=== PATIENT | female | born 1985 | race Caucasian/White ===

== ENCOUNTER 2023-05-24 09:55 | Outpatient (OUT) | payer MEDICARE, MEDICAID, SELFPAY ==
--- NOTE | 2023-05-24 10:14 | P.CN_ITS ---
Consult Note: HPI Data of Consult Patient: known to practice within the last 3 years Requesting Physician: Michelle Randhawa NP Primary Care Provider: CAITLYN SPARROW Consult Narrative Reason for consult: f/u Narrative: Marita Messina a pleasant 37 year old female presents for evaluation of chronic neck and back pain. Today rating pain 5-6/10. Patient has tried and failed OTC medications, home based exercise program and cervical traction. Patient would like to discuss repeat cervical RFA and further assess her back pain. cc:: CC: Michelle Randhawa NP Review of Systems ROS Status of ROS 10 or more systems reviewed and unremarkable except as noted in history and below Musculoskeletal Reports: back pain and neck pain Exam Constitutional Documenting provider has reviewed patient's vital signs: yes Common normals: no apparent distress, oriented x3, healthy appearing, alert and well nourished General appearance: cooperative HENMT Common normals: normocephalic, hearing grossly normal bilaterally and moist oral mucous membranes Head and scalp: normocephalic Eye Common normals: PERRL Pupil: PERRL Neck & C-Spine Common normals: full ROM General: normal visual inspection Cervical spine: pain with cervical ROM, paracervical muscle tenderness and trapezius muscle tenderness Other: pain with flexion extension and rotation axial neck pain without radiculopathy Chest Common normals: inspection of chest normal Respiratory Common normals: normal respiratory effort, no retractions and no use of accessory muscles Back & Pelvis Lumbar spine/lower back: ROM limited and straight leg raise negative bilaterally Other: bilateral facet loading positive no radiculopathy predominately axial back pain Back image (female): 1. Extremity Common normals: normal to inspection and full ROM Neuro Common normals: oriented x3, CN's II-XII intact bilaterally, moves all extremities, no focal motor deficits, no sensory deficits noted and deep tendon reflexes 2+ bilaterally Sensorium/orientation: alert Motor exam: strength 5/5 throughout and no movement abnormalities noted Psych Common normals: mental status grossly normal, thought process normal, cooperative, affect normal, speech normal and activity/motor behavior normal Speech: normal speech Thought process: normal thought process Results Additional Findings Additional findings: I have checked an [place] report on this patient today and there are no aberrancies noted in the prescribing history.?? A drug screen was completed and reviewed within the last year, and if there has not been a drug screen completed we ordered one today to monitor higher risk, state monitored pain medication use. As part of providing excellent, safe, comprehensive care, the following was completed at our patient's visit: 1. A medication reconciliation and review to ensure accurate knowledge of current/active medications, including asking our patients to inform us about any [id number] medications or herbal remedies/nutritional supplements/alternative remedies. 2. A review to specifically ensure our patients have had annual screening for: elevated body mass index (BMI), tobacco use, screening for depression, and sc reening for unhealthy alcohol use. When screening is concerning, patients are provided with education and the specific recommendation to discuss the concerning health issue and treatment options with their primary care provider. The patient has had over 3 months of moderate to severe neck pain with functional impairment and inadequate response to conservative care including NSAIDS (unless there are contraindication such as concurrent blood thinners), multiple oral or topical pain medications, and home exercise program/physical therapy.? Patient has completed >6 weeks of guided home exercise program and/or formal physical therapy program without relief of their symptoms.? The Oswestry Disability Index was completed, and the patient scored a 20%.? The patient noted the following:?? moderate pain, pain that prevents her from lifting heavy weights, pain that interferes with sleep and social life We discussed the risks and benefits of the procedure with the patient, and we are NOT planning on using sedation as outlined in the guidelines from Medicare unless there is a documented reason that sedation would be strongly recommended.?? ?The procedure will be completed with fluoroscopic guidance.? Assessment and Plan Assessment and Plan (1) History of depression: (2) BMI 31.0-31.9,adult: Assessment and Plan: The patient was counseled that proper dietary changes and consistent participation in a home exercise plan can lead to weight loss. Weight loss can help to improve functionality in patients with chronic pain.? (3) Neck pain: (4) Low back pain: (5) Cervical spondylosis: Assessment and Plan: has previously had bilateral C3/4 5/6 RFA with >50% pain relief and functional improvement for greater than 12 months and would like to repeat this procedure (6) Lumbar spondylosis: Plan update cervical and lumbar xray imaging start diclofenac 50mg BID pain, has previously tried ibuprofen and acetaminophen without relief start baclofen 10mg QD-BID PRN muscle spasms continue HEP and stretching repeat MBB at bilateral C3/4 5/6 for axial neck pain working towards thermal RFA f/u after procedure, consider lumbar facet blocks in the future
== END 2023-05-24 09:56 | disposition home or self-care (01) ==
LOC: PM 10:02
PROVIDERS: PCP Internal Medicine; Visit Provider Nurse Practitioner
DX: M54.2 Cervicalgia (principal); M54.50 Low back pain, unspecified; M47.812 Spondylosis without myelopathy or radiculopathy, cervical region; M47.816 Spondylosis without myelopathy or radiculopathy, lumbar region; F32.A Depression, unspecified
CPT/HCPCS: G0463

== ENCOUNTER 2023-07-02 07:27 | Day surgery (SDC) | payer MEDICARE, MEDICAID, SELFPAY ==
[2023-07-02 07:38] VITALS: BP 109/79; PULSE 73; RESP 16; TEMP 36.3; O2SAT 98
[2023-07-02 08:26] VITALS: BP 107/57; PULSE 66; RESP 16; O2SAT 99
[2023-07-02] MEDS: LIDOCAINE HCL 2% PF 100 MG/5 ML VIAL INJ (08:27)
[2023-07-02] MEDS: BUPIVACAINE HCL 0.25% PF 25 MG/10 ML VIAL INJ (08:27)
[2023-07-02] MEDS: DEXAMETHASONE SOD PHOS 10 MG/ML VIAL INJ (08:27)
[2023-07-02 08:29] VITALS: BP 104/66; PULSE 64; RESP 18; O2SAT 98
--- NOTE | 2023-07-02 08:30 | W.PM.PROCNOT ---
Date of procedure: 07/02/23 Pre-op diagnosis: Cervical spondylosis Post-op diagnosis: same as pre-op Procedure: Procedure: Bilateral C3/4, C5/6 medial branch block Medications: Bupivacaine 0.25% 4cc The patient was seen and examined in the preoperative holding area.? The informed consent was obtained and placed on the chart.? The patient was brought to the medical procedure unit and placed in the prone position.? A timeout was completed verifying correct patient, procedure site, positioning, plan, and special equipment.? Using aseptic technique, the needle was placed at left C3.? Under direct fluoroscopic visualization, a Quincke tip needle was advanced to the midpoint of the waist of the articular pillar at the respective medial branch segment. The above-mentioned injectate was placed in a 1 mL aliquot proceeded by negative aspiration.? The needle was removed.? The procedure was completed at all left C4, 5, 6. The same procedure, at the same levels, was then completed on the right side. Insertion site was covered.? Patient was taken to the postprocedural recovery area and monitored for an appropriate length of time before found suitable for discharge in the accompaniment of a responsible adult. Anesthesia: Local Surgeon: Sana Radford Pathology: none sent Condition: stable Disposition: no change
== END 2023-07-02 08:33 | disposition home or self-care (01) ==
PROVIDERS: PCP Internal Medicine; Visit Provider Anesthesiology
DX: M47.812 Spondylosis without myelopathy or radiculopathy, cervical region (principal)
CPT/HCPCS: 64490; 64491; J1100

== ENCOUNTER 2024-01-16 12:28 | Outpatient (OUT) | payer MEDICARE, MEDICAID, SELFPAY ==
--- NOTE | 2024-01-16 12:54 | P.CN_ITS ---
Consult Note: HPI Data of Consult Patient: known to practice within the last 3 years Requesting Physician: Michelle Randhawa NP Primary Care Provider: CAITLYN SPARROW Consult Narrative Reason for consult: f/u Narrative: Marita Messina a pleasant 37 year old female presents for evaluation of chronic neck and back pain. Today rating pain 5/10 in neck, 7/10 in low back. Patient has tried and failed OTC medications, home based exercise program and cervical traction. Patient reporting significant improvement in pain immediately following and hours after bilateral C3/4 C5/6 MBB #1 in June of 2023 but she lost insurance and could not f/u. Since that time her back pain has been the most aggravating factor, especially with ADLs and housework. Patient would like to trial lumbar facet blocks working towards RFA for axial low back pain, recent lumbar imaging consistent with lumbar spondylosis and minimal degenerative disc changes at L5-S1. Patient finds mild benefit to current medication regimen, failed diclofenac 50mg BID PRN. cc:: CC: Michelle Randhawa NP Review of Systems ROS Status of ROS 10 or more systems reviewed and unremark able except as noted in history and below Musculoskeletal Reports: back pain and neck pain PFSH PFSH Medical History (Updated 01/16/24 @ 12:58 by Michelle Randhawa NP) Anxiety ?F41.9 - Anxiety disorder, unspecified (ICD-10) Hiatal hernia ?K44.9 - Diaphragmatic hernia without obstruction or gangrene (ICD-10) Acid reflux ?K21.9 - Gastro-esophageal reflux disease without esophagitis (ICD-10) Pulmonary embolism ?I26.99 - Other pulmonary embolism without acute cor pulmonale (ICD-10) Asthma ?J45.909 - Unspecified asthma, uncomplicated (ICD-10) Surgical History History of surgical removal of Bartholin’s gland cyst ?Z98.890 - Other specified postprocedural states (ICD-10) ?Z87.42 - Personal history of other diseases of the female genital tract (ICD-10) History of eye surgery ?Z98.890 - Other specified postprocedural states (ICD-10) Brutus teeth extracted ?K08.409 - Partial loss of teeth, unspecified cause, unspecified class (ICD- 10) History of hernia repair ?Z98.890 - Other specified postprocedural states (ICD-10) ?Z87.19 - Personal history of other diseases of the digestive system (ICD-10) History of hysterectomy ?Z90.710 - Acquired absence of both cervix and uterus (ICD-10) Meds Home Medications and Allergies Home Medications ?Medication ?Instructions ?Recorded ?Confirmed ?Type albuterol sulfate 90 mcg/actuation 2 puff inhalation Q6H PRN 06/22/23 07/02/23 History aerosol inhaler shortness of breath or wheezing armodafinil 150 mg tablet (Nuvigil) 150 mg PO QAM 06/22/23 07/02/23 History buspirone 15 mg tablet 15 mg PO BID 06/22/23 07/02/23 History cariprazine 3 mg capsule (Vraylar) 3 mg PO DAILY 06/22/23 07/02/23 History erenumab-aooe 70 mg/mL 70 mg subcut 06/22/23 History subcutaneous auto-injector (Aimovig Autoinjector) fluoxetine 40 mg capsule (Prozac) 40 mg PO DAILY 06/22/23 07/02/23 History hydroxyzine pamoate 50 mg capsule 100 mg PO DAILY 06/22/23 07/02/23 History omeprazole 20 mg capsule,delayed 40 mg PO BID 06/22/23 07/02/23 History release primidone 250 mg tablet (Mysoline) 250 mg PO BID 06/22/23 07/02/23 History propranolol 20 mg tablet 20 mg PO Q12H 06/22/23 07/02/23 History rizatriptan 5 mg tablet 5 mg PO Q2H PRN migraine headache 06/22/23 07/02/23 History Allergies Allergy/AdvReac Type Severity Reaction Status Date / Time hydrocodone [From Vicodin] Allergy Hives Verified 06/22/23 11:16 Exam Narrative Exam Narrative: diffuse myofascial pain and tenderness Constitutional Documenting provider has reviewed patient's vital signs: yes Common normals: no apparent distress, oriented x3, healthy appearing, alert and well nourished General appearance: cooperative HENMT Common normals: normocephalic, hearing grossly normal bilaterally and moist oral mucous membranes Head and scalp: normocephalic Eye Common normals: PERRL Pupil: PERRL Neck & C-Spine Common normals: full ROM General: normal visual inspection Cervical spine: pain with cervical ROM, paracervical muscle tenderness and trapezius muscle tenderness Other: pain with flexion extension and rotation axial neck pain without radiculopathy Chest Common normals: inspection of chest normal Respiratory Common normals: normal respiratory effort, no retractions and no use of accessory muscles Back & Pelvis Lumbar spine/lower back: normal to inspection, ROM limited and straight leg raise negative bilaterally Other: bilateral facet loading positive tenderness over bilateral L4-5 L5-S1 facets no radiculopathy predominately axial back pain Extremity Common normals: normal to inspection and full ROM Neuro Common normals: oriented x3, CN's II-XII intact bilaterally, moves all extremities, no focal motor deficits, no sensory deficits noted and deep tendon reflexes 2+ bilaterally Sensorium/orientation: alert Motor exam: strength 5/5 throughout and no movement abnormalities noted Psych Common normals: mental status grossly normal, thought process normal, cooperative, affect normal, speech normal and activity/motor behavior normal Speech: normal speech Thought process: normal thought process Results Additional Findings Additional findings: If on a controlled substance or opioids, I have checked an [place] report on this patient and there are no aberrancies noted in the prescribing history.??If on a controlled substance or opioid a drug screen was completed and reviewed within the last year, and if there has not been a drug screen completed we ordered one today to monitor higher risk, state monitored pain medication use. As part of providing excellent, safe, comprehensive care, the following was completed at our patient's visit: 1. A medication reconciliation and review to ensure accurate knowledge of current/active medications, including asking our patients to inform us about any [id number] medications or herbal remedies/nutritional supplements/alternative remedies. 2. A review to specifically ensure our patients have had annual screening for screening for depression, screening for tobacco use, and screening for unhealthy alcohol use. For concerning screenings had a discussion with the patient, provided patient education, and recommended follow-up with primary care provider when appropriate. If patient noted with a risk of falling, they received education on strength, gait, and balance training to prevent future risk of falling. Assessment and Plan Assessment and Plan (1) Lumbar spondylosis: Assessment and Plan: The patient has had over 3 months of moderate to severe low back pain with functional impairment and inadequate response to conservative care including NSAIDS (unless there are contraindication such as concurrent blood thinners), multiple oral or topical pain medications, and home exercise program/physical therapy.? Patient has completed >6 weeks of guided home exercise program and/or formal physical therapy program without relief of their symptoms.? I have reviewed the imaging of the lumbar spine and no red flags were identified.? The imaging reveals radiographic findings consistent with lumbar spondylosis We discussed the risks and benefits of the procedure with the patient, and we are NOT planning on using sedation as outlined in the guidelines from Medicare unless there is a documented reason that sedation would be strongly recommended.?? The procedure will be completed with fluoroscopic guidance.? (2) Cervical spondylosis: (3) Chronic pain syndrome: (4) Myofascial pain syndrome: Plan bilateral L4-5 L5-S1 facet medial branch block x2 working towards RFA PT for myofascial pain syndrome/chronic pain syndrome TENS discussed and ordered increase baclofen 15mg BID PRN avoid NSAIDs worsens GERD f/u 1 week after each injection
== END 2024-01-16 12:29 | disposition home or self-care (01) ==
PROVIDERS: PCP Internal Medicine; Visit Provider Nurse Practitioner
DX: M47.816 Spondylosis without myelopathy or radiculopathy, lumbar region (principal); M47.812 Spondylosis without myelopathy or radiculopathy, cervical region; G89.4 Chronic pain syndrome; M79.18 Myalgia, other site
CPT/HCPCS: G0463

== ENCOUNTER 2024-01-28 08:07 | Day surgery (SDC) | payer MEDICARE, MEDICAID, SELFPAY ==
--- OUTSIDE RECORDS SUMMARY | 2024-01-28 08:22 | XMS_ITS | CCD ---
Author Organization [facility] Care Team Providers Care [employer] Name Role Phone BRADLEY SIMMONS Referring Unavailable Unavailable Primary Care Provider UnavailCaitlyn Huynh Primary Care Provider Karel Henry Unavailable Caitlyn Sparrow Primary Care Provider DR MUNIRA DEAL Attending Unavailable TOYIN, DR MUNIRA Avalos Consulting Unavailable KYARA, DR CAITLYN Griffiths Primary Care Unavail able TOYIN, DR MUNIRA Avalos Admitting Unavailable RONNIE, EVETTE Consulting Unavailable KYARA, DR CAITLYN Griffiths Primary Care Unavail able TOYIN, DR MUNIRA Avalos Attending Unavailable TOYIN, DR MUNIRA Avalos Consulting Unavailable TOYIN, DR MUNIRA Avalos Admitting Unavailable KYARA, DR CAITLYN Griffiths Primary Care Unavail able TOYIN, DR MUNIRA Avalos Consulting Unavailable TOYIN, DR MUNIRA Avalos Attending Unavailable TOYIN, DR MUNIRA Avalos Admitting Unavailable TOYIN, DR MUNIRA Avalos Attending Unavailable TOYIN, DR MUNIRA Avalos Consulting Unavailable KYARA, DR CAITLYN Griffiths Primary Care Unavail able TOYIN, DR MUNIRA Avalos Admitting Unavailable RONNIE, EVETTE Consulting Unavailable LUDA RODRIGUEZ Consulting Unavailable TOYIN, DR MUNIRA Avalos Admitting Unavailable TOYIN, DR MUNIRA Avalos Attending Unavailable KYARA, DR CAITLYN Griffiths Primary Care Unavail able TOYIN, DR MUNIRA vAalos Admitting Unavailable KYARA, DR CAITLYN Griffiths Primary Care Unavail able TOYIN, DR MUNIRA Avalos Attending Unavailable TOYIN, DR MUNIRA Avalos Consulting Unavailable KYARA, DR CAITLYN Griffiths Primary Care Unavail able TOYIN, DR MUNIRA Avalos Attending Unavailable RODRIGUEZ, LUDA Consulting Unavailable TOYIN, DR MUNIRA Avalos Admitting Unavailable TOYIN, DR MUNIRA Avalos Admitting Unavailable TOYIN, DR MUNIRA Avalos Attending Unavailable KYARA, DR CAITLYN Griffiths Primary Care Unavail able LUDA RODRIGUEZ Consulting Unavailable TOYIN, DR MUNIRA Avalos Attending Unavailable KYARA, DR CAITLYN Griffiths Primary Care Unavail able LUDA RODRIGUEZ Consulting Unavailable TOYIN, DR MUNIRA Avalos Admitting Unavailable Kyara, [facility] Provider Rosita RUSSO, Katharine Young Attending Ness vailable Kyara CLEMONS, [facility] Ness vailable Rosita RUSSO, Katharine Young Attending Ness vailable Kyara CLEMONS, [facility] Ness vailable Rosita RUSSO, Katharine Young Attending Ness vailable Kyara CLEMONS, [facility] Ness vailable Malina CLEMONS, Sana Doyle Attending Unavailable Kyara CLEMONS, [facility] Ness vailable Kyara CLEMONS, [facility] Ness vailable Rosita RUSSO, Katharine Young Attending Ness vailable Kyara CLEMONS, [facility] Ness vailable Weihrleeanne RUSSO, Dorcas Stewart Attending Unavai ge Becker PA-C, Katharine Young Attending Ness vailable Kyara CLEMONS, [facility] Ness vailable KYARA, [facility] Referring Unavailabl e KYARA, [facility] Primary Care UnavailLEONIDAS Grimaldo Referring Unavailable KYARA, [facility] Care UnavailLEONIDAS Grimaldo Referring Unavailable KYARA, [facility] Unavailabl e Allergies Allergy Classification Reported Allergen(s) Allergy Type Date of Onset Reaction(s) Facility (2 sources) Acetaminophen / HYDROcodone; Translations: [HYDROCODONE-ACETA MINOPHEN] Drug Allergy 10-09-2019 [place], [place] (9 sources) Acetaminophen / HYDROcodone; Translations: [Vicodin] Drug Allergy 09-10-2014 [facility] Repository Medications Current Medications Medication Drug Class(es) Dates Sig (Normalized) Sig (Original) Aimovig 140 MG/ML (6 sources) inject 140 mg by subcutaneous injection every month Aimovig 140 MG/ML as directed Subcutaneous monthly Active Albuterol (6 sources) beta2-Adrenergic Agonist Albuterol prn Active amitriptyline hydrochloride 100 mg oral tablet (9 sources) Tricyclic Antidepressant take 1 tablet by mouth at bedtime Amitriptyline HCl 100 MG take 1 tablet by mouth at bedtime for 30 Active take 1 tablet by mouth at bedtim e Amitriptyline HCl 50 MG take 1 tablet by mouth at bedtime for 30 Active 120 actuat budesonide 0.16 mg/actuat / formoterol fumarate 0.0045 mg/actuat metered dose inhaler (6 sources) Corticosteroid, beta2-Adrenergic Agonist take 2 puff(s) by inhalation twice daily Symbicort 160-4.5 MCG/ACT 2 puffs Inhalation Twice a day Active cariprazine 6 mg oral capsule (6 sources) Atypical Antipsychotic take 1 capsule by mouth every twenty-four hours Vraylar 6 MG 1 capsule Orally Once a day for 90 days Active take 1 capsule by mo uth every twenty-four hours Vraylar 4.5 MG 1 capsule Orally Once a day for 90 days Active cyclobenzaprine hydrochloride 5 mg oral tablet (1 source) Muscle Relaxant take 1 tablet by mouth twice daily as needed for muscle spasms cyclobenzaprine (FLEXERIL) 5 MG tablet Take 5 mg by mouth 2 times daily as needed for Muscle spasms 0 Active 0.3 ml enoxaparin sodium 100 mg/ml prefilled syringe (1 source) Low Molecular Weight Heparin enoxaparin (LOVENOX) 30 MG/0.3ML injection Inject 30 mg into the skin daily 0 Active 1 ml erenumab-aooe 140 mg/ml auto-injector (4 sources) Start: 023 End: 024 inject 140 mg by subcutaneous injection every month erenumab-aooe (AIMOVIG AUTOINJECTOR) 140 mg/mL auto-injector Indications: Intractable migraine without aura and without status migrainosus INJECT 140 MG SUBCUTANEOUSLY ONCE EVERY MONTH. 3 mL 3 10/25/2022 10/25/2023 Active Start: 05-30-2021 End: 05-30-2022 inject 140 mg by subcutaneous injection every month erenumab-aooe (AIMOVIG AUTOINJECTOR) 140 mg/mL auto-injector Indications: Intractable migraine without aura and without status migrainosus INJECT 140 MG SUBCUTANEOUSLY ONCE EVERY MONTH. 3 mL 3 05/30/2021 05/30/2022 Active Comment on above: INJECT 140 MG SUBCUT ANEOUSLY ONCE EVERY MONTH. Erenumab-aooe (AIMOVIG SC) (1 source) FLUoxetine 10 mg oral capsule (13 sources) Serotonin Reuptake Inhibitor Start: 2 take 1 capsule by mouth every twenty-four hours FLUoxetine HCl 10 MG 1 capsule Orally Once a day for 30 day(s) 40 mg in am and 10 mg at noon Dec, Active Start: 11-20-2018 take 1 capsule by mo [facility] once daily FLUoxetine HCl (PROZAC) 40 mg capsule Take 40 mg by mouth once daily. 0 11/20/2018 Active Comment on above: Take 40 mg by mouth once daily. hydrOXYzine hydrochloride 10 mg oral tablet (4 sources) Antihistamine hydrOXYzine HCl 10 MG as directed Orally every 8 hrs for 30 days Active levothyroxine sodium 0.075 mg oral tablet (1 source) l-Thyroxine take 1 tablet by mouth once daily levothyroxine (SYNTHROID) 75 MCG tablet Take 75 mcg by mouth Daily 0 Active LORazepam 0.5 mg oral tablet (6 sources) Benzodiazepine Start: 10-19-19 22 take 1 tablet by mouth every twenty-four hours Ativan 0.5 MG 1 tablet at bedtime as needed Orally Once a day for 10 days f41.1 Oct, Active take 1 tablet by [facility] every twenty-four hours Ativan 0.5 MG 1 tablet at bedtime as needed Orally Once a day for 30 days f41.1 Active melatonin 3 mg oral tablet (1 source) take 10 mg by mouth once daily at bedtime melatonin 3 MG TABS tablet Take 10 mg by mouth daily Take 10 mg at bedtime 0 Active nicotine 2 mg chewing gum (6 sources) Cholinergic Nicotinic Agonist Nicotine Polacrilex 2 MG 1 piece for 30 minute as needed Mouth/Throat 24 time(s) a day for 30 days Active Nicotine Polacri boogie 2 MG 1 piece for 30 minute as needed Mouth/Throat 24 time(s) a day for 30 days Active ondansetron 4 mg oral tablet (6 sources) Serotonin-3 Receptor Antagonist Start: 05-25-2021 take 1 tablet by mouth once daily Zofran ODT 4 MG 1 tablet on the tongue and allow to dissolve Orally Once a day for 30 day(s) May, Active traZODone hydrochloride 50 mg oral tablet (1 source) Serotonin Reuptake Inhibitor take 1 tablet by mouth once daily as needed traZODone (DESYREL) 50 MG tablet Take 50 mg by mouth nightly As needed at bedtime 0 Active Completed/Discontinued Medications Medication Drug Class(es) Dates Sig (Normalized) Sig (Original) armodafinil 200 mg oral tablet (11 sources) Start: 10-25-2022 End: 06-07-2023 take 1 tablet by mouth once daily armodafinil (NUVIGIL) 200 mg tab Indications: Daytime sleepiness , Narcolepsy without cataplexy Take 1 tablet by mouth once daily for 90 days. 30 tablet 2 03/09/2023 Active Start: 05-25-2022 End: 08-23-2022 take 1 tablet by mouth once daily armodafinil (NUVIGIL) 200 mg tab Indications: Daytime sleepiness , Narcolepsy without cataplexy Take 1 tablet by mouth once daily for 90 days. 30 tablet 2 05/25/2022 08/23/2022 Active Start: 10-20-2021 End: 01-18-2022 take 1 tablet by mouth once daily armodafinil (NUVIGIL) 200 mg tab Indications: Daytime sleepiness , Narcolepsy without cataplexy Take 1 tablet by mouth once daily for 90 days. 30 tablet 2 10/20/2021 01/18/2022 Active Comment on above: Take 1 tablet by anu th once daily for 90 days. baclofen 10 mg oral tablet (10 sources) gamma-Aminobutyric Acid-ergic Agonist Start: 11-25-2018 take 1 tablet by mouth three times daily baclofen (LIORESAL) 10 mg tablet Indications: Spasm of muscle , Neck muscle spasm , Excessive physiologic tremor , Hypertonia , Intractable migraine without aura and without status migrainosus Take 1 tablet by mouth three times daily. 90 tablet 5 11/25/2018 Active take 1 tablet by anu th every twenty-four hours Baclofen 10 MG 1 tablet Orally Once a day Active take 1 tablet by anu th every twenty-four hours Baclofen 5 MG 1 tablet Orally Once a day Active Comment on above: Take 1 tablet by anu th three times daily. biotin 10 mg oral capsule (4 sources) Start: 9 Biotin 10,000 mcg cap 12 hr buPROPion hydrochloride 150 mg extended release oral tablet (4 sources) Aminoketone Start: 9 buPROPion SR (ZYBAN SR; WELLBUTRIN SR) 150 mg 12 hr tablet doxycycline hyclate 100 mg oral capsule (6 sources) Tetracycline-class Drug take 1 capsule by mouth every twenty-four hours Doxycycline Hyclate 100 MG 1 capsule Orally Once a day Not-Taking lithium carbonate 450 mg extended release oral tablet (4 sources) Start: 9 take 1 tablet by mouth twice daily lithium carbonate ER 450 mg CR tablet Take 450 mg by mouth twice daily. 0 11/20/2018 Active Comment on above: Take 450 mg by mouth twice daily. omeprazole 40 mg delayed release oral capsule (11 sources) Proton Pump Inhibitor Start: 9 take 1 capsule by mouth once daily Omeprazole 40 mg capsule take 1 capsule by mouth once daily as directed 0 11/07/2018 Active take 1 capsule by mouth twice da lubna Omeprazole 40 MG 1 capsule 30 minutes before morning meal Orally twice a day Not-Taking take 2 capsules by mouth once da lubna omeprazole (PRILOSEC) 20 MG delayed release capsule Take 40 mg by mouth daily 0 Active Comment on above: take 1 capsule by [facility] once daily as directed perphenazine 2 mg oral tablet (5 sources) Phenothiazine Start: 11-21-19 19 take 1 tablet by mouth twice daily perphenazine 2 mg tablet Take 2 mg by mouth twice daily. 0 11/20/2018 Active Comment on above: Take 2 mg by mouth t wice daily. phentermine hydrochloride 37.5 mg oral tablet (4 sources) Sympathomimetic Amine Anorectic take 1 tablet by mouth every twenty-four hours Adipex-P 37.5 MG 1 tablet Orally Once a day Not-Taking primidone 250 mg oral tablet (12 sources) Anti-epileptic Agent Start: 10-25-19 23 primidone (MYSOLINE) 250 mg tablet Indications: Excessive physiologic tremor take 0.5 tablet every morning and 1 tablet every evening 45 tablet 5 10/25/2022 Active Start: 07-05-2021 End: 01-09-2022 primidone (MYSOLINE) 250 mg tablet Indications: Excessive physiologic tremor take 0.5 tablet every morning and 1 tablet every evening 45 tablet 5 01/10/2022 Active take 1 tablet by anu th every twelve hours Primidone 250 MG 1 tablet Orally Twice a day 1/2 am 1 tab qhs Active take 1 tablet by anu th twice daily primidone (MYSOLINE) 250 MG tablet Take 250 mg by mouth 2 times daily Morning and at night 0 Active Comment on above: take 0.5 tablet ever y morning and 1 tablet every evening propranolol hydrochloride 10 mg oral tablet (11 sources) beta-Adrenergic Gianni take 1 tablet by mouth three times daily propranolol (INDERAL) 10 mg tablet Take 10 mg by mouth three times daily. 0 Active take 1 tablet by anu th every twelve hours Propranolol HCl 20 MG 1 tablet Orally Tw ice a day for 90 day(s) Active take 1 tablet by mouth twice bryanna ly propranolol (INDERAL) 10 MG tablet Take 10 mg by mouth 2 times daily 0 Active Comment on above: Take 10 mg by mouth three times daily. rizatriptan 5 mg oral tablet (11 sources) Serotonin-1b and Serotonin-1d Receptor Agonist Start: 11-09-2020 take 1 tablet by mouth every two hours as needed rizatriptan (MAXALT) 5 mg tablet Indications: Intractable migraine without aura and without status migrainosus Take 1 tablet by mouth as needed. May repeat in 2 hours if needed 9 tablet 2 11/09/2020 Active take 1 tablet by anu th every twenty-four hours Maxalt 10 MG 1 tablet Orally Once a day 5 mg PRN Active rizatriptan (MAX ALT) 5 MG tablet Take 5 mg by mouth once as needed for Migraine May repeat in 2 hours if needed 0 Active Comment on above: Take 1 tablet by anu th as needed. May repeat in 2 hours if needed Problems Active Problems Problem Classification Problem Date Documented Date Episodic/Chronic Coma; stupor; and brain damage (3 sources) Daytime somnolence; Translations: [Somnolence] Episodic Malaise and fatigue (1 source) Other fatigue; Translations: [Other fatigue] Onset: 11-30-2023 Episodic Mood disorders (6 sources) Bipolar disorder; Translations: [Bipolar disorder, unspecified] Chronic Nutritional deficiencies (1 source) Vitamin D deficiency, unspecified; Translations: [Vitamin D deficiency, unspecified] Onset: 11-30-2023 Chronic Other connective tissue disease (5 sources) Other muscle spasm; Translations: [OTHER MUSCLE SPASM] Onset: 09-22-2021 Episodic Other nervous system disorders (3 sources) Narcolepsy without cataplexy ; 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] Chronic Other nervous system disorders (1 source) Chronic pain syndrome; Translations: [Chronic pain syndrome] Onset: 01-23-2024 Chronic Other nervous system disorders (1 source) Enhanced physiological tremor; Translations: [Tremor, unspecified] Episodic Other nutritional; endocrine; and metabolic disorders (1 source) Abnormal weight gain; Translations: [Abnormal weight gain] Onset: 11-30-2023 Episodic Spondylosis; intervertebral disc disorders; other back problems (8 sources) Other spondylosis with radiculopathy, cervical region; Translations: [Spondylosis without myelopathy or radiculopathy, cervical region] Onset: 09-22-2021 Chronic Unclassified (1 source) CONTACT W/AND (SUSP) EXPOS COVID-19; Translations: [CONTACT W/AND (SUSP) EXPOS COVID-19] Onset: 10-11-2021 Past or Other Problems Problem Classification Problem Date Documented Da te Episodic/Chronic Spondylosis; intervertebral disc disorders; other back problems (9 sources) Cervical disc disorder with radiculopathy, unspecified cervical region; Translations: [Cervicalgia] Onset: 10-13-2021 Episodic Results Test Name Value Interpretation Reference Range Facil ity XR LUMBAR SPINE AP, LATERAL, FLEXION AND EXTENSION ONLYon 12-03-2023 XR LUMBAR SPINE AP, LATERAL, FLEXION AND EXTENSION ONLY XR LUMBAR SPINE AP, LATERAL, FLEXION AND EXTENSION ONLY Lumbosacral spine: 11/30/2023 9:44 AM. Reason for study: Lumbar spondylosis. Comparison: CT abdomen pelvis from 01/10/2022. Technique: AP, lateral, and flexion/extension lateral views of the lumbosacral spine were obtained. Findings: There are 5 nonrib-bearing vertebrae in the lumbar spine. Sacroiliac joints are unremarkable. Vertebral body heights are well-maintained. Minimal L5-S1 intervertebral disc space height loss. No spondylolisthesis. No acute fracture. Impression: No acute fracture or spondylolisthesis. Finalized by Awais Chun MD on 12/03/2023 10:04 AM Normal [facility] XR SPINE CERVICAL 3 VWS OR L ESSon 12-02-2023 XR SPINE CERVICAL 3 VWS OR LESS XR SPINE CERVICAL 3 VWS OR LESS HISTORY: Neck pain TECHNIQUE: Frontal lateral and odontoid views of the cervical spine were obtained. . COMPARISON: 05/16/2019. FINDINGS: A slight reversal the normal lordotic curvature is again demonstrated. Mild disc space narrowing at C5-6 is again seen. The vertebral heights and remaining disc spaces are well-maintained. There is no evidence for an acute osseous adenopathy. IMPRESSION: Stable disc space narrowing at C5-6 and reversal of the normal lordotic curvature, unchanged from the previous examination dated 05/16/2019.. Finalized by Jesse Jay MD on 12/02/2023 7:06 AM Normal [facility] CBC AND AUTO DIFFon 11-30-19 ABSOLUTE BASOPHIL 0.0 X10E9/L Normal 0.0-0.2 [facility] Comment on above: Performed By: #### C EVIN, 68815-8, THYR, CBCA, 63444-9 #### [facility] ([id number]) [address], [address] [place] [address] ABSOLUTE NEUTROPHIL 2.5 X10E9/L Normal 1.5-6.6 [facility] Comment on above: Performed By: #### C EVIN, 27022-5, THYR, CBCA, 13398-0 #### [facility] ([id number]) [address], [address] [place] [address] Basophils/100 WBC (Bld) 0.5 % Normal [facility] Comment on above: Performed By: #### C EVIN, 63344-6, THYR, CBCA, 98199-8 #### [facility] ([id number]) [address], [address] [place] [address] Eosinophils (Bld) [#/Vol] 0.0 10*3/uL Normal 0.0-0.4 [facility] Comment on above: Performed By: #### C MP, 19171-5, THYR, CBCA, 61441-4 #### [facility] ([id number]) [address] [address] [place] [address] Eosinophils/100 WBC (Bld) 1.2 % Normal [facility] Comment on above: Performed By: #### C EVIN, 08135-1, THYR, CBCA, 56107-8 #### [facility] ([id number]) [address], [facility] [address] [place] [address] Erythrocyte distribution width (RBC) [Ratio] 13.7 % Normal 11.5-15.0 [facility] Comment on above: Performed By: #### C EVIN, 43700-5, THYR, CBCA, 99965-0 #### [facility] ([id number]) [address] [address] [place] [address] Hematocrit (Bld) [Volume fraction] 43.0 % Normal 35-47 [facility] Comment on above: Performed By: #### C EVIN, 54353-3, THYR, CBCA, 04180-9 #### [facility] ([id number]) [address] [place] [address] Hemoglobin (Bld) [Mass/Vol] 15.0 g/dL Normal 11.7-15.5 [facility] Comment on above: Performed By: #### C EVIN, 66695-0, THYR, CBCA, 49577-1 #### [facility] ([id number]) [address] [address] [place] [address] Lymphocytes (Bld) [#/Vol] 0.9 10*3/uL Low 1.0-3.5 [facility] Comment on above: Performed By: #### C EVIN, 87267-7, THYR, CBCA, 94146-6 #### [facility] ([id number]) [address] [address] [place] [address] Lymphocytes/100 WBC (Bld) 23.6 % Normal [facility] Comment on above: Performed By: #### C EVIN, 55866-2, THYR, CBCA, 43559-8 #### [facility] ([id number]) [address] [address] [place] [address] MCH (RBC) [Entitic mass] 32.2 pg Normal 27-34 [facility] Comment on above: Performed By: #### C EVIN, 18595-9, THYR, CBCA, 46791-3 #### [facility] ([id number]) [address] [address] [place] [address] MCHC (RBC) [Mass/Vol] 35.0 g/dL Normal 32-36 [facility] Comment on above: Performed By: #### Mariam CLEARY, 33028-2, THYR, CBCA, 88639-7 #### [facility] ([id number]) [address] [place] [address] MCV (RBC) [Entitic vol] 92 fL Normal 80-100 [facility] Comment on above: Performed By: #### Mariam CLEARY, 47872-5, THYR, CBCA, 58906-6 #### [facility] ([id number]) [address] [place] [address] Monocytes (Bld) [#/Vol] 0.3 10*3/uL Normal 0-0.9 [facility] Comment on above: Performed By: #### C EVIN, 89567-5, THYR, CBCA, 57768-1 #### [facility] ([id number]) [address] [address] [place] [address] Monocytes/100 WBC (Bld) 7.0 % Normal [facility] Comment on above: Performed By: #### Mariam CLEARY, 68930-3, THYR, CBCA, 13282-6 #### [facility] ([id number]) [address] [address] [place] [address] Neutrophils/100 WBC (Bld) 67.7 % Normal [facility] Comment on above: Performed By: #### C MP, 87395-4, THYR, CBCA, 88177-4 #### [facility] ([id number]) [address] [address] [place] [address] Platelet mean volume (Bld) [Entitic vol] 8.7 fL Normal 7-12 [facility] Comment on above: Performed By: #### C MP, 70503-4, THYR, CBCA, 58798-0 #### [facility] ([id number]) [address] [address] [place] [address] Platelets (Bld) [#/Vol] 186 10*3/uL Normal 150-450 [facility] Comment on above: Performed By: #### C MP, 67169-4, THYR, CBCA, 68601-5 #### [facility] ([id number]) [address] [address] [place] [address] RBC COUNT 4.67 X10E12/L Normal 3.80-5.20 [facility] Comment on above: Performed By: #### C MP, 82510-1, THYR, CBCA, 36558-6 #### [facility] ([id number]) [address] [address] [place] [address] WBC (Bld) [#/Vol] 3.7 10*3/uL Low 4.0-11.0 [facility] Comment on above: Performed By: #### C MP, 96756-2, THYR, CBCA, 27378-7 #### [facility] ([id number]) [address] [address] [place] [address] COMPREHENSIVE METABOLIC PANE Mika 11-30-2023 Albumin [Mass/Vol] 4.4 g/dL Normal 3.2-5.3 [facility] Comment on above: Performed By: #### C EVIN, 44509-2, THYR, CBCA, 46525-9 #### [facility] ([id number]) [address], [address] [place] [address] ALP [Catalytic activity/Vol] 65 U/L Normal 39-130 [facility] Comment on above: Performed By: #### C MP, 06356-0, THYR, CBCA, 37175-9 #### [facility] ([id number]) [address], [address] [place] [address] ALT [Catalytic activity/Vol] 59 U/L High 0-31 [facility] Comment on above: Performed By: #### C EVIN, 85413-7, THYR, CBCA, 51946-6 #### [facility] ([id number]) [address], [address] [place] [address] Anion gap [Moles/Vol] 6 mmol/L Normal 5-15 [facility] Comment on above: Performed By: #### C EVIN, 13031-0, THYR, CBCA, 34978-2 #### [facility] ([id number]) [address] [place] [address] AST [Catalytic activity/Vol] 31 U/L Normal 0-41 [facility] Comment on above: Performed By: #### C MP, 00991-1, THYR, CBCA, 06420-2 #### [facility] ([id number]) [address], [address] [place] [address] Bilirubin [Mass/Vol] 0.8 mg/dL Normal 0.3-1.2 [facility] Comment on above: Performed By: #### C EVIN, 26411-0, THYR, CBCA, 64179-0 #### [facility] ([id number]) [address] [address] [place] [address] Calcium [Mass/Vol] 9.1 mg/dL Normal 8.5-10.5 [facility] Comment on above: Performed By: #### C MP, 11453-4, THYR, CBCA, 35297-7 #### [facility] ([id number]) [address] [address] [place] [address] Chloride [Moles/Vol] 103 mmol/L Normal 98-109 [facility] Comment on above: Performed By: #### C EVIN, 96793-3, THYR, CBCA, 05034-2 #### [facility] ([id number]) [address] [place] [address] CO2 [Moles/Vol] 28 mmol/L Normal 22-32 [facility] Comment on above: Performed By: #### C EVIN, 12285-5, THYR, CBCA, 49443-8 #### [facility] ([id number]) [address] [address] [place] [address] Creatinine [Mass/Vol] 0.86 mg/dL Normal 0.40-1.00 [facility] Comment on above: Result Comment: METH OD TRACEABLE TO IDMS STANDARD Performed By: #### [place], 62878-5, THYR, CBCA, 85519-4 #### [facility] ([id number]) [address] [place] [address] GFR/1.73 sq M.predicted among non-blacks MDRD (S/P/Bld) [Vol rate/Area] 89 mL/min/{1.73_m2} Normal >59 [facility] Comment on above: Result Comment: Reported eGFR is based on the CKD-EPI 2020 equation that does not use a race coefficient. Performed By: #### C MP, 72987-8, THYR, CBCA, 22944-9 #### [facility] ([id number]) [address], [address] [place] [address] Glucose [Mass/Vol] 97 mg/dL Normal 65-99 [facility] Comment on above: Performed By: #### C EVIN, 23373-7, THYR, CBCA, 49809-0 #### [facility] ([id number]) [address], [address] [place] [address] Potassium [Moles/Vol] 3.8 mmol/L Normal 3.5-5.0 [facility] Comment on above: Performed By: #### C EVIN, 84537-4, THYR, CBCA, 30924-7 #### [facility] ([id number]) [address], [address] [place] [address] Protein [Mass/Vol] 6.6 g/dL Normal 6.0-8.0 [facility] Comment on above: Performed By: #### Mariam CLEARY, 71803-5, THYR, CBCA, 63047-7 #### [facility] ([id number]) [address] [place] [address] Sodium [Moles/Vol] 137 mmol/L Normal 134-146 [facility] Comment on above: Performed By: #### C EVIN, 56832-7, THYR, CBCA, 23434-0 #### [facility] ([id number]) [address] [place] [address] Urea nitrogen [Mass/Vol] 9 mg/dL Normal 5-23 [facility] Comment on above: Performed By: #### C EVIN, 92175-9, THYR, CBCA, 10535-2 #### [facility] ([id number]) [address] [place] [address] Lipid 1996 panelon 4 Cholesterol [Mass/Vol] 236 mg/dL High 150-200 [facility] Comment on above: Performed By: #### C EVIN, 14088-0, THYR, CBCA, 09149-7 #### [facility] ([id number]) [address] [place] [address] Cholesterol in HDL [Mass/Vol] 48 mg/dL Normal >39 [facility] Comment on above: Result Comment: HDL <40 mg/dL - High Risk HDL > or = 40mg/dL- Desirable HDL >60 mg/dL - Negative Risk Performed By: #### Mariam CLEARY, 31732-1, THYR, CBCA, 85992-8 #### [facility] ([id number]) [address] [place] [address] Cholesterol in LDL [Mass/Vol] 124 mg/dL Normal <130 [facility] Comment on above: Result Comment: LDL <100 mg/dL - Desirable LDL >160 mg/dL - High Risk Performed By: #### Mariam CLEARY, 61738-6, THYR, CBCA, 31651-9 #### [facility] ([id number]) [address] [place] [address] Cholesterol in VLDL [Mass/Vol] 64 mg/dL High 0-30 [facility] Comment on above: Performed By: #### Mariam CLEARY, 45637-4, THYR, CBCA, 60527-6 #### [facility] ([id number]) [address] [place] [address] CHOLESTEROL:HDL 4.9 Normal 1.0-5.0 [facility] Comment on above: Performed By: #### Mariam CLEARY, 05758-1, THYR, CBCA, 13260-1 #### [facility] ([id number]) [address] [place] [address] Triglyceride [Mass/Vol] 318 mg/dL High 27-150 [facility] Comment on above: Performed By: #### C EVIN, 18063-3, THYR, CBCA, 30820-9 #### [facility] ([id number]) [address] [place] [address] THYROID PROFILEon 11-30-2023 Free T4 [Mass/Vol] 0.62 ng/dL Normal 0.61-1.60 [facility] Comment on above: Performed By: #### C EVIN, 44816-5, THYR, CBCA, 56258-9 #### [facility] ([id number]) [address] [place] [address] TSH 0.97 uIU/mL Normal 0.49-4.67 [facility] Comment on above: Performed By: #### C EVIN, 30028-2, THYR, CBCA, 78867-4 #### [facility] ([id number]) [address] [place] [address] Vitamin D+Metabolites [Mass/ Vol]on 11-30-2023 VITAMIN D 25 HYD TOT 25.5 ng/mL Low 30-100 [facility] Comment on above: Result Comment: Vitamin D status 25 [place] Vitamin D Deficiency <20 ng/mL Insufficiency 20-29 ng/mL Sufficiency 30-100 ng/mL Toxicity >100 ng/mL NOTE: A pediatric reference range has not been established by the quality improvement manager of this kit. The [place] [employer] recommends a Vitamin D level of = or >20ng/mL in infants and children. Performed By: #### C EVIN, 85105-2, THYR, CBCA, 87400-6 #### [facility] ([id number], [address] [place] [address] Affirm DNA Panelon 3 Anabelle DNA Negative Normal Negative [facility] Comment on above: Result Comment: The AffirmVPII Microbial Identification Test is a nucleic acid hybridization test for the detection of Anabelle species, Gardnerella vaginalis and Trichomonas vaginalis nucleic acid in the vaginal fluid specimens from patients with symptoms of vaginitis/vaginosis. A positive result for Anabelle, Gardnerella, and/or Trichomonas vaginalis means nucleic acid is present in the sample and indicates that the patient has candidiasis, bacterial vaginosis, and/or trichomoniasis when consistent with clinical signs and symptoms. A negative result for Anabelle, Gardnerella, or Trichomonas tests suggests the patient does not have candidiasis, bacterial vaginosis and/or trichomonas, respectively, when consistent with clinical signs and symptoms. Results should be interpreted in conjunction with other clinical and laboratory data available to the clinician such as pH, amine odor, and vaginal discharge characterisitics. Simultaneous infections by more than one organism are common. Performed By: #### C [id number] #### [place] [address] Gardnerella DNA Positive Abnormal Negative [facility] Comment on above: Performed By: #### C [id number] #### [place] [address] Trichomonas DNA Negative Normal Negative [facility] Comment on above: Performed By: #### C [id number] #### [place] [id number] Gynecology Office/Clinic Not freddie 11-03-2022 Gynecology Office/Clinic Note Chief Complaint 37 y/o, , , Abnormal vaginal discharge and odor, History of Present Illness Pelvic Pain: No Painful Sex: No Abnormal Vaginal Discharge: Yes Abnormal Vaginal Bleeding: No Vaginal Dryness: No Vaginal Itch: No Vaginal Burning: No Vaginal Odor: Yes Hot Flashes: No Night Sweats: No Breast Lump: No Breast Pain: No Contraception Type: Intrauterine device, Vasectomy Sexually Active: Yes Date You Last Had Sex: 4 weeks ago Partners in Last 30 Days: 1 Partners in Last 12 Months: 1 Partners in Your Lifetime: 10 Kinds of Sex: Vaginal Forced to Have Sex: No Partner Had More Than 1 Partner: Yes Partner IV Drug Use: No Consistently Use Condoms: No Comments 11/03/22 12:27:00 37 y/o, , , Abnormal vaginal discharge and odor. +BV last month and symptoms returned after Flagyl. Used Metrogel and they returned again. Feels like symptoms increase after intercourse. Does use soap to labia daily. No bowel/bladder complaints. Review of Systems Ears, Nose, Throat Congestion: No Vertigo: No Sore throat: No Nasal drainage: No Cardio Respiratory Peripheral edema: No Heart Irregularity: No Chest Pain: No Shortness of Breath: No Gastrointestinal Bloating: No Reflux/heartburn: No Abdominal Pain: No Change in bowel habits: No Physical Exam Vitals & Measurements BP: 112/80 HT: 160 cm WT: 75.9 kg WT: 75.9 kg (Dosing) BMI: 29.65 General: Alert and oriented, well nourished, no acute distress. Lungs: Clear to auscultation and percussion, non-labored respiration. Heart: Normal rate, regular rhythm, no murmur, gallop or edema. Abdomen: Soft, non-tender, non-distended, normal bowel sounds, no masses. Neurologic: Awake, alert, and oriented X3, CN II-XII intact. Psychiatric: Cooperative, appropriate mood and affect. External Genitalia: Normal urethral meatus, no lesions, vulvar skin intact. Genitourinary: Normal vaginal mucosa, no lesions +abnormal discharge, cervix intact without lesions or bleeding. No cystocele or rectocele. Bimanual exam: Normal sized, non-tender, mobile uterus. No adnexal tenderness or masses. Additional Vitals BP Position/Location: Sitting, Right arm Assessment/Plan 1. Vaginal discharge Affirm pending. We will prophylactically start Metrogel and use x 5 night and then once weekly for 12 weeks. Discussed potential to use after intercourse in future if needed. Discussed probiotic as well. She will f/u as scheduled for annual exam with Dorcas and call with any questions/problems prior to next appt. Clothing and laundry - Wear white cotton underwear - Do not wear pantyhose (wear thigh-high or knee-high hose instead) - Wear loose-fitting pants or skirts - Remove wet bathing suits and exercise clothing promptly - Use dermatologically approved detergent - Do not use fabric softener on undergarments Hygiene - Use soft, white, unscented toilet paper - Use lukewarm or cool sitz baths to relieve burning and irritation - Avoid getting shampoo on the vulvar area - Do not use bubble bath, feminine hygiene products, or any perfumed creams or soaps - Wash the vulva with cool to lukewarm water only - Rinse the vulva with water after urination - Urinate before the bladder is full - Prevent constipation by adding fiber to your diet (if necessary, use a psyllium product) and drinking at least eight glasses of water daily - Use 100% cotton menstrual pads and tampons 2. Vaginal odor Orders: metroNIDAZOLE topical, See Instructions, 1 nabeel VAG HS (at bedtime) 5 days, then once weekly for 12 weeks, # 70 g, 1 Refill(s), Pharmacy: [facility] #[id number] Affirm DNA Panel Medical Decision Making Chronic conditions NOT treated during this visit that affected my overall medical decision making: none Treatment plans discussed but not opted for at this time: no Prescribed medication that requires intensive monitoring for toxicity: no I have reviewed the patient?s medication list for medication interactions/contraind ications and/or for upcoming procedures: no Time Spent with the Patient I have personally spent 25 minutes on this date, directly related to today's patient visit, including pre and post visit work, for this date of service. Time listed does not include time spent on separately billable services. 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 Normal [facility] Chlam & GC, DNAon 09-14-2022 Chlamydia, DNA Negative Normal Negative [facility] Comment on above: Result Comment: The APTIMA Combo 2 Assay is a target amplification nucleic acid probe test that utilizes target capture for the in-vitro qualitative detection of ribosomal RNA (rRNA) form Chlamydia trachomatis/CT and /or Neisseria gonorrhoeae/GC. A negative result does not preclude the presence of a CT or GC infection because results are dependent of adequate specimen collection, absence of inhibitors and sufficient rRNA to be detected. Results from the APTIMA Combo 2 Assay should be interpreted in conjunction with other laboratory and clinical data available to the clinician. Performed By: #### C [id number] #### [address] [address] Gonorrhea, DNA Negative Normal Negative [facility] Comment on above: Result Comment: The APTIMA Combo 2 Assay is a target amplification nucleic acid probe test that utilizes target capture for the in-vitro qualitative detection of ribosomal RNA (rRNA) form Chlamydia trachomatis/CT and /or Neisseria gonorrhoeae/GC A negative result does not preclude the presence of a CT or GC infection because results are dependent of adequate specimen collection, absence of inhibitors and sufficient rRNA to be detected. Results from the APTIMA Combo 2 Assay should be interpreted in conjunction with other laboratory and clinical data available to the clinician. Performed By: #### C [id number] #### [address] [address] Affirm DNA Panelon 3 Anabelle DNA Negative Normal Negative [facility] Comment on above: Result Comment: The AffirmVPII Microbial Identification Test is a nucleic acid hybridization test for the detection of Anabelle species, Gardnerella vaginalis and Trichomonas vaginalis nucleic acid in the vaginal fluid specimens from patients with symptoms of vaginitis/vaginosis. A positive result for Anabelle, Gardnerella, and/or Trichomonas vaginalis means nucleic acid is present in the sample and indicates that the patient has candidiasis, bacterial vaginosis, and/or trichomoniasis when consistent with clinical signs and symptoms. A negative result for Anabelle, Gardnerella, or Trichomonas tests suggests the patient does not have candidiasis, bacterial vaginosis and/or trichomonas, respectively, when consistent with clinical signs and symptoms. Results should be interpreted in conjunction with other clinical and laboratory data available to the clinician such as pH, amine odor, and vaginal discharge characterisitics. Simultaneous infections by more than one organism are common. Performed By: #### C [id number] #### [address] [address] Gardnerella DNA Positive Abnormal Negative [facility] Comment on above: Performed By: #### C [id number] #### [address] [address] Trichomonas DNA Negative Normal Negative [facility] Comment on above: Performed By: #### C [id number] #### [place] [id number] Gynecology Office/Clinic Not freddie 09-13-2022 Gynecology Office/Clinic Note Chief Complaint cyst History of Present Illness Pelvic Pain: No Painful Sex: No Abnormal Vaginal Discharge: No Abnormal Vaginal Bleeding: No Vaginal Dryness: No Vaginal Itch: No Vaginal Burning: No Vaginal Odor: Yes Hot Flashes: No Night Sweats: No Breast Lump: No Breast Pain: No Contraception Type: Intrauterine device, Vasectomy Sexually Active: Yes Date You Last Had Sex: 4 weeks ago Partners in Last 30 Days: 1 Partners in Last 12 Months: 1 Partners in Your Lifetime: 10 Kinds of Sex: Vaginal Forced to Have Sex: No Partner Had More Than 1 Partner: Yes Partner IV Drug Use: No Consistently Use Condoms: No Comments 09/13/22 14:16:00 37 y/o , , c/o right labia cyst x 3 days causing pain. Now she notices odor and itching. +warmth to area and has doubled in size over the weekend. +discharge with wiping and yellow to white. She has known Bartholin cyst and wasn't bothering her in past and conservatively managed. +hx BV and thinks she may have again. Wants GC/CHL screening as well-new partner. No bowel/bladder complaints. Review of Systems Ears, Nose, Throat Congestion: No Vertigo: No Sore throat: No Nasal drainage: No Cardio Respiratory Peripheral edema: No Heart Irregularity: No Chest Pain: No Shortness of Breath: No Gastrointestinal Bloating: No Reflux/heartburn: No Abdominal Pain: No Change in bowel habits: No Urinary Urinary Incontinence: No Urinary frequency: No Nocturia: No Urgency: No Painful urination: No Physical Exam Vitals & Measurements BP: 110/86 HT: 160 cm WT: 75.0 kg WT: 75.0 kg (Dosing) BMI: 29.3 General: Alert and oriented, well nourished, no acute distress. Lungs: Clear to auscultation and percussion, non-labored respiration. Heart: Normal rate, regular rhythm, no murmur, gallop or edema. Abdomen: Soft, non-tender, non-distended, normal bowel sounds, no masses. Neurologic: Awake, alert, and oriented X3, CN II-XII intact. Psychiatric: Cooperative, appropriate mood and affect. External Genitalia: Normal urethral meatus, no lesions, vulvar skin intact. Quarter size right Bartholin cyst-mobile and nontender. No expressible fluid. Genitourinary: Normal vaginal mucosa, no lesions +abnormal discharge, cervix intact without lesions or bleeding. No cystocele or rectocele. Additional Vitals BP Position/Location: Sitting, Left arm Assessment/Plan 1. Labial cyst Right Bartholin gland cyst on exam today without signs of abscess. We will try to conservatively manage with oral Keflex and f/u for symptom check. Did discuss I+D and she declines in office today. She is requesting GC/CHL and Affirm today-new sexual partner. She will be notified of results. Ordered: cephalexin, 1 caps, Oral, q12hr, X 7 days, # 14 caps, 0 Refill(s), 09/20/22 14:32:00 EST, Pharmacy: [facility] #[id number] Affirm DNA Panel GC/Chlamydia DNA Medical Decision Making Chronic conditions NOT treated during this visit that affected my overall medical decision making: daily smoker Treatment plans discussed but not opted for at this time: see above Prescribed medication that requires intensive monitoring for toxicity: no I have reviewed the patient?s medication list for medication interactions/contraind ications and/or for upcoming procedures: no Time Spent with the Patient I have personally spent 30 minutes on this date, directly related to today's patient visit, including pre and post visit work, for this date of service. Time listed does not include time spent on separately billable services. Problem List/Past Medical History Ongoing Acid reflux Anxiety Asthma Depression Encounter for gynecological examination (general) (routine) without abnormal findings Genital herpes History of DVT in adulthood HPV in female Hypothyroid Insomnia Labial hypertrophy Labium boil Migraine Narcolepsy Neck pain PE - Pulmonary embolism Seasonal allergies Smoker Spinal stenosis of cervical region Tremors of nervous system Historical No qualifying data Procedure/Surgical History Barclan Gland/Cyst Removal Hernia Repair Left Thumb Tumor Removed Right and Left Medidal Branch Block Procedure Surgery Extraction of wisdom tooth (2002) colonoscopy/EGD (2016) Repair of diaphragmatic hiatal hernia (2019) Total Hysterectomy Robotic X/Xi (10/07/2019) Repair Labia (11/30/2020) Neck Ablation (10/04/2021) Right Neck Ablation (10/11/2021) Medications Aimovig SureClick Autoinjector 140 mg/mL subcutaneous solution, 140 mg, Subcutaneous, qMonth albuterol 90 mcg/inh inhalation aerosol, 2 puffs, Inhale, q4hr, PRN armodafinil 200 mg oral tablet BUDESONIDE-FORMOTEROL 160-4.5, 2 puffs, Inhale, BID LORazepam 0.5 mg oral tablet Maxalt 5 mg oral tablet, 5 mg= 1 tabs, Oral, Daily, PRN melatonin 3 mg oral tablet, 3 mg= 1 tabs, Oral, HS (at bedtime), PRN Nuvigil 150 mg oral tablet, 150 mg= 1 tabs, Oral, qAM omeprazole 40 mg oral delayed relea (more content not included)... Normal [facility] Covid-19 PCR ([facility])on 09-11 SARS-CoV-2 (COVID-19) RNA MEGAN+probe Ql (Unsp spec) Not detected Normal NOT DETECTED [facility] Comment on above: Result Comment: This test is not yet approved or cleared by the [place] FDA. When there are no FDA-approved or cleared tests available, and other criteria are met, FDA can make tests available under an emergency access mechanism called an Emergency Use Authorization (EUA). The EUA for this test is supported by the Tape Sewing Machine Operator of Health and Human Service's (HHS's) declaration that circumstances exist to justify the emergency use of in vitro diagnostics for the detection and/or diagnosis of the virus that causes COVID-19. This EUA will remain in effect (meaning this test can be used) for the duration of the COVID-19 declaration justifying emergency of IVDs, unless it is terminated or revoked by FDA (after which the test may no longer be used). When diagnostic testing is negative, the possibility of a false negative should be considered in the context of a patient's recent exposures and the presence of clinical signs and symptoms consistent with SARS-CoV-2. Performed By: #### C VDTB #### [facility] [address] [place] [address] Adis Warren Covid-19 PCR ([facility])on 09-11 SARS-CoV-2 (COVID-19) RNA MEGAN+probe Ql (Unsp spec) Not detected Normal NOT DETECTED [facility] Comment on above: Result Comment: This test is not yet approved or cleared by the [place] FDA. When there are no FDA-approved or cleared tests available, and other criteria are met, FDA can make tests available under an emergency access mechanism called an Emergency Use Authorization (EUA). The EUA for this test is supported by the Tape Sewing Machine Operator of Health and Human Service's (HHS's) declaration that circumstances exist to justify the emergency use of in vitro diagnostics for the detection and/or diagnosis of the virus that causes COVID-19. This EUA will remain in effect (meaning this test can be used) for the duration of the COVID-19 declaration justifying emergency of IVDs, unless it is terminated or revoked by FDA (after which the test may no longer be used). When diagnostic testing is negative, the possibility of a false negative should be considered in the context of a patient's recent exposures and the presence of clinical signs and symptoms consistent with SARS-CoV-2. Performed By: #### C VDTB #### [facility] [address] [place] [address] Adis Warren OBSOLETEon 07-04-2021 OBSOLETE Refill (NEUWIL) MARITA MESSINA ([id number]) 1985 F Date Time Provider Department 07/04/21 RAYMOND MEDINA During your visit today, we recorded the following information about you: Ashtyn Ana Bazzi 07/04/2021 11:37 AM Signed Please see pended medication. Pharmacy linked. Last ordered 05/31/2021. 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 - armodafinil (NUVIGIL) 200 mg tab Take 1 tablet by mouth once daily for 90 days. - rizatriptan (MAXALT) 5 mg tablet Take 1 tablet by mouth as needed. May repeat in 2 hours if needed - propranolol (INDERAL) 10 mg tablet Take 10 mg by mouth three times daily. - buPROPion SR (ZYBAN SR; WELLBUTRIN SR) 150 mg 12 hr tablet - lithium carbonate ER 450 mg CR tablet Take 450 mg by mouth twice daily. - Biotin 10,000 mcg cap - Omeprazole 40 mg capsule take 1 capsule by mouth once daily as directed - perphenazine 2 mg tablet Take 2 mg by mouth twice daily. - FLUoxetine HCl (PROZAC) 40 mg capsule Take 40 mg by mouth once daily. - baclofen (LIORESAL) 10 mg tablet Take 1 tablet by mouth three times daily. Problem List As Of Date: 07/04/2021 (None) Prescriptions ordered this encounter Disp Refills Start End PRIMIDONE 250 MG TABLET 45 t* 5 07/05/2021 Sig: take 0.5 tablet every morning and 1 tablet every evening Medications Discontinued During This Encounter Prescriptions - primidone (MYSOLINE) 250 mg tablet (Discontinued) take 0.5 tablet every morning and 1 tablet every evening Encounter Status:Closed by RAYMOND MEDINA on 07/05/21 [facility] OBSOLETEon 05-27-2021 OBSOLETE Refill ([facility]) MARITA MESSINA ([id number]) 1985 F Date Time Provider Department 05/27/21 RAYMOND MEDINA [facility] During your visit today, we recorded the following information about you: Ashtyn Perez Ma 05/28/2021 8:05 AM Signed Please see pended medication Pharmacy linked. Last ordered 01/21/2020. Ashtyn Perez Ma Allergies As of Date: 05/27/2021 (No Known Allergies) Date Reviewed: 04/21/2019 Reviewed by: Kinsey Dorsey - Fully Assessed Reason for Visit: Refill Request [94] Visit Diagnosis:Intractable migraine without aura and without status migrainosus [G43.019] Order(s):erenumab-aooe (AIMOVIG AUTOINJECTOR) 140 mg/mL auto-injectorINJECT 140 MG SUBCUTANEOUSLY ONCE EVERY MONTH.Disp: 3 mLRfl: 3 Prescriptions as of 05/30/2021 - erenumab-aooe (AIMOVIG AUTOINJECTOR) 140 mg/mL auto-injector INJECT 140 MG SUBCUTANEOUSLY ONCE EVERY MONTH. - armodafinil (NUVIGIL) 200 mg tab Take 1 tablet by mouth once daily for 90 days. - rizatriptan (MAXALT) 5 mg tablet Take 1 tablet by mouth as needed. May repeat in 2 hours if needed - primidone (MYSOLINE) 250 mg tablet take 0.5 tablet every morning and 1 tablet every evening - propranolol (INDERAL) 10 mg tablet Take 10 mg by mouth three times daily. - buPROPion SR (ZYBAN SR; WELLBUTRIN SR) 150 mg 12 hr tablet - lithium carbonate ER 450 mg CR tablet Take 450 mg by mouth twice daily. - Biotin 10,000 mcg cap - Omeprazole 40 mg capsule take 1 capsule by mouth once daily as directed - perphenazine 2 mg tablet Take 2 mg by mouth twice daily. - FLUoxetine HCl (PROZAC) 40 mg capsule Take 40 mg by mouth once daily. - baclofen (LIORESAL) 10 mg tablet Take 1 tablet by mouth three times daily. Problem List As Of Date: 05/27/2021 (None) Prescriptions ordered this encounter Disp Refills Start End AIMOVIG AUTOINJECTOR 140 MG/ML SUBCU* 3 mL 3 05/30/2021 05/30/2022 Sig: INJECT 140 MG SUBCUTANEOUSLY ONCE EVERY MONTH. Medications Discontinued During This Encounter Prescriptions - erenumab-aooe 140 mg/mL subcutaneous auto-injector (AIMOVIG) (Discontinued) INJECT 140 MG SUBCUTANEOUSLY ONCE EVERY MONTH. Encounter Status:Closed by RAYMOND MEDINA on 05/30/21 [facility] OBSOLETEon 04-26-2021 OBSOLETE Refill ([facility]) MARITA MESSINA ([id number]) 1985 F Date Time Provider Department 04/26/21 RAYMOND MEDINA [facility] During your visit today, we recorded the following information about you: Ashtyn Perez Ma 04/26/2021 10:11 AM Signed Please see pended medication. Pharmacy linked. Last ordered 01/07/2021. 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 - rizatriptan (MAXALT) 5 mg tablet Take 1 tablet by mouth as needed. May repeat in 2 hours if needed - primidone (MYSOLINE) 250 mg tablet take 0.5 tablet every morning and 1 tablet every evening - propranolol (INDERAL) 10 mg tablet Take 10 mg by mouth three times daily. - buPROPion SR (ZYBAN SR; WELLBUTRIN SR) 150 mg 12 hr tablet - lithium carbonate ER 450 mg CR tablet Take 450 mg by mouth twice daily. - Biotin 10,000 mcg cap - Omeprazole 40 mg capsule take 1 capsule by mouth once daily as directed - perphenazine 2 mg tablet Take 2 mg by mouth twice daily. - FLUoxetine HCl (PROZAC) 40 mg capsule Take 40 mg by mouth once daily. - baclofen (LIORESAL) 10 mg tablet Take 1 tablet by mouth three times daily. Problem List As Of Date: 04/26/2021 (None) Prescriptions ordered this encounter Disp Refills Start End ARMODAFINIL 200 MG TABLET 30 t* 2 04/27/2021 07/26/2021 Route: ORAL Sig: Take 1 tablet by mouth once daily for 90 days. Medications Discontinued During This Encounter Prescriptions - armodafinil (NUVIGIL) 200 mg tab (Discontinued) Take 1 tablet by mouth once daily for 90 days. Encounter Status:Closed by RAYMOND MEDINA on 04/27/21 Normal [facility] Coding Summary.on 05-31-2019 Coding Summary. CODING DATE: 05/31/2019 FINAL [facility] STATUS: Home ([facility]) PAYOR: Medicaid EA DESCRIPTION 0390 LEVEL I PATHOLOGY ADMIT DX: REASON FOR VISIT DX: R87.610 Atypical squamous cells of undetermined significance on cytologic smear of cervix (ASC-US) FINAL DX: PRINCIPAL: N87.9 Dysplasia of cervix uteri, unspecified SECONDARY: R87.810 Cervical high risk human papillomavirus (HPV) DNA test positive [facility] PROC EA STAT DESCRIPTION DOCTOR NAME DATE NOTE: The code number assigned matches the documented diagnosis and / or procedure in the patient's chart. However, the narrative phrase printed from the coding software may appear abbreviated, or result in slightly different terminology. Coded By: Prachi Andres Date Saved: 05/31/2019 06:25 am Normal [facility] Gynecology Office/Clinic Not freddie 05-20-2019 Gynecology Office/Clinic Note Chief Complaint Colposcopy Lat Pap 05-05-2019 ASCUS HPV POS Obstetric History History (0,0,0,2) # 1 Baby 1 Outcome Date: 01/25/2007 Outcome: Live Outcome or Result: Vaginal Gender: Male Gest Age: 40 weeks Wt: -- Hospital: -- Ran Labor: -- Child's Name: -- Baby's Father: -- # 2 Baby 1 Outcome Date: 03/16/2009 Outcome: Live Outcome or Result: Vaginal Gender: Female Gest Age: 40 weeks Wt: -- Hospital: -- Ran Labor: -- Child's Name: -- Baby's Father: -- History of Present Illness Here for colposcopy Reviewed procedure and need for colposcopy Wants HYST after this, going to see Marlee Riddle Consent obtained Review of Systems Abnormal pap, ASCUS + HPV, last year ASCUS + HPV Has IUD Physical Exam Vitals & Measurements BP: 118/84 HT: 165 cm WT: 80.9 kg BMI: 29.72 After first obtaining consent, acetic acid applied to cervix. Colposcopy then performed. Transformation zone visualized completely. Area of AWE noted at 12 o'clock. Biopsies done at 12 o'clock. ECC done carefully to avoid IUD, IUD strings. Silver nitrate used for hemostasis. Excellent hemostasis noted. Patient tolerated procedure well. Assessment/Plan 1. ASCUS with positive high risk HPV cervical (R87.610: Atypical squamous cells of undetermined significance on cytologic smear of cervix (ASC-US)) Educated on aftercare of colposcopy and what to expect Will notify of results and next steps Ordered: Colposcopy with biopsy 84025 Pathology Tissue Exam Pathology Tissue Exam Follow-up With When Contact Information She BINGHAM CNP In 1 year [email or web address] Additional Instructions: She BINGHAM CNP Only if needed [email or web address] Additional Instructions: Problem List/Past Medical History Ongoing BMI 31.0-31.9,adult Cervical high risk human papillomavirus (HPV) DNA test positive Migraine Pulmonary embolism and infarction Historical Procedure/Surgical History Insertion of IUD (04/02/2014), Pulmonary embolism (09/10/2013), Abscess of Bartholin gland (09/10/2011), Thumb (09/10/2010), Extraction of wisdom tooth, Hernia, Hernia. Medications acyclovir 800 mg Tab, 800 mg= 1 tab(s), Oral, 5x/Day baclofen 10 mg Tab, 10 mg= 1 tab(s), Oral, BID lithium, See Instructions Maxalt 5 mg oral tablet, 5 mg= 1 tab(s), Oral, Daily, PRN omeprazole 40 mg Cap-DR, 40 mg= 1 cap(s), Oral, Daily ParaGard intrauteral device perphenazine 4 mg Tab, 2 mg, Oral, BID primidone 50 mg Tab, Oral, TID Prozac 40 mg Cap, 40 mg= 1 cap(s), Oral, Daily Soma 350 mg Tab, 350 mg= 1 tab(s), Oral, TID traZODONE 100 mg Tab, Oral, TID Wellbutrin SR 100 mg Tab-ER, 100 mg= 1 tab(s), Oral, BID Zovirax 5% Ointment, See Instructions, 3 refills Allergies Zanaflex (Hallucinations) Social History Alcohol Current, 1-2 times per month, 08/24/2011 Sexual Sexually active: Yes., 04/29/2019 Substance Abuse - Denies Substance Abuse, 08/24/2011 Tobacco - Denies Tobacco Use, 08/24/2011 Never (less than 100 in lifetime) Tobacco Use:. Never Smokeless Tobacco Use:., 04/29/2019 Family History Congenital heart disease: Grandparent. Diabetes mellitus type 2: Father and Grandparent. Hyperlipidemia: Father. Normal [facility] Comment on above: Result Comment: Elec tronically Signed By: She BINGHAM CNP.jeanie\Date and Time Signed: 05/20/19 14:48 EDT Coding Summary.on 05-06-2019 Coding Summary. CODING DATE: 05/06/2019 FINAL [facility] STATUS: Home (Routine [facility]) PAYOR: Medicaid EAPG DESCRIPTION 0392 PAP SMEARS 0397 LEVEL II MICROBIOLOGY TESTS ADMIT DX: REASON FOR VISIT DX: R87.610 Atypical squamous cells of undetermined significance on cytologic smear of cervix (ASC-US) FINAL DX: PRINCIPAL: R87.610 Atypical squamous cells of undetermined significance on cytologic smear of cervix (ASC-US) SECONDARY: R87.810 Cervical high risk human papillomavirus (HPV) DNA test positive [facility] EA STAT DESCRIPTION DOCTOR NAME DATE NOTE: The code number assigned matches the documented diagnosis and / or procedure in the patient's chart. However, the narrative phrase printed from the coding software may appear abbreviated, or result in slightly different terminology. Coded By: Tish Dean CphT Date Saved: 05/06/2019 09:14 am Normal [facility] PAP [id number] 05-05-2019 Cytology report Cyto stain Doc (Cvx/Vag) Note Abnormal [facility] Comment on above: Result Comment: TEST S RESULT FLAG UNITS REF RANGE LAB Clinician Provided Cytology Information Source.............Cervix Other..............IUD No. of containers..01 ThinPrep Vial DIAGNOSIS: [A] 01 EPITHELIAL CELL ABNORMALITY. ATYPICAL SQUAMOUS CELLS OF UNDETERMINED SIGNIFICANCE (ASC-US). 01 Satisfactory for evaluation. Endocervical and/or squamous metaplastic cells (endocervical component) are present. 01 Maricarmen Stovall, Wallpaper Embosser Helper (ASCP) 01 Jennifer Lopes MD, Pathologist 01 Pathologist ICD10: 01 R87.610 Note 01 The Pap smear is a screening test designed to aid in the detection of premalignant and malignant conditions of the uterine cervix. It is not a diagnostic procedure and should not be used as the sole means of detecting cervical cancer. Both false-positive and false-negative reports do occur. Test Methodology: Note 01 This liquid based ThinPrep(R) pap test was screened with the use of an image guided system. FLAG LEGEND: L-Low Normal,H-High Normal,LL-Alert Low,HH-Alert High <-Panic Low,>-Panic High,A-Abnormal,AA-Critical Abnormal Performed at: [address] [facility] [address] [place] [address] Soraya Cabrera MD, Performed By: #### 1 [id number] #### [facility] [address] [place] [address] HPV 16+18+31+33+35+39+4 5+51+52+56+58+59+68 DNA Probe+sig amp Ql (Cvx) Positive Abnormal Negative [facility] Comment on above: Result Comment: This high-risk HPV test detects thirteen high- risk types (16/18/31/33/35/39/45/51/52/56/58/59/68) without differentiation. Performed at: [facility] [id number] MD Rick Lira Performed at: =[facility] [id number] MD Rick Lira Performed By: #### 1 [id number], [id number] #### [facility] [address] [place] [address] Physician Read PAPon 019 Pathologist review Noe (Unsp spec) [Interp] Note [facility] Comment on above: Result Comment: TEST S RESULT FLAG UNITS REF RANGE LAB Physician Read Pap Note 01 Performed FLAG LEGEND: L-Low Normal,H-High Normal,LL-Alert Low,HH-Alert High <-Panic Low,>-Panic High,A-Abnormal,AA-Critical Abnormal Performed at: 01 [facility] [address] [place] [address] Soraya Cabrera MD, Performed at: [facility] [address] [id number] MD Rick Lira Performed By: #### 1 [id number], [id number] #### [facility] [address] [place] [address] Gynecology Office/Clinic Not freddie 04-29-2019 Gynecology Office/Clinic Note Chief Complaint Annual LPS 03/25/2018 ASCUS +HPV Obstetric History History (0,0,0,2) # 1 Baby 1 Outcome Date: 01/25/2007 Outcome: Live Outcome or Result: Vaginal Gender: Male Gest Age: 40 weeks Wt: -- Hospital: -- Ran Labor: -- Child's Name: -- Baby's Father: -- # 2 Baby 1 Outcome Date: 03/16/2009 Outcome: Live Outcome or Result: Vaginal Gender: Female Gest Age: 40 weeks Wt: -- Hospital: -- Ran Labor: -- Child's Name: -- Baby's Father: -- History of Present Illness Patient is 33 Years old here for annual exam. Last pap: 03/2018, +hpv, ASCUS- did not have colposcopy, she did not want to come in due to fear Last mammogram: N/A, denies family history of breast cancer Method of contraception: Paragard IUD Periods: Monthly, last 7-8 days. 4-5 days with heavy/moderate flow, then light spotting, has severe cramping and pelvic pain during menses Last colonoscopy: N/A Would like a HYST due to pelvic pain and bleeding issues Needs refill of cold sore cream per patient Review of Systems PHQ Score Initial Depression Screen Score: 0 ROS ? Provider Constitutional: No fever, No chills, No sweats, No weakness. No Weight change; No fatigue. Skin: No rash, No lesions. ENMT: No ear pain, No sore throat, No congestion. Respiratory: No shortness of breath, No cough, No orthopnea, No wheezing. Cardiovascular: No chest pain, No palpitations, No peripheral edema. Gastrointestinal: No nausea, No vomiting, No diarrhea, No GI bleeding. Genitourinary: No dysuria, No hematuria, No discharge, No pain. Gynecology: No abnormal vaginal discharge, No vaginal itching/burning, No vaginal dryness, Yes painful periods, Yes abnormal bleeding, Yes pelvic pain, No painful intercourse, No hair loss/growth, No hot flashes, has Paragard IUD Breast: No breast pain, No skin changes, No masses/lumps, No nipple discharge. Musculoskeletal: No back pain, No trauma. Neurological: No headache, No dizziness, No numbness, No weakness. Psychiatric: No sleeping problems, No irritability, No mood swings/depression. Heme/Lymph: No bleeding tendency, No bruising tendency, No petechiae, No swollen. Physical Exam Vitals & Measurements HR: 76(Peripheral) RR: 16 BP: 120/70 HT: 165 cm WT: 79.1 kg BMI: 29.05 General Exam: Constitutional: alert, no acute distress, well hydrated, well developed, well nourished. Skin: normal color, no rashes, no lesions, no unusual bruising. Head: atraumatic, normocephalic. Eyes: EOM intact, no nystagmus, no icterus. Ears: no external deformities, gross hearing intact. Mouth: normal dentition Neck: supple, no adenopathy, no masses, thyroid normal size, no thyroid tenderness or nodules. Breasts: skin/areolae normal, no masses, no nipple discharge, no erythema/warmth/tender ness, axillae normal. Cardiovascular: RRR, no murmurs, no gallops, no edema. Respiratory: no respiratory distress. Abdomen: nondistended, nontender, no guarding, no masses. Spine: normal mobility, no deformities. Extremities: no deformities, no clubbing, no cyanosis, no edema. Neurol: normal, cranial nn II-XII grossly intact, sensation intact, motor intact, station & gait normal. Psych: oriented to all spheres, affect and mood appropriate, normal interaction, good eye contact. Pelvic Exam: Vulva: normal appearance, normal hair distribution, no lesions or masses. Urethra: normal, no masses, non-tender, no discharge. Bladder: normal, non-tender, non-distended. Vagina: normal, rugated, physiologic discharge, no lesions, no masses, adequate pelvic support. Cervix: normal, midposition, no motion tenderness, no lesions. Os noted, IUD strings noted, pap obtained and sent Uterus: smooth, mobile, non-tender, adequate support, anteverted. Adnexa: normal, no masses, mobile, nontender. Assessment/Plan 1. ASCUS with positive high risk HPV cervical (R87.610: Atypical squamous cells of undetermined significance on cytologic smear of cervix (ASC-US)) Will notify patient of results Ordered: Office Visit Level 3 Est 12516 PAP [id number] w/HPV HR US Pelvis Non-OB Complete 2. Pelvic pain (R10.2: Pelvic and perineal pain) US ordered, will fax to [place] Ordered: Office Visit Level 3 Est 02226 US Pelvis Non-OB Complete Visit for routine veterinary nurse exam (Z01.419: Encounter for gynecological examination (general) (routine) without abnormal findings) RTC annually or PRN Will notify of results Call with questions or concerns Discussed self breast exams Also discussed options with bleeding and pelvic pain issues Counseled regarding AUB and tx options: observation vs medical vs surgical mgmt. Pt does not want observation. Medical options of hormonal treatment (OCP?s, progesterone only option ? depo, nexplanon, mirena IUD; and Lysteda) discussed with patient. Surgical options of endometrial ablation and hysterectomy discussed, and benefits/risks of both. After discussion, patient would like to proceed with Ordered: Periodic Comp Preventive Med 18 to 39 years Est 04016 Follow-up No qualifying data available Problem List/Past Medical History Ongoing BMI 31.0-31.9,adult Cervical high risk human papillomavirus (HPV) DNA test positive Migraine Pulmonary embolism and infarction Historical Procedure/Surgical History Insertion of IUD (04/02/2014), Pulmonary embolism (09/10/2013), Abscess of Bartholin gland (09/10/2011), Thumb (09/10/2010), Extraction of wisdom tooth, Hernia, Hernia. Medications acyclovir 800 mg Tab, 800 mg= 1 tab(s), Oral, 5x/Day baclofen 10 mg Tab, 10 mg= 1 tab(s), Oral, BID lithium, See Instructions Maxalt 5 mg oral tablet, 5 mg= 1 tab(s), Oral, Daily, PRN omeprazole 40 mg Cap-DR, 40 mg= 1 cap(s), Oral, Daily ParaGard intrauteral device perphenazine 4 mg Tab, 2 mg, Oral, BID primidone 50 mg Tab, Oral, TID Prozac 40 mg Cap, 40 mg= 1 cap(s), Oral, Daily Soma 350 mg Tab, 350 mg= 1 tab(s), Oral, TID traZODONE 100 mg Tab, Oral, TID Wellbutrin SR 100 mg Tab-ER, 100 mg= 1 tab(s), Oral, BID Zovirax 5% Ointment, See Instructions, 3 refills Allergies Zanaflex (Hallucinations) Social History Alcohol Current, 1-2 times per month, 08/24/2011 Sexual Sexually active: Yes., 04/29/2019 Substance Abuse - Denies Substance Abuse, 08/24/2011 Tobacco - Denies Tobacco Use, 08/24/2011 Never (less than 100 in lifetime) Tobacco Use:. Never Smokeless Tobacco Use:., 04/29/2019 Family History Congenital heart disease: Grandparent. Diabetes mellitus type 2: Father and Grandparent. Hyperlipidemia: Father. Normal [facility] Comment on above: Result Comment: Elec tronically Signed By: She BINGHAM CNP.jeanie\Date and Time Signed: 04/29/19 11:36 EDT PAP [id number] 04-29-2019 Gynecological Body Site CERVIX Normal [facility] Comment on above: Performed By: #### 1 [id number] #### [facility] [address] [id number] Other Patient Information IUD Normal [facility] Comment on above: Performed By: #### 1 [id number] #### [facility] [address] [place] [address] Vital Signs Date Time Vital Sign Value Performing Clinician Jessica jacques 11-10-2019 14:27-0500 BMI (Body Mass Index) 35.43 kg/m2 [facility], [place] 11-10-2019 14:27-0500 Body Temperature 97.59 [degF] [place], [place] 11-10-2019 14:27-0500 Body weight 90.72 kg [place], [place] 11-10-2019 14:27-0500 BP Diastolic 65 mm[Hg] [place], [place] 11-10-2019 14:27-0500 BP Systolic 102 mm[Hg] [place] 11-10-2019 14:27-0500 Height 160 cm [place], [place] 11-10-2019 14:27-0500 Pulse Oximetry 99 % [place], [place] Encounters Encounter Date Encounter Type Care Provider Facility Start: 01-23-2024 ambulatory [facility] Start: 11-30-2023 End: 12-01-2023 [facility] Start: 11-30-2023 Encounter for genera l adult medical examination without abnormal findings CAITLYN SPARROW [facility] Start: 08-09-2023 Refill Raymond Pierre ph, MD Work Phone: Neurology Comment on above: Refill Request Start: 07-02-2023 End: 07-03-2023 ambulatory Sana Radford MD Facility: [facility] Start: 03-09-2023 Refill Raymond Pierre ph, MD Work Phone: Neurology Comment on above: Refill Request Start: 12-21-2022 End: 12-22-2022 ambulatory Cailtyn Sparrow MD Facility:[facility] Start: 11-03-2022 End: 11-04-2022 ambulatory Katharine KELLEY-Mariam Facility:[facility] Start: 09-22-2022 End: 09-23-2022 ambulatory Katharine KELLEY-C Facility:[facility] Start: 09-13-2022 End: 09-14-2022 ambulatory Katharine KELLEY-C Facility:[facility] Start: 08-24-[address] MUNIRA DEAL Facili ty:[facility] Start: 07-11-2022 End: 07-12-[address] MUNIRA DEAL Facility: Start: 05-22-2022 Get Medical Advice Raymond Medina MD Work Phone: Neurology Comment on above: Med refill Start: 03-08-2022 End: 03-09-[address] CAITLYN SPARROW Facility:[facility] Start: 02-23-2022 End: 02-23-2022 ambulatory Karel Elaine Other [facility] Other Start: 02-23-2022 Telephone encounter Karel Elaine [facility] Start: 01-09-2022 Refill Raymond Pierre ph, MD Work Phone: Neurology Comment on above: Refill Request Start: 01-04-2022 End: 01-04-2022 ambulatory Karel Elaine Other [facility] Other Start: 01-04-2022 Telephone encounter Karel Elaine [facility] Start: 12-12-2021 End: 12-12-2021 ambulatory Karel Elaine Other [facility] Other Start: 12-12-2021 Telephone encounter Karel Elaine [facility] Start: 11-30-2021 End: 12-01-[address] MUNIRA DEAL Facility:[facility] Start: 11-16-2021 End: 11-16-2021 ambulatory Karel Elaine Other [facility] Other Start: 11-16-2021 Telephone encounter Karel Elaine [facility] Start: 10-11-2021 Encounter for preprocedural laboratory examination DR MUNIRA DEAL [facility] Start: 10-11-2021 End: 10-11-[address] MUNIRA DEAL Facility:[facility] Start: 10-07-2021 End: 10-08-[address] CAITLYN SPARROW Facility:[facility] Start: 10-07-2021 End: 10-08-2021 Encounter for preprocedural laboratory examination DR CAITLYN SPARROW Facility:[facility] Start: 10-04-2021 End: 10-04-[address] MUNIRA DEAL Facility:[facility] Start: 10-03-2021 End: 10-04-[address] CAITLYN SPARROW Facility:[facility] Start: 09-15-2021 End: 09-16-2021 ambulatory LUDA RODRIGUEZ Facility:[facility] Start: 08-03-2021 End: 08-03-2021 ambulatory Karel Elaine Other [facility] Other Start: 08-03-2021 Telephone encounter Karel Elaine [facility] Start: 07-28-2021 End: 07-28-2021 ambulatory Karel Elaine Other [facility] Other Start: 07-28-2021 Telephone encounter Karel Elaine [facility] Start: 11-10-2019 End: 11-11-2019 Patient encounter procedure BRADLEY SIMMONS [facility] Start: 11-10-2019 End: 11-10-2019 Subsequent hospital visit by physician Bradley Simmons Work Phone: [facility] Comment on above: Arrived Procedures Date Procedure Procedure Detail Performing Clinician Start: 10-03-2021 Adult depression screening assessment Raymond Medina MD Work Phone: Plan of Treatment Date Care Activity Detail Author Start: 2036 Shingles Vaccine (1 of 2) Shingles Vaccine (1 of 2) [place], [place] Start: 05-11-2023 Influenza vaccination C [facility] Start: 10-03-2022 Adult depression screening assessment DEPRESSION SCREENING [facility] Start: 09-10-2022 DEPRESSION ASSESSMENT DEPRESSION ASS ESSMENT [facility] Start: 05-11-2022 Influenza vaccination C [facility] Start: 03-29-2020 End: 03-29-2020 Appointment 03/29/2020 Appointment General Surgery Bradley Simmons MD [address] [place], [place] [id number] [facility] Start: 05-11-2019 Influenza vaccination Flu vaccine (# 1) [place], [place] Start: 2016 HPV TESTING HPV TESTING [facility] Start: 2016 Screening for malign ant neoplasm of cervix HPV Testing [facility] Start: 2007 Cervical cancer screen Cervical canc er screen [place], [place] Start: 2007 PAP TESTING PAP TESTING [facility] Start: 2007 Screening for malign ant neoplasm of cervix Pap Testing [facility] Start: 2005 Urine microalbumin profile DTAP,TDAP,TD (1 - Tdap) [facility] Start: 2004 HEPATITIS C SCREENING HEPATITIS C [facility] Start: 2004 Hepatitis C screening Hepatitis C [facility] Start: 2004 HIV SCREENING HIV SCREENING [facility] Start: 2004 HIV screening HIV Screening [facility] Start: 2001 HIV screen HIV screen [place], [place] Start: 12-25-1997 Urine microalbumin profile DTaP,Tdap,Td Vaccine (6 - Tdap) [facility] Start: 1997 DTaP/Tdap/Td vaccine (1 - Tdap) DTaP/Tdap/Td vaccine (1 - Tdap) [place], [place] Start: 1991 COVID-19 VACCINE (1) COVID-19 VACCIN E (1) [facility] Start: 1987 Varicella vaccine (1 of 2 - 2-dose childhood series) Varicella vaccine (1 of 2 - 2-dose childhood series) [place], [place] Start: 01-14-1987 COVID-19 VACCINE (#1) COVID-19 VACCI NE (#1) [facility] Start: 1986 HEPATITIS B (1 of 3 - 3-dose series) HEPATITIS B (1 of 3 - 3-dose series) [facility] Immunizations Immunization Date Immunization Notes Care Provider Fa reyna 08-22-2019 influenza virus vacc ine, unspecified formulation Raymond Medina MD Work Phone: [facility] Payers Date Payer Category Payer [place] [id number] 2019-Present [phone] [address] [place] [address] Medicaid [id number] 2019 Medicaid [id number] 2019 Medicare MEDICARE MEDICAR E A AND B [id number] 2019-Present [phone] [address] [address] [place] [address] Medicare [id number] 2019 Medicare [id number] [id number] 2014 Medicaid MEDICAID [facility] JOB xxxxxxxxxxxx 2014-Present [phone] [address] [place] [address] xxxxxxxxxxxx [id number] 2014 Medicare MEDICARE MEDICAR E PART A AND B xxxxxxxxxxx 2014-Present [phone] [address] [address] [place] [address] xxxxxxxxxxx [id number] 1986 Unknown [id number] 2.16.840.1.342602.3.579.2.177 1986 Unknown [id number] 2.16.840.1.582749.3.579.2.593 1986 Unknown [id number] 2.16.840.1.537896.3.579.2.593 1986 Unknown [id number] 2.16.840.1.636636.3.579.2.593 1986 Unknown [id number] 2.16.840.1.987663.3.579.2.593 1986 Unknown [id number] 2.16.840.1.549746.3.579.2.593 1986 Unknown [id number] 2.16.840.1.239338.3.579.2.593 1986 Unknown [id number] 2.16.840.1.692722.3.579.2.593 1986 Unknown [id number] 2.16.840.1.428422.3.579.2.593 1986 Unknown [id number] 2.16.840.1.178007.3.579.2.593 1986 Unknown [id number] 2.16.840.1.455877.3.579.2.196 1986 Unknown [id number] 2.16.840.1.666635.3.579.2.196 1986 Unknown [id number] 2.16.840.1.407697.3.579.2.196 1986 Unknown [id number] 2.16.840.1.760534.3.579.2.196 1986 Unknown [id number] 2.16.840.1.953387.3.579.2.196 1986 Unknown [id number] 2.16.840.1.260260.3.579.2.196 1986 Unknown [id number] 2.16.840.1.878995.3.579.2.196 1986 Unknown [id number] 2.16.840.1.701763.3.579.2.128 6 1986 Unknown [id number] 2.16.840.1.180848.3.579.2.128 6 1986 Unknown [id number] 2.16.840.1.104248.3.579.2.128 6 1986 Unknown [id number] 2.16.840.1.370936.3.579.2.128 6 1958 Medicaid [id number] 1958 Medicare [id number] Social History Date Type Detail Facility Start: 11-25-2018 End: 11-10-2019 Tobacco smoking status NHIS Never smoker [facility] Start: 04-21-2019 End: 11-10-2019 Alcohol intake Current drinker of alcohol (finding) [place], [place] Start: 11-10-2019 Alcohol Comment [place], [place] Start: 1986 Sex Assigned At Not on file [place], [place] Start: 11-25-2018 Tobacco use and exposure Smoke less tobacco non-user [facility] Start: 11-25-2018 History SDOH Alcohol Comment [facility] Start: 04-21-2019 End: 08-19-2020 Sex Assigned At [facility] Start: 04-21-2019 End: 08-19-2020 History of Social function [facility] Adult Depression Screening Assessment 4 [facility] Clinical Notes 09-15-2021 to 08-09-2023 Telephone Encounter - Ashtyn Perez MA - 08/09/2023 7:55 AM ESTTelephone Encounter - Ashtyn Perez MA - 03/09/2023 1:58 PM EDTTelephone Encounter - Ashtyn Perez Ma - 05/23/2022 7:35 AM EDT Note Date & Type Note Facility 08-09-2023 Miscellaneous Notes Formattin g of this note might be different from the original. Please see pended medication. Pharmacy linked. Last ordered 03/09/2023. Ashtyn Perez MA documented in this encounter [facility] 03-09-2023 Miscellaneous Notes Formattin g of this note might be different from the original. Please see pended medication. Pharmacy linked. Last ordered 10/25/2022. Ashtyn Perez MA documented in this encounter [facility] 07-11-2022 Note CONSULTATION PROCEDURE DATE: 07/11/2022 PREOPERATIVE DIAGNOSIS: Spasming of the trapezius bilaterally. POSTOPERATIVE DIAGNOSIS: Spasming of the trapezius bilaterally. PROCEDURE: Trigger point injection x2. Subsequent to obtaining informed consent, the patient was placed in the sitting position. Alcohol prep was used to sterilize the site. A 25 gauge needle was advanced and it comes to rest along the trapezius, initially on the left hand side, followed by the right hand side. Negative aspiration. Marcaine 0.125% along with Kenalog 20 mg 2 cc are injected to either side. Negative heme. The patient tolerates the procedure well, without any overt complication, will be followed up in the office. [facility] 07-11-2022 Note CONSULTATION CONSULTATION DATE: 07/11/2022 CHIEF COMPLAINT: Trapezius and upper back pain. HISTORY OF PRESENT ILLNESS: This is a 36-year-old female who is known to the Pain Clinic. The patient, in October of this year, had a rhizotomy radiofrequency ablation along her cervical spine. This has afforded the patient significant improvement. 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 She states she has got tightness, achy sensation, especially with the change in weather. The patient states pushing, pulling, twisting aggravates the patient's pain. Housework, lifting, bending aggravate the pain. The patient currently takes Motrin p.r.n. The patient suffers from headaches and is on Mysoline, Maxalt, Aimovig, Prozac, Vraylar, lorazepam 0.5 mg on a p.r. n. basis, BuSpar 15 mg. She also takes baclofen 10 mg h.s. as prescribed by us. The patient's PAST MEDICAL HISTORY / SURGICAL HISTORY / REVIEW OF SYSTEMS are noted on the chart, along with the MEDICATION LIST / ALLERGIES and RADIOLOGICAL IMAGES. PHYSICAL EXAMINATION: Upon physical examination, this is a pleasant, cooperative female, who does not appear to be in any acute distress. VITAL SIGNS: Stable at 131/77 with a heart rate of 77. At a height of 5'2 , the patient weighs 76 kg. FOCUSED EVALUATION: No spasming along the splenius capitis, splenius cervicis muscle is noted. The trapezius bilaterally have significant spasming. Reproduction of the patient's pain is noted upon deep palpation along the musculature. The patient radiates along her shoulder and along the superior aspects of the rhomboid. EXTREMITIES: Motor strength is maintained in the upper extremities at 5/5. NEUROLOGICALLY: The patient is intact. PSYCHIATRICALLY: Affect is appropriate. IMPRESSION: Spasming of the trapezius muscle bilaterally, chronic. PLAN: We have suggested that the patient lift the monitor height up so that she can maintain more of a neutral posture. In the interim, the patient is to add magnesium glycinate on a regular basis q.p.m. The patient will receive trigger point injections in the office today. The patient understands and would like to proceed. CC: Caitlyn Sparrow M.D. [facility] 05-23-2022 Miscellaneous Notes Formattin g of this note might be different from the original. Please see pended medication. Pharmacy linked. Last ordered 10/20/2021. Ashtyn Perez Ma documented in this encounter [facility] 03-08-2022 Note CONSULTATION CONSULTATION DATE: 03/08/2022 HISTORY OF PRESENT ILLNESS: This is a pleasant, 36-year-old female, returning to the clinic for a three month follow up for her chronic neck pain. Patient had radiofrequency ablation to her cervical regions October 04 and October 112021. She continues to have 90% relief with that. She takes baclofen 10 mg q.h.s. and amitriptyline 50 mg q.h.s. daily. She is compliant with her multivitamins, magnesium, stretches and heat. Activities that aggravate her pain are housework and lifting. She will occasionally get a massage which is helpful, but the patient states her massage does irritate her neck. Overall, she is doing quite well. Patient denies any new radicular pain or vasomotor changes. Patient's REVIEW OF SYSTEMS / PAST MEDICAL HISTORY / ALLERGIES and IMAGES have been reviewed and they are noted on the chart. PHYSICAL EXAM: VITAL SIGNS: Blood pressure 131/85, heart rate is 85. Temperature is 97.1. She is 5'3 and weighs 89 kg. GENERAL APPEARANCE: Pleasant, appropriate, no acute distress. FOCUSED EXAM - NECK: Full range of motion in lateral rotation and flexion/extension. No pain reproduced upon direct compression of the cervical facets indicative of successful RFA. Muscles are taut but non-spasmodic. MUSCULOSKELETAL: Bilateral upper extremities with good muscle tone and no vasomotor changes. NEUROLOGICAL: Bilateral brachioradialis reflex +1. Negative polyneuropathy. IMPRESSION: Cervical degenerative disc, cervical spondylosis, cervical neuritis. PLAN: Overall, the patient is doing very well and is happy with her results. The patient feels she has a very good routine at home regarding stretches, vitamins and medications. She is requesting a refill of her baclofen 10 mg q.h. s. which will be given to her. Patient is encouraged to continue her current regimen and to call the clinic on a p.r.n. basis as needed. Patient does agree with plan of care. [facility] Signed and Approved by: LUDA RODRIGUEZ . 03/09/2022 13:38:00 [facility] 01-09-2022 Miscellaneous Notes Please see pended medication. Pharmacy linked. Last ordered 07/05/2021. Ashtyn Perez Ma documented in this encounter [facility] 11-30-2021 Note CONSULTATION PAIN MANAGEMENT CONSULTATION HISTORY OF PRESENT ILLNESS: This is a pleasant, inactive, 36-year-old female returning to the clinic status post bilateral cervical RFA of C3, C4 and C5, C6, which was last completed on 10/11/2021. The patient states it took almost 6-8 weeks to feel benefit, but she is reporting 90% improvement as of today. She is having some bilateral neck tightening and did have a massage that appeared to help. She is having intermittent numbness, she describes as arms falling asleep bilaterally, depending on her activity. Activities that aggravate her pain are pushing, pulling, flexion/extension, ADLs and changes in the weather. She alternates heat and ice on her neck, which give her relief. Medications include amitriptyline 50 mg q.h.s. and baclofen 10 mg q.h.s. Patient's REVIEW OF SYSTEMS / PAST MEDICAL HISTORY / ALLERGIES and IMAGES have been reviewed and they are noted in the chart. PHYSICAL EXAM: VITAL SIGNS: Blood pressure 134/80, heart rate 98, temperature is 97.5. She is 5'3 , weighs 93 kg. GENERAL APPEARANCE: Pleasant, cooperative, in no acute distress. NECK EXAM: Range of motion is well within functional limits in lateral rotation and flexion/extension. No reproduction of spinal axial pain to direct compression along the cervical posterior elements of the facets of C3, C4 and C5, C6. Bilateral trapezius muscle tightening is noted but not spasming. MUSCULOSKELETAL: Motor is intact, 5/5 to bilateral upper extremities. NEUROLOGICAL: Patchy hypoesthesia noted along C6 bilaterally. Intact bilateral brachioradialis reflex. IMPRESSION: Cervicalgia, cervical spondylosis and cervical neuritis. PLAN: Overall the patient is fairing very well and is happy with outcome. I did discuss using a menthol heat rub daily in addition to heat, but to decrease the use of the ice. I educated the patient on obtaining a home cervical traction device, which she agreed she would look into. We will maintain her baclofen 10 mg q.h.s. as well. We will follow up with her in three month's time, and patient agrees to this plan. [facility] Signed and Approved by: LUDA RODRIGUEZ . 12/01/2021 12:26:00 [facility] 09-15-2021 Note The [place], [place] NAME: MARITA MESSINA DATE OF : MEDICAL REC#: [id number] ANIMAL NUTRITIONIST: [id number] LILIANA DAWKINS ADMIT DATE: 09/15/2021 12:21:00 CLEAN ENERGY POLICY ANALYST DATE: 09/16/2021 11:00 DICTATING PHYSICIAN: LUDA RODRIGUEZ DICTATION DATE: 09/15/2021 13:00 PAIN MANAGEMENT Consultation Date: 09-15-21 HISTORY OF PRESENT ILLNESS: This is a very pleasant 36 year-old female who returns to the clinic for a two month followup status post bilateral anterior trapezius trigger point injections that she received on 07-11-21. This afforded her 80% relief for two weeks and she was able to be very active with minimal pain during that time. She did have a cervical RFAs bilaterally in December 2020 and she feels that she is at that point for another ablation. She's been having increasing headaches that originate from her lower cervical region that ascend to her occipital region. She does have a history of migraines and takes Aimovig and amitriptyline. ADL: Activities that aggravate her pain are lateral rotation, pushing, pulling, lifting, bending, forward flexion, and changes in the weather. Heat, ice, and sitting decrease the pain. MEDICATIONS: Baclofen 10 mg q.h.s., as well as a vitamin regimen which she feels is helpful to her pain. She is in need of a baclofen refill today. REVIEW OF SYSTEMS / PAST MEDICAL HISTORY / ALLERGIES / IMAGES and MEDICATIONS: Have been reviewed and are noted in the chart. PHYSICAL EXAM: VITALS:Blood pressure 142/87, heart rate 117, respirations 16, oxygen 95%. Height 160 cm, weight 90.2 kg. GENERAL:In no acute distress, friendly and appropriate. FOCUSED EXAM NECK:Trachea is midline. Lateral rotation range of motion is intact, guarded in forward flexion. Reproduction of cervical spinal axial pain noted to direct compression of the posterior elements of the cervical facets of C3, C4, and C5, C6 which is concordant with ill facet arthropathy, cervical spondylosis. MUSCULOSKELETAL:Upper extremities, motor is intact 4/5 bilaterally. NEUROLOGICALLY:Radicular sensory is intact, negative polyneuropathy. DIAGNOSIS: 1. Cervical spondylosis. 2. Cervical degenerative disc. 3. Cervical spasms. PLAN: 1. We will refill the baclofen today at 10 mg q.h.s. 2. We will contact her insurance for approval to move forward with a repeat RFA starting with the left side at C3, C4 and C5, C6 then moving to the right side. 3. The patient will be followed up in the office post procedure and agrees with the plan of care and would like to proceed. Electronically Authenticated and Edited by: Luda Rodriguez CNP on 09/25/2021 11:23 PM EST [facility] Signed and Approved by: LUDA RODRIGUEZ . 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 tremor documented in this encounter [facility] noteNo Markr Other Evaluation note* Diagnosis Daytime sleepiness Narcolepsy without cataplexy [facility]* Diagnosis Daytime sleepiness Narcolepsy without cataplexy documented in [facility]* Diagnosis Daytime sleepiness Narcolepsy without cataplexy documented in this encounter [facility] Summary Purpose Family History No Family History Records FoundNo Family History Records FoundNo Family History Records FoundNo Family History Records FoundNo Family History Records FoundNo Family History Records Found Advance Directives No Advanced Directives Records FoundDocuments on File Type Date Recorded Patient Order Booker Expl anation Advance Directives and Living Will Power of Rehab Director History of Present Illness * Bradley Simmons MD - 11/10/2019 2:00 PM EST [facility] Evaluation PATIENT NAME: Marita Messina MRN NUMBER: [id number] DATE OF : 1985 PHONE NUMBER: [phone] PRIMARY CARE PHYSICIAN: No primary care provider on file. TODAY'S DATE: 11/10/2019 SUBJECTIVE: Chief Complaint: Pain and bulging at recent hernia site. History of Present Illness: The patient is a 34 y.o. female who presents with a visible bulge and discomfort in the epigastriumat a recent hernia site. The patient had 2 midline hernias that were operated in October 2016. Onehernia was in the umbilicus the other was in the epigastrium. The epigastric hernia was repaired with suture and no mesh and the umbilical hernia was repaired with mesh. She developed a recurrent hernia in the epigastrium and underwent surgery again in March. At that time incarcerated preperitoneal fat and omentum was described. The omentum was returned to the abdominal cavity. I have read the operative report and the description is that of 4 cm diameter hernia with incarcerated omentum and repair with a coated polyester mesh. It sounds like an inlay mesh repair was performed. Since that time the patient had a very prominent lump beneath her surgical scar that was thought to be either fluid collection or hematoma. A CT scan was done in May and I reviewed these images. This does show a lot of scarring and perhaps a small amount of fluid collection. The patient had another CT scan October 09 of this year which I reviewed. It still shows prominent scar in this area but not as much fluid. Just above the fascia there are some low- density areas which may be fat or may be residual fluid. I cannot see any evidence of recurrent hernia on any of these studies. The patient is just 4 weeks postoperative following a laparoscopically assisted transvaginal hysterectomy. She states that when the hysterectomy was performed the surgeon did tell her that she had to alter her trocar placement because there were adhesions of bowel up to her hernia mesh. I have the pathology report from that but the operative report is incomplete showing just the facesheet. The patient describes that her symptoms occur when she eats a large meal or if she bends over. It is difficult totell whether she develops the discomfort and then bloating or whether whenever she is bloating she has more discomfort. Sounds more like if she is bloated than that exacerbates the abdominal wall discomfort. She comes regarding evaluation and advice. She was told by her local surgeon repairing the problem would require biologic mesh. Major medical comorbidities are simply related to history of migraines and a remote history of pulmonary embolus in 2013. Review of Systems: Review of Systems Constitutional: Negative for activity change, fever and unexpected weight change. HENT: Negative for congestion, rhinorrhea and sore throat. Eyes: Negative for visual disturbance. Respiratory: Negative for cough and shortness of breath. Cardiovascular: Negative for chest pain and palpitations. Remote history of pulmonary embolus noted. Gastrointestinal: Negative for blood in stool, constipation, diarrhea, nausea and vomiting. See also history of present illness. Genitourinary: Negative for difficulty urinating, frequency, hematuria and urgency. Musculoskeletal: Negative for arthralgias, back pain and myalgias. Hematological: Does not bruise/bleed easily. Past Medical History: Past Medical History: Diagnosis Date Migraines patient stated every other week [facility] Past Surgical History: Past Surgical History: Procedure Laterality Date HERNIA REPAIR a year had repair above belly button at [facility] HERNIA REPAIR umbilical and above belly buton also at [facility] about 2 years ago HYSTERECTOMY TUMOR REMOVAL Left 2012 left thumb at [facility] Family History: Family History Problem Relation Age of Onset Cancer Mother Obesity Father Diabetes Father Social History: Social History Tobacco Use Smoking status: Never Smoker Smokeless tobacco: Never Used Substance Use Topics Alcohol use: Yes Comment: social Medications: Current Outpatient Medications: FLUoxetine (PROZAC) 40 MG capsule, Take 40 mg by mouth daily, Disp: , Rfl: omeprazole (PRILOSEC) 20 MG delayed release capsule, Take 40 mg by mouth daily, Disp: , Rfl: propranolol (INDERAL) 10 MG tablet, Take 10 mg by mouth 2 times daily, Disp: , Rfl: perphenazine 2 MG tablet, Take 2 mg by mouth 2 times daily, Disp: , Rfl: primidone (MYSOLINE) 250 MG tablet, Take 250 mg by mouth 2 times daily Morning and at night, Disp: , Rfl: cyclobenzaprine (FLEXERIL) 5 MG tablet, Take 5 mg by mouth 2 times daily as needed for Muscle spasms, Disp: , Rfl: melatonin 3 MG TABS tablet, Take 10 mg by mouth daily Take 10 mg at bedtime, Disp: , Rfl: traZODone (DESYREL) 50 MG tablet, Take 50 mg by mouth nightly As needed at bedtime, Disp: , Rfl: levothyroxine (SYNTHROID) 75 MCG tablet, Take 75 mcg by mouth Daily, Disp: , Rfl: Erenumab-aooe (AIMOVIG SC), Inject into the skin Indications: injection unknown does streghth, Disp: , Rfl: enoxaparin (LOVENOX) 30 MG/0.3ML injection, Inject 30 mg into the skin daily, Disp: , Rfl: rizatriptan (MAXALT) 5 MG tablet, Take 5 mg by mouth once as needed for Migraine May repeat in 2 hours if needed, Disp: , Rfl: Allergies: Vicodin [hydrocodone-acetaminophen] OBJECTIVE: Vitals: BP 102/65 Temp 97.6 F (36.4 C) (Oral) Ht 5' 3 (1.6 m) Wt 200 lb (90.7 kg) SpO2 99% BMI 35.43 kg/m Body mass index is 35.43 kg/m . Physical Exam: GENERAL APPEARANCE: awake, alert, moderately obese 34 y.o. year old female, well-oriented, and in no acute distress ENT: sclerae are clear and white without icterus, oropharynx shows patient has her own teeth with good dental hygiene, no erythema or masses. Neck is free of lymphadenopathy or thyroid masses. LUNGS: clear, equal breath sounds bilaterally without rales, rhonchi, or wheezes. CARDIO: S1 and S2 are within normal limits, regular rate and rhythm, no murmurs, no jugular venous distention and no ankle edema. ABDOMEN: the abdomen is soft without organomegaly, masses or tenderness. There are a transverse surgical scars in the midline starting at the level of the umbilicus and going above that with 2 very old mature scars and then 1 more fresh scar. Multiple small scars are present in the left lateral abdomen from her recent laparoscopic procedure as well. These are all well-healed without signs of infection. There is a visible prominence underneath the transverse scar from her surgery of 8 months ago. However on palpation this appears to be soft tissue prominence in the subcutaneous space rather than evidence of hernia bulge. She was examined both supine and upright and I cannot appreciate any pro trusion of any contents or movement with coughing or straining. INGUINAL: No evidence of inguinal hernia can be appreciated. GENITOURINARY: Not applicable RECTAL: ROSA not preformed EXTREMITIES: no deformity or edema noted. Imaging: I reviewed CT scan reports and images from the [facility] from May 2019 and March 2020. The findings are summarized above. There is prominent soft tissue scarring but no definite evidence of hernia. There does appear to be bowel immediately adjacent to the mesh that was placed and the findings are consistent with a possible inlay type of mesh placement. However no recurrent hernias seen and no air or other sign of infection is present. ASSESSMENT: Assessment: 1. I told the patient that the clinical exam and CT findings are mostly consistent with soft tissueprominence rather than recurrent hernia. She probably did have some degree of hematoma formation and related scarring postoperatively. There may be some residual fluid or there may be a small amount of preperitoneal fat still present at the fascial level. However my review of the CT scan suggests that the former is far more likely as an intact fascial line can be seen all the way through this area on both axial and sagittal images without any radiologic sign of a fascial defect. I told her that although the scarring could account for her symptoms I would not recommend scar excision or revision in an attempt to gain symptomatic relief. In the absence of hernia I do not think explanting her old mesh and performing a different type of repair would be helpful. I did tell her though that it does appear that she likely has some small and large bowel adherent to the coated meshthat was placed. I told her I would not recommend any surgical intervention simply to take down those adhesions. She is not having obstructive problems at present and it is unlikely that these adhesions alone will progress to bowel obstruction. PLAN: 1. I have recommended that she continue a plan of expectant observation. She should see me again inJuly when she is 1 full year postoperative. At that point I can repeat the clinical evaluation and possibly repeat the CT scan to be certain that no low-grade abscess is developing or that there is no development or progression of the very small subclinical hernia. The patient and her seem to have a very good understanding of this and are quite agreeable with this plan. Follow-up: P clinical exam in March 2020. Possible repeat CT scan depending upon the clinical findings at that time. Electronically signed by Bradley Simmons MD This note was created with the assistance of a speech-recognition program. Although the intention is to generate a document that actually reflects the content of the visit, no guarantees can be provided that every mistake has been identified and corrected by editing. documented in this encounter Additional Source Comments INFORMATION SOURCE (unrecogn ized section and content) DATE CREATED AUTHOR 05/31/2019 [facility] DATE CREATED AUTHOR AUTHOR'S ORGANIZ ATION 11/11/[address] [facility] DATE CREATED AUTHOR AUTHOR'S ORGANIZ ATION 12/01/2021 [facility] DATE CREATED AUTHOR AUTHOR'S ORGANIZ ATION 09/02/2022 [facility] DATE CREATED AUTHOR AUTHOR'S ORGANIZ ATION 07/10/2023 [facility] DATE CREATED AUTHOR AUTHOR'S ORGANIZ ATION 01/26/2024 [facility] Source Comments (unrecognize d section and content) In the event this informatio n is protected by the Federal Confidentiality of Alcohol and Drug Abuse Patient Records regulations: The Federal rules restrict any use of the information to criminally investigate or prosecute any alcohol or drug abuse patient.[facility] the event this information is protected by the Federal Confidentiality of Alcohol and Drug Abuse Patient Records regulations: The Federal rules restrict any use of the information to criminally investigate or prosecute any alcohol or drug abuse patient.[facility] the event this information is protected by the Federal Confidentiality of Alcohol and Drug Abuse Patient Records regulations: The Federal rules restrict any use of the information to criminally investigate or prosecute any alcohol or drug abuse patient.[facility] the event this information is protected by the Federal Confidentiality of Alcohol and Drug Abuse Patient Records regulations: The Federal rules restrict any use of the information to criminally investigate or prosecute any alcohol or drug abuse patient.[facility] Reason for Visit (unrecogniz ed section and content) Reason Onset Date Comments Refill Request 01/09/2022 Reason Onset Date Comments Refill Request 03/09/2023 Reason Onset Date Comments Refill Request 08/09/2023 Care Teams (unrecognized sec tion and content) [employer] Relationship Specialty Start Date End Date Caitlyn Sparrow [address] [place] [address] PCP - General Internal Medicine 11/25/18 [employer] Relationship Specialty Start Date End Date Caitlyn Sparrow [address] [place] [address] PCP - General Internal Medicine 11/25/18 [employer] Relationship Specialty Start Date End Date Caitlyn Sparrow [address] [place], [place] [id number] PCP - General Internal Medicine 11/25/18 [employer] Relationship Specialty Start Date End Date Caitlyn Sparrow [address] [place], [place] [id number] PCP - General Internal Medicine 11/25/18 FOR RECORDS PERTAINING TO PATIENTS WHO ARE OR HAVE BEEN ENROLLED IN A CHEMICAL DEPENDENCY/SUBSTANCEABUSE PROGRAM, SOME INFORMATION MAY BE OMITTED. This clinical summary was aggregated from multiple sources. Caution should be exercised in using it in the provision of clinical care. This summary normalizes information from multiple sources, and as a consequence, information in this document may materially change the coding, format and clinical context of patient data. In addition, data may be omitted in some cases. CLINICAL DECISIONS SHOULD BE BASED ON THE PRIMARY CLINICAL RECORDS. [employer] provides no warranty or guarantee of the accuracy or completeness of information in this document.
[2024-01-28 08:44] VITALS: BP 124/88; PULSE 86; TEMP 36.3; O2SAT 98
[2024-01-28 09:17] VITALS: BP 123/75; PULSE 77; PULSE 78; O2SAT 98; O2SAT 99
[2024-01-28] MEDS: LIDOCAINE HCL 2% PF 100 MG/5 ML VIAL 10 ML INJ (09:19)
[2024-01-28] MEDS: BUPIVACAINE HCL 0.25% PF 25 MG/10 ML VIAL INJ (09:19)
[2024-01-28 09:20] VITALS: BP 126/76
--- NOTE | 2024-01-28 09:22 | W.PM.PROCNOT ---
Date of procedure: 01/28/24 Pre-op diagnosis: Lumbar spondylosis Post-op diagnosis: same as pre-op Procedure: Procedure: Bilateral L4-5, L5-S1 medial branch block Medications: Bupivacaine 0.25% 6cc The patient was seen and examined in the preoperative holding area.? An informed consent was obtained and placed on the chart.? The patient was brought to the medical procedure unit and placed in the prone position.? A timeout was completed verifying correct patient, procedure site, positioning, plan, and special equipment.? Using aseptic technique, the needle was placed at left L4. Under direct fluoroscopic visualization a Quincke-tipped spinal needle was advanced to the junction of the superior articulating process with the transverse process at the designated medial branch segment.? Preceded by negative aspiration, the above-mentioned injectate was placed in 1 mL aliquots.? The procedure was repeated at left L5, S1.? The needle was removed and insertion site was covered. The same procedure, at the same levels, was completed on the right side. The patient was taken to the postprocedural recovery area and monitored for an appropriate length of time before found suitable for discharge in the company of a responsible adult. Anesthesia: Local Surgeon: Sana Radford Pathology: none sent Condition: stable Disposition: no change
== END 2024-01-28 09:25 | disposition home or self-care (01) ==
PROVIDERS: PCP Internal Medicine; Visit Provider Anesthesiology
DX: M47.816 Spondylosis without myelopathy or radiculopathy, lumbar region (principal)
CPT/HCPCS: 64493; 64494

== ENCOUNTER 2024-02-07 11:16 | Outpatient (OUT) | payer MEDICARE, MEDICAID, SELFPAY ==
--- NOTE | 2024-02-07 11:26 | PM.CN ---
Consult Note: HPI Data of Consult Patient: known to practice within the last 3 years Requesting Physician: Michelle Randhawa NP Primary Care Provider: CAITLYN SPARROW Consult Narrative Reason for consult: f/u Narrative: Marita Messina a pleasant 37 year old female presents for evaluation of chronic neck and back pain. Patient has tried and failed OTC medications, home based exercise program and cervical traction. Since that time her back pain has been the most aggravating factor, especially with ADLs and housework. recent lumbar imaging consistent with lumbar spondylosis and minimal degenerative disc changes at L5-S1. Patient finds mild benefit to current medication regimen, failed diclofenac 50mg BID PRN. Since increasing baclofen to 15mg BID PRN has not noticed improvement in pain. Bilateral L4-5 l5-S1 medial branch block #1 provided 100% improvement in pain and greater than 80% improvement in functional ability immediately after and 3 hours following the injection. Patient was able to ambulate, clean house, and tolerate physical activity. cc:: CC: Michelle Randhawa NP Review of Systems ROS Status of ROS 10 or more systems reviewed and unremarkable except as noted in history and below Musculoskeletal Reports: back pain and neck pain PFSH [facility] Medical History (Updated 01/16/24 @ 12:58 by Michelle Randhawa NP) Anxiety ?F41.9 - Anxiety disorder, unspecified (ICD-10) Hiatal hernia ?K44.9 - Diaphragmatic hernia without obstruction or gangrene (ICD-10) Acid reflux ?K21.9 - Gastro-esophageal reflux disease without esophagitis (ICD-10) Pulmonary embolism ?I26.99 - Other pulmonary embolism without acute cor pulmonale (ICD-10) Asthma ?J45.909 - Unspecified asthma, uncomplicated (ICD-10) Surgical History History of surgical removal of Bartholin’s gland cyst ?Z98.890 - Other specified postprocedural states (ICD-10) ?Z87.42 - Personal history of other diseases of the female genital tract (ICD-10) History of eye surgery ?Z98.890 - Other specified postprocedural states (ICD-10) [place] teeth extracted ?K08.409 - Partial loss of teeth, unspecified cause, unspecified class (ICD-10) History of hernia repair ?Z98.890 - Other specified postprocedural states (ICD-10) ?Z87.19 - Personal history of other diseases of the digestive system (ICD-10) History of hysterectomy ?Z90.710 - Acquired absence of both cervix and uterus (ICD-10) Meds Home Medications and Allergies Home Medications ?Medication ?Instructions ?Recorded ?Confirmed ?Type albuterol sulfate 90 mcg/actuation 2 puff inhalation Q6H PRN 06/22/23 01/28/24 History aerosol inhaler shortness of breath or wheezing armodafinil 150 mg tablet (Nuvigil) 150 mg PO QAM 06/22/23 01/28/24 History buspirone 15 mg tablet 15 mg PO BID 06/22/23 01/28/24 History cariprazine 3 mg capsule (Vraylar) 6 mg PO DAILY 06/22/23 01/28/24 History erenumab-aooe 70 mg/mL 70 mg subcut 06/22/23 History subcutaneous auto-injector (Aimovig Autoinjector) fluoxetine 40 mg capsule (Prozac) 40 mg PO DAILY 06/22/23 01/28/24 History hydroxyzine pamoate 50 mg capsule 100 mg PO DAILY 06/22/23 01/28/24 History omeprazole 20 mg capsule,delayed 40 mg PO BID 06/22/23 01/28/24 History release primidone 250 mg tablet (Mysoline) 250 mg PO BID 06/22/23 01/28/24 History propranolol 20 mg tablet 20 mg PO Q12H 06/22/23 01/28/24 History rizatriptan 5 mg tablet 5 mg PO Q2H PRN migraine headache 06/22/23 01/28/24 History phentermine 37.5 mg tablet 18.75 mg PO DAILY 01/28/24 01/28/24 History (Adipex-P) Allergies Allergy/AdvReac Type Severity Reaction Status Date / Time hydrocodone [From Vicodin] Allergy Hives Verified 01/28/24 08:45 Exam Narrative Exam Narrative: diffuse myofascial pain and tenderness Constitutional Documenting provider has reviewed patient's vital signs: yes Common normals: no apparent distress, oriented x3, healthy appearing, alert and well nourished General appearance: cooperative HENMT Common normals: normocephalic, hearing grossly normal bilaterally and moist oral mucous membranes Head and scalp: normocephalic Eye Common normals: PERRL Pupil: PERRL Neck & C-Spine Common normals: full ROM General: normal visual inspection Cervical spine: pain with cervical ROM, paracervical muscle tenderness and trapezius muscle tenderness Other: pain with flexion extension and rotation axial neck pain without radiculopathy Chest Common normals: inspection of chest normal Respiratory Common normals: normal respiratory effort, no retractions and no use of accessory muscles Back & Pelvis Lumbar spine/lower back: normal to inspection, ROM limited and straight leg raise negative bilaterally Other: bilateral facet loading positive tenderness over bilateral L4-5 L5-S1 facets no radiculopathy predominately axial back pain Extremity Common normals: normal to inspection and full ROM Neuro Common normals: oriented x3, CN's II-XII intact bilaterally, moves all extremities, no focal motor deficits, no sensory deficits noted and deep tendon reflexes 2+ bilaterally Sensorium/orientation: alert Motor exam: strength 5/5 throughout and no movement abnormalities noted Psych Common normals: mental status grossly normal, thought process normal, cooperative, affect normal, speech normal and activity/motor behavior normal Speech: normal speech Thought process: normal thought process Results Additional Findings Additional findings: If on a controlled substance or opioids, I have checked an [place] report on this patient and there are no aberrancies noted in the prescribing history.??If on a controlled substance or opioid a drug screen was completed and reviewed within the last year, and if there has not been a drug screen completed we ordered one today to monitor higher risk, state monitored pain medication use. As part of providing excellent, safe, comprehensive care, the following was completed at our patient's visit: 1. A medication reconciliation and review to ensure accurate knowledge of current/active medications, including asking our patients to inform us about any [id number] medications or herbal remedies/nutritional supplements/alternative remedies. 2. A review to specifically ensure our patients have had annual screening for screening for depression, screening for tobacco use, and screening for unhealthy alcohol use. For concerning screenings had a discussion with the patient, provided patient education, and recommended follow-up with primary care provider when appropriate. If patient noted with a risk of falling, they received education on strength, gait, and balance training to prevent future risk of falling. Assessment and Plan Assessment and Plan (1) Lumbar spondylosis: Assessment and Plan: The patient has had over 3 months of moderate to severe low back pain with functional impairment and inadequate response to conservative care including NSAIDS (unless there are contraindication such as concurrent blood thinners), multiple oral or topical pain medications, and home exercise program/physical therapy.? Patient has completed >6 weeks of guided home exercise program and/or formal physical therapy program without relief of their symptoms.? I have reviewed the imaging of the lumbar spine and no red flags were identified.? The imaging reveals radiographic findings consistent with lumbar spondylosis We discussed the risks and benefits of the procedure with the patient, and we are NOT planning on using sedation as outlined in the guidelines from Medicare unless there is a documented reason that sedation would be strongly recommended.?? The procedure will be completed with fluoroscopic guidance.? (2) Cervical spondylosis: (3) Chronic pain syndrome: (4) Myofascial pain syndrome: Plan bilateral L4-5 L5-S1 facet medial branch block x2 working towards RFA stop baclofen start cyclobenzaprine 10mg BID PRN PT for myofascial pain syndrome/chronic pain syndrome, upcoming watertherapy next week looking to buy TENS otc as insurance would not cover avoid NSAIDs worsens GERD f/u 1 week after each injection
--- OUTSIDE RECORDS SUMMARY | 2024-02-07 11:34 | XMS_ITS | CCD ---
Author Organization [facility] Care Team Providers Care [employer] S[employer] Name Role Phone BRADLEY SIMMONS Referring Unavailable Unavailable Primary Care Provider Unavailjulianne e Caitlyn Sparrow Primary Care Provider Karel Henry Unavailable Caitlyn [...] able TOYIN, DR MUNIRA Avalos Admitting Unavailable KYARA, [...] Unavailable TOYIN, DR MUNIRA Avalos Admitting Unavailable Caitlyn Sparrow Primary [place] [facility] Provider Kyara CLEMONS, Caitlyn Clark [facility] Ness Radford MD, Sana Doyle Attending Unavailable Kyara CLEMONS, Caitlyn Clark [facility] Ness janice Radford MD, Sana Doyle Attending Unavailable CAITLYN SPARROW Referring Unavailabl e CAITLYN SPARROW Primary Care Unavailjulianne e LEONIDAS SALCIDO Referring Unavailable CAITLYN SPARROW Primary Care Unavailabl e LOLY, LEONIDAS Miles Referring Unavailable CAITLYN SPARROW Primary Care Unavailabl e Allergies Allergy Classification Reported Allergen(s) Allergy Type Date of Onset Reaction(s) Facility Acetaminophen / HYDROcodone (1 source) Acetaminophen / HYDROcodone; Translations: [HYDROCODONE-ACETA MINOPHEN] Drug Allergy 10-09-2019 [facility] (1 source) Acetaminophen / HYDROcodone Drug Allergy 11-10-2019 [place], [place] (9 sources) Acetaminophen / HYDROcodone; Translations: [Vicodin] Drug Allergy 09-10-[address] [facility] Repository Medications Current Medications Medication Drug Class(es) [...] days Active take 1 capsule by mo ut every twenty-four hours Vraylar 4.5 MG 1 [...] Start: 11-20-2018 take 1 capsule by mo [facility] once daily FLUoxetine HCl (PROZAC) 40 mg [...] oral tablet (6 sources) Benzodiazepine Start: 10-19-19 take 1 tablet by mouth every twenty-four hours Ativan 0.5 MG 1 tablet at bedtime as needed Orally Once a day for 10 days f41.1 Oct, Active take 1 tablet by [facility] every twenty-four hours Ativan 0.5 MG 1 [...] on above: Take 1 tablet by anu once daily for 90 days. baclofen 10 [...] on above: Take 1 tablet by anu three times daily. biotin 10 mg oral [...] Comment on above: take 1 capsule by mo [facility] once daily as directed perphenazine 2 mg [...] Chun MD on 12/03/2023 10:04 AM Normal [facility] XR SPINE CERVICAL 3 VWS OR L [...] Jay MD on 12/02/2023 7:06 AM Normal [facility] CBC AND AUTO DIFFon 11-30-19 ABSOLUTE BASOPHIL 0.0 X10E9/L Normal 0.0-0.2 [facility] Comment on above: Performed By: #### C EVIN, 89840-5, THYR, CBCA, 60207-8 #### [facility] ([id number]) [address], [address] [place] [address] ABSOLUTE NEUTROPHIL 2.5 X10E9/L Normal 1.5-6.6 [facility] Comment on above: Performed By: #### C EVIN, 93121-5, THYR, CBCA, 06425-4 #### [facility] ([id number]) [address], [address] [place] [address] Basophils/100 WBC (Bld) 0.5 % Normal [facility] Comment on above: Performed By: #### C EVIN, 13085-6, THYR, CBCA, 69268-6 #### [facility] ([id number]) [address], [address] [place] [address] Eosinophils (Bld) [#/Vol] 0.0 10*3/uL Normal 0.0-0.4 [facility] Comment on above: Performed By: #### C EVIN, 18840-4, THYR, CBCA, 48478-3 #### [facility] ([id number]) [address], [address] [place] [address] Eosinophils/100 WBC (Bld) 1.2 % Normal [facility] Comment on above: Performed By: #### C EVIN, 29363-0, THYR, CBCA, 91785-0 #### [facility] ([id number]) [address], [address] [place] [address] Erythrocyte distribution width (RBC) [Ratio] 13.7 % Normal 11.5-15.0 [facility] Comment on above: Performed By: #### C EVIN, 96962-2, THYR, CBCA, 66476-4 #### [facility] ([id number]) [address], [address] [place] [address] Hematocrit (Bld) [Volume fraction] 43.0 % Normal 35-47 [facility] Comment on above: Performed By: #### C EVIN, 63900-4, THYR, CBCA, 68835-8 #### [facility] ([id number]) [address], [facility] [address] [place] [address] Hemoglobin (Bld) [Mass/Vol] 15.0 g/dL Normal 11.7-15.5 [facility] Comment on above: Performed By: #### Mariam CLEARY, 55171-7, THYR, CBCA, 96927-4 #### [facility] ([id number]) [address], [address] [place] [address] Lymphocytes (Bld) [#/Vol] 0.9 10*3/uL Low 1.0-3.5 [facility] Comment on above: Performed By: #### Mariam CLEARY, 11448-0, THYR, CBCA, 37491-0 #### [facility] ([id number]) [address] [address] [place] [address] Lymphocytes/100 WBC (Bld) 23.6 % Normal [facility] Comment on above: Performed By: #### C EVIN, 39569-0, THYR, CBCA, 31384-1 #### [facility] ([id number]) [address], [address] [place] [address] MCH (RBC) [Entitic mass] 32.2 pg Normal 27-34 [facility] Comment on above: Performed By: #### Mariam CLEARY, 92458-2, THYR, CBCA, 05382-2 #### [facility] ([id number]) [address], [address] [place] [address] MCHC (RBC) [Mass/Vol] 35.0 g/dL Normal 32-36 [facility] Comment on above: Performed By: #### [place], 27381-2, THYR, CBCA, 87753-5 #### [facility] ([id number]) [address], [address] [place] [address] MCV (RBC) [Entitic vol] 92 fL Normal 80-100 [facility] Comment on above: Performed By: #### C EVIN, 04906-6, THYR, CBCA, 39504-8 #### [facility] ([id number]) [address], [address] [place] [address] Monocytes (Bld) [#/Vol] 0.3 10*3/uL Normal 0-0.9 [facility] Comment on above: Performed By: #### C MP, 64842-5, THYR, CBCA, 35712-9 #### [facility] ([id number]) [address], [address] [place] [address] Monocytes/100 WBC (Bld) 7.0 % Normal [facility] Comment on above: Performed By: #### C MP, 68339-3, THYR, CBCA, 69908-2 #### [facility] ([id number]) [address] [place] [address] Neutrophils/100 WBC (Bld) 67.7 % Normal [facility] Comment on above: Performed By: #### C MP, 84170-7, THYR, CBCA, 26809-0 #### [facility] ([id number]) [address] [place] [address] Platelet mean volume (Bld) [Entitic vol] 8.7 fL Normal 7-12 [facility] Comment on above: Performed By: #### C MP, 17982-2, THYR, CBCA, 37033-9 #### [facility] ([id number]) [address], [address] [place] [address] Platelets (Bld) [#/Vol] 186 10*3/uL Normal 150-450 [facility] Comment on above: Performed By: #### C MP, 43304-3, THYR, CBCA, 80490-0 #### [facility] ([id number]) [address] [place] [address] RBC COUNT 4.67 X10E12/L Normal 3.80-5.20 [facility] Comment on above: Performed By: #### C MP, 47709-8, THYR, CBCA, 08632-3 #### [facility] ([id number]) [address], [address] [place] [address] WBC (Bld) [#/Vol] 3.7 10*3/uL Low 4.0-11.0 [facility] Comment on above: Performed By: #### C MP, 16184-2, THYR, CBCA, 95634-9 #### [facility] ([id number]) [address], [address] [place] [address] COMPREHENSIVE METABOLIC PANE Mika 11-30-2023 Albumin [Mass/Vol] 4.4 g/dL Normal 3.2-5.3 [facility] Comment on above: Performed By: #### C MP, 09715-9, THYR, CBCA, 11783-8 #### [facility] ([id number]) [address] [place] [address] ALP [Catalytic activity/Vol] 65 U/L Normal 39-130 [facility] Comment on above: Performed By: #### C MP, 73646-4, THYR, CBCA, 63070-0 #### [facility] ([id number]) [address], [address] [place] [address] ALT [Catalytic activity/Vol] 59 U/L High 0-31 [facility] Comment on above: Performed By: #### C MP, 48286-8, THYR, CBCA, 11187-1 #### [facility] ([id number]) [address] [place] [address] Anion gap [Moles/Vol] 6 mmol/L Normal 5-15 [facility] Comment on above: Performed By: #### C MP, 75844-7, THYR, CBCA, 70070-1 #### [facility] ([id number]) [address], [address] [place] [address] AST [Catalytic activity/Vol] 31 U/L Normal 0-41 [facility] Comment on above: Performed By: #### C MP, 00458-5, THYR, CBCA, 75444-3 #### [facility] ([id number]) [address], [address] [place] [address] Bilirubin [Mass/Vol] 0.8 mg/dL Normal 0.3-1.2 [facility] Comment on above: Performed By: #### C MP, 61587-3, THYR, CBCA, 32563-7 #### [facility] ([id number]) [address], [address] [place] [address] Calcium [Mass/Vol] 9.1 mg/dL Normal 8.5-10.5 [facility] Comment on above: Performed By: #### C MP, 55198-7, THYR, CBCA, 25800-1 #### [facility] ([id number]) [address], [address] [place] [address] Chloride [Moles/Vol] 103 mmol/L Normal 98-109 [facility] Comment on above: Performed By: #### C MP, 91780-0, THYR, CBCA, 41500-0 #### [facility] ([id number]) [address], [address] [place] [address] CO2 [Moles/Vol] 28 mmol/L Normal 22-32 [facility] Comment on above: Performed By: #### C EVIN, 49185-2, THYR, CBCA, 86746-7 #### [facility] ([id number]) [address], [address] [place] [address] Creatinine [Mass/Vol] 0.86 mg/dL Normal 0.40-1.00 [facility] Comment on above: Result Comment: METH OD TRACEABLE TO IDMS STANDARD Performed By: #### C EVIN, 62358-1, THYR, CBCA, 42587-6 #### [facility] ([id number]) [address], [facility] [address] [place] [address] GFR/1.73 sq M.predicted among non-blacks MDRD (S/P/Bld) [Vol rate/Area] 89 mL/min/{1.73_m2} Normal >59 [facility] Comment on above: Result Comment: Reported eGFR is based on the CKD-EPI 2020 equation that does not use a race coefficient. Performed By: #### C EVIN, 92286-5, THYR, CBCA, 55449-0 #### [facility] ([id number]) [address] [address] [place] [address] Glucose [Mass/Vol] 97 mg/dL Normal 65-99 [facility] Comment on above: Performed By: #### C MP, 05586-5, THYR, CBCA, 47179-5 #### [facility] ([id number]) [address], [address] [place] [address] Potassium [Moles/Vol] 3.8 mmol/L Normal 3.5-5.0 [facility] Comment on above: Performed By: #### C MP, 59552-0, THYR, CBCA, 50364-7 #### [facility] ([id number]) [address], [address] [place] [address] Protein [Mass/Vol] 6.6 g/dL Normal 6.0-8.0 [facility] Comment on above: Performed By: #### C MP, 11039-4, THYR, CBCA, 34955-8 #### [facility] ([id number]) [address] [place] [address] Sodium [Moles/Vol] 137 mmol/L Normal 134-146 [facility] Comment on above: Performed By: #### Mariam CLEARY, 88816-7, THYR, CBCA, 68458-9 #### [facility] ([id number]) [address] [place] [address] Urea nitrogen [Mass/Vol] 9 mg/dL Normal 5-23 [facility] Comment on above: Performed By: #### Mariam CLEARY, 20695-7, THYR, CBCA, 73167-5 #### [facility] ([id number]) [address], [address] [place] [address] Lipid 1996 panelon 4 Cholesterol [Mass/Vol] 236 mg/dL High 150-200 [facility] Comment on above: Performed By: #### Mariam CLEARY, 43033-9, THYR, CBCA, 30081-0 #### [facility] ([id number]) [address] [place] [address] Cholesterol in HDL [Mass/Vol] 48 mg/dL Normal >39 [facility] Comment on above: Result Comment: HDL <40 mg/dL - High Risk HDL > or = 40mg/dL- Desirable HDL >60 mg/dL - Negative Risk Performed By: #### Mariam CLEARY, 55341-4, THYR, CBCA, 14823-6 #### [facility] ([id number]) [address] [place] [address] Cholesterol in LDL [Mass/Vol] 124 mg/dL Normal <130 [facility] Comment on above: Result Comment: LDL <100 mg/dL - Desirable LDL >160 mg/dL - High Risk Performed By: #### Mariam CLEARY, 06132-5, THYR, CBCA, 22395-5 #### [facility] ([id number]) [address] [place] [address] Cholesterol in VLDL [Mass/Vol] 64 mg/dL High 0-30 [facility] Comment on above: Performed By: #### Maraim CLEARY, 73149-6, THYR, CBCA, 22040-2 #### [facility] ([id number]) [address], [facility] [address] [place] [address] CHOLESTEROL:HDL 4.9 Normal 1.0-5.0 [facility] Comment on above: Performed By: #### Mariam CLEARY, 22066-6, THYR, CBCA, 08731-8 #### [facility] ([id number]) [address], [address] [place] [address] Triglyceride [Mass/Vol] 318 mg/dL High 27-150 [facility] Comment on above: Performed By: #### Mariam CLEARY, 60050-5, THYR, CBCA, 38304-2 #### [facility] ([id number]) [address], [address] [place] [address] THYROID PROFILEon 11-30-2023 Free T4 [Mass/Vol] 0.62 ng/dL Normal 0.61-1.60 [facility] Comment on above: Performed By: #### C MP, 17288-8, THYR, CBCA, 04599-0 #### [facility] ([id number]) [address], [address] [place] [address] TSH 0.97 uIU/mL Normal 0.49-4.67 [facility] Comment on above: Performed By: #### C MP, 42819-1, THYR, CBCA, 09697-0 #### [facility] ([id number]) [address], [address] [place] [address] Vitamin D+Metabolites [Mass/ Vol]on 11-30-2023 VITAMIN D 25 HYD TOT 25.5 ng/mL Low 30-100 [facility] Comment on above: Result Comment: Vitamin D status 25 [place] Vitamin D Deficiency <20 ng/mL Insufficiency 20-29 ng/mL Sufficiency 30-100 ng/mL Toxicity >100 ng/mL NOTE: A pediatric reference range has not been established by the janitor and cleaner of this kit. The [place] [employer] recommends a Vitamin D level of = or >20ng/mL in infants and children. Performed By: #### C EVIN, 22502-0, THYR, CBCA, 08923-7 #### [facility] ([id number]) [address], [address] [place] [address] Covid-19 PCR ([facility])on 09-11 SARS-CoV-2 (COVID-19) RNA MEGAN+probe Ql (Unsp spec) Not detected Normal NOT DETECTED [facility] Comment on above: Result Comment: This test is not yet approved or cleared by the [place] FDA. When there are no FDA-approved or cleared tests available, and other criteria are met, FDA can make tests available under an emergency access mechanism called an Emergency Use Authorization (EUA). The EUA for this test is supported by the Tooling Mechanic of Health and Human Service's (HHS's) declaration [...] consistent with SARS-CoV-2. Performed By: #### C VDTBH #### [facility] [address] [place] [address] Dr. Adis Warren Covid-19 PCR ([facility])on 09-11 SARS-CoV-2 (COVID-19) RNA MEGAN+probe Ql (Unsp spec) Not detected Normal NOT DETECTED [facility] Comment on above: Result Comment: This test is not yet approved or cleared by the [place] FDA. When there are no FDA-approved or cleared tests available, and other criteria are met, FDA can make tests available under an emergency access mechanism called an Emergency Use Authorization (EUA). The EUA for this test is supported by the Tooling Mechanic of Health and Human Service's (HHS's) declaration [...] SARS-CoV-2. Performed By: #### C VDTB #### [facility] [address] [place] [address] Dr. Adis Warren OBSOLETEon 07-04-2021 OBSOLETE Refill (NEUWIL) NERYMARITA ([id number]) 1985 F Date Time Provider Department 07/04/21 RAYMOND MEDINA During your visit today, we recorded the following information about you: Ashtyn Perez Ma 07/04/2021 11:37 AM Signed Please see pended medication. Pharmacy linked. Last ordered 05/31/2021. Ahstyn Perez Ma Allergies As of Date: 07/04/2021 (No Known [...] Encounter Status:Closed by RAYMOND MEDINA on 07/05/21 [facility] OBSOLETEon 05-27-2021 OBSOLETE Refill ([facility]) MARITA MESSINA ([id number]) 1985 F Date Time Provider Department 05/27/21 RAYMOND MEDINA [facility] During your visit today, [...] Encounter Status:Closed by RAYMOND MEDINA on 05/30/21 [facility] OBSOLETEon 04-26-2021 OBSOLETE Refill ([facility]) MARITA MESSINA ([id number]) 1985 F Date Time Provider Department 04/26/21 [...] Status:Closed by RAYMOND MEDINA on 04/27/21 Normal [facility] Coding Summary.on 05-31-2019 Coding Summary. CODING DATE: 05/31/2019 FINAL [facility] STATUS: Home (Routine DC) PAYOR: Medicaid EAPG DESCRIPTION 0390 LEVEL I PATHOLOGY ADMIT DX: REASON FOR VISIT DX: R87.610 Atypical squamous cells of undetermined significance on cytologic smear of cervix (ASC-US) FINAL DX: PRINCIPAL: N87.9 Dysplasia of cervix uteri, unspecified SECONDARY: R87.810 Cervical high risk human papillomavirus (HPV) DNA test positive PYMT PROC EAPG STAT DESCRIPTION DOCTOR NAME DATE NOTE: The code number assigned matches the documented diagnosis and / or procedure in the patient's chart. However, the narrative phrase printed from the coding software may appear abbreviated, or result in slightly different terminology. Coded By: Prachi Andres Date Saved: 05/31/2019 06:25 am Normal [facility] Gynecology Office/Clinic Not freddie 05-20-2019 Gynecology [...] and next steps Ordered: Colposcopy with biopsy 80090 Pathology Tissue Exam Pathology Tissue Exam Follow-up With When Contact Information She BINGHAM CNP In 1 year [email or web address] Additional Instructions: She BINGHAM CNP Only if needed [email or web address] Additional Instructions: Problem List/Past Medical History Ongoing [...] type 2: Father and Grandparent. Hyperlipidemia: Father. [facility] Comment on above: Result Comment: Elec tronically Signed By: She BINGHAM CNP\.br\Date and Time Signed: 05/20/19 14:48 EDT Coding Summary.on 05-06-2019 Coding Summary. CODING DATE: 05/06/2019 FINAL [facility] STATUS: Home (Routine DC) PAYOR: Medicaid EAPG DESCRIPTION 0392 PAP SMEARS 0397 LEVEL II MICROBIOLOGY TESTS ADMIT DX: REASON FOR VISIT DX: R87.610 Atypical squamous cells of undetermined significance on cytologic smear of cervix (ASC-US) FINAL DX: PRINCIPAL: R87.610 Atypical squamous cells of undetermined significance on cytologic smear of cervix (ASC-US) SECONDARY: R87.810 Cervical high risk human papillomavirus (HPV) DNA test positive PYMT PROC EAPG STAT DESCRIPTION DOCTOR NAME DATE NOTE: The code number assigned matches the documented diagnosis and / or procedure in the patient's chart. However, the narrative phrase printed from the coding software may appear abbreviated, or result in slightly different terminology. Coded By: Tish Dean CphT Date Saved: 05/06/2019 09:14 am Normal [facility] PAP [id number] 05-05-2019 Cytology report Cyto stain Doc (Cvx/Vag) Note Abnormal [facility] Comment on above: Result Comment: TEST S RESULT FLAG UNITS REF RANGE LAB Clinician Provided Cytology Information Source.............Cervix Other..............IUD No. of containers..01 ThinPrep Vial DIAGNOSIS: [A] 01 EPITHELIAL CELL ABNORMALITY. ATYPICAL SQUAMOUS CELLS OF UNDETERMINED SIGNIFICANCE (ASC-US). 01 Satisfactory for evaluation. Endocervical and/or squamous metaplastic cells (endocervical component) are present. 01 Maricarmen Stovall, Radio Station Audio Engineer (ASCP) 01 Jennifer Lopes MD, Pathologist 01 [...] <-Panic Low,>-Panic High,A-Abnormal,AA-Critical Abnormal Performed at: [address] [place] [address] Soraya Cabrera MD, Performed By: #### 1 [id number], [id number] #### [facility] [address] [place] [address] HPV 16+18+31+33+35+39+4 5+51+52+56+58+59+68 DNA Probe+sig amp Ql (Cvx) Positive Abnormal Negative [facility] Comment on above: Result Comment: This high-risk HPV test detects thirteen high- risk types (16/18/31/33/35/39/45/51/52/56/58/59/68) without differentiation. Performed at: [facility] [id number] MD Rick Lira Performed at: =[facility] [id number] MD Rick Lira Performed By: #### 1 [id number], [id number] #### [facility] [address] [place] [address] Physician Read PAPon 019 Pathologist review Noe (Unsp spec) [Interp] Note [facility] Comment on above: Result Comment: TEST S RESULT FLAG UNITS REF RANGE LAB Physician Read Pap Note 01 Performed FLAG LEGEND: L-Low Normal,H-High Normal,LL-Alert Low,HH-Alert High <-Panic Low,>-Panic High,A-Abnormal,AA-Critical Abnormal Performed at: 01 [facility] [address] [address] Soraya Cabrera MD, Performed at: [facility] [address] [id number] MD Rick Lira Performed By: #### 1 [id number], [id number] #### [facility] [address] [place] [address] Gynecology Office/Clinic Not freddie 04-29-2019 Gynecology Office/Clinic [...] results Ordered: Office Visit Level 3 Est 38585 PAP [id number] w/HPV HR US Pelvis Non-OB Complete 2. 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 Hyperlipidemia: Father. Normal [facility] Comment on above: Result Comment: Elec tronically Signed By: She BINGHAM CNP\Date and Time Signed: 04/29/19 11:36 EDT PAP [id number] 04-29-2019 Gynecological Body Site CERVIX Normal [facility] Comment on above: Performed By: #### 1 [id number], [id number] #### [facility] [address] [place] [address] Other Patient Information IUD Normal [facility] Comment on above: Performed By: #### 1 [id number], [id number] #### [facility] [address] [place] [address] Vital Signs Date Time Vital Sign Value Performing Clinician Jessica jacques 11-10-2019 14:27-0500 BMI (Body Mass Index) 35.43 kg/m2 [place], [place] 11-10-2019 14:27-0500 Body Temperature 97.59 [degF] [place], [place] 11-10-2019 14:27-0500 Body weight 90.72 kg [place], [place] 11-10-2019 14:27-0500 BP Diastolic 65 mm[Hg] [place] 11-10-2019 14:27-0500 BP Systolic 102 mm[Hg] [place] 11-10-2019 14:27-0500 Height 160 cm [place] 11-10-2019 14:27-0500 Pulse Oximetry 99 % [place] Encounters Encounter Date Encounter Type Care Provider Facility Start: 01-28-2024 End: 01-29-2024 ambulatory Caitlyn Sparrow MD Facility:[facility] Start: 01-23-2024 ambulatory [facility] Start: 11-30-2023 End: 12-01-2023 ambulatory [facility] Start: 11-30-2023 Encounter for genera l adult medical examination without abnormal findings CAITLYN SPARROW [facility] Start: 08-09-2023 Alonzo Pierre ph, MD Work Phone: Neurology Comment on above: Refill Request Start: 07-02-2023 End: 07-03-2023 ambulatory Caitlyn Sparrow MD Facility:[facility] Start: 03-09-2023 Refill Raymond Pierre ph, MD Work Phone: Neurology Comment on above: Refill Request Start: 08-24-[address] [facility] Start: 07-11-2022 End: 07-12-[address] MUNIRA DEAL Facility:[facility] Start: 05-22-2022 Get Medical Advice Raymond Medina MD Work Phone: Neurology Comment on above: Med refill Start: 03-08-2022 End: 03-09-[address] CAITLYN SPARROW Facility:[facility] Start: 02-23-2022 End: 02-23-2022 ambulatory Karel Elaine Other [employer] Other Start: 02-23-2022 Telephone encounter Karel Elaine [facility] Start: 01-09-2022 Refill Raymond Pierre ph, MD Work Phone: Neurology Comment on above: Refill Request Start: 01-04-2022 End: 01-04-2022 ambulatory Karel Elaine Other [employer] Other Start: 01-04-2022 Telephone encounter Karel Elaine [facility] Start: 12-12-2021 End: 12-12-2021 ambulatory Karel Elaine Other [employer] Other Start: 12-12-2021 Telephone encounter Karel Elaine [facility] Start: 11-30-2021 End: 12-01-[address] MUNIRA DEAL Facility:[facility] Start: 11-16-2021 End: 11-16-2021 ambulatory Karel Elaine Other [employer] Other Start: 11-16-2021 Telephone encounter Karel Elaine [facility] Start: 10-11-2021 Encounter for preprocedural laboratory examination DR MUNIRA DEAL [facility] Start: 10-11-2021 End: 10-11-[address] MUNIRA [...] 08-03-2021 End: 08-03-2021 ambulatory Karel Elaine Other [employer] Other Start: 08-03-2021 Telephone encounter Karel Elaine [facility] Start: 07-28-2021 End: 07-28-2021 ambulatory Karel Elaine Other [employer] Other Start: 07-28-2021 Telephone encounter Karel Elaine [facility] Start: 11-10-2019 End: 11-11-2019 Patient encounter procedure BRADLEY SIMMONS [facility] Start: 11-10-2019 End: 11-10-2019 Subsequent hospital visit by physician Bradley Simmons Work Phone: [facility] Comment on above: Arrived Procedures Date Procedure Procedure Detail Performing Clinician Start: 10-03-2021 Adult depression screening assessment Raymond Medina MD Work Phone: Plan of Treatment Date Care Activity Detail Author Start: 2036 Shingles Vaccine (1 of 2) Shingles Vaccine (1 of 2) [place], [place] Start: 05-11-2023 Influenza vaccination C [facility] Start: 10-03-2022 Adult depression screening assessment DEPRESSION SCREENING [facility] Start: 09-10-2022 DEPRESSION ASSESSMENT DEPRESSION ASS ESSMENT [facility] Start: 05-11-2022 Influenza vaccination C [facility] Start: 03-29-2020 End: 03-29-2020 Appointment 03/29/2020 Appointment General Surgery Bradley Simmons MD [id number] [id number] [facility] Start: 05-11-2019 Influenza vaccination Flu vaccine (# 1) [place], [place] Start: 2016 HPV TESTING HPV TESTING [facility] Start: 2016 Screening for malign ant neoplasm of cervix HPV Testing [facility] Start: 2007 Cervical cancer screen Cervical canc er screen [place], [place] Start: 2007 PAP TESTING PAP TESTING [facility] Start: 2007 Screening for malign ant neoplasm of cervix Pap Testing [facility] Start: 2005 Urine microalbumin profile DTAP,TDAP,TD (1 - Tdap) [facility] Start: 2004 HEPATITIS C SCREENING HEPATITIS C [facility] Start: 2004 Hepatitis C screening Hepatitis C [facility] Start: 2004 HIV SCREENING HIV SCREENING [facility] Start: 2004 HIV screening HIV Screening [facility] Start: 2001 HIV screen HIV screen [place], [place] Start: 12-25-1997 Urine microalbumin profile DTaP,Tdap,Td Vaccine (6 - Tdap) [facility] Start: 1997 DTaP/Tdap/Td vaccine (1 - Tdap) DTaP/Tdap/Td vaccine (1 - Tdap) [place], [place] Start: 1991 COVID-19 VACCINE (1) COVID-19 VACCIN E (1) [facility] Start: 1987 Varicella vaccine (1 of 2 - 2-dose childhood series) Varicella vaccine (1 of 2 - 2-dose childhood series) [place], [place] Start: 01-14-1987 COVID-19 VACCINE (#1) COVID-19 VACCI NE (#1) [facility] Start: 1986 HEPATITIS B (1 of 3 - 3-dose series) HEPATITIS B (1 of 3 - 3-dose series) [facility] Immunizations Immunization Date Immunization Notes Care Provider Hansel orellana 08-22-2019 influenza virus vacc ine, unspecified formulation Raymond Medina MD Work Phone: [facility] Payers Date Payer Category Payer Medicaid [place] [id number] 2019-Present [phone] [address] [place] [address] Medicaid [id number] 2019 Medicaid [id number] 2019 Medicare MEDICARE MEDICAR E A AND B [id number] 2019-Present [phone] [address] [address] [place] [address] Medicare [id number] 2019 Medicare [id number] [id number] 2014 Medicaid MEDICAID [facility] DEPT OF JOB xxxxxxxxxxxx 2014-Present [phone] [address] [place] [address] xxxxxxxxxxxx [id number] 2014 Medicare MEDICARE MEDICAR E PART A AND B xxxxxxxxxxx 2014-Present [phone] [address] [address] [place] [address] xxxxxxxxxxx [id number] .[id number] 1986 Unknown [id number] 2.16.840.1.120391.3.579.2.177 1986 Unknown [id number] 2.16.840.1.918695.3.579.2.593 1986 Unknown [id number] 2.16.840.1.050021.3.579.2.593 1986 Unknown [id number] 2.16.840.1.776047.3.579.2.593 1986 Unknown [id number] 2.16.840.1.784645.3.579.2.593 1986 Unknown [id number] 2.16.840.1.323498.3.579.2.593 1986 Unknown [id number] 2.16.840.1.284212.3.579.2.593 1986 Unknown [id number] 2.16.840.1.676359.3.579.2.593 1986 Unknown [id number] 2.16.840.1.928157.3.579.2.593 1986 Unknown [id number] 2.16.840.1.180584.3.579.2.593 1986 Unknown [id number] 2.16.840.1.855170.3.579.2.196 1986 Unknown [id number] 2.16.840.1.792240.3.579.2.196 1986 Unknown [id number] 2.16.840.1.518256.3.579.2.128 6 1986 Unknown [id number] 2.16.840.1.995474.3.579.2.128 6 1986 Unknown [id number] 2.16.840.1.657486.3.579.2.128 6 1986 Unknown [id number] 2.16.840.1.320253.3.579.2.128 6 1959 Medicaid [id number] 1958 Medicare [id number] Social History Date Type Detail Facility Start: 11-25-2018 End: 11-10-2019 Tobacco smoking status NHIS Never smoker [facility] Start: 04-21-2019 End: 11-10-2019 Alcohol intake [facility] Start: 11-10-2019 Alcohol Comment social [facility] Start: 1985 Sex Assigned At Not on file [place] Start: 11-25-2018 Tobacco use and exposure Smoke less tobacco non-user [facility] Start: 11-25-2018 History SDOH Alcohol Comment social [facility] Start: 04-21-2019 End: 08-19-2020 Sex Assigned At [facility] Start: 04-21-2019 End: 08-19-2020 History of Social function [facility] Adult Depression Screening Assessment 4 [facility] Clinical Notes 09-15-2021 to 08-09-2023 Telephone [...] Ashtyn Perez MA documented in this encounter [facility] 03-09-2023 Miscellaneous Notes Formattin g of this note might be different from the original. Please see pended medication. Pharmacy linked. Last ordered 10/25/2022. Ashtyn Perez MA documented in this encounter [facility] 07-11-2022 Note CONSULTATION PROCEDURE DATE: 07/11/2022 [...] be followed up in the office. [facility] 07-11-2022 Note CONSULTATION CONSULTATION DATE: 07/11/2022 CHIEF COMPLAINT: Trapezius and upper back pain. HISTORY OF PRESENT ILLNESS: This is a 36-year-old female who is known to the [facility]. The patient, in October of this year, had a rhizotomy radiofrequency ablation along her cervical spine. This has afforded the patient significant improvement. 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 CC: Caitlyn Sparrow M.D. [facility] 05-23-2022 Miscellaneous Notes Formattin g of this note might be different from the original. Please see pended medication. Pharmacy linked. Last ordered 10/20/2021. Ashtyn Perez Ma documented in this encounter [facility] 03-08-2022 Note CONSULTATION CONSULTATION DATE: 03/08/2022 [...] Patient does agree with plan of care. [facility] Signed and Approved by: LUDA RODRIGUEZ . 03/09/2022 13:38:00 [facility] 01-09-2022 Miscellaneous Notes Please see pended medication. Pharmacy linked. Last ordered 07/05/2021. Ashtyn Perez Ma documented in this encounter [facility] 11-30-2021 Note CONSULTATION PAIN MANAGEMENT CONSULTATION [...] time, and patient agrees to this plan. [facility] Signed and Approved by: LUDA RODRIGUEZ . 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 09/25/2021 23:23:00 [facility] Evaluation note Diagnosis Excessive physiologic tremor Essential and other specified forms of tremor documented in [facility] Other Evaluation note* Diagnosis Daytime sleepiness Narcolepsy without cataplexy [facility] Diagnosis Daytime sleepiness Narcolepsy without cataplexy [facility] Diagnosis Daytime sleepiness Narcolepsy without cataplexy documented in this encounter [facility] Summary Purpose Family History No Family History Records FoundNo Family History Records FoundNo Family History Records FoundNo Family History Records FoundNo Family History Records FoundNo Family History Records Found Advance Directives No Advanced Directives Records FoundDocuments on File Type Date Recorded Patient Communication Signals Intelligence Expl anation Advance Directives and Living Will Power of National Account Manager History of Present Illness * Bradley Simmons MD - 11/10/2019 2:00 PM EST [facility] PATIENT NAME: Marita Messina MRN NUMBER: [id number] DATE OF : 1985 PHONE NUMBER: [phone] PRIMARY CARE PHYSICIAN: No primary care provider [...] every other week Pulmonary embolism (HCC) [facility] Past Surgical History: Past Surgical History: Procedure Laterality Date HERNIA REPAIR a year had repair above belly button at [facility] HERNIA REPAIR umbilical and above belly buton also at [facility] about 2 years ago HYSTERECTOMY TUMOR REMOVAL [...] CT scan reports and images from the [facility] system E from May 2019 and March [...] section and content) DATE CREATED AUTHOR 05/31/2019 [facility] DATE CREATED AUTHOR AUTHOR'S ORGANIZ ATION 11/11/2019 [facility] DATE CREATED AUTHOR AUTHOR'S ORGANIZ ATION 12/01/2021 [facility] DATE CREATED AUTHOR AUTHOR'S ORGANIZ ATION 09/02/2022 [facility] DATE CREATED AUTHOR AUTHOR'S ORGANIZ ATION 02/03/2024 [facility] DATE CREATED AUTHOR AUTHOR'S ORGANIZ ATION 02/06/[address] [facility] Source Comments (unrecognize d section and content) In the event this informatio n is protected by the Federal Confidentiality of Alcohol and Drug Abuse Patient Records regulations: The Federal rules restrict any use of the information to criminally investigate or prosecute any alcohol or drug abuse patient.[facility] the event this information is protected by the Federal Confidentiality of Alcohol and Drug Abuse Patient Records regulations: The Federal rules restrict any use of the information to criminally investigate or prosecute any alcohol or drug abuse patient.[facility] the event this information is protected by the Federal Confidentiality of Alcohol and Drug Abuse Patient Records regulations: The Federal rules restrict any use of the information to criminally investigate or prosecute any alcohol or drug abuse patient.[facility] the event this information is protected by the Federal Confidentiality of Alcohol and Drug Abuse Patient Records regulations: The Federal rules restrict any use of the information to criminally investigate or prosecute any alcohol or drug abuse patient.[facility] Reason for Visit (unrecogniz ed section and content) Reason Onset Date Comments Refill Request 01/09/2022 Reason Onset Date Comments Refill Request 03/09/2023 Reason Onset Date Comments Refill Request 08/09/2023 Care Teams (unrecognized sec tion and content) [employer] Slicer Relationship Specialty Start Date End Date Caitlyn Sparrow [address] [place] [address] PCP - General Internal Medicine 11/25/18 [employer] S[employer] Relationship Specialty Start Date End Date Caitlyn Sparrow [address] [place] [address] PCP - General Internal Medicine 11/25/18 [employer] Slicer Relationship Specialty Start Date End Date Caitlyn Sparrow [address] [place] [address] PCP - General Internal Medicine 11/25/18 [employer] Slicer Relationship Specialty Start Date End Date Caitlyn Sparrow [address] [place] [address] PCP - General Internal Medicine 11/25/18 FOR [...] BE BASED ON THE PRIMARY CLINICAL RECORDS. [facility]. provides no warranty or guarantee of the accuracy or completeness of information in this document.
== END 2024-02-07 11:17 | disposition home or self-care (01) ==
LOC: PM 11:16
PROVIDERS: PCP Internal Medicine; Visit Provider Nurse Practitioner
DX: M47.816 Spondylosis without myelopathy or radiculopathy, lumbar region (principal); M47.812 Spondylosis without myelopathy or radiculopathy, cervical region; G89.4 Chronic pain syndrome; M79.18 Myalgia, other site
CPT/HCPCS: G0463

== ENCOUNTER 2024-02-18 10:20 | Day surgery (SDC) | payer MEDICARE, MEDICAID, SELFPAY ==
[2024-02-18 10:43] VITALS: BP 131/81; PULSE 90; TEMP 36.2; O2SAT 97
[2024-02-18 11:32] VITALS: BP 133/90; PULSE 80; O2SAT 100
[2024-02-18] MEDS: BUPIVACAINE HCL 0.25% PF 25 MG/10 ML VIAL 8 ML INJ (11:33)
[2024-02-18 11:34] VITALS: BP 130/81; PULSE 86; O2SAT 97
[2024-02-18] MEDS: LIDOCAINE HCL 2% 400 MG/20 ML MDV INJ (11:34)
--- NOTE | 2024-02-18 11:36 | W.PM.PROCNOT ---
Date of procedure: 02/18/24 Pre-op diagnosis: Pain due to lumbar spondylosis without myelopathy Post-op diagnosis: same as pre-op Procedure: Procedure: Bilateral L4-5, L5-S1 medial branch block Medications: Bupivacaine 0.25% 6cc The patient was seen and examined in the preoperative holding area.? An informed consent was obtained and placed on the chart.? The patient was brought to the medical procedure unit and placed in the prone position.? A timeout was completed verifying correct patient, procedure site, positioning, plan, and special equipment.? Using aseptic technique, the needle was placed at left L4. Under direct fluoroscopic visualization a Quincke-tipped spinal needle was advanced to the junction of the superior articulating process with the transverse process at the designated medial branch segment.? Preceded by negative aspiration, the above-mentioned injectate was placed in 1 mL aliquots.? The procedure was repeated at left L5, S1.? The needle was removed and insertion site was covered. The same procedure, at the same levels, was completed on the right side. The patient was taken to the postprocedural recovery area and monitored for an appropriate length of time before found suitable for discharge in the company of a responsible adult. Anesthesia: Local Surgeon: Sana Radford Pathology: none sent Condition: stable Disposition: no change
== END 2024-02-18 11:38 | disposition home or self-care (01) ==
PROVIDERS: PCP Internal Medicine; Visit Provider Anesthesiology
DX: M47.816 Spondylosis without myelopathy or radiculopathy, lumbar region (principal)
CPT/HCPCS: 64493; 64494

== ENCOUNTER 2024-02-21 12:39 | Outpatient (OUT) | payer MEDICARE, MEDICAID, SELFPAY ==
--- OUTSIDE RECORDS SUMMARY | 2024-02-21 12:55 | XMS_ITS | CCD ---
Author Organization [facility] Care Team Providers Care Supervisor Record Press Name Role Phone BRADLEY SIMMONS Referring Unavailable [...] DR MUNIRA Avalos Admitting Unavailable KYARA, DR CAITLNY Griffiths [facility] Unavail able TOYIN, DR [...] TOYIN, DR MUNIRA Avalos Admitting Unavailable Kyara, Caitlyn Clark [facility] Provider Kyara CLEMONS, Caitlyn Clark [facility] Ness Radford MD, Sana Doyle Attending Unavailable Kyara CLEMONS, Caitlyn Amber [facility] Ness janice Radford MD, Sana Doyle Attending Unavailable KYARACAITLYN NAJERA Referring Unavailabl e KYARA, CAITLYN Griffiths Primary [facility] Unavailjulianne e LEONIDAS SALCIDO Referring Unavailable KYARACAITLYN NAJERA [facility] Unavailjulianne e LEONIDAS SALCIDO Referring Unavailable KYARACAITLYN NAJERA [facility] UnavailLEONIDAS Grimaldo Referring Unavailable KYARACAITLYN NAJERA [facility] Unavailabl e Allergies Allergy Classification Reported Allergen(s) Allergy Type Date of Onset Reaction(s) Facility (2 sources) Acetaminophen / HYDROcodone; Translations: [HYDROCODONE-ACETA MINOPHEN] Drug Allergy 10-09-2019 [place], [place] (9 sources) Acetaminophen / HYDROcodone; Translations: [Vicodin] Drug Allergy 09-10-2014 [facility] Repository Medications Current Medications Medication Drug [...] Start: 11-20-2018 take 1 capsule by mo [facility] once daily FLUoxetine HCl (PROZAC) 40 [...] f41.1 Oct, Active take 1 tablet by [facility] every twenty-four hours Ativan 0.5 MG 1 [...] on above: take 1 capsule by mo [facility] once daily as directed perphenazine 2 [...] Chun MD on 12/03/2023 10:04 AM Normal [facility] XR SPINE CERVICAL 3 VWS OR [...] Jay MD on 12/02/2023 7:06 AM Normal [facility] CBC AND AUTO DIFFon 11-30-19 ABSOLUTE BASOPHIL 0.0 X10E9/L Normal 0.0-0.2 [facility] Comment on above: Performed By: #### C EVIN, 82749-9, THYR, CBCA, 01594-1 #### [facility] ([id number]) [address], [address] [place] [address] ABSOLUTE NEUTROPHIL 2.5 X10E9/L Normal 1.5-6.6 [facility] Comment on above: Performed By: #### C EVIN, 46291-0, THYR, CBCA, 05720-2 #### [facility] ([id number]) [address], [address] [place] [address] Basophils/100 WBC (Bld) 0.5 % Normal [facility] Comment on above: Performed By: #### C EVIN, 83131-0, THYR, CBCA, 63271-4 #### [facility] ([id number]) [address], [address] [place] [address] Eosinophils (Bld) [#/Vol] 0.0 10*3/uL Normal 0.0-0.4 [facility] Comment on above: Performed By: #### C EVIN, 23036-0, THYR, CBCA, 82759-5 #### [facility] ([id number]) [address], [address] [place] [address] Eosinophils/100 WBC (Bld) 1.2 % Normal [facility] Comment on above: Performed By: #### C EVIN, 83759-5, THYR, CBCA, 31407-7 #### [facility] ([id number]) [address], [address] [place] [address] Erythrocyte distribution width (RBC) [Ratio] 13.7 % Normal 11.5-15.0 [facility] Comment on above: Performed By: #### C EVIN, 69672-4, THYR, CBCA, 12120-4 #### [facility] ([id number]) [address], [address] [place] [address] Hematocrit (Bld) [Volume fraction] 43.0 % Normal 35-47 [facility] Comment on above: Performed By: #### C EVIN, 77934-6, THYR, CBCA, 98344-5 #### [facility] ([id number]) [address], [facility] [address] [place] [address] Hemoglobin (Bld) [Mass/Vol] 15.0 g/dL Normal 11.7-15.5 [facility] Comment on above: Performed By: #### Mariam CLEARY, 85790-5, THYR, CBCA, 62521-7 #### [facility] ([id number]) [address], [address] [place] [address] Lymphocytes (Bld) [#/Vol] 0.9 10*3/uL Low 1.0-3.5 [facility] Comment on above: Performed By: #### Mariam CLEARY, 17841-1, THYR, CBCA, 18179-8 #### [facility] ([id number]) [address] [address] [place] [address] Lymphocytes/100 WBC (Bld) 23.6 % Normal [facility] Comment on above: Performed By: #### C EVIN, 42652-1, THYR, CBCA, 73840-1 #### [facility] ([id number]) [address], [address] [place] [address] MCH (RBC) [Entitic mass] 32.2 pg Normal 27-34 [facility] Comment on above: Performed By: #### Mariam CLEARY, 78569-5, THYR, CBCA, 45283-8 #### [facility] ([id number]) [address], [address] [place] [address] MCHC (RBC) [Mass/Vol] 35.0 g/dL Normal 32-36 [facility] Comment on above: Performed By: #### C MP, 47395-0, THYR, CBCA, 93062-9 #### [facility] ([id number]) [address], [address] [place] [address] MCV (RBC) [Entitic vol] 92 fL Normal 80-100 [facility] Comment on above: Performed By: #### C EVIN, 16897-8, THYR, CBCA, 35630-8 #### [facility] ([id number]) [address], [address] [place] [address] Monocytes (Bld) [#/Vol] 0.3 10*3/uL Normal 0-0.9 [facility] Comment on above: Performed By: #### C MP, 99681-0, THYR, CBCA, 66958-0 #### [facility] ([id number]) [address], [address] [place] [address] Monocytes/100 WBC (Bld) 7.0 % Normal [facility] Comment on above: Performed By: #### C MP, 11000-7, THYR, CBCA, 27054-8 #### [facility] ([id number]) [address], [address] [place] [address] Neutrophils/100 WBC (Bld) 67.7 % Normal [facility] Comment on above: Performed By: #### C MP, 54957-5, THYR, CBCA, 12551-4 #### [facility] ([id number]) [address], [address] [place] [address] Platelet mean volume (Bld) [Entitic vol] 8.7 fL Normal 7-12 [facility] Comment on above: Performed By: #### C MP, 72734-7, THYR, CBCA, 21678-9 #### [facility] ([id number]) [address], [address] [place] [address] Platelets (Bld) [#/Vol] 186 10*3/uL Normal 150-450 [facility] Comment on above: Performed By: #### C MP, 43536-8, THYR, CBCA, 62218-4 #### [facility] ([id number]) [address], [address] [place] [address] RBC COUNT 4.67 X10E12/L Normal 3.80-5.20 [facility] Comment on above: Performed By: #### C MP, 59947-3, THYR, CBCA, 76359-4 #### [facility] ([id number]) [address], [address] [place] [address] WBC (Bld) [#/Vol] 3.7 10*3/uL Low 4.0-11.0 [facility] Comment on above: Performed By: #### C MP, 29080-2, THYR, CBCA, 40653-4 #### [facility] ([id number]) [address], [address] [place] [address] COMPREHENSIVE METABOLIC PANE Mika 11-30-2023 Albumin [Mass/Vol] 4.4 g/dL Normal 3.2-5.3 [facility] Comment on above: Performed By: #### C MP, 69680-3, THYR, CBCA, 91746-9 #### [facility] ([id number]) [address], [address] [place] [address] ALP [Catalytic activity/Vol] 65 U/L Normal 39-130 [facility] Comment on above: Performed By: #### C MP, 93240-4, THYR, CBCA, 63056-6 #### [facility] ([id number]) [address], [address] [place] [address] ALT [Catalytic activity/Vol] 59 U/L High 0-31 [facility] Comment on above: Performed By: #### C MP, 37578-4, THYR, CBCA, 75970-1 #### [facility] ([id number]) [address], [address] [place] [address] Anion gap [Moles/Vol] 6 mmol/L Normal 5-15 [facility] Comment on above: Performed By: #### C MP, 66687-3, THYR, CBCA, 72406-3 #### [facility] ([id number]) [address], [address] [place] [address] AST [Catalytic activity/Vol] 31 U/L Normal 0-41 [facility] Comment on above: Performed By: #### C MP, 86735-2, THYR, CBCA, 64243-7 #### [facility] ([id number]) [address], [address] [place] [address] Bilirubin [Mass/Vol] 0.8 mg/dL Normal 0.3-1.2 [facility] Comment on above: Performed By: #### C MP, 61942-3, THYR, CBCA, 87100-4 #### [facility] ([id number]) [address], [address] [place] [address] Calcium [Mass/Vol] 9.1 mg/dL Normal 8.5-10.5 [facility] Comment on above: Performed By: #### C MP, 97034-5, THYR, CBCA, 14926-7 #### [facility] ([id number]) [address], [address] [place] [address] Chloride [Moles/Vol] 103 mmol/L Normal 98-109 [facility] Comment on above: Performed By: #### C MP, 38854-3, THYR, CBCA, 49740-2 #### [facility] ([id number]) [address], [address] [place] [address] CO2 [Moles/Vol] 28 mmol/L Normal 22-32 [facility] Comment on above: Performed By: #### C EVIN, 06401-3, THYR, CBCA, 45134-0 #### [facility] ([id number]) [address], [address] [place] [address] Creatinine [Mass/Vol] 0.86 mg/dL Normal 0.40-1.00 [facility] Comment on above: Result Comment: METH OD TRACEABLE TO IDMS STANDARD Performed By: #### C EVIN, 00059-9, THYR, CBCA, 11130-1 #### [facility] ([id number]) [address], [facility] [address] [place] [address] GFR/1.73 sq M.predicted among non-blacks MDRD (S/P/Bld) [Vol rate/Area] 89 mL/min/{1.73_m2} Normal >59 [facility] Comment on above: Result Comment: Reported eGFR is based on the CKD-EPI 2020 equation that does not use a race coefficient. Performed By: #### C EVIN, 71340-4, THYR, CBCA, 37401-9 #### [facility] ([id number]) [address] [address] [place] [address] Glucose [Mass/Vol] 97 mg/dL Normal 65-99 [facility] Comment on above: Performed By: #### C MP, 89513-2, THYR, CBCA, 60897-7 #### [facility] ([id number]) [address], [address] [place] [address] Potassium [Moles/Vol] 3.8 mmol/L Normal 3.5-5.0 [facility] Comment on above: Performed By: #### C MP, 13818-3, THYR, CBCA, 24802-6 #### [facility] ([id number]) [address], [address] [place] [address] Protein [Mass/Vol] 6.6 g/dL Normal 6.0-8.0 [facility] Comment on above: Performed By: #### C MP, 58621-4, THYR, CBCA, 58818-2 #### [facility] ([id number]) [address], [address] [place] [address] Sodium [Moles/Vol] 137 mmol/L Normal 134-146 [facility] Comment on above: Performed By: #### Mariam CLEARY, 39651-7, THYR, CBCA, 15710-3 #### [facility] ([id number]) [address], [address] [place] [address] Urea nitrogen [Mass/Vol] 9 mg/dL Normal 5-23 [facility] Comment on above: Performed By: #### Mariam CLEARY, 21926-9, THYR, CBCA, 09810-8 #### [facility] ([id number]) [address], [address] [place] [address] Lipid 1996 panelon 4 Cholesterol [Mass/Vol] 236 mg/dL High 150-200 [facility] Comment on above: Performed By: #### Mariam CLEARY, 86339-6, THYR, CBCA, 58728-2 #### [facility] ([id number]) [address], [address] [place] [address] Cholesterol in HDL [Mass/Vol] 48 mg/dL Normal >39 [facility] Comment on above: Result Comment: HDL <40 mg/dL - High Risk HDL > or = 40mg/dL- Desirable HDL >60 mg/dL - Negative Risk Performed By: #### Mariam CLEARY, 49882-3, THYR, CBCA, 11469-8 #### [facility] ([id number]) [address], [address] [place] [address] Cholesterol in LDL [Mass/Vol] 124 mg/dL Normal <130 [facility] Comment on above: Result Comment: LDL <100 mg/dL - Desirable LDL >160 mg/dL - High Risk Performed By: #### Mariam CLEARY, 67940-0, THYR, CBCA, 39851-1 #### [facility] ([id number]) [address], [address] [place] [address] Cholesterol in VLDL [Mass/Vol] 64 mg/dL High 0-30 [facility] Comment on above: Performed By: #### Mariam CLEARY, 31971-7, THYR, CBCA, 66864-3 #### [facility] ([id number]) [address], [facility] [address] [place] [address] CHOLESTEROL:HDL 4.9 Normal 1.0-5.0 [facility] Comment on above: Performed By: #### Mariam CLEARY, 14868-2, THYR, CBCA, 69871-2 #### [facility] ([id number]) [address], [address] [place] [address] Triglyceride [Mass/Vol] 318 mg/dL High 27-150 [facility] Comment on above: Performed By: #### Mariam CLEARY, 38335-2, THYR, CBCA, 12854-4 #### [facility] ([id number]) [address], [address] [place] [address] THYROID PROFILEon 11-30-2023 Free T4 [Mass/Vol] 0.62 ng/dL Normal 0.61-1.60 [facility] Comment on above: Performed By: #### C MP, 92481-8, THYR, CBCA, 38070-4 #### [facility] ([id number]) [address], [address] [place] [address] TSH 0.97 uIU/mL Normal 0.49-4.67 [facility] Comment on above: Performed By: #### C MP, 68393-0, THYR, CBCA, 41720-8 #### [facility] ([id number]) [address], [address] [place] [address] Vitamin D+Metabolites [Mass/ Vol]on 11-30-2023 VITAMIN D 25 HYD TOT 25.5 ng/mL Low 30-100 [facility] Comment on above: Result Comment: Vitamin D status 25 [place] Vitamin D Deficiency <20 ng/mL Insufficiency 20-29 ng/mL Sufficiency 30-100 ng/mL Toxicity >100 ng/mL NOTE: A pediatric reference range has not been established by the marshmallow runner of this kit. The [employer] recommends a Vitamin D level of = or >20ng/mL in infants and children. Performed By: #### C EVIN, 79241-5, THYR, CBCA, 45269-2 #### [facility] ([id number]) [address], [address] [place] [address] Covid-19 PCR ([facility])on 09-11 SARS-CoV-2 (COVID-19) RNA MEGAN+probe Ql (Unsp spec) Not detected Normal NOT DETECTED [facility] Comment on above: Result Comment: This test is not yet approved or cleared by the [place] FDA. When there are no FDA-approved or cleared tests available, and other criteria are met, FDA can make tests available under an emergency access mechanism called an Emergency Use Authorization (EUA). The EUA for this test is supported by the Balancing Machine Operator of Health and Human Service's [...] SARS-CoV-2. Performed By: #### C VDTBH #### [facility] [address] [place] [address] Dr. Adis Warren Covid-19 PCR ([facility])on 09-11 SARS-CoV-2 (COVID-19) RNA MEGAN+probe Ql (Unsp spec) Not detected Normal NOT DETECTED [facility] Comment on above: Result Comment: This test is not yet approved or cleared by the [place] FDA. When there are no FDA-approved or cleared tests available, and other criteria are met, FDA can make tests available under an emergency access mechanism called an Emergency Use Authorization (EUA). The EUA for this test is supported by the [place] of Health and Human Service's (HHS's) declaration [...] SARS-CoV-2. Performed By: #### C VDTB #### [facility] [address] [place] [address] Dr. Adis Warren OBSOLETEon 07-04-2021 OBSOLETE Refill (NEUWIL) NERYMARITA ([id number]) 1985 F Date Time Provider Department 07/04/21 RAYMOND MEDINA During your visit today, we recorded the following information about you: Ashtyn Perez Ma 07/04/2021 11:37 AM Signed Please see pended medication. Pharmacy linked. Last ordered 05/31/2021. Ashtyn Perez Ma Allergies As of Date: 07/04/2021 [...] Encounter Status:Closed by RAYMOND MEDINA on 07/05/21 [facility] OBSOLETEon 05-27-2021 OBSOLETE Refill (NFWH) MARITA MESSINA ([id number]) 1985 F Date Time Provider Department 05/27/21 [...] Encounter Status:Closed by RAYMOND MEDINA on 05/30/21 [facility] OBSOLETEon 04-26-2021 OBSOLETE Refill (NFWH) MARITA MESSINA ([id number]) 1985 F Date Time Provider Department 04/26/21 [...] Status:Closed by RAYMOND MEDINA on 04/27/21 Normal [facility] Coding Summary.on 05-31-2019 Coding Summary. CODING DATE: 05/31/2019 FINAL [facility] STATUS: Home (Routine DC) PAYOR: Medicaid EAPG [...] Date Saved: 05/31/2019 06:25 am Normal [facility] Gynecology Office/Clinic Not freddie 05-20-2019 Gynecology Office/Clinic [...] and next steps Ordered: Colposcopy with biopsy 13550 Pathology Tissue Exam Pathology Tissue Exam Follow-up With When Contact Information She BINGHAM CNP In 1 year [email or web address] Additional Instructions: She BINGHAM CNP Only if needed [email or web address] Additional Instructions: Problem List/Past Medical History Ongoing [...] type 2: Father and Grandparent. Hyperlipidemia: Father. [facility] Comment on above: Result Comment: Elec tronically Signed By: She BINGHAM CNP\.br\Date and Time Signed: 05/20/19 14:48 EDT Coding Summary.on 05-06-2019 Coding Summary. CODING DATE: 05/06/2019 FINAL [facility] STATUS: Home (Routine DC) PAYOR: Medicaid EAPG [...] CphT Date Saved: 05/06/2019 09:14 am Normal [facility] PAP [id number] 05-05-2019 Cytology report Cyto stain Doc (Cvx/Vag) Note Abnormal [facility] Comment on above: Result Comment: TEST S RESULT FLAG UNITS REF RANGE LAB Clinician Provided Cytology Information Source.............[facility] Other..............IUD No. of containers..01 ThinPrep Vial DIAGNOSIS: [A] 01 EPITHELIAL CELL ABNORMALITY. ATYPICAL SQUAMOUS CELLS OF UNDETERMINED SIGNIFICANCE (ASC-US). 01 Satisfactory for evaluation. Endocervical and/or squamous metaplastic cells (endocervical component) are present. 01 Maricarmen Stovall, Clothes Wringer (ASCP) 01 Jennifer Lopes MD, Pathologist 01 [...] <-Panic Low,>-Panic High,A-Abnormal,AA-Critical Abnormal Performed at: [address] [facility] [place] [address] Soraya Cabrera MD, Performed By: #### 1 [id number], [id number] #### [facility] [address] [place] [address] HPV 16+18+31+33+35+39+4 5+51+52+56+58+59+68 DNA Probe+sig amp Ql (Cvx) Positive Abnormal Negative [facility] Comment on above: Result Comment: This high-risk HPV test detects thirteen high- risk types (16/18/31/33/35/39/45/51/52/56/58/59/68) without differentiation. Performed at: [facility] [id number] MD Rick Lira Performed at: =[facility] [id number] MD Rick Lira Performed By: #### 1 [id number], [id number] #### [facility] [address] [place] [address] Physician Read PAPon 019 Pathologist review Noe (Unsp spec) [Interp] Note [facility] Comment on above: Result Comment: TEST S RESULT FLAG UNITS REF RANGE LAB Physician Read Pap Note 01 Performed FLAG LEGEND: L-Low Normal,H-High Normal,LL-Alert Low,HH-Alert High <-Panic Low,>-Panic High,A-Abnormal,AA-Critical Abnormal Performed at: 01 [facility] [address] [address] Soraya Cabrera MD, Performed at: [facility] [address] [id number] MD Rick Lira Performed By: #### 1 [id number], [id number] #### [facility] [address] [place] [address] Gynecology Office/Clinic Not freddie 04-29-2019 Gynecology Office/Clinic [...] results Ordered: Office Visit Level 3 Est 27450 PAP [id number] w/HPV HR US Pelvis Non-OB Complete 2. Pelvic pain (R10.2: Pelvic and perineal pain) US ordered, will fax to [facility] Ordered: Office Visit Level 3 Est 98354 US Pelvis Non-OB Complete Visit for routine buncher hand exam (Z01.419: Encounter for gynecological examination (general) [...] Preventive Med 18 to 39 years Est 18491 Follow-up No qualifying data available Problem List/Past [...] 2: Father and Grandparent. Hyperlipidemia: Father. Normal [facility] Comment on above: Result Comment: Elec tronically Signed By: She BINGHAM CNP\Date and Time Signed: 04/29/19 11:36 EDT PAP [id number] 04-29-2019 Gynecological Body Site CERVIX Normal [facility] Comment on above: Performed By: #### 1 [id number], [id number] #### [facility] [address] [place] [address] Other Patient Information IUD Normal [facility] Comment on above: Performed By: #### 1 [id number], [id number] #### [facility] [address] [place] [address] Vital Signs Date Time Vital Sign Value Performing Clinician Jessica jacques 11-10-2019 14:27-0500 BMI (Body Mass Index) 35.43 kg/m2 [place], [place] 11-10-2019 14:27-0500 Body Temperature 97.59 [degF] [place], [place] 11-10-2019 14:27-0500 Body weight 90.72 kg [place], [place] 11-10-2019 14:27-0500 BP Diastolic 65 mm[Hg] [place] 11-10-2019 14:27-0500 BP Systolic 102 mm[Hg] [place] 11-10-2019 14:27-0500 Height 160 cm [place] 11-10-2019 14:27-0500 Pulse Oximetry 99 % [place] Encounters Encounter Date Encounter Type Care Provider Facility Start: 02-11-2024 ambulatory [facility] Start: 01-28-2024 End: 01-29-2024 ambulatory Caitlyn Sparrow MD Facility:[facility] Start: 01-23-2024 End: 02-09-2024 ambulatory [facility] Start: 11-30-2023 End: 11-30-2023 ambulatory [facility] Start: 11-30-2023 Encounter for genera l adult medical examination without abnormal findings CAITLYN SPARROW [facility] Start: 08-09-2023 Refill Raymond Pierre ph, MD Work Phone: Neurology Comment on above: Refill Request Start: 07-02-2023 End: 07-03-2023 ambulatory Caitlyn Sparrow MD Facility:[facility] Start: 03-09-2023 Refill Raymond Pierre ph, MD Work Phone: Neurology Comment on above: Refill Request Start: 08-24-[address] MUNIRA DEAL Facili ty:[facility] Start: 07-11-2022 End: 07-12-[address] MUNIRA DEAL Facility:[facility] Start: 05-22-2022 Get Medical Advice Raymond Medina MD Work Phone: Neurology Comment on above: Med refill Start: 03-08-2022 End: 03-09-[address] CAITLYN SPARROW Facility:[facility] Start: 02-23-2022 End: 02-23-2022 ambulatory Karel Elaine Other [facility] Other Start: 02-23-2022 Telephone encounter Karel Elaine [facility] Start: 01-09-2022 Refill Raymond Pierre ph, MD Work Phone: Neurology Comment on above: Refill Request Start: 01-04-2022 End: 01-04-2022 ambulatory Karel Elaine Other [facility] Other Start: 01-04-2022 Telephone encounter Karel Elaine [facility] Start: 12-12-2021 End: 12-12-2021 ambulatory Karel Elaine Other [facility] Other Start: 12-12-2021 Telephone encounter Karel Elaine [facility] Start: 11-30-2021 End: 12-01-[address] MUNIRA DEAL Facility:[facility] Start: 11-16-2021 End: 11-16-2021 ambulatory Karel Elaine Other [facility] Other Start: 11-16-2021 Telephone encounter Karel Elaine [facility] Start: 10-11-2021 Encounter for preprocedural laboratory examination DR MUNIRA DEAL [facility] Start: 10-11-2021 End: 10-11-[address] MUNIRA [...] 08-03-2021 End: 08-03-2021 ambulatory Karel Elaine Other [facility] Other Start: 08-03-2021 Telephone encounter Karel Elaine [facility] Start: 07-28-2021 End: 07-28-2021 ambulatory Karel Elaine Other [facility] Other Start: 07-28-2021 Telephone encounter Karel Elaine [facility] Start: 11-10-2019 End: 11-11-2019 Patient encounter procedure BRADLEY SIMMONS [facility] Start: 11-10-2019 End: 11-10-2019 Subsequent hospital visit by physician Bradley Simmons Work Phone: [facility] Comment on above: Arrived Procedures Date Procedure Procedure Detail Performing Clinician Start: 10-03-2021 Adult depression screening assessment Raymond Medina MD Work Phone: Plan of Treatment Date Care Activity Detail Author Start: 2036 Shingles Vaccine (1 of 2) Shingles Vaccine (1 of 2) [place], [place] Start: 05-11-2023 Influenza vaccination C [facility] Start: 10-03-2022 Adult depression screening assessment DEPRESSION SCREENING [facility] Start: 09-10-2022 DEPRESSION ASSESSMENT DEPRESSION ASS ESSMENT [facility] Start: 05-11-2022 Influenza vaccination C [facility] Start: 03-29-2020 End: 03-29-2020 Appointment 03/29/2020 Appointment General Surgery Bradley Simmons MD [address] [place] [address] [phone] [facility] Start: 05-11-2019 Influenza vaccination Flu vaccine (# 1) [place], [place] Start: 2016 HPV TESTING HPV TESTING [facility] Start: 2016 Screening for malign ant neoplasm of cervix HPV Testing [facility] Start: 2007 Cervical cancer screen Cervical canc er screen [place], [place] Start: 2007 PAP TESTING PAP TESTING [facility] Start: 2007 Screening for malign ant neoplasm of cervix Pap Testing [facility] Start: 2005 Urine microalbumin profile DTAP,TDAP,TD (1 - Tdap) [facility] Start: 2004 HEPATITIS C SCREENING HEPATITIS C [facility] Start: 2004 Hepatitis C screening Hepatitis C [facility] Start: 2004 HIV SCREENING HIV SCREENING [facility] Start: 2004 HIV screening HIV Screening [facility] Start: 2001 HIV screen HIV screen [place], [place] Start: 12-25-1997 Urine microalbumin profile DTaP,Tdap,Td Vaccine (6 - Tdap) [facility] Start: 1997 DTaP/Tdap/Td vaccine (1 - Tdap) DTaP/Tdap/Td vaccine (1 - Tdap) [place] Start: 1991 COVID-19 VACCINE (1) COVID-19 VACCIN E (1) [facility] Start: 1987 Varicella vaccine (1 of 2 - 2-dose childhood series) Varicella vaccine (1 of 2 - 2-dose childhood series) [place] Start: 01-14-1987 COVID-19 VACCINE (#1) COVID-19 VACCI NE (#1) [facility] Start: 1986 HEPATITIS B (1 of 3 - 3-dose series) HEPATITIS B (1 of 3 - 3-dose series) [facility] Immunizations Immunization Date Immunization Notes Care Provider Fa kamronty 08-22-2019 influenza virus vacc ine, unspecified formulation Raymond Medina MD Work Phone: [facility] Payers Date Payer Category Payer Medicaid [place] [id number] 2019-Present [phone] [address] [place] [address] Medicaid [id number] 2019 Medicaid [id number] 2019 Medicare MEDICARE MEDICAR E A AND B [id number] 2019-Present [phone] [address] [address] [place] [address] Medicare [id number] 2019 Medicare [id number] [id number] 2014 Medicaid MEDICAID [facility] DEPT OF JOB xxxxxxxxxxxx 2014-Present [phone] [address] [place] [address] xxxxxxxxxxxx [id number] 2014 Medicare MEDICARE MEDICAR E PART A AND B xxxxxxxxxxx 2014-Present [phone] [address] [address] [place] [address] xxxxxxxxxxx [id number] .[id number] 1986 Unknown [id number] 2.16.840.1.243561.3.579.2.177 1986 Unknown [id number] 2.16.840.1.013349.3.579.2.593 1986 Unknown [id number] 2.16.840.1.918580.3.579.2.593 1986 Unknown [id number] 2.16.840.1.296385.3.579.2.593 1986 Unknown [id number] 2.16.840.1.959225.3.579.2.593 1986 Unknown [id number] 2.16.840.1.692206.3.579.2.593 1986 Unknown [id number] 2.16.840.1.392767.3.579.2.593 1986 Unknown [id number] 2.16.840.1.671471.3.579.2.593 1986 Unknown [id number] 2.16.840.1.932759.3.579.2.593 1986 Unknown [id number] 2.16.840.1.742728.3.579.2.593 1986 Unknown [id number] 2.16.840.1.999808.3.579.2.196 1986 Unknown [id number] 2.16.840.1.342457.3.579.2.196 1986 Unknown [id number] 2.16.840.1.925104.3.579.2.128 6 1986 Unknown [id number] 2.16.840.1.737462.3.579.2.128 6 1986 Unknown [id number] 2.16.840.1.082454.3.579.2.128 6 1986 Unknown [id number] 2.16.840.1.022223.3.579.2.128 6 1986 Unknown [id number] 2.16.840.1.814235.3.579.2.128 6 1959 Medicaid [id number] 1958 Medicare [id number] Social History Date Type Detail Facility Start: 11-25-2018 End: 11-10-2019 Tobacco smoking status NHIS Never smoker [facility] Start: 04-21-2019 End: 11-10-2019 Alcohol intake Current drinker of alcohol (finding) [place], [place] Start: 11-10-2019 Alcohol Comment [place], [place] Start: 1986 Sex Assigned At Not on file [place] Start: 11-25-2018 Tobacco use and exposure Smoke less tobacco non-user [facility] Start: 11-25-2018 History SDOH Alcohol Comment social [facility] Start: 04-21-2019 End: 08-19-2020 Sex Assigned At [facility] Start: 04-21-2019 End: 08-19-2020 History of Social function [facility] Adult Depression Screening Assessment 4 [facility] Clinical Notes 09-15-2021 to 08-09-2023 Telephone Encounter [...] Ashtyn Perez MA documented in this encounter [facility] 03-09-2023 Miscellaneous Notes Formattin g of this note might be different from the original. Please see pended medication. Pharmacy linked. Last ordered 10/25/2022. Ashtyn Perez MA documented in this encounter [facility] 07-11-2022 Note CONSULTATION PROCEDURE DATE: 07/11/2022 PREOPERATIVE [...] be followed up in the office. [facility] 07-11-2022 Note CONSULTATION CONSULTATION DATE: 07/11/2022 CHIEF COMPLAINT: Trapezius and upper back pain. HISTORY OF PRESENT ILLNESS: This is a 36-year-old female who is known to the Pain Clinic. The patient, in October of this year, had a rhizotomy radiofrequency ablation along her cervical spine. This has afforded the patient significant improvement. 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 CC: Caitlyn Sparrow M.D. [facility] 05-23-2022 Miscellaneous Notes Formattin g of this note might be different from the original. Please see pended medication. Pharmacy linked. Last ordered 10/20/2021. Ashtyn Perez Ma documented in this encounter [facility] 03-08-2022 Note CONSULTATION CONSULTATION DATE: 03/08/2022 HISTORY [...] Patient does agree with plan of care. [facility] Signed and Approved by: LUDA RODRIGUEZ . 03/09/2022 13:38:00 [facility] 01-09-2022 Miscellaneous Notes Please see pended medication. Pharmacy linked. Last ordered 07/05/2021. Ashtyn Perez Ma documented in this encounter [facility] 11-30-2021 Note CONSULTATION PAIN MANAGEMENT CONSULTATION HISTORY [...] time, and patient agrees to this plan. [facility] Signed and Approved by: LUDA RODRIGUEZ . 12/01/2021 12:26:00 [facility] 09-15-2021 Note The [place], [place] NAME: MARITA MESSINA DATE OF : MEDICAL REC#: [id number] FLUTE TEACHER: [id number] LILIANA DAWKINS ADMIT DATE: 09/15/2021 12:21:00 CLIENT DELIVERY SPECIALIST DATE: 09/16/2021 11:00 DICTATING PHYSICIAN: LUDA RODRIGUEZ [...] Electronically Authenticated and Edited by: Luda Rodriguez DOCTOR OF NAPRAPATHY on 09/25/2021 11:23 PM [facility] Signed and Approved by: LUDA RODRIGUEZ . 09/25/2021 23:23:00 [facility] Evaluation note Diagnosis Excessive physiologic tremor Essential and other specified forms of tremor documented in this encounter [facility] Other Evaluation note* Diagnosis Daytime sleepiness Narcolepsy without cataplexy documented in this encounter [facility] note* Diagnosis Daytime sleepiness Narcolepsy without cataplexy [facility] Diagnosis Daytime sleepiness Narcolepsy without cataplexy documented in this encounter [facility] Summary Purpose Family History No Family History Records FoundNo Family History Records FoundNo Family History Records FoundNo Family History Records FoundNo Family History Records FoundNo Family History Records Found Advance Directives No Advanced Directives Records FoundDocuments on File Type Date Recorded Patient Ediphone Operator Expl anation Advance Directives and Living Will Power of Nuclear Waste Management Engineer History of Present Illness * Bradley Simmons MD - 11/10/2019 2:00 PM EST [facility] PATIENT NAME: Marita Messina MRN NUMBER: [id number] DATE OF : 1985 PHONE NUMBER: [phone] PRIMARY CARE PHYSICIAN: No primary care provider [...] every other week Pulmonary embolism (HCC) 2014 [facility] Past Surgical History: Past Surgical History: Procedure Laterality Date HERNIA REPAIR a year had repair above belly button at [facility] HERNIA REPAIR umbilical and above belly buton also at [facility] about 2 years ago HYSTERECTOMY TUMOR REMOVAL Left 2012 [facility] thumb [facility] Family History: Family History Problem Relation [...] CT scan reports and images from the [facility] Conjectur system E from May 2019 and March [...] section and content) DATE CREATED AUTHOR 05/31/2019 [facility] DATE CREATED AUTHOR AUTHOR'S ORGANIZ ATION 11/11/2019 [facility] DATE CREATED AUTHOR AUTHOR'S ORGANIZ ATION 12/01/2021 [facility] DATE CREATED AUTHOR AUTHOR'S ORGANIZ ATION 09/02/2022 [facility] DATE CREATED AUTHOR AUTHOR'S ORGANIZ ATION 02/03/2024 [facility] DATE CREATED AUTHOR AUTHOR'S ORGANIZ ATION 02/17/2024 [facility] Source Comments (unrecognize d section and content) In the event this informatio n is protected by the Federal Confidentiality of Alcohol and Drug Abuse Patient Records regulations: The Federal rules restrict any use of the information to criminally investigate or prosecute any alcohol or drug abuse patient.[facility] the event this information is protected by the Federal Confidentiality of Alcohol and Drug Abuse Patient Records regulations: The Federal rules restrict any use of the information to criminally investigate or prosecute any alcohol or drug abuse patient.[facility] the event this information is protected by the Federal Confidentiality of Alcohol and Drug Abuse Patient Records regulations: The Federal rules restrict any use of the information to criminally investigate or prosecute any alcohol or drug abuse patient.[facility] the event this information is protected by the Federal Confidentiality of Alcohol and Drug Abuse Patient Records regulations: The Federal rules restrict any use of the information to criminally investigate or prosecute any alcohol or drug abuse patient.[facility] Reason for Visit (unrecogniz ed section and content) Reason Onset Date Comments Refill Request 01/09/2022 Reason Onset Date Comments Refill Request 03/09/2023 Reason Onset Date Comments Refill Request 08/09/2023 Care Teams (unrecognized sec tion and content) Supervisor Record Press Relationship Specialty Start Date End Date Caitlyn Sparrow [address] [place] [address] PCP - General Internal Medicine 11/25/18 Supervisor Record Press Relationship Specialty Start Date [place] [address] PCP - General Internal Medicine 11/25/18 Supervisor Record Press Relationship Specialty Start Date End Date Caitlyn Sparrow, [place] [id number] PCP - General Internal Medicine 11/25/18 Supervisor Record Press Relationship Specialty Start Date End Date Caitlyn Sparrow [address] [place], [place] [id number] PCP - General Internal Medicine 11/25/18 FOR [...] BE BASED ON THE PRIMARY CLINICAL RECORDS. [employer] provides no warranty or guarantee of the accuracy or completeness of information in this document.
--- NOTE | 2024-02-21 13:03 | PM.CN ---
Consult Note: HPI Data of Consult Patient: known to practice within the last 3 years Requesting Physician: Michelle Randhawa NP Primary Care Provider: CAITLYN SPARROW Consult Narrative Reason for consult: f/u Narrative: Marita Mesisna a pleasant 37 year old female presents for evaluation of chronic neck and back pain. Patient has tried and failed OTC medications, home based exercise program and cervical traction. Since that time her back pain has been the most aggravating factor, especially with ADLs and housework. recent lumbar imaging consistent with lumbar spondylosis and minimal degenerative disc changes at L5-S1. Patient finds mild benefit to current medication regimen, failed diclofenac 50mg BID PRN. Since increasing baclofen to 15mg BID PRN has not noticed improvement in pain. Bilateral L4-5 l5-S1 medial branch block #2 provided 100% improvement in pain and greater than 80% improvement in functional ability immediately after and 3 hours following the injection. Patient was able to ambulate, clean house, and tolerate physical activity. cc:: CC: Michelle Randhawa NP Review of Systems ROS Status of ROS 10 or more systems reviewed and unremarkable except as noted in history and below Musculoskeletal Reports: back pain PFSH PFSH Medical History Anxiety ?F41.9 - Anxiety disorder, unspecified (ICD-10) Hiatal hernia ?K44.9 - Diaphragmatic hernia without obstruction or gangrene (ICD-10) Acid reflux ?K21.9 - Gastro-esophageal reflux disease without esophagitis (ICD-10) Pulmonary embolism ?I26.99 - Other pulmonary embolism without acute cor pulmonale (ICD-10) Asthma ?J45.909 - Unspecified asthma, uncomplicated (ICD-10) Surgical History History of surgical removal of Bartholin’s gland cyst ?Z98.890 - Other specified postprocedural states (ICD-10) ?Z87.42 - Personal history of other diseases of the female genital tract (ICD-10) History of eye surgery ?Z98.890 - Other specified postprocedural states (ICD-10) [place] teeth extracted ?K08.409 - Partial loss of teeth, unspecified cause, unspecified class (ICD-10) History of hernia repair ?Z98.890 - Other specified postprocedural states (ICD-10) ?Z87.19 - Personal history of other diseases of the digestive system (ICD-10) History of hysterectomy ?Z90.710 - Acquired absence of both cervix and uterus (ICD-10) Meds Home Medications and Allergies Home Medications ?Medication ?Instructions ?Recorded ?Confirmed ?Type albuterol sulfate 90 mcg/actuation 2 puff inhalation Q6H PRN 06/22/23 02/18/24 History aerosol inhaler shortness of breath or wheezing buspirone 15 mg tablet 15 mg PO BID 06/22/23 02/18/24 History cariprazine 3 mg capsule (Vraylar) 6 mg PO DAILY 06/22/23 02/18/24 History erenumab-aooe 70 mg/mL 70 mg subcut 06/22/23 History subcutaneous auto-injector (Aimovig Autoinjector) fluoxetine 40 mg capsule (Prozac) 40 mg PO DAILY 06/22/23 02/18/24 History omeprazole 20 mg capsule,delayed 40 mg PO BID 06/22/23 02/18/24 History release propranolol 20 mg tablet 20 mg PO Q12H 06/22/23 02/18/24 History rizatriptan 5 mg tablet 5 mg PO Q2H PRN migraine headache 06/22/23 02/18/24 History phentermine 37.5 mg tablet 18.75 mg PO DAILY 01/28/24 02/18/24 History (Adipex-P) cyclobenzaprine 10 mg tablet 10 mg PO BID 02/07/24 02/18/24 History baclofen 10 mg tablet mg 02/18/24 History Allergies Allergy/AdvReac Type Severity Reaction Status Date / Time hydrocodone [From Vicodin] Allergy Hives Verified 02/18/24 10:46 Exam Narrative Exam Narrative: diffuse myofascial pain and tenderness Constitutional Documenting provider has reviewed patient's vital signs: yes Common normals: no apparent distress, oriented x3, healthy appearing, alert and well nourished General appearance: cooperative HENPR Common normals: normocephalic, hearing grossly normal bilaterally and moist oral mucous membranes Head and scalp: normocephalic Eye Common normals: PERRL Pupil: PERRL Neck & C-Spine Common normals: full ROM General: normal visual inspection Cervical spine: pain with cervical ROM, paracervical muscle tenderness and trapezius muscle tenderness Other: pain with flexion extension and rotation axial neck pain without radiculopathy Chest Common normals: inspection of chest normal Respiratory Common normals: normal respiratory effort, no retractions and no use of accessory muscles Back & Pelvis Lumbar spine/lower back: normal to inspection, ROM limited and straight leg raise negative bilaterally Other: bilateral facet loading positive tenderness over bilateral L4-5 L5-S1 facets no radiculopathy predominately axial back pain Extremity Common normals: normal to inspection and full ROM Neuro Common normals: oriented x3, CN's II-XII intact bilaterally, moves all extremities, no focal motor deficits, no sensory deficits noted and deep tendon reflexes 2+ bilaterally Sensorium/orientation: alert Motor exam: strength 5/5 throughout and no movement abnormalities noted Psych Common normals: mental status grossly normal, thought process normal, cooperative, affect normal, speech normal and activity/motor behavior normal Speech: normal speech Thought process: normal thought process Results Additional Findings Additional findings: If on a controlled substance or opioids, I have checked an [place]AR[place] report on this patient and there are no aberrancies noted in the prescribing history.??If on a controlled substance or opioid a drug screen was completed and reviewed within the last year, and if there has not been a drug screen completed we ordered one today to monitor higher risk, state monitored pain medication use. As part of providing excellent, safe, comprehensive care, the following was completed at our patient's visit: 1. A medication reconciliation and review to ensure accurate knowledge of current/active medications, including asking our patients to inform us about any [id number] medications or herbal remedies/nutritional supplements/alternative remedies. 2. A review to specifically ensure our patients have had annual screening for screening for depression, screening for tobacco use, and screening for unhealthy alcohol use. For concerning screenings had a discussion with the patient, provided patient education, and recommended follow-up with primary care provider when appropriate. If patient noted with a risk of falling, they received education on strength, gait, and balance training to prevent future risk of falling. Assessment and Plan Assessment and Plan (1) Lumbar spondylosis: Assessment and Plan: The patient has had over 3 months of moderate to severe low back pain with functional impairment and inadequate response to conservative care including NSAIDS (unless there are contraindication such as concurrent blood thinners), multiple oral or topical pain medications, and home exercise program/physical therapy.? Patient has completed >6 weeks of guided home exercise program and/or formal physical therapy program without relief of their symptoms.? I have reviewed the imaging of the lumbar spine and no red flags were identified.? The imaging reveals radiographic findings consistent with lumbar spondylosis We discussed the risks and benefits of the procedure with the patient, and we are NOT planning on using sedation as outlined in the guidelines from Medicare unless there is a documented reason that sedation would be strongly recommended.?? The procedure will be completed with fluoroscopic guidance.? (2) Cervical spondylosis: (3) Chronic pain syndrome: (4) Myofascial pain syndrome: Plan bilateral L4-5 L5-S1 medial branch thermal RFA under fluoroscopy with IV sedation due to safety and inability to tolerate RFA safely due to anxiety and increase in pressure/pain continue cyclobenzaprine 10mg BID PRN looking to buy TENS otc as insurance would not cover avoid NSAIDs worsens GERD f/u 1 month after RFA
== END 2024-02-21 12:40 | disposition home or self-care (01) ==
LOC: PM 12:40
PROVIDERS: PCP Internal Medicine; Visit Provider Nurse Practitioner
DX: M47.816 Spondylosis without myelopathy or radiculopathy, lumbar region (principal); M47.812 Spondylosis without myelopathy or radiculopathy, cervical region; G89.4 Chronic pain syndrome; M79.18 Myalgia, other site
CPT/HCPCS: G0463

== ENCOUNTER 2024-03-03 09:04 | Day surgery (SDC) | payer MEDICARE, MEDICAID, SELFPAY ==
--- OUTSIDE RECORDS SUMMARY | 2024-03-03 09:12 | XMS_ITS | CCD ---
Author Organization [facility] Care Team Providers Care Home Housekeeper Name Role Phone BRADLEY SIMMONS Referring Unavailable [...] DR MUNIRA Avalos Attending Unavailable TOYIN, DR MUNIAR Avalos Consulting Unavailable KYARA, DR CAITLYN Griffiths Primary Care Unavail able TOYIN, DR MUNIRA Avalos Attending Unavailable RODRIGUEZ, LUDA Consulting Unavailable TOYIN, DR MUNIRA Avalos Admitting Unavailable TOYIN, DR MUNIRA Avalos Admitting Unavailable DEAL, DR MUNIRA Avalos Attending Unavailable KYARA, DR CAITLYN Griffiths Primary Care Unavail able LUDA RODRIGUEZ Consulting Unavailable TOYIN, DR MUNIRA Avalos Attending Unavailable KYARA, DR CAITLYN Griffiths Primary Care Unavail able LUDA RODRIGUEZ Consulting Unavailable TOYIN, DR MUNIRA Avalos Admitting Unavailable Kyara, Caitlyn [facility] Provider Malina CLEMONS, Sana Doyle Attending Unavailable Kyara CLEMONS, [facility] vailable Malina CLEMONS, Sana Doyle Attending Unavailable Kyara MD, [facility] vailable Kyara CLEMONS, [facility] janice Radford MD, Sana Doyle Attending Unavailable KYARA, CAITLYN Griffiths Referring Unavailabl e KYARA, CAITLYN Primary Care Unavailabl e LOLY, LEONIDAS Miles Referring Unavailable KYARA, CAITLYN Primary Care Unavailabl e LOLY, LEONIDAS E Referring Unavailable KYARA, CAITLYN Primary Care Unavailabl e LOLY, LEONIDAS Miles Referring Unavailable KYARA, CAITLYN Grfifiths Primary Care Unavailabl e KYARA, CAITLYN Griffiths Referring Unavailabl e KYARA, [facility] Primary Care Unavailabl e KYARA, CAITLYN Referring Unavailabl e KYARA, CAITLYN Primary Care Unavailabl e KYARA, CAITLYN Referring Unavailabl e KYARA, [facility] Primary Care Unavailabl e Allergies Allergy Classification Reported Allergen(s) Allergy Type Date of Onset Reaction(s) Facility Acetaminophen / HYDROcodone (2 sources) Acetaminophen / HYDROcodone; Translations: [Vicodin] Drug Allergy 10-09-2019 [facility] Repository (1 source) Acetaminophen / HYDROcodone Drug Allergy 11-10-2019 [place] (8 sources) Acetaminophen / HYDROcodone; Translations: [Vicodin] Drug Allergy 09-10-2014 [facility] Repository Medications Current Medications Medication [...] Start: 11-20-2018 take 1 capsule by [facility] once daily FLUoxetine HCl (PROZAC) 40 mg [...] f41.1 Oct, Active take 1 tablet by [facility] every twenty-four hours Ativan 0.5 MG [...] Comment on above: take 1 capsule by [facility] once daily as directed perphenazine 2 mg [...] Problem Classification Problem Date Documented Date Episodic/Chronic Cardiac dysrhythmias (2 sources) Palpitations; Translations: [Tachycardia, unspecified] Onset: 02-29-2024 Episodic Coma; stupor; and brain damage (3 sources) Daytime somnolence; Translations: [Somnolence] Episodic Diseases of white blood cells (1 source) Decreased white blood cell count, unspecified; Translations: [Decreased white blood cell count, unspecified] Onset: 02-29-2024 Chronic Essential hypertension (1 source) Essential (primary) hypertension; Translations: [Essential (primary) hypertension] Onset: 02-29-2024 Chronic Mood disorders (6 sources) Bipolar disorder; Translations: [...] nutritional; endocrine; and metabolic disorders (1 source) Obesity, unspecified; Translations: [Obesity, unspecified] Onset: 02-29-2024 Chronic Other skin disorders (1 source) Acanthosis nigricans; Translations: [Acanthosis nigricans] Onset: 02-29-2024 Episodic Residual codes; unclassified (1 source) Flushing; Translations: [Flushing] Onset: 02-29-2024 Episodic Spondylosis; intervertebral disc disorders; other back problems (8 sources) Other spondylosis with radiculopathy, cervical region; Translations: [Spondylosis without myelopathy or radiculopathy, cervical region] Onset: 09-22-2021 Chronic Unclassified (1 source) CONTACT W/AND (SUSP) EXPOS COVID-19; Translations: [CONTACT W/AND (SUSP) EXPOS COVID-19] Onset: 10-11-2021 Past or Other Problems Problem Classification Problem Date Documented Da te Episodic/Chronic Malaise and fatigue (1 source) Other fatigue; Translations: [Other fatigue] Onset: 11-30-2023 Episodic Other nutritional; endocrine; and metabolic disorders (1 source) Abnormal weight gain; Translations: [Abnormal weight gain] Onset: 11-30-2023 Episodic Spondylosis; intervertebral disc disorders; other back problems (9 sources) Cervical disc disorder with radiculopathy, unspecified cervical region; Translations: [Cervicalgia] Onset: 10-13-2021 Episodic Results Test Name Value Interpretation Reference Range Facil ity CBC AND AUTO DIFFon 02-29-20 ABSOLUTE BASOPHIL 0.0 X10E9/L Normal 0.0-0.2 [facility] Comment on above: Performed By: #### C BCA, HA1C, THYR, 45889-3 #### [facility] ([id number]) [address], [address] [place] [address] ABSOLUTE NEUTROPHIL 2.8 X10E9/L Normal 1.5-6.6 [facility] Comment on above: Performed By: #### C BCA, HA1C, THYR, 50819-6 #### [facility] ([id number]) [address], [address] [place] [address] Basophils/100 WBC (Bld) 0.7 % Normal [facility] Comment on above: Performed By: #### C BCA, HA1C, THYR, 96289-4 #### [facility] ([id number]) [address], [address] [place] [address] Eosinophils (Bld) [#/Vol] 0.1 10*3/uL Normal 0.0-0.4 [facility] Comment on above: Performed By: #### C BCA, HA1C, THYR, 10157-7 #### [facility] ([id number]) [address], [address] [place] [address] Eosinophils/100 WBC (Bld) 2.1 % Normal [facility] Comment on above: Performed By: #### C BCA, HA1C, THYR, 87098-7 #### [facility] ([id number]) [address], [address] [place] [address] Erythrocyte distribution width (RBC) [Ratio] 13.7 % Normal 11.5-15.0 [facility] Comment on above: Performed By: #### C BCA, HA1C, THYR, 77367-4 #### [facility] ([id number]) [address], [address] [place] [address] Hematocrit (Bld) [Volume fraction] 45.0 % Normal 35-47 [facility] Comment on above: Performed By: #### C BCA, HA1C, THYR, 19475-2 #### [facility] ([id number]) [address], [facility] [address] [place] [address] Hemoglobin (Bld) [Mass/Vol] 15.5 g/dL Normal 11.7-15.5 [facility] Comment on above: Performed By: #### C BCA, HA1C, THYR, 61250-6 #### [facility] ([id number]) [address], [facility] [address] [place] [address] Lymphocytes (Bld) [#/Vol] 1.4 10*3/uL Normal 1.0-3.5 [facility] Comment on above: Performed By: #### C BCA, HA1C, THYR, 15887-2 #### [facility] ([id number]) [address], [facility] [address] [place] [address] Lymphocytes/100 WBC (Bld) 28.9 % Normal [facility] Comment on above: Performed By: #### C BCA, HA1C, THYR, 53322-7 #### [facility] ([id number]) [address], [address] [place] [address] MCH (RBC) [Entitic mass] 32.0 pg Normal 27-34 [facility] Comment on above: Performed By: #### C BCA, HA1C, THYR, 86811-9 #### [facility] ([id number]) [address] [address] [place] [address] MCHC (RBC) [Mass/Vol] 34.3 g/dL Normal 32-36 [facility] Comment on above: Performed By: #### C BCA, HA1C, THYR, 47559-9 #### [facility] ([id number]) [address], [address] [place] [address] MCV (RBC) [Entitic vol] 93 fL Normal 80-100 [facility] Comment on above: Performed By: #### C BCA, HA1C, THYR, 71034-4 #### [facility] ([id number]) [address], [address] [place] [address] Monocytes (Bld) [#/Vol] 0.4 10*3/uL Normal 0-0.9 [facility] Comment on above: Performed By: #### C BCA, HA1C, THYR, 85703-2 #### [facility] ([id number]) [address], [address] [place] [address] Monocytes/100 WBC (Bld) 8.4 % Normal [facility] Comment on above: Performed By: #### Mariam BCA, HA1C, THYR, 18890-2 #### [facility] ([id number]) [address], [address] [place] [address] Neutrophils/100 WBC (Bld) 59.9 % Normal [facility] Comment on above: Performed By: #### Mariam BCA, HA1C, THYR, 81612-6 #### [facility] ([id number]) [address], [address] [place] [address] Platelet mean volume (Bld) [Entitic vol] 8.5 fL Normal 7-12 [facility] Comment on above: Performed By: #### C BCA, HA1C, THYR, 59535-7 #### [facility] ([id number]) [address], [address] [place] [address] Platelets (Bld) [#/Vol] 272 10*3/uL Normal 150-450 [facility] Comment on above: Performed By: #### C BCA, HA1C, THYR, 00903-0 #### [facility] ([id number]) [address], [address] [place] [address] RBC COUNT 4.83 X10E12/L Normal 3.80-5.20 [facility] Comment on above: Performed By: #### C BCA, HA1C, THYR, 43647-1 #### [facility] ([id number]) [address], [address] [place] [address] WBC (Bld) [#/Vol] 4.7 10*3/uL Normal 4.0-11.0 [facility] Comment on above: Performed By: #### C BCA, HA1C, THYR, 81897-4 #### [facility] ([id number]) [address], [address] [place] [address] HGB A1C (GLYCO-HGB)on 2023 Glucose [Mass/Vol] 97 mg/dL Normal [facility] Comment on above: Performed By: #### C BCA, HA1C, THYR, 42486-1 #### [facility] ([id number]) [address], [address] [place] [address] HbA1c (Bld) [Mass fraction] 5.0 % Normal 4.4-5.6 [facility] Comment on above: Result Comment: NOTE ADA Guidelines Result HgbA1c Normal : less than 5.7 % Prediabetes : 5.7 % to 6.4 % Diabetes : > 6.4 % Use with caution in patients with abnormal hemoglobin variants as the half-life of red blood cells and in vivo glycation rates are affected. Performed By: #### C BCA, HA1C, THYR, 57120-9 #### [facility] ([id number]) [address], [address] [place] [address] THYROID PROFILEon 02-29-2024 Free T4 [Mass/Vol] 0.67 ng/dL Normal 0.61-1.60 [facility] Comment on above: Performed By: #### C BCA, HA1C, THYR, 84273-3 #### [facility] ([id number]) [address], [facility] [address] [place] [address] TSH 1.84 uIU/mL Normal 0.49-4.67 [facility] Comment on above: Performed By: #### C BCA, HA1C, THYR, 96749-0 #### [facility] ([id number]) [address], [address] [place] [address] Vitamin D+Metabolites [Mass/ Vol]on 02-29-2024 VITAMIN D 25 HYD TOT 32.3 ng/mL Normal 30-100 [facility] Comment on above: Result Comment: Vitamin D status 25 [place] Vitamin D Deficiency <20 ng/mL Insufficiency 20-29 ng/mL Sufficiency 30-100 ng/mL Toxicity >100 ng/mL NOTE: A pediatric reference range has not been established by the loom changer of this kit. The [place] [employer] recommends a Vitamin D level of = or >20ng/mL in infants and children. Performed By: #### [place], 43231-7, THYR, CBCA, 65941-4 #### [facility] ([id number]) [address] [address] [place] [address] XR LUMBAR SPINE AP, LATERAL, FLEXION AND [...] Chun MD on 12/03/2023 10:04 AM Normal [facility] XR SPINE CERVICAL 3 VWS OR [...] Jay MD on 12/02/2023 7:06 AM Normal [facility] CBC AND AUTO DIFFon 11-30-19 ABSOLUTE BASOPHIL 0.0 X10E9/L Normal 0.0-0.2 [facility] Comment on above: Performed By: #### C MP, 48467-0, THYR, CBCA, 06620-8 #### [facility] ([id number]) [address], [address] [address] ABSOLUTE NEUTROPHIL 2.5 X10E9/L Normal 1.5-6.6 [facility] Comment on above: Performed By: #### C MP, 09593-0, THYR, CBCA, 73313-9 #### [facility] ([id number]) [address] [address] [place] [address] Basophils/100 WBC (Bld) 0.5 % Normal [facility] Comment on above: Performed By: #### C MP, 97871-8, THYR, CBCA, 49594-7 #### [facility] ([id number]) [address], [address] [place] [address] Eosinophils (Bld) [#/Vol] 0.0 10*3/uL Normal 0.0-0.4 [facility] Comment on above: Performed By: #### C EVIN, 36530-1, THYR, CBCA, 47493-3 #### [facility] ([id number]) [address] [address] [place] [address] Eosinophils/100 WBC (Bld) 1.2 % Normal [facility] Comment on above: Performed By: #### C EVIN, 09692-4, THYR, CBCA, 42846-0 #### [facility] ([id number]) [address] [address] [place] [address] Erythrocyte distribution width (RBC) [Ratio] 13.7 % Normal 11.5-15.0 [facility] Comment on above: Performed By: #### C EVIN, 36037-6, THYR, CBCA, 11465-0 #### [facility] ([id number]) [address] [address] [place] [address] Hematocrit (Bld) [Volume fraction] 43.0 % Normal 35-47 [facility] Comment on above: Performed By: #### C EVIN, 26380-3, THYR, CBCA, 75772-2 #### [facility] ([id number]) [address] [address] [place] [address] Hemoglobin (Bld) [Mass/Vol] 15.0 g/dL Normal 11.7-15.5 [facility] Comment on above: Performed By: #### C EVIN, 27108-1, THYR, CBCA, 66659-7 #### [facility] ([id number]) [address] [address] [place] [address] Lymphocytes (Bld) [#/Vol] 0.9 10*3/uL Low 1.0-3.5 [facility] Comment on above: Performed By: #### C EVIN, 71643-7, THYR, CBCA, 90849-5 #### [facility] ([id number]) [address] [address] [place] [address] Lymphocytes/100 WBC (Bld) 23.6 % Normal [facility] Comment on above: Performed By: #### Mariam CLEARY, 81609-2, THYR, CBCA, 47238-6 #### [facility] ([id number]) [address] [address] [place] [address] MCH (RBC) [Entitic mass] 32.2 pg Normal 27-34 [facility] Comment on above: Performed By: #### Mariam CLEARY, 41237-6, THYR, CBCA, 74368-8 #### [facility] ([id number]) [address] [address] [place] [address] MCHC (RBC) [Mass/Vol] 35.0 g/dL Normal 32-36 [facility] Comment on above: Performed By: #### Mariam CLEARY, 04031-0, THYR, CBCA, 65425-4 #### [facility] ([id number]) [address] [address] [place] [address] MCV (RBC) [Entitic vol] 92 fL Normal 80-100 [facility] Comment on above: Performed By: #### Mariam CLEARY, 53891-9, THYR, CBCA, 45557-0 #### [facility] ([id number]) [address] [address] [place] [address] Monocytes (Bld) [#/Vol] 0.3 10*3/uL Normal 0-0.9 [facility] Comment on above: Performed By: #### C EVIN, 59354-0, THYR, CBCA, 08791-5 #### [facility] ([id number]) [address] [address] [place] [address] Monocytes/100 WBC (Bld) 7.0 % Normal [facility] Comment on above: Performed By: #### C MP, 47204-3, THYR, CBCA, 28099-3 #### [facility] ([id number]) [address], [address] [place] [address] Neutrophils/100 WBC (Bld) 67.7 % Normal [facility] Comment on above: Performed By: #### C MP, 96633-0, THYR, CBCA, 48215-3 #### [facility] ([id number]) [address], [address] [place] [address] Platelet mean volume (Bld) [Entitic vol] 8.7 fL Normal 7-12 [facility] Comment on above: Performed By: #### C EVIN, 79206-1, THYR, CBCA, 05341-3 #### [facility] ([id number]) [address], [address] [place] [address] Platelets (Bld) [#/Vol] 186 10*3/uL Normal 150-450 [facility] Comment on above: Performed By: #### C MP, 24631-7, THYR, CBCA, 51440-3 #### [facility] ([id number]) [address], [facility] [address] [place] [address] RBC COUNT 4.67 X10E12/L Normal 3.80-5.20 [facility] Comment on above: Performed By: #### C MP, 52793-5, THYR, CBCA, 60082-2 #### [facility] ([id number]) [address] [address] [place] [address] WBC (Bld) [#/Vol] 3.7 10*3/uL Low 4.0-11.0 [facility] Comment on above: Performed By: #### C MP, 66658-3, THYR, CBCA, 04635-7 #### [facility] ([id number]) [address], [address] [place] [address] COMPREHENSIVE METABOLIC PANE Mika 11-30-2023 Albumin [Mass/Vol] 4.4 g/dL Normal 3.2-5.3 [facility] Comment on above: Performed By: #### C EVIN, 24052-4, THYR, CBCA, 23354-5 #### [facility] ([id number]) [address], [address] [place] [address] ALP [Catalytic activity/Vol] 65 U/L Normal 39-130 [facility] Comment on above: Performed By: #### C EVIN, 84719-8, THYR, CBCA, 76748-0 #### [facility] ([id number]) [address], [address] [place] [address] ALT [Catalytic activity/Vol] 59 U/L High 0-31 [facility] Comment on above: Performed By: #### C EVIN, 07274-6, THYR, CBCA, 79689-5 #### [facility] ([id number]) [address], [address] [place] [address] Anion gap [Moles/Vol] 6 mmol/L Normal 5-15 [facility] Comment on above: Performed By: #### C EVIN, 69362-7, THYR, CBCA, 07762-4 #### [facility] ([id number]) [address], [address] [place] [address] AST [Catalytic activity/Vol] 31 U/L Normal 0-41 [facility] Comment on above: Performed By: #### C EVIN, 30130-2, THYR, CBCA, 16779-1 #### [facility] ([id number]) [address], [address] [place] [address] Bilirubin [Mass/Vol] 0.8 mg/dL Normal 0.3-1.2 [facility] Comment on above: Performed By: #### C EVIN, 55072-8, THYR, CBCA, 33891-6 #### [facility] ([id number]) [address], [address] [place] [address] Calcium [Mass/Vol] 9.1 mg/dL Normal 8.5-10.5 [facility] Comment on above: Performed By: #### C EVIN, 73561-0, THYR, CBCA, 89286-2 #### [facility] ([id number]) [address] [address] [place] [address] Chloride [Moles/Vol] 103 mmol/L Normal 98-109 [facility] Comment on above: Performed By: #### C EVIN, 28313-6, THYR, CBCA, 92356-4 #### [facility] ([id number]) [address], [address] [place] [address] CO2 [Moles/Vol] 28 mmol/L Normal 22-32 [facility] Comment on above: Performed By: #### C EVIN, 23699-6, THYR, CBCA, 17537-7 #### [facility] ([id number]) [address], [address] [place] [address] Creatinine [Mass/Vol] 0.86 mg/dL Normal 0.40-1.00 [facility] Comment on above: Result Comment: METH OD TRACEABLE TO IDMS STANDARD Performed By: #### C EVIN, 51749-2, THYR, CBCA, 70553-0 #### [facility] ([id number]) [address] [address] [place] [address] GFR/1.73 sq M.predicted among non-blacks MDRD (S/P/Bld) [Vol rate/Area] 89 mL/min/{1.73_m2} Normal >59 [facility] Comment on above: Result Comment: Reported eGFR is based on the CKD-EPI 2020 equation that does not use a race coefficient. Performed By: #### C EVIN, 44385-2, THYR, CBCA, 39288-6 #### [facility] ([id number]) [address], [address] [place] [address] Glucose [Mass/Vol] 97 mg/dL Normal 65-99 [facility] Comment on above: Performed By: #### C EVIN, 75788-6, THYR, CBCA, 94918-7 #### [facility] ([id number]) [address], [address] [place] [address] Potassium [Moles/Vol] 3.8 mmol/L Normal 3.5-5.0 [facility] Comment on above: Performed By: #### Mariam CLEARY, 56047-0, THYR, CBCA, 29863-8 #### [facility] ([id number]) [address], [address] [place] [address] Protein [Mass/Vol] 6.6 g/dL Normal 6.0-8.0 [facility] Comment on above: Performed By: #### C EVIN, 86974-9, THYR, CBCA, 04989-6 #### [facility] ([id number]) [address] [address] [place] [address] Sodium [Moles/Vol] 137 mmol/L Normal 134-146 [facility] Comment on above: Performed By: #### C EVIN, 35566-4, THYR, CBCA, 18088-8 #### [facility] ([id number]) [address] [address] [place] [address] Urea nitrogen [Mass/Vol] 9 mg/dL Normal 5-23 [facility] Comment on above: Performed By: #### C EVIN, 09282-1, THYR, CBCA, 79703-7 #### [facility] ([id number]) [address], [address] [place] [address] Lipid 1996 panelon 4 Cholesterol [Mass/Vol] 236 mg/dL High 150-200 [facility] Comment on above: Performed By: #### Mariam CLEARY, 36295-1, THYR, CBCA, 30435-7 #### [facility] ([id number]) [address], [address] [place] [address] Cholesterol in HDL [Mass/Vol] 48 mg/dL Normal >39 [facility] Comment on above: Result Comment: HDL <40 mg/dL - High Risk HDL > or = 40mg/dL- Desirable HDL >60 mg/dL - Negative Risk Performed By: #### Mariam CLEARY, 12282-7, THYR, CBCA, 12425-2 #### [facility] ([id number]) [address], [address] [place] [address] Cholesterol in LDL [Mass/Vol] 124 mg/dL Normal <130 [facility] Comment on above: Result Comment: LDL <100 mg/dL - Desirable LDL >160 mg/dL - High Risk Performed By: #### Mariam CLEARY, 94483-0, THYR, CBCA, 26071-9 #### [facility] ([id number]) [address], [address] [place] [address] Cholesterol in VLDL [Mass/Vol] 64 mg/dL High 0-30 [facility] Comment on above: Performed By: #### Mariam CLEARY, 72896-3, THYR, CBCA, 87902-4 #### [facility] ([id number]) [address], [address] [place] [address] CHOLESTEROL:HDL 4.9 Normal 1.0-5.0 [facility] Comment on above: Performed By: #### C EVIN, 24991-6, THYR, CBCA, 50954-3 #### [facility] ([id number]) [address], [address] [place] [address] Triglyceride [Mass/Vol] 318 mg/dL High 27-150 [facility] Comment on above: Performed By: #### C EVIN, 34567-3, THYR, CBCA, 66015-7 #### [facility] ([id number]) [address], [address] [place] [address] THYROID PROFILEon 11-30-2023 Free T4 [Mass/Vol] 0.62 ng/dL Normal 0.61-1.60 [facility] Comment on above: Performed By: #### C EVIN, 77088-0, THYR, CBCA, 18296-9 #### [facility] ([id number]) [address], [address] [place] [address] TSH 0.97 uIU/mL Normal 0.49-4.67 [facility] Comment on above: Performed By: #### Mariam CLEARY, 40366-1, THYR, CBCA, 07857-3 #### [facility] ([id number]) [address], [address] [place] [address] Vitamin D+Metabolites [Mass/ Vol]on 11-30-2023 VITAMIN D 25 HYD TOT 25.5 ng/mL Low 30-100 [facility] Comment on above: Result Comment: Vitamin D status 25 [place] Vitamin D Deficiency <20 ng/mL Insufficiency 20-29 ng/mL Sufficiency 30-100 ng/mL Toxicity >100 ng/mL NOTE: A pediatric reference range has not been established by the loom changer of this kit. The [employer] [place] [employer] recommends a Vitamin D level of = or >20ng/mL in infants and children. Performed By: #### [place], [address]-6, THYR, CBCA, 90251-5 #### [facility] ([id number]) [address], [address] [place] [address] Covid-19 PCR (CVDTB)on 09-11 SARS-CoV-2 (COVID-19) RNA MEGAN+probe Ql (Unsp spec) Not detected Normal NOT DETECTED [facility] Comment on above: Result Comment: This test is not yet approved or cleared by the [place] FDA. When there are no FDA-approved or cleared tests available, and other criteria are met, FDA can make tests available under an emergency access mechanism called an Emergency Use Authorization (EUA). The EUA for this test is supported by the [place] [employer] of Health and Human Service's (HHS's) declaration [...] SARS-CoV-2. Performed By: #### C VDTB #### [facility] [address] [address] [address] Adis Warren Covid-19 PCR (CVDTB)on 09-11 SARS-CoV-2 (COVID-19) RNA MEGAN+probe Ql (Unsp spec) Not detected Normal NOT DETECTED [facility] Comment on above: Result Comment: This test is not yet approved or cleared by the [place] FDA. When there are no FDA-approved or cleared tests available, and other criteria are met, FDA can make tests available under an emergency access mechanism called an Emergency Use Authorization (EUA). The EUA for this test is supported by the [place] of Health and Human Service's (HHS's) declaration [...] consistent with SARS-CoV-2. Performed By: #### C [facility] #### [facility] [address] [place] [address] Dr. Adis Warren OBSOLETEon 07-04-2021 OBSOLETE Refill (NEUWIL) MARITA MESSINA ([id number]) 1985 F Date Time Provider Department 07/04/21 [...] Encounter Status:Closed by RAYMOND MEDINA on 07/05/21 [facility] OBSOLETEon 05-27-2021 OBSOLETE Refill (NFWH) MARITA EMSSINA ([id number]) 1985 F Date Time Provider Department 05/27/21 RAYMOND MEDINA During your visit today, we [...] Encounter Status:Closed by RAYMOND MEDINA on 05/30/21 [facility] OBSOLETEon 04-26-2021 OBSOLETE Refill (NFWH) NERYMARITA ([id number]) 1985 F Date Time Provider Department 04/26/21 RAYMOND MEDINA [facility] During your visit today, we recorded the [...] Status:Closed by RAYMOND MEDINA on 04/27/21 Normal [facility] Coding Summary.on 05-31-2019 Coding Summary. CODING DATE: 05/31/2019 FINAL [facility] STATUS: Home (Routine DC) PAYOR: Medicaid EAPG [...] Andres Date Saved: 05/31/2019 06:25 am Normal [facility] Gynecology Office/Clinic Not freddie 05-20-2019 Gynecology Office/Clinic [...] and next steps Ordered: Colposcopy with biopsy [id number] Pathology Tissue Exam Pathology Tissue Exam Follow-up With When Contact Information She BINGHAM CNP In 1 year [email or web address] Additional Instructions: She BINGHAM CNP Only if needed [email or web address] Additional Instructions: Problem List/Past Medical History Ongoing [...] 2: Father and Grandparent. Hyperlipidemia: Father. Normal [facility] Comment on above: Result Comment: Elec tronically Signed By: She BINGHAM CNP\Date and Time Signed: 05/20/19 14:48 EDT Coding Summary.on 05-06-2019 Coding Summary. CODING DATE: 05/06/2019 FINAL [facility] STATUS: Home ([facility]) PAYOR: Medicaid EAPG DESCRIPTION 0392 PAP SMEARS [...] CphT Date Saved: 05/06/2019 09:14 am Normal [facility] PAP [id number] 05-05-2019 Cytology report Cyto stain Doc (Cvx/Vag) Note Abnormal [facility] Comment on above: Result Comment: TEST S RESULT FLAG UNITS REF RANGE LAB Clinician Provided Cytology Information Source.............Cervix Other..............IUD No. of containers..01 ThinPrep Vial DIAGNOSIS: [A] 01 EPITHELIAL CELL ABNORMALITY. ATYPICAL SQUAMOUS CELLS OF UNDETERMINED SIGNIFICANCE (ASC-US). 01 Satisfactory for evaluation. Endocervical and/or squamous metaplastic cells (endocervical component) are present. 01 Maricarmen Stovall, Physical Science Technician (ASCP) 01 Jennifer Lopes MD, Pathologist 01 [...] High,A-Abnormal,AA-Critical Abnormal Performed at: 01 [facility] [address] [place] [address] Soraya Cabrera MD, Performed By: #### 1 [id number] #### [facility] Laboratory [address] [place] [address] 39300 HPV 16+18+31+33+35+39+4 5+51+52+56+58+59+68 DNA Probe+sig amp Ql (Cvx) Positive Abnormal Negative [facility] Comment on above: Result Comment: This high-risk HPV test detects thirteen high- risk types (16/18/31/33/35/39/45/51/52/56/58/59/68) without differentiation. Performed at: [facility] [address] [place], [place] [id number] MD Rick Lira Performed at: =G [facility] [id number] MD Rick Lira Performed By: #### 1 [id number], [id number] #### [facility] Laboratory [address] [place] [address] Physician Read Leyda 019 Pathologist review Noe (Unsp spec) [Interp] Note [facility] Comment on above: Result Comment: TEST S RESULT FLAG UNITS REF RANGE LAB Physician Read Pap Note 01 Performed FLAG LEGEND: L-Low Normal,H-High Normal,LL-Alert Low,HH-Alert High <-Panic Low,>-Panic High,A-Abnormal,AA-Critical Abnormal Performed at: [address] [facility] [place] [address] Soraya Cabrera MD, Performed at: [facility] [id number] MD Rick Lira Performed By: #### 1 [id number], [id number] #### [facility] [address] [place] [address] Gynecology Office/Clinic Not freddie 04-29-2019 Gynecology Office/Clinic [...] results Ordered: Office Visit Level 3 Est 16960 PAP [id number] w/HPV HR US Pelvis Non-OB Complete 2. 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 Hyperlipidemia: Father. Normal [facility] Comment on above: Result Comment: Elec tronically Signed By: She BINGHAM CNP.jeanie\Date and Time Signed: 04/29/19 11:36 EDT PAP [id number] 04-29-2019 Gynecological Body Site CERVIX Normal [facility] Comment on above: Performed By: #### 1 [id number], [id number] #### [facility] Laboratory [address] [place] [address] Other Patient Information IUD Normal [facility] Comment on above: Performed By: #### 1 [id number], [id number] #### [facility] [address] [place] [address] Vital Signs Date Time Vital Sign Value Performing Clinician Jessica jacques 11-10-2019 14:27-0500 BMI (Body Mass Index) 35.43 kg/m2 [facility] [place] 11-10-2019 14:27-0500 Body Temperature 97.59 [degF] [facility] [place] 11-10-2019 14:27-0500 Body weight 90.72 kg [facility] , [place] 11-10-2019 14:27-0500 BP Diastolic 65 mm[Hg] [facility] [place] 11-10-2019 14:27-0500 BP Systolic 102 mm[Hg] [facility] [place] 11-10-2019 14:270500 Height 160 cm Bradley Simmons [place], [place] 11-10-2019 14:27-0500 Pulse Oximetry 99 % Bradley Simmons [place], [place] Encounters Encounter Date Encounter Type Care Provider Facility Start: 02-29-2024 End: 02-29-2024 ambulatory CAITLYN SPARROW [facility] Start: 02-18-2024 End: 02-18-2024 ambulatory Sana Radofrd MD Facility:[facility] Start: 02-11-2024 ambulatory [facility] Start: 01-28-2024 End: 01-28-2024 ambulatory Sana Radford MD Facility:[facility] Start: 01-23-2024 End: 02-09-2024 ambulatory [facility] Start: 11-30-2023 End: 11-30-2023 ambulatory [facility] Start: 11-30-2023 Encounter for genera l adult medical examination without abnormal findings ACITLYN KYARA [facility] Start: 08-09-2023 Refill Raymond Pierre ph, MD Work Phone: Neurology Comment on above: Refill Request Start: 07-02-2023 End: 07-02-2023 ambulatory Caitlyn Sparrow MD Facility:[facility] Start: 03-09-2023 Refill Raymond Pierre ph, MD Work Phone: Neurology Comment on above: Refill Request Start: 08-24-[address] MUNIRA DEAL Facili ty:[facility] Start: 07-11-2022 End: 07-12-[address] MUNIRA DEAL Facility:[facility] Start: 05-22-2022 Get Medical Advice Raymond Medina MD Work Phone: Neurology Comment on above: Med refill Start: 03-08-2022 End: 03-09-[address] CAITLYN SPARROW Facility: Start: 02-23-2022 End: 02-23-2022 ambulatory Karel Elaine Other [employer] Other Start: 02-23-2022 Telephone encounter Karel Elaine [facility] Start: 01-09-2022 Refill Raymond Pierre ph, MD Work Phone: Neurology Comment on above: Refill Request Start: 01-04-2022 End: 01-04-2022 ambulatory Karel Elaine Other [employer] Other Start: 01-04-2022 Telephone encounter Karel Elaine [facility] Start: 12-12-2021 End: 12-12-2021 ambulatory Karel Elaine Other [employer] Other Start: 12-12-2021 Telephone encounter Karel Elaine [facility] Start: 11-30-2021 End: 12-01-[address] MUNIRA DEAL Facility:[facility] Start: 11-16-2021 End: 11-16-2021 ambulatory Karel Elaine Other [employer] Other Start: 11-16-2021 Telephone encounter Karel Elaine [facility] Start: 10-11-2021 Encounter for preprocedural laboratory examination DR MUNIRA DEAL [facility] Start: 10-11-2021 End: 10-11-[address] MUNIRA [...] 08-03-2021 End: 08-03-2021 ambulatory Karel Elaine Other [facility] [employer] Other Start: 08-03-2021 Telephone encounter Karel Elaine [facility] Start: 07-28-2021 End: 07-28-2021 ambulatory Karel Elaine Other [employer] Other Start: 07-28-2021 Telephone encounter Karel Elaine [facility] Start: 11-10-2019 End: 11-11-2019 Patient encounter procedure BRADLEY SIMMONS [facility] Start: 11-10-2019 End: 11-10-2019 Subsequent hospital visit by physician Bradley Simmons Work Phone: [facility] Comment on above: Arrived Procedures Date Procedure Procedure Detail Performing Clinician Start: 10-03-2021 Adult depression screening assessment Raymond Medina MD Work Phone: Plan of Treatment Date Care Activity Detail Author Start: 2036 Shingles Vaccine (1 of 2) Shingles Vaccine (1 of 2) [place], [place] Start: 05-11-2023 Influenza vaccination C [facility] Start: 10-03-2022 Adult depression screening assessment DEPRESSION SCREENING [facility] Start: 09-10-2022 DEPRESSION ASSESSMENT DEPRESSION ASS ESSMENT [facility] Start: 05-11-2022 Influenza vaccination C [facility] Start: 03-29-2020 End: 03-29-2020 Appointment 03/29/2020 Appointment General Surgery Bradley Simmons MD [facility] [place] [id number] [facility] Start: 05-11-2019 Influenza vaccination Flu vaccine (# 1) [place], [place] Start: 2016 HPV TESTING HPV TESTING [facility] Start: 2016 Screening for malign ant neoplasm of cervix HPV Testing [facility] Start: 2007 Cervical cancer screen Cervical canc er screen [place], [place] Start: 2007 PAP TESTING PAP TESTING [facility] Start: 2007 Screening for malign ant neoplasm of cervix Pap Testing [facility] Start: 2005 Urine microalbumin profile DTAP,TDAP,TD (1 - Tdap) [facility] Start: 2004 HEPATITIS C SCREENING HEPATITIS C [facility] Start: 2004 Hepatitis C screening Hepatitis C [facility] Start: 2004 HIV SCREENING HIV SCREENING [facility] Start: 2004 HIV screening HIV Screening [facility] Start: 2001 HIV screen HIV screen [place], [place] Start: 12-25-1997 Urine microalbumin profile DTaP,Tdap,Td Vaccine (6 - Tdap) [facility] Start: 1997 DTaP/Tdap/Td vaccine (1 - Tdap) DTaP/Tdap/Td vaccine (1 - Tdap) [place] Start: 1991 COVID-19 VACCINE (1) COVID-19 VACCIN E (1) [facility] Start: 1987 Varicella vaccine (1 of 2 - 2-dose childhood series) Varicella vaccine (1 of 2 - 2-dose childhood series) [place] Start: 01-14-1987 COVID-19 VACCINE (#1) COVID-19 VACCI NE (#1) [facility] Start: 1986 HEPATITIS B (1 of 3 - 3-dose series) HEPATITIS B (1 of 3 - 3-dose series) [facility] Immunizations Immunization Date Immunization Notes Care Provider Hansel orellana 08-22-2019 influenza virus vacc ine, unspecified formulation Raymond Medina MD Work Phone: [facility] Payers Date Payer Category Payer Medicaid MEDICAID [facility] MEDICAID [id number] 2019-Present [phone] [address] [place] [address] Medicaid [id number] 2019 Medicaid [id number] .[id number] 2019 Medicare MEDICARE MEDICAR E A AND B [id number] 2019-Present [phone] [place] [address] Medicare [id number] .[id number] 2019 Medicare [id number] [id number] .[id number] 2014 Medicaid MEDICAID [facility] DEPT OF JOB xxxxxxxxxxxx 2014-Present [phone] [address] [place] [address] xxxxxxxxxxxx [id number] .[id number] 2014 Medicare MEDICARE MEDICAR E PART A AND B xxxxxxxxxxx 2014-Present [phone] [place] [address] xxxxxxxxxxx [id number] .[id number] 1986 Unknown [id number] 2.16.840.1.847181.3.579.2.177 1986 Unknown [id number] 2.16.840.1.391067.3.579.2.593 1986 Unknown [id number] 2.16840.1.717236.3.579.2.593 1986 Unknown [id number] 2.16.840.1.736375.3.579.2.593 1986 Unknown [id number] 2.16.840.1.817260.3.579.2.593 1986 Unknown [id number] 2.16.840.1.014277.3.579.2.593 1986 Unknown [id number] 2.16.840.1.286755.3.579.2.593 1986 Unknown [id number] 2.16.840.1.423486.3.579.2.593 1986 Unknown [id number] 2.16.840.1.408548.3.579.2.593 1986 Unknown [id number] 2.16.840.1.670156.3.579.2.593 1986 Unknown [id number] 2.16.840.1.653687.3.579.2.196 1986 Unknown [id number] 2.16.840.1.468141.3.579.2.196 1986 Unknown [id number] 2.16.840.1.086839.3.579.2.196 1986 Unknown [id number] 2.16.840.1.858068.3.579.2.128 6 1986 Unknown [id number] 2.16.840.1.762120.3.579.2.128 6 1986 Unknown [id number] 2.16.840.1.956951.3.579.2.128 6 1986 Unknown [id number] 2.16.840.1.442906.3.579.2.128 6 1986 Unknown [id number] 2.16.840.1.351979.3.579.2.128 6 1986 Unknown [id number] 2.16.840.1.631189.3.579.2.128 6 1986 Unknown [id number] 2.16.840.1.554995.3.579.2.128 6 1986 Unknown [id number] 2.16.840.1.937406.3.579.2.128 6 1959 Medicaid [id number] 1958 Medicare [id number] Social History Date Type Detail Facility Start: 11-25-2018 End: 11-10-2019 Tobacco smoking status [facility] Never smoker [facility] Start: 04-21-2019 End: 11-10-2019 Alcohol intake Current drinker of alcohol (finding) [facility] Start: 11-10-2019 Alcohol Comment [facility] Start: 1985 Sex Assigned At Not on file M juan [facility] Start: 11-25-2018 Tobacco use and exposure Smoke less tobacco non-user [facility] Start: 11-25-2018 History SDOH Alcohol Comment [facility] Start: 04-21-2019 End: 08-19-2020 Sex Assigned At [facility] Start: 04-21-2019 End: 08-19-2020 History of Social function [facility] Adult Depression Screening Assessment 4 [facility] Clinical Notes 09-15-2021 to 08-09-2023 Telephone Encounter [...] Ashtyn Perez MA documented in this encounter [facility] 03-09-2023 Miscellaneous Notes Formattin g of this note might be different from the original. Please see pended medication. Pharmacy linked. Last ordered 10/25/2022. Ashtyn Perez MA documented in this encounter [facility] 07-11-2022 Note CONSULTATION PROCEDURE DATE: 07/11/2022 PREOPERATIVE [...] be followed up in the office. [facility] 07-11-2022 Note CONSULTATION CONSULTATION DATE: 07/11/2022 CHIEF COMPLAINT: Trapezius and upper back pain. HISTORY OF PRESENT ILLNESS: This is a 36-year-old female who is known to the [facility]. The patient, in October of this year, had a rhizotomy radiofrequency ablation along her cervical spine. This has afforded the patient significant improvement. 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 CC: Caitlyn Sparrow M.D. [facility] 05-23-2022 Miscellaneous Notes Formattin g of this note might be different from the original. Please see pended medication. Pharmacy linked. Last ordered 10/20/2021. Ashtyn Perez Ma documented in this encounter [facility] 03-08-2022 Note CONSULTATION CONSULTATION DATE: 03/08/2022 HISTORY [...] Patient does agree with plan of care. [facility] Signed and Approved by: LUDA RODRIGUEZ . 03/09/2022 13:38:00 [facility] 01-09-2022 Miscellaneous Notes Please see pended medication. Pharmacy linked. Last ordered 07/05/2021. Ashtyn Perez Ma documented in this encounter [facility] 11-30-2021 Note CONSULTATION PAIN MANAGEMENT CONSULTATION HISTORY [...] time, and patient agrees to this plan. [facility] Signed and Approved by: LUDA RODRIGUEZ . 12/01/2021 12:26:00 [facility] 09-15-2021 Note The [place], [place] NAME: MARITA MESSINA DATE OF : MEDICAL REC#: [id number] TENNIS BALL COVERER HAND: 1421 LILIANA DAWKINS ADMIT DATE: 09/15/2021 12:21:00 OPERATOR HELPER DATE: 09/16/2021 11:00 DICTATING PHYSICIAN: LUDA RODRIGUEZ [...] Rodriguez CNP on 09/25/2021 11:23 PM EST [facility] Signed and Approved by: LUDA RODRIGUEZ . 09/25/2021 23:23:00 [facility] Evaluation note Diagnosis Excessive physiologic tremor Essential and other specified forms of tremor [facility] Pro[facility] Comfort [place] Other Evaluation note* Diagnosis Daytime sleepiness Narcolepsy without cataplexy [facility] Diagnosis Daytime sleepiness Narcolepsy without cataplexy [facility] Diagnosis Daytime sleepiness Narcolepsy without cataplexy documented in this encounter [facility] Summary Purpose Family History No Family History Records FoundNo Family History Records FoundNo Family History Records FoundNo Family History Records FoundNo Family History Records FoundNo Family History Records Found Advance Directives No Advanced Directives Records FoundDocuments on File Type Date Recorded 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 Expl anation Advance Directives and Living Will Power of [employer] History of Present Illness * Bradley Simmons MD - 11/10/2019 2:00 PM EST [facility] PATIENT NAME: Marita Messina MRN NUMBER: [id number] DATE OF : 1985 PHONE NUMBER: [phone] PRIMARY CARE PHYSICIAN: No primary care provider [...] every other week Pulmonary embolism (HCC) 2014 [facility] Past Surgical History: Past Surgical History: Procedure Laterality Date HERNIA REPAIR a year had repair above belly button at [facility] HERNIA REPAIR umbilical and above belly buton also at [facility] about 2 years ago HYSTERECTOMY TUMOR REMOVAL Left 2012 left thumb at [facility] Family History: Family History Problem Relation [...] scan reports and images from the [facility] E from May 2019 and March [...] section and content) DATE CREATED AUTHOR 05/31/2019 [facility] DATE CREATED AUTHOR AUTHOR'S ORGANIZ ATION 11/11/2019 [facility] DATE CREATED AUTHOR AUTHOR'S ORGANIZ ATION 12/01/2021 [facility] DATE CREATED AUTHOR AUTHOR'S ORGANIZ ATION 09/02/2022 [facility] DATE CREATED AUTHOR AUTHOR'S ORGANIZ ATION 03/02/2024 [facility] DATE CREATED AUTHOR AUTHOR'S ORGANIZ ATION 03/02/2024 [facility] Source Comments (unrecognize d section and content) In the event this informatio n is protected by the Federal Confidentiality of Alcohol and Drug Abuse Patient Records regulations: The Federal rules restrict any use of the information to criminally investigate or prosecute any alcohol or drug abuse patient.[facility] the event this information is protected by the Federal Confidentiality of Alcohol and Drug Abuse Patient Records regulations: The Federal rules restrict any use of the information to criminally investigate or prosecute any alcohol or drug abuse patient.[facility] the event this information is protected by the Federal Confidentiality of Alcohol and Drug Abuse Patient Records regulations: The Federal rules restrict any use of the information to criminally investigate or prosecute any alcohol or drug abuse patient.[facility] the event this information is protected by the Federal Confidentiality of Alcohol and Drug Abuse Patient Records regulations: The Federal rules restrict any use of the information to criminally investigate or prosecute any alcohol or drug abuse patient.[facility] Reason for Visit (unrecogniz ed section and content) Reason Onset Date Comments Refill Request 01/09/2022 Reason Onset Date Comments Refill Request 03/09/2023 Reason Onset Date Comments Refill Request 08/09/2023 Care Teams (unrecognized sec tion and content) Home Housekeeper Relationship Specialty Start Date End Date Caitlyn Sparrow [address] [place] [address] PCP - General Internal Medicine 11/25/18 Home Housekeeper Relationship Specialty Start Date End Date Caitlyn Sparrow [address] [place] [address] PCP - General Internal Medicine 11/25/18 Home Housekeeper Relationship Specialty Start Date End Date Caitlyn [place] [address] PCP - General Internal Medicine 11/25/18 Home Housekeeper Relationship Specialty Start Date End Date Caitlyn Sparrow [address] [facility] [place] [address] PCP - General Internal Medicine 11/25/18 FOR [...] BE BASED ON THE PRIMARY CLINICAL RECORDS. ITS Compliance. provides no warranty or guarantee of the accuracy or completeness of information in this document.
[2024-03-03 09:18] VITALS: BP 128/86; PULSE 99; TEMP 36.2; O2SAT 100
[2024-03-03] MEDS: 0.9 % SODIUM CHLORIDE 500 ML IV (09:43)
[2024-03-03] MEDS: BUPIVACAINE HCL 0.25% PF 25 MG/10 ML VIAL INJ (10:15)
[2024-03-03] MEDS: TRIAMCINOLONE ACETONIDE 40 MG/ML VIAL INJ (10:15)
[2024-03-03] MEDS: LIDOCAINE HCL 2% 400 MG/20 ML MDV 15 ML INJ (10:16)
--- NOTE | 2024-03-03 10:26 | P.ON_ITS ---
Date of procedure: 03/03/24 Pre-op diagnosis: Pain due to lumbar spondylosis without myelopathy Post-op diagnosis: same as pre-op Procedure: Procedure: Bilateral L4-5, L5-S1 radiofrequency ablation Medications: Bupivacaine 0.25% 6cc, lidocaine 2% 5cc, kenalog 80mg The patient was seen and examined in the preoperative holding area.? The site was marked.? Written informed consent was obtained and placed on the chart.? The patient was brought to the medical procedure unit and placed in the prone position.? A timeout was completed verifying correct patient, procedure, positioning, and special requirements.? The skin overlying the target points, the designated medial branch, were prepped and draped in the usual sterile fashion.? The target point was achieved with a 20-gauge 15 cm with a 10 mm curved active tip radiofrequency cannula under direct fluoroscopic visualization.? The needle was inserted at level L4 on the right side. Needle tip position was confirmed with lateral fluoroscopic position.? Motor stimulation was carried out at 2 Hz up to 5 volts with the absence of extremity activity.? This was repeated at level L5, S1 on right side.?? Sensory stimulation was carried out.? Concordant pain was realized at the above- mentioned sites.? Then radiofrequency lesioning was carried out times 90 seconds at 80 degrees times 2 lesions at each level.? The radiofrequency probe was removed prior to cannula removal.? The above-mentioned injectate was placed in 1 mL increments.? The needle was removed. The same procedure, with the same steps, was then completed on the left side at the same levels. Insertion sites were covered.? The patient was taken to the postoperative recovery area and monitored for an appropriate length of time before being found suitable for discharge in the company of a responsible adult. Anesthesia: MAC Surgeon: Sana Radford Pathology: none sent Condition: stable Disposition: no change
[2024-03-03 10:28] VITALS: BP 116/77; PULSE 82; TEMP 36.4; O2SAT 100
[2024-03-03 10:30] VITALS: BP 114/73; PULSE 83; TEMP 36.4; O2SAT 97
== END 2024-03-03 10:50 | disposition home or self-care (01) ==
LOC: SURGOUT 09:05
PROVIDERS: PCP Internal Medicine; Visit Provider Anesthesiology
PROC: (CPT 1992; principal; 2024-03-03 09:50)
DX: M47.816 Spondylosis without myelopathy or radiculopathy, lumbar region (principal)
CPT/HCPCS: 64635; 64636; J0665; J2704; J3301

== ENCOUNTER 2024-03-12 09:51 | Outpatient (OUT) | payer MEDICARE, MEDICAID, SELFPAY ==
--- NOTE | 2024-03-12 09:55 | P.CN_ITS ---
Consult Note: HPI Data of Consult Patient: known to practice within the last 3 years Requesting Physician: Michelle Randhawa NP Primary Care Provider: CAITLYN SPARROW Consult Narrative Reason for consult: f/u Narrative: Marita Messina a pleasant 38 year old female presents for evaluation of chronic neck and back pain. Patient has tried and failed OTC medications, home based exercise program and cervical traction. Since that time her back pain has been the most aggravating factor, especially with ADLs and housework. recent lumbar imaging consistent with lumbar spondylosis and minimal degenerative disc changes at L5-S1. Patient finds mild benefit to current medication regimen, failed diclofenac 50mg BID PRN. Since increasing baclofen to 15mg BID PRN has not noticed improvement in pain. Mobic 7.5mg BID without side effect. Underwent bilateral L4-5 L5-S1 facet RFA on 03/03/24 with significant increase in pain 4 hours after the procedure, patient reporting 9/10 pain constant in low back and bilateral hips. She went to the ER in [place] where patient reports she had no imaging but morphine shot and percocet and was sent home with percocet 5-325mg QID PRN moderate to severe pain with mild benefit. Patient has no benefit at this time to mobic and flexeril, previously failed diclofenac tizanidine and baclofen. Patient denies fevers/chills, numbness tingling weakness and loss of bowel/bladder. cc:: CC: Michelle Randhawa NP Review of Systems ROS Status of ROS 10 or more systems reviewed and unremark able except as noted in history and below Musculoskeletal Reports: back pain and joint pain PFSH PFSH Medical History Anxiety ?F41.9 - Anxiety disorder, unspecified (ICD-10) Hiatal hernia ?K44.9 - Diaphragmatic hernia without obstruction or gangrene (ICD-10) Acid reflux ?K21.9 - Gastro-esophageal reflux disease without esophagitis (ICD-10) Pulmonary embolism ?I26.99 - Other pulmonary embolism without acute cor pulmonale (ICD-10) Asthma ?J45.909 - Unspecified asthma, uncomplicated (ICD-10) Surgical History History of surgical removal of Bartholin’s gland cyst ?Z98.890 - Other specified postprocedural states (ICD-10) ?Z87.42 - Personal history of other diseases of the female genital tract (ICD-10) History of eye surgery ?Z98.890 - Other specified postprocedural states (ICD-10) [place] teeth extracted ?K08.409 - Partial loss of teeth, unspecified cause, unspecified class (ICD- 10) History of hernia repair ?Z98.890 - Other specified postprocedural states (ICD-10) ?Z87.19 - Personal history of other diseases of the digestive system (ICD-10) History of hysterectomy ?Z90.710 - Acquired absence of both cervix and uterus (ICD-10) Meds Home Medications and Allergies Home Medications ?Medication ?Instructions ?Recorded ?Confirmed ?Type albuterol sulfate 90 mcg/actuation 2 puff inhalation Q6H PRN 06/22/23 03/03/24 History aerosol inhaler shortness of breath or wheezing buspirone 15 mg tablet 15 mg PO BID 06/22/23 03/03/24 History cariprazine 3 mg capsule (Vraylar) 6 mg PO DAILY 06/22/23 03/03/24 History erenumab-aooe 70 mg/mL 70 mg subcut 06/22/23 History subcutaneous auto-injector (Aimovig Autoinjector) fluoxetine 40 mg capsule (Prozac) 40 mg PO DAILY 06/22/23 03/03/24 History omeprazole 20 mg capsule,delayed 40 mg PO BID 06/22/23 03/03/24 History release propranolol 20 mg tablet 20 mg PO Q12H 06/22/23 03/03/24 History rizatriptan 5 mg tablet 5 mg PO Q2H PRN migraine headache 06/22/23 03/03/24 History phentermine 37.5 mg tablet 18.75 mg PO DAILY 01/28/24 03/03/24 History (Adipex-P) cyclobenzaprine 10 mg tablet 10 mg PO BID 02/07/24 03/03/24 History baclofen 10 mg tablet mg 02/18/24 History oxycodone-acetaminophen 5 mg-325 1 tab PO TID PRN pain #21 tabs 03/12/24 Rx mg tablet (Percocet) Allergies Allergy/AdvReac Type Severity Reaction Status Date / Time hydrocodone [From Vicodin] Allergy Hives Verified 03/03/24 09:21 Exam Narrative Exam Narrative: diffuse myofascial pain and tenderness Constitutional Documenting provider has reviewed patient's vital signs: yes Common normals: no apparent distress, oriented x3, healthy appearing, alert and well nourished General appearance: cooperative HENMT Common normals: normocephalic, hearing grossly normal bilaterally and moist oral mucous membranes Head and scalp: normocephalic Eye Common normals: PERRL Pupil: PERRL Neck & C-Spine Common normals: full ROM General: normal visual inspection Cervical spine: pain with cervical ROM, paracervical muscle tenderness and trapezius muscle tenderness Other: pain with flexion extension and rotation axial neck pain without radiculopathy Chest Common normals: inspection of chest normal Respiratory Common normals: normal respiratory effort, no retractions and no use of accessory muscles Back & Pelvis Lumbar spine/lower back: normal to inspection, ROM limited, pain with ROM, paraspinal muscle tenderness, paraspinal muscle spasm and straight leg raise negative bilaterally Other: bilateral facet loading positive tenderness over bilateral L4-5 L5-S1 facets no radiculopathy predominately axial back pain notable paraspinal trigger points bilaterally Extremity Common normals: normal to inspection and full ROM Neuro Common normals: oriented x3, CN's II-XII intact bilaterally, moves all extremities, no focal motor deficits, no sensory deficits noted, deep tendon reflexes 2+ bilaterally and gait normal Sensorium/orientation: alert Motor exam: strength 5/5 throughout and no movement abnormalities noted Psych Common normals: mental status grossly normal, thought process normal, cooperative, affect normal, speech normal and activity/motor behavior normal Speech: normal speech Thought process: normal thought process Results Additional Findings Additional findings: If on a controlled substance or opioids, I have checked an [place] report on this patient and there are no aberrancies noted in the prescribing history.??If on a controlled substance or opioid a drug screen was completed and reviewed within the last year, and if there has not been a drug screen completed we ordered one today to monitor higher risk, state monitored pain medication use. As part of providing excellent, safe, comprehensive care, the following was completed at our patient's visit: 1. A medication reconciliation and review to ensure accurate knowledge of current/active medications, including asking our patients to inform us about any [id number] medications or herbal remedies/nutritional supplements/alternative remedies. 2. A review to specifically ensure our patients have had annual screening for screening for depression, screening for tobacco use, and screening for unhealthy alcohol use. For concerning screenings had a discussion with the patient, provided patient education, and recommended follow-up with primary care provider when appropriate. If patient noted with a risk of falling, they received education on strength, gait, and balance training to prevent future risk of f alling. Assessment and Plan Assessment and Plan (1) Lumbar spondylosis: Assessment and Plan: The patient has had over 3 months of moderate to severe low back pain with functional impairment and inadequate response to conservative care including NSAIDS (unless there are contraindication such as concurrent blood thinners), multiple oral or topical pain medications, and home exercise program/physical therapy.? Patient has completed >6 weeks of guided home exercise program and/or formal physical therapy program without relief of their symptoms.? I have reviewed the imaging of the lumbar spine and no red flags were identified.? The imaging reveals radiographic findings consistent with lumbar spondylosis We discussed the risks and benefits of the procedure with the patient, and we are NOT planning on using sedation as outlined in the guidelines from Medicare unless there is a documented reason that sedation would be strongly recommended.?? The procedure will be completed with fluoroscopic guidance.? (2) Cervical spondylosis: (3) Chronic pain syndrome: (4) Myofascial pain syndrome: Assessment and Plan: TPI performed to bilateral paralumbar muscles. The procedure risks, hazards and alternatives were discussed with the patient and a proper consent was obtained. The area over the myofascial spasm was prepped with alcohol utilizing sterile technique. After isolating it between two palpating fingertips a 25-gauge 1.5 needle was placed in the center of the myofascial spasms and a negative aspiration was performed. Then 1 cc of lidocaine/bupivacaine/kenalog was injected into each trigger point x6, 3 on each side. The patient tolerated the procedure well without any apparent difficulties or complications. They were feeling relief by the time the block had set. Plan percocet 5-325mg TID PRN moderate to severe pain 1 week UDS today medrol dose pack stop flexeril, start methocarbamol 1000mg TID PRN myofascial pain TPI to bilateral paralumbar spine as noted above looking to buy TENS otc as insurance would not cover avoid NSAIDs worsens GERD f/u 1 week
== END 2024-03-12 09:52 | disposition home or self-care (01) ==
PROVIDERS: PCP Internal Medicine; Visit Provider Nurse Practitioner
DX: M47.816 Spondylosis without myelopathy or radiculopathy, lumbar region (principal); M47.812 Spondylosis without myelopathy or radiculopathy, cervical region; G89.4 Chronic pain syndrome; M79.18 Myalgia, other site
CPT/HCPCS: 20552; J0665; J3301

== ENCOUNTER 2024-03-20 11:25 | Outpatient (OUT) | payer MEDICARE, MEDICAID, SELFPAY ==
--- NOTE | 2024-03-20 11:33 | PM.CN ---
Consult Note: HPI Data of Consult Patient: known to practice within the last 3 years Requesting Physician: Michelle Randhawa NP Primary Care Provider: CAITLYN SPARROW Consult Narrative Reason for consult: f/u Narrative: Marita Messina a pleasant 38 year old female presents for evaluation of chronic neck and back pain. Patient has tried and failed OTC medications, home based exercise program and cervical traction. Since that time her back pain has been the most aggravating factor, especially with ADLs and housework. recent lumbar imaging consistent with lumbar spondylosis and minimal degenerative disc changes at L5-S1. Underwent bilateral L4-5 L5-S1 facet RFA on 03/03/24 with significant increase in pain 4 hours after the procedure, patient reporting 9/10 pain constant in low back and bilateral hips. She went to the ER in [place] where patient reports she had no imaging but morphine shot and percocet and was sent home with percocet 5-325mg QID PRN moderate to severe pain with mild benefit. Patient has no benefit at this time to mobic and flexeril, previously failed diclofenac tizanidine and baclofen. Patient denies fevers/chills, numbness tingling weakness and loss of bowel/bladder. Today pain 8/10 pressure. No relief with medrol dose pack, mild relief with methocarbamol and percocet. No group home relief from TPIs. cc:: CC: Michelle Randhawa NP Review of Systems ROS Status of ROS 10 or more systems reviewed and unremarkable except as noted in history and below Musculoskeletal Reports: back pain PFSH PFSH Medical History Anxiety ?F41.9 - Anxiety disorder, unspecified (ICD-10) Hiatal hernia ?K44.9 - Diaphragmatic hernia without obstruction or gangrene (ICD-10) Acid reflux ?K21.9 - Gastro-esophageal reflux disease without esophagitis (ICD-10) Pulmonary embolism ?I26.99 - Other pulmonary embolism without acute cor pulmonale (ICD-10) Asthma ?J45.909 - Unspecified asthma, uncomplicated (ICD-10) Surgical History History of surgical removal of Bartholin’s gland cyst ?Z98.890 - Other specified postprocedural states (ICD-10) ?Z87.42 - Personal history of other diseases of the female genital tract (ICD-10) History of eye surgery ?Z98.890 - Other specified postprocedural states (ICD-10) [place] teeth extracted ?K08.409 - Partial loss of teeth, unspecified cause, unspecified class (ICD-10) History of hernia repair ?Z98.890 - Other specified postprocedural states (ICD-10) ?Z87.19 - Personal history of other diseases of the digestive system (ICD-10) History of hysterectomy ?Z90.710 - Acquired absence of both cervix and uterus (ICD-10) Meds Home Medications and Allergies Home Medications ?Medication ?Instructions ?Recorded ?Confirmed ?Type albuterol sulfate 90 mcg/actuation 2 puff inhalation Q6H PRN 06/22/23 03/03/24 History aerosol inhaler shortness of breath or wheezing buspirone 15 mg tablet 15 mg PO BID 06/22/23 03/03/24 History cariprazine 3 mg capsule (Vraylar) 6 mg PO DAILY 06/22/23 03/03/24 History erenumab-aooe 70 mg/mL 70 mg subcut 06/22/23 History subcutaneous auto-injector (Aimovig Autoinjector) fluoxetine 40 mg capsule (Prozac) 40 mg PO DAILY 06/22/23 03/03/24 History omeprazole 20 mg capsule,delayed 40 mg PO BID 06/22/23 03/03/24 History release propranolol 20 mg tablet 20 mg PO Q12H 06/22/23 03/03/24 History rizatriptan 5 mg tablet 5 mg PO Q2H PRN migraine headache 06/22/23 03/03/24 History phentermine 37.5 mg tablet 18.75 mg PO DAILY 01/28/24 03/03/24 History (Adipex-P) cyclobenzaprine 10 mg tablet 10 mg PO BID 02/07/24 03/03/24 History baclofen 10 mg tablet mg 02/18/24 History oxycodone-acetaminophen 5 mg-325 1 tab PO TID PRN pain #21 tabs 03/12/24 Rx mg tablet (Percocet) Allergies Allergy/AdvReac Type Severity Reaction Status Date / Time hydrocodone [From Vicodin] Allergy Hives Verified 03/03/24 09:21 Exam Narrative Exam Narrative: diffuse myofascial pain and tenderness Constitutional Documenting provider has reviewed patient's vital signs: yes Common normals: no apparent distress, oriented x3, healthy appearing, alert and well nourished General appearance: cooperative HENMT Common normals: normocephalic, hearing grossly normal bilaterally and moist oral mucous membranes Head and scalp: normocephalic Eye Common normals: PERRL Pupil: PERRL Neck & C-Spine Common normals: full ROM General: normal visual inspection Cervical spine: pain with cervical ROM, paracervical muscle tenderness and trapezius muscle tenderness Other: pain with flexion extension and rotation axial neck pain without radiculopathy Chest Common normals: inspection of chest normal Respiratory Common normals: normal respiratory effort, no retractions and no use of accessory muscles Back & Pelvis Lumbar spine/lower back: normal to inspection, ROM limited, pain with ROM, paraspinal muscle tenderness, paraspinal muscle spasm and straight leg raise positive left Other: bilateral facet loading positive tenderness over bilateral L4-5 L5-S1 facets notable paraspinal trigger points bilaterally Extremity Common normals: normal to inspection and full ROM Neuro Common normals: oriented x3, CN's II-XII intact bilaterally, moves all extremities, no focal motor deficits, no sensory deficits noted and deep tendon reflexes 2+ bilaterally Sensorium/orientation: alert Motor exam: strength 5/5 throughout and no movement abnormalities noted Psych Common normals: mental status grossly normal, thought process normal, cooperative, affect normal, speech normal and activity/motor behavior normal Speech: normal speech Thought process: normal thought process Results Additional Findings Additional findings: If on a controlled substance or opioids, I have checked an [place] report on this patient and there are no aberrancies noted in the prescribing history.??If on a controlled substance or opioid a drug screen was completed and reviewed within the last year, and if there has not been a drug screen completed we ordered one today to monitor higher risk, state monitored pain medication use. As part of providing excellent, safe, comprehensive care, the following was completed at our patient's visit: 1. A medication reconciliation and review to ensure accurate knowledge of current/active medications, including asking our patients to inform us about any [id number] medications or herbal remedies/nutritional supplements/alternative remedies. 2. A review to specifically ensure our patients have had annual screening for screening for depression, screening for tobacco use, and screening for unhealthy alcohol use. For concerning screenings had a discussion with the patient, provided patient education, and recommended follow-up with primary care provider when appropriate. If patient noted with a risk of falling, they received education on strength, gait, and balance training to prevent future risk of falling. Assessment and Plan Assessment and Plan (1) Lumbar radiculopathy: (2) Lumbar spondylosis: (3) Myofascial pain syndrome: (4) Chronic low back pain: Plan update lumbar MRI without contrast to evaluate new onset lumbar radiculopathy, chronic low back pain unresponsive to PT/HEP greater than 6 weeks, medications such as tylenol/NSAIDs, heat/ice. Essential to evaluate for further injection therapy vs NS referral start OTC lidocaine patches 12 hrs on/12 hrs off start gabapentin 300mg HS continue percocet 5-325mg BID PRN moderate to severe pain, denies side effects. reporting mild relief for 3-4 hours after taking. Has been able to complete housework and care for self continue methocarbamol 500-1000mg TID PRN pain/spasms continue ice f/u after MRI
== END 2024-03-20 11:26 | disposition home or self-care (01) ==
LOC: PM 11:25
PROVIDERS: PCP Internal Medicine; Visit Provider Nurse Practitioner
DX: M54.50 Low back pain, unspecified (principal); G89.29 Other chronic pain; M47.26 Other spondylosis with radiculopathy, lumbar region; M79.18 Myalgia, other site
CPT/HCPCS: G0463

== ENCOUNTER 2024-04-02 11:18 | Outpatient (OUT) | payer MEDICARE, MEDICAID, SELFPAY ==
--- NOTE | 2024-04-02 12:11 | PM.CN ---
Consult Note: HPI Data of Consult Patient: known to practice within the last 3 years Requesting Physician: Michelle Randhawa NP Primary Care Provider: CAITLYN SPARROW Consult Narrative Reason for consult: f/u Narrative: Marita Messina a pleasant 38 year old female presents for evaluation of chronic neck and back pain. Patient has tried and failed OTC medications, home based exercise program and cervical traction. Since that time her back pain has been the most aggravating factor, especially with ADLs and housework. recent lumbar imaging consistent with lumbar spondylosis and minimal degenerative disc changes at L5-S1. Underwent bilateral L4-5 L5-S1 facet RFA on 03/03/24 with significant increase in pain 4 hours after the procedure, patient reporting 9/10 pain constant in low back and bilateral hips. She went to the ER in [place] where patient reports she had no imaging but morphine shot and percocet and was sent home with percocet 5-325mg QID PRN moderate to severe pain with mild benefit. Patient has no benefit at this time to mobic, methocarbamol, flexeril, previously failed diclofenac tizanidine and baclofen. Patient denies fevers/chills, numbness tingling and loss of bowel/bladder. Today pain 8/10 pressure. No relief with medrol dose pack, mild relief with methocarbamol and percocet. 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 Recent MRI as noted below. cc:: CC: Michelle Randhawa NP Review of Systems ROS Status of ROS 10 or more systems reviewed and unremarkable except as noted in history and below Musculoskeletal Reports: back pain PFSH PFSH Medical History Anxiety ?F41.9 - Anxiety disorder, unspecified (ICD-10) Hiatal hernia ?K44.9 - Diaphragmatic hernia without obstruction or gangrene (ICD-10) Acid reflux ?K21.9 - Gastro-esophageal reflux disease without esophagitis (ICD-10) Pulmonary embolism ?I26.99 - Other pulmonary embolism without acute cor pulmonale (ICD-10) Asthma ?J45.909 - Unspecified asthma, uncomplicated (ICD-10) Surgical History History of surgical removal of Bartholin’s gland cyst ?Z98.890 - Other specified postprocedural states (ICD-10) ?Z87.42 - Personal history of other diseases of the female genital tract (ICD-10) History of eye surgery ?Z98.890 - Other specified postprocedural states (ICD-10) [place] teeth extracted ?K08.409 - Partial loss of teeth, unspecified cause, unspecified class (ICD-10) History of hernia repair ?Z98.890 - Other specified postprocedural states (ICD-10) ?Z87.19 - Personal history of other diseases of the digestive system (ICD-10) History of hysterectomy ?Z90.710 - Acquired absence of both cervix and uterus (ICD-10) Meds Home Medications and Allergies Home Medications ?Medication ?Instructions ?Recorded ?Confirmed ?Type albuterol sulfate 90 mcg/actuation 2 puff inhalation Q6H PRN 06/22/23 03/03/24 History aerosol inhaler shortness of breath or wheezing buspirone 15 mg tablet 15 mg PO BID 06/22/23 03/03/24 History cariprazine 3 mg capsule (Vraylar) 6 mg PO DAILY 06/22/23 03/03/24 History erenumab-aooe 70 mg/mL 70 mg subcut 06/22/23 History subcutaneous auto-injector (Aimovig Autoinjector) fluoxetine 40 mg capsule (Prozac) 40 mg PO DAILY 06/22/23 03/03/24 History omeprazole 20 mg capsule,delayed 40 mg PO BID 06/22/23 03/03/24 History release propranolol 20 mg tablet 20 mg PO Q12H 06/22/23 03/03/24 History rizatriptan 5 mg tablet 5 mg PO Q2H PRN migraine headache 06/22/23 03/03/24 History phentermine 37.5 mg tablet 18.75 mg PO DAILY 01/28/24 03/03/24 History (Adipex-P) cyclobenzaprine 10 mg tablet 10 mg PO BID 02/07/24 03/03/24 History baclofen 10 mg tablet mg 02/18/24 History oxycodone-acetaminophen 5 mg-325 1 tab PO TID PRN pain #21 tabs 03/12/24 Rx mg tablet (Percocet) gabapentin 300 mg capsule 300 mg PO .QHS #30 caps 03/20/24 Rx oxycodone-acetaminophen 5 mg-325 1 tab PO BID PRN pain #60 tabs 03/20/24 Rx mg tablet (Percocet) Allergies Allergy/AdvReac Type Severity Reaction Status Date / Time hydrocodone [From Vicodin] Allergy Hives Verified 03/03/24 09:21 Exam Narrative Exam Narrative: diffuse myofascial pain and tenderness Constitutional Documenting provider has reviewed patient's vital signs: yes Common normals: no apparent distress, oriented x3, healthy appearing, alert and well nourished General appearance: cooperative HENMT Common normals: normocephalic, hearing grossly normal bilaterally and moist oral mucous membranes Head and scalp: normocephalic Eye Common normals: PERRL Pupil: PERRL Neck & C-Spine Common normals: full ROM General: normal visual inspection Cervical spine: pain with cervical ROM, paracervical muscle tenderness and trapezius muscle tenderness Other: pain with flexion extension and rotation axial neck pain without radiculopathy Chest Common normals: inspection of chest normal Respiratory Common normals: normal respiratory effort, no retractions and no use of accessory muscles Back & Pelvis Lumbar spine/lower back: normal to inspection, ROM limited, pain with ROM, paraspinal muscle tenderness, paraspinal muscle spasm and straight leg raise negative bilaterally Other: bilateral facet loading positive tenderness over bilateral L4-5 L5-S1 facets notable myofascial pain/stiffness Extremity Common normals: normal to inspection and full ROM Neuro Common normals: oriented x3, CN's II-XII intact bilaterally, moves all extremities, no focal motor deficits, no sensory deficits noted and deep tendon reflexes 2+ bilaterally Sensorium/orientation: alert Motor exam: strength 5/5 throughout and no movement abnormalities noted Psych Common normals: mental status grossly normal, thought process normal, cooperative, affect normal, speech normal and activity/motor behavior normal Speech: normal speech Thought process: normal thought process Results Additional Findings Additional findings: If on a controlled substance or opioids, I have checked an [place] report on this patient and there are no aberrancies noted in the prescribing history.??If on a controlled substance or opioid a drug screen was completed and reviewed within the last year, and if there has not been a drug screen completed we ordered one today to monitor higher risk, state monitored pain medication use. As part of providing excellent, safe, comprehensive care, the following was completed at our patient's visit: 1. A medication reconciliation and review to ensure accurate knowledge of current/active medications, including asking our patients to inform us about any [id number] medications or herbal remedies/nutritional supplements/alternative remedies. 2. A review to specifically ensure our patients have had annual screening for screening for depression, screening for tobacco use, and screening for unhealthy alcohol use. For concerning screenings had a discussion with the patient, provided patient education, and recommended follow-up with primary care provider when appropriate. If patient noted with a risk of falling, they received education on strength, gait, and balance training to prevent future risk of falling. Assessment and Plan Assessment and Plan (1) Lumbar radiculopathy: (2) Lumbar spondylosis: (3) Myofascial pain syndrome: (4) Chronic low back pain: Plan defer lumbar LIZETH at this time as myofascial pain and axial pain is more persistent than radicular pain, likely post RFA neuritis, retrial medrol dose pack increase gabapentin 300mg BID stop methocarbamol, restart flexeril 15mg BID PRN pain/spasms stop percocet continue ice PT for dry needling, massage, TENS f/u 6 weeks, sooner if needed
== END 2024-04-02 11:19 | disposition home or self-care (01) ==
LOC: PM 11:19
PROVIDERS: PCP Internal Medicine; Visit Provider Nurse Practitioner
DX: M54.16 Radiculopathy, lumbar region (principal); M47.816 Spondylosis without myelopathy or radiculopathy, lumbar region; M79.18 Myalgia, other site; M54.50 Low back pain, unspecified
CPT/HCPCS: G0463

== ENCOUNTER 2024-05-08 11:21 | Outpatient (OUT) | payer MEDICARE, MEDICAID, SELFPAY ==
--- OUTSIDE RECORDS SUMMARY | 2024-05-08 11:26 | XMS_ITS | CCD ---
Author Organization [facility] Care Team Providers Care Vulcan Crewmember Name Role Phone BRADLEY SIMMONS Referring Unavailable [...] TOYIN, DR MUNIRA Avalos Admitting Unavailable Kyara, [facility] Provider Malina CLEMONS, Sana Doyle Attending Unavailable Kyara CLEMONS, [facility] Ness vailable Kyara CLEMONS, [facility] Ness wilfredoble Malina CLEMONS, Sana Doyle Attending Unavailable Kyara CLEMONS, [facility] Ness janice Radford MD, Sana Doyle Attending Unavailable Kyara CLEMONS, [facility] Ness janice Radford MD, Sana Doyle Attending Unavailable KYARA, CAITLYN Griffiths Referring Unavailabl e KYARA, CAITLYN Griffiths Primary Care Unavailabl e LEONIDAS SALCIDO Referring Unavailable KYARA, CAITLYN Griffiths Primary Care Unavailabl e LEONIDAS SALCIDO Referring Unavailable KYARA, CAITLYN Griffiths Primary Care Unavailabl e LEONIDAS SALCIDO Referring Unavailable KYARA, CAITLYN Griffiths Primary Care Unavailabl e KYARA, CAITLYN Griffiths Referring Unavailabl e KAYRA, CAITLYN Griffiths Primary Care Unavailabl e KYARA, CAITLYN Griffiths Referring Unavailabl e KYARA, CAITLYN Griffiths Primary Care Unavailabl e KYARA, CAITLYN Griffiths Referring Unavailabl e KYARA, CAITLYN Griffiths Primary Care Unavailabl e KYARA, CAITLYN Griffiths Primary Care Unavailabl e DAVEY VALENZUELA Attending Unavailable LEONIDAS SALCIDO Referring Unavailable KYARA, CAITLYN Griffiths Primary Care Unavailabl e KYARA, CAITLYN Griffiths Primary Care Unavailabl e LUIZA ORDOÑEZ Attending Unavailable LUIZA ORDOÑEZ Attending Unavailable LUIZA ORDOÑEZ Referring Unavailable KYARA, CAITLYN Griffiths Primary Care Unavailabl e KYARA, CAITLYN Griffiths Referring Unavailabl e KYARA, CAITLYN M Primary Care ELISEO Wilder Attending Unavailable CAITLYN SPARROW Referring CAITLYN Woods Primary Care Ilan alejandre Allergies Allergy Classification Reported Allergen(s) Allergy Type Date of Onset Reaction(s) Facility (2 sources) Acetaminophen / HYDROcodone; Translations: [HYDROCODONE-ACETA MINOPHEN] Drug Allergy 10-09-2019 [place], [place] (9 sources) Acetaminophen / HYDROcodone; Translations: [Vicodin] Drug Allergy 09-10-2014 hives [facility] Repository Medications Current Medications Medication Drug [...] Start: 11-20-2018 take 1 capsule by mo [facility] once daily FLUoxetine HCl (PROZAC) 40 mg [...] f41.1 Oct, Active take 1 tablet by [facility] every twenty-four hours Ativan 0.5 MG [...] 11/25/2018 Active take 1 tablet by anu every twenty-four hours Baclofen 10 MG 1 tablet Orally Once a day Active take 1 tablet by anu every twenty-four hours Baclofen 5 MG 1 [...] on above: take 1 capsule by mo [facility] once daily as directed perphenazine [...] tablet (12 sources) Anti-epileptic Agent Start: 10-25-19 primidone (MYSOLINE) 250 mg tablet Indications: Excessive [...] blood cell count, unspecified] Onset: 02-29-2024 Chronic Disorders of lipid metabolism (1 source) Pure hyperglyceridemia; Translations: [Pure hyperglyceridemia] Onset: 05-05-2024 Chronic Essential hypertension (1 source) Essential (primary) hypertension; Translations: [Essential (primary) hypertension] Onset: 02-29-2024 Chronic Genitourinary symptoms and ill-defined conditions (1 source) Hematuria, unspecified; Translations: [Hematuria, unspecified] Onset: 03-23-2024 Episodic Mood disorders (6 sources) Bipolar disorder; Translations: [Bipolar disorder, unspecified] Chronic Nonspecific chest pain (2 sources) Chest pain, unspecified; Translations: [Chest pain] Onset: 03-23-2024 Episodic Nutritional deficiencies (1 source) Vitamin D deficiency, unspecified; Translations: [Vitamin D deficiency, unspecified] Onset: 11-30-2023 Chronic Other connective tissue disease (5 sources) Other muscle spasm; Translations: [OTHER MUSCLE SPASM] Onset: 09-22-2021 Episodic Other liver diseases (1 source) Abnormal levels of other serum enzymes; Translations: [Abnormal levels of other serum enzymes] Onset: 03-23-2024 Episodic Other nervous system disorders (3 sources) Narcolepsy without cataplexy ; 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] Chronic Other nervous system disorders (1 source) Other chronic pain; Translations: [Other chronic pain] Onset: 03-08-2024 Chronic Other nervous system disorders (1 source) [...] 02-29-2024 Episodic Residual codes; unclassified (1 source) Tobacco use; Translations: [Tobacco use] Onset: 05-05-2024 Episodic Residual codes; unclassified (1 source) Flushing; Translations: [Flushing] Onset: 02-29-2024 Episodic Spondylosis; intervertebral disc disorders; other back problems (8 sources) Other spondylosis with radiculopathy, cervical region; Translations: [Spondylosis without myelopathy or radiculopathy, cervical region] Onset: 09-22-2021 Chronic Spondylosis; intervertebral disc disorders; other back problems (12 sources) Cervical disc disorder with radiculopathy, unspecified cervical region; Translations: [Cervicalgia] Onset: 10-13-2021 Episodic Unclassified (1 source) CONTACT W/AND (SUSP) EXPOS COVID-19; Translations: [CONTACT W/AND (SUSP) EXPOS COVID-19] Onset: 10-11-2021 Unclassified (1 source) New Patient Onset: 05-05-2024 Unclassified (1 source) Low back pain, unspecified; Translations: [Low back pain, unspecified] Onset: 03-08-2024 Urinary tract infections (1 source) Urinary tract infection, site not specified; Translations: [Urinary tract infection, site not specified] Onset: 03-23-2024 Episodic Past or Other Problems Problem Classification Problem Date Documented Da te Episodic/Chronic Malaise and fatigue (1 source) Other fatigue; Translations: [Other fatigue] Onset: 11-30-2023 Episodic Other nutritional; endocrine; and metabolic disorders (1 source) Abnormal weight gain; Translations: [Abnormal weight gain] Onset: 11-30-2023 Episodic Results Test Name Value Interpretation Reference Range Facil ity MR LUMBAR SPINE WO CONTon MR LUMBAR SPINE WO CONT MR LUMBAR SPINE WO CONT MR LUMBAR SPINE WO CONT 03/24/2024 1:24 PM INDICATION: Lumbar radiculopathy; Lumbar spondylosis COMPARISON: None TECHNIQUE: Multiplanar multisequence MR images of the lumbar spine without contrast were obtained. FINDINGS: NUMBERING/ALIGNMENT: There are 5 lumbar type vertebrae. Vertebral body alignment is appropriate. Facet alignment is appropriate. Vertebral body heights are well-maintained. BONE MARROW: Mildly heterogeneous. SPINAL CORD: Visualized portions of the spinal cord are unremarkable. Conus medullaris tip is at L1-2. Cauda equina nerve roots are normal in morphology and configuration. SACRUM: Visualized portions of the sacrum are unremarkable. SOFT TISSUES: Small synovial cyst adjacent to some of the facets posteriorly. DEGENERATIVE FINDINGS: Mild degenerative disease, most prominent at T11-T12 and L4-5. L1-L2: No significant neural foraminal or thecal sac narrowing. L2-L3: No significant neural foraminal or thecal sac narrowing. Mild facet degeneration. L3-L4: Minimal disc bulge and mild to moderate facet degeneration. There is minimal effacement of thecal sac anteriorly. L4-L5: Mild disc bulge and moderate facet degeneration. There is mild effacement of thecal sac anteriorly. There is mild bilateral neural foraminal narrowing. L5-S1: Mild disc bulge and mild to moderate facet degeneration. Prominent epidural fat and slightly narrows the thecal sac. There is mild recommended left neural foraminal narrowing. IMPRESSION: Mild degenerative changes of the lumbar spine as described, most prominent within the facets. ? Finalized by Davey Bruce DO on 03/26/2024 1:45 PM Normal [facility] CBC AND AUTO DIFFon 03-23-20 24 ABSOLUTE BASOPHIL 0.0 X10E9/L Normal 0.0-0.2 [facility] Comment on above: Performed By: #### C EVIN, 51585-2, THYR, CBCA, 01962-8 #### [facility] ([id number]) [address], [address] [place] [address] ABSOLUTE NEUTROPHIL 4.7 X10E9/L Normal 1.5-6.6 [facility] Comment on above: Performed By: #### C MP, 72441-0, THYR, CBCA, 84344-7 #### [facility] ([id number]) [address], [address] [place] [address] Basophils/100 WBC (Bld) 0.3 % Normal [facility] Comment on above: Performed By: #### C EVIN, 24503-8, THYR, CBCA, 50516-0 #### [facility] ([id number]) [address], [address] [place] [address] Eosinophils (Bld) [#/Vol] 0.0 10*3/uL Normal 0.0-0.4 [facility] Comment on above: Performed By: #### C EVIN, 87981-2, THYR, CBCA, 65768-2 #### [facility] ([id number]) [address], [address] [place] [address] Eosinophils/100 WBC (Bld) 0.4 % Normal [facility] Comment on above: Performed By: #### C EVIN, 21123-8, THYR, CBCA, 10399-8 #### [facility] ([id number]) [address], [address] [place] [address] Erythrocyte distribution width (RBC) [Ratio] 13.5 % Normal 11.5-15.0 [facility] Comment on above: Performed By: #### C EVIN, 46852-0, THYR, CBCA, 24517-7 #### [facility] ([id number]) [address], [facility] [address] [place] [address] Hematocrit (Bld) [Volume fraction] 44.6 % Normal 35-47 [facility] Comment on above: Performed By: #### C EVIN, 91299-7, THYR, CBCA, 84480-2 #### [facility] ([id number]) [address] [address] [place] [address] Hemoglobin (Bld) [Mass/Vol] 15.6 g/dL High 11.7-15.5 [facility] Comment on above: Performed By: #### C EVIN, 28685-2, THYR, CBCA, 20767-1 #### [facility] ([id number]) [address], [address] [place] [address] Lymphocytes (Bld) [#/Vol] 0.5 10*3/uL Low 1.0-3.5 [facility] Comment on above: Performed By: #### C EVIN, 41662-2, THYR, CBCA, 49656-9 #### [facility] ([id number]) [address], [facility] [address] [place] [address] Lymphocytes/100 WBC (Bld) 8.7 % Normal [facility] Comment on above: Performed By: #### C EVIN, 31070-3, THYR, CBCA, 92976-0 #### [facility] ([id number]) [address] [address] [place] [address] MCH (RBC) [Entitic mass] 32.5 pg Normal 27-34 [facility] Comment on above: Performed By: #### Mariam CLEARY, 75281-6, THYR, CBCA, 66703-9 #### [facility] ([id number]) [address] [address] [place] [address] MCHC (RBC) [Mass/Vol] 34.9 g/dL Normal 32-36 [facility] Comment on above: Performed By: #### C EVIN, 58638-7, THYR, CBCA, 69674-3 #### [facility] ([id number]) [address] [address] [place] [address] MCV (RBC) [Entitic vol] 93 fL Normal 80-100 [facility] Comment on above: Performed By: #### C EVIN, 93002-7, THYR, CBCA, 83578-8 #### [facility] ([id number]) [address] [address] [place] [address] Monocytes (Bld) [#/Vol] 0.0 10*3/uL Normal 0-0.9 [facility] Comment on above: Performed By: #### C MP, 63330-3, THYR, CBCA, 34704-7 #### [facility] ([id number]) [address], [address] [place] [address] Monocytes/100 WBC (Bld) 0.6 % Normal [facility] Comment on above: Performed By: #### C MP, 72335-5, THYR, CBCA, 06544-3 #### [facility] ([id number]) [address], [address] [place] [address] Neutrophils/100 WBC (Bld) 90.0 % Normal [facility] Comment on above: Performed By: #### C MP, 12413-3, THYR, CBCA, 80386-9 #### [facility] ([id number]) [address] [place] [address] Platelet mean volume (Bld) [Entitic vol] 7.2 fL Normal 7-12 [facility] Comment on above: Performed By: #### C MP, 16363-5, THYR, CBCA, 68788-4 #### [facility] ([id number]) [address], [address] [place] [address] Platelets (Bld) [#/Vol] 286 10*3/uL Normal 150-450 [facility] Comment on above: Performed By: #### C MP, 06293-2, THYR, CBCA, 60708-1 #### [facility] ([id number]) [address], [address] [place] [address] RBC COUNT 4.80 X10E12/L Normal 3.80-5.20 [facility] Comment on above: Performed By: #### C MP, 78739-7, THYR, CBCA, 59702-6 #### [facility] ([id number]) [address], [address] [place] [address] WBC (Bld) [#/Vol] 5.3 10*3/uL Normal 4.0-11.0 [facility] Comment on above: Performed By: #### C MP, 28237-5, THYR, CBCA, 86054-4 #### [facility] ([id number]) [address], [address] [place] [address] COMPREHENSIVE METABOLIC PANE Mika 03-23-2024 Albumin [Mass/Vol] 4.2 g/dL Normal 3.2-5.3 [facility] Comment on above: Performed By: #### C EVIN, 62012-7, THYR, CBCA, 33043-5 #### [facility] ([id number]) [address], [address] [place] [address] ALP [Catalytic activity/Vol] 115 U/L Normal 39-130 [facility] Comment on above: Performed By: #### C EVIN, 21157-3, THYR, CBCA, 12893-2 #### [facility] ([id number]) [address], [address] [place] [address] ALT [Catalytic activity/Vol] 81 U/L High 0-31 [facility] Comment on above: Performed By: #### C EVIN, 70207-6, THYR, CBCA, 22491-4 #### [facility] ([id number]) [address], [address] [place] [address] Anion gap [Moles/Vol] 14 mmol/L Normal 5-15 [facility] Comment on above: Performed By: #### C EVIN, 20682-9, THYR, CBCA, 09028-9 #### [facility] ([id number]) [address], [address] [place] [address] AST [Catalytic activity/Vol] 48 U/L High 0-41 [facility] Comment on above: Performed By: #### C EVIN, 66296-0, THYR, CBCA, 12699-6 #### [facility] ([id number]) [address] [address] [place] [address] Bilirubin [Mass/Vol] 1.3 mg/dL High 0.3-1.2 [facility] Comment on above: Performed By: #### C MP, 26307-0, THYR, CBCA, 21212-0 #### [facility] ([id number]) [address] [address] [place] [address] Calcium [Mass/Vol] 9.3 mg/dL Normal 8.5-10.5 [facility] Comment on above: Performed By: #### C EVIN, 31516-0, THYR, CBCA, 23715-9 #### [facility] ([id number]) [address] [address] [place] [address] Chloride [Moles/Vol] 97 mmol/L Low 98-109 [facility] Comment on above: Performed By: #### C EVIN, 94197-3, THYR, CBCA, 22959-3 #### [facility] ([id number]) [address] [address] [place] [address] CO2 [Moles/Vol] 22 mmol/L Normal 22-32 [facility] Comment on above: Performed By: #### C EVIN, 15054-6, THYR, CBCA, 07890-8 #### [facility] ([id number]) [address] [address] [place] [address] Creatinine [Mass/Vol] 0.91 mg/dL Normal 0.40-1.00 [facility] Comment on above: Result Comment: METH OD TRACEABLE TO IDMS STANDARD Performed By: #### C MP, 18123-3, THYR, CBCA, 73434-3 #### [facility] ([id number]) [address] [address] [place] [address] GFR/1.73 sq M.predicted among non-blacks MDRD (S/P/Bld) [Vol rate/Area] 83 mL/min/{1.73_m2} Normal >59 [facility] Comment on above: Result Comment: Reported eGFR is based on the CKD-EPI 2020 equation that does not use a race coefficient. Performed By: #### C EVIN, 63308-9, THYR, CBCA, 39482-7 #### [facility] ([id number]) [address], [address] [place] [address] Glucose [Mass/Vol] 110 mg/dL High 65-99 [facility] Comment on above: Performed By: #### Mariam CLEARY, 29509-3, THYR, CBCA, 41984-4 #### [facility] ([id number]) [address], [address] [place] [address] Potassium [Moles/Vol] 3.8 mmol/L Normal 3.5-5.0 [facility] Comment on above: Performed By: #### Mariam CLEARY, 04144-2, THYR, CBCA, 86638-0 #### [facility] ([id number]) [address] [place] [address] Protein [Mass/Vol] 8.0 g/dL Normal 6.0-8.0 [facility] Comment on above: Performed By: #### Mariam CLEARY, 82376-0, THYR, CBCA, 99802-3 #### [facility] ([id number]) [address] [address] [place] [address] Sodium [Moles/Vol] 133 mmol/L Low 134-146 [facility] Comment on above: Performed By: #### Mariam CLEARY, 58675-2, THYR, CBCA, 58177-9 #### [facility] ([id number]) [address], [address] [place] [address] Urea nitrogen [Mass/Vol] 13 mg/dL Normal 5-23 [facility] Comment on above: Performed By: #### C MP, 86968-4, THYR, CBCA, 46106-5 #### [facility] ([id number]) [address] [place] [address] CT CTA CHESTon 03-23-[address] CT CTA CHEST HISTORY: Pulmonary embolism suspected, positive d-dimer COMPARISON: None TECHNIQUE: Contiguous axial images are obtained of the Chest with 100 mL of Omnipaque 350 IV contrast. Coronal and sagittal reconstructions were performed and reviewed. Sagittal and coronal reformatted images with 3-D Maximum intensity projection reconstructions constructed under concurrent physician supervision on a separate workstation for the purpose of evaluation of the pulmonary arteries. Automatic exposure control was utilized. All CT scans at this facility use dose modulation, iterative reconstruction, and/or weight based dosing when appropriate to reduce radiation dose to as low as reasonably achievable. FINDINGS: Pulmonary Arteries:No filling defects of the main pulmonary arteries or segmental branches. Poor opacification of subsegmental branches without definitive embolism within this limitation. Pulmonary trunk size is at the upper limit of normal with a width of 2.8 cm, right and left pulmonary arteries within normal limits in regards to size. Trachea and lungs: The airways are patent without filling defect. No pneumothorax or pleural effusion. Dependent atelectasis. Heart and Mediastinum:No cardiomegaly or pericardial effusion. The aorta is without aneurysmal dilation. No significant coronary artery calcifications. Lymph nodes: No enlarged mediastinal or hilar lymph nodes. Bones: No acute osseous abnormality. Upper Abdomen: Diffuse hepatic steatosis. IMPRESSION: * No pulmonary embolism. * No acute process of the chest. Approved by Resident Alfonso Packer MD on 03/23/2024 10:42 PM I, Joe Chaparro MD have personally reviewed the image(s) and agree with and/or edited the report Finalized by Joe Chaparro MD on 03/23/2024 10:52 PM Normal [facility] Fibrin D-dimer DDU (PPP) [Ma ss/Vol]on 03-23-2024 D DIMER 336 ng/mL DDU High <255 [facility] Comment on above: Result Comment: Results >=255ng/mL DDU: Results may be indicative of the presence of VTE. The use of the Wells score and further diagnostic tests should be considered. Elevated D-Dimer levels can also be associated with DIC, neoplasm, , trauma and liver disease. Elevated levels of rheumatoid factor may lead to an overestimation of the D-Dimer level. Performed By: #### C EVIN, 87753-8, THYR, CBCA, 02802-3 #### [facility] ([id number]) [address] [address] [place] [address] HCG ( test) Ql (U)o n 03-23-2024 Beta HCG ( test) Ql (U) Negative Normal NEG [facility] Comment on above: Performed By: #### C EVIN, 49120-4, THYR, CBCA, 25049-7 #### [facility] ([id number]) [address] [address] [place] [address] LIPASEon 03-23-2024 Lipase [Catalytic activity/Vol] 30 U/L Normal 17-40 [facility] Comment on above: Performed By: #### C EVIN, 67124-6, THYR, CBCA, 88710-8 #### [facility] ([id number]) [address] [address] THYROID PROFILEon 03-23-2024 Free T4 [Mass/Vol] 0.74 ng/dL Normal 0.61-1.60 [facility] Comment on above: Performed By: #### C EVIN, 85860-0, THYR, CBCA, 38699-3 #### [facility] ([id number]) [address] [address] [place] [address] TSH 1.64 uIU/mL Normal 0.49-4.67 [facility] Comment on above: Performed By: #### C EVIN, 97221-3, THYR, CBCA, 17751-8 #### [facility] ([id number]) [address] [address] [place] [address] Troponin I.cardiac High sens itivity method [Mass/Vol]on 03-23-2024 1 HOUR TROP I, HIGH SENSITIVITY 3 ng/L Normal <16 [facility] Comment on above: Performed By: #### C EVIN, 06871-2, THYR, CBCA, 29884-8 #### [facility] ([id number]) [address], [facility] [address] [place] [address] TROPONIN I, HIGH SENSITIVITY 2 ng/L Normal <16 [facility] Comment on above: Performed By: #### C EVIN, 69717-4, THYR, CBCA, 52762-2 #### [facility] ([id number]) [address] [facility], [address] [place] [address] URINE CULTUREon 03-23-2024 Bacteria identified Cx Nom (U) CULTURE RESULTS >100,000 ORGANISMS/mL ESCHERICHIA COLI [ S = SUSCEPTIBLE R = RESISTANT I = INTERMEDIATE S-DO = Susceptible-dose dependent NS = Non-suscceptible NO = No Interpretation ] Organism: ESCHERICHIA COLI Antibiotic Interpretation KARLEY Status AMPICILLIN R >=32 F AMP/SULBACTAM I 16/8 F CEFAZOLIN S <=4 F CEFTRIAXONE S <=1 F CIPROFLOXACIN S <=0.25 F GENTAMICIN S <=1 F LEVOFLOXACIN S <=0.12 F NITROFURANTOIN S <=16 F PIPERACIL/TAZOBACTAM S <=4 F TOBRAMYCIN S <=1 F TRIMETH/SULFAMETHOXAZO LE S <=1/19 F Susceptible [facility] Comment on above: Performed By: #### C EVIN, 89991-8, THYR, CBCA, 36252-2 #### [facility] ([id number]) [address] [facility], [address] [place] [address] URN MACROSCOPIC NURon 2023 BILIRUBIN LUL Negative Normal NEG [facility] Comment on above: Performed By: #### C EVIN, 12421-3, THYR, CBCA, 02683-8 #### [facility] ([id number]) [address] [place] [address] BLOOD/HGB LUL Small Abnormal NEG [facility] Comment on above: Performed By: #### C EVIN, 74067-5, THYR, CBCA, 33580-2 #### [facility] ([id number]) [address] [place] [address] GLUCOSE LUL Negative Normal NEG [facility] Comment on above: Performed By: #### C EVIN, 49081-2, THYR, CBCA, 07185-4 #### [facility] ([id number]) [address] [place] [address] KETONES LUL Negative Normal NEG [facility] Comment on above: Performed By: #### C EVIN, 73785-3, THYR, CBCA, 01284-9 #### [facility] ([id number]) [address] [place] [address] LEUKOCYTE ESTERASE LUL Small Abnormal NEG [facility] Comment on above: Performed By: #### C EVIN, 06823-7, THYR, CBCA, 51477-5 #### [facility] ([id number]) [address] [place] [address] NITRITE LUL Negative Normal NEG [facility] Comment on above: Performed By: #### C EVIN, 48819-9, THYR, CBCA, 28748-8 #### [facility] ([id number]) [address] [place] [address] PH LUL 5.5 Normal 5.0-8.5 [facility] Comment on above: Performed By: #### C EVIN, 44478-0, THYR, CBCA, 63174-5 #### [facility] ([id number]) [address] [place] [address] PROTEIN LUL Negative Normal NEG [facility] Comment on above: Performed By: #### C EVIN, 19776-7, THYR, CBCA, 89422-3 #### [facility] ([id number]) [address] [address] [place] [address] SPECIFIC GRAVITY LUL 1.010 Normal 1.003-1.035 [facility] Comment on above: Performed By: #### C MP, 10305-6, THYR, CBCA, 73011-3 #### [facility] ([id number]) [address] [place] [address] UROBILINOGEN LUL 0.2 eu/dL Normal <1.1 [facility] Comment on above: Performed By: #### C MP, 45507-5, THYR, CBCA, 69369-5 #### [facility] ([id number]) [address] [address] [place] [address] CBC AND AUTO DIFFon 02-29-20 24 ABSOLUTE BASOPHIL 0.0 X10E9/L Normal 0.0-0.2 [facility] Comment on above: Performed By: #### C BCA, HA1C, THYR, 81913-8 #### [facility] ([id number]) [address] [address] [place] [address] ABSOLUTE NEUTROPHIL 2.8 X10E9/L Normal 1.5-6.6 [facility] Comment on above: Performed By: #### C BCA, HA1C, THYR, 71257-5 #### [facility] ([id number]) [address] [place] [address] Basophils/100 WBC (Bld) 0.7 % Normal [facility] Comment on above: Performed By: #### C BCA, HA1C, THYR, 07049-5 #### [facility] ([id number]) [address] [place] [address] Eosinophils (Bld) [#/Vol] 0.1 10*3/uL Normal 0.0-0.4 [facility] Comment on above: Performed By: #### C BCA, HA1C, THYR, 08867-7 #### [facility] ([id number]) [address] [place] [address] Eosinophils/100 WBC (Bld) 2.1 % Normal [facility] Comment on above: Performed By: #### C BCA, HA1C, THYR, 16666-7 #### [facility] ([id number]) [address] [place] [address] Erythrocyte distribution width (RBC) [Ratio] 13.7 % Normal 11.5-15.0 [facility] Comment on above: Performed By: #### C BCA, HA1C, THYR, 90730-7 #### [facility] ([id number]) [address] [place] [address] Hematocrit (Bld) [Volume fraction] 45.0 % Normal 35-47 [facility] Comment on above: Performed By: #### C BCA, HA1C, THYR, 76391-6 #### [facility] ([id number]) [address] [place] [address] Hemoglobin (Bld) [Mass/Vol] 15.5 g/dL Normal 11.7-15.5 [facility] Comment on above: Performed By: #### C BCA, HA1C, THYR, 72801-4 #### [facility] ([id number]) [address] [place] [address] Lymphocytes (Bld) [#/Vol] 1.4 10*3/uL Normal 1.0-3.5 [facility] Comment on above: Performed By: #### C BCA, HA1C, THYR, 73955-3 #### [facility] ([id number]) [address] [place] [address] Lymphocytes/100 WBC (Bld) 28.9 % Normal [facility] Comment on above: Performed By: #### C JORGE L, HA1C, THYR, 64648-2 #### [facility] ([id number]) [address] [place] [address] MCH (RBC) [Entitic mass] 32.0 pg Normal 27-34 [facility] Comment on above: Performed By: #### C JORGE L, HA1C, THYR, 88615-4 #### [facility] ([id number]) [address] [place] [address] MCHC (RBC) [Mass/Vol] 34.3 g/dL Normal 32-36 [facility] Comment on above: Performed By: #### C BCA, HA1C, THYR, 82644-0 #### [facility] ([id number]) [address] [place] [address] MCV (RBC) [Entitic vol] 93 fL Normal 80-100 [facility] Comment on above: Performed By: #### Mariam COATS, HA1C, THYR, 16050-3 #### [facility] ([id number]) [address] [place] [address] Monocytes (Bld) [#/Vol] 0.4 10*3/uL Normal 0-0.9 [facility] Comment on above: Performed By: #### Mariam BCA, HA1C, THYR, 05189-3 #### [facility] ([id number]) [address], [address] [place] [address] Monocytes/100 WBC (Bld) 8.4 % Normal [facility] Comment on above: Performed By: #### Mariam BCA, HA1C, THYR, 78055-9 #### [facility] ([id number]) [address] [place] [address] Neutrophils/100 WBC (Bld) 59.9 % Normal [facility] Comment on above: Performed By: #### C BCA, HA1C, THYR, 99171-8 #### [facility] ([id number]) [address] [place] [address] Platelet mean volume (Bld) [Entitic vol] 8.5 fL Normal 7-12 [facility] Comment on above: Performed By: #### C BCA, HA1C, THYR, 85355-3 #### [facility] ([id number]) [address] [place] [address] Platelets (Bld) [#/Vol] 272 10*3/uL Normal 150-450 [facility] Comment on above: Performed By: #### C BCA, HA1C, THYR, 05961-4 #### [facility] ([id number]) [address] [place] [address] RBC COUNT 4.83 X10E12/L Normal 3.80-5.20 [facility] Comment on above: Performed By: #### C BCA, HA1C, THYR, 24129-3 #### [facility] ([id number]) [address] [place] [address] WBC (Bld) [#/Vol] 4.7 10*3/uL Normal 4.0-11.0 [facility] Comment on above: Performed By: #### C BCA, HA1C, THYR, 55519-6 #### [facility] ([id number]) [address] [place] [address] HGB A1C (GLYCO-HGB)on 2023 Glucose [Mass/Vol] 97 mg/dL Normal [facility] Comment on above: Performed By: #### C BCA, HA1C, THYR, 33420-7 #### [facility] ([id number]) [address] [place] [address] HbA1c (Bld) [Mass fraction] 5.0 % Normal 4.4-5.6 [facility] Comment on above: Result Comment: NOTE ADA Guidelines Result HgbA1c Normal : less than 5.7 % Prediabetes : 5.7 % to 6.4 % Diabetes : > 6.4 % Use with caution in patients with abnormal hemoglobin variants as the half-life of red blood cells and in vivo glycation rates are affected. Performed By: #### C BCA, HA1C, THYR, 93351-5 #### [facility] ([id number]) [address] [place] [address] THYROID PROFILEon 02-29-2024 Free T4 [Mass/Vol] 0.67 ng/dL Normal 0.61-1.60 [facility] Comment on above: Performed By: #### C BCA, HA1C, THYR, 56591-5 #### [facility] ([id number]) [address] [place] [address] TSH 1.84 uIU/mL Normal 0.49-4.67 [facility] Comment on above: Performed By: #### C BCA, HA1C, THYR, 65238-7 #### [facility] ([id number]) [address] [place] [address] Vitamin D+Metabolites [Mass/ Vol]on 02-29-2024 VITAMIN D 25 HYD TOT 32.3 ng/mL Normal 30-100 [facility] Comment on above: Result Comment: Vitamin D status 25 [place] Vitamin D Deficiency <20 ng/mL Insufficiency 20-29 ng/mL Sufficiency 30-100 ng/mL Toxicity >100 ng/mL NOTE: A pediatric reference range has not been established by the crap game box person of this kit. The [place] [employer] recommends a Vitamin D level of = or >20ng/mL in infants and children. Performed By: #### C EVIN, 94400-5, THYR, CBCA, 91578-1 #### [facility] ([id number]) [address] [place] [address] XR LUMBAR SPINE AP, LATERAL, FLEXION AND [...] Chun MD on 12/03/2023 10:04 AM Normal [facility] XR SPINE CERVICAL 3 VWS OR [...] Jay MD on 12/02/2023 7:06 AM Normal [facility] CBC AND AUTO DIFFon 11-30-19 ABSOLUTE BASOPHIL 0.0 X10E9/L Normal 0.0-0.2 [facility] Comment on above: Performed By: #### C EVIN, 31308-8, THYR, CBCA, 00569-8 #### [facility] ([id number]) [address] [place] [address] ABSOLUTE NEUTROPHIL 2.5 X10E9/L Normal 1.5-6.6 [facility] Comment on above: Performed By: #### C EVIN, 21492-4, THYR, CBCA, 77798-9 #### [facility] ([id number]) [address] [place] [address] Basophils/100 WBC (Bld) 0.5 % Normal [facility] Comment on above: Performed By: #### C EVIN, 97218-8, THYR, CBCA, 38082-1 #### [facility] ([id number]) [address] [place] [address] Eosinophils (Bld) [#/Vol] 0.0 10*3/uL Normal 0.0-0.4 [facility] Comment on above: Performed By: #### C EVIN, 97483-7, THYR, CBCA, 82386-2 #### [facility] ([id number]) [address] [place] [address] Eosinophils/100 WBC (Bld) 1.2 % Normal [facility] Comment on above: Performed By: #### C EVIN, 10092-0, THYR, CBCA, 38677-8 #### [facility] ([id number]) [address] [place] [address] Erythrocyte distribution width (RBC) [Ratio] 13.7 % Normal 11.5-15.0 [facility] Comment on above: Performed By: #### C EVIN, 78428-8, THYR, CBCA, 37427-9 #### [facility] ([id number]) [address] [place] [address] Hematocrit (Bld) [Volume fraction] 43.0 % Normal 35-47 [facility] Comment on above: Performed By: #### C EVIN, 95462-8, THYR, CBCA, 22027-0 #### [facility] ([id number]) [address] [place] [address] Hemoglobin (Bld) [Mass/Vol] 15.0 g/dL Normal 11.7-15.5 [facility] Comment on above: Performed By: #### C EVIN, 75278-6, THYR, CBCA, 13466-3 #### [facility] ([id number]) [address] [place] [address] Lymphocytes (Bld) [#/Vol] 0.9 10*3/uL Low 1.0-3.5 [facility] Comment on above: Performed By: #### Mariam CLEARY, 39495-3, THYR, CBCA, 85743-9 #### [facility] ([id number]) [address] [place] [address] Lymphocytes/100 WBC (Bld) 23.6 % Normal [facility] Comment on above: Performed By: #### Mariam CLEARY, 64592-3, THYR, CBCA, 72079-8 #### [facility] ([id number]) [address] [place] [address] MCH (RBC) [Entitic mass] 32.2 pg Normal 27-34 [facility] Comment on above: Performed By: #### C EVIN, 66190-2, THYR, CBCA, 37619-4 #### [facility] ([id number]) [address] [place] [address] MCHC (RBC) [Mass/Vol] 35.0 g/dL Normal 32-36 [facility] Comment on above: Performed By: #### Mariam CLEARY, 67407-8, THYR, CBCA, 01419-6 #### [facility] ([id number]) [address] [place] [address] MCV (RBC) [Entitic vol] 92 fL Normal 80-100 [facility] Comment on above: Performed By: #### C EVIN, 21972-2, THYR, CBCA, 60388-3 #### [facility] ([id number]) [address] [place] [address] Monocytes (Bld) [#/Vol] 0.3 10*3/uL Normal 0-0.9 [facility] Comment on above: Performed By: #### C EVIN, 49231-5, THYR, CBCA, 16663-4 #### [facility] ([id number]) [address] [place] [address] Monocytes/100 WBC (Bld) 7.0 % Normal [facility] Comment on above: Performed By: #### Mariam CLEARY, 70913-3, THYR, CBCA, 97243-9 #### [facility] ([id number]) [address] [place] [address] Neutrophils/100 WBC (Bld) 67.7 % Normal [facility] Comment on above: Performed By: #### C EVIN, 26752-6, THYR, CBCA, 70773-4 #### [facility] ([id number]) [address] [place] [address] Platelet mean volume (Bld) [Entitic vol] 8.7 fL Normal 7-12 [facility] Comment on above: Performed By: #### C EVIN, 85648-2, THYR, CBCA, 44745-2 #### [facility] ([id number]) [address] [place] [address] Platelets (Bld) [#/Vol] 186 10*3/uL Normal 150-450 [facility] Comment on above: Performed By: #### C MP, 95869-6, THYR, CBCA, 83364-7 #### [facility] ([id number]) [address] [place] [address] RBC COUNT 4.67 X10E12/L Normal 3.80-5.20 [facility] Comment on above: Performed By: #### C MP, 36769-1, THYR, CBCA, 95866-6 #### [facility] ([id number]) [address] [place] [address] WBC (Bld) [#/Vol] 3.7 10*3/uL Low 4.0-11.0 [facility] Comment on above: Performed By: #### C MP, 24848-6, THYR, CBCA, 93020-1 #### [facility] ([id number]) [address] [place] [address] COMPREHENSIVE METABOLIC PANE Mika 11-30-2023 Albumin [Mass/Vol] 4.4 g/dL Normal 3.2-5.3 [facility] Comment on above: Performed By: #### C MP, 18628-4, THYR, CBCA, 66399-2 #### [facility] ([id number]) [address] [place] [address] ALP [Catalytic activity/Vol] 65 U/L Normal 39-130 [facility] Comment on above: Performed By: #### C MP, 42390-5, THYR, CBCA, 96168-3 #### [facility] ([id number]) [address] [place] [address] ALT [Catalytic activity/Vol] 59 U/L High 0-31 [facility] Comment on above: Performed By: #### C MP, 72438-4, THYR, CBCA, 17143-2 #### [facility] ([id number]) [address] [place] [address] Anion gap [Moles/Vol] 6 mmol/L Normal 5-15 [facility] Comment on above: Performed By: #### C EVIN, 80072-3, THYR, CBCA, 68069-4 #### [facility] ([id number]) [address] [place] [address] AST [Catalytic activity/Vol] 31 U/L Normal 0-41 [facility] Comment on above: Performed By: #### C EVIN, 30976-9, THYR, CBCA, 28384-7 #### [facility] ([id number]) [address] [place] [address] Bilirubin [Mass/Vol] 0.8 mg/dL Normal 0.3-1.2 [facility] Comment on above: Performed By: #### C EVIN, 67905-0, THYR, CBCA, 23053-4 #### [facility] ([id number]) [address] [place] [address] Calcium [Mass/Vol] 9.1 mg/dL Normal 8.5-10.5 [facility] Comment on above: Performed By: #### C EVIN, 90032-1, THYR, CBCA, 70125-9 #### [facility] ([id number]) [address] [place] [address] Chloride [Moles/Vol] 103 mmol/L Normal 98-109 [facility] Comment on above: Performed By: #### C EVIN, 07437-5, THYR, CBCA, 11595-0 #### [facility] ([id number]) [address] [place] [address] CO2 [Moles/Vol] 28 mmol/L Normal 22-32 [facility] Comment on above: Performed By: #### C EVIN, 41040-0, THYR, CBCA, 85011-2 #### [facility] ([id number]) [address] [place] [address] Creatinine [Mass/Vol] 0.86 mg/dL Normal 0.40-1.00 [facility] Comment on above: Result Comment: METH OD TRACEABLE TO IDMS STANDARD Performed By: #### C EVIN, 29988-0, THYR, CBCA, 15274-8 #### [facility] ([id number]) [address] [place] [address] GFR/1.73 sq M.predicted among non-blacks MDRD (S/P/Bld) [Vol rate/Area] 89 mL/min/{1.73_m2} Normal >59 [facility] Comment on above: Result Comment: Reported eGFR is based on the CKD-EPI 2020 equation that does not use a race coefficient. Performed By: #### C EVIN, 00906-3, THYR, CBCA, 92569-4 #### [facility] ([id number]) [address] [place] [address] Glucose [Mass/Vol] 97 mg/dL Normal 65-99 [facility] Comment on above: Performed By: #### C EVIN, 06534-9, THYR, CBCA, 80674-7 #### [facility] ([id number]) [address] [place] [address] Potassium [Moles/Vol] 3.8 mmol/L Normal 3.5-5.0 [facility] Comment on above: Performed By: #### C EVIN, 06692-6, THYR, CBCA, 80655-5 #### [facility] ([id number]) [address] [place] [address] Protein [Mass/Vol] 6.6 g/dL Normal 6.0-8.0 [facility] Comment on above: Performed By: #### C EVIN, 70929-5, THYR, CBCA, 28804-3 #### [facility] ([id number]) [address] [place] [address] Sodium [Moles/Vol] 137 mmol/L Normal 134-146 [facility] Comment on above: Performed By: #### Mariam CLEARY, 63308-1, THYR, CBCA, 36043-0 #### [facility] ([id number]) [address] [place] [address] Urea nitrogen [Mass/Vol] 9 mg/dL Normal 5-23 [facility] Comment on above: Performed By: #### Mariam CLEARY, 52884-3, THYR, CBCA, 49025-8 #### [facility] ([id number]) [address] [place] [address] Lipid 1996 panelon 4 Cholesterol [Mass/Vol] 236 mg/dL High 150-200 [facility] Comment on above: Performed By: #### Mariam CLEARY, 83990-2, THYR, CBCA, 64601-8 #### [facility] ([id number]) [address] [facility] [address] [place] [address] Cholesterol in HDL [Mass/Vol] 48 mg/dL Normal >39 [facility] Comment on above: Result Comment: HDL <40 mg/dL - High Risk HDL > or = 40mg/dL- Desirable HDL >60 mg/dL - Negative Risk Performed By: #### Mariam CLEARY, 10575-4, THYR, CBCA, 23552-3 #### [facility] ([id number]) [address] [place] [address] Cholesterol in LDL [Mass/Vol] 124 mg/dL Normal <130 [facility] Comment on above: Result Comment: LDL <100 mg/dL - Desirable LDL >160 mg/dL - High Risk Performed By: #### C EVIN, 21454-7, THYR, CBCA, 20227-1 #### [facility] ([id number]) [address] [place] [address] Cholesterol in VLDL [Mass/Vol] 64 mg/dL High 0-30 [facility] Comment on above: Performed By: #### C EVIN, 33353-8, THYR, CBCA, 37605-9 #### [facility] ([id number]) [address] [place] [address] CHOLESTEROL:HDL 4.9 Normal 1.0-5.0 [facility] Comment on above: Performed By: #### C EVIN, 14144-6, THYR, CBCA, 77275-4 #### [facility] ([id number]) [address] [place] [address] Triglyceride [Mass/Vol] 318 mg/dL High 27-150 [facility] Comment on above: Performed By: #### C EVIN, 28812-8, THYR, CBCA, 35944-2 #### [facility] ([id number]) [address] [place] [address] THYROID PROFILEon 11-30-2023 Free T4 [Mass/Vol] 0.62 ng/dL Normal 0.61-1.60 [facility] Comment on above: Performed By: #### C EVIN, 15534-9, THYR, CBCA, 80956-5 #### [facility] ([id number]) [address] [place] [address] TSH 0.97 uIU/mL Normal 0.49-4.67 [facility] Comment on above: Performed By: #### C EVIN, 54927-7, THYR, CBCA, 63080-0 #### [facility] ([id number]) [address] [place] [address] Vitamin D+Metabolites [Mass/ Vol]on 11-30-2023 VITAMIN D 25 HYD TOT 25.5 ng/mL Low 30-100 [facility] Comment on above: Result Comment: Vitamin D status 25 [place] Vitamin D Deficiency <20 ng/mL Insufficiency 20-29 ng/mL Sufficiency 30-100 ng/mL Toxicity >100 ng/mL NOTE: A pediatric reference range has not been established by the crap game box person of this kit. The [place] [employer] recommends a Vitamin D level of = or >20ng/mL in infants and children. Performed By: #### C EVIN, 03152-6, THYR, CBCA, 12373-2 #### [facility] ([id number]) [address] [place] [address] [facility] SARS-CoV-2 (COVID-19) RNA MEGAN+probe Ql (Unsp spec) Not detected Normal NOT DETECTED [facility] Comment on above: Result Comment: This test is not yet approved or cleared by the [place] FDA. When there are no FDA-approved or cleared tests available, and other criteria are met, FDA can make tests available under an emergency access mechanism called an Emergency Use Authorization (EUA). The EUA for this test is supported by the Air Quality Technician of Health and Human Service's (HHS's) declaration [...] SARS-CoV-2. Performed By: #### C VDTB #### [facility] [address] [place] [address] Adis Warren Covid-19 PCR ([facility])on 09-11 SARS-CoV-2 (COVID-19) RNA MEGAN+probe Ql (Unsp spec) Not detected Normal NOT DETECTED [facility] Comment on above: Result Comment: This test is not yet approved or cleared by the [place] FDA. When there are no FDA-approved or cleared tests available, and other criteria are met, FDA can make tests available under an emergency access mechanism called an Emergency Use Authorization (EUA). The EUA for this test is supported by the Air Quality Technician of Health and Human Service's (HHS's) declaration [...] SARS-CoV-2. Performed By: #### C VDTB #### [facility] [address] [place] [address] Adis Warren OBSOLETEon 07-04-2021 OBSOLETE Refill (COURTNEY) MARITA MESSINA ([id number]) 1985 F Date Time Provider Department 07/04/21 RAYMON[facility] MEDINA During your visit today, we recorded the following information about you: Ashtyn Perez Ma 07/04/2021 11:37 AM Signed Please see pended medication. Pharmacy linked. Last ordered 05/31/2021. Ashtyn Shomasha Bazzi Allergies As of Date: 07/04/2021 (No [...] Status:Closed by RAYMOND MEDINA on 07/05/[address] [facility] OBSOLETEon 05-27-2021 OBSOLETE Refill ([facility]) MARITA MESSINA ([id number]) 1985 F Date Time Provider Department 05/27/21 RAYMOND MEDINA [facility] During your visit today, we recorded [...] Status:Closed by RAYMOND MEDINA on 05/30/[address] [facility] OBSOLETEon 04-26-2021 OBSOLETE Refill ([facility]) MARITA MESSINA ([id number]) 1985 F Date Time Provider Department 04/26/21 [...] Encounter Status:Closed by RAYMOND MEDINA on 04/27/[address] [facility] Coding Summary.on 05-31-2019 Coding Summary. CODING DATE: 05/31/2019 [facility] STATUS: Home ([facility]) PAYOR: Medicaid EA DESCRIPTION 0390 LEVEL I PATHOLOGY ADMIT DX: REASON FOR VISIT DX: R87.610 Atypical squamous cells of undetermined significance on cytologic smear of cervix (ASC-US) FINAL DX: PRINCIPAL: N87.9 Dysplasia of cervix uteri, unspecified SECONDARY: R87.810 Cervical high risk human papillomavirus (HPV) DNA test positive PYMT PROC [facility] STAT DESCRIPTION DOCTOR NAME DATE NOTE: The code number assigned matches the documented diagnosis and / or procedure in the patient's chart. However, the narrative phrase printed from the coding software may appear abbreviated, or result in slightly different terminology. Coded By: Prachi Andres Date Saved: 05/31/2019 06:25 am Normal [facility] Gynecology Office/Clinic Not freddie 05-20-2019 Gynecology [...] and next steps Ordered: Colposcopy with biopsy [id number] Pathology Tissue Exam Pathology Tissue Exam Follow-up With When Contact Information She BINGHAM CNP In 1 year [email or web address] Additional Instructions: She BINGHAM CNP Only if needed [email or web address] Additional Instructions: Problem List/Past Medical History Ongoing [...] 2: Father and Grandparent. Hyperlipidemia: Father. Normal [facility] Comment on above: Result Comment: Elec tronically Signed By: She BINGHAM CNP\Date and Time Signed: 05/20/19 14:48 EDT Coding Summary.on 05-06-2019 Coding Summary. CODING DATE: 05/06/2019 FINAL [facility] STATUS: Home (Routine DC) PAYOR: Medicaid EAPG DESCRIPTION 0392 PAP SMEARS 0397 LEVEL II MICROBIOLOGY TESTS ADMIT DX: REASON FOR VISIT DX: R87.610 Atypical squamous cells of undetermined significance on cytologic smear of cervix (ASC-US) FINAL DX: PRINCIPAL: R87.610 Atypical squamous cells of undetermined significance on cytologic smear of cervix (ASC-US) SECONDARY: R87.810 Cervical high risk human papillomavirus (HPV) DNA test positive [facility] STAT DESCRIPTION DOCTOR NAME DATE NOTE: The code number assigned matches the documented diagnosis and / or procedure in the patient's chart. However, the narrative phrase printed from the coding software may appear abbreviated, or result in slightly different terminology. Coded By: Tish Dean CphT Date Saved: 05/06/2019 09:14 am Normal [facility] PAP [id number] 05-05-2019 Cytology report Cyto stain Doc (Cvx/Vag) Note Abnormal [facility] Comment on above: Result Comment: TEST S RESULT FLAG UNITS REF RANGE LAB Clinician Provided Cytology Information Source.............Cervix Other..............IUD No. of containers..01 ThinPrep Vial DIAGNOSIS: [A] 01 EPITHELIAL CELL ABNORMALITY. ATYPICAL SQUAMOUS CELLS OF UNDETERMINED SIGNIFICANCE (ASC-US). 01 Satisfactory for evaluation. Endocervical and/or squamous metaplastic cells (endocervical component) are present. 01 Maricarmen Stovall, Independent Film Maker (ASCP) 01 Jennifer Lopes MD, Pathologist 01 [...] Low,>-Panic High,A-Abnormal,AA-Critical Abnormal Performed at: [address] [facility] [id number] Soraya Cabrera MD, Performed By: #### 1 [id number] #### [facility] [address] [place] [address] HPV 16+18+31+33+35+39+4 5+51+52+56+58+59+68 DNA Probe+sig amp Ql (Cvx) Positive Abnormal Negative [facility] Comment on above: Result Comment: This high-risk HPV test detects thirteen high- risk types (16/18/31/33/35/39/45/51/52/56/58/59/68) without differentiation. Performed at: [facility] [id number] MD Rick Lira Performed at: =[facility] [id number] MD Rick Lira Performed By: #### 1 [id number], [id number] #### [facility] [address] [place] [address] Physician Read PAPon 019 Pathologist review Noe (Unsp spec) [Interp] Note [facility] Comment on above: Result Comment: TEST S RESULT FLAG UNITS REF RANGE LAB Physician Read Pap Note 01 Performed FLAG LEGEND: L-Low Normal,H-High Normal,LL-Alert Low,HH-Alert High <-Panic Low,>-Panic High,A-Abnormal,AA-Critical Abnormal Performed at: 01 [facility] [address] [place] [address] Soraya Cabrera MD, Performed at: [facility] [address] [id number] MD Rick Lira Performed By: #### 1 [id number], [id number] #### [facility] [address] [place] [address] Gynecology Office/Clinic Not freddie 04-29-2019 Gynecology Office/Clinic [...] results Ordered: Office Visit Level 3 Est 50413 PAP [id number] w/HPV HR US Pelvis Non-OB Complete 2. 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 Hyperlipidemia: Father. [facility] Comment on above: Result Comment: Elec tronically Signed By: She BINGHAM CNP\Date and Time Signed: 04/29/19 11:36 EDT PAP [id number] 04-29-2019 Gynecological Body Site CERVIX [facility] Comment on above: Performed By: #### 1 [id number], [id number] #### [facility] [address] [place] [address] Other Patient Information IUD Normal [facility] Comment on above: Performed By: #### 1 [id number], [id number] #### [facility] [address] [place] [address] Vital Signs Date Time Vital Sign Value Performing Clinician Jessica jacques 11-10-2019 14:27-0500 BMI (Body Mass Index) 35.43 kg/m2 [facility] 11-10-2019 14:27-0500 Body Temperature 97.59 [degF] [facility] 11-10-2019 14:27-0500 Body weight 90.72 kg [facility] , [place] 11-10-2019 14:27-0500 BP Diastolic 65 mm[Hg] [facility] [place] 11-10-2019 14:27-0500 BP Systolic 102 mm[Hg] [facility] [place] 11-10-2019 14:27-0500 Height 160 cm [facility] [place] 11-10-2019 14:27-0500 Pulse Oximetry 99 % [facility] [place] Encounters Encounter Date Encounter Type Care Provider Facility Start: 05-05-2024 End: 05-05-2024 ambulatory ELISEO YURI [facility] Start: 03-24-2024 End: 03-24-2024 ambulatory CAITLYN Griffiths [facility] Start: 03-23-2024 End: 03-24-2024 Emergency department patient visit LUIZA ORDOÑEZ [facility] Start: 03-23-2024 End: 03-23-2024 Emergency department patient visit CAITLYN Griffiths [facility] Start: 03-10-2024 End: 04-10-2024 ambulatory LEONIDAS SALCIDO [facility] Start: 03-08-2024 End: 03-08-2024 Emergency department patient visit CAITLYN Griffiths [facility] Start: 03-03-2024 End: 03-03-2024 ambulatory Sana Radford MD Facility:[facility] Start: 02-29-2024 End: 02-29-2024 ambulatory CAITLYN FLOREZRMERHORN [facility] Start: 02-18-2024 End: 02-18-2024 ambulatory Caitlyn Sparrow MD Facility:[facility] Start: 02-11-2024 End: 03-10-2024 ambulatory [facility] Start: 01-28-2024 End: 01-28-2024 ambulatory Caitlyn Sparrow MD Facility:[facility] Start: 01-23-2024 End: 02-09-2024 ambulatory [facility] Start: 11-30-2023 End: 11-30-2023 ambulatory [facility] Start: 11-30-2023 Encounter for genera l adult medical examination without abnormal findings [facility] Start: 08-09-2023 Refill Raymond Pierre ph, MD Work Phone: Neurology Comment on above: Refill Request Start: 07-02-2023 End: 07-02-2023 ambulatory Caitlyn Sparrow MD Facility:[facility] Start: 03-09-2023 Refill Raymond Pierre ph, MD Work Phone: Neurology Comment on above: Refill Request Start: 08-24-[address] [facility] Start: 07-11-2022 End: 07-12-[address] MUNIRA DEAL Facility:[facility] Start: 05-22-2022 Get Medical Advice Raymond Medina MD Work Phone: Neurology Comment on above: Med refill Start: 03-08-2022 End: 03-09-[address] CAITLYN SPARROW Facility:[facility] Start: 02-23-2022 End: 02-23-2022 ambulatory Karel Henry Other [facility] Other Start: 02-23-2022 Telephone encounter Karel Elaine [facility] Start: 01-09-2022 Refill Raymond Pierre ph, MD Work Phone: Neurology Comment on above: Refill Request Start: 01-04-2022 End: 01-04-2022 ambulatory Karel Elaine Other [facility] Other Start: 01-04-2022 Telephone encounter Karel Elaine [facility] Start: 12-12-2021 End: 12-12-2021 ambulatory Karel Elaine Other [facility] Other Start: 12-12-2021 Telephone encounter Karel Elaine [facility] Start: 11-30-2021 End: 12-01-[address] MUNIRA DEAL Facility:[facility] Start: 11-16-2021 End: 11-16-2021 ambulatory Karel Elaine Other [facility] Other Start: 11-16-2021 Telephone encounter Karel Elaine [facility] Start: 10-11-2021 Encounter for preprocedural laboratory examination DR MUNIRA DEAL [facility] Start: 10-11-2021 End: 10-11-[address] MUNIRA [...] 08-03-2021 End: 08-03-2021 ambulatory Karel Elaine Other [facility] Other Start: 08-03-2021 Telephone encounter Karel Elaine [facility] Start: 07-28-2021 End: 07-28-2021 ambulatory Karel [facility] Other [facility] Other Start: 07-28-2021 Telephone encounter Karel Elaine [facility] Start: 11-10-2019 End: 11-11-2019 Patient encounter procedure BRADLEY SIMMONS [facility] Start: 11-10-2019 End: 11-10-2019 Subsequent hospital visit by physician Bradley Simmons Work Phone: [facility] Comment on above: Arrived Procedures Date Procedure Procedure Detail Performing Clinician Start: 10-03-2021 Adult depression screening assessment Raymond Medina MD Work Phone: Plan of Treatment Date Care Activity Detail Author Start: 2036 Shingles Vaccine (1 of 2) Shingles Vaccine (1 of 2) [place], [place] Start: 05-11-2023 Influenza vaccination [facility] Start: 10-03-2022 Adult depression screening assessment DEPRESSION SCREENING [facility] Start: 09-10-2022 DEPRESSION ASSESSMENT DEPRESSION ASS ESSMENT [facility] Start: 05-11-2022 Influenza vaccination [facility] Start: 03-29-2020 End: 03-29-2020 Appointment 03/29/2020 Appointment General Surgery Bradley Simmons MD [address] [place] [address] [phone] [facility] Start: 05-11-2019 Influenza vaccination Flu vaccine (# 1) [place], [place] Start: 2016 HPV TESTING HPV TESTING [facility] Start: 2016 Screening for malign ant neoplasm of cervix HPV Testing [facility] Start: 2007 Cervical cancer screen Cervical canc er screen [place], [place] Start: 2007 PAP TESTING PAP TESTING [facility] Start: 2007 Screening for malign ant neoplasm of cervix Pap Testing [facility] Start: 2005 Urine microalbumin profile DTAP,TDAP,TD (1 - Tdap) [facility] Start: 2004 HEPATITIS C SCREENING HEPATITIS C [facility] Start: 2004 Hepatitis C screening Hepatitis C [facility] Start: 2004 HIV SCREENING HIV SCREENING [facility] Start: 2004 HIV screening HIV Screening [facility] Start: 2001 HIV screen HIV screen [place], [place] Start: 12-25-1997 Urine microalbumin profile DTaP,Tdap,Td Vaccine (6 - Tdap) [facility] Start: 1997 DTaP/Tdap/Td vaccine (1 - Tdap) DTaP/Tdap/Td vaccine (1 - Tdap) [place], [place] Start: 1991 COVID-19 VACCINE (1) COVID-19 VACCIN E (1) [facility] Start: 1987 Varicella vaccine (1 of 2 - 2-dose childhood series) Varicella vaccine (1 of 2 - 2-dose childhood series) [place], [place] Start: 01-14-1987 COVID-19 VACCINE (#1) COVID-19 VACCI NE (#1) [facility] Start: 1986 HEPATITIS B (1 of 3 - 3-dose series) HEPATITIS B (1 of 3 - 3-dose series) [facility] Immunizations Immunization Date Immunization Notes Care Provider Hansel orellana 08-22-2019 influenza virus vacc ine, unspecified formulation Raymond Medina MD Work Phone: [facility] Payers Date Payer Category Payer Unknown 2019 Medicaid MEDICAID [facility] MEDICAID [id number] 2019-Present [phone] [address] [place] [address] Medicaid [id number] 2019 Medicaid [id number] .[id number] 2019 Medicare MEDICARE MEDICAR E A AND B [id number] 2019-Present [phone] [address] [address] [place] [address] Medicare [id number] .[id number] 2019 Medicare [id number] 1.13.159.2.7.3 .[id number] 2014 Medicaid MEDICAID [facility] DEPT OF JOB xxxxxxxxxxxx 2014-Present [phone] [address] [place] [address] xxxxxxxxxxxx [id number] .[id number] 2014 Medicare MEDICARE MEDICAR E PART A AND B xxxxxxxxxxx 2014-Present [phone] [address] [address] [place] [address] xxxxxxxxxxx [id number].3 .920971.315 1986 Unknown [id number] 2.16.840.1.136787.3.579.2.177 1986 Unknown [id number] 2.16.840.1.907249.3.579.2.593 1986 Unknown [id number] 2.16.840.1.368018.3.579.2.593 1986 Unknown [id number] 2.16.840.1.556205.3.579.2.593 1986 Unknown [id number] 2.16.840.1.633500.3.579.2.593 1986 Unknown [id number] 2.16.840.1.882592.3.579.2.593 1986 Unknown [id number] 2.16.840.1.451855.3.579.2.593 1986 Unknown [id number] 2.16.840.1.251259.3.579.2.593 1986 Unknown [id number] 2.16.840.1.407546.3.579.2.593 1986 Unknown [id number] 2.16.840.1.149882.3.579.2.593 1986 Unknown [id number] 2.16.840.1.265251.3.579.2.196 1986 Unknown [id number] 2.16.840.1.196446.3.579.2.196 1986 Unknown [id number] 2.16.840.1.671446.3.579.2.196 1986 Unknown [id number] 2.16.840.1.447356.3.579.2.196 1986 Unknown [id number] 2.16.840.1.200789.3.579.2.128 6 1986 Unknown [id number] 2.16.840.1.754782.3.579.2.128 6 1986 Unknown [id number] 2.16.840.1.329561.3.579.2.128 6 1986 Unknown [id number] 2.16.840.1.955820.3.579.2.128 6 1986 Unknown [id number] 2.16.840.1.948131.3.579.2.128 6 1986 Unknown [id number] 2.16.840.1.600678.3.579.2.128 6 1986 Unknown [id number] 2.16.840.1.211368.3.579.2.128 6 1986 Unknown [id number] 2.16.840.1.140179.3.579.2.128 6 1986 Unknown [id number] 2.16.840.1.871116.3.579.2.128 6 1986 Unknown [id number] 2.16.840.1.587995.3.579.2.128 6 1986 Unknown [id number] 2.16.840.1.155327.3.579.2.128 6 1986 Unknown [id number] 2.16.840.1.056866.3.579.2.128 6 1986 Unknown [id number] 2.16.840.1.017667.3.579.2.128 6 1986 Unknown [id number] 2.16.840.1.199762.3.579.2.128 6 1959 Medicaid [id number] 1959 Medicare [id number] Social History Date Type Detail Facility Start: 11-25-2018 End: 11-10-2019 Tobacco smoking status NHIS Never smoker [facility] Start: 04-21-2019 End: 11-10-2019 Alcohol intake Current drinker of alcohol (finding) [place], [place] Start: 11-10-2019 Alcohol Comment [place], [place] Start: 1986 Sex Assigned At Not on file M [place], [place] Start: 11-25-2018 Tobacco use and exposure Smoke less tobacco non-user [facility] Start: 11-25-2018 History SDOH Alcohol Comment social [facility] Start: 04-21-2019 End: 08-19-2020 Sex Assigned At [facility] Start: 04-21-2019 End: 08-19-2020 History of Social function [facility] Adult Depression Screening Assessment 4 [facility] Clinical Notes 09-15-2021 to 08-09-2023 Telephone [...] Ashtyn Perez MA documented in this encounter [facility] 03-09-2023 Miscellaneous Notes Formattin g of this note might be different from the original. Please see pended medication. Pharmacy linked. Last ordered 10/25/2022. Ashtyn Perez MA documented in this encounter [facility] 07-11-2022 Note CONSULTATION PROCEDURE DATE: 07/11/2022 [...] be followed up in the office. [facility] 07-11-2022 Note CONSULTATION CONSULTATION DATE: 07/11/2022 CHIEF COMPLAINT: Trapezius and upper back pain. HISTORY OF PRESENT ILLNESS: This is a 36-year-old female who is known to the [facility]. The patient, in October of this year, had a rhizotomy radiofrequency ablation along her cervical spine. This has afforded the patient significant improvement. 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 CC: Caitlyn Sprarow M.D. [facility] 05-23-2022 Miscellaneous Notes Formattin g of this note might be different from the original. Please see pended medication. Pharmacy linked. Last ordered 10/20/2021. Ashtyn Perez Ma documented in this encounter [facility] 03-08-2022 Note CONSULTATION CONSULTATION DATE: 03/08/2022 [...] Patient does agree with plan of care. [facility] Signed and Approved by: LUDA RODRIGUEZ . 03/09/2022 13:38:00 [facility] 01-09-2022 Miscellaneous Notes Please see pended medication. Pharmacy linked. Last ordered 07/05/2021. Ashtyn Perez Ma documented in this encounter [facility] 11-30-2021 Note CONSULTATION PAIN MANAGEMENT CONSULTATION [...] time, and patient agrees to this plan. [facility] Signed and Approved by: LUDA RODRIGUEZ . 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 09/25/2021 23:23:00 [facility] Evaluation note Diagnosis Excessive physiologic tremor Essential and other specified forms of tremor [facility]* Diagnosis Daytime sleepiness Narcolepsy without cataplexy [facility] Diagnosis Daytime sleepiness Narcolepsy without cataplexy [facility] Diagnosis Daytime sleepiness Narcolepsy without cataplexy documented in this encounter [facility] Summary Purpose Family History No Family History Records FoundNo Family History Records FoundNo Family History Records FoundNo Family History Records FoundNo Family History Records FoundNo Family History Records Found Advance Directives No Advanced Directives Records FoundDocuments on File Type Date Recorded Patient Fitting Room Checker Expl anation Advance Directives and Living Will Power of Administrative Processor History of Present Illness * Bradley Simmons MD - 11/10/2019 2:00 PM EST [facility] PATIENT NAME: Marita Messina MRN NUMBER: [id number] DATE OF : 1985 PHONE NUMBER: [phone] PRIMARY CARE PHYSICIAN: No primary care provider [...] other week Pulmonary embolism (HCC) 2014 [facility] Past Surgical History: Past Surgical History: Procedure Laterality Date HERNIA REPAIR a year had repair above belly button at [facility] HERNIA REPAIR umbilical and above belly buton also at [facility] about 2 years ago HYSTERECTOMY TUMOR REMOVAL Left 2012 left thumb at [facility] Family History: Family History Problem Relation Age [...] CT scan reports and images from the [facility] E from May 2019 and March [...] section and content) DATE CREATED AUTHOR 05/31/2019 [facility] DATE CREATED AUTHOR AUTHOR'S ORGANIZ ATION [facility] DATE CREATED AUTHOR AUTHOR'S ORGANIZ ATION 12/01/2021 [facility] DATE CREATED AUTHOR AUTHOR'S ORGANIZ ATION 09/02/2022 [facility] DATE CREATED AUTHOR AUTHOR'S ORGANIZ ATION 04/04/2024 [facility] DATE CREATED AUTHOR AUTHOR'S ORGANIZ ATION 05/06/2024 [facility] Source Comments (unrecognize d section and content) In the event this informatio n is protected by the Federal Confidentiality of Alcohol and Drug Abuse Patient Records regulations: The Federal rules restrict any use of the information to criminally investigate or prosecute any alcohol or drug abuse patient.[facility] the event this information is protected by the Federal Confidentiality of Alcohol and Drug Abuse Patient Records regulations: The Federal rules restrict any use of the information to criminally investigate or prosecute any alcohol or drug abuse patient.[facility] the event this information is protected by the Federal Confidentiality of Alcohol and Drug Abuse Patient Records regulations: The Federal rules restrict any use of the information to criminally investigate or prosecute any alcohol or drug abuse patient.[facility] the event this information is protected by the Federal Confidentiality of Alcohol and Drug Abuse Patient Records regulations: The Federal rules restrict any use of the information to criminally investigate or prosecute any alcohol or drug abuse patient.[facility] Reason for Visit (unrecogniz ed section and content) Reason Onset Date Comments Refill Request 01/09/2022 Reason Onset Date Comments Refill Request 03/09/2023 Reason Onset Date Comments Refill Request 08/09/2023 Care Teams (unrecognized sec tion and content) [employer] Relationship Specialty Start Date End Date Caitlyn Sparrow [address] [place] [address] PCP - General Internal Medicine 11/25/18 [employer] Relationship Specialty [place] [address] PCP - General Internal Medicine 11/25/18 [employer] Relationship Specialty Start Date End Date Caitlyn Sparrow [address] [place] [address] PCP - General Internal Medicine 11/25/18 [employer] Relationship Specialty Start Date End Date Caitlyn Sparrow [address] [place], [place] [id number] PCP - General Internal Medicine 11/25/18 FOR [...] BE BASED ON THE PRIMARY CLINICAL RECORDS. [employer] [facility]. provides no warranty or guarantee of the accuracy or completeness of information in this document.
--- NOTE | 2024-05-08 11:44 | P.CN_ITS ---
Consult Note: HPI Data of Consult Patient: known to practice within the last 3 years Requesting Physician: Michelle Randhawa NP Primary Care Provider: CAITLYN SPARROW Consult Narrative Reason for consult: f/u Narrative: Marita Messina a pleasant 38 year old female presents for evaluation of chronic neck and back pain. Patient has tried and failed OTC medications, home based exercise program and cervical traction. Since that time her back pain has been the most aggravating factor, especially with ADLs and housework. recent lumbar imaging consistent with lumbar spondylosis and minimal degenerative disc changes at L5-S1. Underwent bilateral L4-5 L5-S1 facet RFA on 03/03/24 without improvement, significant pain increase post-op and numerous weeks following. see previous notes for details. Since last visit she has noticed improvement in pain with TENS flexeril 15mg BID gabapentin 300mg HS. unfortunately dry needling was not covered by insurance and she could not afford, massage therapy not available. medrol dose pack provided mild relief. Patient has noticed improvement in hip pain but continues to have severe spasms and tightness to low back. Pain 02/17 today tight increased with standing and walking. cc:: CC: Michelle Randhawa NP Review of Systems ROS Status of ROS 10 or more systems reviewed and unremark able except as noted in history and below Musculoskeletal Reports: back pain, neck pain, muscle cramps and muscle weakness PFSH PFSH Medical History Anxiety ?F41.9 - Anxiety disorder, unspecified (ICD-10) Hiatal hernia ?K44.9 - Diaphragmatic hernia without obstruction or gangrene (ICD-10) Acid reflux ?K21.9 - Gastro-esophageal reflux disease without esophagitis (ICD-10) Pulmonary embolism ?I26.99 - Other pulmonary embolism without acute cor pulmonale (ICD-10) Asthma ?J45.909 - Unspecified asthma, uncomplicated (ICD-10) Surgical History History of surgical removal of Bartholin’s gland cyst ?Z98.890 - Other specified postprocedural states (ICD-10) ?Z87.42 - Personal history of other diseases of the female genital tract (ICD-10) History of eye surgery ?Z98.890 - Other specified postprocedural states (ICD-10) [place] teeth extracted ?K08.409 - Partial loss of teeth, unspecified cause, unspecified class (ICD- 10) History of hernia repair ?Z98.890 - Other specified postprocedural states (ICD-10) ?Z87.19 - Personal history of other diseases of the digestive system (ICD-10) History of hysterectomy ?Z90.710 - Acquired absence of both cervix and uterus (ICD-10) Meds Home Medications and Allergies Home Medications ?Medication ?Instructions ?Recorded ?Confirmed ?Type albuterol sulfate 90 mcg/actuation 2 puff inhalation Q6H PRN 06/22/23 03/03/24 History aerosol inhaler shortness of breath or wheezing buspirone 15 mg tablet 15 mg PO BID 06/22/23 03/03/24 History cariprazine 3 mg capsule (Vraylar) 6 mg PO DAILY 06/22/23 03/03/24 History erenumab-aooe 70 mg/mL 70 mg subcut 06/22/23 History subcutaneous auto-injector (Aimovig Autoinjector) fluoxetine 40 mg capsule (Prozac) 40 mg PO DAILY 06/22/23 03/03/24 History omeprazole 20 mg capsule,delayed 40 mg PO BID 06/22/23 03/03/24 History release propranolol 20 mg tablet 20 mg PO Q12H 06/22/23 03/03/24 History rizatriptan 5 mg tablet 5 mg PO Q2H PRN migraine headache 06/22/23 03/03/24 History phentermine 37.5 mg tablet 18.75 mg PO DAILY 01/28/24 03/03/24 History (Adipex-P) cyclobenzaprine 10 mg tablet 10 mg PO BID 02/07/24 03/03/24 History baclofen 10 mg tablet mg 02/18/24 History oxycodone-acetaminophen 5 mg-325 1 tab PO TID PRN pain #21 tabs 03/12/24 Rx mg tablet (Percocet) gabapentin 300 mg capsule 300 mg PO .QHS #30 caps 03/20/24 Rx oxycodone-acetaminophen 5 mg-325 1 tab PO BID PRN pain #60 tabs 03/20/24 Rx mg tablet (Percocet) Allergies Allergy/AdvReac Type Severity Reaction Status Date / Time hydrocodone [From Vicodin] Allergy Hives Verified 03/03/24 09:21 Exam Narrative Exam Narrative: diffuse myofascial pain and tenderness Constitutional Documenting provider has reviewed patient's vital signs: yes Common normals: no apparent distress, oriented x3, healthy appearing, alert and well nourished General appearance: cooperative HENMT Common normals: normocephalic, hearing grossly normal bilaterally and moist oral mucous membranes Head and scalp: normocephalic Eye Common normals: PERRL Pupil: PERRL Neck & C-Spine Common normals: full ROM General: normal visual inspection Cervical spine: pain with cervical ROM, paracervical muscle tenderness and trapezius muscle tenderness Other: pain with flexion extension and rotation axial neck pain without radiculopathy Chest Common normals: inspection of chest normal Respiratory Common normals: normal respiratory effort, no retractions and no use of accessory muscles Back & Pelvis Lumbar spine/lower back: normal to inspection, lumbar ROM normal, pain with ROM, paraspinal muscle tenderness, paraspinal muscle spasm and straight leg raise negative bilaterally Other: bilateral facet loading positive notable myofascial pain/stiffness and spasming Extremity Common normals: normal to inspection and full ROM Neuro Common normals: oriented x3, CN's II-XII intact bilaterally, moves all extremities, no focal motor deficits, no sensory deficits noted and deep tendon reflexes 2+ bilaterally Sensorium/orientation: alert Motor exam: strength 5/5 throughout and no movement abnormalities noted Psych Common normals: mental status grossly normal, thought process normal, cooperative, affect normal, speech normal and activity/motor behavior normal Speech: normal speech Thought process: normal thought process Results Additional Findings Additional findings: If on a controlled substance or opioids, I have checked an [place] report on this patient and there are no aberrancies noted in the prescribing history.??If on a controlled substance or opioid a drug screen was completed and reviewed within the last year, and if there has not been a drug screen completed we ordered one today to monitor higher risk, state monitored pain medication use. As part of providing excellent, safe, comprehensive care, the following was completed at our patient's visit: 1. A medication reconciliation and review to ensure accurate knowledge of current/active medications, including asking our patients to inform us about any [id number] medications or herbal remedies/nutritional supplements/alternative remedies. 2. A review to specifically ensure our patients have had annual screening for screening for depression, screening for tobacco use, and screening for unhealthy alcohol use. For concerning screenings had a discussion with the patient, provided patient education, and recommended follow-up with primary care provider when appropriate. If patient noted with a risk of falling, they received education on strength, gait, and balance training to prevent future risk of falling. Assessment and Plan Assessment and Plan (1) Lumbar radiculopathy: (2) Myofascial pain syndrome: (3) Chronic pain syndrome: (4) Cervical spondylosis: (5) Lumbar spondylosis: Plan increase gabapentin 300mg BID increase flexeril 10mg tabs 1.5 tabs TID PRN pain/spasms continue TENS and salonpas continue stretching and HEP defer lumbar TFESIs at this time, recently completed two medrol dose packs risks vs benefits of medication regimen reviewed f/u 6 weeks to evaluate changes to medication regimen
== END 2024-05-08 11:22 | disposition home or self-care (01) ==
LOC: PM 11:21
PROVIDERS: PCP Internal Medicine; Visit Provider Nurse Practitioner
DX: M54.16 Radiculopathy, lumbar region (principal); M79.18 Myalgia, other site; G89.4 Chronic pain syndrome; M47.812 Spondylosis without myelopathy or radiculopathy, cervical region; M47.816 Spondylosis without myelopathy or radiculopathy, lumbar region
CPT/HCPCS: G0463

== ENCOUNTER 2024-06-18 11:05 | Outpatient (OUT) | payer MEDICARE, MEDICAID, SELFPAY ==
--- OUTSIDE RECORDS SUMMARY | 2024-06-18 11:18 | XMS_ITS | CCD ---
Author Organization [facility] Care Team Providers Care Gelatin Maker Utility Name Role Phone BRADLEY SIMMONS Referring Unavailable [...] TOYIN, DR MUNIRA Avalos Admitting Unavailable Kyara, [facility] Provider Kyara CLEMONS, [facility] Ness janice Radford MD, Sana Doyle Attending Unavailable Martha RUSSO, Dorcas Stewart Attending Christian Sparrow MD, [facility] Ness wilfredoble Kyara CLEMONS, [facility] Ness janice Radford MD, Sana Doyle Attending Unavailable Kyara CLEMONS, [facility] Ness janice Radford MD, Sana Doyle Attending Unavailable Kyara CLEMONS, [facility] Ness janice Radford MD, Sana Doyle Attending Unavailable KYARA, CAITLYN Griffiths Referring Unavailabl e KYARA, [facility] Primary Care Unavailabl e LEONIDAS SALCIDO Referring Unavailable KYARA, [facility] Primary Care Unavailabl e LEONIDAS SALCIDO Referring Unavailable KYARA, [facility] Primary Care Unavailabl e LEONIDAS SALCIDO Referring Unavailable KYARA, [facility] Primary Care Unavailabl e KYARA, [facility] Referring Unavailabl e KYARA, [facility] Primary Care Unavailabl e KYARA, [facility] Referring Unavailabl e KYARA, [facility] Primary Care Unavailabl e KYARA, [facility] Referring Unavailabl e KYARA, [facility] Primary Care Unavailabl e KYARA, [facility] Primary Care Unavailabl DAVEY Shelton Attending Unavailable LEONIDAS SALCIDO Referring Unavailable KYARA, [facility] Primary Care Unavailabl e KYARA, [facility] Primary Care UnavailLUIZA Billy Attending Unavailable LUIZA ORDOÑEZ Attending LUIZA Navarro Referring Unavailable CAITLYN SPARROW Primary Care Unavailabl e KYARA, CAITLYN Griffiths Referring Unavailabl e KYARA, CAITLYN Griffiths Primary Care Unavailabl e YURI, ELISEO Attending Unavailable KYARA, CAITLYN Griffiths Referring Unavailabl e KYARA, CAITLYN Griffiths Primary Care Unavailabl e YURI, MOHAMMED Referring Unavailable KYARA, CAITLYN Griffiths Primary Care Unavailabl e YURI, MOHAMMED Referring Unavailable KYARA, CAITLYN Griffiths Primary Care Unavailabl e YURI, MOHAMMED Referring Unavailable KYARA, CAITLYN Griffiths Primary Care UnavailDORCAS Toure Attending Unavailable DORCAS DEGROOT Attending Unavailable DORCAS DEGROOT Attending Unavailable Allergies Allergy Classification Reported Allergen(s) Allergy Type Date of Onset Reaction(s) Facility (2 sources) Acetaminophen / HYDROcodone; Translations: [HYDROCODONE-ACETA MINOPHEN] Drug Allergy 10-09-2019 [place], [place] (9 sources) Acetaminophen / HYDROcodone; Translations: [Vicodin] Drug Allergy 09-10-2014 [facility] Repository Medications Current Medications Medication Drug [...] days Active take 1 capsule by mo [facility] every twenty-four hours Vraylar 4.5 MG 1 [...] Start: 11-20-2018 take 1 capsule by mo [facility] once daily FLUoxetine HCl (PROZAC) 40 mg [...] f41.1 Oct, Active take 1 tablet by anu th every twenty-four hours Ativan 0.5 MG 1 [...] on above: take 1 capsule by mo [facility] once daily as directed perphenazine 2 mg [...] qhs Active take 1 tablet by anu twice daily primidone (MYSOLINE) 250 MG tablet [...] Comment on above: Take 1 tablet by aun th as needed. May repeat in 2 [...] Test Name Value Interpretation Reference Range Facil brooke COMPREHENSIVE METABOLIC PANE Mika 05-19-2024 Albumin [Mass/Vol] 4.6 g/dL Normal 3.2-5.3 [facility] Comment on above: Performed By: #### [place], 02102-3, THYR, CBCA, 55641-5 #### [facility] ([id number]) [address], [address] [place] [address] ALP [Catalytic activity/Vol] 78 U/L Normal 39-130 [facility] Comment on above: Performed By: #### C EVIN, 07595-6, THYR, CBCA, 75810-0 #### [facility] ([id number]) [address], [address] [place] [address] ALT [Catalytic activity/Vol] 85 U/L High 0-31 [facility] Comment on above: Performed By: #### C EVIN, 84195-6, THYR, CBCA, 80820-5 #### [facility] ([id number]) [address], [address] [place] [address] Anion gap [Moles/Vol] 15 mmol/L Normal 5-15 [facility] Comment on above: Performed By: #### C MP, 32302-4, THYR, CBCA, 36902-1 #### [facility] ([id number]) [address], [address] [place] [address] AST [Catalytic activity/Vol] 54 U/L High 0-41 [facility] Comment on above: Performed By: #### C EVIN, 22662-8, THYR, CBCA, 57925-2 #### [facility] ([id number]) [address], [address] [place] [address] Bilirubin [Mass/Vol] 0.6 mg/dL Normal 0.3-1.2 [facility] Comment on above: Performed By: #### C EVIN, 66567-9, THYR, CBCA, 48842-6 #### [facility] ([id number]) [address] [address] [place] [address] Calcium [Mass/Vol] 9.6 mg/dL Normal 8.5-10.5 [facility] Comment on above: Performed By: #### C EVIN, 14730-5, THYR, CBCA, 10951-3 #### [facility] ([id number]) [address], [facility] [address] [place] [address] Chloride [Moles/Vol] 102 mmol/L Normal 98-109 [facility] Comment on above: Performed By: #### Mariam CLEARY, 26002-5, THYR, CBCA, 56167-3 #### [facility] ([id number]) [address] [address] [place] [address] CO2 [Moles/Vol] 19 mmol/L Low 22-32 [facility] Comment on above: Performed By: #### Mariam CLEARY, 45252-5, THYR, CBCA, 91889-6 #### [facility] ([id number]) [address] [address] [place] [address] Creatinine [Mass/Vol] 0.89 mg/dL Normal 0.40-1.00 [facility] Comment on above: Result Comment: METH OD TRACEABLE TO IDMS STANDARD Performed By: #### C EVIN, 27888-8, THYR, CBCA, 65392-9 #### [facility] ([id number]) [address] [address] [place] [address] GFR/1.73 sq M.predicted among non-blacks MDRD (S/P/Bld) [Vol rate/Area] 86 mL/min/{1.73_m2} Normal >59 [facility] Comment on above: Result Comment: Reported eGFR is based on the CKD-EPI 2020 equation that does not use a race coefficient. Performed By: #### C EVIN, 86302-8, THYR, CBCA, 62365-3 #### [facility] ([id number]) [address], [address] [place] [address] Glucose [Mass/Vol] 95 mg/dL Normal 65-99 [facility] Comment on above: Performed By: #### C EVIN, 50317-6, THYR, CBCA, 37408-2 #### [facility] ([id number]) [address], [address] [place] [address] Potassium [Moles/Vol] 4.0 mmol/L Normal 3.5-5.0 [facility] Comment on above: Performed By: #### C EVIN, 42182-3, THYR, CBCA, 97181-3 #### [facility] ([id number]) [address], [address] [place] [address] Protein [Mass/Vol] 7.0 g/dL Normal 6.0-8.0 [facility] Comment on above: Performed By: #### C EVIN, 28385-7, THYR, CBCA, 68504-5 #### [facility] ([id number]) [address], [address] [place] [address] Sodium [Moles/Vol] 136 mmol/L Normal 134-146 [facility] Comment on above: Performed By: #### C EVIN, 74176-0, THYR, CBCA, 80255-5 #### [facility] ([id number]) [address], [address] [place] [address] Urea nitrogen [Mass/Vol] 10 mg/dL Normal 5-23 [facility] Comment on above: Performed By: #### C EVIN, 95754-2, THYR, CBCA, 86466-3 #### [facility] ([id number]) [address], [address] [place] [address] DIRECT LDLon 05-19-2024 Cholesterol in LDL [Mass/Vol] 181 mg/dL High <130 [facility] Comment on above: Result Comment: LDL <100 mg/dL - Desirable LDL 130-159 mg/dL - Borderline High Risk LDL >160 mg/dL - High Risk Performed By: #### Mariam CLEARY, 18934-9, THYR, CBCA, 64627-0 #### [facility] ([id number]) [address], [address] [place] [address] LIVER PANELon 05-19-2024 Bilirubin.direct [Mass/Vol] 0.1 mg/dL Normal 0.0-0.4 [facility] Comment on above: Performed By: #### Mariam CLEARY, 78356-7, THYR, CBCA, 59497-6 #### [facility] ([id number]) [address], [address] [place] [address] Lipid 1996 panelon Cholesterol [Mass/Vol] 276 mg/dL High 150-200 [facility] Comment on above: Performed By: #### Mariam CLEARY, 20943-6, THYR, CBCA, 24898-0 #### [facility] ([id number]) [address], [address] [place] [address] Cholesterol in HDL [Mass/Vol] 42 mg/dL Normal >39 [facility] Comment on above: Result Comment: HDL <40 mg/dL - High Risk HDL > or = 40mg/dL- Desirable HDL >60 mg/dL - Negative Risk Performed By: #Cherise## C EVIN, 20094-5, THYR, CBCA, 59308-4 #### [facility] ([id number]) [address], [address] [place] [address] Cholesterol in VLDL [Mass/Vol] 98 mg/dL High 0-30 [facility] Comment on above: Performed By: #### C EVIN, 12275-5, THYR, CBCA, 05211-2 #### [facility] ([id number]) [address], [address] [place] [address] CHOLESTEROL:HDL 6.6 High 1.0-5.0 [facility] Comment on above: Performed By: #### C EVIN, 42562-5, THYR, CBCA, 75444-8 #### [facility] ([id number]) [address], [address] [place] [address] LDL (CALC) RESULT NOT REPORTED DUE TO HIGH TRIGLYCERIDE Normal <130 [facility] Comment on above: Performed By: #### C EVIN, 29999-0, THYR, CBCA, 06215-0 #### [facility] ([id number]) [address], [address] [place] [address] Triglyceride [Mass/Vol] 488 mg/dL High 27-150 [facility] Comment on above: Performed By: #### C EVIN, 41954-7, THYR, CBCA, 66670-7 #### [facility] ([id number]) [address], [address] [place] [address] MR LUMBAR SPINE WO CONTon MR LUMBAR [...] Bruce DO on 03/26/2024 1:45 PM Normal [facility] CBC AND AUTO DIFFon 03-23-20 24 ABSOLUTE BASOPHIL 0.0 X10E9/L Normal 0.0-0.2 [facility] Comment on above: Performed By: #### C MP, 89268-8, THYR, CBCA, 95922-3 #### [facility] ([id number]) [address], [address] [place] [address] ABSOLUTE NEUTROPHIL 4.7 X10E9/L Normal 1.5-6.6 [facility] Comment on above: Performed By: #### C MP, 27354-7, THYR, CBCA, 55480-0 #### [facility] ([id number]) [address], [address] [place] [address] Basophils/100 WBC (Bld) 0.3 % Normal [facility] Comment on above: Performed By: #### C MP, 47834-2, THYR, CBCA, 36048-3 #### [facility] ([id number]) [address] [address] [place] [address] Eosinophils (Bld) [#/Vol] 0.0 10*3/uL Normal 0.0-0.4 [facility] Comment on above: Performed By: #### C EVIN, 67742-0, THYR, CBCA, 42255-1 #### [facility] ([id number]) [address] [address] [place] [address] Eosinophils/100 WBC (Bld) 0.4 % Normal [facility] Comment on above: Performed By: #### Mariam CLEARY, 92063-3, THYR, CBCA, 15920-9 #### [facility] ([id number]) [address] [address] [place] [address] Erythrocyte distribution width (RBC) [Ratio] 13.5 % Normal 11.5-15.0 [facility] Comment on above: Performed By: #### C EVIN, 41991-7, THYR, CBCA, 18711-7 #### [facility] ([id number]) [address] [address] [place] [address] Hematocrit (Bld) [Volume fraction] 44.6 % Normal 35-47 [facility] Comment on above: Performed By: #### C EVIN, 01837-4, THYR, CBCA, 30243-4 #### [facility] ([id number]) [address] [address] [place] [address] Hemoglobin (Bld) [Mass/Vol] 15.6 g/dL High 11.7-15.5 [facility] Comment on above: Performed By: #### C EVIN, 57180-4, THYR, CBCA, 22187-9 #### [facility] ([id number]) [address] [address] [place] [address] Lymphocytes (Bld) [#/Vol] 0.5 10*3/uL Low 1.0-3.5 [facility] Comment on above: Performed By: #### C EVIN, 95900-0, THYR, CBCA, 13090-0 #### [facility] ([id number]) [address] [address] [place] [address] Lymphocytes/100 WBC (Bld) 8.7 % Normal [facility] Comment on above: Performed By: #### C EVIN, 97019-4, THYR, CBCA, 37164-2 #### [facility] ([id number]) [address], [facility] [address] [place] [address] MCH (RBC) [Entitic mass] 32.5 pg Normal 27-34 [facility] Comment on above: Performed By: #### C EVIN, 33402-5, THYR, CBCA, 67547-4 #### [facility] ([id number]) [address] [address] [place] [address] MCHC (RBC) [Mass/Vol] 34.9 g/dL Normal 32-36 [facility] Comment on above: Performed By: #### C EVIN, 30480-5, THYR, CBCA, 01179-1 #### [facility] ([id number]) [address] [address] [place] [address] MCV (RBC) [Entitic vol] 93 fL Normal 80-100 [facility] Comment on above: Performed By: #### C EVIN, 36257-3, THYR, CBCA, 06731-6 #### [facility] ([id number]) [address] [address] [place] [address] Monocytes (Bld) [#/Vol] 0.0 10*3/uL Normal 0-0.9 [facility] Comment on above: Performed By: #### C EVIN, 72592-8, THYR, CBCA, 23611-5 #### [facility] ([id number]) [address], [address] [place] [address] Monocytes/100 WBC (Bld) 0.6 % Normal [facility] Comment on above: Performed By: #### C MP, 70059-7, THYR, CBCA, 79342-8 #### [facility] ([id number]) [address], [address] [place] [address] Neutrophils/100 WBC (Bld) 90.0 % Normal [facility] Comment on above: Performed By: #### C EVIN, 93284-4, THYR, CBCA, 67260-7 #### [facility] ([id number]) [address], [address] [place] [address] Platelet mean volume (Bld) [Entitic vol] 7.2 fL Normal 7-12 [facility] Comment on above: Performed By: #### C EVIN, 94014-9, THYR, CBCA, 94838-7 #### [facility] ([id number]) [address] [address] [place] [address] Platelets (Bld) [#/Vol] 286 10*3/uL Normal 150-450 [facility] Comment on above: Performed By: #### C EVIN, 92993-5, THYR, CBCA, 71780-0 #### [facility] ([id number]) [address], [address] [place] [address] RBC COUNT 4.80 X10E12/L Normal 3.80-5.20 [facility] Comment on above: Performed By: #### C EVIN, 12046-7, THYR, CBCA, 87514-3 #### [facility] ([id number]) [address] [address] [place] [address] WBC (Bld) [#/Vol] 5.3 10*3/uL Normal 4.0-11.0 [facility] Comment on above: Performed By: #### C MP, 62621-9, THYR, CBCA, 12408-6 #### [facility] ([id number]) [address], [address] [place] [address] COMPREHENSIVE METABOLIC PANE Mika 03-23-2024 Albumin [Mass/Vol] 4.2 g/dL Normal 3.2-5.3 [facility] Comment on above: Performed By: #### C MP, 61211-6, THYR, CBCA, 97541-1 #### [facility] ([id number]) [address], [address] [place] [address] ALP [Catalytic activity/Vol] 115 U/L Normal 39-130 [facility] Comment on above: Performed By: #### C EVIN, 85774-0, THYR, CBCA, 54809-0 #### [facility] ([id number]) [address], [address] [place] [address] ALT [Catalytic activity/Vol] 81 U/L High 0-31 [facility] Comment on above: Performed By: #### C EVIN, 32462-0, THYR, CBCA, 50458-0 #### [facility] ([id number]) [address], [address] [place] [address] Anion gap [Moles/Vol] 14 mmol/L Normal 5-15 [facility] Comment on above: Performed By: #### C MP, 76107-4, THYR, CBCA, 70689-4 #### [facility] ([id number]) [address], [address] [place] [address] AST [Catalytic activity/Vol] 48 U/L High 0-41 [facility] Comment on above: Performed By: #### C MP, 72210-3, THYR, CBCA, 52456-3 #### [facility] ([id number]) [address], [address] [place] [address] Bilirubin [Mass/Vol] 1.3 mg/dL High 0.3-1.2 [facility] Comment on above: Performed By: #### C EVIN, 16873-2, THYR, CBCA, 05705-8 #### [facility] ([id number]) [address], [facility] [address] [place] [address] Calcium [Mass/Vol] 9.3 mg/dL Normal 8.5-10.5 [facility] Comment on above: Performed By: #### C EVIN, 72175-5, THYR, CBCA, 76630-9 #### [facility] ([id number]) [address] [address] [place] [address] Chloride [Moles/Vol] 97 mmol/L Low 98-109 [facility] Comment on above: Performed By: #### Mariam CLEARY, 42254-5, THYR, CBCA, 72261-3 #### [facility] ([id number]) [address] [address] [place] [address] CO2 [Moles/Vol] 22 mmol/L Normal 22-32 [facility] Comment on above: Performed By: #### Mariam CLEARY, 88800-5, THYR, CBCA, 00682-1 #### [facility] ([id number]) [address] [address] [place] [address] Creatinine [Mass/Vol] 0.91 mg/dL Normal 0.40-1.00 [facility] Comment on above: Result Comment: METH OD TRACEABLE TO IDMS STANDARD Performed By: #### C EVIN, 10973-5, THYR, CBCA, 64011-3 #### [facility] ([id number]) [address], [address] [place] [address] GFR/1.73 sq M.predicted among non-blacks MDRD (S/P/Bld) [Vol rate/Area] 83 mL/min/{1.73_m2} Normal >59 [facility] Comment on above: Result Comment: Reported eGFR is based on the CKD-EPI 2020 equation that does not use a race coefficient. Performed By: #### C EVIN, 18844-2, THYR, CBCA, 58263-5 #### [facility] ([id number]) [address], [address] [place] [address] Glucose [Mass/Vol] 110 mg/dL High 65-99 [facility] Comment on above: Performed By: #### C EVIN, 57936-5, THYR, CBCA, 83032-6 #### [facility] ([id number]) [address], [address] [place] [address] Potassium [Moles/Vol] 3.8 mmol/L Normal 3.5-5.0 [facility] Comment on above: Performed By: #### C EVIN, 44957-4, THYR, CBCA, 38877-7 #### [facility] ([id number]) [address], [address] [place] [address] Protein [Mass/Vol] 8.0 g/dL Normal 6.0-8.0 [facility] Comment on above: Performed By: #### C EVIN, 52769-1, THYR, CBCA, 28142-1 #### [facility] ([id number]) [address], [address] [place] [address] Sodium [Moles/Vol] 133 mmol/L Low 134-146 [facility] Comment on above: Performed By: #### C EVIN, 65679-8, THYR, CBCA, 48297-5 #### [facility] ([id number]) [address], [address] [place] [address] Urea nitrogen [Mass/Vol] 13 mg/dL Normal 5-23 [facility] Comment on above: Performed By: #### C EVIN, 55059-4, THYR, CBCA, 87860-0 #### [facility] ([id number]) [address], [address] [place] [address] CT CTA CHESTon 03-23-2024 CT CTA CHEST [...] Chaparro MD on 03/23/2024 10:52 PM Normal [facility] Fibrin D-dimer DDU (PPP) [Ma ss/Vol]on 03-23-2024 D DIMER 336 ng/mL DDU High <255 [facility] Comment on above: Result Comment: Results >=255ng/mL [...] D-Dimer level. Performed By: #### C EVIN, 55843-2, THYR, CBCA, 55763-7 #### [facility] ([id number]) [address], [address] [place] [address] HCG ( test) Ql (U)o n 03-23-2024 Beta HCG ( test) Ql (U) Negative Normal NEG [facility] Comment on above: Performed By: #### C EVIN, 81710-3, THYR, CBCA, 83772-9 #### [facility] ([id number]) [address] [address] [place] [address] LIPASEon 03-23-2024 Lipase [Catalytic activity/Vol] 30 U/L Normal 17-40 [facility] Comment on above: Performed By: #### C EVIN, 49563-3, THYR, CBCA, 72439-4 #### [facility] ([id number]) [address] [address] [place] [address] THYROID PROFILEon 03-23-2024 Free T4 [Mass/Vol] 0.74 ng/dL Normal 0.61-1.60 [facility] Comment on above: Performed By: #### C EVIN, 93661-5, THYR, CBCA, 34933-2 #### [facility] ([id number]) [address] [place] [address] TSH 1.64 uIU/mL Normal 0.49-4.67 [facility] Comment on above: Performed By: #### C EVIN, 95557-2, THYR, CBCA, 59378-8 #### [facility] ([id number]) [address] [facility] [address] [facility] [address] [place] [address] Troponin I.cardiac High sens itivity method [Mass/Vol]on 03-23-2024 1 HOUR TROP I, HIGH SENSITIVITY 3 ng/L Normal <16 [facility] Comment on above: Performed By: #### C EVIN, 48578-0, THYR, CBCA, 55733-4 #### [facility] ([id number]) [address], [address] [place] [address] TROPONIN I, HIGH SENSITIVITY 2 ng/L Normal <16 [facility] Comment on above: Performed By: #### C EVIN, 01270-9, THYR, CBCA, 65342-2 #### [facility] ([id number]) [address], [address] [place] [address] URINE CULTUREon 03-23-2024 Bacteria identified Cx Nom [...] F TRIMETH/SULFAMETHOXAZO LE S <=1/19 F Susceptible [facility] Comment on above: Performed By: #### C EVIN, 18864-4, THYR, CBCA, 30353-8 #### [facility] ([id number]) [address], [address] [place] [address] URN MACROSCOPIC NURon 2023 BILIRUBIN LUL Negative Normal NEG [facility] Comment on above: Performed By: #### C EVIN, 10759-0, THYR, CBCA, 92864-7 #### [facility] ([id number]) [address], [address] [place] [address] BLOOD/HGB LUL Small Abnormal NEG [facility] Comment on above: Performed By: #### C EVIN, 87641-9, THYR, CBCA, 06807-5 #### [facility] ([id number]) [address], [address] [place] [address] GLUCOSE LUL Negative Normal NEG [facility] Comment on above: Performed By: #### C MP, 73794-3, THYR, CBCA, 88943-7 #### [facility] ([id number]) [address], [address] [place] [address] KETONES LLU Negative Normal NEG [facility] Comment on above: Performed By: #### C MP, 72122-0, THYR, CBCA, 05968-4 #### [facility] ([id number]) [address], [address] [place] [address] LEUKOCYTE ESTERASE LUL Small Abnormal NEG [facility] Comment on above: Performed By: #### C MP, 04232-5, THYR, CBCA, 24212-4 #### [facility] ([id number]) [address], [address] [place] [address] NITRITE LUL Negative Normal NEG [facility] Comment on above: Performed By: #### C MP, 95966-0, THYR, CBCA, 66260-3 #### [facility] ([id number]) [address], [address] [place] [address] PH LUL 5.5 Normal 5.0-8.5 [facility] Comment on above: Performed By: #### C MP, 89119-8, THYR, CBCA, 86669-1 #### [facility] ([id number]) [address], [address] [place] [address] PROTEIN LUL Negative Normal NEG [facility] Comment on above: Performed By: #### C MP, 22320-5, THYR, CBCA, 23067-6 #### [facility] ([id number]) [address], [address] [place] [address] SPECIFIC GRAVITY LUL 1.010 Normal 1.003-1.035 [facility] Comment on above: Performed By: #### C MP, 61135-1, THYR, CBCA, 36623-1 #### [facility] ([id number]) [address], [address] [place] [address] UROBILINOGEN LUL 0.2 eu/dL Normal <1.1 [facility] Comment on above: Performed By: #### C MP, 13484-8, THYR, CBCA, 85262-5 #### [facility] ([id number]) [address], [address] [place] [address] CBC AND AUTO DIFFon 02-29-20 24 ABSOLUTE BASOPHIL 0.0 X10E9/L Normal 0.0-0.2 [facility] Comment on above: Performed By: #### C BCA, HA1C, THYR, 57365-7 #### [facility] ([id number]) [address], [address] [place] [address] ABSOLUTE NEUTROPHIL 2.8 X10E9/L Normal 1.5-6.6 [facility] Comment on above: Performed By: #### C BCA, HA1C, THYR, 65931-0 #### [facility] ([id number]) [address], [address] [place] [address] Basophils/100 WBC (Bld) 0.7 % Normal [facility] Comment on above: Performed By: #### C BCA, HA1C, THYR, 06818-7 #### [facility] ([id number]) [address], [address] [place] [address] Eosinophils (Bld) [#/Vol] 0.1 10*3/uL Normal 0.0-0.4 [facility] Comment on above: Performed By: #### C BCA, HA1C, THYR, 87542-4 #### [facility] ([id number]) [address], [address] [place] [address] Eosinophils/100 WBC (Bld) 2.1 % Normal [facility] Comment on above: Performed By: #### C BCA, HA1C, THYR, 14038-2 #### [facility] ([id number]) [address], [address] [place] [address] Erythrocyte distribution width (RBC) [Ratio] 13.7 % Normal 11.5-15.0 [facility] Comment on above: Performed By: #### C BCA, HA1C, THYR, 77382-0 #### [facility] ([id number]) [address], [address] [place] [address] Hematocrit (Bld) [Volume fraction] 45.0 % Normal 35-47 [facility] Comment on above: Performed By: #### C BCA, HA1C, THYR, 01548-4 #### [facility] ([id number]) [address], [address] [place] [address] Hemoglobin (Bld) [Mass/Vol] 15.5 g/dL Normal 11.7-15.5 [facility] Comment on above: Performed By: #### C BCA, HA1C, THYR, 17617-2 #### [facility] ([id number]) [address], [address] [place] [address] Lymphocytes (Bld) [#/Vol] 1.4 10*3/uL Normal 1.0-3.5 [facility] Comment on above: Performed By: #### C BCA, HA1C, THYR, 35467-2 #### [facility] ([id number]) [address], [address] [place] [address] Lymphocytes/100 WBC (Bld) 28.9 % Normal [facility] Comment on above: Performed By: #### C BCA, HA1C, THYR, 41158-1 #### [facility] ([id number]) [address], [address] [place] [address] MCH (RBC) [Entitic mass] 32.0 pg Normal 27-34 [facility] Comment on above: Performed By: #### C BCA, HA1C, THYR, 46073-2 #### [facility] ([id number]) [address], [address] [place] [address] MCHC (RBC) [Mass/Vol] 34.3 g/dL Normal 32-36 [facility] Comment on above: Performed By: #### C BCA, HA1C, THYR, 84720-2 #### [facility] ([id number]) [address], [address] [place] [address] MCV (RBC) [Entitic vol] 93 fL Normal 80-100 [facility] Comment on above: Performed By: #### C BCA, HA1C, THYR, 51506-8 #### [facility] ([id number]) [address], [address] [place] [address] Monocytes (Bld) [#/Vol] 0.4 10*3/uL Normal 0-0.9 [facility] Comment on above: Performed By: #### C BCA, HA1C, THYR, 41706-9 #### [facility] ([id number]) [address], [address] [place] [address] Monocytes/100 WBC (Bld) 8.4 % Normal [facility] Comment on above: Performed By: #### C BCA, HA1C, THYR, 96569-1 #### [facility] ([id number]) [address], [address] [place] [address] Neutrophils/100 WBC (Bld) 59.9 % Normal [facility] Comment on above: Performed By: #### C BCA, HA1C, THYR, 07339-5 #### [facility] ([id number]) [address], [address] [place] [address] Platelet mean volume (Bld) [Entitic vol] 8.5 fL Normal 7-12 [facility] Comment on above: Performed By: #### C BCA, HA1C, THYR, 50402-3 #### [facility] ([id number]) [address], [address] [place] [address] Platelets (Bld) [#/Vol] 272 10*3/uL Normal 150-450 [facility] Comment on above: Performed By: #### C BCA, HA1C, THYR, 57778-1 #### [facility] ([id number]) [address], [address] [place] [address] RBC COUNT 4.83 X10E12/L Normal 3.80-5.20 [facility] Comment on above: Performed By: #### Mariam BCA, HA1C, THYR, 47559-1 #### [facility] ([id number]) [address], [address] [place] [address] WBC (Bld) [#/Vol] 4.7 10*3/uL Normal 4.0-11.0 [facility] Comment on above: Performed By: #### Mariam BCA, HA1C, THYR, 79034-8 #### [facility] ([id number]) [address], [address] [place] [address] HGB A1C (GLYCO-HGB)on 2023 Glucose [Mass/Vol] 97 mg/dL Normal [facility] Comment on above: Performed By: #### C BCA, HA1C, THYR, 16077-6 #### [facility] ([id number]) [address], [address] [place] [address] HbA1c (Bld) [Mass fraction] 5.0 % Normal 4.4-5.6 [facility] Comment on above: Result Comment: NOTE ADA Guidelines Result HgbA1c Normal : less than 5.7 % Prediabetes : 5.7 % to 6.4 % Diabetes : > 6.4 % Use with caution in patients with abnormal hemoglobin variants as the half-life of red blood cells and in vivo glycation rates are affected. Performed By: #### C BCA, HA1C, THYR, 99364-6 #### [facility] ([id number]) [address] [facility] [facility] [address] [place] [address] THYROID PROFILEon 02-29-2024 Free T4 [Mass/Vol] 0.67 ng/dL Normal 0.61-1.60 [facility] Comment on above: Performed By: #### C BCA, HA1C, THYR, 68223-4 #### [facility] ([id number]) [address] [facility] [address] [place] [address] TSH 1.84 uIU/mL Normal 0.49-4.67 [facility] Comment on above: Performed By: #### C BCA, HA1C, THYR, 96726-2 #### [facility] ([id number]) [address] [facility] [facility] [address] [place] [address] Vitamin D+Metabolites [Mass/ Vol]on 02-29-2024 VITAMIN D 25 HYD TOT 32.3 ng/mL Normal 30-100 [facility] Comment on above: Result Comment: Vitamin D status 25 [place] Vitamin D Deficiency <20 ng/mL Insufficiency 20-29 ng/mL Sufficiency 30-100 ng/mL Toxicity >100 ng/mL NOTE: A pediatric reference range has not been established by the jaw skinner of this kit. The [place] [employer] recommends a Vitamin D level of = or >20ng/mL in infants and children. Performed By: #### C MP, 73511-6, THYR, CBCA, 55833-0 #### [facility] ([id number]) [address], [address] [place] [address] XR LUMBAR SPINE AP, LATERAL, FLEXION AND [...] Chun MD on 12/03/2023 10:04 AM Normal [facility] XR SPINE CERVICAL 3 VWS [...] Jay MD on 12/02/2023 7:06 AM Normal [facility] CBC AND AUTO DIFFon 11-30-19 ABSOLUTE BASOPHIL 0.0 X10E9/L Normal 0.0-0.2 [facility] Comment on above: Performed By: #### C MP, 24431-0, THYR, CBCA, 84283-6 #### [facility] ([id number]) [address] [address] [place] [address] ABSOLUTE NEUTROPHIL 2.5 X10E9/L Normal 1.5-6.6 [facility] Comment on above: Performed By: #### C EVIN, 64608-0, THYR, CBCA, 40548-7 #### [facility] ([id number]) [address], [address] [place] [address] Basophils/100 WBC (Bld) 0.5 % Normal [facility] Comment on above: Performed By: #### C EVIN, 27642-7, THYR, CBCA, 88648-2 #### [facility] ([id number]) [address], [facility] [address] [place] [address] Eosinophils (Bld) [#/Vol] 0.0 10*3/uL Normal 0.0-0.4 [facility] Comment on above: Performed By: #### Mariam CLEARY, 17558-2, THYR, CBCA, 98182-5 #### [facility] ([id number]) [address], [address] [place] [address] Eosinophils/100 WBC (Bld) 1.2 % Normal [facility] Comment on above: Performed By: #### C EVIN, 05691-9, THYR, CBCA, 42181-6 #### [facility] ([id number]) [address], [address] [place] [address] Erythrocyte distribution width (RBC) [Ratio] 13.7 % Normal 11.5-15.0 [facility] Comment on above: Performed By: #### C EVIN, 71372-4, THYR, CBCA, 77676-0 #### [facility] ([id number]) [address], [address] [place] [address] Hematocrit (Bld) [Volume fraction] 43.0 % Normal 35-47 [facility] Comment on above: Performed By: #### C EVIN, 69472-6, THYR, CBCA, 44308-6 #### [facility] ([id number]) [address] [address] [place] [address] Hemoglobin (Bld) [Mass/Vol] 15.0 g/dL Normal 11.7-15.5 [facility] Comment on above: Performed By: #### C EVIN, 04137-8, THYR, CBCA, 29143-5 #### [facility] ([id number]) [address], [facility] [address] [place] [address] Lymphocytes (Bld) [#/Vol] 0.9 10*3/uL Low 1.0-3.5 [facility] Comment on above: Performed By: #### C EVIN, 69040-5, THYR, CBCA, 41498-7 #### [facility] ([id number]) [address] [address] [place] [address] Lymphocytes/100 WBC (Bld) 23.6 % Normal [facility] Comment on above: Performed By: #### Mariam CLEARY, 26975-6, THYR, CBCA, 26558-4 #### [facility] ([id number]) [address] [address] [place] [address] MCH (RBC) [Entitic mass] 32.2 pg Normal 27-34 [facility] Comment on above: Performed By: #### Mariam CLEARY, 12185-9, THYR, CBCA, 41616-6 #### [facility] ([id number]) [address] [address] [place] [address] MCHC (RBC) [Mass/Vol] 35.0 g/dL Normal 32-36 [facility] Comment on above: Performed By: #### Mariam CLEARY, 87811-4, THYR, CBCA, 45574-6 #### [facility] ([id number]) [address] [address] [place] [address] MCV (RBC) [Entitic vol] 92 fL Normal 80-100 [facility] Comment on above: Performed By: #### C MP, 49178-8, THYR, CBCA, 74845-7 #### [facility] ([id number]) [address] [place] [address] Monocytes (Bld) [#/Vol] 0.3 10*3/uL Normal 0-0.9 [facility] Comment on above: Performed By: #### C MP, 04414-2, THYR, CBCA, 11081-9 #### [facility] ([id number]) [address], [address] [place] [address] Monocytes/100 WBC (Bld) 7.0 % Normal [facility] Comment on above: Performed By: #### C EVIN, 65069-7, THYR, CBCA, 65623-3 #### [facility] ([id number]) [address] [place] [address] Neutrophils/100 WBC (Bld) 67.7 % Normal [facility] Comment on above: Performed By: #### C EVIN, 30457-7, THYR, CBCA, 21549-0 #### [facility] ([id number]) [address], [address] [place] [address] Platelet mean volume (Bld) [Entitic vol] 8.7 fL Normal 7-12 [facility] Comment on above: Performed By: #### C MP, 36539-9, THYR, CBCA, 54915-5 #### [facility] ([id number]) [address], [address] [place] [address] Platelets (Bld) [#/Vol] 186 10*3/uL Normal 150-450 [facility] Comment on above: Performed By: #### C MP, 49062-2, THYR, CBCA, 56360-6 #### [facility] ([id number]) [address] [place] [address] RBC COUNT 4.67 X10E12/L Normal 3.80-5.20 [facility] Comment on above: Performed By: #### C EVIN, 21556-6, THYR, CBCA, 32079-5 #### [facility] ([id number]) [address], [address] [place] [address] WBC (Bld) [#/Vol] 3.7 10*3/uL Low 4.0-11.0 [facility] Comment on above: Performed By: #### C EVIN, 99475-0, THYR, CBCA, 22680-9 #### [facility] ([id number]) [address] [place] [address] COMPREHENSIVE METABOLIC PANE Mika 11-30-2023 Albumin [Mass/Vol] 4.4 g/dL Normal 3.2-5.3 [facility] Comment on above: Performed By: #### C EVIN, 27478-3, THYR, CBCA, 04713-2 #### [facility] ([id number]) [address] [place] [address] ALP [Catalytic activity/Vol] 65 U/L Normal 39-130 [facility] Comment on above: Performed By: #### C EVIN, 24387-6, THYR, CBCA, 68864-7 #### [facility] ([id number]) [address], [address] [place] [address] ALT [Catalytic activity/Vol] 59 U/L High 0-31 [facility] Comment on above: Performed By: #### C EVIN, 04740-4, THYR, CBCA, 60581-1 #### [facility] ([id number]) [address] [place] [address] Anion gap [Moles/Vol] 6 mmol/L Normal 5-15 [facility] Comment on above: Performed By: #### C MP, 22889-9, THYR, CBCA, 08056-0 #### [facility] ([id number]) [address], [address] [place] [address] AST [Catalytic activity/Vol] 31 U/L Normal 0-41 [facility] Comment on above: Performed By: #### C EVIN, 20486-5, THYR, CBCA, 86998-6 #### [facility] ([id number]) [address] [place] [address] Bilirubin [Mass/Vol] 0.8 mg/dL Normal 0.3-1.2 [facility] Comment on above: Performed By: #### C EVIN, 19462-0, THYR, CBCA, 01541-8 #### [facility] ([id number]) [address] [place] [address] Calcium [Mass/Vol] 9.1 mg/dL Normal 8.5-10.5 [facility] Comment on above: Performed By: #### C EVIN, 24246-7, THYR, CBCA, 94440-0 #### [facility] ([id number]) [address] [place] [address] Chloride [Moles/Vol] 103 mmol/L Normal 98-109 [facility] Comment on above: Performed By: #### C EVIN, 75993-1, THYR, CBCA, 67962-2 #### [facility] ([id number]) [address] [place] [address] CO2 [Moles/Vol] 28 mmol/L Normal 22-32 [facility] Comment on above: Performed By: #### C EVIN, 81983-3, THYR, CBCA, 22808-1 #### [facility] ([id number]) [address] [place] [address] Creatinine [Mass/Vol] 0.86 mg/dL Normal 0.40-1.00 [facility] Comment on above: Result Comment: METH OD TRACEABLE TO IDMS STANDARD Performed By: #### C EVIN, 99078-1, THYR, CBCA, 75394-6 #### [facility] ([id number]) [address] [place] [address] GFR/1.73 sq M.predicted among non-blacks MDRD (S/P/Bld) [Vol rate/Area] 89 mL/min/{1.73_m2} Normal >59 [facility] Comment on above: Result Comment: Reported eGFR is based on the CKD-EPI 2020 equation that does not use a race coefficient. Performed By: #### C EVIN, 30179-1, THYR, CBCA, 10205-5 #### [facility] ([id number]) [address] [place] [address] Glucose [Mass/Vol] 97 mg/dL Normal 65-99 [facility] Comment on above: Performed By: #### C EVIN, 23786-6, THYR, CBCA, 66817-7 #### [facility] ([id number]) [address] [place] [address] Potassium [Moles/Vol] 3.8 mmol/L Normal 3.5-5.0 [facility] Comment on above: Performed By: #### Mariam CLEARY, 14054-4, THYR, CBCA, 92465-7 #### [facility] ([id number]) [address] [place] [address] Protein [Mass/Vol] 6.6 g/dL Normal 6.0-8.0 [facility] Comment on above: Performed By: #### C EVIN, 13716-2, THYR, CBCA, 79597-0 #### [facility] ([id number]) [address] [place] [address] Sodium [Moles/Vol] 137 mmol/L Normal 134-146 [facility] Comment on above: Performed By: #### Mariam CLEARY, 38332-5, THYR, CBCA, 47497-3 #### [facility] ([id number]) [address] [place] [address] Urea nitrogen [Mass/Vol] 9 mg/dL Normal 5-23 [facility] Comment on above: Performed By: #### Mariam CLEARY, 85876-5, THYR, CBCA, 17312-4 #### [facility] ([id number]) [address] [place] [address] Lipid 1996 panelon 4 Cholesterol [Mass/Vol] 236 mg/dL High 150-200 [facility] Comment on above: Performed By: #### Mariam CLEARY, 13864-0, THYR, CBCA, 47510-5 #### [facility] ([id number]) [address], [address] [place] [address] Cholesterol in HDL [Mass/Vol] 48 mg/dL Normal >39 [facility] Comment on above: Result Comment: HDL <40 mg/dL - High Risk HDL > or = 40mg/dL- Desirable HDL >60 mg/dL - Negative Risk Performed By: #### Mariam CLEARY, 91946-1, THYR, CBCA, 13497-8 #### [facility] ([id number]) [address], [address] [place] [address] Cholesterol in LDL [Mass/Vol] 124 mg/dL Normal <130 [facility] Comment on above: Result Comment: LDL <100 mg/dL - Desirable LDL >160 mg/dL - High Risk Performed By: #### [place], [address]-1, THYR, CBCA, 50446-7 #### [facility] ([id number]) [address], [address] [place] [address] Cholesterol in VLDL [Mass/Vol] 64 mg/dL High 0-30 [facility] Comment on above: Performed By: #### [place], [address]-7, THYR, CBCA, 30483-5 #### [facility] ([id number]) [address], [address] [place] [address] CHOLESTEROL:HDL 4.9 Normal 1.0-5.0 [facility] Comment on above: Performed By: #### C [place], 94848-4, THYR, CBCA, 17639-6 #### [facility] ([id number]) [address] [place] [address] Triglyceride [Mass/Vol] 318 mg/dL High 27-150 [facility] Comment on above: Performed By: #### C EVIN, 98818-1, THYR, CBCA, 04542-2 #### [facility] ([id number]) [address] [facility] [address] [place] [address] THYROID PROFILEon 11-30-2023 Free T4 [Mass/Vol] 0.62 ng/dL Normal 0.61-1.60 [facility] Comment on above: Performed By: #### C MP, 93922-7, THYR, CBCA, 58566-1 #### [facility] ([id number]) [address] [facility] [address] [place] [address] TSH 0.97 uIU/mL Normal 0.49-4.67 [facility] Comment on above: Performed By: #### C MP, 06912-3, THYR, CBCA, 76400-5 #### [facility] ([id number]) [address] [place] [address] Vitamin D+Metabolites [Mass/ Vol]on 11-30-2023 VITAMIN D 25 HYD TOT 25.5 ng/mL Low 30-100 [facility] Comment on above: Result Comment: Vitamin D status 25 [place] Vitamin D Deficiency <20 ng/mL Insufficiency 20-29 ng/mL Sufficiency 30-100 ng/mL Toxicity >100 ng/mL NOTE: A pediatric reference range has not been established by the jaw skinner of this kit. The [place] [employer] recommends a Vitamin D level of = or >20ng/mL in infants and children. Performed By: #### C MP, 37835-4, THYR, CBCA, 66544-4 #### [facility] ([id number]) [address] [place] [address] Covid-19 PCR (CVDTBH)on 09-11 SARS-CoV-2 (COVID-19) RNA MEGAN+probe Ql (Unsp spec) Not detected Normal NOT DETECTED [facility] Comment on above: Result Comment: This test is not yet approved or cleared by the [place] FDA. When there are no FDA-approved or cleared tests available, and other criteria are met, FDA can make tests available under an emergency access mechanism called an Emergency Use Authorization (EUA). The EUA for this test is supported by the [place] of Health and Human Service's (HHS's) declaration [...] SARS-CoV-2. Performed By: #### C VDTBH #### [facility] [address], [place] [id number] Dr. Adis Warren Covid-19 [facility]on 09-11 SARS-CoV-2 (COVID-19) RNA MEGAN+probe Ql (Unsp spec) Not detected Normal NOT DETECTED [facility] Comment on above: Result Comment: This test is not yet approved or cleared by the [place] FDA. When there are no FDA-approved or cleared tests available, and other criteria are met, FDA can make tests available under an emergency access mechanism called an Emergency Use Authorization (EUA). The EUA for this test is supported by the [place] of Health and Human Service's (HHS's) declaration [...] consistent with SARS-CoV-2. Performed By: #### C [facility] #### [facility] [address] [place] [address] Dr. Adis Warren OBSOLETEon 07-04-2021 OBSOLETE Refill (ELLIWIYair) MARITA MESSINA ([id number]) 1985 F Date Time Provider Department 07/04/21 [...] Encounter Status:Closed by RAYMOND MEDINA on 07/05/21 [facility] OBSOLETEon 05-27-2021 OBSOLETE Refill (NFWH) NERYMARITA Reyes ([id number]) 1985 F Date Time Provider Department 05/27/21 RAYMOND MEDINA [facility] During your visit today, we recorded the [...] Encounter Status:Closed by RAYMOND MEDINA on 05/30/21 [facility] OBSOLETEon 04-26-2021 OBSOLETE Refill (NFWH) MARITA MESSINA ([id number]) 1985 F Date Time Provider Department 04/26/21 RAYMOND MEDINA [facility] During your visit today, we recorded the [...] Encounter Status:Closed by RAYMOND MEDINA on 04/27/21 [facility] Coding Summary.on 05-31-2019 Coding Summary. CODING DATE: 05/31/2019 [facility] STATUS: Home ([facility]) PAYOR: Medicaid EA DESCRIPTION 0390 LEVEL I PATHOLOGY ADMIT DX: REASON FOR VISIT DX: R87.610 Atypical squamous cells of undetermined significance on cytologic smear of cervix (ASC-US) FINAL DX: PRINCIPAL: N87.9 Dysplasia of cervix uteri, unspecified SECONDARY: R87.810 Cervical high risk human papillomavirus (HPV) DNA test positive [facility] PROC [facility] STAT DESCRIPTION DOCTOR NAME DATE NOTE: The code number assigned matches the documented diagnosis and / or procedure in the patient's chart. However, the narrative phrase printed from the coding software may appear abbreviated, or result in slightly different terminology. Coded By: Prachi Andres Date Saved: 05/31/2019 06:25 am [facility] Gynecology Office/Clinic Not freddie 05-20-2019 Gynecology [...] and next steps Ordered: Colposcopy with biopsy 96548 Pathology Tissue Exam Pathology Tissue Exam Follow-up With When Contact Information She BINGHAM CNP In 1 year [email or web address] Additional Instructions: She BINGHAM CNP Only if needed [email or web address] Additional Instructions: Problem List/Past Medical History Ongoing [...] 2: Father and Grandparent. Hyperlipidemia: Father. [facility] Comment on above: Result Comment: Elec tronically Signed By: She BINGHAM CNP\Date and Time Signed: 05/20/19 14:48 EDT Coding Summary.on 05-06-2019 Coding Summary. CODING DATE: 05/06/2019 FINAL [facility] STATUS: Home (Routine DC) PAYOR: Medicaid EAPG [...] CphT Date Saved: 05/06/2019 09:14 am [facility] PAP [id number] 05-05-2019 Cytology report Cyto stain Doc (Cvx/Vag) Note Abnormal [facility] Comment on above: Result Comment: TEST S RESULT FLAG UNITS REF RANGE LAB Clinician Provided Cytology Information Source.............Cervix Other..............IUD No. of containers..01 ThinPrep Vial DIAGNOSIS: [A] 01 EPITHELIAL CELL ABNORMALITY. ATYPICAL SQUAMOUS CELLS OF UNDETERMINED SIGNIFICANCE (ASC-US). 01 Satisfactory for evaluation. Endocervical and/or squamous metaplastic cells (endocervical component) are present. 01 Maricarmen Stovall, Workplace Relations Adviser (ASCP) 01 Jennifer Lopes MD, Pathologist 01 [...] High,A-Abnormal,AA-Critical Abnormal Performed at: 01 [facility] [address] [place] [address] Soraya Cabrera MD, Performed By: #### 1 [id number], [id number] #### [facility] [address] [place] [address] HPV 16+18+31+33+35+39+4 5+51+52+56+58+59+68 DNA Probe+sig amp Ql (Cvx) Positive Abnormal Negative [facility] Comment on above: Result Comment: This high-risk HPV test detects thirteen high- risk types (16/18/31/33/35/39/45/51/52/56/58/59/68) without differentiation. Performed at: [address] [id number] MD Rick Lira Performed at: =G [address] [id number] MD Rick Lira Performed By: #### 1 [id number], [id number] #### [facility] [address] [place] [address] Physician Jennifer Crabtree 019 Pathologist review Noe (Unsp spec) [Interp] Note [facility] Comment on above: Result Comment: TEST S RESULT FLAG UNITS REF RANGE LAB Physician Read Pap Note 01 Performed FLAG LEGEND: L-Low Normal,H-High Normal,LL-Alert Low,HH-Alert High <-Panic Low,>-Panic High,A-Abnormal,AA-Critical Abnormal Performed at: 01 [facility] [address] [facility] [place] [address] Soraya Cabrera MD, Performed at: [facility] [address] [place], [place] [id number] MD Rick Lira Performed By: #### 1 [id number], [id number] #### [facility] [address] [place] [address] Gynecology Office/Clinic Not freddie 04-29-2019 Gynecology Office/Clinic [...] results Ordered: Office Visit Level 3 Est 34059 PAP [id number] w/HPV HR US Pelvis Non-OB Complete 2. Pelvic pain (R10.2: Pelvic and perineal pain) US ordered, will fax to [place] Ordered: Office Visit Level 3 Est 47393 US Pelvis Non-OB Complete Visit for routine hyperion developer exam (Z01.419: Encounter for gynecological examination (general) [...] Preventive Med 18 to 39 years Est 25842 Follow-up No qualifying data available Problem List/Past [...] 2: Father and Grandparent. Hyperlipidemia: Father. [facility] Comment on above: Result Comment: Elec tronically Signed By: She BINGHAM CNP\Date and Time Signed: 04/29/19 11:36 EDT PAP [id number] 04-29-2019 Gynecological Body Site CERVIX [facility] Comment on above: Performed By: #### 1 [id number], [id number] #### [facility] [address] [place] [address] Other Patient Information IUD Normal [facility] Comment on above: Performed By: #### 1 [id number] #### [facility] [address] [place] [address] Vital Signs Date Time Vital Sign Value Performing Clinician Jessica jacques 11-10-2019 14:27-0500 BMI (Body Mass Index) 35.43 kg/m2 Bradley Simmons [facility] [place], [place] 11-10-2019 14:27-0500 Body Temperature 97.59 [degF] Bradley Simmons [facility] [place], [place] 11-10-2019 14:27-0500 Body weight 90.72 kg Bradley [facility] , [place] 11-10-2019 14:27-0500 BP Diastolic 65 mm[Hg] Bradley [facility] , [place] 11-10-2019 14:27-0500 BP Systolic 102 mm[Hg] Bradley [facility] , [place] 11-10-2019 14:27-0500 Height 160 cm Bradley [facility] , [place] 11-10-2019 14:27-0500 Pulse Oximetry 99 % [facility] , [place] Encounters Encounter Date Encounter Type Care Provider Facility Start: 06-16-2024 End: 06-16-2024 ambulatory DORCAS BRAXTONRolandTIBURCIO Not Available Start: 05-23-2024 End: 05-23-2024 ambulatory DORCAS DEGROOT Not Available Start: 05-19-2024 End: 05-19-2024 ambulatory [facility] Start: 05-19-2024 End: 05-19-2024 ambulatory [facility] Start: 05-14-2024 End: 05-14-2024 ambulatory DORCAS BRAXTONRolandTIBURCIO Not Available Start: 05-13-2024 ambulatory Dorcas Pat quintana PA-C Facility:[facility] Start: 05-05-2024 End: 05-05-2024 ambulatory [facility] Start: 03-24-2024 End: 03-24-2024 [facility] Start: 03-23-2024 End: 03-24-2024 Emergency department patient visit LUIZA ORDOÑEZ [facility] Start: 03-23-2024 End: 03-23-2024 Emergency department patient visit CAITLYN Griffiths [facility] Start: 03-10-2024 End: 04-10-2024 ambulatory [facility] Start: 03-08-2024 End: 03-08-2024 Emergency department patient visit CAITLYN Griffiths [facility] Start: 03-03-2024 End: 03-03-2024 ambulatory Caitlyn Sparrow MD Facility:[facility] Start: 02-29-2024 End: 02-29-2024 ambulatory CAITLYN Griffiths [facility] Start: 02-18-2024 End: 02-18-2024 ambulatory Caitlyn Sparrow MD Facility:[facility] Start: 02-11-2024 End: 03-10-2024 ambulatory [facility] Start: 01-28-2024 End: 01-28-2024 ambulatory Caitlyn Sparrow MD Facility:[facility] Start: 01-23-2024 End: 02-09-2024 ambulatory [facility] Start: 11-30-2023 End: 11-30-2023 ambulatory [facility] Start: 11-30-2023 Encounter for genera l adult medical examination without abnormal findings [facility] Start: 08-09-2023 Refill Raymond Pierre ph, MD Work Phone: Neurology Comment on above: Refill Request Start: 07-02-2023 End: 07-02-2023 ambulatory Caitlyn Sparrow MD Facility:[facility] Start: 03-09-2023 Refill Raymond Pierre ph, [...] 02-23-2022 End: 02-23-2022 ambulatory Karel Elaine Other [employer] Other Start: 02-23-2022 Telephone encounter Karel Elaine [facility] Start: 01-09-2022 Refill Raymond Pierre ph, MD Work Phone: Neurology Comment on above: Refill Request Start: 01-04-2022 End: 01-04-2022 ambulatory Karel Elaine Other [employer] Other Start: 01-04-2022 Telephone encounter Karel Elaine [facility] Start: 12-12-2021 End: 12-12-2021 ambulatory Karel Elaine Other [employer] Other Start: 12-12-2021 Telephone encounter Karel Elaine [facility] Start: 11-30-2021 End: 12-01-[address] MUNIRA DEAL Facility:[facility] Start: 11-16-2021 End: 11-16-2021 ambulatory Karel Elaine Other [employer] Other Start: 11-16-2021 Telephone encounter Karel Elaine [facility] Start: 10-11-2021 Encounter for preprocedural laboratory examination DR MUNIRA DEAL [facility] Start: 10-11-2021 End: 10-11-[address] MUNIRA DEAL Facility:[facility] Start: 10-07-2021 End: 10-08-[address] CAITLYN SPARROW Facility:[facility] Start: 10-07-2021 End: 10-08-2021 Encounter for preprocedural laboratory examination DR CAITLYN SPARROW Facility:[facility] Start: 10-04-2021 End: 10-04-[address] MUNIRA DEAL Facility:[facility] Start: 10-03-2021 End: 10-04-[address] CAITLYN SPARROW Facility:[facility] Start: 09-15-2021 End: 09-16-2021 ambulatory LUDA RODRIGUEZ Facility:[facility] Start: 08-03-2021 End: 08-03-2021 ambulatory Akrel Elaine Other [employer] Other Start: 08-03-2021 Telephone encounter Karel Elaine [facility] Start: 07-28-2021 End: 07-28-2021 ambulatory Karel Elaine Other [employer] Other Start: 07-28-2021 Telephone encounter Karel Elaine [facility] Start: 11-10-2019 End: 11-11-2019 Patient encounter procedure BRADLEY SIMMONS [facility] Start: 11-10-2019 End: 11-10-2019 Subsequent hospital visit by physician Bradley Simmons Work Phone[facility] Comment on above: Arrived Procedures Date Procedure Procedure Detail Performing Clinician Start: 10-03-2021 Adult depression screening assessment Raymond Medina MD Work Phone: Plan of Treatment Date Care Activity Detail Author Start: 2036 Shingles Vaccine (1 of 2) Shingles Vaccine (1 of 2) [place], [place] Start: 05-11-2023 Influenza vaccination C [facility] Start: 10-03-2022 Adult depression screening assessment DEPRESSION SCREENING [facility] Start: 09-10-2022 DEPRESSION ASSESSMENT DEPRESSION ASS ESSMENT [facility] Start: 05-11-2022 Influenza [facility] Start: 03-29-2020 End: 03-29-2020 Appointment 03/29/2020 Appointment General Surgery Bradley Simmons MD [address] [place], [place] [id number] [facility] Start: 05-11-2019 Influenza vaccination Flu vaccine (# 1) [place], [place] Start: 11-07-2016 HPV TESTING HPV TESTING [facility] Start: 2016 Screening for malign ant neoplasm of cervix HPV Testing [facility] Start: 2007 Cervical cancer screen Cervical canc er screen [place], [place] Start: 2007 PAP TESTING PAP TESTING [facility] Start: 2007 Screening for malign ant neoplasm of cervix Pap Testing [facility] Start: 2005 Urine microalbumin profile DTAP,TDAP,TD (1 - Tdap) [facility] Start: 2004 HEPATITIS C SCREENING HEPATITIS C [facility] Start: 2004 Hepatitis C screening Hepatitis C [facility] Start: 2004 HIV SCREENING HIV SCREENING [facility] Start: 2004 HIV screening HIV Screening [facility] Start: 2001 HIV screen HIV screen [place], [place] Start: 12-25-1997 Urine microalbumin profile DTaP,Tdap,Td Vaccine (6 - Tdap) [facility] Start: 1997 DTaP/Tdap/Td vaccine (1 - Tdap) DTaP/Tdap/Td vaccine (1 - Tdap) [place], [place] Start: 1991 COVID-19 VACCINE (1) COVID-19 VACCIN E (1) [facility] Start: 1987 Varicella vaccine (1 of 2 - 2-dose childhood series) Varicella vaccine (1 of 2 - 2-dose childhood series) [place], [place] Start: 01-14-1987 COVID-19 VACCINE (#1) COVID-19 VACCI NE (#1) [facility] Start: 1986 HEPATITIS B (1 of 3 - 3-dose series) HEPATITIS B (1 of 3 - 3-dose series) [facility] Immunizations Immunization Date Immunization Notes Care Provider Fa cilivernon 08-22-2019 influenza virus vacc ine, unspecified formulation Raymond Medina MD Work Phone: [facility] Payers Date Payer Category Payer Unknown 2019 Medicaid MEDICAID [facility] MEDICAID [id number] 2019-Present [phone] [address] [place] [address] Medicaid [id number] [id number] 2019 Medicaid [id number] [id number] .[id number] 2019 Medicare MEDICARE MEDICAR E A AND B [id number] 2019-Present [phone] [place] [address] Medicare [id number] .[id number] 2019 Medicare [id number]. 1.13.159.2.7.3 .[id number] 2014 Medicaid MEDICAID [facility] JOB xxxxxxxxxxxx 2014-Present [phone] [address] [place] [address] xxxxxxxxxxxx [id number] .[id number] 2014 Medicare MEDICARE MEDICAR E PART A AND B xxxxxxxxxxx 2014-Present [phone] [place] [address] xxxxxxxxxxx [id number].3 .959898.315 1986 Unknown [id number] 2.16.840.1.137906.3.579.2.177 1986 Unknown [id number] 2.16.840.1.530283.3.579.2.593 1986 Unknown [id number] 2.16.840.1.754059.3.579.2.593 1986 Unknown [id number] 2.16.840.1.136013.3.579.2.593 1986 Unknown [id number] 2.16.840.1.987370.3.579.2.593 1986 Unknown [id number] 2.16.840.1.528659.3.579.2.593 1986 Unknown [id number] 2.16.840.1.836310.3.579.2.593 1986 Unknown [id number] 2.16.840.1.041324.3.579.2.593 1986 Unknown [id number] 2.16.840.1.497474.3.579.2.593 1986 Unknown [id number] 2.16.840.1.757931.3.579.2.593 1986 Unknown [id number] 2.16.840.1.705196.3.579.2.196 1986 Unknown [id number] 2.16.840.1.672757.3.579.2.196 1986 Unknown [id number] 2.16.840.1.529132.3.579.2.196 1986 Unknown [id number] 2.16.840.1.380228.3.579.2.196 1986 Unknown [id number] 2.16.840.1.851669.3.579.2.196 1986 Unknown [id number] 2.16.840.1.984196.3.579.2.128 6 1986 Unknown [id number] 2.16.840.1.720215.3.579.2.128 6 1986 Unknown [id number] 2.16.840.1.717342.3.579.2.128 6 1986 Unknown [id number] 2.16.840.1.076652.3.579.2.128 6 1986 Unknown [id number] 2.16.840.1.233801.3.579.2.128 6 1986 Unknown [id number] 2.16.840.1.975197.3.579.2.128 6 1986 Unknown [id number] 2.16.840.1.352106.3.579.2.128 6 1986 Unknown [id number] 2.16.840.1.065501.3.579.2.128 6 1986 Unknown [id number] 2.16.840.1.225086.3.579.2.128 6 1986 Unknown [id number] 2.16.840.1.147840.3.579.2.128 6 1986 Unknown [id number] 2.16.840.1.170317.3.579.2.128 6 1986 Unknown [id number] 2.16.840.1.271398.3.579.2.128 6 1986 Unknown [id number] 2.16.840.1.270771.3.579.2.128 6 1986 Unknown [id number] 2.16.840.1.197548.3.579.2.128 6 1986 Unknown [id number] 2.16.840.1.090942.3.579.2.128 6 1986 Unknown [id number] 2.16.840.1.523827.3.579.2.128 6 1986 Unknown [id number] 2.16.840.1.608718.3.579.2.128 6 1986 Unknown [id number] 2.16.840.1.770480.3.579.2.125 9 1986 Unknown [id number] 2.16.840.1.800427.3.579.2.125 9 1986 Unknown [id number] 2.16.840.1.178653.3.579.2.125 9 1958 Medicaid [id number] 1958 Medicare [id number] Social History Date Type Detail Facility Start: 11-25-2018 End: 11-10-2019 Tobacco smoking status [facility] Never smoker [facility] Start: 04-21-2019 End: 11-10-2019 Alcohol intake Current drinker of alcohol (finding) [facility] Start: 11-10-2019 Alcohol Comment [facility] Start: 1985 Sex Assigned At Not on file M juan [facility] Start: 11-25-2018 Tobacco use and exposure Smoke less tobacco non-user [facility] Start: 11-25-2018 History SDOH Alcohol Comment [facility] Start: 04-21-2019 End: 08-19-2020 Sex Assigned At [facility] Start: 04-21-2019 End: 08-19-2020 History of Social function [facility] Adult Depression Screening Assessment 4 [facility] Clinical Notes 09-15-2021 to 08-09-2023 Telephone [...] Ashtyn Perez MA documented in this encounter [facility] 03-09-2023 Miscellaneous Notes Formattin g of this note might be different from the original. Please see pended medication. Pharmacy linked. Last ordered 10/25/2022. Ashtyn Perez MA documented in this encounter [facility] 07-11-2022 Note CONSULTATION PROCEDURE DATE: 07/11/2022 [...] be followed up in the office. [facility] 07-11-2022 Note CONSULTATION CONSULTATION DATE: 07/11/2022 CHIEF COMPLAINT: Trapezius and upper back pain. HISTORY OF PRESENT ILLNESS: This is a 36-year-old female who is known to the Pain [facility]. The patient, in October of this year, had a rhizotomy radiofrequency ablation along her cervical spine. This has afforded the patient significant improvement. 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 CC: Caitlyn Sparrow M.D. [facility] 05-23-2022 Miscellaneous Notes Formattin g of this note might be different from the original. Please see pended medication. Pharmacy linked. Last ordered 10/20/2021. Ashtyn Perez Ma documented in this encounter [facility] 03-08-2022 Note CONSULTATION CONSULTATION DATE: 03/08/2022 [...] Approved by: LUDA RODRIGUEZ . 03/09/2022 13:38:00 [facility] 01-09-2022 Miscellaneous Notes Please see pended medication. Pharmacy linked. Last ordered 07/05/2021. Ashtyn Perez Ma documented in this encounter [facility] 11-30-2021 Note CONSULTATION PAIN MANAGEMENT CONSULTATION [...] by: LUDA RODRIGUEZ . 12/01/2021 12:26:00 [facility] 09-15-2021 Note [facility] [place], [place] NAME: MARITA MESSINA DATE OF : MEDICAL REC#: [id number] OUTPATIENT CASE MANAGER: [id number] LILIANA DAWKINS ADMIT DATE: 09/15/2021 12:21:00 [employer]IL[employer] FIGH[employer] SPECIALIST DATE: 09/16/2021 11:00 DICTATING PHYSICIAN: LUDA [...] Electronically Authenticated and Edited by: Luda Rodriguez SHEEP AND WHEAT FARMER on 09/25/2021 11:23 PM [facility] Signed and Approved by: LUDA RODRIGUEZ . 09/25/2021 23:23:00 [facility] Evaluation note Diagnosis Excessive physiologic tremor Essential and other specified forms of tremor documented in this encounter [facility] noteNo [employer] Other Evaluation note* Diagnosis Daytime sleepiness Narcolepsy without cataplexy documented in this encounter [facility] Diagnosis Daytime sleepiness Narcolepsy without cataplexy documented in this encounter [facility]* Diagnosis Daytime sleepiness Narcolepsy without cataplexy documented in this encounter [facility] Summary Purpose Family History No Family History Records FoundNo Family History Records FoundNo Family History Records FoundNo Family History Records FoundNo Family History Records FoundNo Family History Records FoundNo Family History Records Found Advance Directives No Advanced Directives Records FoundDocuments on File Type Date Recorded Patient Medicare Compliance Auditor Expl anation Advance Directives and Living Will Power of Maintenance Of Way Superintendent History of Present Illness * Bradley Simmons MD - 11/10/2019 2:00 PM EST [facility] Evaluation PATIENT NAME: Marita Messina MRN NUMBER: [id number] DATE OF : 1985 PHONE NUMBER: [phone] PRIMARY CARE PHYSICIAN: No primary care provider [...] every other week Pulmonary embolism (HCC) 2014 [facility] Past Surgical History: Past Surgical History: Procedure Laterality Date HERNIA REPAIR a year had repair above belly button at [facility] HERNIA REPAIR umbilical and above belly buton also at [facility] about 2 years ago HYSTERECTOMY TUMOR REMOVAL Left 2012 left thumb at [facility] Family History: Family History Problem Relation [...] CT scan reports and images from the [facility] E from May 2019 and [...] and content) DATE CREATED AUTHOR 05/31/2019 [facility] DATE CREATED AUTHOR AUTHOR'S ORGANIZ ATION 11/11/2019 [facility] DATE CREATED AUTHOR AUTHOR'S ORGANIZ ATION 12/01/2021 [facility] DATE CREATED AUTHOR AUTHOR'S ORGANIZ ATION 09/02/2022 [facility] DATE CREATED AUTHOR AUTHOR'S ORGANIZ ATION 05/14/2024 [facility] DATE CREATED AUTHOR AUTHOR'S ORGANIZ ATION 05/21/2024 [facility] DATE CREATED AUTHOR AUTHOR'S ORGANIZ ATION 06/17/2024 [facility] EPIC Source Comments (unrecognize d section and content) In the event this informatio n is protected by the Federal Confidentiality of Alcohol and Drug Abuse Patient Records regulations: The Federal rules restrict any use of the information to criminally investigate or prosecute any alcohol or drug abuse patient.[facility] the event this information is protected by the Federal Confidentiality of Alcohol and Drug Abuse Patient Records regulations: The Federal rules restrict any use of the information to criminally investigate or prosecute any alcohol or drug abuse patient.[facility] the event this information is protected by the Federal Confidentiality of Alcohol and Drug Abuse Patient Records regulations: The Federal rules restrict any use of the information to criminally investigate or prosecute any alcohol or drug abuse patient.[facility] the event this information is protected by the Federal Confidentiality of Alcohol and Drug Abuse Patient Records regulations: The Federal rules restrict any use of the information to criminally investigate or prosecute any alcohol or drug abuse patient.[facility] Reason for Visit (unrecogniz ed section and content) Reason Onset Date Comments Refill Request 01/09/2022 Reason Onset Date Comments Refill Request 03/09/2023 Reason Onset Date Comments Refill Request 08/09/2023 Care Teams (unrecognized sec tion and content) Gelatin Maker Utility Relationship Specialty Start Date End Date Caitlyn Sparrow [address] [place] [address] PCP - General Internal Medicine 11/25/18 Gelatin Maker Utility Relationship Specialty Start Date End Date Caitlyn Sparrow [place] [address] PCP - General Internal Medicine 11/25/18 Gelatin Maker Utility Relationship Specialty Start Date End Date [place]aitlyn [place], [place] [id number] PCP - General Internal Medicine 11/25/18 Gelatin Maker Utility Relationship Specialty Start Date End Date KyaraCaitlyn FERMIN: [phone] [address] [place], [place] [id number] PCP - General Internal Medicine 11/25/18 FOR [...] BE BASED ON THE PRIMARY CLINICAL RECORDS. [facility]. provides no warranty or guarantee of the accuracy or completeness of information in this document.
--- NOTE | 2024-06-18 11:36 | P.CN_ITS ---
Consult Note: HPI Data of Consult Patient: known to practice within the last 3 years Requesting Physician: Michelle Randhawa NP Primary Care Provider: CAITLYN SPARROW Consult Narrative Reason for consult: f/u Narrative: Marita Messina a pleasant 38 year old female presents for evaluation of chronic neck and back pain. Patient has tried and failed OTC medications, home based exercise program and cervical traction. Since that time her back pain has been the most aggravating factor, especially with ADLs and housework. recent lumbar imaging consistent with lumbar spondylosis and minimal degenerative disc changes at L5-S1. Underwent bilateral L4-5 L5-S1 facet RFA on 03/03/24 without improvement, significant pain increase post-op and numerous weeks following. see previous notes for details. Since last visit she has noticed improvement in pain with TENS flexeril 15mg TID gabapentin 300mg BID. unfortunately dry needling was not covered by insurance and she could not afford, massage therapy not available. medrol dose pack previously provided mild relief. Patient has noticed improvement in hip pain but continues to have severe spasms and tightness to low back. Pain 6/10 today tight increased with standing and walking. cc:: CC: Michelle Randhawa NP Review of Systems ROS Status of ROS 10 or more systems reviewed and unremark able except as noted in history and below Musculoskeletal Reports: back pain PFSH PFSH Medical History Anxiety ?F41.9 - Anxiety disorder, unspecified (ICD-10) Hiatal hernia ?K44.9 - Diaphragmatic hernia without obstruction or gangrene (ICD-10) Acid reflux ?K21.9 - Gastro-esophageal reflux disease without esophagitis (ICD-10) Pulmonary embolism ?I26.99 - Other pulmonary embolism without acute cor pulmonale (ICD-10) Asthma ?J45.909 - Unspecified asthma, uncomplicated (ICD-10) Surgical History History of surgical removal of Bartholin’s gland cyst ?Z98.890 - Other specified postprocedural states (ICD-10) ?Z87.42 - Personal history of other diseases of the female genital tract (ICD-10) History of eye surgery ?Z98.890 - Other specified postprocedural states (ICD-10) [place]upe teeth extracted ?K08.409 - Partial loss of teeth, unspecified cause, unspecified class (ICD- 10) History of hernia repair ?Z98.890 - Other specified postprocedural states (ICD-10) ?Z87.19 - Personal history of other diseases of the digestive system (ICD-10) History of hysterectomy ?Z90.710 - Acquired absence of both cervix and uterus (ICD-10) Meds Home Medications and Allergies Home Medications ?Medication ?Instructions ?Recorded ?Confirmed ?Type albuterol sulfate 90 mcg/actuation 2 puff inhalation Q6H PRN 06/22/23 03/03/24 History aerosol inhaler shortness of breath or wheezing buspirone 15 mg tablet 15 mg PO BID 06/22/23 03/03/24 History cariprazine 3 mg capsule (Vraylar) 6 mg PO DAILY 06/22/23 03/03/24 History erenumab-aooe 70 mg/mL 70 mg subcut 06/22/23 History subcutaneous auto-injector (Aimovig Autoinjector) fluoxetine 40 mg capsule (Prozac) 40 mg PO DAILY 06/22/23 03/03/24 History omeprazole 20 mg capsule,delayed 40 mg PO BID 06/22/23 03/03/24 History release propranolol 20 mg tablet 20 mg PO Q12H 06/22/23 03/03/24 History rizatriptan 5 mg tablet 5 mg PO Q2H PRN migraine headache 06/22/23 03/03/24 History phentermine 37.5 mg tablet 18.75 mg PO DAILY 01/28/24 03/03/24 History (Adipex-P) cyclobenzaprine 10 mg tablet 10 mg PO BID 02/07/24 03/03/24 History baclofen 10 mg tablet mg 02/18/24 History oxycodone-acetaminophen 5 mg-325 1 tab PO TID PRN pain #21 tabs 03/12/24 Rx mg tablet (Percocet) gabapentin 300 mg capsule 300 mg PO .QHS #30 caps 03/20/24 Rx oxycodone-acetaminophen 5 mg-325 1 tab PO BID PRN pain #60 tabs 03/20/24 Rx mg tablet (Percocet) cyclobenzaprine 10 mg tablet 15 mg (1.5 x 10 mg) PO TID PRN 05/08/24 Rx muscle spasm #135 tabs gabapentin 300 mg capsule 300 mg PO BID #60 caps 05/08/24 Rx Allergies Allergy/AdvReac Type Severity Reaction Status Date / Time hydrocodone [From Vicodin] Allergy Hives Verified 03/03/24 09:21 Exam Narrative Exam Narrative: diffuse myofascial pain and tenderness Constitutional Documenting provider has reviewed patient's vital signs: yes Common normals: no apparent distress, oriented x3, healthy appearing, alert and well nourished General appearance: cooperative HENMT Common normals: normocephalic, hearing grossly normal bilaterally and moist oral mucous membranes Head and scalp: normocephalic Eye Common normals: PERRL Pupil: PERRL Neck & C-Spine Common normals: full ROM General: normal visual inspection Cervical spine: pain with cervical ROM, paracervical muscle tenderness and trapezius muscle tenderness Other: pain with flexion extension and rotation axial neck pain without radiculopathy Chest Common normals: inspection of chest normal Respiratory Common normals: normal respiratory effort, no retractions and no use of accessory muscles Back & Pelvis Lumbar spine/lower back: normal to inspection, lumbar ROM normal, pain with ROM, paraspinal muscle tenderness, paraspinal muscle spasm and straight leg raise negative bilaterally Other: mild myofascial pain/stiffness and spasming facet mediated pain L2-S1 Extremity Common normals: normal to inspection and full ROM Neuro Common normals: oriented x3, CN's II-XII intact bilaterally, moves all extremities, no focal motor deficits, no sensory deficits noted and deep tendon reflexes 2+ bilaterally Sensorium/orientation: alert Motor exam: strength 5/5 throughout and no movement abnormalities noted Psych Common normals: mental status grossly normal, thought process normal, cooperative, affect normal, speech normal and activity/motor behavior normal Speech: normal speech Thought process: normal thought process Results Additional Findings Additional findings: If on a controlled substance or opioids, I have checked an [place] report on this patient and there are no aberrancies noted in the prescribing history.??If on a controlled substance or opioid a drug screen was completed and reviewed within the last year, and if there has not been a drug screen completed we ordered one today to monitor higher risk, state monitored pain medication use. As part of providing excellent, safe, comprehensive care, the following was completed at our patient's visit: 1. A medication reconciliation and review to ensure accurate knowledge of c urrent/active medications, including asking our patients to inform us about any [id number] medications or herbal remedies/nutritional supplements/alternative remedies. 2. A review to specifically ensure our patients have had annual screening for screening for depression, screening for tobacco use, and screening for unhealthy alcohol use. For concerning screenings had a discussion with the patient, provided patient education, and recommended follow-up with primary care provider when appropriate. If patient noted with a risk of falling, they received education on strength, gait, and balance training to prevent future risk of falling. Assessment and Plan Assessment and Plan (1) Lumbar spondylosis: (2) Lumbar stenosis with neurogenic claudication: (3) Cervical spondylosis: (4) Myofascial pain syndrome: (5) Chronic pain syndrome: (6) Lumbar radiculopathy: Plan increase gabapentin 300mg capsules 2 capsules AM and 2 capsules HS, can take 1 am 1 mid day 2 hs if needed as discussed continue flexeril 15mg TID PRN continue HEP as tolerated continue TENS PRN consider bilateral L4-5 TFESIs in the future f/u 2 months, sooner if needed termination clerk can consider spinal cord stimulation for multilevel facet mediated pain failed RFAs
== END 2024-06-18 11:06 | disposition home or self-care (01) ==
LOC: PM 11:05
PROVIDERS: PCP Internal Medicine; Visit Provider Nurse Practitioner
DX: M47.816 Spondylosis without myelopathy or radiculopathy, lumbar region (principal); M48.062 Spinal stenosis, lumbar region with neurogenic claudication; M47.812 Spondylosis without myelopathy or radiculopathy, cervical region; M79.18 Myalgia, other site; G89.4 Chronic pain syndrome; M54.16 Radiculopathy, lumbar region
CPT/HCPCS: G0463

== ENCOUNTER 2024-08-20 11:18 | Outpatient (OUT) | payer MEDICARE, MEDICAID, SELFPAY ==
--- OUTSIDE RECORDS SUMMARY | 2024-08-20 11:36 | XMS_ITS | CCD ---
Author Organization [facility] Care Team Providers Care 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 Name Role Phone BRADLEY SIMMONS Referring Unavailable [...] MUNIRA Avalos Admitting Unavailable TOYIN, DR MUNIRA Avlaos Attending Unavailable TOYIN, DR MUNIRA Avalos Consulting Unavailable KYARA, DR CAITLYN Griffiths Primary Care Unavail able TOYIN, DR MUNIRA Avalos Admitting Unavailable RONNIE, EVETTE Consulting Unavailable LUDA MANUEL Consulting Unavailable TOYIN, DR MUNIRA Avalos Admitting Unavailable TOYIN, DR MUNIRA Avalos Attending Unavailable KYARA, DR CAITLYN Griffiths Primary Care Unavail able TOYIN, DR MUNIRA Avalos Admitting Unavailable KYARA, DR CAITLYN Griffiths Primary Care Unavail able TOYIN, DR MUNIRA Avalos Attending Unavailable TOYIN, DR MUNIRA Avalos Consulting Unavailable KYARA, DR CAILTYN Griffiths Primary Care Unavail able TOYIN, DR MUNIRA Avalos Attending Unavailable MANUEL, LUDA Consulting Unavailable TOYIN, DR MUNIRA Avalos Admitting Unavailable TOYIN, DR MUNIRA Avalos Admitting Unavailable DEAL, DR MUNIRA Avalos Attending Unavailable KYARA, DR CAITLYN Griffiths Primary Care Unavail able LUDA MANUEL Consulting Unavailable TOYIN, DR MUNIRA Avalos Attending Unavailable KYARA, DR CAITLYN Griffiths Primary Care Unavail able LUDA MANUEL Consulting Unavailable TOYIN, DR MUNIRA Avalos Admitting Unavailable Kyara, Caitlyn Amber Primary Care Provider Jo-Ann Carlson MD [facility] Care Provider KYARA, CAITLYN Griffiths Referring Unavailabl e KYARA, CAITLYN Griffiths Primary Care Unavailabl e LOLYLEONIDAS PEÑA Referring Unavailable KYARA, CAITLYN Griffiths Primary Care Unavailabl e LOLYLEONIDAS PEÑA Referring Unavailable KYARA, CAITLYN Griffiths Primary Care Unavailabl e LOLY, LEONIDAS Miles Referring Unavailable KYARA, CAITLYN Griffiths Primary Care [...] e KYARA, CAITLYN Griffiths Primary Care Unavailabl LUIZA Dorsey Attending Unavailable LUIZA ORDOÑEZ Attending Unavailable LUIZA ORDOÑEZ Referring Unavailable KYARA, CAITLYN Griffiths Primary Care Unavailabl e KYARA, CAITLYN Griffiths Referring Unavailabl e KYARA, CAITLYN Griffiths Primary Care Unavailabl e YURI, MOHAMMRAIN Attending Unavailable KYARA, CAITLYN Griffiths Referring Unavailabl e KYARA, CAITLYN Griffiths Primary Care Unavailabl e YURI, MOHAMMED Referring Unavailable KYARA, CAITLYN Griffiths Primary Care Unavailabl e YURI, MOHAMMED Referring Unavailable KYARA, CAITLYN Griffiths Primary Care Unavailabl e YURI, MOHAMMED Referring Unavailable KYARA, CAITLYN Griffiths Primary Care UnavailLAQUITA Degroot Attending LAQUITA Montgomery Referring Unavailable CAITLYN SPARROW [facility] Care UnavailDORCAS Toure Attending Unavailable DORCAS PERALTA Attending Unavailable ZANE, DORCAS Attending Unavailable SHERIE MARIA Attending Unavailable Kyara CLEMONS, [facility] vailamei Gidebbieitis , Sana Doyle Attending Unavailable Kyara CLEMONS, [facility] vailable Gidebbieitis , Sana Doyle Attending Unavailable Kyara CLEMONS, [facility] kolbyilamei Gigina CLEMONS, Sana Doyle Attending Unavailable Martha RUSSO, Dorcas Stewart Attending Christian Sparrow MD, [facility] vailable Allergies Allergy Classification Reported Allergen(s) Allergy Type Date of Onset Reaction(s) Facility (11 sources) Acetaminophen / HYDROcodone; Translations: [HYDROCODONE-ACETA MINOPHEN] Drug Allergy 10-09-2019 [place], [place] (9 sources) Acetaminophen / HYDROcodone; Translations: [Vicodin] Drug Allergy 09-10-2014 [facility] Repository Medications Current Medications Medication Drug Class(es) Dates Sig (Normalized) Sig (Original) Aimovig 140 MG/ML (6 sources) inject 140 mg by subcutaneous injection every month Aimovig 140 MG/ML as directed Subcutaneous monthly Active [id number] 200 actuat albuterol 0.09 mg/actuat metered dose inhaler (15 sources) beta2-Adrenergic Agonist take 2 puff(s) by mouth every four to six hours albuterol HFA 90 mcg/act inhaler inhale 2 puffs by mouth and INTO THE LUNGS every 4 to 6 hours if needed Active Albuterol prn Ac tive amitriptyline hydrochloride 100 mg oral tablet (9 sources) Tricyclic Antidepressant take 1 tablet by mouth at bedtime Amitriptyline HCl 100 MG take 1 tablet by mouth at bedtime for 30 Active take 1 tablet by mouth at bedtim e Amitriptyline HCl 50 MG take 1 tablet by mouth at bedtime for 30 Active betamethasone 0.5 mg/ml / clotrimazole 10 mg/ml topical cream (2 sources) Azole Antifungal, Corticosteroid Start: 08-04-2024 clotrimazole-betamethasone (Lotrisone) cream Indications: Tinea pedis of both feet , Chronic dermatitis of feet Apply twice daily as directed 45 g 1 08/04/2024 Active 60 actuat budesonide 0.16 mg/actuat / formoterol fumarate 0.0045 mg/actuat metered dose inhaler (15 sources) Corticosteroid, beta2-Adrenergic Agonist take 2 puff(s) by inhalation in the morning budesonide-formoterol (Symbicort) 160-4.5 MCG/ACT inhaler Inhale 2 puffs in the morning and 2 puffs in the evening. Active take 2 puff(s) by inhalation twi ce daily Symbicort 160-4.5 MCG/ACT 2 puffs Inhalation Twice a day Active busPIRone hydrochloride 30 mg oral tablet (9 sources) take 1 tablet by mouth in the morning busPIRone (Buspar) 30 MG tablet Take 1 tablet by mouth in the morning and 1 tablet before bedtime. Active cariprazine 6 mg oral capsule (15 sources) Atypical Antipsychotic take 1 capsule by mouth in the morning Vraylar 6 MG capsule Take 1 capsule by mouth in the morning. Active take 1 capsule by mo [facility] every twenty-four hours Vraylar 4.5 MG 1 capsule Orally Once a day for 90 days Active cyclobenzaprine hydrochloride 10 mg oral tablet (10 sources) Muscle Relaxant take 1 tablet by mouth twice daily as needed cyclobenzaprine (Flexeril) 10 MG tablet Take 1 tablet by mouth 2 (two) times a day as needed Active [facility] as needed for muscle spasms cyclobenzaprine (FLEXERIL) 5 MG tablet T toñito 5 mg by mouth 2 times daily as needed for Muscle spasms 0 Active doxycycline hyclate 100 mg oral tablet (8 sources) Tetracycline-class Drug Start: 05-23-2024 End: 06-02-2024 doxycycline (Vibra-Tabs) 100 MG tablet Indications: Folliculitis Take 1 tablet (100 mg) by mouth in the morning and 1 tablet (100 mg) before bedtime. Do all this for 10 days. Take with a full glass of water and do not lie down for at least 30 minutes after.. 20 tablet 05/23/2024 06/02/2024 Active take 1 capsule by mo ut every twenty-four hours Doxycycline Hyclate 100 MG 1 capsule Orally Once a day Not-Taking 0.3 ml enoxaparin sodium 100 mg/ml prefilled syringe (1 source) Low Molecular Weight Heparin enoxaparin (LOVENOX) 30 MG/0.3ML injection Inject 30 mg into the skin daily 0 Active 1 ml erenumab-aooe 140 mg/ml auto-injector (13 sources) Start: 10-25-19 End: 10-25-19 24 inject 140 mg by subcutaneous injection every [...] MONTH. 3 mL 3 05/30/2021 05/30/2022 Active erenumab (Aimovi g) 140 MG/ML injection Inject 140 mg under the skin every 28 (twenty-eight) days Active Comment on above: INJECT 140 MG SUBCUT ANEOUSLY ONCE EVERY MONTH. Erenumab-aooe (AIMOVIG SC) (1 source) 1 ml evolocumab 140 mg/ml auto-injector (5 sources) PCSK9 Inhibitor Start: 4 Repatha SureClick 140 MG/ML injection Inject 140 mg under the skin every 14 (fourteen) days 06/10/2024 Active FLUoxetine 10 mg oral capsule (20 sources) Serotonin Reuptake Inhibitor Start: 2 take 1 capsule by mouth every twenty-four hours FLUoxetine HCl 10 MG 1 capsule Orally Once a day for 30 day(s) 40 mg in am and 10 mg at noon Dec, Active Start: 11-20-2018 take 1 capsule by mo uth once daily FLUoxetine HCl (PROZAC) 40 mg capsule Take 40 mg by mouth once daily. 0 11/20/2018 Active Comment on above: Take 40 mg by mouth once daily. gabapentin 300 mg oral capsule (9 sources) Anti-epileptic Agent Start: 05-09-20 take 1 capsule by mouth in the morning gabapentin (Neurontin) 300 MG capsule Take 300 mg by mouth in the morning and 300 mg before bedtime. 05/09/2024 Active hydrOXYzine hydrochloride 10 mg oral tablet (4 sources) Antihistamine hydrOXYzine HCl 10 MG as directed Orally every 8 hrs for 30 days Active ketoconazole 20 mg/ml medicated shampoo (11 sources) Azole Antifungal Start: 05-26-20 24 ketoconazole (NIZOral) 2 % shampoo Indications: Folliculitis Apply topically 2 (two) times a week 120 mL 05/26/2024 Active Start: 05-26-2024 ketoconazole ( NIZOral) 2 % shampoo Indications: Folliculitis Apply topically 2 (two) times a week 120 mL 05/26/2024 Active Start: 05-26-2024 ketoconazole ( NIZOral) 2 % shampoo Indications: Folliculitis Apply topically 2 (two) times a week 120 mL 05/26/2024 Active Start: 05-22-2024 End: 05-23-2024 Ketoconazole 1 % shampoo Ind ications: Dermatitis Apply 1 Application topically 2 (two) times a week 200 mL 1 05/22/2024 05/23/2024 Discontinued lamoTRIgine 100 mg oral tablet (6 sources) Mood Stabilizer, Anti-epileptic Agent End: 06-16-2024 take 1 tablet by mouth in the morning lamoTRIgine (LaMICtal) 100 MG tablet Take 1 tablet by mouth in the morning. 06/16/2024 Discontinued levothyroxine sodium 0.075 mg oral tablet (1 source) l-Thyroxine take 1 tablet by mouth once daily levothyroxine (SYNTHROID) 75 MCG tablet Take 75 mcg by mouth Daily 0 Active LORazepam 0.5 mg oral tablet (15 sources) Benzodiazepine Start: 10-19-2021 take 1 tablet by mouth every twenty-four hours Ativan 0.5 MG 1 tablet at bedtime as needed Orally Once a day for 10 days f41.1 Oct, Active take 1 tablet by anu th every six hours as needed LORazepam (Ativan) 0.5 MG tablet Take 1 tablet by mouth every 6 (six) hours if needed Active take 1 tablet by anu th every twenty-four hours Ativan 0.5 MG 1 tablet at bedtime as nee ded Orally Once a day for 30 days [...] time(s) a day for 30 days Active [place]-3 Fatty Acids (FISH OIL OMEGA-3 PO) (5 sources) take 2 tablets by mouth twice daily in the morning [place]-3 Fatty Acids (FISH OIL OMEGA-3 PO) Take 2 g by mouth in the morning and 2 g before bedtime. 2 g 2 tab bid. . Active omeprazole 20 mg delayed release oral capsule (20 sources) Proton Pump Inhibitor Start: 4 End: 5 take 1 capsule by mouth once daily omeprazole (PriLOSEC) [address] capsule Indications: Gastroesophageal reflux disease without esophagitis Take 1 capsule (20 mg) by mouth 1 (one) time each day at the same time 90 capsule 1 05/26/2024 11/22/2024 Active Start: 11-07-2018 take 1 capsule by mo ut once daily Omeprazole 40 mg capsule take 1 capsule by mouth once daily as directed 0 11/07/2018 Active omeprazole (PriL OSEC) [address] capsule 20 mg 1 (one) time each day at the same time Active take 1 capsule by mo uth twice daily Omeprazole 40 MG 1 capsule 30 minutes before morning meal Orally twice a day Not-Taking take 2 capsules by m out once daily omeprazole (PRILOSEC) 20 MG delayed release capsule Take 40 mg by mouth daily 0 Active Comment on above: take 1 capsule by mo uth once daily as directed ondansetron 4 mg oral tablet (15 sources) Serotonin-3 Receptor Antagonist Start: 05-25-2021 take 1 tablet by mouth once daily Zofran ODT 4 MG 1 tablet on the tongue and allow to dissolve Orally Once a day for 30 day(s) May, Active take 1 tablet by anu th every eight hours as needed ondansetron ODT (Zofran-ODT) 4 MG disintegrating tablet 4 mg every 8 (eight) hours if needed Active propranolol hydrochloride 20 mg oral tablet (20 sources) beta-Adrenergic Gianni proprano lol (Inderal) 20 MG tablet 20 mg in the morning and 20 mg before bedtime. Active take 1 tablet by anu th three times daily propranolol (INDERAL) 10 mg tablet Take 10 mg by mouth three times daily. 0 Active take 1 tablet by mouth twice bryanna ly propranolol (INDERAL) 10 MG tablet Take 10 mg by mouth 2 times daily 0 Active Comment on above: Take 10 mg by mouth three times daily. Semaglutide-Weight Management (Wegovy) 0.5 MG/0.5ML solution auto-injector (6 sources) Start: 4 End: 4 inject 0.5 mg by subcutaneous injection every week Semaglutide-Weight Management (Wegovy) 0.5 MG/0.5ML solution auto-injector Indications: Obesity, Class II, BMI 35-39.9 Inject 0.5 mg under the skin 1 (one) time per week 6 mL 05/29/2024 06/16/2024 Discontinued Start: 05-29-2024 inject 0.5 mg by sub cutaneous injection every week Semaglutide-Weight Management (Wegovy) 0.5 MG/0.5ML solution auto-injector Indications: Obesity, Class II, BMI 35-39.9 Inject 0.5 mg under the skin 1 (one) time per week 6 mL 05/29/2024 Active Start: 05-14-2024 inject 0.5 mg by sub cutaneous injection every week Semaglutide-Weight Management (Wegovy) 0.5 MG/0.5ML solution auto-injector Indications: Obesity, Class II, BMI 35-39.9 Inject 0.5 mg under the skin 1 (one) time per week 6 mL 05/14/2024 Active traZODone hydrochloride 50 mg oral tablet [...] 10 mg oral capsule (4 sources) Start: 10-30-19 Biotin 10,000 mcg cap 12 hr buPROPion hydrochloride 150 mg extended release oral tablet (4 sources) Aminoketone Start: 10-13-19 buPROPion SR (ZYBAN SR; WELLBUTRIN SR) 150 mg 12 hr tablet lithium carbonate 450 mg extended release oral tablet (4 sources) Start: 11-21-19 19 take 1 tablet by mouth twice daily lithium carbonate ER 450 mg CR tablet Take 450 mg by mouth twice daily. 0 11/20/2018 Active Comment on above: Take 450 mg by mouth twice daily. perphenazine 2 mg oral tablet (5 sources) [...] y morning and 1 tablet every evening rizatriptan 5 mg oral tablet (11 sources) [...] Problem Classification Problem Date Documented Date Episodic/Chronic Allergic reactions (3 sources) Chronic dermatitis; Translations: [Dermatitis, unspecified] 08-04-2024 Episodic Anxiety disorders (9 sources) Anxiety; Translations: [Anxiety disorder, unspecified] Onset: 05-14-2024 05-14-2024 Chronic Asthma (9 sources) Asthma; Translations: [Unspecified asthma, uncomplicated] Onset: 12-08-2020 05-14-2024 Chronic Coma; stupor; and brain damage (3 sources) Daytime somnolence; Translations: [Somnolence] Episodic Diseases of white blood cells (1 source) Decreased white blood cell count, unspecified; Translations: [Decreased white blood cell count, unspecified] Onset: 02-29-2024 Chronic Disorders of lipid metabolism (3 sources) Dyslipidemia; Translations: [Mixed hyperlipidemia] Onset: 05-05-2024 06-16-2024 Chronic Esophageal disorders (11 sources) Gastroesophageal reflux disease without esophagitis; Translations: [Gastro-esophageal reflux disease without esophagitis] Onset: 12-08-2020 05-14-2024 Chronic Essential hypertension (1 source) Essential (primary) hypertension; Translations: [Essential (primary) hypertension] Onset: 02-29-2024 Chronic Headache; including migraine (9 sources) Migraine; Translations: [Migraine, unspecified, not intractable, without status migrainosus] Onset: 05-14-2024 05-14-2024 Chronic Mood disorders (19 sources) Bipolar disorder; Translations: [Bipolar disorder, unspecified] Onset: 05-14-2024 05-14-2024 Chronic Mycoses (4 sources) Tinea pedis; Translations: [Tinea pedis] 08-04-2024 Episodic Nutritional deficiencies (1 source) Vitamin D deficiency, unspecified; Translations: [Vitamin D deficiency, unspecified] Onset: 11-30-2023 Chronic Other connective tissue disease (5 sources) Other muscle spasm; Translations: [OTHER MUSCLE SPASM] Onset: 09-22-2021 Episodic Other connective tissue disease (4 sources) Pain in toe; Translations: [Pain in right toe(s)] 08-04-2024 Episodic Other nervous system disorders (3 sources) Narcolepsy without cataplexy ; 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] Chronic Other nervous system disorders (9 sources) Narcolepsy; 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] Onset: 05-14-2024 05-14-2024 Chronic Other nervous system disorders (1 source) Other chronic pain; Translations: [Other chronic pain] Onset: 03-08-2024 Chronic Other nervous system disorders (1 source) Chronic pain syndrome; Translations: [Chronic pain syndrome] Onset: 01-23-2024 Chronic Other nervous system disorders (1 source) Enhanced physiological tremor; Translations: [Tremor, unspecified] Episodic Other nervous system disorders (9 sources) Tremor; Translations: [Tremor, unspecified] Onset: 05-14-2024 05-14-2024 Episodic Other nutritional; endocrine; and metabolic disorders (11 sources) Obese class II; Translations: [Obesity, Class II, BMI 35-39.9] Onset: 02-23-2022 05-14-2024 Chronic Other nutritional; endocrine; and metabolic disorders (4 sources) Obesity caused by energy imbalance; Translations: [Morbid (severe) obesity due to excess calories] 06-16-2024 Chronic Other nutritional; endocrine; and metabolic disorders (1 source) Obesity, unspecified; Translations: [Obesity, unspecified] Onset: 02-29-2024 Chronic Other nutritional; endocrine; and metabolic disorders (2 sources) Body mass index 30+ - obesity; Translations: [Body mass index (BMI) 39.0-39.9, adult] 05-23-2024 Chronic Other skin disorders (2 sources) Folliculitis; Translations: [Follicular disorder, unspecified] 05-23-2024 Episodic Residual codes; unclassified (9 sources) Obstructive sleep apnea syndrome; Translations: [Obstructive sleep apnea (adult) (pediatric)] Onset: 02-23-2022 05-14-2024 Chronic Residual codes; unclassified (1 source) Tobacco use; Translations: [Tobacco use] Onset: 05-05-2024 Episodic Spondylosis; intervertebral disc disorders; other back [...] Translations: [Low back pain, unspecified] Onset: 03-08-2024 Past or Other Problems Problem Classification Problem Date Documented Da te Episodic/Chronic Cardiac dysrhythmias (2 sources) Palpitations; Translations: [Tachycardia, unspecified] Onset: 02-29-2024 Episodic Genitourinary symptoms and ill-defined conditions (1 source) Hematuria, unspecified; Translations: [Hematuria, unspecified] Onset: 03-23-2024 Episodic Malaise and fatigue (10 sources) Fatigue; Translations: [Other fatigue] Onset: 02-23-2022 05-14-2024 Episodic Nonspecific chest pain (2 sources) Chest pain, unspecified; Translations: [Chest pain] Onset: 03-23-2024 Episodic Other liver diseases (1 source) Abnormal levels of other serum enzymes; Translations: [Abnormal levels of other serum enzymes] Onset: 03-23-2024 Episodic Other nutritional; endocrine; and metabolic disorders (1 source) Abnormal weight gain; Translations: [Abnormal weight gain] Onset: 11-30-2023 Episodic Other skin disorders (1 source) Acanthosis nigricans; Translations: [Acanthosis nigricans] Onset: 02-29-2024 Episodic Residual codes; unclassified (1 source) Flushing; Translations: [Flushing] Onset: 02-29-2024 Episodic Spondylosis; intervertebral disc disorders; other back problems (12 sources) Cervical disc disorder with radiculopathy, unspecified cervical region; Translations: [Cervicalgia] Onset: 10-13-2021 Episodic Urinary tract infections (1 source) Urinary tract infection, site not specified; Translations: [Urinary tract infection, site not specified] Onset: 03-23-2024 Episodic Results Test Name Value Interpretation Reference Range Facil ity COMPREHENSIVE METABOLIC PANE Mika 05-19-2024 Albumin [Mass/Vol] 4.6 g/dL Normal 3.2-5.3 [facility] Comment on above: Performed By: #### [place], 05561-9, THYR, CBCA, 73737-4 #### [facility] ([id number]) [address], [address] [place] [address] ALP [Catalytic activity/Vol] 78 U/L Normal 39-130 [facility] Comment on above: Performed By: #### C MP, 72739-2, THYR, CBCA, 16213-6 #### [facility] ([id number]) [address], [address] [place] [address] ALT [Catalytic activity/Vol] 85 U/L High 0-31 [facility] Comment on above: Performed By: #### C EVIN, 51481-8, THYR, CBCA, 12515-8 #### [facility] ([id number]) [address], [address] [place] [address] Anion gap [Moles/Vol] 15 mmol/L Normal 5-15 [facility] Comment on above: Performed By: #### C EVIN, 48739-8, THYR, CBCA, 46083-6 #### [facility] ([id number]) [address], [address] [place] [address] AST [Catalytic activity/Vol] 54 U/L High 0-41 [facility] Comment on above: Performed By: #### C MP, 05227-0, THYR, CBCA, 32416-3 #### [facility] ([id number]) [address], [address] [place] [address] Bilirubin [Mass/Vol] 0.6 mg/dL Normal 0.3-1.2 [facility] Comment on above: Performed By: #### C MP, 42219-6, THYR, CBCA, 16767-9 #### [facility] ([id number]) [address], [address] [place] [address] Calcium [Mass/Vol] 9.6 mg/dL Normal 8.5-10.5 [facility] Comment on above: Performed By: #### C EVIN, 00128-5, THYR, CBCA, 49521-6 #### [facility] ([id number]) [address], [facility] [facility] [address] [place] [address] Chloride [Moles/Vol] 102 mmol/L Normal 98-109 [facility] Comment on above: Performed By: #### C EVIN, 74453-2, THYR, CBCA, 48693-2 #### [facility] ([id number]) [address] [address] [place] [address] CO2 [Moles/Vol] 19 mmol/L Low 22-32 [facility] Comment on above: Performed By: #### C EVIN, 82497-9, THYR, CBCA, 69896-4 #### [facility] ([id number]) [address] [address] [place] [address] Creatinine [Mass/Vol] 0.89 mg/dL Normal 0.40-1.00 [facility] Comment on above: Result Comment: METH OD TRACEABLE TO IDMS STANDARD Performed By: #### C EVIN, 60789-3, THYR, CBCA, 27176-5 #### [facility] ([id number]) [address], [facility] [facility] [address] [place] [address] GFR/1.73 sq M.predicted among non-blacks MDRD (S/P/Bld) [Vol rate/Area] 86 mL/min/{1.73_m2} Normal >59 [facility] Comment on above: Result Comment: Reported eGFR is based on the CKD-EPI 2020 equation that does not use a race coefficient. Performed By: #### C EVIN, 36477-9, THYR, CBCA, 00122-2 #### [facility] ([id number]) [address] [address] [place] [address] Glucose [Mass/Vol] 95 mg/dL Normal 65-99 [facility] Comment on above: Performed By: #### C EVIN, 22057-8, THYR, CBCA, 87535-9 #### [facility] ([id number]) [address], [address] [place] [address] Potassium [Moles/Vol] 4.0 mmol/L Normal 3.5-5.0 [facility] Comment on above: Performed By: #### C EVIN, 90356-2, THYR, CBCA, 00814-2 #### [facility] ([id number]) [address], [address] [place] [address] Protein [Mass/Vol] 7.0 g/dL Normal 6.0-8.0 [facility] Comment on above: Performed By: #### Mariam CLEARY, 87075-0, THYR, CBCA, 53858-9 #### [facility] ([id number]) [address], [address] [place] [address] Sodium [Moles/Vol] 136 mmol/L Normal 134-146 [facility] Comment on above: Performed By: #### Mariam CLEARY, 36083-9, THYR, CBCA, 93532-3 #### [facility] ([id number]) [address], [address] [place] [address] Urea nitrogen [Mass/Vol] 10 mg/dL Normal 5-23 [facility] Comment on above: Performed By: #### Mariam CLEARY, 99608-8, THYR, CBCA, 64383-1 #### [facility] ([id number]) [address], [address] [place] [address] DIRECT LDLon 05-19-2024 Cholesterol in LDL [Mass/Vol] 181 mg/dL High <130 [facility] Comment on above: Result Comment: LDL <100 mg/dL - Desirable LDL 130-159 mg/dL - Borderline High Risk LDL >160 mg/dL - High Risk Performed By: #### Mariam CLEARY, 11814-5, THYR, CBCA, 19485-9 #### [facility] ([id number]) [address], [address] [place] [address] LIVER PANELon 05-19-2024 Bilirubin.direct [Mass/Vol] 0.1 mg/dL Normal 0.0-0.4 [facility] Comment on above: Performed By: #### Mariam CLEARY, 66391-6, THYR, CBCA, 61647-6 #### [facility] [facility] ([id number]) [address], [address] [place] [address] Lipid 1996 panelon Cholesterol [Mass/Vol] 276 mg/dL High 150-200 [facility] Comment on above: Performed By: #### Mariam CLEARY, 72473-9, THYR, CBCA, 64016-0 #### [facility] ([id number]) [address], [address] [place] [address] Cholesterol in HDL [Mass/Vol] 42 mg/dL Normal >39 [facility] Comment on above: Result Comment: HDL <40 mg/dL - High Risk HDL > or = 40mg/dL- Desirable HDL >60 mg/dL - Negative Risk Performed By: #### Mariam CLEARY, 25651-0, THYR, CBCA, 29007-0 #### [facility] ([id number]) [address], [address] [place] [address] Cholesterol in VLDL [Mass/Vol] 98 mg/dL High 0-30 [facility] Comment on above: Performed By: #### Mariam CLEARY, 89234-3, THYR, CBCA, 09439-1 #### [facility] ([id number]) [address], [address] [place] [address] CHOLESTEROL:HDL 6.6 High 1.0-5.0 [facility] Comment on above: Performed By: #### C MP, 63598-5, THYR, CBCA, 97633-2 #### [facility] ([id number]) [address], [facility] [facility] [address] [place] [address] LDL (CALC) RESULT NOT REPORTED DUE TO HIGH TRIGLYCERIDE Normal <130 [facility] Comment on above: Performed By: #### [place], 39235-6, THYR, CBCA, 50757-5 #### [facility] ([id number]) [address], [facility] [facility] [address] [place] [address] Triglyceride [Mass/Vol] 488 mg/dL High 27-150 [facility] Comment on above: Performed By: #### C MP, 23311-6, THYR, CBCA, 10660-4 #### [facility] ([id number]) [address] [address] MR LUMBAR SPINE WO CONTon MR LUMBAR [...] Bruce DO on 03/26/2024 1:45 PM Normal [facility] CBC AND AUTO DIFFon 03-23-20 24 ABSOLUTE BASOPHIL 0.0 X10E9/L Normal 0.0-0.2 [facility] Comment on above: Performed By: #### C EVIN, 50150-2, THYR, CBCA, 46617-6 #### [facility] ([id number]) [address] [address] [place] [address] ABSOLUTE NEUTROPHIL 4.7 X10E9/L Normal 1.5-6.6 [facility] Comment on above: Performed By: #### C EVIN, 62671-2, THYR, CBCA, 00868-7 #### [facility] ([id number]) [address] [address] [place] [address] Basophils/100 WBC (Bld) 0.3 % Normal [facility] Comment on above: Performed By: #### C EVIN, 74755-0, THYR, CBCA, 39971-3 #### [facility] ([id number]) [address], [facility] [facility] [address] [place] [address] Eosinophils (Bld) [#/Vol] 0.0 10*3/uL Normal 0.0-0.4 [facility] Comment on above: Performed By: #### C EVIN, 89214-0, THYR, CBCA, 58352-8 #### [facility] ([id number]) [address] [address] [place] [address] Eosinophils/100 WBC (Bld) 0.4 % Normal [facility] Comment on above: Performed By: #### C EVIN, 50061-8, THYR, CBCA, 14582-4 #### [facility] ([id number]) [address] [address] [place] [address] Erythrocyte distribution width (RBC) [Ratio] 13.5 % Normal 11.5-15.0 [facility] Comment on above: Performed By: #### C EVIN, 47456-8, THYR, CBCA, 76392-7 #### [facility] ([id number]) [address] [address] [place] [address] Hematocrit (Bld) [Volume fraction] 44.6 % Normal 35-47 [facility] Comment on above: Performed By: #### C EVIN, 67717-0, THYR, CBCA, 90453-7 #### [facility] ([id number]) [address] [address] [place] [address] Hemoglobin (Bld) [Mass/Vol] 15.6 g/dL High 11.7-15.5 [facility] Comment on above: Performed By: #### C EVIN, 81110-5, THYR, CBCA, 39927-5 #### [facility] ([id number]) [address] [address] [place] [address] Lymphocytes (Bld) [#/Vol] 0.5 10*3/uL Low 1.0-3.5 [facility] Comment on above: Performed By: #### C EVIN, 37455-0, THYR, CBCA, 39261-1 #### [facility] ([id number]) [address] [address] [place] [address] Lymphocytes/100 WBC (Bld) 8.7 % Normal [facility] Comment on above: Performed By: #### C EVIN, 44887-6, THYR, CBCA, 98405-3 #### [facility] ([id number]) [address], [address] [place] [address] MCH (RBC) [Entitic mass] 32.5 pg Normal 27-34 [facility] Comment on above: Performed By: #### C EVIN, 59199-9, THYR, CBCA, 91084-8 #### [facility] ([id number]) [address], [address] [place] [address] MCHC (RBC) [Mass/Vol] 34.9 g/dL Normal 32-36 [facility] Comment on above: Performed By: #### C EVIN, 55279-3, THYR, CBCA, 94927-0 #### [facility] ([id number]) [address], [address] [place] [address] MCV (RBC) [Entitic vol] 93 fL Normal 80-100 [facility] Comment on above: Performed By: #### C EVIN, 14595-3, THYR, CBCA, 62459-4 #### [facility] ([id number]) [address], [address] [place] [address] Monocytes (Bld) [#/Vol] 0.0 10*3/uL Normal 0-0.9 [facility] Comment on above: Performed By: #### C EVIN, 32607-9, THYR, CBCA, 45932-6 #### [facility] ([id number]) [address] [address] [place] [address] Monocytes/100 WBC (Bld) 0.6 % Normal [facility] Comment on above: Performed By: #### C EVIN, 04231-3, THYR, CBCA, 42719-6 #### [facility] ([id number]) [address] [address] [place] [address] Neutrophils/100 WBC (Bld) 90.0 % Normal [facility] Comment on above: Performed By: #### C EVIN, 37454-6, THYR, CBCA, 98788-4 #### [facility] ([id number]) [address] [address] [place] [address] Platelet mean volume (Bld) [Entitic vol] 7.2 fL Normal 7-12 [facility] Comment on above: Performed By: #### C EVIN, 43368-1, THYR, CBCA, 53332-6 #### [facility] ([id number]) [address] [address] [place] [address] Platelets (Bld) [#/Vol] 286 10*3/uL Normal 150-450 [facility] Comment on above: Performed By: #### C EVIN, 34707-4, THYR, CBCA, 53925-6 #### [facility] ([id number]) [address] [address] [place] [address] RBC COUNT 4.80 X10E12/L Normal 3.80-5.20 [facility] Comment on above: Performed By: #### C EVIN, 72216-8, THYR, CBCA, 69815-6 #### [facility] ([id number]) [address] [address] [place] [address] WBC (Bld) [#/Vol] 5.3 10*3/uL Normal 4.0-11.0 [facility] Comment on above: Performed By: #### C EVIN, 27820-1, THYR, CBCA, 09113-1 #### [facility] ([id number]) [address], [address] [place] [address] COMPREHENSIVE METABOLIC PANE Mika 03-23-2024 Albumin [Mass/Vol] 4.2 g/dL Normal 3.2-5.3 [facility] Comment on above: Performed By: #### C EVIN, 31700-5, THYR, CBCA, 09292-9 #### [facility] ([id number]) [address], [address] [place] [address] ALP [Catalytic activity/Vol] 115 U/L Normal 39-130 [facility] Comment on above: Performed By: #### C EVIN, 98219-3, THYR, CBCA, 10219-9 #### [facility] ([id number]) [address], [address] [place] [address] ALT [Catalytic activity/Vol] 81 U/L High 0-31 [facility] Comment on above: Performed By: #### C EVIN, 43451-4, THYR, CBCA, 24506-5 #### [facility] ([id number]) [address], [address] [place] [address] Anion gap [Moles/Vol] 14 mmol/L Normal 5-15 [facility] Comment on above: Performed By: #### C EVIN, 46841-9, THYR, CBCA, 23270-9 #### [facility] ([id number]) [address], [address] [place] [address] AST [Catalytic activity/Vol] 48 U/L High 0-41 [facility] Comment on above: Performed By: #### C EVIN, 32262-0, THYR, CBCA, 37639-5 #### [facility] ([id number]) [address], [address] [place] [address] Bilirubin [Mass/Vol] 1.3 mg/dL High 0.3-1.2 [facility] Comment on above: Performed By: #### C EVIN, 16079-6, THYR, CBCA, 38640-0 #### [facility] ([id number]) [address], [address] [place] [address] Calcium [Mass/Vol] 9.3 mg/dL Normal 8.5-10.5 [facility] Comment on above: Performed By: #### C EVIN, 00956-3, THYR, CBCA, 24035-0 #### [facility] ([id number]) [address], [address] [place] [address] Chloride [Moles/Vol] 97 mmol/L Low 98-109 [facility] Comment on above: Performed By: #### C EVIN, 70054-1, THYR, CBCA, 01396-4 #### [facility] ([id number]) [address], [address] [place] [address] CO2 [Moles/Vol] 22 mmol/L Normal 22-32 [facility] Comment on above: Performed By: #### C EVIN, 71846-8, THYR, CBCA, 95704-7 #### [facility] ([id number]) [address], [address] [place] [address] Creatinine [Mass/Vol] 0.91 mg/dL Normal 0.40-1.00 [facility] Comment on above: Result Comment: METH OD TRACEABLE TO IDMS STANDARD Performed By: #### C EVIN, 04245-0, THYR, CBCA, 35046-2 #### [facility] ([id number]) [address], [address] [place] [address] GFR/1.73 sq M.predicted among non-blacks MDRD (S/P/Bld) [Vol rate/Area] 83 mL/min/{1.73_m2} Normal >59 [facility] Comment on above: Result Comment: Reported eGFR is based on the CKD-EPI 2020 equation that does not use a race coefficient. Performed By: #### C EVIN, 59285-6, THYR, CBCA, 60906-2 #### [facility] ([id number]) [address], [address] [place] [address] Glucose [Mass/Vol] 110 mg/dL High 65-99 [facility] Comment on above: Performed By: #### C EVIN, 86761-4, THYR, CBCA, 49924-8 #### [facility] ([id number]) [address], [address] [place] [address] Potassium [Moles/Vol] 3.8 mmol/L Normal 3.5-5.0 [facility] Comment on above: Performed By: #### C MP, 30924-1, THYR, CBCA, 54290-7 #### [facility] ([id number]) [address], [address] [place] [address] Protein [Mass/Vol] 8.0 g/dL Normal 6.0-8.0 [facility] Comment on above: Performed By: #### Mariam CLEARY, 88985-0, THYR, CBCA, 81504-2 #### [facility] ([id number]) [address], [address] [place] [address] Sodium [Moles/Vol] 133 mmol/L Low 134-146 [facility] Comment on above: Performed By: #### C EVIN, 29137-6, THYR, CBCA, 60833-8 #### [facility] ([id number]) [address], [address] [place] [address] Urea nitrogen [Mass/Vol] 13 mg/dL Normal 5-23 [facility] Comment on above: Performed By: #### C EVIN, 78806-5, THYR, CBCA, 15013-9 #### [facility] ([id number]) [address], [address] [place] [address] CT CTA CHESTon 03-23-2024 CT CTA CHEST [...] Chaparro MD on 03/23/2024 10:52 PM Normal [facility] Fibrin D-dimer DDU (PPP) [Ma ss/Vol]on 03-23-2024 D DIMER 336 ng/mL DDU High <255 [facility] Comment on above: Result Comment: Results >=255ng/mL DDU: Results may be indicative of the presence of VTE. The use of the Wells score and further diagnostic tests should be considered. Elevated D-Dimer levels can also be associated with DIC, neoplasm, , trauma and liver disease. Elevated levels of rheumatoid factor may lead to an overestimation of the D-Dimer level. Performed By: #### C MP, 88267-4, THYR, CBCA, 23808-1 #### [facility] ([id number]) [address], [address] [place] [address] HCG ( test) Ql (U)o n 03-23-2024 Beta HCG ( test) Ql (U) Negative Normal NEG [facility] Comment on above: Performed By: #### C EVIN, 10258-0, THYR, CBCA, 78688-8 #### [facility] ([id number]) [address], [address] [place] [address] LIPASEon 03-23-2024 Lipase [Catalytic activity/Vol] 30 U/L Normal 17-40 [facility] Comment on above: Performed By: #### C EVIN, 39529-0, THYR, CBCA, 36904-3 #### [facility] ([id number]) [address], [address] [place] [address] THYROID PROFILEon 03-23-2024 Free T4 [Mass/Vol] 0.74 ng/dL Normal 0.61-1.60 [facility] Comment on above: Performed By: #### Mariam CLEARY, 86840-3, THYR, CBCA, 00420-3 #### [facility] ([id number]) [address], [address] [place] [address] TSH 1.64 uIU/mL Normal 0.49-4.67 [facility] Comment on above: Performed By: #### Mariam CLEARY, 32298-9, THYR, CBCA, 18389-7 #### [facility] ([id number]) [address], [address] [place] [address] Troponin I.cardiac High sens itivity method [Mass/Vol]on 03-23-2024 1 HOUR TROP I, HIGH SENSITIVITY 3 ng/L Normal <16 [facility] Comment on above: Performed By: #### Mariam CLEARY, 76882-4, THYR, CBCA, 71597-8 #### [facility] ([id number]) [address] [place] [address] TROPONIN I, HIGH SENSITIVITY 2 ng/L Normal <16 [facility] Comment on above: Performed By: #### C EVIN, 32746-8, THYR, CBCA, 67387-7 #### [facility] ([id number]) [address] [place] [address] URINE CULTUREon 03-23-2024 Bacteria identified Cx Nom [...] TOBRAMYCIN S <=1 F TRIMETH/SULFAMETHOXAZO LE S <=/19 F Susceptible [facility] Comment on above: Performed By: #### C EVIN, 69400-5, THYR, CBCA, 33531-1 #### [facility] ([id number]) [address] [place] [address] URN MACROSCOPIC NURon 2023 BILIRUBIN LUL Negative Normal NEG [facility] Comment on above: Performed By: #### C EVIN, 97013-6, THYR, CBCA, 40835-6 #### [facility] ([id number]) [address], [address] [place] [address] BLOOD/HGB LUL Small Abnormal NEG [facility] Comment on above: Performed By: #### C EVIN, 34741-4, THYR, CBCA, 72855-7 #### [facility] ([id number]) [address] [place] [address] GLUCOSE LUL Negative Normal NEG [facility] Comment on above: Performed By: #### C EVIN, 63536-6, THYR, CBCA, 16719-7 #### [facility] ([id number]) [address], [address] [place] [address] KETONES LUL Negative Normal NEG [facility] Comment on above: Performed By: #### C EVIN, 92279-0, THYR, CBCA, 39053-9 #### [facility] ([id number]) [address], [address] [place] [address] LEUKOCYTE ESTERASE LUL Small Abnormal NEG [facility] Comment on above: Performed By: #### C EVIN, 22392-8, THYR, CBCA, 28102-8 #### [facility] ([id number]) [address], [address] [place] [address] NITRITE LUL Negative Normal NEG [facility] Comment on above: Performed By: #### Mariam CLEARY, 13444-7, THYR, CBCA, 74530-1 #### [facility] ([id number]) [address], [address] [place] [address] PH LUL 5.5 Normal 5.0-8.5 [facility] Comment on above: Performed By: #### Mariam CLEARY, 31371-3, THYR, CBCA, 04293-5 #### [facility] ([id number]) [address] [place] [address] PROTEIN LUL Negative Normal NEG [facility] Comment on above: Performed By: #### Mariam CLEARY, 55437-1, THYR, CBCA, 37212-5 #### [facility] ([id number]) [address] [place] [address] SPECIFIC GRAVITY LUL 1.010 Normal 1.003-1.035 [facility] Comment on above: Performed By: #### Mariam CLEARY, 25200-9, THYR, CBCA, 29300-8 #### [facility] ([id number]) [address] [place] [address] UROBILINOGEN LUL 0.2 eu/dL Normal <1.1 [facility] Comment on above: Performed By: #### C MP, 69175-0, THYR, CBCA, 32607-1 #### [facility] ([id number]) [address] [place] [address] CBC AND AUTO DIFFon 02-29-20 24 ABSOLUTE BASOPHIL 0.0 X10E9/L Normal 0.0-0.2 [facility] Comment on above: Performed By: #### C BCA, HA1C, THYR, 74958-0 #### [facility] ([id number]) [address] [place] [address] ABSOLUTE NEUTROPHIL 2.8 X10E9/L Normal 1.5-6.6 [facility] Comment on above: Performed By: #### C BCA, HA1C, THYR, 21105-4 #### [facility] ([id number]) [address], [address] [place] [address] Basophils/100 WBC (Bld) 0.7 % Normal [facility] Comment on above: Performed By: #### C BCA, HA1C, THYR, 02775-3 #### [facility] ([id number]) [address], [address] [place] [address] Eosinophils (Bld) [#/Vol] 0.1 10*3/uL Normal 0.0-0.4 [facility] Comment on above: Performed By: #### C BCA, HA1C, THYR, 03304-9 #### [facility] ([id number]) [address] [place] [address] Eosinophils/100 WBC (Bld) 2.1 % Normal [facility] Comment on above: Performed By: #### C BCA, HA1C, THYR, 72749-0 #### [facility] ([id number]) [address] [place] [address] Erythrocyte distribution width (RBC) [Ratio] 13.7 % Normal 11.5-15.0 [facility] Comment on above: Performed By: #### C BCA, HA1C, THYR, 06583-6 #### [facility] ([id number]) [address] [address] [place] [address] Hematocrit (Bld) [Volume fraction] 45.0 % Normal 35-47 [facility] Comment on above: Performed By: #### C BCA, HA1C, THYR, 01640-1 #### [facility] ([id number]) [address] [address] Hemoglobin (Bld) [Mass/Vol] 15.5 g/dL Normal 11.7-15.5 [facility] Comment on above: Performed By: #### C BCA, HA1C, THYR, 04229-9 #### [facility] ([id number]) [address] [address] Lymphocytes (Bld) [#/Vol] 1.4 10*3/uL Normal 1.0-3.5 [facility] Comment on above: Performed By: #### C BCA, HA1C, THYR, 38359-5 #### [facility] ([id number]) [address] [address] Lymphocytes/100 WBC (Bld) 28.9 % Normal [facility] Comment on above: Performed By: #### C BCA, HA1C, THYR, 97091-3 #### [facility] ([id number]) [address] [address] [place] [address] MCH (RBC) [Entitic mass] 32.0 pg Normal 27-34 [facility] Comment on above: Performed By: #### C BCA, HA1C, THYR, 78946-1 #### [facility] ([id number]) [address] [address] [place] [address] MCHC (RBC) [Mass/Vol] 34.3 g/dL Normal 32-36 [facility] Comment on above: Performed By: #### C BCA, HA1C, THYR, 28794-4 #### [facility] ([id number]) [address], [facility] [address] [place] [address] MCV (RBC) [Entitic vol] 93 fL Normal 80-100 [facility] Comment on above: Performed By: #### C BCA, HA1C, THYR, 08274-4 #### [facility] ([id number]) [address] [address] [place] [address] Monocytes (Bld) [#/Vol] 0.4 10*3/uL Normal 0-0.9 [facility] Comment on above: Performed By: #### Mariam BCA, HA1C, THYR, 88263-4 #### [facility] ([id number]) [address], [facility] [address] [place] [address] Monocytes/100 WBC (Bld) 8.4 % Normal [facility] Comment on above: Performed By: #### Mariam BCA, HA1C, THYR, 97831-0 #### [facility] ([id number]) [address] [address] [place] [address] Neutrophils/100 WBC (Bld) 59.9 % Normal [facility] Comment on above: Performed By: #### Mariam BCA, HA1C, THYR, 19224-4 #### [facility] ([id number]) [address] [place] [address] Platelet mean volume (Bld) [Entitic vol] 8.5 fL Normal 7-12 [facility] Comment on above: Performed By: #### Mariam BCA, HA1C, THYR, 86497-4 #### [facility] ([id number]) [address] [place] [address] Platelets (Bld) [#/Vol] 272 10*3/uL Normal 150-450 [facility] Comment on above: Performed By: #### C JORGE L, HA1C, THYR, 44915-9 #### [facility] ([id number]) [address] [address] [place] [address] RBC COUNT 4.83 X10E12/L Normal 3.80-5.20 [facility] Comment on above: Performed By: #### C BCA, HA1C, THYR, 79019-3 #### [facility] ([id number]) [address] [address] [place] [address] WBC (Bld) [#/Vol] 4.7 10*3/uL Normal 4.0-11.0 [facility] Comment on above: Performed By: #### C BCA, HA1C, THYR, 00521-3 #### [facility] ([id number]) [address] [address] [place] [address] HGB A1C (GLYCO-HGB)on 2023 Glucose [Mass/Vol] 97 mg/dL Normal [facility] Comment on above: Performed By: #### C BCA, HA1C, THYR, 14047-8 #### [facility] ([id number]) [address] [address] HbA1c (Bld) [Mass fraction] 5.0 % Normal 4.4-5.6 [facility] Comment on above: Result Comment: NOTE ADA Guidelines Result HgbA1c Normal : less than 5.7 % Prediabetes : 5.7 % to 6.4 % Diabetes : > 6.4 % Use with caution in patients with abnormal hemoglobin variants as the half-life of red blood cells and in vivo glycation rates are affected. Performed By: #### C BCA, HA1C, THYR, 79036-3 #### [facility] ([id number]) [address], [address] [place] [address] THYROID PROFILEon 02-29-2024 Free T4 [Mass/Vol] 0.67 ng/dL Normal 0.61-1.60 [facility] Comment on above: Performed By: #### C BCA, HA1C, THYR, 50763-7 #### [facility] ([id number]) [address] [facility] [facility] [address] [place] [address] TSH 1.84 uIU/mL Normal 0.49-4.67 [facility] Comment on above: Performed By: #### C BCA, HA1C, THYR, 68454-1 #### [facility] ([id number]) [address] [address] [place] [address] Vitamin D+Metabolites [Mass/ Vol]on 02-29-2024 VITAMIN D 25 HYD TOT 32.3 ng/mL Normal 30-100 [facility] Comment on above: Result Comment: Vitamin D status 25 [place] Vitamin D Deficiency <20 ng/mL Insufficiency 20-29 ng/mL Sufficiency 30-100 ng/mL Toxicity >100 ng/mL NOTE: A pediatric reference range has not been established by the cloud engagement partner of this kit. The [place] [employer] recommends a Vitamin D level of = or >20ng/mL in infants and children. Performed By: #### [place], [address]-3, THYR, CBCA, 16005-2 #### [facility] ([id number]) [address] [address] [place] [address] XR LUMBAR SPINE AP, LATERAL, FLEXION AND [...] Chun MD on 12/03/2023 10:04 AM Normal [facility] XR SPINE CERVICAL 3 VWS OR L [...] Jay MD on 12/02/2023 7:06 AM Normal [facility] CBC AND AUTO DIFFon 11-30-19 ABSOLUTE BASOPHIL 0.0 X10E9/L Normal 0.0-0.2 [facility] Comment on above: Performed By: #### C EVIN, 40138-4, THYR, CBCA, 81062-4 #### [facility] ([id number]) [address], [address] [place] [address] ABSOLUTE NEUTROPHIL 2.5 X10E9/L Normal 1.5-6.6 [facility] Comment on above: Performed By: #### C EVIN, 22028-0, THYR, CBCA, 06771-9 #### [facility] ([id number]) [address], [address] [place] [address] Basophils/100 WBC (Bld) 0.5 % Normal [facility] Comment on above: Performed By: #### C EVIN, 70420-2, THYR, CBCA, 23423-2 #### [facility] ([id number]) [address], [address] [place] [address] Eosinophils (Bld) [#/Vol] 0.0 10*3/uL Normal 0.0-0.4 [facility] Comment on above: Performed By: #### C EVIN, 58930-5, THYR, CBCA, 79469-5 #### [facility] ([id number]) [address], [facility] [facility] [address] [place] [address] Eosinophils/100 WBC (Bld) 1.2 % Normal [facility] Comment on above: Performed By: #### C EVIN, 58841-6, THYR, CBCA, 24602-2 #### [facility] ([id number]) [address], [address] [place] [address] Erythrocyte distribution width (RBC) [Ratio] 13.7 % Normal 11.5-15.0 [facility] Comment on above: Performed By: #### C EVIN, 07612-7, THYR, CBCA, 57830-3 #### [facility] ([id number]) [address], [address] [place] [address] Hematocrit (Bld) [Volume fraction] 43.0 % Normal 35-47 [facility] Comment on above: Performed By: #### C EVIN, 95534-7, THYR, CBCA, 68119-8 #### [facility] ([id number]) [address] [address] [place] [address] Hemoglobin (Bld) [Mass/Vol] 15.0 g/dL Normal 11.7-15.5 [facility] Comment on above: Performed By: #### C EVIN, 05057-1, THYR, CBCA, 80749-0 #### [facility] ([id number]) [address] [address] [place] [address] Lymphocytes (Bld) [#/Vol] 0.9 10*3/uL Low 1.0-3.5 [facility] Comment on above: Performed By: #### C EVIN, 00140-0, THYR, CBCA, 40984-2 #### [facility] ([id number]) [address] [address] Lymphocytes/100 WBC (Bld) 23.6 % Normal [facility] Comment on above: Performed By: #### Mariam CLEARY, 80321-9, THYR, CBCA, 93542-7 #### [facility] ([id number]) [address] [address] [place] [address] MCH (RBC) [Entitic mass] 32.2 pg Normal 27-34 [facility] Comment on above: Performed By: #### Mariam CLEARY, 85811-8, THYR, CBCA, 84484-2 #### [facility] ([id number]) [address] [address] [place] [address] MCHC (RBC) [Mass/Vol] 35.0 g/dL Normal 32-36 [facility] Comment on above: Performed By: #### Mariam CLEARY, 69309-0, THYR, CBCA, 69666-4 #### [facility] ([id number]) [address] [address] [place] [address] MCV (RBC) [Entitic vol] 92 fL Normal 80-100 [facility] Comment on above: Performed By: #### Mariam CLEARY, 46563-5, THYR, CBCA, 37041-8 #### [facility] ([id number]) [address] [address] [place] [address] Monocytes (Bld) [#/Vol] 0.3 10*3/uL Normal 0-0.9 [facility] Comment on above: Performed By: #### C MP, 67562-0, THYR, CBCA, 18582-4 #### [facility] ([id number]) [address], [address] [place] [address] Monocytes/100 WBC (Bld) 7.0 % Normal [facility] Comment on above: Performed By: #### C MP, 13676-8, THYR, CBCA, 43052-6 #### [facility] ([id number]) [address], [address] [place] [address] Neutrophils/100 WBC (Bld) 67.7 % Normal [facility] Comment on above: Performed By: #### C MP, 54099-7, THYR, CBCA, 95324-6 #### [facility] ([id number]) [address], [address] [place] [address] Platelet mean volume (Bld) [Entitic vol] 8.7 fL Normal 7-12 [facility] Comment on above: Performed By: #### C MP, 76405-7, THYR, CBCA, 00553-4 #### [facility] ([id number]) [address], [address] [place] [address] Platelets (Bld) [#/Vol] 186 10*3/uL Normal 150-450 [facility] Comment on above: Performed By: #### C MP, 79951-4, THYR, CBCA, 89596-2 #### [facility] ([id number]) [address], [address] [place] [address] RBC COUNT 4.67 X10E12/L Normal 3.80-5.20 [facility] Comment on above: Performed By: #### C MP, 24309-0, THYR, CBCA, 67615-3 #### [facility] ([id number]) [address], [address] [place] [address] WBC (Bld) [#/Vol] 3.7 10*3/uL Low 4.0-11.0 [facility] Comment on above: Performed By: #### C MP, 88281-8, THYR, CBCA, 02216-5 #### [facility] ([id number]) [address], [address] [place] [address] COMPREHENSIVE METABOLIC PANE Mika 11-30-2023 Albumin [Mass/Vol] 4.4 g/dL Normal 3.2-5.3 [facility] Comment on above: Performed By: #### C MP, 50189-0, THYR, CBCA, 19179-9 #### [facility] ([id number]) [address], [address] [place] [address] ALP [Catalytic activity/Vol] 65 U/L Normal 39-130 [facility] Comment on above: Performed By: #### C MP, 13209-9, THYR, CBCA, 29147-6 #### [facility] ([id number]) [address], [address] [place] [address] ALT [Catalytic activity/Vol] 59 U/L High 0-31 [facility] Comment on above: Performed By: #### C MP, 56444-6, THYR, CBCA, 91163-7 #### [facility] ([id number]) [address], [address] [place] [address] Anion gap [Moles/Vol] 6 mmol/L Normal 5-15 [facility] Comment on above: Performed By: #### C MP, 21209-6, THYR, CBCA, 46525-6 #### [facility] ([id number]) [address], [address] [place] [address] AST [Catalytic activity/Vol] 31 U/L Normal 0-41 [facility] Comment on above: Performed By: #### C MP, 57114-5, THYR, CBCA, 93146-9 #### [facility] ([id number]) [address], [address] [place] [address] Bilirubin [Mass/Vol] 0.8 mg/dL Normal 0.3-1.2 [facility] Comment on above: Performed By: #### C MP, 30075-8, THYR, CBCA, 31327-3 #### [facility] ([id number]) [address] [address] [place] [address] Calcium [Mass/Vol] 9.1 mg/dL Normal 8.5-10.5 [facility] Comment on above: Performed By: #### C MP, 22946-2, THYR, CBCA, 62998-9 #### [facility] ([id number]) [address] [address] [place] [address] Chloride [Moles/Vol] 103 mmol/L Normal 98-109 [facility] Comment on above: Performed By: #### C EVIN, 76499-7, THYR, CBCA, 87389-2 #### [facility] ([id number]) [address] [address] [place] [address] CO2 [Moles/Vol] 28 mmol/L Normal 22-32 [facility] Comment on above: Performed By: #### C EVIN, 94145-4, THYR, CBCA, 92659-9 #### [facility] ([id number]) [address] [address] [place] [address] Creatinine [Mass/Vol] 0.86 mg/dL Normal 0.40-1.00 [facility] Comment on above: Result Comment: METH OD TRACEABLE TO IDMS STANDARD Performed By: #### C MP, 14274-5, THYR, CBCA, 64867-5 #### [facility] ([id number]) [address] [address] [place] [address] GFR/1.73 sq M.predicted among non-blacks MDRD (S/P/Bld) [Vol rate/Area] 89 mL/min/{1.73_m2} Normal >59 [facility] Comment on above: Result Comment: Reported eGFR is based on the CKD-EPI 2020 equation that does not use a race coefficient. Performed By: #### C EVIN, 84581-8, THYR, CBCA, 08151-6 #### [facility] ([id number]) [address], [address] [place] [address] Glucose [Mass/Vol] 97 mg/dL Normal 65-99 [facility] Comment on above: Performed By: #### Mariam CLEARY, 60587-8, THYR, CBCA, 63314-0 #### [facility] ([id number]) [address], [address] [place] [address] Potassium [Moles/Vol] 3.8 mmol/L Normal 3.5-5.0 [facility] Comment on above: Performed By: #### C EVIN, 48793-7, THYR, CBCA, 08104-4 #### [facility] ([id number]) [address], [address] [place] [address] Protein [Mass/Vol] 6.6 g/dL Normal 6.0-8.0 [facility] Comment on above: Performed By: #### Mariam CLEARY, 73459-6, THYR, CBCA, 98715-4 #### [facility] ([id number]) [address], [address] [place] [address] Sodium [Moles/Vol] 137 mmol/L Normal 134-146 [facility] Comment on above: Performed By: #### C EVIN, 26521-6, THYR, CBCA, 82445-2 #### [facility] ([id number]) [address], [address] [place] [address] Urea nitrogen [Mass/Vol] 9 mg/dL Normal 5-23 [facility] Comment on above: Performed By: #### Mariam CLEARY, 97878-7, THYR, CBCA, 65341-6 #### [facility] ([id number]) [address], [address] [place] [address] Lipid 1996 panelon 4 Cholesterol [Mass/Vol] 236 mg/dL High 150-200 [facility] Comment on above: Performed By: #### Mariam CLEARY, 99210-9, THYR, CBCA, 30245-9 #### [facility] ([id number]) [address], [address] [place] [address] Cholesterol in HDL [Mass/Vol] 48 mg/dL Normal >39 [facility] Comment on above: Result Comment: HDL <40 mg/dL - High Risk HDL > or = 40mg/dL- Desirable HDL >60 mg/dL - Negative Risk Performed By: #### Mariam CLEARY, 05918-1, THYR, CBCA, 94595-5 #### [facility] ([id number]) [address], [address] [place] [address] Cholesterol in LDL [Mass/Vol] 124 mg/dL Normal <130 [facility] Comment on above: Result Comment: LDL <100 mg/dL - Desirable LDL >160 mg/dL - High Risk Performed By: #### Mariam CLEARY, 95184-7, THYR, CBCA, 84721-7 #### [facility] ([id number]) [address], [address] [place] [address] Cholesterol in VLDL [Mass/Vol] 64 mg/dL High 0-30 [facility] Comment on above: Performed By: #### C EVIN, 08715-2, THYR, CBCA, 82339-5 #### [facility] ([id number]) [address], [address] [place] [address] CHOLESTEROL:HDL 4.9 Normal 1.0-5.0 [facility] Comment on above: Performed By: #### Mariam CLEARY, 08116-0, THYR, CBCA, 07238-5 #### [facility] ([id number]) [address], [address] [place] [address] Triglyceride [Mass/Vol] 318 mg/dL High 27-150 [facility] Comment on above: Performed By: #### C EVIN, 93808-1, THYR, CBCA, 27303-9 #### [facility] ([id number]) [address], [address] [place] [address] THYROID PROFILEon 11-30-2023 Free T4 [Mass/Vol] 0.62 ng/dL Normal 0.61-1.60 [facility] Comment on above: Performed By: #### Mariam CLEARY, 37356-1, THYR, CBCA, 47677-3 #### [facility] ([id number]) [address], [address] [place] [address] TSH 0.97 uIU/mL Normal 0.49-4.67 [facility] Comment on above: Performed By: #### Mariam CLEARY, 48973-6, THYR, CBCA, 14892-8 #### [facility] ([id number]) [address], [address] [place] [address] Vitamin D+Metabolites [Mass/ Vol]on 11-30-2023 VITAMIN D 25 HYD TOT 25.5 ng/mL Low 30-100 [facility] Comment on above: Result Comment: Vitamin D status 25 [place] Vitamin D Deficiency <20 ng/mL Insufficiency 20-29 ng/mL Sufficiency 30-100 ng/mL Toxicity >100 ng/mL NOTE: A pediatric reference range has not been established by the cloud engagement partner of this kit. The [place] [employer] recommends a Vitamin D level of = or >20ng/mL in infants and children. Performed By: #### C MP, 86144-3, THYR, CBCA, 17604-1 #### [facility] ([id number]) [address] [place] [address], [address] [place] [address] Covid-19 PCR (CVDTB)on 09-11 SARS-CoV-2 (COVID-19) RNA MEGAN+probe Ql (Unsp spec) Not detected Normal NOT DETECTED [facility] Comment on above: Result Comment: This test is not yet approved or cleared by the [place] FDA. When there are no FDA-approved or cleared tests available, and other criteria are met, FDA can make tests available under an emergency access mechanism called an Emergency Use Authorization (EUA). The EUA for this test is supported by the Comptroller of Health and Human Service's (HHS's) declaration [...] SARS-CoV-2. Performed By: #### C VDTBH #### [facility] [address] [place] [address] Dr. Adis Warren Covid-19 PCR (CVDTBH)on 09-11 SARS-CoV-2 (COVID-19) RNA MEGAN+probe Ql (Unsp spec) Not detected Normal NOT DETECTED [facility] Comment on above: Result Comment: This test is not yet approved or cleared by the [place] FDA. When there are no FDA-approved or cleared tests available, and other criteria are met, FDA can make tests available under an emergency access mechanism called an Emergency Use Authorization (EUA). The EUA for this test is supported by the [place] of Health and Human Service's (HHS's) declaration [...] consistent with SARS-CoV-2. Performed By: #### C [facility] #### [facility] [address] [place] [address] Dr. Adis Warren OBSOLETEon 07-04-2021 OBSOLETE Refill (ELLIWIL) MARITA MESSINA ([id number]) 1985 F Date Time Provider Department 07/04/21 [...] Encounter Status:Closed by RAYMOND MEDINA on 07/05/21 [facility] OBSOLETEon 05-27-2021 OBSOLETE Refill ([facility]) MARITA MESSINA ([id number]) 1985 F Date Time Provider Department 05/27/21 RAYMOND MEDINA [facility] During your visit today, we recorded the following information about you: Ashtyn Ana Bazzi 05/28/2021 8:05 AM Signed Please see pended medication Pharmacy linked. Last ordered 01/21/2020. Ashtyn Perez Rose Mary Allergies As of Date: 05/27/2021 (No Known [...] Encounter Status:Closed by RAYMOND MEDINA on 05/30/21 [facility] OBSOLETEon 04-26-2021 OBSOLETE Refill ([facility]) MARITA MESSINA ([id number]) 1985 F Date Time Provider Department 04/26/21 RAYMOND MEDINA NF During your visit today, we recorded the [...] Status:Closed by RAYMOND MEDINA on 04/27/21 Normal [facility] Coding Summary.on 05-31-2019 Coding Summary. CODING DATE: 05/31/2019 FINAL [facility] STATUS: Home (Routine DC) PAYOR: Medicaid EA DESCRIPTION 0390 LEVEL I PATHOLOGY ADMIT DX: REASON FOR VISIT DX: R87.610 Atypical squamous cells of undetermined significance on cytologic smear of cervix (ASC-US) FINAL DX: PRINCIPAL: N87.9 Dysplasia of cervix uteri, unspecified SECONDARY: R87.810 Cervical high risk human papillomavirus (HPV) DNA test positive [facility] ALMAT PROC [facility] STAT DESCRIPTION DOCTOR NAME DATE NOTE: The code number assigned matches the documented diagnosis and / or procedure in the patient's chart. However, the narrative phrase printed from the coding software may appear abbreviated, or result in slightly different terminology. Coded By: Prachi Andres Date Saved: 05/31/2019 06:25 am [facility] Gynecology Office/Clinic Not freddie 05-20-2019 [...] and next steps Ordered: Colposcopy with biopsy 20294 Pathology Tissue Exam Pathology Tissue Exam Follow-up With When Contact Information She BINGHAM CNP In 1 year [email or web address] Additional Instructions: She BINGHAM CNP Only if needed [email or web address] Additional Instructions: Problem List/Past Medical History Ongoing [...] 2: Father and Grandparent. Hyperlipidemia: Father. Normal [facility] Comment on above: Result Comment: Elec tronically Signed By: She BINGHAM CNP.jeanie\Date and Time Signed: 05/20/19 14:48 EDT Coding Summary.on 05-06-2019 Coding Summary. CODING DATE: 05/06/2019 FINAL [facility] STATUS: Home ([facility]) PAYOR: Medicaid EA DESCRIPTION 0392 PAP SMEARS 0397 LEVEL II [...] CphT Date Saved: 05/06/2019 09:14 am Normal [facility] PAP [id number] 05-05-2019 Cytology report Cyto stain Doc (Cvx/Vag) Note Abnormal [facility] Comment on above: Result Comment: TEST S RESULT FLAG UNITS REF RANGE LAB Clinician Provided Cytology Information Source.............Cervix Other..............IUD No. of containers..01 ThinPrep Vial DIAGNOSIS: [A] 01 EPITHELIAL CELL ABNORMALITY. ATYPICAL SQUAMOUS CELLS OF UNDETERMINED SIGNIFICANCE (ASC-US). 01 Satisfactory for evaluation. Endocervical and/or squamous metaplastic cells (endocervical component) are present. 01 Maricarmen Stovall, Bellperson (ASCP) 01 Jennifer Lopes MD, Pathologist 01 [...] <-Panic Low,>-Panic High,A-Abnormal,AA-Critical Abnormal Performed at: [address] [place] [address] Soraya Cabrera MD, Performed By: #### 0 [id number] #### [facility] [address] [place] [address] HPV 16+18+31+33+35+39+4 5+51+52+56+58+59+68 DNA Probe+sig amp Ql (Cvx) Positive Abnormal Negative [facility] Comment on above: Result Comment: This high-risk HPV test detects thirteen high- risk types (16/18/31/33/35/39/45/51/52/56/58/59/68) without differentiation. Performed at: [facility] [address] [facility] [place], [place] [id number] MD Rick Lira Performed at: =[facility] [address] [facility], [place] [id number] MD Rick Lira Performed By: #### 1 [id number], [id number] #### [facility] [address] [place] [address] Physician Jennifer Crabtree 019 Pathologist review Noe (Unsp spec) [Interp] Note [facility] Comment on above: Result Comment: TEST S RESULT FLAG UNITS REF RANGE LAB Physician Read Pap Note 01 Performed FLAG LEGEND: L-Low Normal,H-High Normal,LL-Alert Low,HH-Alert High <-Panic Low,>-Panic High,A-Abnormal,AA-Critical Abnormal Performed at: 01 [facility] [address] [facility] [place] [address] Soraya Cabrera MD, Performed at: [facility] [address] [place] [id number] MD Rick Lira Performed By: #### 1 [id number], [id number] #### [facility] [address] [place] [address] Gynecology Office/Clinic Not freddie 04-29-2019 Gynecology Office/Clinic [...] results Ordered: Office Visit Level 3 Est 55069 PAP [id number] w/HPV HR US Pelvis Non-OB Complete 2. Pelvic pain (R10.2: Pelvic and perineal pain) US ordered, will fax to [facility] Ordered: Office Visit Level 3 Est 21711 US Pelvis Non-OB Complete Visit for routine oral surgery physician exam (Z01.419: Encounter for gynecological examination (general) [...] Preventive Med 18 to 39 years Est 44419 Follow-up No qualifying data available Problem List/Past [...] 2: Father and Grandparent. Hyperlipidemia: Father. Normal [facility] Comment on above: Result Comment: Elec tronically Signed By: She BINGHAM CNP\.jeanie\Date and Time Signed: 04/29/19 11:36 EDT PAP [id number] 04-29-2019 Gynecological Body Site CERVIX Normal [facility] Comment on above: Performed By: #### 1 [id number], [id number] #### [facility] [address] [place] [address] Other Patient Information IUD Normal [facility] Comment on above: Performed By: #### 1 [id number], [id number] #### [facility] [address] [place] [address] Vital Signs Date Time Vital Sign Value Performing Clinician Facility 08-04-2024 15:35-0500 Body height 157.5 cm Sherie Maria DPM Work Phone: [facility] 08-04-2024 15:35-0500 Body mass index (BMI) [Ratio] 40.6 kg/m2 Sherie Maria DPM Work Phone: [facility] 08-04-2024 15:35-0500 Body weight 100.7 kg Sherie Maria DPM Work Phone: [facility] 06-16-2024 10:54-0400 Body height 157.5 cm Dorcas Peralta GYM MANAGER Work Phone: [facility] 06-16-2024 10:54-0400 Body mass index (BMI) [Ratio] 39.36 kg/m2 Dorcas Peralta GYM MANAGER Work Phone: [facility] 06-16-2024 10:54-0400 Body weight 97.61 kg Dorcas Peralta GYM MANAGER Work Phone: [facility] 06-16-2024 10:54-0400 Diastolic blood pressure 76 mm[Hg] Dorcas Peralta GYM MANAGER Work Phone: [facility] 06-16-2024 10:54-0400 Heart rate 98 /min Dorcas Peralta GYM MANAGER Work Phone: [facility] 06-16-2024 10:54-0400 SaO2% (BldA) [Mass fraction] 97 % Dorcas Peralta GYM MANAGER Work Phone: [facility] 06-16-2024 10:54-0400 Systolic blood pressure 120 mm[Hg] Dorcas Peralta GYM MANAGER Work Phone: [facility] 05-23-2024 10:24-0400 Body mass index (BMI) [Ratio] 38.99 kg/m2 Dorcas Peralta GYM MANAGER Work Phone: [facility] 05-23-2024 10:24-0400 Body weight 96.71 kg Dorcas Peralta GYM MANAGER Work Phone: [facility] 05-23-2024 10:24-0400 Diastolic blood pressure 72 mm[Hg] Dorcas Peralta GYM MANAGER Work Phone: [facility] 05-23-2024 10:24-0400 Heart rate 93 /min Dorcas Peralta GYM MANAGER Work Phone: [facility] 05-23-2024 10:24-0400 SaO2% (BldA) [Mass fraction] 99 % Dorcas Peralta GYM MANAGER Work Phone: [facility] 05-23-2024 10:24-0400 Systolic blood pressure 122 mm[Hg] Dorcas Peralta GYM MANAGER Work Phone: [facility] 11-10-2019 14:27-0500 BMI (Body Mass Index) 35.43 kg/m2 [place] 11-10-2019 14:27-0500 Body Temperature 97.59 [degF] [place], [place] 11-10-2019 14:27-0500 Body weight 90.72 kg [place], [place] 11-10-2019 14:27-0500 BP Diastolic 65 mm[Hg] [place] 11-10-2019 14:27-0500 BP Systolic 102 mm[Hg] [place] 11-10-2019 14:27-0500 Height 160 cm [place] 11-10-2019 14:27-0500 Pulse Oximetry 99 % [place] Encounters Encounter Date Encounter Type Care Provider Facility Start: 08-13-2024 ambulatory Dorcas quintana PA-C Facility:[facility] Start: 08-04-2024 End: 08-04-2024 Office outpatient new 30 minutes Sherie Maria DPM Work Phone: [facility] Comment on above: Tinea pedis of both feet (Primary Dx); Chronic dermatitis of feet; Dermatophytosis of nail; Pain around toenail, right foot; Pain around toenail, left foot Start: 08-04-2024 End: 08-04-2024 ambulatory SHERIE MARIA Not Available Start: 08-04-2024 End: 08-04-2024 Bamboo flowsheet Sherie Maria DPM Work Phone: [facility] Start: 08-04-2024 End: 08-04-2024 Bamboo flowsheet Sherie Maria DPM Work Phone: [facility] Start: 07-04-2024 End: 07-04-2024 ambulatory [facility] Start: 06-16-2024 End: 06-16-2024 Bamboo flowsheet Dorcas Peralta GYM MANAGER Work Phone: [facility] Start: 06-16-2024 End: 06-16-2024 Bamboo flowsheet Dorcas Peralta GYM MANAGER Work Phone: [facility] Start: 06-16-2024 End: 06-16-2024 Office outpatient visit 25 minutes Dorcas Peralta NP Work Phone: [facility] Comment on above: Morbid (severe) obes ity due to excess calories (CMS/HCC) (Primary Dx); Bipolar disorder in full remission, most recent episode unspecified type (CMS/HCC); Mixed dyslipidemia (CMS/HCC) Start: 06-16-2024 End: 06-16-2024 ambulatory DORCAS PERALTA Not Available Start: 05-23-2024 End: 05-23-2024 Office outpatient visit 25 minutes Dorcas Peralta NP Work Phone: [facility] Comment on above: Folliculitis (Primar y Dx); Obesity, Class II, BMI 35-39.9; Morbid (severe) obesity due to excess calories (CMS/HCC); Gastro-esophageal reflux disease without esophagitis; Body mass index (BMI) 39.0-39.9, adult; Bipolar disorder, unspecified (CMS/HCC) Start: 05-23-2024 End: 05-23-2024 ambulatory DORCAS PERALTA Not Available Start: 05-22-2024 End: 05-22-2024 Orders Only Dorcas Peralta GYM MANAGER Work Phone: [facility] Comment on above: Dermatitis (Primary Dx) Start: 05-19-2024 End: 05-19-2024 ambulatory [facility] Start: 05-19-2024 End: 05-19-2024 [facility] Start: 05-14-2024 End: 05-14-2024 ambulatory DORCAS PERALTA Not Available Start: 05-05-2024 End: 05-05-2024 [facility] Start: 03-24-2024 End: 03-24-2024 ambulatory CAITLYN Griffiths [facility] Start: 03-23-2024 End: 03-24-2024 Emergency department patient visit LUIZA Reyes ORDOÑE[facility] Start: 03-23-2024 End: 03-23-2024 Emergency department patient visit CAITLYN Griffiths [facility] Start: 03-10-2024 End: 04-10-2024 ambulatory [facility] Start: 03-08-2024 End: 03-08-2024 Emergency department patient visit CAITLYN Griffiths [facility] Start: 03-03-2024 End: 03-03-2024 ambulatory Caitlyn Sparrow MD Facility:[facility] Start: 02-29-2024 End: 02-29-2024 ambulatory CAITLYN Griffiths [facility] Start: 02-18-2024 End: 02-18-2024 ambulatory Caitlyn Sparrow MD Facility:[facility] Start: 02-11-2024 End: 03-10-2024 ambulatory [facility] Start: 01-28-2024 End: 01-28-2024 ambulatory Caitlyn Sparrow MD Facility:[facility] Start: 01-23-2024 End: 02-09-2024 ambulatory [facility] Start: 11-30-2023 End: 11-30-2023 ambulatory [facility] Start: 11-30-2023 Encounter for genera l adult medical examination without abnormal findings [facility] Start: 08-09-2023 Alonzo Pierre ph, MD Work Phone: Neurology Comment on above: Refill Request Start: 03-09-2023 Refill Raymond Pierre ph, MD [...] 02-23-2022 End: 02-23-2022 ambulatory Karel Elaine Other [employer] Other Start: 02-23-2022 Telephone encounter Karel Elaine [facility] Start: 01-09-2022 Refill Raymond Pierre ph, MD Work Phone: Neurology Comment on above: Refill Request Start: 01-04-2022 End: 01-04-2022 ambulatory Karel Elaine Other [employer] Other Start: 01-04-2022 Telephone encounter Karel Elaine [facility] Start: 12-12-2021 End: 12-12-2021 ambulatory Karel Elaine Other [employer] Other Start: 12-12-2021 Telephone encounter Karel Elaine [facility] Start: 11-30-2021 End: 12-01-[address] MUNIRA DEAL Facility:[facility] Start: 11-16-2021 End: 11-16-2021 ambulatory Karel Elaine Other [employer] Other Start: 11-16-2021 Telephone encounter Karel Elaine [facility] Start: 10-11-2021 Encounter for preprocedural laboratory examination DR MUNIRA DEAL [facility] Start: 10-11-2021 End: 10-11-[address] MUNIRA DEAL Facility:[facility] Start: 10-07-2021 End: 10-08-[address] CAITLYN SPARROW Facility:[facility] Start: 10-07-2021 End: 10-08-2021 Encounter for preprocedural laboratory examination DR CAITLYN SPARROW Facility:[facility] Start: 10-04-2021 End: 10-04-[address] MUNIRA DEAL Facility:[facility] Start: 10-03-2021 End: 10-04-[address] CAITLYN SPARROW Facility:[facility] Start: 09-15-2021 End: 09-16-2021 ambulatory LUDA MANUEL Facility:[facility] Start: 08-03-2021 End: 08-03-2021 ambulatory Karel Elaine Other [employer] Other Start: 08-03-2021 Telephone encounter Karel Elaine [facility] Start: 07-28-2021 End: 07-28-2021 ambulatory Karel Elaine Other [employer] Other Start: 07-28-2021 Telephone encounter Karel Elaine [facility] Start: 11-10-2019 End: 11-11-2019 Patient encounter procedure BRADLEY SIMMONS [facility] Start: 11-10-2019 End: 11-10-2019 Subsequent hospital visit by physician Bradley Simmons Work Phone: [facility] Comment on above: Arrived Procedures Date Procedure Procedure Detail Performing Clinician Start: 10-03-2021 Adult depression screening assessment Raymond Medina MD Work Phone: Plan of Treatment Date Care Activity Detail Author Start: 2036 Shingles Vaccine (1 of 2) Shingles Vaccine (1 of 2) [facility] Start: 06-10-2025 Influenza vaccination Influenza Vacc ine (#1) [facility] Comment on above: Postponed from 05/11 (Patient Refused) Start: 11-08-2024 Medicare Annual Well ness (AWV) Medicare Annual Wellness (AWV) [facility] Start: 10-27-2024 End: 10-27-2024 Patient encounter procedure 10/27/2024 4:15 PM EST Office Visit [facility] [address] [place] [phone] Sherie Maria, JOSE [address] [place] [address] [facility] Start: 09-15-2024 End: 09-15-2024 Patient encounter procedure 09/15/2024 11:00 AM EST Office Visit [facility] [address] [place] [phone] Dorcas Peralta GYM MANAGER [address] [place] [address] [facility] Start: 08-04-2024 End: 08-04-2024 Patient encounter procedure 08/04/2024 3:30 PM EST Office Visit [facility] [address] [place] [phone] Sherie Maria, JOSE [address] [place] [address] Arrived [facility] Comment on above: Arrived Start: 06-16-2024 End: 06-16-2024 Patient encounter procedure [facility] Comment on above: Arrived Start: 05-11-2024 Influenza vaccination Influenza Vacc ine (#1) [facility] Start: 05-11-2023 Influenza vaccination C [facility] Start: 10-03-2022 Adult depression screening assessment DEPRESSION SCREENING [facility] Start: 09-10-2022 DEPRESSION ASSESSMENT DEPRESSION ASS ESSMENT [facility] Start: 05-11-2022 Influenza [facility] Start: 03-29-2020 End: 03-29-2020 Appointment 03/29/2020 Appointment General Surgery Bradley Simmons MD [facility] [id number] [facility] Start: 05-11-2019 Influenza vaccination Flu vaccine (# 1) [place], [place] Start: 2016 HPV TESTING HPV TESTING [facility] Start: 2016 Screening for malign ant neoplasm of cervix [facility] Start: 2007 Cervical cancer screen Cervical canc er screen [place], [place] Start: 2007 PAP TESTING PAP TESTING [facility] Start: 2007 Screening for malign ant neoplasm of cervix [facility] Start: 2005 Urine microalbumin profile DTAP,TDAP,TD (1 - Tdap) [facility] Start: 2004 HEPATITIS C SCREENING HEPATITIS C [facility] Start: 2004 Hepatitis C screening Hepatitis C [facility] Start: 2004 HIV SCREENING HIV SCREENING [facility] Start: 2004 HIV screening HIV Screening [facility] Start: 2001 HIV screen HIV screen [place], [place] Start: 12-25-1997 Urine microalbumin profile DTaP,Tdap,Td Vaccine (6 - Tdap) [facility] Start: 1997 DTaP/Tdap/Td vaccine (1 - Tdap) DTaP/Tdap/Td vaccine (1 - Tdap) [place] Start: 1991 COVID-19 VACCINE (1) COVID-19 VACCIN E (1) [facility] Start: 1987 Varicella vaccine (1 of 2 - 2-dose childhood series) Varicella vaccine (1 of 2 - 2-dose childhood series) [place] Start: 01-14-1987 COVID-19 VACCINE (#1) COVID-19 VACCI NE (#1) [facility] Start: 1986 HEPATITIS B (1 of 3 - 3-dose series) HEPATITIS B (1 of 3 - 3-dose series) [facility] Start: 1986 Medicare Annual Well ness (AWV) Medicare Annual Wellness (AWV) [facility] Immunizations Immunization Date Immunization Notes Care Provider Fa cility 05-15-2023 Influenza, injectabl e, Madin Renetta Canine Kidney, quadrivalent with preservative Dorcas Peralta NP Work Phone: [facility] 05-15-2023 influenza virus vacc ine, unspecified formulation Dorcas Cummingspdanyell GYM MANAGER Work Phone: [facility] 07-13-2022 Influenza, injectabl e, Madin [place] Canine Kidney, preservative free, quadrivalent Dorcas Kampfer GYM MANAGER Work Phone: [facility] 09-13-2021 influenza, injectabl e, quadrivalent, preservative free Dorcas Kampfer GYM MANAGER Work Phone: [facility] 08-22-2019 influenza, injectabl e, quadrivalent, contains preservative Dorcas Kampfer GYM MANAGER Work Phone: [facility] 08-22-2019 influenza virus vacc ine, unspecified formulation Raymond Medina MD Work Phone: [facility] 05-25-1998 hepatitis B vaccine, pediatric or pediatric/adolescent dosage Dorcas Cummingspfer GYM MANAGER Work Phone: [facility] 12-24-1997 hepatitis B vaccine, pediatric or pediatric/adolescent dosage Dorcas Cummingspfer GYM MANAGER Work Phone: [facility] 12-24-1997 TD(adult) unspecifie d formulation Dorcas Cummingskiadanyell GYM MANAGER Work Phone: [facility] 11-19-1997 hepatitis B vaccine, pediatric or pediatric/adolescent dosage Dorcas Cumminsgpfer GYM MANAGER Work Phone: [facility] 11-19-1997 measles, mumps and rubella virus vaccine Dorcas Cummingspfer GYM MANAGER Work Phone: [facility] 10-26-1987 diphtheria, tetanus toxoids and pertussis vaccine Dorcas Cummingspfer GYM MANAGER Work Phone: [facility] 10-26-1987 measles, mumps and rubella virus vaccine Dorcas Cummingspfer GYM MANAGER Work Phone: [facility] 10-26-1987 trivalent poliovirus vaccine, live, oral Dorcasdwight Cummingsgwen GYM MANAGER Work Phone: [facility] 02-17-1987 diphtheria, tetanus toxoids and pertussis vaccine Dorcas Emilianopdanyell GYM MANAGER Work Phone: [facility] 02-17-1987 trivalent poliovirus vaccine, live, oral Dorcas Cummingspfer GYM MANAGER Work Phone: [facility] 1986 diphtheria, tetanus toxoids and pertussis vaccine Dorcas Kampfer GYM MANAGER Work Phone: [facility] 1986 trivalent poliovirus vaccine, live, oral Dorcas Kampfer GYM MANAGER Work Phone: [facility] 1986 diphtheria, tetanus toxoids and pertussis vaccine Dorcas Kampfer GYM MANAGER Work Phone: [facility] 1986 trivalent poliovirus vaccine, live, oral Dorcas Kampfer GYM MANAGER Work Phone: [facility] Payers Date Payer Category Payer [place] [id number] 2019-Present [phone] [address] [place] [address] Medicaid [id number] 2019 Medicaid [id number] .[id number] 2019 Medicare MEDICARE MEDICAR E A AND B [id number] 2019-Present [phone] [address] [address] [place] [address] Medicare [id number] .[id number] 2019 Medicare [id number] [id number] .[id number] 2014 Medicaid MEDICAID [facility] DEPT OF JOB xxxxxxxxxxxx 2014-Present [phone] [address] [place] [address] xxxxxxxxxxxx [id number] .850033.315 2014 Medicare MEDICARE MEDICAR E PART A AND B xxxxxxxxxxx 2014-Present [phone] [place] [address] xxxxxxxxxxx [id number] .[id number] 1986 Unknown [id number] 2.16.840.1.085275.3.579.2.177 1986 Unknown [id number] 2.16.840.1.368475.3.579.2.593 1986 Unknown [id number] 2.16.840.1.591322.3.579.2.593 1986 Unknown [id number] 2.16.840.1.267869.3.579.2.593 1986 Unknown [id number] 2.16.840.1.547997.3.579.2.593 1986 Unknown [id number] 2.16.840.1.622592.3.579.2.593 1986 Unknown [id number] 2.16.840.1.071389.3.579.2.593 1986 Unknown [id number] 2.16.840.1.848270.3.579.2.593 1986 Unknown [id number] 2.16.840.1.014182.3.579.2.593 1986 Unknown [id number] 2.16.840.1.186992.3.579.2.593 1986 Unknown [id number] 2.16.840.1.618077.3.579.2.128 6 1986 Unknown [id number] 2.16.840.1.434234.3.579.2.128 6 1986 Unknown [id number] 2.16.840.1.356988.3.579.2.128 6 1986 Unknown [id number] 2.16.840.1.987802.3.579.2.128 6 1986 Unknown [id number] 2.16.840.1.035897.3.579.2.128 6 1986 Unknown [id number] 2.16.840.1.138363.3.579.2.128 6 1986 Unknown [id number] 2.16.840.1.382407.3.579.2.128 6 1986 Unknown [id number] 2.16.840.1.277726.3.579.2.128 6 1986 Unknown [id number] 2.16.840.1.946457.3.579.2.128 6 1986 Unknown [id number] 2.16.840.1.004430.3.579.2.128 6 1986 Unknown [id number] 2.16.840.1.590602.3.579.2.128 6 1986 Unknown [id number] 2.16.840.1.717181.3.579.2.128 6 1986 Unknown [id number] 2.16.840.1.923857.3.579.2.128 6 1986 Unknown [id number] 2.16.840.1.910243.3.579.2.128 6 1986 Unknown [id number] 2.16.840.1.688388.3.579.2.128 6 1986 Unknown [id number] 2.16.840.1.367672.3.579.2.128 6 1986 Unknown [id number] 2.16.840.1.153641.3.579.2.128 6 1986 Unknown [id number] 2.16.840.1.527446.3.579.2.128 6 1986 Unknown [id number] 2.16.840.1.872082.3.579.2.125 9 1986 Unknown [id number] 2.16.840.1.939640.3.579.2.125 9 1986 Unknown [id number] 2.16.840.1.256018.3.579.2.125 9 1986 Unknown [id number] 2.16.840.1.908283.3.579.2.125 9 1986 Unknown [id number] 2.16.840.1.976650.3.579.2.196 1986 Unknown [id number] 2.16.840.1.498293.3.579.2.196 1986 Unknown [id number] 2.16.840.1.086244.3.579.2.196 1986 Unknown [id number] 2.16.840.1.498890.3.579.2.196 1959 Medicaid [id number] 1958 Medicare [id number] Social History Date Type Detail Facility Start: 11-25-2018 End: 11-10-2019 Tobacco smoking status NHIS Never smoker [facility] Start: 11-10-2019 End: 05-23-2024 Alcohol intake Current drinker of alcohol (finding) [place] Start: 11-10-2019 Alcohol Comment [place], [place] Start: 1985 Sex Assigned At Not on file [place], [place] Start: 11-25-2018 End: 05-14-2024 Tobacco use and exposure Smokeless tobacco non-user [facility] Start: 11-25-2018 History SDOH Alcohol Comment [facility] Start: 04-21-2019 End: 05-23-2024 Sex Assigned At [facility] Start: 04-21-2019 End: 05-23-2024 History of Social function [facility] Adult Depression Screening Assessment 4 [facility] Start: 05-14-2024 Tobacco smoking stat us [facility] Smokes tobacco daily [facility] Start: 05-14-2024 Tobacco Comment Vapes daily [facility] Start: 05-14-2024 Alcohol Comment caffeine intak e: 12 oz coffee daily [facility] Clinical Notes 09-15-2021 to 08-11-2024 Sherie Maria, JOSE - 08/04/2024 3:30 PM ESTPatient Instructionslety Peralta, KOBE - 06/16/2024 11:00 AM RAINTreejefe Peralta NP - 05/23/2024 10:30 AM Lisa Peralta, KOBE - 05/22/2024 9:40 AM EDT Note Date & Type Note Facility 08-11-2024 Note Patient Education Ma terials Name: Marita Messina Current Date: 08/11/2024 16:18:15 [facility] 1985 The following sheet(s) are the Patient Education Leaflets for Marita Messina Oncology Breast Health: Breast Self-Awareness What is breast self-awareness? Breast self-awareness is knowing how your breasts normally look and feel. Your breasts change as you go through different stages of your life. So it?s important to learn what is normal for your breasts. Knowing about your breasts helps you spot any changes in them right away. Tell your healthcare provider about any changes. Why is breast self-awareness important? Many experts now say that women should focus on breast self-awareness instead of doing a breast self-exam (BSE). These experts include the [place] [employer] and the [place] [employer]. Some experts even advise not teaching women to do a BSE. That?s because research hasn?t shown that doing BSEs helps. Breast self-awareness is different than a BSE. It isn?t about following a certain method and schedule. It?s about knowing what's normal for your breasts. That way you can spot even small changes right away. If you see any changes, tell your healthcare provider. Changes to look for Call your healthcare provider if you find any changes in your breasts that worry you. These changes may be: ?A lump ?Nipple discharge other than breastmilk, especially if it's bloody ?Swelling ?A change in size or shape ?Skin changes, such as redness, thickening, or dimpling of the skin ?Swollen lymph nodes in the armpit ?Nipple problems, such as pain or redness If you find a lump Call your healthcare provider if you find lumpiness in one breast. Also call if you feel something different in the tissue or feel a definite lump. Sometimes lumpiness may be due to menstrual changes. But there may be reason for concern. Your healthcare provider may want to see you right away if you have: ?Nipple discharge that is bloody ?Skin changes on your breast, such as dimpling or puckering It?s OK to be upset if you find a lump. Be sure to call your healthcare provider right away. Remember that most breast lumps are benign. This means they are not cancer. ? [id number] [employer]. All rights reserved. This information is not intended as a substitute for professional medical care. Always follow your healthcare professional's instructions. Urology Pelvic Floor Muscle Exercises Pelvic floor muscle exercises are done to help strengthen the muscles in your pelvic floor. They are easy to learn and simple to do. And if you do them right, no one can tell you?re doing them. You can do them almost anywhere. Your healthcare provider, nurse, or physical therapist can answer any questions you have and help you get started. These are also called Kegel exercises. A weak pelvic floor The pelvic floor muscles may weaken. This can happen because of any of these: ?Aging ? ?Vaginal childbirth ?Injury ?Surgery ?Chronic cough ?Lack of exercise If the pelvic floor is weak, your bladder and other pelvic organs may sag out of place. The urethra may open too easily. This can allow urine to leak out. Pelvic floor muscle exercises can help you strengthen your pelvic floor muscles. They can better support your pelvic organs and control your urine flow. How to do pelvic floor muscle exercises Try each of the pelvic floor muscle exercises below. When you?re doing them, try not to move your leg, buttock, or stomach muscles: ?Squeeze as if you are stopping your urine stream. But do it when you?re not urinating. ?Tighten your rectum as if trying not to pass gas. Squeeze your anus, but don?t move your buttocks. Tip: Place 1 or 2 fingers in the vagina. Squeeze your finger with your vagina. This will help you to learn which muscles to tighten. Try to hold each pelvic floor muscle exercise for a slow count to 5. You probably won?t be able to hold it for that long at first. But keep practicing. It will get easier as your pelvic floor gets stronger. At some point, your healthcare provider may advise you to use special weights. You place these in your vagina before you do these exercises. This can help make the exercises even more effective. Talk to your healthcare provider if you have trouble doing the exercises. Helpful tips Here are some tips to follow: ?Do pelvic floor muscle exercises as often as you can. The more you do them, the faster you?ll feel the results. ?Pick an activity you do often as a reminder. For instance, do your these exercises every time you sit down. ?Tighten your pelvic floor before you sneeze, get up from a chair, cough, laugh, or lift. This can help prevent urine, gas, or stool leakage. ? [id number] [employer]. All rights reserved. This information is not intended as a substitute fo (more content not included)... [facility] 08-04-2024 History of Present illness Narrative Subjective Patient ID: Marita Messina is a 39 y.o. female who presents for Fungus (Pt is here today for fungal nails, first noticed about 1 yr ago. Also athlete's foot BL. She has tried OTC topical fungal namibian, no change noted. /SS:8 ). HPI Initial patient encounter and assessment. Chief complaint: Fungal toenails. Suspected athlete's foot. Initially noted thickening, discoloration and deformity of the right great toenail 1-2 years previous; without injury or trauma. Recently noted subtotal slough of the nail plate; without bleeding or drainage. Has since noted similar changes involving the left great toenail to a much lesser degree; increasing her concern. Relates pressure discomfort with footwear primarily involving bilateral great toes. Self care measures are difficult, ineffective and not practical. Patient typically has toenail namibian on a constant basis. Also complains of a pruritic rash involving both feet particularly over the past 6 months or so. Both conditions unresponsive to OTC topical agents. Medications Current Outpatient Medications: albuterol HFA 90 mcg/act inhaler, inhale 2 puffs by mouth and INTO THE LUNGS every 4 to 6 hours if needed, Disp: , Rfl: budesonide-formoterol (Symbicort) 160-4.5 MCG/ACT inhaler, Inhale 2 puffs in the morning and 2 puffs in the evening., Disp: , Rfl: busPIRone (Buspar) 30 MG tablet, Take 1 tablet by mouth in the morning and 1 tablet before bedtime., Disp: , Rfl: clotrimazole-betamethasone (Lotrisone) cream, Apply twice daily as directed, Disp: 45 g, Rfl: 1 cyclobenzaprine (Flexeril) 10 MG tablet, Take 1 tablet by mouth 2 (two) times a day as needed, Disp: , Rfl: erenumab (Aimovig) 140 MG/ML injection, Inject 140 mg under the skin every 28 (twenty-eight) days, Disp: , Rfl: FLUoxetine (PROzac) 40 MG capsule, Take 1 capsule by mouth in the morning., Disp: , Rfl: gabapentin (Neurontin) 300 MG capsule, Take 300 mg by mouth in the morning and 300 mg before bedtime., Disp: , Rfl: ketoconazole (NIZOral) 2 % shampoo, Apply topically 2 (two) times a week, Disp: 120 mL, Rfl: 0 LORazepam (Ativan) 0.5 MG tablet, Take 1 tablet by mouth every 6 (six) hours if needed, Disp: , Rfl: [place]-3 Fatty Acids (FISH OIL OMEGA-3 PO), Take 2 g by mouth in the morning and 2 g before bedtime. 2 g 2 tab bid. ., Disp: , Rfl: omeprazole (PriLOSEC) [address] capsule, Take 1 capsule (20 mg) by mouth 1 (one) time each day at the same time, Disp: 90 capsule, Rfl: 1 ondansetron ODT (Zofran-ODT) 4 MG disintegrating tablet, 4 mg every 8 (eight) hours if needed, Disp: , Rfl: propranolol (Inderal) 20 MG tablet, 20 mg in the morning and 20 mg before bedtime., Disp: , Rfl: Repatha SureClick 140 MG/ML injection, Inject 140 mg under the skin every 14 (fourteen) days, Disp: , Rfl: Vraylar 6 MG capsule, Take 1 capsule by mouth in the morning., Disp: , Rfl: Allergies Hydrocodone-acetaminophen Past Surgical History Past Surgical History: Procedure Laterality Date CT ANGIOGRAM HEART CORONARY 03/23/2024 CT ANGIOGRAM TAVR 03/23/2024 PARTIAL HYSTERECTOMY TUMOR REMOVAL left thumb. WISDOM TOOTH EXTRACTION Family History Family History Problem Relation Name Age of Onset Hyperlipidemia Father Diabetes Father Objective GENERAL ASSESSMENT: Alert and oriented. Pleasant disposition. Accompanied by her daughter. Vascular: DP 2/4 bilateral. PT 2/4 bilateral. CFT brisk all digits. Gradient temperature: Warm-warm bilateral. Unremarkable for ankle edema. Neurologic: Tactile and light touch sensation intact. Dermatologic: Skin turgor is good. Both feet demonstrate several distinct, raised annular skin lesions with central clearing; located on the dorsal lateral forefoot areas; with several distinct areas of macular skin reaction with scaly plaques located plantarly. Unremarkable for vesicle formation. Web space areas are clean, dry, non-inflamed. Right great toe: TDO deformity: Gross toenail dystrophy, discoloration, clubbing, subtotal detachment with periungual hyperkeratotic and mycotic debris; without drainage. Left great toe: DSO deformity of the medial and lateral margins extending to the lunula area. Distal subungual keratotic and mycotic debris. Orthopedic: Range of motion: Passive ankle dorsiflexion is limited, consistent with mild gastrocnemius equinus. Otherwise maintains functional ankle, subtalar and 1st MTP joint range of motion. Lesion pattern: No forefoot or digital discrete keratotic lesions are noted. Radiology: Assessment/Plan 1. Symptomatic onychodystrophy/mycosis bilateral great toes. 2. Tinea dermatitis bilateral. 3. Fatty liver by history. Plan: Review of clinical findings, differential diagnosis of toenail deformity and condition, contributing/aggravating factors, treatment strategy, rationale and objectives. Patient is not a candidate for oral terbinafine therapy: Fatty liver by history; most recent hepatic enzymes elevated (May 2024). [place] agreement to proceed with topical care measures: Formula 7, preceded by use of vinegar and/or Listerine antiseptics. Advised as to limited efficacy. Hygiene and skin care measures discussed. Rx: Lotrisone 1%: Twice daily as directed. 45 g. One refill. Procedure: Toenail debridement: Aseptic technique: Hand and power instrumentation: Onychodebridement in length and thickness, with curettage of any cryptotic margins, all periungual debris; providing effective symptom and pressure relief; reducing shoe and digital trauma; reducing fungal reservoir. This note was created with the assistance of a speech recognition program. While intending to generate a timely document that accurately reflects the content of the visit, no guarantee can be provided that every grammatical or spelling mistake has been or will be identified or corrected. Thank you for your understanding. Sherie Maria DPM documented in this encounter [facility] 08-04-2024 Instructions Sherie Maria DPM - 08/04/2024 3:30 PM EST As noted documented in this encounter [facility] 06-16-2024 History of Present illness Narrative Images from the original note were not included. Marita Messina is a 38 y.o. female presents with chief complaint of Follow-up HPI: HPI Presents to the office for weight check. Took wegovy sample for 4 weeks. She denies any side effects. Breakfast typically has coffee maybe a yogurt, lunch will have a lunch meat sandwich carrots and dip, dinner typically chicken with veggies. Focuses on portion control. Cholesterol is high, has gained a lot of weight in the past 6 months, her psych meds were adjusted shortly before this. She is not exercising that often, she reports her back hurts, she does have a known bulging disc, followed with pain management. SUBJECTIVE: MEDICATIONS: Current Outpatient Medications Medication Instructions Aimovig 140 mg, Subcutaneous, Every 28 days albuterol HFA 90 mcg/act inhaler inhale 2 puffs by mouth and INTO THE LUNGS every 4 to 6 hours if needed budesonide-formoterol (Symbicort) 160-4.5 MCG/ACT inhaler 2 puffs, Inhalation, 2 times daily busPIRone (Buspar) 30 MG tablet 1 tablet, Oral, 2 times daily cyclobenzaprine (Flexeril) 10 MG tablet 1 tablet, Oral, 2 times daily PRN FLUoxetine (PROzac) 40 MG capsule 1 capsule, Oral, Every morning gabapentin (NEURONTIN) 300 mg, Oral, 2 times daily ketoconazole (NIZOral) 2 % shampoo Topical, 2 times weekly LORazepam (Ativan) 0.5 MG tablet 1 tablet, Oral, Every 6 hours PRN [place]-3 Fatty Acids (FISH OIL [place]ME[place]-3 PO) 2 g, Oral, 2 times daily, 2 g 2 tab bid. omeprazole (PRILOSEC) 20 mg, Oral, Every 24 hours ondansetron ODT (ZOFRAN-ODT) 4 mg, Every 8 hours PRN propranolol (INDERAL) 20 mg, 2 times daily Repatha SureClick 140 mg, Subcutaneous, Every 14 days Vraylar 6 MG capsule 1 capsule, Oral, Every morning REVIEW OF SYMPTOMS: Review of Systems Constitutional: Negative. HENT: Negative. Eyes: Negative. Respiratory: Negative. Cardiovascular: Negative. Gastrointestinal: Negative. Genitourinary: Negative. Musculoskeletal: Negative. Skin: Negative. Neurological: Negative. OBJECTIVE: Visit Vitals BP 120/76 (BP Location: Right arm, Patient Position: Sitting, BP Cuff Size: Large adult) Pulse 98 Ht 5' 2 Wt 215 lb 3.2 oz SpO2 97% BMI 39.36 kg/m Smoking Status Every Day BSA 2.07 m Physical Exam Vitals reviewed. Constitutional: Appearance: She is obese. HENT: Head: Normocephalic and atraumatic. Mouth/Throat: Mouth: Mucous membranes are moist. Eyes: Pupils: Pupils are equal, round, and reactive to light. Cardiovascular: Rate and Rhythm: Normal rate and regular rhythm. Pulses: Normal pulses. Heart sounds: Normal heart sounds. Pulmonary: Effort: Pulmonary effort is normal. Breath sounds: Normal breath sounds. Musculoskeletal: Cervical back: Normal range of motion and neck supple. Right lower leg: No edema. Left lower leg: No edema. Skin: General: Skin is warm and dry. Capillary Refill: Capillary refill takes less than 2 seconds. Findings: No rash. Neurological: General: No focal deficit present. Mental Status: She is alert and oriented to person, place, and time. ASSESSMENT AND PLAN: Assessment/Plan Diagnoses and all orders for this visit: Morbid (severe) obesity due to excess calories (CMS/HCC) -Tolerated wegovy however her insurance does not cover weight loss medication. Risk and benefits of compounded semaglutide treatment were discussed. Patient understands that this is not an exact formulation or dosage approved by the FDA for weight loss. We feel that we have thoroughly investigated with due diligence and using a well established local sterile compounding pharmacy and are conformable with their values and practices They are also a PCAB accredited and rated highly by the [employer]. Prescription sent to pharmacy Bipolar disorder in full remission, most recent episode unspecified type (CMS/HCC) -Followed by psych Mixed dyslipidemia (CMS/HCC) -Followed by cardiology documented in this encounter [facility] 05-23-2024 History of Present illness Narrative Images from the original note were not included. Marita Messina is a 38 y.o. female presents with chief complaint of Rash HPI: HPI History of Present Illness The patient presents for evaluation of a rash. She reports experiencing a painful rash on the back of her head, which she describes as tender and occasionally itchy, particularly when she sweats. She also mentions having dandruff. To manage the discomfort, she has been taking Motrin 800. SUBJECTIVE: MEDICATIONS: Current Outpatient Medications Medication Instructions Aimovig 140 mg, Subcutaneous, Every 28 days albuterol HFA 90 mcg/act inhaler inhale 2 puffs by mouth and INTO THE LUNGS every 4 to 6 hours if needed budesonide-formoterol (Symbicort) 160-4.5 MCG/ACT inhaler 2 puffs, Inhalation, 2 times daily busPIRone (Buspar) 30 MG tablet 1 tablet, Oral, 2 times daily cyclobenzaprine (Flexeril) 10 MG tablet 1 tablet, Oral, 2 times daily PRN FLUoxetine (PROzac) 40 MG capsule 1 capsule, Oral, Every morning gabapentin (NEURONTIN) 300 mg, Oral, 2 times daily lamoTRIgine (LaMICtal) 100 MG tablet 1 tablet, Oral, Every morning LORazepam (Ativan) 0.5 MG tablet 1 tablet, Oral, Every 6 hours PRN omeprazole (PRILOSEC) 20 mg, Every 24 hours ondansetron ODT (ZOFRAN-ODT) 4 mg, Every 8 hours PRN propranolol (INDERAL) 20 mg, 2 times daily Vraylar 6 MG capsule 1 capsule, Oral, Every morning Wegovy 0.5 mg, Subcutaneous, Weekly REVIEW OF SYMPTOMS: Review of Systems OBJECTIVE: Visit Vitals BP 122/72 (BP Location: Right arm, Patient Position: Sitting, BP Cuff Size: Large adult) Pulse 93 Wt 213 lb 3.2 oz SpO2 99% BMI 38.99 kg/m Smoking Status Every Day BSA 2.06 m Physical Exam Vitals reviewed. Constitutional: Appearance: She is obese. HENT: Head: Normocephalic and atraumatic. Mouth/Throat: Mouth: Mucous membranes are moist. Eyes: Pupils: Pupils are equal, round, and reactive to light. Cardiovascular: Rate and Rhythm: Normal rate and regular rhythm. Pulses: Normal pulses. Heart sounds: Normal heart sounds. Pulmonary: Effort: Pulmonary effort is normal. Breath sounds: Normal breath sounds. Musculoskeletal: Cervical back: Normal range of motion and neck supple. Skin: General: Skin is warm and dry. Capillary Refill: Capillary refill takes less than 2 seconds. Findings: Rash present. Comments: Erythematous vesicle to scalp with surround erythema Neurological: General: No focal deficit present. Mental Status: She is alert and oriented to person, place, and time. ASSESSMENT AND PLAN: Assessment/Plan Diagnoses and all orders for this visit: Folliculitis - ketoconazole (NIZOral) 2 % shampoo; Apply topically 2 (two) times a week - doxycycline (Vibra-Tabs) 100 MG tablet; Take 1 tablet (100 mg) by mouth in the morning and 1 tablet (100 mg) before bedtime. Do all this for 10 days. Take with a full glass of water and do not lie down for at least 30 minutes after.. -Initiate ketoconazole and doxy. Instructed to avoid picking.' Notify office if symptoms persist Obesity, Class II, BMI 35-39.9 -Check on status of prior auth, discussed compounding semaglutide if insurance denies wegovy, she declines Diagnoses and all orders for this visit: Morbid (severe) obesity due to excess calories (CMS/HCC) Gastro-esophageal reflux disease without esophagitis Body mass index (BMI) 39.0-39.9, adult Bipolar disorder, unspecified (CMS/HCC) documented in this encounter [facility] 05-22-2024 History of Present illness Narrative eduardo documented in this encounter [facility] 08-09-2023 Miscellaneous Notes Please see pended medication. Pharmacy linked. Last ordered 03/09/2023. Ashtyn Perez MA documented in this encounter [facility] 03-09-2023 Miscellaneous Notes Please see pended medication. Pharmacy linked. Last ordered 10/25/2022. Ashtyn Perez MA documented in this encounter [facility] 07-11-2022 Note CONSULTATION PROCEDURE DATE: 07/11/2022 [...] followed up in the office. [facility] 07-11-2022 Note CONSULTATION CONSULTATION DATE: 07/11/2022 CHIEF COMPLAINT: Trapezius and upper back pain. HISTORY OF PRESENT ILLNESS: This is a 36-year-old female who is known to the [facility]. The patient, in October of this year, had a rhizotomy radiofrequency ablation along her cervical spine. This has afforded the patient significant improvement. 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 CC: Caitlyn Sparrow M.D. [facility] 05-23-2022 Miscellaneous Notes Please see pended medication. Pharmacy linked. Last ordered 10/20/2021. Ashtyn Perez Ma documented in this encounter [facility] 03-08-2022 Note CONSULTATION CONSULTATION DATE: 03/08/2022 [...] Patient does agree with plan of care. [facility] Signed and Approved by: LUDA MANUEL . 03/09/2022 13:38:00 [facility] 01-09-2022 Miscellaneous Notes Please see pended medication. Pharmacy linked. Last ordered 07/05/2021. Ashtyn Perez Ma documented in this encounter [facility] 11-30-2021 Note CONSULTATION PAIN MANAGEMENT CONSULTATION [...] time, and patient agrees to this plan. [facility] Signed and Approved by: LUDA MANUEL . 12/01/2021 12:26:00 [facility] 09-15-2021 Note The [place], [place] NAME: MARITA MESSINA DATE OF : MEDICAL REC#: [id number] GENERAL INSPECTOR: 1421 LILIANA DAWKINS ADMIT DATE: 09/15/2021 12:21:00 TEAM PSYCHOLOGIST DATE: 09/16/2021 11:00 DICTATING PHYSICIAN: LUDA MANUEL DICTATION DATE: 09/15/2021 13:00 PAIN MANAGEMENT Consultation [...] proceed. Electronically Authenticated and Edited by: Luda Manuel CNP on 09/25/2021 11:23 PM [facility] Signed and Approved by: LUDA MANUEL . 09/25/2021 23:23:00 [facility] Evaluation note Diagnosis Excessive physiologic tremor Essential and other specified forms of tremor [facility] Other Evaluation note* Diagnosis Daytime sleepiness Narcolepsy without cataplexy [facility] Diagnosis Daytime sleepiness Narcolepsy without cataplexy [facility] Diagnosis Daytime sleepiness Narcolepsy without cataplexy [facility] Diagnosis Morbid (severe) obesity due to excess calories (CMS/HCC)- Primary Bipolar disorder in full remission, most recent episode unspecified type (CMS/HCC) Mixed dyslipidemia (CMS/HCC) documented in this encounter [facility]* Diagnosis Tinea pedis of both feet- Primary Chronic dermatitis of feet Contact dermatitis and other eczema, due to unspecified cause Dermatophytosis of nail Pain around toenail, right foot Pain around toenail, left foot documented in this encounter [facility]* Diagnosis Dermatitis- Primary Contact dermatitis and other eczema, due to unspecified cause documented in this encounter [facility]* Diagnosis Folliculitis- Primary Other specified disease of hair and hair follicles Obesity, Class II, BMI 35-39.9 Morbid (severe) obesity due to excess calories (CMS/HCC) Gastro-esophageal reflux disease without esophagitis Body mass index (BMI) 39.0-39.9, adult Bipolar disorder, unspecified (CMS/HCC) Bipolar disorder, unspecified documented in this encounter [facility] Healthcare Summary Purpose Family History No Family History Records FoundNo Family History Records FoundNo Family History Records FoundNo Family History Records FoundNo Family History Records FoundNo Family History Records FoundNo Family History Records Found Advance Directives Documents on File Type Date Recorded 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 Past Surgical History: Past Surgical History: Procedure Laterality Date HERNIA REPAIR a year had repair above belly button at [facility] HERNIA REPAIR umbilical and above belly buton also at [facility] about 2 years ago HYSTERECTOMY TUMOR REMOVAL Left 2012 left thumb at [facility] Family History: Family History Problem Relation [...] scan reports and images from the [facility] E from May 2019 and [...] section and content) DATE CREATED AUTHOR 05/31/2019 [facility] DATE CREATED AUTHOR AUTHOR'S ORGANIZ ATION 11/11/2019 [facility] DATE CREATED AUTHOR AUTHOR'S ORGANIZ ATION 12/01/2021 [facility] DATE CREATED AUTHOR AUTHOR'S ORGANIZ ATION 09/02/2022 [facility] DATE CREATED AUTHOR AUTHOR'S ORGANIZ ATION 07/05/2024 [facility] DATE CREATED AUTHOR AUTHOR'S ORGANIZ ATION 08/07/2024 [facility] DATE CREATED AUTHOR AUTHOR'S ORGANIZ ATION 08/13/2024 [facility] Source Comments (unrecognize d section and content) In the event this informatio n is protected by the Federal Confidentiality of Alcohol and Drug Abuse Patient Records regulations: The Federal rules restrict any use of the information to criminally investigate or prosecute any alcohol or drug abuse patient.[facility] the event this information is protected by the Federal Confidentiality of Alcohol and Drug Abuse Patient Records regulations: The Federal rules restrict any use of the information to criminally investigate or prosecute any alcohol or drug abuse patient.[facility] the event this information is protected by the [facility] Confidentiality of Alcohol and Drug Abuse Patient Records regulations: The Federal rules restrict any use of the information to criminally investigate or prosecute any alcohol or drug abuse patient.[facility] the event this information is protected by the Federal Confidentiality of Alcohol and Drug Abuse Patient Records regulations: The Federal rules restrict any use of the information to criminally investigate or prosecute any alcohol or drug abuse patient.[facility] Reason for Visit (unrecogniz ed section and content) Reason Onset Date Comments Refill Request 01/09/2022 Reason Onset Date Comments Refill Request 03/09/2023 Reason Onset Date Comments Refill Request 08/09/2023 Reason Comments Follow-up Reason Comments Fungus Pt is here today for fungal nails, first noticed about 1 yr ago. Also athlete's foot BL. She has tried OTC topical fungal [place], no change noted. 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 Start Date End Date Caitlyn Sparrow [address] [place] [address] PCP - General Internal Medicine 11/25/18 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 Relationship Specialty Start Date End Date Jo-Ann Carlson MD [address] [facility] [place] [address] PCP - General Family Medicine 05/09/24 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 Relationship Specialty Start Date End Date Jo-Ann Carlson MD [address] [facility] [place] [address] PCP - General Family Medicine 05/09/24 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 [employer] [facility]. provides no warranty or guarantee of the accuracy or completeness of information in this document.
--- NOTE | 2024-08-20 11:59 | P.CN_ITS ---
Consult Note: HPI Data of Consult Patient: known to practice within the last 3 years Requesting Physician: Michelle Randhawa NP Primary Care Provider: CAITLYN SPARROW Consult Narrative Reason for consult: f/u Narrative: Marita Messina a pleasant 39 year old female presents for evaluation of chronic neck and back pain. Patient has tried and failed OTC medications, home based exercise program and cervical traction. Since that time her back pain has been the most aggravating factor, especially with ADLs and housework. recent lumbar imaging consistent with lumbar spondylosis, lumbar stenosis, and minimal degenerative disc changes at L5-S1. Underwent bilateral L4-5 L5-S1 facet RFA on 03/03/24 without improvement, significant pain increase post-op and numerous weeks following. see previous notes for details. Since last visit she has noticed improvement in pain with TENS flexeril 15mg TID gabapentin 300mg BID. unfortunately dry needling was not covered by insurance and she could not afford, massage therapy not available or affordable. medrol dose pack previously provided mild relief. Patient has noticed improvement in hip pain but continues to have severe spasms and tightness to low back. Pain 6/10 today tight increased with standing and walking, improved with sitting and forward flexion. cc:: CC: Michelle Randhawa NP Review of Systems ROS Status of ROS 10 or more systems reviewed and unremark able except as noted in history and below Musculoskeletal Reports: back pain, neck pain and extremity pain PFSH PFSH Medical History Anxiety ?F41.9 - Anxiety disorder, unspecified (ICD-10) Hiatal hernia ?K44.9 - Diaphragmatic hernia without obstruction or gangrene (ICD-10) Acid reflux ?K21.9 - Gastro-esophageal reflux disease without esophagitis (ICD-10) Pulmonary embolism ?I26.99 - Other pulmonary embolism without acute cor pulmonale (ICD-10) Asthma ?J45.909 - Unspecified asthma, uncomplicated (ICD-10) Surgical History History of surgical removal of Bartholin’s gland cyst ?Z98.890 - Other specified postprocedural states (ICD-10) ?Z87.42 - Personal history of other diseases of the female genital tract (ICD-10) History of eye surgery ?Z98.890 - Other specified postprocedural states (ICD-10) [place] teeth extracted ?K08.409 - Partial loss of teeth, unspecified cause, unspecified class (ICD- 10) History of hernia repair ?Z98.890 - Other specified postprocedural states (ICD-10) ?Z87.19 - Personal history of other diseases of the digestive system (ICD-10) History of hysterectomy ?Z90.710 - Acquired absence of both cervix and uterus (ICD-10) Meds Home Medications and Allergies Home Medications ?Medication ?Instructions ?Recorded ?Confirmed ?Type albuterol sulfate 90 mcg/actuation 2 puff inhalation Q6H PRN 06/22/23 03/03/24 History aerosol inhaler shortness of breath or wheezing buspirone 15 mg tablet 15 mg PO BID 06/22/23 03/03/24 History cariprazine 3 mg capsule (Vraylar) 6 mg PO DAILY 06/22/23 03/03/24 History erenumab-aooe 70 mg/mL 70 mg subcut 06/22/23 History subcutaneous auto-injector (Aimovig Autoinjector) fluoxetine 40 mg capsule (Prozac) 40 mg PO DAILY 06/22/23 03/03/24 History omeprazole 20 mg capsule,delayed 40 mg PO BID 06/22/23 03/03/24 History release propranolol 20 mg tablet 20 mg PO Q12H 06/22/23 03/03/24 History rizatriptan 5 mg tablet 5 mg PO Q2H PRN migraine headache 06/22/23 03/03/24 History phentermine 37.5 mg tablet 18.75 mg PO DAILY 01/28/24 03/03/24 History (Adipex-P) cyclobenzaprine 10 mg tablet 10 mg PO BID 02/07/24 03/03/24 History baclofen 10 mg tablet mg 02/18/24 History oxycodone-acetaminophen 5 mg-325 1 tab PO TID PRN pain #21 tabs 03/12/24 Rx mg tablet (Percocet) oxycodone-acetaminophen 5 mg-325 1 tab PO BID PRN pain #60 tabs 03/20/24 Rx mg tablet (Percocet) cyclobenzaprine 10 mg tablet 15 mg (1.5 x 10 mg) PO TID PRN 05/08/24 Rx muscle spasm #135 tabs gabapentin 300 mg capsule 600 mg PO BID 06/18/24 06/18/24 History gabapentin 300 mg capsule See Rx Instructions .Route 08/05/24 Rx .COMPLEX #120 caps Allergies Allergy/AdvReac Type Severity Reaction Status Date / Time hydrocodone (From Vicodin) Allergy Hives Verified 03/03/24 09:21 Exam Narrative Exam Narrative: diffuse myofascial pain and tenderness Constitutional Documenting provider has reviewed patient's vital signs: yes Common normals: no apparent distress, oriented x3, healthy appearing, alert and well nourished General appearance: cooperative HENMT Common normals: normocephalic, hearing grossly normal bilaterally and moist oral mucous membranes Head and scalp: normocephalic Eye Common normals: PERRL Pupil: PERRL Neck & C-Spine Common normals: full ROM General: normal visual inspection Cervical spine: pain with cervical ROM, paracervical muscle tenderness and trapezius muscle tenderness Other: pain with flexion extension and rotation positive spurlings decreased sensation bilateral C5,6, 7 Chest Common normals: inspection of chest normal Respiratory Common normals: normal respiratory effort, no retractions and no use of accessory muscles Back & Pelvis Lumbar spine/lower back: normal to inspection, lumbar ROM normal, pain with ROM, paraspinal muscle tenderness, paraspinal muscle spasm and straight leg raise negative bilaterally Other: mild myofascial pain/stiffness and spasming facet mediated pain L2-S1 increased pain with standing/walking, improved with sitting and forward flexion Extremity Common normals: normal to inspection and full ROM Neuro Common normals: oriented x3, CN's II-XII intact bilaterally, moves all extremities, no focal motor deficits, no sensory deficits noted and deep tendon reflexes 2+ bilaterally Sensorium/orientation: alert Motor exam: strength 5/5 throughout and no movement abnormalities noted Psych Common normals: mental status grossly normal, thought process normal, cooperative, affect normal, speech normal and activity/motor behavior normal Speech: normal speech Thought process: normal thought process Results Additional Findings Additional findings: If on a controlled substance or opioids, I have checked an [place] report on this patient and there are no aberrancies noted in the prescribing history.??If on a controlled substance or opioid a drug screen was completed and reviewed within the last year, and if there has not been a drug screen completed we ordered one today to monitor higher risk, state monitored pain medication use. As part of providing excellent, safe, comprehensive care, the following was completed at our patient's visit: 1. A medication reconciliation and review to ensure accurate knowledge of current/active medications, including asking our patients to inform us about any [id number] medications or herbal remedies/nutritional supplements/alternative remedies. 2. A review to specifically ensure our patients have had annual screening for screening for depression, screening for tobacco use, and screening for unhealthy alcohol use. For concerning screenings had a discussion with the patient, provided patient education, and recommended follow-up with primary care provider when appropriate. If patient noted with a risk of falling, they received educa tion on strength, gait, and balance training to prevent future risk of falling. Assessment and Plan Assessment and Plan (1) Lumbar stenosis with neurogenic claudication: (2) Lumbar radiculopathy: (3) Degenerative disc disease, cervical: (4) Cervical radiculopathy: (5) Chronic pain syndrome: (6) Cervical spondylosis: (7) Lumbar spondylosis: (8) Myofascial pain syndrome: Plan bilateral L4-5 TFESI under fluoroscopy for lumbar stenosis with NC update cervical xray and cervical MRI without contrast to further assess cervical DDD and cervical radiculopathy previously discussed SCS stimulation, pt continuing to think about for multilevel low back pain and stenosis with NC continue current medications, finding benefit continue TENS and HEP as tolerated 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
== END 2024-08-20 11:19 | disposition home or self-care (01) ==
LOC: PM 11:19
PROVIDERS: PCP Internal Medicine; Visit Provider Nurse Practitioner
DX: M48.062 Spinal stenosis, lumbar region with neurogenic claudication (principal); M54.16 Radiculopathy, lumbar region; M50.30 Other cervical disc degeneration, unspecified cervical region; M54.12 Radiculopathy, cervical region; G89.4 Chronic pain syndrome; M47.812 Spondylosis without myelopathy or radiculopathy, cervical region; M47.816 Spondylosis without myelopathy or radiculopathy, lumbar region; M79.18 Myalgia, other site
CPT/HCPCS: G0463

== ENCOUNTER 2024-09-01 07:36 | Day surgery (SDC) | payer MEDICARE, MEDICAID, SELFPAY ==
--- OUTSIDE RECORDS SUMMARY | 2024-09-01 07:38 | XMS_ITS | CCD ---
Author Organization [facility] Care Team Providers Care Nonfarm Animal Caretaker Name Role Phone BRADLEY SIMMONS Referring Unavailable [...] MUNIRA Avalos Consulting Unavailable TOYIN, DR MUNIRA Avaols Admitting Unavailable KYARA, DR CAITLYN Griffiths Primary Care Unavail able TOYIN, DR MUNIRA Avalos Consulting Unavailable TOYIN, DR MUNIRA Avalos Attending Unavailable TOYIN, DR MUNIRA Avalos Admitting Unavailable TOYIN, DR MUNIRA Avalos Attending Unavailable TOYIN, DR MUNIRA Avalos Consulting Unavailable KYARA, DR CAITLYN Griffiths Primary Care Unavail able TYOIN, DR MUNIRA Avalos Admitting Unavailable RONNIE, EVETTE [...] Amber Primary Care Provider Jo-Ann Carlson MD [facility] Care Provider KYARA, CAITLYN Griffiths [...] Attending LAQUITA Montgomery Referring Unavailable CAITLYN SPARROW [facility] Care UnavailDORCAS Toure Attending Unavailable DORCAS PERALTA Attending Unavailable KATHRYN, DORCAS Attending Unavailable SHERIE MARIA Attending Unavailable Kyara CLEMONS, [facility] Ness vailamei Gidebbieitis , Sana Doyle Attending Unavailable Kyara CLEMONS, [facility] Ness vailable Gidebbieitis , Sana Doyle Attending Unavailable Kyara CLEMONS, [facility] kolbyilamei Gigina CLEMONS, Sana Doyle Attending Unavailable Martha RUSSO, Dorcas Stewart Attending Christian Sparrow MD, [facility] Ness vailable Allergies Allergy Classification Reported Allergen(s) Allergy Type Date of Onset Reaction(s) Facility (15 sources) Acetaminophen / HYDROcodone; Translations: [HYDROCODONE-ACETA MINOPHEN] Drug Allergy 10-09-2019 [place], [place] (9 sources) Acetaminophen / HYDROcodone; Translations: [Vicodin] Drug Allergy 09-10-2014 [facility] Medications Current Medications Medication Drug Class(es) Dates Sig (Normalized) Sig (Original) Aimovig 140 MG/ML (6 sources) inject 140 mg by subcutaneous injection every month Aimovig 140 MG/ML as directed Subcutaneous monthly Active [id number] 200 actuat albuterol 0.09 mg/actuat metered dose inhaler (19 sources) beta2-Adrenergic Agonist take 2 puff(s) by [...] formoterol fumarate 0.0045 mg/actuat metered dose inhaler (19 sources) Corticosteroid, beta2-Adrenergic Agonist take 2 puff(s) by inhalation in the morning budesonide-formoterol (Symbicort) 160-4.5 MCG/ACT inhaler Inhale 2 puffs in the morning and 2 puffs in the evening. Active take 2 puff(s) by inhalation twi ce daily Symbicort 160-4.5 MCG/ACT 2 puffs Inhalation Twice a day Active busPIRone hydrochloride 30 mg oral tablet (13 sources) take 1 tablet by mouth in the morning busPIRone (Buspar) 30 MG tablet Take 1 tablet by mouth in the morning and 1 tablet before bedtime. Active cariprazine 6 mg oral capsule (19 sources) Atypical Antipsychotic take 1 capsule by mouth in the morning Vraylar 6 MG capsule Take 1 capsule by mouth in the morning. Active take 1 capsule by mo [facility] every twenty-four hours Vraylar 4.5 MG 1 capsule Orally Once a day for 90 days Active cyclobenzaprine hydrochloride 10 mg oral tablet (14 sources) Muscle Relaxant take 1 tablet by mouth twice daily as needed cyclobenzaprine (Flexeril) 10 MG tablet Take 1 tablet by mouth 2 (two) times a day as needed Active take [facility] daily as needed for muscle spasms cyclobenzaprine (FLEXERIL) 5 MG tablet T toñito 5 mg by mouth 2 times daily as needed for Muscle spasms 0 Active doxycycline hyclate 100 mg oral tablet (10 sources) Tetracycline-class Drug Start: 05-23-2024 End: 06-02-2024 [...] Active 1 ml erenumab-aooe 140 mg/ml auto-injector (17 sources) Start: 10-25-19 End: 10-25-19 24 inject [...] once daily. gabapentin 300 mg oral capsule (13 sources) Anti-epileptic Agent Start: 05-09-20 take 1 capsule by mouth in the morning gabapentin (Neurontin) 300 MG capsule Take 300 mg by mouth in the morning and 300 mg before bedtime. 05/09/2024 Active hydrOXYzine hydrochloride 10 mg oral tablet (4 sources) Antihistamine hydrOXYzine HCl 10 MG as directed Orally every 8 hrs for 30 days Active ketoconazole 20 mg/ml medicated shampoo (13 sources) Azole Antifungal Start: 05-26-20 ketoconazole (NIZOral) 2 % shampoo Indications: Folliculitis [...] 05/23/2024 Discontinued lamoTRIgine 100 mg oral tablet (10 sources) Mood Stabilizer, Anti-epileptic Agent End: 06-16-2024 [...] 0 Active LORazepam 0.5 mg oral tablet (19 sources) Benzodiazepine Start: 10-19-2021 take 1 tablet [...] needed Active take 1 tablet by anu every twenty-four hours Ativan 0.5 MG 1 [...] time(s) a day for 30 days Active [place]-3 Fatty Acids (FISH OIL OMEGA-3 PO) (5 sources) take 2 tablets by mouth twice daily in the morning [place]-3 Fatty Acids (FISH OIL OMEGA-3 PO) Take [...] Active Start: 11-07-2018 take 1 capsule by [facility] once daily Omeprazole 40 mg capsule take 1 capsule by mouth once daily as directed 0 11/07/2018 Active take 1 capsule by [facility] twice daily Omeprazole 40 MG 1 capsule 30 minutes before morning meal Orally twice a day Not-Taking take 2 capsules by [facility] once daily omeprazole (PRILOSEC) 20 MG delayed release capsule Take 40 mg by mouth daily 0 Active Comment on above: take 1 capsule by [facility] once daily as directed ondansetron 4 mg oral tablet (19 sources) Serotonin-3 Receptor Antagonist Start: 05-25-2021 take 1 tablet by mouth once daily Zofran ODT 4 MG 1 tablet on the tongue and allow to dissolve Orally Once a day for 30 day(s) May, Active take 1 tablet by anu th every eight hours as needed ondansetron ODT (Zofran-ODT) 4 MG disintegrating tablet 4 mg every 8 (eight) hours if needed Active predniSONE 20 mg oral tablet (2 sources) Start: 05-26-2024 End: 05-31-2024 take 1 tablet by mouth in the morning predniSONE (Deltasone) 20 MG tablet Indications: Rash Take 1 tablet (20 mg) by mouth in the morning and 1 tablet (20 mg) before bedtime. Do all this for 5 days. 10 tablet 05/26/2024 05/31/2024 Active propranolol hydrochloride 20 mg oral tablet (20 sources) beta-Adrenergi c Gianni propranolol (Inderal) 20 MG tablet 20 mg in [...] Semaglutide-Weight Management (Wegovy) 0.5 MG/0.5ML solution auto-injector (11 sources) Start: End: inject 0.5 mg by subcutaneous injection every [...] week 6 mL 05/29/2024 Active Start: 05-14-2024 End: 05-29-2024 inject 0.5 mg by subcutaneous injection every week Semaglutide-Weight Management (Wegovy) 0.5 MG/0.5ML solution auto-injector Indications: Obesity, Class II, BMI 35-39.9 Inject 0.5 mg under the skin 1 (one) time per week 6 mL 05/14/2024 05/29/2024 Discontinued (Reorder) Start: 05-14-2024 inject 0.5 mg by sub [...] release oral tablet (4 sources) Start: 11-21-19 take 1 tablet by mouth twice daily lithium carbonate ER 450 mg CR tablet Take 450 mg by mouth twice daily. 0 11/20/2018 Active Comment on above: Take 450 mg by mouth twice daily. perphenazine 2 mg oral tablet (5 sources) Phenothiazine Start: 11-21-19 take 1 tablet by mouth twice daily [...] and 1 tablet every evening 45 tablet 10/25/2022 Active Start: 07-05-2021 End: 01-09-2022 primidone [...] Translations: [Dermatitis, unspecified] 08-04-2024 Episodic Anxiety disorders (13 sources) Anxiety; Translations: [Anxiety disorder, unspecified] Onset: 05-14-2024 05-14-2024 Chronic Asthma (13 sources) Asthma; Translations: [Unspecified asthma, uncomplicated] Onset: 12-08-2020 05-14-2024 Chronic Coma; stupor; and brain damage (3 sources) Daytime somnolence; Translations: [Somnolence] Episodic Diseases of white blood cells (1 source) Decreased white blood cell count, unspecified; Translations: [Decreased white blood cell count, unspecified] Onset: 02-29-2024 Chronic Disorders of lipid metabolism (3 sources) Dyslipidemia; Translations: [Mixed hyperlipidemia] Onset: 05-05-2024 06-16-2024 Chronic Esophageal disorders (16 sources) Gastroesophageal reflux disease without esophagitis; Translations: [Gastro-esophageal reflux disease without esophagitis] Onset: 12-08-2020 05-14-2024 Chronic Essential hypertension (1 source) Essential (primary) hypertension; Translations: [Essential (primary) hypertension] Onset: 02-29-2024 Chronic Headache; including migraine (13 sources) Migraine; Translations: [Migraine, unspecified, not intractable, without status migrainosus] Onset: 05-14-2024 05-14-2024 Chronic Mood disorders (20 sources) Bipolar disorder; Translations: [Bipolar disorder, unspecified] [...] without cataplexy] Chronic Other nervous system disorders (13 sources) Narcolepsy; 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] Onset: 05-14-2024 05-14-2024 Chronic Other nervous system disorders (1 source) Other chronic pain; Translations: [Other chronic pain] Onset: 03-08-2024 Chronic Other nervous system disorders (1 source) Chronic pain syndrome; Translations: [Chronic pain syndrome] Onset: 01-23-2024 Chronic Other nervous system disorders (1 source) Enhanced physiological tremor; Translations: [Tremor, unspecified] Episodic Other nervous system disorders (13 sources) Tremor; Translations: [Tremor, unspecified] Onset: 05-14-2024 05-14-2024 Episodic Other nutritional; endocrine; and metabolic disorders (18 sources) Obese class II; Translations: [Obesity, Class [...] disorder, unspecified] 05-23-2024 Episodic Residual codes; unclassified (13 sources) Obstructive sleep apnea syndrome; Translations: [Obstructive [...] Classification Problem Date Documented Da te Episodic/Chronic Administrative/social admission (2 sources) Patient encounter status; Translations: [Persons encountering health services in other specified circumstances] 05-14-2024 Episodic Cardiac dysrhythmias (2 sources) Palpitations; Translations: [Tachycardia, unspecified] Onset: 02-29-2024 Episodic Genitourinary symptoms and ill-defined conditions (1 source) Hematuria, unspecified; Translations: [Hematuria, unspecified] Onset: 03-23-2024 Episodic Malaise and fatigue (14 sources) Fatigue; Translations: [Other fatigue] Onset: 02-23-2022 [...] nigricans; Translations: [Acanthosis nigricans] Onset: 02-29-2024 Episodic Other skin disorders (1 source) Eruption; Translations: [Rash and other nonspecific skin eruption] 05-26-2024 Episodic Residual codes; unclassified (1 source) Flushing; Translations: [Flushing] Onset: 02-29-2024 Episodic Spondylosis; intervertebral disc disorders; other back problems (12 sources) Cervical disc disorder with radiculopathy, unspecified cervical region; Translations: [Cervicalgia] Onset: 10-13-2021 Episodic Urinary tract infections (1 source) Urinary tract infection, site not specified; Translations: [Urinary tract infection, site not specified] Onset: 03-23-2024 Episodic Results Test Name Value Interpretation Reference Range [facility] COMPREHENSIVE METABOLIC PANE Mika 05-19-2024 Albumin [Mass/Vol] 4.6 g/dL Normal 3.2-5.3 [facility] Comment on above: Performed By: #### C EVIN, 77615-5, THYR, CBCA, 94358-4 #### [facility] ([id number]) [address], [address] [place] [address] ALP [Catalytic activity/Vol] 78 U/L Normal 39-130 [facility] Comment on above: Performed By: #### aMriam CLEARY, 17578-8, THYR, CBCA, 31122-6 #### [facility] ([id number]) [address], [address] [place] [address] ALT [Catalytic activity/Vol] 85 U/L High 0-31 [facility] Comment on above: Performed By: #### C EVIN, 47435-1, THYR, CBCA, 62933-7 #### [facility] ([id number]) [address], [address] [place] [address] Anion gap [Moles/Vol] 15 mmol/L Normal 5-15 [facility] Comment on above: Performed By: #### Mariam CLEARY, 95479-2, THYR, CBCA, 53343-4 #### [facility] ([id number]) [address], [address] [place] [address] AST [Catalytic activity/Vol] 54 U/L High 0-41 [facility] Comment on above: Performed By: #### C EVIN, 63825-8, THYR, CBCA, 67289-3 #### [facility] ([id number]) [address], [address] [place] [address] Bilirubin [Mass/Vol] 0.6 mg/dL Normal 0.3-1.2 [facility] Comment on above: Performed By: #### C EVIN, 70031-2, THYR, CBCA, 60725-9 #### [facility] ([id number]) [address], [address] [place] [address] Calcium [Mass/Vol] 9.6 mg/dL Normal 8.5-10.5 [facility] Comment on above: Performed By: #### C EVIN, 68371-8, THYR, CBCA, 08491-3 #### [facility] ([id number]) [address], [address] [place] [address] Chloride [Moles/Vol] 102 mmol/L Normal 98-109 [facility] Comment on above: Performed By: #### C EVIN, 69583-7, THYR, CBCA, 26979-1 #### [facility] ([id number]) [address], [address] [place] [address] CO2 [Moles/Vol] 19 mmol/L Low 22-32 [facility] Comment on above: Performed By: #### C EVIN, 27575-8, THYR, CBCA, 28380-7 #### [facility] ([id number]) [address], [address] [place] [address] Creatinine [Mass/Vol] 0.89 mg/dL Normal 0.40-1.00 [facility] Comment on above: Result Comment: METH OD TRACEABLE TO IDMS STANDARD Performed By: #### C EVIN, 68755-0, THYR, CBCA, 14922-0 #### [facility] ([id number]) [address], [address] [place] [address] GFR/1.73 sq M.predicted among non-blacks MDRD (S/P/Bld) [Vol rate/Area] 86 mL/min/{1.73_m2} Normal >59 [facility] Comment on above: Result Comment: Reported eGFR is based on the CKD-EPI 2020 equation that does not use a race coefficient. Performed By: #### C EVIN, 25003-4, THYR, CBCA, 49716-7 #### [facility] ([id number]) [address], [address] [place] [address] Glucose [Mass/Vol] 95 mg/dL Normal 65-99 [facility] Comment on above: Performed By: #### C EVIN, 97807-9, THYR, CBCA, 34417-6 #### [facility] ([id number]) [address], [address] [place] [address] Potassium [Moles/Vol] 4.0 mmol/L Normal 3.5-5.0 [facility] Comment on above: Performed By: #### Mariam CLEARY, 08357-8, THYR, CBCA, 26843-6 #### [facility] ([id number]) [address], [address] [place] [address] Protein [Mass/Vol] 7.0 g/dL Normal 6.0-8.0 [facility] Comment on above: Performed By: #### C EVIN, 47633-8, THYR, CBCA, 64145-0 #### [facility] ([id number]) [address], [address] [place] [address] Sodium [Moles/Vol] 136 mmol/L Normal 134-146 [facility] Comment on above: Performed By: #### C EVIN, 16164-8, THYR, CBCA, 33648-2 #### [facility] ([id number]) [address], [address] [place] [address] Urea nitrogen [Mass/Vol] 10 mg/dL Normal 5-23 [facility] Comment on above: Performed By: #### Mariam CLEARY, 44295-7, THYR, CBCA, 09614-9 #### [facility] ([id number]) [address], [address] [place] [address] DIRECT LDLon 05-19-2024 Cholesterol in LDL [Mass/Vol] 181 mg/dL High <130 [facility] Comment on above: Result Comment: LDL <100 mg/dL - Desirable LDL 130-159 mg/dL - Borderline High Risk LDL >160 mg/dL - High Risk Performed By: #### Mariam CLEARY, 04372-5, THYR, CBCA, 69014-9 #### [facility] ([id number]) [address], [address] [place] [address] LIVER PANELon 05-19-2024 Bilirubin.direct [Mass/Vol] 0.1 mg/dL Normal 0.0-0.4 [facility] Comment on above: Performed By: #### Mariam CLEARY, 39668-5, THYR, CBCA, 50203-4 #### [facility] ([id number]) [address], [address] [place] [address] Lipid 1996 panelon Cholesterol [Mass/Vol] 276 mg/dL High 150-200 [facility] Comment on above: Performed By: #### Mariam CLEARY, 15367-4, THYR, CBCA, 28905-7 #### [facility] ([id number]) [address], [address] [place] [address] Cholesterol in HDL [Mass/Vol] 42 mg/dL Normal >39 [facility] Comment on above: Result Comment: HDL <40 mg/dL - High Risk HDL > or = 40mg/dL- Desirable HDL >60 mg/dL - Negative Risk Performed By: #### C MP, 16946-4, THYR, CBCA, 51192-8 #### [facility] ([id number]) [address], [address] [place] [address] Cholesterol in VLDL [Mass/Vol] 98 mg/dL High 0-30 [facility] Comment on above: Performed By: #### C MP, 93637-4, THYR, CBCA, 81873-1 #### [facility] ([id number]) [address], [address] [place] [address] CHOLESTEROL:HDL 6.6 High 1.0-5.0 [facility] Comment on above: Performed By: #### C MP, 37140-3, THYR, CBCA, 61262-1 #### [facility] ([id number]) [address], [address] [place] [address] LDL (CALC) RESULT NOT REPORTED DUE TO HIGH TRIGLYCERIDE Normal <130 [facility] Comment on above: Performed By: #### C MP, 23376-3, THYR, CBCA, 60919-9 #### [facility] ([id number]) [address], [address] [place] [address] Triglyceride [Mass/Vol] 488 mg/dL High 27-150 [facility] Comment on above: Performed By: #### C MP, 56296-2, THYR, CBCA, 94778-0 #### [facility] ([id number]) [address], [address] [place] [address] MR LUMBAR SPINE WO CONTon MR LUMBAR [...] Bruce DO on 03/26/2024 1:45 PM Normal [facility] CBC AND AUTO DIFFon 03-23-20 24 ABSOLUTE BASOPHIL 0.0 X10E9/L Normal 0.0-0.2 [facility] Comment on above: Performed By: #### C MP, 38531-3, THYR, CBCA, 08991-6 #### [facility] ([id number]) [address] [place] [address] ABSOLUTE NEUTROPHIL 4.7 X10E9/L Normal 1.5-6.6 [facility] Comment on above: Performed By: #### C EVIN, 58011-9, THYR, CBCA, 63082-6 #### [facility] ([id number]) [address], [address] [place] [address] Basophils/100 WBC (Bld) 0.3 % Normal [facility] Comment on above: Performed By: #### C EVIN, 86003-9, THYR, CBCA, 05972-6 #### [facility] ([id number]) [address], [address] [place] [address] Eosinophils (Bld) [#/Vol] 0.0 10*3/uL Normal 0.0-0.4 [facility] Comment on above: Performed By: #### C EVIN, 77877-2, THYR, CBCA, 17183-0 #### [facility] ([id number]) [address], [address] [place] [address] Eosinophils/100 WBC (Bld) 0.4 % Normal [facility] Comment on above: Performed By: #### C EVIN, 62891-9, THYR, CBCA, 12201-2 #### [facility] ([id number]) [address], [address] [place] [address] Erythrocyte distribution width (RBC) [Ratio] 13.5 % Normal 11.5-15.0 [facility] Comment on above: Performed By: #### C EVIN, 77374-2, THYR, CBCA, 41396-6 #### [facility] ([id number]) [address], [address] [place] [address] Hematocrit (Bld) [Volume fraction] 44.6 % Normal 35-47 [facility] Comment on above: Performed By: #### C EVIN, 35733-8, THYR, CBCA, 04553-7 #### [facility] ([id number]) [address], [address] [place] [address] Hemoglobin (Bld) [Mass/Vol] 15.6 g/dL High 11.7-15.5 [facility] Comment on above: Performed By: #### C EVIN, 85431-7, THYR, CBCA, 39560-9 #### [facility] ([id number]) [address], [facility] [address] [place] [address] Lymphocytes (Bld) [#/Vol] 0.5 10*3/uL Low 1.0-3.5 [facility] Comment on above: Performed By: #### C EVIN, 44824-0, THYR, CBCA, 95262-3 #### [facility] ([id number]) [address] [address] [place] [address] Lymphocytes/100 WBC (Bld) 8.7 % Normal [facility] Comment on above: Performed By: #### C EVIN, 73988-0, THYR, CBCA, 47340-8 #### [facility] ([id number]) [address] [address] [place] [address] MCH (RBC) [Entitic mass] 32.5 pg Normal 27-34 [facility] Comment on above: Performed By: #### C MP, 09995-5, THYR, CBCA, 26348-3 #### [facility] ([id number]) [address] [address] [place] [address] MCHC (RBC) [Mass/Vol] 34.9 g/dL Normal 32-36 [facility] Comment on above: Performed By: #### C MP, 56586-9, THYR, CBCA, 12403-8 #### [facility] ([id number]) [address] [address] [place] [address] MCV (RBC) [Entitic vol] 93 fL Normal 80-100 [facility] Comment on above: Performed By: #### C MP, 74568-3, THYR, CBCA, 28882-3 #### [facility] ([id number]) [address], [address] [place] [address] Monocytes (Bld) [#/Vol] 0.0 10*3/uL Normal 0-0.9 [facility] Comment on above: Performed By: #### C MP, 18006-3, THYR, CBCA, 06926-5 #### [facility] ([id number]) [address], [address] [place] [address] Monocytes/100 WBC (Bld) 0.6 % Normal [facility] Comment on above: Performed By: #### C MP, 17979-5, THYR, CBCA, 41124-1 #### [facility] ([id number]) [address], [address] [place] [address] Neutrophils/100 WBC (Bld) 90.0 % Normal [facility] Comment on above: Performed By: #### C MP, 44826-5, THYR, CBCA, 29629-9 #### [facility] ([id number]) [address], [address] [place] [address] Platelet mean volume (Bld) [Entitic vol] 7.2 fL Normal 7-12 [facility] Comment on above: Performed By: #### C MP, 70096-0, THYR, CBCA, 61206-0 #### [facility] ([id number]) [address], [address] [place] [address] Platelets (Bld) [#/Vol] 286 10*3/uL Normal 150-450 [facility] Comment on above: Performed By: #### C MP, 85355-5, THYR, CBCA, 25689-2 #### [facility] ([id number]) [address], [address] [place] [address] RBC COUNT 4.80 X10E12/L Normal 3.80-5.20 [facility] Comment on above: Performed By: #### C EVIN, 10431-4, THYR, CBCA, 27230-7 #### [facility] ([id number]) [address], [facility] [address] [place] [address] WBC (Bld) [#/Vol] 5.3 10*3/uL Normal 4.0-11.0 [facility] Comment on above: Performed By: #### C EVIN, 03632-8, THYR, CBCA, 91261-7 #### [facility] ([id number]) [address], [address] [place] [address] COMPREHENSIVE METABOLIC PANE Mika 03-23-2024 Albumin [Mass/Vol] 4.2 g/dL Normal 3.2-5.3 [facility] Comment on above: Performed By: #### C EVIN, 82187-6, THYR, CBCA, 61966-8 #### [facility] ([id number]) [address] [address] [place] [address] ALP [Catalytic activity/Vol] 115 U/L Normal 39-130 [facility] Comment on above: Performed By: #### C EVIN, 05334-5, THYR, CBCA, 82400-5 #### [facility] ([id number]) [address], [address] [place] [address] ALT [Catalytic activity/Vol] 81 U/L High 0-31 [facility] Comment on above: Performed By: #### C EVIN, 11943-0, THYR, CBCA, 77711-7 #### [facility] ([id number]) [address], [address] [place] [address] Anion gap [Moles/Vol] 14 mmol/L Normal 5-15 [facility] Comment on above: Performed By: #### C EVIN, 89823-4, THYR, CBCA, 07244-7 #### [facility] ([id number]) [address], [address] [place] [address] AST [Catalytic activity/Vol] 48 U/L High 0-41 [facility] Comment on above: Performed By: #### C EVIN, 32842-7, THYR, CBCA, 40113-1 #### [facility] ([id number]) [address], [address] [place] [address] Bilirubin [Mass/Vol] 1.3 mg/dL High 0.3-1.2 [facility] Comment on above: Performed By: #### C EVIN, 42357-5, THYR, CBCA, 39227-5 #### [facility] ([id number]) [address], [address] [place] [address] Calcium [Mass/Vol] 9.3 mg/dL Normal 8.5-10.5 [facility] Comment on above: Performed By: #### C EVIN, 57307-5, THYR, CBCA, 97266-0 #### [facility] ([id number]) [address], [address] [place] [address] Chloride [Moles/Vol] 97 mmol/L Low 98-109 [facility] Comment on above: Performed By: #### C EVIN, 04527-6, THYR, CBCA, 51305-1 #### [facility] ([id number]) [address], [address] [place] [address] CO2 [Moles/Vol] 22 mmol/L Normal 22-32 [facility] Comment on above: Performed By: #### C EVIN, 05303-2, THYR, CBCA, 21581-4 #### [facility] ([id number]) [address], [address] [place] [address] Creatinine [Mass/Vol] 0.91 mg/dL Normal 0.40-1.00 [facility] Comment on above: Result Comment: METH OD TRACEABLE TO IDMS STANDARD Performed By: #### C EVIN, 34150-9, THYR, CBCA, 88409-7 #### [facility] ([id number]) [address], [address] [place] [address] GFR/1.73 sq M.predicted among non-blacks MDRD (S/P/Bld) [Vol rate/Area] 83 mL/min/{1.73_m2} Normal >59 [facility] Comment on above: Result Comment: Reported eGFR is based on the CKD-EPI 2020 equation that does not use a race coefficient. Performed By: #### C VEIN, 27716-1, THYR, CBCA, 33853-5 #### [facility] ([id number]) [address], [address] [place] [address] Glucose [Mass/Vol] 110 mg/dL High 65-99 [facility] Comment on above: Performed By: #### C EVIN, 81568-2, THYR, CBCA, 44016-5 #### [facility] ([id number]) [address], [address] [place] [address] Potassium [Moles/Vol] 3.8 mmol/L Normal 3.5-5.0 [facility] Comment on above: Performed By: #### C EVIN, 25730-4, THYR, CBCA, 75764-5 #### [facility] ([id number]) [address], [address] [place] [address] Protein [Mass/Vol] 8.0 g/dL Normal 6.0-8.0 [facility] Comment on above: Performed By: #### C EVIN, 64354-3, THYR, CBCA, 96520-2 #### [facility] ([id number]) [address], [address] [place] [address] Sodium [Moles/Vol] 133 mmol/L Low 134-146 [facility] Comment on above: Performed By: #### C MP, 33715-9, THYR, CBCA, 24041-8 #### [facility] ([id number]) [address], [address] [place] [address] Urea nitrogen [Mass/Vol] 13 mg/dL Normal 5-23 [facility] Comment on above: Performed By: #### C MP, 31495-1, THYR, CBCA, 00138-8 #### [facility] ([id number]) [address], [address] [place] [address] CT CTA CHESTon 03-23-2024 CT CTA CHEST [...] Alfonso Packer MD on 03/23/2024 10:42 PM Joe Stuart MD have personally reviewed the image(s) and agree with and/or edited the report Finalized by Joe Chaparro MD on 03/23/2024 10:52 PM Normal [facility] Fibrin D-dimer DDU (PPP) [Ma ss/Vol]on 03-23-2024 D DIMER 336 ng/mL DDU High <255 [facility] Comment on above: Result Comment: Results [...] D-Dimer level. Performed By: #### C EVIN, 90636-5, THYR, CBCA, 99935-2 #### [facility] ([id number]) [address], [address] [place] [address] HCG ( test) Ql (U)o n 03-23-2024 Beta HCG ( test) Ql (U) Negative Normal NEG [facility] Comment on above: Performed By: #### C EVIN, 43353-8, THYR, CBCA, 58971-9 #### [facility] ([id number]) [address] [address] [place] [address] LIPASEon 03-23-2024 Lipase [Catalytic activity/Vol] 30 U/L Normal 17-40 [facility] Comment on above: Performed By: #### C EVIN, 02933-1, THYR, CBCA, 54734-3 #### [facility] ([id number]) [address], [address] [place] [address] THYROID PROFILEon 03-23-2024 Free T4 [Mass/Vol] 0.74 ng/dL Normal 0.61-1.60 [facility] Comment on above: Performed By: #### C EVIN, 43721-5, THYR, CBCA, 32275-1 #### [facility] ([id number]) [address] [address] [place] [address] TSH 1.64 uIU/mL Normal 0.49-4.67 [facility] Comment on above: Performed By: #### Mariam CLEARY, 29190-7, THYR, CBCA, 81749-8 #### [facility] ([id number]) [address] [facility] [place] [address] Troponin I.cardiac High sens itivity method [Mass/Vol]on 03-23-2024 1 HOUR TROP I, HIGH SENSITIVITY 3 ng/L Normal <16 [facility] Comment on above: Performed By: #### Mariam CLEARY, 07069-6, THYR, CBCA, 30619-5 #### [facility] ([id number]) [address] [facility] [facility] [place] [address] TROPONIN I, HIGH SENSITIVITY 2 ng/L Normal <16 [facility] Comment on above: Performed By: #### Mariam CLEARY, 02761-1, THYR, CBCA, 91541-3 #### [facility] ([id number]) [address] [facility] [place] [address] URINE CULTUREon 03-23-2024 Bacteria identified Cx Nom [...] F TRIMETH/SULFAMETHOXAZO LE S <=1/19 F Susceptible [facility] Comment on above: Performed By: #### Mariam CLEARY, 78730-3, THYR, CBCA, 61799-4 #### [facility] ([id number]) [address], [address] [place] [address] URN MACROSCOPIC NURon 2023 BILIRUBIN LUL Negative Normal NEG [facility] Comment on above: Performed By: #### C EVIN, 23285-2, THYR, CBCA, 90317-0 #### [facility] ([id number]) [address], [address] [place] [address] BLOOD/HGB LUL Small Abnormal NEG [facility] Comment on above: Performed By: #### C MP, 31183-7, THYR, CBCA, 27740-9 #### [facility] ([id number]) [address], [address] [place] [address] GLUCOSE LUL Negative Normal NEG [facility] Comment on above: Performed By: #### C EVIN, 02488-1, THYR, CBCA, 79120-6 #### [facility] ([id number]) [address], [address] [place] [address] KETONES LUL Negative Normal NEG [facility] Comment on above: Performed By: #### C EVIN, 31195-4, THYR, CBCA, 14037-4 #### [facility] ([id number]) [address], [address] [place] [address] LEUKOCYTE ESTERASE LUL Small Abnormal NEG [facility] Comment on above: Performed By: #### Mariam CLEARY, 25002-4, THYR, CBCA, 20607-6 #### [facility] ([id number]) [address], [address] [place] [address] NITRITE LUL Negative Normal NEG [facility] Comment on above: Performed By: #### C EVIN, 48369-8, THYR, CBCA, 07478-1 #### [facility] ([id number]) [address], [address] [place] [address] PH LUL 5.5 Normal 5.0-8.5 [facility] Comment on above: Performed By: #### C MP, 64672-7, THYR, CBCA, 34577-8 #### [facility] ([id number]) [address], [address] [place] [address] PROTEIN LUL Negative Normal NEG [facility] Comment on above: Performed By: #### C MP, 29478-9, THYR, CBCA, 28873-4 #### [facility] ([id number]) [address], [address] [place] [address] SPECIFIC GRAVITY LUL 1.010 Normal 1.003-1.035 [facility] Comment on above: Performed By: #### C MP, 68662-2, THYR, CBCA, 57922-6 #### [facility] ([id number]) [address], [address] [place] [address] UROBILINOGEN LUL 0.2 eu/dL Normal <1.1 [facility] Comment on above: Performed By: #### C MP, 29653-7, THYR, CBCA, 84990-9 #### [facility] ([id number]) [address], [facility] [address] [place] [address] CBC AND AUTO DIFFon 02-29-20 24 ABSOLUTE BASOPHIL 0.0 X10E9/L Normal 0.0-0.2 [facility] Comment on above: Performed By: #### C BCA, HA1C, THYR, 56590-5 #### [facility] ([id number]) [address], [address] [place] [address] ABSOLUTE NEUTROPHIL 2.8 X10E9/L Normal 1.5-6.6 [facility] Comment on above: Performed By: #### C BCA, HA1C, THYR, 62619-8 #### [facility] ([id number]) [address] [address] [place] [address] Basophils/100 WBC (Bld) 0.7 % Normal [facility] Comment on above: Performed By: #### C BCA, HA1C, THYR, 80768-9 #### [facility] ([id number]) [address], [address] [place] [address] Eosinophils (Bld) [#/Vol] 0.1 10*3/uL Normal 0.0-0.4 [facility] Comment on above: Performed By: #### C BCA, HA1C, THYR, 08091-9 #### [facility] ([id number]) [address], [facility] [address] [place] [address] Eosinophils/100 WBC (Bld) 2.1 % Normal [facility] Comment on above: Performed By: #### C BCA, HA1C, THYR, 85512-7 #### [facility] ([id number]) [address], [address] [place] [address] Erythrocyte distribution width (RBC) [Ratio] 13.7 % Normal 11.5-15.0 [facility] Comment on above: Performed By: #### C JORGE L, HA1C, THYR, 81281-2 #### [facility] ([id number]) [address], [address] [place] [address] Hematocrit (Bld) [Volume fraction] 45.0 % Normal 35-47 [facility] Comment on above: Performed By: #### C BCA, HA1C, THYR, 44692-7 #### [facility] ([id number]) [address], [address] [place] [address] Hemoglobin (Bld) [Mass/Vol] 15.5 g/dL Normal 11.7-15.5 [facility] Comment on above: Performed By: #### C BCA, HA1C, THYR, 08115-6 #### [facility] ([id number]) [address], [address] [place] [address] Lymphocytes (Bld) [#/Vol] 1.4 10*3/uL Normal 1.0-3.5 [facility] Comment on above: Performed By: #### C JORGE L, HA1C, THYR, 65433-3 #### [facility] ([id number]) [address], [address] [place] [address] Lymphocytes/100 WBC (Bld) 28.9 % Normal [facility] Comment on above: Performed By: #### C JORGE L, HA1C, THYR, 24477-5 #### [facility] ([id number]) [address] [address] [place] [address] MCH (RBC) [Entitic mass] 32.0 pg Normal 27-34 [facility] Comment on above: Performed By: #### C JORGE L, HA1C, THYR, 69251-8 #### [facility] ([id number]) [address], [facility] [address] [place] [address] MCHC (RBC) [Mass/Vol] 34.3 g/dL Normal 32-36 [facility] Comment on above: Performed By: #### Mariam COATS, HA1C, THYR, 67565-9 #### [facility] ([id number]) [address], [address] [place] [address] MCV (RBC) [Entitic vol] 93 fL Normal 80-100 [facility] Comment on above: Performed By: #### C BCA, HA1C, THYR, 19432-2 #### [facility] ([id number]) [address] [address] [place] [address] Monocytes (Bld) [#/Vol] 0.4 10*3/uL Normal 0-0.9 [facility] Comment on above: Performed By: #### C BCA, HA1C, THYR, 79253-2 #### [facility] ([id number]) [address], [address] [place] [address] Monocytes/100 WBC (Bld) 8.4 % Normal [facility] Comment on above: Performed By: #### C BCA, HA1C, THYR, 41022-8 #### [facility] ([id number]) [address], [address] [place] [address] Neutrophils/100 WBC (Bld) 59.9 % Normal [facility] Comment on above: Performed By: #### C BCA, HA1C, THYR, 74754-2 #### [facility] ([id number]) [address], [address] [place] [address] Platelet mean volume (Bld) [Entitic vol] 8.5 fL Normal 7-12 [facility] Comment on above: Performed By: #### C BCA, HA1C, THYR, 88550-0 #### [facility] ([id number]) [address], [address] [place] [address] Platelets (Bld) [#/Vol] 272 10*3/uL Normal 150-450 [facility] Comment on above: Performed By: #### C BCA, HA1C, THYR, 75025-4 #### [facility] ([id number]) [address] [place] [address] RBC COUNT 4.83 X10E12/L Normal 3.80-5.20 [facility] Comment on above: Performed By: #### C BCA, HA1C, THYR, 31527-2 #### [facility] ([id number]) [address], [address] [place] [address] WBC (Bld) [#/Vol] 4.7 10*3/uL Normal 4.0-11.0 [facility] Comment on above: Performed By: #### C BCA, HA1C, THYR, 41068-7 #### [facility] ([id number]) [address], [address] [place] [address] HGB A1C (GLYCO-HGB)on 2023 Glucose [Mass/Vol] 97 mg/dL Normal [facility] Comment on above: Performed By: #### C JORGE L, HA1C, THYR, 72968-6 #### [facility] ([id number]) [address], [address] [place] [address] HbA1c (Bld) [Mass fraction] 5.0 % Normal 4.4-5.6 [facility] Comment on above: Result Comment: NOTE ADA Guidelines Result HgbA1c Normal : less than 5.7 % Prediabetes : 5.7 % to 6.4 % Diabetes : > 6.4 % Use with caution in patients with abnormal hemoglobin variants as the half-life of red blood cells and in vivo glycation rates are affected. Performed By: #### C BCA, HA1C, THYR, 76716-9 #### [facility] ([id number]) [address], [address] [place] [address] THYROID PROFILEon 02-29-2024 Free T4 [Mass/Vol] 0.67 ng/dL Normal 0.61-1.60 [facility] Comment on above: Performed By: #### C BCA, HA1C, THYR, 14815-7 #### [facility] ([id number]) [address], [facility] [address] [place] [address] TSH 1.84 uIU/mL Normal 0.49-4.67 [facility] Comment on above: Performed By: #### C BCA, HA1C, THYR, 18851-7 #### [facility] ([id number]) [address] [address] [place] [address] Vitamin D+Metabolites [Mass/ Vol]on 02-29-2024 VITAMIN D 25 HYD TOT 32.3 ng/mL Normal 30-100 [facility] Comment on above: Result Comment: Vitamin D status 25 [place] Vitamin D Deficiency <20 ng/mL Insufficiency 20-29 ng/mL Sufficiency 30-100 ng/mL Toxicity >100 ng/mL NOTE: A pediatric reference range has not been established by the primer and powder canning leader of this kit. The [place] [employer] recommends a Vitamin D level of = or >20ng/mL in infants and children. Performed By: #### C MP, 53702-0, THYR, CBCA, 50703-1 #### [facility] ([id number]) [address], [address] [place] [address] XR LUMBAR SPINE AP, LATERAL, FLEXION AND [...] Chun MD on 12/03/2023 10:04 AM Normal [facility] XR SPINE CERVICAL 3 VWS OR L [facility] 12-02-2023 XR SPINE CERVICAL 3 VWS OR [...] Jay MD on 12/02/2023 7:06 AM Normal [facility] CBC AND AUTO DIFFon 11-30-19 ABSOLUTE BASOPHIL 0.0 X10E9/L Normal 0.0-0.2 [facility] Comment on above: Performed By: #### C EVIN, 98219-3, THYR, CBCA, 27631-6 #### [facility] ([id number]) [address], [address] [place] [address] ABSOLUTE NEUTROPHIL 2.5 X10E9/L Normal 1.5-6.6 [facility] Comment on above: Performed By: #### C EVIN, 36987-5, THYR, CBCA, 41204-5 #### [facility] ([id number]) [address] [address] [place] [address] Basophils/100 WBC (Bld) 0.5 % Normal [facility] Comment on above: Performed By: #### C EVIN, 04845-8, THYR, CBCA, 24074-6 #### [facility] ([id number]) [address], [address] [place] [address] Eosinophils (Bld) [#/Vol] 0.0 10*3/uL Normal 0.0-0.4 [facility] Comment on above: Performed By: #### C EVIN, 35212-7, THYR, CBCA, 79667-5 #### [facility] ([id number]) [address], [address] [place] [address] Eosinophils/100 WBC (Bld) 1.2 % Normal [facility] Comment on above: Performed By: #### C EVIN, 16899-9, THYR, CBCA, 91883-9 #### [facility] ([id number]) [address], [address] [place] [address] Erythrocyte distribution width (RBC) [Ratio] 13.7 % Normal 11.5-15.0 [facility] Comment on above: Performed By: #### C EVIN, 51204-6, THYR, CBCA, 01490-5 #### [facility] ([id number]) [address], [address] [place] [address] Hematocrit (Bld) [Volume fraction] 43.0 % Normal 35-47 [facility] Comment on above: Performed By: #### C EVIN, 73183-1, THYR, CBCA, 49172-5 #### [facility] ([id number]) [address], [facility] [address] [place] [address] Hemoglobin (Bld) [Mass/Vol] 15.0 g/dL Normal 11.7-15.5 [facility] Comment on above: Performed By: #### Mariam CLEARY, 07475-5, THYR, CBCA, 24644-5 #### [facility] ([id number]) [address], [address] [place] [address] Lymphocytes (Bld) [#/Vol] 0.9 10*3/uL Low 1.0-3.5 [facility] Comment on above: Performed By: #### C EVIN, 36107-0, THYR, CBCA, 44955-1 #### [facility] ([id number]) [address], [address] [place] [address] Lymphocytes/100 WBC (Bld) 23.6 % Normal [facility] Comment on above: Performed By: #### C EVIN, 71890-1, THYR, CBCA, 40372-8 #### [facility] ([id number]) [address] [address] [place] [address] MCH (RBC) [Entitic mass] 32.2 pg Normal 27-34 [facility] Comment on above: Performed By: #### C EVIN, 44229-8, THYR, CBCA, 86849-9 #### [facility] ([id number]) [address], [address] [place] [address] MCHC (RBC) [Mass/Vol] 35.0 g/dL Normal 32-36 [facility] Comment on above: Performed By: #### C EVIN, 66359-7, THYR, CBCA, 05664-9 #### [facility] ([id number]) [address], [address] [place] [address] MCV (RBC) [Entitic vol] 92 fL Normal 80-100 [facility] Comment on above: Performed By: #### C EVIN, 13542-9, THYR, CBCA, 99453-5 #### [facility] ([id number]) [address], [address] [place] [address] Monocytes (Bld) [#/Vol] 0.3 10*3/uL Normal 0-0.9 [facility] Comment on above: Performed By: #### C EVIN, 24049-6, THYR, CBCA, 19365-4 #### [facility] ([id number]) [address], [address] [place] [address] Monocytes/100 WBC (Bld) 7.0 % Normal [facility] Comment on above: Performed By: #### Mariam CLEARY, 53069-3, THYR, CBCA, 05213-3 #### [facility] ([id number]) [address] [place] [address] Neutrophils/100 WBC (Bld) 67.7 % Normal [facility] Comment on above: Performed By: #### C EVIN, 57009-6, THYR, CBCA, 19326-8 #### [facility] ([id number]) [address], [address] [place] [address] Platelet mean volume (Bld) [Entitic vol] 8.7 fL Normal 7-12 [facility] Comment on above: Performed By: #### C MP, 63579-1, THYR, CBCA, 26933-3 #### [facility] ([id number]) [address] [address] [place] [address] Platelets (Bld) [#/Vol] 186 10*3/uL Normal 150-450 [facility] Comment on above: Performed By: #### C MP, 88624-7, THYR, CBCA, 70123-6 #### [facility] ([id number]) [address] [address] [place] [address] RBC COUNT 4.67 X10E12/L Normal 3.80-5.20 [facility] Comment on above: Performed By: #### [place], [address]63-6, THYR, CBCA, 71733-2 #### [facility] ([id number]) [address] [address] WBC (Bld) [#/Vol] 3.7 10*3/uL Low 4.0-11.0 [facility] Comment on above: Performed By: #### C MP, 07092-2, THYR, CBCA, 82832-4 #### [facility] ([id number]) [address] [address] COMPREHENSIVE METABOLIC PANE Mika 11-30-2023 Albumin [Mass/Vol] 4.4 g/dL Normal 3.2-5.3 [facility] Comment on above: Performed By: #### C MP, 02823-6, THYR, CBCA, 55180-4 #### [facility] ([id number]) [address] [address] [place] [address] ALP [Catalytic activity/Vol] 65 U/L Normal 39-130 [facility] Comment on above: Performed By: #### [place], 46615-5, THYR, CBCA, 22983-3 #### [facility] ([id number]) [address], [address] [place] [address] ALT [Catalytic activity/Vol] 59 U/L High 0-31 [facility] Comment on above: Performed By: #### C MP, 61759-6, THYR, CBCA, 22056-4 #### [facility] ([id number]) [address], [address] [place] [address] Anion gap [Moles/Vol] 6 mmol/L Normal 5-15 [facility] Comment on above: Performed By: #### C MP, 44073-3, THYR, CBCA, 57055-7 #### [facility] ([id number]) [address], [address] [place] [address] AST [Catalytic activity/Vol] 31 U/L Normal 0-41 [facility] Comment on above: Performed By: #### C EVIN, 13530-5, THYR, CBCA, 94612-6 #### [facility] ([id number]) [address], [address] [place] [address] Bilirubin [Mass/Vol] 0.8 mg/dL Normal 0.3-1.2 [facility] Comment on above: Performed By: #### C MP, 05072-9, THYR, CBCA, 54725-3 #### [facility] ([id number]) [address], [address] [place] [address] Calcium [Mass/Vol] 9.1 mg/dL Normal 8.5-10.5 [facility] Comment on above: Performed By: #### [place], 29346-2, THYR, CBCA, 93131-0 #### [facility] ([id number]) [address], [address] [place] [address] Chloride [Moles/Vol] 103 mmol/L Normal 98-109 [facility] Comment on above: Performed By: #### [place], 61834-8, THYR, CBCA, 30193-9 #### [facility] ([id number]) [address], [address] [place] [address] CO2 [Moles/Vol] 28 mmol/L Normal 22-32 [facility] Comment on above: Performed By: #### C EVIN, 06841-3, THYR, CBCA, 53901-0 #### [facility] ([id number]) [address], [address] [place] [address] Creatinine [Mass/Vol] 0.86 mg/dL Normal 0.40-1.00 [facility] Comment on above: Result Comment: METH OD TRACEABLE TO IDMS STANDARD Performed By: #### C EVIN, 38539-5, THYR, CBCA, 98929-0 #### [facility] ([id number]) [address], [facility] [address] [place] [address] GFR/1.73 sq M.predicted among non-blacks MDRD (S/P/Bld) [Vol rate/Area] 89 mL/min/{1.73_m2} Normal >59 [facility] Comment on above: Result Comment: Reported eGFR is based on the CKD-EPI 2020 equation that does not use a race coefficient. Performed By: #### C EVIN, 25638-8, THYR, CBCA, 24186-5 #### [facility] ([id number]) [address], [address] [place] [address] Glucose [Mass/Vol] 97 mg/dL Normal 65-99 [facility] Comment on above: Performed By: #### C MP, 33338-6, THYR, CBCA, 75077-1 #### [facility] ([id number]) [address] [address] [place] [address] Potassium [Moles/Vol] 3.8 mmol/L Normal 3.5-5.0 [facility] Comment on above: Performed By: #### C EVIN, 36545-3, THYR, CBCA, 02552-7 #### [facility] ([id number]) [address], [address] [place] [address] Protein [Mass/Vol] 6.6 g/dL Normal 6.0-8.0 [facility] Comment on above: Performed By: #### C EVIN, 73262-4, THYR, CBCA, 35971-6 #### [facility] ([id number]) [address], [facility] [address] [place] [address] Sodium [Moles/Vol] 137 mmol/L Normal 134-146 [facility] Comment on above: Performed By: #### C EVIN, 69653-4, THYR, CBCA, 49936-9 #### [facility] ([id number]) [address], [facility] [address] [place] [address] Urea nitrogen [Mass/Vol] 9 mg/dL Normal 5-23 [facility] Comment on above: Performed By: #### C EVIN, 78573-2, THYR, CBCA, 38663-0 #### [facility] ([id number]) [address], [facility] [address] [place] [address] Lipid 1996 panelon 4 Cholesterol [Mass/Vol] 236 mg/dL High 150-200 [facility] Comment on above: Performed By: #### Mariam CLEARY, 06287-6, THYR, CBCA, 92765-8 #### [facility] ([id number]) [address], [address] [place] [address] Cholesterol in HDL [Mass/Vol] 48 mg/dL Normal >39 [facility] Comment on above: Result Comment: HDL <40 mg/dL - High Risk HDL > or = 40mg/dL- Desirable HDL >60 mg/dL - Negative Risk Performed By: #### C MP, 18784-5, THYR, CBCA, 44055-9 #### [facility] ([id number]) [address], [address] [place] [address] Cholesterol in LDL [Mass/Vol] 124 mg/dL Normal <130 [facility] Comment on above: Result Comment: LDL <100 mg/dL - Desirable LDL >160 mg/dL - High Risk Performed By: #### C EVIN, 77376-7, THYR, CBCA, 16234-9 #### [facility] ([id number]) [address], [facility] [address] [place] [address] Cholesterol in VLDL [Mass/Vol] 64 mg/dL High 0-30 [facility] Comment on above: Performed By: #### Mariam CLEARY, 61038-0, THYR, CBCA, 33294-5 #### [facility] ([id number]) [address] [address] [place] [address] CHOLESTEROL:HDL 4.9 Normal 1.0-5.0 [facility] Comment on above: Performed By: #### Mariam CLEARY, 76866-4, THYR, CBCA, 20071-7 #### [facility] ([id number]) [address], [facility] [address] [place] [address] Triglyceride [Mass/Vol] 318 mg/dL High 27-150 [facility] Comment on above: Performed By: #### Mariam CLEARY, 05903-8, THYR, CBCA, 08531-0 #### [facility] ([id number]) [address], [facility] [address] [place] [address] THYROID PROFILEon 11-30-2023 Free T4 [Mass/Vol] 0.62 ng/dL Normal 0.61-1.60 [facility] Comment on above: Performed By: #### C EVIN, 68554-7, THYR, CBCA, 19899-2 #### [facility] ([id number]) [address] [facility], [address] [place] [address] TSH 0.97 uIU/mL Normal 0.49-4.67 [facility] Comment on above: Performed By: #### C MP, 54955-9, THYR, CBCA, 05663-0 #### [facility] ([id number]) [address] [place] [address], [address] [place] [address] Vitamin D+Metabolites [Mass/ Vol]on 11-30-2023 VITAMIN D 25 HYD TOT 25.5 ng/mL Low 30-100 [facility] Comment on above: Result Comment: Vitamin D status 25 [place] Vitamin D Deficiency <20 ng/mL Insufficiency 20-29 ng/mL Sufficiency 30-100 ng/mL Toxicity >100 ng/mL NOTE: A pediatric reference range has not been established by the primer and powder canning leader of this kit. The [place] [employer] recommends a Vitamin D level of = or >20ng/mL in infants and children. Performed By: #### C MP, 28819-5, THYR, CBCA, 94032-6 #### [facility] ([id number]) [address] [place] [address], [facility] [address] [place] [address] Covid-19 PCR (CVD[facility])on 09-11 SARS-CoV-2 (COVID-19) RNA MEGAN+probe Ql (Unsp spec) Not detected Normal NOT DETECTED [facility] Comment on above: Result Comment: This test is not yet approved or cleared by the [place] FDA. When there are no FDA-approved or cleared tests available, and other criteria are met, FDA can make tests available under an emergency access mechanism called an Emergency Use Authorization (EUA). The EUA for this test is supported by the Concrete Form Setter And Finisher of Health and Human Service's (HHS's) declaration [...] SARS-CoV-2. Performed By: #### C VDTBH #### [facility] [address] [place] [address] Dr. Adis Warren Covid-19 PCR ([facility])on 09-11 SARS-CoV-2 (COVID-19) RNA MEGAN+probe Ql (Unsp spec) Not detected Normal NOT DETECTED [facility] Comment on above: Result Comment: This test is not yet approved or cleared by the [place] FDA. When there are no FDA-approved or cleared tests available, and other criteria are met, FDA can make tests available under an emergency access mechanism called an Emergency Use Authorization (EUA). The EUA for this test is supported by the Concrete Form Setter And Finisher of Health and Human Service's (HHS's) declaration [...] SARS-CoV-2. Performed By: #### C VDTB #### [facility] [address] [place], [place] [address] Dr. Adis Warren OBSOLETEon 07-04-2021 OBSOLETE Refill (NEUWIL) MARITA MESSINA ([id number]) 1985 F Date Time Provider Department 07/04/21 [...] Encounter Status:Closed by RAYMOND MEDINA on 07/05/21 [facility] OBSOLETEon 05-27-2021 OBSOLETE Refill ([facility]) MARITA MESSINA ([id number]) 1985 F Date Time Provider Department 05/27/21 [...] Encounter Status:Closed by RAYMOND MEDINA on 05/30/21 [facility] OBSOLETEon 04-26-2021 OBSOLETE Refill ([facility]) MARITA MESSINA ([id number]) 1985 F Date Time Provider Department 04/26/21 [...] Encounter Status:Closed by RAYMOND MEDINA on 04/27/21 [facility] Coding Summary.on 05-31-2019 Coding Summary. CODING DATE: 05/31/2019 [facility] STATUS: Home (Routine DC) PAYOR: [...] Andres Date Saved: 05/31/2019 06:25 am Normal [facility] Gynecology Office/Clinic Not freddie 05-20-2019 [...] and next steps Ordered: Colposcopy with biopsy 69726 Pathology Tissue Exam Pathology Tissue Exam Follow-up With When Contact Information She BINGHAM CNP In 1 year [email or web address] Additional Instructions: She BINGHAM CNP Only if needed [email or web address] Additional Instructions: Problem List/Past Medical History Ongoing [...] 2: Father and Grandparent. Hyperlipidemia: Father. Normal [facility] Comment on above: Result Comment: Elec tronically Signed By: She BINGHAM CNP\.br\Date and Time Signed: 05/20/19 14:48 EDT Coding Summary.on 05-06-2019 Coding Summary. CODING DATE: 05/06/2019 FINAL [facility] STATUS: Home (Routine DC) PAYOR: Medicaid EA DESCRIPTION 0392 PAP SMEARS [...] CphT Date Saved: 05/06/2019 09:14 am Normal [facility] PAP [id number] 05-05-2019 Cytology report Cyto stain Doc (Cvx/Vag) Note Abnormal [facility] Comment on above: Result Comment: TEST S RESULT FLAG UNITS REF RANGE LAB Clinician Provided Cytology Information Source.............[facility] Other..............IUD No. of containers..01 ThinPrep Vial DIAGNOSIS: [A] 01 EPITHELIAL CELL ABNORMALITY. ATYPICAL SQUAMOUS CELLS OF UNDETERMINED SIGNIFICANCE (ASC-US). 01 Satisfactory for evaluation. Endocervical and/or squamous metaplastic cells (endocervical component) are present. 01 Maricarmen Stovall, Glass Cutting Machine Operator (ASCP) 01 Jennifer Lopes MD, Pathologist 01 [...] Low,>-Panic High,A-Abnormal,AA-Critical Abnormal Performed at: [address] [facility] [place] [address] Soraya Cabrera MD, Performed By: #### 1 [id number], [id number] #### [facility] [address] [place] [address] HPV 16+18+31+33+35+39+4 5+51+52+56+58+59+68 DNA Probe+sig amp Ql (Cvx) Positive Abnormal Negative [facility] Comment on above: Result Comment: This high-risk HPV test detects thirteen high- risk types (16/18/31/33/35/39/45/51/52/56/58/59/68) without differentiation. Performed at: [facility] [id number] MD Rick Lira Performed at: =[facility] [id number] MD Rick Lira Performed By: #### 1 [id number], [id number] #### [facility] [address] [place] [address] Physician Read PAPon 019 Pathologist review Noe (Unsp spec) [Interp] Note [facility] Comment on above: Result Comment: TEST S RESULT FLAG UNITS REF RANGE LAB Physician Read Pap Note 01 Performed FLAG LEGEND: L-Low Normal,H-High Normal,LL-Alert Low,HH-Alert High <-Panic Low,>-Panic High,A-Abnormal,AA-Critical Abnormal Performed at: 01 [facility] [address] [address] Soraya Cabrera MD, Performed at: [facility] [address] [id number] MD Rick Lira Performed By: #### 1 [id number], [id number] #### [facility] [address] [place] [address] Gynecology Office/Clinic Not freddie 04-29-2019 Gynecology Office/Clinic [...] results Ordered: Office Visit Level 3 Est 92665 PAP [id number] w/HPV HR US Pelvis Non-OB Complete 2. 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 Hyperlipidemia: Father. Normal [facility] Comment on above: Result Comment: Elec tronically Signed By: BINGHAM YOUTH TEACHER, She R\.br\Date and Time Signed: 04/29/19 11:36 EDT PAP [id number] 04-29-2019 Gynecological Body Site CERVIX Normal [facility] Comment on above: Performed By: #### 1 [id number], [id number] #### [facility] [address] [place] [address] Other Patient Information IUD Normal [facility] Comment on above: Performed By: #### 1 [id number], [id number] #### [facility] [address] [place] [address] Vital Signs Date Time Vital Sign Value Performing Clinician Facility 08-04-2024 15:35-0500 Body height 157.5 cm Sherie Maria DPM Work Phone: [facility] 08-04-2024 15:35-0500 Body mass index (BMI) [Ratio] 40.6 kg/m2 Sherie Maria DPM Work Phone: [facility] 08-04-2024 15:35-0500 Body weight 100.7 kg Sherie Maria DPM Work Phone: [facility] 06-16-2024 10:54-0400 Body height 157.5 cm Dorcas Peralta ONLINE PROJECT MANAGER Work Phone: [facility] 06-16-2024 10:54-0400 Body mass index (BMI) [Ratio] 39.36 kg/m2 Dorcas Peralta ONLINE PROJECT MANAGER Work Phone: [facility] 06-16-2024 10:54-0400 Body weight 97.61 kg Dorcas Peralta ONLINE PROJECT MANAGER Work Phone: [facility] 06-16-2024 10:54-0400 Diastolic blood pressure 76 mm[Hg] Dorcas Peralta ONLINE PROJECT MANAGER Work Phone: [facility] 06-16-2024 10:54-0400 Heart rate 98 /min Dorcas Peralta ONLINE PROJECT MANAGER Work Phone: [facility] 06-16-2024 10:54-0400 SaO2% (BldA) [Mass fraction] 97 % Dorcas Peralta ONLINE PROJECT MANAGER Work Phone: [facility] 06-16-2024 10:54-0400 Systolic blood pressure 120 mm[Hg] Dorcas Peralta ONLINE PROJECT MANAGER Work Phone: [facility] 05-23-2024 10:24-0400 Body mass index (BMI) [Ratio] 38.99 kg/m2 Dorcas Peralta ONLINE PROJECT MANAGER Work Phone: [facility] 05-23-2024 10:24-0400 Body weight 96.71 kg Dorcas Peralta ONLINE PROJECT MANAGER Work Phone: [facility] 05-23-2024 10:24-0400 Diastolic blood pressure 72 mm[Hg] Dorcas Peralta ONLINE PROJECT MANAGER Work Phone: [facility] 05-23-2024 10:24-0400 Heart rate 93 /min Dorcas Peralta ONLINE PROJECT MANAGER Work Phone: [facility] 05-23-2024 10:24-0400 SaO2% (BldA) [Mass fraction] 99 % Dorcas Peralta ONLINE PROJECT MANAGER Work Phone: [facility] 05-23-2024 10:24-0400 Systolic blood pressure 122 mm[Hg] Dorcas Peralta ONLINE PROJECT MANAGER Work Phone: [facility] 05-14-2024 11:30-0400 Body height 157.5 cm Dorcas Peralta ONLINE PROJECT MANAGER Work Phone: [facility] 05-14-2024 11:30-0400 Body mass index (BMI) [Ratio] 39.03 kg/m2 Dorcas Peralta ONLINE PROJECT MANAGER Work Phone: [facility] 05-14-2024 11:30-0400 Body weight 96.8 kg Dorcas Peralta ONLINE PROJECT MANAGER Work Phone: [facility] 05-14-2024 11:30-0400 Diastolic blood pressure 68 mm[Hg] Dorcas Peralta ONLINE PROJECT MANAGER Work Phone: [facility] 05-14-2024 11:30-0400 Heart rate 109 /min Dorcas Peralta ONLINE PROJECT MANAGER Work Phone: [facility] 05-14-2024 11:30-0400 SaO2% (BldA) [Mass fraction] 98 % Dorcas Peralta ONLINE PROJECT MANAGER Work Phone: [facility] 05-14-2024 11:30-0400 Systolic blood pressure 110 mm[Hg] Dorcas Peralta ONLINE PROJECT MANAGER Work Phone: [facility] 11-10-2019 14:27-0500 BMI (Body Mass Index) 35.43 kg/m2 [place], [place] 11-10-2019 14:27-0500 Body Temperature 97.59 [degF] [place], [place] 11-10-2019 14:27-0500 Body weight 90.72 kg [place] 11-10-2019 14:27-0500 BP Diastolic 65 mm[Hg] [place] 11-10-2019 14:27-0500 BP Systolic 102 mm[Hg] [place] 11-10-2019 14:27-0500 Height 160 cm [place] 11-10-2019 14:27-0500 Pulse Oximetry 99 % [place] Encounters Encounter Date Encounter Type Care Provider Facility Start: 08-13-2024 ambulatory Dorcas quintana PA-C Facility:[facility] Start: 08-04-2024 End: 08-04-2024 Office outpatient new 30 minutes Sherie Maria DPM Work Phone: [facility] Comment on above: Tinea pedis of both feet (Primary Dx); Chronic dermatitis of feet; Dermatophytosis of nail; Pain around toenail, right foot; Pain around toenail, left foot Start: 08-04-2024 End: 08-04-2024 ambulatory SHERIE MARIA Not Available Start: 08-04-2024 End: 08-04-2024 Bamboo flowsheet Sherie Maria DPM Work Phone: [facility] Start: 08-04-2024 End: 08-04-2024 Bamboo flowsheet Sherie Maria DPM Work Phone: [facility] Start: 07-04-2024 End: 07-04-2024 ambulatory [facility] Start: 06-16-2024 End: 06-16-2024 Bamboo flowsheet Dorcas Peralta ONLINE PROJECT MANAGER Work Phone: [facility] Start: 06-16-2024 End: 06-16-2024 Bamboo flowsheet Dorcas Peralta ONLINE PROJECT MANAGER Work Phone: [facility] Start: 06-16-2024 End: 06-16-2024 Office outpatient visit 25 minutes Dorcas Peralta NP Work Phone: [facility] Comment on above: Morbid (severe) obes ity due to excess calories (CMS/HCC) (Primary Dx); Bipolar disorder in full remission, most recent episode unspecified type (CMS/HCC); Mixed dyslipidemia (CMS/HCC) Start: 06-16-2024 End: 06-16-2024 ambulatory DORCAS PERALTA Not Available Start: 05-26-2024 End: 05-29-2024 Refill Nehal Jenny LUNAN Work Phone: [facility] Comment on above: Gastroesophageal ref lux disease without esophagitis Rash (Primary Dx); Obesity, Class II, BMI 35-39.9 Start: 05-23-2024 End: 05-23-2024 Office outpatient visit 25 minutes Dorcas Peralta NP Work Phone: [facility] Comment on above: Folliculitis (Primar y Dx); Obesity, Class II, BMI 35-39.9; Morbid (severe) obesity due to excess calories (CMS/HCC); Gastro-esophageal reflux disease without esophagitis; Body mass index (BMI) 39.0-39.9, adult; Bipolar disorder, unspecified (CMS/HCC) Start: 05-23-2024 End: 05-23-2024 ambulatory DORCAS PERALTA Not Available Start: 05-22-2024 End: 05-22-2024 Orders Only Dorcas Peralta ONLINE PROJECT MANAGER Work Phone: [facility] Comment on above: Dermatitis (Primary Dx) Start: 05-19-2024 End: 05-19-2024 ambulatory [facility] Start: 05-19-2024 End: 05-19-2024 [facility] Start: 05-14-2024 End: 05-14-2024 Bamboo flowsheet Dorcas Kathryn ONLINE PROJECT MANAGER Work Phone: [facility] Start: 05-14-2024 End: 05-14-2024 Bamboo flowsheet Dorcas Kathryn ONLINE PROJECT MANAGER Work Phone: [facility] Start: 05-14-2024 End: 05-14-2024 Office outpatient new 45 minutes Dorcas Peralta ONLINE PROJECT MANAGER Work Phone: [facility] Comment on above: Obesity, Class II, B CO 35-39.9 (Primary Dx); Encounter to establish care Start: 05-14-2024 End: 05-14-2024 ambulatory DORCAS PERALTA Not Available Start: 05-05-2024 End: 05-05-2024 [facility] Start: 03-24-2024 End: 03-24-2024 ambulatory CAITLYN Griffiths [facility] Start: 03-23-2024 End: 03-24-2024 Emergency department patient visit LUIZA ORDOÑEZ [facility] Start: 03-23-2024 End: 03-23-2024 Emergency department patient visit CAITLYN Griffiths [facility] Start: 03-10-2024 End: 04-10-2024 ambulatory LEONIDAS SALCIDO [facility] Start: 03-08-2024 End: 03-08-2024 Emergency department patient visit CAITLYN Griffiths [facility] Start: 03-03-2024 End: 03-03-2024 ambulatory Caitlyn Sparrow MD Facility:[facility] Start: 02-29-2024 End: 02-29-2024 ambulatory CAITLYN M [facility] Start: 02-18-2024 End: 02-18-2024 ambulatory Caitlyn Sparrow MD Facility:[facility] Start: 02-11-2024 End: 03-10-2024 ambulatory [facility] Start: 01-28-2024 End: 01-28-2024 ambulatory Caitlyn Sparrow MD Facility:[facility] Start: 01-23-2024 End: 02-09-2024 ambulatory [facility] Start: 11-30-2023 End: 11-30-2023 ambulatory [facility] Start: 11-30-2023 Encounter for genera l adult medical examination without abnormal findings [facility] Start: 08-09-2023 Refill Raymond Pierre ph, MD Work Phone: Neurology Comment on above: Refill Request Start: 03-09-2023 Refill Raymond Pierre ph, MD Work Phone: Neurology Comment on above: Refill Request Start: 08-24-[address] MUNIRA DEAL [facility] ty:[facility] Start: 07-11-2022 End: 07-12-[address] MUNIRA DEAL Facility:[facility] Start: 05-22-2022 Get Medical Advice Raymond Medina MD Work Phone: Neurology Comment on above: Med refill Start: 03-08-2022 End: 03-09-[address] CAITLYN SPARROW Facility:[facility] Start: 02-23-2022 End: 02-23-2022 ambulatory Karel Henry Other [facility] Other Start: 02-23-2022 Telephone encounter Karel Henry [facility] Start: 01-09-2022 Refill Raymond Pierre ph, MD Work Phone: Neurology Comment on above: Refill Request Start: 01-04-2022 End: 01-04-2022 ambulatory Karel Elaine Other [facility] Other Start: 01-04-2022 Telephone encounter Karel Elaine [facility] Start: 12-12-2021 End: 12-12-2021 ambulatory Karel Elaine Other [facility] Other Start: 12-12-2021 Telephone encounter Karel Elaine [facility] Start: 11-30-2021 End: 12-01-[address] MUNIRA DEAL Facility:[facility] Start: 11-16-2021 End: 11-16-2021 ambulatory Karel Elaine Other [facility] Other Start: 11-16-2021 Telephone encounter Karel Elaine [facility] Start: 10-11-2021 Encounter for preprocedural laboratory examination DR MUNIRA DEAL [facility] Start: 10-11-2021 End: 10-11-2021 ambulatory [...] 08-03-2021 End: 08-03-2021 ambulatory Karel Elaine Other [facility] Other Start: 08-03-2021 Telephone encounter Karel Elaine [facility] Start: 07-28-2021 End: 07-28-2021 ambulatory Karel Elaine Other [facility] Other Start: 07-28-2021 Telephone encounter [facility] Start: 11-10-2019 End: 11-11-2019 Patient encounter procedure BRADLEY SIMMONS [place] Start: 11-10-2019 End: 11-10-2019 Subsequent hospital visit by physician Bradley Simmons Work Phone: [facility] Comment on above: Arrived Procedures Date Procedure Procedure Detail Performing Clinician Start: 10-03-2021 Adult depression screening assessment Raymond Medina MD Work Phone: Plan of Treatment Date Care Activity Detail Author Start: 2036 Shingles Vaccine (1 of 2) Shingles Vaccine (1 of 2) [place] Start: 06-10-2025 Influenza vaccination Influenza Vacc ine (#1) [facility] Comment on above: Postponed from 05/11 (Patient Refused) Start: 11-08-2024 Medicare Annual Well ness (AWV) Medicare Annual Wellness (AWV) [facility] Start: 10-27-2024 End: 10-27-2024 Patient encounter procedure 10/27/2024 4:15 PM EST Office Visit [facility] [address] [place] [phone] Sherie Maria DPM [address] [place] [address] [facility] Start: 09-15-2024 End: 09-15-2024 Patient encounter procedure 09/15/2024 11:00 AM EST Office Visit [facility] [address] [place] [phone] Dorcas Peralta NP [address] [place] [address] [facility] Start: 08-04-2024 End: 08-04-2024 Patient encounter procedure 08/04/2024 3:30 PM EST Office Visit [facility] [address] [place] [phone] Sherie Maria, DPM [address] [place], [place] [phone] Arrived [facility] Comment on above: Arrived Start: 06-16-2024 End: 06-16-2024 Patient encounter procedure [facility] Comment on above: Arrived Start: 05-14-2024 End: 05-14-2024 Patient encounter procedure 05/14/2024 11:30 AM EDT Office Visit [facility] [address] [place] [phone] Dorcas Peralta NP [address], [place] [phone] Arrived [facility] Comment on above: Arrived Start: 05-11-2024 Influenza vaccination Influenza Vacc ine (#1) [facility] Start: 05-11-2023 Influenza vaccination [facility] Start: 10-03-2022 Adult depression screening assessment DEPRESSION SCREENING [facility] Start: 09-10-2022 DEPRESSION ASSESSMENT DEPRESSION ASS ESSMENT [facility] Start: 05-11-2022 Influenza vaccination [facility] Start: 03-29-2020 End: 03-29-2020 Appointment 03/29/2020 Appointment General Surgery Bradley Simmons MD [address] [place], [place] [id number] [facility] Start: 05-11-2019 [facility]: [facility] HPV TESTING HPV TESTING [facility] Start: 2016 Screening for malign ant neoplasm of cervix [facility] Start: 2007 Cervical cancer screen Cervical canc er screen [facility] Start: 2007 PAP TESTING PAP TESTING [facility] Start: 2007 Screening for malign ant neoplasm of cervix [facility] Start: 2005 Urine microalbumin profile DTAP,TDAP,TD (1 - Tdap) [facility] Start: 2004 HEPATITIS C SCREENING HEPATITIS C [place] ALANA [facility] Start: 2004 Hepatitis C screening Hepatitis C Sc alana [facility] Start: 2004 [facility] Start: 2004 [facility] Start: 2001 HIV screen HIV screen [place], [place] Start: 12-25-1997 Urine microalbumin profile DTaP,Tdap,Td Vaccine (6 - Tdap) [facility] Start: 1997 DTaP/Tdap/Td vaccine (1 - Tdap) DTaP/Tdap/Td vaccine (1 - Tdap) [place], [place] Start: 1991 COVID-19 VACCINE (1) COVID-19 VACCIN E (1) [facility] Start: 1987 Varicella vaccine (1 of 2 - 2-dose childhood series) Varicella vaccine (1 of 2 - 2-dose childhood series) [place] Start: 01-14-1987 COVID-19 VACCINE (#1) COVID-19 VACCI NE (#1) [facility] Start: 1986 HEPATITIS B (1 of 3 - 3-dose series) HEPATITIS B (1 of 3 - 3-dose series) [facility] Start: 1986 Medicare Annual Well ness (AWV) Medicare Annual Wellness (AWV) [facility] Immunizations Immunization Date Immunization Notes Care Provider Hansel lundy 05-15-2023 Influenza, injectabl e, Madin [place] Canine Kidney, quadrivalent with preservative Dorcas Kamkiafer ONLINE PROJECT MANAGER Work Phone: [facility] 05-15-2023 influenza virus vacc ine, unspecified formulation Dorcas Peralta ONLINE PROJECT MANAGER Work Phone: [facility] 07-13-2022 Influenza, injectabl e, Madin [place] Canine Kidney, preservative free, quadrivalent Dorcas Kampfer ONLINE PROJECT MANAGER Work Phone: [facility] 09-13-2021 influenza, injectabl e, quadrivalent, preservative free Dorcas Kampdanyell ONLINE PROJECT MANAGER Work Phone: [facility] 08-22-2019 influenza, injectabl e, quadrivalent, contains preservative Dorcas Kamgwen ONLINE PROJECT MANAGER Work Phone: [facility] 08-22-2019 influenza virus vacc ine, unspecified formulation Raymond Medina MD Work Phone: [facility] 05-25-1998 hepatitis B vaccine, pediatric or pediatric/adolescent dosage Dorcas Kampfer ONLINE PROJECT MANAGER Work Phone: [facility] 12-24-1997 hepatitis B vaccine, pediatric or pediatric/adolescent dosage Dorcas Kampfer ONLINE PROJECT MANAGER Work Phone: [facility] 12-24-1997 TD(adult) unspecifie d formulation Dorcas Kampfer ONLINE PROJECT MANAGER Work Phone: [facility] 11-19-1997 hepatitis B vaccine, pediatric or pediatric/adolescent dosage Dorcas Kampfer ONLINE PROJECT MANAGER Work Phone: [facility] 11-19-1997 measles, mumps and rubella virus vaccine Dorcas Kampfer ONLINE PROJECT MANAGER Work Phone: [facility] 10-26-1987 diphtheria, tetanus toxoids and pertussis vaccine Dorcas Kampfer ONLINE PROJECT MANAGER Work Phone: [facility] 10-26-1987 measles, mumps and rubella virus vaccine Dorcas Kampfer ONLINE PROJECT MANAGER Work Phone: [facility] 10-26-1987 trivalent poliovirus vaccine, live, oral Dorcas Kampfer ONLINE PROJECT MANAGER Work Phone: [facility] 02-17-1987 diphtheria, tetanus toxoids and pertussis vaccine Dorcas Kampfer ONLINE PROJECT MANAGER Work Phone: [facility] 02-17-1987 trivalent poliovirus vaccine, live, oral Dorcas Kampfer ONLINE PROJECT MANAGER Work Phone: [facility] 1986 diphtheria, tetanus toxoids and pertussis vaccine Dorcas Kampfer ONLINE PROJECT MANAGER Work Phone: [facility] 1986 trivalent poliovirus vaccine, live, oral Dorcas Kampfer ONLINE PROJECT MANAGER Work Phone: [facility] 1986 diphtheria, tetanus toxoids and pertussis vaccine Dorcas Kampfer ONLINE PROJECT MANAGER Work Phone: [facility] 1986 trivalent poliovirus vaccine, live, oral Dorcas Kampfer ONLINE PROJECT MANAGER Work Phone: [facility] Payers Date Payer Category Payer Medicaid [place] [id number] 2019-Present [phone] [address] [place] [address] Medicaid [id number] 2019 Medicaid [id number] [id number] 2019 Medicare MEDICARE MEDICAR E A AND B [id number] 2019-Present [phone] [place] [address] Medicare [id number] 2019 Medicare [id number] [id number] .[id number] 2014 Medicaid MEDICAID [place] [facility] DEPT OF JOB xxxxxxxxxxxx 2014-Present [phone] [address] [place] [address] xxxxxxxxxxxx [id number] .[id number] 2014 Medicare MEDICARE MEDICAR E PART A AND B xxxxxxxxxxx 2014-Present [phone] [place] [address] xxxxxxxxxxx [id number] .[id number] 1986 Unknown [id number] 2.16.840.1.395173.3.579.2.177 1986 Unknown [id number] 2.16.840.1.674551.3.579.2.593 1986 Unknown [id number] 2.16.840.1.005131.3.579.2.593 1986 Unknown [id number] 2.16.840.1.302774.3.579.2.593 1986 Unknown [id number] 2.16.840.1.558424.3.579.2.593 1986 Unknown [id number] 2.16.840.1.860473.3.579.2.593 1986 Unknown [id number] 2.16.840.1.552435.3.579.2.593 1986 Unknown [id number] 2.16.840.1.628911.3.579.2.593 1986 Unknown [id number] 2.16.840.1.017793.3.579.2.593 1986 Unknown [id number] 2.16.840.1.955613.3.579.2.593 1986 Unknown [id number] 2.16.840.1.698115.3.579.2.128 6 1986 Unknown [id number] 2.16.840.1.029712.3.579.2.128 6 1986 Unknown [id number] 2.16.840.1.415607.3.579.2.128 6 1986 Unknown [id number] 2.16.840.1.875572.3.579.2.128 6 1986 Unknown [id number] 2.16.840.1.451509.3.579.2.128 6 1986 Unknown [id number] 2.16.840.1.833407.3.579.2.128 6 1986 Unknown [id number] 2.16.840.1.708629.3.579.2.128 6 1986 Unknown [id number] 2.16.840.1.433196.3.579.2.128 6 1986 Unknown [id number] 2.16.840.1.220515.3.579.2.128 6 1986 Unknown [id number] 2.16.840.1.730282.3.579.2.128 6 1986 Unknown [id number] 2.16.840.1.543467.3.579.2.128 6 1986 Unknown [id number] 2.16.840.1.363567.3.579.2.128 6 1986 Unknown [id number] 2.16.840.1.920806.3.579.2.128 6 1986 Unknown [id number] 2.16.840.1.468411.3.579.2.128 6 1986 Unknown [id number] 2.16.840.1.808519.3.579.2.128 6 1986 Unknown [id number] 2.16.840.1.658406.3.579.2.128 6 1986 Unknown [id number] 2.16.840.1.660701.3.579.2.128 6 1986 Unknown [id number] 2.16.840.1.376033.3.579.2.128 6 1986 Unknown [id number] 2.16.840.1.917832.3.579.2.125 9 1986 Unknown [id number] 2.16.840.1.903593.3.579.2.125 9 1986 Unknown [id number] 2.16.840.1.859381.3.579.2.125 9 1986 Unknown [id number] 2.16.840.1.556367.3.579.2.125 9 1986 Unknown [id number] 2.16.840.1.601457.3.579.2.196 1986 Unknown [id number] 2.16.840.1.552029.3.579.2.196 1986 Unknown [id number] 2.16.840.1.011346.3.579.2.196 1986 Unknown [id number] 2.16.840.1.929361.3.579.2.196 1959 Medicaid [id number] 1958 Medicare [id number] Social History Date Type Detail Facility Start: 11-25-2018 End: 11-10-2019 Tobacco smoking status NHIS Never smoker [facility] Start: 11-10-2019 End: 05-23-2024 Alcohol intake Current drinker of alcohol (finding) [place], [place] Start: 11-10-2019 Alcohol Comment [place], [place] Start: 1986 Sex Assigned At Not on file [place], [place] Start: 11-25-2018 End: 05-14-2024 Tobacco use and exposure Smokeless tobacco non-user [facility] Start: 11-25-2018 History SDOH Alcohol Comment social [facility] Start: 04-21-2019 End: 05-23-2024 Sex Assigned At [facility] Start: 04-21-2019 End: 05-23-2024 History of Social function [facility] Adult Depression Screening Assessment 4 [facility] Start: 05-14-2024 Tobacco smoking stat [facility] Smokes tobacco daily [facility] Start: 05-14-2024 Tobacco Comment Vapes daily [facility] Start: 05-14-2024 Alcohol Comment caffeine intak e: 12 oz coffee daily [facility] Tobacco smoking stat [facility] Tobacco smoking consumption unknown [facility] Clinical Notes 09-15-2021 to 08-11-2024 Sherie Maria DPM - 08/04/2024 3:30 PM ESTPatient Leticia Peralta NP - 06/16/2024 11:00 AM Lisa Peralta NP - 05/23/2024 10:30 AM Lisa Peralta NP - 05/22/2024 9:40 AM EDT Note Date & Type Note Facility 08-11-2024 Note Patient Education Ma terials Name: Marita Messina Current Date: 08/11/2024 16:18:15 [place] : 1985 [facility]: [id number] The following sheet(s) are the Patient Education [...] breast self-exam (BSE). These experts include the [place] [employer] and the [place] [employer] Gynec[employer]. Some experts [...] This means they are not cancer. ? [id number] [employer]. All rights reserved. This information is not [...] prevent urine, gas, or stool leakage. ? [phone] [employer]. All rights reserved. This information is not intended as a substitute fo (more content not included)... [facility] 08-04-2024 History of Present illness Narrative Subjective Patient ID: Marita Messina is a 39 y.o. female who presents for Fungus (Pt is here today for fungal nails, first noticed about 1 yr ago. Also athlete's foot BL. She has tried OTC topical fungal scottish, no change noted. /SS:8 ). HPI Initial [...] and not practical. Patient typically has toenail scottish on a constant basis. Also complains of [...] (six) hours if needed, Disp: , Rfl: [place]-3 Fatty Acids (FISH OIL OMEGA-3 PO), Take [...] most recent hepatic enzymes elevated (May 2024). Morrison agreement to proceed with topical care measures: [...] Sherie Maria DPM documented in this encounter [facility] 08-04-2024 Instructions Sherie Maria DPM - 08/04/2024 3:30 PM EST As noted documented in this encounter [facility] 06-16-2024 History of Present illness Narrative Images [...] 1 tablet, Oral, Every 6 hours PRN [place]-3 Fatty Acids (FISH OIL OMEGA-3 PO) 2 [...] PCAB accredited and rated highly by the [employer]. Prescription sent to pharmacy Bipolar disorder in full remission, most recent episode unspecified type (CMS/HCC) -Followed by psych Mixed dyslipidemia (CMS/HCC) -Followed by cardiology documented in this encounter [facility] 05-23-2024 History of Present illness Narrative Images [...] disorder, unspecified (CMS/HCC) documented in this encounter [facility] 05-22-2024 History of Present illness Narrative kade documented in this encounter [facility] 05-14-2024 History of Present illness Narrative Marita Messina is a 38 y.o. female presents with chief complaint of Establish Care and Weight Loss HPI: HPI Presents to the office to establish care. She has gained a lot of weight over the past year. Has 2 bulging disc, struggling with pain, not able to exercise as much as she would like. She does go to the rec. She does not count calories. Focuses on portion control. She does drink a lot of water. She has tried adipex previously, didn't help. SUBJECTIVE: MEDICATIONS: Current Outpatient Medications Medication Instructions [...] Negative. Neurological: Negative. OBJECTIVE: Visit Vitals BP 110/68 (BP Location: Right arm, Patient Position: Sitting, BP Cuff Size: Large adult) Pulse 109 Ht 5' 2 Wt 213 lb 6.4 oz SpO2 98% BMI 39.03 kg/m Smoking Status Every Day BSA 2.06 [...] Diagnoses and all orders for this visit: Obesity, Class II, BMI 35-39.9 - Semaglutide-Weight Management (Wegovy) 0.5 MG/0.5ML solution auto-injector; Inject 0.5 mg under the skin 1 (one) time per week -Trial wegovy. Samples provided today in office. Encounter to establish care -Encounter today as a new patient today. General health maintenance reviewed visit. Oriented to the practice. Pt made aware of practice hours and how to reach a provider after hours by calling the office phone. Advised to call with any questions or concerns. Pt also made aware that we call with results of any testing, - or + results and to call if he has not heard from us. Also advised that if medication is sent to pharmacy allow up to 3 days for prescription to be refilled. documented in this encounter [facility] 08-09-2023 Miscellaneous Notes Please see pended medication. Pharmacy linked. Last ordered 03/09/2023. Ashtyn Perez MA documented in this encounter [facility] 03-09-2023 Miscellaneous Notes Please see pended medication. Pharmacy linked. Last ordered 10/25/2022. Ashtyn Perez MA documented in this encounter [facility] 07-11-2022 Note CONSULTATION PROCEDURE DATE: 07/11/2022 PREOPERATIVE [...] be followed up in the office. [facility] 07-11-2022 Note CONSULTATION CONSULTATION DATE: 07/11/2022 CHIEF COMPLAINT: Trapezius and upper back pain. HISTORY OF PRESENT ILLNESS: This is a 36-year-old female who is known to the [facility]. The patient, in October of this year, had a rhizotomy radiofrequency ablation along her cervical spine. This has afforded the patient significant improvement. 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 CC: Caitlyn Sparrow M.D. [facility] 05-23-2022 Miscellaneous Notes Please see pended medication. Pharmacy linked. Last ordered 10/20/2021. Ashtyn Perez Ma documented in this encounter [facility] 03-08-2022 Note CONSULTATION CONSULTATION DATE: 03/08/2022 HISTORY [...] Patient does agree with plan of care. [facility] Signed and Approved by: LUDA MANUEL . 03/09/2022 13:38:00 [facility] 01-09-2022 Miscellaneous Notes Please see pended medication. Pharmacy linked. Last ordered 07/05/2021. Ashtyn Perez Ma documented in this encounter [facility] 11-30-2021 Note CONSULTATION PAIN MANAGEMENT CONSULTATION HISTORY [...] time, and patient agrees to this plan. [facility] Signed and Approved by: LUDA MANUEL . 12/01/2021 12:26:00 [facility] 09-15-2021 Note The [place], [place] NAME: MARITA MESSINA DATE OF : MEDICAL REC#: [id number] CUSTOM BOOKBINDER: [id number] LILIANA DAWKINS ADMIT DATE: 09/15/2021 12:21:00 PSYCHOTHERAPIST COUNSELOR DATE: 09/16/2021 11:00 DICTATING PHYSICIAN: LUDA MANUEL [...] Luda Manuel CNP on 09/25/2021 11:23 PM [facility] Signed and Approved by: LUDA MANUEL . 09/25/2021 23:23:00 [facility] Evaluation note Diagnosis Excessive physiologic tremor Essential and other specified forms of tremor documented in this encounter [facility] noteNo [email or web address] Other Evaluation note* Diagnosis Daytime sleepiness Narcolepsy without cataplexy [facility] Diagnosis Daytime sleepiness Narcolepsy without cataplexy [facility] Diagnosis Daytime sleepiness Narcolepsy without cataplexy documented in this encounter [facility] note* Diagnosis Morbid (severe) obesity due to excess calories (CMS/HCC)- Primary Bipolar disorder in full remission, most recent episode unspecified type (CMS/HCC) Mixed dyslipidemia (CMS/HCC) [facility] Diagnosis Tinea pedis of both feet- Primary Chronic dermatitis of feet Contact dermatitis and other eczema, due to unspecified cause Dermatophytosis of nail Pain around toenail, right foot Pain around toenail, left foot [facility]* Diagnosis Dermatitis- Primary Contact dermatitis and other eczema, due to unspecified cause [facility] Diagnosis Folliculitis- Primary Other specified disease of hair and hair follicles Obesity, Class II, BMI 35-39.9 Morbid (severe) obesity due to excess calories (CMS/HCC) Gastro-esophageal reflux disease without esophagitis Body mass index (BMI) 39.0-39.9, adult Bipolar disorder, unspecified ([facility]) Bipolar disorder, unspecified [facility] Diagnosis Gastroesophageal reflux disease without esophagitis Esophageal reflux [facility]* Diagnosis Obesity, Class II, BMI 35-39.9- Primary Encounter to establish care [facility] Diagnosis Rash- Primary Rash and other nonspecific skin eruption Obesity, Class II, BMI 35-39.9 documented in this encounter [facility] Summary Purpose Family History No Family History Records FoundNo Family History Records FoundNo Family History Records FoundNo Family History Records FoundNo Family History Records FoundNo Family History Records FoundNo Family History Records Found Advance Directives Documents on File Type Date Recorded 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 Advance Directives and Living Will 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 History of Present Illness * Bradley Simmons MD - 11/10/2019 2:00 PM EST [facility] PATIENT NAME: Marita Messina MRN NUMBER: [id number] DATE OF : 1985 PHONE NUMBER: [phone] PRIMARY CARE PHYSICIAN: No primary care provider [...] other week Pulmonary embolism (HCC) 2014 [facility] Past Surgical History: Past Surgical History: Procedure Laterality Date HERNIA REPAIR a year had repair above belly button at [facility] HERNIA REPAIR umbilical and above belly buton also at [facility] about 2 years ago HYSTERECTOMY TUMOR REMOVAL Left 2012 left thumb at [facility] Family History: Family History Problem Relation Age [...] CT scan reports and images from the [facility] R&L system E from May 2019 and March [...] section and content) DATE CREATED AUTHOR 05/31/2019 [facility] DATE CREATED AUTHOR AUTHOR'S ORGANIZ ATION 11/11/2019 [facility] DATE CREATED AUTHOR AUTHOR'S ORGANIZ ATION 12/01/2021 [facility] DATE CREATED AUTHOR AUTHOR'S ORGANIZ ATION 09/02/2022 [facility] DATE CREATED AUTHOR AUTHOR'S ORGANIZ ATION 07/05/2024 [place] DATE CREATED AUTHOR AUTHOR'S ORGANIZ ATION 08/07/2024 [facility] DATE CREATED AUTHOR AUTHOR'S ORGANIZ ATION 08/13/2024 [facility] Source Comments (unrecognize d section and content) In the event this informatio n is protected by the Federal Confidentiality of Alcohol and Drug Abuse Patient Records regulations: The Federal rules restrict any use of the information to criminally investigate or prosecute any alcohol or drug abuse patient.[facility] the event this information is protected by the Federal Confidentiality of Alcohol and Drug Abuse Patient Records regulations: The Federal rules restrict any use of the information to criminally investigate or prosecute any alcohol or drug abuse patient.[facility] the event this information is protected by the Federal Confidentiality of Alcohol and Drug Abuse Patient Records regulations: The Federal rules restrict any use of the information to criminally investigate or prosecute any alcohol or drug abuse patient.[facility] the event this information is protected by the Federal Confidentiality of Alcohol and Drug Abuse Patient Records regulations: The Federal rules restrict any use of the information to criminally investigate or prosecute any alcohol or drug abuse patient.[facility] Reason for Visit (unrecogniz ed section and content) Reason Onset Date Comments Refill Request 01/09/2022 Reason Onset Date Comments Refill Request 03/09/2023 Reason Onset Date Comments Refill Request 08/09/2023 Reason Comments Follow-up Reason Comments Fungus Pt is here today for fungal nails, first noticed about 1 yr ago. Also athlete's foot BL. She has tried OTC topical fungal scottish, no change noted. SS:8 Reason Comments Rash Reason Onset Date Comments Med Refill 05/26/2024 Reason Comments Establish Care Weight Loss Care Teams (unrecognized sec tion and content) Nonfarm Animal Caretaker Relationship Specialty Start Date End Date Caitlyn Sparrow [address] [place], [place] [id number] PCP - General Internal Medicine 11/25/18 Nonfarm Animal Caretaker Relationship Specialty Start Date End Date Caitlyn Sparrow [address] [place] [address] PCP - General Internal Medicine 11/25/18 Nonfarm Animal Caretaker Relationship Specialty Start Date End Date Caitlyn Sparrow [address] [place] [address] PCP - General Internal Medicine 11/25/18 Nonfarm Animal Caretaker Relationship Specialty Start Date End Date Caitlyn Sparrow [address] [place] [address] PCP - General Internal Medicine 11/25/18 Nonfarm Animal Caretaker Relationship Specialty Start Date End Date Jo-Ann Carlson MD [address] [place] [address] PCP - General Family Medicine 05/09/24 Nonfarm Animal Caretaker Relationship Specialty Start Date End Date Jo-Ann Carlson MD [address] [place] [address] PCP - General Family Medicine 05/09/24 Nonfarm Animal Caretaker Relationship Specialty Start Date End Date Jo-Ann Carlson MD [address] [place] [address] PCP - General Family Medicine 05/09/24 Nonfarm Animal Caretaker Relationship Specialty Start Date End Date Jo-Ann Carlson MD [address] [place] [address] PCP - General Family Medicine 05/09/24 Nonfarm Animal Caretaker Relationship Specialty Start Date End Date Jo-Ann Carlson MD [address] [place] [address] PCP - General Family Medicine 05/09/24 Nonfarm Animal Caretaker Relationship Specialty Start Date End Date Jo-Ann Carlson MD [address] [place] [address] PCP - General Family Medicine 05/09/24 Nonfarm Animal Caretaker Relationship Specialty Start Date End Date Jo-Ann Carlson MD [address] [place] [address] PCP - General Family Medicine 05/09/24 Nonfarm Animal Caretaker Relationship Specialty Start Date End Date Jo-Ann Carlson MD [address] [place] [address] PCP - General Family Medicine 05/09/24 FOR [...] BE BASED ON THE PRIMARY CLINICAL RECORDS. [employer] [facility]. provides no warranty or guarantee of the accuracy or completeness of information in this document.
[2024-09-01 07:57] VITALS: BP 130/85; PULSE 90; TEMP 36.2; O2SAT 97
[2024-09-01 08:47] VITALS: BP 128/72; BP 141/74; PULSE 80; PULSE 81; O2SAT 99
[2024-09-01] MEDS: 0.9 % SODIUM CHLORIDE 10 ML SYRINGE - SALINE FLUSH INJ (08:50)
[2024-09-01] MEDS: METHYLPREDNISOLONE ACETATE 80 MG/ML VIAL INJ (08:50)
[2024-09-01] MEDS: IOHEXOL 240 MG/ML - 10 ML VIAL INJ (08:51)
[2024-09-01] MEDS: BUPIVACAINE HCL 0.25% PF 25 MG/10 ML VIAL INJ (08:51)
[2024-09-01] MEDS: LIDOCAINE HCL 2% 400 MG/20 ML MDV 5 ML INJ (08:52)
--- NOTE | 2024-09-01 08:54 | W.PM.PROCNOT ---
Date of procedure: 09/01/24 Pre-op diagnosis: Pain due to lumbar stenosis with neurogenic claudication Post-op diagnosis: same as pre-op Procedure: Procedure: Bilateral L4-5 transforaminal epidural steroid injection Medications: Bupivacaine 0.25% 2cc, lidocaine 2% 1cc, kenalog 80mg The patient was seen and examined in the preoperative holding area.? Informed consent was obtained and placed on the chart.? Patient was brought to the medical procedure unit and placed in the prone position where a timeout was completed verifying the correct patient, procedure site, position, and planned special equipment using sterile aseptic technique.? Under direct fluoroscopic visualization a 25-gauge Quincke tipped spinal needle was advanced at level left L4-5 to the designated neural foramen where contrast dye was injected to show adequate spread.? There was no evidence of vascular or adverse uptake.? Epidural spread was appreciated.? The above-mentioned injectate was then placed in a 1.5 mL aliquot preceded by negative aspiration.? The needle was removed. The same procedure, at the same level, was completed on the opposite side. ? Patient was taken to the postprocedural recovery area and monitored for an appropriate length of time before found suitable for discharge in the accompaniment of a responsible adult. Anesthesia: Local Surgeon: Sana Radford Pathology: none sent Condition: stable Disposition: no change
== END 2024-09-01 08:57 | disposition home or self-care (01) ==
LOC: SURGOUT 07:36
PROVIDERS: PCP Internal Medicine; Visit Provider Anesthesiology
DX: M48.062 Spinal stenosis, lumbar region with neurogenic claudication (principal)
CPT/HCPCS: 64483; J0665; J1010; Q9966

== ENCOUNTER 2024-09-24 08:52 | Outpatient (OUT) | payer MEDICARE, MEDICAID, SELFPAY ==
--- NOTE | 2024-09-24 09:11 | P.CN_ITS ---
Consult Note: HPI Data of Consult Patient: known to practice within the last 3 years Requesting Physician: Michelle Randhawa NP Primary Care Provider: CAITLYN SPARROW Consult Narrative Reason for consult: f/u Narrative: Marita Messina a pleasant 39 year old female presents for evaluation of chronic neck and back pain. Patient has tried and failed OTC medications, home based exercise program and cervical traction greater than 6 weeks. Pt recently underwent cervical MRI which is consistent for cervical spondylosis and DDD, previously found benefit to right and left C3-4 C5-6 facet RFAs. Recent bilateral L4-5 TFESI providing >80% improvement in pain and functional ability per pt. utilizing gabapentin and flexeril without side effects. Pain today 4/10 in neck increasing to 8/10 with activity and by end of day. cc:: CC: Michelle Randhawa NP Review of Systems ROS Status of ROS 10 or more systems reviewed and unremark able except as noted in history and below Musculoskeletal Reports: neck pain; Denies: back pain or extremity pain PFSH PFSH Medical History Anxiety ?F41.9 - Anxiety disorder, unspecified (ICD-10) Hiatal hernia ?K44.9 - Diaphragmatic hernia without obstruction or gangrene (ICD-10) Acid reflux ?K21.9 - Gastro-esophageal reflux disease without esophagitis (ICD-10) Pulmonary embolism ?I26.99 - Other pulmonary embolism without acute cor pulmonale (ICD-10) Asthma ?J45.909 - Unspecified asthma, uncomplicated (ICD-10) Surgical History History of surgical removal of Bartholin’s gland cyst ?Z98.890 - Other specified postprocedural states (ICD-10) ?Z87.42 - Personal history of other diseases of the female genital tract (ICD-10) History of eye surgery ?Z98.890 - Other specified postprocedural states (ICD-10) [place] teeth extracted ?K08.409 - Partial loss of teeth, unspecified cause, unspecified class (ICD- 10) History of hernia repair ?Z98.890 - Other specified postprocedural states (ICD-10) ?Z87.19 - Personal history of other diseases of the digestive system (ICD-10) History of hysterectomy ?Z90.710 - Acquired absence of both cervix and uterus (ICD-10) Meds Home Medications and Allergies Home Medications ?Medication ?Instructions ?Recorded ?Confirmed ?Type albuterol sulfate 90 mcg/actuation 2 puff inhalation Q6H PRN 06/22/23 09/01/24 History aerosol inhaler shortness of breath or wheezing buspirone 15 mg tablet 15 mg PO BID 06/22/23 09/01/24 History cariprazine 3 mg capsule (Vraylar) 6 mg PO DAILY 06/22/23 09/01/24 History erenumab-aooe 70 mg/mL 70 mg subcut .monthly 06/22/23 09/01/24 History subcutaneous auto-injector (Aimovig Autoinjector) fluoxetine 40 mg capsule (Prozac) 40 mg PO DAILY 06/22/23 09/01/24 History omeprazole 20 mg capsule,delayed 40 mg PO BID 06/22/23 09/01/24 History release propranolol 20 mg tablet 20 mg PO Q12H 06/22/23 09/01/24 History rizatriptan 5 mg tablet 5 mg PO Q2H PRN migraine headache 06/22/23 09/01/24 History cyclobenzaprine 10 mg tablet 10 mg PO BID 02/07/24 09/01/24 History cyclobenzaprine 10 mg tablet 15 mg (1.5 x 10 mg) PO TID PRN 05/08/24 09/01/24 Rx muscle spasm #135 tabs gabapentin 300 mg capsule 600 mg PO BID 06/18/24 09/01/24 History gabapentin 300 mg capsule See Rx Instructions .Route 08/05/24 Rx .COMPLEX #120 caps cyclobenzaprine 10 mg tablet See Rx Instructions .Route 08/20/24 Rx .COMPLEX #135 tabs evolocumab 140 mg/mL subcutaneous mg subcut 09/01/24 History syringe (Repatha Syringe) Allergies Allergy/AdvReac Type Severity Reaction Status Date / Time hydrocodone (From Vicodin) Allergy Hives Verified 09/01/24 07:55 Exam Narrative Exam Narrative: diffuse myofascial pain and tenderness Constitutional Documenting provider has reviewed patient's vital signs: yes Common normals: no apparent distress, oriented x3, healthy appearing, alert and well nourished General appearance: cooperative [facility] Common normals: normocephalic, hearing grossly normal bilaterally and moist oral mucous membranes Head and scalp: normocephalic Eye Common normals: PERRL Pupil: PERRL Neck & C-Spine Common normals: full ROM General: normal visual inspection Cervical spine: cervical ROM normal, pain with cervical ROM and cervical spine tenderness; no paracervical muscle tenderness and no trapezius muscle tenderness Other: pain with flexion extension and rotation negative spurlings positive facet loading pain over C2-5 facets Chest Common normals: inspection of chest normal Respiratory Common normals: normal respiratory effort, no retractions and no use of accessory muscles Back & Pelvis Lumbar spine/lower back: normal to inspection, lumbar ROM normal and straight leg raise negative bilaterally; no pain with ROM Other: mild myofascial pain/stiffness and spasming Extremity Common normals: normal to inspection and full ROM Neuro Common normals: oriented x3, CN's II-XII intact bilaterally, moves all extremities, no focal motor deficits, no sensory deficits noted and deep tendon reflexes 2+ bilaterally Sensorium/orientation: alert Motor exam: strength 5/5 throughout and no movement abnormalities noted Psych Common normals: mental status grossly normal, thought process normal, cooperative, affect normal, speech normal and activity/motor behavior normal Speech: normal speech Thought process: normal thought process Results Additional Findings Additional findings: If on a controlled substance or opioids, I have checked an [place] report on this patient and there are no aberrancies noted in the prescribing history.??If on a controlled substance or opioid a drug screen was completed and reviewed within the last year, and if there has not been a drug screen completed we ordered one today to monitor higher risk, state monitored pain medication use. As part of providing excellent, safe, comprehensive care, the following was completed at our patient's visit: 1. A medication reconciliation and review to ensure accurate knowledge of current/active medications, including asking our patients to inform us about any [id number] medications or herbal remedies/nutritional supplements/alternative remedies. 2. A review to specifically ensure our patients have had annual screening for screening for depression, screening for tobacco use, and screening for unhealthy alcohol use. For concerning screenings had a discussion with the patient, provided patient education, and recommended follow-up with primary care provider when appropriate. If patient noted with a risk of falling, they received education on strength, gait, and balance training to prevent future risk of falling. Assessment and Plan Assessment and Plan (1) Cervical spondylosis: Assessment and Plan: The patient has had over 3 months of moderate to severe neck pain with functional impairment and inadequate response to conservative care including NSAIDS (unless there are contraindication such as concurrent blood thinners), multiple oral or topical pain medications, and home exercise program/physical therapy.? Patient has completed >6 weeks of guided home exercise program and/or formal physical therapy program without relief of their symptoms.? The Oswestry Disability Index was completed, and the patient scored a 20%.? We discussed the risks and benefits of the procedure with the patient, and we are NOT planning on using sedation as outlined in the guidelines from Medicare unless there is a documented reason that sedation would be strongly recommended.?? ?The procedure will be completed with fluoroscopic guidance.? (2) Degenerative disc disease, cervical: (3) Lumbar stenosis with neurogenic claudication: Assessment and Plan: >80% improvement ongoing (4) Lumbar radiculopathy: (5) Chronic pain syndrome: (6) Lumbar spondylosis: Assessment and Plan: >80% improvement ongoing (7) Myofascial pain syndrome: Plan bilateral C3-4 C5-6 MBB x2 under fluoroscopy working towards RFA continue current medications, finding benefit continue TENS and HEP as tolerated planning to start acute care nurse, could not afford massage therapy f/u after each injection
--- OUTSIDE RECORDS SUMMARY | 2024-09-24 09:15 | XMS_ITS | CCD ---
Author Organization [facility] Care Team Providers Care Cabin Supervisor Name Role Phone SHWETA SIMMONSNATHAN Zuhair Referring Unavailable Unavailable Primary Care Provider Unavailjulianne [...] Care Unavail able LUDA RODRIGUEZ Consulting Unavailable DR MUNIRA DEAL Attending Unavailable KYARA, DR CAITLYN Griffiths Primary Care Unavail able LUDA RODRIGUEZ Consulting Unavailable TOYIN, DR MUNIRA Avalos Admitting Unavailable Kyara, [facility] Robyn CLEMONS, Jo-Ann [facility] Provider Kyara CLEMONS, Caitlyn [facility] Ness vajax Thomas PA-C, Dorcas Stewart Attending Christian Thomas PA-C, Dorcas Stewart Attending Christian Sparrow MD, [facility] Ness kolbyilable Kyara CLEMONS, [facility] N[facility] [place] Malina CLEMONS, Sana Doyle Attending Unavailable Malina CLEMONS, Sana Doyle Attending Unavailable Kyara CLEMONS, [facility] [place] Kyara CLEMONS, [facility] [place] Malina CLEMONS, Sana Doyle Attending Unavailable Kyara CLEMONS, [facility] [place] Malina CLEMONS, Sana Doyle Attending Unavailable KAMPFER, DORCAS Attending Unavailable KAMPFER, DORCAS Attending Unavailable KAMPFER, DORCAS Attending Unavailable RUSSHERIE WOLFF Attending Unavailable KAMPFER, DORCAS Attending Unavailable KYARA, CAITLYN Griffiths Referring Unavailabl [...] Unavailabl e KYARA, CAITLYN Griffiths Primary Care UnavailDAVEY Ngo Attending Unavailable LEONIDAS SALCIDO Referring Unavailable KYARA, CAITLYN Griffiths Primary Care Unavailabl e KYARA, CAITLYN Griffiths Primary Care Unavailabl e LUIZA ORDOÑEZ Attending Unavailable SMITA, LUIZA Reyes Attending Unavailable LUIZA ORDOÑEZ Referring Unavailable KYARA, CAITLYN Griffiths Primary Care Unavailabl e KYARA, CAITLYN Griffiths Referring Unavailabl e KYARA, CAITLYN Griffiths Primary Care Unavailabl e YURI, ZULEIKAAMMRAIN Attending Unavailable KYARA, CAITLYN Griffiths Referring Unavailabl e KYARA, CAITLYN Griffiths Primary Care Unavailabl e YURI, ZULEIKAAMMRAIN Referring Unavailable KYARA, CAITLYN Griffiths Primary Care Unavailabl e YURI, MOHAMMRAIN Referring Unavailable KYARA, CAITLYN Griffiths Primary Care Unavailabl e YURI, MOHAMMED Referring Unavailable KYARA, CAITLYN Griffiths Primary Care Unavailabl e LAQUITA SHARIF Attending Unavailable LAQUITA SHARIF Referring Unavailable KYARA, CAITLYN Griffiths Primary Care Unavailabl e KYARA, CAITLYN Griffiths Referring Unavailabl JO-ANN Vazquez Primary Care Unavailable Robyn CLEMONS, Jo-Ann Unavailable Allergies Allergy Classification Reported Allergen(s) Allergy Type Date of Onset Reaction(s) Facility (20 sources) Acetaminophen / HYDROcodone; Translations: [HYDROCODONE-ACETA MINOPHEN] Drug Allergy 10-09-2019 [place], [place] (9 sources) Acetaminophen / HYDROcodone; Translations: [Vicodin] Drug Allergy 09-10-2014 [facility] Repository Medications Current Medications Medication Drug Class(es) Dates Sig (Normalized) Sig (Original) Aimovig 140 MG/ML (6 sources) inject 140 mg by subcutaneous injection every month Aimovig 140 MG/ML as directed Subcutaneous monthly Active [id number] 200 actuat albuterol 0.09 mg/actuat metered dose inhaler (20 sources) beta2-Adrenergic Agonist take 2 puff(s) by [...] mg/ml / clotrimazole 10 mg/ml topical cream (7 sources) Azole Antifungal, Corticosteroid Start: 08-04-2024 clotrimazole-betamethasone (Lotrisone) cream Indications: Tinea pedis of both feet , Chronic dermatitis of feet Apply twice daily as directed 45 g 1 08/04/2024 Active 60 actuat budesonide 0.16 mg/actuat / formoterol fumarate 0.0045 mg/actuat metered dose inhaler (20 sources) Corticosteroid, beta2-Adrenergic Agonist take 2 puff(s) by inhalation in the morning budesonide-formoterol (Symbicort) 160-4.5 MCG/ACT inhaler Inhale 2 puffs in the morning and 2 puffs in the evening. Active take 2 puff(s) by inhalation twi ce daily Symbicort 160-4.5 MCG/ACT 2 puffs Inhalation Twice a day Active busPIRone hydrochloride 30 mg oral tablet (18 sources) take 1 tablet by mouth in the morning busPIRone (Buspar) 30 MG tablet Take 1 tablet by mouth in the morning and 1 tablet before bedtime. Active cariprazine 6 mg oral capsule (20 sources) Atypical Antipsychotic take 1 capsule by mouth in the morning Vraylar 6 MG capsule Take 1 capsule by mouth in the morning. Active take 1 capsule by mo [facility] every twenty-four hours Vraylar 4.5 MG 1 capsule Orally Once a day for 90 days Active cyclobenzaprine hydrochloride 10 mg oral tablet (19 sources) Muscle Relaxant take 1 tablet by mouth twice daily as needed cyclobenzaprine (Flexeril) 10 MG tablet Take 1 tablet by mouth 2 (two) times a day as needed Active take 1 tablet by anu twice daily as needed for muscle spasms [...] 05/23/2024 06/02/2024 Active take 1 capsule by [facility] every twenty-four hours Doxycycline Hyclate 100 MG 1 capsule Orally Once a day Not-Taking 0.3 ml enoxaparin sodium 100 mg/ml prefilled syringe (1 source) Low Molecular Weight Heparin enoxaparin (LOVENOX) 30 MG/0.3ML injection Inject 30 mg into the skin daily 0 Active 1 ml erenumab-aooe 140 mg/ml auto-injector (20 sources) Start: 10-25-19 End: 10-25-19 24 inject [...] source) 1 ml evolocumab 140 mg/ml auto-injector (10 sources) PCSK9 Inhibitor Start: Repatha SureClick 140 MG/ML injection Inject 140 [...] Start: 11-20-2018 take 1 capsule by mo [facility] once daily FLUoxetine HCl (PROZAC) 40 mg capsule Take 40 mg by mouth once daily. 0 11/20/2018 Active Comment on above: Take 40 mg by mouth once daily. gabapentin 300 mg oral capsule (18 sources) Anti-epileptic Agent Start: 4 take 1 capsule by mouth in the morning gabapentin (Neurontin) 300 MG capsule Take 300 mg by mouth in the morning and 300 mg before bedtime. 05/09/2024 Active hydrOXYzine pamoate 50 mg oral capsule (8 sources) Antihistamine Start: 4 hydrOXYzine pamoate (Vistaril) 50 MG capsule 50 mg 2 (two) times a day as needed 08/04/2024 Active hydrOXYzine HCl 10 MG as directed Orally every 8 hrs for 30 days Active ketoconazole 20 mg/ml medicated shampoo (18 sources) Azole Antifungal Start: 05-26-2024 ketoconazole (NIZOral) 2 % shampoo Indications: Folliculitis [...] 0 Active LORazepam 0.5 mg oral tablet (20 sources) Benzodiazepine Start: 10-19-2021 take 1 tablet by mouth every twenty-four hours Ativan 0.5 MG 1 tablet at bedtime as needed Orally Once a day for 10 days f41.1 Oct, Active take 1 tablet by anu th every six hours as needed LORazepam (Ativan) 0.5 MG tablet Take 1 tablet by mouth every 6 (six) hours if needed Active take 1 tablet by aun th every twenty-four hours Ativan 0.5 MG [...] time(s) a day for 30 days Active Roby-3 Fatty Acids (FISH OIL OMEGA-3 PO) (10 sources) take 2 tablets by mouth twice daily in the morning Roby-3 Fatty Acids (FISH OIL OMEGA-3 PO) Take [...] day at the same time 90 capsule 09/20/2024 12/19/2024 Active Start: 11-07-2018 take 1 capsule by mo [facility] once daily Omeprazole 40 mg capsule take 1 capsule by mouth once daily as directed 0 11/07/2018 Active take 1 capsule by mo [facility] twice daily Omeprazole 40 MG 1 capsule 30 minutes before morning meal Orally twice a day Not-Taking take 2 capsules by [facility] once daily omeprazole (PRILOSEC) 20 MG delayed release capsule Take 40 mg by mouth daily 0 Active Comment on above: take 1 capsule by mo [facility] once daily as directed ondansetron 4 mg oral tablet (20 sources) Serotonin-3 Receptor Antagonist Start: 05-25-2021 take 1 tablet by mouth once daily Zofran ODT 4 MG 1 tablet on the tongue and allow to dissolve Orally Once a day for 30 day(s) May, Active take 1 tablet by anu every eight hours as needed ondansetron ODT [...] oral tablet (20 sources) beta-Adrenergi c Gianni Start: 09-22-2024 take 1 tablet by mouth in the morning propranolol (Inderal) 20 MG tablet Indications: Tremor Take 1 tablet (20 mg) by mouth in the morning and 1 tablet (20 mg) before bedtime. 180 tablet 1 09/22/2024 Active End: 09-20-2024 propranolol (Inderal) 20 MG tablet 20 mg in the morning and 20 mg before bedtime. 09/20/2024 Discontinued (Reorder) take 1 tablet by anu th three times daily propranolol (INDERAL) 10 mg tablet Take 10 mg by mouth three times daily. 0 Active take 1 tablet by anu th twice daily propranolol (INDERAL) 10 MG tablet Take 10 [...] time per week 6 mL 05/14/2024 Active Tirzepatide (Mounjaro) 2.5 MG/0.5ML solution auto-injector (2 sources) Start: 09-15-2024 inject 2.5 mg by subcutaneous injection every week Tirzepatide (Mounjaro) 2.5 MG/0.5ML solution auto-injector Indications: Morbid (severe) obesity due to excess calories (CMS/HCC) , BOGDAN (obstructive sleep apnea) Inject 2.5 mg under the skin 1 (one) time per week 2 mL 1 09/15/2024 Active Tirzepatide 2.5 MG/0.5ML solution auto-injector (2 sources) Start: 09-16-2024 inject 2.5 mg by subcutaneous injection every week Tirzepatide 2.5 MG/0.5ML solution auto-injector Indications: Obstructive sleep apnea syndrome Inject 2.5 mg under the skin 1 (one) time per week 2 mL 1 09/16/2024 Active Tirzepatide-Weight Management (Zepbound) 2.5 MG/0.5ML solution auto-injector (1 source) Start: 09-22-2024 inject 2.5 mg by subcutaneous injection every week Tirzepatide-Weight Management (Zepbound) 2.5 MG/0.5ML solution auto-injector Indications: Obstructive sleep apnea syndrome Inject 2.5 mg under the skin 1 (one) time per week 2 mL 1 09/22/2024 Active traZODone hydrochloride 50 mg oral tablet (5 sources) Serotonin Reuptake Inhibitor take 1 tablet by mouth at bedtime traZODone (Desyrel) 50 MG tablet Take 50 mg by mouth at bedtime Active Completed/Discontinued Medications Medication Drug Class(es) Dates [...] 01/10/2022 Active take 1 tablet by anu every twelve hours Primidone 250 MG 1 [...] every evening rizatriptan 5 mg oral tablet (15 sources) Serotonin-1b and Serotonin-1d Receptor Agonist Start: 11-09-2020 take 1 tablet by mouth every two hours as needed rizatriptan (MAXALT) 5 mg tablet Indications: Intractable migraine without aura and without status migrainosus Take 1 tablet by mouth as needed. May repeat in 2 hours if needed 9 tablet 2 11/09/2020 Active rizatriptan (Max alt) 5 MG tablet 5 mg 1 (one) time if needed Active take 1 tablet by anu th every twenty-four hours Maxalt 10 MG 1 tablet Orally Once a day 5 mg PRN Active Comment on above: Take 1 tablet by anu th as needed. May repeat in 2 hours if needed Problems Active Problems Problem Classification Problem Date Documented Date Episodic/Chronic Allergic reactions (3 sources) Chronic dermatitis; Translations: [Dermatitis, unspecified] 08-04-2024 Episodic Anxiety disorders (18 sources) Anxiety; Translations: [Anxiety disorder, unspecified] Onset: 05-14-2024 05-14-2024 Chronic Asthma (18 sources) Asthma; Translations: [Unspecified asthma, uncomplicated] Onset: 12-08-2020 05-14-2024 Chronic Coma; stupor; and brain damage (3 sources) Daytime somnolence; Translations: [Somnolence] Episodic Diseases of white blood cells (1 source) Decreased white blood cell count, unspecified; Translations: [Decreased white blood cell count, unspecified] Onset: 02-29-2024 Chronic Disorders of lipid metabolism (9 sources) Dyslipidemia; Translations: [Mixed hyperlipidemia] Onset: 05-05-2024 06-16-2024 Chronic Esophageal disorders (20 sources) Gastroesophageal reflux disease without esophagitis; Translations: [Gastro-esophageal reflux disease without esophagitis] Onset: 12-08-2020 05-14-2024 Chronic Essential hypertension (1 source) Essential (primary) hypertension; Translations: [Essential (primary) hypertension] Onset: 02-29-2024 Chronic Headache; including migraine (18 sources) Migraine; Translations: [Migraine, unspecified, not intractable, [...] [Pain in right toe(s)] 08-04-2024 Episodic Other liver diseases (2 sources) Steatosis of liver; Translations: [Fatty (change of) liver, not elsewhere classified] 09-15-2024 Chronic Other liver diseases (2 sources) Elevated liver enzymes level; Translations: [Abnormal levels of other serum enzymes] 09-15-2024 Episodic Other nervous system disorders (3 sources) Narcolepsy without cataplexy ; 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] Chronic Other nervous system disorders (18 sources) Narcolepsy; 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] Onset: 05-14-2024 05-14-2024 Chronic Other nervous system disorders (1 source) Other chronic pain; Translations: [Other chronic pain] Onset: 03-08-2024 Chronic Other nervous system disorders (1 source) Chronic pain syndrome; Translations: [Chronic pain syndrome] Onset: 01-23-2024 Chronic Other nervous system disorders (1 source) Enhanced physiological tremor; Translations: [Tremor, unspecified] Episodic Other nervous system disorders (19 sources) Tremor; Translations: [Tremor, unspecified] Onset: 05-14-2024 05-14-2024 Episodic Other nutritional; endocrine; and metabolic disorders (20 sources) Obese class II; Translations: [Obesity, Class II, BMI 35-39.9] Onset: 02-23-2022 05-14-2024 Chronic Other nutritional; endocrine; and metabolic disorders (6 sources) Obesity caused by energy imbalance; Translations: [Morbid (severe) obesity due to excess calories] 06-16-2024 Chronic Other nutritional; endocrine; and metabolic disorders (2 sources) Body mass index 30+ - obesity; Translations: [Body mass index (BMI) 39.0-39.9, adult] 05-23-2024 Chronic Other nutritional; endocrine; and metabolic disorders (1 source) Obesity, unspecified; Translations: [Obesity, unspecified] Onset: 02-29-2024 Chronic Other skin disorders (2 sources) Folliculitis; Translations: [Follicular disorder, unspecified] 05-23-2024 Episodic Residual codes; unclassified (20 sources) Obstructive sleep apnea syndrome; Translations: [Obstructive sleep apnea (adult) (pediatric)] Onset: 02-23-2022 05-14-2024 Chronic Residual codes; unclassified (4 sources) Nicotine-filled electronic cigarette user; Translations: [Tobacco use] Onset: 09-15-2024 09-15-2024 Episodic Spondylosis; intervertebral disc disorders; other back problems (9 sources) Other spondylosis with radiculopathy, cervical region; [...] unspecified] Onset: 03-23-2024 Episodic Malaise and fatigue (19 sources) Fatigue; Translations: [Other fatigue] Onset: 02-23-2022 [...] 11-30-2023 Episodic Other skin disorders (1 source) Eruption; Translations: [Rash and other nonspecific skin eruption] 05-26-2024 Episodic Other skin disorders (1 source) Acanthosis [...] Value Interpretation Reference Range Facil ity MR CERVICAL SPINE WO CONTon 09-16-2024 MR CERVICAL SPINE WO CONT MR CERVICAL SPINE WO CONT EXAM: MR CERVICAL SPINE WO CONT INDICATION: Cervical spondylosis without myelopathy; Displacement of cervical intervertebral disc without myelopathy COMPARISON: 04/16/2018 TECHNIQUE/PROTOCOL: Multiplanar multisequence noncontrast cervical spine protocol MR performed. FINDINGS: Vertebral Bodies: Vertebral body heights and signal properties are normal. Desiccation of the intervertebral discs most pronounced at C5-C6 and C6-C7 Alignment: Straightening of normal cervical lordosis. Very minimal retrolisthesis of C6 on C7. Extradural:No abnormal extradural fluid collections or masses. Spinal Cord: Normal in caliber and signal. C2-C3: No spinal canal or foraminal stenosis. C3-C4: No spinal canal or foraminal stenosis. C4-C5: Minimal disc bulge. No significant spinal canal or neural foraminal stenosis. C5-C6: Disc bulge indents the ventral thecal sac. No significant spinal canal stenosis. No significant neural foraminal stenosis. Mild left uncovertebral hypertrophy. C6-C7: Disc bulge effaces the ventral thecal sac. No significant spinal canal stenosis. Mild left neural foraminal stenosis predominantly due to uncovertebral hypertrophy. C7-T1: No spinal canal or foraminal stenosis. Paraspinal Soft Tissues: Unremarkable. Neck Soft Tissues: Unremarkable. IMPRESSION: Mild degenerative disc disease most pronounced at the C5-C6 and C6-C7 levels. There is associated disc bulges without significant spinal canal stenosis. Mild left neural foraminal stenosis at C6-C7 on the left. Finalized by Luis A Myles on 09/16/2024 2:09 PM Normal [facility] Gynecology Office/Clinic Not freddie 08-13-2024 Gynecology Office/Clinic Note Chief Complaint Annual. History of Present Illness Pelvic Pain: No Painful Sex: No Abnormal Vaginal Discharge: No Abnormal Vaginal Bleeding: No Vaginal Dryness: No Vaginal Itch: No Vaginal Burning: No Vaginal Odor: No Hot Flashes: Yes Night Sweats: Yes Breast Lump: No Breast Pain: No Sexually Active: Yes Date You Last Had Sex: 4 weeks ago Partners in Last 30 Days: 1 Partners in Last 12 Months: 1 Partners in Your Lifetime: 10 Kinds of Sex: Vaginal Forced to Have Sex: No Partner Had More Than 1 Partner: Yes Partner IV Drug Use: No Consistently Use Condoms: No 08/11/24 16:05:00 39 y/o . Annual. Last pap: S/P Lew TLH/ BS, Cystoscopy on 10/07/19. Post Op Repair Labia, Bilateral Labioplasty on 11/30/20. Mammogram: Never. will start annual at age 41. Lab work: Pt had PCP do labs 05/2024. Nl CBC, CMP (outside of elevated AST, ALT), nl TSH, cholesterol is 276 and triglycerides 488. Nl CBC, elevated D dimer, fasting glucose 110, HgbA1c 5.0%, nl Vit D. c/o unexplained weight gain. was 167# in 10/2022 and now is 221#. denies dietary changes. Interested in Weight loss meds. Thinks her insurance will cover after 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 [employer] Additional Details Contraception Contraception TypeIntrauterine device, Vasectomy Review of Systems Head Migraines: Yes Headaches: No Eyes Corrective Lenses: Contact lenses Ears, Nose, Throat Congestion: No Vertigo: Yes Vertigo comment: occas Sore throat: No Nasal drainage: No Cardio Respiratory Peripheral edema: No Heart Irregularity: Yes Heart Irregularity comment: palpitations Chest Pain: No Shortness of Breath: Yes Gastrointestinal Bloating: Yes Reflux/heartburn: Yes Abdominal Pain: No Change in bowel habits: No Urinary Urinary Incontinence: No Urinary frequency: No Nocturia: No Urgency: No Painful urination: No Musculoskeletal Back Pain: Yes Muscle Aches: Yes Joint Pain: No Integumentary Lesions: No Moles: No Acne: No Hair changes: No PsychoSocial Sleep Problems: Yes Anxiety: Yes Suicidal Ideation: No Homicidal Ideation: No Depression: Yes Hematologic/Lymphatic Lymphadenopathy: No Thromboembolism: No Bruising: No Bleeding tendencies: No Endocrine Abnormal weight gain: Yes Abnormal weight loss: No Fatigue: Yes Additional Details Pain Present Physical Exam Vitals & Measurements BP: 114/74 HT: 159 cm WT: 100.4 kg WT: 100.4 kg (Dosing) BMI: 39.71 General: Alert and oriented x 3. Well nourished. No acute distress. Obesity HEENT: Normocephalic. Normal hearing. Moist oral mucosa. No scleral icterus. No sinus tenderness. Neck: Supple, non-tender. Normal thyroid. No lymphadenopathy. Lungs: Clear to auscultation and percussion. Non-labored respiration. Heart: Normal rate with regular rhythm. No murmur, gallop or edema. Abdomen: Soft, non-tender, non-distended. Normal bowel sounds and no masses appreciated. Protuberant Musculoskeletal: Normal range of motion and strength. No tenderness or swelling noted. Skin: Skin is warm, dry and pink. No rashes or lesions. Neurologic: CN II-XII grossly intact. Psychiatric: Cooperative. Appropriate mood and affect. Breast exam: No masses, tenderness, or skin changes. No nipple discharge. External Genitalia: Normal urethral meatus. No lesions. Vulvar skin intact. Genitourinary: Normal vaginal mucosa. No lesions or abnormal discharge. Cervix intact without lesion. No cystocele or rectocele. Bimanual exam: Normal sized, non-tender, mobile uterus. No adnexal tenderness or masses. Assessment/Plan 1. Encounter for gynecological examination Physician Comments 1. Recommend monthly self breast exam and call with any changes. 2. Recommend yearly mammogram starting at age 40 (sooner if family history). 3. Recommend colonoscopy to screen for colon cancer beginning at age 45. Gave option of Cologuard if unwilling to do colonoscopy. 4. Recommend vitamin D 1000-2000IU daily. 5. Recommend calcium either through diet (3 servings of dairy daily) or if not able to get through diet then recommend supplement 1200mg daily in divided doses. 6. Recommend healthy diet. 7. Recommend exercise 30 min 5 days weekly. Medical Decision Making Chronic conditions NOT treated during this visit that affected my overall medical decision making: [] Treatment plans discussed but not opted for at this time: [] Prescribed medication that requires intensive monitoring for toxicity: [] I have reviewed the patient?s medication list for medication interactions/contraind ications and/or for upcoming procedures: [yes or no] Time Spent with the Patient I have personally spent [] minutes on this date, directly related to today's patient visit, including pre and post visit work, for this date of service. Time listed does not include time spent on separately billable services. Problem List/Past Medical History Ongoing Acid reflux Anxiety Asthma D (more content not included)... Normal [facility] COMPREHENSIVE METABOLIC PANE Mika 05-19-2024 Albumin [Mass/Vol] 4.6 g/dL Normal 3.2-5.3 [facility] Comment on above: Performed By: #### C EVIN, 60548-7, THYR, CBCA, 53827-5 #### [facility] ([id number]) [address], [address] [place] [address] ALP [Catalytic activity/Vol] 78 U/L Normal 39-130 [facility] Comment on above: Performed By: #### C EVIN, 81523-0, THYR, CBCA, 73154-7 #### [facility] ([id number]) [address], [address] [place] [address] ALT [Catalytic activity/Vol] 85 U/L High 0-31 [facility] Comment on above: Performed By: #### C EVIN, 78396-1, THYR, CBCA, 54812-5 #### [facility] ([id number]) [address], [address] [place] [address] Anion gap [Moles/Vol] 15 mmol/L Normal 5-15 [facility] Comment on above: Performed By: #### C EVIN, 46473-6, THYR, CBCA, 91714-7 #### [facility] ([id number]) [address], [address] [place] [address] AST [Catalytic activity/Vol] 54 U/L High 0-41 [facility] Comment on above: Performed By: #### C EVIN, 41832-0, THYR, CBCA, 04793-6 #### [facility] ([id number]) [address], [address] [place] [address] Bilirubin [Mass/Vol] 0.6 mg/dL Normal 0.3-1.2 [facility] Comment on above: Performed By: #### C EVIN, 20824-2, THYR, CBCA, 56657-1 #### [facility] ([id number]) [address], [address] [place] [address] Calcium [Mass/Vol] 9.6 mg/dL Normal 8.5-10.5 [facility] Comment on above: Performed By: #### C EVIN, 61614-2, THYR, CBCA, 67541-8 #### [facility] ([id number]) [address], [address] [place] [address] Chloride [Moles/Vol] 102 mmol/L Normal 98-109 [facility] Comment on above: Performed By: #### C EVIN, 80440-1, THYR, CBCA, 92308-4 #### [facility] ([id number]) [address], [address] [place] [address] CO2 [Moles/Vol] 19 mmol/L Low 22-32 [facility] Comment on above: Performed By: #### C EVIN, 30826-8, THYR, CBCA, 93539-5 #### [facility] ([id number]) [address], [address] [place] [address] Creatinine [Mass/Vol] 0.89 mg/dL Normal 0.40-1.00 [facility] Comment on above: Result Comment: METH OD TRACEABLE TO IDMS STANDARD Performed By: #### C EVIN, 52188-9, THYR, CBCA, 82821-0 #### [facility] ([id number]) [address], [address] [place] [address] GFR/1.73 sq M.predicted among non-blacks MDRD (S/P/Bld) [Vol rate/Area] 86 mL/min/{1.73_m2} Normal >59 [facility] Comment on above: Result Comment: Reported eGFR is based on the CKD-EPI 2020 equation that does not use a race coefficient. Performed By: #### Mariam CLEARY, 03390-4, THYR, CBCA, 27362-4 #### [facility] ([id number]) [address], [address] [place] [address] Glucose [Mass/Vol] 95 mg/dL Normal 65-99 [facility] Comment on above: Performed By: #### Mariam CLEARY, 01782-9, THYR, CBCA, 76970-5 #### [facility] ([id number]) [address], [address] [place] [address] Potassium [Moles/Vol] 4.0 mmol/L Normal 3.5-5.0 [facility] Comment on above: Performed By: #### Mariam CLEARY, 36707-2, THYR, CBCA, 52857-3 #### [facility] ([id number]) [address], [address] [place] [address] Protein [Mass/Vol] 7.0 g/dL Normal 6.0-8.0 [facility] Comment on above: Performed By: #### C EVIN, 72459-3, THYR, CBCA, 92737-7 #### [facility] ([id number]) [address], [address] [place] [address] Sodium [Moles/Vol] 136 mmol/L Normal 134-146 [facility] Comment on above: Performed By: #### C EVIN, 86237-7, THYR, CBCA, 25884-6 #### [facility] ([id number]) [address], [address] [place] [address] Urea nitrogen [Mass/Vol] 10 mg/dL Normal 5-23 [facility] Comment on above: Performed By: #### C EVIN, 49232-6, THYR, CBCA, 18201-4 #### [facility] ([id number]) [address], [address] [place] [address] DIRECT LDLon 05-19-2024 Cholesterol in LDL [Mass/Vol] 181 mg/dL High <130 [facility] Comment on above: Result Comment: LDL <100 mg/dL - Desirable LDL 130-159 mg/dL - Borderline High Risk LDL >160 mg/dL - High Risk Performed By: #### C EVIN, 77450-4, THYR, CBCA, 99596-4 #### [facility] ([id number]) [address], [address] [place] [address] LIVER PANELon 05-19-2024 Bilirubin.direct [Mass/Vol] 0.1 mg/dL Normal 0.0-0.4 [facility] Comment on above: Performed By: #### C EVIN, 92958-1, THYR, CBCA, 62009-5 #### [facility] ([id number]) [address], [address] [place] [address] Lipid 1996 panelon 4 Cholesterol [Mass/Vol] 276 mg/dL High 150-200 [facility] Comment on above: Performed By: #### C EVIN, 11521-1, THYR, CBCA, 77859-8 #### [facility] ([id number]) [address], [address] [place] [address] Cholesterol in HDL [Mass/Vol] 42 mg/dL Normal >39 [facility] Comment on above: Result Comment: HDL <40 mg/dL - High Risk HDL > or = 40mg/dL- Desirable HDL >60 mg/dL - Negative Risk Performed By: #### C EVIN, 59926-1, THYR, CBCA, 56170-9 #### [facility] ([id number]) [address], [address] [place] [address] Cholesterol in VLDL [Mass/Vol] 98 mg/dL High 0-30 [facility] Comment on above: Performed By: #### C EVIN, 36609-5, THYR, CBCA, 99905-7 #### [facility] ([id number]) [address], [address] [place] [address] CHOLESTEROL:HDL 6.6 High 1.0-5.0 [facility] Comment on above: Performed By: #### C EVIN, 54920-8, THYR, CBCA, 82307-5 #### [facility] ([id number]) [address] [place] [address] LDL (CALC) RESULT NOT REPORTED DUE TO HIGH TRIGLYCERIDE Normal <130 [facility] Comment on above: Performed By: #### C EVIN, 85321-0, THYR, CBCA, 80416-3 #### [facility] ([id number]) [address], [address] [place] [address] Triglyceride [Mass/Vol] 488 mg/dL High 27-150 [facility] Comment on above: Performed By: #### C MP, 29290-0, THYR, CBCA, 37423-1 #### [facility] ([id number]) [address], [address] [place] [address] MR LUMBAR SPINE WO CONTon MR LUMBAR [...] on 03/26/2024 1:45 PM Normal [facility] CBC AND AUTO DIFFon 03-23-20 24 ABSOLUTE BASOPHIL 0.0 X10E9/L Normal 0.0-0.2 [facility] Comment on above: Performed By: #### C EVIN, 25765-0, THYR, CBCA, 86376-3 #### [facility] ([id number]) [address], [address] [place] [address] ABSOLUTE NEUTROPHIL 4.7 X10E9/L Normal 1.5-6.6 [facility] Comment on above: Performed By: #### C EVIN, 24227-1, THYR, CBCA, 83190-6 #### [facility] ([id number]) [address], [facility] [address] [place] [address] Basophils/100 WBC (Bld) 0.3 % Normal [facility] Comment on above: Performed By: #### C EVIN, 79984-8, THYR, CBCA, 27172-8 #### [facility] ([id number]) [address] [place] [address] Eosinophils (Bld) [#/Vol] 0.0 10*3/uL Normal 0.0-0.4 [facility] Comment on above: Performed By: #### C EVIN, 36750-3, THYR, CBCA, 48092-2 #### [facility] ([id number]) [address] [address] [place] [address] Eosinophils/100 WBC (Bld) 0.4 % Normal [facility] Comment on above: Performed By: #### C EVIN, 93743-2, THYR, CBCA, 09881-4 #### [facility] ([id number]) [address] [address] [place] [address] Erythrocyte distribution width (RBC) [Ratio] 13.5 % Normal 11.5-15.0 [facility] Comment on above: Performed By: #### C EVIN, 41839-3, THYR, CBCA, 35283-5 #### [facility] ([id number]) [address] [place] [address] Hematocrit (Bld) [Volume fraction] 44.6 % Normal 35-47 [facility] Comment on above: Performed By: #### C EVIN, 73122-0, THYR, CBCA, 33155-7 #### [facility] ([id number]) [address], [address] [place] [address] Hemoglobin (Bld) [Mass/Vol] 15.6 g/dL High 11.7-15.5 [facility] Comment on above: Performed By: #### C EVIN, 10032-8, THYR, CBCA, 07158-9 #### [facility] ([id number]) [address] [address] [place] [address] Lymphocytes (Bld) [#/Vol] 0.5 10*3/uL Low 1.0-3.5 [facility] Comment on above: Performed By: #### C EVIN, 95068-7, THYR, CBCA, 00735-5 #### [facility] ([id number]) [address] [address] [place] [address] Lymphocytes/100 WBC (Bld) 8.7 % Normal [facility] Comment on above: Performed By: #### C EVIN, 47345-2, THYR, CBCA, 71678-3 #### [facility] ([id number]) [address], [address] [place] [address] MCH (RBC) [Entitic mass] 32.5 pg Normal 27-34 [facility] Comment on above: Performed By: #### C EVIN, 60432-9, THYR, CBCA, 17856-5 #### [facility] ([id number]) [address] [place] [address] MCHC (RBC) [Mass/Vol] 34.9 g/dL Normal 32-36 [facility] Comment on above: Performed By: #### C EVIN, 47113-5, THYR, CBCA, 56855-3 #### [facility] ([id number]) [address], [address] [place] [address] MCV (RBC) [Entitic vol] 93 fL Normal 80-100 [facility] Comment on above: Performed By: #### C EVIN, 99090-8, THYR, CBCA, 92798-7 #### [facility] ([id number]) [address], [facility] [address] [place] [address] Monocytes (Bld) [#/Vol] 0.0 10*3/uL Normal 0-0.9 [facility] Comment on above: Performed By: #### C EVIN, 38362-6, THYR, CBCA, 97562-2 #### [facility] ([id number]) [address], [address] [place] [address] Monocytes/100 WBC (Bld) 0.6 % Normal [facility] Comment on above: Performed By: #### Mariam CLEARY, 52471-7, THYR, CBCA, 49216-1 #### [facility] ([id number]) [address] [address] [place] [address] Neutrophils/100 WBC (Bld) 90.0 % Normal [facility] Comment on above: Performed By: #### C EVIN, 44362-1, THYR, CBCA, 05292-9 #### [facility] ([id number]) [address], [address] [place] [address] Platelet mean volume (Bld) [Entitic vol] 7.2 fL Normal 7-12 [facility] Comment on above: Performed By: #### C EVIN, 47197-2, THYR, CBCA, 19051-3 #### [facility] ([id number]) [address], [address] [place] [address] Platelets (Bld) [#/Vol] 286 10*3/uL Normal 150-450 [facility] Comment on above: Performed By: #### C EVIN, 42269-4, THYR, CBCA, 22427-6 #### [facility] ([id number]) [address], [address] [place] [address] RBC COUNT 4.80 X10E12/L Normal 3.80-5.20 [facility] Comment on above: Performed By: #### C EVIN, 33883-9, THYR, CBCA, 34395-1 #### [facility] ([id number]) [address], [address] [place] [address] WBC (Bld) [#/Vol] 5.3 10*3/uL Normal 4.0-11.0 [facility] Comment on above: Performed By: #### C EVIN, 08893-9, THYR, CBCA, 30973-6 #### [facility] ([id number]) [address], [address] [place] [address] COMPREHENSIVE METABOLIC PANE Mika 03-23-2024 Albumin [Mass/Vol] 4.2 g/dL Normal 3.2-5.3 [facility] Comment on above: Performed By: #### C EVIN, 67807-8, THYR, CBCA, 62304-7 #### [facility] ([id number]) [address], [address] [place] [address] ALP [Catalytic activity/Vol] 115 U/L Normal 39-130 [facility] Comment on above: Performed By: #### C EVIN, 29078-5, THYR, CBCA, 56455-8 #### [facility] ([id number]) [address], [address] [place] [address] ALT [Catalytic activity/Vol] 81 U/L High 0-31 [facility] Comment on above: Performed By: #### C EVIN, 21288-6, THYR, CBCA, 26080-0 #### [facility] ([id number]) [address], [address] [place] [address] Anion gap [Moles/Vol] 14 mmol/L Normal 5-15 [facility] Comment on above: Performed By: #### C EVIN, 61463-3, THYR, CBCA, 50722-8 #### [facility] ([id number]) [address], [address] [place] [address] AST [Catalytic activity/Vol] 48 U/L High 0-41 [facility] Comment on above: Performed By: #### C EVIN, 92001-2, THYR, CBCA, 87271-5 #### [facility] ([id number]) [address], [address] [place] [address] Bilirubin [Mass/Vol] 1.3 mg/dL High 0.3-1.2 [facility] Comment on above: Performed By: #### C EVIN, 69126-5, THYR, CBCA, 66984-6 #### [facility] ([id number]) [address], [address] [place] [address] Calcium [Mass/Vol] 9.3 mg/dL Normal 8.5-10.5 [facility] Comment on above: Performed By: #### C EVIN, 41036-2, THYR, CBCA, 02585-2 #### [facility] ([id number]) [address], [address] [place] [address] Chloride [Moles/Vol] 97 mmol/L Low 98-109 [facility] Comment on above: Performed By: #### C EVIN, 22580-3, THYR, CBCA, 59122-2 #### [facility] ([id number]) [address], [address] [place] [address] CO2 [Moles/Vol] 22 mmol/L Normal 22-32 [facility] Comment on above: Performed By: #### C EVIN, 02085-9, THYR, CBCA, 95721-4 #### [facility] ([id number]) [address], [address] [place] [address] Creatinine [Mass/Vol] 0.91 mg/dL Normal 0.40-1.00 [facility] Comment on above: Result Comment: METH OD TRACEABLE TO IDMS STANDARD Performed By: #### C EVIN, 40978-2, THYR, CBCA, 17677-1 #### [facility] ([id number]) [address], [address] [place] [address] GFR/1.73 sq M.predicted among non-blacks MDRD (S/P/Bld) [Vol rate/Area] 83 mL/min/{1.73_m2} Normal >59 [facility] Comment on above: Result Comment: Reported eGFR is based on the CKD-EPI 2020 equation that does not use a race coefficient. Performed By: #### C EVIN, 41222-2, THYR, CBCA, 00545-5 #### [facility] ([id number]) [address], [address] [place] [address] Glucose [Mass/Vol] 110 mg/dL High 65-99 [facility] Comment on above: Performed By: #### C EVIN, 83508-6, THYR, CBCA, 60588-6 #### [facility] ([id number]) [address], [address] [place] [address] Potassium [Moles/Vol] 3.8 mmol/L Normal 3.5-5.0 [facility] Comment on above: Performed By: #### Mariam CLEARY, 36229-8, THYR, CBCA, 88288-0 #### [facility] ([id number]) [address], [address] [place] [address] Protein [Mass/Vol] 8.0 g/dL Normal 6.0-8.0 [facility] Comment on above: Performed By: #### C MP, 39369-5, THYR, CBCA, 12331-8 #### [facility] ([id number]) [address], [address] [place] [address] Sodium [Moles/Vol] 133 mmol/L Low 134-146 [facility] Comment on above: Performed By: #### C MP, 39685-2, THYR, CBCA, 05741-3 #### [facility] ([id number]) [address], [address] [place] [address] Urea nitrogen [Mass/Vol] 13 mg/dL Normal 5-23 [facility] Comment on above: Performed By: #### C MP, 29237-9, THYR, CBCA, 11385-0 #### [facility] ([id number]) [address], [address] [place] [address] CT CTA CHESTon 03-23-2024 CT CTA CHEST [...] on 03/23/2024 10:52 PM Normal [facility] Fibrin D-dimer DDU (PPP) [Ma ss/Vol]on 03-23-2024 D DIMER 336 ng/mL DDU High <255 [facility] Comment on above: Result Comment: Results [...] D-Dimer level. Performed By: #### C EVIN, 29934-6, THYR, CBCA, 02444-2 #### [facility] ([id number]) [address], [address] [place] [address] HCG ( test) Ql (U)o n 03-23-2024 Beta HCG ( test) Ql (U) Negative Normal NEG [facility] Comment on above: Performed By: #### C EVIN, 37444-9, THYR, CBCA, 14409-7 #### [facility] ([id number]) [address], [address] [place] [address] LIPASEon 03-23-2024 Lipase [Catalytic activity/Vol] 30 U/L Normal 17-40 [facility] Comment on above: Performed By: #### C EVIN, 77214-9, THYR, CBCA, 45944-0 #### [facility] ([id number]) [address], [address] [place] [address] THYROID PROFILEon 03-23-2024 Free T4 [Mass/Vol] 0.74 ng/dL Normal 0.61-1.60 [facility] Comment on above: Performed By: #### C EVIN, 10073-5, THYR, CBCA, 72135-4 #### [facility] ([id number]) [address], [address] [place] [address] TSH 1.64 uIU/mL Normal 0.49-4.67 [facility] Comment on above: Performed By: #### Marima CLEARY, 33434-2, THYR, CBCA, 65670-4 #### [facility] ([id number]) [address], [address] [place] [address] Troponin I.cardiac High sens itivity method [Mass/Vol]on 03-23-2024 1 HOUR TROP I, HIGH SENSITIVITY 3 ng/L Normal <16 [facility] Comment on above: Performed By: #### Mariam CLEARY, 24587-1, THYR, CBCA, 10945-0 #### [facility] ([id number]) [address], [address] [place] [address] TROPONIN I, HIGH SENSITIVITY 2 ng/L Normal <16 [facility] Comment on above: Performed By: #### Mariam CLEARY, 82241-6, THYR, CBCA, 04860-2 #### [facility] ([id number]) [address], [address] [place] [address] URINE CULTUREon 03-23-2024 Bacteria identified Cx Nom [...] TOBRAMYCIN S <=1 F TRIMETH/SULFAMETHOXAZO LE S <=09/28 F Susceptible [facility] Comment on above: Performed By: #### C EVIN, 08283-1, THYR, CBCA, 34478-5 #### [facility] ([id number]) [address], [address] [place] [address] URN MACROSCOPIC NURon 2023 BILIRUBIN LUL Negative Normal NEG [facility] Comment on above: Performed By: #### C EVIN, 23301-8, THYR, CBCA, 10738-5 #### [facility] ([id number]) [address], [address] [place] [address] BLOOD/HGB LUL Small Abnormal NEG [facility] Comment on above: Performed By: #### C EVIN, 62758-8, THYR, CBCA, 45512-0 #### [facility] ([id number]) [address], [address] [place] [address] GLUCOSE LUL Negative Normal [facility] Comment on above: Performed By: #### C EVIN, 82829-5, THYR, CBCA, 76063-3 #### [facility] ([id number]) [address], [address] [place] [address] KETONES LUL Negative Normal NEG [facility] Comment on above: Performed By: #### C EVIN, 52490-9, THYR, CBCA, 52005-9 #### [facility] ([id number]) [address], [address] [place] [address] LEUKOCYTE ESTERASE LUL Small Abnormal NEG [facility] Comment on above: Performed By: #### C EVIN, 34855-9, THYR, CBCA, 42160-7 #### [facility] ([id number]) [address], [address] [place] [address] NITRITE LUL Negative Normal NEG [facility] Comment on above: Performed By: #### C MP, 58274-8, THYR, CBCA, 28299-5 #### [facility] ([id number]) [address], [address] [place] [address] PH LUL 5.5 Normal 5.0-8.5 [facility] Comment on above: Performed By: #### C MP, 84520-0, THYR, CBCA, 36423-2 #### [facility] ([id number]) [address], [address] [place] [address] PROTEIN LUL Negative Normal NEG [facility] Comment on above: Performed By: #### C MP, 42739-4, THYR, CBCA, 76916-6 #### [facility] ([id number]) [address], [address] [place] [address] SPECIFIC GRAVITY LUL 1.010 Normal 1.003-1.035 [facility] Comment on above: Performed By: #### C MP, 93382-1, THYR, CBCA, 62292-4 #### [facility] ([id number]) [address], [address] [place] [address] UROBILINOGEN LLU 0.2 eu/dL Normal <1.1 [facility] Comment on above: Performed By: #### C MP, 09980-5, THYR, CBCA, 24426-3 #### [facility] ([id number]) [address], [address] [place] [address] CBC AND AUTO DIFFon -- 24 ABSOLUTE BASOPHIL 0.0 X10E9/L Normal 0.0-0.2 [facility] Comment on above: Performed By: #### C BCA, HA1C, THYR, 92281-4 #### [facility] ([id number]) [address], [address] [place] [address] ABSOLUTE NEUTROPHIL 2.8 X10E9/L Normal 1.5-6.6 [facility] Comment on above: Performed By: #### C JORGE L, HA1C, THYR, 29884-5 #### [facility] ([id number]) [address], [address] [place] [address] Basophils/100 WBC (Bld) 0.7 % Normal [facility] Comment on above: Performed By: #### C BCA, HA1C, THYR, 96773-3 #### [facility] ([id number]) [address], [address] [place] [address] Eosinophils (Bld) [#/Vol] 0.1 10*3/uL Normal 0.0-0.4 [facility] Comment on above: Performed By: #### Mariam BCA, HA1C, THYR, 43152-0 #### [facility] ([id number]) [address], [address] [place] [address] Eosinophils/100 WBC (Bld) 2.1 % Normal [facility] Comment on above: Performed By: #### C JORGE L, HA1C, THYR, 18487-9 #### [facility] ([id number]) [address], [address] [place] [address] Erythrocyte distribution width (RBC) [Ratio] 13.7 % Normal 11.5-15.0 [facility] Comment on above: Performed By: #### C BCA, HA1C, THYR, 23535-2 #### [facility] ([id number]) [address], [address] [place] [address] Hematocrit (Bld) [Volume fraction] 45.0 % Normal 35-47 [facility] Comment on above: Performed By: #### C BCA, HA1C, THYR, 23296-8 #### [facility] ([id number]) [address], [address] [place] [address] Hemoglobin (Bld) [Mass/Vol] 15.5 g/dL Normal 11.7-15.5 [facility] Comment on above: Performed By: #### C JORGE L, HA1C, THYR, 98725-1 #### [facility] ([id number]) [address], [address] [place] [address] Lymphocytes (Bld) [#/Vol] 1.4 10*3/uL Normal 1.0-3.5 [facility] Comment on above: Performed By: #### C BCA, HA1C, THYR, 98655-3 #### [facility] ([id number]) [address], [facility] [address] [place] [address] Lymphocytes/100 WBC (Bld) 28.9 % Normal [facility] Comment on above: Performed By: #### C JORGE L, HA1C, THYR, 89245-4 #### [facility] ([id number]) [address], [address] [place] [address] MCH (RBC) [Entitic mass] 32.0 pg Normal 27-34 [facility] Comment on above: Performed By: #### Mariam COATS, HA1C, THYR, 66672-5 #### [facility] ([id number]) [address], [address] [place] [address] MCHC (RBC) [Mass/Vol] 34.3 g/dL Normal 32-36 [facility] Comment on above: Performed By: #### C BCA, HA1C, THYR, 22613-8 #### [facility] ([id number]) [address], [address] [place] [address] MCV (RBC) [Entitic vol] 93 fL Normal 80-100 [facility] Comment on above: Performed By: #### Mariam BCA, HA1C, THYR, 12180-4 #### [facility] LAB ([id number]) [address], [address] [place] [address] Monocytes (Bld) [#/Vol] 0.4 10*3/uL Normal 0-0.9 [facility] Comment on above: Performed By: #### C OJRGE L, HA1C, THYR, 51465-1 #### [facility] ([id number]) [address], [address] [place] [address] Monocytes/100 WBC (Bld) 8.4 % Normal [facility] Comment on above: Performed By: #### C BCA, HA1C, THYR, 31440-9 #### [facility] ([id number]) [address], [address] [place] [address] Neutrophils/100 WBC (Bld) 59.9 % Normal [facility] Comment on above: Performed By: #### C JORGE L, HA1C, THYR, 36610-6 #### [facility] ([id number]) [address], [address] [place] [address] Platelet mean volume (Bld) [Entitic vol] 8.5 fL Normal 7-12 [facility] Comment on above: Performed By: #### Mariam COATS, HA1C, THYR, 92174-1 #### [facility] ([id number]) [address], [address] [place] [address] Platelets (Bld) [#/Vol] 272 10*3/uL Normal 150-450 [facility] Comment on above: Performed By: #### Mariam BCA, HA1C, THYR, 35453-8 #### [facility] ([id number]) [address], [address] [place] [address] RBC COUNT 4.83 X10E12/L Normal 3.80-5.20 [facility] Comment on above: Performed By: #### Mariam BCA, HA1C, THYR, 00344-7 #### [facility] ([id number]) [address], [address] [place] [address] WBC (Bld) [#/Vol] 4.7 10*3/uL Normal 4.0-11.0 [facility] Comment on above: Performed By: #### C BCA, HA1C, THYR, 24014-6 #### [facility] ([id number]) [address], [address] [place] [address] HGB A1C (GLYCO-HGB)on 2023 Glucose [Mass/Vol] 97 mg/dL Normal [facility] Comment on above: Performed By: #### C BCA, HA1C, THYR, 97481-0 #### [facility] ([id number]) [address], [facility] [address] [place] [address] HbA1c (Bld) [Mass fraction] 5.0 % Normal 4.4-5.6 [facility] Comment on above: Result Comment: NOTE ADA Guidelines Result HgbA1c Normal : less than 5.7 % Prediabetes : 5.7 % to 6.4 % Diabetes : > 6.4 % Use with caution in patients with abnormal hemoglobin variants as the half-life of red blood cells and in vivo glycation rates are affected. Performed By: #### C BCA, HA1C, THYR, 49079-3 #### [facility] ([id number]) [address], [address] [place] [address] THYROID PROFILEon 02-29-2024 Free T4 [Mass/Vol] 0.67 ng/dL Normal 0.61-1.60 [facility] Comment on above: Performed By: #### C BCA, HA1C, THYR, 29760-0 #### [facility] ([id number]) [address], [address] [place] [address] TSH 1.84 uIU/mL Normal 0.49-4.67 [facility] Comment on above: Performed By: #### C BCA, HA1C, THYR, 24406-9 #### [facility] ([id number]) [address] [facility], [address] [place] [address] Vitamin D+Metabolites [Mass/ Vol]on 02-29-2024 VITAMIN D 25 HYD TOT 32.3 ng/mL Normal 30-100 [facility] Comment on above: Result Comment: Vitamin D status 25 [place] Vitamin D Deficiency <20 ng/mL Insufficiency 20-29 ng/mL Sufficiency 30-100 ng/mL Toxicity >100 ng/mL NOTE: A pediatric reference range has not been established by the still pump operator of this kit. The [place] [employer] recommends a Vitamin D level of = or >20ng/mL in infants and children. Performed By: #### [place], 09048-6, THYR, CBCA, 28518-3 #### [facility] ([id number]) [facility] [facility], [address] [place] [address] XR LUMBAR SPINE AP, LATERAL, FLEXION AND [...] on 12/03/2023 10:04 AM Normal [facility] XR SPINE CERVICAL 3 VWS OR [...] on 12/02/2023 7:06 AM Normal [facility] CBC AND AUTO DIFFon 11-30-19 ABSOLUTE BASOPHIL 0.0 X10E9/L Normal 0.0-0.2 [facility] Comment on above: Performed By: #### C EVIN, 16539-0, THYR, CBCA, 19250-9 #### [facility] ([id number]) [address] [place] [address] ABSOLUTE NEUTROPHIL 2.5 X10E9/L Normal 1.5-6.6 [facility] Comment on above: Performed By: #### Mariam CLEARY, 96165-7, THYR, CBCA, 91141-2 #### [facility] ([id number]) [address] [address] [place] [address] Basophils/100 WBC (Bld) 0.5 % Normal [facility] Comment on above: Performed By: #### Mariam CLEARY, 46626-6, THYR, CBCA, 21728-4 #### [facility] ([id number]) [address] [place] [address] Eosinophils (Bld) [#/Vol] 0.0 10*3/uL Normal 0.0-0.4 [facility] Comment on above: Performed By: #### C EVIN, 99705-7, THYR, CBCA, 17311-9 #### [facility] ([id number]) [address] [address] [place] [address] Eosinophils/100 WBC (Bld) 1.2 % Normal [facility] Comment on above: Performed By: #### C EVIN, 97001-8, THYR, CBCA, 87088-6 #### [facility] ([id number]) [address], [address] [place] [address] Erythrocyte distribution width (RBC) [Ratio] 13.7 % Normal 11.5-15.0 [facility] Comment on above: Performed By: #### C EVIN, 08980-7, THYR, CBCA, 78951-2 #### [facility] ([id number]) [address], [facility] [address] [place] [address] Hematocrit (Bld) [Volume fraction] 43.0 % Normal 35-47 [facility] Comment on above: Performed By: #### C EVIN, 87344-7, THYR, CBCA, 17965-8 #### [facility] ([id number]) [address], [address] [place] [address] Hemoglobin (Bld) [Mass/Vol] 15.0 g/dL Normal 11.7-15.5 [facility] Comment on above: Performed By: #### C EVIN, 92996-0, THYR, CBCA, 78405-7 #### [facility] ([id number]) [address], [facility] [address] [place] [address] Lymphocytes (Bld) [#/Vol] 0.9 10*3/uL Low 1.0-3.5 [facility] Comment on above: Performed By: #### C EVIN, 51612-8, THYR, CBCA, 36287-5 #### [facility] ([id number]) [address], [facility] [address] [place] [address] Lymphocytes/100 WBC (Bld) 23.6 % Normal [facility] Comment on above: Performed By: #### C EIVN, 07983-5, THYR, CBCA, 34630-1 #### [facility] ([id number]) [address], [address] [place] [address] MCH (RBC) [Entitic mass] 32.2 pg Normal 27-34 [facility] Comment on above: Performed By: #### C EVIN, 72639-9, THYR, CBCA, 17388-9 #### [facility] ([id number]) [address], [address] [place] [address] MCHC (RBC) [Mass/Vol] 35.0 g/dL Normal 32-36 [facility] Comment on above: Performed By: #### Mariam CLEARY, 82132-9, THYR, CBCA, 47143-9 #### [facility] ([id number]) [address], [address] [place] [address] MCV (RBC) [Entitic vol] 92 fL Normal 80-100 [facility] Comment on above: Performed By: #### Mariam CLEARY, 76516-4, THYR, CBCA, 25297-3 #### [facility] ([id number]) [address], [address] [place] [address] Monocytes (Bld) [#/Vol] 0.3 10*3/uL Normal 0-0.9 [facility] Comment on above: Performed By: #### Mariam CLEARY, 71472-0, THYR, CBCA, 14555-4 #### [facility] ([id number]) [address], [address] [place] [address] Monocytes/100 WBC (Bld) 7.0 % Normal [facility] Comment on above: Performed By: #### Mariam CLEARY, 56126-5, THYR, CBCA, 09215-4 #### [facility] ([id number]) [address], [address] [place] [address] Neutrophils/100 WBC (Bld) 67.7 % Normal [facility] Comment on above: Performed By: #### Mariam CLEARY, 99326-8, THYR, CBCA, 79525-7 #### [facility] ([id number]) [address] [place] [address] Platelet mean volume (Bld) [Entitic vol] 8.7 fL Normal 7-12 [facility] Comment on above: Performed By: #### C MP, 73021-5, THYR, CBCA, 17853-4 #### [facility] ([id number]) [address] [address] [place] [address] Platelets (Bld) [#/Vol] 186 10*3/uL Normal 150-450 [facility] Comment on above: Performed By: #### C MP, 96760-9, THYR, CBCA, 75581-8 #### [facility] ([id number]) [address] [address] [place] [address] RBC COUNT 4.67 X10E12/L Normal 3.80-5.20 [facility] Comment on above: Performed By: #### C EVIN, 26186-8, THYR, CBCA, 82987-5 #### [facility] ([id number]) [address] [address] [place] [address] WBC (Bld) [#/Vol] 3.7 10*3/uL Low 4.0-11.0 [facility] Comment on above: Performed By: #### C MP, 25678-1, THYR, CBCA, 41597-2 #### [facility] ([id number]) [address], [address] [place] [address] COMPREHENSIVE METABOLIC PANE Mika 11-30-2023 Albumin [Mass/Vol] 4.4 g/dL Normal 3.2-5.3 [facility] Comment on above: Performed By: #### C MP, 82501-8, THYR, CBCA, 89371-4 #### [facility] ([id number]) [address], [address] [place] [address] ALP [Catalytic activity/Vol] 65 U/L Normal 39-130 [facility] Comment on above: Performed By: #### C MP, 09965-9, THYR, CBCA, 31853-7 #### [facility] ([id number]) [address], [address] [place] [address] ALT [Catalytic activity/Vol] 59 U/L High 0-31 [facility] Comment on above: Performed By: #### C MP, 65322-1, THYR, CBCA, 50320-9 #### [facility] ([id number]) [address], [address] [place] [address] Anion gap [Moles/Vol] 6 mmol/L Normal 5-15 [facility] Comment on above: Performed By: #### C MP, 47561-2, THYR, CBCA, 87730-8 #### [facility] ([id number]) [address], [address] [place] [address] AST [Catalytic activity/Vol] 31 U/L Normal 0-41 [facility] Comment on above: Performed By: #### C MP, 21746-8, THYR, CBCA, 12739-6 #### [facility] ([id number]) [address], [address] [place] [address] Bilirubin [Mass/Vol] 0.8 mg/dL Normal 0.3-1.2 [facility] Comment on above: Performed By: #### C MP, 00674-6, THYR, CBCA, 02837-4 #### [facility] ([id number]) [address], [address] [place] [address] Calcium [Mass/Vol] 9.1 mg/dL Normal 8.5-10.5 [facility] Comment on above: Performed By: #### C MP, 20962-9, THYR, CBCA, 45455-8 #### [facility] ([id number]) [address], [address] [place] [address] Chloride [Moles/Vol] 103 mmol/L Normal 98-109 [facility] Comment on above: Performed By: #### C EVIN, 78450-5, THYR, CBCA, 50465-5 #### [facility] ([id number]) [address], [address] [place] [address] CO2 [Moles/Vol] 28 mmol/L Normal 22-32 [facility] Comment on above: Performed By: #### C EVIN, 00782-5, THYR, CBCA, 17981-2 #### [facility] ([id number]) [address], [address] [place] [address] Creatinine [Mass/Vol] 0.86 mg/dL Normal 0.40-1.00 [facility] Comment on above: Result Comment: METH OD TRACEABLE TO IDMS STANDARD Performed By: #### C EVIN, 70757-0, THYR, CBCA, 30369-0 #### [facility] ([id number]) [address], [address] [place] [address] GFR/1.73 sq M.predicted among non-blacks MDRD (S/P/Bld) [Vol rate/Area] 89 mL/min/{1.73_m2} Normal >59 [facility] Comment on above: Result Comment: Reported eGFR is based on the CKD-EPI 2020 equation that does not use a race coefficient. Performed By: #### C EVIN, 47322-8, THYR, CBCA, 39420-8 #### [facility] ([id number]) [address], [address] [place] [address] Glucose [Mass/Vol] 97 mg/dL Normal 65-99 [facility] Comment on above: Performed By: #### C MP, 48413-3, THYR, CBCA, 15784-1 #### [facility] ([id number]) [address], [address] [place] [address] Potassium [Moles/Vol] 3.8 mmol/L Normal 3.5-5.0 [facility] Comment on above: Performed By: #### C EVIN, 46498-5, THYR, CBCA, 33697-6 #### [facility] ([id number]) [address], [address] [place] [address] Protein [Mass/Vol] 6.6 g/dL Normal 6.0-8.0 [facility] Comment on above: Performed By: #### C EVIN, 36182-8, THYR, CBCA, 30302-6 #### [facility] ([id number]) [address], [address] [place] [address] Sodium [Moles/Vol] 137 mmol/L Normal 134-146 [facility] Comment on above: Performed By: #### C EVIN, 82426-2, THYR, CBCA, 85783-5 #### [facility] ([id number]) [address], [address] [place] [address] Urea nitrogen [Mass/Vol] 9 mg/dL Normal 5-23 [facility] Comment on above: Performed By: #### C EVIN, 05411-0, THYR, CBCA, 02661-3 #### [facility] ([id number]) [address], [address] [place] [address] Lipid 1996 panelon 4 Cholesterol [Mass/Vol] 236 mg/dL High 150-200 [facility] Comment on above: Performed By: #### C MP, 22200-4, THYR, CBCA, 69472-2 #### [facility] ([id number]) [address], [address] [place] [address] Cholesterol in HDL [Mass/Vol] 48 mg/dL Normal >39 [facility] Comment on above: Result Comment: HDL <40 mg/dL - High Risk HDL > or = 40mg/dL- Desirable HDL >60 mg/dL - Negative Risk Performed By: #### Mariam CLEARY, 08879-6, THYR, CBCA, 77882-0 #### [facility] ([id number]) [address], [address] [place] [address] Cholesterol in LDL [Mass/Vol] 124 mg/dL Normal <130 [facility] Comment on above: Result Comment: LDL <100 mg/dL - Desirable LDL >160 mg/dL - High Risk Performed By: #### C EVIN, 68658-8, THYR, CBCA, 33372-2 #### [facility] ([id number]) [address], [address] [place] [address] Cholesterol in VLDL [Mass/Vol] 64 mg/dL High 0-30 [facility] Comment on above: Performed By: #### C EVIN, 75679-4, THYR, CBCA, 73551-4 #### [facility] ([id number]) [address], [address] [place] [address] CHOLESTEROL:HDL 4.9 Normal 1.0-5.0 [facility] Comment on above: Performed By: #### C EVIN, 76420-6, THYR, CBCA, 92106-0 #### [facility] ([id number]) [address], [address] [place] [address] Triglyceride [Mass/Vol] 318 mg/dL High 27-150 [facility] Comment on above: Performed By: #### C EVIN, 27379-1, THYR, CBCA, 51098-8 #### [facility] ([id number]) [address], [address] [place] [address] THYROID PROFILEon 11-30-2023 Free T4 [Mass/Vol] 0.62 ng/dL Normal 0.61-1.60 [facility] Comment on above: Performed By: #### C EVIN, 66031-0, THYR, CBCA, 88603-4 #### [facility] ([id number]) [address], [address] [place] [address] TSH 0.97 uIU/mL Normal 0.49-4.67 [facility] Comment on above: Performed By: #### C EVIN, 80878-5, THYR, CBCA, 31397-6 #### [facility] ([id number]) [address], [address] [place] [address] Vitamin D+Metabolites [Mass/ Vol]on 11-30-2023 VITAMIN D 25 HYD TOT 25.5 ng/mL Low 30-100 [facility] Comment on above: Result Comment: Vitamin D status 25 [place] Vitamin D Deficiency <20 ng/mL Insufficiency 20-29 ng/mL Sufficiency 30-100 ng/mL Toxicity >100 ng/mL NOTE: A pediatric reference range has not been established by the still pump operator of this kit. The [place] [employer] recommends a Vitamin D level of = or >20ng/mL in infants and children. Performed By: #### C EVIN, 50155-9, THYR, CBCA, 13412-9 #### [facility] ([id number]) [address], [address] [place] [address] Covid-19 PCR (CVDTB)on 09-11 SARS-CoV-2 (COVID-19) RNA MEGAN+probe Ql (Unsp spec) Not detected Normal NOT DETECTED [facility] Comment on above: Result Comment: This test is not yet approved or cleared by the [place] FDA. When there are no FDA-approved or cleared tests available, and other criteria are met, FDA can make tests available under an emergency access mechanism called an Emergency Use Authorization (EUA). The EUA for this test is supported by the Software Firmware Engineer of Health and Human Service's (HHS's) declaration [...] consistent with SARS-CoV-2. Performed By: #### C [facility] #### [facility] [address] [place] [address] Dr. Adis Warren Covid-19 PCR ([facility])on 09-11 SARS-CoV-2 (COVID-19) RNA MEGAN+probe Ql (Unsp spec) Not detected Normal NOT DETECTED [facility] Comment on above: Result Comment: This test is not yet approved or cleared by the [place] FDA. When there are no FDA-approved or cleared tests available, and other criteria are met, FDA can make tests available under an emergency access mechanism called an Emergency Use Authorization (EUA). The EUA for this test is supported by the Grant of Health and Human Service's (HHS's) declaration [...] consistent with SARS-CoV-2. Performed By: #### C [facility] #### [facility] [address] [place] [address] Dr. Adis Warren OBSOLETEon 07-04-2021 OBSOLETE Refill (NEUWIL) MARITA MESSINA ([id number]) 1985 F Date Time Provider Department 07/04/21 [...] Encounter Status:Closed by RAYMOND MEDINA on 07/05/21 [facility] OBSOLETEon 05-27-2021 OBSOLETE Refill ([facility]) MARITA MESSINA ([id number]) 1985 F Date Time Provider Department 05/27/21 [...] Encounter Status:Closed by RAYMOND MEDINA on 05/30/21 [facility] OBSOLETEon 04-26-2021 OBSOLETE Refill ([facility]) MARITA MESSINA ([id number]) 1985 F Date Time Provider Department 04/26/21 RAYMOND MEDINA [facility] During your visit today, we recorded the following information about you: Ashtyn Perez Ma 04/26/2021 10:11 AM Signed Please see pended medication. Pharmacy linked. Last ordered 01/07/2021. Ashtyn Shomasha Bazzi Allergies As of Date: 04/26/2021 (No Known [...] Encounter Status:Closed by RAYMOND MEDINA on 04/27/21 [facility] Coding Summary.on 05-31-2019 Coding Summary. CODING DATE: 05/31/2019 [facility] STATUS: Home (Routine DC) PAYOR: Medicaid EAPG [...] Andres Date Saved: 05/31/2019 06:25 am Normal [facility] Gynecology Office/Clinic Not freddie 05-20-2019 [...] and next steps Ordered: Colposcopy with biopsy 18116 Pathology Tissue Exam Pathology Tissue Exam Follow-up With When Contact Information She BINGHAM CNP In 1 year [email or web address] Additional Instructions: She BINGHAM CNP Only if needed [email or web address] Additional Instructions: Problem List/Past Medical History Ongoing [...] 2: Father and Grandparent. Hyperlipidemia: Father. Normal [facility] Comment on above: Result Comment: Elec tronically Signed By: She BINGHAM CNP\Date and Time Signed: 05/20/19 14:48 EDT Coding Summary.on 05-06-2019 Coding Summary. CODING DATE: 05/06/2019 FINAL [facility] STATUS: Home (Routine DC) PAYOR: Medicaid [...] CphT Date Saved: 05/06/2019 09:14 am Normal [facility] PAP [id number] 05-05-2019 Cytology report Cyto stain Doc (Cvx/Vag) Note Abnormal [facility] Comment on above: Result Comment: TEST S RESULT FLAG UNITS REF RANGE LAB Clinician Provided Cytology Information Source.............[employer] Other..............IUD No. of containers..01 ThinPrep Vial DIAGNOSIS: [A] 01 EPITHELIAL CELL ABNORMALITY. ATYPICAL SQUAMOUS CELLS OF UNDETERMINED SIGNIFICANCE (ASC-US). 01 Satisfactory for evaluation. Endocervical and/or squamous metaplastic cells (endocervical component) are present. 01 Maricarmen Stovall, Life [employer] (ASCP) 01 Jennifer Lopes MD, Pathologist 01 [...] Low,>-Panic High,A-Abnormal,AA-Critical Abnormal Performed at: 01 [facility] [employer] [place] [place] [address] Soraya Cabrera MD, Performed By: #### 1 [id number], [id number] #### [facility] [address] [place] [address] HPV 16+18+31+33+35+39+4 5+51+52+56+58+59+68 DNA Probe+sig amp Ql (Cvx) Positive Abnormal Negative [facility] Comment on above: Result Comment: This high-risk HPV test detects thirteen high- risk types (16/18/31/33/35/39/45/51/52/56/58/59/68) without differentiation. Performed at: [facility] [employer] [place], [place] [id number] MD Rick Lira Performed at: =G [facility] [place] [id number] MD Rick Lira Performed By: #### 1 [id number], [id number] #### [facility] [address] [place] [address] Physician Read PAPon 019 Pathologist review Noe (Unsp spec) [Interp] Note [facility] Comment on above: Result Comment: TEST S RESULT FLAG UNITS REF RANGE LAB Physician Read Pap Note 01 Performed FLAG LEGEND: L-Low Normal,H-High Normal,LL-Alert Low,HH-Alert High <-Panic Low,>-Panic High,A-Abnormal,AA-Critical Abnormal Performed at: 01 [facility] [address] [address] Soraya Cabrera MD, Performed at: [facility] [address] [id number] MD Rick Lira Performed By: #### 1 [id number], [id number] #### [facility] [address] [place] [address] Gynecology Office/Clinic Not freddie 04-29-2019 Gynecology Office/Clinic [...] results Ordered: Office Visit Level 3 Est 88769 PAP [id number] w/HPV HR US Pelvis Non-OB Complete 2. 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 Hyperlipidemia: Father. [facility] Comment on above: Result Comment: Elec tronically Signed By: She BINGHAM CNP\Date and Time Signed: 04/29/19 11:36 EDT PAP [id number] 04-29-2019 Gynecological Body Site [facility] Comment on above: Performed By: #### 1 [id number] #### [facility] [address] [place] [address] Other Patient Information IUD [facility] Comment on above: Performed By: #### 1 [id number] #### [facility] [address] [place] [address] Vital Signs Date Time Vital Sign Value Performing Clinician Facility 09-15-2024 11:03-0500 Body height 157.5 cm Dorcas Cummingsgwen RN DOCUMENTATION SPECIALIST Work Phone: [facility] 09-15-2024 11:03-0500 Body mass index (BMI) [Ratio] 40.57 kg/m2 Dorcas Cummingswgen RN DOCUMENTATION SPECIALIST Work Phone: [facility] 09-15-2024 11:03-0500 Body weight 100.61 kg Dorcas Kathryn RN DOCUMENTATION SPECIALIST Work Phone: [facility] 09-15-2024 11:03-0500 Diastolic blood pressure 80 mm[Hg] Dorcas Kathryn RN DOCUMENTATION SPECIALIST Work Phone: [facility] 09-15-2024 11:03-0500 Heart rate 104 /min Dorcas Kathryn RN DOCUMENTATION SPECIALIST Work Phone: [facility] 09-15-2024 11:03-0500 SaO2% (BldA) [Mass fraction] 97 % Dorcas Peralta RN DOCUMENTATION SPECIALIST Work Phone: [facility] 09-15-2024 11:03-0500 Systolic blood pressure 116 mm[Hg] Dorcas Peralta RN DOCUMENTATION SPECIALIST Work Phone: [facility] 08-04-2024 15:35-0500 Body height 157.5 cm Sherie Maria DPM Work Phone: [facility] 08-04-2024 15:35-0500 Body mass index (BMI) [Ratio] 40.6 kg/m2 Sherie Maria DPM Work Phone: [facility] 08-04-2024 15:35-0500 Body weight 100.7 kg Sherie Maria DPM Work Phone: [facility] 06-16-2024 10:54-0400 Body height 157.5 cm Dorcas Peralta RN DOCUMENTATION SPECIALIST Work Phone: [facility] 06-16-2024 10:54-0400 Body mass index (BMI) [Ratio] 39.36 kg/m2 Dorcas Peralta RN DOCUMENTATION SPECIALIST Work Phone: [facility] 06-16-2024 10:54-0400 Body weight 97.61 kg Dorcas Peralta RN DOCUMENTATION SPECIALIST Work Phone: [facility] 06-16-2024 10:54-0400 Diastolic blood pressure 76 mm[Hg] Dorcas Peralta RN DOCUMENTATION SPECIALIST Work Phone: [facility] 06-16-2024 10:54-0400 Heart rate 98 /min Dorcas Peralta RN DOCUMENTATION SPECIALIST Work Phone: [facility] 06-16-2024 10:54-0400 SaO2% (BldA) [Mass fraction] 97 % Dorcas Peralta RN DOCUMENTATION SPECIALIST Work Phone: [facility] 06-16-2024 10:54-0400 Systolic blood pressure 120 mm[Hg] Dorcas Peralta RN DOCUMENTATION SPECIALIST Work Phone: [facility] 05-23-2024 10:24-0400 Body mass index (BMI) [Ratio] 38.99 kg/m2 Dorcas Peralta RN DOCUMENTATION SPECIALIST Work Phone: [facility] 05-23-2024 10:24-0400 Body weight 96.71 kg Dorcas Peralta RN DOCUMENTATION SPECIALIST Work Phone: [facility] 05-23-2024 10:24-0400 Diastolic blood pressure 72 mm[Hg] Dorcas Peralta RN DOCUMENTATION SPECIALIST Work Phone: [facility] 05-23-2024 10:24-0400 Heart rate 93 /min Dorcas Peralta RN DOCUMENTATION SPECIALIST Work Phone: [facility] 05-23-2024 10:24-0400 SaO2% (BldA) [Mass fraction] 99 % Dorcas Peralta RN DOCUMENTATION SPECIALIST Work Phone: [facility] 05-23-2024 10:24-0400 Systolic blood pressure 122 mm[Hg] Dorcas Peralta RN DOCUMENTATION SPECIALIST Work Phone: [facility] 05-14-2024 11:30-0400 Body height 157.5 cm Dorcas Peralta RN DOCUMENTATION SPECIALIST Work Phone: [facility] 05-14-2024 11:30-0400 Body mass index (BMI) [Ratio] 39.03 kg/m2 Dorcas Peralta RN DOCUMENTATION SPECIALIST Work Phone: [facility] 05-14-2024 11:30-0400 Body weight 96.8 kg Dorcas Peralta RN DOCUMENTATION SPECIALIST Work Phone: [facility] 05-14-2024 11:30-0400 Diastolic blood pressure 68 mm[Hg] Dorcas Peralta RN DOCUMENTATION SPECIALIST Work Phone: [facility] 05-14-2024 11:30-0400 Heart rate 109 /min Dorcas Peralta RN DOCUMENTATION SPECIALIST Work Phone: [facility] 05-14-2024 11:30-0400 SaO2% (BldA) [Mass fraction] 98 % Dorcas Peralta RN DOCUMENTATION SPECIALIST Work Phone: [facility] 05-14-2024 11:30-0400 Systolic blood pressure 110 mm[Hg] Dorcas Peralta RN DOCUMENTATION SPECIALIST Work Phone: [facility] 11-10-2019 14:27-0500 BMI (Body Mass Index) 35.43 kg/m2 [place] 11-10-2019 14:27-0500 Body Temperature 97.59 [degF] Bradley Simmons [facility] 11-10-2019 14:27-0500 Body weight 90.72 kg Bradley Simmons [facility] , [place] 11-10-2019 14:27-0500 BP Diastolic 65 mm[Hg] Bradley Simmons [facility] [place] 11-10-2019 14:27-0500 BP Systolic 102 mm[Hg] Bradley Simmons [facility] , [place] 11-10-2019 14:27-0500 Height 160 cm Bradley Simmons [facility] [place] 11-10-2019 14:27-0500 Pulse Oximetry 99 % [facility] [place] Encounters Encounter Date Encounter Type Care Provider Facility Start: 09-22-2024 End: 09-22-2024 Orders Only Dorcas Peralta RN DOCUMENTATION SPECIALIST Work Phone: [facility] Comment on above: Obstructive sleep ap deann syndrome Start: 09-20-2024 End: 09-22-2024 Refill Jo-Ann Carlson MD Work Phone: [facility] Comment on above: Tremor (Primary Dx) Start: 09-15-2024 End: 09-15-2024 Bamboo flowsheet Dorcas Peralta RN DOCUMENTATION SPECIALIST Work Phone: [facility] Start: 09-15-2024 End: 09-15-2024 Bamboo flowsheet Dorcas Peralta RN DOCUMENTATION SPECIALIST Work Phone: [facility] Start: 09-15-2024 End: 09-15-2024 ambulatory DORCAS PERALTA Not Available Start: 09-15-2024 End: 09-15-2024 Office outpatient visit 25 minutes Dorcas Peralta RN DOCUMENTATION SPECIALIST Work Phone: [facility] Comment on above: Morbid (severe) obes ity due to excess calories (CMS/HCC) (Primary Dx); BOGDAN (obstructive sleep apnea); Hepatic steatosis; Mixed hyperlipidemia (CMS/HCC); Elevated liver enzymes Start: 09-01-2024 End: 09-01-2024 ambulatory Sana Radford MD Facility:[facility] Start: 08-13-2024 End: 08-13-2024 ambulatory Caitlny Sparrow MD Facility:[facility] Start: 08-04-2024 End: 08-04-2024 Office outpatient new 30 minutes Sherie Maria DPM Work Phone: [facility] Comment on above: Tinea pedis of both feet (Primary Dx); Chronic dermatitis of feet; Dermatophytosis of nail; Pain around toenail, right foot; Pain around toenail, left foot Start: 08-04-2024 End: 08-04-2024 ambulatory SHERIE MARIA Not Available Start: 08-04-2024 End: 08-04-2024 Bamboo flowsheet Sherie Maria DPM Work Phone: [facility] Start: 08-04-2024 End: 08-04-2024 Bamboo flowsheet Sherie Maria DPM Work Phone: [facility] Start: 07-04-2024 End: 07-04-2024 ambulatory [facility] Start: 06-16-2024 End: 06-16-2024 Bamboo flowsheet Dorcas Peralta RN DOCUMENTATION SPECIALIST Work Phone: [facility] Start: 06-16-2024 End: 06-16-2024 Bamboo flowsheet Dorcas Peralta RN DOCUMENTATION SPECIALIST Work Phone: [facility] Start: 06-16-2024 [...] Available Start: 05-26-2024 End: 05-29-2024 Refill Nehal Alvarado LPN Work Phone: [facility] Comment on above: Gastroesophageal ref lux disease without esophagitis Rash (Primary Dx); Obesity, Class II, BMI 35-39.9 Start: 05-23-2024 End: 05-23-2024 Office outpatient visit 25 minutes Dorcas Peralta RN DOCUMENTATION SPECIALIST Work Phone: [facility] Comment on above: Folliculitis (Primar y Dx); Obesity, Class II, BMI 35-39.9; Morbid (severe) obesity due to excess calories ([facility]); Gastro-esophageal reflux disease without esophagitis; Body mass index (BMI) 39.0-39.9, adult; Bipolar disorder, unspecified ([facility]) Start: 05-23-2024 End: 05-23-2024 ambulatory DORCAS PERALTA Not Available Start: 05-22-2024 End: 05-22-2024 Orders Only Dorcas Peralta RN DOCUMENTATION SPECIALIST Work Phone: [facility] Comment on above: Dermatitis (Primary Dx) Start: 05-19-2024 End: 05-19-2024 ambulatory [facility] Start: 05-19-2024 End: 05-19-2024 [facility] Start: 05-14-2024 End: 05-14-2024 Bamboo flowsheet Dorcas Peralta RN DOCUMENTATION SPECIALIST Work Phone: [facility] Start: 05-14-2024 End: 05-14-2024 Bamboo flowsheet Dorcas Peralta RN DOCUMENTATION SPECIALIST Work Phone: [facility] Start: 05-14-2024 End: 05-14-2024 Office outpatient new 45 minutes Dorcas Peralta RN DOCUMENTATION SPECIALIST Work Phone: [facility] Comment on above: Obesity, Class II, B ME 35-39.9 (Primary Dx); Encounter to establish care Start: 05-14-2024 End: 05-14-2024 ambulatory DORCAS PERALTA Not Available Start: 05-05-2024 End: 05-05-2024 ambulatory [facility] Start: 03-24-2024 End: 03-24-2024 ambulatory CAITLYN Griffiths KYARA [facility] Start: 03-23-2024 End: 03-24-2024 Emergency department patient visit LUIZA ORDOÑEZ [facility] Start: 03-23-2024 End: 03-23-2024 Emergency department patient visit CAITLYN Griffiths KYARA [facility] Start: 03-10-2024 End: 04-10-2024 ambulatory [facility] Start: 03-08-2024 End: 03-08-2024 Emergency department patient visit CAITLYN Griffiths KYARA [facility] Start: 03-03-2024 End: 03-03-2024 ambulatory Caitlyn Sparrow MD Facility:[facility] Start: 02-29-2024 End: 02-29-2024 ambulatory CAITLYN Griffiths [facility] Start: 02-18-2024 End: 02-18-2024 ambulatory Caitlyn Sparrow MD Facility:[facility] Start: 02-11-2024 End: 03-10-2024 ambulatory [facility] Start: 01-28-2024 End: 01-28-2024 ambulatory Caitlyn Sparrow MD Facility:[facility] Start: 01-23-2024 End: 02-09-2024 ambulatory [facility] Start: 11-30-2023 End: 11-30-2023 ambulatory [facility] Start: 11-30-2023 Encounter for genera l adult medical examination without abnormal findings [facility] Start: 08-09-2023 Refill Raymond Pierre ph, MD Work Phone: Neurology Comment on above: Refill Request Start: 03-09-2023 Refill Raymond Pierre ph, MD Work Phone: Neurology Comment on above: Refill Request Start: 12-15-[address] MUNIRA DEAL Facili ty:[facility] Start: 07-11-2022 End: 07-12-[address] MUNIRA DEAL Facility:[facility] Start: 05-22-2022 Get Medical Advice Raymond Medina MD Work Phone: Neurology Comment on above: Med refill Start: 03-08-2022 End: 03-09-[address] CAITLYN SPARROW Facility:[facility] Start: 02-23-2022 End: 02-23-2022 ambulatory Karel Elaine Other [facility] Other Start: 02-23-2022 Telephone encounter Karel Elaine [facility] Start: 01-09-2022 Refill Raymond Pierre ph, MD Work Phone: Neurology Comment on above: Refill Request Start: 01-04-2022 End: 01-04-2022 ambulatory Karel Elaine Other [facility] Other Start: 01-04-2022 Telephone encounter Karel Elaine [facility] Start: 12-12-2021 End: 12-12-2021 ambulatory Karel Elaine Other [facility] Other Start: 12-12-2021 Telephone encounter Karel Elaine [facility] Start: 11-30-2021 End: 12-01-[address] MUNIRA DEAL Facility:[facility] Start: 11-16-2021 End: 11-16-2021 ambulatory Karel Elaine Other [facility] Other Start: 11-16-2021 Telephone encounter Karel Elaine [facility] Start: 10-11-2021 Encounter for preprocedural laboratory examination DR MUNIRA DEAL [facility] Start: 10-11-2021 End: 10-11-[address] [...] 08-03-2021 End: 08-03-2021 ambulatory Karel Elaine Other [facility] Other Start: 08-03-2021 Telephone encounter Karel Elaine [facility] Start: 07-28-2021 End: 07-28-2021 ambulatory Karel Elaine Other [facility] Other Start: 07-28-2021 Telephone encounter Karel Elaine [facility] Start: 11-10-2019 End: 11-11-2019 Patient encounter [facility] Start: 11-10-2019 End: 11-10-2019 Subsequent hospital visit by physician Bradley Simmons Work Phone: [facility] Comment on above: Arrived Procedures Date Procedure Procedure Detail Performing Clinician Start: 10-03-2021 Adult depression screening assessment Raymond Medina MD Work Phone: Plan of Treatment Date Care Activity Detail Author Start: 2036 Shingles Vaccine (1 of 2) Shingles Vaccine (1 of 2) [facility], [place] Start: 06-10-2025 Influenza vaccination Influenza Vacc ine (#1) [facility] Comment on above: Postponed from 05/11 (Patient Refused) Start: 12-15-2024 End: 12-15-2024 Patient encounter procedure 12/15/2024 11:00 AM EDT Office Visit [facility] [address] [place] [address] Dorcas Peralta NP [address] [place] [address] [facility] Start: 11-08-2024 Medicare Annual Well ness (AWV) Medicare Annual Wellness (AWV) [facility] Start: 10-27-2024 End: 10-27-2024 Patient encounter procedure 10/27/2024 4:15 PM EST Office Visit [facility] [address] [place] [address] Sherie Maria, JOSE [address] [place] [address] [facility] Start: 09-15-2024 End: 09-15-2024 Patient encounter procedure 09/15/2024 11:00 AM EST Office Visit [facility] [address] [facility] [place] [phone] Dorcas Peralta NP [address] [facility] [place] [address] [facility] Start: 08-04-2024 End: 08-04-2024 Patient encounter procedure 08/04/2024 3:30 PM EST Office Visit [facility] [address] [place] [address] Sherie Maria DPM [address] [place] [address] Arrived [facility] Comment on above: Arrived Start: 06-16-2024 End: 06-16-2024 Patient encounter procedure [facility] Comment on above: Arrived Start: 05-14-2024 End: 05-14-2024 Patient encounter procedure 05/14/2024 11:30 AM EDT Office Visit [facility] [address] [facility] [place] [phone] Dorcas Peralta NP [address] [facility] [place] [address] Arrived [facility] Comment on above: Arrived Start: 05-11-2024 Influenza vaccination Influenza Vacc ine (#1) [facility] Start: 05-11-2023 Influenza vaccination C [facility] Start: 10-03-2022 Adult depression screening assessment DEPRESSION SCREENING [facility] Start: 09-10-2022 DEPRESSION ASSESSMENT DEPRESSION ASS ESSMENT [facility] Start: 05-11-2022 Influenza vaccination C [facility] Start: 03-29-2020 End: 03-29-2020 Appointment 03/29/2020 Appointment General Surgery Bradley Simmons MD [facility] [place] [address] [phone] [facility] Start: 05-11-2019 Influenza vaccination Flu vaccine (# 1) [place] Start: 2016 HPV TESTING HPV TESTING [facility] Start: 2016 Screening for malign ant neoplasm of cervix [facility] Start: 2007 Cervical cancer screen Cervical canc er screen [place] Start: 2007 PAP TESTING PAP TESTING [facility] Start: 2007 Screening for malign ant neoplasm of cervix [facility] Start: 2005 Urine microalbumin profile DTAP,TDAP,TD (1 - Tdap) [facility] Start: 2004 HEPATITIS C SCREENING HEPATITIS C [facility] Start: 2004 Hepatitis C screening Hepatitis C [facility] Start: 2004 HIV SCREENING HIV SCREENING [facility] Start: 2004 HIV screening HIV Screening [facility] Start: 2001 HIV screen HIV screen [place], [place] Start: 12-25-1997 Urine microalbumin profile DTaP,Tdap,Td Vaccine (6 - Tdap) [facility] Start: 1997 DTaP/Tdap/Td vaccine (1 - Tdap) DTaP/Tdap/Td vaccine (1 - Tdap) [place] Start: 1991 COVID-19 VACCINE (1) COVID-19 VACCIN E (1) [facility] Start: 1987 Varicella vaccine (1 of 2 - 2-dose childhood series) Varicella vaccine (1 of 2 - 2-dose childhood series) [place] Start: 01-14-1987 COVID-19 VACCINE (#1) COVID-19 VACCI NE (#1) [facility] Start: 1986 HEPATITIS B (1 of 3 - 3-dose series) HEPATITIS B (1 of 3 - 3-dose series) [facility] Start: 1986 Medicare Annual Well ness (AWV) Medicare Annual Wellness (AWV) [facility] Immunizations Immunization Date Immunization Notes Care Provider Fa kamron 05-15-2023 Influenza, injectabl e, Madin Renetta Canine Kidney, quadrivalent with preservative Dorcas Kampfer RN DOCUMENTATION SPECIALIST Work Phone: [facility] 05-15-2023 influenza virus vacc ine, unspecified formulation Dorcas Kampfer RN DOCUMENTATION SPECIALIST Work Phone: [facility] 07-13-2022 Influenza, injectabl e, Madin [place] Canine Kidney, preservative free, quadrivalent Dorcas Kampfer RN DOCUMENTATION SPECIALIST Work Phone: [facility] 09-13-2021 influenza, injectabl e, quadrivalent, preservative free Dorcas Kampfer RN DOCUMENTATION SPECIALIST Work Phone: [facility] 08-22-2019 influenza, injectabl e, quadrivalent, contains preservative Dorcas Kampfer RN DOCUMENTATION SPECIALIST Work Phone: [facility] 08-22-2019 influenza virus vacc ine, unspecified formulation Raymond Mednia MD Work Phone: [facility] 05-25-1998 hepatitis B vaccine, pediatric or pediatric/adolescent dosage Dorcas Kampfer RN DOCUMENTATION SPECIALIST Work Phone: [facility] 12-24-1997 hepatitis B vaccine, pediatric or pediatric/adolescent dosage Dorcas Kampfer RN DOCUMENTATION SPECIALIST Work Phone: [facility] 12-24-1997 TD(adult) unspecifie d formulation Dorcas Kampfer RN DOCUMENTATION SPECIALIST Work Phone: [facility] 11-19-1997 hepatitis B vaccine, pediatric or pediatric/adolescent dosage Dorcas Kampfer RN DOCUMENTATION SPECIALIST Work Phone: [facility] 11-19-1997 measles, mumps and rubella virus vaccine Dorcasdwight Cummingspfer RN DOCUMENTATION SPECIALIST Work Phone: [facility] 10-26-1987 diphtheria, tetanus toxoids and pertussis vaccine Dorcas Kampfer RN DOCUMENTATION SPECIALIST Work Phone: [facility] 10-26-1987 measles, mumps and rubella virus vaccine Dorcas Kampfer RN DOCUMENTATION SPECIALIST Work Phone: [facility] 10-26-1987 trivalent poliovirus vaccine, live, oral Dorcas Kampfer RN DOCUMENTATION SPECIALIST Work Phone: [facility] 02-17-1987 diphtheria, tetanus toxoids and pertussis vaccine Dorcas Kampfer RN DOCUMENTATION SPECIALIST Work Phone: [facility] 02-17-1987 trivalent poliovirus vaccine, live, oral Dorcas Kampfer RN DOCUMENTATION SPECIALIST Work Phone: [facility] 1986 diphtheria, tetanus toxoids and pertussis vaccine Dorcas Kampfer RN DOCUMENTATION SPECIALIST Work Phone: [facility] 1986 trivalent poliovirus vaccine, live, oral Dorcas Kampfer RN DOCUMENTATION SPECIALIST Work Phone: [facility] 1986 diphtheria, tetanus toxoids and pertussis vaccine Dorcas Kampfer RN DOCUMENTATION SPECIALIST Work Phone: [facility] 1986 trivalent poliovirus vaccine, live, oral Dorcas Kampfer RN DOCUMENTATION SPECIALIST Work Phone: [facility] Payers Date Payer Category Payer Medicare [id number] 2019 Medicaid MEDICAID [facility] MEDICAID [id number] 2019-Present [phone] [address] [place] [address] Medicaid [id number] .[id number] 2019 Medicaid [id number] [id number] .[id number] 2019 Medicare MEDICARE MEDICAR E A AND B [id number] 2019-Present [phone] [address] [address] [place] [address] Medicare [id number] [id number] .[id number] 2019 Medicare [id number] 1.13.159.2.7.3 .[id number] 2014 Medicaid MEDICAID [facility] DEPT OF JOB xxxxxxxxxxxx 2014-Present [phone] [address] [place] [address] xxxxxxxxxxxx [id number] .136802.315 2014 Medicare MEDICARE MEDICAR E PART A AND B xxxxxxxxxxx 2014-Present [phone] [place] [address] xxxxxxxxxxx [id number] .[id number] 1986 Unknown [id number] 2.16.840.1.083453.3.579.2.177 1986 Unknown [id number] 2.16.840.1.511930.3.579.2.593 1986 Unknown [id number] 2.16.840.1.437556.3.579.2.593 1986 Unknown [id number] 2.16.840.1.799986.3.579.2.593 1986 Unknown [id number] 2.16.840.1.429403.3.579.2.593 1986 Unknown [id number] 2.16.840.1.297376.3.579.2.593 1986 Unknown [id number] 2.16.840.1.134772.3.579.2.593 1986 Unknown [id number] 2.16.840.1.076695.3.579.2.593 1986 Unknown [id number] 2.16.840.1.379351.3.579.2.593 1986 Unknown [id number] 2.16.840.1.050555.3.579.2.593 1986 Unknown [id number] 2.16.840.1.727886.3.579.2.196 1986 Unknown [id number] 2.16.840.1.803849.3.579.2.196 1986 Unknown [id number] 2.16.840.1.075097.3.579.2.196 1986 Unknown [id number] 2.16.840.1.682432.3.579.2.196 1986 Unknown [id number] 2.16.840.1.874649.3.579.2.196 1986 Unknown [id number] 2.16.840.1.571769.3.579.2.196 1986 Unknown [id number] 2.16.840.1.024040.3.579.2.125 9 1986 Unknown [id number] 2.16.840.1.498463.3.579.2.125 9 1986 Unknown [id number] 2.16.840.1.165653.3.579.2.125 9 1986 Unknown [id number] 2.16.840.1.222842.3.579.2.125 9 1986 Unknown [id number] 2.16.840.1.997101.3.579.2.125 9 1986 Unknown [id number] 2.16.840.1.199713.3.579.2.128 6 1986 Unknown [id number] 2.16.840.1.191104.3.579.2.128 6 1986 Unknown [id number] 2.16.840.1.906219.3.579.2.128 6 1986 Unknown [id number] 2.16.840.1.148245.3.579.2.128 6 1986 Unknown [id number] 2.16.840.1.664596.3.579.2.128 6 1986 Unknown [id number] 2.16.840.1.940286.3.579.2.128 6 1986 Unknown [id number] 2.16.840.1.667327.3.579.2.128 6 1986 Unknown [id number] 2.16.840.1.175678.3.579.2.128 6 1986 Unknown [id number] 2.16.840.1.515242.3.579.2.128 6 1986 Unknown [id number] 2.16.840.1.910446.3.579.2.128 6 1986 Unknown [id number] 2.16.840.1.159611.3.579.2.128 6 1986 Unknown [id number] 2.16.840.1.990547.3.579.2.128 6 1986 Unknown [id number] 2.16.840.1.977623.3.579.2.128 6 1986 Unknown [id number] 2.16.840.1.965490.3.579.2.128 6 1986 Unknown [id number] 2.16.840.1.287266.3.579.2.128 6 1986 Unknown [id number] 2.16.840.1.035248.3.579.2.128 6 1986 Unknown [id number] 2.16.840.1.964084.3.579.2.128 6 1986 Unknown [id number] 2.16.840.1.052207.3.579.2.128 6 1986 Unknown [id number] 2.16.840.1.949390.3.579.2.128 6 1959 Medicaid [id number] 1958 Medicare [id number] Social History Date Type Detail Facility Start: 11-25-2018 End: 11-10-2019 Tobacco smoking status MEIS Never smoker [facility] Start: 11-10-2019 End: 09-15-2024 Alcohol intake Current drinker of alcohol (finding) [place] Start: 11-10-2019 Alcohol Comment [place], [place] Start: 1986 Sex Assigned At Not on file [place] Start: 11-25-2018 End: 05-14-2024 Tobacco use and exposure Smokeless tobacco non-user [facility] Start: 11-25-2018 History SDOH Alcohol Comment [facility] Start: 04-21-2019 End: 09-14-2024 Sex Assigned At [facility] Start: 04-21-2019 End: 09-14-2024 History of Social function [facility] Adult Depression Screening Assessment 4 [facility] Start: 05-14-2024 Tobacco smoking status [facility] Smokes tobacco daily [facility] Start: 05-14-2024 Tobacco Comment Vapes daily [facility] Start: 05-14-2024 Alcohol Comment caffeine intake: 12 oz coffee daily [facility] Tobacco smoking stat us [facility] Tobacco smoking consumption unknown [facility] Do you belong to any clubs or organizations such as yarsanism groups, unions, fraternal or athletic groups, or school groups? No [facility] Are you now , , , , never or living with a partner? [facility] How often to you hav e a drink containing alcohol? Monthly or less [facility] How many standard dr inks containing alcohol do you have on a typical day? 1 or 2 [facility] How often do you hav e 6 or more drinks on 1 occasion? Never [facility] How hard is it for y ou to pay for the very basics like food, housing, medical care, and heating Somewhat hard [facility] Do you feel stress - tense, restless, nervous, or anxious, or unable to sleep at night because your mind is troubled all the time - these days [OSQ] Very much [facility] (I/We) worried wheth er (my/our) food would run out before (I/we) got money to buy more. Never true [facility] Clinical Notes 09-15-2021 to 09-15-2024 Dorcas Peralta NP - 09/15/2024 11:00 AM ESTStelam Zena Abner, MAAMEM - 08/04/2024 3:30 PM ESTPatient InstructionsDorcas Peralta, KOBE - 06/16/2024 11:00 AM EDTSkenton Peralta NP - 05/23/2024 10:30 AM EDT Note Date & Type Note Facility 09-15-2024 History of Present illness Narrative Images from the original note were not included. Marita Messina is a 39 y.o. female presents with chief complaint of Weight Check HPI: HPI History of Present Illness The patient presents for evaluation of weight management, sleep apnea, elevated cholesterol levels, and elevated liver enzymes. She has not yet initiated the use of compounded medication due to a pending insurance change at the start of the year. She is considering utilizing a $ 200 supplemental card for this purpose. She has been diagnosed with sleep apnea. She is scheduled for a cholesterol recheck. However, she consumed coffee with creamer this morning, which may affect the results. She plans to have her cholesterol levels checked tomorrow. Her aba tutor has expressed concern over her fluctuating liver enzyme levels and has ordered a retest. She has not undergone any extensive workup for her liver, only lab tests. Her liver enzyme levels have shown variability in the past. She is uncertain if she has fatty liver disease. She has been prescribed a yoruba for a toenail fungus, which has proven ineffective. She was informed that if her primary care physician approves, she can be started on medication for the fungus. She is scheduled for new blood work. She takes Motrin and last consumed alcohol on Merissa. SOCIAL HISTORY She last had alcohol on . MEDICATIONS Current: Motrin SUBJECTIVE: MEDICATIONS: Current Outpatient Medications Medication Instructions Aimovig 140 mg, Every 28 days albuterol HFA 90 mcg/act inhaler inhale 2 puffs by mouth and INTO THE LUNGS every 4 to 6 hours if needed budesonide-formoterol (Symbicort) 160-4.5 MCG/ACT inhaler 2 puffs, 2 times daily busPIRone (Buspar) 30 MG tablet 1 tablet, 2 times daily clotrimazole-betamethasone (Lotrisone) cream Apply twice daily as directed cyclobenzaprine (Flexeril) 10 MG tablet 1 tablet, 2 times daily PRN FLUoxetine (PROzac) 40 MG capsule 1 capsule, Every morning gabapentin (NEURONTIN) 300 mg, 2 times daily hydrOXYzine pamoate (VISTARIL) 50 mg, 2 times daily PRN ketoconazole (NIZOral) 2 % shampoo Topical, 2 times weekly LORazepam (Ativan) 0.5 MG tablet 1 tablet, Every 6 hours PRN Roby-3 Fatty Acids (FISH OIL OMEGA-3 PO) 2 g, 2 times daily omeprazole (PRILOSEC) 20 mg, Oral, Every 24 hours ondansetron ODT (ZOFRAN-ODT) 4 mg, Every 8 hours PRN propranolol (INDERAL) 20 mg, 2 times daily Repatha SureClick 140 mg, Every 14 days rizatriptan (MAXALT) 5 mg, Once as needed traZODone (DESYREL) 50 mg, Nightly Vraylar 6 MG capsule 1 capsule, Every morning REVIEW OF SYMPTOMS: Review of Systems Constitutional: Negative. HENT: Negative. Eyes: Negative. Respiratory: Negative. Cardiovascular: Negative. Gastrointestinal: Negative. Genitourinary: Negative. Musculoskeletal: Negative. Skin: Negative. Neurological: Negative. OBJECTIVE: Visit Vitals BP 116/80 (BP Location: Left arm, Patient Position: Sitting, BP Cuff Size: Large adult) Pulse 104 Ht 5' 2 Wt 221 lb 12.8 oz SpO2 97% BMI 40.57 kg/m Smoking Status Every Day BSA 2.1 m Physical Exam Vitals reviewed. Constitutional: Appearance: [...] (severe) obesity due to excess calories (CMS/HCC) - Tirzepatide (Mounjaro) 2.5 MG/0.5ML solution auto-injector; Inject 2.5 mg under the skin 1 (one) time per week BOGDAN (obstructive sleep apnea) - Tirzepatide (Mounjaro) 2.5 MG/0.5ML solution auto-injector; Inject 2.5 mg under the skin 1 (one) time per week -Will see if her insurance will cover mounjaro as it was recently FDA approved to help tx. Sleep apnea, this would also help her with weight loss as well. She is agreeable to this. Hepatic steatosis -Recommend low cholesterol/fat diet, increase physical exercise. Mixed hyperlipidemia (CMS/HCC) -Due for lipid panel recheck. Followed by cardiology Elevated liver enzymes -Is having it rechecked next week. No NSAIDs, tylenol or ETOH use prior. If still elevated plan to obtain further work up, she is agreeable to this. documented in this encounter [facility] 08-11-2024 Note Patient Education Ma terials Name: MayuriMarita mariscal Adriana Current Date: 08/11/2024 16:18:15 [facility] : 1985 The following sheet(s) are the [...] breast self-exam (BSE). These experts include the [employer] [employer] and the [place] [employer]. Some experts [...] This means they are not cancer. ? [id number] [employer]. All rights reserved. This information is not [...] prevent urine, gas, or stool leakage. ? [id number] [employer]. All rights reserved. This information is not intended as a substitute fo (more content not included)... [facility] 08-04-2024 History of Present illness Narrative Subjective Patient ID: Marita Messina is a 39 y.o. female who presents for Fungus (Pt is here today for fungal nails, first noticed about 1 yr ago. Also athlete's foot BL. She has tried OTC topical fungal yoruba, no change noted. /SS:8 ). HPI Initial [...] and not practical. Patient typically has toenail yoruba on a constant basis. Also complains of [...] (six) hours if needed, Disp: , Rfl: Roby-3 Fatty Acids (FISH OIL OMEGA-3 PO), Take [...] most recent hepatic enzymes elevated (May 2024). [place] agreement to proceed with topical care measures: [...] Sherie Maria DPM documented in this encounter [facility] 08-04-2024 Instructions Sherie Maria DPM - 08/04/2024 3:30 PM EST As noted documented in this encounter [facility] 06-16-2024 History of Present illness Narrative Images [...] 1 tablet, Oral, Every 6 hours PRN Roby-3 Fatty Acids (FISH OIL OMEGA-3 PO) 2 [...] PCAB accredited and rated highly by the [employer]. Prescription sent to pharmacy Bipolar disorder in full remission, most recent episode unspecified type (CMS/HCC) -Followed by psych Mixed dyslipidemia (CMS/HCC) -Followed by cardiology documented in this encounter [facility] 05-23-2024 History of Present illness Narrative Images [...] Morbid (severe) obesity due to excess calories ([facility]) Gastro-esophageal reflux disease without esophagitis Body mass index (BMI) 39.0-39.9, adult Bipolar disorder, unspecified ([facility]) documented in this encounter [facility] 05-22-2024 History of Present illness Narrative klo documented in this encounter [facility] 05-14-2024 History of Present illness Narrative Marita [...] skin 1 (one) time per week -Trial sarai. Samples provided today in office. Encounter to [...] to be refilled. documented in this encounter [facility] 08-09-2023 Miscellaneous Notes Please see pended medication. Pharmacy linked. Last ordered 03/09/2023. Ashtyn Perez MA documented in this encounter [facility] 03-09-2023 Miscellaneous Notes Please see pended medication. Pharmacy linked. Last ordered 10/25/2022. Ashtyn Perez MA documented in this encounter [facility] 07-11-2022 Note CONSULTATION PROCEDURE DATE: 07/11/2022 [...] be followed up in the office. [facility] 07-11-2022 Note CONSULTATION CONSULTATION DATE: 07/11/2022 CHIEF COMPLAINT: Trapezius and upper back pain. HISTORY OF PRESENT ILLNESS: This is a 36-year-old female who is known to the [facility]. The patient, in October of this year, had a rhizotomy radiofrequency ablation along her cervical spine. This has afforded the patient significant improvement. 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 CC: Caitlyn Sparrow M.D. [facility] 05-23-2022 Miscellaneous Notes Please see pended medication. Pharmacy linked. Last ordered 10/20/2021. Ashtyn Perez Ma documented in this encounter [facility] 03-08-2022 Note CONSULTATION CONSULTATION DATE: 03/08/2022 [...] Patient does agree with plan of care. [facility] Signed and Approved by: LUDA RODRIGUEZ . 03/09/2022 13:38:00 [facility] 01-09-2022 Miscellaneous Notes Please see pended medication. Pharmacy linked. Last ordered 07/05/2021. Ashtyn Perez Ma documented in this encounter [facility] 11-30-2021 Note CONSULTATION PAIN MANAGEMENT CONSULTATION [...] time, and patient agrees to this plan. [facility] Signed and Approved by: LUDA RODRIGUEZ . 12/01/2021 12:26:00 [facility] 09-15-2021 Note [facility] [place], [place] NAME: MARITA MESSINA DATE OF : MEDICAL REC#: [id number] DYE CAN OPERATOR: [id number] LILIANA DAWKINS ADMIT DATE: 09/15/2021 12:21:00 TAX ACCOUNTING MANAGER DATE: 09/16/2021 11:00 DICTATING PHYSICIAN: LUDA RODRIGUEZ [...] by: LUDA RODRIGUEZ . 09/25/2021 23:23:00 [facility] Evaluation note Diagnosis Excessive physiologic tremor Essential and other specified forms of tremor [facility] note[facility] [place] [employer] Other Evaluation note* Diagnosis Daytime sleepiness Narcolepsy without cataplexy [facility] Diagnosis Daytime sleepiness Narcolepsy without cataplexy [facility] Diagnosis Daytime sleepiness Narcolepsy without cataplexy [facility] Morbid (severe) obesity due to excess calories ([facility])- Primary Bipolar disorder in full remission, most recent episode unspecified type (CMS/HCC) Mixed dyslipidemia ([facility]) documented in this encounter [facility]* Diagnosis Tinea pedis of both feet- Primary Chronic dermatitis of feet Contact dermatitis and other eczema, due to unspecified cause Dermatophytosis of nail Pain around toenail, right foot Pain around toenail, left foot documented in this encounter [facility] Healthcare[facility] note* Diagnosis Dermatitis- Primary Contact dermatitis and other eczema, due to unspecified cause documented in this encounter [facility]* Diagnosis Folliculitis- Primary Other specified disease of hair and hair follicles Obesity, Class II, BMI 35-39.9 Morbid (severe) obesity due to excess calories (CMS/HCC) Gastro-esophageal reflux disease without esophagitis Body mass index (BMI) 39.0-39.9, adult Bipolar disorder, unspecified (CMS/HCC) Bipolar disorder, unspecified documented in this encounter [facility] note* Diagnosis Gastroesophageal reflux disease without esophagitis Esophageal reflux documented in this encounter [facility]* Diagnosis Obesity, Class II, BMI 35-39.9- Primary Encounter to establish care [facility]* Diagnosis Rash- Primary Rash and other nonspecific skin eruption Obesity, Class II, BMI 35-39.9 documented in this encounter [facility]* Diagnosis Morbid (severe) obesity due to excess calories (CMS/HCC)- Primary BOGDAN (obstructive sleep apnea) Obstructive sleep apnea (adult) (pediatric) Hepatic steatosis Other chronic nonalcoholic liver disease Mixed hyperlipidemia (CMS/HCC) Mixed hyperlipidemia Elevated liver enzymes Other nonspecific abnormal serum enzyme levels documented in this encounter [facility]* Diagnosis Obstructive sleep apnea syndrome Obstructive sleep apnea (adult) (pediatric) documented in this encounter [facility]* Diagnosis Tremor- Primary Abnormal involuntary movements documented in this encounter [facility] Summary Purpose Family History No Family History Records FoundNo Family History Records FoundNo Family History Records FoundNo Family History Records FoundNo Family History Records FoundNo Family History Records FoundNo Family History Records Found Advance Directives Documents on File Type Date Recorded 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 HERNIA REPAIR umbilical and above belly buton also at [facility] about 2 years ago HYSTERECTOMY TUMOR REMOVAL Left 2012 left thumb at [facility] Family History: Family History Problem Relation [...] [facility] May [facility] and March 2020. The [...] section and content) DATE CREATED AUTHOR 05/31/2019 [facility] DATE CREATED AUTHOR AUTHOR'S ORGANIZ ATION 11/11/2019 [facility] DATE CREATED AUTHOR AUTHOR'S ORGANIZ ATION 12/01/2021 [facility] DATE CREATED AUTHOR AUTHOR'S ORGANIZ ATION 09/02/2022 [facility] DATE CREATED AUTHOR AUTHOR'S ORGANIZ ATION 09/05/2024 [facility] DATE CREATED AUTHOR AUTHOR'S ORGANIZ ATION 09/21/2024 [facility] DATE CREATED AUTHOR AUTHOR'S ORGANIZ ATION 09/21/2024 [facility] Comments (unrecognize d section and content) In the event this informatio n is protected by the Federal Confidentiality of Alcohol and Drug Abuse Patient Records regulations: The Federal rules restrict any use of the information to criminally investigate or prosecute any alcohol or drug abuse patient.[facility] the event this information is protected by the Federal Confidentiality of Alcohol and Drug Abuse Patient Records regulations: The Federal rules restrict any use of the information to criminally investigate or prosecute any alcohol or drug abuse patient.[facility] the event this information is protected by the Federal Confidentiality of Alcohol and Drug Abuse Patient Records regulations: The Federal rules restrict any use of the information to criminally investigate or prosecute any alcohol or drug abuse patient.[facility] the event this information is protected by the Federal Confidentiality of Alcohol and Drug Abuse Patient Records regulations: The Federal rules restrict any use of the information to criminally investigate or prosecute any alcohol or drug abuse patient.[facility] Reason for Visit (unrecogniz ed section and content) Reason Onset Date Comments Refill Request 01/09/2022 Reason Onset Date Comments Refill Request 03/09/2023 Reason Onset Date Comments Refill Request 08/09/2023 Reason Comments Follow-up Reason Comments Fungus Pt is here today for fungal nails, first noticed about 1 yr ago. Also athlete's foot BL. She has tried OTC topical fungal yoruba, no change noted. SS:8 Reason Comments Rash Reason Onset Date Comments Med Refill 05/26/2024 Reason Comments Establish Care Weight Loss Reason Comments Weight Check Reason Onset Date Comments Med Refill 09/20/2024 Care Teams (unrecognized sec tion and content) 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 Specialty Start Date End Date Caitlyn Sparrow [address], [place] [id number] PCP - General Internal Medicine 11/25/18 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 Specialty Start Date End Date Caitlyn Sparrow [address] [place] [address] PCP - General Internal Medicine 11/25/18 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 Specialty Start Date End Date Caitlyn Sparrow [address] [place] [address] PCP - General Internal Medicine 11/25/18 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 Specialty Start Date End Date Caitlyn Sparrow [address] [place] [address] PCP - General Internal Medicine 11/25/18 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 Specialty Start Date End Date Jo-Ann Carlson MD [address] [place] [address] PCP - General Family Medicine 05/09/24 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 Specialty Start Date End Date Jo-Ann Carlson MD [address] [place] [address] PCP - General Family Medicine 05/09/24 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 Specialty Start Date End Date Jo-Ann Carlson MD [address] [place] [address] PCP - General Family Medicine 05/09/24 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 Specialty Start Date End Date Jo-Ann Carlson MD [address] [place] [address] PCP - General Family Medicine 05/09/24 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 Specialty Start Date End Date Jo-Ann Carlson MD [address] [place] [address] PCP - General Family Medicine 05/09/24 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 Specialty Start Date End Date Jo-Ann Carlson MD [address] [place] [address] PCP - General Family Medicine 05/09/24 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 Specialty Start Date End Date Jo-Ann Carlson MD [address] [place] [address] PCP - General Family Medicine 05/09/24 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 Specialty Start Date End Date Jo-Ann Carlson MD [address] [place] [address] PCP - General Family Medicine 05/09/24 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 Specialty Start Date End Date Jo-Ann Carlson MD [address] [place] [address] PCP - General Family Medicine 05/09/24 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 [facility] [employer] [facility]. provides no warranty or guarantee of the accuracy or completeness of information in this document.
== END 2024-09-24 08:53 | disposition home or self-care (01) ==
PROVIDERS: PCP Internal Medicine; Visit Provider Nurse Practitioner
DX: M47.812 Spondylosis without myelopathy or radiculopathy, cervical region (principal); M50.30 Other cervical disc degeneration, unspecified cervical region; M48.062 Spinal stenosis, lumbar region with neurogenic claudication; M54.16 Radiculopathy, lumbar region; G89.4 Chronic pain syndrome; M47.816 Spondylosis without myelopathy or radiculopathy, lumbar region; M79.18 Myalgia, other site
CPT/HCPCS: G0463

== ENCOUNTER 2024-10-13 08:56 | Day surgery (SDC) | payer MEDICARE, MEDICAID, SELFPAY ==
--- OUTSIDE RECORDS SUMMARY | 2024-10-13 09:11 | XMS_ITS | CCD ---
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 Welder Name Role Phone SIMMONSBRADLEY Referring Unavailable Unavailable Primary Care Provider Unavailjulianne [...] able TOYIN, DR MUNIRA Avalos Admitting Unavailable RONNEI, EVETTE Consulting Unavailable LUDA RODRIGUEZ Consulting Unavailable [...] DR MUNIRA Avalos Admitting Unavailable Kyara[facility] Robyn CLEMONS, [facility] Provider Kyara CLEMONS, Caitlyn [facility] Ness vajax Thomas PA-C, Dorcas Stewart Attending Christian Thomas PA-C, Dorcas Stewart Attending Christian Sparrow MD, [facility] Ness kolbyilable Kyara CLEMONS, [facility] Ness wilfredoble Malina CLEMONS, Sana Doyle Attending Unavailable Malina CLEMONS, Sana Doyle Attending Unavailable Kyara CLEMONS, [facility] Ness wilfred[place]le Kyara CLEMONS, [facility] Ness wilfred[place]le Malina CLEMONS, Sana Doyle Attending Unavailable Kyara CLEMONS, [facility] Ness wilfred[place]le Malina CLEMONS, Sana Doyle Attending [...] HYDROcodone; Translations: [HYDROCODONE-ACETA MINOPHEN] Drug Allergy 10-09-2019 [place], [place] (9 sources) Acetaminophen / HYDROcodone; Translations: [Vicodin] Drug Allergy 09-10-2014 [facility] Repository Medications Current Medications Medication Drug Class(es) Dates Sig (Normalized) Sig (Original) Aimovig 140 MG/ML (6 sources) inject 140 mg by subcutaneous injection every month Aimovig 140 MG/ML as directed Subcutaneous monthly Active [id number] 200 actuat albuterol 0.09 mg/actuat metered dose [...] morning. Active take 1 capsule by mo [facility] every twenty-four hours Vraylar 4.5 MG [...] 05/23/2024 06/02/2024 Active take 1 capsule by [facility] every twenty-four hours Doxycycline Hyclate 100 MG [...] Start: 11-20-2018 take 1 capsule by mo [facility] once daily FLUoxetine HCl (PROZAC) 40 [...] time(s) a day for 30 days Active [place]-3 Fatty Acids (FISH OIL OMEGA-3 PO) (10 sources) take 2 tablets by mouth twice daily in the morning [place]-3 Fatty Acids (FISH OIL OMEGA-3 PO) Take [...] 11/07/2018 Active take 1 capsule by mo [facility] twice daily Omeprazole 40 MG 1 capsule 30 minutes before morning meal Orally twice a day Not-Taking take 2 capsules by [facility] once daily omeprazole (PRILOSEC) 20 MG delayed release capsule Take 40 mg by mouth daily 0 Active Comment on above: take 1 capsule by mo [facility] once daily as directed ondansetron 4 mg [...] A Myles on 09/16/2024 2:09 PM Normal [facility] Gynecology Office/Clinic Not freddie 08-13-2024 Gynecology [...] cover after 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 Normal [facility] COMPREHENSIVE METABOLIC PANE Mika 05-19-2024 Albumin [Mass/Vol] 4.6 g/dL Normal 3.2-5.3 [facility] Comment on above: Performed By: #### C EVIN, 09936-3, THYR, CBCA, 85663-0 #### [facility] ([id number]) [address], [address] [place] [address] ALP [Catalytic activity/Vol] 78 U/L Normal 39-[address] [facility] Comment on above: Performed By: #### C EVIN, 62499-4, THYR, CBCA, 74155-2 #### [facility] ([id number]) [address], [address] [place] [address] ALT [Catalytic activity/Vol] 85 U/L High 0-[address] [facility] Comment on above: Performed By: #### C EVIN, 63523-7, THYR, CBCA, 91691-8 #### [facility] ([id number]) [address], [address] [place] [address] Anion gap [Moles/Vol] 15 mmol/L Normal 5-[address] [facility] Comment on above: Performed By: #### C EVIN, 89663-6, THYR, CBCA, 19609-9 #### [facility] ([id number]) [address], [address] [place] [address] AST [Catalytic activity/Vol] 54 U/L High 0-[address] [facility] Comment on above: Performed By: #### C EVIN, 26594-8, THYR, CBCA, 14546-1 #### [facility] ([id number]) [address], [address] [place] [address] Bilirubin [Mass/Vol] 0.6 mg/dL Normal 0.3-1.[address] [facility] Comment on above: Performed By: #### C EVIN, 05705-7, THYR, CBCA, 78809-6 #### [facility] ([id number]) [address], [address] [place] [address] Calcium [Mass/Vol] 9.6 mg/dL Normal 8.5-10.5 [facility] Comment on above: Performed By: #### C EVIN, 90639-8, THYR, CBCA, 91103-5 #### [facility] ([id number]) [address], [address] [place] [address] Chloride [Moles/Vol] 102 mmol/L Normal 98-[address] [facility] Comment on above: Performed By: #### C EVIN, 78129-5, THYR, CBCA, 86848-0 #### [facility] ([id number]) [address], [address] [place] [address] CO2 [Moles/Vol] 19 mmol/L Low 22-[address] [facility] Comment on above: Performed By: #### C EVIN, 75688-9, THYR, CBCA, 90759-1 #### [facility] ([id number]) [address], [address] [place] [address] Creatinine [Mass/Vol] 0.89 mg/dL Normal 0.40-1.[address] [facility] Comment on above: Result Comment: METH OD TRACEABLE TO IDMS STANDARD Performed By: #### C EVIN, 70259-9, THYR, CBCA, 29561-9 #### [facility] ([id number]) [address], [address] [place] [address] GFR/1.73 sq M.predicted among non-blacks MDRD (S/P/Bld) [Vol rate/Area] 86 mL/min/{1.73_m2} Normal >[address] [facility] Comment on above: Result Comment: Reported eGFR is based on the CKD-EPI 2020 equation that does not use a race coefficient. Performed By: #### Mariam CLEARY, 13085-6, THYR, CBCA, 27830-7 #### [facility] ([id number]) [address], [address] [place] [address] Glucose [Mass/Vol] 95 mg/dL Normal 65-99 [facility] Comment on above: Performed By: #### Mariam CLEARY, 72968-6, THYR, CBCA, 17908-7 #### [facility] ([id number]) [address], [address] [place] [address] Potassium [Moles/Vol] 4.0 mmol/L Normal 3.5-5.[address] [facility] Comment on above: Performed By: #### Mariam CLEARY, 42259-4, THYR, CBCA, 39087-2 #### [facility] ([id number]) [address], [address] [place] [address] Protein [Mass/Vol] 7.0 g/dL Normal 6.0-8.0 [facility] Comment on above: Performed By: #### C EVIN, 83584-3, THYR, CBCA, 59404-7 #### [facility] ([id number]) [address], [address] [place] [address] Sodium [Moles/Vol] 136 mmol/L Normal 134-146 [facility] Comment on above: Performed By: #### C EVIN, 37199-1, THYR, CBCA, 34962-2 #### [facility] ([id number]) [address], [address] [place] [address] Urea nitrogen [Mass/Vol] 10 mg/dL Normal 5-[address] [facility] Comment on above: Performed By: #### C EVIN, 95252-1, THYR, CBCA, 51995-3 #### [facility] ([id number]) [address], [address] [place] [address] DIRECT LDLon 05-19-2024 Cholesterol in LDL [Mass/Vol] 181 mg/dL High <[address] [facility] Comment on above: Result Comment: LDL <100 mg/dL - Desirable LDL 130-159 mg/dL - Borderline High Risk LDL >160 mg/dL - High Risk Performed By: #### C EVIN, 93306-3, THYR, CBCA, 40905-2 #### [facility] ([id number]) [address], [address] [place] [address] LIVER PANELon 05-19-2024 Bilirubin.direct [Mass/Vol] 0.1 mg/dL Normal 0.0-0.[address] [facility] Comment on above: Performed By: #### C EVIN, 38089-1, THYR, CBCA, 11398-5 #### [facility] ([id number]) [address], [address] [place] [address] Lipid 1996 panelon 4 Cholesterol [Mass/Vol] 276 mg/dL High 150-[address] [facility] Comment on above: Performed By: #### C EVIN, 81416-2, THYR, CBCA, 11522-3 #### [facility] ([id number]) [address], [address] [place] [address] Cholesterol in HDL [Mass/Vol] 42 mg/dL Normal >[address] [facility] Comment on above: Result Comment: HDL <40 mg/dL - High Risk HDL > or = 40mg/dL- Desirable HDL >60 mg/dL - Negative Risk Performed By: #### C EVIN, 84326-4, THYR, CBCA, 05021-6 #### [facility] ([id number]) [address], [address] [place] [address] Cholesterol in VLDL [Mass/Vol] 98 mg/dL High 0-[address] [facility] Comment on above: Performed By: #### C EVIN, 22775-8, THYR, CBCA, 42433-7 #### [facility] ([id number]) [address], [address] [place] [address] CHOLESTEROL:HDL 6.6 High 1.0-5.[address] [facility] Comment on above: Performed By: #### C EVIN, 57806-1, THYR, CBCA, 05942-6 #### [facility] ([id number]) [address] [address] [place] [address] LDL (CALC) RESULT NOT REPORTED DUE TO HIGH TRIGLYCERIDE Normal <[address] [facility] Comment on above: Performed By: #### C EVIN, 37922-5, THYR, CBCA, 33360-3 #### [facility] ([id number]) [address], [address] [place] [address] Triglyceride [Mass/Vol] 488 mg/dL High 27-[address] [facility] Comment on above: Performed By: #### C MP, 13411-9, THYR, CBCA, 25776-8 #### [facility] ([id number]) [address], [address] [place] [address] MR LUMBAR SPINE WO CONTon MR LUMBAR [...] on 03/26/2024 1:45 PM Normal [facility] CBC AND AUTO DIFFon 03-23-20 24 ABSOLUTE BASOPHIL 0.0 X10E9/L Normal 0.0-0.2 [facility] Comment on above: Performed By: #### C EVIN, 19019-6, THYR, CBCA, 12149-9 #### [facility] ([id number]) [address], [address] [place] [address] ABSOLUTE NEUTROPHIL 4.7 X10E9/L Normal 1.5-6.6 [facility] Comment on above: Performed By: #### C EVIN, 31652-0, THYR, CBCA, 11465-1 #### [facility] ([id number]) [address], [facility] [address] [place] [address] Basophils/100 WBC (Bld) 0.3 % Normal [facility] Comment on above: Performed By: #### C EVIN, 09173-5, THYR, CBCA, 49827-3 #### [facility] ([id number]) [address] [address] [place] [address] Eosinophils (Bld) [#/Vol] 0.0 10*3/uL Normal 0.0-0.[address] [facility] Comment on above: Performed By: #### C EVIN, 16184-9, THYR, CBCA, 70301-8 #### [facility] ([id number]) [address] [address] [place] [address] Eosinophils/100 WBC (Bld) 0.4 % Normal [facility] Comment on above: Performed By: #### C EVIN, 60162-2, THYR, CBCA, 11811-9 #### [facility] ([id number]) [address] [address] [place] [address] Erythrocyte distribution width (RBC) [Ratio] 13.5 % Normal 11.5-15.[address] [facility] Comment on above: Performed By: #### C EVIN, 44459-3, THYR, CBCA, 58288-9 #### [facility] ([id number]) [address] [address] [place] [address] Hematocrit (Bld) [Volume fraction] 44.6 % Normal 35-[address] [facility] Comment on above: Performed By: #### C EVIN, 82662-8, THYR, CBCA, 81890-5 #### [facility] ([id number]) [address], [address] [place] [address] Hemoglobin (Bld) [Mass/Vol] 15.6 g/dL High 11.7-15.[address] [facility] Comment on above: Performed By: #### C EVIN, 49731-9, THYR, CBCA, 18038-8 #### [facility] ([id number]) [address] [address] [place] [address] Lymphocytes (Bld) [#/Vol] 0.5 10*3/uL Low 1.0-3.[address] [facility] Comment on above: Performed By: #### C EVIN, 71106-8, THYR, CBCA, 92582-1 #### [facility] ([id number]) [address] [address] [place] [address] Lymphocytes/100 WBC (Bld) 8.7 % Normal [facility] Comment on above: Performed By: #### C EVIN, 40261-1, THYR, CBCA, 46576-4 #### [facility] ([id number]) [address], [address] [place] [address] MCH (RBC) [Entitic mass] 32.5 pg Normal 27-[address] [facility] Comment on above: Performed By: #### C EVIN, 30439-5, THYR, CBCA, 08562-0 #### [facility] ([id number]) [address] [address] [place] [address] MCHC (RBC) [Mass/Vol] 34.9 g/dL Normal 32-[address] [facility] Comment on above: Performed By: #### C EVIN, 81535-9, THYR, CBCA, 98357-5 #### [facility] ([id number]) [address], [address] [place] [address] MCV (RBC) [Entitic vol] 93 fL Normal 80-[address] [facility] Comment on above: Performed By: #### C EVIN, 97418-8, THYR, CBCA, 82994-4 #### [facility] ([id number]) [address], [facility] [address] [place] [address] Monocytes (Bld) [#/Vol] 0.0 10*3/uL Normal 0-0.[address] [facility] Comment on above: Performed By: #### C EVIN, 83724-5, THYR, CBCA, 38244-3 #### [facility] ([id number]) [address], [address] [place] [address] Monocytes/100 WBC (Bld) 0.6 % Normal [facility] Comment on above: Performed By: #### Mariam CLEARY, 57664-9, THYR, CBCA, 67883-6 #### [facility] ([id number]) [address] [address] [place] [address] Neutrophils/100 WBC (Bld) 90.0 % Normal [facility] Comment on above: Performed By: #### C EVIN, 43471-6, THYR, CBCA, 57878-4 #### [facility] ([id number]) [address], [address] [place] [address] Platelet mean volume (Bld) [Entitic vol] 7.2 fL Normal 7-[address] [facility] Comment on above: Performed By: #### C EVIN, 33311-8, THYR, CBCA, 69341-2 #### [facility] ([id number]) [address], [address] [place] [address] Platelets (Bld) [#/Vol] 286 10*3/uL Normal 150-[address] [facility] Comment on above: Performed By: #### C EVIN, 23271-3, THYR, CBCA, 48732-2 #### [facility] ([id number]) [address], [address] [place] [address] RBC COUNT 4.80 X10E12/L Normal 3.80-5.[address] [facility] Comment on above: Performed By: #### C EVIN, 17002-7, THYR, CBCA, 96450-1 #### [facility] ([id number]) [address], [address] [place] [address] WBC (Bld) [#/Vol] 5.3 10*3/uL Normal 4.0-11.0 [facility] Comment on above: Performed By: #### C EVIN, 20223-0, THYR, CBCA, 77949-5 #### [facility] ([id number]) [address], [address] [place] [address] COMPREHENSIVE METABOLIC PANE Mika 03-23-2024 Albumin [Mass/Vol] 4.2 g/dL Normal 3.2-5.3 [facility] Comment on above: Performed By: #### C EVIN, 68839-3, THYR, CBCA, 70646-6 #### [facility] ([id number]) [address], [address] [place] [address] ALP [Catalytic activity/Vol] 115 U/L Normal 39-[address] [facility] Comment on above: Performed By: #### C EVIN, 60667-4, THYR, CBCA, 84207-7 #### [facility] ([id number]) [address], [address] [place] [address] ALT [Catalytic activity/Vol] 81 U/L High 0-[address] [facility] Comment on above: Performed By: #### C EVIN, 05373-0, THYR, CBCA, 18317-0 #### [facility] ([id number]) [address] [place] [address] Anion gap [Moles/Vol] 14 mmol/L Normal 5-[address] [facility] Comment on above: Performed By: #### C EVIN, 22576-6, THYR, CBCA, 18247-2 #### [facility] ([id number]) [address], [address] [place] [address] AST [Catalytic activity/Vol] 48 U/L High 0-[address] [facility] Comment on above: Performed By: #### C EVIN, 59199-9, THYR, CBCA, 16316-3 #### [facility] ([id number]) [address] [place] [address] Bilirubin [Mass/Vol] 1.3 mg/dL High 0.3-1.[address] [facility] Comment on above: Performed By: #### C EVIN, 82801-7, THYR, CBCA, 24533-6 #### [facility] ([id number]) [address], [address] [place] [address] Calcium [Mass/Vol] 9.3 mg/dL Normal 8.5-10.5 [facility] Comment on above: Performed By: #### C EVIN, 60307-0, THYR, CBCA, 48030-6 #### [facility] ([id number]) [address] [place] [address] Chloride [Moles/Vol] 97 mmol/L Low 98-[address] [facility] Comment on above: Performed By: #### C EVIN, 80328-1, THYR, CBCA, 66462-1 #### [facility] ([id number]) [address] [place] [address] CO2 [Moles/Vol] 22 mmol/L Normal 22-[address] [facility] Comment on above: Performed By: #### C EVIN, 18089-2, THYR, CBCA, 43311-4 #### [facility] ([id number]) [address], [address] [place] [address] Creatinine [Mass/Vol] 0.91 mg/dL Normal 0.40-1.[address] [facility] Comment on above: Result Comment: METH OD TRACEABLE TO IDMS STANDARD Performed By: #### C EVIN, 75283-6, THYR, CBCA, 37009-9 #### [facility] ([id number]) [address], [address] [place] [address] GFR/1.73 sq M.predicted among non-blacks MDRD (S/P/Bld) [Vol rate/Area] 83 mL/min/{1.73_m2} Normal >[address] [facility] Comment on above: Result Comment: Reported eGFR is based on the CKD-EPI 2020 equation that does not use a race coefficient. Performed By: #### C EVIN, 92982-8, THYR, CBCA, 91314-0 #### [facility] ([id number]) [address], [address] [place] [address] Glucose [Mass/Vol] 110 mg/dL High 65-99 [facility] Comment on above: Performed By: #### C EVIN, 90615-6, THYR, CBCA, 63088-4 #### [facility] ([id number]) [address], [address] [place] [address] Potassium [Moles/Vol] 3.8 mmol/L Normal 3.5-5.[address] [facility] Comment on above: Performed By: #### Mariam CLEARY, 81000-4, THYR, CBCA, 31380-2 #### [facility] ([id number]) [address] [place] [address] Protein [Mass/Vol] 8.0 g/dL Normal 6.0-8.0 [facility] Comment on above: Performed By: #### C MP, 02753-4, THYR, CBCA, 86121-7 #### [facility] ([id number]) [address] [place] [address] Sodium [Moles/Vol] 133 mmol/L Low 134-146 [facility] Comment on above: Performed By: #### C MP, 03906-9, THYR, CBCA, 25429-1 #### [facility] ([id number]) [address] [place] [address] Urea nitrogen [Mass/Vol] 13 mg/dL Normal 5-[address] [facility] Comment on above: Performed By: #### C MP, 75526-5, THYR, CBCA, 12019-4 #### [facility] ([id number]) [address] [place] [address] CT CTA CHESTon 03-23-2024 CT CTA CHEST [...] on 03/23/2024 10:52 PM Normal [facility] Fibrin D-dimer DDU (PPP) [Ma ss/Vol]on 03-23-2024 D DIMER 336 ng/mL DDU High <[address] [facility] Comment on above: Result Comment: Results [...] D-Dimer level. Performed By: #### C EVIN, 62474-8, THYR, CBCA, 18351-5 #### [facility] ([id number]) [address], [address] [place] [address] HCG ( test) Ql (U)o n 03-23-2024 Beta HCG ( test) Ql (U) Negative Normal NEG [facility] Comment on above: Performed By: #### C EVIN, 88805-7, THYR, CBCA, 57950-9 #### [facility] ([id number]) [address] [place] [address] LIPASEon 03-23-2024 Lipase [Catalytic activity/Vol] 30 U/L Normal 17-[address] [facility] Comment on above: Performed By: #### C EVIN, 78116-1, THYR, CBCA, 66755-9 #### [facility] ([id number]) [address] [place] [address] THYROID PROFILEon 03-23-2024 Free T4 [Mass/Vol] 0.74 ng/dL Normal 0.61-1.60 [facility] Comment on above: Performed By: #### C EVIN, 61878-7, THYR, CBCA, 67756-1 #### [facility] ([id number]) [address], [address] [place] [address] TSH 1.64 uIU/mL Normal 0.49-4.[address] [facility] Comment on above: Performed By: #### Mariam CLEARY, 66752-4, THYR, CBCA, 19937-6 #### [facility] ([id number]) [address] [place] [address] Troponin I.cardiac High sens itivity method [Mass/Vol]on 03-23-2024 1 HOUR TROP I, HIGH SENSITIVITY 3 ng/L Normal <[address] [facility] Comment on above: Performed By: #### Mariam CLEARY, 10944-8, THYR, CBCA, 66042-9 #### [facility] ([id number]) [address] [place] [address] TROPONIN I, HIGH SENSITIVITY 2 ng/L Normal <[address] [facility] Comment on above: Performed By: #### Mariam CLEARY, 34302-8, THYR, CBCA, 54779-4 #### [facility] ([id number]) [address] [place] [address] URINE CULTUREon 03-23-2024 Bacteria identified Cx Nom [...] F TRIMETH/SULFAMETHOXAZO LE S <=09/28 F Susceptible [facility] Comment on above: Performed By: #### C EVIN, 44140-5, THYR, CBCA, 80324-2 #### [facility] ([id number]) [address] [place] [address] URN MACROSCOPIC NURon 2023 BILIRUBIN LUL Negative Normal NEG [facility] Comment on above: Performed By: #### C EVIN, 14852-3, THYR, CBCA, 15566-4 #### [facility] ([id number]) [address] [place] [address] BLOOD/HGB LUL Small Abnormal NEG [facility] Comment on above: Performed By: #### C EVIN, 05405-6, THYR, CBCA, 24142-4 #### [facility] ([id number]) [address], [address] [place] [address] GLUCOSE LUL Negative Normal [facility] Comment on above: Performed By: #### C EVIN, 86103-9, THYR, CBCA, 85204-3 #### [facility] ([id number]) [address], [address] [place] [address] KETONES LUL Negative Normal NEG [facility] Comment on above: Performed By: #### C EVIN, 68535-0, THYR, CBCA, 28518-8 #### [facility] ([id number]) [address], [address] [place] [address] LEUKOCYTE ESTERASE LUL Small Abnormal NEG [facility] Comment on above: Performed By: #### C EVIN, 37363-5, THYR, CBCA, 47311-4 #### [facility] ([id number]) [address], [address] [place] [address] NITRITE LUL Negative Normal NEG [facility] Comment on above: Performed By: #### [place] MP, 17056-1, THYR, CBCA, 51010-4 #### [facility] ([id number]) [address], [address] [place] [address] PH LUL 5.5 Normal 5.0-8.[address] [facility] Comment on above: Performed By: #### C MP, 94664-3, THYR, CBCA, 88763-9 #### [facility] ([id number]) [address], [address] [place] [address] PROTEIN LUL Negative Normal NEG [facility] Comment on above: Performed By: #### C MP, 92049-3, THYR, CBCA, 68683-6 #### [facility] ([id number]) [address] [address] [place] [address] SPECIFIC GRAVITY LUL 1.010 Normal 1.003-1.[address] [facility] Comment on above: Performed By: #### C MP, 63765-6, THYR, CBCA, 76361-3 #### [facility] ([id number]) [address], [address] [place] [address] UROBILINOGEN LUL 0.2 eu/dL Normal <1.1 [facility] Comment on above: Performed By: #### C MP, 72437-0, THYR, CBCA, 17756-1 #### [facility] ([id number]) [address], [address] [place] [address] CBC AND AUTO DIFFon -- 24 ABSOLUTE BASOPHIL 0.0 X10E9/L Normal 0.0-0.2 [facility] Comment on above: Performed By: #### C BCA, HA1C, THYR, 98156-1 #### [facility] ([id number]) [address], [address] [place] [address] ABSOLUTE NEUTROPHIL 2.8 X10E9/L Normal 1.5-6.6 [facility] Comment on above: Performed By: #### C JORGE L, HA1C, THYR, 54272-6 #### [facility] ([id number]) [address], [address] [place] [address] Basophils/100 WBC (Bld) 0.7 % Normal [facility] Comment on above: Performed By: #### C BCA, HA1C, THYR, 12554-7 #### [facility] ([id number]) [address] [place] [address] Eosinophils (Bld) [#/Vol] 0.1 10*3/uL Normal 0.0-0.[address] [facility] Comment on above: Performed By: #### Mariam BCA, HA1C, THYR, 04324-4 #### [facility] ([id number]) [address], [address] [place] [address] Eosinophils/100 WBC (Bld) 2.1 % Normal [facility] Comment on above: Performed By: #### C JORGE L, HA1C, THYR, 56633-0 #### [facility] ([id number]) [address] [place] [address] Erythrocyte distribution width (RBC) [Ratio] 13.7 % Normal 11.5-15.[address] [facility] Comment on above: Performed By: #### C BCA, HA1C, THYR, 25359-4 #### [facility] ([id number]) [address] [place] [address] Hematocrit (Bld) [Volume fraction] 45.0 % Normal 35-[address] [facility] Comment on above: Performed By: #### C BCA, HA1C, THYR, 01717-5 #### [facility] ([id number]) [address] [place] [address] Hemoglobin (Bld) [Mass/Vol] 15.5 g/dL Normal 11.7-15.[address] [facility] Comment on above: Performed By: #### C JORGE L, HA1C, THYR, 73104-3 #### [facility] ([id number]) [address] [place] [address] Lymphocytes (Bld) [#/Vol] 1.4 10*3/uL Normal 1.0-3.[address] [facility] Comment on above: Performed By: #### C BCA, HA1C, THYR, 69160-5 #### [facility] ([id number]) [address], [facility] [address] [place] [address] Lymphocytes/100 WBC (Bld) 28.9 % Normal [facility] Comment on above: Performed By: #### C JORGE L, HA1C, THYR, 09990-6 #### [facility] ([id number]) [address] [place] [address] MCH (RBC) [Entitic mass] 32.0 pg Normal 27-[address] [facility] Comment on above: Performed By: #### Mariam COATS, HA1C, THYR, 85054-7 #### [facility] ([id number]) [address] [place] [address] MCHC (RBC) [Mass/Vol] 34.3 g/dL Normal 32-[address] [facility] Comment on above: Performed By: #### C BCA, HA1C, THYR, 43920-5 #### [facility] ([id number]) [address] [place] [address] MCV (RBC) [Entitic vol] 93 fL Normal 80-[address] [facility] Comment on above: Performed By: #### Mariam BCA, HA1C, THYR, 31164-3 #### [facility] ([id number]) [address] [place] [address] Monocytes (Bld) [#/Vol] 0.4 10*3/uL Normal 0-0.[address] [facility] Comment on above: Performed By: #### C JORGE L, HA1C, THYR, 60817-6 #### [facility] ([id number]) [address] [place] [address] Monocytes/100 WBC (Bld) 8.4 % Normal [facility] Comment on above: Performed By: #### C BCA, HA1C, THYR, 22985-8 #### [facility] ([id number]) [address] [place] [address] Neutrophils/100 WBC (Bld) 59.9 % Normal [facility] Comment on above: Performed By: #### C JORGE L, HA1C, THYR, 00021-4 #### [facility] ([id number]) [address] [place] [address] Platelet mean volume (Bld) [Entitic vol] 8.5 fL Normal 7-[address] [facility] Comment on above: Performed By: #### Mariam COATS, HA1C, THYR, 51076-4 #### [facility] ([id number]) [address] [place] [address] Platelets (Bld) [#/Vol] 272 10*3/uL Normal 150-[address] [facility] Comment on above: Performed By: #### Mariam BCA, HA1C, THYR, 35119-9 #### [facility] ([id number]) [address] [place] [address] RBC COUNT 4.83 X10E12/L Normal 3.80-5.[address] [facility] Comment on above: Performed By: #### Mariam BCA, HA1C, THYR, 97216-4 #### [facility] ([id number]) [address] [place] [address] WBC (Bld) [#/Vol] 4.7 10*3/uL Normal 4.0-11.0 [facility] Comment on above: Performed By: #### C BCA, HA1C, THYR, 28335-5 #### [facility] ([id number]) [address] [place] [address] HGB A1C (GLYCO-HGB)on 2023 Glucose [Mass/Vol] 97 mg/dL Normal [facility] Comment on above: Performed By: #### C BCA, HA1C, THYR, 08685-8 #### [facility] ([id number]) [address], [facility] [address] [place] [address] HbA1c (Bld) [Mass fraction] 5.0 % Normal 4.4-5.[address] [facility] Comment on above: Result Comment: NOTE ADA Guidelines Result HgbA1c Normal : less than 5.7 % Prediabetes : 5.7 % to 6.4 % Diabetes : > 6.4 % Use with caution in patients with abnormal hemoglobin variants as the half-life of red blood cells and in vivo glycation rates are affected. Performed By: #### C BCA, HA1C, THYR, 56940-0 #### [facility] ([id number]) [address] [place] [address] THYROID PROFILEon 02-29-2024 Free T4 [Mass/Vol] 0.67 ng/dL Normal 0.61-1.60 [facility] Comment on above: Performed By: #### C BCA, HA1C, THYR, 93515-3 #### [facility] ([id number]) [address] [place] [address] TSH 1.84 uIU/mL Normal 0.49-4.[address] [facility] Comment on above: Performed By: #### C BCA, HA1C, THYR, 00476-2 #### [facility] ([id number]) [address] [facility], [address] [place] [address] Vitamin D+Metabolites [Mass/ Vol]on 02-29-2024 VITAMIN D 25 HYD TOT 32.3 ng/mL Normal 30-[address] [facility] Comment on above: Result Comment: Vitamin D status 25 [place] Vitamin D Deficiency <20 ng/mL Insufficiency 20-29 ng/mL Sufficiency 30-100 ng/mL Toxicity >100 ng/mL NOTE: A pediatric reference range has not been established by the food tray assembler of this kit. The [place] [employer] recommends a Vitamin D level of = or >20ng/mL in infants and children. Performed By: #### C MP, 10818-8, THYR, CBCA, 46469-4 #### [facility] ([id number]) [facility], [address] [place] [address] XR LUMBAR SPINE AP, LATERAL, FLEXION AND [...] on 12/03/2023 10:04 AM Normal [facility] XR SPINE CERVICAL 3 VWS OR [...] on 12/02/2023 7:06 AM Normal [facility] CBC AND AUTO DIFFon 11-30-19 ABSOLUTE BASOPHIL 0.0 X10E9/L Normal 0.0-0.2 [facility] Comment on above: Performed By: #### C EVIN, 49198-9, THYR, CBCA, 86710-4 #### [facility] ([id number]) [address] [address] [place] [address] ABSOLUTE NEUTROPHIL 2.5 X10E9/L Normal 1.5-6.6 [facility] Comment on above: Performed By: #### Mariam CLEARY, 90101-7, THYR, CBCA, 30824-7 #### [facility] ([id number]) [address] [address] [place] [address] Basophils/100 WBC (Bld) 0.5 % Normal [facility] Comment on above: Performed By: #### Mariam CLEARY, 55034-2, THYR, CBCA, 06990-3 #### [facility] ([id number]) [address] [address] [place] [address] Eosinophils (Bld) [#/Vol] 0.0 10*3/uL Normal 0.0-0.[address] [facility] Comment on above: Performed By: #### C EVIN, 80828-6, THYR, CBCA, 83423-0 #### [facility] ([id number]) [address] [address] [place] [address] Eosinophils/100 WBC (Bld) 1.2 % Normal [facility] Comment on above: Performed By: #### C EVIN, 44518-5, THYR, CBCA, 16670-2 #### [facility] ([id number]) [address] [place] [address] Erythrocyte distribution width (RBC) [Ratio] 13.7 % Normal 11.5-15.[address] [facility] Comment on above: Performed By: #### C EVIN, 07397-4, THYR, CBCA, 66103-6 #### [facility] ([id number]) [address], [facility] [address] [place] [address] Hematocrit (Bld) [Volume fraction] 43.0 % Normal 35-[address] [facility] Comment on above: Performed By: #### C EVIN, 10168-5, THYR, CBCA, 65639-5 #### [facility] ([id number]) [address] [place] [address] Hemoglobin (Bld) [Mass/Vol] 15.0 g/dL Normal 11.7-15.[address] [facility] Comment on above: Performed By: #### C EVIN, 08528-5, THYR, CBCA, 36388-7 #### [facility] ([id number]) [address], [facility] [address] [place] [address] Lymphocytes (Bld) [#/Vol] 0.9 10*3/uL Low 1.0-3.[address] [facility] Comment on above: Performed By: #### C EVIN, 15137-3, THYR, CBCA, 69259-6 #### [facility] ([id number]) [address], [facility] [address] [place] [address] Lymphocytes/100 WBC (Bld) 23.6 % Normal [facility] Comment on above: Performed By: #### C EVIN, 60086-2, THYR, CBCA, 62063-3 #### [facility] ([id number]) [address] [place] [address] MCH (RBC) [Entitic mass] 32.2 pg Normal 27-[address] [facility] Comment on above: Performed By: #### C EVIN, 53300-5, THYR, CBCA, 40156-7 #### [facility] ([id number]) [address] [place] [address] MCHC (RBC) [Mass/Vol] 35.0 g/dL Normal 32-[address] [facility] Comment on above: Performed By: #### Mariam CLEARY, 17741-1, THYR, CBCA, 19721-4 #### [facility] ([id number]) [address] [place] [address] MCV (RBC) [Entitic vol] 92 fL Normal 80-[address] [facility] Comment on above: Performed By: #### Mariam CLEARY, 29265-2, THYR, CBCA, 33363-5 #### [facility] ([id number]) [address] [place] [address] Monocytes (Bld) [#/Vol] 0.3 10*3/uL Normal 0-0.[address] [facility] Comment on above: Performed By: #### Mariam CLEARY, 22271-6, THYR, CBCA, 83608-9 #### [facility] ([id number]) [address] [place] [address] Monocytes/100 WBC (Bld) 7.0 % Normal [facility] Comment on above: Performed By: #### Mariam CLEARY, 12076-5, THYR, CBCA, 34817-4 #### [facility] ([id number]) [address] [place] [address] Neutrophils/100 WBC (Bld) 67.7 % Normal [facility] Comment on above: Performed By: #### Mariam CLEARY, 22349-7, THYR, CBCA, 02833-4 #### [facility] ([id number]) [address] [address] [place] [address] Platelet mean volume (Bld) [Entitic vol] 8.7 fL Normal 7-[address] [facility] Comment on above: Performed By: #### C MP, 24510-9, THYR, CBCA, 80018-1 #### [facility] ([id number]) [address] [address] [place] [address] Platelets (Bld) [#/Vol] 186 10*3/uL Normal 150-[address] [facility] Comment on above: Performed By: #### C MP, 34315-9, THYR, CBCA, 72041-6 #### [facility] ([id number]) [address] [address] [place] [address] RBC COUNT 4.67 X10E12/L Normal 3.80-5.[address] [facility] Comment on above: Performed By: #### C EVIN, 30193-1, THYR, CBCA, 48237-6 #### [facility] ([id number]) [address] [address] [place] [address] WBC (Bld) [#/Vol] 3.7 10*3/uL Low 4.0-11.0 [facility] Comment on above: Performed By: #### C MP, 54761-9, THYR, CBCA, 11712-3 #### [facility] ([id number]) [address] [place] [address] COMPREHENSIVE METABOLIC PANE Mika 11-30-2023 Albumin [Mass/Vol] 4.4 g/dL Normal 3.2-5.3 [facility] Comment on above: Performed By: #### C MP, 37422-5, THYR, CBCA, 62273-5 #### [facility] ([id number]) [address] [place] [address] ALP [Catalytic activity/Vol] 65 U/L Normal 39-[address] [facility] Comment on above: Performed By: #### C MP, 39205-0, THYR, CBCA, 91978-9 #### [facility] ([id number]) [address] [place] [address] ALT [Catalytic activity/Vol] 59 U/L High 0-[address] [facility] Comment on above: Performed By: #### C MP, 71466-4, THYR, CBCA, 39095-6 #### [facility] ([id number]) [address] [place] [address] Anion gap [Moles/Vol] 6 mmol/L Normal 5-[address] [facility] Comment on above: Performed By: #### C MP, 86266-3, THYR, CBCA, 48080-6 #### [facility] ([id number]) [address] [place] [address] AST [Catalytic activity/Vol] 31 U/L Normal 0-[address] [facility] Comment on above: Performed By: #### C MP, 51321-7, THYR, CBCA, 14668-1 #### [facility] ([id number]) [address] [place] [address] Bilirubin [Mass/Vol] 0.8 mg/dL Normal 0.3-1.[address] [facility] Comment on above: Performed By: #### C MP, 42620-2, THYR, CBCA, 33635-8 #### [facility] ([id number]) [address] [place] [address] Calcium [Mass/Vol] 9.1 mg/dL Normal 8.5-10.5 [facility] Comment on above: Performed By: #### C MP, 79005-3, THYR, CBCA, 51179-4 #### [facility] ([id number]) [address] [place] [address] Chloride [Moles/Vol] 103 mmol/L Normal 98-[address] [facility] Comment on above: Performed By: #### C EVIN, 99508-7, THYR, CBCA, 30630-6 #### [facility] ([id number]) [address] [place] [address] CO2 [Moles/Vol] 28 mmol/L Normal 22-[address] [facility] Comment on above: Performed By: #### C EVIN, 15062-5, THYR, CBCA, 04225-0 #### [facility] ([id number]) [address] [place] [address] Creatinine [Mass/Vol] 0.86 mg/dL Normal 0.40-1.[address] [facility] Comment on above: Result Comment: METH OD TRACEABLE TO IDMS STANDARD Performed By: #### C EVIN, 06432-2, THYR, CBCA, 17661-7 #### [facility] ([id number]) [address] [place] [address] GFR/1.73 sq M.predicted among non-blacks MDRD (S/P/Bld) [Vol rate/Area] 89 mL/min/{1.73_m2} Normal >[address] [facility] Comment on above: Result Comment: Reported eGFR is based on the CKD-EPI 2020 equation that does not use a race coefficient. Performed By: #### C EVIN, 36916-8, THYR, CBCA, 36860-7 #### [facility] ([id number]) [address] [place] [address] Glucose [Mass/Vol] 97 mg/dL Normal 65-99 [facility] Comment on above: Performed By: #### C MP, 62005-3, THYR, CBCA, 27530-7 #### [facility] ([id number]) [address] [place] [address] Potassium [Moles/Vol] 3.8 mmol/L Normal 3.5-5.[address] [facility] Comment on above: Performed By: #### C EVIN, 58406-8, THYR, CBCA, 55566-5 #### [facility] ([id number]) [address] [place] [address] Protein [Mass/Vol] 6.6 g/dL Normal 6.0-8.0 [facility] Comment on above: Performed By: #### C EVIN, 14001-8, THYR, CBCA, 10653-8 #### [facility] ([id number]) [address] [place] [address] Sodium [Moles/Vol] 137 mmol/L Normal 134-146 [facility] Comment on above: Performed By: #### C EVIN, 65233-9, THYR, CBCA, 58254-6 #### [facility] ([id number]) [address] [place] [address] Urea nitrogen [Mass/Vol] 9 mg/dL Normal 5-[address] [facility] Comment on above: Performed By: #### C EVIN, 27063-2, THYR, CBCA, 01160-0 #### [facility] ([id number]) [address] [place] [address] Lipid 1996 panelon 4 Cholesterol [Mass/Vol] 236 mg/dL High 150-[address] [facility] Comment on above: Performed By: #### C MP, 82592-6, THYR, CBCA, 46761-2 #### [facility] ([id number]) [address] [place] [address] Cholesterol in HDL [Mass/Vol] 48 mg/dL Normal >[address] [facility] Comment on above: Result Comment: HDL <40 mg/dL - High Risk HDL > or = 40mg/dL- Desirable HDL >60 mg/dL - Negative Risk Performed By: #### Mariam CLEARY, 13860-7, THYR, CBCA, 62130-2 #### [facility] ([id number]) [address] [place] [address] Cholesterol in LDL [Mass/Vol] 124 mg/dL Normal <[address] [facility] Comment on above: Result Comment: LDL <100 mg/dL - Desirable LDL >160 mg/dL - High Risk Performed By: #### C EVIN, 54640-9, THYR, CBCA, 47842-7 #### [facility] ([id number]) [address] [place] [address] Cholesterol in VLDL [Mass/Vol] 64 mg/dL High 0-[address] [facility] Comment on above: Performed By: #### C EVIN, 74914-9, THYR, CBCA, 91496-0 #### [facility] ([id number]) [address] [place] [address] CHOLESTEROL:HDL 4.9 Normal 1.0-5.[address] [facility] Comment on above: Performed By: #### C EVIN, 42042-4, THYR, CBCA, 27009-0 #### [facility] ([id number]) [address] [place] [address] Triglyceride [Mass/Vol] 318 mg/dL High 27-[address] [facility] Comment on above: Performed By: #### C EVIN, 16521-7, THYR, CBCA, 70577-1 #### [facility] ([id number]) [address] [place] [address] THYROID PROFILEon 11-30-2023 Free T4 [Mass/Vol] 0.62 ng/dL Normal 0.61-1.60 [facility] Comment on above: Performed By: #### C EVIN, 54081-6, THYR, CBCA, 22555-3 #### [facility] ([id number]) [address] [place] [address] TSH 0.97 uIU/mL Normal 0.49-4.[address] [facility] Comment on above: Performed By: #### C EVIN, 85570-9, THYR, CBCA, 10766-8 #### [facility] ([id number]) [address] [place] [address] Vitamin D+Metabolites [Mass/ Vol]on 11-30-2023 VITAMIN D 25 HYD TOT 25.5 ng/mL Low 30-[address] [facility] Comment on above: Result Comment: Vitamin D status 25 [place] Vitamin D Deficiency <20 ng/mL Insufficiency 20-29 ng/mL Sufficiency 30-100 ng/mL Toxicity >100 ng/mL NOTE: A pediatric reference range has not been established by the food tray assembler of this kit. The [place] [employer] recommends a Vitamin D level of = or >20ng/mL in infants and children. Performed By: #### C EVIN, 46539-0, THYR, CBCA, 30906-5 #### [facility] ([id number]) [address] [place] [address] Covid-19 PCR ([facility]VD[facility])on 09-11 SARS-CoV-2 (COVID-19) RNA MEGAN+probe Ql (Unsp spec) Not detected Normal NOT DETECTED [facility] Comment on above: Result Comment: This test is not yet approved or cleared by the [place] FDA. When there are no FDA-approved or cleared tests available, and other criteria are met, FDA can make tests available under an emergency access mechanism called an Emergency Use Authorization (EUA). The EUA for this test is supported by the Senior Painter of Health and Human Service's (HHS's) declaration [...] consistent with SARS-CoV-2. Performed By: #### C [facility] #### [facility] [address] [place] [address] Dr. Adis Warren Covid-19 PCR ([facility])on 09-11 SARS-CoV-2 (COVID-19) RNA MEGAN+probe Ql (Unsp spec) Not detected Normal NOT DETECTED [facility] Comment on above: Result Comment: This test is not yet approved or cleared by the [place] FDA. When there are no FDA-approved or cleared tests available, and other criteria are met, FDA can make tests available under an emergency access mechanism called an Emergency Use Authorization (EUA). The EUA for this test is supported by the [place] of Health and Human Service's (HHS's) declaration [...] consistent with SARS-CoV-2. Performed By: #### C [facility] #### [facility] [address] [place] [address] Dr. Adis Warren OBSOLETEon 07-04-2021 OBSOLETE Refill (NEUWIL) MARITA MESSINA ([id number]) 1985 F Date Time Provider Department 07/04/21 [...] Encounter Status:Closed by RAYMOND MEDINA on 07/05/21 [facility] OBSOLETEon 05-27-2021 OBSOLETE Refill ([facility]) MARITA MESSINA ([id number]) 1985 F Date Time Provider Department 05/27/21 [...] Encounter Status:Closed by RAYMOND MEDINA on 05/30/21 [facility] OBSOLETEon 04-26-2021 OBSOLETE Refill ([facility]) MARITA MESSINA ([id number]) 1985 F Date Time Provider Department 04/26/[address] [facility] During your visit today, we recorded [...] Encounter Status:Closed by RAYMOND MEDINA on 04/27/21 [facility] Coding Summary.on 05-31-2019 Coding Summary. CODING DATE: 05/31/2019 [facility] STATUS: Home (Routine DC) PAYOR: Medicaid EAPG [...] Andres Date Saved: 05/31/2019 06:25 am Normal [facility] Gynecology Office/Clinic Not freddie 05-20-2019 Gynecology [...] and next steps Ordered: Colposcopy with biopsy [id number] Pathology Tissue Exam Pathology Tissue Exam Follow-up With When Contact Information She BINGHAM CNP In 1 year [email or web address] Additional Instructions: She BINGHAM CNP Only if needed [email or web address] Additional Instructions: Problem List/Past Medical History Ongoing [...] 2: Father and Grandparent. Hyperlipidemia: Father. Normal [facility] Comment on above: Result Comment: Elec tronically Signed By: She BINGHAM CNP\Date and Time Signed: 05/20/19 14:48 EDT Coding Summary.on 05-06-2019 Coding Summary. CODING DATE: 05/06/2019 FINAL [facility] STATUS: Home (Routine DC) PAYOR: Medicaid [...] CphT Date Saved: 05/06/2019 09:14 am Normal [facility] PAP [id number] 05-05-2019 Cytology report Cyto stain Doc (Cvx/Vag) Note Abnormal [facility] Comment on above: Result Comment: TEST S RESULT FLAG UNITS REF RANGE LAB Clinician Provided Cytology Information Source.............[employer] Other..............IUD No. of containers..01 ThinPrep Vial DIAGNOSIS: [A] 01 EPITHELIAL CELL ABNORMALITY. ATYPICAL SQUAMOUS CELLS OF UNDETERMINED SIGNIFICANCE (ASC-US). 01 Satisfactory for evaluation. Endocervical and/or squamous metaplastic cells (endocervical component) are present. 01 Maricarmen Stovall, Record Librarian (ASCP) 01 Jennifer Lopes MD, Pathologist 01 [...] Low,>-Panic High,A-Abnormal,AA-Critical Abnormal Performed at: 01 [facility] [address] [place] [address] Soraya Cabrera MD, Performed By: #### 1 [id number], [id number] #### [facility] [address] [place] [address] HPV 16+18+31+33+35+39+4 5+51+52+56+58+59+68 DNA Probe+sig amp Ql (Cvx) Positive Abnormal Negative [facility] Comment on above: Result Comment: This high-risk HPV test detects thirteen high- risk types (16/18/31/33/35/39/45/51/52/56/58/59/68) without differentiation. Performed at: [facility] [address], [place] [id number] MD Rick Lira Performed at: =G [facility] [address] [id number] MD Rick Lira Performed By: #### 1 [id number], [id number] #### [facility] [address] [place] [address] Physician Read PAPon 019 Pathologist review Noe (Unsp spec) [Interp] Note [facility] Comment on above: Result Comment: TEST S RESULT FLAG UNITS REF RANGE LAB Physician Read Pap Note 01 Performed FLAG LEGEND: L-Low Normal,H-High Normal,LL-Alert Low,HH-Alert High <-Panic Low,>-Panic High,A-Abnormal,AA-Critical Abnormal Performed at: 01 [facility] [address] [address] Soraya Cabrera MD, Performed at: ipsy [facility] [address] [id number] MD Rick Lira Performed By: #### 1 [id number], [id number] #### [facility] [address] [place] [address] Gynecology Office/Clinic Not freddie 04-29-2019 Gynecology Office/Clinic [...] results Ordered: Office Visit Level 3 Est 57912 PAP [id number] w/HPV HR US Pelvis Non-OB Complete 2. Pelvic pain (R10.2: Pelvic and perineal pain) US ordered, will fax to [place] Ordered: Office Visit Level 3 Est 31368 US Pelvis Non-OB Complete Visit for routine [facility] exam (Z01.419: Encounter for gynecological examination (general) [...] Preventive Med 18 to 39 years Est 50348 Follow-up No qualifying data available Problem List/Past [...] type 2: Father and Grandparent. Hyperlipidemia: Father. [facility] Comment on above: Result Comment: Elec tronically Signed By: She BINGHAM CNP\Date and Time Signed: 04/29/19 11:36 EDT PAP [id number] 04-29-2019 Gynecological Body Site CERVIX Normal [facility] Comment on above: Performed By: #### 1 [id number], [id number] #### [facility] [address] [place] [address] Other Patient Information IUD [facility] Comment on above: Performed By: #### 1 [id number], [id number] #### [facility] [address] [place] [address] Vital Signs Date Time Vital Sign Value Performing Clinician Facility 09-15-2024 11:03-0500 Body height 157.5 cm Dorcas Cummingsgwen [facility] Work Phone: [facility] 09-15-2024 11:03-0500 Body mass index (BMI) [Ratio] 40.57 kg/m2 Dorcas Cummingsgwen [facility] Work Phone: [facility] 09-15-2024 11:03-0500 Body weight 100.61 kg Dorcas Kathryn [facility] Work Phone: [facility] 09-15-2024 11:03-0500 Diastolic blood pressure 80 mm[Hg] Dorcas Kathryn [facility] Work Phone: [facility] 09-15-2024 11:03-0500 Heart rate 104 /min Dorcas Kathryn [facility] Work Phone: [facility] 09-15-2024 11:03-0500 SaO2% (BldA) [Mass fraction] 97 % Dorcas Peralta [facility] Work Phone: [facility] 09-15-2024 11:03-0500 Systolic blood pressure 116 mm[Hg] Dorcas Peralta [facility] Work Phone: [facility] 08-04-2024 15:35-0500 Body height 157.5 cm Sherie Maria DPM Work Phone: [facility] 08-04-2024 15:35-0500 Body mass index (BMI) [Ratio] 40.6 kg/m2 Sherie Maria DPM Work Phone: [facility] 08-04-2024 15:35-0500 Body weight 100.7 kg Sherie Maria DPM Work Phone: [facility] 06-16-2024 10:54-0400 Body height 157.5 cm Dorcas Peralta [employer] Work Phone: [facility] 06-16-2024 10:54-0400 Body mass index (BMI) [Ratio] 39.36 kg/m2 Dorcas Peralta [employer] [employer] Work Phone: [facility] 06-16-2024 10:54-0400 Body weight 97.61 kg Dorcas Peralta [employer] [employer] Work Phone: [facility] 06-16-2024 10:54-0400 Diastolic blood pressure 76 mm[Hg] Dorcas Peralta [facility] [employer] Work Phone: [facility] 06-16-2024 10:54-0400 Heart rate 98 /min Dorcas Peralta [employer] [employer] Work Phone: [facility] 06-16-2024 10:54-0400 SaO2% (BldA) [Mass fraction] 97 % Dorcas Peralta [facility] Work Phone: [facility] 06-16-2024 10:54-0400 Systolic blood pressure 120 mm[Hg] Dorcas Peralta [facility] Work Phone: [facility] 05-23-2024 10:24-0400 Body mass index (BMI) [Ratio] 38.99 kg/m2 Dorcas Peralta [employer] Work Phone: [facility] 05-23-2024 10:24-0400 Body weight 96.71 kg Dorcas Peralta [employer] Work Phone: [facility] 05-23-2024 10:24-0400 Diastolic blood pressure 72 mm[Hg] Dorcas Peralta [facility] [employer] Work Phone: [facility] 05-23-2024 10:24-0400 Heart rate 93 /min Dorcas Peralta [employer] Work Phone: [facility] 05-23-2024 10:24-0400 SaO2% (BldA) [Mass fraction] 99 % Dorcas Peralta [facility] [employer] Work Phone: [facility] 05-23-2024 10:24-0400 Systolic blood pressure 122 mm[Hg] Dorcas Peralta [facility] [employer] Work Phone: [facility] 05-14-2024 11:30-0400 Body height 157.5 cm Dorcas Peralta [employer] [employer] Work Phone: [facility] 05-14-2024 11:30-0400 Body mass index (BMI) [Ratio] 39.03 kg/m2 Dorcas Peralta [facility] [employer] Work Phone: [facility] 05-14-2024 11:30-0400 Body weight 96.8 kg Dorcas Peralta [facility] [employer] Work Phone: [facility] 05-14-2024 11:30-0400 Diastolic blood pressure 68 mm[Hg] Dorcas Peralta [employer] Work Phone: [facility] 05-14-2024 11:30-0400 Heart rate 109 /min Dorcas Peralta [employer] Work Phone: [facility] 05-14-2024 11:30-0400 SaO2% (BldA) [Mass fraction] 98 % Dorcas Peralta [facility] [employer] Work Phone: [facility] 05-14-2024 11:30-0400 Systolic blood pressure 110 mm[Hg] Dorcas Peralta [employer] Work Phone: [facility] 11-10-2019 14:27-0500 BMI (Body Mass Index) 35.43 kg/m2 [place], [place] 11-10-2019 14:27-0500 Body Temperature 97.59 [degF] Bradley Simmons [facility] 11-10-2019 14:27-0500 Body weight 90.72 kg Bradley Simmons [facility] , [place] 11-10-2019 14:27-0500 BP Diastolic 65 mm[Hg] Bradley Simmons [facility] [place] 11-10-2019 14:27-0500 BP Systolic 102 mm[Hg] Bradley Simmons [facility] , [place] 11-10-2019 14:27-0500 Height 160 cm Bradley Simmons [facility] [place] 11-10-2019 14:27-0500 Pulse Oximetry 99 % Bradley [facility] [place] Encounters Encounter Date Encounter Type Care Provider Facility Start: 09-22-2024 End: 09-22-2024 Orders Only Dorcas Peralta [facility] Work Phone: [facility] Comment on above: Obstructive sleep ap deann syndrome Start: 09-20-2024 End: 09-22-2024 Refill Jo-Ann Carlson MD Work Phone: [facility] Comment on above: Tremor (Primary Dx) Start: 09-15-2024 End: 09-15-2024 Bamboo flowsheet Dorcas Peralta [facility] Work Phone: [facility] Start: 09-15-2024 End: 09-15-2024 Bamboo flowsheet Dorcas Peralta [employer] [employer] Work Phone: [facility] Start: 09-15-2024 End: 09-15-2024 ambulatory DORCAS PERALTA Not Available Start: 09-15-2024 End: 09-15-2024 Office outpatient visit 25 minutes Dorcas Peralta [facility] Work Phone: [facility] Comment on above: Morbid (severe) obes ity due to excess calories (CMS/HCC) (Primary Dx); BOGDAN (obstructive sleep apnea); Hepatic steatosis; Mixed hyperlipidemia (CMS/HCC); Elevated liver enzymes Start: 09-01-2024 End: 09-01-2024 ambulatory Sana Radford MD Facility:[facility] Start: 08-13-2024 End: 08-13-2024 ambulatory Caitlyn Sparrow MD Facility:[facility] Start: 08-04-2024 End: 08-04-2024 Office outpatient new 30 minutes Sherie Maria DPM Work Phone: [facility] Comment on above: Tinea pedis of both feet (Primary Dx); Chronic dermatitis of feet; Dermatophytosis of nail; Pain around toenail, right foot; Pain around toenail, left foot Start: 08-04-2024 End: 08-04-2024 ambulatory SHERIE MARIA Not Available Start: 08-04-2024 End: 08-04-2024 Bamboo flowsheet Sherie Maria DPM Work Phone: [facility] Start: 08-04-2024 End: 08-04-2024 Bamboo flowsheet Sherie Maria DPM Work Phone: [facility] Start: 07-04-2024 End: 07-04-2024 ambulatory [facility] Start: 06-16-2024 End: 06-16-2024 Bamboo flowsheet Dorcas Peralta [employer] Work Phone: [facility] Start: 06-16-2024 End: 06-16-2024 Bamboo flowsheet Dorcas Peralta [employer] Work Phone: [facility] Start: 06-16-2024 [...] 05-29-2024 Refill Nehal Alvarado LPN Work Phone: [facility] Comment on above: Gastroesophageal ref lux disease without esophagitis Rash (Primary Dx); Obesity, Class II, BMI 35-39.9 Start: 05-23-2024 End: 05-23-2024 Office outpatient visit 25 minutes Dorcas Peralta [employer] Work Phone: [facility] Comment on above: Folliculitis (Primar y Dx); Obesity, Class II, BMI 35-39.9; Morbid (severe) obesity due to excess calories ([facility]); Gastro-esophageal reflux disease without esophagitis; Body mass index (BMI) 39.0-39.9, adult; Bipolar disorder, unspecified ([facility]) Start: 05-23-2024 End: 05-23-2024 ambulatory DORCAS PERALTA Not Available Start: 05-22-2024 End: 05-22-2024 Orders Only Dorcas Peralta [employer] Work Phone: [facility] Comment on above: Dermatitis (Primary Dx) Start: 05-19-2024 End: 05-19-2024 ambulatory [facility] Start: 05-19-2024 End: 05-19-2024 [facility] Start: 05-14-2024 End: 05-14-2024 Bamboo flowsheet Dorcas Peralta [employer] Work Phone: [facility] Start: 05-14-2024 End: 05-14-2024 Bamboo flowsheet Dorcas Peralta [employer] Work Phone: [facility] Start: 05-14-2024 End: 05-14-2024 Office outpatient new 45 minutes Dorcas Peralta [employer] Work Phone: [facility] Comment on above: Obesity, Class II, B NE 35-39.9 (Primary Dx); Encounter to establish care Start: 05-14-2024 End: 05-14-2024 ambulatory DORCAS PERALTA Not Available Start: 05-05-2024 End: 05-05-2024 ambulatory [facility] Start: 03-24-2024 End: 03-24-2024 ambulatory CAITLYN Griffiths KYARA [facility] Start: 03-23-2024 End: 03-24-2024 Emergency department patient visit LUIZA ORDOÑEZ [facility] Start: 03-23-2024 End: 03-23-2024 Emergency department patient visit CAITLYN Griffiths KYARA [facility] Start: 03-10-2024 End: 04-10-2024 ambulatory [facility] Start: 03-08-2024 End: 03-08-2024 Emergency department patient visit CAITLYN Griffiths KYARA [facility] Start: 03-03-2024 End: 03-03-2024 ambulatory Caitlyn Sparrow MD Facility:[facility] Start: 02-29-2024 End: 02-29-2024 ambulatory CAITLYN Griffiths [facility] Start: 02-18-2024 End: 02-18-2024 ambulatory Caitlyn Sparrow MD Facility:[facility] Start: 02-11-2024 End: 03-10-2024 ambulatory [facility] Start: 01-28-2024 End: 01-28-2024 ambulatory Caitlyn Sparrow MD Facility:[facility] Start: 01-23-2024 End: 02-09-2024 ambulatory [facility] Start: 11-30-2023 End: 11-30-2023 ambulatory [facility] Start: 11-30-2023 Encounter for genera l adult medical examination without abnormal findings [facility] Start: 08-09-2023 Refill Raymond Pierre ph, [...] 02-23-2022 End: 02-23-2022 ambulatory Karel Elaine Other [facility] Other Start: 02-23-2022 Telephone encounter Karel Elaine [facility] Start: 01-09-2022 Refill Raymond Pierre ph, MD Work Phone: Neurology Comment on above: Refill Request Start: 01-04-2022 End: 01-04-2022 ambulatory Karel Elaine Other [facility] Other Start: 01-04-2022 Telephone encounter Karel Elaine [facility] Start: 12-12-2021 End: 12-12-2021 ambulatory Karel Elaine Other [facility] Other Start: 12-12-2021 Telephone encounter Karel Elaine [facility] Start: 11-30-2021 End: 12-01-[address] MUNIRA DEAL Facility:[facility] Start: 11-16-2021 End: 11-16-2021 ambulatory Karel Elaine Other [facility] Other Start: 11-16-2021 Telephone encounter Karel Elaine [facility] Start: 10-11-2021 Encounter for preprocedural laboratory examination DR MUNIRA DEAL [facility] Start: 10-11-2021 End: 10-11-[address] [...] 08-03-2021 End: 08-03-2021 ambulatory Karel Elaine Other [facility] Other Start: 08-03-2021 Telephone encounter Karel Elaine [facility] Start: 07-28-2021 End: 07-28-2021 ambulatory Karel Elaien Other [facility] Other Start: 07-28-2021 Telephone encounter Karel Eliane [facility] Start: 11-10-2019 End: 11-11-2019 Patient encounter procedure [facility] Start: 11-10-2019 End: 11-10-2019 Subsequent hospital visit by physician Bradley Simmons Work Phone: [facility] Comment on above: Arrived Procedures Date Procedure Procedure Detail Performing Clinician Start: 10-03-2021 Adult depression screening assessment Raymond Medina MD Work Phone: Plan of Treatment Date Care Activity Detail Author Start: 2036 Shingles Vaccine (1 of 2) Shingles Vaccine (1 of 2) [facility] [place] Start: 06-10-2025 Influenza vaccination Influenza Vacc ine (#1) [facility] Comment on above: Postponed from 05/11 (Patient Refused) Start: 12-15-2024 End: 12-15-2024 Patient encounter procedure 12/15/2024 11:00 AM EDT Office Visit [facility] [address] [place] [phone] Dorcas Peralta NP [address] [place] [id number] [facility] Start: 11-08-2024 Medicare Annual Well ness (AWV) Medicare Annual Wellness (AWV) [facility] Start: 10-27-2024 End: 10-27-2024 Patient encounter procedure 10/27/2024 4:15 PM EST Office Visit [facility] [address] [place] [phone] Sherie Maria, JOSE [address] [place] [address] [facility] Start: 09-15-2024 End: 09-15-2024 Patient encounter procedure 09/15/2024 11:00 AM EST Office Visit [facility] [address] [facility] [place] [phone] Dorcas Peralta NP [address] [facility] [place] [address] [facility] Start: 08-04-2024 End: 08-04-2024 Patient encounter procedure 08/04/2024 3:30 PM EST Office Visit [facility] [address] [place] [phone] Sherie Maria DPM [address] [place] [address] Arrived [facility] Comment on above: Arrived Start: 06-16-2024 End: 06-16-2024 Patient encounter procedure [facility] Comment on above: Arrived Start: 05-14-2024 End: 05-14-2024 Patient encounter procedure 05/14/2024 11:30 AM EDT Office Visit [facility] [address] [facility] [place] [phone] Dorcas Peralta NP [address] [facility] [place] [address] Arrived [facility] Comment on above: Arrived Start: 05-11-2024 Influenza vaccination Influenza Vacc ine (#1) [facility] Start: 05-11-2023 Influenza vaccination C [facility] Start: 10-03-2022 Adult depression screening assessment DEPRESSION SCREENING [facility] Start: 09-10-2022 DEPRESSION ASSESSMENT DEPRESSION ASS ESSMENT [facility] Start: 05-11-2022 Influenza vaccination C [facility] Start: 03-29-2020 End: 03-29-2020 Appointment 03/29/2020 Appointment General Surgery Bradley Simmons MD [facility] [place] [address] [phone] [facility] Start: 05-11-2019 Influenza vaccination Flu vaccine (# 1) [place], [place] Start: 2016 HPV TESTING HPV TESTING [facility] Start: 2016 Screening for malign ant neoplasm of cervix [facility] Start: 2007 Cervical cancer screen Cervical canc er screen [place] Start: 2007 [address]AP [address] PAP TESTING [facility] Start: 2007 Screening for malign ant neoplasm of cervix [facility] Start: 2005 Urine microalbumin profile DTAP,TDAP,TD (1 - Tdap) [facility] Start: 2004 HEPATITIS C SCREENING HEPATITIS C [facility] Start: 2004 Hepatitis C screening Hepatitis C [facility] Start: 2004 HIV SCREENING HIV SCREENING [facility] Start: 2004 HIV screening HIV Screening [facility] Start: 2001 HIV screen HIV screen [place], [place] Start: 12-25-1997 Urine microalbumin profile DTaP,Tdap,Td Vaccine (6 - Tdap) [facility] Start: 1997 DTaP/Tdap/Td vaccine (1 - Tdap) DTaP/Tdap/Td vaccine (1 - Tdap) [place] Start: 1991 COVID-19 VACCINE (1) COVID-19 VACCIN E (1) [facility] Start: 1987 Varicella vaccine (1 of 2 - 2-dose childhood series) Varicella vaccine (1 of 2 - 2-dose childhood series) [place] Start: 01-14-1987 COVID-19 VACCINE (#1) COVID-19 VACCI NE (#1) [facility] Start: 1986 HEPATITIS B (1 of 3 - 3-dose series) HEPATITIS B (1 of 3 - 3-dose series) [facility] Start: 1986 Medicare Annual Well ness (AWV) Medicare Annual Wellness (AWV) [facility] Immunizations Immunization Date Immunization Notes Care Provider Fa kamron 05-15-2023 Influenza, injectabl e, Madin Renetta Canine Kidney, quadrivalent with preservative Dorcas Kampfer [employer] Work Phone: [facility] 05-15-2023 influenza virus vacc ine, unspecified formulation Dorcas Kampfer [employer] Work Phone: [facility] 07-13-2022 Influenza, injectabl e, Madin [place] Canine Kidney, preservative free, quadrivalent Dorcas Kampfer [employer] Work Phone: [facility] 09-13-2021 influenza, injectabl e, quadrivalent, preservative free Dorcas Kampfer [employer] Work Phone: [facility] 08-22-2019 influenza, injectabl e, quadrivalent, contains preservative Dorcas Kampfer [employer] Work Phone: [facility] 08-22-2019 influenza virus vacc ine, unspecified formulation Raymond Medina MD Work Phone: [facility] 05-25-1998 hepatitis B vaccine, pediatric or pediatric/adolescent dosage Dorcas Kampfer [employer] Work Phone: [facility] 12-24-1997 hepatitis B vaccine, pediatric or pediatric/adolescent dosage Dorcas Kampfer [employer] Work Phone: [facility] 12-24-1997 TD(adult) unspecifie d formulation Dorcas Kampfer [employer] Work Phone: [facility] 11-19-1997 hepatitis B vaccine, pediatric or pediatric/adolescent dosage Dorcas Kampfer [employer] Work Phone: [facility] 11-19-1997 measles, mumps and rubella virus vaccine Dorcasdwight Cummingspfer [employer] Work Phone: [facility] 10-26-1987 diphtheria, tetanus toxoids and pertussis vaccine Dorcas Kampfer [employer] Work Phone: [facility] 10-26-1987 measles, mumps and rubella virus vaccine Dorcas Kampfer [employer] Work Phone: [facility] 10-26-1987 trivalent poliovirus vaccine, live, oral Dorcas Kampfer [employer] Work Phone: [facility] 02-17-1987 diphtheria, tetanus toxoids and pertussis vaccine Dorcas Kampfer [employer] Work Phone: [facility] 02-17-1987 trivalent poliovirus vaccine, live, oral Dorcas Kampfer [employer] Work Phone: [facility] 1986 diphtheria, tetanus toxoids and pertussis vaccine Dorcas Kampfer [employer] Work Phone: [facility] 1986 trivalent poliovirus vaccine, live, oral Dorcas Kampfer [employer] Work Phone: [facility] 1986 diphtheria, tetanus toxoids and pertussis vaccine Dorcas Kampfer [employer] Work Phone: [facility] 1986 trivalent poliovirus vaccine, live, oral Dorcas Kampfer [employer] Work Phone: [facility] Payers Date Payer Category Payer Medicare [id number] [address] [facility] MEDICAID [id number] 2019-Present [phone] [address] [place] [address] Medicaid [id number] 2019 Medicaid [id number] .[id number] 2019 Medicare MEDICARE MEDICAR E A AND B [id number] 2019-Present [phone] [address] [address] [place] [address] Medicare [id number] [id number] 2019 Medicare [id number] [id number] .[id number] 2014 Medicaid MEDICAID [facility] DEPT OF JOB xxxxxxxxxxxx 2014-Present [phone] [address] [place] [address] xxxxxxxxxxxx [id number] .[id number] 2014 Medicare MEDICARE MEDICAR E PART A AND B xxxxxxxxxxx 2014-Present [phone] [place] [address] xxxxxxxxxxx [id number] .100522.315 1986 Unknown [id number] 2.16.840.1.008156.3.579.2.177 1986 Unknown [id number] 2.16.840.1.421849.3.579.2.593 1986 Unknown [id number] 2.16.840.1.883902.3.579.2.593 1986 Unknown [id number] 2.16.840.1.008452.3.579.2.593 1986 Unknown [id number] 2.16.840.1.041857.3.579.2.593 1986 Unknown [id number] 2.16.840.1.423345.3.579.2.593 1986 Unknown [id number] 2.16.840.1.660519.3.579.2.593 1986 Unknown [id number] 2.16.840.1.886063.3.579.2.593 1986 Unknown [id number] 2.16.840.1.651564.3.579.2.593 1986 Unknown [id number] 2.16.840.1.630985.3.579.2.593 1986 Unknown [id number] 2.16.840.1.161452.3.579.2.196 1986 Unknown [id number] 2.16.840.1.136562.3.579.2.196 1986 Unknown [id number] 2.16.840.1.094142.3.579.2.196 1986 Unknown [id number] 2.16.840.1.129127.3.579.2.196 1986 Unknown [id number] 2.16.840.1.086666.3.579.2.196 1986 Unknown [id number] 2.16.840.1.630875.3.579.2.196 1986 Unknown [id number] 2.16.840.1.444857.3.579.2.125 9 1986 Unknown [id number] 2.16.840.1.193963.3.579.2.125 9 1986 Unknown [id number] 2.16.840.1.221344.3.579.2.125 9 1986 Unknown [id number] 2.16.840.1.948550.3.579.2.125 9 1986 Unknown [id number] 2.16.840.1.582150.3.579.2.125 9 1986 Unknown [id number] 2.16.840.1.446076.3.579.2.128 6 1986 Unknown [id number] 2.16.840.1.007734.3.579.2.128 6 1986 Unknown [id number] 2.16.840.1.219622.3.579.2.128 6 1986 Unknown [id number] 2.16.840.1.730936.3.579.2.128 6 1986 Unknown [id number] 2.16.840.1.778814.3.579.2.128 6 1986 Unknown [id number] 2.16.840.1.231194.3.579.2.128 6 1986 Unknown [id number] 2.16.840.1.279076.3.579.2.128 6 1986 Unknown [id number] 2.16.840.1.667888.3.579.2.128 6 1986 Unknown [id number] 2.16.840.1.420571.3.579.2.128 6 1986 Unknown [id number] 2.16.840.1.911618.3.579.2.128 6 1986 Unknown [id number] 2.16.840.1.788066.3.579.2.128 6 1986 Unknown [id number] 2.16.840.1.578367.3.579.2.128 6 1986 Unknown [id number] 2.16.840.1.012443.3.579.2.128 6 1986 Unknown [id number] 2.16.840.1.189562.3.579.2.128 6 1986 Unknown [id number] 2.16.840.1.372083.3.579.2.128 6 1986 Unknown [id number] 2.16.840.1.506797.3.579.2.128 6 1986 Unknown [id number] 2.16.840.1.572207.3.579.2.128 6 1986 Unknown [id number] 2.16.840.1.959846.3.579.2.128 6 1986 Unknown [id number] 2.16.840.1.167359.3.579.2.128 6 1959 Medicaid [id number] 1958 Medicare [id number] Social History Date Type Detail Facility Start: 11-25-2018 End: 11-10-2019 Tobacco smoking status MOIS Never smoker [facility] Start: 11-10-2019 End: 09-15-2024 Alcohol intake Current drinker of alcohol (finding) [place] Start: 11-10-2019 Alcohol Comment [place], [place] Start: 1986 Sex Assigned At Not on file [place], [place] Start: 11-25-2018 End: 05-14-2024 Tobacco use and exposure Smokeless tobacco non-user [facility] Start: 11-25-2018 History SDOH Alcohol Comment [facility] Start: 04-21-2019 End: 09-14-[address] [facility] Start: 04-21-2019 End: 09-14-2024 History of Social function [facility] Adult Depression Screening Assessment 4 [facility] Start: 05-14-2024 Tobacco smoking [address] [facility] [facility] Smokes tobacco daily [facility] Start: 05-14-2024 Tobacco Comment Vapes daily [facility] Start: 05-14-2024 Alcohol Comment caffeine intake: 12 oz coffee daily [facility] Tobacco smoking stat us [facility] Tobacco smoking consumption unknown [facility] Do you belong to any clubs or organizations such as taoist groups, unions, fraternal or athletic groups, or [...] got money to buy more. Never true [facility] Clinical Notes 09-15-2021 to 09-15-2024 Dorcas Peralta [...] have her cholesterol levels checked tomorrow. Her tar leveler has expressed concern over her fluctuating liver enzyme levels and has ordered a retest. She has not undergone any extensive workup for her liver, only lab tests. Her liver enzyme levels have shown variability in the past. She is uncertain if she has fatty liver disease. She has been prescribed a german for a toenail fungus, which has proven [...] tablet 1 tablet, Every 6 hours PRN [place] Gate-3 Fatty Acids (FISH OIL OMEGA-3 PO) 2 [...] agreeable to this. documented in this encounter [facility] 08-11-2024 Note Patient Education Ma terials Name: MayuriMarita mariscal Adriana Current Date: 08/11/2024 16:18:15 [facility] : 1985 The following sheet(s) are the [...] breast self-exam (BSE). These experts include the [employer] [employer] and the [place] [employer]. Some experts [...] This means they are not cancer. ? [id number] [employer]. All rights reserved. This information is not [...] prevent urine, gas, or stool leakage. ? [id number] [employer]. All rights reserved. This information is not intended as a substitute fo (more content not included)... [facility] 08-04-2024 History of Present illness Narrative Subjective Patient ID: Marita Messina is a 39 y.o. female who presents for Fungus (Pt is here today for fungal nails, first noticed about 1 yr ago. Also athlete's foot BL. She has tried OTC topical fungal german, no change noted. /SS:8 ). HPI Initial [...] and not practical. Patient typically has toenail german on a constant basis. Also complains of [...] (six) hours if needed, Disp: , Rfl: South Gate-3 Fatty Acids (FISH OIL OMEGA-3 PO), Take [...] most recent hepatic enzymes elevated (May 2024). [place] agreement to proceed with topical care measures: [...] Maria DPM documented in this encounter [facility] 08-04-2024 Instructions Sherie Maria DPM - 08/04/2024 3:30 PM EST As noted documented in this encounter [facility] 06-16-2024 History of Present illness Narrative Images [...] 1 tablet, Oral, Every 6 hours PRN [place]-3 Fatty Acids (FISH OIL OMEGA-3 PO) 2 [...] [facility] accredited and rated highly by the [employer]. Prescription sent to pharmacy Bipolar disorder in full remission, most recent episode unspecified type (CMS/HCC) -Followed by psych Mixed dyslipidemia (CMS/HCC) -Followed by cardiology documented in this encounter [facility] 05-23-2024 History of Present illness Narrative Images [...] Morbid (severe) obesity due to excess calories ([facility]) Gastro-esophageal reflux disease without esophagitis Body mass index (BMI) 39.0-39.9, adult Bipolar disorder, unspecified ([facility]) documented in this encounter [facility] 05-22-2024 History of Present illness Narrative klo documented in this encounter [facility] 05-14-2024 History of Present illness Narrative Marita [...] be refilled. documented in this encounter [facility] 08-09-2023 Miscellaneous Notes Please see pended medication. Pharmacy linked. Last ordered 03/09/2023. Ashtyn Perez MA documented in this encounter [facility] 03-09-2023 Miscellaneous Notes Please see pended medication. Pharmacy linked. Last ordered 10/25/2022. Ashtyn Perez MA documented in this encounter [facility] 07-11-2022 Note CONSULTATION PROCEDURE DATE: 07/11/2022 PREOPERATIVE [...] be followed up in the office. [facility] 07-11-2022 Note CONSULTATION CONSULTATION DATE: 07/11/2022 CHIEF COMPLAINT: Trapezius and upper back pain. HISTORY OF PRESENT ILLNESS: This is a 36-year-old female who is known to the [facility]. The patient, in October of this year, had a rhizotomy radiofrequency ablation along her cervical spine. This has afforded the patient significant improvement. 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 CC: Caitlyn Sparrow M.D. [facility] 05-23-2022 Miscellaneous Notes Please see pended medication. Pharmacy linked. Last ordered 10/20/2021. Ashtyn Perez Ma documented in this encounter [facility] 03-08-2022 Note CONSULTATION CONSULTATION DATE: 03/08/2022 HISTORY [...] Patient does agree with plan of care. [facility] Signed and Approved by: LUDA RODRIGUEZ . 03/09/2022 13:38:00 [facility] 01-09-2022 Miscellaneous Notes Please see pended medication. Pharmacy linked. Last ordered 07/05/2021. Ashtyn Perez Ma documented in this encounter [facility] 11-30-2021 Note CONSULTATION PAIN MANAGEMENT CONSULTATION HISTORY [...] time, and patient agrees to this plan. [facility] Signed and Approved by: LUDA RODRIGUEZ . 12/01/2021 12:26:00 [facility] 09-15-2021 Note [facility] [place], [place] NAME: MARITA MESSINA DATE OF : MEDICAL REC#: [id number] TECHNICAL PUBLICATIONS WRITER: [id number] LILIANA DAWKINS ADMIT DATE: 09/15/2021 12:21:00 ASSOCIATE PROFESSOR OF LIBRARY SCIENCE DATE: 09/16/2021 11:00 DICTATING PHYSICIAN: LUDA RODRIGUEZ [...] by: LUDA RODRIGUEZ . 09/25/2021 23:23:00 [facility] Evaluation note Diagnosis Excessive physiologic tremor Essential and other specified forms of tremor [facility] [employer] [employer] Other Evaluation note* Diagnosis Daytime sleepiness Narcolepsy without cataplexy [facility] Diagnosis Daytime sleepiness Narcolepsy without cataplexy [facility] Diagnosis Daytime sleepiness Narcolepsy without cataplexy [facility] Morbid (severe) obesity due to excess calories ([facility])- Primary Bipolar disorder in full remission, most recent episode unspecified type (CMS/HCC) Mixed dyslipidemia ([facility]) documented in this encounter [facility]* Diagnosis Tinea pedis of both feet- Primary Chronic dermatitis of feet Contact dermatitis and other eczema, due to unspecified cause Dermatophytosis of nail Pain around toenail, right foot Pain around toenail, left foot documented in this encounter [facility]* Diagnosis Dermatitis- Primary Contact dermatitis and other eczema, due to unspecified cause documented in this encounter [facility]* Diagnosis Folliculitis- Primary Other specified disease of hair and hair follicles Obesity, Class II, BMI 35-39.9 Morbid (severe) obesity due to excess calories (CMS/HCC) Gastro-esophageal reflux disease without esophagitis Body mass index (BMI) 39.0-39.9, adult Bipolar disorder, unspecified (CMS/HCC) Bipolar disorder, unspecified documented in this encounter [facility]* Diagnosis Gastroesophageal reflux disease without esophagitis Esophageal reflux documented in this encounter [facility]* Diagnosis Obesity, Class II, BMI 35-39.9- Primary Encounter to establish care [facility] Diagnosis Rash- Primary Rash and other nonspecific skin eruption Obesity, Class II, BMI 35-39.9 documented in this encounter [facility]* Diagnosis Morbid (severe) obesity due to excess calories (CMS/HCC)- Primary BOGDAN (obstructive sleep apnea) Obstructive sleep apnea (adult) (pediatric) Hepatic steatosis Other chronic nonalcoholic liver disease Mixed hyperlipidemia (CMS/HCC) Mixed hyperlipidemia Elevated liver enzymes Other nonspecific abnormal serum enzyme levels documented in this encounter [facility]* Diagnosis Obstructive sleep apnea syndrome Obstructive sleep apnea (adult) (pediatric) documented in this encounter [facility]* Diagnosis Tremor- Primary Abnormal involuntary movements documented in this encounter [facility] Summary Purpose Family History No Family History Records FoundNo Family History Records FoundNo Family History Records FoundNo Family History Records FoundNo Family History Records FoundNo Family History Records FoundNo Family History Records Found Advance Directives Documents on File Type Date Recorded Patient Staging Technician Expl anation Advance Directives and Living Will Power of House Player History of Present Illness * Bradley Simmons MD - 11/10/2019 2:00 PM EST [facility] Evaluation PATIENT NAME: Marita Messina MRN NUMBER: [id number] DATE OF : 1985 PHONE NUMBER: [phone] PRIMARY CARE PHYSICIAN: No primary care provider [...] umbilical and above belly buton also at [facility] about 2 years ago HYSTERECTOMY TUMOR REMOVAL Left 2012 left thumb at [facility] Family History: Family History Problem Relation [...] [facility] May [facility] and [...] and content) DATE CREATED AUTHOR [facility] DATE CREATED AUTHOR AUTHOR'S ORGANIZ ATION 11/11/2019 [facility] DATE CREATED AUTHOR AUTHOR'S ORGANIZ ATION 12/01/2021 [facility] DATE CREATED AUTHOR AUTHOR'S ORGANIZ ATION 09/02/2022 [facility] DATE CREATED AUTHOR AUTHOR'S ORGANIZ ATION 09/05/2024 [facility] DATE CREATED AUTHOR AUTHOR'S ORGANIZ ATION 09/21/2024 [facility] DATE CREATED AUTHOR AUTHOR'S ORGANIZ ATION 09/21/2024 [facility] Source Comments (unrecognize d section and content) In the event this informatio n is protected by the Federal Confidentiality of Alcohol and Drug Abuse Patient Records regulations: The Federal rules restrict any use of the information to criminally investigate or prosecute any alcohol or drug abuse patient.[facility] the event this information is protected by the Federal Confidentiality of Alcohol and Drug Abuse Patient Records regulations: The Federal rules restrict any use of the information to criminally investigate or prosecute any alcohol or drug abuse patient.[facility] the event this information is protected by the Federal Confidentiality of Alcohol and Drug Abuse Patient Records regulations: The Federal rules restrict any use of the information to criminally investigate or prosecute any alcohol or drug abuse patient.[facility] the event this information is protected by the Federal Confidentiality of Alcohol and Drug Abuse Patient Records regulations: The Federal rules restrict any use of the information to criminally investigate or prosecute any alcohol or drug abuse patient.[facility] Reason for Visit (unrecogniz ed section and content) Reason Onset Date Comments Refill Request 01/09/2022 Reason Onset Date Comments Refill Request 03/09/2023 Reason Onset Date Comments Refill Request 08/09/2023 Reason Comments Follow-up Reason Comments Fungus Pt is here today for fungal nails, first noticed about 1 yr ago. Also athlete's foot BL. She has tried OTC topical fungal german, no change noted. SS:8 Reason Comments Rash Reason Onset Date Comments Med Refill 05/26/2024 Reason Comments Establish Care Weight Loss Reason Comments Weight Check Reason Onset Date Comments Med Refill 09/20/2024 Care Teams (unrecognized sec tion and content) 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 Start Date End Date Caitlyn Sparrow [address], [place] [id number] PCP - General Internal Medicine 11/25/18 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 Start Date End Date Caitlyn Sparrow [address] [place] [address] PCP - General Internal Medicine 11/25/18 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 Start Date End Date Caitlyn Sparrow [address] [place] [address] PCP - General Internal Medicine 11/25/18 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 Start Date End Date Caitlyn Sparrow [address] [place] [address] PCP - General Internal Medicine 11/25/18 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 Start Date End Date Jo-Ann Carlson MD [address] [place] [address] PCP - General Family Medicine 05/09/24 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 Start Date End Date Jo-Ann Carlson MD [address] [place] [address] PCP - General Family Medicine 05/09/24 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 Start Date End Date Jo-Ann Carlson MD [address] [place] [address] PCP - General Family Medicine 05/09/24 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 Start Date End Date Jo-Ann Carlson MD [address] [place] [address] PCP - General Family Medicine 05/09/24 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 Start Date End Date Jo-Ann Carlson MD [address] [place] [address] PCP - General Family Medicine 05/09/24 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 Start Date End Date Jo-Ann Carlson MD [address] [place] [address] PCP - General Family Medicine 05/09/24 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 Start Date End Date Jo-Ann Carlson MD [address] [place] [address] PCP - General Family Medicine 05/09/24 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 Start Date End Date Jo-Ann Carlson MD [address] [place] [address] PCP - General Family Medicine 05/09/24 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 Start Date End Date Jo-Ann Carlson MD [address] [place] [address] PCP - General Family Medicine 05/09/24 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 [employer] [facility]. provides no warranty or guarantee of the accuracy or completeness of information in this document.
[2024-10-13 09:26] VITALS: BP 130/84; PULSE 83; TEMP 36.3; O2SAT 98
[2024-10-13 09:51] VITALS: BP 124/64; BP 124/65; PULSE 89; PULSE 90; O2SAT 98; O2SAT 99
[2024-10-13] MEDS: LIDOCAINE HCL 2% 400 MG/20 ML MDV INJ (09:55)
[2024-10-13] MEDS: BUPIVACAINE HCL 0.25% PF 25 MG/10 ML VIAL 6 ML INJ (09:55)
--- NOTE | 2024-10-13 10:04 | W.PM.PROCNOT ---
Date of procedure: 10/13/24 Pre-op diagnosis: Pain due to cervical spondylosis without myelopathy Post-op diagnosis: same as pre-op Procedure: Procedure: Bilateral C3-4, 5-6 medial branch block Medications: Bupivacaine 0.25% 6cc The patient was seen and examined in the preoperative holding area.? The informed consent was obtained and placed on the chart.? The patient was brought to the medical procedure unit and placed in the prone position.? A timeout was completed verifying correct patient, procedure site, positioning, plan, and special equipment.? Using aseptic technique, the needle was placed at left C3.? Under direct fluoroscopic visualization, a Quincke tip needle was advanced to the midpoint of the waist of the articular pillar at the respective medial branch segment. The above-mentioned injectate was placed in a 1 mL aliquot proceeded by negative aspiration.? The needle was removed.? The procedure was completed at all left C4, 5, 6. The same procedure, at the same levels, was then completed on the right side. Insertion site was covered.? Patient was taken to the postprocedural recovery area and monitored for an appropriate length of time before found suitable for discharge in the accompaniment of a responsible adult. Anesthesia: Local Surgeon: Sana Radford Pathology: none sent Condition: stable Disposition: no change
== END 2024-10-13 09:58 | disposition home or self-care (01) ==
LOC: SURGOUT 08:57
PROVIDERS: PCP Internal Medicine; Visit Provider Anesthesiology
DX: M47.812 Spondylosis without myelopathy or radiculopathy, cervical region (principal)
CPT/HCPCS: 64490; 64491; J0665

== ENCOUNTER 2024-10-16 10:50 | Outpatient (OUT) | payer MEDICARE, MEDICAID, SELFPAY ==
--- OUTSIDE RECORDS SUMMARY | 2024-10-16 10:54 | XMS_ITS | CCD ---
Author Organization [facility] Care Team Providers Care [employer] Feeder Name Role Phone SIMMONSBRADLEY Referring Unavailable Unavailable [...] MUNIRA Avalos Admitting Unavailable KYARA, DR CAITLYN rGiffiths Primary Care Unavail able TOYIN, DR MUNIRA [...] Care Unavail able LUDA RODRIGUEZ Consulting Unavailable TOIYN, DR MUNIRA Avalos Admitting Unavailable Kyara, [facility] Robyn CLEMONS, Jo-Ann [facility] Provider Kyara CLEMONS, Caitlyn [facility] Ness vajax Thomas PA-C, Dorcas Stewart Attending Christian Thomas PA-C, Dorcas Stewart Attending Christian Sparrow MD, [facility] Ness kolbyilable Kyara CLEMONS, [facility] Ness wilfredoble Malina CLEMONS, Sana Doyle Attending Unavailable Malina CLEMONS, Sana Doyle Attending Unavailable Kyara CLEMONS, [facility] Ness wilfred[place]le Kyara CLEMONS, [facility] Ness wilfred[place]le Malina CLEMONS, Sana Doyle Attending Unavailable Kyara CLEMONS, [facility] Ness wilfred[place]le Malina CLEMONS, Sana Doyle [...] Primary Care Unavailable Robyn CLEMONS, Jo-Ann Unavailable [phone] Allergies Allergy Classification Reported Allergen(s) Allergy Type Date of Onset Reaction(s) Facility (20 sources) Acetaminophen / HYDROcodone; Translations: [HYDROCODONE-ACETA MINOPHEN] Drug Allergy 10-09-2019 [place], [place] (9 sources) Acetaminophen / HYDROcodone; Translations: [Vicodin] Drug Allergy 09-10-2014 [facility] Medications Current Medications Medication Drug Class(es) Dates Sig (Normalized) Sig (Original) Aimovig 140 MG/ML (6 sources) inject 140 mg by subcutaneous injection every month Aimovig 140 MG/ML as directed Subcutaneous monthly Active [id number] 200 actuat albuterol 0.09 mg/actuat metered dose [...] morning. Active take 1 capsule by mo [facility] every twenty-four hours Vraylar 4.5 MG [...] 05/23/2024 06/02/2024 Active take 1 capsule by [facility] every twenty-four hours Doxycycline Hyclate 100 MG [...] Start: 11-20-2018 take 1 capsule by mo [facility] once daily FLUoxetine HCl (PROZAC) 40 [...] time(s) a day for 30 days Active [place]-3 Fatty Acids (FISH OIL [place]-3 PO) (10 sources) take 2 tablets by mouth twice daily in the morning [place]-3 Fatty Acids (FISH OIL [place]-3 PO) Take [...] 11/07/2018 Active take 1 capsule by mo [facility] twice daily Omeprazole 40 MG 1 capsule 30 minutes before morning meal Orally twice a day Not-Taking take 2 capsules by [facility] once daily omeprazole (PRILOSEC) 20 MG delayed release capsule Take 40 mg by mouth daily 0 Active Comment on above: take 1 capsule by mo [facility] once daily as directed ondansetron 4 [...] A Myles on 09/16/2024 2:09 PM Normal [facility] Gynecology Office/Clinic Not freddie 08-13-2024 Gynecology [...] cover after 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 [employer] Additional Details Contraception Contraception TypeIntrauterine device, Vasectomy [...] Asthma D (more content not included)... Normal [facility] COMPREHENSIVE METABOLIC PANE Mika 05-19-2024 Albumin [Mass/Vol] 4.6 g/dL Normal 3.2-5.3 [facility] Comment on above: Performed By: #### C EVIN, 11246-4, THYR, CBCA, 73283-1 #### [facility] ([id number]) [address], [address] [place] [address] ALP [Catalytic activity/Vol] 78 U/L Normal 39-130 [facility] Comment on above: Performed By: #### C EVIN, 16309-9, THYR, CBCA, 58999-4 #### [facility] ([id number]) [address], [address] [place] [address] ALT [Catalytic activity/Vol] 85 U/L High 0-31 [facility] Comment on above: Performed By: #### C EVIN, 40008-6, THYR, CBCA, 57873-5 #### [facility] ([id number]) [address], [address] [place] [address] Anion gap [Moles/Vol] 15 mmol/L Normal 5-15 [facility] Comment on above: Performed By: #### C EVIN, 39494-0, THYR, CBCA, 98400-9 #### [facility] ([id number]) [address], [address] [place] [address] AST [Catalytic activity/Vol] 54 U/L High 0-41 [facility] Comment on above: Performed By: #### C EVIN, 51009-9, THYR, CBCA, 10027-4 #### [facility] ([id number]) [address], [address] [place] [address] Bilirubin [Mass/Vol] 0.6 mg/dL Normal 0.3-1.2 [facility] Comment on above: Performed By: #### C EVIN, 42567-0, THYR, CBCA, 71644-7 #### [facility] ([id number]) [address], [address] [place] [address] Calcium [Mass/Vol] 9.6 mg/dL Normal 8.5-10.5 [facility] Comment on above: Performed By: #### C EVIN, 61363-8, THYR, CBCA, 12962-3 #### [facility] ([id number]) [address], [address] [place] [address] Chloride [Moles/Vol] 102 mmol/L Normal 98-109 [facility] Comment on above: Performed By: #### C EVIN, 70817-6, THYR, CBCA, 59328-6 #### [facility] ([id number]) [address], [address] [place] [address] CO2 [Moles/Vol] 19 mmol/L Low 22-32 [facility] Comment on above: Performed By: #### C EVIN, 75175-9, THYR, CBCA, 29607-4 #### [facility] ([id number]) [address], [address] [place] [address] Creatinine [Mass/Vol] 0.89 mg/dL Normal 0.40-1.00 [facility] Comment on above: Result Comment: METH OD TRACEABLE TO IDMS STANDARD Performed By: #### C EVIN, 87543-4, THYR, CBCA, 01409-6 #### [facility] ([id number]) [address], [address] [place] [address] GFR/1.73 sq M.predicted among non-blacks MDRD (S/P/Bld) [Vol rate/Area] 86 mL/min/{1.73_m2} Normal >59 [facility] Comment on above: Result Comment: Reported eGFR is based on the CKD-EPI 2020 equation that does not use a race coefficient. Performed By: #### Mariam CLEARY, 81719-0, THYR, CBCA, 80428-5 #### [facility] ([id number]) [address], [address] [place] [address] Glucose [Mass/Vol] 95 mg/dL Normal 65-99 [facility] Comment on above: Performed By: #### Mariam CLEARY, 79613-2, THYR, CBCA, 77778-9 #### [facility] ([id number]) [address], [address] [place] [address] Potassium [Moles/Vol] 4.0 mmol/L Normal 3.5-5.0 [facility] Comment on above: Performed By: #### Mariam CLEARY, 00175-4, THYR, CBCA, 68778-8 #### [facility] ([id number]) [address], [address] [place] [address] Protein [Mass/Vol] 7.0 g/dL Normal 6.0-8.0 [facility] Comment on above: Performed By: #### C EVIN, 99562-5, THYR, CBCA, 80234-5 #### [facility] ([id number]) [address], [address] [place] [address] Sodium [Moles/Vol] 136 mmol/L Normal 134-146 [facility] Comment on above: Performed By: #### C EVIN, 60117-4, THYR, CBCA, 68104-9 #### [facility] ([id number]) [address], [address] [place] [address] Urea nitrogen [Mass/Vol] 10 mg/dL Normal 5-23 [facility] Comment on above: Performed By: #### C EVIN, 63067-3, THYR, CBCA, 97770-8 #### [facility] ([id number]) [address], [address] [place] [address] DIRECT LDLon 05-19-2024 Cholesterol in LDL [Mass/Vol] 181 mg/dL High <130 [facility] Comment on above: Result Comment: LDL <100 mg/dL - Desirable LDL 130-159 mg/dL - Borderline High Risk LDL >160 mg/dL - High Risk Performed By: #### C EVIN, 46773-6, THYR, CBCA, 48268-6 #### [facility] ([id number]) [address], [address] [place] [address] LIVER PANELon 05-19-2024 Bilirubin.direct [Mass/Vol] 0.1 mg/dL Normal 0.0-0.4 [facility] Comment on above: Performed By: #### C EVIN, 73252-1, THYR, CBCA, 14702-0 #### [facility] ([id number]) [address], [address] [place] [address] Lipid 1996 panelon 4 Cholesterol [Mass/Vol] 276 mg/dL High 150-200 [facility] Comment on above: Performed By: #### C EVIN, 06286-1, THYR, CBCA, 47675-3 #### [facility] ([id number]) [address], [address] [place] [address] Cholesterol in HDL [Mass/Vol] 42 mg/dL Normal >39 [facility] Comment on above: Result Comment: HDL <40 mg/dL - High Risk HDL > or = 40mg/dL- Desirable HDL >60 mg/dL - Negative Risk Performed By: #### C EVIN, 55642-6, THYR, CBCA, 35295-1 #### [facility] ([id number]) [address], [address] [place] [address] Cholesterol in VLDL [Mass/Vol] 98 mg/dL High 0-30 [facility] Comment on above: Performed By: #### C EVIN, 24687-2, THYR, CBCA, 17976-3 #### [facility] ([id number]) [address], [address] [place] [address] CHOLESTEROL:HDL 6.6 High 1.0-5.0 [facility] Comment on above: Performed By: #### C EVIN, 08901-8, THYR, CBCA, 40633-9 #### [facility] ([id number]) [address] [address] [place] [address] LDL (CALC) RESULT NOT REPORTED DUE TO HIGH TRIGLYCERIDE Normal <130 [facility] Comment on above: Performed By: #### C EVIN, 32385-2, THYR, CBCA, 26903-7 #### [facility] ([id number]) [address], [address] [place] [address] Triglyceride [Mass/Vol] 488 mg/dL High 27-150 [facility] Comment on above: Performed By: #### C MP, 15926-9, THYR, CBCA, 78922-6 #### [facility] ([id number]) [address], [address] [place] [address] MR LUMBAR SPINE WO CONTon MR LUMBAR [...] Bruce DO on 03/26/2024 1:45 PM Normal [facility] CBC AND AUTO DIFFon 03-23-20 24 ABSOLUTE BASOPHIL 0.0 X10E9/L Normal 0.0-0.2 [facility] Comment on above: Performed By: #### C EVIN, 03784-2, THYR, CBCA, 70193-0 #### [facility] ([id number]) [address], [address] [place] [address] ABSOLUTE NEUTROPHIL 4.7 X10E9/L Normal 1.5-6.6 [facility] Comment on above: Performed By: #### C EVIN, 39145-8, THYR, CBCA, 22052-8 #### [facility] ([id number]) [address], [facility] [address] [place] [address] Basophils/100 WBC (Bld) 0.3 % Normal [facility] Comment on above: Performed By: #### C EVIN, 21291-5, THYR, CBCA, 01443-0 #### [facility] ([id number]) [address] [address] [place] [address] Eosinophils (Bld) [#/Vol] 0.0 10*3/uL Normal 0.0-0.4 [facility] Comment on above: Performed By: #### C EVIN, 48422-1, THYR, CBCA, 18544-7 #### [facility] ([id number]) [address] [address] [place] [address] Eosinophils/100 WBC (Bld) 0.4 % Normal [facility] Comment on above: Performed By: #### C EVIN, 80219-9, THYR, CBCA, 65328-2 #### [facility] ([id number]) [address] [address] [place] [address] Erythrocyte distribution width (RBC) [Ratio] 13.5 % Normal 11.5-15.0 [facility] Comment on above: Performed By: #### C EVIN, 90449-2, THYR, CBCA, 17197-3 #### [facility] ([id number]) [address] [address] [place] [address] Hematocrit (Bld) [Volume fraction] 44.6 % Normal 35-47 [facility] Comment on above: Performed By: #### C EVIN, 31585-6, THYR, CBCA, 95922-8 #### [facility] ([id number]) [address], [address] [place] [address] Hemoglobin (Bld) [Mass/Vol] 15.6 g/dL High 11.7-15.5 [facility] Comment on above: Performed By: #### C EVIN, 40045-0, THYR, CBCA, 90557-3 #### [facility] ([id number]) [address] [address] [place] [address] Lymphocytes (Bld) [#/Vol] 0.5 10*3/uL Low 1.0-3.5 [facility] Comment on above: Performed By: #### C EVIN, 16396-7, THYR, CBCA, 31987-1 #### [facility] ([id number]) [address] [address] [place] [address] Lymphocytes/100 WBC (Bld) 8.7 % Normal [facility] Comment on above: Performed By: #### C EVIN, 41889-2, THYR, CBCA, 51775-6 #### [facility] ([id number]) [address], [address] [place] [address] MCH (RBC) [Entitic mass] 32.5 pg Normal 27-34 [facility] Comment on above: Performed By: #### C EVIN, 73426-3, THYR, CBCA, 73322-1 #### [facility] ([id number]) [address] [address] [place] [address] MCHC (RBC) [Mass/Vol] 34.9 g/dL Normal 32-36 [facility] Comment on above: Performed By: #### C EVIN, 35657-5, THYR, CBCA, 60677-8 #### [facility] ([id number]) [address], [address] [place] [address] MCV (RBC) [Entitic vol] 93 fL Normal 80-100 [facility] Comment on above: Performed By: #### C EVIN, 56499-4, THYR, CBCA, 78462-8 #### [facility] ([id number]) [address], [facility] [address] [place] [address] Monocytes (Bld) [#/Vol] 0.0 10*3/uL Normal 0-0.9 [facility] Comment on above: Performed By: #### C EVIN, 16644-3, THYR, CBCA, 40194-5 #### [facility] ([id number]) [address], [address] [place] [address] Monocytes/100 WBC (Bld) 0.6 % Normal [facility] Comment on above: Performed By: #### Mariam CLEARY, 57826-1, THYR, CBCA, 15258-7 #### [facility] ([id number]) [address] [address] [place] [address] Neutrophils/100 WBC (Bld) 90.0 % Normal [facility] Comment on above: Performed By: #### C EVIN, 68450-1, THYR, CBCA, 74512-9 #### [facility] ([id number]) [address], [address] [place] [address] Platelet mean volume (Bld) [Entitic vol] 7.2 fL Normal 7-12 [facility] Comment on above: Performed By: #### C EVIN, 14121-7, THYR, CBCA, 48494-7 #### [facility] ([id number]) [address], [address] [place] [address] Platelets (Bld) [#/Vol] 286 10*3/uL Normal 150-450 [facility] Comment on above: Performed By: #### C EVIN, 49638-9, THYR, CBCA, 41834-2 #### [facility] ([id number]) [address], [address] [place] [address] RBC COUNT 4.80 X10E12/L Normal 3.80-5.20 [facility] Comment on above: Performed By: #### C EVIN, 72563-1, THYR, CBCA, 76727-0 #### [facility] ([id number]) [address], [address] [place] [address] WBC (Bld) [#/Vol] 5.3 10*3/uL Normal 4.0-11.0 [facility] Comment on above: Performed By: #### C EVIN, 76682-8, THYR, CBCA, 65650-2 #### [facility] ([id number]) [address], [address] [place] [address] COMPREHENSIVE METABOLIC PANE Mika 03-23-2024 Albumin [Mass/Vol] 4.2 g/dL Normal 3.2-5.3 [facility] Comment on above: Performed By: #### C EVIN, 82552-2, THYR, CBCA, 22207-5 #### [facility] ([id number]) [address], [address] [place] [address] ALP [Catalytic activity/Vol] 115 U/L Normal 39-130 [facility] Comment on above: Performed By: #### C EVIN, 30084-9, THYR, CBCA, 54785-6 #### [facility] ([id number]) [address], [address] [place] [address] ALT [Catalytic activity/Vol] 81 U/L High 0-31 [facility] Comment on above: Performed By: #### C EVIN, 26048-1, THYR, CBCA, 21752-6 #### [facility] ([id number]) [address], [address] [place] [address] Anion gap [Moles/Vol] 14 mmol/L Normal 5-15 [facility] Comment on above: Performed By: #### C EVIN, 81000-2, THYR, CBCA, 88273-5 #### [facility] ([id number]) [address], [address] [place] [address] AST [Catalytic activity/Vol] 48 U/L High 0-41 [facility] Comment on above: Performed By: #### C EVIN, 35815-0, THYR, CBCA, 23554-3 #### [facility] ([id number]) [address], [address] [place] [address] Bilirubin [Mass/Vol] 1.3 mg/dL High 0.3-1.2 [facility] Comment on above: Performed By: #### C EVIN, 98090-5, THYR, CBCA, 90197-1 #### [facility] ([id number]) [address], [address] [place] [address] Calcium [Mass/Vol] 9.3 mg/dL Normal 8.5-10.5 [facility] Comment on above: Performed By: #### C EVIN, 38782-4, THYR, CBCA, 28372-5 #### [facility] ([id number]) [address], [address] [place] [address] Chloride [Moles/Vol] 97 mmol/L Low 98-109 [facility] Comment on above: Performed By: #### C EVIN, 39726-9, THYR, CBCA, 96823-0 #### [facility] ([id number]) [address], [address] [place] [address] CO2 [Moles/Vol] 22 mmol/L Normal 22-32 [facility] Comment on above: Performed By: #### C EVIN, 71086-6, THYR, CBCA, 19330-8 #### [facility] ([id number]) [address], [address] [place] [address] Creatinine [Mass/Vol] 0.91 mg/dL Normal 0.40-1.00 [facility] Comment on above: Result Comment: METH OD TRACEABLE TO IDMS STANDARD Performed By: #### C EVIN, 13026-7, THYR, CBCA, 31853-7 #### [facility] ([id number]) [address], [address] [place] [address] GFR/1.73 sq M.predicted among non-blacks MDRD (S/P/Bld) [Vol rate/Area] 83 mL/min/{1.73_m2} Normal >59 [facility] Comment on above: Result Comment: Reported eGFR is based on the CKD-EPI 2020 equation that does not use a race coefficient. Performed By: #### C EVIN, 91497-9, THYR, CBCA, 85504-2 #### [facility] ([id number]) [address], [address] [place] [address] Glucose [Mass/Vol] 110 mg/dL High 65-99 [facility] Comment on above: Performed By: #### C EVIN, 32115-2, THYR, CBCA, 57990-0 #### [facility] ([id number]) [address], [address] [place] [address] Potassium [Moles/Vol] 3.8 mmol/L Normal 3.5-5.0 [facility] Comment on above: Performed By: #### Mariam CLEARY, 17205-9, THYR, CBCA, 55923-3 #### [facility] ([id number]) [address], [address] [place] [address] Protein [Mass/Vol] 8.0 g/dL Normal 6.0-8.0 [facility] Comment on above: Performed By: #### C MP, 86206-0, THYR, CBCA, 51278-0 #### [facility] ([id number]) [address], [address] [place] [address] Sodium [Moles/Vol] 133 mmol/L Low 134-146 [facility] Comment on above: Performed By: #### C MP, 50711-4, THYR, CBCA, 77051-0 #### [facility] ([id number]) [address], [address] [place] [address] Urea nitrogen [Mass/Vol] 13 mg/dL Normal 5-23 [facility] Comment on above: Performed By: #### C MP, 92609-5, THYR, CBCA, 78274-5 #### [facility] ([id number]) [address], [address] [place] [address] CT CTA CHESTon 03-23-2024 CT CTA CHEST [...] Chaparro MD on 03/23/2024 10:52 PM Normal [facility] Fibrin D-dimer DDU (PPP) [Ma ss/Vol]on 03-23-2024 D DIMER 336 ng/mL DDU High <255 [facility] Comment on above: Result Comment: Results [...] D-Dimer level. Performed By: #### C EVIN, 61815-2, THYR, CBCA, 61037-0 #### [facility] ([id number]) [address], [address] [place] [address] HCG ( test) Ql (U)o n 03-23-2024 Beta HCG ( test) Ql (U) Negative Normal NEG [facility] Comment on above: Performed By: #### C EVIN, 54956-8, THYR, CBCA, 44832-0 #### [facility] ([id number]) [address], [address] [place] [address] LIPASEon 03-23-2024 Lipase [Catalytic activity/Vol] 30 U/L Normal 17-40 [facility] Comment on above: Performed By: #### C EVIN, 52252-8, THYR, CBCA, 25552-7 #### [facility] ([id number]) [address], [address] [place] [address] THYROID PROFILEon 03-23-2024 Free T4 [Mass/Vol] 0.74 ng/dL Normal 0.61-1.60 [facility] Comment on above: Performed By: #### C EVIN, 86019-5, THYR, CBCA, 54031-8 #### [facility] ([id number]) [address], [address] [place] [address] TSH 1.64 uIU/mL Normal 0.49-4.67 [facility] Comment on above: Performed By: #### Mariam CLEARY, 73127-0, THYR, CBCA, 09959-4 #### [facility] ([id number]) [address], [address] [place] [address] Troponin I.cardiac High sens itivity method [Mass/Vol]on 03-23-2024 1 HOUR TROP I, HIGH SENSITIVITY 3 ng/L Normal <16 [facility] Comment on above: Performed By: #### Mariam CLEARY, 55871-1, THYR, CBCA, 50565-4 #### [facility] ([id number]) [address], [address] [place] [address] TROPONIN I, HIGH SENSITIVITY 2 ng/L Normal <16 [facility] Comment on above: Performed By: #### Mariam CLEARY, 12777-9, THYR, CBCA, 91834-8 #### [facility] ([id number]) [address], [address] [place] [address] URINE CULTUREon 03-23-2024 Bacteria identified Cx Nom [...] F TRIMETH/SULFAMETHOXAZO LE S <=09/28 F Susceptible [facility] Comment on above: Performed By: #### C EVIN, 65368-5, THYR, CBCA, 88550-1 #### [facility] ([id number]) [address], [address] [place] [address] URN MACROSCOPIC NURon 2023 BILIRUBIN LUL Negative Normal NEG [facility] Comment on above: Performed By: #### C EVIN, 79535-4, THYR, CBCA, 25248-4 #### [facility] ([id number]) [address], [address] [place] [address] BLOOD/HGB LUL Small Abnormal NEG [facility] Comment on above: Performed By: #### C EVIN, 52095-7, THYR, CBCA, 51861-3 #### [facility] ([id number]) [address], [address] [place] [address] GLUCOSE LUL Negative Normal [facility] Comment on above: Performed By: #### C EVNI, 02941-3, THYR, CBCA, 21036-9 #### [facility] ([id number]) [address], [address] [place] [address] KETONES LUL Negative Normal NEG [facility] Comment on above: Performed By: #### C EVIN, 29165-6, THYR, CBCA, 50479-8 #### [facility] ([id number]) [address], [address] [place] [address] LEUKOCYTE ESTERASE LLU Small Abnormal NEG [facility] Comment on above: Performed By: #### C EVIN, 66074-1, THYR, CBCA, 26752-1 #### [facility] ([id number]) [address], [address] [place] [address] NITRITE LUL Negative Normal NEG [facility] Comment on above: Performed By: #### C MP, 76165-1, THYR, CBCA, 55507-9 #### [facility] ([id number]) [address], [address] [place] [address] PH LUL 5.5 Normal 5.0-8.5 [facility] Comment on above: Performed By: #### C MP, 77125-4, THYR, CBCA, 08859-6 #### [facility] ([id number]) [address], [address] [place] [address] PROTEIN LUL Negative Normal NEG [facility] Comment on above: Performed By: #### C MP, 11286-4, THYR, CBCA, 29329-1 #### [facility] ([id number]) [address], [address] [place] [address] SPECIFIC GRAVITY LUL 1.010 Normal 1.003-1.035 [facility] Comment on above: Performed By: #### C MP, 72337-5, THYR, CBCA, 23978-2 #### [facility] ([id number]) [address], [address] [place] [address] UROBILINOGEN LUL 0.2 eu/dL Normal <1.1 [facility] Comment on above: Performed By: #### C MP, 69187-1, THYR, CBCA, 47374-5 #### [facility] ([id number]) [address], [address] [place] [address] CBC AND AUTO DIFFon -- 24 ABSOLUTE BASOPHIL 0.0 X10E9/L Normal 0.0-0.2 [facility] Comment on above: Performed By: #### C BCA, HA1C, THYR, 85119-5 #### [facility] ([id number]) [address], [address] [place] [address] ABSOLUTE NEUTROPHIL 2.8 X10E9/L Normal 1.5-6.6 [facility] Comment on above: Performed By: #### C JORGE L, HA1C, THYR, 31186-8 #### [facility] ([id number]) [address], [address] [place] [address] Basophils/100 WBC (Bld) 0.7 % Normal [facility] Comment on above: Performed By: #### C BCA, HA1C, THYR, 20494-4 #### [facility] ([id number]) [address], [address] [place] [address] Eosinophils (Bld) [#/Vol] 0.1 10*3/uL Normal 0.0-0.4 [facility] Comment on above: Performed By: #### Mariam BCA, HA1C, THYR, 50419-8 #### [facility] ([id number]) [address], [address] [place] [address] Eosinophils/100 WBC (Bld) 2.1 % Normal [facility] Comment on above: Performed By: #### C JORGE L, HA1C, THYR, 35179-8 #### [facility] ([id number]) [address], [address] [place] [address] Erythrocyte distribution width (RBC) [Ratio] 13.7 % Normal 11.5-15.0 [facility] Comment on above: Performed By: #### C BCA, HA1C, THYR, 76042-4 #### [facility] ([id number]) [address], [address] [place] [address] Hematocrit (Bld) [Volume fraction] 45.0 % Normal 35-47 [facility] Comment on above: Performed By: #### C BCA, HA1C, THYR, 50088-8 #### [facility] ([id number]) [address], [address] [place] [address] Hemoglobin (Bld) [Mass/Vol] 15.5 g/dL Normal 11.7-15.5 [facility] Comment on above: Performed By: #### C JORGE L, HA1C, THYR, 59275-8 #### [facility] ([id number]) [address], [address] [place] [address] Lymphocytes (Bld) [#/Vol] 1.4 10*3/uL Normal 1.0-3.5 [facility] Comment on above: Performed By: #### C BCA, HA1C, THYR, 06936-9 #### [facility] ([id number]) [address], [facility] [address] [place] [address] Lymphocytes/100 WBC (Bld) 28.9 % Normal [facility] Comment on above: Performed By: #### C JORGE L, HA1C, THYR, 68173-3 #### [facility] ([id number]) [address], [address] [place] [address] MCH (RBC) [Entitic mass] 32.0 pg Normal 27-34 [facility] Comment on above: Performed By: #### Mariam COATS, HA1C, THYR, 54992-7 #### [facility] ([id number]) [address], [address] [place] [address] MCHC (RBC) [Mass/Vol] 34.3 g/dL Normal 32-36 [facility] Comment on above: Performed By: #### C BCA, HA1C, THYR, 20158-0 #### [facility] ([id number]) [address], [address] [place] [address] MCV (RBC) [Entitic vol] 93 fL Normal 80-100 [facility] Comment on above: Performed By: #### Mariam BCA, HA1C, THYR, 92984-0 #### [facility] ([id number]) [address], [address] [place] [address] Monocytes (Bld) [#/Vol] 0.4 10*3/uL Normal 0-0.9 [facility] Comment on above: Performed By: #### C JORGE L, HA1C, THYR, 93850-1 #### [facility] ([id number]) [address], [address] [place] [address] Monocytes/100 WBC (Bld) 8.4 % Normal [facility] Comment on above: Performed By: #### C BCA, HA1C, THYR, 59530-9 #### [facility] ([id number]) [address], [address] [place] [address] Neutrophils/100 WBC (Bld) 59.9 % Normal [facility] Comment on above: Performed By: #### C JORGE L, HA1C, THYR, 66038-4 #### [facility] ([id number]) [address], [address] [place] [address] Platelet mean volume (Bld) [Entitic vol] 8.5 fL Normal 7-12 [facility] Comment on above: Performed By: #### Mariam COATS, HA1C, THYR, 07782-3 #### [facility] ([id number]) [address], [address] [place] [address] Platelets (Bld) [#/Vol] 272 10*3/uL Normal 150-450 [facility] Comment on above: Performed By: #### Mariam BCA, HA1C, THYR, 04385-4 #### [facility] ([id number]) [address], [address] [place] [address] RBC COUNT 4.83 X10E12/L Normal 3.80-5.20 [facility] Comment on above: Performed By: #### Mariam BCA, HA1C, THYR, 15213-2 #### [facility] ([id number]) [address], [address] [place] [address] WBC (Bld) [#/Vol] 4.7 10*3/uL Normal 4.0-11.0 [facility] Comment on above: Performed By: #### C BCA, HA1C, THYR, 01458-3 #### [facility] ([id number]) [address], [address] [place] [address] HGB A1C (GLYCO-HGB)on 2023 Glucose [Mass/Vol] 97 mg/dL Normal [facility] Comment on above: Performed By: #### C BCA, HA1C, THYR, 27439-0 #### [facility] ([id number]) [address], [facility] [address] [place] [address] HbA1c (Bld) [Mass fraction] 5.0 % Normal 4.4-5.6 [facility] Comment on above: Result Comment: NOTE ADA Guidelines Result HgbA1c Normal : less than 5.7 % Prediabetes : 5.7 % to 6.4 % Diabetes : > 6.4 % Use with caution in patients with abnormal hemoglobin variants as the half-life of red blood cells and in vivo glycation rates are affected. Performed By: #### C BCA, HA1C, THYR, 20350-2 #### [facility] ([id number]) [address], [address] [place] [address] THYROID PROFILEon 02-29-2024 Free T4 [Mass/Vol] 0.67 ng/dL Normal 0.61-1.60 [facility] Comment on above: Performed By: #### C BCA, HA1C, THYR, 08626-8 #### [facility] ([id number]) [address], [address] [place] [address] TSH 1.84 uIU/mL Normal 0.49-4.67 [facility] Comment on above: Performed By: #### C BCA, HA1C, THYR, 85289-5 #### [facility] ([id number]) [address] [facility], [address] [place] [address] Vitamin D+Metabolites [Mass/ Vol]on 02-29-2024 VITAMIN D 25 HYD TOT 32.3 ng/mL Normal 30-100 [facility] Comment on above: Result Comment: Vitamin D status 25 [place] Vitamin D Deficiency <20 ng/mL Insufficiency 20-29 ng/mL Sufficiency 30-100 ng/mL Toxicity >100 ng/mL NOTE: A pediatric reference range has not been established by the fertilizer processing supervisor of this kit. The [place] [employer] recommends a Vitamin D level of = or >20ng/mL in infants and children. Performed By: #### C MP, 45509-7, THYR, CBCA, 30294-0 #### [facility] ([id number]) [facility] [facility], [address] [place] [address] XR LUMBAR SPINE AP, LATERAL, FLEXION AND [...] Chun MD on 12/03/2023 10:04 AM Normal [facility] XR SPINE CERVICAL 3 VWS OR [...] Jay MD on 12/02/2023 7:06 AM Normal [facility] CBC AND AUTO DIFFon 11-30-19 ABSOLUTE BASOPHIL 0.0 X10E9/L Normal 0.0-0.2 [facility] Comment on above: Performed By: #### C EVIN, 98810-9, THYR, CBCA, 21916-7 #### [facility] ([id number]) [address] [address] [place] [address] ABSOLUTE NEUTROPHIL 2.5 X10E9/L Normal 1.5-6.6 [facility] Comment on above: Performed By: #### Mariam CLEARY, 14409-5, THYR, CBCA, 18476-6 #### [facility] ([id number]) [address] [address] [place] [address] Basophils/100 WBC (Bld) 0.5 % Normal [facility] Comment on above: Performed By: #### Mariam CLEARY, 39854-5, THYR, CBCA, 20041-4 #### [facility] ([id number]) [address] [address] [place] [address] Eosinophils (Bld) [#/Vol] 0.0 10*3/uL Normal 0.0-0.4 [facility] Comment on above: Performed By: #### C EVIN, 78853-9, THYR, CBCA, 71366-1 #### [facility] ([id number]) [address] [address] [place] [address] Eosinophils/100 WBC (Bld) 1.2 % Normal [facility] Comment on above: Performed By: #### C EVIN, 47099-9, THYR, CBCA, 14776-0 #### [facility] ([id number]) [address], [address] [place] [address] Erythrocyte distribution width (RBC) [Ratio] 13.7 % Normal 11.5-15.0 [facility] Comment on above: Performed By: #### C EVIN, 79993-2, THYR, CBCA, 51272-2 #### [facility] ([id number]) [address], [facility] [address] [place] [address] Hematocrit (Bld) [Volume fraction] 43.0 % Normal 35-47 [facility] Comment on above: Performed By: #### C EVIN, 39322-8, THYR, CBCA, 63570-0 #### [facility] ([id number]) [address], [address] [place] [address] Hemoglobin (Bld) [Mass/Vol] 15.0 g/dL Normal 11.7-15.5 [facility] Comment on above: Performed By: #### C EVIN, 77271-8, THYR, CBCA, 81112-6 #### [facility] ([id number]) [address], [facility] [address] [place] [address] Lymphocytes (Bld) [#/Vol] 0.9 10*3/uL Low 1.0-3.5 [facility] Comment on above: Performed By: #### C EVIN, 62109-6, THYR, CBCA, 40625-3 #### [facility] ([id number]) [address], [facility] [address] [place] [address] Lymphocytes/100 WBC (Bld) 23.6 % Normal [facility] Comment on above: Performed By: #### C EVIN, 32700-2, THYR, CBCA, 31370-5 #### [facility] ([id number]) [address], [address] [place] [address] MCH (RBC) [Entitic mass] 32.2 pg Normal 27-34 [facility] Comment on above: Performed By: #### C EVIN, 27405-0, THYR, CBCA, 63318-5 #### [facility] ([id number]) [address], [address] [place] [address] MCHC (RBC) [Mass/Vol] 35.0 g/dL Normal 32-36 [facility] Comment on above: Performed By: #### Mariam CLEARY, 63837-9, THYR, CBCA, 29300-6 #### [facility] ([id number]) [address], [address] [place] [address] MCV (RBC) [Entitic vol] 92 fL Normal 80-100 [facility] Comment on above: Performed By: #### Mariam CLEARY, 53240-8, THYR, CBCA, 49715-7 #### [facility] ([id number]) [address], [address] [place] [address] Monocytes (Bld) [#/Vol] 0.3 10*3/uL Normal 0-0.9 [facility] Comment on above: Performed By: #### Mariam CLEARY, 83198-3, THYR, CBCA, 32197-9 #### [facility] ([id number]) [address], [address] [place] [address] Monocytes/100 WBC (Bld) 7.0 % Normal [facility] Comment on above: Performed By: #### Mariam CLEARY, 65836-4, THYR, CBCA, 66092-3 #### [facility] ([id number]) [address], [address] [place] [address] Neutrophils/100 WBC (Bld) 67.7 % Normal [facility] Comment on above: Performed By: #### Mariam CLEARY, 86861-6, THYR, CBCA, 98511-4 #### [facility] ([id number]) [address] [address] [place] [address] Platelet mean volume (Bld) [Entitic vol] 8.7 fL Normal 7-12 [facility] Comment on above: Performed By: #### C MP, 13289-6, THYR, CBCA, 13623-4 #### [facility] ([id number]) [address] [address] [place] [address] Platelets (Bld) [#/Vol] 186 10*3/uL Normal 150-450 [facility] Comment on above: Performed By: #### C MP, 68684-4, THYR, CBCA, 56689-9 #### [facility] ([id number]) [address] [address] [place] [address] RBC COUNT 4.67 X10E12/L Normal 3.80-5.20 [facility] Comment on above: Performed By: #### C EVIN, 69103-4, THYR, CBCA, 20054-2 #### [facility] ([id number]) [address] [address] [place] [address] WBC (Bld) [#/Vol] 3.7 10*3/uL Low 4.0-11.0 [facility] Comment on above: Performed By: #### C MP, 68949-3, THYR, CBCA, 72752-7 #### [facility] ([id number]) [address], [address] [place] [address] COMPREHENSIVE METABOLIC PANE Mika 11-30-2023 Albumin [Mass/Vol] 4.4 g/dL Normal 3.2-5.3 [facility] Comment on above: Performed By: #### C MP, 06291-3, THYR, CBCA, 45554-9 #### [facility] ([id number]) [address], [address] [place] [address] ALP [Catalytic activity/Vol] 65 U/L Normal 39-130 [facility] Comment on above: Performed By: #### C MP, 34509-6, THYR, CBCA, 75700-2 #### [facility] ([id number]) [address], [address] [place] [address] ALT [Catalytic activity/Vol] 59 U/L High 0-31 [facility] Comment on above: Performed By: #### C MP, 56714-3, THYR, CBCA, 96987-8 #### [facility] ([id number]) [address], [address] [place] [address] Anion gap [Moles/Vol] 6 mmol/L Normal 5-15 [facility] Comment on above: Performed By: #### C MP, 77755-9, THYR, CBCA, 35416-9 #### [facility] ([id number]) [address], [address] [place] [address] AST [Catalytic activity/Vol] 31 U/L Normal 0-41 [facility] Comment on above: Performed By: #### C MP, 95437-2, THYR, CBCA, 00234-7 #### [facility] ([id number]) [address], [address] [place] [address] Bilirubin [Mass/Vol] 0.8 mg/dL Normal 0.3-1.2 [facility] Comment on above: Performed By: #### C MP, 37215-4, THYR, CBCA, 25789-7 #### [facility] ([id number]) [address], [address] [place] [address] Calcium [Mass/Vol] 9.1 mg/dL Normal 8.5-10.5 [facility] Comment on above: Performed By: #### C MP, 05548-2, THYR, CBCA, 80919-0 #### [facility] ([id number]) [address], [address] [place] [address] Chloride [Moles/Vol] 103 mmol/L Normal 98-109 [facility] Comment on above: Performed By: #### C EVIN, 84874-4, THYR, CBCA, 26399-1 #### [facility] ([id number]) [address], [address] [place] [address] CO2 [Moles/Vol] 28 mmol/L Normal 22-32 [facility] Comment on above: Performed By: #### C EVIN, 27184-2, THYR, CBCA, 47473-3 #### [facility] ([id number]) [address], [address] [place] [address] Creatinine [Mass/Vol] 0.86 mg/dL Normal 0.40-1.00 [facility] Comment on above: Result Comment: METH OD TRACEABLE TO IDMS STANDARD Performed By: #### C EVIN, 77976-7, THYR, CBCA, 52652-5 #### [facility] ([id number]) [address], [address] [place] [address] GFR/1.73 sq M.predicted among non-blacks MDRD (S/P/Bld) [Vol rate/Area] 89 mL/min/{1.73_m2} Normal >59 [facility] Comment on above: Result Comment: Reported eGFR is based on the CKD-EPI 2020 equation that does not use a race coefficient. Performed By: #### C EVIN, 69732-8, THYR, CBCA, 64124-9 #### [facility] ([id number]) [address], [address] [place] [address] Glucose [Mass/Vol] 97 mg/dL Normal 65-99 [facility] Comment on above: Performed By: #### C MP, 81178-4, THYR, CBCA, 23807-2 #### [facility] ([id number]) [address], [address] [place] [address] Potassium [Moles/Vol] 3.8 mmol/L Normal 3.5-5.0 [facility] Comment on above: Performed By: #### C EVIN, 35765-6, THYR, CBCA, 80589-1 #### [facility] ([id number]) [address], [address] [place] [address] Protein [Mass/Vol] 6.6 g/dL Normal 6.0-8.0 [facility] Comment on above: Performed By: #### C EVIN, 10232-6, THYR, CBCA, 82745-9 #### [facility] ([id number]) [address], [address] [place] [address] Sodium [Moles/Vol] 137 mmol/L Normal 134-146 [facility] Comment on above: Performed By: #### C EIVN, 70745-9, THYR, CBCA, 52403-6 #### [facility] ([id number]) [address], [address] [place] [address] Urea nitrogen [Mass/Vol] 9 mg/dL Normal 5-23 [facility] Comment on above: Performed By: #### C EVIN, 81392-1, THYR, CBCA, 82500-8 #### [facility] ([id number]) [address], [address] [place] [address] Lipid 1996 panelon 4 Cholesterol [Mass/Vol] 236 mg/dL High 150-200 [facility] Comment on above: Performed By: #### C MP, 34938-5, THYR, CBCA, 95250-6 #### [facility] ([id number]) [address], [address] [place] [address] Cholesterol in HDL [Mass/Vol] 48 mg/dL Normal >39 [facility] Comment on above: Result Comment: HDL <40 mg/dL - High Risk HDL > or = 40mg/dL- Desirable HDL >60 mg/dL - Negative Risk Performed By: #### Mariam CLEARY, 38397-1, THYR, CBCA, 15527-7 #### [facility] ([id number]) [address], [address] [place] [address] Cholesterol in LDL [Mass/Vol] 124 mg/dL Normal <130 [facility] Comment on above: Result Comment: LDL <100 mg/dL - Desirable LDL >160 mg/dL - High Risk Performed By: #### C EVIN, 33519-0, THYR, CBCA, 87005-2 #### [facility] ([id number]) [address] [place] [address] Cholesterol in VLDL [Mass/Vol] 64 mg/dL High 0-30 [facility] Comment on above: Performed By: #### C EVIN, 64289-8, THYR, CBCA, 51878-3 #### [facility] ([id number]) [address], [address] [place] [address] CHOLESTEROL:HDL 4.9 Normal 1.0-5.0 [facility] Comment on above: Performed By: #### C EVIN, 34388-8, THYR, CBCA, 13185-2 #### [facility] ([id number]) [address], [address] [place] [address] Triglyceride [Mass/Vol] 318 mg/dL High 27-150 [facility] Comment on above: Performed By: #### C EVIN, 69388-4, THYR, CBCA, 13847-3 #### [facility] ([id number]) [address], [address] [place] [address] THYROID PROFILEon 11-30-2023 Free T4 [Mass/Vol] 0.62 ng/dL Normal 0.61-1.60 [facility] Comment on above: Performed By: #### C EVIN, 65256-6, THYR, CBCA, 62727-4 #### [facility] ([id number]) [address], [address] [place] [address] TSH 0.97 uIU/mL Normal 0.49-4.67 [facility] Comment on above: Performed By: #### C EVIN, 36596-3, THYR, CBCA, 57518-8 #### [facility] ([id number]) [address], [address] [place] [address] Vitamin D+Metabolites [Mass/ Vol]on 11-30-2023 VITAMIN D 25 HYD TOT 25.5 ng/mL Low 30-100 [facility] Comment on above: Result Comment: Vitamin D status 25 [place] Vitamin D Deficiency <20 ng/mL Insufficiency 20-29 ng/mL Sufficiency 30-100 ng/mL Toxicity >100 ng/mL NOTE: A pediatric reference range has not been established by the fertilizer processing supervisor of this kit. The [place] [employer] recommends a Vitamin D level of = or >20ng/mL in infants and children. Performed By: #### C EVIN, 80083-8, THYR, CBCA, 31869-7 #### [facility] ([id number]) [address], [address] [place] [address] Covid-19 PCR (CVDTB)on 09-11 SARS-CoV-2 (COVID-19) RNA MEGAN+probe Ql (Unsp spec) Not detected Normal NOT DETECTED [facility] Comment on above: Result Comment: This test is not yet approved or cleared by the [place] FDA. When there are no FDA-approved or cleared tests available, and other criteria are met, FDA can make tests available under an emergency access mechanism called an Emergency Use Authorization (EUA). The EUA for this test is supported by the [place] of Health and Human Service's (HHS's) declaration [...] consistent with SARS-CoV-2. Performed By: #### [facility] #### [facility] [address] [place] [address] Dr. Adis Warren Covid-19 PCR ([facility])on 09-11 SARS-CoV-2 (COVID-19) RNA MEGAN+probe Ql (Unsp spec) Not detected Normal NOT DETECTED [facility] Comment on above: Result Comment: This test is not yet approved or cleared by the [place] FDA. When there are no FDA-approved or cleared tests available, and other criteria are met, FDA can make tests available under an emergency access mechanism called an Emergency Use Authorization (EUA). The EUA for this test is supported by the [place] of Health and Human Service's (HHS's) declaration [...] consistent with SARS-CoV-2. Performed By: #### [facility] #### [facility] [address] [place] [address] Dr. Adis Warren OBSOLETEon 07-04-2021 OBSOLETE Refill (NEUWIL) MARITA MESSINA ([id number]) 1985 F Date Time Provider Department 07/04/21 [...] Encounter Status:Closed by RAYMOND MEDINA on 07/05/21 [facility] OBSOLETEon 05-27-2021 OBSOLETE Refill (NFWH) MARITA MESSINA ([id number]) 1985 F Date Time Provider Department 05/27/21 [...] Encounter Status:Closed by RAYMOND MEDINA on 05/30/21 [facility] OBSOLETEon 04-26-2021 OBSOLETE Refill (NFWH) MARITA MESSINA ([id number]) 1985 F Date Time Provider Department 04/26/21 RAYMOND MEDINA [facility] During your visit today, we recorded the [...] Encounter Status:Closed by RAYMOND MEDINA on 04/27/21 [facility] Coding Summary.on 05-31-2019 Coding Summary. CODING DATE: 05/31/2019 [facility] STATUS: Home (Routine DC) PAYOR: Medicaid [...] Andres Date Saved: 05/31/2019 06:25 am Normal [facility] Gynecology Office/Clinic Not freddie 05-20-2019 Gynecology [...] and next steps Ordered: Colposcopy with biopsy 70009 Pathology Tissue Exam Pathology Tissue Exam Follow-up With When Contact Information She BINGHAM CNP In 1 year [email or web address] Additional Instructions: She BINGHAM CNP Only if needed [email or web address] Additional Instructions: Problem List/Past Medical History Ongoing [...] 2: Father and Grandparent. Hyperlipidemia: Father. Normal [facility] Comment on above: Result Comment: Elec tronically Signed By: She BINGHAM CNP\Date and Time Signed: 05/20/19 14:48 EDT Coding Summary.on 05-06-2019 Coding Summary. CODING DATE: 05/06/2019 FINAL [facility] STATUS: Home (Routine DC) PAYOR: [...] CphT Date Saved: 05/06/2019 09:14 am Normal [facility] PAP [id number] 05-05-2019 Cytology report Cyto stain Doc (Cvx/Vag) Note Abnormal [facility] Comment on above: Result Comment: TEST S RESULT FLAG UNITS REF RANGE LAB Clinician Provided Cytology Information Source.............Cervix Other..............IUD No. of containers..01 ThinPrep Vial DIAGNOSIS: [A] 01 EPITHELIAL CELL ABNORMALITY. ATYPICAL SQUAMOUS CELLS OF UNDETERMINED SIGNIFICANCE (ASC-US). 01 Satisfactory for evaluation. Endocervical and/or squamous metaplastic cells (endocervical component) are present. 01 Maricarmen Stovall, Meat Department Manager (ASCP) 01 Jennifer Lopes MD, Pathologist 01 [...] Low,>-Panic High,A-Abnormal,AA-Critical Abnormal Performed at: 01 [facility] [address] [place] [address] Soraya Cabrera MD, Performed By: #### 1 [id number], [id number] #### [facility] [address] [place] [address] HPV 16+18+31+33+35+39+4 5+51+52+56+58+59+68 DNA Probe+sig amp Ql (Cvx) Positive Abnormal Negative [facility] Comment on above: Result Comment: This high-risk HPV test detects thirteen high- risk types (16/18/31/33/35/39/45/51/52/56/58/59/68) without differentiation. Performed at: [facility], [place] [id number] MD Rick Lira Performed at: =G [facility] [address] [id number] MD Rick Lira Performed By: #### 1 [id number], [id number] #### [facility] [address] [place] [address] Physician Read PAPon 019 Pathologist review Noe (Unsp spec) [Interp] Note [facility] Comment on above: Result Comment: TEST S RESULT FLAG UNITS REF RANGE LAB Physician Read Pap Note 01 Performed FLAG LEGEND: L-Low Normal,H-High Normal,LL-Alert Low,HH-Alert High <-Panic Low,>-Panic High,A-Abnormal,AA-Critical Abnormal Performed at: 01 [facility] [address] [address] Soraya Cabrera MD, Performed at: [facility] [address] [id number] MD Rick Lira Performed By: #### 1 [id number], [id number] #### [facility] [address] [place] [address] Gynecology Office/Clinic Not freddie 04-29-2019 Gynecology Office/Clinic [...] results Ordered: Office Visit Level 3 Est 88180 PAP [id number] w/HPV HR US Pelvis Non-OB Complete 2. Pelvic pain (R10.2: Pelvic and perineal pain) US ordered, will fax to [place] Ordered: Office Visit Level 3 Est 76841 US Pelvis Non-OB Complete Visit for routine educational advisor exam (Z01.419: Encounter for gynecological examination (general) [...] Preventive Med 18 to 39 years Est 280[address] Follow-up No qualifying data available Problem List/Past [...] type 2: Father and Grandparent. Hyperlipidemia: Father. [facility] Comment on above: Result Comment: Elec tronically Signed By: She BINGHAM CNP\Date and Time Signed: 04/29/19 11:36 EDT PAP [id number] 04-29-2019 Gynecological Body Site CERVIX Normal [facility] Comment on above: Performed By: #### 1 [id number], [id number] #### [facility] [address] [place] [address] Other Patient Information IUD [facility] Comment on above: Performed By: #### 1 [id number], [id number] #### [facility] [address] [place] [address] Vital Signs Date Time Vital Sign Value Performing Clinician Facility 09-15-2024 11:03-0500 Body height 157.5 cm Dorcas Cummingsgwen [employer]ORY CONTROL[employer]SHIPPING RECEIVING Work Phone: [facility] 09-15-2024 11:03-0500 Body mass index (BMI) [Ratio] 40.57 kg/m2 Dorcas Cummingsgwen [employer]ORY CONTROL[employer]SHIPPING RECEIVING Work Phone: [facility] 09-15-2024 11:03-0500 Body weight 100.61 kg Dorcas Kathryn [employer]ORY CONTR[employer]SHIPPING RECEIVING Work Phone: [facility] 09-15-2024 11:03-0500 Diastolic blood pressure 80 mm[Hg] Dorcas Kathryn [employer]ORY CONTROL[employer]SHIPPING RECEIVING Work Phone: [facility] 09-15-2024 11:03-0500 Heart rate 104 /min Dorcas Kathryn [employer]ORY [employer]OL[employer]SHIPPING RECEIVING Work Phone: [facility] 09-15-2024 11:03-0500 SaO2% (BldA) [Mass fraction] 97 % Dorcas Peralta [employer]SHIPPING RECEIVING Work Phone: [facility] 09-15-2024 11:03-0500 Systolic blood pressure 116 mm[Hg] Dorcas Peralta [employer]ORY CONTR[employer]SHIPPING RECEIVING Work Phone: [facility] 08-04-2024 15:35-0500 Body height 157.5 cm Sherie Maria DPM Work Phone: [facility] 08-04-2024 15:35-0500 Body mass index (BMI) [Ratio] 40.6 kg/m2 Sherie Maria DPM Work Phone: [facility] 08-04-2024 15:35-0500 Body weight 100.7 kg Sherie Maria DPM Work Phone: [facility] 06-16-2024 10:54-0400 Body height 157.5 cm Dorcas Peralta [employer]ORY [employer]SHIPPING RECEIVING Work Phone: [facility] 06-16-2024 10:54-0400 Body mass index (BMI) [Ratio] 39.36 kg/m2 Dorcas Peralta [employer]ORY [employer]OL[employer]SHIPPING RECEIVING Work Phone: [facility] 06-16-2024 10:54-0400 Body weight 97.61 kg Dorcas Peralta [employer]VENTORY CONTROL/SHIPPING RECEIVING Work Phone: [facility] 06-16-2024 10:54-0400 Diastolic blood pressure 76 mm[Hg] Dorcas Peralta INVENTORY CONTROL/SHIPPING RECEIVING Work Phone: [facility] 06-16-2024 10:54-0400 Heart rate 98 /min Dorcas Peralta INVENTORY CONTROL/SHIPPING RECEIVING Work Phone: [facility] 06-16-2024 10:54-0400 SaO2% (BldA) [Mass fraction] 97 % Dorcas Peralta [employer]ORY CONTROL/SHIPPING RECEIVING Work Phone: [facility] 06-16-2024 10:54-0400 Systolic blood pressure 120 mm[Hg] Dorcas Peralta [employer]VENTORY CONTROL[employer]SHIPPING RECEIVING Work Phone: [facility] 05-23-2024 10:24-0400 Body mass index (BMI) [Ratio] 38.99 kg/m2 Dorcas Peralta [employer]ORY [employer]SHIPPING RECEIVING Work Phone: [facility] 05-23-2024 10:24-0400 Body weight 96.71 kg Dorcas Peralta [employer]VENTORY CONTROL/SHIPPING RECEIVING Work Phone: [facility] 05-23-2024 10:24-0400 Diastolic blood pressure 72 mm[Hg] Dorcas Peralta [employer]VENTORY CONTROL/SHIPPING RECEIVING Work Phone: [facility] 05-23-2024 10:24-0400 Heart rate 93 /min Dorcas Peralta [employer]VENTORY CONTROL/SHIPPING RECEIVING Work Phone: [facility] 05-23-2024 10:24-0400 SaO2% (BldA) [Mass fraction] 99 % Dorcas Peralta INVENTORY CONTROL/SHIPPING RECEIVING Work Phone: [facility] 05-23-2024 10:24-0400 Systolic blood pressure 122 mm[Hg] Dorcas Peralta INVENTORY CONTROL/SHIPPING RECEIVING Work Phone: [facility] 05-14-2024 11:30-0400 Body height 157.5 cm Dorcas Peralta INVENTORY CONTROL/SHIPPING RECEIVING Work Phone: [facility] 05-14-2024 11:30-0400 Body mass index (BMI) [Ratio] 39.03 kg/m2 Dorcas Peralta [employer]VENTORY CONTROL/SHIPPING RECEIVING Work Phone: [facility] 05-14-2024 11:30-0400 Body weight 96.8 kg Dorcas Peralta INVENTORY CONTROL/SHIPPING RECEIVING Work Phone: [facility] 05-14-2024 11:30-0400 Diastolic blood pressure 68 mm[Hg] Dorcas Peralta INVENTORY CONTROL/SHIPPING RECEIVING Work Phone: [facility] 05-14-2024 11:30-0400 Heart rate 109 /min Dorcas Peralta [employer]VENTORY CONTROL/SHIPPING RECEIVING Work Phone: [facility] 05-14-2024 11:30-0400 SaO2% (BldA) [Mass fraction] 98 % Dorcas Peralta INVENTORY CONTROL/SHIPPING RECEIVING Work Phone: [facility] 05-14-2024 11:30-0400 Systolic blood pressure 110 mm[Hg] Dorcas Peralta INVENTORY CONTROL/SHIPPING RECEIVING Work Phone: [facility] 11-10-2019 14:27-0500 BMI (Body Mass Index) 35.43 kg/m2 [place], [place] 11-10-2019 14:27-0500 Body Temperature 97.59 [degF] Bradley Simmons [facility] 11-10-2019 14:27-0500 Body weight 90.72 kg Bradley Simmons [facility] , [place] 11-10-2019 14:27-0500 BP Diastolic 65 mm[Hg] Bradley Simmons [facility] , [place] 11-10-2019 14:27-0500 BP Systolic 102 mm[Hg] Bradley Simmons [facility] , [place] 11-10-2019 14:27-0500 Height 160 cm Bradley Simmons [facility] [place] 11-10-2019 14:27-0500 Pulse Oximetry 99 % Bradley [facility] [place] Encounters Encounter Date Encounter Type Care Provider Facility Start: 09-22-2024 End: 09-22-2024 Orders Only Dorcas Peralta [employer]ORY [employer]OL[employer]SHIPPING RECEIVING Work Phone: [facility] Comment on above: Obstructive sleep ap deann syndrome Start: 09-20-2024 End: 09-22-2024 Refill Jo-Ann Carlson MD Work Phone: [facility] Comment on above: Tremor (Primary Dx) Start: 09-15-2024 End: 09-15-2024 Bamboo flowsheet Dorcas Peralta [employer]ORY [employer]OL[employer]SHIPPING RECEIVING Work Phone: [facility] Start: 09-15-2024 End: 09-15-2024 Bamboo flowsheet Dorcas Peralta [employer]ORY [employer]OL[employer]SHIPPING RECEIVING Work Phone: [facility] Start: 09-15-2024 End: 09-15-2024 ambulatory DORCAS PERALTA Not Available Start: 09-15-2024 End: 09-15-2024 Office outpatient visit 25 minutes Dorcas Peralta [employer]SHIPPING RECEIVING Work Phone: [facility] Comment on above: Morbid (severe) obes ity due to excess calories (CMS/HCC) (Primary Dx); BOGDAN (obstructive sleep apnea); Hepatic steatosis; Mixed hyperlipidemia (CMS/HCC); Elevated liver enzymes Start: 09-01-2024 End: 09-01-2024 ambulatory Sana Radford MD Facility:[facility] Start: 08-13-2024 End: 08-13-2024 ambulatory Caitlyn Sparrow MD Facility:[facility] Start: 08-04-2024 End: 08-04-2024 Office outpatient new 30 minutes Sherie Maria DPM Work Phone: [facility] Comment on above: Tinea pedis of both feet (Primary Dx); Chronic dermatitis of feet; Dermatophytosis of nail; Pain around toenail, right foot; Pain around toenail, left foot Start: 08-04-2024 End: 08-04-2024 ambulatory SHERIE MARIA Not Available Start: 08-04-2024 End: 08-04-2024 Bamboo flowsheet Sherie Maria DPM Work Phone: [facility] Start: 08-04-2024 End: 08-04-2024 Bamboo flowsheet Sherie Maria DPM Work Phone: [facility] Start: 07-04-2024 End: 07-04-[address] [facility] Start: 06-16-2024 End: 06-16-2024 Bamboo flowsheet Dorcas Peralta INVENTORY CONTROL/SHIPPING RECEIVING Work Phone: [facility] Start: 06-16-2024 End: 06-16-2024 Bamboo flowsheet Dorcas Peralta INVENTORY CONTROL[employer]SHIPPING RECEIVING Work Phone: [facility] Start: 06-16-2024 [...] 05-29-2024 Refill Nehal Alvarado LPN Work Phone: [facility] Comment on above: Gastroesophageal ref lux disease without esophagitis Rash (Primary Dx); Obesity, Class II, BMI 35-39.9 Start: 05-23-2024 End: 05-23-2024 Office outpatient visit 25 minutes Dorcas Peralta [employer]SHIPPING RECEIVING Work Phone: [facility] Comment on above: Folliculitis (Primar y Dx); Obesity, Class II, BMI 35-39.9; Morbid (severe) obesity due to excess calories ([facility]); Gastro-esophageal reflux disease without esophagitis; Body mass index (BMI) 39.0-39.9, adult; Bipolar disorder, unspecified ([facility]) Start: 05-23-2024 End: 05-23-2024 ambulatory DORCAS PERALTA Not Available Start: 05-22-2024 End: 05-22-2024 Orders Only Dorcas Peralta [employer] CONTROL[employer]SHIPPING RECEIVING Work Phone: [facility] Comment on above: Dermatitis (Primary Dx) Start: 05-19-2024 End: 05-19-2024 ambulatory [facility] Start: 05-19-2024 End: 05-19-2024 [facility] Start: 05-14-2024 End: 05-14-2024 Bamboo flowsheet Dorcas Peralta INVENTORY CONTROL/SHIPPING RECEIVING Work Phone: [facility] Start: 05-14-2024 End: 05-14-2024 Bamboo flowsheet Dorcas Peralta INVENTORY CONTROL[employer]SHIPPING RECEIVING Work Phone: [facility] Start: 05-14-2024 End: 05-14-2024 Office outpatient new 45 minutes Dorcas Peralta [employer]ORY [employer]OL[employer]SHIPPING RECEIVING Work Phone: [facility] Comment on above: Obesity, Class II, B VT 35-39.9 (Primary Dx); Encounter to establish care Start: 05-14-2024 End: 05-14-2024 ambulatory DORCAS PERALTA Not Available Start: 05-05-2024 End: 05-05-2024 ambulatory [facility] Start: 03-24-2024 End: 03-24-2024 ambulatory CAITLYN Griffiths KYARA [facility] Start: 03-23-2024 End: 03-24-2024 Emergency department patient visit LUIZA ORDOÑEZ [facility] Start: 03-23-2024 End: 03-23-2024 Emergency department patient visit CAITLYN Griffiths KYARA [facility] Start: 03-10-2024 End: 04-10-2024 ambulatory [facility] Start: 03-08-2024 End: 03-08-2024 Emergency department patient visit CAITLYN Griffiths KYARA [facility] Start: 03-03-2024 End: 03-03-2024 ambulatory Caitlyn Sparrow MD Facility:[facility] Start: 02-29-2024 End: 02-29-2024 ambulatory CAITLYN Griffiths [facility] Start: 02-18-2024 End: 02-18-2024 ambulatory Caitlyn Sparrow MD Facility:[facility] Start: 02-11-2024 End: 03-10-2024 ambulatory [facility] Start: 01-28-2024 End: 01-28-2024 ambulatory Caitlyn Sparrow MD Facility:[facility] Start: 01-23-2024 End: 02-09-2024 ambulatory [facility] Start: 11-30-2023 End: 11-30-2023 ambulatory [facility] Start: 11-30-2023 Encounter for genera l adult medical examination without abnormal findings [facility] Start: 08-09-2023 Refill Raymond Pierre ph, [...] 02-23-2022 End: 02-23-2022 ambulatory Karel Elaine Other [employer] Other Start: 02-23-2022 Telephone encounter Karel Elaine [facility] Start: 01-09-2022 Refill Raymond Pierre ph, MD Work Phone: Neurology Comment on above: Refill Request Start: 01-04-2022 End: 01-04-2022 ambulatory Karel Elaine Other [employer] [employer] Other Start: 01-04-2022 Telephone encounter Karel Elaine [facility] Start: 12-12-2021 End: 12-12-2021 ambulatory Karel Elaine Other [employer] Other Start: 12-12-2021 Telephone encounter Karel Elaine [facility] Start: 11-30-2021 End: 12-01-[address] MUNIRA DEAL Facility:[facility] Start: 11-16-2021 End: 11-16-2021 ambulatory Karel Elaine Other [employer] Other Start: 11-16-2021 Telephone encounter Karel Elaine [facility] Start: 10-11-2021 Encounter for preprocedural laboratory examination DR MUNIRA DEAL [facility] Start: 10-11-2021 End: 10-11-2021 ambulatory [...] 08-03-2021 End: 08-03-2021 ambulatory Karel Elaine Other [employer] Other Start: 08-03-2021 Telephone encounter Karel Elaine [facility] Start: 07-28-2021 End: 07-28-2021 ambulatory Karel Elaine Other [employer] Other Start: 07-28-2021 Telephone encounter Karel Elaine [facility] Start: 11-10-2019 End: 11-11-2019 Patient encounter procedure BRADLEY SIMMONS [facility] Start: 11-10-2019 End: 11-10-2019 Subsequent hospital visit by physician Bradley Simmons Work Phone: [facility] Comment on above: Arrived Procedures Date Procedure Procedure Detail Performing Clinician Start: 10-03-2021 Adult depression screening assessment Raymond Medina MD Work Phone: Plan of Treatment Date Care Activity Detail Author Start: 2036 Shingles Vaccine (1 of 2) Shingles Vaccine (1 of 2) [facility] [place] Start: 06-10-2025 Influenza vaccination Influenza Vacc ine (#1) [facility] Comment on above: Postponed from 05/11 (Patient Refused) Start: 12-15-2024 End: 12-15-2024 Patient encounter procedure 12/15/2024 11:00 AM EDT Office Visit [facility] [address] [place] [address] Dorcas Peralta NP [address] [place] [address] [facility] Start: 11-08-2024 Medicare Annual Well ness (AWV) Medicare Annual Wellness (AWV) [facility] Start: 10-27-2024 End: 10-27-2024 Patient encounter procedure 10/27/2024 4:15 PM EST Office Visit [facility] [address] [place] [address] Sherie Maria, JOSE [address] [place] [address] [facility] Start: 09-15-2024 End: 09-15-2024 Patient encounter procedure 09/15/2024 11:00 AM EST Office Visit [facility] [address] [place] [phone] Dorcas Peralta NP [address] [facility] [place] [address] [facility] Start: 08-04-2024 End: 08-04-2024 Patient encounter procedure 08/04/2024 3:30 PM EST Office Visit [facility] [address] [place] [address] Sherie Maria DPM [address] [place] [address] Arrived [facility] Comment on above: Arrived Start: 06-16-2024 End: 06-16-2024 Patient encounter procedure [facility] Comment on above: Arrived Start: 05-14-2024 End: 05-14-2024 Patient encounter procedure 05/14/2024 11:30 AM EDT Office Visit [facility] [address] [facility] [place] [phone] Dorcas Peralta NP [address] [facility] [place] [address] Arrived [facility] Comment on above: Arrived Start: 05-11-2024 Influenza vaccination Influenza Vacc ine (#1) [facility] Start: 05-11-2023 Influenza vaccination C [facility] Start: 10-03-2022 Adult depression screening assessment DEPRESSION SCREENING [facility] Start: 09-10-2022 DEPRESSION ASSESSMENT DEPRESSION ASS ESSMENT [facility] Start: 05-11-2022 Influenza vaccination C [facility] Start: 03-29-2020 End: 03-29-2020 Appointment 03/29/2020 Appointment General Surgery Bradley Simmons MD [facility] [place] [address] [phone] [facility] Start: 05-11-2019 Influenza vaccination Flu vaccine (# 1) [place], [place] Start: 2016 HPV TESTING HPV TESTING [facility] Start: 2016 Screening for malign ant neoplasm of cervix [facility] Start: 2007 Cervical cancer screen Cervical canc er screen [place], [place] Start: 2007 PAP TESTING PAP TESTING [facility] Start: 2007 Screening for malign ant neoplasm of cervix [facility] Start: 2005 Urine microalbumin profile DTAP,TDAP,TD (1 - Tdap) [facility] Start: 2004 HEPATITIS C SCREENING HEPATITIS C [facility] Start: 2004 Hepatitis C screening Hepatitis C [facility] Start: 2004 HIV SCREENING HIV SCREENING [facility] Start: 2004 HIV screening HIV Screening [facility] Start: 2001 HIV screen HIV screen [place], [place] Start: 12-25-1997 Urine microalbumin profile DTaP,Tdap,Td Vaccine (6 - Tdap) [facility] Start: 1997 DTaP/Tdap/Td vaccine (1 - Tdap) DTaP/Tdap/Td vaccine (1 - Tdap) [place], [place] Start: 1991 COVID-19 VACCINE (1) COVID-19 VACCIN E (1) [facility] Start: 1987 Varicella vaccine (1 of 2 - 2-dose childhood series) Varicella vaccine (1 of 2 - 2-dose childhood series) [place], [place] Start: 01-14-1987 COVID-19 VACCINE (#1) COVID-19 VACCI NE (#1) [facility] Start: 1986 HEPATITIS B (1 of 3 - 3-dose series) HEPATITIS B (1 of 3 - 3-dose series) [facility] Start: 1986 Medicare Annual Well ness (AWV) Medicare Annual Wellness (AWV) [facility] Immunizations Immunization Date Immunization Notes Care Provider Fa kamron 05-15-2023 Influenza, injectabl e, Madin Renetta Canine Kidney, quadrivalent with preservative Dorcas Kampfer [employer]CEIVING Work Phone: [facility] 05-15-2023 influenza virus vacc ine, unspecified formulation Dorcas Kampfer [employer]ORY [employer]SHIPPING RECEIVING Work Phone: [facility] 07-13-2022 Influenza, injectabl e, Madin [place] Canine Kidney, preservative free, quadrivalent Dorcas Kampfer [employer]ORY [employer]SHIPPING RECEIVING Work Phone: [facility] 09-13-2021 influenza, injectabl e, quadrivalent, preservative free Dorcas Kampfer [employer]ORY [employer]SHIPPING RECEIVING Work Phone: [facility] 08-22-2019 influenza, injectabl e, quadrivalent, contains preservative Dorcas Kampfer INVENTORY CONTROL/SHIPPING RECEIVING Work Phone: [facility] 08-22-2019 influenza virus vacc ine, unspecified formulation Raymond Medina MD Work Phone: [facility] 05-25-1998 hepatitis B vaccine, pediatric or pediatric/adolescent dosage Dorcas Kampfer INVENTORY CONTROL/SHIPPING RECEIVING Work Phone: [facility] 12-24-1997 hepatitis B vaccine, pediatric or pediatric/adolescent dosage Dorcas Kampfer INVENTORY CONTROL/SHIPPING RECEIVING Work Phone: [facility] 12-24-1997 TD(adult) unspecifie d formulation Dorcas Kampfer INVENTORY CONTROL/SHIPPING RECEIVING Work Phone: [facility] 11-19-1997 hepatitis B vaccine, pediatric or pediatric/adolescent dosage Dorcas Kampfer INVENTORY CONTROL/SHIPPING RECEIVING Work Phone: [facility] 11-19-1997 measles, mumps and rubella virus vaccine Dorcasdwight Cummingspfer INVENTORY CONTROL/SHIPPING RECEIVING Work Phone: [facility] 10-26-1987 diphtheria, tetanus toxoids and pertussis vaccine Dorcas Kampfer INVENTORY CONTROL/SHIPPING RECEIVING Work Phone: [facility] 10-26-1987 measles, mumps and rubella virus vaccine Dorcas Kampfer INVENTORY CONTROL/SHIPPING RECEIVING Work Phone: [facility] 10-26-1987 trivalent poliovirus vaccine, live, oral Dorcas Kampfer INVENTORY CONTROL/SHIPPING RECEIVING Work Phone: [facility] 02-17-1987 diphtheria, tetanus toxoids and pertussis vaccine Dorcas Kampfer INVENTORY CONTROL/SHIPPING RECEIVING Work Phone: [facility] 02-17-1987 trivalent poliovirus vaccine, live, oral Dorcas Kampfer INVENTORY CONTROL/SHIPPING RECEIVING Work Phone: [facility] 1985 diphtheria, tetanus toxoids and pertussis vaccine Dorcas Kampfer INVENTORY CONTROL/SHIPPING RECEIVING Work Phone: [facility] 1985 trivalent poliovirus vaccine, live, oral Dorcas Kampfer INVENTORY CONTROL/SHIPPING RECEIVING Work Phone: [facility] 1985 diphtheria, tetanus toxoids and pertussis vaccine Dorcas Kampfer INVENTORY CONTROL/SHIPPING RECEIVING Work Phone: [facility] 1986 trivalent poliovirus vaccine, live, oral Dorcas Kampfer INVENTORY CONTROL/SHIPPING RECEIVING Work Phone: [facility] Payers Date Payer Category Payer Medicare [id number] 2019 Medicaid MEDICAID [facility] MEDICAID [id number] 2019-Present [phone] [address] [place] [address] Medicaid [id number] 2019 Medicaid [id number] .[id number] 2019 Medicare MEDICARE MEDICAR E A AND B [id number] 2019-Present [phone] [address] [address] [place] [address] Medicare [id number] [id number] 2019 Medicare [id number] [id number] .[id number] 2014 Medicaid MEDICAID [facility] DEPT OF JOB xxxxxxxxxxxx 2014-Present [phone] [address] [place] [address] xxxxxxxxxxxx [id number] .[id number] 2014 Medicare MEDICARE MEDICAR E PART A AND B xxxxxxxxxxx 2014-Present [phone] [place] [address] xxxxxxxxxxx [id number].3 .[id number] 1986 Unknown [id number] 2.16.840.1.064605.3.579.2.177 1986 Unknown [id number] 2.16.840.1.155014.3.579.2.593 1986 Unknown [id number] 2.16.840.1.414426.3.579.2.593 1986 Unknown [id number] 2.16.840.1.602521.3.579.2.593 1986 Unknown [id number] 2.16.840.1.250987.3.579.2.593 1986 Unknown [id number] 2.16.840.1.148737.3.579.2.593 1986 Unknown [id number] 2.16.840.1.874189.3.579.2.593 1986 Unknown [id number] 2.16.840.1.145195.3.579.2.593 1986 Unknown [id number] 2.16.840.1.140974.3.579.2.593 1986 Unknown [id number] 2.16.840.1.959331.3.579.2.593 1986 Unknown [id number] 2.16.840.1.448562.3.579.2.196 1986 Unknown [id number] 2.16.840.1.677209.3.579.2.196 1986 Unknown [id number] 2.16.840.1.740252.3.579.2.196 1986 Unknown [id number] 2.16.840.1.999610.3.579.2.196 1986 Unknown [id number] 2.16.840.1.581375.3.579.2.196 1986 Unknown [id number] 2.16.840.1.337041.3.579.2.196 1986 Unknown [id number] 2.16.840.1.342351.3.579.2.125 9 1986 Unknown [id number] 2.16.840.1.641731.3.579.2.125 9 1986 Unknown [id number] 2.16.840.1.205106.3.579.2.125 9 1986 Unknown [id number] 2.16.840.1.431023.3.579.2.125 9 1986 Unknown [id number] 2.16.840.1.444613.3.579.2.125 9 1986 Unknown [id number] 2.16.840.1.468867.3.579.2.128 6 1986 Unknown [id number] 2.16.840.1.266635.3.579.2.128 6 1986 Unknown [id number] 2.16.840.1.155556.3.579.2.128 6 1986 Unknown [id number] 2.16.840.1.162497.3.579.2.128 6 1986 Unknown [id number] 2.16.840.1.115417.3.579.2.128 6 1986 Unknown [id number] 2.16.840.1.495953.3.579.2.128 6 1986 Unknown [id number] 2.16.840.1.762003.3.579.2.128 6 1986 Unknown [id number] 2.16.840.1.027490.3.579.2.128 6 1986 Unknown [id number] 2.16.840.1.902997.3.579.2.128 6 1986 Unknown [id number] 2.16.840.1.919556.3.579.2.128 6 1986 Unknown [id number] 2.16.840.1.449826.3.579.2.128 6 1986 Unknown [id number] 2.16.840.1.146097.3.579.2.128 6 1986 Unknown [id number] 2.16.840.1.529546.3.579.2.128 6 1986 Unknown [id number] 2.16.840.1.119491.3.579.2.128 6 1986 Unknown [id number] 2.16.840.1.954476.3.579.2.128 6 1986 Unknown [id number] 2.16.840.1.149390.3.579.2.128 6 1986 Unknown [id number] 2.16.840.1.997603.3.579.2.128 6 1986 Unknown [id number] 2.16.840.1.054568.3.579.2.128 6 1986 Unknown [id number] 2.16.840.1.492717.3.579.2.128 6 1959 Medicaid [id number] 1958 Medicare [id number] Social History Date Type Detail Facility Start: 11-25-2018 End: 11-10-2019 Tobacco smoking status MOIS Never smoker [facility] Start: 11-10-2019 End: 09-15-2024 Alcohol intake Current drinker of alcohol (finding) [place], [place] Start: 11-10-2019 Alcohol Comment [place], [place] Start: 1985 Sex Assigned At Not on file [place] Start: 11-25-2018 End: 05-14-2024 Tobacco use and exposure Smokeless tobacco non-user [facility] Start: 11-25-2018 History SDOH Alcohol Comment [facility] Start: 04-21-2019 End: 09-14-2024 Sex Assigned At [facility] Start: 04-21-2019 End: 09-14-2024 History of Social function [facility] Adult Depression Screening Assessment 4 [facility] Start: 05-14-2024 Tobacco smoking status [facility] Smokes tobacco daily [facility] Start: 05-14-2024 Tobacco Comment Vapes daily [facility] Start: 05-14-2024 Alcohol Comment caffeine intake: 12 oz coffee daily [facility] Tobacco smoking stat us [facility] Tobacco smoking consumption unknown [facility] Do you belong to any clubs or organizations such as jewish groups, unions, fraternal or athletic groups, or [...] got money to buy more. Never true [facility] Clinical Notes 09-15-2021 to 09-15-2024 [...] have her cholesterol levels checked tomorrow. Her rd mechanical engineer has expressed concern over her fluctuating liver enzyme levels and has ordered a retest. She has not undergone any extensive workup for her liver, only lab tests. Her liver enzyme levels have shown variability in the past. She is uncertain if she has fatty liver disease. She has been prescribed a swedish for a toenail fungus, which has proven [...] tablet 1 tablet, Every 6 hours PRN [place]-3 Fatty Acids (FISH OIL OMEGA-3 PO) 2 [...] agreeable to this. documented in this encounter [facility] 08-11-2024 Note Patient Education Ma terials Name: MayuriMarita mariscal Adriana Current Date: 08/11/2024 16:18:15 [facility] : 1985 The following sheet(s) are the [...] breast self-exam (BSE). These experts include the [place] [employer] and the [place] [employer]st[employer]ians and Gynecologists. Some experts [...] This means they are not cancer. ? 1010-4108 [employer]. All rights reserved. This information is [...] prevent urine, gas, or stool leakage. ? 6243-5220 [employer]. All rights reserved. This information is not intended as a substitute fo (more content not included)... [facility] 08-04-2024 History of Present illness Narrative Subjective Patient ID: Marita Messina is a 39 y.o. female who presents for Fungus (Pt is here today for fungal nails, first noticed about 1 yr ago. Also athlete's foot BL. She has tried OTC topical fungal swedish, no change noted. /SS:8 ). HPI Initial [...] and not practical. Patient typically has toenail swedish on a constant basis. Also complains of [...] (six) hours if needed, Disp: , Rfl: [place]-3 Fatty Acids (FISH OIL OMEGA-3 PO), Take [...] most recent hepatic enzymes elevated (May 2024). [place] agreement to proceed with topical care measures: [...] Sherie Maria DPM documented in this encounter [facility] 08-04-2024 Instructions Sherie Maria DPM - 08/04/2024 3:30 PM EST As noted documented in this encounter [facility] 06-16-2024 History of Present illness Narrative Images [...] 1 tablet, Oral, Every 6 hours PRN [place]-3 Fatty Acids (FISH OIL OMEGA-3 PO) 2 [...] PCAB accredited and rated highly by the 3scale. Prescription sent to pharmacy Bipolar disorder in full remission, most recent episode unspecified type (CMS/HCC) -Followed by psych Mixed dyslipidemia (CMS/HCC) -Followed by cardiology documented in this encounter [facility] 05-23-2024 History of Present illness Narrative Images [...] Morbid (severe) obesity due to excess calories ([facility]) Gastro-esophageal reflux disease without esophagitis Body mass index (BMI) 39.0-39.9, adult Bipolar disorder, unspecified ([facility]) documented in this encounter [facility] 05-22-2024 History of Present illness Narrative klo documented in this encounter [facility] 05-14-2024 History of Present illness Narrative Marita [...] to be refilled. documented in this encounter [facility] 08-09-2023 Miscellaneous Notes Please see pended medication. Pharmacy linked. Last ordered 03/09/2023. Ashtyn Perez MA documented in this encounter [facility] 03-09-2023 Miscellaneous Notes Please see pended medication. Pharmacy linked. Last ordered 10/25/2022. Ashtyn Perez MA documented in this encounter [facility] 07-11-2022 Note CONSULTATION PROCEDURE DATE: 07/11/2022 [...] be followed up in the office. [facility] 07-11-2022 Note CONSULTATION CONSULTATION DATE: 07/11/2022 CHIEF COMPLAINT: Trapezius and upper back pain. HISTORY OF PRESENT ILLNESS: This is a 36-year-old female who is known to the Pain [facility]. The patient, in October of this year, had a rhizotomy radiofrequency ablation along her cervical spine. This has afforded the patient significant improvement. 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 CC: Caitlyn Sparrow M.D. [facility] 05-23-2022 Miscellaneous Notes Please see pended medication. Pharmacy linked. Last ordered 10/20/2021. Ashtyn Perez Ma documented in this encounter [facility] 03-08-2022 Note CONSULTATION CONSULTATION DATE: 03/08/2022 [...] Patient does agree with plan of care. [facility] Signed and Approved by: LUDA RODRIGUEZ . 03/09/2022 13:38:00 [facility] 01-09-2022 Miscellaneous Notes Please see pended medication. Pharmacy linked. Last ordered 07/05/2021. Ashtyn Perez Ma documented in this encounter [facility] 11-30-2021 Note CONSULTATION PAIN MANAGEMENT CONSULTATION [...] time, and patient agrees to this plan. [facility] Signed and Approved by: LUDA RODRIGUEZ . 12/01/2021 12:26:00 [facility] 09-15-2021 Note The [place], [place] NAME: MARITA MESSINA DATE OF : MEDICAL REC#: [id number] SINGEING TORCH OPERATOR: [id number] LILIANA DAWKINS ADMIT DATE: 09/15/2021 12:21:00 INVESTIGATION DIVISION CAPTAIN DATE: 09/16/2021 11:00 DICTATING PHYSICIAN: LUDA RODRIGUEZ [...] by: LUDA RODRIGUEZ . 09/25/2021 23:23:00 [facility] Evaluation note Diagnosis Excessive physiologic tremor Essential and other specified forms of tremor [facility] Other Evaluation note* Diagnosis Daytime sleepiness Narcolepsy without cataplexy [facility] Diagnosis Daytime sleepiness Narcolepsy without cataplexy [facility] Diagnosis Daytime sleepiness Narcolepsy without cataplexy [facility] Morbid (severe) obesity due to excess calories ([facility])- Primary Bipolar disorder in full remission, most recent episode unspecified type (CMS/HCC) Mixed dyslipidemia ([facility]) documented in this encounter [facility]* Diagnosis Tinea pedis of both feet- Primary Chronic dermatitis of feet Contact dermatitis and other eczema, due to unspecified cause Dermatophytosis of nail Pain around toenail, right foot Pain around toenail, left foot documented in this encounter [facility] note* Diagnosis Dermatitis- Primary Contact dermatitis and other eczema, due to unspecified cause documented in this encounter [facility]* Diagnosis Folliculitis- Primary Other specified disease of hair and hair follicles Obesity, Class II, BMI 35-39.9 Morbid (severe) obesity due to excess calories (CMS/HCC) Gastro-esophageal reflux disease without esophagitis Body mass index (BMI) 39.0-39.9, adult Bipolar disorder, unspecified (CMS/HCC) Bipolar disorder, unspecified documented in this encounter [facility] note* Diagnosis Gastroesophageal reflux disease without esophagitis Esophageal reflux documented in this encounter [facility]* Diagnosis Obesity, Class II, BMI 35-39.9- Primary Encounter to establish care [facility] Diagnosis Rash- Primary Rash and other nonspecific skin eruption Obesity, Class II, BMI 35-39.9 documented in this encounter [facility]* Diagnosis Morbid (severe) obesity due to excess calories (CMS/HCC)- Primary BOGDAN (obstructive sleep apnea) Obstructive sleep apnea (adult) (pediatric) Hepatic steatosis Other chronic nonalcoholic liver disease Mixed hyperlipidemia (CMS/HCC) Mixed hyperlipidemia Elevated liver enzymes Other nonspecific abnormal serum enzyme levels documented in this encounter [facility]* Diagnosis Obstructive sleep apnea syndrome Obstructive sleep apnea (adult) (pediatric) documented in this encounter [facility]* Diagnosis Tremor- Primary Abnormal involuntary movements documented in this encounter [facility] Healthcare Summary Purpose Family History No Family History Records FoundNo Family History Records FoundNo Family History Records FoundNo Family History Records FoundNo Family History Records FoundNo Family History Records FoundNo Family History Records Found Advance Directives Documents on File Type Date Recorded Patient Fingernail Sculpturer Expl anation Advance Directives and Living Will Power of Coin Collector History of Present Illness * Bradley Simmons MD - 11/10/2019 2:00 PM EST [facility] PATIENT NAME: Marita Messina MRN NUMBER: [id number] DATE OF : 1985 PHONE NUMBER: [phone] PRIMARY CARE PHYSICIAN: No primary care provider [...] year had repair above belly button at [facility] HERNIA REPAIR umbilical and above belly buton also at [facility] about 2 years ago HYSTERECTOMY TUMOR REMOVAL Left 2012 left thumb at [facility] Family History: Family History Problem Relation [...] [facility] and [...] and content) DATE CREATED AUTHOR 05/31/2019 [facility] DATE CREATED AUTHOR AUTHOR'S ORGANIZ ATION 11/11/2019 [facility] DATE CREATED AUTHOR AUTHOR'S ORGANIZ ATION 12/01/2021 [facility] DATE CREATED AUTHOR AUTHOR'S ORGANIZ ATION 09/02/2022 [facility] DATE CREATED AUTHOR AUTHOR'S ORGANIZ ATION 09/05/2024 [facility] DATE CREATED AUTHOR AUTHOR'S ORGANIZ ATION 09/21/2024 [facility] DATE CREATED AUTHOR AUTHOR'S ORGANIZ ATION 09/21/2024 [facility] [place] [facility] Source Comments (unrecognize d section and content) In the event this informatio n is protected by the Federal Confidentiality of Alcohol and Drug Abuse Patient Records regulations: The Federal rules restrict any use of the information to criminally investigate or prosecute any alcohol or drug abuse patient.[facility] the event this information is protected by the Federal Confidentiality of Alcohol and Drug Abuse Patient Records regulations: The Federal rules restrict any use of the information to criminally investigate or prosecute any alcohol or drug abuse patient.[facility] the event this information is protected by the Federal Confidentiality of Alcohol and Drug Abuse Patient Records regulations: The Federal rules restrict any use of the information to criminally investigate or prosecute any alcohol or drug abuse patient.[facility] the event this information is protected by the Federal Confidentiality of Alcohol and Drug Abuse Patient Records regulations: The Federal rules restrict any use of the information to criminally investigate or prosecute any alcohol or drug abuse patient.[facility] Reason for Visit (unrecogniz ed section and content) Reason Onset Date Comments Refill Request 01/09/2022 Reason Onset Date Comments Refill Request 03/09/2023 Reason Onset Date Comments Refill Request 08/09/2023 Reason Comments Follow-up Reason Comments Fungus Pt is here today for fungal nails, first noticed about 1 yr ago. Also athlete's foot BL. She has tried OTC topical fungal swedish, no change noted. SS:8 Reason Comments Rash Reason Onset Date Comments Med Refill 05/26/2024 Reason Comments Establish Care Weight Loss Reason Comments Weight Check Reason Onset Date Comments Med Refill 09/20/2024 Care Teams (unrecognized sec tion and content) [employer] Spray Unit Feeder Relationship Specialty Start Date End Date Caitlyn Sparrow [address] [place], [place] [id number] PCP - General Internal Medicine 11/25/18 [employer] Spr[employer] Unit Feeder Relationship Specialty Start Date End Date Caitlyn Sparrow [address] [place] [address] PCP - General Internal Medicine 11/25/18 [employer] Spr[employer] Unit Feeder Relationship Specialty Start Date End Date Caitlyn Sparrow [address] [place] [address] PCP - General Internal Medicine 11/25/18 [employer] Spr[employer] Unit Feeder Relationship Specialty Start Date End Date Caitlyn Sparrow [address] [place] [address] PCP - General Internal Medicine 11/25/18 [employer] Spr[employer] Unit Feeder Relationship Specialty Start Date End Date Jo-Ann Carlson MD [address] [place] [address] PCP - General Family Medicine 05/09/24 [employer] Spr[employer] Unit Feeder Relationship Specialty Start Date End Date Jo-Ann Carlson MD [address] [place] [address] PCP - General Family Medicine 05/09/24 [employer] Spr[employer] Unit Feeder Relationship Specialty Start Date End Date Jo-Ann Carlson MD [address] [place] [address] PCP - General Family Medicine 05/09/24 [employer] Spr[employer] Unit Feeder Relationship Specialty Start Date End Date Jo-Ann Carlson MD [address] [place] [address] PCP - General Family Medicine 05/09/24 [employer] Spr[employer] Unit Feeder Relationship Specialty Start Date End Date Jo-Ann Carlson MD [address] [place] [address] PCP - General Family Medicine 05/09/24 [employer] Spr[employer] Unit Feeder Relationship Specialty Start Date End Date Jo-Ann Carlson MD [address] [place] [address] PCP - General Family Medicine 05/09/24 [employer] Spr[employer] Unit Feeder Relationship Specialty Start Date End Date Jo-Ann Carlson MD [address] [place] [address] PCP - General Family Medicine 05/09/24 [employer] Spr[employer] Unit Feeder Relationship Specialty Start Date End Date Jo-Ann Carlson MD [address] [place] [address] PCP - General Family Medicine 05/09/24 [employer] Spr[employer] Unit Feeder Relationship Specialty Start Date End Date Jo-Ann Carlson MD [address] [place] [address] PCP - General Family Medicine 05/09/24 [employer] Spray Unit Feeder Relationship Specialty Start Date End Date Jo-Ann Carlson MD [address] [place] [address] PCP - General Family Medicine 05/09/24 Jo-Ann Carlson MD [address] [place] [address] PCP - [employer] 09/10/24 [employer] Spray Unit Feeder Relationship Specialty Start Date End Date Jo-Ann Carlson MD [address] [place] [address] PCP - General Family Medicine 05/09/24 Jo-Ann Carlson MD [address] [place] [address] PCP - [employer] 09/10/24 FOR RECORDS PERTAINING [...] BE BASED ON THE PRIMARY CLINICAL RECORDS. [facility] [employer] [facility]. provides no warranty or guarantee of the accuracy or completeness of information in this document.
--- NOTE | 2024-10-16 11:02 | P.CN_ITS ---
Consult Note: HPI Data of Consult Patient: known to practice within the last 3 years Requesting Physician: Michelle Randhawa NP Primary Care Provider: CAITLYN SPARROW Consult Narrative Reason for consult: f/u Narrative: Marita Messina a pleasant 39 year old female presents for evaluation of chronic neck pain. Patient has tried and failed OTC medications, home based exercise program and cervical traction greater than 6 weeks. Pt recently underwent cervical MRI which is consistent for cervical spondylosis and DDD, previously found benefit to right and left C3-4 C5-6 facet RFAs. currently utilizing flexeril 10mg BID and gabapentin 600mg BID with benefit without side effects. NAHUN 22%. recently underwent bilateral C3/4 C5/6 MBB #1 with 100% improvement in neck pain immediately following and hours after, preop pain up to 8/10 post op pain 0/10. Pain today 4/10 today aching increasing with twisting, pushing, pulling, looking, lifting, housework, sleep. Pain improved with lying, heat, and sitting. cc:: CC: Michelle Randhawa NP Review of Systems ROS Status of ROS 10 or more systems reviewed and unremark able except as noted in history and below Musculoskeletal Reports: neck pain PFSH PFSH Medical History Anxiety ?F41.9 - Anxiety disorder, unspecified (ICD-10) Hiatal hernia ?K44.9 - Diaphragmatic hernia without obstruction or gangrene (ICD-10) Acid reflux ?K21.9 - Gastro-esophageal reflux disease without esophagitis (ICD-10) Pulmonary embolism ?I26.99 - Other pulmonary embolism without acute cor pulmonale (ICD-10) Asthma ?J45.909 - Unspecified asthma, uncomplicated (ICD-10) Surgical History History of surgical removal of Bartholin’s gland cyst ?Z98.890 - Other specified postprocedural states (ICD-10) ?Z87.42 - Personal history of other diseases of the female genital tract (ICD-10) History of eye surgery ?Z98.890 - Other specified postprocedural states (ICD-10) [place] teeth extracted ?K08.409 - Partial loss of teeth, unspecified cause, unspecified class (ICD- 10) History of hernia repair ?Z98.890 - Other specified postprocedural states (ICD-10) ?Z87.19 - Personal history of other diseases of the digestive system (ICD-10) History of hysterectomy ?Z90.710 - Acquired absence of both cervix and uterus (ICD-10) Meds Home Medications and Allergies Home Medications ?Medication ?Instructions ?Recorded ?Confirmed ?Type albuterol sulfate 90 mcg/actuation 2 puff inhalation Q6H PRN 06/22/23 10/13/24 History aerosol inhaler shortness of breath or wheezing buspirone 15 mg tablet 15 mg PO BID 06/22/23 10/13/24 History cariprazine 3 mg capsule (Vraylar) 6 mg PO DAILY 06/22/23 10/13/24 History erenumab-aooe 70 mg/mL 70 mg subcut .monthly 06/22/23 10/13/24 History subcutaneous auto-injector (Aimovig Autoinjector) fluoxetine 40 mg capsule (Prozac) 40 mg PO DAILY 06/22/23 10/13/24 History omeprazole 20 mg capsule,delayed 40 mg PO BID 06/22/23 10/13/24 History release propranolol 20 mg tablet 20 mg PO Q12H 06/22/23 10/13/24 History rizatriptan 5 mg tablet 5 mg PO Q2H PRN migraine headache 06/22/23 10/13/24 History cyclobenzaprine 10 mg tablet 10 mg PO BID 02/07/24 10/13/24 History cyclobenzaprine 10 mg tablet 15 mg (1.5 x 10 mg) PO TID PRN 05/08/24 10/13/24 Rx muscle spasm #135 tabs gabapentin 300 mg capsule 600 mg PO BID 06/18/24 10/13/24 History gabapentin 300 mg capsule See Rx Instructions .Route 08/05/24 10/13/24 Rx .COMPLEX #120 caps evolocumab 140 mg/mL subcutaneous mg subcut 09/01/24 History syringe (Repatha Syringe) tirzepatide (weight loss) 2.5 2.5 mg subcut QWEEK 10/13/24 10/13/24 History mg/0.5 mL subcutaneous pen injector (Zepbound) Allergies Allergy/AdvReac Type Severity Reaction Status Date / Time hydrocodone (From Vicodin) Allergy Hives Verified 10/13/24 09:28 Exam Narrative Exam Narrative: diffuse myofascial pain and tenderness Constitutional Documenting provider has reviewed patient's vital signs: yes Common normals: no apparent distress, oriented x3, healthy appearing, alert and well nourished General appearance: cooperative HENMT Common normals: normocephalic, hearing grossly normal bilaterally and moist oral mucous membranes Head and scalp: normocephalic Eye Common normals: PERRL Pupil: PERRL Neck & C-Spine Common normals: full ROM General: normal visual inspection Cervical spine: cervical ROM normal, pain with cervical ROM and cervical spine tenderness; no paracervical muscle tenderness and no trapezius muscle tenderness Other: pain with flexion extension and rotation negative spurlings positive facet loading pain over C2-5 facets Chest Common normals: inspection of chest normal Respiratory Common normals: normal respiratory effort, no retractions and no use of accessory muscles Extremity Common normals: normal to inspection and full ROM Neuro Common normals: oriented x3, CN's II-XII intact bilaterally, moves all extremities, no focal motor deficits, no sensory deficits noted and deep tendon reflexes 2+ bilaterally Sensorium/orientation: alert Motor exam: strength 5/5 throughout and no movement abnormalities noted Psych Common normals: mental status grossly normal, thought process normal, cooperative, affect normal, speech normal and activity/motor behavior normal Speech: normal speech Thought process: normal thought process Results Additional Findings Additional findings: If on a controlled substance or opioids, I have checked an [place] report on this patient and there are no aberrancies noted in the prescribing history.??If on a controlled substance or opioid a drug screen was completed and reviewed within the last year, and if there has not been a drug screen completed we ordered one today to monitor higher risk, state monitored pain medication use. As part of providing excellent, safe, comprehensive care, the following was completed at our patient's visit: 1. A medication reconciliation and review to ensure accurate knowledge of current/active medications, including asking our patients to inform us about any [id number] medications or herbal remedies/nutritional supplements/alternative remedies. 2. A review to specifically ensure our patients have had annual screening for screening for depression, screening for tobacco use, and screening for unhealthy alcohol use. For concerning screenings had a discussion with the patient, provided patient education, and recommended follow-up with primary care provider when appropriate. If patient noted with a risk of falling, they received education on strength, gait, and balance training to prevent future risk of falling. Portions of this note may have been carried over from the previous visit and updated as appropriate. Please note this office utilizes paper charting in addition to the electronic medical record. A list of current medications, vitals, and PMH is available there as the clinical staff outside of myself do not have access to [employer] charting during the clinic day operations. As part of providing quality comprehensive care the current medications, vitals, and PMH were reviewed in the paper chart. Assessment and Plan Assessment and Plan (1) Cervical spondylosis: Assessment and Plan: The patient has had over 3 months of moderate to severe neck pain with functional impairment and inadequate response to conservative care including NSAIDS (unless there are contraindication such as concurrent blood thinners), multiple oral or topical pain medications, and home exercise program/physical therapy.? Patient has completed >6 weeks of guided home exercise program and/or formal physical therapy program without relief of their symptoms.? The Oswestry Disability Index was completed, and the patient scored a 20%.? We discussed the risks and benefits of the procedure with the patient, and we are NOT planning on using sedation as outlined in the guidelines from Medicare unless there is a documented reason that sedation would be strongly recommended.?? ?The procedure will be completed with fluoroscopic guidance.? (2) Degenerative disc disease, cervical: (3) Chronic pain syndrome: (4) Myofascial pain syndrome: Plan bilateral C3-4 C5-6 MBB x2 under fluoroscopy working towards RFA continue current medications, finding benefit continue TENS and HEP as tolerated f/u after each injection
== END 2024-10-16 10:51 | disposition home or self-care (01) ==
LOC: PM 10:50
PROVIDERS: PCP Internal Medicine; Visit Provider Nurse Practitioner
DX: M47.812 Spondylosis without myelopathy or radiculopathy, cervical region (principal); M50.30 Other cervical disc degeneration, unspecified cervical region; G89.4 Chronic pain syndrome; M79.18 Myalgia, other site
CPT/HCPCS: G0463

== ENCOUNTER 2024-11-10 08:36 | Day surgery (SDC) | payer MEDICARE, MEDICAID, SELFPAY ==
[2024-11-10 09:12] VITALS: BP 129/81; PULSE 89; TEMP 36.5; O2SAT 98
[2024-11-10 09:51] VITALS: BP 121/69; PULSE 87; O2SAT 98
[2024-11-10 09:54] VITALS: BP 130/72; PULSE 86; O2SAT 98
[2024-11-10] MEDS: BUPIVACAINE HCL 0.25% PF 25 MG/10 ML VIAL 8 ML INJ (09:55)
[2024-11-10] MEDS: LIDOCAINE HCL 2% 400 MG/20 ML MDV INJ (09:56)
--- NOTE | 2024-11-10 09:57 | W.PM.PROCNOT ---
Date of procedure: 11/10/24 Pre-op diagnosis: Pain due to cervical spondylosis without myelopathy Post-op diagnosis: same as pre-op Procedure: Procedure: Bilateral C3-4, C5-6 medial branch block Medications: Bupivacaine 0.25% 6cc The patient was seen and examined in the preoperative holding area.? The informed consent was obtained and placed on the chart.? The patient was brought to the medical procedure unit and placed in the prone position.? A timeout was completed verifying correct patient, procedure site, positioning, plan, and special equipment.? Using aseptic technique, the needle was placed at left C3.? Under direct fluoroscopic visualization, a Quincke tip needle was advanced to the midpoint of the waist of the articular pillar at the respective medial branch segment. The above-mentioned injectate was placed in a 1 mL aliquot proceeded by negative aspiration.? The needle was removed.? The procedure was completed at all left C4, 5, 6. The same procedure, at the same levels, was then completed on the right side. Insertion site was covered.? Patient was taken to the postprocedural recovery area and monitored for an appropriate length of time before found suitable for discharge in the accompaniment of a responsible adult. Anesthesia: Local Surgeon: Sana Radford Pathology: none sent Condition: stable Disposition: no change
== END 2024-11-10 10:00 | disposition home or self-care (01) ==
LOC: SURGOUT 08:37
PROVIDERS: PCP Internal Medicine; Visit Provider Anesthesiology
DX: M47.812 Spondylosis without myelopathy or radiculopathy, cervical region (principal)
CPT/HCPCS: 64490; 64491; J0665

== ENCOUNTER 2024-11-13 11:09 | Outpatient (OUT) | payer MEDICARE, MEDICAID, SELFPAY ==
--- OUTSIDE RECORDS SUMMARY | 2024-11-13 11:15 | XMS_ITS | CCD ---
Author Organization [facility] Care Team Providers Care Statement Clerks Supervisor Name Role Phone BRADLEY SIMMONS Referring Unavailable [...] MUNIRA Avalos Admitting Unavailable TOYIN, DR MUNIRA Avalso Admitting Unavailable TOYIN, DR MUNIRA Avalos Attending Unavailable KYARA, DR CAITLYN Griffiths Primary [facility] [place] Unavail able LUDA RODRIGUEZ Consulting Unavailable TOYIN, DR MUNIRA Avalos Attending Unavailable KYARA, DR CAITLYN Griffiths Primary Care Unavail able LUDA RODRIGUEZ Consulting Unavailable TOYIN, DR MUNIRA Avalos Admitting Unavailable Kyara, [facility] Provider Robyn CLEMONS, Jo-Ann [facility] Care Provider Robyn CLEMONS, Jo-Ann Unavailable Kyara CLEMONS, [facility] Ness vailable Malina CLEMONS, Sana Doyle Attending Unavailable Kyara CLEMONS, [facility] Ness vailable Malina CLEMONS, Sana Doyle Attending Unavailable Kyara CLEMONS, [facility] Ness vailable Malina CLEMONS, Sana Doyle Attending Unavailable Malina CLEMONS, Sana Doyle Attending Unavailable Kyara CLEMONS, [facility] Ness vailable Weihrauch IVETTC, Dorcas Stewart Attending Christian Sparrow MD, [facility] Ness vailable Weihrauch IVETTC, Dorcas Stewart Attending Christian Sparrow MD, [facility] Ness vailable Malina CLEMONS, Sana Doyle Attending Unavailable Kyara CLEMONS, [facility] Ness vailable Kyara CLEMONS, [facility] Provider SHERIE MARIA Attending Unavailable KAMPFERDORCAS Attending Unavailable KAMPFER, DORCAS Attending Unavailable KAMPFER, DORCAS Attending Unavailable SHERIE MARIA Attending Unavailable KAMPTIBURCIO, DORCAS Attending Unavailable KYARA, CAITLYN Referring Unavailabl e KYARA, [facility] Primary Care Unavailjulianne e LEONIDAS SALCIDO Referring Unavailable KYARA, CAITLYN Primary Care Unavailabl e LEONIDAS SALCIDO Referring Unavailable KYARA, [facility] Primary Care Unavailabl e LEONIDAS SALCIDO Referring [...] Attending Unavailable LEONIDAS SALCIDO Referring Unavailable KYARA, CAILTYN Griffiths Primary Care Unavailabl e KYARA, CAITLYN Griffiths Primary Care Unavailabl LUIZA Dorsey Attending Unavailable SMITA, LUIZA Ahumada Attending Unavailable LUIZA WEBB Referring Unavailable KYARA, CAITLYN Griffiths Primary Care Unavailabl e KYARA, CAITLYN Griffiths Referring Unavailabl e KYARA, CAITLYN Griffiths Primary Care Unavailabl e JURGEN ENGLISH Attending Unavailable KYARA, CAITLYN Tunde Referring Unavailabl e KYARA, CAITLYN Griffiths Primary Care Unavailabl e YURI, JURGEN Referring Unavailable KYARA, CAITLYN Griffiths Primary Care Unavailabl e YURI, JURGEN Referring Unavailable KYARA, CAITLYN Griffiths Primary Care Unavailabl e YURI, JURGEN Referring Unavailable KYARA, CAITLYN Griffiths Primary Care Unavailabl e LAQUITA SHARIF Attending Unavailable LAQUITA SHARIF Referring Unavailable KYARA, CAITLYN Griffiths Primary Care Unavailabl e KYARA, CAITLYN Griffiths Referring Unavailabl e JO-ANN GEE G Primary Care Unavailable CELESTE DHALIWAL Referring Unavailable JO-ANN GEE G Primary Care Unavailable Allergies Allergy Classification Reported Allergen(s) Allergy Type Date of Onset Reaction(s) Facility (20 sources) Acetaminophen / HYDROcodone; Translations: [HYDROCODONE-ACETA MINOPHEN] Drug Allergy 10-09-2019 [facility] [place], [place] (9 sources) Acetaminophen / HYDROcodone; Translations: [Vicodin] Drug Allergy 09-10-2014 [facility] Repository Medications Current Medications Medication Drug Class(es) Dates Sig (Normalized) Sig (Original) acetaminophen 325 mg / oxyCODONE hydrochloride 5 mg oral tablet (3 sources) Opioid Agonist take 1 tablet by mouth every twelve hours as needed for pain oxyCODONE-acetaminop hen (PERCOCET) 5-325 mg per tablet Take 1 tablet by mouth every 12 (twelve) hours as needed for pain. Active Aimovig 140 MG/ML (6 sources) inject 140 mg by subcutaneous injection every month Aimovig 140 MG/ML as directed Subcutaneous monthly Active [id number] 200 actuat albuterol 0.09 mg/actuat metered dose inhaler (20 sources) beta2-Adrenergic Agonist take 2 puff(s) by mouth every four to six hours albuterol HFA 90 mcg/act inhaler inhale 2 puffs by mouth and INTO THE LUNGS every 4 to 6 hours if needed Active take 2 puff(s) by in halation every six hours as needed for wheezing albuterol (PROVENTIL HFA;VENTOLIN HFA) 9 0 mcg/actuation inhaler Inhale 2 puffs every 6 (six) hours as needed for wheezing. Active Albuterol prn Ac tive amitriptyline hydrochloride [...] mg/ml / clotrimazole 10 mg/ml topical cream (11 sources) Azole Antifungal, Corticosteroid Start: 08-04-2024 clotrimazole-betamethasone [...] the evening. Active take 2 puff(s) by in halation in the morning budesonide-formoteroL (SYMBICORT) 160-4. 5 mcg/actuation inhaler Inhale 2 puffs in the morning and 2 puffs before bedtime. Active take 2 puff(s) by in halation twice daily budesonide-formoteroL (SYMBICORT) 160-4. 5 mcg/actuation inhaler Inhale 2 puffs 2 (two) times a day. Active take 2 puff(s) by in halation twice daily Symbicort 160-4.5 MCG/ACT 2 puffs Inhala tion Twice a day Active busPIRone hydrochloride 30 mg oral tablet (20 sources) take 1 tablet by mouth in the morning busPIRone (Buspar) 30 MG tablet Take 1 tablet by mouth in the morning and 1 tablet before bedtime. Active cariprazine 6 mg oral capsule (20 sources) Atypical Antipsychotic take 1 capsule by mouth in the morning Vraylar 6 MG capsule Take 1 capsule by mouth in the morning. Active take 1 capsule by mouth in the m orning cariprazine (VRAYLAR) 4.5 mg capsule Take 1 capsule (4.5 mg total) by mouth in the morning. Active cyclobenzaprine hydrochloride 10 mg oral tablet (20 sources) Muscle Relaxant take 1 tablet by [...] 06/02/2024 Active take 1 capsule by mo [facility] every twenty-four hours Doxycycline Hyclate 100 MG [...] MONTH. 3 mL 3 05/30/2021 05/30/2022 Active Start: 02-05-2020 AIMOVIG AUTOIN JECTOR 140 mg/mL auto-injector every 30 (thirty) days. 02/05/2020 Active erenumab (Aimovi g) 140 MG/ML injection Inject 140 mg under the skin every 28 (twenty-eight) days Active Comment on above: INJECT 140 MG SUBCUT ANEOUSLY ONCE EVERY MONTH. Erenumab-aooe (AIMOVIG SC) (1 source) 1 ml evolocumab 140 mg/ml auto-injector (15 sources) PCSK9 Inhibitor Start: 4 Repatha SureClick [...] Start: 11-20-2018 take 1 capsule by mo [facility] once daily FLUoxetine HCl (PROZAC) 40 mg capsule Take 40 mg by mouth once daily. 0 11/20/2018 Active Comment on above: Take 40 mg by mouth once daily. gabapentin 300 mg oral capsule (20 sources) Anti-epileptic Agent Start: 05-09-2024 take 1 capsule by mouth in the morning gabapentin (Neurontin) 300 MG capsule Take 300 mg by mouth in the morning and 300 mg before bedtime. 05/09/2024 Active End: 05-05-2024 take 1 capsule by mouth three times daily gabapentin (NEURONTIN) 300 mg capsule Take 1 capsule (300 mg total) by mouth 3 (three) times a day. 05/05/2024 Discontinued (Discontinued by another clinician) hydrOXYzine pamoate 50 mg oral capsule (12 sources) Antihistamine Start: 08-04-2024 hydrOXYzine pa moate (Vistaril) 50 MG capsule 50 mg 2 (two) times a day as needed 08/04/2024 Active hydrOXYzine HCl 10 MG as directed Orally every 8 hrs for 30 days Active ketoconazole 20 mg/ml medicated shampoo (20 sources) Azole Antifungal Start: 05-26-2024 ketoconazole (NIZOral) [...] time(s) a day for 30 days Active omega 7-yng-rfe-fish oil (Fish OiL) 300-1,000 mg capsule (1 source) Start: 06-10-2024 take 1 capsule by mouth in the morning omega 0-jgt-vbz-fish oil (Fish OiL) 300-1,000 mg capsule Take 2 g by mouth in the morning and 2 g before bedtime. 06/10/2024 Active [place]-3 Fatty Acids (FISH OIL OMEGA-3 PO) (14 sources) take 2 tablets by mouth twice daily in the morning [place]-3 Fatty Acids (FISH OIL OMEGA-3 PO) Take 2 g by mouth in the morning and 2 g before bedtime. 2 g 2 tab bid. . Active omeprazole 20 mg delayed release oral capsule (20 sources) Proton Pump Inhibitor Start: 05-26-2024 End: 12-19-2024 take 1 capsule by mouth once daily omeprazole (PriLOSEC) [address] capsule Indications: Gastroesophageal reflux disease without esophagitis Take 1 capsule (20 mg) by mouth 1 (one) time each day at the same time 90 capsule 09/20/2024 12/19/2024 Active Start: 11-07-2018 omeprazole (Pr iLOSEC) 40 mg capsule 1 capsule (40 mg total) in the morning and at bedtime. 60 capsule 1 01/24/2022 Active take 1 capsule by mo uth twice daily Omeprazole 40 MG 1 capsule 30 minutes before morning meal Orally twice a day Not-Taking take 2 capsules by m outh once daily omeprazole (PRILOSEC) 20 MG delayed release capsule Take 40 mg by mouth daily 0 Active Comment on above: take 1 capsule by mo uth once daily as directed ondansetron 4 mg disintegrating oral tablet (20 sources) Serotonin-3 Receptor Antagonist Start: 02-01-20 take 1 tablet by mouth every eight hours as needed for nausea ondansetron ODT (ZOFRAN ODT) 4 mg disintegrating tablet Dissolve 1 tablet (4 mg total) on tongue every 8 (eight) hours as needed for nausea for up to 10 doses. 10 tablet 01/31/2023 Active Start: 05-25-2021 take 1 tablet by mouth once da lubna Zofran ODT 4 MG 1 tablet on the tongue and allow to dissolve Orally Once a day for 30 day(s) May, Active predniSONE 20 mg oral tablet (2 [...] before bedtime. 180 tablet 1 09/22/2024 Active Start: 05-21-2019 End: 09-20-2024 take 1 tablet by mouth in the morning, then take 1 tablet by mouth at bedtime propranoloL (INDERAL) 20 mg tablet Take 1 tablet (20 mg total) by mouth in the morning and 1 tablet (20 mg total) before bedtime. 0 05/21/2019 Active Start: 05-21-2019 take 0.5 tablet by m outh in the morning, then take 0.5 tablet by mouth at bedtime propranoloL (INDERAL) 20 mg tablet Take 0.5 tablets (10 mg total) by mouth in the morning and 0.5 tablets (10 mg total) before bedtime. 0 05/21/2019 Active take 1 tablet by anu th three times daily propranolol (INDERAL) 10 mg tablet Take 10 mg by mouth three times daily. 0 Active take 1 tablet by nau th twice daily propranolol (INDERAL) 10 MG tablet Take 10 mg by mouth 2 times daily 0 Active Comment on above: Take 10 mg by mouth three times daily. rizatriptan 5 mg oral tablet (20 sources) Serotonin-1b and Serotonin-1d Receptor Agonist Start: 11-25-2018 rizatriptan (MAXALT) 5 mg tablet rizatriptan 5 mg tablet 11/25/2018 Active rizatriptan (Max alt) 5 MG tablet 5 mg 1 (one) time if needed Active take 1 tablet by anu th every twenty-four hours Maxalt 10 MG 1 tablet Orally Once a day 5 mg PRN Active Comment on above: Take 1 tablet by anu th as needed. May repeat in 2 hours if needed Semaglutide-Weight Management (Wegovy) 0.5 MG/0.5ML solution auto-injector (11 sources) Start: 4 End: inject 0.5 mg by subcutaneous injection [...] 09/15/2024 Active Tirzepatide 2.5 MG/0.5ML solution auto-injector (6 sources) Start: 09-16-2024 End: 11-03-2024 inject 2.5 mg by subcutaneous injection every week Tirzepatide 2.5 MG/0.5ML solution auto-injector Indications: Obstructive sleep apnea syndrome Inject 2.5 mg under the skin 1 (one) time per week 2 mL 1 09/16/2024 11/03/2024 Discontinued (Dose adjustment) Start: 09-16-2024 inject 2.5 mg by sub cutaneous injection every week Tirzepatide 2.5 MG/0.5ML solution auto-injector Indications: Obstructive sleep apnea syndrome Inject 2.5 mg under the skin 1 (one) time per week 2 mL 1 09/16/2024 Active Tirzepatide-Weight Management (Zepbound) 2.5 MG/0.5ML solution auto-injector (5 sources) Start: 09-22-2024 End: 11-03-2024 inject 2.5 mg by subcutaneous injection every week Tirzepatide-Weight Management (Zepbound) 2.5 MG/0.5ML solution auto-injector Indications: Obstructive sleep apnea syndrome Inject 2.5 mg under the skin 1 (one) time per week 2 mL 1 09/22/2024 11/03/2024 Discontinued (Therapy completed) Start: 09-22-2024 inject 2.5 mg by sub cutaneous injection every week Tirzepatide-Weight Management (Zepbound) 2.5 MG/0.5ML solution auto-injector Indications: Obstructive sleep apnea syndrome Inject 2.5 mg under the skin 1 (one) time per week 2 mL 1 09/22/2024 Active Tirzepatide-Weight Management 5 MG/0.5ML solution (1 source) Start: 11-03-2024 inject 5 mg by subcutaneous injection every week Tirzepatide-Weight Management 5 MG/0.5ML solution Indications: Obstructive sleep apnea syndrome Inject 5 mg under the skin 1 (one) time per week 2 mL 1 11/03/2024 Active traZODone hydrochloride 50 mg oral tablet (9 sources) Serotonin Reuptake Inhibitor take 1 tablet [...] 5 11/25/2018 Active take [address] tablet [address] [facility] every twenty-four hours Baclofen 10 MG 1 tablet Orally Once a day Active [facility] Baclofen 5 MG 1 tablet Orally Once a day Active Comment on above: Take [facility]. biotin 10 mg oral capsule (4 sources) Start: Biotin 10,000 mcg cap 12 hr buPROPion hydrochloride 150 mg extended release oral tablet (4 sources) Aminoketone Start: buPROPion SR (ZYBAN SR; WELLBUTRIN SR) 150 mg 12 hr tablet lithium carbonate 450 mg extended release oral tablet (4 sources) Start: take 1 tablet by mouth twice daily lithium carbonate ER 450 mg CR tablet Take 450 mg by mouth twice daily. 0 11/20/2018 Active Comment on above: Take 450 mg by mouth twice daily. methocarbamol 500 mg oral tablet (2 sources) Muscle Relaxant End: methocarbamoL (ROBAXIN) 500 mg tablet Take 1 tablet (500 mg total) by mouth in the morning and 1 tablet (500 mg total) at noon and 1 tablet (500 mg total) in the evening. 05/05/2024 Discontinued (Discontinued by another clinician) perphenazine 2 mg oral tablet (5 sources) Phenothiazine Start: take 1 tablet by mouth twice daily perphenazine 2 mg tablet Take 2 mg by mouth twice daily. 0 11/20/2018 Active Comment on above: Take 2 mg by mouth t wice daily. phentermine hydrochloride 37.5 mg oral tablet (4 sources) Sympathomimetic Amine Anorectic take 1 tablet by mouth every twenty-four hours Adipex-P 37.5 MG 1 tablet Orally Once a day Not-Taking vit 10-iron fum-folic 65-1 mg tablet (2 sources) Start: End: take 1 tablet by mouth in the morning vit 10-iron fum-folic 65-1 mg tablet Indications: Other fatigue , Obesity, Class II, BMI 35-39.9 Take 1 tablet by mouth in the morning. 90 tablet 3 02/23/2022 05/05/2024 Discontinued (Discontinued by another clinician) Start: 02-23-2022 take 1 tablet by anu th in the morning vit 10-iron fum-folic 65-1 mg tablet Indications: Other fatigue , Obesity, Class II, BMI 35-39.9 Take 1 tablet by mouth in the morning. 90 tablet 3 02/23/2022 Active primidone 250 mg oral tablet (12 sources) Anti-epileptic Agent Start: 10-25-2022 primidone (MYSOLINE) 250 mg tablet Indications: Excessive [...] y morning and 1 tablet every evening Problems Active Problems Problem Classification Problem Date Documented Date Episodic/Chronic Allergic reactions (3 sources) Chronic dermatitis; Translations: [Dermatitis, unspecified] 08-04-2024 Episodic Anxiety disorders (20 sources) Anxiety; Translations: [Anxiety disorder, unspecified] Onset: 05-14-2024 05-14-2024 Chronic Asthma (20 sources) Asthma; Translations: [Unspecified asthma, uncomplicated] Onset: 12-08-2020 05-14-2024 Chronic Coma; stupor; and brain damage (3 sources) Daytime somnolence; Translations: [Somnolence] Episodic Diseases of white blood cells (1 source) Decreased white blood cell count, unspecified; Translations: [Decreased white blood cell count, unspecified] Onset: 02-29-2024 Chronic Disorders of lipid metabolism (20 sources) Dyslipidemia; Translations: [Mixed hyperlipidemia] Onset: 05-05-2024 06-16-2024 Chronic Esophageal disorders (20 sources) Gastroesophageal reflux disease without esophagitis; Translations: [Gastro-esophageal reflux disease without esophagitis] Onset: 12-08-2020 05-14-2024 Chronic Essential hypertension (1 source) Essential (primary) hypertension; Translations: [Essential (primary) hypertension] Onset: 02-29-2024 Chronic Headache; including migraine (20 sources) Migraine; Translations: [Migraine, unspecified, not intractable, without status migrainosus] Onset: 05-14-2024 05-14-2024 Chronic Mood disorders (20 sources) Bipolar disorder; Translations: [Bipolar disorder, unspecified] Onset: 05-14-2024 05-14-2024 Chronic Mycoses (6 sources) Tinea pedis; Translations: [Tinea pedis] 08-04-2024 Episodic Nutritional deficiencies (1 source) Vitamin D deficiency, unspecified; Translations: [Vitamin D deficiency, unspecified] Onset: 11-30-2023 Chronic Other aftercare (1 source) Encounter for therapeutic drug level monitoring; Translations: [Encounter for therapeutic drug level monitoring] Onset: 11-03-2024 Episodic Other connective tissue disease (5 sources) Other muscle spasm; Translations: [OTHER MUSCLE SPASM] Onset: 09-22-2021 Episodic Other connective tissue disease (8 sources) Pain in toe; Translations: [Pain in [...] without cataplexy] Chronic Other nervous system disorders (20 sources) Narcolepsy; 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] Onset: [...] nutritional; endocrine; and metabolic disorders (4 sources) Severe obesity; Translations: [Morbid (severe) obesity due to excess calories] Onset: 03-06-2022 03-06-2022 Chronic Other nutritional; endocrine; and metabolic disorders (1 source) Morbid (severe) obesity due to excess calories; Translations: [Morbid (severe) obesity due to excess calories] Onset: 03-06-2022 Chronic Other nutritional; endocrine; and metabolic disorders (1 source) Obesity, unspecified; Translations: [Obesity, unspecified] Onset: 02-29-2024 Chronic Other skin disorders (2 sources) Folliculitis; Translations: [Follicular disorder, unspecified] 05-23-2024 Episodic Other skin disorders (2 sources) Dystrophia unguium; Translations: [Nail dystrophy] 10-27-2024 Episodic Residual codes; unclassified (20 sources) Obstructive sleep apnea syndrome; Translations: [Obstructive sleep apnea (adult) (pediatric)] Onset: 02-23-2022 05-14-2024 Chronic Residual codes; unclassified (9 sources) Nicotine-filled electronic cigarette user; Translations: [Tobacco [...] Date Documented Da te Episodic/Chronic Administrative/social admission (3 sources) Patient encounter status; Translations: [Persons encountering health services in other specified circumstances] 05-14-2024 Episodic Cardiac dysrhythmias (4 sources) Sinus tachycardia; Translations: [Tachycardia, unspecified] Onset: 02-29-2024 05-05-2024 Episodic Genitourinary symptoms and ill-defined conditions (1 source) Hematuria, unspecified; Translations: [Hematuria, unspecified] Onset: 03-23-2024 Episodic Malaise and fatigue (20 sources) Fatigue; Translations: [Other fatigue] Onset: 02-23-2022 05-14-2024 Episodic Nonspecific chest pain (3 sources) Chest pain; Translations: [Chest pain, unspecified] Onset: 03-23-2024 05-05-2024 Episodic Other liver diseases (1 source) Abnormal levels of other serum enzymes; Translations: [Abnormal levels of other serum enzymes] Onset: 03-23-2024 Episodic Other nervous system disorders (20 sources) Tremor; Translations: [Tremor, unspecified] Onset: 05-14-2024 [...] Results Test Name Value Interpretation Reference Range Facility ALT No additional P-5'-P [Ca talytic activity/Vol]on 11-03-2024 ALT [Catalytic activity/Vol] 51 U/L High 0-31 [facility] Comment on above: Performed By: #### 2 4331-1, THYR, CBCA, CMP, 59979-1 #### [facility] ([id number]) [address], [address] [place] [address] Silas 11-03-2024 AST [Catalytic activity/Vol] 38 U/L Normal 0-41 [facility] Comment on above: Performed By: #### 2 4331-1, THYR, CBCA, CMP, 08843-7 #### [facility] ([id number]) [address], [address] [place] [address] DIRECT LDLon 11-03-2024 Cholesterol in LDL [Mass/Vol] 65 mg/dL Normal <130 [facility] Comment on above: Result Comment: LDL <100 mg/dL - Desirable LDL 130-159 mg/dL - Borderline High Risk LDL >160 mg/dL - High Risk Performed By: #### 2 4331-1, THYR, CBCA, CMP, 77201-0 #### [facility] ([id number]) [address], [address] [place] [address] TRIGLYCERIDEon 11-03-2024 Triglyceride [Mass/Vol] 234 mg/dL High 27-150 [facility] Comment on above: Performed By: #### 2 4331-1, THYR, CBCA, CMP, 25291-7 #### [facility] ([id number]) [address], [address] [place] [address] MR CERVICAL SPINE WO CONTon 09-16-2024 MR [...] A Myles on 09/16/2024 2:09 PM Normal [facility] Gynecology Office/Clinic Not freddie 08-13-2024 Gynecology [...] cover after 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 Normal [facility] COMPREHENSIVE METABOLIC PANE Mika 05-19-2024 Albumin [Mass/Vol] 4.6 g/dL Normal 3.2-5.3 [facility] Comment on above: Performed By: #### 2 4331-1, THYR, CBCA, CMP, 83659-3 #### [facility] ([id number]) [address], [address] [place] [address] ALP [Catalytic activity/Vol] 78 U/L Normal 39-130 [facility] Comment on above: Performed By: #### 2 4331-1, THYR, CBCA, CMP, 99322-0 #### [facility] ([id number]) [address], [address] [place] [address] ALT [Catalytic activity/Vol] 85 U/L High 0-31 [facility] Comment on above: Performed By: #### 2 4331-1, THYR, CBCA, CMP, 19565-4 #### [facility] ([id number]) [address], [address] [place] [address] Anion gap [Moles/Vol] 15 mmol/L Normal 5-15 [facility] Comment on above: Performed By: #### 2 4331-1, THYR, CBCA, CMP, 67743-7 #### [facility] ([id number]) [address], [address] [place] [address] AST [Catalytic activity/Vol] 54 U/L High 0-41 [facility] Comment on above: Performed By: #### 2 4331-1, THYR, CBCA, CMP, 15074-6 #### [facility] ([id number]) [address], [address] [place] [address] Bilirubin [Mass/Vol] 0.6 mg/dL Normal 0.3-1.2 [facility] Comment on above: Performed By: #### 2 4331-1, THYR, CBCA, CMP, 15068-1 #### [facility] ([id number]) [address], [address] [place] [address] Calcium [Mass/Vol] 9.6 mg/dL Normal 8.5-10.5 [facility] Comment on above: Performed By: #### 2 4331-1, THYR, CBCA, CMP, 45920-7 #### [facility] ([id number]) [address] [facility] [address] [place] [address] Chloride [Moles/Vol] 102 mmol/L Normal 98-109 [facility] Comment on above: Performed By: #### 2 4331-1, THYR, CBCA, CMP, 30425-1 #### [facility] ([id number]) [address], [address] [place] [address] CO2 [Moles/Vol] 19 mmol/L Low 22-32 [facility] Comment on above: Performed By: #### 2 4331-1, THYR, CBCA, CMP, 84285-1 #### [facility] ([id number]) [address], [address] [place] [address] Creatinine [Mass/Vol] 0.89 mg/dL Normal 0.40-1.00 [facility] Comment on above: Result Comment: METH OD TRACEABLE TO IDMS STANDARD Performed By: #### 2 4331-1, THYR, CBCA, CMP, 97290-5 #### [facility] ([id number]) [address], [address] [place] [address] GFR/1.73 sq M.predicted among non-blacks MDRD (S/P/Bld) [Vol rate/Area] 86 mL/min/{1.73_m2} Normal >59 [facility] Comment on above: Result Comment: Reported eGFR is based on the CKD-EPI 2020 equation that does not use a race coefficient. Performed By: #### 2 4331-1, THYR, CBCA, CMP, 13816-4 #### [facility] ([id number]) [address] [place] [address] Glucose [Mass/Vol] 95 mg/dL Normal 65-99 [facility] Comment on above: Performed By: #### 2 4331-1, THYR, CBCA, CMP, 56088-6 #### [facility] ([id number]) [address] [place] [address] Potassium [Moles/Vol] 4.0 mmol/L Normal 3.5-5.0 [facility] Comment on above: Performed By: #### 2 4331-1, THYR, CBCA, CMP, 43336-8 #### [facility] ([id number]) [address] [place] [address] Protein [Mass/Vol] 7.0 g/dL Normal 6.0-8.0 [facility] Comment on above: Performed By: #### 2 4331-1, THYR, CBCA, CMP, 12421-6 #### [facility] ([id number]) [address] [address] [place] [address] Sodium [Moles/Vol] 136 mmol/L Normal 134-146 [facility] Comment on above: Performed By: #### 2 4331-1, THYR, CBCA, CMP, 60159-3 #### [facility] ([id number]) [address] [address] [place] [address] Urea nitrogen [Mass/Vol] 10 mg/dL Normal 5-23 [facility] Comment on above: Performed By: #### 2 4331-1, THYR, CBCA, CMP, 56937-4 #### [facility] ([id number]) [address] [address] [place] [address] DIRECT LDLon 05-19-2024 Cholesterol in LDL [Mass/Vol] 181 mg/dL High <130 [facility] Comment on above: Result Comment: LDL <100 mg/dL - Desirable LDL 130-159 mg/dL - Borderline High Risk LDL >160 mg/dL - High Risk Performed By: #### 2 4331-1, THYR, CBCA, CMP, 64417-2 #### [facility] ([id number]) [address] [place] [address] LIVER PANELon 05-19-2024 Bilirubin.direct [Mass/Vol] 0.1 mg/dL Normal 0.0-0.4 [facility] Comment on above: Performed By: #### 2 4331-1, THYR, CBCA, CMP, 67448-3 #### [facility] ([id number]) [address] [place] [address] Lipid 1996 panelon Cholesterol [Mass/Vol] 276 mg/dL High 150-200 [facility] Comment on above: Performed By: #### 2 4331-1, THYR, CBCA, CMP, 03018-0 #### [facility] ([id number]) [address] [place] [address] Cholesterol in HDL [Mass/Vol] 42 mg/dL Normal >39 [facility] Comment on above: Result Comment: HDL <40 mg/dL - High Risk HDL > or = 40mg/dL- Desirable HDL >60 mg/dL - Negative Risk Performed By: #### 2 4331-1, THYR, CBCA, CMP, 36826-1 #### [facility] ([id number]) [address] [place] [address] Cholesterol in VLDL [Mass/Vol] 98 mg/dL High 0-30 [facility] Comment on above: Performed By: #### 2 4331-1, THYR, CBCA, CMP, 73343-9 #### [facility] ([id number]) [address] [facility] [address] [place] [address] CHOLESTEROL:HDL 6.6 High 1.0-5.0 [facility] Comment on above: Performed By: #### 2 4331-1, THYR, CBCA, CMP, 41478-4 #### [facility] ([id number]) [address] [address] [place] [address] LDL (CALC) RESULT NOT REPORTED DUE TO HIGH TRIGLYCERIDE Normal <130 [facility] Comment on above: Performed By: #### 2 4331-1, THYR, CBCA, CMP, 34288-4 #### [facility] ([id number]) [address], [facility] [address] [place] [address] Triglyceride [Mass/Vol] 488 mg/dL High 27-150 [facility] Comment on above: Performed By: #### 2 4331-1, THYR, CBCA, CMP, 14942-7 #### [facility] ([id number]) [address] [facility] [address] [place] [address] MR LUMBAR SPINE WO CONTon MR LUMBAR [...] Bruce DO on 03/26/2024 1:45 PM Normal [facility] CBC AND AUTO DIFFon 03-23-20 24 ABSOLUTE BASOPHIL 0.0 X10E9/L Normal 0.0-0.2 [facility] Comment on above: Performed By: #### 2 4331-1, THYR, CBCA, CMP, 54733-4 #### [facility] ([id number]) [address], [address] [place] [address] ABSOLUTE NEUTROPHIL 4.7 X10E9/L Normal 1.5-6.6 [facility] Comment on above: Performed By: #### 2 4331-1, THYR, CBCA, CMP, 60424-4 #### [facility] ([id number]) [address], [address] [place] [address] Basophils/100 WBC (Bld) 0.3 % Normal [facility] Comment on above: Performed By: #### 2 4331-1, THYR, CBCA, CMP, 76574-5 #### [facility] ([id number]) [address] [address] [place] [address] Eosinophils (Bld) [#/Vol] 0.0 10*3/uL Normal 0.0-0.4 [facility] Comment on above: Performed By: #### 2 4331-1, THYR, CBCA, CMP, 94611-5 #### [facility] ([id number]) [address] [address] Eosinophils/100 WBC (Bld) 0.4 % Normal [facility] Comment on above: Performed By: #### 2 4331-1, THYR, CBCA, CMP, 42702-4 #### [facility] ([id number]) [address] [address] [place] [address] Erythrocyte distribution width (RBC) [Ratio] 13.5 % Normal 11.5-15.0 [facility] Comment on above: Performed By: #### 2 4331-1, THYR, CBCA, CMP, 84195-4 #### [facility] ([id number]) [address] [address] [place] [address] Hematocrit (Bld) [Volume fraction] 44.6 % Normal 35-47 [facility] Comment on above: Performed By: #### 2 4331-1, THYR, CBCA, CMP, 11893-4 #### [facility] ([id number]) [address] [address] Hemoglobin (Bld) [Mass/Vol] 15.6 g/dL High 11.7-15.5 [facility] Comment on above: Performed By: #### 2 4331-1, THYR, CBCA, CMP, 15740-0 #### [facility] ([id number]) [address] [address] [place] [address] Lymphocytes (Bld) [#/Vol] 0.5 10*3/uL Low 1.0-3.5 [facility] Comment on above: Performed By: #### 2 4331-1, THYR, CBCA, CMP, 16483-0 #### [facility] ([id number]) [address] [address] [place] [address] Lymphocytes/100 WBC (Bld) 8.7 % Normal [facility] Comment on above: Performed By: #### 2 4331-1, THYR, CBCA, CMP, 55231-8 #### [facility] ([id number]) [address] [address] [place] [address] MCH (RBC) [Entitic mass] 32.5 pg Normal 27-34 [facility] Comment on above: Performed By: #### 2 4331-1, THYR, CBCA, CMP, 31701-6 #### [facility] ([id number]) [address] [address] [place] [address] MCHC (RBC) [Mass/Vol] 34.9 g/dL Normal 32-36 [facility] Comment on above: Performed By: #### 2 4331-1, THYR, CBCA, CMP, 03659-6 #### [facility] ([id number]) [address] [address] [place] [address] MCV (RBC) [Entitic vol] 93 fL Normal 80-100 [facility] Comment on above: Performed By: #### 2 4331-1, THYR, CBCA, CMP, 47893-8 #### [facility] ([id number]) [address] [address] [place] [address] Monocytes (Bld) [#/Vol] 0.0 10*3/uL Normal 0-0.9 [facility] Comment on above: Performed By: #### 2 4331-1, THYR, CBCA, CMP, 28022-3 #### [facility] ([id number]) [address] [address] [place] [address] Monocytes/100 WBC (Bld) 0.6 % Normal [facility] Comment on above: Performed By: #### 2 4331-1, THYR, CBCA, CMP, 62108-8 #### [facility] ([id number]) [address] [address] [place] [address] Neutrophils/100 WBC (Bld) 90.0 % Normal [facility] Comment on above: Performed By: #### 2 4331-1, THYR, CBCA, CMP, 02893-8 #### [facility] ([id number]) [address] [address] [place] [address] Platelet mean volume (Bld) [Entitic vol] 7.2 fL Normal 7-12 [facility] Comment on above: Performed By: #### 2 4331-1, THYR, CBCA, CMP, 66523-3 #### [facility] ([id number]) [address] [address] [place] [address] Platelets (Bld) [#/Vol] 286 10*3/uL Normal 150-450 [facility] Comment on above: Performed By: #### 2 4331-1, THYR, CBCA, CMP, 14436-9 #### [facility] ([id number]) [address] [address] [place] [address] RBC COUNT 4.80 X10E12/L Normal 3.80-5.20 [facility] Comment on above: Performed By: #### 2 4331-1, THYR, CBCA, CMP, 10237-4 #### [facility] ([id number]) [address] [address] [place] [address] WBC (Bld) [#/Vol] 5.3 10*3/uL Normal 4.0-11.0 [facility] Comment on above: Performed By: #### 2 4331-1, THYR, CBCA, CMP, 74977-0 #### [facility] ([id number]) [address] [place] [address] COMPREHENSIVE METABOLIC PANE Mika 03-23-2024 Albumin [Mass/Vol] 4.2 g/dL Normal 3.2-5.3 [facility] Comment on above: Performed By: #### 2 4331-1, THYR, CBCA, CMP, 26883-5 #### [facility] ([id number]) [address] [place] [address] ALP [Catalytic activity/Vol] 115 U/L Normal 39-130 [facility] Comment on above: Performed By: #### 2 4331-1, THYR, CBCA, CMP, 22790-6 #### [facility] ([id number]) [address] [place] [address] ALT [Catalytic activity/Vol] 81 U/L High 0-31 [facility] Comment on above: Performed By: #### 2 4331-1, THYR, CBCA, CMP, 82809-4 #### [facility] ([id number]) [address] [place] [address] Anion gap [Moles/Vol] 14 mmol/L Normal 5-15 [facility] Comment on above: Performed By: #### 2 4331-1, THYR, CBCA, CMP, 02273-3 #### [facility] ([id number]) [address] [place] [address] AST [Catalytic activity/Vol] 48 U/L High 0-41 [facility] Comment on above: Performed By: #### 2 4331-1, THYR, CBCA, CMP, 56973-8 #### [facility] ([id number]) [address] [place] [address] Bilirubin [Mass/Vol] 1.3 mg/dL High 0.3-1.2 [facility] Comment on above: Performed By: #### 2 4331-1, THYR, CBCA, CMP, 17342-5 #### [facility] ([id number]) [address] [place] [address] Calcium [Mass/Vol] 9.3 mg/dL Normal 8.5-10.5 [facility] Comment on above: Performed By: #### 2 4331-1, THYR, CBCA, CMP, 89742-8 #### [facility] ([id number]) [address] [address] [place] [address] Chloride [Moles/Vol] 97 mmol/L Low 98-109 [facility] Comment on above: Performed By: #### 2 4331-1, THYR, CBCA, CMP, 57827-3 #### [facility] ([id number]) [address] [place] [address] CO2 [Moles/Vol] 22 mmol/L Normal 22-32 [facility] Comment on above: Performed By: #### 2 4331-1, THYR, CBCA, CMP, 67522-6 #### [facility] ([id number]) [address] [place] [address] Creatinine [Mass/Vol] 0.91 mg/dL Normal 0.40-1.00 [facility] Comment on above: Result Comment: METH OD TRACEABLE TO IDMS STANDARD Performed By: #### 2 4331-1, THYR, CBCA, CMP, 02881-2 #### [facility] ([id number]) [address] [address] [place] [address] GFR/1.73 sq M.predicted among non-blacks MDRD (S/P/Bld) [Vol rate/Area] 83 mL/min/{1.73_m2} Normal >59 [facility] Comment on above: Result Comment: Reported eGFR is based on the CKD-EPI 2020 equation that does not use a race coefficient. Performed By: #### 2 4331-1, THYR, CBCA, CMP, 54586-6 #### [facility] ([id number]) [address] [address] [place] [address] Glucose [Mass/Vol] 110 mg/dL High 65-99 [facility] Comment on above: Performed By: #### 2 4331-1, THYR, CBCA, CMP, 50464-6 #### [facility] ([id number]) [address] [address] [place] [address] Potassium [Moles/Vol] 3.8 mmol/L Normal 3.5-5.0 [facility] Comment on above: Performed By: #### 2 4331-1, THYR, CBCA, CMP, 55576-5 #### [facility] ([id number]) [address] [address] [place] [address] Protein [Mass/Vol] 8.0 g/dL Normal 6.0-8.0 [facility] Comment on above: Performed By: #### 2 4331-1, THYR, CBCA, CMP, 66389-2 #### [facility] ([id number]) [address] [address] [place] [address] Sodium [Moles/Vol] 133 mmol/L Low 134-146 [facility] Comment on above: Performed By: #### 2 4331-1, THYR, CBCA, CMP, 93566-2 #### [facility] ([id number]) [address] [address] [place] [address] Urea nitrogen [Mass/Vol] 13 mg/dL Normal 5-23 [facility] Comment on above: Performed By: #### 2 4331-1, THYR, CBCA, CMP, 53385-1 #### [facility] ([id number]) [address] [address] [place] [address] CT CTA CHESTon 03-23-2024 CT CTA CHEST [...] Chaparro MD on 03/23/2024 10:52 PM Normal [facility] Fibrin D-dimer DDU (PPP) [Ma ss/Vol]on 03-23-2024 D DIMER 336 ng/mL DDU High <255 [facility] Comment on above: Result Comment: Results >=255ng/mL DDU: Results may be indicative of the presence of VTE. The use of the Wells score and further diagnostic tests should be considered. Elevated D-Dimer levels can also be associated with DIC, neoplasm, , trauma and liver disease. Elevated levels of rheumatoid factor may lead to an overestimation of the D-Dimer level. Performed By: #### 2 4331-1, THYR, CBCA, CMP, 07092-7 #### [facility] ([id number]) [address] [facility] [facility] [address] [place] [address] HCG ( test) Ql (U)o n 03-23-2024 Beta HCG ( test) Ql (U) Negative Normal NEG [facility] Comment on above: Performed By: #### 2 4331-1, THYR, CBCA, CMP, 65747-9 #### [facility] ([id number]) [address], [facility] [address] [place] [address] LIPASEon 03-23-2024 Lipase [Catalytic activity/Vol] 30 U/L Normal 17-40 [facility] Comment on above: Performed By: #### 2 4331-1, THYR, CBCA, CMP, 95174-6 #### [facility] ([id number]) [address] [place] [address] THYROID PROFILEon 03-23-2024 Free T4 [Mass/Vol] 0.74 ng/dL Normal 0.61-1.60 [facility] Comment on above: Performed By: #### 2 4331-1, THYR, CBCA, CMP, 14873-8 #### [facility] ([id number]) [address] [address] TSH 1.64 uIU/mL Normal 0.49-4.67 [facility] Comment on above: Performed By: #### 2 4331-1, THYR, CBCA, CMP, 25439-9 #### [facility] ([id number]) [address] [address] Troponin I.cardiac High sens itivity method [Mass/Vol]on 03-23-2024 1 HOUR TROP I, HIGH SENSITIVITY 3 ng/L Normal <16 [facility] Comment on above: Performed By: #### 2 4331-1, THYR, CBCA, CMP, 92531-9 #### [facility] ([id number]) [address] [place] [address] TROPONIN I, HIGH SENSITIVITY 2 ng/L Normal <16 [facility] Comment on above: Performed By: #### 2 4331-1, THYR, CBCA, CMP, 61312-3 #### [facility] ([id number]) [address] [place] [address] URINE CULTUREon 03-23-2024 Bacteria identified Cx Nom [...] F TRIMETH/SULFAMETHOXAZO LE S <=1/19 F Susceptible [facility] Comment on above: Performed By: #### 2 4331-1, THYR, CBCA, CMP, 52734-1 #### [facility] ([id number]) [address] [place] [address] URN MACROSCOPIC NURon 2023 BILIRUBIN LUL Negative Normal NEG [facility] Comment on above: Performed By: #### 2 4331-1, THYR, CBCA, CMP, 48721-6 #### [facility] ([id number]) [address] [place] [address] BLOOD/HGB LUL Small Abnormal NEG [facility] Comment on above: Performed By: #### 2 4331-1, THYR, CBCA, CMP, 40182-6 #### [facility] ([id number]) [address] [place] [address] GLUCOSE LUL Negative Normal NEG [facility] Comment on above: Performed By: #### 2 4331-1, THYR, CBCA, CMP, 07828-5 #### [facility] ([id number]) [address] [place] [address] KETONES LUL Negative Normal NEG [facility] Comment on above: Performed By: #### 2 4331-1, THYR, CBCA, CMP, 42705-8 #### [facility] ([id number]) [address] [place] [address] LEUKOCYTE ESTERASE LUL Small Abnormal NEG [facility] Comment on above: Performed By: #### 2 4331-1, THYR, CBCA, CMP, 58500-6 #### [facility] ([id number]) [address] [place] [address] NITRITE LUL Negative Normal NEG [facility] Comment on above: Performed By: #### 2 4331-1, THYR, CBCA, CMP, 06777-3 #### [facility] ([id number]) [address] [place] [address] PH LUL 5.5 Normal 5.0-8.5 [facility] Comment on above: Performed By: #### 2 4331-1, THYR, CBCA, CMP, 37581-9 #### [facility] ([id number]) [address] [place] [address] PROTEIN LUL Negative Normal NEG [facility] Comment on above: Performed By: #### 2 4331-1, THYR, CBCA, CMP, 63790-3 #### [facility] ([id number]) [address] [place] [address] SPECIFIC GRAVITY LUL 1.010 Normal 1.003-1.035 [facility] Comment on above: Performed By: #### 2 4331-1, THYR, CBCA, CMP, 07173-6 #### [facility] ([id number]) [address] [place] [address] UROBILINOGEN LUL 0.2 eu/dL Normal <1.1 [facility] Comment on above: Performed By: #### 2 4331-1, THYR, CBCA, CMP, 27254-9 #### [facility] ([id number]) [address] [place] [address] CBC AND AUTO DIFFon 02-29-20 24 ABSOLUTE BASOPHIL 0.0 X10E9/L Normal 0.0-0.2 [facility] Comment on above: Performed By: #### T HYR, HA1C, CBCA, 16902-4 #### [facility] ([id number]) [address] [place] [address] ABSOLUTE NEUTROPHIL 2.8 X10E9/L Normal 1.5-6.6 [facility] Comment on above: Performed By: #### T HYR, HA1C, CBCA, 32033-6 #### [facility] ([id number]) [address] [address] [place] [address] Basophils/100 WBC (Bld) 0.7 % Normal [facility] Comment on above: Performed By: #### T HYR, HA1C, CBCA, 72147-8 #### [facility] ([id number]) [address] [address] [place] [address] Eosinophils (Bld) [#/Vol] 0.1 10*3/uL Normal 0.0-0.4 [facility] Comment on above: Performed By: #### T HYR, HA1C, CBCA, 23555-5 #### [facility] ([id number]) [address] [place] [address] Eosinophils/100 WBC (Bld) 2.1 % Normal [facility] Comment on above: Performed By: #### T HYR, HA1C, CBCA, 42797-4 #### [facility] ([id number]) [address] [address] [place] [address] Erythrocyte distribution width (RBC) [Ratio] 13.7 % Normal 11.5-15.0 [facility] Comment on above: Performed By: #### T HYR, HA1C, CBCA, 86606-6 #### [facility] ([id number]) [address] [address] Hematocrit (Bld) [Volume fraction] 45.0 % Normal 35-47 [facility] Comment on above: Performed By: #### T HYR, HA1C, CBCA, 16157-9 #### [facility] ([id number]) [address] [address] Hemoglobin (Bld) [Mass/Vol] 15.5 g/dL Normal 11.7-15.5 [facility] Comment on above: Performed By: #### T HYR, HA1C, CBCA, 82371-0 #### [facility] ([id number]) [address] [address] Lymphocytes (Bld) [#/Vol] 1.4 10*3/uL Normal 1.0-3.5 [facility] Comment on above: Performed By: #### T HYR, HA1C, CBCA, 80607-3 #### [facility] ([id number]) [address] [address] Lymphocytes/100 WBC (Bld) 28.9 % Normal [facility] Comment on above: Performed By: #### T HYR, HA1C, CBCA, 04565-7 #### [facility] ([id number]) [address] [place] [address] MCH (RBC) [Entitic mass] 32.0 pg Normal 27-34 [facility] Comment on above: Performed By: #### T HYR, HA1C, CBCA, 87510-1 #### [facility] ([id number]) [address] [place] [address] MCHC (RBC) [Mass/Vol] 34.3 g/dL Normal 32-36 [facility] Comment on above: Performed By: #### T HYR, HA1C, CBCA, 08339-5 #### [facility] ([id number]) [address] [facility] [address] [place] [address] MCV (RBC) [Entitic vol] 93 fL Normal 80-100 [facility] Comment on above: Performed By: #### T HYR, HA1C, CBCA, 12108-0 #### [facility] ([id number]) [address] [place] [address] Monocytes (Bld) [#/Vol] 0.4 10*3/uL Normal 0-0.9 [facility] Comment on above: Performed By: #### T HYR, HA1C, CBCA, 45385-6 #### [facility] ([id number]) [address] [place] [address] Monocytes/100 WBC (Bld) 8.4 % Normal [facility] Comment on above: Performed By: #### T HYR, HA1C, CBCA, 13842-6 #### [facility] ([id number]) [address] [facility] [address] [place] [address] Neutrophils/100 WBC (Bld) 59.9 % Normal [facility] Comment on above: Performed By: #### T HYR, HA1C, CBCA, 01445-0 #### [facility] ([id number]) [address] [place] [address] Platelet mean volume (Bld) [Entitic vol] 8.5 fL Normal 7-12 [facility] Comment on above: Performed By: #### T HYR, HA1C, CBCA, 63010-7 #### [facility] ([id number]) [address] [place] [address] Platelets (Bld) [#/Vol] 272 10*3/uL Normal 150-450 [facility] Comment on above: Performed By: #### T HYR, HA1C, CBCA, 38425-5 #### [facility] ([id number]) [address] [facility] [address] [place] [address] RBC COUNT 4.83 X10E12/L Normal 3.80-5.20 [facility] Comment on above: Performed By: #### T HYR, HA1C, CBCA, 00346-8 #### [facility] ([id number]) [address], [address] [place] [address] WBC (Bld) [#/Vol] 4.7 10*3/uL Normal 4.0-11.0 [facility] Comment on above: Performed By: #### T HYR, HA1C, CBCA, 85341-2 #### [facility] ([id number]) [address], [address] [place] [address] HGB A1C (GLYCO-HGB)on 2023 Glucose [Mass/Vol] 97 mg/dL Normal [facility] Comment on above: Performed By: #### T HYR, HA1C, CBCA, 73757-1 #### [facility] ([id number]) [address] [place] [address] HbA1c (Bld) [Mass fraction] 5.0 % Normal 4.4-5.6 [facility] Comment on above: Result Comment: NOTE ADA Guidelines Result HgbA1c Normal : less than 5.7 % Prediabetes : 5.7 % to 6.4 % Diabetes : > 6.4 % Use with caution in patients with abnormal hemoglobin variants as the half-life of red blood cells and in vivo glycation rates are affected. Performed By: #### T HYR, HA1C, CBCA, 37946-3 #### [facility] ([id number]) [address] [facility], [facility] [address] [place] [address] THYROID PROFILEon 02-29-2024 Free T4 [Mass/Vol] 0.67 ng/dL Normal 0.61-1.60 [facility] Comment on above: Performed By: #### T HYR, HA1C, CBCA, 20238-7 #### [facility] ([id number]) [address] [facility], [facility] [address] [place] [address] TSH 1.84 uIU/mL Normal 0.49-4.67 [facility] Comment on above: Performed By: #### T HYR, HA1C, CBCA, 55855-9 #### [facility] ([id number]) [address] [place] [address], [facility] [address] [place] [address] Vitamin D+Metabolites [Mass/ Vol]on 02-29-2024 VITAMIN D 25 HYD TOT 32.3 ng/mL Normal 30-100 [facility] Comment on above: Result Comment: Vitamin D status 25 [place] Vitamin D Deficiency <20 ng/mL Insufficiency 20-29 ng/mL Sufficiency 30-100 ng/mL Toxicity >100 ng/mL NOTE: A pediatric reference range has not been established by the beauty consultant of this kit. The [place] [employer] recommends a Vitamin D level of = or >20ng/mL in infants and children. Performed By: #### 2 4331-1, THYR, CBCA, CMP, 76636-4 #### [facility] ([id number]) [address] [place] [address] XR LUMBAR SPINE AP, LATERAL, FLEXION AND [...] Chun MD on 12/03/2023 10:04 AM Normal [facility] XR SPINE CERVICAL 3 VWS OR [...] Jay MD on 12/02/2023 7:06 AM Normal [facility] CBC AND AUTO DIFFon 11-30-19 ABSOLUTE BASOPHIL 0.0 X10E9/L Normal 0.0-0.2 [facility] Comment on above: Performed By: #### 2 4331-1, THYR, CBCA, CMP, 73531-5 #### [facility] ([id number]) [address] [place] [address] ABSOLUTE NEUTROPHIL 2.5 X10E9/L Normal 1.5-6.6 [facility] Comment on above: Performed By: #### 2 4331-1, THYR, CBCA, CMP, 48061-9 #### [facility] ([id number]) [address], [facility] [address] [place] [address] Basophils/100 WBC (Bld) 0.5 % Normal [facility] Comment on above: Performed By: #### 2 4331-1, THYR, CBCA, CMP, 57907-5 #### [facility] ([id number]) [address], [facility] [address] [place] [address] Eosinophils (Bld) [#/Vol] 0.0 10*3/uL Normal 0.0-0.4 [facility] Comment on above: Performed By: #### 2 4331-1, THYR, CBCA, CMP, 74879-9 #### [facility] ([id number]) [address] [address] [place] [address] Eosinophils/100 WBC (Bld) 1.2 % Normal [facility] Comment on above: Performed By: #### 2 4331-1, THYR, CBCA, CMP, 40163-9 #### [facility] ([id number]) [address] [address] [address] [place] [address] Erythrocyte distribution width (RBC) [Ratio] 13.7 % Normal 11.5-15.0 [facility] Comment on above: Performed By: #### 2 4331-1, THYR, CBCA, CMP, 26774-8 #### [facility] ([id number]) [address] [place] [address] Hematocrit (Bld) [Volume fraction] 43.0 % Normal 35-47 [facility] Comment on above: Performed By: #### 2 4331-1, THYR, CBCA, CMP, 76065-2 #### [facility] ([id number]) [address] [address] [place] [address] Hemoglobin (Bld) [Mass/Vol] 15.0 g/dL Normal 11.7-15.5 [facility] Comment on above: Performed By: #### 2 4331-1, THYR, CBCA, CMP, 90217-6 #### [facility] ([id number]) [address] [address] Lymphocytes (Bld) [#/Vol] 0.9 10*3/uL Low 1.0-3.5 [facility] Comment on above: Performed By: #### 2 4331-1, THYR, CBCA, CMP, 65371-5 #### [facility] ([id number]) [address] [address] Lymphocytes/100 WBC (Bld) 23.6 % Normal [facility] Comment on above: Performed By: #### 2 4331-1, THYR, CBCA, CMP, 14955-3 #### [facility] ([id number]) [address] [address] MCH (RBC) [Entitic mass] 32.2 pg Normal 27-34 [facility] Comment on above: Performed By: #### 2 4331-1, THYR, CBCA, CMP, 40419-0 #### [facility] ([id number]) [address] [address] MCHC (RBC) [Mass/Vol] 35.0 g/dL Normal 32-36 [facility] Comment on above: Performed By: #### 2 4331-1, THYR, CBCA, CMP, 28818-1 #### [facility] ([id number]) [address] [address] [place] [address] MCV (RBC) [Entitic vol] 92 fL Normal 80-100 [facility] Comment on above: Performed By: #### 2 4331-1, THYR, CBCA, CMP, 91441-7 #### [facility] ([id number]) [address] [place] [address] Monocytes (Bld) [#/Vol] 0.3 10*3/uL Normal 0-0.9 [facility] Comment on above: Performed By: #### 2 4331-1, THYR, CBCA, CMP, 91361-8 #### [facility] ([id number]) [address] [facility] [facility] [address] [place] [address] Monocytes/100 WBC (Bld) 7.0 % Normal [facility] Comment on above: Performed By: #### 2 4331-1, THYR, CBCA, CMP, 64548-2 #### [facility] ([id number]) [address] [facility] [facility] [address] [place] [address] Neutrophils/100 WBC (Bld) 67.7 % Normal [facility] Comment on above: Performed By: #### 2 4331-1, THYR, CBCA, CMP, 68203-2 #### [facility] ([id number]) [address] [place] [address] Platelet mean volume (Bld) [Entitic vol] 8.7 fL Normal 7-12 [facility] Comment on above: Performed By: #### 2 4331-1, THYR, CBCA, CMP, 67054-1 #### [facility] ([id number]) [address] [address] [place] [address] Platelets (Bld) [#/Vol] 186 10*3/uL Normal 150-450 [facility] Comment on above: Performed By: #### 2 4331-1, THYR, CBCA, CMP, 55388-7 #### [facility] ([id number]) [address] [place] [address] RBC COUNT 4.67 X10E12/L Normal 3.80-5.20 [facility] Comment on above: Performed By: #### 2 4331-1, THYR, CBCA, CMP, 06769-0 #### [facility] ([id number]) [address] [place] [address] WBC (Bld) [#/Vol] 3.7 10*3/uL Low 4.0-11.0 [facility] Comment on above: Performed By: #### 2 4331-1, THYR, CBCA, CMP, 44900-2 #### [facility] ([id number]) [address] [place] [address] COMPREHENSIVE METABOLIC PANE Mika 11-30-2023 Albumin [Mass/Vol] 4.4 g/dL Normal 3.2-5.3 [facility] Comment on above: Performed By: #### 2 4331-1, THYR, CBCA, CMP, 98613-5 #### [facility] ([id number]) [address] [place] [address] ALP [Catalytic activity/Vol] 65 U/L Normal 39-130 [facility] Comment on above: Performed By: #### 2 4331-1, THYR, CBCA, CMP, 17597-6 #### [facility] ([id number]) [address] [place] [address] ALT [Catalytic activity/Vol] 59 U/L High 0-31 [facility] Comment on above: Performed By: #### 2 4331-1, THYR, CBCA, CMP, 68954-8 #### [facility] ([id number]) [address] [place] [address] Anion gap [Moles/Vol] 6 mmol/L Normal 5-15 [facility] Comment on above: Performed By: #### 2 4331-1, THYR, CBCA, CMP, 38688-5 #### [facility] ([id number]) [address] [place] [address] AST [Catalytic activity/Vol] 31 U/L Normal 0-41 [facility] Comment on above: Performed By: #### 2 4331-1, THYR, CBCA, CMP, 77237-5 #### [facility] ([id number]) [address] [place] [address] Bilirubin [Mass/Vol] 0.8 mg/dL Normal 0.3-1.2 [facility] Comment on above: Performed By: #### 2 4331-1, THYR, CBCA, CMP, 97488-4 #### [facility] ([id number]) [address] [address] [place] [address] Calcium [Mass/Vol] 9.1 mg/dL Normal 8.5-10.5 [facility] Comment on above: Performed By: #### 2 4331-1, THYR, CBCA, CMP, 11459-9 #### [facility] ([id number]) [address] [address] [place] [address] Chloride [Moles/Vol] 103 mmol/L Normal 98-109 [facility] Comment on above: Performed By: #### 2 4331-1, THYR, CBCA, CMP, 74568-3 #### [facility] ([id number]) [address] [address] [place] [address] CO2 [Moles/Vol] 28 mmol/L Normal 22-32 [facility] Comment on above: Performed By: #### 2 4331-1, THYR, CBCA, CMP, 87603-4 #### [facility] ([id number]) [address] [place] [address] Creatinine [Mass/Vol] 0.86 mg/dL Normal 0.40-1.00 [facility] Comment on above: Result Comment: METH OD TRACEABLE TO IDMS STANDARD Performed By: #### 2 4331-1, THYR, CBCA, CMP, 32786-3 #### [facility] ([id number]) [address] [place] [address] GFR/1.73 sq M.predicted among non-blacks MDRD (S/P/Bld) [Vol rate/Area] 89 mL/min/{1.73_m2} Normal >59 [facility] Comment on above: Result Comment: Reported eGFR is based on the CKD-EPI 2020 equation that does not use a race coefficient. Performed By: #### 2 4331-1, THYR, CBCA, CMP, 02540-6 #### [facility] ([id number]) [address] [place] [address] Glucose [Mass/Vol] 97 mg/dL Normal 65-99 [facility] Comment on above: Performed By: #### 2 4331-1, THYR, CBCA, CMP, 91957-8 #### [facility] ([id number]) [address] [address] [place] [address] Potassium [Moles/Vol] 3.8 mmol/L Normal 3.5-5.0 [facility] Comment on above: Performed By: #### 2 4331-1, THYR, CBCA, CMP, 87537-5 #### [facility] ([id number]) [address] [place] [address] Protein [Mass/Vol] 6.6 g/dL Normal 6.0-8.0 [facility] Comment on above: Performed By: #### 2 4331-1, THYR, CBCA, CMP, 28335-6 #### [facility] ([id number]) [address] [place] [address] Sodium [Moles/Vol] 137 mmol/L Normal 134-146 [facility] Comment on above: Performed By: #### 2 4331-1, THYR, CBCA, CMP, 04674-6 #### [facility] ([id number]) [address] [place] [address] Urea nitrogen [Mass/Vol] 9 mg/dL Normal 5-23 [facility] Comment on above: Performed By: #### 2 4331-1, THYR, CBCA, CMP, 23168-4 #### [facility] ([id number]) [address] [place] [address] Lipid 1996 panelon 4 Cholesterol [Mass/Vol] 236 mg/dL High 150-200 [facility] Comment on above: Performed By: #### 2 4331-1, THYR, CBCA, CMP, 81276-8 #### [facility] ([id number]) [address] [place] [address] Cholesterol in HDL [Mass/Vol] 48 mg/dL Normal >39 [facility] Comment on above: Result Comment: HDL <40 mg/dL - High Risk HDL > or = 40mg/dL- Desirable HDL >60 mg/dL - Negative Risk Performed By: #### 2 4331-1, THYR, CBCA, CMP, 23793-1 #### [facility] ([id number]) [address] [place] [address] Cholesterol in LDL [Mass/Vol] 124 mg/dL Normal <130 [facility] Comment on above: Result Comment: LDL <100 mg/dL - Desirable LDL >160 mg/dL - High Risk Performed By: #### 2 4331-1, THYR, CBCA, CMP, 31996-6 #### [facility] ([id number]) [address] [address] [place] [address] Cholesterol in VLDL [Mass/Vol] 64 mg/dL High 0-30 [facility] Comment on above: Performed By: #### 2 4331-1, THYR, CBCA, CMP, 70532-2 #### [facility] ([id number]) [address] [address] [place] [address] CHOLESTEROL:HDL 4.9 Normal 1.0-5.0 [facility] Comment on above: Performed By: #### 2 4331-1, THYR, CBCA, CMP, 37996-0 #### [facility] ([id number]) [address] [address] [place] [address] Triglyceride [Mass/Vol] 318 mg/dL High 27-150 [facility] Comment on above: Performed By: #### 2 4331-1, THYR, CBCA, CMP, 10002-5 #### [facility] ([id number]) [address] [address] [place] [address] THYROID PROFILEon 11-30-2023 Free T4 [Mass/Vol] 0.62 ng/dL Normal 0.61-1.60 [facility] Comment on above: Performed By: #### 2 4331-1, THYR, CBCA, CMP, 29344-8 #### [facility] ([id number]) [address] [address] [place] [address] TSH 0.97 uIU/mL Normal 0.49-4.67 [facility] Comment on above: Performed By: #### 2 4331-1, THYR, CBCA, CMP, 15977-5 #### [facility] ([id number]) [address] [address] [place] [address] Vitamin D+Metabolites [Mass/ Vol]on 11-30-2023 VITAMIN D 25 HYD TOT 25.5 ng/mL Low 30-100 [facility] Comment on above: Result Comment: Vitamin D status 25 [place] Vitamin D Deficiency <20 ng/mL Insufficiency 20-29 ng/mL Sufficiency 30-100 ng/mL Toxicity >100 ng/mL NOTE: A pediatric reference range has not been established by the beauty consultant of this kit. The [place] [employer] recommends a Vitamin D level of = or >20ng/mL in infants and children. Performed By: #### 2 4331-1, THYR, CBCA, CMP, 46131-1 #### [facility] ([id number]) [address] [facility] [place] [address] Covid-19 PCR (CVDTBH)on 09-11 SARS-CoV-2 (COVID-19) RNA MEGAN+probe Ql (Unsp spec) Not detected Normal NOT DETECTED [facility] Comment on above: Result Comment: This test is not yet approved or cleared by the [place] FDA. When there are no FDA-approved or cleared tests available, and other criteria are met, FDA can make tests available under an emergency access mechanism called an Emergency Use Authorization (EUA). The EUA for this test is supported by the [place] of Health and Human Service's (HHS's) declaration [...] SARS-CoV-2. Performed By: #### C VDTBH #### [facility] [address] [place] [address] Adis Warren Covid-19 PCR (CVDTB)on 09-11 SARS-CoV-2 (COVID-19) RNA MEGAN+probe Ql (Unsp spec) Not detected Normal NOT DETECTED [facility] Comment on above: Result Comment: This test is not yet approved or cleared by the [place] FDA. When there are no FDA-approved or cleared tests available, and other criteria are met, FDA can make tests available under an emergency access mechanism called an Emergency Use Authorization (EUA). The EUA for this test is supported by the [place] of Health and Human Service's (HHS's) declaration [...] SARS-CoV-2. Performed By: #### C VDTB #### [facility] [address] [place] [address] Adis Warren OBSOLETEon 07-04-2021 OBSOLETE Refill (COURTNEY) MARITA MESSINA ([id number]) 1985 F Date Time Provider Department 07/04/21 [...] Encounter Status:Closed by RAYMOND MEDINA on 07/05/21 [facility] OBSOLETEon 05-27-2021 OBSOLETE Refill ([facility]) NERYMARITA ([id number]) 1985 F Date Time Provider Department 05/27/21 RAYMOND MEDINA [facility] During your visit today, we [...] Encounter Status:Closed by RAYMOND MEDINA on 05/30/21 [facility] OBSOLETEon 04-26-2021 OBSOLETE Refill ([facility]) MARITA MESSINA ([id number]) 1985 F Date Time Provider Department 04/26/21 RAYMOND MEDINA [facility] During your visit today, we [...] Encounter Status:Closed by RAYMOND MEDINA on 04/27/21 [facility] Coding Summary.on 05-31-2019 Coding Summary. CODING DATE: 05/31/2019 [facility] STATUS: Home ([facility]) PAYOR: Medicaid EA DESCRIPTION 0390 LEVEL I PATHOLOGY ADMIT DX: REASON FOR VISIT DX: R87.610 Atypical squamous cells of undetermined significance on cytologic smear of cervix (ASC-US) FINAL DX: PRINCIPAL: N87.9 Dysplasia of cervix uteri, unspecified SECONDARY: R87.810 Cervical high risk human papillomavirus (HPV) DNA test positive PYMT PROC EA STAT DESCRIPTION DOCTOR NAME DATE NOTE: The code number assigned matches the documented diagnosis and / or procedure in the patient's chart. However, the narrative phrase printed from the coding software may appear abbreviated, or result in slightly different terminology. Coded By: Prachi Andres Date Saved: 05/31/2019 06:25 am [facility] Gynecology Office/Clinic Not freddie 05-20-2019 Gynecology Office/Clinic [...] and next steps Ordered: Colposcopy with biopsy 50680 Pathology Tissue Exam Pathology Tissue Exam Follow-up With When Contact Information She BINGHAM CNP In 1 year [email or web address] Additional Instructions: She BINGHAM CNP Only if needed [email or web address] Additional Instructions: Problem List/Past Medical History Ongoing [...] Father and Grandparent. Hyperlipidemia: Father. Normal [facility] Comment on above: Result Comment: Elec tronically Signed By: She BINGHAM CNP\Date and Time Signed: 05/20/19 14:48 EDT Coding Summary.on 05-06-2019 Coding Summary. CODING DATE: 05/06/2019 FINAL [facility] STATUS: Home (Routine DC) PAYOR: Medicaid EAPG [...] Date Saved: 05/06/2019 09:14 am Normal [facility] PAP [id number] 05-05-2019 Cytology report Cyto stain Doc (Cvx/Vag) Note Abnormal [facility] Comment on above: Result Comment: TEST S RESULT FLAG UNITS REF RANGE LAB Clinician Provided Cytology Information Source.............Cervix Other..............IUD No. of containers..01 ThinPrep Vial DIAGNOSIS: [A] 01 EPITHELIAL CELL ABNORMALITY. ATYPICAL SQUAMOUS CELLS OF UNDETERMINED SIGNIFICANCE (ASC-US). 01 Satisfactory for evaluation. Endocervical and/or squamous metaplastic cells (endocervical component) are present. 01 Maricarmen Stovall, Imaging Manager (ASCP) 01 Jennifer Lopes MD, Pathologist [...] Low,>-Panic High,A-Abnormal,AA-Critical Abnormal Performed at: [address] [facility] [place] [address] Soraya Cabrera MD, Performed By: #### 1 [id number] #### [facility] [address] [place] [address] HPV 16+18+31+33+35+39+45 +51+52+56+58+59+68 DNA Probe+sig amp Ql (Cvx) Positive Abnormal Negative [facility] Comment on above: Result Comment: This high-risk HPV test detects thirteen high-risk types (16/18/31/33/35/39/45/51/52/56/58/59/68) without differentiation. Performed at: [address] [id number] MD Rick Lira Performed at: =G [facility] [id number] MD Rick Lira Performed By: #### 1 [id number], [id number] #### [facility] [address] [place] [address] Physician Jennifer Crabtree 019 Pathologist review Noe (Unsp spec) [Interp] Note [facility] Comment on above: Result Comment: TEST S RESULT FLAG UNITS REF RANGE LAB Physician Read Pap Note 01 Performed FLAG LEGEND: L-Low Normal,H-High Normal,LL-Alert Low,HH-Alert High <-Panic Low,>-Panic High,A-Abnormal,AA-Critical Abnormal Performed at: [address] [facility] [address] [place] [address] Soraya Cabrera MD, Performed at: [facility] [address] [place], [place] [id number] MD Rick Lira Performed By: #### 1 [id number], [id number] #### [facility] [address] [place] [address] Gynecology Office/Clinic Not freddie 04-29-2019 Gynecology Office/Clinic [...] results Ordered: Office Visit Level 3 Est 39157 PAP [id number] w/HPV HR US Pelvis Non-OB Complete 2. 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 Hyperlipidemia: Father. Normal [facility] Comment on above: Result Comment: Elec tronically Signed By: She BINGHAM CNP\Date and Time Signed: 04/29/19 11:36 EDT PAP [id number] 04-29-2019 Gynecological Body Site CERVIX Normal [facility] Comment on above: Performed By: #### 1 [id number], [id number] #### [facility] [address] [place] [address] Other Patient Information IUD Normal [facility] Comment on above: Performed By: #### 1 [id number], [id number] #### [facility] [address] [place] [address] Vital Signs Date Time Vital Sign Value Performing Clinician Facility 10-27-2024 16:10-0500 Body height 157.5 cm Sherie Maria DPM Work Phone: [facility] 10-27-2024 16:10-0500 Body mass index (BMI) [Ratio] 40.42 kg/m2 Sherie Maria DPM Work Phone: [facility] 10-27-2024 16:10-0500 Body weight 100.25 kg Sherie Maria DPM Work Phone: [facility] 09-15-2024 11:03-0500 Body height 157.5 cm Dorcas Peralta [employer] Work Phone: [facility] 09-15-2024 11:03-0500 Body mass index (BMI) [Ratio] 40.57 kg/m2 Dorcas Peralta [employer] Work Phone: [facility] 09-15-2024 11:03-0500 Body weight 100.61 kg Dorcas Peralta [employer] Work Phone: [facility] 09-15-2024 11:03-0500 Diastolic blood pressure 80 mm[Hg] Dorcas Peralta [employer] Work Phone: [facility] 09-15-2024 11:03-0500 Heart rate 104 /min Dorcas Peralta [employer] Work Phone: [facility] 09-15-2024 11:03-0500 SaO2% (BldA) [Mass fraction] 97 % Dorcas Peralta [employer] Work Phone: [facility] 09-15-2024 11:03-0500 Systolic blood pressure 116 mm[Hg] Dorcas Peralta [employer] Work Phone: [facility] 08-04-2024 15:35-0500 Body height 157.5 cm Sherie Crow DPM Work Phone: [facility] 08-04-2024 15:35-0500 Body mass index (BMI) [Ratio] 40.6 kg/m2 Sherie Maria DPM Work Phone: [facility] 08-04-2024 15:35-0500 Body weight 100.7 kg Sherie Maria DPM Work Phone: [facility] 06-16-2024 10:54-0400 Body height 157.5 cm Dorcas Peralta [employer] Work Phone: [facility] 06-16-2024 10:54-0400 Body mass index (BMI) [Ratio] 39.36 kg/m2 Dorcas Peralta [employer] Work Phone: [facility] 06-16-2024 10:54-0400 Body weight 97.61 kg Dorcas Peralta [employer] Work Phone: [facility] 06-16-2024 10:54-0400 Diastolic blood pressure 76 mm[Hg] Dorcas Peralta [employer] Work Phone: [facility] 06-16-2024 10:54-0400 Heart rate 98 /min Dorcas Peralta [employer] Work Phone: [facility] 06-16-2024 10:54-0400 SaO2% (BldA) [Mass fraction] 97 % Dorcas Peralta [employer] Work Phone: [facility] 06-16-2024 10:54-0400 Systolic blood pressure 120 mm[Hg] Dorcas Peralta [employer] Work Phone: [facility] 05-23-2024 10:24-0400 Body mass index (BMI) [Ratio] 38.99 kg/m2 Dorcas Peralta [employer] Work Phone: [facility] 05-23-2024 10:24-0400 Body weight 96.71 kg Dorcsa Peralta [employer] Work Phone: [facility] 05-23-2024 10:24-0400 Diastolic blood pressure 72 mm[Hg] Dorcas Peralta [employer] Work Phone: [facility] 05-23-2024 10:24-0400 Heart rate 93 /min Dorcas Peralta [employer] Work Phone: [facility] 05-23-2024 10:24-0400 SaO2% (BldA) [Mass fraction] 99 % Dorcas Peralta [employer] Work Phone: [facility] 05-23-2024 10:24-0400 Systolic blood pressure 122 mm[Hg] Dorcas Peralta [employer] Work Phone: [facility] 05-14-2024 11:30-0400 Body height 157.5 cm Dorcas Peralta [employer] Work Phone: [facility] 05-14-2024 11:30-0400 Body mass index (BMI) [Ratio] 39.03 kg/m2 Dorcas Peralta [employer] Work Phone: [facility] 05-14-2024 11:30-0400 Body weight 96.8 kg Dorcas Peralta [employer] Work Phone: [facility] 05-14-2024 11:30-0400 Diastolic blood pressure 68 mm[Hg] Dorcas Peralta [employer] Work Phone: [facility] 05-14-2024 11:30-0400 Heart rate 109 /min Dorcas Peralta [employer] Work Phone: [facility] 05-14-2024 11:30-0400 SaO2% (BldA) [Mass fraction] 98 % Dorcas Peralta [employer] Work Phone: [facility] 05-14-2024 11:30-0400 Systolic blood pressure 110 mm[Hg] Dorcas Peralta [employer] Work Phone: [facility] 05-05-2024 10:18-0400 Body height 157.5 cm Jurgen English MD Work Phone: [facility] 05-05-2024 10:18-0400 Body mass index (BMI) [Ratio] 38.67 kg/m2 Jurgen English MD Work Phone: [facility] 05-05-2024 10:18-0400 Body weight 95.89 kg Jurgen English MD Work Phone: [facility] 05-05-2024 10:18-0400 Diastolic blood pressure 78 mm[Hg] Jurgen English MD Work Phone: [facility] 05-05-2024 10:18-0400 Heart rate 99 /min Jurgen English MD Work Phone: [facility] 05-05-2024 10:18-0400 SaO2% (BldA) [Mass fraction] 99 % Jurgen English MD Work Phone: [facility] 05-05-2024 10:18-0400 Systolic blood pressure 118 mm[Hg] Jurgen English MD Work Phone: [facility] 11-10-2019 14:27-0500 BMI (Body Mass Index) 35.43 kg/m2 [place], [place] 11-10-2019 14:27-0500 Body Temperature 97.59 [degF] [place] 11-10-2019 14:27-0500 Body weight 90.72 kg [place] 11-10-2019 14:27-0500 BP Diastolic 65 mm[Hg] [place] 11-10-2019 14:27-0500 BP Systolic 102 mm[Hg] [place] 11-10-2019 14:27-0500 Height 160 cm [place] 11-10-2019 14:27-0500 Pulse Oximetry 99 % [place] Encounters Encounter Date Encounter Type Care Provider Facility Start: 11-03-2024 End: 11-03-2024 Refmaribeth Alvarado LPN Work Phone: [facility] Comment on above: Obstructive sleep ap deann syndrome Start: 10-27-2024 End: 10-27-2024 Office outpatient visit 15 minutes Sherie Maria DPM Work Phone: [facility] Comment on above: Dermatophytosis of n ail (Primary Dx); Dystrophic nail; Pain around toenail, right foot; Pain around toenail, left foot Start: 10-27-2024 End: 10-27-2024 ambulatory SHERIE MARIA Not Available Start: 10-27-2024 End: 10-27-2024 Bamboo flowsheet Sherie Maria DPM Work Phone: [facility] Start: 10-27-2024 End: 10-27-2024 Bamboo flowsheet Sherie Maria DPM Work Phone: [facility] Start: 10-13-2024 End: 10-13-2024 ambulatory Sana Radford MD Facility:[facility] Start: 09-22-2024 End: 09-22-2024 Orders Only Dorcas Peralta [employer] Work Phone: [facility] Comment on above: Obstructive sleep ap deann syndrome Start: 09-20-2024 End: 09-22-2024 Alonzo Gee MD Work Phone: [facility] Comment on above: Tremor (Primary Dx) Start: 09-15-2024 End: 09-15-2024 Bamboo flowsheet Dorcas Peralta [employer] Work Phone: [facility] Start: 09-15-2024 End: 09-15-2024 Bamboo flowsheet Dorcas Peralta [employer] Work Phone: [facility] Start: 09-15-2024 End: 09-15-2024 ambulatory DORCAS PERALTA Not Available Start: 09-15-2024 End: 09-15-2024 Office outpatient visit 25 minutes Dorcas Peralta [employer] Work Phone: [facility] Comment on above: Morbid (severe) obes ity due to excess calories (CMS/HCC) (Primary Dx); BOGDAN (obstructive sleep apnea); Hepatic steatosis; Mixed hyperlipidemia (CMS/HCC); Elevated liver enzymes Start: 09-01-2024 End: 09-01-2024 ambulatory Sana Radford MD Facility:[facility] Start: 08-13-2024 End: 08-13-2024 ambulatory Dorcas Thomas PA-C Facility:[facility] Start: 08-04-2024 End: 08-04-2024 Office outpatient new 30 minutes Sherie Maria DPM Work Phone: [facility] Comment on above: Tinea pedis of both feet (Primary Dx); Chronic dermatitis of feet; Dermatophytosis of nail; Pain around toenail, right foot; Pain around toenail, left foot Start: 08-04-2024 End: 08-04-2024 ambulatory SHERIE MARIA Not Available Start: 08-04-2024 End: 08-04-2024 Bamboo flowsheet Sherie Maria DPM Work Phone: [facility] Start: 08-04-2024 End: 08-04-2024 Bamboo flowsheet Sherie Maria DPM Work Phone: [facility] Start: 07-04-2024 End: 07-04-2024 ambulatory [facility] Start: 06-16-2024 End: 06-16-2024 Bamboo flowsheet Dorcas Peralta [employer] Work Phone: [facility] Start: 06-16-2024 End: 06-16-2024 Bamboo flowsheet Dorcas Peralta [employer] Work Phone: [facility] Start: 06-16-2024 End: 06-16-2024 Office outpatient visit 25 minutes Dorcas Peralta NP Work Phone: [facility] Comment on above: Morbid (severe) obes ity due to excess calories (CMS/HCC) (Primary Dx); Bipolar disorder in full remission, most recent episode unspecified type (CMS/HCC); Mixed dyslipidemia (CMS/HCC) Start: 06-16-2024 End: 06-16-2024 ambulatory DORCAS PERALTA Not Available Start: 06-09-2024 End: 06-10-2024 Telephone encounter Marita Richardson RN [facility] Comment on above: Cholesterol labs Start: 05-26-2024 End: 05-29-2024 Refill Nehal Alvarado [employer] Work Phone: [facility] Comment on above: Gastroesophageal ref lux disease without esophagitis Rash (Primary Dx); Obesity, Class II, BMI 35-39.9 Start: 05-23-2024 End: 05-23-2024 Office outpatient visit 25 minutes Dorcas Peralta [employer] Work Phone: [facility] Comment on above: Folliculitis (Primar y Dx); Obesity, Class II, BMI 35-39.9; Morbid (severe) obesity due to excess calories ([facility]); Gastro-esophageal reflux disease without esophagitis; Body mass index (BMI) 39.0-39.9, adult; Bipolar disorder, unspecified ([facility]) Start: 05-23-2024 End: 05-23-2024 ambulatory DORCAS PERALTA Not Available Start: 05-22-2024 End: 05-22-2024 Orders Only Dorcas Peralta [employer] Work Phone: [facility] Comment on above: Dermatitis (Primary Dx) Start: 05-19-2024 End: 05-19-[address] [facility] Start: 05-19-2024 End: 05-19-2024 [facility] Start: 05-14-2024 End: 05-14-2024 Bamboo flowsheet Dorcas Peralta [employer] Work Phone: [facility] Start: 05-14-2024 End: 05-14-2024 Bamboo flowsheet Dorcas Peralta [employer] Work Phone: [facility] Start: 05-14-2024 End: 05-14-2024 Office outpatient new 45 minutes Dorcas Peralta [employer] Work Phone: [facility] Comment on above: Obesity, Class II, B UT 35-39.9 (Primary Dx); Encounter to establish care Start: 05-14-2024 End: 05-14-2024 ambulatory DORCAS PERALTA Not Available Start: 05-05-2024 End: 05-05-2024 Office outpatient new 45 minutes Luiza Chaconters DO Work Phone: [facility] Comment on above: Hypertriglyceridemia (Primary Dx); Sinus tachycardia; Chest pain, unspecified type; Palpitation; Vapes nicotine containing substance Start: 05-05-2024 End: 05-05-[address] [facility] Start: 05-02-2024 End: 05-02-2024 Chart abstracting Scanning Provider External [facility] Start: 03-24-2024 End: 03-24-2024 ambulatory CAITLYN Griffiths [facility] Start: 03-23-2024 End: 03-24-2024 Emergency department patient visit LUIZA Ahumada WE[facility] Start: 03-23-2024 End: 03-23-2024 Emergency department patient visit CAITLYN Griffiths [facility] Start: 03-10-2024 End: 04-10-2024 ambulatory LEONIDAS E [facility] Start: 03-08-2024 End: 03-08-2024 Emergency department patient visit CAITLYN Griffiths [facility] Start: 03-03-2024 End: 03-03-2024 ambulatory Caitlyn Sparrow MD Facility: [facility] Start: 02-29-2024 End: 02-29-2024 ambulatory CAITLYN Griffiths [facility] Start: 02-18-2024 End: 02-18-2024 ambulatory Caitlyn Sparrow MD Facility: [facility] Start: 02-11-2024 End: 03-10-2024 ambulatory LEONIDAS Miles [facility] Start: 01-28-2024 End: 01-28-2024 ambulatory Caitlyn Sparrow MD Facility: [facility] Start: 01-23-2024 End: 02-09-2024 ambulatory [facility] Start: 11-30-2023 End: 11-30-2023 ambulatory LEONIDAS SALCIDO [facility] Start: 11-30-2023 Encounter for genera l adult medical examination without abnormal findings CAITLYN SPARROW [facility] Start: 08-09-2023 Refill Raymond Pierre ph, [...] 02-23-2022 End: 02-23-2022 ambulatory Karel Elaine Other [employer] Other Start: 02-23-2022 Telephone encounter Karel Elaine [facility] Start: 01-09-2022 Refill Raymond Pierre ph, MD Work Phone: Neurology Comment on above: Refill Request Start: 01-04-2022 End: 01-04-2022 ambulatory Karel Elaine Other [employer] Other Start: 01-04-2022 Telephone encounter Karel Elaine [facility] Start: 12-12-2021 End: 12-12-2021 ambulatory Karel Elaine Other [employer] Other Start: 12-12-2021 Telephone encounter Karel Elaine [facility] Start: 11-30-2021 End: 12-01-[address] MUNIRA DEAL Facility:[facility] Start: 11-16-2021 End: 11-16-2021 ambulatory Karel Elaine Other [employer] Other Start: 11-16-2021 Telephone encounter Karel Elaine [facility] Start: 10-11-2021 Encounter for prepro cedural laboratory examination DR MUNIRA DEAL [facility] Start: 10-11-2021 End: 10-11-[address] [...] 08-03-2021 End: 08-03-2021 ambulatory Karel Elaine Other [employer] Other Start: 08-03-2021 Telephone encounter Karel Elaine [facility] Start: 07-28-2021 End: 07-28-2021 ambulatory Karel Elaine Other [employer] Other Start: 07-28-2021 Telephone encounter Karel Elaine [facility] Start: 11-10-2019 End: 11-11-2019 Patient encounter procedure BRADLEY SIMMONS [facility] Start: 11-10-2019 End: 11-10-2019 Subsequent hospital visit by physician Bradley Simmons Work Phone: [facility] Comment on above: Arrived Procedures Date Procedure Procedure Detail Performing Clinician Start: 10-03-2021 Adult depression screening assessment Raymond Medina MD Work Phone: Plan of Treatment Date Care Activity Detail Author Start: 2036 Shingles Vaccine (1 of 2) Shingles Vaccine (1 of 2) [facility] [place] Start: 06-10-2025 Influenza vaccination Influenza Vaccine (#1) [facility] Comment on above: Postponed from 05/11/2024 (Patient Refus ed) Start: 05-19-2025 Adult BMI Screening Adult BMI Screening [facility] Start: 05-19-2025 Tobacco Screening Tobacco Screening [facility] Start: 05-05-2025 Adult BMI Screening Adult BMI Screening [facility] Start: 05-05-2025 Tobacco Screening Tobacco Screening [facility] Start: 03-23-2025 Adult BMI Screening Adult BMI Screening [facility] Start: 03-23-2025 Tobacco Screening Tobacco Screening [facility] Start: 01-26-2025 End: 01-26-2025 Patient encounter procedure 01/26/2025 4:00 PM EDT Office Visit [facility] [address] [place] [phone] Sherie Maria DPM [address] [place] [address] [facility] Start: 12-15-2024 End: 12-15-2024 Patient encounter procedure 12/15/2024 11:00 AM EDT Office Visit [facility] [address] [place] [phone] Dorcas Peralta NP [address] [place] [address] [facility] Start: 11-08-2024 Medicare Annual Wellness (AWV) Medicare Annual Wellness (AWV) [facility] Start: 10-27-2024 End: 10-27-2024 Patient encounter procedure [facility] Comment on above: Arrived Start: 09-15-2024 End: 09-15-2024 Patient encounter procedure 09/15/2024 11:00 AM EST Office Visit [facility] [address] [place] [phone] Dorcas Peralta NP [address] [place] [address] [facility] Start: 09-08-2024 End: 06-09-2025 Alanine aminotransferase [Enzymatic activity/volume] in Serum or Plasma ALT Lab Routine Medication monitoring encounter Other hyperlipidemia Elevated triglycerides with high cholesterol Elevated LDL cholesterol level Severe obesity (BMI 35.0-39.9) with comorbidity (CMS-HCC) Other fatigue Expected: 09/08/2024 (Approximate), Expires: 06/09/2025 [employer] Comment on above: Expected: 09/08/2024 (Approximate), Expi res: 06/09/2025 Start: 09-08-2024 End: 06-09-2025 Aspartate aminotransferase [Enzymatic activity/volume] in Serum or Plasma AST Lab Routine Medication monitoring encounter Other hyperlipidemia Elevated triglycerides with high cholesterol Elevated LDL cholesterol level Severe obesity (BMI 35.0-39.9) with comorbidity (CMS-HCC) Other fatigue Expected: 09/08/2024 (Approximate), Expires: 06/09/2025 [employer] Comment on above: Expected: 09/08/2024 (Approximate), Expi res: 06/09/2025 Start: 09-08-2024 End: 06-09-2025 Cholesterol in LDL [Mass/volume] in Serum or Plasma LDL cholesterol, direct Lab Routine Medication monitoring encounter Other hyperlipidemia Elevated triglycerides with high cholesterol Elevated LDL cholesterol level Severe obesity (BMI 35.0-39.9) with comorbidity (CMS-HCC) Other fatigue Expected: 09/08/2024 (Approximate), Expires: 06/09/2025 [employer] Work Phone: Comment on above: Expected: 09/08/2024 (Approximate), Expi res: 06/09/2025 Start: 09-08-2024 End: 06-09-2025 Triglyceride [Mass/volume] in Serum or Plasma Triglycerides Lab Routine Medication monitoring encounter Other hyperlipidemia Elevated triglycerides with high cholesterol Elevated LDL cholesterol level Severe obesity (BMI 35.0-39.9) with comorbidity (CMS-HCC) Other fatigue Expected: 09/08/2024 (Approximate), Expires: 06/09/2025 [employer] Comment on above: Expected: 09/08/2024 (Approximate), Expi res: 06/09/2025 Start: 08-04-2024 End: 08-04-2024 Patient encounter procedure 08/04/2024 3:30 PM EST Office Visit [facility] [address] [place] [phone] Sherie Maria, DPM [address] [place] [address] Arrived [facility] Comment on above: Arrived Start: 06-16-2024 End: 06-16-2024 Patient encounter procedure [facility] Comment on above: Arrived Start: 05-14-2024 End: 05-14-2024 Patient encounter procedure 05/14/2024 11:30 AM EDT Office Visit [facility] [address] [place] [phone] Dorcas Peralta NP [address] [facility], [place] [id number] Arrived [facility] Comment on above: Arrived Start: 05-11-2024 COVID-19 Vaccine ( season) COVID-19 Vaccine () [facility] Start: 05-11-2024 Influenza vaccination [facility] Start: 05-05-2024 End: 05-05-2025 Echo complete W/O contrast Echo complete W/O contrast Echocardiography Routine Chest pain, unspecified type Expected: 05/05/2024, Expires: 05/05/2025 [facility] Comment on above: Expected: 05/05/2024, Expires: Start: 05-05-2024 End: 05-05-2025 Exercise stress test study Stress test (exercise only) [facility] Routine Chest pain, unspecified type Expected: 05/05/2024, Expires: 05/05/2025 [facility] Comment on above: Expected: 05/05/2024, Expires: Start: 05-05-2024 End: 05-05-2024 Patient encounter procedure 05/05/2024 10:30 AM EDT Office Visit [facility] [address] [place] [address] Luiza Webb DO [address] [place] [address] Jurgen English MD [address] [place], [place] [phone] [facility] Start: 05-11-2023 COVID-19 Vaccine () COVID-19 Vaccine () [facility] Start: 05-11-2023 Influenza vaccination [facility] Start: 10-03-2022 Adult depression screening assessment DEPRESSION SCREENING [facility] Start: 09-10-2022 DEPRESSION ASSESSMENT DEPRESSION ASSESSMENT [facility] Start: 05-11-2022 Influenza vaccination [facility] Start: 03-29-2020 End: 03-29-2020 Appointment 03/29/2020 Appointment General Surgery Bradley Simmons MD [address] [place], [place] [phone] [facility] Start: 05-11-2019 Influenza vaccination Flu vaccine (#1) [place], [place] Start: 2016 HPV TESTING HPV TESTING [facility] Start: 2016 Screening for malignant neoplasm of cervix [facility] Start: 2007 Cervical cancer screen Cervical cancer screen [place], [place] Start: 2007 PAP TESTING PAP TESTING [facility] Start: 2007 Screening for malignant neoplasm of cervix [facility] Start: 2005 Urine microalbumin profile DTAP,TDAP,TD (1 - Tdap) [facility] Start: 2004 Adult BMI Follow Up Plan Adult BMI Follow Up Plan [facility] Start: 2004 HEPATITIS C SCREENING HEPATITIS C SCREENING [facility] Start: 2004 Hepatitis C screening Hepatitis C Screening [facility] Start: 2004 HIV SCREENING HIV SCREENING [facility] Start: 2004 HIV screening HIV Screening [facility] Start: 2001 HIV screen HIV screen [place], [place] Start: 1998 Depression Screening Depression Screening [facility] Start: 12-25-1997 DTaP,Tdap and Td Vaccines (6 - Tdap) DTaP,Tdap and Td Vaccines (6 - Tdap) [facility] Start: 12-25-1997 Urine microalbumin profile DTaP,Tdap,Td Vaccine (6 - Tdap) [facility] Start: 1997 DTaP/Tdap/Td vaccine (1 - Tdap) DTaP/Tdap/Td vaccine (1 - Tdap) [place] Start: 1991 COVID-19 VACCINE (1) COVID-19 VACCINE (1) [facility] Start: 1987 Varicella vaccine (1 of 2 - 2-dose childhood series) Varicella vaccine (1 of 2 - 2-dose childhood series) [place] Start: 01-14-1987 COVID-19 VACCINE (#1) COVID-19 VACCINE (#1) [facility] Start: 1986 HEPATITIS B (1 of 3 - 3-dose series) HEPATITIS B (1 of 3 - 3-dose series) [facility] Start: 1986 Medicare Annual Wellness (AWV) Medicare Annual Wellness (AWV) [facility] Start: 1986 Tobacco Counseling Tobacco Counseling [facility] End: 05-05-2025 Hepatic function 2000 panel - Serum or Plasma Hepatic function panel Lab Routine Hypertriglyceridemia 1 Occurrences starting 05/05/2024 until 05/05/2025 [facility] Comment on above: 1 Occurrences starting 05/05/2024 until 05/05/2025 End: 05-05-2025 Lipid 1996 panel - Serum or Plasma Lipid profile Lab Routine Hypertriglyceridemia 1 Occurrences starting 05/05/2024 until 05/05/2025 [facility] Work Phone: Comment on above: 1 Occurrences starting 05/05/2024 until 05/05/2025 Immunizations Immunization Date Immunization Notes Care Provider Hansel orellana 05-15-2023 Influenza, injectabl e, Madin [place] Canine Kidney, quadrivalent with preservative Dorcas Peralta NP Work Phone: [facility] 05-15-2023 influenza virus vaccine, unspecified formulation Jugren English MD Work Phone: [facility] 07-13-2022 Influenza, injectabl e, Madin [place] Canine Kidney, preservative free, quadrivalent Dorcas Kampfer [employer] Work Phone: [facility] 09-13-2021 influenza, injectabl e, quadrivalent, preservative free Dorcas Kampfer [employer] Work Phone: [facility] 08-22-2019 influenza, injectabl e, quadrivalent, contains preservative Dorcas Kampfer [employer] Work Phone: [facility] 08-22-2019 influenza virus vaccine, unspecified formulation Raymond Medina MD Work Phone: [facility] 05-25-1998 hepatitis B vaccine, pediatric or pediatric/adolescent dosage Dorcas Kampfer [employer] Work Phone: [facility] 12-24-1997 hepatitis B vaccine, pediatric or pediatric/adolescent dosage Dorcas Kampfer [employer] Work Phone: [facility] 12-24-1997 TD(adult) unspecifie d formulation Dorcas Kampfer [employer] Work Phone: [facility] 11-19-1997 hepatitis B vaccine, pediatric or pediatric/adolescent dosage Dorcas Kampfer [employer] Work Phone: [facility] 11-19-1997 measles, mumps and rubella virus vaccine Dorcas Kampfer [employer] Work Phone: [facility] 10-26-1987 diphtheria, tetanus toxoids and pertussis vaccine Dorcas Kampfer [employer] Work Phone: [facility] 10-26-1987 measles, mumps and rubella virus vaccine Dorcas Kampfer [employer] Work Phone: [facility] 10-26-1987 trivalent poliovirus vaccine, live, oral Dorcasdwight Cummingsptiburcio [employer] Work Phone: [facility] 02-17-1987 diphtheria, tetanus toxoids and pertussis vaccine Dorcas Kampfer [employer] Work Phone: [facility] 02-17-1987 trivalent poliovirus vaccine, live, oral Dorcasdwight Cummingspfer [employer] Work Phone: [facility] 1986 diphtheria, tetanus toxoids and pertussis vaccine Dorcas Kampfer [employer] Work Phone: [facility] 1986 trivalent poliovirus vaccine, live, oral Dorcas Kampfer [employer] Work Phone: [facility] 1986 diphtheria, tetanus toxoids and pertussis vaccine Dorcas Kampfer [employer] Work Phone: [facility] 1986 trivalent poliovirus vaccine, live, oral Dorcas Kampfer [employer] Work Phone: [facility] Payers Date Payer Category Payer Medicare [id number] 2024 Private Health Insurance 2019 Medicaid MEDICAID [facility] MEDICAID [id number] 2019-Present [phone] [address] [place] [address] Medicaid [id number] 2019 Medicaid [id number] 2019 Medicare MEDICARE MEDICAR E A AND B [id number] 2019-Present [phone] [address] [address] [place] [address] Medicare [id number] 2019 Medicare [id number] [id number] .[id number] 2014 Medicaid MEDICAID [facility] DEPT OF JOB xxxxxxxxxxxx 2014-Present [phone] [address] [place] [address] xxxxxxxxxxxx [id number] .[id number] 2014 Medicare MEDICARE MEDICAR E PART A AND B xxxxxxxxxxx 2014-Present [phone] [place] [address] xxxxxxxxxxx [id number] .[id number] 1986 Unknown [id number] 2.16.840.1.820471.3.579.2 .177 1986 Unknown [id number] 2.16.840.1.118014.3.579.2 .593 1986 Unknown [id number] 2.16.840.1.883699.3.579.2 .593 1986 Unknown [id number] 2.16.840.1.719140.3.579.2 .593 1986 Unknown [id number] 2.16.840.1.035806.3.579.2 .593 1986 Unknown [id number] 2.16.840.1.563799.3.579.2 .593 1986 Unknown [id number] 2.16.840.1.741652.3.579.2 .593 1986 Unknown [id number] 2.16.840.1.095594.3.579.2 .593 1986 Unknown [id number] 2.16.840.1.488141.3.579.2 .593 1986 Unknown [id number] 2.16.840.1.052377.3.579.2 .593 1986 Unknown [id number] 2.16.840.1.370182.3.579.2 .196 1986 Unknown [id number] 2.16.840.1.494107.3.579.2 .196 1986 Unknown [id number] 2.16.840.1.104567.3.579.2 .196 1986 Unknown [id number] 2.16.840.1.226157.3.579.2 .196 1986 Unknown [id number] 2.16.840.1.317943.3.579.2 .196 1986 Unknown [id number] 2.16.840.1.907280.3.579.2 .196 1986 Unknown [id number] 2.16.840.1.062479.3.579.2 .196 1986 Unknown [id number] 2.16.840.1.485257.3.579.2 .1259 1986 Unknown [id number] 2.16.840.1.922349.3.579.2 .1258 1986 Unknown [id number] 2.16.840.1.480625.3.579.2 .1258 1986 Unknown [id number] 2.16.840.1.023344.3.579.2 .1258 1986 Unknown [id number] 2.16.840.1.092087.3.579.2 .1258 1986 Unknown [id number] 2.16.840.1.891903.3.579.2 .1258 1986 Unknown [id number] 2.16.840.1.468498.3.579.2 .1285 1986 Unknown [id number] 2.16.840.1.534528.3.579.2 .1285 1986 Unknown [id number] 2.16.840.1.968195.3.579.2 .1285 1986 Unknown [id number] 2.16.840.1.305587.3.579.2 .1285 1986 Unknown [id number] 2.16.840.1.272223.3.579.2 .1285 1986 Unknown [id number] 2.16.840.1.487896.3.579.2 .1285 1986 Unknown [id number] 2.16.840.1.144971.3.579.2 .1285 1986 Unknown [id number] 2.16.840.1.990014.3.579.2 .1285 1986 Unknown [id number] 2.16.840.1.371539.3.579.2 .1285 1986 Unknown [id number] 2.16.840.1.939583.3.579.2 .1285 1986 Unknown [id number] 2.16.840.1.690257.3.579.2 .1285 1986 Unknown [id number] 2.16.840.1.606597.3.579.2 .1285 1986 Unknown [id number] 2.16.840.1.475861.3.579.2 .1285 1986 Unknown [id number] 2.16.840.1.275784.3.579.2 .1285 1986 Unknown [id number] 2.16.840.1.189978.3.579.2 .1285 1986 Unknown [id number] 2.16.840.1.644404.3.579.2 .1285 1986 Unknown [id number] 2.16.840.1.772540.3.579.2 .1285 1986 Unknown [id number] 2.16.840.1.189420.3.579.2 .1285 1986 Unknown [id number] 2.16.840.1.099652.3.579.2 .1285 1986 Unknown [id number] 2.16.840.1.020761.3.579.2 .1286 1958 Medicaid [id number] 1958 Medicare [id number] Social History Date Type Detail Facility Start: 11-25-2018 End: 11-10-2019 Tobacco smoking status [facility] Never smoker [facility] Start: 11-10-2019 End: 10-27-2024 Alcohol intake [facility] Start: 11-10-2019 Alcohol Comment social [facility] Start: 1985 Sex Assigned At Not on file [facility] Start: 11-25-2018 End: 05-14-2024 Tobacco use and exposure Smokeless tobacco non-user [facility] Start: 11-25-2018 History SDOH Alcohol Comment [facility] Start: 04-21-2019 End: 09-14-2024 Sex Assigned At [facility] Start: 04-21-2019 End: 09-14-2024 History of Social function [facility] Adult Depression Screening Assessment [facility] Start: 05-05-2024 End: 05-14-2024 Tobacco smoking status CTIS Smokes tobacco daily [facility] Start: 05-14-2024 Tobacco Comment Vapes daily [facility] Start: 05-14-2024 Alcohol Comment caffeine intake: 12 oz coffee daily [facility] Tobacco smoking stat us [facility] Tobacco smoking consumption unknown [facility] [...] [OSQ] Very much [facility] (I/We) worried odette er (my/our) food would run out before (I/we) got money to buy more. Never true [facility] History of tobacco use Tobacco U se Types Packs/Day Years Used Date Smoking Tobacco: Every Day Vaping/E-cigarettes Smokeless Tobacco: Never [facility] Start: 01-20-2022 Alcohol Comment socially [facility] Medical Equipment Procedure Code Equipment Code Equipment Origin al Text Equipment Identifier Dates Mesh Pco Vntrl P tch 8.6cm Rpl [id number] - Sn/A - [id number] Start: 04-01-2019 Clinical Notes 09-15-2021 to 10-27-2024 Sherie Maria, JOSE - 10/27/2024 4:15 PM ESTPatient InstructionsDorcas Peralta, KOBE - 09/15/2024 11:00 AM Melodie Maria, MAAMEM - 08/04/2024 3:30 PM ESTPatient Instructions Note Date & Type Note Facility 10-27-2024 History of Present illness Narrative Images from the original note were not included. Subjective Patient ID: Marita Messina is a 39 y.o. female who presents for Fungus (Established pt presents today for fuv of fungal nails. Pt states she does not think the formula 7 is working very well, especially with the RGT. Pt states she is getting blood work done tomorrow for the possibility of getting terbinafine medication. ). HPI Follow-up assessment: Onychodystrophy/mycosis multiple digits. Chronic tinea dermatitis involving both feet. Patient reports favorable resolution of the skin condition. Reports no distinct improvement in the toenail condition. Reports good compliance with topical care measures. Medications Current Outpatient Medications: albuterol HFA 90 [...] the morning and 300 mg before bedtime. (Patient taking differently: Take 600 mg by mouth in the morning and 600 mg before bedtime.), Disp: , Rfl: hydrOXYzine pamoate (Vistaril) 50 MG capsule, 50 mg 2 (two) times a day as needed, Disp: , Rfl: ketoconazole (NIZOral) 2 % shampoo, Apply topically 2 (two) times a week, Disp: 120 mL, Rfl: 0 LORazepam (Ativan) 0.5 MG tablet, Take 1 tablet by mouth every 6 (six) hours if needed, Disp: , Rfl: Allenhurst-3 Fatty Acids (FISH OIL OMEGA-3 PO), Take 2 g by mouth in the morning and 2 g before bedtime. 2 g 2 tab bid. ., Disp: , Rfl: omeprazole (PriLOSEC) [address] capsule, Take 1 capsule (20 mg) by mouth 1 (one) time each day at the same time, Disp: 90 capsule, Rfl: 0 ondansetron ODT (Zofran-ODT) 4 MG disintegrating tablet, 4 mg every 8 (eight) hours if needed, Disp: , Rfl: propranolol (Inderal) 20 MG tablet, Take 1 tablet (20 mg) by mouth in the morning and 1 tablet (20 mg) before bedtime., Disp: 180 tablet, Rfl: 1 Repatha SureClick 140 MG/ML injection, Inject 140 mg under the skin every 14 (fourteen) days, Disp: , Rfl: rizatriptan (Maxalt) 5 MG tablet, 5 mg 1 (one) time if needed, Disp: , Rfl: Tirzepatide 2.5 MG/0.5ML solution auto-injector, Inject 2.5 mg under the skin 1 (one) time per week, Disp: 2 mL, Rfl: 1 Tirzepatide-Weight Management (Zepbound) 2.5 MG/0.5ML solution auto-injector, Inject 2.5 mg under the skin 1 (one) time per week, Disp: 2 mL, Rfl: 1 traZODone (Desyrel) 50 MG tablet, Take 50 mg by mouth at bedtime, Disp: , Rfl: Vraylar 6 MG capsule, [...] sensation intact. Dermatologic: Skin turgor is good. Effective clearing of tinea dermatitis bilateral. Web space areas are clean, dry, non-inflamed. Right great toe: TDO deformity: Toenail dystrophy, discoloration, clubbing, subtotal detachment with periungual hyperkeratotic and mycotic debris; without drainage. Left great toe: DSO deformity of the medial and lateral margins extending to the lunula area. Distal subungual keratotic and mycotic debris. Multiple lesser digits: Toenail discoloration, mild dystrophy and clinical mycosis. Orthopedic: Range of motion: Passive ankle dorsiflexion is limited, consistent with mild gastrocnemius equinus. Otherwise maintains functional ankle, subtalar and 1st MTP joint range of motion. Lesion pattern: No forefoot or digital discrete keratotic lesions are noted. Radiology: Assessment/Plan 1. Symptomatic onychodystrophy/mycosis bilateral great toes. 2. Tinea dermatitis bilateral; effectively resolved with Lotrisone therapy. 3. Fatty liver by history. Plan: Review of clinical findings, etiology and contributing/aggravating factors, response to date, treatment strategy, rationale and objectives. Continue topical care measures formula 7; preceded by use of vinegar and/or Listerine as directed. Continue Lotrisone once daily as needed. Patient is scheduled for blood studies tomorrow; if hepatic enzymes are normalized or acceptable; she would like to proceed with oral terbinafine therapy; which she states that she was on some years previous; completed a 90 day course without adverse effects; noted favorable transient improvement. Will contact patient with results and proceed accordingly. Procedure: Toenail debridement: Aseptic technique: Hand and [...] Sherie Maria DPM documented in this encounter [facility] 10-27-2024 Instructions Sherie Maria DPM - 10/27/2024 4:15 PM EST Topical care measures as noted documented in this encounter [facility] 09-15-2024 History of Present illness Narrative Images [...] have her cholesterol levels checked tomorrow. Her job coach has expressed concern over her fluctuating liver enzyme levels and has ordered a retest. She has not undergone any extensive workup for her liver, only lab tests. Her liver enzyme levels have shown variability in the past. She is uncertain if she has fatty liver disease. She has been prescribed a macanese for a toenail fungus, which has proven [...] tablet 1 tablet, Every 6 hours PRN Allenhurst-3 Fatty Acids (FISH OIL OMEGA-3 PO) 2 [...] agreeable to this. documented in this encounter [facility] 08-11-2024 Note Patient Education Ma terials Name: Marita Messina Current Date: 08/11/2024 16:18:15 Ivette/[facility] : 1985 [facility]: [id number] The following sheet(s) are the Patient Education [...] breast self-exam (BSE). These experts include the [place] [employer] and the [place] [employer]. Some experts [...] This means they are not cancer. ? [id number] [employer]. All rights reserved. This information is not [...] prevent urine, gas, or stool leakage. ? [id number] [employer]. All rights reserved. This information is not intended as a substitute fo (more content not included)... [facility] 08-04-2024 History of Present illness Narrative Subjective Patient ID: Marita Messina is a 39 y.o. female who presents for Fungus (Pt is here today for fungal nails, first noticed about 1 yr ago. Also athlete's foot BL. She has tried OTC topical fungal macanese, no change noted. /SS:8 ). HPI Initial [...] and not practical. Patient typically has toenail macanese on a constant basis. Also complains of [...] (six) hours if needed, Disp: , Rfl: Allenhurst-3 Fatty Acids (FISH OIL OMEGA-3 PO), Take [...] most recent hepatic enzymes elevated (May 2024). [place] agreement to proceed with topical care measures: [...] Sherie Maria DPM documented in this encounter [facility] 08-04-2024 Instructions Sherie Maria DPM - 08/04/2024 3:30 PM EST As noted documented in this encounter [facility] 06-16-2024 History of Present illness Narrative Images [...] 1 tablet, Oral, Every 6 hours PRN Allenhurst-3 Fatty Acids (FISH OIL OMEGA-3 PO) 2 [...] PCAB accredited and rated highly by the [employer]. Prescription sent to pharmacy Bipolar disorder in full remission, most recent episode unspecified type (CMS/HCC) -Followed by psych Mixed dyslipidemia (CMS/HCC) -Followed by cardiology documented in this encounter [facility] 06-09-2024 Miscellaneous Notes Images from the original note were not included. Pt called back as she stated that received a msg from re: her recent cholesterol labs. Reviewed recent cholesterol labs and result notes/orders from [facility] as charted below: Jennifer Zamora, Cheryl 06/09/2024 2:05 PM EDT Back to Top Ok per [facility] for pt to start repatha 140mg sc every 14 days and fish oil 2gm twice a day. Repeat direct LDL and Tgs, along with AST and ALT, in 3 mths. Tried to contact pt to discuss. LMAM for pt to return the call. Jurgen English MD 06/08/2024 3:34 PM EDT Reviewed. Agree to plan. Thanks! Jennifer Zamora, PharmZuhair 05/27/2024 11:43 AM EDT [facility] - please let me know if you agree with my recommendations.Thank you! Pt with hyperlipidemia, bipolar disorder, narcolepsy, BOGDAN, h/o PE, and obesity. Pt is a current smoker. Family history: Paternal grandfather had CABG in late 50s. Wt 95.7kg; BMI 38.59 ASCVD 10 yr risk: 6.6% 05/19/24: chol 276, Tg 488, HDL 42, direct LDL 181, Cr 0.89, glu 95, AST 54 (normal 0 - 41), ALT 85 (normal 0 - 31) 03/23/24: AST 48, ALT 81 11/30/23: AST 31, ALT 59; chol 236, Tg 318, HDL 48, LDL 124 03/23/24: TSH and T4free normal 02/29/24: HbA1c 5 Pt started wegovy 05/14/24 for wt loss. PT Tg are elevated above goal < 150. Usually cariprazine does not increase Tgs. TFTs are normal as is the HbA1c. The elevated Tgs are probably due to genetics or diet/obesity. Would recommend low simple sugar diet and low saturated fat diet, no alcohol or sugary beverages, along with wt loss. Pt was just prescribed wegovy which should help with wt loss and therefore help lower the tgs. Would also recommend fish oil 4 gm daily to lower Tgs. Goal LDL - lowering of LDL by about 50% due to LDL 181, family h/o CAD and current smoker. Would avoid statin and ezetimibe for now due to unknown reason for elevated LFTS. There was a CT angiogram on 03/23/24 that showed diffuse hepatic steatosis which may be the cause of her elevated LFTs. For now would recommend repatha to lower the LDL. Adam Kumari RN 05/20/2024 8:22 AM EDT Pt is aware of abnormal lab results and v/u we will call with further recommendations. Adam Kumari RN 05/20/2024 8:20 AM EDT MD Adam Cruz RN Hi Adam, can you please refer patient to lipid clinic for education and assistance managing hyperlipidemia. Thanks! Pt verbalized understanding and was agreeable to [facility]'s orders/'s recommendations. Pt requested that script for Repatha be sent to [facility] in [place] and stated that she will get the Fish Oil OTC. Above orders routed to the [facility] to sign and send.-SRS documented [facility] 06-09-2024 Telephone encounter Note Images from the original note were not included. Pt called back as she stated that received a msg from re: her recent cholesterol labs. Reviewed recent cholesterol labs and result notes/orders from [facility] as charted below: Jennifer Zamora PharmD 06/09/2024 2:05 PM EDT Back to Top Ok per [facility] for pt to start repatha 140mg sc every 14 days and fish oil 2gm twice a day. Repeat direct LDL and Tgs, along with AST and ALT, in 3 mths. Tried to contact pt to discuss. LMAM for pt to return the call. Jurgen English MD 06/08/2024 3:34 PM EDT Reviewed. Agree to plan. Thanks! Jennifer Zamora PharmD 05/27/2024 11:43 AM EDT [facility] - please let me know if you agree with my recommendations.Thank you! Pt with hyperlipidemia, bipolar disorder, narcolepsy, BOGDAN, h/o PE, and obesity. Pt is a current smoker. Family history: Paternal grandfather had CABG in late 50s. Wt 95.7kg; BMI 38.59 ASCVD 10 yr risk: 6.6% 05/19/24: chol 276, Tg 488, HDL 42, direct LDL 181, Cr 0.89, glu 95, AST 54 (normal 0 - 41), ALT 85 (normal 0 - 31) 03/23/24: AST 48, ALT 81 11/30/23: AST 31, ALT 59; chol 236, Tg 318, HDL 48, LDL 124 03/23/24: TSH and T4free normal 02/29/24: HbA1c 5 Pt started wegovy 05/14/24 for wt loss. PT Tg are elevated above goal < 150. Usually cariprazine does not increase Tgs. TFTs are normal as is the HbA1c. The elevated Tgs are probably due to genetics or diet/obesity. Would recommend low simple sugar diet and low saturated fat diet, no alcohol or sugary beverages, along with wt loss. Pt was just prescribed wegovy which should help with wt loss and therefore help lower the tgs. Would also recommend fish oil 4 gm daily to lower Tgs. Goal LDL - lowering of LDL by about 50% due to LDL 181, family h/o CAD and current smoker. Would avoid statin and ezetimibe for now due to unknown reason for elevated LFTS. There was a CT angiogram on 03/23/24 that showed diffuse hepatic steatosis which may be the cause of her elevated LFTs. For now would recommend repatha to lower the LDL. Adam Kumari RN 05/20/2024 8:22 AM EDT Pt is aware of abnormal lab results and v/u we will call with further recommendations. Adam Kumari RN 05/20/2024 8:20 AM EDT MD Adam Cruz RN Hi Marthanna, can you please refer patient to lipid clinic for education and assistance managing hyperlipidemia. Thanks! Pt verbalized understanding and was agreeable to [facility]'s orders/[facility]'s recommendations. Pt requested that script for Repatha be sent to [facility] in [place] and stated that she will get the Fish Oil OTC. Above orders routed to the [facility] to sign and send.-SRS [facility] 05-23-2024 History of Present illness Narrative [...] disorder, unspecified (CMS/HCC) documented in this encounter [facility] 05-22-2024 History of Present illness Narrative kade documented in this encounter [facility] 05-14-2024 History of Present illness Narrative Marita [...] to be refilled. documented in this encounter [facility] 05-05-2024 History of Present illness Narrative Marita Messina Date of visit: 05/05/2024 Date of : 1985 Age: 38 y.o. Patient Active Problem List Diagnosis Gastroesophageal reflux disease without esophagitis Obstructive sleep apnea syndrome Obesity, Class II, BMI 35-39.9 Other fatigue Severe obesity (BMI 35.0-39.9) with comorbidity (CMS-HCC) Allergies Allergen Reactions Vicodin [Hydrocodone-Acetaminophen] Hives Current Outpatient Medications Medication Sig Dispense Refill AIMOVIG AUTOINJECTOR 140 mg/mL auto-injector every 30 (thirty) days. albuterol (PROVENTIL HFA;VENTOLIN HFA) 90 mcg/actuation inhaler Inhale 2 puffs every 6 (six) hours as needed for wheezing. budesonide-formoteroL (SYMBICORT) 160-4.5 mcg/actuation inhaler Inhale 2 puffs in the morning and 2 puffs before bedtime. cariprazine (VRAYLAR) 4.5 mg capsule Take 1 capsule (4.5 mg total) by mouth in the morning. cyclobenzaprine (FLEXERIL) 10 mg tablet Take 1 tablet (10 mg total) by mouth 2 (two) times a day as needed for muscle spasms. FLUoxetine (PROzac) 40 MG capsule Take 1 capsule (40 mg total) by mouth in the morning. LORazepam (ATIVAN) 0.5 mg tablet Take 1 tablet (0.5 mg total) by mouth every 6 (six) hours as needed for anxiety. omeprazole (PriLOSEC) 40 mg capsule 1 capsule (40 mg total) in the morning and at bedtime. (Patient taking differently: 20 mg in the morning.) 60 capsule 1 ondansetron ODT (ZOFRAN ODT) 4 mg disintegrating tablet Dissolve 1 tablet (4 mg total) on tongue every 8 (eight) hours as needed for nausea for up to 10 doses. 10 tablet 0 oxyCODONE-acetaminophen (PERCOCET) 5-325 mg per tablet Take 1 tablet by mouth every 12 (twelve) hours as needed for pain. propranoloL (INDERAL) 20 mg tablet Take 1 tablet (20 mg total) by mouth in the morning and 1 tablet (20 mg total) before bedtime. 0 rizatriptan (MAXALT) 5 mg tablet rizatriptan 5 mg tablet No current facility-administered medications for this visit. Chief Complaint Patient presents with New Patient [facility], SINUS TACHY, NO PREVIOUS CARDIO, SCHED W/PT History of Present Illness 38-year-old female with history of anxiety disorder, narcolepsy, BOGDAN, pulmonary embolism, sleep apnea, obesity. Patient stated that for the last few months has been having recurrent chest pain. Described as sharp sensation in the left upper chest, occurs with no relation to exertion, usually last for 15 seconds or more. Also reports feeling short of breath with exertion. No palpitations. Reports having vertigo when she seems positions or turns suddenly. No lightheadedness or syncope or presyncope. No orthopnea or edema. Occupation: Staying at home, not working currently. Tobacco: Vape nicotine. Alcohol: Occasional drinks, in moderation Recreational drugs: None Family history: Paternal grandfather had CABG in late 50s. EKG 03/23/2024: Sinus tachycardia, motion artifact noted. Nonspecific T-wave changes. Past Medical History: Diagnosis Date Anxiety Chronic neck pain receives ablations on neck Depression Migraines Narcolepsy Obstructive sleep apnea hypopnea, mild Pulmonary embolism ([facility]) history of , approx 2013 Sleep apnea Visual impairment contacts, glasses No data recorded No data recorded No data recorded Past Surgical History: Procedure Laterality Date DENTAL SURGERY wisdom teeth HERNIA REPAIR HYSTERECTOMY PARTIAL LASER ABLATION CONDYLOMA CERVICAL / VULVAR REPAIR HERNIA INCISIONAL VENTRAL MESH N/A 04/01/2019 Performed by Luis A Gr DO at [facility] Family History Problem Relation Age of Onset Melanoma Mother Hypertension Father Diabetes Father COPD Maternal Grandmother Atrial fibrillation Maternal Grandmother Hypertension Paternal Grandfather Diabetes Paternal Grandfather Social History Socioeconomic History Marital status: Spouse name: Not on file Number of children: Not on file Years of education: Not on file Highest education level: Not on file Occupational History Not on file Tobacco Use Smoking status: Every Day Types: Vaping/E-cigarettes Smokeless tobacco: Never Vaping Use Vaping status: Every Day Substances: Nicotine, Flavoring Substance and Sexual Activity Alcohol use: Yes Comment: socially Drug use: Not Currently Sexual activity: Defer Partners: Male control/protection: I.U.D. Other Topics Concern Caffeine Use Yes Social History Narrative Not on file Social Determinants of Health Financial Resource Strain: Not on file Food Insecurity: No Food Insecurity (05/05/2024) Hunger Screening Food Insecurity - Worry: Never True Food Insecurity - Inability: Never True Transportation Needs: Not on file Physical Activity: Not on file Stress: Not on file Social Connections: Not on file Interpersonal Safety: Not on file Housing Instability: Not on file Review of Systems Review of Systems Respiratory: Negative for cough, hemoptysis and wheezing. Gastrointestinal: Negative for abdominal pain, change in bowel habit and hematochezia. Genitourinary: Negative for dysuria and hematuria. Neurological: Positive for vertigo. Negative for focal weakness, headaches and paresthesias. CARDIOVASCULAR: Please review HPI. Physical Examination General appearance: Alert, oriented and cooperative. In no acute distress. Skin: Warm and dry to touch. Head: Normocephalic, without obvious abnormality, atraumatic. Ears, Nose, Mouth, Throat: Throat clear without erythema or exudate. Dentition intact. Eyes: Conjunctivae unremarkable, EOM intact. Neck: No JVD, No carotid bruit. Neck supple, trachea midline. Respiratory: Clear to auscultation bilaterally, no use of accessory muscles. Cardiovascular: RRR with normal S1 and S2 with no murmurs. Gastrointestinal: Soft, non-tender. Bowel sounds normal. Musculoskeletal: No peripheral edema. Neurologic: Oriented to time, person and place, affect appropriate. No focal/major motor defects noted. Psychiatric: Appropriate mood, memory and judgement. VITAL SIGNS: BP 118/78 (BP Site: Left Arm, BP Postition: Sitting) Pulse 99 Ht 157.5 cm (5' 2 ) Wt 95.9 kg (211 lb 6.4 oz) LMP (LMP Unknown) SpO2 99% BMI 38.67 kg/m Orders Placed or Reconciled This Encounter Medications cyclobenzaprine (FLEXERIL) 10 mg tablet Sig: Take 1 tablet (10 mg total) by mouth 2 (two) times a day as needed for muscle spasms. Medications Discontinued During This Encounter Medication Reason vit 10-iron fum-folic 65-1 mg tablet Discontinued by another clinician methocarbamoL (ROBAXIN) 500 mg tablet Discontinued by another clinician gabapentin (NEURONTIN) 300 mg capsule Discontinued by another clinician IMPRESSIONS/PLAN 1. Sinus tachycardia - [facility] [place], [place] 2. Chest pain, unspecified type - [facility] [place], [place] - Stress test (exercise only); Future - Echo complete W/O contrast; Future 3. Palpitation - [facility] [place] [place] 4. Hypertriglyceridemia - Lipid profile; Future - Hepatic function panel; Future 5. Vapes nicotine containing substance Previous cardiac related labs and test results were reviewed and discussed with the patient. No cardiac type chest pain / ESTEVEZ Sinus tachycardia Unremarkable Holter monitor 02/2024 Hx of PE - negative CTA chest 03/2024 Anxiety disorder Transaminitis Hyperlipidemia - 11/2023: Total cholesterol 236, HDL 48, LDL 124, triglycerides 318 Sleep apnea/ no CPAP use Vertigo Vape nicotine Obesity, BMI 38 Patient new to our practice. Complaining of known cardiac type chest pain and dyspnea with exertion. Suspect anxiety related symptoms. Has history of PE, CTA chest was negative for PE done last month. I ordered echocardiogram Rich assess baseline cardiac function. Exercise treadmill stress test to rule out ischemia. Recommended seeing ENT for suspected benign positional vertigo. Counseled on cessation from using vape nicotine. Counseled on diet control, exercise and weight loss. Recommended no strenuous activities until stress test results are back in no concern for ischemia. Liver enzymes noted to be mildly elevated checked recently. Repeat LFT ordered, patient will follow-up with PCP for further workup and management of transaminitis. Follow-up in 6 months or sooner per test results. Patient to call us with any cardiac questions or concerns. TODAYS ORDERS Orders Placed This Encounter Procedures Lipid profile Hepatic function panel Stress test (exercise only) Echo complete W/O contrast FOLLOW UP Return in about 6 months (around 11/05/2024). PCP: CAITLYN SPARROW MD Referring Physician: Caitlyn Sparrow MD [id number] [facility] [facility] [place] [address] documented in this encounter [facility] 08-09-2023 Miscellaneous Notes Please see pended medication. Pharmacy linked. Last ordered 03/09/2023. Ashtyn Perez MA documented in this encounter [facility] 03-09-2023 Miscellaneous Notes Please see pended medication. Pharmacy linked. Last ordered 10/25/2022. Ashtyn Perez MA documented in this encounter [facility] 07-11-2022 Note CONSULTATION PROCEDURE DATE: 07/11/2022 [...] be followed up in the office. [facility] 07-11-2022 Note CONSULTATION CONSULTATION DATE: 07/11/2022 CHIEF COMPLAINT: Trapezius and upper back pain. HISTORY OF PRESENT ILLNESS: This is a 36-year-old female who is known to the Pain Clinic. The patient, in October of this year, had a rhizotomy radiofrequency ablation along her cervical spine. This has afforded the patient significant improvement. 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 CC: Catilyn Sparrow M.D. [facility] 05-23-2022 Miscellaneous Notes Please see pended medication. Pharmacy linked. Last ordered 10/20/2021. Ashtyn Perez Ma documented in this encounter [facility] 03-08-2022 Note CONSULTATION CONSULTATION DATE: 03/08/2022 [...] Approved by: LUDA RODRIGUEZ . 03/09/2022 13:38:00 [facility] 05-02-2022 Miscellaneous Notes Please see pended medication. Pharmacy linked. Last ordered 07/05/2021. Ashtyn Perez Ma documented in this encounter [facility] 11-30-2021 Note CONSULTATION PAIN MANAGEMENT CONSULTATION [...] by: LUDA RODRIGUEZ . 12/01/2021 12:26:00 [facility] 09-15-2021 Note [place] [place] NAME: MARITA MESSINA DATE OF : MEDICAL REC#: [id number] RUBBER CUTTING MACHINE TENDER: 1421 LILIANA DAWKINS ADMIT DATE: 09/15/2021 12:21:00 RN PSYCHIATRIC DATE: 09/16/2021 11:00 DICTATING PHYSICIAN: LUDA RODRIGUEZ [...] Luda Rodriguez CNP on 09/25/2021 11:23 PM [facility] Signed and Approved by: LUDA RODRIGUEZ . 09/25/2021 23:23:00 [facility] Evaluation note Diagnosis Excessive physiologic tremor Essential and other specified forms of tremor documented in this encounter [facility]No [facility] Other Evaluation note* Diagnosis Daytime sleepiness Narcolepsy without cataplexy [facility] Diagnosis Daytime sleepiness Narcolepsy without cataplexy [facility] Diagnosis Daytime sleepiness Narcolepsy without cataplexy [facility] Diagnosis Morbid (severe) obesity due to excess calories (CMS/HCC)- Primary Bipolar disorder in full remission, most recent episode unspecified type (CMS/HCC) Mixed dyslipidemia (CMS/HCC) documented in this encounter [facility]* Diagnosis Tinea pedis of both feet- Primary Chronic dermatitis of feet Contact dermatitis and other eczema, due to unspecified cause Dermatophytosis of nail Pain around toenail, right foot Pain around toenail, left foot documented in this encounter [facility] note* Diagnosis Dermatitis- Primary Contact dermatitis and other eczema, due to unspecified cause documented in this encounter [facility] note* Diagnosis Folliculitis- Primary Other specified disease of hair and hair follicles Obesity, Class II, BMI 35-39.9 Morbid (severe) obesity due to excess calories (CMS/HCC) Gastro-esophageal reflux disease without esophagitis Body mass index (BMI) 39.0-39.9, adult Bipolar disorder, unspecified ([facility]) Bipolar disorder, unspecified documented in this encounter [facility] HealthcareEvaluation note* Diagnosis Gastroesophageal reflux disease without esophagitis Esophageal reflux documented in this encounter [facility] note* Diagnosis Obesity, Class II, BMI 35-39.9- Primary Encounter to establish care documented in this encounter [facility] note* Diagnosis Rash- Primary Rash and other nonspecific skin eruption Obesity, Class II, BMI 35-39.9 documented in this encounter [facility] note* Diagnosis Morbid (severe) obesity due to excess calories ([facility])- Primary OBGDAN (obstructive sleep apnea) Obstructive sleep apnea (adult) (pediatric) Hepatic steatosis Other chronic nonalcoholic liver disease Mixed hyperlipidemia ([facility]) Mixed hyperlipidemia Elevated liver enzymes Other nonspecific abnormal serum enzyme levels documented in this encounter [facility] note* Diagnosis Obstructive sleep apnea syndrome Obstructive sleep apnea (adult) (pediatric) documented in this encounter [facility] note* Diagnosis Tremor- Primary Abnormal involuntary movements documented in this encounter [facility] note* Diagnosis Hypertriglyceridemia- Primary Pure hyperglyceridemia Sinus tachycardia Other specified cardiac dysrhythmias Chest pain, unspecified type Palpitation Palpitations Vapes nicotine containing substance documented in this encounter [facility]* Diagnosis Medication monitoring encounter- Primary Encounter for therapeutic drug monitoring Other hyperlipidemia Elevated triglycerides with high cholesterol Mixed hyperlipidemia Elevated LDL cholesterol level Severe obesity (BMI 35.0-39.9) with comorbidity ([facility]) Other fatigue documented in this encounter [facility]* Diagnosis Dermatophytosis of nail- Primary Dystrophic nail Other specified disease of nail Pain around toenail, right foot Pain around toenail, left foot documented in this encounter [facility] note* Diagnosis Obstructive sleep apnea syndrome Obstructive sleep apnea (adult) (pediatric) documented in this encounter [facility] HealthcareInstructionsNot on filedocumented in this encounterProMediny Health SystemInstructionsNot on filedocumented in this encounterProMediSCCI [facility] SystemInstructionsNot on filedocumented in this encounterProUab [facility] Summary Purpose Family History No Family History Records FoundNo Family History Records FoundNo Family History Records FoundNo Family History Records FoundNo Family History Records FoundNo Family History Records FoundNo Family History Records Found Advance Directives No Advanced Directives Records FoundDocuments on File Type Date Recorded 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 The patient had another CT scan Sep of this year which I reviewed. It still shows prominent scar in this area but not as much fluid. Just above the fascia there are some low-density areas which may be fat or may [...] every other week Pulmonary embolism (HCC) 2014 [facility] Past Surgical History: Past Surgical History: Procedure Laterality Date HERNIA REPAIR a year had repair above belly button at [facility] HERNIA REPAIR umbilical and above belly buton also at [facility] about 2 years ago HYSTERECTOMY TUMOR REMOVAL Left 2012 left thumb at [facility] Family History: Family History Problem [...] reports and images from the [facility] system E from May 2019 and March [...] corrected by editing. documented in this encounter Reason for Referral Specialty Diagnoses / Procedures Referred By Contac t Referred To Contact Diagnoses Chest pain, unspecified type Procedures Echo complete W/O contrast Jurgen English MD [address] [place] [address] Referral ID Status Reason Start Date Expiration Date V isits Requested Visits Authorized [id number] Pending Review 05/05/2024 05/05/2025 1 1 Specialty Diagnoses / Procedures Referred By Contac t Referred To Contact Diagnoses Chest pain, unspecified type Procedures Stress test (exercise only) Jurgen English MD [address] [place] [address] Referral ID Status Reason Start Date Expiration Date V isits Requested Visits Authorized [id number] Pending Review 05/05/2024 05/05/2025 5 5 Additional Source Comments INFORMATION SOURCE (unrecogn ized section and content) DATE CREATED AUTHOR 05/31/2019 Carlos Baxter [facility] DATE CREATED AUTHOR AUTHOR'S ORGANIZ ATION 11/11/2019 [facility] DATE CREATED AUTHOR AUTHOR'S ORGANIZ ATION 12/01/2021 [facility] DATE CREATED AUTHOR AUTHOR'S ORGANIZ ATION 09/02/2022 [facility] DATE CREATED AUTHOR AUTHOR'S ORGANIZ ATION 10/17/2024 [facility] DATE CREATED AUTHOR AUTHOR'S ORGANIZ ATION 10/28/2024 [facility] DATE CREATED AUTHOR AUTHOR'S ORGANIZ ATION 11/05/[address] [facility] Source Comments (unrecognize d section and content) In the event this informatio n is protected by the Federal Confidentiality of Alcohol and Drug Abuse Patient Records regulations: The Federal rules restrict any use of the information to criminally investigate or prosecute any alcohol or drug abuse patient.[facility] Hospital[facility] the event this information is protected by the Federal Confidentiality of Alcohol and Drug Abuse Patient Records regulations: The Federal rules restrict any use of the information to criminally investigate or prosecute any alcohol or drug abuse patient.[facility] HospitalIn the event this information is protected by the Federal Confidentiality of Alcohol and Drug Abuse Patient Records regulations: The Federal rules restrict any use of the information to criminally investigate or prosecute any alcohol or drug abuse patient.[facility] HospitalIn the event this information is protected by the Federal Confidentiality of Alcohol and Drug Abuse Patient Records regulations: The Federal rules restrict any use of the information to criminally investigate or prosecute any alcohol or drug abuse patient.[facility] Reason for Visit (unrecogniz ed section and content) Reason Onset Date Comments Refill Request 01/09/2022 Reason Onset Date Comments Refill Request 03/09/2023 Reason Onset Date Comments Refill Request 08/09/2023 Reason Comments Follow-up Reason Comments Fungus Pt is here today for fungal nails, first noticed about 1 yr ago. Also athlete's foot BL. She has tried OTC topical fungal macanese, no change noted. SS:8 Reason Comments Rash Reason Onset Date Comments Med Refill 05/26/2024 Reason Comments Establish Care Weight Loss Reason Comments Weight Check Reason Onset Date Comments Med Refill 09/20/2024 Reason Comments New Patient [facility], SINUS TAC HY, NO PREVIOUS CARDIO, SCHED W/PT Specialty Diagnoses / Procedures Referred By Vickie ahumada Referred To Contact Cardiology Diagnoses Sinus tachycardia Chest pain, unspecified type Palpitation Luiza Webb T, DO [address] [place] [address] [facility] [address] [id number] Referral ID Status Reason Start Date Expiration Date Visits Requested Visits Authorized [id number] Pending Review Specialty Services Required 03/23/2024 03/23/2025 1 1 Reason Onset Date Comments Cholesterol labs 06/09/2024 Reason Comments Fungus Established pt prese nts today for fuv of fungal nails. Pt states she does not think the formula 7 is working very well, especially with the RGT. Pt states she is getting blood work done tomorrow for the possibility of getting terbinafine medication. Reason Onset Date Comments Med Refill 11/03/2024 Care Teams (unrecognized sec tion and content) Statement Clerks Supervisor Relationship Specialty Start Date End Date Caitlyn Sparrow [address] [place] [address] PCP - General Internal Medicine 11/25/18 Statement Clerks Supervisor Relationship Specialty Start Date End Date Caitlyn Sparrow [address] [place] [address] PCP - General Internal Medicine 11/25/18 Statement Clerks Supervisor Relationship Specialty Start Date End Date Caitlyn Sparrow [address] [place] [address] PCP - General Internal Medicine 11/25/18 Statement Clerks Supervisor Relationship Specialty Start Date End Date KyaraCaitlyn hope [address] [place] [address] PCP - General Internal Medicine 11/25/18 Statement Clerks Supervisor Relationship Specialty Start Date End Date Jo-Ann Gee MD [address] [place] [address] PCP - General Family Medicine 05/09/24 Statement Clerks Supervisor Relationship Specialty Start Date End Date Jo-Ann Gee MD [address] [place] [address] PCP - General Family Medicine 05/09/24 Statement Clerks Supervisor Relationship Specialty Start Date End Date Jo-Ann Gee MD [address] [place] [address] PCP - General Family Medicine 05/09/24 Statement Clerks Supervisor Relationship Specialty Start Date End Date Jo-Ann Gee MD [address] [place] [address] PCP - General Family Medicine 05/09/24 Statement Clerks Supervisor Relationship Specialty Start Date End Date Jo-Ann Gee MD [address] [place] [address] PCP - General Family Medicine 05/09/24 Statement Clerks Supervisor Relationship Specialty Start Date End Date Jo-Ann Gee MD [address] [place] [address] PCP - General Family Medicine 05/09/24 Statement Clerks Supervisor Relationship Specialty Start Date End Date Jo-Ann Gee MD [address] [place] [address] PCP - General Family Medicine 05/09/24 Statement Clerks Supervisor Relationship Specialty Start Date End Date Jo-Ann Gee MD [address] [place] [address] PCP - General Family Medicine 05/09/24 Statement Clerks Supervisor Relationship Specialty Start Date End Date Jo-Ann Gee MD [address] [place] [address] PCP - General Family Medicine 05/09/24 Statement Clerks Supervisor Relationship Specialty Start Date End Date Jo-Ann Gee MD [address] [place] [address] PCP - General Family Medicine 05/09/24 Jo-Ann Gee MD [address] [place] [address] PCP - [employer] 09/10/24 Statement Clerks Supervisor Relationship Specialty Start Date End Date Jo-Ann Gee MD [address] [place] [address] PCP - General Family Medicine 05/09/24 Jo-Ann Gee MD [address] [place] [address] PCP - [employer] 09/10/24 Statement Clerks Supervisor Relationship Specialty Start Date End Date Caitlyn Sparrow MD PCP - General Pediatrics 03/08/24 Statement Clerks Supervisor Relationship Specialty Start Date End Date Caitlyn Sparrow MD PCP - General Pediatrics 03/08/24 Statement Clerks Supervisor Relationship Specialty Start Date End Date Caitlyn Sparrow MD PCP - General Pediatrics 03/08/24 Statement Clerks Supervisor Relationship Specialty Start Date End Date Jo-Ann Gee MD [address] [place] [address] PCP - General Family Medicine 05/09/24 Jo-Ann Gee MD [address] [facility] [place] [address] PCP - [employer] 09/10/24 Statement Clerks Supervisor Relationship Specialty Start Date End Date Jo-Ann Gee MD [address] [facility] [place] [address] PCP - General Family Medicine 05/09/24 Jo-Ann Gee MD [address] [facility] [place] [address] PCP - [employer] 09/10/24 FOR RECORDS PERTAINING [...] BE BASED ON THE PRIMARY CLINICAL RECORDS. [facility]. provides no warranty or guarantee of the accuracy or completeness of information in this document.
--- NOTE | 2024-11-13 11:27 | PM.CN ---
Consult Note: HPI Data of Consult Patient: known to practice within the last 3 years Requesting Physician: Michelle Randhawa NP Primary Care Provider: CAITLYN SPARROW Consult Narrative Reason for consult: f/u neck pain Narrative: Marita Messina a pleasant 39 year old female presents for evaluation of chronic neck pain. Patient has tried and failed OTC medications, home based exercise program and cervical traction greater than 6 weeks. Pt recently underwent cervical MRI which is consistent for cervical spondylosis and DDD, previously found benefit to right and left C3-4 C5-6 facet RFAs. currently utilizing flexeril 10mg BID and gabapentin 600mg BID with benefit without side effects. NAHUN 22%. recently underwent bilateral C3/4 C5/6 MBB #1 and #2 with 100% improvement in neck pain immediately following and hours after, preop pain up to 8/10 post op pain 0/10. Pain today 4/10 today aching increasing with twisting, pushing, pulling, looking, lifting, housework, sleep. Pain improved with lying, heat, and sitting. cc:: CC: Michelle Randhawa NP Review of Systems ROS Status of ROS 10 or more systems reviewed and unremarkable except as noted in history and below Musculoskeletal Reports: neck pain PFSH PFSH Medical History Anxiety ?F41.9 - Anxiety disorder, unspecified (ICD-10) Hiatal hernia ?K44.9 - Diaphragmatic hernia without obstruction or gangrene (ICD-10) Acid reflux ?K21.9 - Gastro-esophageal reflux disease without esophagitis (ICD-10) Pulmonary embolism ?I26.99 - Other pulmonary embolism without acute cor pulmonale (ICD-10) Asthma ?J45.909 - Unspecified asthma, uncomplicated (ICD-10) Surgical History History of surgical removal of Bartholin’s gland cyst ?Z98.890 - Other specified postprocedural states (ICD-10) ?Z87.42 - Personal history of other diseases of the female genital tract (ICD-10) History of eye surgery ?Z98.890 - Other specified postprocedural states (ICD-10) [place] teeth extracted ?K08.409 - Partial loss of teeth, unspecified cause, unspecified class (ICD-10) History of hernia repair ?Z98.890 - Other specified postprocedural states (ICD-10) ?Z87.19 - Personal history of other diseases of the digestive system (ICD-10) History of hysterectomy ?Z90.710 - Acquired absence of both cervix and uterus (ICD-10) Meds Home Medications and Allergies Home Medications ?Medication ?Instructions ?Recorded ?Confirmed ?Type albuterol sulfate 90 mcg/actuation 2 puff inhalation Q6H PRN 06/22/23 11/10/24 History aerosol inhaler shortness of breath or wheezing buspirone 15 mg tablet 15 mg PO BID 06/22/23 11/10/24 History cariprazine 3 mg capsule (Vraylar) 6 mg PO DAILY 06/22/23 11/10/24 History erenumab-aooe 70 mg/mL 70 mg subcut .monthly 06/22/23 11/10/24 History subcutaneous auto-injector (Aimovig Autoinjector) fluoxetine 40 mg capsule (Prozac) 40 mg PO DAILY 06/22/23 11/10/24 History omeprazole 20 mg capsule,delayed 40 mg PO BID 06/22/23 11/10/24 History release propranolol 20 mg tablet 20 mg PO Q12H 06/22/23 11/10/24 History rizatriptan 5 mg tablet 5 mg PO Q2H PRN migraine headache 06/22/23 11/10/24 History cyclobenzaprine 10 mg tablet 10 mg PO BID 02/07/24 11/10/24 History gabapentin 300 mg capsule 600 mg PO BID 06/18/24 11/10/24 History evolocumab 140 mg/mL subcutaneous mg subcut 09/01/24 History syringe (Repatha Syringe) tirzepatide (weight loss) 2.5 2.5 mg subcut QWEEK 10/13/24 11/10/24 History mg/0.5 mL subcutaneous pen injector (Zepbound) Allergies Allergy/AdvReac Type Severity Reaction Status Date / Time hydrocodone (From Vicodin) Allergy Hives Verified 11/10/24 09:17 Exam Narrative Exam Narrative: diffuse myofascial pain and tenderness Constitutional Documenting provider has reviewed patient's vital signs: yes Common normals: no apparent distress, oriented x3, healthy appearing, alert and well nourished General appearance: cooperative HENMT Common normals: normocephalic, hearing grossly normal bilaterally and moist oral mucous membranes Head and scalp: normocephalic Eye Common normals: PERRL Pupil: PERRL Neck & C-Spine Common normals: full ROM General: normal visual inspection Cervical spine: cervical ROM normal, pain with cervical ROM and cervical spine tenderness; no paracervical muscle tenderness and no trapezius muscle tenderness Other: pain with flexion extension and rotation negative spurlings positive facet loading pain over C2-5 facets Chest Common normals: inspection of chest normal Respiratory Common normals: normal respiratory effort, no retractions and no use of accessory muscles Extremity Common normals: normal to inspection and full ROM Neuro Common normals: oriented x3, CN's II-XII intact bilaterally, moves all extremities, no focal motor deficits, no sensory deficits noted and deep tendon reflexes 2+ bilaterally Sensorium/orientation: alert Motor exam: strength 5/5 throughout and no movement abnormalities noted Psych Common normals: mental status grossly normal, thought process normal, cooperative, affect normal, speech normal and activity/motor behavior normal Speech: normal speech Thought process: normal thought process Results Additional Findings Additional findings: If on a controlled substance or opioids, I have checked an [place] report on this patient and there are no aberrancies noted in the prescribing history.??If on a controlled substance or opioid a drug screen was completed and reviewed within the last year, and if there has not been a drug screen completed we ordered one today to monitor higher risk, state monitored pain medication use. As part of providing excellent, safe, comprehensive care, the following was completed at our patient's visit: 1. A medication reconciliation and review to ensure accurate knowledge of current/active medications, including asking our patients to inform us about any [id number] medications or herbal remedies/nutritional supplements/alternative remedies. 2. A review to specifically ensure our patients have had annual screening for screening for depression, screening for tobacco use, and screening for unhealthy alcohol use. For concerning screenings had a discussion with the patient, provided patient education, and recommended follow-up with primary care provider when appropriate. If patient noted with a risk of falling, they received education on strength, gait, and balance training to prevent future risk of falling. Portions of this note may have been carried over from the previous visit and updated as appropriate. Please note this office utilizes paper charting in addition to the electronic medical record. A list of current medications, vitals, and PMH is available there as the clinical staff outside of myself do not have access to [employer] charting during the clinic day operations. As part of providing quality comprehensive care the current medications, vitals, and PMH were reviewed in the paper chart. Assessment and Plan Assessment and Plan (1) Cervical spondylosis: Assessment and Plan: The patient has had over 3 months of moderate to severe neck pain with functional impairment and inadequate response to conservative care including NSAIDS (unless there are contraindication such as concurrent blood thinners), multiple oral or topical pain medications, and home exercise program/physical therapy.? Patient has completed >6 weeks of guided home exercise program and/or formal physical therapy program without relief of their symptoms.? The Oswestry Disability Index was completed, and the patient scored a 18%.? We discussed the risks and benefits of the procedure with the patient, and we are NOT planning on using sedation as outlined in the guidelines from Medicare unless there is a documented reason that sedation would be strongly recommended.?? ?The procedure will be completed with fluoroscopic guidance.? 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
== END 2024-11-13 11:10 | disposition home or self-care (01) ==
PROVIDERS: PCP Internal Medicine; Visit Provider Nurse Practitioner
DX: M47.812 Spondylosis without myelopathy or radiculopathy, cervical region (principal); M50.30 Other cervical disc degeneration, unspecified cervical region; G89.4 Chronic pain syndrome; M79.18 Myalgia, other site
CPT/HCPCS: G0463

== ENCOUNTER 2024-12-08 07:20 | Day surgery (SDC) | payer MEDICARE, MEDICAID, SELFPAY ==
--- OUTSIDE RECORDS SUMMARY | 2024-12-08 07:23 | XMS_ITS | CCD ---
Author Organization [facility] Care Team Providers Care Crime Scene Examiner Name Role Phone BRADLEY SIMMONS Referring Unavailable Unavailable Primary Care Provider Unavailjulianne e Caitlyn Sparrow Primary Care Provider Karel Henry Unavailable Caitlyn Sparrow Primary Care Provider DR MUNIRA DEAL Attending Unavailable TOYIN, DR MUNIRA Avalos Consulting Unavailable KYARA, DR CAITLYN Griffiths Primary Care Unavail able TOYIN, DR MUNIRA Avalos Admitting Unavailable EVETTE TRUJILLO Consulting Unavailable KYARA, DR CAITLYN Griffiths Primary [...] able TOYIN, DR MUNIRA Avalos Admitting Unavailable EVETTE TRUJILLO Consulting Unavailable LUDA RODRIGUEZ Consulting Unavailable TOYIN, [...] able TOYIN, DR MUNIRA Avalos Attending Unavailable LUDA RODRIGUEZ Consulting Unavailable TOYIN, DR MUNIRA Avalos Admitting Unavailable TOYIN, DR MUNIRA Avalos Admitting Unavailable TOYIN, DR MUNIRA Avalos Attending Unavailable KYARA, DR CAITLYN Griffiths Primary Care Unavail able LUDA RODRIGUEZ Consulting Unavailable TOYIN, DR MUNIRA Avalos Attending Unavailable KYARA, DR CAITLYN Griffiths Primary Care Unavail able LUDA RODRIGUEZ Consulting Unavailable TOYIN, DR MUNIRA Avalos Admitting Unavailable Kyara, [facility] Provider Robyn CLEMONS, Jo-Ann [facility] Care Provider Robyn CLEMONS, Jo-Ann Unavailable Kyara CLEMONS, [facility] Ness vailamei Radford MD, Sana Doyle Attending Unavailable Kyara CLEMONS, [facility] Ness kolbyilable Malina CLEMONS, Sana Doyle Attending Unavailable Kyara CLEMONS, [facility] Ness vailable Malina CLEMONS, Sana Doyle Attending Unavailable Malina CLEMONS, Sana Doyle Attending Unavailable Kyara CLEMONS, [facility] Ness vailable Weiauch IVETTC, Dorcas Stewart Attending Christian Sparrow MD, [facility] Ness vailable Weihrleeanne RUSSO, Dorcas Stewart Attending Christian Sparrow MD, [facility] Ness vailable Malina CLEMONS, Sana Doyle Attending Unavailable Kyara CLEMONS, [facility] Ness vailable Kyara CLEMONS, Caitlyn [facility] Provider SHERIE MARIA Attending Unavailable KAMPFERDORCAS Attending Unavailable KAMPFER, DORCAS Attending Unavailable KAMPFERDORCAS Attending Unavailable SHERIE MARIA Attending Unavailable KAMPTIBURCIO, DORCAS Attending Unavailable KYARA, CAITLYN Griffiths Referring Unavailabl e KYARA, CAITLYN Primary Care Unavailabl e LEONIDAS [...] CAITLYN Griffiths Primary Care Unavailabl e LUIZA WEBB Attending Unavailable SMITA, LUIZA Ahumada Attending Unavailable LUIZA WEBB Referring Unavailable KYARA, CAITLYN Griffiths Primary Care Unavailabl e KYARA, CAITLYN Griffiths Referring Unavailabl e KYARA, CAITLYN Griffiths Primary Care Unavailabl e YURI, JURGEN Attending Unavailable KYARA, CAITLYN Griffiths Referring Unavailabl e KYARA, CAITLYN Griffiths Primary Care Unavailabl e YURI, ZULEIKAAMMED Referring Unavailable KYARA, CAITLYN Griffiths Primary Care Unavailabl e YURI, ZULEIKAAMMED Referring Unavailable KYARA, CAITLYN Griffiths Primary Care Unavailabl e YURI, MOHAMMRAIN Referring Unavailable KYARA, CAITLYN Griffiths Primary Care Unavailabl e LAQUITA SHARIF Attending Unavailable LAQUITA SHARIF Referring Unavailable KYARA, CAITLYN Griffiths Primary Care Unavailabl e KYARA, CAITLYN Griffiths Referring Unavailabl e JO-ANN GEE Primary Care Unavailable CELESTE DHALIWAL Referring Unavailable JO-ANN GEE Primary Care Unavailable Jo-Ann Gee MD Primary Care Provider Allergies Allergy Classification Reported Allergen(s) Allergy Type Date of Onset Reaction(s) Facility (20 sources) Acetaminophen / HYDROcodone; Translations: [HYDROCODONE-ACETA MINOPHEN] Drug Allergy 10-09-2019 [facility], [place] (9 sources) Acetaminophen / HYDROcodone; Translations: [Vicodin] Drug Allergy 09-10-2014 [facility] Medications Current Medications Medication Drug Class(es) Dates Sig (Normalized) Sig (Original) acetaminophen 325 mg / oxyCODONE hydrochloride 5 mg oral tablet (4 sources) Opioid Agonist take 1 tablet by mouth every twelve hours as needed for pain oxyCODONE-acetaminop hen (PERCOCET) 5-325 mg per tablet Take 1 tablet by mouth every 12 (twelve) hours as needed for pain. Active Aimovig 140 MG/ML (6 sources) inject 140 mg by subcutaneous injection every month Aimovig 140 MG/ML as directed Subcutaneous monthly Active [id number] 200 actuat albuterol 0.09 mg/actuat metered dose inhaler (20 sources) beta2-Adrenergic Agonist take 2 puff(s) by inhalation every six hours as needed for wheezing albuterol (PROVENTIL HFA;VENTOLIN HFA) 90 mcg/actuation inhaler Inhale 2 puffs every 6 (six) hours as needed for wheezing. Active take 2 puff(s) by mo uth every four to six hours albuterol HFA [...] as directed 45 g 1 08/04/2024 Active Budesonide / formoterol (20 sources) Corticosteroid, beta2-Adrenergic Agonist take 2 [...] and 1 tablet before bedtime. Active cariprazine 4.5 mg oral capsule (20 sources) Atypical Antipsychotic take 1 capsule by mouth in the morning cariprazine (VRAYLAR) 4.5 mg capsule Take 1 capsule (4.5 mg total) by mouth in the morning. Active take 1 capsule by mouth in the m orning Vraylar 6 MG capsule Take 1 capsule by mouth in the morning. Active cyclobenzaprine hydrochloride 10 mg oral tablet (20 sources) Muscle Relaxant take 1 tablet by mouth twice daily as needed for muscle spasms cyclobenzaprine (FLEXERIL) 10 mg tablet Take 1 tablet (10 mg total) by mouth 2 (two) times a day as needed for muscle spasms. Active take 1 tablet by [facility] twice daily as needed for muscle spasms [...] Active take 1 capsule by mo [facility] every twenty-four hours Doxycycline Hyclate 100 MG [...] source) 1 ml evolocumab 140 mg/ml auto-injector (16 sources) PCSK9 Inhibitor Start: 4 evolocumab (REPATHA SURECLICK) 140 mg/mL pen injector Inject 140 mg under the skin every 14 (fourteen) days. 6 mL 3 06/10/2024 Active FLUoxetine 10 mg oral capsule (20 sources) Serotonin Reuptake Inhibitor Start: 2 take 1 capsule by mouth every twenty-four hours FLUoxetine HCl 10 MG 1 capsule Orally Once a day for 30 day(s) 40 mg in am and 10 mg at noon Dec, Active Start: 11-20-2018 take 1 capsule by mo ut once daily FLUoxetine HCl (PROZAC) 40 mg [...] anu th every six hours as needed for anxiety LORazepam (ATIVAN) 0.5 mg tablet Take 1 tablet (0.5 mg total) by mouth every 6 (six) hours as needed for anxiety. Active take 1 tablet by anu th [...] a day for 30 days Active omega 1-ljo-awr-fish oil (Fish OiL) 300-1,000 mg capsule (2 sources) Start: 06-10-2024 take 1 capsule by mouth in the morning omega 0-bed-rbn-fish oil (Fish OiL) 300-1,000 mg capsule Take 2 g by mouth in the morning and 2 g before bedtime. 06/10/2024 Active Croghan-3 Fatty Acids (FISH OIL OMEGA-3 PO) (14 sources) take 2 tablets by mouth twice daily in the morning Croghan-3 Fatty Acids (FISH OIL OMEGA-3 PO) Take [...] tablet (20 sources) beta-Adrenergi c Gianni Start: 05-21-2019 End: 09-20-2024 take 1 tablet by mouth in the morning propranolol (Inderal) 20 MG tablet Indications: Tremor Take 1 tablet (20 mg) by mouth in the morning and 1 tablet (20 mg) before bedtime. 180 tablet 1 09/22/2024 Active Start: 05-21-2019 take 0.5 tablet by [...] Chronic Other nutritional; endocrine; and metabolic disorders (5 sources) Severe obesity; Translations: [Morbid (severe) obesity [...] ALT [Catalytic activity/Vol] 51 U/L High 0-31 [facility] Comment on above: Performed By: #### 2 4331-1, THYR, CBCA, CMP, 67133-9 #### [facility] ([id number]) [address], [address] [place] [address] Silas 11-03-2024 AST [Catalytic activity/Vol] 38 U/L Normal 0-41 [facility] Comment on above: Performed By: #### 2 4331-1, THYR, CBCA, CMP, 13581-8 #### [facility] ([id number]) [address], [address] [place] [address] DIRECT LDLon 11-03-2024 Cholesterol in LDL [Mass/Vol] 65 mg/dL Normal <130 [facility] Comment on above: Result Comment: LDL <100 mg/dL - Desirable LDL 130-159 mg/dL - Borderline High Risk LDL >160 mg/dL - High Risk Performed By: #### 2 4331-1, THYR, CBCA, CMP, 81717-3 #### [facility] ([id number]) [address], [address] [place] [address] TRIGLYCERIDEon 11-03-2024 Triglyceride [Mass/Vol] 234 mg/dL High 27-150 [facility] Comment on above: Performed By: #### 2 4331-1, THYR, CBCA, CMP, 62812-5 #### [facility] ([id number]) [address], [address] [place] [address] MR CERVICAL SPINE WO CONTon 09-16-2024 MR [...] A Myles on 09/16/2024 2:09 PM Normal [facility] Gynecology Office/Clinic Not freddie 08-13-2024 Gynecology [...] cover after 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 SPECIALIST Additional Details Contraception Contraception TypeIntrauterine device, Vasectomy [...] Normal [facility] COMPREHENSIVE METABOLIC PANE Mika 05-19-2024 Albumin [Mass/Vol] 4.6 g/dL Normal 3.2-5.3 [facility] Comment on above: Performed By: #### 2 4331-1, THYR, CBCA, CMP, 37770-4 #### [facility] ([id number]) [address], [address] [place] [address] ALP [Catalytic activity/Vol] 78 U/L Normal 39-130 [facility] Comment on above: Performed By: #### 2 4331-1, THYR, CBCA, CMP, 87632-5 #### [facility] ([id number]) [address], [address] [place] [address] ALT [Catalytic activity/Vol] 85 U/L High 0-31 [facility] Comment on above: Performed By: #### 2 4331-1, THYR, CBCA, CMP, 61428-7 #### [facility] ([id number]) [address], [address] [place] [address] Anion gap [Moles/Vol] 15 mmol/L Normal 5-15 [facility] Comment on above: Performed By: #### 2 4331-1, THYR, CBCA, CMP, 41923-7 #### [facility] ([id number]) [address], [address] [place] [address] AST [Catalytic activity/Vol] 54 U/L High 0-41 [facility] Comment on above: Performed By: #### 2 4331-1, THYR, CBCA, CMP, 68634-4 #### [facility] ([id number]) [address], [address] [place] [address] Bilirubin [Mass/Vol] 0.6 mg/dL Normal 0.3-1.2 [facility] Comment on above: Performed By: #### 2 4331-1, THYR, CBCA, CMP, 80346-9 #### [facility] ([id number]) [address], [address] [place] [address] Calcium [Mass/Vol] 9.6 mg/dL Normal 8.5-10.5 [facility] Comment on above: Performed By: #### 2 4331-1, THYR, CBCA, CMP, 10117-4 #### [facility] ([id number]) [address] [place] [address] Chloride [Moles/Vol] 102 mmol/L Normal 98-109 [facility] Comment on above: Performed By: #### 2 4331-1, THYR, CBCA, CMP, 12523-6 #### [facility] ([id number]) [address] [place] [address] CO2 [Moles/Vol] 19 mmol/L Low 22-32 [facility] Comment on above: Performed By: #### 2 4331-1, THYR, CBCA, CMP, 28336-5 #### [facility] ([id number]) [address] [place] [address] Creatinine [Mass/Vol] 0.89 mg/dL Normal 0.40-1.00 [facility] Comment on above: Result Comment: METH OD TRACEABLE TO IDMS STANDARD Performed By: #### 2 4331-1, THYR, CBCA, CMP, 17413-7 #### [facility] ([id number]) [address] [place] [address] GFR/1.73 sq M.predicted among non-blacks MDRD (S/P/Bld) [Vol rate/Area] 86 mL/min/{1.73_m2} Normal >59 [facility] Comment on above: Result Comment: Reported eGFR is based on the CKD-EPI 2020 equation that does not use a race coefficient. Performed By: #### 2 4331-1, THYR, CBCA, CMP, 22043-9 #### [facility] ([id number]) [address], [address] [place] [address] Glucose [Mass/Vol] 95 mg/dL Normal 65-99 [facility] Comment on above: Performed By: #### 2 4331-1, THYR, CBCA, CMP, 78149-6 #### [facility] ([id number]) [address] [place] [address] Potassium [Moles/Vol] 4.0 mmol/L Normal 3.5-5.0 [facility] Comment on above: Performed By: #### 2 4331-1, THYR, CBCA, CMP, 05135-8 #### [facility] ([id number]) [address], [address] [place] [address] Protein [Mass/Vol] 7.0 g/dL Normal 6.0-8.0 [facility] Comment on above: Performed By: #### 2 4331-1, THYR, CBCA, CMP, 58397-7 #### [facility] ([id number]) [address], [address] [place] [address] Sodium [Moles/Vol] 136 mmol/L Normal 134-146 [facility] Comment on above: Performed By: #### 2 4331-1, THYR, CBCA, CMP, 98162-7 #### [facility] ([id number]) [address] [place] [address] Urea nitrogen [Mass/Vol] 10 mg/dL Normal 5-23 [facility] Comment on above: Performed By: #### 2 4331-1, THYR, CBCA, CMP, 01775-5 #### [facility] ([id number]) [address], [address] [place] [address] DIRECT LDLon 05-19-2024 Cholesterol in LDL [Mass/Vol] 181 mg/dL High <130 [facility] Comment on above: Result Comment: LDL <100 mg/dL - Desirable LDL 130-159 mg/dL - Borderline High Risk LDL >160 mg/dL - High Risk Performed By: #### 2 4331-1, THYR, CBCA, CMP, 24928-4 #### [facility] ([id number]) [address], [address] [place] [address] LIVER PANELon 05-19-2024 Bilirubin.direct [Mass/Vol] 0.1 mg/dL Normal 0.0-0.4 [facility] Comment on above: Performed By: #### 2 4331-1, THYR, CBCA, CMP, 08510-4 #### [facility] ([id number]) [address], [address] [place] [address] Lipid 1996 panelon Cholesterol [Mass/Vol] 276 mg/dL High 150-200 [facility] Comment on above: Performed By: #### 2 4331-1, THYR, CBCA, CMP, 84863-3 #### [facility] ([id number]) [address], [address] [place] [address] Cholesterol in HDL [Mass/Vol] 42 mg/dL Normal >39 [facility] Comment on above: Result Comment: HDL <40 mg/dL - High Risk HDL > or = 40mg/dL- Desirable HDL >60 mg/dL - Negative Risk Performed By: #### 2 4331-1, THYR, CBCA, CMP, 62359-7 #### [facility] ([id number]) [address], [address] [place] [address] Cholesterol in VLDL [Mass/Vol] 98 mg/dL High 0-30 [facility] Comment on above: Performed By: #### 2 4331-1, THYR, CBCA, CMP, 04671-1 #### [facility] ([id number]) [address], [address] [place] [address] CHOLESTEROL:HDL 6.6 High 1.0-5.0 [facility] Comment on above: Performed By: #### 2 4331-1, THYR, CBCA, CMP, 29281-1 #### [facility] ([id number]) [address], [address] [place] [address] LDL (CALC) RESULT NOT REPORTED DUE TO HIGH TRIGLYCERIDE Normal <130 [facility] Comment on above: Performed By: #### 2 4331-1, THYR, CBCA, CMP, 54334-5 #### [facility] ([id number]) [address], [address] [place] [address] Triglyceride [Mass/Vol] 488 mg/dL High 27-150 [facility] Comment on above: Performed By: #### 2 4331-1, THYR, CBCA, CMP, 50090-5 #### [facility] ([id number]) [address], [address] [place] [address] MR LUMBAR SPINE WO CONTon MR LUMBAR [...] Bruce DO on 03/26/2024 1:45 PM Normal [facility] CBC AND AUTO DIFFon 03-23-20 24 ABSOLUTE BASOPHIL 0.0 X10E9/L Normal 0.0-0.2 [facility] Comment on above: Performed By: #### 2 4331-1, THYR, CBCA, CMP, 42572-8 #### [facility] ([id number]) [address], [address] [place] [address] ABSOLUTE NEUTROPHIL 4.7 X10E9/L Normal 1.5-6.6 [facility] Comment on above: Performed By: #### 2 4331-1, THYR, CBCA, CMP, 08125-2 #### [facility] ([id number]) [address], [address] [place] [address] Basophils/100 WBC (Bld) 0.3 % Normal [facility] Comment on above: Performed By: #### 2 4331-1, THYR, CBCA, CMP, 41203-8 #### [facility] ([id number]) [address] [place] [address] Eosinophils (Bld) [#/Vol] 0.0 10*3/uL Normal 0.0-0.4 [facility] Comment on above: Performed By: #### 2 4331-1, THYR, CBCA, CMP, 62844-3 #### [facility] ([id number]) [address] [place] [address] Eosinophils/100 WBC (Bld) 0.4 % Normal [facility] Comment on above: Performed By: #### 2 4331-1, THYR, CBCA, CMP, 82513-7 #### [facility] ([id number]) [address] [facility] [place] [address] Erythrocyte distribution width (RBC) [Ratio] 13.5 % Normal 11.5-15.0 [facility] Comment on above: Performed By: #### 2 4331-1, THYR, CBCA, CMP, 73029-6 #### [facility] ([id number]) [address] [facility] [facility] [facility] [address] [place] [address] Hematocrit (Bld) [Volume fraction] 44.6 % Normal 35-47 [facility] Comment on above: Performed By: #### 2 4331-1, THYR, CBCA, CMP, 75035-4 #### [facility] ([id number]) [address] [facility] [facility] [address] [place] [address] Hemoglobin (Bld) [Mass/Vol] 15.6 g/dL High 11.7-15.5 [facility] Comment on above: Performed By: #### 2 4331-1, THYR, CBCA, CMP, 25622-5 #### [facility] ([id number]) [address] [facility] [address] [place] [address] Lymphocytes (Bld) [#/Vol] 0.5 10*3/uL Low 1.0-3.5 [facility] Comment on above: Performed By: #### 2 4331-1, THYR, CBCA, CMP, 54355-3 #### [facility] ([id number]) [address] [facility] [facility] [address] [place] [address] Lymphocytes/100 WBC (Bld) 8.7 % Normal [facility] Comment on above: Performed By: #### 2 4331-1, THYR, CBCA, CMP, 50158-3 #### [facility] ([id number]) [address] [facility] [facility] [address] [place] [address] MCH (RBC) [Entitic mass] 32.5 pg Normal 27-34 [facility] Comment on above: Performed By: #### 2 4331-1, THYR, CBCA, CMP, 84070-5 #### [facility] ([id number]) [address] [address] [place] [address] MCHC (RBC) [Mass/Vol] 34.9 g/dL Normal 32-36 [facility] Comment on above: Performed By: #### 2 4331-1, THYR, CBCA, CMP, 47290-3 #### [facility] ([id number]) [address] [address] [place] [address] MCV (RBC) [Entitic vol] 93 fL Normal 80-100 [facility] Comment on above: Performed By: #### 2 4331-1, THYR, CBCA, CMP, 43823-5 #### [facility] ([id number]) [address] [address] [place] [address] Monocytes (Bld) [#/Vol] 0.0 10*3/uL Normal 0-0.9 [facility] Comment on above: Performed By: #### 2 4331-1, THYR, CBCA, CMP, 96581-4 #### [facility] ([id number]) [address] [address] [place] [address] Monocytes/100 WBC (Bld) 0.6 % Normal [facility] Comment on above: Performed By: #### 2 4331-1, THYR, CBCA, CMP, 51327-9 #### [facility] ([id number]) [address] [address] [place] [address] Neutrophils/100 WBC (Bld) 90.0 % Normal [facility] Comment on above: Performed By: #### 2 4331-1, THYR, CBCA, CMP, 83063-0 #### [facility] ([id number]) [address] [address] [place] [address] Platelet mean volume (Bld) [Entitic vol] 7.2 fL Normal 7-12 [facility] Comment on above: Performed By: #### 2 4331-1, THYR, CBCA, CMP, 18228-9 #### [facility] ([id number]) [address] [address] Platelets (Bld) [#/Vol] 286 10*3/uL Normal 150-450 [facility] Comment on above: Performed By: #### 2 4331-1, THYR, CBCA, CMP, 29785-6 #### [facility] ([id number]) [address] [address] [place] [address] RBC COUNT 4.80 X10E12/L Normal 3.80-5.20 [facility] Comment on above: Performed By: #### 2 4331-1, THYR, CBCA, CMP, 04996-1 #### [facility] ([id number]) [address] [address] WBC (Bld) [#/Vol] 5.3 10*3/uL Normal 4.0-11.0 [facility] Comment on above: Performed By: #### 2 4331-1, THYR, CBCA, CMP, 30618-7 #### [facility] ([id number]) [address] [place] [address] COMPREHENSIVE METABOLIC PANE Mika 07-14-2024 Albumin [Mass/Vol] 4.2 g/dL Normal 3.2-5.3 [facility] Comment on above: Performed By: #### 2 4331-1, THYR, CBCA, CMP, 25443-8 #### [facility] ([id number]) [address] [place] [address] ALP [Catalytic activity/Vol] 115 U/L Normal 39-130 [facility] Comment on above: Performed By: #### 2 4331-1, THYR, CBCA, CMP, 28225-6 #### [facility] ([id number]) [address] [place] [address] ALT [Catalytic activity/Vol] 81 U/L High 0-31 [facility] Comment on above: Performed By: #### 2 4331-1, THYR, CBCA, CMP, 84807-0 #### [facility] ([id number]) [address] [place] [address] Anion gap [Moles/Vol] 14 mmol/L Normal 5-15 [facility] Comment on above: Performed By: #### 2 4331-1, THYR, CBCA, CMP, 17019-8 #### [facility] ([id number]) [address] [place] [address] AST [Catalytic activity/Vol] 48 U/L High 0-41 [facility] Comment on above: Performed By: #### 2 4331-1, THYR, CBCA, CMP, 31356-5 #### [facility] ([id number]) [address] [place] [address] Bilirubin [Mass/Vol] 1.3 mg/dL High 0.3-1.2 [facility] Comment on above: Performed By: #### 2 4331-1, THYR, CBCA, CMP, 43346-9 #### [facility] ([id number]) [address] [place] [address] Calcium [Mass/Vol] 9.3 mg/dL Normal 8.5-10.5 [facility] Comment on above: Performed By: #### 2 4331-1, THYR, CBCA, CMP, 81564-4 #### [facility] ([id number]) [address] [place] [address] Chloride [Moles/Vol] 97 mmol/L Low 98-109 [facility] Comment on above: Performed By: #### 2 4331-1, THYR, CBCA, CMP, 93633-6 #### [facility] ([id number]) [address] [place] [address] CO2 [Moles/Vol] 22 mmol/L Normal 22-32 [facility] Comment on above: Performed By: #### 2 4331-1, THYR, CBCA, CMP, 69907-9 #### [facility] ([id number]) [address] [address] [place] [address] Creatinine [Mass/Vol] 0.91 mg/dL Normal 0.40-1.00 [facility] Comment on above: Result Comment: METH OD TRACEABLE TO IDMS STANDARD Performed By: #### 2 4331-1, THYR, CBCA, CMP, 75890-6 #### [facility] ([id number]) [address] [place] [address] GFR/1.73 sq M.predicted among non-blacks MDRD (S/P/Bld) [Vol rate/Area] 83 mL/min/{1.73_m2} Normal >59 [facility] Comment on above: Result Comment: Reported eGFR is based on the CKD-EPI 2020 equation that does not use a race coefficient. Performed By: #### 2 4331-1, THYR, CBCA, CMP, 53458-3 #### [facility] ([id number]) [address], [address] [place] [address] Glucose [Mass/Vol] 110 mg/dL High 65-99 [facility] Comment on above: Performed By: #### 2 4331-1, THYR, CBCA, CMP, 55240-6 #### [facility] ([id number]) [address] [address] [address] [facility] [address] [place] [address] Potassium [Moles/Vol] 3.8 mmol/L Normal 3.5-5.0 [facility] Comment on above: Performed By: #### 2 4331-1, THYR, CBCA, CMP, 32035-8 #### [facility] ([id number]) [address], [address] [place] [address] Protein [Mass/Vol] 8.0 g/dL Normal 6.0-8.0 [facility] Comment on above: Performed By: #### 2 4331-1, THYR, CBCA, CMP, 44718-4 #### [facility] ([id number]) [address] [place] [address] Sodium [Moles/Vol] 133 mmol/L Low 134-146 [facility] Comment on above: Performed By: #### 2 4331-1, THYR, CBCA, CMP, 46205-8 #### [facility] ([id number]) [address] [facility] [facility] [address] [place] [address] Urea nitrogen [Mass/Vol] 13 mg/dL Normal 5-23 [facility] Comment on above: Performed By: #### 2 4331-1, THYR, CBCA, CMP, 86921-3 #### [facility] ([id number]) [address] [place] [address] CT CTA CHESTon 03-23-2024 CT CTA CHEST [...] Chaparro MD on 03/23/2024 10:52 PM Normal [facility] Fibrin D-dimer DDU (PPP) [Ma ss/Vol]on 03-23-2024 D DIMER 336 ng/mL DDU High <255 [facility] Comment on above: Result Comment: Results [...] By: #### 2 4331-1, THYR, CBCA, CMP, 65849-8 #### [facility] ([id number]) [address], [address] [place] [address] HCG ( test) Ql (U)o n 03-23-2024 Beta HCG ( test) Ql (U) Negative Normal NEG [facility] Comment on above: Performed By: #### 2 4331-1, THYR, CBCA, CMP, 30574-8 #### [facility] ([id number]) [address], [address] [place] [address] LIPASEon 03-23-2024 Lipase [Catalytic activity/Vol] 30 U/L Normal 17-40 [facility] Comment on above: Performed By: #### 2 4331-1, THYR, CBCA, CMP, 87595-2 #### [facility] ([id number]) [address], [address] [place] [address] THYROID PROFILEon 03-23-2024 Free T4 [Mass/Vol] 0.74 ng/dL Normal 0.61-1.60 [facility] Comment on above: Performed By: #### 2 4331-1, THYR, CBCA, CMP, 09133-7 #### [facility] ([id number]) [address], [address] [place] [address] TSH 1.64 uIU/mL Normal 0.49-4.67 [facility] Comment on above: Performed By: #### 2 4331-1, THYR, CBCA, CMP, 49414-0 #### [facility] ([id number]) [address], [address] [place] [address] Troponin I.cardiac High sens itivity method [Mass/Vol]on 03-23-2024 1 HOUR TROP I, HIGH SENSITIVITY 3 ng/L Normal <16 [facility] Comment on above: Performed By: #### 2 4331-1, THYR, CBCA, CMP, 95242-3 #### [facility] ([id number]) [address], [address] [place] [address] TROPONIN I, HIGH SENSITIVITY 2 ng/L Normal <16 [facility] Comment on above: Performed By: #### 2 4331-1, THYR, CBCA, CMP, 22519-6 #### [facility] ([id number]) [address], [address] [place] [address] URINE CULTUREon 03-23-2024 Bacteria identified Cx Nom [...] F TRIMETH/SULFAMETHOXAZO LE S <=1/19 F Susceptible [facility] Comment on above: Performed By: #### 2 4331-1, THYR, CBCA, CMP, 79951-0 #### [facility] ([id number]) [address], [address] [place] [address] URN MACROSCOPIC NURon 2023 BILIRUBIN LUL Negative Normal NEG [facility] Comment on above: Performed By: #### 2 4331-1, THYR, CBCA, CMP, 39667-2 #### [facility] ([id number]) [address], [address] [place] [address] BLOOD/HGB LUL Small Abnormal NEG [facility] Comment on above: Performed By: #### 2 4331-1, THYR, CBCA, CMP, 18268-4 #### [facility] ([id number]) [address], [address] [place] [address] GLUCOSE LUL Negative Normal NEG [facility] Comment on above: Performed By: #### 2 4331-1, THYR, CBCA, CMP, 58207-6 #### [facility] ([id number]) [address], [address] [place] [address] KETONES LUL Negative Normal NEG [facility] Comment on above: Performed By: #### 2 4331-1, THYR, CBCA, CMP, 07985-6 #### [facility] ([id number]) [address], [address] [place] [address] LEUKOCYTE ESTERASE LUL Small Abnormal NEG [facility] Comment on above: Performed By: #### 2 4331-1, THYR, CBCA, CMP, 90341-4 #### [facility] ([id number]) [address], [address] [place] [address] NITRITE LUL Negative Normal NEG [facility] Comment on above: Performed By: #### 2 4331-1, THYR, CBCA, CMP, 31348-8 #### [facility] ([id number]) [address], [address] [place] [address] PH LLU 5.5 Normal 5.0-8.5 [facility] Comment on above: Performed By: #### 2 4331-1, THYR, CBCA, CMP, 40305-1 #### [facility] ([id number]) [address], [address] [place] [address] PROTEIN LUL Negative Normal NEG [facility] Comment on above: Performed By: #### 2 4331-1, THYR, CBCA, CMP, 98050-3 #### [facility] ([id number]) [address], [address] [place] [address] SPECIFIC GRAVITY LUL 1.010 Normal 1.003-1.035 [facility] Comment on above: Performed By: #### 2 4331-1, THYR, CBCA, CMP, 09456-4 #### [facility] ([id number]) [address], [address] [place] [address] UROBILINOGEN LUL 0.2 eu/dL Normal <1.1 [facility] Comment on above: Performed By: #### 2 4331-1, THYR, CBCA, CMP, 42233-8 #### [facility] ([id number]) [address], [facility] [address] [place] [address] CBC AND AUTO DIFFon 02-29-20 24 ABSOLUTE BASOPHIL 0.0 X10E9/L Normal 0.0-0.2 [facility] Comment on above: Performed By: #### T HYR, HA1C, CBCA, 24182-3 #### [facility] ([id number]) [address] [place] [address] ABSOLUTE NEUTROPHIL 2.8 X10E9/L Normal 1.5-6.6 [facility] Comment on above: Performed By: #### T HYR, HA1C, CBCA, 40347-3 #### [facility] ([id number]) [address], [facility] [address] [place] [address] Basophils/100 WBC (Bld) 0.7 % Normal [facility] Comment on above: Performed By: #### T HYR, HA1C, CBCA, 82023-0 #### [facility] ([id number]) [address], [facility] [address] [place] [address] Eosinophils (Bld) [#/Vol] 0.1 10*3/uL Normal 0.0-0.4 [facility] Comment on above: Performed By: #### T HYR, HA1C, CBCA, 13091-0 #### [facility] ([id number]) [address], [facility] [address] [place] [address] Eosinophils/100 WBC (Bld) 2.1 % Normal [facility] Comment on above: Performed By: #### T HYR, HA1C, CBCA, 51991-9 #### [facility] ([id number]) [address], [address] [place] [address] Erythrocyte distribution width (RBC) [Ratio] 13.7 % Normal 11.5-15.0 [facility] Comment on above: Performed By: #### T HYR, HA1C, CBCA, 98178-0 #### [facility] ([id number]) [address], [address] [place] [address] Hematocrit (Bld) [Volume fraction] 45.0 % Normal 35-47 [facility] Comment on above: Performed By: #### T HYR, HA1C, CBCA, 90415-9 #### [facility] ([id number]) [address], [address] [place] [address] Hemoglobin (Bld) [Mass/Vol] 15.5 g/dL Normal 11.7-15.5 [facility] Comment on above: Performed By: #### T HYR, HA1C, CBCA, 73115-7 #### [facility] ([id number]) [address] [address] [place] [address] Lymphocytes (Bld) [#/Vol] 1.4 10*3/uL Normal 1.0-3.5 [facility] Comment on above: Performed By: #### T HYR, HA1C, CBCA, 63827-0 #### [facility] ([id number]) [address] [place] [address] Lymphocytes/100 WBC (Bld) 28.9 % Normal [facility] Comment on above: Performed By: #### T HYR, HA1C, CBCA, 36527-0 #### [facility] ([id number]) [address], [address] [place] [address] MCH (RBC) [Entitic mass] 32.0 pg Normal 27-34 [facility] Comment on above: Performed By: #### T HYR, HA1C, CBCA, 68306-3 #### [facility] ([id number]) [address], [address] [place] [address] MCHC (RBC) [Mass/Vol] 34.3 g/dL Normal 32-36 [facility] Comment on above: Performed By: #### T HYR, HA1C, CBCA, 72784-5 #### [facility] ([id number]) [address], [address] [place] [address] MCV (RBC) [Entitic vol] 93 fL Normal 80-100 [facility] Comment on above: Performed By: #### T HYR, HA1C, CBCA, 59824-5 #### [facility] ([id number]) [address], [address] [place] [address] Monocytes (Bld) [#/Vol] 0.4 10*3/uL Normal 0-0.9 [facility] Comment on above: Performed By: #### T HYR, HA1C, CBCA, 22667-8 #### [facility] ([id number]) [address] [place] [address] Monocytes/100 WBC (Bld) 8.4 % Normal [facility] Comment on above: Performed By: #### T HYR, HA1C, CBCA, 23455-5 #### [facility] ([id number]) [address] [place] [address] Neutrophils/100 WBC (Bld) 59.9 % Normal [facility] Comment on above: Performed By: #### T HYR, HA1C, CBCA, 83918-6 #### [facility] ([id number]) [address] [place] [address] Platelet mean volume (Bld) [Entitic vol] 8.5 fL Normal 7-12 [facility] Comment on above: Performed By: #### T HYR, HA1C, CBCA, 60855-5 #### [facility] ([id number]) [address] [place] [address] Platelets (Bld) [#/Vol] 272 10*3/uL Normal 150-450 [facility] Comment on above: Performed By: #### T HYR, HA1C, CBCA, 74376-4 #### [facility] ([id number]) [address] [place] [address] RBC COUNT 4.83 X10E12/L Normal 3.80-5.20 [facility] Comment on above: Performed By: #### T HYR, HA1C, CBCA, 56196-4 #### [facility] ([id number]) [address], [facility] [address] [place] [address] WBC (Bld) [#/Vol] 4.7 10*3/uL Normal 4.0-11.0 [facility] Comment on above: Performed By: #### T HYR, HA1C, CBCA, 17915-8 #### [facility] ([id number]) [address] [place] [address] HGB A1C (GLYCO-HGB)on 2023 Glucose [Mass/Vol] 97 mg/dL Normal [facility] Comment on above: Performed By: #### T HYR, HA1C, CBCA, 49799-5 #### [facility] ([id number]) [address] [place] [address] HbA1c (Bld) [Mass fraction] 5.0 % Normal 4.4-5.6 [facility] Comment on above: Result Comment: NOTE ADA Guidelines Result HgbA1c Normal : less than 5.7 % Prediabetes : 5.7 % to 6.4 % Diabetes : > 6.4 % Use with caution in patients with abnormal hemoglobin variants as the half-life of red blood cells and in vivo glycation rates are affected. Performed By: #### T HYR, HA1C, CBCA, 87117-6 #### [facility] ([id number]) [address], [address] [place] [address] THYROID PROFILEon 02-29-2024 Free T4 [Mass/Vol] 0.67 ng/dL Normal 0.61-1.60 [facility] Comment on above: Performed By: #### T HYR, HA1C, CBCA, 70216-8 #### [facility] ([id number]) [address] [facility] [facility] [address] [place] [address] TSH 1.84 uIU/mL Normal 0.49-4.67 [facility] Comment on above: Performed By: #### T HYR, HA1C, CBCA, 87098-0 #### [facility] ([id number]) [address] [place] [address] Vitamin D+Metabolites [Mass/ Vol]on 02-29-2024 VITAMIN D 25 HYD TOT 32.3 ng/mL Normal 30-100 [facility] Comment on above: Result Comment: Vitamin D status 25 [place] Vitamin D Deficiency <20 ng/mL Insufficiency 20-29 ng/mL Sufficiency 30-100 ng/mL Toxicity >100 ng/mL NOTE: A pediatric reference range has not been established by the investigator narcotics of this kit. The [employer] [employer] recommends a Vitamin D level of = or >20ng/mL in infants and children. Performed By: #### 2 4331-1, THYR, CBCA, CMP, 14474-3 #### [facility] ([id number]) [address], [facility] [address] [place] [address] XR LUMBAR SPINE AP, LATERAL, FLEXION AND EXTENSION ONLYon 03-25-2024 XR LUMBAR SPINE AP, LATERAL, FLEXION AND [...] Chun MD on 12/03/2023 10:04 AM Normal [facility] XR SPINE CERVICAL 3 VWS OR [...] Jay MD on 12/02/2023 7:06 AM Normal [facility] CBC AND AUTO DIFFon 11-30-19 ABSOLUTE BASOPHIL 0.0 X10E9/L Normal 0.0-0.2 [facility] Comment on above: Performed By: #### 2 4331-1, THYR, CBCA, CMP, 34290-8 #### [facility] ([id number]) [address] [place] [address] ABSOLUTE NEUTROPHIL 2.5 X10E9/L Normal 1.5-6.6 [facility] Comment on above: Performed By: #### 2 4331-1, THYR, CBCA, CMP, 82232-9 #### [facility] ([id number]) [address] [address] [place] [address] Basophils/100 WBC (Bld) 0.5 % Normal [facility] Comment on above: Performed By: #### 2 4331-1, THYR, CBCA, CMP, 12626-1 #### [facility] ([id number]) [address], [facility] [address] [place] [address] Eosinophils (Bld) [#/Vol] 0.0 10*3/uL Normal 0.0-0.4 [facility] Comment on above: Performed By: #### 2 4331-1, THYR, CBCA, CMP, 82538-4 #### [facility] ([id number]) [address] [address] [place] [address] Eosinophils/100 WBC (Bld) 1.2 % Normal [facility] Comment on above: Performed By: #### 2 4331-1, THYR, CBCA, CMP, 79603-6 #### [facility] ([id number]) [address] [address] [place] [address] Erythrocyte distribution width (RBC) [Ratio] 13.7 % Normal 11.5-15.0 [facility] Comment on above: Performed By: #### 2 4331-1, THYR, CBCA, CMP, 71224-8 #### [facility] ([id number]) [address] [address] [place] [address] Hematocrit (Bld) [Volume fraction] 43.0 % Normal 35-47 [facility] Comment on above: Performed By: #### 2 4331-1, THYR, CBCA, CMP, 05298-8 #### [facility] ([id number]) [address] [address] [place] [address] Hemoglobin (Bld) [Mass/Vol] 15.0 g/dL Normal 11.7-15.5 [facility] Comment on above: Performed By: #### 2 4331-1, THYR, CBCA, CMP, 70021-8 #### [facility] ([id number]) [address] [address] [place] [address] Lymphocytes (Bld) [#/Vol] 0.9 10*3/uL Low 1.0-3.5 [facility] Comment on above: Performed By: #### 2 4331-1, THYR, CBCA, CMP, 06605-5 #### [facility] ([id number]) [address] [address] [place] [address] Lymphocytes/100 WBC (Bld) 23.6 % Normal [facility] Comment on above: Performed By: #### 2 4331-1, THYR, CBCA, CMP, 24080-0 #### [facility] ([id number]) [address] [address] [place] [address] MCH (RBC) [Entitic mass] 32.2 pg Normal 27-34 [facility] Comment on above: Performed By: #### 2 4331-1, THYR, CBCA, CMP, 16226-1 #### [facility] ([id number]) [address] [address] [place] [address] MCHC (RBC) [Mass/Vol] 35.0 g/dL Normal 32-36 [facility] Comment on above: Performed By: #### 2 4331-1, THYR, CBCA, CMP, 58398-8 #### [facility] ([id number]) [address] [address] [place] [address] MCV (RBC) [Entitic vol] 92 fL Normal 80-100 [facility] Comment on above: Performed By: #### 2 4331-1, THYR, CBCA, CMP, 68496-3 #### [facility] ([id number]) [address] [place] [address] Monocytes (Bld) [#/Vol] 0.3 10*3/uL Normal 0-0.9 [facility] Comment on above: Performed By: #### 2 4331-1, THYR, CBCA, CMP, 18063-0 #### [facility] ([id number]) [address], [facility] [address] [place] [address] Monocytes/100 WBC (Bld) 7.0 % Normal [facility] Comment on above: Performed By: #### 2 4331-1, THYR, CBCA, CMP, 01255-4 #### [facility] ([id number]) [address], [facility] [address] [place] [address] Neutrophils/100 WBC (Bld) 67.7 % Normal [facility] Comment on above: Performed By: #### 2 4331-1, THYR, CBCA, CMP, 28454-3 #### [facility] ([id number]) [address] [address] [place] [address] Platelet mean volume (Bld) [Entitic vol] 8.7 fL Normal 7-12 [facility] Comment on above: Performed By: #### 2 4331-1, THYR, CBCA, CMP, 69591-1 #### [facility] ([id number]) [address] [address] [place] [address] Platelets (Bld) [#/Vol] 186 10*3/uL Normal 150-450 [facility] Comment on above: Performed By: #### 2 4331-1, THYR, CBCA, CMP, 13800-5 #### [facility] ([id number]) [address] [address] [place] [address] RBC COUNT 4.67 X10E12/L Normal 3.80-5.20 [facility] Comment on above: Performed By: #### 2 4331-1, THYR, CBCA, CMP, 85503-0 #### [facility] ([id number]) [address] [place] [address] WBC (Bld) [#/Vol] 3.7 10*3/uL Low 4.0-11.0 [facility] Comment on above: Performed By: #### 2 4331-1, THYR, CBCA, CMP, 34353-3 #### [facility] ([id number]) [address] [place] [address] COMPREHENSIVE METABOLIC PANE Mika 11-30-2023 Albumin [Mass/Vol] 4.4 g/dL Normal 3.2-5.3 [facility] Comment on above: Performed By: #### 2 4331-1, THYR, CBCA, CMP, 55760-2 #### [facility] ([id number]) [address] [address] [place] [address] ALP [Catalytic activity/Vol] 65 U/L Normal 39-130 [facility] Comment on above: Performed By: #### 2 4331-1, THYR, CBCA, CMP, 35577-3 #### [facility] ([id number]) [address] [address] [place] [address] ALT [Catalytic activity/Vol] 59 U/L High 0-31 [facility] Comment on above: Performed By: #### 2 4331-1, THYR, CBCA, CMP, 46875-2 #### [facility] ([id number]) [address] [place] [address] Anion gap [Moles/Vol] 6 mmol/L Normal 5-15 [facility] Comment on above: Performed By: #### 2 4331-1, THYR, CBCA, CMP, 65288-8 #### [facility] ([id number]) [address] [place] [address] AST [Catalytic activity/Vol] 31 U/L Normal 0-41 [facility] Comment on above: Performed By: #### 2 4331-1, THYR, CBCA, CMP, 58434-7 #### [facility] ([id number]) [address] [place] [address] Bilirubin [Mass/Vol] 0.8 mg/dL Normal 0.3-1.2 [facility] Comment on above: Performed By: #### 2 4331-1, THYR, CBCA, CMP, 33503-0 #### [facility] ([id number]) [address] [place] [address] Calcium [Mass/Vol] 9.1 mg/dL Normal 8.5-10.5 [facility] Comment on above: Performed By: #### 2 4331-1, THYR, CBCA, CMP, 67532-8 #### [facility] ([id number]) [address] [place] [address] Chloride [Moles/Vol] 103 mmol/L Normal 98-109 [facility] Comment on above: Performed By: #### 2 4331-1, THYR, CBCA, CMP, 84547-2 #### [facility] ([id number]) [address] [place] [address] CO2 [Moles/Vol] 28 mmol/L Normal 22-32 [facility] Comment on above: Performed By: #### 2 4331-1, THYR, CBCA, CMP, 58470-3 #### [facility] ([id number]) [address] [place] [address] Creatinine [Mass/Vol] 0.86 mg/dL Normal 0.40-1.00 [facility] Comment on above: Result Comment: METH OD TRACEABLE TO IDMS STANDARD Performed By: #### 2 4331-1, THYR, CBCA, CMP, 41877-5 #### [facility] ([id number]) [address] [address] [place] [address] GFR/1.73 sq M.predicted among non-blacks MDRD (S/P/Bld) [Vol rate/Area] 89 mL/min/{1.73_m2} Normal >59 [facility] Comment on above: Result Comment: Reported eGFR is based on the CKD-EPI 2020 equation that does not use a race coefficient. Performed By: #### 2 4331-1, THYR, CBCA, CMP, 10435-5 #### [facility] ([id number]) [address] [address] [place] [address] Glucose [Mass/Vol] 97 mg/dL Normal 65-99 [facility] Comment on above: Performed By: #### 2 4331-1, THYR, CBCA, CMP, 64797-3 #### [facility] ([id number]) [address] [address] [place] [address] Potassium [Moles/Vol] 3.8 mmol/L Normal 3.5-5.0 [facility] Comment on above: Performed By: #### 2 4331-1, THYR, CBCA, CMP, 69347-2 #### [facility] ([id number]) [address] [address] [place] [address] Protein [Mass/Vol] 6.6 g/dL Normal 6.0-8.0 [facility] Comment on above: Performed By: #### 2 4331-1, THYR, CBCA, CMP, 23892-9 #### [facility] ([id number]) [address] [address] [place] [address] Sodium [Moles/Vol] 137 mmol/L Normal 134-146 [facility] Comment on above: Performed By: #### 2 4331-1, THYR, CBCA, CMP, 47762-8 #### [facility] ([id number]) [address] [place] [address] Urea nitrogen [Mass/Vol] 9 mg/dL Normal 5-23 [facility] Comment on above: Performed By: #### 2 4331-1, THYR, CBCA, CMP, 15776-9 #### [facility] ([id number]) [address] [place] [address] Lipid 1996 panelon 4 Cholesterol [Mass/Vol] 236 mg/dL High 150-200 [facility] Comment on above: Performed By: #### 2 4331-1, THYR, CBCA, CMP, 02737-2 #### [facility] ([id number]) [address] [place] [address] Cholesterol in HDL [Mass/Vol] 48 mg/dL Normal >39 [facility] Comment on above: Result Comment: HDL <40 mg/dL - High Risk HDL > or = 40mg/dL- Desirable HDL >60 mg/dL - Negative Risk Performed By: #### 2 4331-1, THYR, CBCA, CMP, 07053-6 #### [facility] ([id number]) [address] [place] [address] Cholesterol in LDL [Mass/Vol] 124 mg/dL Normal <130 [facility] Comment on above: Result Comment: LDL <100 mg/dL - Desirable LDL >160 mg/dL - High Risk Performed By: #### 2 4331-1, THYR, CBCA, CMP, 82980-7 #### [facility] ([id number]) [address], [address] [place] [address] Cholesterol in VLDL [Mass/Vol] 64 mg/dL High 0-30 [facility] Comment on above: Performed By: #### 2 4331-1, THYR, CBCA, CMP, 45857-0 #### [facility] ([id number]) [address], [facility] [address] [place] [address] CHOLESTEROL:HDL 4.9 Normal 1.0-5.0 [facility] Comment on above: Performed By: #### 2 4331-1, THYR, CBCA, CMP, 89863-3 #### [facility] ([id number]) [address], [address] [place] [address] Triglyceride [Mass/Vol] 318 mg/dL High 27-150 [facility] Comment on above: Performed By: #### 2 4331-1, THYR, CBCA, CMP, 73621-3 #### [facility] ([id number]) [address], [address] [place] [address] THYROID PROFILEon 11-30-2023 Free T4 [Mass/Vol] 0.62 ng/dL Normal 0.61-1.60 [facility] Comment on above: Performed By: #### 2 4331-1, THYR, CBCA, CMP, 30171-9 #### [facility] ([id number]) [address] [address] [place] [address] TSH 0.97 uIU/mL Normal 0.49-4.67 [facility] Comment on above: Performed By: #### 2 4331-1, THYR, CBCA, CMP, 40725-6 #### [facility] ([id number]) [address] [address] [place] [address] Vitamin D+Metabolites [Mass/ Vol]on 11-30-2023 VITAMIN D 25 HYD TOT 25.5 ng/mL Low 30-100 [facility] Comment on above: Result Comment: Vitamin D status 25 [place] Vitamin D Deficiency <20 ng/mL Insufficiency 20-29 ng/mL Sufficiency 30-100 ng/mL Toxicity >100 ng/mL NOTE: A pediatric reference range has not been established by the investigator narcotics of this kit. The [place] [employer] recommends a Vitamin D level of = or >20ng/mL in infants and children. Performed By: #### 2 4331-1, THYR, CBCA, CMP, 53626-5 #### [facility] ([id number]) [address] [place] [address], [address] [place] [address] Covid-19 PCR (CVDTBH)on 09-11 SARS-CoV-2 (COVID-19) RNA EMGAN+probe Ql (Unsp spec) Not detected Normal NOT DETECTED [facility] Comment on above: Result Comment: This test is not yet approved or cleared by the [place] FDA. When there are no FDA-approved or cleared tests available, and other criteria are met, FDA can make tests available under an emergency access mechanism called an Emergency Use Authorization (EUA). The EUA for this test is supported by the [place] of Health and Human Service's (HHS's) declaration [...] SARS-CoV-2. Performed By: #### C VDTBH #### [facility] [address] [place] [address] Dr. Adis Warren Covid-19 PCR (CVDTBH)on 09-11 SARS-CoV-2 (COVID-19) RNA MEGAN+probe Ql (Unsp spec) Not detected Normal NOT DETECTED [facility] Comment on above: Result Comment: This test is not yet approved or cleared by the [place] FDA. When there are no FDA-approved or cleared tests available, and other criteria are met, FDA can make tests available under an emergency access mechanism called an Emergency Use Authorization (EUA). The EUA for this test is supported by the [place] of Health and Human Service's (HHS's) declaration [...] consistent with SARS-CoV-2. Performed By: #### C [facility] #### [facility] [address] [place] [address] Dr. Adis Warren OBSOLETEon 07-04-2021 OBSOLETE Refill (ELLIWIL) MARITA MESSINA ([id number]) 1985 F Date Time Provider Department 07/04/21 [...] Encounter Status:Closed by RAYMOND MEDINA on 07/05/21 [facility] OBSOLETEon 05-27-2021 OBSOLETE Refill ([facility]) MAYURI,MARITA B ([id number]) 1985 F Date Time Provider Department 05/27/21 RAYMOND MEDINA [facility] During your visit today, we recorded the following information about you: Ashtyn Kumarmasha Bazzi 05/28/2021 8:05 AM Signed Please see pended medication Pharmacy linked. Last ordered 01/21/2020. Ashtyn Kumarmasha Bazzi Allergies As of Date: 05/27/2021 (No Known [...] Encounter Status:Closed by RAYMOND MEDINA on 05/30/21 [facility] OBSOLETEon 04-26-2021 OBSOLETE Refill ([facility]) MARITA MESSINA ([id number]) 1985 F Date Time Provider Department 04/26/21 RAYMOND MEDINA [facility] During your visit today, we [...] Status:Closed by RAYMOND MEDINA on 04/27/21 Normal [facility] Coding Summary.on 05-31-2019 Coding Summary. CODING DATE: 05/31/2019 FINAL [facility] STATUS: Home (Routine [place]) PAYOR: Medicaid [facility] DESCRIPTION 0390 LEVEL I PATHOLOGY ADMIT DX: REASON FOR VISIT DX: R87.610 Atypical squamous cells of undetermined significance on cytologic smear of cervix (ASC-US) FINAL DX: PRINCIPAL: N87.9 Dysplasia of cervix uteri, unspecified SECONDARY: R87.810 Cervical high risk human papillomavirus (HPV) DNA test positive PYMT PROC [facility] STAT DESCRIPTION DOCTOR NAME DATE NOTE: The code number assigned matches the documented diagnosis and / or procedure in the patient's chart. However, the narrative phrase printed from the coding software may appear abbreviated, or result in slightly different terminology. Coded By: Prachi Andres Date Saved: 05/31/2019 06:25 am Normal [facility] Gynecology Office/Clinic Not freddie 05-20-2019 Gynecology [...] and next steps Ordered: Colposcopy with biopsy [id number] Pathology Tissue Exam Pathology Tissue Exam Follow-up With When Contact Information She BINGHAM CNP In 1 year [email or web address] Additional Instructions: She BINGHAM CNP Only if needed [email or web address] Additional Instructions: Problem List/Past Medical History Ongoing [...] Father and Grandparent. Hyperlipidemia: Father. Normal [facility] Comment on above: Result Comment: Elec tronically Signed By: She BINGHAM CNP.jeanie\Date and Time Signed: 05/20/19 14:48 EDT Coding Summary.on 05-06-2019 Coding Summary. CODING DATE: 05/06/2019 FINAL [facility] STATUS: Home ([facility]) PAYOR: Medicaid [facility] DESCRIPTION 0392 PAP SMEARS [...] Date Saved: 05/06/2019 09:14 am Normal [facility] PAP [id number] 05-05-2019 Cytology report Cyto stain Doc (Cvx/Vag) Note Abnormal [facility] Comment on above: Result Comment: TEST S RESULT FLAG UNITS REF RANGE LAB Clinician Provided Cytology Information Source.............Cervix Other..............IUD No. of containers..01 ThinPrep Vial DIAGNOSIS: [A] 01 EPITHELIAL CELL ABNORMALITY. ATYPICAL SQUAMOUS CELLS OF UNDETERMINED SIGNIFICANCE (ASC-US). 01 Satisfactory for evaluation. Endocervical and/or squamous metaplastic cells (endocervical component) are present. 01 Maricarmen Stovall, Beverage Inspection Machine Tender (ASCP) 01 Jennifer Lopes MD, Pathologist 01 [...] High <-Panic Low,>-Panic High,A-Abnormal,AA-Critical Abnormal Performed at: [facility] [address] [place] [address] oSraya Cabrera MD, Performed By: #### 1 [id number] #### [facility] [address] [place] [address] HPV 16+18+31+33+35+39+45 +51+52+56+58+59+68 DNA Probe+sig amp Ql (Cvx) Positive Abnormal Negative [facility] Comment on above: Result Comment: This high-risk HPV test detects thirteen high-risk types (16/18/31/33/35/39/45/51/52/56/58/59/68) without differentiation. Performed at: [address], [place] [id number] MD Rick Lira Performed at: = [address], [place] [id number] MD Rick Lira Performed By: #### 1 [id number], [id number] #### [facility] [address] [place] [address] Physician Jennifer Crabtree 019 Pathologist review Noe (Unsp spec) [Interp] Note [facility] Comment on above: Result Comment: TEST S RESULT FLAG UNITS REF RANGE LAB Physician Read Pap Note 01 Performed FLAG LEGEND: L-Low Normal,H-High Normal,LL-Alert Low,HH-Alert High <-Panic Low,>-Panic High,A-Abnormal,AA-Critical Abnormal Performed at: 01 [facility] [place] [address] [place] [address] Soraya Cabrera MD, Performed at: [facility] [place] [address] [place] [id number] MD Rick Lira Performed By: #### 1 [id number], [id number] #### [facility] [address] [place] [address] Gynecology Office/Clinic Not freddie 04-29-2019 Gynecology Office/Clinic [...] results Ordered: Office Visit Level 3 Est 35099 PAP [id number] w/HPV HR US Pelvis Non-OB Complete 2. 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 Hyperlipidemia: Father. Normal [facility] Comment on above: Result Comment: Elec tronically Signed By: She BINGHAM CNP.jeanie\Date and Time Signed: 04/29/19 11:36 EDT PAP [id number] 04-29-2019 Gynecological Body Site CERVIX Normal [facility] Comment on above: Performed By: #### 1 [id number], [id number] #### [facility] [address] [place] [address] Other Patient Information IUD Normal [facility] Comment on above: Performed By: #### 1 [id number] #### [facility] [address] [place] [address] Vital Signs Date Time Vital Sign Value Performing Clinician Facility 10-27-2024 16:10-0500 Body height 157.5 cm Sherie Maria DPM Work Phone: [facility] 10-27-2024 16:10-0500 Body mass index (BMI) [Ratio] 40.42 kg/m2 Sherie Crow DPM Work Phone: [facility] 10-27-2024 16:10-0500 Body weight 100.25 kg Sherie Maria DPM Work Phone: [facility] 09-15-2024 11:03-0500 Body height 157.5 cm Dorcas Peralta ROVING DEPARTMENT SUPERVISOR Work Phone: [facility] 09-15-2024 11:03-0500 Body mass index (BMI) [Ratio] 40.57 kg/m2 Dorcas Peralta ROVING DEPARTMENT SUPERVISOR Work Phone: [facility] 09-15-2024 11:03-0500 Body weight 100.61 kg Dorcas Peralta ROVING DEPARTMENT SUPERVISOR Work Phone: [facility] 09-15-2024 11:03-0500 Diastolic blood pressure 80 mm[Hg] Dorcas Peralta ROVING DEPARTMENT SUPERVISOR Work Phone: [facility] 09-15-2024 11:03-0500 Heart rate 104 /min Dorcas Peralta ROVING DEPARTMENT SUPERVISOR Work Phone: [facility] 09-15-2024 11:03-0500 SaO2% (BldA) [Mass fraction] 97 % Dorcas Peralta ROVING DEPARTMENT SUPERVISOR Work Phone: [facility] 09-15-2024 11:03-0500 Systolic blood pressure 116 mm[Hg] Dorcas Peralta ROVING DEPARTMENT SUPERVISOR Work Phone: [facility] 08-04-2024 15:35-0500 Body height 157.5 cm Sherie Crow DPM Work Phone: [facility] 08-04-2024 15:35-0500 Body mass index (BMI) [Ratio] 40.6 kg/m2 Sherie Maria DPM Work Phone: [facility] 08-04-2024 15:35-0500 Body weight 100.7 kg Sherie Maria DPM Work Phone: [facility] 06-16-2024 10:54-0400 Body height 157.5 cm Dorcas Peralta ROVING DEPARTMENT SUPERVISOR Work Phone: [facility] 06-16-2024 10:54-0400 Body mass index (BMI) [Ratio] 39.36 kg/m2 Dorcas Peralta ROVING DEPARTMENT SUPERVISOR Work Phone: [facility] 06-16-2024 10:54-0400 Body weight 97.61 kg Dorcas Peralta ROVING DEPARTMENT SUPERVISOR Work Phone: [facility] 06-16-2024 10:54-0400 Diastolic blood pressure 76 mm[Hg] Dorcas Peralta ROVING DEPARTMENT SUPERVISOR Work Phone: [facility] 06-16-2024 10:54-0400 Heart rate 98 /min Dorcas Peralta ROVING DEPARTMENT SUPERVISOR Work Phone: [facility] 06-16-2024 10:54-0400 SaO2% (BldA) [Mass fraction] 97 % Dorcas Peralta ROVING DEPARTMENT SUPERVISOR Work Phone: [facility] 06-16-2024 10:54-0400 Systolic blood pressure 120 mm[Hg] Dorcas Peralta ROVING DEPARTMENT SUPERVISOR Work Phone: [facility] 05-23-2024 10:24-0400 Body mass index (BMI) [Ratio] 38.99 kg/m2 Dorcas Peralta ROVING DEPARTMENT SUPERVISOR Work Phone: [facility] 05-23-2024 10:24-0400 Body weight 96.71 kg Dorcas Peralta ROVING DEPARTMENT SUPERVISOR Work Phone: [facility] 05-23-2024 10:24-0400 Diastolic blood pressure 72 mm[Hg] Dorcas Peralta ROVING DEPARTMENT SUPERVISOR Work Phone: [facility] 05-23-2024 10:24-0400 Heart rate 93 /min Dorcas Peralta ROVING DEPARTMENT SUPERVISOR Work Phone: [facility] 05-23-2024 10:24-0400 SaO2% (BldA) [Mass fraction] 99 % Dorcas Peralta ROVING DEPARTMENT SUPERVISOR Work Phone: [facility] 05-23-2024 10:24-0400 Systolic blood pressure 122 mm[Hg] Dorcas Peralta ROVING DEPARTMENT SUPERVISOR Work Phone: [facility] 05-14-2024 11:30-0400 Body height 157.5 cm Dorcas Peralta ROVING DEPARTMENT SUPERVISOR Work Phone: [facility] 05-14-2024 11:30-0400 Body mass index (BMI) [Ratio] 39.03 kg/m2 Dorcas Peralta ROVING DEPARTMENT SUPERVISOR Work Phone: [facility] 05-14-2024 11:30-0400 Body weight 96.8 kg Dorcas Peralta ROVING DEPARTMENT SUPERVISOR Work Phone: [facility] 05-14-2024 11:30-0400 Diastolic blood pressure 68 mm[Hg] Dorcas Prealta ROVING DEPARTMENT SUPERVISOR Work Phone: [facility] 05-14-2024 11:30-0400 Heart rate 109 /min Dorcas Peralta ROVING DEPARTMENT SUPERVISOR Work Phone: [facility] 05-14-2024 11:30-0400 SaO2% (BldA) [Mass fraction] 98 % Dorcas Peralta ROVING DEPARTMENT SUPERVISOR Work Phone: [facility] 05-14-2024 11:30-0400 Systolic blood pressure 110 mm[Hg] Dorcas Peralta ROVING DEPARTMENT SUPERVISOR Work Phone: [facility] 05-05-2024 10:18-0400 Body height 157.5 cm Jurgen English MD Work Phone: [facility] 05-05-2024 10:18-0400 Body mass index (BMI) [Ratio] 38.67 kg/m2 Jurgen English MD Work Phone: [facility] 05-05-2024 10:18-0400 Body weight 95.89 kg Jurgen English MD Work Phone: [facility] 05-05-2024 10:18-0400 Diastolic blood pressure 78 mm[Hg] Jurgen English MD Work Phone: [facility] 05-05-2024 10:18-0400 Heart rate 99 /min Jurgen English MD Work Phone: [facility] 05-05-2024 10:18-0400 SaO2% (BldA) [Mass fraction] 99 % Jurgen English MD Work Phone: [facility] 05-05-2024 10:18-0400 Systolic blood pressure 118 mm[Hg] Jurgen English MD Work Phone: [facility] 11-10-2019 14:27-0500 BMI (Body Mass Index) 35.43 kg/m2 [place], [place] 11-10-2019 14:27-0500 Body Temperature 97.59 [degF] [place], [place] 11-10-2019 14:27-0500 Body weight 90.72 kg [place], [place] 11-10-2019 14:27-0500 BP Diastolic 65 mm[Hg] [place] 11-10-2019 14:27-0500 BP Systolic 102 mm[Hg] [place] 11-10-2019 14:27-0500 Height 160 cm [place] 11-10-2019 14:27-0500 Pulse Oximetry 99 % [place], [place] Encounters Encounter Date Encounter Type Care Provider Facility Start: 11-24-2024 End: 11-24-2024 Orders Only Celeste Dhaliwal WHARF HAND-HISTORIOGRAPHER Work Phone: [facility] Start: 11-03-2024 End: 11-03-2024 Refill Nehal Alvarado ATOMIC SPECTROSCOPIST Work Phone: [facility] Comment on above: Obstructive sleep ap deann syndrome Start: 10-27-2024 End: 10-27-2024 Office outpatient visit 15 minutes Sherie Maria DPM Work Phone: [facility] Comment on above: Dermatophytosis of n ail (Primary Dx); Dystrophic nail; Pain around toenail, right foot; Pain around toenail, left foot Start: 10-27-2024 End: 10-27-2024 ambulatory SHERIE MARIA Not Available Start: 10-27-2024 End: 10-27-2024 Bamboo flowsheet Sherie Maria DPM Work Phone: [facility] Start: 10-27-2024 End: 10-27-2024 Bamboo flowsheet Sherie Maria DPM Work Phone: [facility] Start: 10-13-2024 End: 10-13-2024 ambulatory Sana Radford MD Facility:[facility] Start: 09-22-2024 End: 09-22-2024 Orders Only Dorcas Peralta ROVING DEPARTMENT SUPERVISOR Work Phone: [facility] Comment on above: Obstructive sleep ap deann syndrome Start: 09-20-2024 End: 09-22-2024 Refill Jo-Ann Gee MD Work Phone: [facility] Comment on above: Tremor (Primary Dx) Start: 09-15-2024 End: 09-15-2024 Bamboo flowsheet Dorcas Peralta ROVING DEPARTMENT SUPERVISOR Work Phone: [facility] Start: 09-15-2024 End: 09-15-2024 Bamboo flowsheet Dorcas Peralta ROVING DEPARTMENT SUPERVISOR Work Phone: [facility] Start: 09-15-2024 End: 09-15-2024 ambulatory DORCAS PERALTA Not Available Start: 09-15-2024 End: 09-15-2024 Office outpatient visit 25 minutes Dorcas Peralta ROVING DEPARTMENT SUPERVISOR Work Phone: [facility] Comment on above: Morbid (severe) obes ity due to excess calories (CMS/HCC) (Primary Dx); BOGDAN (obstructive sleep apnea); Hepatic steatosis; Mixed hyperlipidemia (CMS/HCC); Elevated liver enzymes Start: 09-01-2024 End: 09-01-2024 ambulatory Sana Radford MD Facility:[facility] Start: 08-13-2024 End: 08-13-2024 ambulatory Dorcas Thomas PA-C Facility:[facility] Start: 08-04-2024 End: 08-04-2024 Office outpatient new [...] [facility] Start: 07-04-2024 End: 07-04-2024 ambulatory [facility] Start: 06-16-2024 End: 06-16-2024 Bamboo flowsheet Dorcas Peralta ROVING DEPARTMENT SUPERVISOR Work Phone: [facility] Start: 06-16-2024 End: 06-16-2024 Bamboo flowsheet Dorcas Peralta ROVING DEPARTMENT SUPERVISOR Work Phone: [facility] Start: 06-16-2024 End: 06-16-2024 Office outpatient visit 25 minutes Dorcas Peralta ROVING DEPARTMENT SUPERVISOR Work Phone: [facility] Comment on above: Morbid (severe) obes ity due to excess calories (CMS/HCC) (Primary Dx); Bipolar disorder in full remission, most recent episode unspecified type (CMS/HCC); Mixed dyslipidemia (CMS/HCC) Start: 06-16-2024 End: 06-16-2024 ambulatory DORCAS PERALTA Not Available Start: 06-09-2024 End: 06-10-2024 Telephone encounter Marita Richardson RN [facility] Comment on above: Cholesterol labs Start: 05-26-2024 End: 05-29-2024 Refill Nehal Alvarado ATOMIC SPECTROSCOPIST Work Phone: [facility] Comment on above: Gastroesophageal ref lux disease without esophagitis Rash (Primary Dx); Obesity, Class II, BMI 35-39.9 Start: 05-23-2024 End: 05-23-2024 Office outpatient visit 25 minutes Dorcas Peralta ROVING DEPARTMENT SUPERVISOR Work Phone: [facility] Comment on above: Folliculitis (Primar y Dx); Obesity, Class II, BMI 35-39.9; Morbid (severe) obesity due to excess calories ([facility]); Gastro-esophageal reflux disease without esophagitis; Body mass index (BMI) 39.0-39.9, adult; Bipolar disorder, unspecified ([facility]) Start: 05-23-2024 End: 05-23-2024 ambulatory DORCAS PERALTA Not Available Start: 05-22-2024 End: 05-22-2024 Orders Only Dorcas Peralta ROVING DEPARTMENT SUPERVISOR Work Phone: [facility] Comment on above: Dermatitis (Primary Dx) Start: 05-19-2024 End: 05-19-2024 ambulatory [facility] Start: 05-19-2024 End: 05-19-2024 [facility] Start: 05-14-2024 End: 05-14-2024 Bamboo flowsheet Dorcas Peralta ROVING DEPARTMENT SUPERVISOR Work Phone: [facility] Start: 05-14-2024 End: 05-14-2024 Bamboo flowsheet Dorcas Peralta ROVING DEPARTMENT SUPERVISOR Work Phone: [facility] Start: 05-14-2024 End: 05-14-2024 Office outpatient new 45 minutes Dorcas Peralta NP Work Phone: [facility] Comment on above: Obesity, Class II, B GA 35-39.9 (Primary Dx); Encounter to establish care Start: 05-14-2024 End: 05-14-2024 ambulatory DORCAS PERALTA Not Available Start: 05-05-2024 End: 05-05-2024 Office outpatient new 45 minutes Luiza Webb DO Work Phone: [facility] Comment on above: Hypertriglyceridemia (Primary Dx); Sinus tachycardia; Chest pain, unspecified type; Palpitation; Vapes nicotine containing substance Start: 05-05-2024 End: 05-05-2024 ambulatory [facility] Start: 05-02-2024 End: 05-02-2024 Chart abstracting Scanning Provider External [facility] Start: 03-24-2024 End: 03-24-2024 ambulatory CAITLYN Griffiths [facility] Start: 03-23-2024 End: 03-24-2024 Emergency department patient visit LUIZA Ahumada [facility] Start: 03-23-2024 End: 03-23-2024 Emergency department patient visit CAITLYN Griffiths [facility] Start: 03-10-2024 End: 04-10-2024 ambulatory HUMBOLDT Ginger [facility] Start: 03-08-2024 End: 03-08-2024 Emergency department patient visit CAITLYN Griffiths [facility] Start: 03-03-2024 End: 03-03-2024 ambulatory Caitlyn Sparrow MD Facility:[facility] Start: 02-29-2024 End: 02-29-2024 ambulatory CAITLYN Griffiths [facility] Start: 02-18-2024 End: 02-18-2024 ambulatory Caitlyn Sparrow MD Facility:[facility] Start: 02-11-2024 End: 03-10-2024 ambulatory [facility] Start: 01-28-2024 End: 01-28-2024 ambulatory Caitlyn Sparrow MD Facility:[facility] Start: 01-23-2024 End: 02-09-2024 ambulatory [facility] Start: 11-30-2023 End: 11-30-2023 ambulatory [facility] Start: 11-30-2023 Encounter for genera l adult medical examination without abnormal findings CAITLYN SPARROW [facility] Start: 08-09-2023 Refill Raymond Pierre ph, [...] 02-23-2022 End: 02-23-2022 ambulatory Karel Elaine Other [facility] Other Start: 02-23-2022 Telephone encounter Krael Elaine [facility] Start: 01-09-2022 Refill Raymond Pierre ph, MD Work Phone: Neurology Comment on above: Refill Request Start: 01-04-2022 End: 01-04-2022 ambulatory Karel Elaine Other [facility] Other Start: 01-04-2022 Telephone encounter Karel Elaine [facility] Start: 12-12-2021 End: 12-12-2021 ambulatory Karel Elaine Other [facility] Other Start: 12-12-2021 Telephone encounter Karel Elaine [facility] Start: 11-30-2021 End: 12-01-[address] MUNIRA DEAL Facility:[facility] Start: 11-16-2021 End: 11-16-2021 ambulatory Karel Elaine Other [facility] Other Start: 11-16-2021 Telephone encounter Karel Elaine [facility] Start: 10-11-2021 Encounter for prepro cedural laboratory examination DR MUNIRA DEAL [facility] Start: 10-11-2021 End: 10-11-[address] [...] 08-03-2021 End: 08-03-2021 ambulatory Karel Elaine Other [facility] Other Start: 08-03-2021 Telephone encounter Karel Elaine [facility] Start: 07-28-2021 End: 07-28-2021 ambulatory Karel Elaine Other [facility] Other Start: 07-28-2021 Telephone encounter Karel Elaine [facility] Start: 11-10-2019 End: 11-11-2019 Patient encounter procedure BRADLEY SIMMONS [facility] Start: 11-10-2019 End: 11-10-2019 Subsequent hospital visit by physician Bradley Simmons Work Phone: [facility] Comment on above: Arrived Procedures Date Procedure Procedure Detail Performing Clinician Start: 10-03-2021 Adult depression screening assessment Raymond Medina MD Work Phone: Plan of Treatment Date Care Activity Detail Author Start: 2036 Shingles Vaccine (1 of 2) Shingles Vaccine (1 of 2) [facility] [place] Start: 06-10-2025 Influenza vaccination Influenza Vaccine (#1) [facility] Comment on above: Postponed from 05/11/2024 (Patient Refus ed) Start: 05-19-2025 Adult BMI Screening Adult BMI Screening [facility] Start: 05-19-2025 Tobacco Screening Tobacco Screening [facility] Start: 05-05-2025 Adult BMI Screening Adult BMI Screening [facility] Start: 05-05-2025 Tobacco Screening Tobacco Screening [facility] Start: 03-23-2025 Adult BMI Screening Adult BMI Screening [facility] Start: 03-23-2025 Tobacco Screening Tobacco Screening [facility] Start: 01-26-2025 End: 01-26-2025 Patient encounter procedure 01/26/2025 4:00 PM EDT Office Visit [facility] [address] [place] [id number] Sherie Maria DPM [address] [place] [address] [facility] Start: 12-15-2024 End: 12-15-2024 Patient encounter procedure 12/15/2024 11:00 AM EDT Office Visit [facility] [address] [place] [phone] Dorcas Peralta NP [address] [place] [address] [facility] Start: 11-08-2024 Medicare Annual Wellness (AWV) Medicare Annual Wellness (AWV) [facility] Start: 10-27-2024 End: 10-27-2024 [facility] Comment on above: Arrived Start: 09-15-2024 End: 09-15-2024 Patient encounter procedure 09/15/2024 11:00 AM EST Office Visit [facility] [address] [place] [phone] Dorcas Peralta, ROVING DEPARTMENT SUPERVISOR [address] [place] [address] [facility] Start: 09-08-2024 End: 06-09-2025 Alanine aminotransferase [Enzymatic activity/volume] in Serum or Plasma ALT Lab Routine Medication monitoring encounter Other hyperlipidemia Elevated triglycerides with high cholesterol Elevated LDL cholesterol level Severe obesity (BMI 35.0-39.9) with comorbidity (CMS-HCC) Other fatigue Expected: 09/08/2024 (Approximate), Expires: 06/09/2025 [facility] Comment on above: Expected: 09/08/2024 (Approximate), Expi res: 06/09/2025 Start: 09-08-2024 End: 06-09-2025 Aspartate aminotransferase [Enzymatic activity/volume] in Serum or Plasma AST Lab Routine Medication monitoring encounter Other hyperlipidemia Elevated triglycerides with high cholesterol Elevated LDL cholesterol level Severe obesity (BMI 35.0-39.9) with comorbidity (CMS-HCC) Other fatigue Expected: 09/08/2024 (Approximate), Expires: 06/09/2025 [employer] Comment on above: Expected: 09/08/2024 (Approximate), Expi res: 06/09/2025 Start: 09-08-2024 End: 06-09-2025 Cholesterol in LDL [Mass/volume] in Serum or Plasma LDL cholesterol, direct Lab Routine Medication monitoring encounter Other hyperlipidemia Elevated triglycerides with high cholesterol Elevated LDL cholesterol level Severe obesity (BMI 35.0-39.9) with comorbidity (CMS-HCC) Other fatigue Expected: 09/08/2024 (Approximate), Expires: 06/09/2025 [employer] Work Phone: Comment on above: Expected: 09/08/2024 (Approximate), Expi res: 06/09/2025 Start: 09-08-2024 End: 06-09-2025 Triglyceride [Mass/volume] in Serum or Plasma Triglycerides Lab Routine Medication monitoring encounter Other hyperlipidemia Elevated triglycerides with high cholesterol Elevated LDL cholesterol level Severe obesity (BMI 35.0-39.9) with comorbidity (CMS-HCC) Other fatigue Expected: 09/08/2024 (Approximate), Expires: 06/09/2025 [employer] Comment on above: Expected: 09/08/2024 (Approximate), Expi res: 06/09/2025 Start: 08-04-2024 End: 08-04-2024 Patient encounter procedure 08/04/2024 3:30 PM EST Office Visit [facility] [address] [place] [phone] Sherie Maria DPM [address] [place] [address] Arrived [facility] Comment on above: Arrived Start: 06-16-2024 End: 06-16-2024 Patient encounter procedure [facility] Comment on above: Arrived Start: 05-14-2024 End: 05-14-2024 Patient encounter procedure 05/14/2024 11:30 AM EDT Office Visit [facility] [address] [facility] [place] [id number] Dorcas Peralta NP [address] [place] [address] Arrived [facility] Comment on above: Arrived Start: 05-11-2024 COVID-19 Vaccine ( season) COVID-19 Vaccine ( season) [facility] Start: 05-11-2024 COVID-19 Vaccine ( season) COVID-19 Vaccine ( season) [facility] Start: 05-11-2024 Influenza vaccination [facility] Start: 05-05-2024 End: 05-05-2025 Echo complete W/O contrast Echo complete W/O contrast Echocardiography Routine Chest pain, unspecified type Expected: 05/05/2024, Expires: 05/05/2025 [facility] Comment on above: Expected: 05/05/2024, Expires: Start: 05-05-2024 End: 05-05-2025 Exercise stress test study Stress test (exercise only) [facility] Routine Chest pain, unspecified type Expected: 05/05/2024, Expires: 05/05/2025 [facility] Comment on above: Expected: 05/05/2024, Expires: Start: 05-05-2024 End: 05-05-2024 Patient encounter procedure 05/05/2024 10:30 AM EDT Office Visit [facility] [address] [place] [id number] Luiza Webb, DO [address] [place] [address] Jurgen English MD [address] [place] [address] [facility] Start: 05-11-2023 COVID-19 Vaccine ( season) COVID-19 Vaccine ( season) [facility] Start: 05-11-2023 Influenza vaccination [facility] Start: 10-03-2022 Adult depression screening assessment DEPRESSION SCREENING [facility] Start: 09-10-2022 DEPRESSION ASSESSMENT DEPRESSION ASSESSMENT [facility] Start: 05-11-2022 Influenza vaccination [facility] Start: 03-29-2020 End: 03-29-2020 Appointment 03/29/2020 Appointment General Surgery Bradley Simmons MD [address] [place] [address] [facility] Start: 05-11-2019 Influenza vaccination Flu vaccine (#1) [place], [place] Start: 2016 HPV TESTING HPV TESTING [facility] Start: 2016 Screening for malignant neoplasm of cervix [facility] Start: 2007 Cervical cancer screen [facility] Start[facility] 2007 PAP TESTING PAP TESTING [facility] Start: 2007 Screening for malignant neoplasm of cervix [facility] Start: 2005 Urine microalbumin profile DTAP,TDAP,TD (1 - Tdap) [facility] Start: 2004 Adult BMI Follow Up Plan Adult BMI Follow Up Plan [facility] Start: 2004 HEPATITIS C SCREENING HEPATITIS C SCREENING [facility] Start: 2004 Hepatitis C screening Hepatitis C Screening [facility] Start: 2004 HIV SCREENING HIV SCREENING [facility] Start: 2004 HIV screening HIV Screening [facility] Start: 2001 HIV screen HIV screen [place], [place] Start: 1998 Depression Screening Depression Screening [facility] Start: 12-25-1997 DTaP,Tdap and Td Vaccines (6 - Tdap) DTaP,Tdap and Td Vaccines (6 - Tdap) [facility] Start: 12-25-1997 Urine microalbumin profile DTaP,Tdap,Td Vaccine (6 - Tdap) [facility] Start: 1997 DTaP/Tdap/Td vaccine (1 - Tdap) DTaP/Tdap/Td vaccine (1 - Tdap) [place] Start: 1991 COVID-19 VACCINE (1) COVID-19 VACCINE (1) [facility] Start: 1987 Varicella vaccine (1 of 2 - 2-dose childhood series) Varicella vaccine (1 of 2 - 2-dose childhood series) [place] Start: 01-14-1987 COVID-19 VACCINE (#1) COVID-19 VACCINE (#1) [facility] Start: 1986 HEPATITIS B (1 of 3 - 3-dose series) HEPATITIS B (1 of 3 - 3-dose series) [facility] Start: 1986 Medicare Annual Wellness (AWV) Medicare Annual Wellness (AWV) [facility] Start: 1986 Tobacco Counseling Tobacco Counseling [facility] End: 05-05-2025 Hepatic function 2000 panel - Serum or Plasma Hepatic function panel Lab Routine Hypertriglyceridemia 1 Occurrences starting 05/05/2024 until 05/05/2025 [facility] [employer] [facility] Comment on above: 1 Occurrences starting 05/05/2024 until 05/05/2025 End: 05-05-2025 Lipid 1996 panel - Serum or Plasma Lipid profile Lab Routine Hypertriglyceridemia 1 Occurrences starting 05/05/2024 until 05/05/2025 [employer] Work Phone: Comment on above: 1 Occurrences starting 05/05/2024 until 05/05/2025 Immunizations Immunization Date Immunization Notes Care Provider Fa reyna 05-15-2023 Influenza, injectabl e, Madin Elberta Canine Kidney, quadrivalent with preservative Dorcas Kampfer [employer] Work Phone: [facility] 05-15-2023 influenza virus vaccine, unspecified formulation Jurgen English MD Work Phone: [facility] 07-13-2022 Influenza, injectabl e, Madin Renetta Canine Kidney, preservative free, quadrivalent Dorcas Kampfer [employer] Work Phone: [facility] 09-13-2021 influenza, injectabl e, quadrivalent, preservative free Dorcas Kampfer [employer] Work Phone: [facility] 08-22-2019 influenza, injectabl e, quadrivalent, contains preservative Dorcas Kampfer [employer] Work Phone: [facility] 08-22-2019 influenza virus vaccine, unspecified formulation Raymond Medina MD Work Phone: [facility] 05-25-1998 hepatitis B vaccine, pediatric or pediatric/adolescent dosage Dorcas Kampfer [employer] Work Phone: [facility] 12-24-1997 hepatitis B vaccine, pediatric or pediatric/adolescent dosage Dorcas Kampfer [employer] Work Phone: [facility] 12-24-1997 TD(adult) unspecifie d formulation Dorcas Kampfer [employer] Work Phone: [facility] 11-19-1997 hepatitis B vaccine, pediatric or pediatric/adolescent dosage Dorcas Kampfer [employer] Work Phone: [facility] 11-19-1997 measles, mumps and rubella virus vaccine Dorcas Kampfer [employer] Work Phone: [facility] 10-26-1987 diphtheria, tetanus toxoids and pertussis vaccine Dorcas Kampfer [employer] Work Phone: [facility] 10-26-1987 measles, mumps and rubella virus vaccine Dorcas Kampfer [employer] Work Phone: [facility] 10-26-1987 trivalent poliovirus vaccine, live, oral Dorcasdwight Cummingspfer [employer] Work Phone: [facility] 02-17-1987 diphtheria, tetanus toxoids and pertussis vaccine Dorcas Cummingspfer [employer] Work Phone: [facility] 02-17-1987 trivalent poliovirus vaccine, live, oral Dorcas Cummingspfer [employer] Work Phone: [facility] 1986 diphtheria, tetanus toxoids and pertussis vaccine Dorcas Kampfer [employer] Work Phone: [facility] 1986 trivalent poliovirus vaccine, live, oral Dorcas Kampfer [employer] Work Phone: [facility] 1986 diphtheria, tetanus toxoids and pertussis vaccine Dorcas Kampfer [employer] Work Phone: [facility] 1986 trivalent poliovirus vaccine, live, oral Dorcas Kampfer [employer] Work Phone: [facility] Payers Date Payer Category Payer Medicare HMO [employer] MEDICARE [id number] 2024 Medicare [id number] 2024 Private Health Insurance 2019 Medicaid MEDICAID [facility] MEDICAID [id number] 2019-Present [phone] [address] [place] [address] Medicaid [id number] 2019 Medicaid [id number] 2019 Medicare MEDICARE MEDICAR E A AND B [id number] 2019-Present [phone] [place] [address] Medicare [id number] 2019 Medicare [id number] 2014 Medicaid MEDICAID [facility] DEPT OF [facility] xxxxxxxxxxxx 2014-Present [phone] [address] [place] [address] xxxxxxxxxxxx [id number] 2014 Medicare MEDICARE MEDICAR E PART A AND B xxxxxxxxxxx 2014-Present [phone] [place] [address] xxxxxxxxxxx [id number] .[id number] 1986 Unknown [id number] 2.16.840.1.530332.3.579.2 .177 1986 Unknown [id number] 2.16.840.1.514037.3.579.2 .593 1986 Unknown [id number] 2.16.840.1.974979.3.579.2 .593 1986 Unknown [id number] 2.16.840.1.022920.3.579.2 .593 1986 Unknown [id number] 2.16.840.1.517665.3.579.2 .593 1986 Unknown [id number] 2.16.840.1.027270.3.579.2 .593 1986 Unknown [id number] 2.16.840.1.298898.3.579.2 .593 1986 Unknown [id number] 2.16.840.1.754497.3.579.2 .593 1986 Unknown [id number] 2.16.840.1.648457.3.579.2 .593 1986 Unknown [id number] 2.16.840.1.171975.3.579.2 .593 1986 Unknown [id number] 2.16.840.1.996420.3.579.2 .196 1986 Unknown [id number] 2.16.840.1.608760.3.579.2 .196 1986 Unknown [id number] 2.16.840.1.296651.3.579.2 .196 1986 Unknown [id number] 2.16.840.1.811662.3.579.2 .196 1986 Unknown [id number] 2.16.840.1.691148.3.579.2 .196 1986 Unknown [id number] 2.16.840.1.994819.3.579.2 .196 1986 Unknown [id number] 2.16.840.1.988153.3.579.2 .196 1986 Unknown [id number] 2.16.840.1.964407.3.579.2 .1259 1986 Unknown [id number] 2.16.840.1.656541.3.579.2 .1259 1986 Unknown [id number] 2.16.840.1.680999.3.579.2 .1259 1986 Unknown [id number] 2.16.840.1.586137.3.579.2 .1259 1986 Unknown [id number] 2.16.840.1.060613.3.579.2 .1259 1986 Unknown [id number] 2.16.840.1.233030.3.579.2 .1259 1986 Unknown [id number] 2.16.840.1.104205.3.579.2 .1285 1986 Unknown [id number] 2.16.840.1.819227.3.579.2 .1285 1986 Unknown [id number] 2.16.840.1.361223.3.579.2 .1285 1986 Unknown [id number] 2.16.840.1.948508.3.579.2 .1285 1986 Unknown [id number] 2.16.840.1.370953.3.579.2 .1285 1986 Unknown [id number] 2.16.840.1.390592.3.579.2 .1285 1986 Unknown [id number] 2.16.840.1.260537.3.579.2 .1285 1986 Unknown [id number] 2.16.840.1.445747.3.579.2 .1285 1986 Unknown [id number] 2.16.840.1.500353.3.579.2 .1285 1986 Unknown [id number] 2.16.840.1.663846.3.579.2 .1285 1986 Unknown [id number] 2.16.840.1.716005.3.579.2 .1285 1986 Unknown [id number] 2.16.840.1.397276.3.579.2 .1285 1986 Unknown [id number] 2.16.840.1.404681.3.579.2 .1285 1986 Unknown [id number] 2.16.840.1.999915.3.579.2 .1285 1986 Unknown [id number] 2.16.840.1.394243.3.579.2 .1285 1986 Unknown [id number] 2.16.840.1.054141.3.579.2 .1286 1986 Unknown [id number] 2.16.840.1.980417.3.579.2 .1286 1986 Unknown [id number] 2.16.840.1.144112.3.579.2 .1286 1986 Unknown [id number] 2.16.840.1.930421.3.579.2 .1286 1986 Unknown [id number] 2.16.840.1.070404.3.579.2 .1286 1959 Medicaid [id number] 1958 Medicare [id number] Social History Date Type Detail Facility Start: 11-25-2018 End: 11-10-2019 Tobacco smoking status MOIS Never smoker [facility] Start: 11-10-2019 End: 05-19-2024 Alcohol intake Current drinker of alcohol (finding) [place] Start: 11-10-2019 Alcohol Comment [place], [place] Start: 1985 Sex Assigned At Not on file [place], [place] Start: 11-25-2018 End: 05-05-2024 Tobacco use and exposure Smokeless tobacco non-user [facility] Start: 11-25-2018 History SDOH Alcohol Comment [facility] Start: 04-21-2019 End: 10-21-2020 Sex Assigned At [facility] Start: 04-21-2019 End: 10-21-2020 History of Social function [facility] Adult Depression Screening Assessment 4 [facility] Start: 05-05-2024 End: 05-14-2024 Tobacco smoking status MOIS Smokes tobacco daily [facility] Start: 05-14-2024 Tobacco Comment Vapes daily [facility] Start: 05-14-2024 Alcohol Comment caffeine intake: 12 oz coffee daily [facility] Tobacco smoking stat [facility] Tobacco smoking consumption unknown [facility] Do you belong to any clubs or organizations such as roman catholic groups, unions, fraternal or athletic groups, or [...] [OSQ] Very much [facility] (I/We) worried whe er (my/our) food would run out before (I/we) got money to buy more. Never true [facility] History of tobacco use Tobacco U se Types Packs/Day Years Used Date Smoking Tobacco: Every Day Vaping/E-cigarettes Smokeless Tobacco: Never [facility] Start: 01-20-2022 Alcohol Comment socially [facility] Start: 04-15-2015 Sex Female (finding) [facility] Medical Equipment Procedure Code Equipment Code Equipment Origin al Text Equipment Identifier Dates Mesh Pco Vntrl P tch 8.6cm [facility] [id number] - Sn/A - [id number] Start: 04-01-2019 Clinical Notes 09-15-2021 to 10-27-2024 Sherie Maria DPM - 10/27/2024 4:15 PM ESTPatient InstructionsDorcas Peralta NP - 09/15/2024 11:00 AM Melodie Maria DPM - 08/04/2024 3:30 PM ESTPatient Instructions Note [...] (six) hours if needed, Disp: , Rfl: Croghan-3 Fatty Acids (FISH OIL OMEGA-3 PO), Take [...] Sherie Maria DPM documented in this encounter [facility] 10-27-2024 Instructions Sherie Mraia DPM - 10/27/2024 4:15 PM EST Topical care measures as noted documented in this encounter [facility] 09-15-2024 History of Present illness Narrative Images [...] have her cholesterol levels checked tomorrow. 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 She has not undergone any extensive workup for her liver, only lab tests. Her liver enzyme levels have shown variability in the past. She is uncertain if she has fatty liver disease. She has been prescribed a iraqi for a toenail fungus, which has proven [...] tablet 1 tablet, Every 6 hours PRN Croghan-3 Fatty Acids (FISH OIL OMEGA-3 PO) 2 [...] Morbid (severe) obesity due to excess calories ([facility]) - Tirzepatide (Mounjaro) 2.5 MG/0.5ML solution auto-injector; [...] agreeable to this. documented in this encounter [facility] 08-11-2024 Note Patient Education Ma theresa Name: Marita Messina Current Date: 08/11/2024 16:18:15 [facility] : 1985 The following sheet(s) are the Patient Education Leaflets for [facility] Breast Health: Breast Self-Awareness What is [...] breast self-exam (BSE). These experts include the [employer] and the [employer] [employer]st[employer]ians and Gynecologists. Some experts [...] This means they are not cancer. ? The [employer]. All rights reserved. This information is not [...] prevent urine, gas, or stool leakage. ? 5506-0116 [employer]. All rights reserved. This information is not intended as a substitute fo (more content not included)... [facility] 08-04-2024 History of Present illness Narrative Subjective Patient ID: Marita Messina is a 39 y.o. female who presents for Fungus (Pt is here today for fungal nails, first noticed about 1 yr ago. Also athlete's foot BL. She has tried OTC topical fungal iraqi, no change noted. /SS:8 ). HPI Initial [...] and not practical. Patient typically has toenail iraqi on a constant basis. Also complains of [...] (six) hours if needed, Disp: , Rfl: Croghan-3 Fatty Acids (FISH OIL OMEGA-3 PO), Take [...] most recent hepatic enzymes elevated (May 2024). [place] agreement to proceed with topical care measures: [...] Sherie Maria DPM documented in this encounter [facility] 08-04-2024 Instructions Sherie Maria DPM - 08/04/2024 3:30 PM EST As noted documented in this encounter [facility] 06-16-2024 History of Present illness Narrative [...] 1 tablet, Oral, Every 6 hours PRN Croghan-3 Fatty Acids (FISH OIL OMEGA-3 PO) 2 [...] PCAB accredited and rated highly by the [employer]. Prescription sent to pharmacy Bipolar disorder in full remission, most recent episode unspecified type (CMS/HCC) -Followed by psych Mixed dyslipidemia (CMS/HCC) -Followed by cardiology documented in this encounter [facility] 06-09-2024 Miscellaneous Notes Images from the original note were not included. Pt called back as she stated that received a msg from re: her recent cholesterol labs. Reviewed recent cholesterol labs and result notes/orders from [place] as charted below: Jennifer Zamora PharmD 06/09/2024 2:05 PM EDT Back to [facility] Ok per MS for pt to start repatha 140mg sc every 14 days and fish oil 2gm twice a day. Repeat direct LDL and Tgs, along with AST and ALT, in 3 mths. Tried to contact pt to discuss. AM for pt to return the call. Jurgen English MD 06/08/2024 3:34 PM EDT Reviewed. Agree to plan. Thanks! Jennifer Zamora, Cheryl 05/27/2024 11:43 AM EDT MS - please [...] verbalized understanding and was agreeable to MS's orders/'s recommendations. Pt requested that script for Repatha be sent to [facility] in [place] and stated that she will get the Fish Oil OTC. Above orders routed to the [facility] to sign and send.-SRS documented in this encounter [facility] 06-09-2024 Telephone encounter Note Images from the [...] 8:20 AM EDT MD Adam Cruz RN Ok Adam, can you please refer patient to lipid clinic for education and assistance managing hyperlipidemia. Thanks! Pt verbalized understanding and was agreeable to MS's orders/'s recommendations. Pt requested that script for Repatha be sent to [facility] in [place] and stated that she will get the Fish Oil OTC. Above orders routed to the [facility] to sign and send.-SRS [facility] 05-23-2024 History of Present illness [...] Morbid (severe) obesity due to excess calories ([facility]) Gastro-esophageal reflux disease without esophagitis Body mass index (BMI) 39.0-39.9, adult Bipolar disorder, unspecified ([facility]) documented in this encounter [facility] 05-22-2024 History of Present illness Narrative klo documented in this encounter [facility] 05-14-2024 History of Present illness Narrative Marita [...] to be refilled. documented in this encounter [facility] 05-05-2024 History of Present illness Narrative Marita [...] Chief Complaint Patient presents with New Patient [employer] [facility], SINUS TACHY, NO PREVIOUS CARDIO, [...] Obstructive sleep apnea hypopnea, mild Pulmonary embolism ([facility]) history of , approx 2013 Sleep apnea Visual impairment contacts, glasses No data recorded No data recorded No data recorded Past Surgical History: Procedure Laterality Date DENTAL SURGERY wisdom teeth HERNIA REPAIR HYSTERECTOMY PARTIAL LASER ABLATION CONDYLOMA CERVICAL / VULVAR REPAIR HERNIA INCISIONAL VENTRAL MESH N/A 04/01/2019 Performed by Luis A Gr DO at [facility] Family History Problem Relation Age [...] 1. Sinus tachycardia - [facility] [place], [place] 2. Chest pain, unspecified type - [facility] [place], [place] - Stress test (exercise only); Future - Echo complete W/O contrast; Future 3. Palpitation - [facility] [place], [place] 4. Hypertriglyceridemia - Lipid profile; Future [...] SPARROW MD Referring Physician: Caitlyn Sparrow MD [address] [place] [address] documented in this encounter [facility] 08-09-2023 Miscellaneous Notes Please see pended medication. Pharmacy linked. Last ordered 03/09/2023. Ashtyn Perez MA documented in this encounter [facility] 03-09-2023 Miscellaneous Notes Please see pended medication. Pharmacy linked. Last ordered 10/25/2022. Ashtyn Perez MA documented in this encounter [facility] 07-11-2022 Note CONSULTATION PROCEDURE DATE: 07/11/2022 [...] be followed up in the office. [facility] 07-11-2022 Note CONSULTATION CONSULTATION DATE: 07/11/2022 CHIEF COMPLAINT: Trapezius and upper back pain. HISTORY OF PRESENT ILLNESS: This is a 36-year-old female who is known to the Pain Clinic. The patient, in October of this year, had a rhizotomy radiofrequency ablation along her cervical spine. This has afforded the patient significant improvement. 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 CC: Caitlyn Sparrow M.D. [facility] 05-23-2022 Miscellaneous Notes Please see pended medication. Pharmacy linked. Last ordered 10/20/2021. Ashtyn Perez Ma documented in this encounter [facility] 03-08-2022 Note CONSULTATION CONSULTATION DATE: 03/08/2022 [...] Patient does agree with plan of care. [facility] Signed and Approved by: LUDA RODRIGUEZ . 03/09/2022 13:38:00 [facility] 01-09-2022 Miscellaneous Notes Please see pended medication. Pharmacy linked. Last ordered 07/05/2021. Ashtyn Perez Ma documented in this encounter [facility] 11-30-2021 Note CONSULTATION PAIN MANAGEMENT CONSULTATION [...] time, and patient agrees to this plan. [facility] Signed and Approved by: LUDA RODRIGUEZ . 12/01/2021 12:26:00 [facility] 09-15-2021 Note The [place], [place] NAME: MARITA MESSINA DATE OF : MEDICAL REC#: [id number] BOAT WORKER: [id number] ADMIT DATE: 09/15/2021 12:21:00 CRISIS MENTAL HEALTH THERAPIST DATE: 09/16/2021 11:00 DICTATING PHYSICIAN: LUDA RODRIGUEZ [...] Electronically Authenticated and Edited by: Luda Rodriguez [facility] on 09/25/2021 11:23 PM [facility] Signed and Approved by: LUDA RODRIGUEZ . 09/25/2021 23:23:00 [facility] Evaluation note Diagnosis Excessive physiologic tremor Essential and other specified forms of tremor [facility] Other Evaluation note* Diagnosis Daytime sleepiness Narcolepsy without cataplexy [facility] [place] [facility] Diagnosis Daytime sleepiness Narcolepsy without cataplexy [facility] Diagnosis Daytime sleepiness Narcolepsy without cataplexy [facility] Diagnosis Morbid (severe) obesity due [...] Bipolar disorder, unspecified documented in this encounter [facility]* Diagnosis Gastroesophageal reflux disease without esophagitis Esophageal reflux documented in this encounter [facility] HealthcareEvaluation note* Diagnosis Obesity, Class II, BMI 35-39.9- Primary Encounter to establish care documented in this encounter [facility] note* Diagnosis Rash- Primary Rash and other nonspecific skin eruption Obesity, Class II, BMI 35-39.9 documented in this encounter [facility] note* Diagnosis Morbid (severe) obesity due to excess calories (CMS/HCC)- Primary BOGDNA (obstructive sleep apnea) Obstructive sleep apnea (adult) (pediatric) Hepatic steatosis Other chronic nonalcoholic liver disease Mixed hyperlipidemia (CMS/HCC) Mixed hyperlipidemia Elevated liver enzymes Other nonspecific abnormal serum enzyme levels [facility] Diagnosis Obstructive sleep apnea syndrome Obstructive sleep apnea (adult) (pediatric) documented in this encounter [facility]Evaluation [facility]* Diagnosis Tremor- Primary Abnormal involuntary movements documented in this encounter [facility]* Diagnosis Hypertriglyceridemia- Primary Pure hyperglyceridemia Sinus tachycardia Other specified cardiac dysrhythmias Chest pain, unspecified type Palpitation Palpitations Vapes nicotine containing substance [facility] Medication monitoring encounter- Primary Encounter for therapeutic drug monitoring Other hyperlipidemia Elevated triglycerides with high cholesterol Mixed hyperlipidemia Elevated LDL cholesterol level Severe obesity (BMI 35.0-39.9) with comorbidity (CMS-HCC) Other fatigue [facility] Diagnosis Dermatophytosis of nail- Primary Dystrophic nail Other specified disease of nail Pain around toenail, right foot Pain around toenail, left foot documented in this encounter [facility]* Diagnosis Obstructive sleep apnea syndrome Obstructive sleep apnea (adult) (pediatric) documented in this encounter [facility] HealthcareInstructionsNot on filedocumented in this encounterPro[facility] SystemInstructionsNot on filedocumented in this encounterProRiver[facility] Health SystemInstructionsNot on filedocumented in this encounterPro[facility] InstructionsNot on filedocumented in this encounterProOhiohealth [facility] System Summary Purpose Family History No Family History Records FoundNo Family History Records FoundNo Family History Records FoundNo Family History Records FoundNo Family History Records FoundNo Family History Records FoundNo Family History Records Found Advance Directives Documents on File Type Date Recorded Patient Airworthiness Safety Inspector Expl anation Advance Directives and Living Will Power of Record Press Operator History of Present Illness * Bradley Simmons MD - 11/10/2019 2:00 PM EST [facility] PATIENT NAME: Marita Messina MRN NUMBER: [id number] DATE OF : 1985 PHONE NUMBER: [phone] PRIMARY CARE PHYSICIAN: No primary care provider [...] year had repair above belly button at [facility] HERNIA REPAIR umbilical and above belly buton also at [facility] about 2 years ago HYSTERECTOMY [...] reports and images from the [facility] [employer] [facility] E HR from May 2019 and [...] Echo complete W/O contrast Jurgen English MD [address] [place] [address] Referral ID Status Reason Start Date Expiration Date V isits Requested Visits Authorized [id number] Pending Review 05/05/2024 05/05/2025 1 1 Specialty Diagnoses / Procedures Referred By Vickie ahumada Referred To Contact Diagnoses Chest pain, unspecified type Procedures Stress test (exercise only) Jurgen English MD [address] [place] [address] Referral ID Status Reason Start Date Expiration Date V isits Requested Visits Authorized [id number] Pending Review 05/05/2024 05/05/2025 5 5 Additional Source Comments INFORMATION SOURCE (unrecogn ized section and content) DATE CREATED AUTHOR 05/31/2019 [facility] DATE CREATED AUTHOR AUTHOR'S ORGANIZ ATION 11/11/2019 [facility] DATE CREATED AUTHOR AUTHOR'S ORGANIZ ATION 12/01/2021 [facility] DATE CREATED AUTHOR AUTHOR'S ORGANIZ ATION 09/02/2022 [facility] DATE CREATED AUTHOR AUTHOR'S ORGANIZ ATION 10/17/2024 [facility] DATE CREATED AUTHOR AUTHOR'S ORGANIZ ATION 10/28/2024 [facility] DATE CREATED AUTHOR AUTHOR'S ORGANIZ ATION 11/05/2024 [facility] Source Comments (unrecognize d section and content) In the event this informatio n is protected by the Federal Confidentiality of Alcohol and Drug Abuse Patient Records regulations: The Federal rules restrict any use of the information to criminally investigate or prosecute any alcohol or drug abuse patient.[facility] Hospital[facility] the event this information is protected by the Federal Confidentiality of Alcohol and Drug Abuse Patient Records regulations: The Federal rules restrict any use of the information to criminally investigate or prosecute any alcohol or drug abuse patient.[facility] HospitalIn the event this information is protected by the Federal Confidentiality of Alcohol and Drug Abuse Patient Records regulations: The Federal rules restrict any use of the information to criminally investigate or prosecute any alcohol or drug abuse patient.[facility] HospitalIn the event this information is protected by the Federal Confidentiality of Alcohol and Drug Abuse Patient Records regulations: The Federal rules restrict any use of the information to criminally investigate or prosecute any alcohol or drug abuse patient.[facility] Reason for Visit (unrecogniz ed section and content) Reason Onset Date Comments Refill Request 01/09/2022 Reason Onset Date Comments Refill Request 03/09/2023 Reason Onset Date Comments Refill Request 08/09/2023 Reason Comments Follow-up Reason Comments Fungus Pt is here today for fungal nails, first noticed about 1 yr ago. Also athlete's foot BL. She has tried OTC topical fungal iraqi, no change noted. SS:8 Reason Comments Rash Reason Onset Date Comments Med Refill 05/26/2024 Reason Comments Establish Care Weight Loss Reason Comments Weight Check Reason Onset Date Comments Med Refill 09/20/2024 Reason Comments New Patient [employer] [facility], SINUS TAC HY, NO PREVIOUS CARDIO, SCHED W/PT Specialty Diagnoses / Procedures Referred By Vickie ahumada Referred To Contact Cardiology Diagnoses Sinus tachycardia Chest pain, unspecified type Palpitation Luiza Webb, DO [address] [place] [address] [facility] Cardiology [address] [facility] [address] [place] [phone] Referral ID Status Reason Start Date Expiration Date Visits Requested Visits Authorized [id number] Pending Review Specialty Services Required 03/23/2024 03/23/2025 [...] Care Teams (unrecognized sec tion and content) Crime Scene Examiner Relationship Specialty Start Date End Date [place]araCait[place] [address] PCP - General Internal Medicine 11/25/18 Crime Scene Examiner Relationship Specialty Start Date End Date KyaraCaitlyn [place] [address] PCP - General Internal Medicine 11/25/18 Crime Scene Examiner Relationship Specialty Start Date End Date Kyara, Clara [place] [address] PCP - General Internal Medicine 11/25/18 Crime Scene Examiner Relationship Specialty Start Date End Date Caitlyn Sparrow [address] [place] [address] PCP - General Internal Medicine 11/25/18 Crime Scene Examiner Relationship Specialty Start Date End Date Jo-Ann Gee MD [address] [place], [place] [id number] PCP - General Family Medicine 05/09/24 Crime Scene Examiner Relationship Specialty Start Date End Date Jo-Ann Gee MD [address] [place] [address] PCP - General Family Medicine 05/09/24 Crime Scene Examiner Relationship Specialty Start Date End Date Jo-Ann Gee MD [address] [place] [address] PCP - General Family Medicine 05/09/24 Crime Scene Examiner Relationship Specialty Start Date End Date Jo-Ann Gee MD [address] [place] [address] PCP - General Family Medicine 05/09/24 Crime Scene Examiner Relationship Specialty Start Date End Date Jo-Ann Gee MD [address] [place] [address] PCP - General Family Medicine 05/09/24 Crime Scene Examiner Relationship Specialty Start Date End Date Jo-Ann Gee MD [address] [place] [address] PCP - General Family Medicine 05/09/24 Crime Scene Examiner Relationship Specialty Start Date End Date Jo-Ann Gee MD [address] [place] [address] PCP - General Family Medicine 05/09/24 Crime Scene Examiner Relationship Specialty Start Date End Date Jo-Ann Gee MD [address] [place] [address] PCP - General Family Medicine 05/09/24 Crime Scene Examiner Relationship Specialty Start Date End Date Jo-Ann Gee MD [address] [place] [address] PCP - General Family Medicine 05/09/24 Crime Scene Examiner Relationship Specialty Start Date End Date Jo-Ann Gee MD [address] [place] [address] PCP - General Family Medicine 05/09/24 Jo-Ann Gee MD [address] [place] [address] PCP - [employer] 09/10/24 Crime Scene Examiner Relationship Specialty Start Date End Date Jo-Ann Gee MD [address] [place] [address] PCP - General Family Medicine 05/09/24 Jo-Ann Gee MD [address] [place] [address] PCP - [employer] 09/10/24 Crime Scene Examiner Relationship Specialty Start Date End Date Caitlyn Sparrow MD PCP - General Pediatrics 03/08/24 Crime Scene Examiner Relationship Specialty Start Date End Date Caitlyn Sparrow MD PCP - General Pediatrics 03/08/24 Crime Scene Examiner Relationship Specialty Start Date End Date Caitlyn Sparrow MD PCP - General Pediatrics 03/08/24 Crime Scene Examiner Relationship Specialty Start Date End Date Jo-Ann Gee MD [address] [place] [address] PCP - General Family Medicine 05/09/24 Jo-Ann Gee MD [address] [place] [address] PCP - [employer]et 09/10/24 Crime Scene Examiner Relationship Specialty Start Date End Date Jo-Ann Gee MD [address] [place] [address] PCP - General Family Medicine 05/09/24 Jo-Ann Gee MD [address] [place] [address] PCP - Aet 09/10/24 Crime Scene Examiner Relationship Specialty Start Date End Date Jo-Ann Gee MD [address] [place], [place] [id number] PCP - General Family Medicine 08/20/24 FOR RECORDS PERTAINING TO PATIENTS WHO ARE [...] BE BASED ON THE PRIMARY CLINICAL RECORDS. [facility]. provides no warranty or guarantee of the accuracy or completeness of information in this document.
[2024-12-08 07:37] VITALS: BP 133/79; PULSE 100; TEMP 36.2; O2SAT 96
[2024-12-08 08:31] VITALS: BP 120/74; PULSE 84; O2SAT 100
[2024-12-08 08:32] VITALS: BP 120/75; PULSE 83; O2SAT 100
[2024-12-08] MEDS: DEXAMETHASONE SOD PHOS 10 MG/ML VIAL INJ (08:42)
[2024-12-08] MEDS: LIDOCAINE HCL 2% 400 MG/20 ML MDV 8 ML INJ (08:42)
[2024-12-08] MEDS: BUPIVACAINE HCL 0.25% PF 25 MG/10 ML VIAL 2 ML INJ (08:42)
--- NOTE | 2024-12-08 08:45 | P.ON_ITS ---
Date of procedure: 12/08/24 Pre-op diagnosis: Pain due to cervical spondylosis without myelopathy Post-op diagnosis: same as pre-op Procedure: Procedure: Right C3-4, 5-6 radiofrequency ablation Medications: Bupivacaine 0.25% 2cc, lidocaine 2% 4cc, dexamethasone 10mg The patient was seen and examined in the preoperative holding area.? The site was marked.? Written informed consent was obtained and placed on the chart.? The patient was brought to the medical procedure unit and placed in the prone position.? A timeout was completed verifying correct patient, procedure, positioning, and special requirements.? The skin overlying the target points, the designated medial branch, were prepped and draped in the usual sterile fashion.? The target point was achieved with a 20-gauge 15 cm with a 10 mm curved active tip radiofrequency cannula under direct fluoroscopic visualizatio n.? The needle was inserted at level C3 on the right side. Needle tip position was confirmed with lateral fluoroscopic position.? Motor stimulation was carried out at 2 Hz up to 5 volts with the absence of extremity activity.? This was repeated at level C4, 5, 6 on right side.?? Sensory stimulation was carried out.? Concordant pain was realized at the above- mentioned sites.? Then radiofrequency lesioning was carried out times 90 seconds at 80 degrees times 2 lesions at each level.? The radiofrequency probe was removed prior to cannula removal.? The above-mentioned injectate was placed in 1 mL increments.? The needle was removed.? Insertion sites were covered.? The patient was taken to the postoperative recovery area and monitored for an appropriate length of time before being found suitable for discharge in the company of a responsible adult. Anesthesia: Local Surgeon: Sana Radford Pathology: none sent Condition: stable Disposition: no change
== END 2024-12-08 08:51 | disposition home or self-care (01) ==
LOC: SURGOUT 07:21
PROVIDERS: PCP Internal Medicine; Visit Provider Anesthesiology
DX: M47.812 Spondylosis without myelopathy or radiculopathy, cervical region (principal); M54.2 Cervicalgia
CPT/HCPCS: 64633; 64634; J0665; J1100

== ENCOUNTER 2024-12-22 08:49 | Day surgery (SDC) | payer MEDICARE, MEDICAID, SELFPAY ==
[2024-12-22 09:05] VITALS: BP 130/86; PULSE 76; TEMP 36.4; O2SAT 99
--- OUTSIDE RECORDS SUMMARY | 2024-12-22 09:12 | XMS_ITS | CCD ---
Author Organization [facility] Care Team Providers Care Senior Paralegal Name Role Phone BRADLEY SIMMONS Referring Unavailable Unavailable Primary Care Provider UnavailCaitlyn Huynh Primary Care Provider Karel Henry Unavailable Caitlyn Sparrow Primary Care Provider TOYIN, DR MUNIRA Avalos Attending Unavailable TOYIN, [...] Unavailable Kyara, Caitlyn Amber Primary Care Provider Gerard CLEMONS, Jo-Ann Primary Care Provider Gerard CLEMONS, Jo-Ann Unavailable Kyara CLEMONS, Caitlyn Griffiths Primary Care Provider SHERIE MARIA Attending Unavailable KAMPTIBURCIO, DORCAS Attending Unavailable KAMPTIBURCIO, DORCAS Attending Unavailable KAMPTIBURCIO, DORCAS Attending Unavailable RUS, SHERIE Freitas Attending Unavailable ZANE, DORCAS Attending Unavailable KYARA, CAITLYN Griffiths Referring Unavailabl e KYARA, CAITLYN Griffiths Primary Care Unavailabl e LEONIDAS SALCIDO Referring Unavailable KYARA, CAITLYN Primary Care Unavailabl e LOLYLEONIDAS PEÑA Referring Unavailable KYARA, CAITLYN Griffiths Primary Care Unavailabl e LEONIDAS SALCIDO Referring Unavailable KYARA, CAITLYN Griffiths Primary Care Unavailabl e KYARA, CAITLYN Griffiths Referring Unavailabl e KYARA, CAITLYN Primary Care Unavailabl e KYARA, CAITLYN Griffiths Referring Unavailabl e KYARA, CAITLYN Griffiths Primary Care Unavailabl e KYARA, CAITLYN Griffiths Referring Unavailabl e KYARA, CAITLYN Griffiths Primary Care Unavailabl e KYARA, CAITLYN Primary Care Unavailabl e DAVEY VALENZUELA Attending Unavailable LEONIDAS SALCIDO Referring Unavailable KYARA, CAITLYN Primary Care Unavailabl e KYARA, CAITLYN Primary Care Unavailabl LUIZA Dorsey Attending Unavailable SMITA, LUIZA Reyes Attending Unavailable LUIZA WEBB Referring Unavailable KYARA, CAITLYN Griffiths Primary Care Unavailabl e KYARA, CAITLYN Griffiths Referring Unavailabl e KYARA, CAITLYN Primary Care Unavailabl e JURGEN ENGLISH Attending Unavailable KYARA, CAITLYN Griffiths Referring Unavailabl [...] e KYARA, CAITLYN Griffiths Referring Unavailabl e GERARD, JO-ANN Yadav Primary Care Unavailable CELESTE DHALIWAL Referring Unavailable GERARD, JO-ANN Yadav Primary Care Unavailable Gerard CLEMONS, Jo-Ann Yadav Primary Care Provider [phone] Kyara CLEMONS, [facility] Ness vailable Gigina CLEMONS, Sana Doyle Attending Unavailable Kyara CLEMONS, [facility] Ness vailable Weihrauch PA-C, Dorcas Stewart Attending Christian Sparrow MD, [facility] Ness vailable Weihrauch PA-C, Dorcas Stewart Attending Christian Sparrow MD, [facility] Ness vailable Gidebbieitis , Sana Doyle Attending Unavailable Kyara CLEMONS, [facility] Ness vailable Giedraitis , Sana Doyle Attending Unavailable Kyara CLEMONS, [facility] Ness vailable Giedraitis , Sana Doyle Attending Unavailable Kyara CLEMONS, [facility] Ness vailable Giedraitis , Sana Doyle Attending Unavailable Gigina CLEMONS, Sana Doyle Attending Unavailable Kyara CLEMONS, [facility] Ness vailable Allergies Allergy Classification Reported Allergen(s) Allergy Type Date of Onset Reaction(s) Facility (20 sources) Acetaminophen / HYDROcodone; Translations: [HYDROCODONE-ACETA MINOPHEN] Drug Allergy 10-09-2019 [facility] [place], [place] (9 sources) Acetaminophen / HYDROcodone; Translations: [Vicodin] Drug Allergy 09-10-2014 [facility] Repository Medications Current Medications Medication Drug [...] 140 MG/ML as directed Subcutaneous monthly Active [id number] 200 actuat albuterol 0.09 mg/actuat metered dose [...] muscle spasms. Active take 1 tablet by anu twice [...] 05/23/2024 06/02/2024 Active take 1 capsule by [facility] every twenty-four hours Doxycycline Hyclate 100 MG 1 capsule Orally Once a day Not-Taking 0.3 ml enoxaparin sodium 100 mg/ml prefilled syringe (1 source) Low Molecular Weight Heparin enoxaparin (LOVENOX) 30 MG/0.3ML injection Inject 30 mg into the skin daily 0 Active 1 ml erenumab-aooe 140 mg/ml auto-injector (20 sources) Start: 10-25-19 End: 10-25-19 inject 140 mg by subcutaneous injection every [...] a day for 30 days Active omega 0-ycl-bgq-fish oil (Fish OiL) 300-1,000 mg capsule (2 sources) Start: 06-10-2024 take 1 capsule by mouth in the morning omega 0-qqq-vpg-fish oil (Fish OiL) 300-1,000 mg capsule Take 2 g by mouth in the morning and 2 g before bedtime. 06/10/2024 Active [place]-3 Fatty Acids (FISH OIL OMEGA-3 PO) (14 sources) take 2 tablets by mouth twice daily in the morning [place]-3 Fatty Acids (FISH OIL OMEGA-3 PO) Take [...] 1 tablet by anu every twenty-four hours Maxalt 10 MG 1 tablet Orally Once a day 5 mg PRN Active Comment on above: Take 1 tablet by anu as needed. May repeat in 2 hours [...] ALT [Catalytic activity/Vol] 51 U/L High 0-31 [facility] Comment on above: Performed By: #### 2 4331-1, THYR, CBCA, CMP, 85190-8 #### [facility] ([id number]) [address], [address] [place] [address] Silas 11-03-2024 AST [Catalytic activity/Vol] 38 U/L Normal 0-41 [facility] Comment on above: Performed By: #### 2 4331-1, THYR, CBCA, CMP, 68226-5 #### [facility] ([id number]) [address], [address] [place] [address] DIRECT LDLon 11-03-2024 Cholesterol in LDL [Mass/Vol] 65 mg/dL Normal <130 [facility] Comment on above: Result Comment: LDL <100 mg/dL - Desirable LDL 130-159 mg/dL - Borderline High Risk LDL >160 mg/dL - High Risk Performed By: #### 2 4331-1, THYR, CBCA, CMP, 84008-9 #### [facility] ([id number]) [address], [address] [place] [address] TRIGLYCERIDEon 11-03-2024 Triglyceride [Mass/Vol] 234 mg/dL High 27-150 [facility] Comment on above: Performed By: #### 2 4331-1, THYR, CBCA, CMP, 25691-7 #### [facility] ([id number]) [address], [address] [place] [address] MR CERVICAL SPINE WO CONTon 09-16-2024 MR [...] A Myles on 09/16/2024 2:09 PM Normal [facility] Gynecology Office/Clinic Not freddie 08-13-2024 Gynecology Office/Clinic [...] cover after 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 Normal [facility] COMPREHENSIVE METABOLIC PANE Mika 05-19-2024 Albumin [Mass/Vol] 4.6 g/dL Normal 3.2-5.3 [facility] Comment on above: Performed By: #### 2 4331-1, THYR, CBCA, CMP, 47100-0 #### [facility] ([id number]) [address], [address] [place] [address] ALP [Catalytic activity/Vol] 78 U/L Normal 39-130 [facility] Comment on above: Performed By: #### 2 4331-1, THYR, CBCA, CMP, 57394-1 #### [facility] ([id number]) [address], [address] [place] [address] ALT [Catalytic activity/Vol] 85 U/L High 0-31 [facility] Comment on above: Performed By: #### 2 4331-1, THYR, CBCA, CMP, 66851-9 #### [facility] ([id number]) [address], [address] [place] [address] Anion gap [Moles/Vol] 15 mmol/L Normal 5-15 [facility] Comment on above: Performed By: #### 2 4331-1, THYR, CBCA, CMP, 71813-9 #### [facility] ([id number]) [address], [address] [place] [address] AST [Catalytic activity/Vol] 54 U/L High 0-41 [facility] Comment on above: Performed By: #### 2 4331-1, THYR, CBCA, CMP, 72160-8 #### [facility] ([id number]) [address], [address] [place] [address] Bilirubin [Mass/Vol] 0.6 mg/dL Normal 0.3-1.2 [facility] Comment on above: Performed By: #### 2 4331-1, THYR, CBCA, CMP, 18575-9 #### [facility] ([id number]) [address], [address] [place] [address] Calcium [Mass/Vol] 9.6 mg/dL Normal 8.5-10.5 [facility] Comment on above: Performed By: #### 2 4331-1, THYR, CBCA, CMP, 39562-0 #### [facility] ([id number]) [address] [place] [address] Chloride [Moles/Vol] 102 mmol/L Normal 98-109 [facility] Comment on above: Performed By: #### 2 4331-1, THYR, CBCA, CMP, 10711-7 #### [facility] ([id number]) [address], [address] [place] [address] CO2 [Moles/Vol] 19 mmol/L Low 22-32 [facility] Comment on above: Performed By: #### 2 4331-1, THYR, CBCA, CMP, 85267-6 #### [facility] ([id number]) [address], [address] [place] [address] Creatinine [Mass/Vol] 0.89 mg/dL Normal 0.40-1.00 [facility] Comment on above: Result Comment: METH OD TRACEABLE TO IDMS STANDARD Performed By: #### 2 4331-1, THYR, CBCA, CMP, 61177-6 #### [facility] ([id number]) [address], [address] [place] [address] GFR/1.73 sq M.predicted among non-blacks MDRD (S/P/Bld) [Vol rate/Area] 86 mL/min/{1.73_m2} Normal >59 [facility] Comment on above: Result Comment: Reported eGFR is based on the CKD-EPI 2020 equation that does not use a race coefficient. Performed By: #### 2 4331-1, THYR, CBCA, CMP, 78593-0 #### [facility] ([id number]) [address] [place] [address] Glucose [Mass/Vol] 95 mg/dL Normal 65-99 [facility] Comment on above: Performed By: #### 2 4331-1, THYR, CBCA, CMP, 25654-5 #### [facility] ([id number]) [address] [place] [address] Potassium [Moles/Vol] 4.0 mmol/L Normal 3.5-5.0 [facility] Comment on above: Performed By: #### 2 4331-1, THYR, CBCA, CMP, 25708-2 #### [facility] ([id number]) [address], [address] [place] [address] Protein [Mass/Vol] 7.0 g/dL Normal 6.0-8.0 [facility] Comment on above: Performed By: #### 2 4331-1, THYR, CBCA, CMP, 27471-6 #### [facility] ([id number]) [address] [place] [address] Sodium [Moles/Vol] 136 mmol/L Normal 134-146 [facility] Comment on above: Performed By: #### 2 4331-1, THYR, CBCA, CMP, 32670-7 #### [facility] ([id number]) [address] [place] [address] Urea nitrogen [Mass/Vol] 10 mg/dL Normal 5-23 [facility] Comment on above: Performed By: #### 2 4331-1, THYR, CBCA, CMP, 35187-9 #### [facility] ([id number]) [address] [place] [address] DIRECT LDLon 05-19-2024 Cholesterol in LDL [Mass/Vol] 181 mg/dL High <130 [facility] Comment on above: Result Comment: LDL <100 mg/dL - Desirable LDL 130-159 mg/dL - Borderline High Risk LDL >160 mg/dL - High Risk Performed By: #### 2 4331-1, THYR, CBCA, CMP, 06352-5 #### [facility] ([id number]) [address], [address] [place] [address] LIVER PANELon 05-19-2024 Bilirubin.direct [Mass/Vol] 0.1 mg/dL Normal 0.0-0.4 [facility] Comment on above: Performed By: #### 2 4331-1, THYR, CBCA, CMP, 29257-3 #### [facility] ([id number]) [address], [address] [place] [address] Lipid 1996 panelon Cholesterol [Mass/Vol] 276 mg/dL High 150-200 [facility] Comment on above: Performed By: #### 2 4331-1, THYR, CBCA, CMP, 38694-5 #### [facility] ([id number]) [address], [address] [place] [address] Cholesterol in HDL [Mass/Vol] 42 mg/dL Normal >39 [facility] Comment on above: Result Comment: HDL <40 mg/dL - High Risk HDL > or = 40mg/dL- Desirable HDL >60 mg/dL - Negative Risk Performed By: #### 2 4331-1, THYR, CBCA, CMP, 71835-6 #### [facility] ([id number]) [address], [address] [place] [address] Cholesterol in VLDL [Mass/Vol] 98 mg/dL High 0-30 [facility] Comment on above: Performed By: #### 2 4331-1, THYR, CBCA, CMP, 67624-1 #### [facility] ([id number]) [address], [facility] [address] [place] [address] CHOLESTEROL:HDL 6.6 High 1.0-5.0 [facility] Comment on above: Performed By: #### 2 4331-1, THYR, CBCA, CMP, 70538-4 #### [facility] ([id number]) [address] [place] [address] LDL (CALC) RESULT NOT REPORTED DUE TO HIGH TRIGLYCERIDE Normal <130 [facility] Comment on above: Performed By: #### 2 4331-1, THYR, CBCA, CMP, 56434-5 #### [facility] ([id number]) [address], [facility] [address] [place] [address] Triglyceride [Mass/Vol] 488 mg/dL High 27-150 [facility] Comment on above: Performed By: #### 2 4331-1, THYR, CBCA, CMP, 36432-5 #### [facility] ([id number]) [address], [facility] [address] [place] [address] MR LUMBAR SPINE WO CONTon MR LUMBAR [...] Bruce DO on 03/26/2024 1:45 PM Normal [facility] CBC AND AUTO DIFFon 03-23-20 24 ABSOLUTE BASOPHIL 0.0 X10E9/L Normal 0.0-0.2 [facility] Comment on above: Performed By: #### 2 4331-1, THYR, CBCA, CMP, 99471-9 #### [facility] ([id number]) [address], [address] [place] [address] ABSOLUTE NEUTROPHIL 4.7 X10E9/L Normal 1.5-6.6 [facility] Comment on above: Performed By: #### 2 4331-1, THYR, CBCA, CMP, 56459-1 #### [facility] ([id number]) [address], [address] [place] [address] Basophils/100 WBC (Bld) 0.3 % Normal [facility] Comment on above: Performed By: #### 2 4331-1, THYR, CBCA, CMP, 84206-3 #### [facility] ([id number]) [address] [place] [address] Eosinophils (Bld) [#/Vol] 0.0 10*3/uL Normal 0.0-0.4 [facility] Comment on above: Performed By: #### 2 4331-1, THYR, CBCA, CMP, 22535-0 #### [facility] ([id number]) [address] [place] [address] Eosinophils/100 WBC (Bld) 0.4 % Normal [facility] Comment on above: Performed By: #### 2 4331-1, THYR, CBCA, CMP, 57842-0 #### [facility] ([id number]) [address] [place] [address] Erythrocyte distribution width (RBC) [Ratio] 13.5 % Normal 11.5-15.0 [facility] Comment on above: Performed By: #### 2 4331-1, THYR, CBCA, CMP, 13269-1 #### [facility] ([id number]) [address] [place] [address] Hematocrit (Bld) [Volume fraction] 44.6 % Normal 35-47 [facility] Comment on above: Performed By: #### 2 4331-1, THYR, CBCA, CMP, 64757-1 #### [facility] ([id number]) [address] [place] [address] Hemoglobin (Bld) [Mass/Vol] 15.6 g/dL High 11.7-15.5 [facility] Comment on above: Performed By: #### 2 4331-1, THYR, CBCA, CMP, 62436-1 #### [facility] ([id number]) [address] [place] [address] Lymphocytes (Bld) [#/Vol] 0.5 10*3/uL Low 1.0-3.5 [facility] Comment on above: Performed By: #### 2 4331-1, THYR, CBCA, CMP, 94137-9 #### [facility] ([id number]) [address], [address] [place] [address] Lymphocytes/100 WBC (Bld) 8.7 % Normal [facility] Comment on above: Performed By: #### 2 4331-1, THYR, CBCA, CMP, 63054-4 #### [facility] ([id number]) [address], [facility] [address] [place] [address] MCH (RBC) [Entitic mass] 32.5 pg Normal 27-34 [facility] Comment on above: Performed By: #### 2 4331-1, THYR, CBCA, CMP, 12156-5 #### [facility] ([id number]) [address], [address] [place] [address] MCHC (RBC) [Mass/Vol] 34.9 g/dL Normal 32-36 [facility] Comment on above: Performed By: #### 2 4331-1, THYR, CBCA, CMP, 49772-5 #### [facility] ([id number]) [address], [facility] [address] [place] [address] MCV (RBC) [Entitic vol] 93 fL Normal 80-100 [facility] Comment on above: Performed By: #### 2 4331-1, THYR, CBCA, CMP, 65716-8 #### [facility] ([id number]) [address] [place] [address] Monocytes (Bld) [#/Vol] 0.0 10*3/uL Normal 0-0.9 [facility] Comment on above: Performed By: #### 2 4331-1, THYR, CBCA, CMP, 49877-3 #### [facility] ([id number]) [address] [place] [address] Monocytes/100 WBC (Bld) 0.6 % Normal [facility] Comment on above: Performed By: #### 2 4331-1, THYR, CBCA, CMP, 12712-5 #### [facility] ([id number]) [address] [place] [address] Neutrophils/100 WBC (Bld) 90.0 % Normal [facility] Comment on above: Performed By: #### 2 4331-1, THYR, CBCA, CMP, 42277-1 #### [facility] ([id number]) [address] [place] [address] Platelet mean volume (Bld) [Entitic vol] 7.2 fL Normal 7-12 [facility] Comment on above: Performed By: #### 2 4331-1, THYR, CBCA, CMP, 90787-0 #### [facility] ([id number]) [address] [place] [address] Platelets (Bld) [#/Vol] 286 10*3/uL Normal 150-450 [facility] Comment on above: Performed By: #### 2 4331-1, THYR, CBCA, CMP, 91647-8 #### [facility] ([id number]) [address] [place] [address] RBC COUNT 4.80 X10E12/L Normal 3.80-5.20 [facility] Comment on above: Performed By: #### 2 4331-1, THYR, CBCA, CMP, 09857-6 #### [facility] ([id number]) [address] [facility] [place] [address] WBC (Bld) [#/Vol] 5.3 10*3/uL Normal 4.0-11.0 [facility] Comment on above: Performed By: #### 2 4331-1, THYR, CBCA, CMP, 47473-3 #### [facility] ([id number]) [address], [address] [place] [address] COMPREHENSIVE METABOLIC PANE Mika 03-23-2024 Albumin [Mass/Vol] 4.2 g/dL Normal 3.2-5.3 [facility] Comment on above: Performed By: #### 2 4331-1, THYR, CBCA, CMP, 65099-8 #### [facility] ([id number]) [address], [address] [place] [address] ALP [Catalytic activity/Vol] 115 U/L Normal 39-130 [facility] Comment on above: Performed By: #### 2 4331-1, THYR, CBCA, CMP, 54172-8 #### [facility] ([id number]) [address], [address] [place] [address] ALT [Catalytic activity/Vol] 81 U/L High 0-31 [facility] Comment on above: Performed By: #### 2 4331-1, THYR, CBCA, CMP, 33806-0 #### [facility] ([id number]) [address], [address] [place] [address] Anion gap [Moles/Vol] 14 mmol/L Normal 5-15 [facility] Comment on above: Performed By: #### 2 4331-1, THYR, CBCA, CMP, 37831-3 #### [facility] ([id number]) [address], [address] [place] [address] AST [Catalytic activity/Vol] 48 U/L High 0-41 [facility] Comment on above: Performed By: #### 2 4331-1, THYR, CBCA, CMP, 20242-8 #### [facility] ([id number]) [address], [address] [place] [address] Bilirubin [Mass/Vol] 1.3 mg/dL High 0.3-1.2 [facility] Comment on above: Performed By: #### 2 4331-1, THYR, CBCA, CMP, 47181-7 #### [facility] ([id number]) [address], [address] [place] [address] Calcium [Mass/Vol] 9.3 mg/dL Normal 8.5-10.5 [facility] Comment on above: Performed By: #### 2 4331-1, THYR, CBCA, CMP, 47340-9 #### [facility] ([id number]) [address], [facility] [address] [place] [address] Chloride [Moles/Vol] 97 mmol/L Low 98-109 [facility] Comment on above: Performed By: #### 2 4331-1, THYR, CBCA, CMP, 43608-9 #### [facility] ([id number]) [address], [address] [place] [address] CO2 [Moles/Vol] 22 mmol/L Normal 22-32 [facility] Comment on above: Performed By: #### 2 4331-1, THYR, CBCA, CMP, 42259-2 #### [facility] ([id number]) [address], [facility] [address] [place] [address] Creatinine [Mass/Vol] 0.91 mg/dL Normal 0.40-1.00 [facility] Comment on above: Result Comment: METH OD TRACEABLE TO IDMS STANDARD Performed By: #### 2 4331-1, THYR, CBCA, CMP, 80493-5 #### [facility] ([id number]) [address] [facility] [place] [address] GFR/1.73 sq M.predicted among non-blacks MDRD (S/P/Bld) [Vol rate/Area] 83 mL/min/{1.73_m2} Normal >59 [facility] Comment on above: Result Comment: Reported eGFR is based on the CKD-EPI 2020 equation that does not use a race coefficient. Performed By: #### 2 4331-1, THYR, CBCA, CMP, 54458-7 #### [facility] ([id number]) [address] [address] [place] [address] Glucose [Mass/Vol] 110 mg/dL High 65-99 [facility] Comment on above: Performed By: #### 2 4331-1, THYR, CBCA, CMP, 64829-3 #### [facility] ([id number]) [address] [facility] [address] [place] [address] Potassium [Moles/Vol] 3.8 mmol/L Normal 3.5-5.0 [facility] Comment on above: Performed By: #### 2 4331-1, THYR, CBCA, CMP, 16410-3 #### [facility] ([id number]) [address] [address] [place] [address] Protein [Mass/Vol] 8.0 g/dL Normal 6.0-8.0 [facility] Comment on above: Performed By: #### 2 4331-1, THYR, CBCA, CMP, 07152-0 #### [facility] ([id number]) [address] [address] [place] [address] Sodium [Moles/Vol] 133 mmol/L Low 134-146 [facility] Comment on above: Performed By: #### 2 4331-1, THYR, CBCA, CMP, 19036-9 #### [facility] ([id number]) [address] [place] [address] Urea nitrogen [Mass/Vol] 13 mg/dL Normal 5-23 [facility] Comment on above: Performed By: #### 2 4331-1, THYR, CBCA, CMP, 50539-8 #### [facility] ([id number]) [address] [place] [address] CT CTA CHESTon 03-23-2024 CT CTA CHEST [...] and/or edited the report Finalized by Joe Chpaarro MD on 03/23/2024 10:52 PM Normal [facility] Fibrin D-dimer DDU (PPP) [Ma ss/Vol]on 03-23-2024 D DIMER 336 ng/mL DDU High <255 [facility] Comment on above: Result Comment: Results >=255ng/mL [...] By: #### 2 4331-1, THYR, CBCA, CMP, 04590-9 #### [facility] ([id number]) [address], [address] [address] HCG ( test) Ql (U)o n 03-23-2024 Beta HCG ( test) Ql (U) Negative Normal NEG [facility] Comment on above: Performed By: #### 2 4331-1, THYR, CBCA, CMP, 24961-8 #### [facility] ([id number]) [address], [address] [address] LIPASEon 03-23-2024 Lipase [Catalytic activity/Vol] 30 U/L Normal 17-40 [facility] Comment on above: Performed By: #### 2 4331-1, THYR, CBCA, CMP, 83482-0 #### [facility] ([id number]) [address], [address] [address] THYROID PROFILEon 03-23-2024 Free T4 [Mass/Vol] 0.74 ng/dL Normal 0.61-1.60 [facility] Comment on above: Performed By: #### 2 4331-1, THYR, CBCA, CMP, 71296-0 #### [facility] ([id number]) [address] [address] TSH 1.64 uIU/mL Normal 0.49-4.67 [facility] Comment on above: Performed By: #### 2 4331-1, THYR, CBCA, CMP, 81294-6 #### [facility] ([id number]) [address] [address] Troponin I.cardiac High sens itivity method [Mass/Vol]on 03-23-2024 1 HOUR TROP I, HIGH SENSITIVITY 3 ng/L Normal <16 [facility] Comment on above: Performed By: #### 2 4331-1, THYR, CBCA, CMP, 29466-0 #### [facility] ([id number]) [address], [address] [place] [address] TROPONIN I, HIGH SENSITIVITY 2 ng/L Normal <16 [facility] Comment on above: Performed By: #### 2 4331-1, THYR, CBCA, CMP, 61979-3 #### [facility] ([id number]) [address], [address] [place] [address] URINE CULTUREon 03-23-2024 Bacteria identified Cx Nom [...] F TRIMETH/SULFAMETHOXAZO LE S <=1/19 F Susceptible [facility] Comment on above: Performed By: #### 2 4331-1, THYR, CBCA, CMP, 46687-6 #### [facility] ([id number]) [address], [address] [place] [address] URN MACROSCOPIC NURon 2023 BILIRUBIN LUL Negative Normal NEG [facility] Comment on above: Performed By: #### 2 4331-1, THYR, CBCA, CMP, 30046-1 #### [facility] ([id number]) [address], [address] [place] [address] BLOOD/HGB LUL Small Abnormal NEG [facility] Comment on above: Performed By: #### 2 4331-1, THYR, CBCA, CMP, 06139-7 #### [facility] ([id number]) [address], [address] [place] [address] GLUCOSE LUL Negative Normal NEG [facility] Comment on above: Performed By: #### 2 4331-1, THYR, CBCA, CMP, 34443-2 #### [facility] ([id number]) [address], [address] [place] [address] KETONES LUL Negative Normal NEG [facility] Comment on above: Performed By: #### 2 4331-1, THYR, CBCA, CMP, 17863-7 #### [facility] ([id number]) [address], [address] [place] [address] LEUKOCYTE ESTERASE LUL Small Abnormal NEG [facility] Comment on above: Performed By: #### 2 4331-1, THYR, CBCA, CMP, 85990-6 #### [facility] ([id number]) [address], [address] [place] [address] NITRITE LUL Negative Normal NEG [facility] Comment on above: Performed By: #### 2 4331-1, THYR, CBCA, CMP, 11730-4 #### [facility] ([id number]) [address], [address] [place] [address] PH LUL 5.5 Normal 5.0-8.5 [facility] Comment on above: Performed By: #### 2 4331-1, THYR, CBCA, CMP, 48925-0 #### [facility] ([id number]) [address], [address] [place] [address] PROTEIN LUL Negative Normal NEG [facility] Comment on above: Performed By: #### 2 4331-1, THYR, CBCA, CMP, 00958-0 #### [facility] ([id number]) [address], [address] [place] [address] SPECIFIC GRAVITY LUL 1.010 Normal 1.003-1.035 [facility] Comment on above: Performed By: #### 2 4331-1, THYR, CBCA, CMP, 87571-9 #### [facility] ([id number]) [address], [address] [place] [address] UROBILINOGEN LUL 0.2 eu/dL Normal <1.1 [facility] Comment on above: Performed By: #### 2 4331-1, THYR, CBCA, CMP, 18240-8 #### [facility] ([id number]) [address] [address] [place] [address] CBC AND AUTO DIFFon 02-29-20 24 ABSOLUTE BASOPHIL 0.0 X10E9/L Normal 0.0-0.2 [facility] Comment on above: Performed By: #### T HYR, HA1C, CBCA, 55337-0 #### [facility] ([id number]) [address], [facility] [address] [place] [address] ABSOLUTE NEUTROPHIL 2.8 X10E9/L Normal 1.5-6.6 [facility] Comment on above: Performed By: #### T HYR, HA1C, CBCA, 29408-1 #### [facility] ([id number]) [address] [address] Basophils/100 WBC (Bld) 0.7 % Normal [facility] Comment on above: Performed By: #### T HYR, HA1C, CBCA, 33674-6 #### [facility] ([id number]) [address] [address] [place] [address] Eosinophils (Bld) [#/Vol] 0.1 10*3/uL Normal 0.0-0.4 [facility] Comment on above: Performed By: #### T HYR, HA1C, CBCA, 56812-2 #### [facility] ([id number]) [address], [address] [place] [address] [place] [address] Eosinophils/100 WBC (Bld) 2.1 % Normal [facility] Comment on above: Performed By: #### T HYR, HA1C, CBCA, 32729-7 #### [facility] ([id number]) [address], [facility] [address] [place] [address] Erythrocyte distribution width (RBC) [Ratio] 13.7 % Normal 11.5-15.0 [facility] Comment on above: Performed By: #### T HYR, HA1C, CBCA, 33019-9 #### [facility] ([id number]) [address], [facility] [address] [place] [address] Hematocrit (Bld) [Volume fraction] 45.0 % Normal 35-47 [facility] Comment on above: Performed By: #### T HYR, HA1C, CBCA, 52547-6 #### [facility] ([id number]) [address], [address] [place] [address] Hemoglobin (Bld) [Mass/Vol] 15.5 g/dL Normal 11.7-15.5 [facility] Comment on above: Performed By: #### T HYR, HA1C, CBCA, 43934-9 #### [facility] ([id number]) [address], [facility] [address] [place] [address] Lymphocytes (Bld) [#/Vol] 1.4 10*3/uL Normal 1.0-3.5 [facility] Comment on above: Performed By: #### T HYR, HA1C, CBCA, 11820-4 #### [facility] ([id number]) [address] [address] [place] [address] Lymphocytes/100 WBC (Bld) 28.9 % Normal [facility] Comment on above: Performed By: #### T HYR, HA1C, CBCA, 30973-7 #### [facility] ([id number]) [address], [address] [place] [address] MCH (RBC) [Entitic mass] 32.0 pg Normal 27-34 [facility] Comment on above: Performed By: #### T HYR, HA1C, CBCA, 09493-1 #### [facility] ([id number]) [address], [address] [place] [address] MCHC (RBC) [Mass/Vol] 34.3 g/dL Normal 32-36 [facility] Comment on above: Performed By: #### T HYR, HA1C, CBCA, 81291-1 #### [facility] ([id number]) [address], [address] [place] [address] MCV (RBC) [Entitic vol] 93 fL Normal 80-100 [facility] Comment on above: Performed By: #### T HYR, HA1C, CBCA, 85015-7 #### [facility] ([id number]) [address], [address] [place] [address] Monocytes (Bld) [#/Vol] 0.4 10*3/uL Normal 0-0.9 [facility] Comment on above: Performed By: #### T HYR, HA1C, CBCA, 26318-5 #### [facility] ([id number]) [address], [address] [place] [address] Monocytes/100 WBC (Bld) 8.4 % Normal [facility] Comment on above: Performed By: #### T HYR, HA1C, CBCA, 56986-0 #### [facility] ([id number]) [address], [address] [place] [address] Neutrophils/100 WBC (Bld) 59.9 % Normal [facility] Comment on above: Performed By: #### T HYR, HA1C, CBCA, 92115-5 #### [facility] ([id number]) [address], [address] [place] [address] Platelet mean volume (Bld) [Entitic vol] 8.5 fL Normal 7-12 [facility] Comment on above: Performed By: #### T HYR, HA1C, CBCA, 99445-1 #### [facility] ([id number]) [address], [address] [place] [address] Platelets (Bld) [#/Vol] 272 10*3/uL Normal 150-450 [facility] Comment on above: Performed By: #### T HYR, HA1C, CBCA, 14966-4 #### [facility] ([id number]) [address], [address] [place] [address] RBC COUNT 4.83 X10E12/L Normal 3.80-5.20 [facility] Comment on above: Performed By: #### T HYR, HA1C, CBCA, 31312-3 #### [facility] ([id number]) [address], [address] [place] [address] WBC (Bld) [#/Vol] 4.7 10*3/uL Normal 4.0-11.0 [facility] Comment on above: Performed By: #### T HYR, HA1C, CBCA, 92553-2 #### [facility] ([id number]) [address], [address] [place] [address] HGB A1C (GLYCO-HGB)on 2023 Glucose [Mass/Vol] 97 mg/dL Normal [facility] Comment on above: Performed By: #### T HYR, HA1C, CBCA, 64047-2 #### [facility] ([id number]) [address], [address] [place] [address] HbA1c (Bld) [Mass fraction] 5.0 % Normal 4.4-5.6 [facility] Comment on above: Result Comment: NOTE ADA Guidelines Result HgbA1c Normal : less than 5.7 % Prediabetes : 5.7 % to 6.4 % Diabetes : > 6.4 % Use with caution in patients with abnormal hemoglobin variants as the half-life of red blood cells and in vivo glycation rates are affected. Performed By: #### T HYR, HA1C, CBCA, 33444-1 #### [facility] ([id number]) [address] [facility], [facility] [address] [place] [address] THYROID PROFILEon 02-29-2024 Free T4 [Mass/Vol] 0.67 ng/dL Normal 0.61-1.60 [facility] Comment on above: Performed By: #### T HYR, HA1C, CBCA, 79431-6 #### [facility] ([id number]) [address] [facility], [facility] [address] [place] [address] TSH 1.84 uIU/mL Normal 0.49-4.67 [facility] Comment on above: Performed By: #### T HYR, HA1C, CBCA, 09638-7 #### [facility] ([id number]) [address] [place] [address], [facility] [address] [place] [address] Vitamin D+Metabolites [Mass/ Vol]on 02-29-2024 VITAMIN D 25 HYD TOT 32.3 ng/mL Normal 30-100 [facility] Comment on above: Result Comment: Vitamin D status 25 [place] Vitamin D Deficiency <20 ng/mL Insufficiency 20-29 ng/mL Sufficiency 30-100 ng/mL Toxicity >100 ng/mL NOTE: A pediatric reference range has not been established by the tenter feeder of this kit. The [place] [employer] recommends a Vitamin D level of = or >20ng/mL in infants and children. Performed By: #### 2 4331-1, THYR, CBCA, CMP, 90957-9 #### [facility] ([id number]) [address], [address] [place] [address] XR LUMBAR SPINE AP, LATERAL, FLEXION AND [...] Chun MD on 12/03/2023 10:04 AM Normal [facility] XR SPINE CERVICAL 3 VWS OR L [...] previous examination dated 05/16/2019.. Finalized by Jesse Jya MD on 12/02/2023 7:06 AM Normal [facility] CBC AND AUTO DIFFon 11-30-19 24 ABSOLUTE BASOPHIL 0.0 X10E9/L Normal 0.0-0.2 [facility] Comment on above: Performed By: #### 2 4331-1, THYR, CBCA, CMP, 65723-7 #### [facility] ([id number]) [address] [place] [address] ABSOLUTE NEUTROPHIL 2.5 X10E9/L Normal 1.5-6.6 [facility] Comment on above: Performed By: #### 2 4331-1, THYR, CBCA, CMP, 04635-5 #### [facility] ([id number]) [address], [facility] [address] [place] [address] Basophils/100 WBC (Bld) 0.5 % Normal [facility] Comment on above: Performed By: #### 2 4331-1, THYR, CBCA, CMP, 86527-5 #### [facility] ([id number]) [address], [facility] [address] [place] [address] Eosinophils (Bld) [#/Vol] 0.0 10*3/uL Normal 0.0-0.4 [facility] Comment on above: Performed By: #### 2 4331-1, THYR, CBCA, CMP, 95955-0 #### [facility] ([id number]) [address] [address] [place] [address] Eosinophils/100 WBC (Bld) 1.2 % Normal [facility] Comment on above: Performed By: #### 2 4331-1, THYR, CBCA, CMP, 90079-0 #### [facility] ([id number]) [address] [address] [place] [address] Erythrocyte distribution width (RBC) [Ratio] 13.7 % Normal 11.5-15.0 [facility] Comment on above: Performed By: #### 2 4331-1, THYR, CBCA, CMP, 82922-9 #### [facility] ([id number]) [address], [address] [place] [address] Hematocrit (Bld) [Volume fraction] 43.0 % Normal 35-47 [facility] Comment on above: Performed By: #### 2 4331-1, THYR, CBCA, CMP, 12236-4 #### [facility] ([id number]) [address] [address] [place] [address] Hemoglobin (Bld) [Mass/Vol] 15.0 g/dL Normal 11.7-15.5 [facility] Comment on above: Performed By: #### 2 4331-1, THYR, CBCA, CMP, 94391-0 #### [facility] ([id number]) [address] [address] Lymphocytes (Bld) [#/Vol] 0.9 10*3/uL Low 1.0-3.5 [facility] Comment on above: Performed By: #### 2 4331-1, THYR, CBCA, CMP, 16453-1 #### [facility] ([id number]) [address] [address] Lymphocytes/100 WBC (Bld) 23.6 % Normal [facility] Comment on above: Performed By: #### 2 4331-1, THYR, CBCA, CMP, 60798-8 #### [facility] ([id number]) [address] [address] MCH (RBC) [Entitic mass] 32.2 pg Normal 27-34 [facility] Comment on above: Performed By: #### 2 4331-1, THYR, CBCA, CMP, 61836-6 #### [facility] ([id number]) [address] [address] [place] [address] MCHC (RBC) [Mass/Vol] 35.0 g/dL Normal 32-36 [facility] Comment on above: Performed By: #### 2 4331-1, THYR, CBCA, CMP, 50375-3 #### [facility] ([id number]) [address] [address] [place] [address] MCV (RBC) [Entitic vol] 92 fL Normal 80-100 [facility] Comment on above: Performed By: #### 2 4331-1, THYR, CBCA, CMP, 51176-7 #### [facility] ([id number]) [address], [address] [place] [address] Monocytes (Bld) [#/Vol] 0.3 10*3/uL Normal 0-0.9 [facility] Comment on above: Performed By: #### 2 4331-1, THYR, CBCA, CMP, 87125-0 #### [facility] ([id number]) [address], [facility] [address] [place] [address] Monocytes/100 WBC (Bld) 7.0 % Normal [facility] Comment on above: Performed By: #### 2 4331-1, THYR, CBCA, CMP, 81806-4 #### [facility] ([id number]) [address], [address] [place] [address] Neutrophils/100 WBC (Bld) 67.7 % Normal [facility] Comment on above: Performed By: #### 2 4331-1, THYR, CBCA, CMP, 16913-1 #### [facility] ([id number]) [address], [address] [place] [address] Platelet mean volume (Bld) [Entitic vol] 8.7 fL Normal 7-12 [facility] Comment on above: Performed By: #### 2 4331-1, THYR, CBCA, CMP, 79447-8 #### [facility] ([id number]) [address], [address] [place] [address] Platelets (Bld) [#/Vol] 186 10*3/uL Normal 150-450 [facility] Comment on above: Performed By: #### 2 4331-1, THYR, CBCA, CMP, 61890-1 #### [facility] ([id number]) [address], [address] [place] [address] RBC COUNT 4.67 X10E12/L Normal 3.80-5.20 [facility] Comment on above: Performed By: #### 2 4331-1, THYR, CBCA, CMP, 13439-6 #### [facility] ([id number]) [address], [address] [place] [address] WBC (Bld) [#/Vol] 3.7 10*3/uL Low 4.0-11.0 [facility] Comment on above: Performed By: #### 2 4331-1, THYR, CBCA, CMP, 12605-3 #### [facility] ([id number]) [address], [address] [place] [address] COMPREHENSIVE METABOLIC PANE Mika 11-30-2023 Albumin [Mass/Vol] 4.4 g/dL Normal 3.2-5.3 [facility] Comment on above: Performed By: #### 2 4331-1, THYR, CBCA, CMP, 74040-6 #### [facility] ([id number]) [address], [address] [place] [address] ALP [Catalytic activity/Vol] 65 U/L Normal 39-130 [facility] Comment on above: Performed By: #### 2 4331-1, THYR, CBCA, CMP, 90601-5 #### [facility] ([id number]) [address], [address] [place] [address] ALT [Catalytic activity/Vol] 59 U/L High 0-31 [facility] Comment on above: Performed By: #### 2 4331-1, THYR, CBCA, CMP, 69985-9 #### [facility] ([id number]) [address], [address] [place] [address] Anion gap [Moles/Vol] 6 mmol/L Normal 5-15 [facility] Comment on above: Performed By: #### 2 4331-1, THYR, CBCA, CMP, 64693-3 #### [facility] ([id number]) [address] [address] [place] [address] AST [Catalytic activity/Vol] 31 U/L Normal 0-41 [facility] Comment on above: Performed By: #### 2 4331-1, THYR, CBCA, CMP, 99534-3 #### [facility] ([id number]) [address], [address] [place] [address] Bilirubin [Mass/Vol] 0.8 mg/dL Normal 0.3-1.2 [facility] Comment on above: Performed By: #### 2 4331-1, THYR, CBCA, CMP, 57195-5 #### [facility] ([id number]) [address], [address] [place] [address] Calcium [Mass/Vol] 9.1 mg/dL Normal 8.5-10.5 [facility] Comment on above: Performed By: #### 2 4331-1, THYR, CBCA, CMP, 09813-3 #### [facility] ([id number]) [address] [address] [place] [address] Chloride [Moles/Vol] 103 mmol/L Normal 98-109 [facility] Comment on above: Performed By: #### 2 4331-1, THYR, CBCA, CMP, 12044-4 #### [facility] ([id number]) [address] [address] [place] [address] CO2 [Moles/Vol] 28 mmol/L Normal 22-32 [facility] Comment on above: Performed By: #### 2 4331-1, THYR, CBCA, CMP, 35740-0 #### [facility] ([id number]) [address], [address] [place] [address] Creatinine [Mass/Vol] 0.86 mg/dL Normal 0.40-1.00 [facility] Comment on above: Result Comment: METH OD TRACEABLE TO IDMS STANDARD Performed By: #### 2 4331-1, THYR, CBCA, CMP, 50627-4 #### [facility] ([id number]) [address], [address] [place] [address] GFR/1.73 sq M.predicted among non-blacks MDRD (S/P/Bld) [Vol rate/Area] 89 mL/min/{1.73_m2} Normal >59 [facility] Comment on above: Result Comment: Reported eGFR is based on the CKD-EPI 2020 equation that does not use a race coefficient. Performed By: #### 2 4331-1, THYR, CBCA, CMP, 03984-8 #### [facility] ([id number]) [address], [address] [place] [address] Glucose [Mass/Vol] 97 mg/dL Normal 65-99 [facility] Comment on above: Performed By: #### 2 4331-1, THYR, CBCA, CMP, 75244-5 #### [facility] ([id number]) [address] [address] [place] [address] Potassium [Moles/Vol] 3.8 mmol/L Normal 3.5-5.0 [facility] Comment on above: Performed By: #### 2 4331-1, THYR, CBCA, CMP, 92911-5 #### [facility] ([id number]) [address], [address] [place] [address] Protein [Mass/Vol] 6.6 g/dL Normal 6.0-8.0 [facility] Comment on above: Performed By: #### 2 4331-1, THYR, CBCA, CMP, 29895-4 #### [facility] ([id number]) [address], [address] [place] [address] Sodium [Moles/Vol] 137 mmol/L Normal 134-146 [facility] Comment on above: Performed By: #### 2 4331-1, THYR, CBCA, CMP, 32144-5 #### [facility] ([id number]) [address], [address] [place] [address] Urea nitrogen [Mass/Vol] 9 mg/dL Normal 5-23 [facility] Comment on above: Performed By: #### 2 4331-1, THYR, CBCA, CMP, 18832-6 #### [facility] ([id number]) [address], [address] [place] [address] Lipid 1996 panelon 4 Cholesterol [Mass/Vol] 236 mg/dL High 150-200 [facility] Comment on above: Performed By: #### 2 4331-1, THYR, CBCA, CMP, 32194-9 #### [facility] ([id number]) [address], [address] [place] [address] Cholesterol in HDL [Mass/Vol] 48 mg/dL Normal >39 [facility] Comment on above: Result Comment: HDL <40 mg/dL - High Risk HDL > or = 40mg/dL- Desirable HDL >60 mg/dL - Negative Risk Performed By: #### 2 4331-1, THYR, CBCA, CMP, 34404-9 #### [facility] ([id number]) [address], [address] [place] [address] Cholesterol in LDL [Mass/Vol] 124 mg/dL Normal <130 [facility] Comment on above: Result Comment: LDL <100 mg/dL - Desirable LDL >160 mg/dL - High Risk Performed By: #### 2 4331-1, THYR, CBCA, CMP, 55405-9 #### [facility] ([id number]) [address] [place] [address] Cholesterol in VLDL [Mass/Vol] 64 mg/dL High 0-30 [facility] Comment on above: Performed By: #### 2 4331-1, THYR, CBCA, CMP, 22885-9 #### [facility] ([id number]) [address] [place] [address] CHOLESTEROL:HDL 4.9 Normal 1.0-5.0 [facility] Comment on above: Performed By: #### 2 4331-1, THYR, CBCA, CMP, 46825-9 #### [facility] ([id number]) [address] [place] [address] Triglyceride [Mass/Vol] 318 mg/dL High 27-150 [facility] Comment on above: Performed By: #### 2 4331-1, THYR, CBCA, CMP, 50653-4 #### [facility] ([id number]) [address] [place] [address] THYROID PROFILEon 11-30-2023 Free T4 [Mass/Vol] 0.62 ng/dL Normal 0.61-1.60 [facility] Comment on above: Performed By: #### 2 4331-1, THYR, CBCA, CMP, 22027-5 #### [facility] ([id number]) [address] [place] [address] TSH 0.97 uIU/mL Normal 0.49-4.67 [facility] Comment on above: Performed By: #### 2 4331-1, THYR, CBCA, CMP, 07831-2 #### [facility] ([id number]) [address] [place] [address] Vitamin D+Metabolites [Mass/ Vol]on 11-30-2023 VITAMIN D 25 HYD TOT 25.5 ng/mL Low 30-100 [facility] Comment on above: Result Comment: Vitamin D status 25 [place] Vitamin D Deficiency <20 ng/mL Insufficiency 20-29 ng/mL Sufficiency 30-100 ng/mL Toxicity >100 ng/mL NOTE: A pediatric reference range has not been established by the tenter feeder of this kit. The [place] [employer] recommends a Vitamin D level of = or >20ng/mL in infants and children. Performed By: #### 2 4331-1, THYR, CBCA, CMP, 66305-9 #### [facility] ([id number]) [address] [place] [address], [address] [place] [address] Covid-19 PCR (CVDTB)on 09-11 SARS-CoV-2 (COVID-19) RNA MEGAN+probe Ql (Unsp spec) Not detected Normal NOT DETECTED [facility] Comment on above: Result Comment: This test is not yet approved or cleared by the [place] FDA. When there are no FDA-approved or cleared tests available, and other criteria are met, FDA can make tests available under an emergency access mechanism called an Emergency Use Authorization (EUA). The EUA for this test is supported by the [place] of Health and Human Service's (HHS's) declaration [...] By: #### C VDTBH #### [facility] [address] [place] [address] Aids Warren [facility]on 09-11 SARS-CoV-2 (COVID-19) RNA MEGAN+probe Ql (Unsp spec) Not detected Normal NOT DETECTED [facility] Comment on above: Result Comment: This test is not yet approved or cleared by the [place] FDA. When there are no FDA-approved or cleared tests available, and other criteria are met, FDA can make tests available under an emergency access mechanism called an Emergency Use Authorization (EUA). The EUA for this test is supported by the [place] of Health and Human Service's (HHS's) declaration [...] By: #### C VDTB #### [facility] [address] [place], [place] [id number] Dr. Adis Warren OBSOLETEon 07-04-2021 OBSOLETE Refill (COURTNEY) MARITA MESSINA ([id number]) 1985 F Date Time Provider Department 07/04/21 [...] Encounter Status:Closed by RAYMOND MEDINA on 07/05/21 [facility] OBSOLETEon 05-27-2021 OBSOLETE Refill ([facility]) MAYURIMARITA ([id number]) 1985 F Date Time Provider Department 05/27/21 [...] Encounter Status:Closed by RAYMOND MEDINA on 05/30/21 [facility] OBSOLETEon 04-26-2021 OBSOLETE Refill ([facility]) MARITA MESSINA ([id number]) 1985 F Date Time Provider Department 04/26/21 RAYOMND MEDINA [facility] During your visit today, we [...] Status:Closed by RAYMOND MEDINA on 04/27/21 Normal [facility] Coding Summary.on 05-31-2019 Coding Summary. CODING DATE: 05/31/2019 [facility] STATUS: Home ([facility]) PAYOR: Medicaid EA DESCRIPTION 0390 LEVEL I [...] Prachi Andres Date Saved: 05/31/2019 06:25 am [facility] Gynecology Office/Clinic Not freddie 05-20-2019 [...] and next steps Ordered: Colposcopy with biopsy [id number] Pathology Tissue Exam Pathology Tissue Exam Follow-up With When Contact Information She BINGHAM CNP In 1 year [email or web address] Additional Instructions: She BINGHAM CNP Only if needed [email or web address] Additional Instructions: Problem List/Past Medical History Ongoing [...] 2: Father and Grandparent. Hyperlipidemia: Father. Normal [facility] Comment on above: Result Comment: Elec tronically Signed By: She BINGHAM CNP.jeanie\Date and Time Signed: 05/20/19 14:48 EDT Coding Summary.on 05-06-2019 Coding Summary. CODING DATE: 05/06/[address] [facility] STATUS: Home (Routine DC) PAYOR: Medicaid EA [...] CphT Date Saved: 05/06/2019 09:14 am Normal [facility] PAP [id number] 05-05-2019 Cytology report Cyto stain Doc (Cvx/Vag) Note Abnormal [facility] Comment on above: Result Comment: TEST S RESULT FLAG UNITS REF RANGE LAB Clinician Provided Cytology Information Source.............Cervix Other..............IUD No. of containers..01 ThinPrep Vial DIAGNOSIS: [A] 01 EPITHELIAL CELL ABNORMALITY. ATYPICAL SQUAMOUS CELLS OF UNDETERMINED SIGNIFICANCE (ASC-US). 01 Satisfactory for evaluation. Endocervical and/or squamous metaplastic cells (endocervical component) are present. 01 Maricarmen Stovall, Teller (ASCP) 01 Jennifer Lopes MD, Pathologist 01 [...] High,A-Abnormal,AA-Critical Abnormal Performed at: 01 [facility] [address] [place] [address] Soraya Cabrera MD, Performed By: #### 1 [id number], [id number] #### [facility] [address] [place] [address] HPV 16+18+31+33+35+39+45 +51+52+56+58+59+68 DNA Probe+sig amp Ql (Cvx) Positive Abnormal Negative [facility] Comment on above: Result Comment: This high-risk HPV test detects thirteen high-risk types (16/18/31/33/35/39/45/51/52/56/58/59/68) without differentiation. Performed at: [address] [id number] MD Rick Lira Performed at: =G [address] [id number] MD Rick Lira Performed By: #### 1 [id number], [id number] #### [facility] [address] [place] [address] Physician Jennifer Crabtree 019 Pathologist review Noe (Unsp spec) [Interp] Note [facility] Comment on above: Result Comment: TEST S RESULT FLAG UNITS REF RANGE LAB Physician Read Pap Note 01 Performed FLAG LEGEND: L-Low Normal,H-High Normal,LL-Alert Low,HH-Alert High <-Panic Low,>-Panic High,A-Abnormal,AA-Critical Abnormal Performed at: 01 WB [facility] [address] [place] [address] Soraya Cabrera MD, Performed at: [facility] [address] [place], [place] [id number] MD Rick Lira Performed By: #### 1 [id number], [id number] #### [place] [facility] [address] [place] [address] Gynecology Office/Clinic Not freddie 04-29-2019 Gynecology Office/Clinic [...] results Ordered: Office Visit Level 3 Est 32477 PAP [id number] w/HPV HR US Pelvis Non-OB Complete 2. 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 Hyperlipidemia: Father. Normal [facility] Comment on above: Result Comment: Elec tronically Signed By: She BINGHAM CNP\Date and Time Signed: 04/29/19 11:36 EDT PAP [id number] 04-29-2019 Gynecological Body Site CERVIX Normal [facility] Comment on above: Performed By: #### 1 [id number], [id number] #### [facility] [address] [place] [address] Other Patient Information IUD Normal [facility] Comment on above: Performed By: #### 1 [id number], [id number] #### [facility] [address] [place] [address] Vital Signs Date Time Vital Sign Value Performing Clinician Facility 10-27-2024 16:10-0500 Body height 157.5 cm Sherie Maria DPM Work Phone: [facility] 10-27-2024 16:10-0500 Body mass index (BMI) [Ratio] 40.42 kg/m2 Sherie Maria DPM Work Phone: [facility] 10-27-2024 16:10-0500 Body weight 100.25 kg Sherie Maria DPM Work Phone: [facility] 09-15-2024 11:03-0500 Body height 157.5 cm Dorcas Peralta [employer] CE[employer] ASSEMBLER Work Phone: [facility] 09-15-2024 11:03-0500 Body mass index (BMI) [Ratio] 40.57 kg/m2 Dorcas Peralta [employer]SEM[employer]ER Work Phone: [facility] 09-15-2024 11:03-0500 Body weight 100.61 kg Dorcas Peralta [employer]ER Work Phone: [facility] 09-15-2024 11:03-0500 Diastolic blood pressure 80 mm[Hg] Dorcas Peralta [employer]ER Work Phone: [facility] 09-15-2024 11:03-0500 Heart rate 104 /min Dorcas Peralta [employer]ER Work Phone: [facility] 09-15-2024 11:03-0500 SaO2% (BldA) [Mass fraction] 97 % Dorcas Peralta [employer]ER Work Phone: [facility] 09-15-2024 11:03-0500 Systolic blood pressure 116 mm[Hg] Dorcas Peralta [employer]ER Work Phone: [facility] 08-04-2024 15:35-0500 Body height 157.5 cm Sherie Maria DPM Work Phone: [facility] 08-04-2024 15:35-0500 Body mass index (BMI) [Ratio] 40.6 kg/m2 Sherie Maria DPM Work Phone: [facility] 08-04-2024 15:35-0500 Body weight 100.7 kg Sherie Maria DPM Work Phone: [facility] 06-16-2024 10:54-0400 Body height 157.5 cm Dorcas Peralta [employer]ER Work Phone: [facility] 06-16-2024 10:54-0400 Body mass index (BMI) [Ratio] 39.36 kg/m2 Dorcas Peralta [employer]ER Work Phone: [facility] 06-16-2024 10:54-0400 Body weight 97.61 kg Dorcas Peralta [employer]SEMBLER Work Phone: [facility] 06-16-2024 10:54-0400 Diastolic blood pressure 76 mm[Hg] Dorcas Peralta [employer]ER Work Phone: [facility] 06-16-2024 10:54-0400 Heart rate 98 /min Dorcas Peralta [employer]ER Work Phone: [facility] 06-16-2024 10:54-0400 SaO2% (BldA) [Mass fraction] 97 % Dorcas Peralta [employer]ER Work Phone: [facility] 06-16-2024 10:54-0400 Systolic blood pressure 120 mm[Hg] Dorcas Peralta [employer]ER Work Phone: [facility] 05-23-2024 10:24-0400 Body mass index (BMI) [Ratio] 38.99 kg/m2 Dorcas Peralta [employer]ER Work Phone: [facility] 05-23-2024 10:24-0400 Body weight 96.71 kg Dorcas Peralta [employer]ER Work Phone: [facility] 05-23-2024 10:24-0400 Diastolic blood pressure 72 mm[Hg] Dorcas Peralta [employer]ER Work Phone: [facility] 05-23-2024 10:24-0400 Heart rate 93 /min Dorcas Peralta [employer]ER Work Phone: [facility] 05-23-2024 10:24-0400 SaO2% (BldA) [Mass fraction] 99 % Dorcas Peralta [employer]ER Work Phone: [facility] 05-23-2024 10:24-0400 Systolic blood pressure 122 mm[Hg] Dorcas Peralta [employer]ER Work Phone: [facility] 05-14-2024 11:30-0400 Body height 157.5 cm Dorcas Peralta [employer]ER Work Phone: [facility] 05-14-2024 11:30-0400 Body mass index (BMI) [Ratio] 39.03 kg/m2 Dorcas Peralta [employer]ER Work Phone: [facility] 05-14-2024 11:30-0400 Body weight 96.8 kg Dorcas Peralta [employer]ER Work Phone: [facility] 05-14-2024 11:30-0400 Diastolic blood pressure 68 mm[Hg] Dorcas Peralta [employer]ER Work Phone: [facility] 05-14-2024 11:30-0400 Heart rate 109 /min Dorcas Peralta [employer]ER Work Phone: [facility] 05-14-2024 11:30-0400 SaO2% (BldA) [Mass fraction] 98 % Dorcas Peralta [employer]ER Work Phone: [facility] 05-14-2024 11:30-0400 Systolic blood pressure 110 mm[Hg] Dorcas Peralta [employer]ER Work Phone: [facility] 05-05-2024 10:18-0400 Body height 157.5 cm Jurgen English MD Work Phone: [facility] 05-05-2024 10:18-0400 Body mass index (BMI) [Ratio] 38.67 kg/m2 Jurgen English MD Work Phone: [facility] 05-05-2024 10:18-0400 Body weight 95.89 kg Jurgen English MD Work Phone: [facility] 05-05-2024 10:18-0400 Diastolic blood pressure 78 mm[Hg] Jurgen English MD Work Phone: [facility] 05-05-2024 10:18-0400 Heart rate 99 /min Jurgen English MD Work Phone: [facility] 05-05-2024 10:18-0400 SaO2% (BldA) [Mass fraction] 99 % Jurgen English MD Work Phone: [facility] 05-05-2024 10:18-0400 Systolic blood pressure 118 mm[Hg] Jurgen English MD Work Phone: [facility] 11-10-2019 14:27-0500 BMI (Body Mass Index) 35.43 kg/m2 [place], [place] 11-10-2019 14:27-0500 Body Temperature 97.59 [degF] [place], [place] 11-10-2019 14:27-0500 Body weight 90.72 kg [place], [place] 11-10-2019 14:27-0500 BP Diastolic 65 mm[Hg] [place] 11-10-2019 14:27-0500 BP Systolic 102 mm[Hg] [place] 11-10-2019 14:27-0500 Height 160 cm [place], [place] 11-10-2019 14:27-0500 Pulse Oximetry 99 % [place], [place] Encounters Encounter Date Encounter Type Care Provider Facility Start: 12-08-2024 End: 12-08-2024 ambulatory Sana Radford MD Facility: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-CAR SEALER Work Phone: [facility] Start: 11-03-2024 End: 11-03-2024 Refill Nehal Alvarado LPN Work Phone: [facility] Comment on above: Obstructive sleep ap deann syndrome Start: 10-27-2024 End: 10-27-2024 Office outpatient visit 15 minutes Sherie Maria DPM Work Phone: [facility] Comment on above: Dermatophytosis of n ail (Primary Dx); Dystrophic nail; Pain around toenail, right foot; Pain around toenail, left foot Start: 10-27-2024 End: 10-27-2024 ambulatory SHERIE MARIA Not Available Start: 10-27-2024 End: 10-27-2024 Bamboo flowsheet Sherie Maria DPM Work Phone: [facility] Start: 10-27-2024 End: 10-27-2024 Bamboo flowsheet Sherie Maria DPM Work Phone: [facility] Start: 10-13-2024 End: 10-13-2024 ambulatory Caitlyn Sparrow MD Facility:[facility] Start: 09-22-2024 End: 09-22-2024 Orders Only Dorcas Peralta [employer] ASSEMBLER Work Phone: [facility] Comment on above: Obstructive sleep ap deann syndrome Start: 09-20-2024 End: 09-22-2024 Alonzo Carlson MD Work Phone: [facility] Comment on above: Tremor (Primary Dx) Start: 09-15-2024 End: 09-15-2024 Bamboo flowsheet Dorcas Peralta [employer] ASSEMBLER Work Phone: [facility] Start: 09-15-2024 End: 09-15-2024 Bamboo flowsheet Dorcas Peralta [employer] ASSEMBLER Work Phone: [facility] Start: 09-15-2024 End: 09-15-2024 ambulatory DORCAS PERALTA Not Available Start: 09-15-2024 End: 09-15-2024 Office outpatient visit 25 minutes Dorcas Peralta [employer] ASSEMBLER Work Phone: [facility] Comment on above: Morbid (severe) obes ity due to excess calories (CMS/HCC) (Primary Dx); BOGDAN (obstructive sleep apnea); Hepatic steatosis; Mixed hyperlipidemia (CMS/HCC); Elevated liver enzymes Start: 09-01-2024 End: 09-01-2024 ambulatory Caitlyn Sparrow MD Facility: [facility] Start: 08-13-2024 End: 08-13-2024 ambulatory Caitlyn Sparrow MD Facility:[facility] Start: 08-04-2024 End: 08-04-2024 Office outpatient new 30 minutes Sherie Maria DPM Work Phone: [facility] Comment on above: Tinea pedis of both feet (Primary Dx); Chronic dermatitis of feet; Dermatophytosis of nail; Pain around toenail, right foot; Pain around toenail, left foot Start: 08-04-2024 End: 08-04-2024 ambulatory SHERIE MARIA Not Available Start: 08-04-2024 End: 08-04-2024 Bamboo flowsheet Sherie Maria DPM Work Phone: [facility] Start: 08-04-2024 End: 08-04-2024 Bamboo flowsheet Sherie Maria DPM Work Phone: [facility] Start: 07-04-2024 End: 07-04-2024 ambulatory [facility] Start: 06-16-2024 End: 06-16-2024 Bamboo flowsheet Dorcas Peralta NP Work Phone: [facility] Start: 06-16-2024 End: 06-16-2024 Bamboo flowsheet Dorcas Peralta NP Work Phone: [facility] Start: 06-16-2024 End: 06-16-2024 Office outpatient visit 25 minutes Dorcas Peralta NP Work Phone: [facility] Comment on above: Morbid (severe) obes ity due to excess calories (CMS/HCC) (Primary Dx); Bipolar disorder in full remission, most recent episode unspecified type ([facility]/HCC); Mixed dyslipidemia ([facility]/HCC) Start: 06-16-2024 End: 06-16-2024 ambulatory DORCAS PERALTA Not Available Start: 06-09-2024 End: 06-10-2024 Telephone encounter Marita Richardson RN [facility] Comment on above: Cholesterol labs Start: 05-26-2024 End: 05-29-2024 Refill Nehal Jenny LUNAN Work Phone: [facility] Comment on above: Gastroesophageal ref lux disease without esophagitis Rash (Primary Dx); Obesity, Class II, BMI 35-39.9 Start: 05-23-2024 End: 05-23-2024 Office outpatient visit 25 minutes Dorcas Peralta NP Work Phone: [facility] Comment on above: Folliculitis (Primar y Dx); Obesity, Class II, BMI 35-39.9; Morbid (severe) obesity due to excess calories (CMS/HCC); Gastro-esophageal reflux disease without esophagitis; Body mass index (BMI) 39.0-39.9, adult; Bipolar disorder, unspecified ([facility]) Start: 05-23-2024 End: 05-23-2024 ambulatory DORCAS PERALTA Not Available Start: 05-22-2024 End: 05-22-2024 Orders Only Dorcas Peralta NP Work Phone: [facility] Comment on above: Dermatitis (Primary Dx) Start: 05-19-2024 End: 05-19-2024 ambulatory [facility] Start: 05-19-2024 End: 05-19-2024 [facility] Start: 05-14-2024 End: 05-14-2024 Bamboo flowsheet Dorcas Peralta [employer] CE[employer] AND BATTERY ASSEMBLER Work Phone: [facility] Start: 05-14-2024 End: 05-14-2024 Bamboo flowsheet Dorcas Peralta [employer] ASSEMBLER Work Phone: [facility] Start: 05-14-2024 End: 05-14-2024 Office outpatient new 45 minutes Dorcas Peralta [employer] CE[employer]Y ASSEMBLER Work Phone: [facility] Comment on above: Obesity, Class II, B DE 35-39.9 (Primary Dx); Encounter to establish care Start: 05-14-2024 End: 05-14-2024 ambulatory DORCAS PERALTA Not Available Start: 05-05-2024 End: 05-05-2024 Office outpatient new 45 minutes Luiza Webb DO Work Phone: [facility] Comment on above: Hypertriglyceridemia (Primary Dx); Sinus tachycardia; Chest pain, unspecified type; Palpitation; Vapes nicotine containing substance Start: 05-05-2024 End: 05-05-2024 ambulatory [facility] Start: 05-02-2024 End: 05-02-2024 Chart abstracting Scanning Provider External [facility] Start: 03-24-2024 End: 03-24-2024 ambulatory CAITLYN [facility] Start: 03-23-2024 End: 03-24-2024 Emergency department patient visit LUIZA Amy [facility] Start: 03-23-2024 End: 03-23-2024 Emergency department patient visit CAITLYN [facility] Start: 03-10-2024 End: 04-10-2024 ambulatory MISSION VIEJO Ginger [facility] Start: 03-08-2024 End: 03-08-2024 Emergency department patient visit CAITLYN [facility] Start: 03-03-2024 End: 03-03-2024 ambulatory Caitlyn Sparrow MD Facility:[facility] Start: 02-29-2024 End: 02-29-2024 ambulatory [facility] Start: 02-18-2024 End: 02-18-2024 ambulatory [facility] Start: 02-11-2024 End: 03-10-2024 ambulatory LEONIDAS Miles [facility] Start: 01-28-2024 End: 01-28-2024 ambulatory Caitlyn Sparrow MD Facility:[facility] Start: 01-23-2024 End: 02-09-2024 ambulatory [facility] Start: 11-30-2023 End: 11-30-2023 ambulatory [facility] Start: 11-30-2023 Encounter for genera l adult medical examination without abnormal findings CAITLYN FLOREZKYARA [facility] Start: 08-09-2023 Refill Raymond Pierre ph, MD Work Phone: Neurology Comment on above: Refill Request Start: 03-09-2023 Refill Raymond Pierre ph, MD Work Phone: Neurology Comment on above: Refill Request Start: 08-24-[address] MUNIRA DEAL [facility] ty:[facility]1 Start: 07-11-2022 End: 07-12-[address] MUNIRA DEAL Facility: Start: 05-22-2022 Get Medical Advice Raymond Medina MD Work Phone: Neurology Comment on above: Med refill Start: 03-08-2022 End: 03-09-[address] CAITLYN SPARROW Facility:[facility] Start: 02-23-2022 End: 02-23-2022 ambulatory Karel Elaine Other [facility] Other Start: 02-23-2022 Telephone encounter Karel Elaine [facility] Start: 01-09-2022 Refill Raymond Pierre ph, MD Work Phone: Neurology Comment on above: Refill Request Start: 01-04-2022 End: 01-04-2022 ambulatory Karel Elaine Other [facility] Other Start: 01-04-2022 Telephone encounter Karel Elaine [facility] Start: 12-12-2021 End: 12-12-2021 ambulatory Karel Elaine Other [facility] Other Start: 12-12-2021 Telephone encounter Karel Elaine [facility] Start: 11-30-2021 End: 12-01-[address] MUNIRA DEAL Facility:[facility] Start: 11-16-2021 End: 11-16-2021 ambulatory Karel Elaine Other [facility] Other Start: 11-16-2021 Telephone encounter Karel Elaine [facility] Start: 10-11-2021 Encounter for prepro cedural laboratory examination DR MUNIRA DEAL [facility] Start: 10-11-2021 End: 10-11-[address] [...] 08-03-2021 End: 08-03-2021 ambulatory Karel Elaine Other [facility] Other Start: 08-03-2021 Telephone encounter Karel Elaine [facility] Start: 07-28-2021 End: 07-28-2021 ambulatory Karel Elaine Other [facility] Other Start: 07-28-2021 Telephone encounter Karel Elaine [facility] Start: 11-10-2019 End: 11-11-2019 Patient encounter procedure BRADLEY SIMMONS [facility] Start: 11-10-2019 End: 11-10-2019 Subsequent hospital visit by physician Bradley Simmons Work Phone: [facility] Comment on above: Arrived Procedures Date Procedure Procedure Detail Performing Clinician Start: 10-03-2021 Adult depression screening assessment Raymond Medina MD Work Phone: Plan of Treatment Date Care Activity Detail Author Start: 2036 Shingles Vaccine (1 of 2) Shingles Vaccine (1 of 2) [place], [place] Start: 08-19-2025 ambulatory Ambulatory Facility:[facility] Start: 06-10-2025 Influenza vaccination Influenza Vaccine (#1) [facility] Comment on above: Postponed from 05/11/2024 (Patient Refus ed) Start: 05-19-2025 Adult BMI Screening Adult BMI Screening [facility] Start: 05-19-2025 Tobacco Screening Tobacco Screening [facility] Start: 05-05-2025 Adult BMI Screening Adult BMI Screening [facility] Start: 05-05-2025 Tobacco Screening Tobacco Screening [facility] Start: 03-23-2025 Adult BMI Screening Adult BMI Screening [facility] Start: 03-23-2025 Tobacco Screening Tobacco Screening [facility] Start: 01-26-2025 End: 01-26-2025 Patient encounter procedure 01/26/2025 4:00 PM EDT Office Visit [facility] [address] [facility] [place] [phone] Sherie Maria, DPM [address] [place] [address] [facility] Start: 12-15-2024 End: 12-15-2024 Patient encounter procedure 12/15/2024 11:00 AM EDT Office Visit [facility] [address] [place] [phone] Dorcas Peralta NP [address] [place] [address] [facility] Start: 11-08-2024 Medicare Annual Wellness (AWV) Medicare Annual Wellness (AWV) [facility] Start: 10-27-2024 End: 10-27-2024 Patient encounter procedure [facility] Comment on above: Arrived Start: 09-15-2024 End: 09-15-2024 Patient encounter procedure 09/15/2024 11:00 AM EST Office Visit [facility] [address] [place] [phone] RlDorcas child, [employer] [address] [place] [address] [facility] Start: 09-08-2024 End: 06-09-2025 Alanine aminotransferase [Enzymatic activity/volume] in Serum or Plasma ALT Lab Routine Medication monitoring encounter Other hyperlipidemia Elevated triglycerides with high cholesterol Elevated LDL cholesterol level Severe obesity (BMI 35.0-39.9) with comorbidity (CMS-HCC) Other fatigue Expected: 09/08/2024 (Approximate), Expires: 06/09/2025 [employer] [facility] Comment on above: Expected: 09/08/2024 (Approximate), Expi res: 06/09/2025 Start: 09-08-2024 End: 06-09-2025 Aspartate aminotransferase [Enzymatic activity/volume] in Serum or Plasma AST Lab Routine Medication monitoring encounter Other hyperlipidemia Elevated triglycerides with high cholesterol Elevated LDL cholesterol level Severe obesity (BMI 35.0-39.9) with comorbidity (CMS-HCC) Other fatigue Expected: 09/08/2024 (Approximate), Expires: 06/09/2025 [facility] Comment on above: Expected: 09/08/2024 (Approximate), Expi res: 06/09/2025 Start: 09-08-2024 End: 06-09-2025 Cholesterol in LDL [Mass/volume] in Serum or Plasma LDL cholesterol, direct Lab Routine Medication monitoring encounter Other hyperlipidemia Elevated triglycerides with high cholesterol Elevated LDL cholesterol level Severe obesity (BMI 35.0-39.9) with comorbidity (CMS-HCC) Other fatigue Expected: 09/08/2024 (Approximate), Expires: 06/09/2025 [employer] Work Phone: Comment on above: Expected: 09/08/2024 (Approximate), Expi res: 06/09/2025 Start: 09-08-2024 End: 06-09-2025 Triglyceride [Mass/volume] in Serum or Plasma Triglycerides Lab Routine Medication monitoring encounter Other hyperlipidemia Elevated triglycerides with high cholesterol Elevated LDL cholesterol level Severe obesity (BMI 35.0-39.9) with comorbidity (CMS-HCC) Other fatigue Expected: 09/08/2024 (Approximate), Expires: 06/09/2025 [facility] Comment on above: Expected: 09/08/2024 (Approximate), Expi res: 06/09/2025 Start: 08-04-2024 End: 08-04-2024 Patient encounter procedure 08/04/2024 3:30 PM EST Office Visit [facility] [address] [place] [phone] Sherie Maria DPM [address] [place] [address] Arrived [facility] Comment on above: Arrived Start: 06-16-2024 End: 06-16-2024 Patient encounter procedure [facility] Comment on above: Arrived Start: 05-14-2024 End: 05-14-2024 Patient encounter procedure 05/14/2024 11:30 AM EDT Office Visit [facility] [address] [place] [phone] Dorcas Peralta NP [address] [place] [address] Arrived [facility] Comment on above: Arrived Start: 05-11-2024 COVID-19 Vaccine ( season) COVID-19 Vaccine ( season) [facility] Start: 05-11-2024 COVID-19 Vaccine ( season) COVID-19 Vaccine ( season) [facility] Start: 05-11-2024 Influenza vaccination [facility] Start: 05-05-2024 End: 05-05-2025 Echo complete W/O contrast Echo complete W/O contrast Echocardiography Routine Chest pain, unspecified type Expected: 05/05/2024, Expires: 05/05/2025 [facility] Comment on above: Expected: 05/05/2024, Expires: Start: 05-05-2024 End: 05-05-2025 Exercise stress test study Stress test (exercise only) [facility] Services Routine Chest pain, unspecified type Expected: 05/05/2024, Expires: 05/05/2025 [facility] Comment on above: Expected: 05/05/2024, Expires: Start: 05-05-2024 End: 05-05-2024 Patient encounter procedure 05/05/2024 10:30 AM EDT Office Visit [facility] [address] [place] [address] Luiza Webb, [address] [facility] [place] [address] Jurgen English MD [address] [place], [place] [phone] [facility] Start: 05-11-2023 COVID-19 Vaccine ( season) COVID-19 Vaccine () [facility] Start: 05-11-2023 Influenza vaccination [facility] Start: 10-03-2022 Adult depression screening assessment DEPRESSION SCREENING [facility] Start: 09-10-2022 DEPRESSION ASSESSMENT DEPRESSION ASSESSMENT [facility] Start: 05-11-2022 Influenza vaccination [facility] Start: 03-29-2020 End: 03-29-2020 Appointment 03/29/2020 Appointment General Surgery Bradley Simmons MD [address] [place], [place] [id number] [facility] Start: 05-11-2019 Influenza vaccination Flu vaccine (#1) [place], [place] Start: 2016 HPV TESTING HPV TESTING [facility] Start: 2016 Screening for malignant neoplasm of cervix [facility] Start: 2007 Cervical cancer screen Cervical cancer screen [place], [place] Start: 2007 PAP TESTING PAP TESTING [facility] Start: 2007 Screening for malignant neoplasm of cervix [facility] Start: 2005 Urine microalbumin profile DTAP,TDAP,TD (1 - Tdap) [facility] Start: 2004 Adult BMI Follow Up Plan Adult BMI Follow Up Plan [facility] Start: 2004 HEPATITIS C SCREENING HEPATITIS C SCREENING [facility] Start: 2004 Hepatitis C screening Hepatitis C Screening [facility] Start: 2004 HIV SCREENING HIV SCREENING [facility] Start: 2004 HIV screening HIV Screening [facility] Start: 2001 HIV screen HIV screen [place], [place] Start: 1998 Depression Screening Depression Screening [facility] Start: 12-25-1997 DTaP,Tdap and Td Vaccines (6 - Tdap) DTaP,Tdap and Td Vaccines (6 - Tdap) [facility] Start: 12-25-1997 Urine microalbumin profile DTaP,Tdap,Td Vaccine (6 - Tdap) [facility] Start: 1997 DTaP/Tdap/Td vaccine (1 - Tdap) DTaP/Tdap/Td vaccine (1 - Tdap) [place], [place] Start: 1991 COVID-19 VACCINE (1) COVID-19 VACCINE (1) [facility] Start: 1987 Varicella vaccine (1 of 2 - 2-dose childhood series) Varicella vaccine (1 of 2 - 2-dose childhood series) [place], [place] Start: 01-14-1987 COVID-19 VACCINE (#1) COVID-19 VACCINE (#1) [facility] Start: 1986 HEPATITIS B (1 of 3 - 3-dose series) HEPATITIS B (1 of 3 - 3-dose series) [facility] Start: 1986 Medicare Annual Wellness (AWV) Medicare Annual Wellness (AWV) [facility] Start: 1986 Tobacco Counseling Tobacco Counseling [facility] [employer] [facility] End: 05-05-2025 Hepatic function 2000 panel - Serum or Plasma Hepatic function panel Lab Routine Hypertriglyceridemia 1 Occurrences starting 05/05/2024 until 05/05/2025 [facility] Comment on above: 1 Occurrences starting 05/05/2024 until 05/05/2025 End: 05-05-2025 Lipid 1996 panel - Serum or Plasma Lipid profile Lab Routine Hypertriglyceridemia 1 Occurrences starting 05/05/2024 until 05/05/2025 [facility] Work Phone: Comment on above: 1 Occurrences starting 05/05/2024 until 05/05/2025 Immunizations Immunization Date Immunization Notes Care Provider [facility] 05-15-2023 Influenza, injectabl e, Madin Marianna Canine Kidney, quadrivalent with preservative Dorcas Kampfer [employer] Work Phone: [facility] 05-15-2023 influenza virus vaccine, unspecified formulation Jurgen English MD Work Phone: [facility] 07-13-2022 Influenza, injectabl e, Madin Marianna Canine Kidney, preservative free, quadrivalent Dorcas Kampfer [employer] Work Phone: [facility] 09-13-2021 influenza, injectabl e, quadrivalent, preservative free Dorcas Kampfer [employer] Work Phone: [facility] 08-22-2019 influenza, injectabl e, quadrivalent, contains preservative Dorcas Kampfer [employer] Work Phone: [facility] 08-22-2019 influenza virus vaccine, unspecified formulation Raymond Medina MD Work Phone: [facility] 05-25-1998 hepatitis B vaccine, pediatric or pediatric/adolescent dosage Dorcas Kampfer [employer] Work Phone: [facility] 12-24-1997 hepatitis B vaccine, pediatric or pediatric/adolescent dosage Dorcas Kampfer [employer] Work Phone: [facility] 12-24-1997 TD(adult) unspecifie d formulation Dorcas Kampfer [employer] Work Phone: [facility] 11-19-1997 hepatitis B vaccine, pediatric or pediatric/adolescent dosage Dorcas Kampfer [employer] Work Phone: [facility] 11-19-1997 measles, mumps and rubella virus vaccine Dorcas Kampfer [employer] Work Phone: [facility] 10-26-1987 diphtheria, tetanus toxoids and pertussis vaccine Dorcas Kampfer [employer] Work Phone: [facility] 10-26-1987 measles, mumps and rubella virus vaccine Dorcas Kampfer [employer] Work Phone: [facility] 10-26-1987 trivalent poliovirus vaccine, live, oral Dorcas Kampfer [employer] Work Phone: [facility] 02-17-1987 diphtheria, tetanus toxoids and pertussis vaccine Dorcas Kampfer [employer] Work Phone: [facility] 02-17-1987 trivalent poliovirus vaccine, live, oral Dorcas Kampfer [employer] Work Phone: [facility] 1986 diphtheria, tetanus toxoids and pertussis vaccine Dorcas Kampfer [employer] Work Phone: [facility] 1986 trivalent poliovirus vaccine, live, oral Dorcas Kampfer [employer] Work Phone: [facility] 1986 diphtheria, tetanus toxoids and pertussis vaccine Dorcas Kampfer [employer] Work Phone: [facility] 1986 trivalent poliovirus vaccine, live, oral Dorcas Kampfer [employer] Work Phone: [facility] Payers Date Payer Category Payer Medicare HMO [employer] MED[employer]ARE [id number] 2024 Medicare [id number] 2024 Private Health Insurance 1201-2019 Medicaid [place] [id number] 2019-Present [phone] [address] [place] [address] Medicaid [id number] 2019 Medicaid [id number] 2019 Medicare MEDICARE MEDICAR E A AND B [id number] 2019-Present [phone] [place] [address] Medicare [id number] 2019 Medicare [id number] [id number] .[id number] 2014 Medicaid MEDICAID [facility] DEPT OF JOB xxxxxxxxxxxx 2014-Present [phone] [address] [place] [address] xxxxxxxxxxxx [id number] 2014 Medicare MEDICARE MEDICAR E PART A AND B xxxxxxxxxxx 2014-Present [phone] [address] [address] [place] [address] xxxxxxxxxxx [id number] .[id number] 1986 Unknown [id number] 2.16.840.1.039280.3.579.2 .177 1986 Unknown [id number] 2.16.840.1.620444.3.579.2 .593 1986 Unknown [id number] 2.16.840.1.080962.3.579.2 .593 1986 Unknown [id number] 2.16.840.1.319872.3.579.2 .593 1986 Unknown [id number] 2.16.840.1.760851.3.579.2 .593 1986 Unknown [id number] 2.16.840.1.853732.3.579.2 .593 1986 Unknown [id number] 2.16.840.1.468682.3.579.2 .593 1986 Unknown [id number] 2.16.840.1.938192.3.579.2 .593 1986 Unknown [id number] 2.16.840.1.407531.3.579.2 .593 1986 Unknown [id number] 2.16.840.1.126822.3.579.2 .593 1986 Unknown [id number] 2.16840.1.311098.3.579.2 .1259 1986 Unknown [id number] 2.16.840.1.771175.3.579.2 .1259 1986 Unknown [id number] 2.16.840.1.122806.3.579.2 .1259 1986 Unknown [id number] 2.16.840.1.095789.3.579.2 .1259 1986 Unknown [id number] 2.16840.1.518331.3.579.2 .1259 1986 Unknown [id number] 2.16.840.1.010434.3.579.2 .1259 1986 Unknown [id number] 2.16.840.1.773143.3.579.2 .1286 1986 Unknown [id number] 2.16.840.1.127298.3.579.2 .1286 1986 Unknown [id number] 2.16.840.1.905271.3.579.2 .1286 1986 Unknown [id number] 2.16.840.1.715667.3.579.2 .1285 1986 Unknown [id number] 2.16.840.1.913201.3.579.2 .1285 1986 Unknown [id number] 2.16.840.1.668627.3.579.2 .1285 1986 Unknown [id number] 2.16.840.1.139957.3.579.2 .1285 1986 Unknown [id number] 2.16.840.1.562763.3.579.2 .1285 1986 Unknown [id number] 2.16.840.1.899851.3.579.2 .1285 1986 Unknown [id number] 2.16.840.1.053207.3.579.2 .1285 1986 Unknown [id number] 2.16.840.1.426018.3.579.2 .1285 1986 Unknown [id number] 2.16.840.1.527098.3.579.2 .1285 1986 Unknown [id number] 2.16.840.1.628442.3.579.2 .1285 1986 Unknown [id number] 2.16.840.1.930124.3.579.2 .1285 1986 Unknown [id number] 2.16.840.1.737335.3.579.2 .1285 1986 Unknown [id number] 2.16.840.1.084716.3.579.2 .1285 1986 Unknown [id number] 2.16.840.1.512386.3.579.2 .1285 1986 Unknown [id number] 2.16.840.1.731067.3.579.2 .1285 1986 Unknown [id number] 2.16.840.1.133489.3.579.2 .1285 1986 Unknown [id number] 2.16.840.1.456267.3.579.2 .1286 1986 Unknown [id number] 2.16.840.1.906550.3.579.2 .196 1986 Unknown [id number] 2.16.840.1.453821.3.579.2 .196 1986 Unknown [id number] 2.16.840.1.395608.3.579.2 .196 1986 Unknown [id number] 2.16.840.1.714742.3.579.2 .196 1986 Unknown [id number] 2.16.840.1.205530.3.579.2 .196 1986 Unknown [id number] 2.16.840.1.223462.3.579.2 .196 1986 Unknown [id number] 2.16.840.1.751000.3.579.2 .196 1986 Unknown [id number] 2.16.840.1.149090.3.579.2 .196 1959 Medicaid [id number] 1959 Medicare [id number] Social History Date Type Detail Facility Start: 11-25-2018 End: 11-10-2019 Tobacco smoking status NHIS Never smoker [facility] Start: 11-10-2019 End: 05-19-2024 Alcohol intake Current drinker of alcohol (finding) [place], [place] Start: 11-10-2019 Alcohol Comment [place], [place] Start: 1985 Sex Assigned At Not on file [place], [place] Start: 11-25-2018 End: 05-05-2024 Tobacco use and exposure Smokeless tobacco non-user [facility] Start: 11-25-2018 History SDOH Alcohol Comment [facility] Start: 04-21-2019 End: 10-21-2020 Sex Assigned At [facility] Start: 04-21-2019 End: 10-21-2020 History of Social function [facility] Adult Depression Screening Assessment 4 [facility] Start: 05-05-2024 End: 05-14-2024 Tobacco smoking status NHIS Smokes tobacco daily [facility] Start: 05-14-2024 Tobacco Comment Vapes daily [facility] Start: 05-14-2024 Alcohol Comment caffeine intake: 12 oz coffee daily [facility] Tobacco smoking stat us NHIS Tobacco smoking consumption unknown [facility] Do you belong to any clubs or organizations such as muslim groups, unions, fraternal or athletic groups, or [...] Tobacco: Every Day Vaping/E-cigarettes Smokeless Tobacco: Never [facility] Start: 01-20-2022 Alcohol Comment socially [facility] Start: 04-15-2015 Sex Female (finding) [facility] Medical Equipment Procedure Code Equipment Code Equipment Origin al Text Equipment Identifier Dates Mesh Pco Vntrl P tch 8.6cm [facility] [id number] - Sn/A - [id number] Start: 04-01-2019 Clinical Notes 09-15-2021 to [...] (six) hours if needed, Disp: , Rfl: Milford-3 Fatty Acids (FISH OIL OMEGA-3 PO), Take [...] Sherie Maria DPM documented in this encounter [facility] 10-27-2024 Instructions Sherie Maria DPM - 10/27/2024 4:15 PM EST Topical care measures as noted documented in this encounter [facility] 09-15-2024 History of Present illness [...] have her cholesterol levels checked tomorrow. Her real estate executive assistant has expressed concern over her fluctuating liver enzyme levels and has ordered a retest. She has not undergone any extensive workup for her liver, only lab tests. Her liver enzyme levels have shown variability in the past. She is uncertain if she has fatty liver disease. She has been prescribed a bahamian for a toenail fungus, which has proven [...] tablet 1 tablet, Every 6 hours PRN Milford-3 Fatty Acids (FISH OIL OMEGA-3 PO) 2 [...] agreeable to this. documented in this encounter [facility] 08-11-2024 Note Patient Education Ma terials Name: MayuriMarita mariscale Current Date: 08/11/2024 16:18:15 [facility] : 1985 The following sheet(s) are [...] breast self-exam (BSE). These experts include the [employer] and the [place] [employer]nec[employer]. Some experts [...] means they are not cancer. ? [employer]. All rights reserved. This information is not [...] prevent urine, gas, or stool leakage. ? [id number] [employer] All rights reserved. This information is not intended as a substitute fo (more content not included)... [facility] 08-04-2024 History of Present illness Narrative Subjective Patient ID: Marita Messina is a 39 y.o. female who presents for Fungus (Pt is here today for fungal nails, first noticed about 1 yr ago. Also athlete's foot BL. She has tried OTC topical fungal bahamian, no change noted. /SS:8 ). HPI Initial [...] and not practical. Patient typically has toenail bahamian on a constant basis. Also complains of [...] (six) hours if needed, Disp: , Rfl: Milford-3 Fatty Acids (FISH OIL OMEGA-3 PO), Take [...] most recent hepatic enzymes elevated (May 2024). Raymond agreement to proceed with topical care measures: [...] Sherie Maria DPM documented in this encounter [facility] 08-04-2024 Instructions Sherie Maria DPM - 08/04/2024 3:30 PM EST As noted documented in this encounter [facility] 06-16-2024 History of Present illness [...] 1 tablet, Oral, Every 6 hours PRN Milford-3 Fatty Acids (FISH OIL OMEGA-3 PO) 2 [...] PCAB accredited and rated highly by the [employer]. Prescription sent to pharmacy Bipolar disorder in full remission, most recent episode unspecified type (CMS/HCC) -Followed by psych Mixed dyslipidemia (CMS/HCC) -Followed by cardiology documented in this encounter [facility] 06-09-2024 Miscellaneous Notes Images from the original note were not included. Pt called back as she stated that received a msg from re: her recent cholesterol labs. Reviewed recent cholesterol labs and result notes/orders from [facility] as charted below: Jennifer Zamora, PharmZuhair 06/09/2024 2:05 PM EDT Back to Top [...] Reviewed. Agree to plan. Thanks! Jennifer Zamora, PharmD 05/27/2024 11:43 AM EDT MS - [...] Pt verbalized understanding and was agreeable to [facility] orders/'s recommendations. Pt requested that script for Repatha be sent to [facility] in [place] and stated that she will get the Fish Oil OTC. Above orders routed to the [facility] to sign and send.-SRS documented in this encounter [facility] 06-09-2024 Telephone encounter Note Images from the original note were not included. Pt called back as she stated that received a msg from re: her recent cholesterol labs. Reviewed recent cholesterol labs and result notes/orders from [facility] as charted below: Jennifer Zamora, Cheryl 06/09/2024 2:05 PM EDT Back to [facility] [place] per [facility] for pt to [...] that script for Repatha be sent to [facility] in [place] and stated that she will get the Fish Oil OTC. Above orders routed to the [facility] to sign and send.-SRS [facility] 05-23-2024 History of Present illness Narrative Images [...] Morbid (severe) obesity due to excess calories ([facility]) Gastro-esophageal reflux disease without esophagitis Body mass index (BMI) 39.0-39.9, adult Bipolar disorder, unspecified ([facility]) documented in this encounter [facility] 05-22-2024 History of Present illness Narrative eduardo documented in this encounter [facility] 05-14-2024 History of Present illness [...] to be refilled. documented in this encounter [facility] 05-05-2024 History of Present illness Narrative Marita Messina Date of visit: 05/05/2024 Date of : 1985 Age: 38 y.o. Patient Active Problem List Diagnosis Gastroesophageal reflux disease without esophagitis Obstructive sleep apnea syndrome Obesity, Class II, BMI 35-39.9 Other fatigue Severe obesity (BMI 35.0-39.9) with comorbidity ([facility]) Allergies Allergen Reactions Vicodin [Hydrocodone-Acetaminophen] Hives Current [...] Chief Complaint Patient presents with New Patient [employer] [facility], SINUS TACHY, NO PREVIOUS CARDIO, [...] Obstructive sleep apnea hypopnea, mild Pulmonary embolism ([facility]) history of , approx 2013 Sleep apnea Visual impairment contacts, glasses No data recorded No data recorded No data recorded Past Surgical History: Procedure Laterality Date DENTAL SURGERY wisdom teeth HERNIA REPAIR HYSTERECTOMY PARTIAL LASER ABLATION CONDYLOMA CERVICAL / VULVAR REPAIR HERNIA INCISIONAL VENTRAL MESH N/A 04/01/2019 Performed by Luis A Gr DO at [facility] Family History Problem Relation [...] 1. Sinus tachycardia - [facility] [place], [place] 2. Chest pain, unspecified type - [facility] [place], [place] - Stress test (exercise only); Future - Echo complete W/O contrast; Future 3. Palpitation - [facility] [place], [place] 4. Hypertriglyceridemia - Lipid profile; Future [...] SPARROW MD Referring Physician: Caitlyn Sparrow MD [address] [place] [address] documented in this encounter [facility] 08-09-2023 Miscellaneous Notes Please see pended medication. Pharmacy linked. Last ordered 03/09/2023. Ashtyn Perez MA documented in this encounter [facility] 03-09-2023 Miscellaneous Notes Please see pended medication. Pharmacy linked. Last ordered 10/25/2022. Ashtyn Perez MA documented in this encounter [facility] 07-11-2022 Note CONSULTATION PROCEDURE DATE: [...] up in the office. [facility] 07-11-2022 Note CONSULTATION CONSULTATION DATE: 07/11/2022 CHIEF COMPLAINT: Trapezius and upper back pain. HISTORY OF PRESENT ILLNESS: This is a 36-year-old female who is known to the [facility]. The patient, in October of this year, had a rhizotomy radiofrequency ablation along her cervical spine. This has afforded the patient significant improvement. 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 CC: Caitlyn Sparrow M.D. [facility] 05-23-2022 Miscellaneous Notes Please see pended medication. Pharmacy linked. Last ordered 10/20/2021. Ashtyn Perez Ma documented in this encounter [facility] 03-08-2022 Note CONSULTATION CONSULTATION DATE: [...] agree with plan of care. [facility] Signed and Approved by: LUDA RODRIGUEZ . 03/09/2022 13:38:00 [facility] 01-09-2022 Miscellaneous Notes Please see pended medication. Pharmacy linked. Last ordered 07/05/2021. Ashtyn Perez Ma documented in this encounter [facility] 11-30-2021 Note CONSULTATION PAIN MANAGEMENT [...] patient agrees to this plan. [facility] Signed and Approved by: LUDA RODRIGUEZ . 12/01/2021 12:26:00 [facility] 09-15-2021 Note The [place], [place] NAME: MARITA MESSINA DATE OF : MEDICAL REC#: [id number] BARTENDER MANAGER: [id number] LILIANA DAWKINS ADMIT DATE: 09/15/2021 12:21:00 SVP CHIEF MARKETING OFFICER DATE: 09/16/2021 11:00 DICTATING PHYSICIAN: LUDA RODRIGUEZ [...] Luda Rodriguez CNP on 09/25/2021 11:23 PM [facility] Signed and Approved by: LUDA RODRIGUEZ . 09/25/2021 23:23:00 [facility] Evaluation note Diagnosis Excessive physiologic tremor Essential and other specified forms of tremor [facility] Other Evaluation note* Diagnosis Daytime sleepiness Narcolepsy without cataplexy [facility] Diagnosis Daytime sleepiness Narcolepsy without cataplexy [facility] Diagnosis Daytime sleepiness Narcolepsy without cataplexy [facility] Diagnosis Morbid (severe) obesity due to excess calories (CMS/HCC)- Primary Bipolar disorder in full remission, most recent episode unspecified type (CMS/HCC) Mixed dyslipidemia (CMS/HCC) documented in this encounter [facility]* Diagnosis Tinea pedis of both feet- Primary Chronic dermatitis of feet Contact dermatitis and other eczema, due to unspecified cause Dermatophytosis of nail Pain around toenail, right foot Pain around toenail, left foot documented in this encounter [facility] HealthcareEvaluation note* Diagnosis Dermatitis- Primary Contact dermatitis and other eczema, due to unspecified cause documented in this encounter [facility] HealthcareEvaluation note* Diagnosis Folliculitis- Primary Other specified disease of hair and hair follicles Obesity, Class II, BMI 35-39.9 Morbid (severe) obesity due to excess calories (CMS/HCC) Gastro-esophageal reflux disease without esophagitis Body mass index (BMI) 39.0-39.9, adult Bipolar disorder, unspecified (CMS/HCC) Bipolar disorder, unspecified documented in this encounter [facility] HealthcareEvaluation note* Diagnosis Gastroesophageal reflux disease without esophagitis Esophageal reflux documented in this encounter [facility] HealthcareEvaluation note* Diagnosis Obesity, Class II, BMI 35-39.9- Primary Encounter to establish care documented in this encounter [facility] HealthcareEvaluation note* Diagnosis Rash- Primary Rash and other nonspecific skin eruption Obesity, Class II, BMI 35-39.9 documented in this encounter [facility] HealthcareEvaluation note* Diagnosis Morbid (severe) obesity due to excess calories (CMS/HCC)- Primary BOGDAN (obstructive sleep apnea) Obstructive sleep apnea (adult) (pediatric) Hepatic steatosis Other chronic nonalcoholic liver disease Mixed hyperlipidemia (CMS/HCC) Mixed hyperlipidemia Elevated liver enzymes Other nonspecific abnormal serum enzyme levels documented in this encounter [facility] HealthcareEvaluation note* Diagnosis Obstructive sleep apnea syndrome Obstructive sleep apnea (adult) (pediatric) documented in this encounter [facility] HealthcareEvaluation note* Diagnosis Tremor- Primary Abnormal involuntary movements documented in this encounter [facility] HealthcareEvaluation note* Diagnosis Hypertriglyceridemia- Primary Pure hyperglyceridemia Sinus tachycardia Other specified cardiac dysrhythmias Chest pain, unspecified type Palpitation Palpitations Vapes nicotine containing substance [facility] Diagnosis Medication monitoring encounter- Primary Encounter for therapeutic drug monitoring Other hyperlipidemia Elevated triglycerides with high cholesterol Mixed hyperlipidemia Elevated LDL cholesterol level Severe obesity (BMI 35.0-39.9) with comorbidity (CMS-HCC) Other fatigue [facility]* Diagnosis Dermatophytosis of nail- Primary Dystrophic nail Other specified disease of nail Pain around toenail, right foot Pain around toenail, left foot documented in this encounter [facility] HealthcareEvaluation note* Diagnosis Obstructive sleep apnea syndrome Obstructive sleep apnea (adult) (pediatric) documented in this encounter [facility] HealthcareInstructionsNot on filedocumented in this encounterPro[facility] System[facility]ructionsNot on filedocumented in this encounterProMedica Health SystemInstructionsNot on filedocumented in this encounterProMedipa [facility] InstructionsNot on filedocumented in this encounter[facility] Summary Purpose Family History No Family History Records FoundNo Family History Records FoundNo Family History Records FoundNo Family History Records FoundNo Family History Records FoundNo Family History Records FoundNo Family History Records Found Advance Directives No Advanced Directives Records FoundDocuments on File Type Date Recorded Patient Probation Officer Expl anation Advance Directives and Living Will Power of Construction Coordinator History of Present Illness * Bradley Simmons MD - 11/10/2019 2:00 PM EST [facility] Evaluation PATIENT NAME: Marita Messina MRN NUMBER: [id number] DATE OF : 1985 PHONE NUMBER: [phone] PRIMARY CARE PHYSICIAN: No primary care provider [...] had repair above belly button at [facility] HERNIA REPAIR umbilical and above belly buton also at [facility] about 2 years ago HYSTERECTOMY TUMOR REMOVAL Left 2012 left thumb at [facility] Family History: Family History Problem [...] CT scan reports and images from the [facility] [employer] system E from May 2019 and March [...] contrast Jurgen English MD [address] [place] [address] Referral ID Status Reason Start Date Expiration Date V isits Requested Visits Authorized [id number] Pending Review 05/05/2024 05/05/2025 1 1 Specialty Diagnoses / Procedures Referred By Contac t Referred To Contact Diagnoses Chest pain, unspecified type Procedures Stress test (exercise only) Jurgen English MD [address] [place] [address] Referral ID Status Reason Start Date Expiration Date V isits Requested Visits Authorized [id number] Pending Review 05/05/2024 05/05/2025 5 5 Additional Source Comments INFORMATION SOURCE (unrecogn ized section and content) DATE CREATED AUTHOR 05/31/2019 [facility] DATE CREATED AUTHOR AUTHOR'S ORGANIZ ATION 11/11/2019 [facility] DATE CREATED AUTHOR AUTHOR'S ORGANIZ ATION 12/01/2021 [facility] DATE CREATED AUTHOR AUTHOR'S ORGANIZ ATION 09/02/2022 [facility] DATE CREATED AUTHOR AUTHOR'S ORGANIZ ATION 10/28/2024 [facility] DATE CREATED AUTHOR AUTHOR'S ORGANIZ ATION 11/05/2024 [facility] DATE CREATED AUTHOR AUTHOR'S ORGANIZ ATION 12/20/2024 [facility] Source Comments (unrecognize d section and content) In the event this informatio n is protected by the Federal Confidentiality of Alcohol and Drug Abuse Patient Records regulations: The Federal rules restrict any use of the information to criminally investigate or prosecute any alcohol or drug abuse patient.[facility] Center[facility] the event this information is protected by the Federal Confidentiality of Alcohol and Drug Abuse Patient Records regulations: The Federal rules restrict any use of the information to criminally investigate or prosecute any alcohol or drug abuse patient.[facility] CenterIn the event this information is protected by the Federal Confidentiality of Alcohol and Drug Abuse Patient Records regulations: The Federal rules restrict any use of the information to criminally investigate or prosecute any alcohol or drug abuse patient.[facility] CenterIn the event this information is protected by the Federal Confidentiality of Alcohol and Drug Abuse Patient Records regulations: The Federal rules restrict any use of the information to criminally investigate or prosecute any alcohol or drug abuse patient.[facility] Reason for Visit (unrecogniz ed section and content) Reason Onset Date Comments Refill Request 01/09/2022 Reason Onset Date Comments Refill Request 03/09/2023 Reason Onset Date Comments Refill Request 08/09/2023 Reason Comments Follow-up Reason Comments Fungus Pt is here today for fungal nails, first noticed about 1 yr ago. Also athlete's foot BL. She has tried OTC topical fungal bahamian, no change noted. SS:8 Reason Comments Rash Reason Onset Date Comments Med Refill 05/26/2024 Reason Comments Establish Care Weight Loss Reason Comments Weight Check Reason Onset Date Comments Med Refill 09/20/2024 Reason Comments New Patient DR[employer] [facility], SINUS TAC HY, NO PREVIOUS CARDIO, SCHED W/PT Specialty Diagnoses / Procedures Referred By Vickie t Referred To Contact Cardiology Diagnoses Sinus tachycardia Chest pain, unspecified type Palpitation Luiza Webb, DO [address] [place] [address] [facility] [address] [address] Referral ID Status Reason Start Date Expiration Date Visits Requested Visits Authorized [id number] Pending Review Specialty Services Required 03/23/2024 03/23/2025 [...] Care Teams (unrecognized sec tion and content) Senior Paralegal Relationship Specialty Start Date End Date KyaraCaitlyn campbell [place], [place] [id number] PCP - General Internal Medicine 11/25/18 Senior Paralegal Relationship Specialty Start Date End Date Caitlyn Sparrow [place], [place] [id number] PCP - General Internal Medicine 11/25/18 Senior Paralegal Relationship Specialty Start Date End Date Caitlyn Sparrow [place] [address] PCP - General Internal Medicine 11/25/18 Senior Paralegal Relationship Specialty Start Date End Date Caitlyn Sparrow [address] [place] [address] PCP - General Internal Medicine 11/25/18 Senior Paralegal Relationship Specialty Start Date End Date Jo-Ann Carlson MD [address] [place] [address] PCP - General Family Medicine 05/09/24 Senior Paralegal Relationship Specialty Start Date End Date Jo-Ann Carlson MD [address] [place] [address] PCP - General Family Medicine 05/09/24 Senior Paralegal Relationship Specialty Start Date End Date Jo-Ann Carlson MD [address] [place] [address] PCP - General Family Medicine 05/09/24 Senior Paralegal Relationship Specialty Start Date End Date Jo-Ann Carlson MD [address] [place] [address] PCP - General Family Medicine 05/09/24 Senior Paralegal Relationship Specialty Start Date End Date Jo-Ann Carlson MD [address] [place] [address] PCP - General Family Medicine 05/09/24 Senior Paralegal Relationship Specialty Start Date End Date Jo-Ann Carlson MD [address] [place] [address] PCP - General Family Medicine 05/09/24 Senior Paralegal Relationship Specialty Start Date End Date Jo-Ann Carlson MD [address] [place] [address] PCP - General Family Medicine 05/09/24 Senior Paralegal Relationship Specialty Start Date End Date Jo-Ann Carlson MD [address] [facility] [place] [address] PCP - General Family Medicine 05/09/24 Senior Paralegal Relationship Specialty Start Date End Date Jo-Ann Carlson MD [address] [facility] [place] [address] PCP - General Family Medicine 05/09/24 Senior Paralegal Relationship Specialty Start Date End Date Jo-Ann Carlson MD [address] [facility] [place] [address] PCP - General Family Medicine 05/09/24 Jo-Ann Carlson MD [address] [facility] [place] [address] PCP - [employer] 09/10/24 Senior Paralegal Relationship Specialty Start Date End Date Jo-Ann Carlson MD [address] [facility] [place] [address] PCP - General Family Medicine 05/09/24 Jo-Ann Carlson MD [address] [facility] [place] [address] PCP - [employer] 09/10/24 Senior Paralegal Relationship Specialty Start Date End Date Caitlyn Sparrow MD PCP - General Pediatrics 03/08/24 Senior Paralegal Relationship Specialty Start Date End Date Caitlyn Sparrow MD PCP - General Pediatrics 03/08/24 Senior Paralegal Relationship Specialty Start Date End Date Caitlyn Sparrow MD PCP - General Pediatrics 03/08/24 Senior Paralegal Relationship Specialty Start Date End Date Jo-Ann Carlson MD [address] [place] [facility] [address] PCP - General Family Medicine 05/09/24 Jo-Ann Carlson MD [address] [place] [facility] [address] PCP - Aet 09/10/24 Senior Paralegal Relationship Specialty Start Date End Date Jo-Ann Carlson MD [address] [place] [facility] [address] PCP - General Family Medicine 05/09/24 Jo-Ann Carlson MD [address] [place] [facility] [place] [address] PCP - [employer] 09/10/24 Senior Paralegal Relationship Specialty Start Date End Date Jo-Ann Carlson MD [address] [facility] [place] [address] PCP - General Family Medicine 08/20/24 FOR [...] BE BASED ON THE PRIMARY CLINICAL RECORDS. [facility] Foodist [facility]. provides no warranty or guarantee of the accuracy or completeness of information in this document.
[2024-12-22 09:44] VITALS: BP 132/69; PULSE 85; PULSE 88; O2SAT 100; O2SAT 94
[2024-12-22 09:45] VITALS: BP 128/72
[2024-12-22] MEDS: DEXAMETHASONE SOD PHOS 10 MG/ML VIAL INJ (09:58)
[2024-12-22] MEDS: BUPIVACAINE HCL 0.25% PF 25 MG/10 ML VIAL 2 ML INJ (09:58)
[2024-12-22] MEDS: LIDOCAINE HCL 2% 400 MG/20 ML MDV 8 ML INJ (09:59)
--- NOTE | 2024-12-22 09:59 | P.ON_ITS ---
Date of procedure: 12/22/24 Pre-op diagnosis: Pain due to cervical spondylosis without myelopathy Post-op diagnosis: same as pre-op Procedure: Procedure: Left C3-4, 5-6 radiofrequency ablation Medications: Bupivacaine 0.25% 3cc, lidocaine 2% 3cc, dexamethasone 10mg The patient was seen and examined in the preoperative holding area.? The site was marked.? Written informed consent was obtained and placed on the chart.? The patient was brought to the medical procedure unit and placed in the prone position.? A timeout was completed verifying correct patient, procedure, positioning, and special requirements.? The skin overlying the target points, the designated medial branch, were prepped and draped in the usual sterile fashion.? The target point was achieved with a 20-gauge 15 cm with a 10 mm curved active tip radiofrequency cannula under direct fluoroscopic visualization .? The needle was inserted at level C3 on the left side. Needle tip position was confirmed with lateral fluoroscopic position.? Motor stimulation was carried out at 2 Hz up to 5 volts with the absence of extremity activity.? This was repeated at level C4, 5, 6 on left side.?? Sensory stimulation was carried out.? Concordant pain was realized at the above- mentioned sites.? Then radiofrequency lesioning was carried out times 90 seconds at 80 degrees times 2 lesions at each level.? The radiofrequency probe was removed prior to cannula removal.? The above-mentioned injectate was placed in 1 mL increments.? The needle was removed.? Insertion sites were covered.? The patient was taken to the postoperative recovery area and monitored for an appropriate length of time before being found suitable for discharge in the company of a responsible adult. Anesthesia: Local Surgeon: Sana Radford Pathology: none sent Condition: stable Disposition: no change
== END 2024-12-22 10:02 | disposition home or self-care (01) ==
LOC: SURGOUT 08:50
PROVIDERS: PCP Internal Medicine; Visit Provider Anesthesiology
DX: M47.812 Spondylosis without myelopathy or radiculopathy, cervical region (principal); M54.2 Cervicalgia
CPT/HCPCS: 64633; 64634; J0665; J1100

== ENCOUNTER 2025-02-11 10:42 | Outpatient (OUT) | payer MEDICARE, MEDICAID, SELFPAY ==
--- OUTSIDE RECORDS SUMMARY | 2025-02-11 10:54 | XMS_ITS | CCD ---
Author Organization [facility] Care Team Providers Care Teamcenter Solution Architect Name Role Phone SIMMONS BRADLEY D Referring Unavailable Unavailable Primary Care Provider Unavailjulianne [...] DR MUNIRA Avalos Admitting Unavailable TOYIN, DR MUNRIA Avalos Attending Unavailable TOYIN, DR MUNIRA Avalos [...] Kyara CLEMONS, Caitlyn Griffiths Primary Care Provider KYARA, CAITLYN Griffiths Referring Unavailabl [...] KYARA, CAITLYN Griffiths Primary Care Unavailabl e BIANCADAVEY DOHERTY Attending Unavailable LEONIDAS SALCIDO Referring Unavailable KYARA, CAITLYN Griffiths Primary Care Unavailabl e KYARA, CAITLYN Griffiths Primary Care Unavailabl e LUIZA WEBB Attending Unavailable LUIZA WEBB Attending Unavailable LUIZA WEBB Referring Unavailable KYARA, CAITLYN Griffiths Primary Care Unavailabl e KYARA, CAITLYN Griffiths Referring Unavailabl e KYARA, CAITLYN Griffiths Primary Care Unavailabl e YURIJURGEN BRENNAN Attending Unavailable KYARA, CAITLYN Griffiths Referring Unavailabl [...] Referring Unavailable JO-ANN GEE Primary Care Unavailable Gerard CLEMONS, Jo-Ann Yadav Primary Care Provider Kathryn DIP GUIDER STOVES, Dorcas Unavailable Martha RUSSO, Dorcas Stewart Attending Christian Sparrow MD, [facility] janice Sparrow MD, [facility] vailable Martha RUSSO, Dorcas Stewart Attending Christian Radford MD, Sana Doyle Attending Unavailable Kyara CLEMONS, [facility] vailable Malina CLEMONS, Sana Doyle Attending Unavailable Kyara CLEMONS, [facility] vailable Malina CLEMONS, Sana Doyle Attending Unavailable Kyara CLEMONS, [facility] vailable Malina CLEMONS, Sana Doyle Attending Unavailable Kyara CLEMONS, [facility] vailable Malina CLEMONS, Sana Doyle Attending Unavailable Kyara CLEMONS, [facility] vailamei Sparrow MD, [facility] vailable Malina CLEMONS, Sana Doyle Attending Unavailable Martha RUSSO, Dorcas Stewart Attending Christian Sparrow MD, [facility] vailaSHERIE Clements Attending Unavailable SHERIE MARIA Attending Unavailable KATHRYN, DORCAS Attending Unavailable KAMPTIBURCIO, DORCAS Attending Unavailable KAMPTIBURCIO, DORCAS Attending Unavailable KAMPFER, DORCAS Attending Unavailable SHERIE MARIA Attending Unavailable DORCAS PERALTA Attending Unavailable Allergies Allergy Classification Reported Allergen(s) Allergy Type Date of Onset Reaction(s) Facility (20 sources) Acetaminophen / HYDROcodone; Translations: [HYDROCODONE-ACETA MINOPHEN] Drug Allergy 10-09-2019 [place], [place] (9 sources) Acetaminophen / HYDROcodone; Translations: [Vicodin] Drug Allergy 09-10-2014 [facility] Repository Medications Current Medications Medication [...] 140 MG/ML as directed Subcutaneous monthly Active [id number] 200 actuat albuterol 0.09 mg/actuat metered dose inhaler (20 sources) beta2-Adrenergic Agonist albuterol HFA 90 mcg/act inhaler Active take 2 puff(s) by mo uth [...] mg/ml / clotrimazole 10 mg/ml topical cream (15 sources) Azole Antifungal, Corticosteroid Start: 08-04-2024 clotrimazole-betamethasone [...] by mouth in the morning. Active cyclobenzaprine hydrochlorid e 10 mg oral tablet (20 sources) Muscle Relaxant cyclobenzaprine (Flexeril) 10 MG tablet Take 1 tablet by mouth as needed in the morning and 1 tablet as needed in the evening. Active take 1 tablet by anu twice [...] 05/23/2024 06/02/2024 Active take 1 capsule by [facility] every twenty-four hours Doxycycline Hyclate 100 [...] source) 1 ml evolocumab 140 mg/ml auto-injector (20 sources) PCSK9 Inhibitor Start: Repatha SureClick 140 MG/ML injection Inject 140 mg under the skin every 14 (fourteen) days 06/10/2024 Active FLUoxetine 10 mg oral capsule (20 sources) Serotonin Reuptake Inhibitor Start: take 1 capsule by mouth every twenty-four hours FLUoxetine HCl 10 MG 1 capsule Orally Once a day for 30 day(s) 40 mg in am and 10 mg at noon 27 Dec, 2021 Active Start: 11-20-2018 take 1 capsule by [...] clinician) hydrOXYzine pamoate 50 mg oral capsule (16 sources) Antihistamine Start: 08-04-2024 hydrOXYzine pa moate (Vistaril) 50 MG capsule 50 mg as needed in the morning and 50 mg as needed in the evening. 08/04/2024 Active hydrOXYzine HCl 10 MG as [...] a day for 30 days Active omega 8-exa-rxt-fish oil (Fish OiL) 300-1,000 mg capsule (2 sources) Start: 06-10-2024 take 1 capsule by mouth in the morning omega 4-mzn-muk-fish oil (Fish OiL) 300-1,000 mg capsule Take 2 g by mouth in the morning and 2 g before bedtime. 06/10/2024 Active Denver-3 Fatty Acids (FISH OIL OMEGA-3 PO) (18 sources) take 2 tablets by mouth twice daily in the morning Denver-3 Fatty Acids (FISH OIL OMEGA-3 PO) Take 2 g by mouth in the morning and 2 g before bedtime. 2 g 2 tab bid. . Active omeprazole 20 mg delayed release oral capsule (20 sources) Proton Pump Inhibitor Start: 05-26-2024 End: 12-19-2024 take 1 capsule by mouth once daily omeprazole (PriLOSEC) [address] capsule Indications: Gastroesophageal reflux disease without esophagitis TAKE 1 CAPSULE(20 MG) BY MOUTH 1 TIME EACH DAY AT THE SAME TIME 90 capsule 12/18/2024 Active Start: 11-07-2018 omeprazole (Pr iLOSEC) 40 mg capsule 1 capsule (40 mg total) in the morning and at bedtime. 60 capsule 1 01/24/2022 Active take 1 capsule by mo ut twice daily Omeprazole 40 MG 1 capsule 30 minutes before morning meal Orally twice a day Not-Taking take 2 capsules by m outh once daily omeprazole (PRILOSEC) 20 MG delayed release capsule Take 40 mg by mouth daily 0 Active Comment on above: take 1 capsule by mo ut once daily as directed ondansetron 4 mg [...] solution auto-injector (11 sources) Start: 4 End: 4 inject 0.5 [...] mL 1 09/16/2024 Active Tirzepatide-Weight Management (Zepbound) 10 MG/0.5ML solution auto-injector (2 sources) Start: 02-06-2025 inject 10 mg by subcutaneous injection every week Tirzepatide-Weight Management (Zepbound) 10 MG/0.5ML solution auto-injector Indications: Obstructive sleep apnea syndrome , Obesity, Class II, BMI 35-39.9 Inject 10 mg under the skin 1 (one) time per week 6 mL 02/06/2025 Active Tirzepatide-Weight Management (Zepbound) 2.5 MG/0.5ML solution [...] 2 mL 1 09/22/2024 Active Tirzepatide-Weight Management (Zepbound) 7.5 MG/0.5ML solution auto-injector (3 sources) Start: 01-30-2025 End: 02-06-2025 inject 7.5 mg by subcutaneous injection every week Tirzepatide-Weight Management (Zepbound) 7.5 MG/0.5ML solution auto-injector Indications: Obstructive sleep apnea syndrome , Obesity, Class II, BMI 35-39.9 Inject 7.5 mg under the skin 1 (one) time per week 2 mL 01/30/2025 02/06/2025 Discontinued (Dose adjustment) Start: 01-30-2025 inject 7.5 mg by sub cutaneous injection every week Tirzepatide-Weight Management (Zepbound) 7.5 MG/0.5ML solution auto-injector Indications: Obstructive sleep apnea syndrome , Obesity, Class II, BMI 35-39.9 Inject 7.5 mg under the skin 1 (one) time per week 2 mL 01/30/2025 Active Tirzepatide-Weight Management 5 MG/0.5ML solution (1 source) Start: 11-03-2024 inject 5 mg by subcutaneous injection every week Tirzepatide-Weight Management 5 MG/0.5ML solution Indications: Obstructive sleep apnea syndrome Inject 5 mg under the skin 1 (one) time per week 2 mL 1 11/03/2024 Active Tirzepatide-Weight Management 7.5 MG/0.5ML solution (1 source) Start: 12-02-2024 inject 7.5 mg by subcutaneous injection every week Tirzepatide-Weight Management 7.5 MG/0.5ML solution Indications: Obesity, Class II, BMI 35-39.9 , Obstructive sleep apnea syndrome Inject 7.5 mg under the skin 1 (one) time per week 2 mL 1 12/02/2024 Active traZODone hydrochloride 50 mg oral tablet (13 sources) Serotonin Reuptake Inhibitor take 1 tablet [...] apnea (adult) (pediatric)] Onset: 02-23-2022 05-14-2024 Chronic Spondylosis; intervertebral disc disorders; other back problems (9 sources) Other spondylosis with radiculopathy, cervical region; Translations: [Spondylosis without myelopathy or radiculopathy, cervical region] Onset: 09-22-2021 Chronic Spondylosis; intervertebral disc disorders; other back problems (14 sources) Cervical disc disorder with radiculopathy, unspecified [...] nigricans] Onset: 02-29-2024 Episodic Residual codes; unclassified (13 sources) Nicotine-filled electronic cigarette user; Translations: [Tobacco use] Onset: 09-15-2024 09-15-2024 Episodic Residual codes; unclassified (1 source) Tobacco use; Translations: [Tobacco use] Onset: 05-05-2024 Episodic Residual codes; unclassified (1 source) Flushing; Translations: [Flushing] Onset: 02-29-2024 Episodic Urinary tract infections (1 source) Urinary tract infection, site not specified; Translations: [Urinary tract infection, site not specified] Onset: 03-23-2024 Episodic Results Test Name Value Interpretation Reference Range Facility ALT No additional P-5'-P [Ca talytic activity/Vol]on 11-03-2024 ALT [Catalytic activity/Vol] 51 U/L High 0-31 [facility] Comment on above: Performed By: #### 2 4331-1, THYR, CBCA, CMP, 95063-5 #### [facility] ([id number]) [address], [address] [place] [address] Silas 11-03-2024 AST [Catalytic activity/Vol] 38 U/L Normal 0-41 [facility] Comment on above: Performed By: #### 2 4331-1, THYR, CBCA, CMP, 28508-0 #### [facility] ([id number]) [address], [address] [place] [address] DIRECT LDLon 11-03-2024 Cholesterol in LDL [Mass/Vol] 65 mg/dL Normal <130 [facility] Comment on above: Result Comment: LDL <100 mg/dL - Desirable LDL 130-159 mg/dL - Borderline High Risk LDL >160 mg/dL - High Risk Performed By: #### 2 4331-1, THYR, CBCA, CMP, 54406-8 #### [facility] ([id number]) [address], [address] [place] [address] TRIGLYCERIDEon 11-03-2024 Triglyceride [Mass/Vol] 234 mg/dL High 27-150 [facility] Comment on above: Performed By: #### 2 4331-1, THYR, CBCA, CMP, 30287-8 #### [facility] ([id number]) [address], [address] [place] [address] MR CERVICAL SPINE WO CONTon 09-16-2024 MR [...] A Myles on 09/16/2024 2:09 PM Normal [facility] Gynecology Office/Clinic Not freddie 08-13-2024 Gynecology Office/Clinic [...] cover after 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 Normal [facility] COMPREHENSIVE METABOLIC PANE Mika 05-19-2024 Albumin [Mass/Vol] 4.6 g/dL Normal 3.2-5.3 [facility] Comment on above: Performed By: #### 2 4331-1, THYR, CBCA, CMP, 79332-8 #### [facility] ([id number]) [address], [address] [place] [address] ALP [Catalytic activity/Vol] 78 U/L Normal 39-130 [facility] Comment on above: Performed By: #### 2 4331-1, THYR, CBCA, CMP, 25413-1 #### [facility] ([id number]) [address], [address] [place] [address] ALT [Catalytic activity/Vol] 85 U/L High 0-31 [facility] Comment on above: Performed By: #### 2 4331-1, THYR, CBCA, CMP, 71943-6 #### [facility] ([id number]) [address], [address] [place] [address] Anion gap [Moles/Vol] 15 mmol/L Normal 5-15 [facility] Comment on above: Performed By: #### 2 4331-1, THYR, CBCA, CMP, 89261-6 #### [facility] ([id number]) [address], [address] [place] [address] AST [Catalytic activity/Vol] 54 U/L High 0-41 [facility] Comment on above: Performed By: #### 2 4331-1, THYR, CBCA, CMP, 33120-8 #### [facility] ([id number]) [address], [address] [place] [address] Bilirubin [Mass/Vol] 0.6 mg/dL Normal 0.3-1.2 [facility] Comment on above: Performed By: #### 2 4331-1, THYR, CBCA, CMP, 11934-5 #### [facility] ([id number]) [address], [address] [place] [address] Calcium [Mass/Vol] 9.6 mg/dL Normal 8.5-10.5 [facility] Comment on above: Performed By: #### 2 4331-1, THYR, CBCA, CMP, 85233-1 #### [facility] ([id number]) [address] [address] [place] [address] Chloride [Moles/Vol] 102 mmol/L Normal 98-109 [facility] Comment on above: Performed By: #### 2 4331-1, THYR, CBCA, CMP, 14957-0 #### [facility] ([id number]) [address] [address] [place] [address] CO2 [Moles/Vol] 19 mmol/L Low 22-32 [facility] Comment on above: Performed By: #### 2 4331-1, THYR, CBCA, CMP, 83903-4 #### [facility] ([id number]) [address] [address] [place] [address] Creatinine [Mass/Vol] 0.89 mg/dL Normal 0.40-1.00 [facility] Comment on above: Result Comment: METH OD TRACEABLE TO IDMS STANDARD Performed By: #### 2 4331-1, THYR, CBCA, CMP, 54444-5 #### [facility] ([id number]) [address], [address] [place] [address] GFR/1.73 sq M.predicted among non-blacks MDRD (S/P/Bld) [Vol rate/Area] 86 mL/min/{1.73_m2} Normal >59 [facility] Comment on above: Result Comment: Reported eGFR is based on the CKD-EPI 2020 equation that does not use a race coefficient. Performed By: #### 2 4331-1, THYR, CBCA, CMP, 64237-7 #### [facility] ([id number]) [address], [address] [place] [address] Glucose [Mass/Vol] 95 mg/dL Normal 65-99 [facility] Comment on above: Performed By: #### 2 4331-1, THYR, CBCA, CMP, 11810-5 #### [facility] ([id number]) [address], [address] [place] [address] Potassium [Moles/Vol] 4.0 mmol/L Normal 3.5-5.0 [facility] Comment on above: Performed By: #### 2 4331-1, THYR, CBCA, CMP, 71558-4 #### [facility] ([id number]) [address] [address] [place] [address] Protein [Mass/Vol] 7.0 g/dL Normal 6.0-8.0 [facility] Comment on above: Performed By: #### 2 4331-1, THYR, CBCA, CMP, 72139-6 #### [facility] ([id number]) [address] [address] [place] [address] Sodium [Moles/Vol] 136 mmol/L Normal 134-146 [facility] Comment on above: Performed By: #### 2 4331-1, THYR, CBCA, CMP, 26440-1 #### [facility] ([id number]) [address] [address] [place] [address] Urea nitrogen [Mass/Vol] 10 mg/dL Normal 5-23 [facility] Comment on above: Performed By: #### 2 4331-1, THYR, CBCA, CMP, 04385-3 #### [facility] ([id number]) [address], [address] [place] [address] DIRECT LDLon 05-19-2024 Cholesterol in LDL [Mass/Vol] 181 mg/dL High <130 [facility] Comment on above: Result Comment: LDL <100 mg/dL - Desirable LDL 130-159 mg/dL - Borderline High Risk LDL >160 mg/dL - High Risk Performed By: #### 2 4331-1, THYR, CBCA, CMP, 10397-2 #### [facility] ([id number]) [address], [address] [place] [address] LIVER PANELon 05-19-2024 Bilirubin.direct [Mass/Vol] 0.1 mg/dL Normal 0.0-0.4 [facility] Comment on above: Performed By: #### 2 4331-1, THYR, CBCA, CMP, 95282-2 #### [facility] ([id number]) [address] [place] [address] Lipid 1996 panelon Cholesterol [Mass/Vol] 276 mg/dL High 150-200 [facility] Comment on above: Performed By: #### 2 4331-1, THYR, CBCA, CMP, 16217-2 #### [facility] ([id number]) [address], [address] [place] [address] Cholesterol in HDL [Mass/Vol] 42 mg/dL Normal >39 [facility] Comment on above: Result Comment: HDL <40 mg/dL - High Risk HDL > or = 40mg/dL- Desirable HDL >60 mg/dL - Negative Risk Performed By: #### 2 4331-1, THYR, CBCA, CMP, 86348-0 #### [facility] ([id number]) [address], [address] [place] [address] Cholesterol in VLDL [Mass/Vol] 98 mg/dL High 0-30 [facility] Comment on above: Performed By: #### 2 4331-1, THYR, CBCA, CMP, 78327-1 #### [facility] ([id number]) [address], [facility] [address] [place] [address] CHOLESTEROL:HDL 6.6 High 1.0-5.0 [facility] Comment on above: Performed By: #### 2 4331-1, THYR, CBCA, CMP, 06177-6 #### [facility] ([id number]) [address], [facility] [address] [place] [address] LDL (CALC) RESULT NOT REPORTED DUE TO HIGH TRIGLYCERIDE Normal <130 [facility] Comment on above: Performed By: #### 2 4331-1, THYR, CBCA, CMP, 59827-0 #### [facility] ([id number]) [address], [address] [place] [address] Triglyceride [Mass/Vol] 488 mg/dL High 27-150 [facility] Comment on above: Performed By: #### 2 4331-1, THYR, CBCA, CMP, 13257-2 #### [facility] ([id number]) [address], [address] [place] [address] MR LUMBAR SPINE WO CONTon MR LUMBAR [...] Bruce DO on 03/26/2024 1:45 PM Normal [facility] CBC AND AUTO DIFFon 03-23-20 24 ABSOLUTE BASOPHIL 0.0 X10E9/L Normal 0.0-0.2 [facility] Comment on above: Performed By: #### 2 4331-1, THYR, CBCA, CMP, 79544-5 #### [facility] ([id number]) [address], [address] [place] [address] ABSOLUTE NEUTROPHIL 4.7 X10E9/L Normal 1.5-6.6 [facility] Comment on above: Performed By: #### 2 4331-1, THYR, CBCA, CMP, 77535-0 #### [facility] ([id number]) [address], [address] [place] [address] Basophils/100 WBC (Bld) 0.3 % Normal [facility] Comment on above: Performed By: #### 2 4331-1, THYR, CBCA, CMP, 14031-0 #### [facility] ([id number]) [address] [address] [place] [address] Eosinophils (Bld) [#/Vol] 0.0 10*3/uL Normal 0.0-0.4 [facility] Comment on above: Performed By: #### 2 4331-1, THYR, CBCA, CMP, 56345-3 #### [facility] ([id number]) [address] [address] [place] [address] Eosinophils/100 WBC (Bld) 0.4 % Normal [facility] Comment on above: Performed By: #### 2 4331-1, THYR, CBCA, CMP, 30511-2 #### [facility] ([id number]) [address] [address] [place] [address] Erythrocyte distribution width (RBC) [Ratio] 13.5 % Normal 11.5-15.0 [facility] Comment on above: Performed By: #### 2 4331-1, THYR, CBCA, CMP, 65610-8 #### [facility] ([id number]) [address] [address] [place] [address] Hematocrit (Bld) [Volume fraction] 44.6 % Normal 35-47 [facility] Comment on above: Performed By: #### 2 4331-1, THYR, CBCA, CMP, 87196-1 #### [facility] ([id number]) [address] [address] [place] [address] Hemoglobin (Bld) [Mass/Vol] 15.6 g/dL High 11.7-15.5 [facility] Comment on above: Performed By: #### 2 4331-1, THYR, CBCA, CMP, 85210-0 #### [facility] ([id number]) [address] [address] [place] [address] Lymphocytes (Bld) [#/Vol] 0.5 10*3/uL Low 1.0-3.5 [facility] Comment on above: Performed By: #### 2 4331-1, THYR, CBCA, CMP, 79820-3 #### [facility] ([id number]) [address] [address] Lymphocytes/100 WBC (Bld) 8.7 % Normal [facility] Comment on above: Performed By: #### 2 4331-1, THYR, CBCA, CMP, 00459-3 #### [facility] ([id number]) [address] [address] MCH (RBC) [Entitic mass] 32.5 pg Normal 27-34 [facility] Comment on above: Performed By: #### 2 4331-1, THYR, CBCA, CMP, 26752-4 #### [facility] ([id number]) [address] [address] MCHC (RBC) [Mass/Vol] 34.9 g/dL Normal 32-36 [facility] Comment on above: Performed By: #### 2 4331-1, THYR, CBCA, CMP, 28710-6 #### [facility] ([id number]) [address] [address] MCV (RBC) [Entitic vol] 93 fL Normal 80-100 [facility] Comment on above: Performed By: #### 2 4331-1, THYR, CBCA, CMP, 93944-8 #### [facility] ([id number]) [address] [address] Monocytes (Bld) [#/Vol] 0.0 10*3/uL Normal 0-0.9 [facility] Comment on above: Performed By: #### 2 4331-1, THYR, CBCA, CMP, 26210-7 #### [facility] ([id number]) [address] [address] [place] [address] Monocytes/100 WBC (Bld) 0.6 % Normal [facility] Comment on above: Performed By: #### 2 4331-1, THYR, CBCA, CMP, 42385-4 #### [facility] ([id number]) [address] [address] [place] [address] Neutrophils/100 WBC (Bld) 90.0 % Normal [facility] Comment on above: Performed By: #### 2 4331-1, THYR, CBCA, CMP, 73820-7 #### [facility] ([id number]) [address] [address] [place] [address] Platelet mean volume (Bld) [Entitic vol] 7.2 fL Normal 7-12 [facility] Comment on above: Performed By: #### 2 4331-1, THYR, CBCA, CMP, 97533-6 #### [facility] ([id number]) [address] [address] [place] [address] Platelets (Bld) [#/Vol] 286 10*3/uL Normal 150-450 [facility] Comment on above: Performed By: #### 2 4331-1, THYR, CBCA, CMP, 10212-4 #### [facility] ([id number]) [address] [address] [place] [address] RBC COUNT 4.80 X10E12/L Normal 3.80-5.20 [facility] Comment on above: Performed By: #### 2 4331-1, THYR, CBCA, CMP, 52620-7 #### [facility] ([id number]) [address] [address] [place] [address] WBC (Bld) [#/Vol] 5.3 10*3/uL Normal 4.0-11.0 [facility] Comment on above: Performed By: #### 2 4331-1, THYR, CBCA, CMP, 77061-3 #### [facility] ([id number]) [address], [address] [place] [address] COMPREHENSIVE METABOLIC PANE Mika 03-23-2024 Albumin [Mass/Vol] 4.2 g/dL Normal 3.2-5.3 [facility] Comment on above: Performed By: #### 2 4331-1, THYR, CBCA, CMP, 47424-1 #### [facility] ([id number]) [address], [address] [place] [address] ALP [Catalytic activity/Vol] 115 U/L Normal 39-130 [facility] Comment on above: Performed By: #### 2 4331-1, THYR, CBCA, CMP, 29145-9 #### [facility] ([id number]) [address], [address] [place] [address] ALT [Catalytic activity/Vol] 81 U/L High 0-31 [facility] Comment on above: Performed By: #### 2 4331-1, THYR, CBCA, CMP, 24884-5 #### [facility] ([id number]) [address], [address] [place] [address] Anion gap [Moles/Vol] 14 mmol/L Normal 5-15 [facility] Comment on above: Performed By: #### 2 4331-1, THYR, CBCA, CMP, 82233-5 #### [facility] ([id number]) [address], [address] [place] [address] AST [Catalytic activity/Vol] 48 U/L High 0-41 [facility] Comment on above: Performed By: #### 2 4331-1, THYR, CBCA, CMP, 63096-1 #### [facility] ([id number]) [address], [address] [place] [address] Bilirubin [Mass/Vol] 1.3 mg/dL High 0.3-1.2 [facility] Comment on above: Performed By: #### 2 4331-1, THYR, CBCA, CMP, 55325-4 #### [facility] ([id number]) [address], [address] [place] [address] Calcium [Mass/Vol] 9.3 mg/dL Normal 8.5-10.5 [facility] Comment on above: Performed By: #### 2 4331-1, THYR, CBCA, CMP, 88576-1 #### [facility] ([id number]) [address], [address] [place] [address] Chloride [Moles/Vol] 97 mmol/L Low 98-109 [facility] Comment on above: Performed By: #### 2 4331-1, THYR, CBCA, CMP, 76076-5 #### [facility] ([id number]) [address] [address] [place] [address] CO2 [Moles/Vol] 22 mmol/L Normal 22-32 [facility] Comment on above: Performed By: #### 2 4331-1, THYR, CBCA, CMP, 22612-2 #### [facility] ([id number]) [address] [address] [place] [address] Creatinine [Mass/Vol] 0.91 mg/dL Normal 0.40-1.00 [facility] Comment on above: Result Comment: METH OD TRACEABLE TO IDMS STANDARD Performed By: #### 2 4331-1, THYR, CBCA, CMP, 61421-1 #### [facility] ([id number]) [address], [address] [place] [address] GFR/1.73 sq M.predicted among non-blacks MDRD (S/P/Bld) [Vol rate/Area] 83 mL/min/{1.73_m2} Normal >59 [facility] Comment on above: Result Comment: Reported eGFR is based on the CKD-EPI 2020 equation that does not use a race coefficient. Performed By: #### 2 4331-1, THYR, CBCA, CMP, 59990-5 #### [facility] ([id number]) [address], [address] [place] [address] Glucose [Mass/Vol] 110 mg/dL High 65-99 [facility] Comment on above: Performed By: #### 2 4331-1, THYR, CBCA, CMP, 72792-2 #### [facility] ([id number]) [address], [address] [place] [address] Potassium [Moles/Vol] 3.8 mmol/L Normal 3.5-5.0 [facility] Comment on above: Performed By: #### 2 4331-1, THYR, CBCA, CMP, 54381-9 #### [facility] ([id number]) [address], [address] [place] [address] Protein [Mass/Vol] 8.0 g/dL Normal 6.0-8.0 [facility] Comment on above: Performed By: #### 2 4331-1, THYR, CBCA, CMP, 58961-9 #### [facility] ([id number]) [address], [address] [place] [address] Sodium [Moles/Vol] 133 mmol/L Low 134-146 [facility] Comment on above: Performed By: #### 2 4331-1, THYR, CBCA, CMP, 48902-9 #### [facility] ([id number]) [address], [address] [place] [address] Urea nitrogen [Mass/Vol] 13 mg/dL Normal 5-23 [facility] Comment on above: Performed By: #### 2 4331-1, THYR, CBCA, CMP, 84727-8 #### [facility] ([id number]) [address], [address] [place] [address] CT CTA CHESTon 03-23-2024 CT CTA CHEST [...] Alfonso Packer MD on 03/23/2024 10:42 PM ISunitha MD have personally reviewed the image(s) and agree with and/or edited the report Finalized by Sunitha Chaparro MD on 03/23/2024 10:52 PM Normal [facility] Fibrin D-dimer DDU (PPP) [Ma ss/Vol]on 03-23-2024 D DIMER 336 ng/mL DDU High <255 [facility] Comment on above: Result Comment: Results >=255ng/mL [...] By: #### 2 4331-1, THYR, CBCA, CMP, 08024-7 #### [facility] ([id number]) [address], [address] [place] [address] HCG ( test) Ql (U)o n 03-23-2024 Beta HCG ( test) Ql (U) Negative Normal NEG [facility] Comment on above: Performed By: #### 2 4331-1, THYR, CBCA, CMP, 04980-3 #### [facility] ([id number]) [address], [address] [place] [address] LIPASEon 03-23-2024 Lipase [Catalytic activity/Vol] 30 U/L Normal 17-40 [facility] Comment on above: Performed By: #### 2 4331-1, THYR, CBCA, CMP, 89525-8 #### [facility] ([id number]) [address], [facility] [address] [place] [address] THYROID PROFILEon 03-23-2024 Free T4 [Mass/Vol] 0.74 ng/dL Normal 0.61-1.60 [facility] Comment on above: Performed By: #### 2 4331-1, THYR, CBCA, CMP, 72211-8 #### [facility] ([id number]) [address] [address] [place] [address] TSH 1.64 uIU/mL Normal 0.49-4.67 [facility] Comment on above: Performed By: #### 2 4331-1, THYR, CBCA, CMP, 27603-5 #### [facility] ([id number]) [address], [address] [place] [address] Troponin I.cardiac High sens itivity method [Mass/Vol]on 03-23-2024 1 HOUR TROP I, HIGH SENSITIVITY 3 ng/L Normal <16 [facility] Comment on above: Performed By: #### 2 4331-1, THYR, CBCA, CMP, 01814-4 #### [facility] ([id number]) [address], [address] [place] [address] TROPONIN I, HIGH SENSITIVITY 2 ng/L Normal <16 [facility] Comment on above: Performed By: #### 2 4331-1, THYR, CBCA, CMP, 62119-2 #### [facility] ([id number]) [address], [address] [place] [address] URINE CULTUREon 03-23-2024 Bacteria identified Cx Nom [...] F TRIMETH/SULFAMETHOXAZO LE S <=1/19 F Susceptible [facility] Comment on above: Performed By: #### 2 4331-1, THYR, CBCA, CMP, 28213-1 #### [facility] ([id number]) [address], [address] [place] [address] URN MACROSCOPIC NURon 2023 BILIRUBIN LUL Negative Normal NEG [facility] Comment on above: Performed By: #### 2 4331-1, THYR, CBCA, CMP, 51676-0 #### [facility] ([id number]) [address], [address] [place] [address] BLOOD/HGB LUL Small Abnormal NEG [facility] Comment on above: Performed By: #### 2 4331-1, THYR, CBCA, CMP, 51998-4 #### [facility] ([id number]) [address], [address] [place] [address] GLUCOSE LUL Negative Normal NEG [facility] Comment on above: Performed By: #### 2 4331-1, THYR, CBCA, CMP, 48366-3 #### [facility] ([id number]) [address], [address] [place] [address] KETONES LUL Negative Normal NEG [facility] Comment on above: Performed By: #### 2 4331-1, THYR, CBCA, CMP, 80823-1 #### [facility] ([id number]) [address], [address] [place] [address] LEUKOCYTE ESTERASE LUL Small Abnormal NEG [facility] Comment on above: Performed By: #### 2 4331-1, THYR, CBCA, CMP, 84901-2 #### [facility] ([id number]) [address], [address] [place] [address] NITRITE LUL Negative Normal NEG [facility] Comment on above: Performed By: #### 2 4331-1, THYR, CBCA, CMP, 60042-1 #### [facility] ([id number]) [address], [address] [place] [address] PH LUL 5.5 Normal 5.0-8.5 [facility] Comment on above: Performed By: #### 2 4331-1, THYR, CBCA, CMP, 79710-6 #### [facility] ([id number]) [address], [address] [place] [address] PROTEIN LUL Negative Normal NEG [facility] Comment on above: Performed By: #### 2 4331-1, THYR, CBCA, CMP, 99156-6 #### [facility] ([id number]) [address], [address] [place] [address] SPECIFIC GRAVITY LUL 1.010 Normal 1.003-1.035 [facility] Comment on above: Performed By: #### 2 4331-1, THYR, CBCA, CMP, 68704-5 #### [facility] ([id number]) [address], [address] [place] [address] UROBILINOGEN LUL 0.2 eu/dL Normal <1.1 [facility] Comment on above: Performed By: #### 2 4331-1, THYR, CBCA, CMP, 16963-7 #### [facility] ([id number]) [address], [address] [place] [address] CBC AND AUTO DIFFon 02-29-20 24 ABSOLUTE BASOPHIL 0.0 X10E9/L Normal 0.0-0.2 [facility] Comment on above: Performed By: #### T HYR, HA1C, CBCA, 43156-4 #### [facility] ([id number]) [address] [address] [place] [address] ABSOLUTE NEUTROPHIL 2.8 X10E9/L Normal 1.5-6.6 [facility] Comment on above: Performed By: #### T HYR, HA1C, CBCA, 59495-0 #### [facility] ([id number]) [address] [address] [place] [address] Basophils/100 WBC (Bld) 0.7 % Normal [facility] Comment on above: Performed By: #### T HYR, HA1C, CBCA, 11071-3 #### [facility] ([id number]) [address] [address] [place] [address] Eosinophils (Bld) [#/Vol] 0.1 10*3/uL Normal 0.0-0.4 [facility] Comment on above: Performed By: #### T HYR, HA1C, CBCA, 73120-6 #### [facility] ([id number]) [address], [address] [place] [address] Eosinophils/100 WBC (Bld) 2.1 % Normal [facility] Comment on above: Performed By: #### T HYR, HA1C, CBCA, 28258-8 #### [facility] ([id number]) [address], [address] [place] [address] Erythrocyte distribution width (RBC) [Ratio] 13.7 % Normal 11.5-15.0 [facility] Comment on above: Performed By: #### T HYR, HA1C, CBCA, 18142-5 #### [facility] ([id number]) [address], [address] [place] [address] Hematocrit (Bld) [Volume fraction] 45.0 % Normal 35-47 [facility] Comment on above: Performed By: #### T HYR, HA1C, CBCA, 25703-7 #### [facility] ([id number]) [address], [address] [place] [address] Hemoglobin (Bld) [Mass/Vol] 15.5 g/dL Normal 11.7-15.5 [facility] Comment on above: Performed By: #### T HYR, HA1C, CBCA, 22220-0 #### [facility] ([id number]) [address], [address] [place] [address] Lymphocytes (Bld) [#/Vol] 1.4 10*3/uL Normal 1.0-3.5 [facility] Comment on above: Performed By: #### T HYR, HA1C, CBCA, 40414-1 #### [facility] ([id number]) [address], [address] [place] [address] Lymphocytes/100 WBC (Bld) 28.9 % Normal [facility] Comment on above: Performed By: #### T HYR, HA1C, CBCA, 49833-7 #### [facility] ([id number]) [address], [address] [place] [address] MCH (RBC) [Entitic mass] 32.0 pg Normal 27-34 [facility] Comment on above: Performed By: #### T HYR, HA1C, CBCA, 54984-6 #### [facility] ([id number]) [address], [address] [place] [address] MCHC (RBC) [Mass/Vol] 34.3 g/dL Normal 32-36 [facility] Comment on above: Performed By: #### T HYBhavna, HA1C, CBCA, 32409-8 #### [facility] ([id number]) [address], [address] [place] [address] MCV (RBC) [Entitic vol] 93 fL Normal 80-100 [facility] Comment on above: Performed By: #### T HYR, HA1C, CBCA, 44351-5 #### [facility] ([id number]) [address] [place] [address] Monocytes (Bld) [#/Vol] 0.4 10*3/uL Normal 0-0.9 [facility] Comment on above: Performed By: #### T HYR, HA1C, CBCA, 45130-2 #### [facility] ([id number]) [address] [place] [address] Monocytes/100 WBC (Bld) 8.4 % Normal [facility] Comment on above: Performed By: #### T HYR, HA1C, CBCA, 92642-3 #### [facility] ([id number]) [address], [address] [place] [address] Neutrophils/100 WBC (Bld) 59.9 % Normal [facility] Comment on above: Performed By: #### T HYR, HA1C, CBCA, 61707-5 #### [facility] ([id number]) [address] [address] [place] [address] Platelet mean volume (Bld) [Entitic vol] 8.5 fL Normal 7-12 [facility] Comment on above: Performed By: #### T HYR, HA1C, CBCA, 04614-0 #### [facility] ([id number]) [address], [address] [place] [address] Platelets (Bld) [#/Vol] 272 10*3/uL Normal 150-450 [facility] Comment on above: Performed By: #### T HYR, HA1C, CBCA, 78321-7 #### [facility] ([id number]) [address] [address] [place] [address] RBC COUNT 4.83 X10E12/L Normal 3.80-5.20 [facility] Comment on above: Performed By: #### T HYR, HA1C, CBCA, 09041-1 #### [facility] ([id number]) [address] [address] [place] [address] WBC (Bld) [#/Vol] 4.7 10*3/uL Normal 4.0-11.0 [facility] Comment on above: Performed By: #### T HYR, HA1C, CBCA, 13418-7 #### [facility] ([id number]) [address] [address] [place] [address] HGB A1C (GLYCO-HGB)on 2023 Glucose [Mass/Vol] 97 mg/dL Normal [facility] Comment on above: Performed By: #### T HYR, HA1C, CBCA, 61947-0 #### [facility] ([id number]) [address] [address] [place] [address] HbA1c (Bld) [Mass fraction] 5.0 % Normal 4.4-5.6 [facility] Comment on above: Result Comment: NOTE ADA Guidelines Result HgbA1c Normal : less than 5.7 % Prediabetes : 5.7 % to 6.4 % Diabetes : > 6.4 % Use with caution in patients with abnormal hemoglobin variants as the half-life of red blood cells and in vivo glycation rates are affected. Performed By: #### T HYR, HA1C, CBCA, 57206-7 #### [facility] ([id number]) [address], [address] [place] [address] THYROID PROFILEon 02-29-2024 Free T4 [Mass/Vol] 0.67 ng/dL Normal 0.61-1.60 [facility] Comment on above: Performed By: #### T HYR, HA1C, CBCA, 19435-4 #### [facility] ([id number]) [address], [address] [place] [address] TSH 1.84 uIU/mL Normal 0.49-4.67 [facility] Comment on above: Performed By: #### T HYR, HA1C, CBCA, 52557-0 #### [facility] ([id number]) [address], [address] [place] [address] Vitamin D+Metabolites [Mass/ Vol]on 02-29-2024 VITAMIN D 25 HYD TOT 32.3 ng/mL Normal 30-100 [facility] Comment on above: Result Comment: Vitamin D status 25 [place] Vitamin D Deficiency <20 ng/mL Insufficiency 20-29 ng/mL Sufficiency 30-100 ng/mL Toxicity >100 ng/mL NOTE: A pediatric reference range has not been established by the solutions executive cloud sales of this kit. The [place] [employer] recommends a Vitamin D level of = or >20ng/mL in infants and children. Performed By: #### 2 4331-1, THYR, CBCA, CMP, 97133-4 #### [facility] ([id number]) [address] [facility] [place] [address] XR LUMBAR SPINE AP, LATERAL, FLEXION AND [...] Chun MD on 12/03/2023 10:04 AM Normal [facility] XR SPINE CERVICAL 3 VWS OR L [...] Jay MD on 12/02/2023 7:06 AM Normal [facility] CBC AND AUTO DIFFon 11-30-19 ABSOLUTE BASOPHIL 0.0 X10E9/L Normal 0.0-0.2 [facility] Comment on above: Performed By: #### 2 4331-1, THYR, CBCA, CMP, 52316-2 #### [facility] ([id number]) [address] [address] [place] [address] ABSOLUTE NEUTROPHIL 2.5 X10E9/L Normal 1.5-6.6 [facility] Comment on above: Performed By: #### 2 4331-1, THYR, CBCA, CMP, 61947-4 #### [facility] ([id number]) [address], [address] [place] [address] Basophils/100 WBC (Bld) 0.5 % Normal [facility] Comment on above: Performed By: #### 2 4331-1, THYR, CBCA, CMP, 48700-8 #### [facility] ([id number]) [address] [address] [place] [address] Eosinophils (Bld) [#/Vol] 0.0 10*3/uL Normal 0.0-0.4 [facility] Comment on above: Performed By: #### 2 4331-1, THYR, CBCA, CMP, 68045-8 #### [facility] ([id number]) [address] [address] [place] [address] Eosinophils/100 WBC (Bld) 1.2 % Normal [facility] Comment on above: Performed By: #### 2 4331-1, THYR, CBCA, CMP, 47562-9 #### [facility] ([id number]) [address] [address] [place] [address] Erythrocyte distribution width (RBC) [Ratio] 13.7 % Normal 11.5-15.0 [facility] Comment on above: Performed By: #### 2 4331-1, THYR, CBCA, CMP, 65868-5 #### [facility] ([id number]) [address] [address] [place] [address] Hematocrit (Bld) [Volume fraction] 43.0 % Normal 35-47 [facility] Comment on above: Performed By: #### 2 4331-1, THYR, CBCA, CMP, 60312-2 #### [facility] ([id number]) [address], [address] [place] [address] Hemoglobin (Bld) [Mass/Vol] 15.0 g/dL Normal 11.7-15.5 [facility] Comment on above: Performed By: #### 2 4331-1, THYR, CBCA, CMP, 70709-2 #### [facility] ([id number]) [address], [facility] [address] [place] [address] Lymphocytes (Bld) [#/Vol] 0.9 10*3/uL Low 1.0-3.5 [facility] Comment on above: Performed By: #### 2 4331-1, THYR, CBCA, CMP, 58357-6 #### [facility] ([id number]) [address], [address] [place] [address] Lymphocytes/100 WBC (Bld) 23.6 % Normal [facility] Comment on above: Performed By: #### 2 4331-1, THYR, CBCA, CMP, 73585-2 #### [facility] ([id number]) [address], [address] [place] [address] MCH (RBC) [Entitic mass] 32.2 pg Normal 27-34 [facility] Comment on above: Performed By: #### 2 4331-1, THYR, CBCA, CMP, 49347-6 #### [facility] ([id number]) [address] [address] [place] [address] MCHC (RBC) [Mass/Vol] 35.0 g/dL Normal 32-36 [facility] Comment on above: Performed By: #### 2 4331-1, THYR, CBCA, CMP, 58113-3 #### [facility] ([id number]) [address], [address] [place] [address] MCV (RBC) [Entitic vol] 92 fL Normal 80-100 [facility] Comment on above: Performed By: #### 2 4331-1, THYR, CBCA, CMP, 55488-9 #### [facility] ([id number]) [address], [address] [place] [address] Monocytes (Bld) [#/Vol] 0.3 10*3/uL Normal 0-0.9 [facility] Comment on above: Performed By: #### 2 4331-1, THYR, CBCA, CMP, 48130-0 #### [facility] ([id number]) [address] [place] [address] Monocytes/100 WBC (Bld) 7.0 % Normal [facility] Comment on above: Performed By: #### 2 4331-1, THYR, CBCA, CMP, 23189-7 #### [facility] ([id number]) [address], [address] [place] [address] Neutrophils/100 WBC (Bld) 67.7 % Normal [facility] Comment on above: Performed By: #### 2 4331-1, THYR, CBCA, CMP, 12288-9 #### [facility] ([id number]) [address], [address] [place] [address] Platelet mean volume (Bld) [Entitic vol] 8.7 fL Normal 7-12 [facility] Comment on above: Performed By: #### 2 4331-1, THYR, CBCA, CMP, 34046-0 #### [facility] ([id number]) [address] [place] [address] Platelets (Bld) [#/Vol] 186 10*3/uL Normal 150-450 [facility] Comment on above: Performed By: #### 2 4331-1, THYR, CBCA, CMP, 59130-1 #### [facility] ([id number]) [address], [address] [place] [address] RBC COUNT 4.67 X10E12/L Normal 3.80-5.20 [facility] Comment on above: Performed By: #### 2 4331-1, THYR, CBCA, CMP, 43437-2 #### [facility] ([id number]) [address] [address] [place] [address] WBC (Bld) [#/Vol] 3.7 10*3/uL Low 4.0-11.0 [facility] Comment on above: Performed By: #### 2 4331-1, THYR, CBCA, CMP, 12734-8 #### [facility] ([id number]) [address] [place] [address] COMPREHENSIVE METABOLIC PANE Mika 11-30-2023 Albumin [Mass/Vol] 4.4 g/dL Normal 3.2-5.3 [facility] Comment on above: Performed By: #### 2 4331-1, THYR, CBCA, CMP, 16504-0 #### [facility] ([id number]) [address] [address] [place] [address] ALP [Catalytic activity/Vol] 65 U/L Normal 39-130 [facility] Comment on above: Performed By: #### 2 4331-1, THYR, CBCA, CMP, 58374-0 #### [facility] ([id number]) [address], [address] [place] [address] ALT [Catalytic activity/Vol] 59 U/L High 0-31 [facility] Comment on above: Performed By: #### 2 4331-1, THYR, CBCA, CMP, 07196-7 #### [facility] ([id number]) [address], [address] [place] [address] Anion gap [Moles/Vol] 6 mmol/L Normal 5-15 [facility] Comment on above: Performed By: #### 2 4331-1, THYR, CBCA, CMP, 93854-3 #### [facility] ([id number]) [address], [address] [place] [address] AST [Catalytic activity/Vol] 31 U/L Normal 0-41 [facility] Comment on above: Performed By: #### 2 4331-1, THYR, CBCA, CMP, 43154-6 #### [facility] ([id number]) [address] [place] [address] Bilirubin [Mass/Vol] 0.8 mg/dL Normal 0.3-1.2 [facility] Comment on above: Performed By: #### 2 4331-1, THYR, CBCA, CMP, 06865-4 #### [facility] ([id number]) [address], [address] [place] [address] Calcium [Mass/Vol] 9.1 mg/dL Normal 8.5-10.5 [facility] Comment on above: Performed By: #### 2 4331-1, THYR, CBCA, CMP, 29153-8 #### [facility] ([id number]) [address] [place] [address] Chloride [Moles/Vol] 103 mmol/L Normal 98-109 [facility] Comment on above: Performed By: #### 2 4331-1, THYR, CBCA, CMP, 23704-8 #### [facility] ([id number]) [address] [place] [address] CO2 [Moles/Vol] 28 mmol/L Normal 22-32 [facility] Comment on above: Performed By: #### 2 4331-1, THYR, CBCA, CMP, 30249-7 #### [facility] ([id number]) [address] [place] [address] Creatinine [Mass/Vol] 0.86 mg/dL Normal 0.40-1.00 [facility] Comment on above: Result Comment: METH OD TRACEABLE TO IDMS STANDARD Performed By: #### 2 4331-1, THYR, CBCA, CMP, 27940-3 #### [facility] ([id number]) [address] [place] [address] GFR/1.73 sq M.predicted among non-blacks MDRD (S/P/Bld) [Vol rate/Area] 89 mL/min/{1.73_m2} Normal >59 [facility] Comment on above: Result Comment: Reported eGFR is based on the CKD-EPI 2020 equation that does not use a race coefficient. Performed By: #### 2 4331-1, THYR, CBCA, CMP, 72435-1 #### [facility] ([id number]) [address], [address] [place] [address] Glucose [Mass/Vol] 97 mg/dL Normal 65-99 [facility] Comment on above: Performed By: #### 2 4331-1, THYR, CBCA, CMP, 50566-9 #### [facility] ([id number]) [address] [address] [place] [address] Potassium [Moles/Vol] 3.8 mmol/L Normal 3.5-5.0 [facility] Comment on above: Performed By: #### 2 4331-1, THYR, CBCA, CMP, 49828-2 #### [facility] ([id number]) [address], [address] [place] [address] Protein [Mass/Vol] 6.6 g/dL Normal 6.0-8.0 [facility] Comment on above: Performed By: #### 2 4331-1, THYR, CBCA, CMP, 90324-4 #### [facility] ([id number]) [address], [address] [place] [address] Sodium [Moles/Vol] 137 mmol/L Normal 134-146 [facility] Comment on above: Performed By: #### 2 4331-1, THYR, CBCA, CMP, 91128-4 #### [facility] ([id number]) [address], [address] [place] [address] Urea nitrogen [Mass/Vol] 9 mg/dL Normal 5-23 [facility] Comment on above: Performed By: #### 2 4331-1, THYR, CBCA, CMP, 37702-8 #### [facility] ([id number]) [address], [address] [place] [address] Lipid 1996 panelon 4 Cholesterol [Mass/Vol] 236 mg/dL High 150-200 [facility] Comment on above: Performed By: #### 2 4331-1, THYR, CBCA, CMP, 98304-3 #### [facility] ([id number]) [address], [address] [place] [address] Cholesterol in HDL [Mass/Vol] 48 mg/dL Normal >39 [facility] Comment on above: Result Comment: HDL <40 mg/dL - High Risk HDL > or = 40mg/dL- Desirable HDL >60 mg/dL - Negative Risk Performed By: #### 2 4331-1, THYR, CBCA, CMP, 35183-8 #### [facility] ([id number]) [address], [address] [place] [address] Cholesterol in LDL [Mass/Vol] 124 mg/dL Normal <130 [facility] Comment on above: Result Comment: LDL <100 mg/dL - Desirable LDL >160 mg/dL - High Risk Performed By: #### 2 4331-1, THYR, CBCA, CMP, 01681-7 #### [facility] ([id number]) [address], [address] [place] [address] Cholesterol in VLDL [Mass/Vol] 64 mg/dL High 0-30 [facility] Comment on above: Performed By: #### 2 4331-1, THYR, CBCA, CMP, 52710-1 #### [facility] ([id number]) [address], [facility] [address] [place] [address] CHOLESTEROL:HDL 4.9 Normal 1.0-5.0 [facility] Comment on above: Performed By: #### 2 4331-1, THYR, CBCA, CMP, 26544-4 #### [facility] ([id number]) [address] [address] [place] [address] Triglyceride [Mass/Vol] 318 mg/dL High 27-150 [facility] Comment on above: Performed By: #### 2 4331-1, THYR, CBCA, CMP, 34157-1 #### [facility] ([id number]) [address] [place] [address] THYROID PROFILEon 11-30-2023 Free T4 [Mass/Vol] 0.62 ng/dL Normal 0.61-1.60 [facility] Comment on above: Performed By: #### 2 4331-1, THYR, CBCA, CMP, 36691-9 #### [facility] ([id number]) [address] [place] [address] TSH 0.97 uIU/mL Normal 0.49-4.67 [facility] Comment on above: Performed By: #### 2 4331-1, THYR, CBCA, CMP, 12022-2 #### [facility] ([id number]) [address] [place] [address] Vitamin D+Metabolites [Mass/ Vol]on 11-30-2023 VITAMIN D 25 HYD TOT 25.5 ng/mL Low 30-100 [facility] Comment on above: Result Comment: Vitamin D status 25 [place] Vitamin D Deficiency <20 ng/mL Insufficiency 20-29 ng/mL Sufficiency 30-100 ng/mL Toxicity >100 ng/mL NOTE: A pediatric reference range has not been established by the solutions executive cloud sales of this kit. The [place] [employer] recommends a Vitamin D level of = or >20ng/mL in infants and children. Performed By: #### 2 4331-1, THYR, CBCA, CMP, 44067-3 #### [facility] ([id number]) [address] [place] [address] Covid-19 PCR (CVDTB)on 09-11 SARS-CoV-2 (COVID-19) RNA MEGAN+probe Ql (Unsp spec) Not detected Normal NOT DETECTED [facility] Comment on above: Result Comment: This test is not yet approved or cleared by the [place] FDA. When there are no FDA-approved or cleared tests available, and other criteria are met, FDA can make tests available under an emergency access mechanism called an Emergency Use Authorization (EUA). The EUA for this test is supported by the Roastmaster of Health and Human Service's (HHS's) declaration [...] SARS-CoV-2. Performed By: #### C VDTB #### [facility] [address] [place] [address] Adis Warren Covid-19 PCR ([facility])on 09-11 SARS-CoV-2 (COVID-19) RNA MEGAN+probe Ql (Unsp spec) Not detected Normal NOT DETECTED [facility] Comment on above: Result Comment: This test is not yet approved or cleared by the [place] FDA. When there are no FDA-approved or cleared tests available, and other criteria are met, FDA can make tests available under an emergency access mechanism called an Emergency Use Authorization (EUA). The EUA for this test is supported by the Roastmaster of Health and Human Service's (HHS's) declaration [...] SARS-CoV-2. Performed By: #### C VDTB #### [facility] [address] [place] [address] Adis Warren OBSOLETEon 07-04-2021 OBSOLETE Refill (COURTNEY) MARITA MESSINA ([id number]) 1985 F Date Time Provider Department 07/04/21 [facility]MON[facility] MEDINA During your visit today, we recorded the following information about you: Ashtyn Kumarmasha Bazzi 07/04/2021 11:37 AM Signed Please see [...] Encounter Status:Closed by RAYMOND MEDINA on 07/05/21 [facility] OBSOLETEon 05-27-2021 OBSOLETE Refill ([facility]) MARITA MESSINA ([id number]) 1985 F Date Time Provider Department 05/27/21 RAYMOND MEDINA [facility] During your visit today, we [...] Encounter Status:Closed by RAYMOND MEDINA on 05/30/21 [facility] OBSOLETEon 04-26-2021 OBSOLETE Refill ([facility]) MARITA MESSINA ([id number]) 1985 F Date Time Provider Department 04/26/21 [...] Encounter Status:Closed by RAYMOND MEDINA on 04/27/21 [facility] Coding Summary.on 05-31-2019 Coding Summary. CODING DATE: 05/31/2019 [facility] STATUS: Home ([facility]) PAYOR: Medicaid EA DESCRIPTION 0390 LEVEL I PATHOLOGY ADMIT DX: REASON FOR VISIT DX: R87.610 Atypical squamous cells of undetermined significance on cytologic smear of cervix (ASC-US) FINAL DX: PRINCIPAL: N87.9 Dysplasia of cervix uteri, unspecified SECONDARY: R87.810 Cervical high risk human papillomavirus (HPV) DNA test positive [facility] STAT DESCRIPTION DOCTOR NAME DATE NOTE: The code number assigned matches the documented diagnosis and / or procedure in the patient's chart. However, the narrative phrase printed from the coding software may appear abbreviated, or result in slightly different terminology. Coded By: Prachi Andres Date Saved: 05/31/2019 06:25 am [facility] Gynecology Office/Clinic Not freddie 05-20-2019 Gynecology [...] and next steps Ordered: Colposcopy with biopsy 14681 Pathology Tissue Exam Pathology Tissue Exam Follow-up With When Contact Information She BINGHAM CNP In 1 year [email or web address] Additional Instructions: She BINGHAM CNP Only if needed [email or web address] Additional Instructions: Problem List/Past Medical History Ongoing [...] 2: Father and Grandparent. Hyperlipidemia: Father. Normal [facility] Comment on above: Result Comment: Elec tronically Signed By: She BINGHAM CNP\Date and Time Signed: 05/20/19 14:48 EDT Coding Summary.on 05-06-2019 Coding Summary. CODING DATE: 05/06/2019 FINAL [facility] STATUS: Home (Routine DC) PAYOR: Medicaid EA DESCRIPTION 0392 PAP SMEARS 0397 LEVEL II MICROBIOLOGY TESTS ADMIT DX: REASON FOR VISIT DX: R87.610 Atypical squamous cells of undetermined significance on cytologic smear of cervix (ASC-US) FINAL DX: PRINCIPAL: R87.610 Atypical squamous cells of undetermined significance on cytologic smear of cervix (ASC-US) SECONDARY: R87.810 Cervical high risk human papillomavirus (HPV) DNA test positive [facility] STAT DESCRIPTION DOCTOR NAME DATE NOTE: The code number assigned matches the documented diagnosis and / or procedure in the patient's chart. However, the narrative phrase printed from the coding software may appear abbreviated, or result in slightly different terminology. Coded By: Tish Dean CphT Date Saved: 05/06/2019 09:14 am Normal [facility] PAP 05-05-2019 Cytology report Cyto stain Doc (Cvx/Vag) Note Abnormal [facility] Comment on above: Result Comment: TEST S RESULT FLAG UNITS REF RANGE LAB Clinician Provided Cytology Information Source.............Cervix Other..............IUD No. of containers..01 ThinPrep Vial DIAGNOSIS: [A] 01 EPITHELIAL CELL ABNORMALITY. ATYPICAL SQUAMOUS CELLS OF UNDETERMINED SIGNIFICANCE (ASC-US). 01 Satisfactory for evaluation. Endocervical and/or squamous metaplastic cells (endocervical component) are present. 01 Maricarmen Stovall, Electronic Component Processor (ASCP) 01 Jennifer Lopes MD, Pathologist 01 [...] <-Panic Low,>-Panic High,A-Abnormal,AA-Critical Abnormal Performed at: [address] [address] Soraya Cabrera MD, Performed By: #### 1 [id number], [id number] #### [facility] [address] [place] [address] HPV 16+18+31+33+35+39+45 +51+52+56+58+59+68 DNA Probe+sig amp Ql (Cvx) Positive Abnormal Negative [facility] Comment on above: Result Comment: This high-risk HPV test detects thirteen high-risk types (16/18/31/33/35/39/45/51/52/56/58/59/68) without differentiation. Performed at: [address] [id number] MD Rick Lira Performed at: =G [facility] [id number] MD Rick Lira Performed By: #### 1 [id number], [id number] #### [facility] [address] [place] [address] Physician Read Leyda 019 Pathologist review Noe (Unsp spec) [Interp] Note [facility] Comment on above: Result Comment: TEST S RESULT FLAG UNITS REF RANGE LAB Physician Read Pap Note 01 Performed FLAG LEGEND: L-Low Normal,H-High Normal,LL-Alert Low,HH-Alert High <-Panic Low,>-Panic High,A-Abnormal,AA-Critical Abnormal Performed at: 01 [facility] [address] [place] [address] Soraya Cabrera MD, Performed at: [facility] [address] [id number] MD Rick Lira Performed By: #### 1 [id number], [id number] #### [facility] [address] [place] [address] Gynecology Office/Clinic Not freddie 04-29-2019 Gynecology Office/Clinic [...] results Ordered: Office Visit Level 3 Est [id number] PAP [id number] w/HPV HR US Pelvis Non-OB Complete 2. Pelvic pain (R10.2: Pelvic and perineal pain) US ordered, will fax to [place] Ordered: Office Visit Level 3 Est 00763 US Pelvis Non-OB Complete Visit for routine certified nurse midwife exam (Z01.419: Encounter for gynecological examination (general) [...] Preventive Med 18 to 39 years Est 15606 Follow-up No qualifying data available Problem List/Past [...] 2: Father and Grandparent. Hyperlipidemia: Father. Normal [facility] Comment on above: Result Comment: Elec tronically Signed By: She BINGHAM CNP\Date and Time Signed: 04/29/19 11:36 EDT PAP [id number] 04-29-2019 Gynecological Body Site CERVIX [facility] Comment on above: Performed By: #### 1 [id number], [id number] #### [facility] [address] [place] [address] Other Patient Information IUD Normal [facility] Comment on above: Performed By: #### 1 [id number], [id number] #### [facility] [address] [place] [address] Vital Signs Date Time Vital Sign Value Performing Clinician Facility 02-06-2025 11:13-0400 Body height 157.5 cm Dorcas Peralta [employer] Work Phone: [facility] 02-06-2025 11:13-0400 Body mass index (BMI) [Ratio] 37.09 kg/m2 Dorcas Peralta [employer] Work Phone: [facility] 02-06-2025 11:13040 Body weight 91.99 kg Dorcas Peralta [employer] Work Phone: [facility] 02-06-2025 11:13-0400 Diastolic blood pressure 70 mm[Hg] Dorcas Peralta [employer] Work Phone: [facility] 02-06-2025 11:13-0400 Heart rate 83 /min Dorcas Peralta [employer] Work Phone: [facility] 02-06-2025 11:13-0400 SaO2% (BldA) [Mass fraction] 97 % Dorcas Peralta [employer] Work Phone: [facility] 02-06-2025 11:13-0400 Systolic blood pressure 122 mm[Hg] Dorcas Peralta [employer] Work Phone: [facility] 10-27-2024 16:10-0500 Body height 157.5 cm Sherie Maria DPM Work Phone: [facility] 10-27-2024 16:10-0500 Body mass index (BMI) [Ratio] 40.42 kg/m2 Sherie Maria DPM Work Phone: [facility] 10-27-2024 16:10-0500 Body weight 100.25 kg Sherie Maria DPM Work Phone: [facility] 09-15-2024 11:03-0500 Body height 157.5 cm Dorcas Peralta [employer] Work Phone: [facility] 09-15-2024 11:03-0500 Body mass index (BMI) [Ratio] 40.57 kg/m2 Dorcas Peralta [employer] Work Phone: [facility] 09-15-2024 11:03-0500 Body weight 100.61 kg Dorcas Peralta [employer] Work Phone: [facility] 09-15-2024 11:03-0500 Diastolic blood pressure 80 mm[Hg] Dorcas Peralta [employer] Work Phone: [facility] 09-15-2024 11:03-0500 Heart rate 104 /min Dorcas Peralta [employer] Work Phone: [facility] 09-15-2024 11:03-0500 SaO2% (BldA) [Mass fraction] 97 % Dorcas Peralta [employer] Work Phone: [facility] 09-15-2024 11:03-0500 Systolic blood pressure 116 mm[Hg] Dorcas Peralta [employer] Work Phone: [facility] 08-04-2024 15:35-0500 Body height 157.5 cm Sherie Maria DPM Work Phone: [facility] 08-04-2024 15:35-0500 Body mass index (BMI) [Ratio] 40.6 kg/m2 Sherie Maria DPM Work Phone: [facility] 08-04-2024 15:35-0500 Body weight 100.7 kg Sherie Maria DPM Work Phone: [facility] 06-16-2024 10:54-0400 Body height 157.5 cm Dorcas Peralta [employer] Work Phone: [facility] 06-16-2024 10:54-0400 Body mass index (BMI) [Ratio] 39.36 kg/m2 Dorcas Peralta [employer] Work Phone: [facility] 06-16-2024 10:54-0400 Body weight 97.61 kg Dorcas Peralta [employer] Work Phone: [facility] 06-16-2024 10:54-0400 Diastolic blood pressure 76 mm[Hg] Dorcas Peralta [employer] Work Phone: [facility] 06-16-2024 10:54-0400 Heart rate 98 /min Dorcas Peralta [employer] Work Phone: [facility] 06-16-2024 10:54-0400 SaO2% (BldA) [Mass fraction] 97 % Dorcas Peralta [employer] Work Phone: [facility] 06-16-2024 10:54-0400 Systolic blood pressure 120 mm[Hg] Dorcas Peralta [employer] Work Phone: [facility] 05-23-2024 10:24-0400 Body mass index (BMI) [Ratio] 38.99 kg/m2 Dorcas Peralta [employer] Work Phone: [facility] 05-23-2024 10:24-0400 Body weight 96.71 kg Dorcas Peralta [employer] Work Phone: [facility] 05-23-2024 10:24-0400 Diastolic blood pressure 72 mm[Hg] Dorcas Peralta [employer] Work Phone: [facility] 05-23-2024 10:24-0400 Heart rate 93 /min Dorcas Peralta [employer] Work Phone: [facility] 05-23-2024 10:24-0400 SaO2% (BldA) [Mass fraction] 99 % Dorcas Peralta [employer] Work Phone: [facility] 05-23-2024 10:24-0400 Systolic blood pressure 122 mm[Hg] Dorcas Peralta [employer] Work Phone: [facility] 05-14-2024 11:30-0400 Body height 157.5 cm Dorcas Peralta [employer] Work Phone: [facility] 05-14-2024 11:30-0400 Body mass index (BMI) [Ratio] 39.03 kg/m2 Dorcas Peralta [employer] Work Phone: [facility] 05-14-2024 11:30-0400 Body weight 96.8 kg Dorcas Peralta [employer] Work Phone: [facility] 05-14-2024 11:30-0400 Diastolic blood pressure 68 mm[Hg] Dorcas Peralta [employer] Work Phone: [facility] 05-14-2024 11:30-0400 Heart rate 109 /min Dorcas Peralta [employer] Work Phone: [facility] 05-14-2024 11:30-0400 SaO2% (BldA) [Mass fraction] 98 % Dorcas Peralta [employer] Work Phone: [facility] 05-14-2024 11:30-0400 Systolic blood pressure 110 mm[Hg] Dorcas Peralta [employer] Work Phone: [facility] 05-05-2024 10:18-0400 Body height 157.5 cm Jurgen English MD Work Phone: [facility] 05-05-2024 10:18-0400 Body mass index (BMI) [Ratio] 38.67 kg/m2 Jurgen English MD Work Phone: [facility] 05-05-2024 10:18-0400 Body weight 95.89 kg Jurgen English MD Work Phone: [facility] 05-05-2024 10:18-0400 Diastolic blood pressure 78 mm[Hg] Jurgen English MD Work Phone: [facility] 05-05-2024 10:18-0400 Heart rate 99 /min Jurgen English MD Work Phone: [facility] 05-05-2024 10:18-0400 SaO2% (BldA) [Mass fraction] 99 % Jurgen English MD Work Phone: [facility] 05-05-2024 10:18-0400 Systolic blood pressure 118 mm[Hg] Jurgen English MD Work Phone: [facility] 11-10-2019 14:27-0500 BMI (Body Mass Index) 35.43 kg/m2 Bradley Simmons [facility] [place] 11-10-2019 14:27-0500 Body Temperature 97.59 [degF] [facility] [place] 11-10-2019 14:270500 Body weight 90.72 kg Bradley Simmons [facility] , [place] 11-10-2019 14:27-0500 BP Diastolic 65 mm[Hg] Bradley Simmons [facility] [place] 11-10-2019 14:27-0500 BP Systolic 102 mm[Hg] Bradley Simmons [facility] [place] 11-10-2019 14:0500 Height 160 cm Bradley Simmons [facility] [place] 11-10-2019 14:0500 Pulse Oximetry 99 % Bradley Simmons [facility] [place] Encounters Encounter Date Encounter Type Care Provider Facility Start: 08-19-2025 ambulatory Dorcas quintana PA-C Facility:[facility] Start: 02-06-2025 End: 02-06-2025 Bamboo flowsheet Dorcas Peralta [employer] Work Phone: [facility] Start: 02-06-2025 End: 02-06-2025 Bamboo flowsheet Dorcas Peralta [employer] Work Phone: [facility] Start: 02-06-2025 End: 02-06-2025 ambulatory DORCAS PERALTA Not Available Start: 02-06-2025 End: 02-06-2025 Office outpatient visit 25 minutes Dorcas Peralta [employer] Work Phone: [facility] Comment on above: Obstructive sleep ap deann syndrome (Primary Dx); Obesity, Class II, BMI 35-39.9; Chronic bilateral low back pain without sciatica Start: 02-03-2025 ambulatory Caitlyn Sparrow MD Facility:[facility] Start: 01-26-2025 End: 01-26-2025 ambulatory SHERIE MARIA Not Available Start: 01-26-2025 End: 01-26-2025 Bamboo flowsheet Sherie Maria DPM Work Phone: [facility] Start: 01-26-2025 End: 01-26-2025 Bamboo flowsheet Sherie Maria DPM Work Phone: [facility] Start: 12-22-2024 End: 12-22-2024 ambulatory Caitlyn Sparrow MD Facility:[facility] Start: 12-08-2024 End: 12-08-2024 ambulatory Sana Radford MD Facility:[facility] Start: 11-24-2024 End: 11-24-2024 Orders Only Celeste Dhaliwal BUS OPERATOR[employer] Work Phone: [facility] Start: 11-03-2024 End: 11-03-2024 Refill Nehal Alvarado PRICING CONSULTANT Work Phone: [facility] Comment on above: Obstructive sleep ap deann syndrome Start: 10-27-2024 End: 10-27-2024 Office outpatient visit 15 minutes Sherie Maria DPM Work Phone: [facility] Comment on above: Dermatophytosis of n ail (Primary Dx); Dystrophic nail; Pain around toenail, right foot; Pain around toenail, left foot Start: 10-27-2024 End: 10-27-2024 ambulatory SHERIE MARIA Not Available Start: 10-27-2024 End: 10-27-2024 Bamboo flowsheet Sherie Maria DPM Work Phone: [facility] Start: 10-27-2024 End: 10-27-2024 Bamboo flowsheet Sherie Maria DPM Work Phone: [facility] Start: 10-13-2024 End: 10-13-2024 ambulatory Sana Radford MD Facility:[facility] Start: 09-22-2024 End: 09-22-2024 Orders Only Dorcas Peralta [employer] Work Phone: [facility] Comment on above: Obstructive sleep ap deann syndrome Start: 09-20-2024 End: 09-22-2024 Refill Jo-Ann Gee MD Work Phone: [facility] Comment on above: Tremor (Primary Dx) Start: 09-15-2024 End: 09-15-2024 Bamboo flowsheet Dorcas Peralta [employer] Work Phone: [facility] Start: 09-15-2024 End: 09-15-2024 Bamboo flowsheet Dorcas Kathryn [employer] Work Phone: [facility] Start: 09-15-2024 End: 09-15-2024 ambulatory CAITLYN Griffiths KY[facility] Start: 09-15-2024 End: 09-15-2024 Office outpatient visit 25 minutes Dorcas Peralta NP Work Phone: [facility] Comment on above: Morbid (severe) obes ity due to excess calories (CMS/HCC) (Primary Dx); BOGDAN (obstructive sleep apnea); Hepatic steatosis; Mixed hyperlipidemia (CMS/HCC); Elevated liver enzymes Start: 09-01-2024 End: 09-01-2024 ambulatory Sana Radford MD Facility: [facility] Start: 08-13-2024 End: 08-13-2024 ambulatory Dorcas Thomas PA-C Facility:[facility] Start: 08-04-2024 End: 08-04-2024 Office outpatient new 30 minutes Sherie Maria DPM Work Phone: [facility] Comment on above: Tinea pedis of both feet (Primary Dx); Chronic dermatitis of feet; Dermatophytosis of nail; Pain around toenail, right foot; Pain around toenail, left foot Start: 08-04-2024 End: 08-04-2024 ambulatory SHERIE MARIA Not Available Start: 08-04-2024 End: 08-04-2024 Bamboo flowsheet Sherie Maria DPM Work Phone: [facility] Start: 08-04-2024 End: 08-04-2024 Bamboo flowsheet Sherie Maria DPM Work Phone: [facility] Start: 07-04-2024 End: 07-04-2024 ambulatory [facility] Start: 06-16-2024 End: 06-16-2024 Bamboo flowsheet Dorcas Peralta [employer] Work Phone: [facility] Start: 06-16-2024 End: 06-16-2024 Bamboo flowsheet Dorcas Peralta [employer] Work Phone: [facility] Start: 06-16-2024 End: 06-16-2024 Office outpatient visit 25 minutes Dorcas Peralta NP Work Phone: [facility] Comment on above: Morbid (severe) obes ity due to excess calories (CMS/HCC) (Primary Dx); Bipolar disorder in full remission, most recent episode unspecified type (CMS/HCC); Mixed dyslipidemia (CMS/HCC) Start: 06-16-2024 End: 06-16-2024 ambulatory DORCAS KATHRYN Not Available Start: 06-09-2024 End: 06-10-2024 Telephone encounter Marita Richardson RN [facility] Comment on above: Cholesterol labs Start: 05-26-2024 End: 05-29-2024 Refill Nehal Alvarado PRICING CONSULTANT Work Phone: [facility] Comment on above: Gastroesophageal ref lux disease without esophagitis Rash (Primary Dx); Obesity, Class II, BMI 35-39.9 Start: 05-23-2024 End: 05-23-2024 Office outpatient visit 25 minutes Dorcas Peralta NP Work Phone: [facility] Comment on above: Folliculitis (Primar y Dx); Obesity, Class II, BMI 35-39.9; Morbid (severe) obesity due to excess calories (CMS/HCC); Gastro-esophageal reflux disease without esophagitis; Body mass index (BMI) 39.0-39.9, adult; Bipolar disorder, unspecified (CMS/HCC) Start: 05-23-2024 End: 05-23-2024 ambulatory DORCAS PERALTA Not Available Start: 05-22-2024 End: 05-22-2024 Orders Only Dorcas Peralta [employer] Work Phone: [facility] Comment on above: Dermatitis (Primary Dx) Start: 05-19-2024 End: 05-19-2024 [facility] Start: 05-19-2024 End: 05-19-2024 ambulatory [facility] Start: 05-14-2024 End: 05-14-2024 Bamboo flowsheet Dorcas Peralta [employer] Work Phone: [facility] Start: 05-14-2024 End: 05-14-2024 Bamboo flowsheet Dorcas Peralta [employer] Work Phone: [facility] Start: 05-14-2024 End: 05-14-2024 Office outpatient new 45 minutes Dorcas Peralta [employer] Work Phone: [facility] Comment on above: Obesity, Class II, B MT 35-39.9 (Primary Dx); Encounter to establish care Start: 05-14-2024 End: 05-14-2024 ambulatory DORCAS PERALTA Not Available Start: 05-05-2024 End: 05-05-2024 Office outpatient new 45 minutes Luiza Webb DO Work Phone: [facility] Comment on above: Hypertriglyceridemia (Primary Dx); Sinus tachycardia; Chest pain, unspecified type; Palpitation; Vapes nicotine containing substance Start: 05-05-2024 End: 05-05-2024 ambulatory [facility] Start: 05-02-2024 End: 05-02-2024 Chart abstracting Scanning Provider External [facility] Start: 03-24-2024 End: 03-24-2024 [facility] Start: 03-23-2024 End: 03-24-2024 Emergency department patient visit LUIZA WEBB [facility] Start: 03-23-2024 End: 03-23-2024 Emergency department patient visit CAITLYN Griffiths [facility] Start: 03-10-2024 End: 04-10-2024 ambulatory [facility] Start: 03-08-2024 End: 03-08-2024 Emergency department patient visit CAITLYN Griffiths [facility] Start: 03-03-2024 End: 03-03-2024 ambulatory Sana Radford MD Facility:[facility] Start: 02-29-2024 End: 02-29-2024 ambulatory CAITLYN Griffiths [facility] Start: 02-18-2024 End: 02-18-2024 ambulatory Sana Radford MD Facility:[facility] Start: 02-11-2024 End: 03-10-2024 ambulatory [facility] Start: 01-23-2024 End: 02-09-2024 ambulatory [facility] Start: 11-30-2023 End: 11-30-2023 ambulatory [facility] Start: 11-30-2023 Encounter for genera l adult medical examination without abnormal findings [facility] Start: 08-09-2023 Refill Raymond Pierre ph, MD [...] Start: 03-08-2022 End: 03-09-[address] CAITLYN Griffiths KYARA Facility:[facility] Start: 02-23-2022 End: 02-23-2022 ambulatory Karel Elaine Other [employer] Other Start: 02-23-2022 Telephone encounter Karel Elaine [facility] Start: 01-09-2022 Refill Raymond Pierre ph, MD Work Phone: Neurology Comment on above: Refill Request Start: 01-04-2022 End: 01-04-2022 ambulatory Karel Elaine Other [employer] Other Start: 01-04-2022 Telephone encounter Karel Elaine [facility] Start: 12-12-2021 End: 12-12-2021 ambulatory Karel Elaine Other [employer] Other Start: 12-12-2021 Telephone encounter Karel Elaine [facility] Start: 11-30-2021 End: 12-01-[address] MUNIRA DEAL Facility:[facility] Start: 11-16-2021 End: 11-16-2021 ambulatory Karel Elaine Other [employer] Other Start: 11-16-2021 Telephone encounter Karel Elaine [facility] Start: 10-11-2021 Encounter for prepro cedural laboratory examination DR MUNIRA DEAL [facility] [place] Start: 10-11-2021 End: 10-11-[address] MUNIRA [...] 08-03-2021 End: 08-03-2021 ambulatory Karel Elaine Other [facility] Other Start: 08-03-2021 Telephone encounter Karel Elaine [facility] Start: 07-28-2021 End: 07-28-2021 ambulatory Karel Elaine Other [facility] Other Start: 07-28-2021 Telephone encounter Karel Elaine [facility] Start: 11-10-2019 End: 11-11-2019 Patient encounter procedure BRADLEY SIMMONS [facility] Start: 11-10-2019 End: 11-10-2019 Subsequent hospital visit by physician Bradley Simmons Work Phone: [facility] Comment on above: Arrived Procedures Date Procedure Procedure Detail Performing Clinician Start: 10-03-2021 Adult depression screening assessment Raymond Medina MD Work Phone: Plan of Treatment Date Care Activity Detail Author Start: 2036 Shingles Vaccine (1 of 2) Shingles Vaccine (1 of 2) [place], [place] Start: 06-10-2025 Influenza vaccination [facility] Comment on above: Postponed from 05/11/2024 (Patient Refus ed) Postponed from 05/11 (Patient Refused) Start: 05-19-2025 Adult BMI Screening Adult BMI Screening [facility] Start: 05-19-2025 Tobacco Screening Tobacco Screening [facility] Start: 05-08-2025 End: 05-08-2025 Patient encounter procedure 05/08/2025 11:00 AM EDT Office Visit [facility] [address] [place] [address] Dorcas Peralta NP [address] [place] [address] [facility] Start: 05-05-2025 Adult BMI Screening Adult BMI Screening [facility] Start: 05-05-2025 Tobacco Screening Tobacco Screening [facility] Start: 04-28-2025 End: 04-28-2025 Patient encounter procedure 04/28/2025 4:00 PM EDT Office Visit [facility] [address] [place] [phone] Sherie Maria DPM [address] [place] [address] [facility] Start: 03-23-2025 Adult BMI Screening Adult BMI Screening [facility] Start: 03-23-2025 Tobacco Screening Tobacco Screening [facility] Start: 01-26-2025 End: 01-26-2025 Patient encounter procedure [facility] Comment on above: Arrived Start: 12-15-2024 End: 12-15-2024 Patient encounter procedure 12/15/2024 11:00 AM EDT Office Visit [facility] [address] [place] [phone] Dorcas Peralta NP [address] [place] [address] [facility] Start: 11-08-2024 Medicare Annual Wellness (AWV) Medicare Annual Wellness (V) [facility] Start: 10-27-2024 End: 10-27-2024 Patient encounter procedure [facility] Comment on above: Arrived Start: 09-15-2024 End: 09-15-2024 Patient encounter procedure 09/15/2024 11:00 AM EST Office Visit [facility] [address] [place] [phone] Dorcas Peralta NP [address] [place] [address] [facility] Start: 09-08-2024 End: 06-09-2025 Alanine aminotransferase [Enzymatic activity/volume] in Serum or Plasma ALT Lab Routine Medication monitoring encounter Other hyperlipidemia Elevated triglycerides with high cholesterol Elevated LDL cholesterol level Severe obesity (BMI 35.0-39.9) with comorbidity (CMS-HCC) Other fatigue Expected: 09/08/2024 (Approximate), Expires: 06/09/2025 [facility] Comment on above: Expected: 09/08/2024 (Approximate), Expi res: 06/09/2025 Start: 09-08-2024 End: 06-09-2025 Aspartate aminotransferase [Enzymatic activity/volume] in Serum or Plasma AST Lab Routine Medication monitoring encounter Other hyperlipidemia Elevated triglycerides with high cholesterol Elevated LDL cholesterol level Severe obesity (BMI 35.0-39.9) with comorbidity (CMS-HCC) Other fatigue Expected: 09/08/2024 (Approximate), Expires: 06/09/2025 [facility] Comment on above: Expected: 09/08/2024 (Approximate), Expi res: 06/09/2025 Start: 09-08-2024 End: 06-09-2025 Cholesterol in LDL [Mass/volume] in Serum or Plasma LDL cholesterol, direct Lab Routine Medication monitoring encounter Other hyperlipidemia Elevated triglycerides with high cholesterol Elevated LDL cholesterol level Severe obesity (BMI 35.0-39.9) with comorbidity (CMS-HCC) Other fatigue Expected: 09/08/2024 (Approximate), Expires: 06/09/2025 Dr. Tariff Work Phone: Comment on above: Expected: 09/08/2024 (Approximate), Expi res: 06/09/2025 Start: 09-08-2024 End: 06-09-2025 Triglyceride [Mass/volume] in Serum or Plasma Triglycerides Lab Routine Medication monitoring encounter Other hyperlipidemia Elevated triglycerides with high cholesterol Elevated LDL cholesterol level Severe obesity (BMI 35.0-39.9) with comorbidity (CMS-HCC) Other fatigue Expected: 09/08/2024 (Approximate), Expires: 06/09/2025 [facility] Comment on above: Expected: 09/08/2024 (Approximate), Expi res: 06/09/2025 Start: 08-04-2024 End: 08-04-2024 Patient encounter procedure 08/04/2024 3:30 PM EST Office Visit [facility] [address] [place] [address] Sherie Maria DPM [address] [place] [address] Arrived [facility] Comment on above: Arrived Start: 06-16-2024 End: 06-16-2024 Patient encounter procedure [facility] Comment on above: Arrived Start: 05-14-2024 End: 05-14-2024 Patient encounter procedure 05/14/2024 11:30 AM EDT Office Visit [facility] [address] [facility] [place] [phone] Dorcas Peralta NP [address] [facility] [place] [address] Arrived [facility] Comment on above: Arrived Start: 05-11-2024 COVID-19 Vaccine ( season) COVID-19 Vaccine ( season) [facility] Start: 05-11-2024 COVID-19 Vaccine ( season) COVID-19 Vaccine () [facility] Start: 05-11-2024 Influenza vaccination [facility] Start: 05-05-2024 End: 05-05-2025 Echo complete W/O contrast Echo complete W/O contrast Echocardiography Routine Chest pain, unspecified type Expected: 05/05/2024, Expires: 05/05/2025 [facility] Comment on above: Expected: 05/05/2024, Expires: Start: 05-05-2024 End: 05-05-2025 Exercise stress test study Stress test (exercise only) [facility] Routine Chest pain, unspecified type Expected: 05/05/2024, Expires: 05/05/2025 [facility] Comment on above: Expected: 05/05/2024, Expires: Start: 05-05-2024 End: 05-05-2024 Patient encounter procedure 05/05/2024 10:30 AM EDT [facility] [address] [place] [phone] Luiza Webb, [address] [place] [address] Jurgen English MD [address] [place], [place] [phone] [facility] Start: 05-11-2023 COVID-19 Vaccine ( season) COVID-19 Vaccine () [facility] Start: 05-11-2023 Influenza vaccination [facility] Start: 10-03-2022 Adult depression screening assessment DEPRESSION SCREENING [facility] Start: 09-10-2022 DEPRESSION ASSESSMENT DEPRESSION ASSESSMENT [facility] Start: 05-11-2022 Influenza vaccination [facility] Start: 03-29-2020 End: 03-29-2020 Appointment 03/29/2020 Appointment General Surgery Bradley Simmons MD [address] [place], [place] [id number] [facility] Start: 05-11-2019 Influenza vaccination Flu vaccine (#1) [place], [place] Start: 2016 HPV TESTING HPV TESTING [facility] Start: 2016 Screening for malignant neoplasm of cervix [facility] Start: 2007 Cervical cancer screen Cervical cancer screen [place], [place] Start: 2007 PAP TESTING PAP TESTING [facility] Start: 2007 Screening for malignant neoplasm of cervix [facility] Start: 2005 Urine microalbumin profile DTAP,TDAP,TD (1 - Tdap) [facility] Start: 2004 Adult BMI Follow Up Plan Adult BMI Follow Up Plan [facility] Start: 2004 HEPATITIS C SCREENING HEPATITIS C SCREENING [facility] Start: 2004 Hepatitis C screening Hepatitis C Screening [facility] Start: 2004 HIV SCREENING HIV SCREENING [facility] Start: 2004 HIV screening HIV Screening [facility] Start: 2001 HIV screen HIV screen [place], [place] Start: 1998 Depression Screening Depression Screening [facility] Start: 12-25-1997 DTaP,Tdap and Td Vaccines (6 - Tdap) DTaP,Tdap and Td Vaccines (6 - Tdap) [facility] Start: 12-25-1997 Urine microalbumin profile DTaP,Tdap,Td Vaccine (6 - Tdap) [facility] Start: 1997 DTaP/Tdap/Td vaccine (1 - Tdap) DTaP/Tdap/Td vaccine (1 - Tdap) [place] Start: 1991 COVID-19 VACCINE (1) COVID-19 VACCINE (1) [facility] Start: 1987 Varicella vaccine (1 of 2 - 2-dose childhood series) Varicella vaccine (1 of 2 - 2-dose childhood series) [place] Start: 01-14-1987 COVID-19 VACCINE (#1) COVID-19 VACCINE (#1) [facility] Start: 1986 HEPATITIS B (1 of 3 - 3-dose series) HEPATITIS B (1 of 3 - 3-dose series) [facility] Start: 1986 Medicare Annual Wellness (AWV) Medicare Annual Wellness (AWV) [facility] Start: 1986 Tobacco Counseling Tobacco Counseling [facility] End: 05-05-2025 Hepatic function 2000 panel - Serum or Plasma Hepatic function panel Lab Routine Hypertriglyceridemia 1 Occurrences starting 05/05/2024 until 05/05/2025 [facility] Comment on above: 1 Occurrences starting 05/05/2024 until 05/05/2025 End: 05-05-2025 Lipid 1996 panel - Serum or Plasma Lipid profile Lab Routine Hypertriglyceridemia 1 Occurrences starting 05/05/2024 until 05/05/2025 [facility] Work Phone: Comment on above: 1 Occurrences starting 05/05/2024 until 05/05/2025 Immunizations Immunization Date Immunization Notes Care Provider Fa [facility] 05-15-2023 Influenza, injectabl e, Madin Renetta Canine Kidney, quadrivalent with preservative Dorcas Peralta NP Work Phone: [facility] 05-15-2023 influenza virus vaccine, unspecified formulation Jurgen English MD Work Phone: [facility] 07-13-2022 Influenza, injectabl e, Madin Renetta Canine Kidney, preservative free, quadrivalent Dorcasdwight Cummingspfer [employer] Work Phone: [facility] 09-13-2021 influenza, injectabl e, quadrivalent, preservative free Dorcasdwight Cummingspfer [employer] Work Phone: [facility] 08-22-2019 influenza, injectabl e, quadrivalent, contains preservative Dorcasdwight Cummingspfer [employer] Work Phone: [facility] 08-22-2019 influenza virus vaccine, unspecified formulation Raymond Medina MD Work Phone: [facility] 05-25-1998 hepatitis B vaccine, pediatric or pediatric/adolescent dosage Dorcasdwight Cummingspfer [employer] Work Phone: [facility] 12-24-1997 hepatitis B vaccine, pediatric or pediatric/adolescent dosage Dorcasdwight Cummingspfer [employer] Work Phone: [facility] 12-24-1997 TD(adult) unspecifie d formulation Dorcasdwight Cummingspfer [employer] Work Phone: [facility] 11-19-1997 hepatitis B vaccine, pediatric or pediatric/adolescent dosage Dorcasdwight Cummingspfer [employer] Work Phone: [facility] 11-19-1997 measles, mumps and rubella virus vaccine Dorcas Kampfer [employer] Work Phone: [facility] 10-26-1987 diphtheria, tetanus toxoids and pertussis vaccine Dorcasdwight Cummingspfer [employer] Work Phone: [facility] 10-26-1987 measles, mumps and rubella virus vaccine Dorcas Kampfer [employer] Work Phone: [facility] 10-26-1987 trivalent poliovirus vaccine, live, oral Dorcas Emilianopfer [employer] Work Phone: [facility] 02-17-1987 diphtheria, tetanus toxoids and pertussis vaccine Dorcas Emilianopfer [employer] Work Phone: [facility] 02-17-1987 trivalent poliovirus vaccine, live, oral Dorcas Peralta [employer] Work Phone: [facility] 1986 diphtheria, tetanus toxoids and pertussis vaccine Dorcas Cummingskiatiburcio [employer] Work Phone: [facility] 1986 trivalent poliovirus vaccine, live, oral Dorcas Peralta [employer] Work Phone: [facility] 1986 diphtheria, tetanus toxoids and pertussis vaccine Dorcas Peralta [employer] Work Phone: [facility] 1986 trivalent poliovirus vaccine, live, oral Dorcas Cummingskiatiburcio [employer] Work Phone: [facility] Healthcare Payers Date Payer Category Payer Medicare HMO [employer] MED[employer]ARE [id number] 2024 Medicare [id number] 2024 Private Health Insurance 2019 Medicaid MEDICAID [facility] MEDICAID [id number] 2019-Present [phone] [address] [place] [address] Medicaid [id number] 2019 Medicaid [id number] 2019 Medicare MEDICARE MEDICAR E A AND B [id number] 2019-Present [phone] [address] [address] [place] [address] Medicare [id number] 2019 Medicare [id number] [id number] .[id number] 2014 Medicaid MEDICAID [facility] DEPT OF JOB xxxxxxxxxxxx 2014-Present [phone] [address] [place] [address] xxxxxxxxxxxx [id number] 2014 Medicare MEDICARE MEDICAR E PART A AND B xxxxxxxxxxx 2014-Present [phone] [address] [address] [place] [address] xxxxxxxxxxx [id number] .[id number] 1986 Unknown [id number] 2.16.840.1.985372.3.579.2 .177 1986 Unknown [id number] 2.16.840.1.751491.3.579.2 .593 1986 Unknown [id number] 2.16.840.1.682767.3.579.2 .593 1986 Unknown [id number] 2.16.840.1.624843.3.579.2 .593 1986 Unknown [id number] 2.16.840.1.892279.3.579.2 .593 1986 Unknown [id number] 2.16.840.1.994296.3.579.2 .593 1986 Unknown [id number] 2.16.840.1.149071.3.579.2 .593 1986 Unknown [id number] 2.16.840.1.652084.3.579.2 .593 1986 Unknown [id number] 2.16.840.1.239385.3.579.2 .593 1986 Unknown [id number] 2.16.840.1.909213.3.579.2 .593 1986 Unknown [id number] 2.16.840.1.625161.3.579.2 .1285 1986 Unknown [id number] 2.16.840.1.735486.3.579.2 .1285 1986 Unknown [id number] 2.16.840.1.217900.3.579.2 .1285 1986 Unknown [id number] 2.16.840.1.245322.3.579.2 .1285 1986 Unknown [id number] 2.16.840.1.438856.3.579.2 .1285 1986 Unknown [id number] 2.16.840.1.740240.3.579.2 .1285 1986 Unknown [id number] 2.16840.1.892733.3.579.2 .1285 1986 Unknown [id number] 2.16840.1.754066.3.579.2 .1285 1986 Unknown [id number] 2.16840.1.878201.3.579.2 .1285 1986 Unknown [id number] 2.16.840.1.248926.3.579.2 .1285 1986 Unknown [id number] 2.16840.1.189338.3.579.2 .1285 1986 Unknown [id number] 2.16.840.1.413758.3.579.2 .1285 1986 Unknown [id number] 2.16.840.1.372325.3.579.2 .1285 1986 Unknown [id number] 2.16840.1.762376.3.579.2 .1285 1986 Unknown [id number] 2.16840.1.221518.3.579.2 .1285 1986 Unknown [id number] 2.16.840.1.773616.3.579.2 .1286 1986 Unknown [id number] 2.16.840.1.628000.3.579.2 .1286 1986 Unknown [id number] 2.16.840.1.326715.3.579.2 .1286 1986 Unknown [id number] 2.16.840.1.709884.3.579.2 .1286 1986 Unknown [id number] 2.16.840.1.563447.3.579.2 .1286 1986 Unknown [id number] 2.16.840.1.811797.3.579.2 .196 1986 Unknown [id number] 2.16.840.1.743495.3.579.2 .196 1986 Unknown [id number] 2.16.840.1.314694.3.579.2 .196 1986 Unknown [id number] 2.16.840.1.916044.3.579.2 .196 1986 Unknown [id number] 2.16.840.1.962382.3.579.2 .196 1986 Unknown [id number] 2.16.840.1.497941.3.579.2 .196 1986 Unknown [id number] 2.16.840.1.354857.3.579.2 .196 1986 Unknown [id number] 2.16.840.1.337564.3.579.2 .196 1986 Unknown [id number] 2.16.840.1.133715.3.579.2 .196 1986 Unknown [id number] 2.16.840.1.699832.3.579.2 .1259 1986 Unknown [id number] 2.16.840.1.549170.3.579.2 .1259 1986 Unknown [id number] 2.16.840.1.977045.3.579.2 .1259 1986 Unknown [id number] 2.16.840.1.550105.3.579.2 .1259 1986 Unknown [id number] 2.16.840.1.775987.3.579.2 .1259 1986 Unknown [id number] 2.16.840.1.144954.3.579.2 .1259 1986 Unknown [id number] 2.16.840.1.612405.3.579.2 .1259 1986 Unknown [id number] 2.16.840.1.836034.3.579.2 .1259 1958 Medicaid [id number] 1958 Medicare [id number] Social History Date Type Detail Facility Start: 11-25-2018 End: 11-10-2019 Tobacco smoking status MOIS Never smoker [facility] Start: 11-10-2019 End: 02-06-2025 Alcohol intake Current drinker of alcohol (finding) [place], [place] Start: 11-10-2019 Alcohol Comment [place], [place] Start: 1985 Sex Assigned At Not on file [place] Start: 11-25-2018 End: 05-14-2024 Tobacco use and exposure Smokeless tobacco non-user [facility] Start: 11-25-2018 History SDOH Alcohol Comment [facility] Start: 04-21-2019 End: 09-14-2024 Sex Assigned At [facility] Start: 04-21-2019 End: 09-14-2024 History of Social function [facility] Adult Depression Screening Assessment 4 [facility] Start: 05-05-2024 End: 05-14-2024 Tobacco smoking status MOIS Smokes tobacco daily [facility] Start: 05-14-2024 Tobacco Comment Vapes daily [facility] Start: 05-14-2024 Alcohol Comment caffeine intake: 12 oz coffee daily [facility] Tobacco smoking stat [facility] Tobacco smoking consumption unknown [facility] Do you belong to any clubs or organizations such as quaker groups, unions, fraternal or athletic groups, or [...] Tobacco: Every Day Vaping/E-cigarettes Smokeless Tobacco: [facility] Start: 01-20-2022 Alcohol Comment socially [facility] Start: 04-15-2015 Sex Female (finding) [facility] Medical Equipment Procedure Code Equipment Code Equipment Origin al Text Equipment Identifier Dates Mesh Pco Vntrl P tch 8.6cm [facility] [id number] - Sn/A - [id number] Start: 04-01-2019 Clinical Notes 09-15-2021 to 02-06-2025 Dorcas Peralta NP - 02/06/2025 11:00 AM Maite Maria DPM - 10/27/2024 4:15 PM ESTPatient InstructionsDorcas Peralta NP - 09/15/2024 11:00 AM Melodie Maria DPM - 08/04/2024 3:30 PM EST Note Date & Type Note Facility 02-06-2025 History of Present illness Narrative Images from the original note were not included. Marita Messina is a 39 y.o. female presents with chief complaint of Follow-up HPI: HPI History of Present Illness The patient presents for weight loss, lower back pain, and toenail fungus. She reports a weight loss of 20 pounds since her last visit. However, she is experiencing breakthrough cravings. She reports no gastrointestinal symptoms such as diarrhea, constipation, abdominal pain, nausea, or vomiting. Her physical activity has been limited due to recurrent lower back pain. She is considering another epidural injection for her lower back pain and has an upcoming appointment with pain management on 02/11/2025 at 11:00 AM. She recalls that after her previous epidural injection, she was able to maintain an active lifestyle, including regular walks with her dog. She was put on a medication for her toenail fungus and was given an order to get her liver enzymes redrawn when she was there last week. She is going to get them redrawn again. SUBJECTIVE: MEDICATIONS: Current Outpatient Medications Medication Instructions Aimovig 140 mg, Every 28 days albuterol HFA 90 mcg/act inhaler budesonide-formoterol (Symbicort) 160-4.5 MCG/ACT inhaler 2 puffs, [...] tablet 1 tablet, Every 6 hours PRN Denver-3 Fatty Acids (FISH OIL OMEGA-3 PO) 2 g, 2 times daily omeprazole (PriLOSEC) [address] capsule TAKE 1 CAPSULE(20 MG) BY MOUTH 1 TIME EACH DAY AT THE SAME TIME ondansetron ODT (ZOFRAN-ODT) 4 mg, Every 8 hours PRN propranolol (INDERAL) 20 mg, Oral, 2 times daily Repatha SureClick 140 mg, Every 14 days rizatriptan (MAXALT) 5 mg, Once as needed traZODone (DESYREL) 50 mg, Nightly Vraylar 6 MG capsule 1 capsule, Every morning Zepbound 7.5 mg, Subcutaneous, Weekly I have reviewed and reconciled the history and medication list with the patient today. REVIEW OF SYMPTOMS: Review of Systems OBJECTIVE: Visit Vitals BP 122/70 Pulse 83 Ht 5' 2 Wt 202 lb 12.8 oz SpO2 97% BMI 37.09 kg/m Smoking Status Every Day BSA 2.01 m Physical Exam Vitals reviewed. Constitutional: Appearance: Normal appearance. HENT: Head: Normocephalic and atraumatic. Nose: Nose normal. Mouth/Throat: Mouth: Mucous membranes are moist. Eyes: [...] Diagnoses and all orders for this visit: Obstructive sleep apnea syndrome - Tirzepatide-Weight Management (Zepbound) 10 MG/0.5ML solution auto-injector; Inject 10 mg under the skin 1 (one) time per week -continue zepbound Obesity, Class II, BMI 35-39.9 - Tirzepatide-Weight Management (Zepbound) 10 MG/0.5ML solution auto-injector; Inject 10 mg under the skin 1 (one) time per week -tolerating well, increase dose. Increase physical exercise. Focus on healthy eating habits. Chronic bilateral low back pain without sciatica -follow up with pain management as scheduled documented in this encounter [facility] 10-27-2024 History of Present illness Narrative Images [...] (six) hours if needed, Disp: , Rfl: Denver-3 Fatty Acids (FISH OIL OMEGA-3 PO), Take [...] Sherie Maria DPM documented in this encounter [facility] 10-27-2024 Instructions Sherie Maria DPM - 10/27/2024 4:15 PM EST Topical care measures as noted documented in this encounter [facility] 09-15-2024 History of Present illness Narrative [...] have her cholesterol levels checked tomorrow. 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 She has not undergone any extensive workup for her liver, only lab tests. Her liver enzyme levels have shown variability in the past. She is uncertain if she has fatty liver disease. She has been prescribed a angolan for a toenail fungus, which has proven [...] tablet 1 tablet, Every 6 hours PRN Denver-3 Fatty Acids (FISH OIL OMEGA-3 PO) 2 [...] Morbid (severe) obesity due to excess calories (CMS/[facility]) - Tirzepatide (Mounjaro) 2.5 MG/0.5ML solution auto-injector; [...] agreeable to this. documented in this encounter [facility] 08-11-2024 Note Patient Education Ma terials Name: Mayuri Marita Adriana Current Date: 08/11/2024 16:18:15 [facility] : 1985 The following sheet(s) are [...] breast self-exam (BSE). These experts include the [employer] and the [employer]nec[employer]. Some experts [...] means they are not cancer. ? [employer]. All rights reserved. This information is not [...] prevent urine, gas, or stool leakage. ? [id number] [employer]. All rights reserved. This information is not intended as a substitute fo (more content not included)... [facility] 08-04-2024 History of Present illness Narrative Subjective Patient ID: Marita Messina is a 39 y.o. female who presents for Fungus (Pt is here today for fungal nails, first noticed about 1 yr ago. Also athlete's foot BL. She has tried OTC topical fungal angolan, no change noted. /SS:8 ). HPI Initial [...] and not practical. Patient typically has toenail angolan on a constant basis. Also complains of [...] (six) hours if needed, Disp: , Rfl: Denver-3 Fatty Acids (FISH OIL OMEGA-3 PO), Take [...] most recent hepatic enzymes elevated (May 2024). [place] agreement to proceed with topical care measures: [...] Sherie Maria DPM documented in this encounter [facility] 08-04-2024 Instructions Sherie Maria DPM - 08/04/2024 3:30 PM EST As noted documented in this encounter [facility] 06-16-2024 History of Present illness [...] 1 tablet, Oral, Every 6 hours PRN Denver-3 Fatty Acids (FISH OIL OMEGA-3 PO) 2 [...] [facility] accredited and rated highly by the [employer]. Prescription sent to pharmacy Bipolar disorder in full remission, most recent episode unspecified type (CMS/HCC) -Followed by psych Mixed dyslipidemia (CMS/HCC) -Followed by cardiology documented in this encounter [facility] 06-09-2024 Miscellaneous Notes Images from the original note were not included. Pt called back as she stated that received a msg from [facility]: her recent cholesterol labs. Reviewed [facility] Jennifer Zamora PharmD 06/09/2024 [...] that script for Repatha be sent to [facility] in [place] and stated that she will get the Fish Oil OTC. Above orders routed to the [facility] to sign and send.-SRS documented in this encounter [facility] 06-09-2024 Telephone encounter Note Images from the original note were not included. Pt called back as she stated that received a msg from re: her recent cholesterol labs. Reviewed recent cholesterol labs and result notes/orders from [facility] as charted below: Jennifer Zamora PharmD 06/09/2024 [...] that script for Repatha be sent to [facility] in [place] and stated that she will get the Fish Oil OTC. Above orders routed to the [facility] to sign and send.-SRS [facility] [employer]comply ([employer]) [facility] 05-23-2024 History of Present illness Narrative [...] Morbid (severe) obesity due to excess calories ([facility]) Gastro-esophageal reflux disease without esophagitis Body mass index (BMI) 39.0-39.9, adult Bipolar disorder, unspecified ([facility]) documented in this encounter [facility] 05-22-2024 History of Present illness Narrative kade documented in this encounter [facility] 05-14-2024 History of Present illness Narrative [...] to be refilled. 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 STOVES ER FMH, SINUS TACHY, NO PREVIOUS CARDIO, [...] Obstructive sleep apnea hypopnea, mild Pulmonary embolism ([facility]) history of , approx 2013 Sleep apnea Visual impairment contacts, glasses No data recorded No data recorded No data recorded Past Surgical History: Procedure Laterality Date DENTAL SURGERY wisdom teeth HERNIA REPAIR HYSTERECTOMY PARTIAL LASER ABLATION CONDYLOMA CERVICAL / VULVAR REPAIR HERNIA INCISIONAL VENTRAL MESH N/A 04/01/2019 Performed by Luis A Gr DO at [facility] Family History Problem Relation [...] Sinus tachycardia - [facility] [place], [place] 2. Chest pain, unspecified type - [facility] [place] [place] - Stress test (exercise only); Future - Echo complete W/O contrast; Future 3. Palpitation - [facility] [place] [place] 4. Hypertriglyceridemia - Lipid profile; Future [...] SPARROW MD Referring Physician: Caitlyn Sparrow MD [address] [place] [address] documented in this encounter [facility] 08-09-2023 Miscellaneous Notes Please see pended medication. Pharmacy linked. Last ordered 03/09/2023. Ashtyn Perez MA documented in this encounter [facility] 03-09-2023 Miscellaneous Notes Please see pended medication. Pharmacy linked. Last ordered 10/25/2022. Ashtyn Perez MA documented in this encounter [facility] 07-11-2022 Note CONSULTATION PROCEDURE DATE: 07/11/2022 [...] be followed up in the office. [facility] 07-11-2022 Note CONSULTATION CONSULTATION DATE: 07/11/2022 CHIEF COMPLAINT: Trapezius and upper back pain. HISTORY OF PRESENT ILLNESS: This is a 36-year-old female who is known to the [facility]. The patient, in October of this year, had a rhizotomy radiofrequency ablation along her cervical spine. This has afforded the patient significant improvement. 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 CC: Caitlyn Sparrow M.D. [facility] 05-23-2022 Miscellaneous Notes Please see pended medication. Pharmacy linked. Last ordered 10/20/2021. Ashtyn Preez Ma documented in this encounter [facility] 03-08-2022 Note CONSULTATION CONSULTATION DATE: 03/08/2022 [...] Patient does agree with plan of care. [facility] Signed and Approved by: LUDA RODRIGUEZ . 03/09/2022 13:38:00 [facility] 01-09-2022 Miscellaneous Notes Please see pended medication. Pharmacy linked. Last ordered 07/05/2021. Ashtyn Perez Ma documented in this encounter [facility] 11-30-2021 Note CONSULTATION PAIN MANAGEMENT CONSULTATION [...] time, and patient agrees to this plan. [facility] Signed and Approved by: LUDA RODRIGUEZ . 12/01/2021 12:26:00 [facility] 09-15-2021 Note [facility] [place], [place] NAME: MARITA MESSINA Deysi DATE OF : MEDICAL REC#: [id number] [place] SHE[employer] SET UP OPERATOR: [id number] LILIANA DAWKINS ADMIT DATE: 09/15/2021 12:21:00 NEON MOLDER DATE: 09/16/2021 11:00 DICTATING PHYSICIAN: LUDA RODRIGUEZ [...] Luda Rodriguez CNP on 09/25/2021 11:23 PM [facility] Signed and Approved by: LUDA RODRIGUEZ . 09/25/2021 23:23:00 [facility] Evaluation note Diagnosis Excessive physiologic tremor Essential and other specified forms of tremor documented in this encounter [facility] noteNo [employer] [place] Other Evaluation note* Diagnosis Daytime sleepiness Narcolepsy without cataplexy [facility] Diagnosis Daytime sleepiness Narcolepsy without cataplexy [facility] Diagnosis Daytime sleepiness Narcolepsy without cataplexy [facility] Diagnosis Morbid (severe) obesity due to excess calories (CMS/HCC)- Primary Bipolar disorder in full remission, most recent episode unspecified type (CMS/HCC) Mixed dyslipidemia (CMS/HCC) documented in this encounter [facility] Healthcare[facility] note* Diagnosis Tinea pedis of both feet- Primary Chronic dermatitis of feet Contact dermatitis and other eczema, due to unspecified cause Dermatophytosis of nail Pain around toenail, right foot Pain around toenail, left foot documented in this encounter [facility] HealthcareEvaluation note* Diagnosis Dermatitis- Primary Contact dermatitis and other eczema, due to unspecified cause documented in this encounter [facility] HealthcareEvaluation note* Diagnosis Folliculitis- Primary Other specified disease of hair and hair follicles Obesity, Class II, BMI 35-39.9 Morbid (severe) obesity due to excess calories (CMS/HCC) Gastro-esophageal reflux disease without esophagitis Body mass index (BMI) 39.0-39.9, adult Bipolar disorder, unspecified (CMS/HCC) Bipolar disorder, unspecified documented in this encounter [facility] HealthcareEvaluation note* Diagnosis Gastroesophageal reflux disease without esophagitis Esophageal reflux documented in this encounter [facility] HealthcareEvaluation note* Diagnosis Obesity, Class II, BMI 35-39.9- Primary Encounter to establish care documented in this encounter [facility] HealthcareEvaluation note* Diagnosis Rash- Primary Rash and other nonspecific skin eruption Obesity, Class II, BMI 35-39.9 documented in this encounter [facility] HealthcareEvaluation note* Diagnosis Morbid (severe) obesity due to excess calories (CMS/HCC)- Primary BOGDAN (obstructive sleep apnea) Obstructive sleep apnea (adult) (pediatric) Hepatic steatosis Other chronic nonalcoholic liver disease Mixed hyperlipidemia (CMS/HCC) Mixed hyperlipidemia Elevated liver enzymes Other nonspecific abnormal serum enzyme levels documented in this encounter [facility] HealthcareEvaluation note* Diagnosis Obstructive sleep apnea syndrome Obstructive sleep apnea (adult) (pediatric) documented in this encounter [facility] HealthcareEvaluation note* Diagnosis Tremor- Primary Abnormal involuntary movements documented in this encounter [facility] HealthcareEvaluation note* Diagnosis Hypertriglyceridemia- Primary Pure hyperglyceridemia Sinus tachycardia Other specified cardiac dysrhythmias Chest pain, unspecified type Palpitation Palpitations Vapes nicotine containing substance [facility] Diagnosis Medication monitoring encounter- Primary Encounter for therapeutic drug monitoring Other hyperlipidemia Elevated triglycerides with high cholesterol Mixed hyperlipidemia Elevated LDL cholesterol level Severe obesity (BMI 35.0-39.9) with comorbidity (CMS-HCC) Other fatigue [facility]* Diagnosis Dermatophytosis of nail- Primary Dystrophic nail Other specified disease of nail Pain around toenail, right foot Pain around toenail, left foot documented in this encounter [facility] HealthcareEvaluation note* Diagnosis Obstructive sleep apnea syndrome Obstructive sleep apnea (adult) (pediatric) documented in this encounter [facility] HealthcareEvaluation note* Diagnosis Obstructive sleep apnea syndrome- Primary Obstructive sleep apnea (adult) (pediatric) Obesity, Class II, BMI 35-39.9 Chronic bilateral low back pain without sciatica documented in this encounter [facility] HealthcareInstructionsNot on filedocumented in this encounterPro[facility] SystemInstructionsNot on filedocumented in this encounterProSoutheast [facility] Health SystemInstructionsNot on filedocumented in this encounterProSoutheast [facility] System InstructionsNot on filedocumented in this encounterPro[facility] Summary Purpose Family History No Family History Records FoundNo Family History Records FoundNo Family History Records FoundNo Family History Records FoundNo Family History Records FoundNo Family History Records FoundNo Family History Records Found Advance Directives No Advanced Directives Records FoundDocuments on File Type Date Recorded Patient Financial Developer Expl anation Advance Directives and Living Will Power of Engineering Writer History of Present Illness * Bradley Simmons MD - 11/10/2019 2:00 PM EST [facility] PATIENT NAME: Marita Messina MRN NUMBER: [id number] DATE OF : 1985 PHONE NUMBER: [phone] PRIMARY CARE PHYSICIAN: No primary care provider [...] year had repair above belly button at [facility] HERNIA REPAIR umbilical and above belly buton also at [facility] about 2 years ago HYSTERECTOMY TUMOR REMOVAL Left [address] [facility] Family History: Family History Problem [...] CT scan reports and images from the [facility] [employer] system E from May 2019 and March [...] contrast Jurgen English MD [address] [place] [address] Referral ID Status Reason Start Date Expiration Date V isits Requested Visits Authorized [id number] Pending Review 05/05/2024 05/05/2025 1 1 Specialty Diagnoses / Procedures Referred By Contac t Referred To Contact Diagnoses Chest pain, unspecified type Procedures Stress test (exercise only) Jurgen English MD [address] [place] [address] Referral ID Status Reason Start Date Expiration Date V isits Requested Visits Authorized [id number] Pending Review 05/05/2024 05/05/2025 5 5 Additional Source Comments INFORMATION SOURCE (unrecogn ized section and content) DATE CREATED AUTHOR 05/31/2019 [facility] DATE CREATED AUTHOR AUTHOR'S ORGANIZ ATION 11/11/2019 [facility] DATE CREATED AUTHOR AUTHOR'S ORGANIZ ATION 12/01/2021 [facility] DATE CREATED AUTHOR AUTHOR'S ORGANIZ ATION 09/02/2022 [facility] DATE CREATED AUTHOR AUTHOR'S ORGANIZ ATION 11/05/2024 [facility] DATE CREATED AUTHOR AUTHOR'S ORGANIZ ATION 02/06/2025 [facility] DATE CREATED AUTHOR AUTHOR'S ORGANIZ ATION 02/08/[address] [facility] EPIC Source Comments (unrecognize d section and content) In the event this informatio n is protected by the Federal Confidentiality of Alcohol and Drug Abuse Patient Records regulations: The Federal rules restrict any use of the information to criminally investigate or prosecute any alcohol or drug abuse patient.[facility] the event this information is protected by the Federal Confidentiality of Alcohol and Drug Abuse Patient Records regulations: The Federal rules restrict any use of the information to criminally investigate or prosecute any alcohol or drug abuse patient.[facility] Hospital[facility] the event this information is protected by the Federal Confidentiality of Alcohol and Drug Abuse Patient Records regulations: The Federal rules restrict any use of the information to criminally investigate or prosecute any alcohol or drug abuse patient.[facility] HospitalIn the event this information is protected by the Federal Confidentiality of Alcohol and Drug Abuse Patient Records regulations: The Federal rules restrict any use of the information to criminally investigate or prosecute any alcohol or drug abuse patient.[facility] Reason for Visit (unrecogniz ed section and content) Reason Onset Date Comments Refill Request 01/09/2022 Reason Onset Date Comments Refill Request 03/09/2023 Reason Onset Date Comments Refill Request 08/09/2023 Reason Comments Follow-up Reason Comments Fungus Pt is here today for fungal nails, first noticed about 1 yr ago. Also athlete's foot BL. She has tried OTC topical fungal angolan, no change noted. 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 FMH, SINUS TAC HY, NO PREVIOUS CARDIO, SCHED W/PT Specialty Diagnoses / Procedures Referred By Vickie ahumada Referred To Contact Cardiology Diagnoses Sinus tachycardia Chest pain, unspecified type Palpitation Luiza Webb, DO [address] [place] [address] [facility] [address] [address] Referral ID Status Reason Start Date Expiration Date Visits Requested Visits Authorized [id number] Pending Review Specialty Services Required 03/23/2024 03/23/2025 [...] Care Teams (unrecognized sec tion and content) [employer] Solution Architect Relationship Specialty Start Date End Date Caitlyn Sparrow [address] [place], [place] [id number] PCP - General Internal Medicine 11/25/18 [employer] Architect Relationship Specialty Start Date End Date Caitlyn Sparrow Geov[address] [place], [place] [phone] PCP - General Internal Medicine 11/25/18 [employer] Solution Architect Relationship Specialty Start Date End Date Caitlyn Sparrow [address] [place], [place] [phone] PCP - General Internal Medicine 11/25/18 [employer] Solution Architect Relationship Specialty Start Date End Date Caitlyn Sparrow [address] [address] PCP - General Internal Medicine 11/25/18 [employer] Solution Architect Relationship Specialty Start Date End Date Jo-Ann Gee MD [address] [place] [address] PCP - General Family Medicine 05/09/24 [employer] Solution Architect Relationship Specialty Start Date End Date Jo-Ann Gee MD [address] [place] [address] PCP - General Family Medicine 05/09/24 [employer] Solution Architect Relationship Specialty Start Date End Date Jo-Ann Gee MD [address] [place] [address] PCP - General Family Medicine 05/09/24 [employer] Solution Architect Relationship Specialty Start Date End Date Jo-Ann Gee MD [address] [place] [address] PCP - General Family Medicine 05/09/24 [employer] Solution Architect Relationship Specialty Start Date End Date Jo-Ann Gee MD [address] [place] [address] PCP - General Family Medicine 05/09/24 [employer] Solution Architect Relationship Specialty Start Date End Date Jo-Ann Gee MD [address] [place] [address] PCP - General Family Medicine 05/09/24 [employer] Solution Architect Relationship Specialty Start Date End Date Jo-Ann Gee MD [address] [place] [address] PCP - General Family Medicine 05/09/24 [employer] Solution Architect Relationship Specialty Start Date End Date Jo-Ann Gee MD [address] [place] [address] PCP - General Family Medicine 05/09/24 [employer] Solution Architect Relationship Specialty Start Date End Date Jo-Ann Gee MD [address] [place] [address] PCP - General Family Medicine 05/09/24 [employer] Solution Architect Relationship Specialty Start Date End Date Jo-Ann Gee MD [address] [place] [address] PCP - General Family Medicine 05/09/24 Jo-Ann Gee MD [address] [place] [address] PCP - [employer] 09/10/24 [employer] Solution Architect Relationship Specialty Start Date End Date Jo-Ann Gee MD [address] [place] [address] PCP - General Family Medicine 05/09/24 Jo-Ann Gee MD [address] [place] [address] PCP - [employer] 09/10/24 [employer] Solution Architect Relationship Specialty Start Date End Date Caitlyn Sparrow MD PCP - General Pediatrics 03/08/24 [employer] Solution Architect Relationship Specialty Start Date End Date Caitlyn Sparrow MD PCP - General Pediatrics 03/08/24 [employer] Solution Architect Relationship Specialty Start Date End Date Caitlyn Sparrow MD PCP - General Pediatrics 03/08/24 [employer] Solution Architect Relationship Specialty Start Date End Date Jo-Ann Gee MD [address] [facility] [place] [address] PCP - General Family Medicine 05/09/24 Jo-Ann Gee MD [address] [facility] [place] [address] PCP - [employer] 09/10/24 [employer] Solution Architect Relationship Specialty Start Date End Date Jo-Ann Gee MD [address] [facility] [place] [address] PCP - General Family Medicine 05/09/24 Jo-Ann Gee MD [address] [facility] [place] [address] PCP - [employer] 09/10/24 [employer] Solution Architect Relationship Specialty Start Date End Date Jo-Ann Gee MD [address] [facility] [place] [address] PCP - General Family Medicine 08/20/24 [employer] Solution Architect Relationship Specialty Start Date End Date Jo-Ann Gee MD [address] [facility] [place] [address] PCP - General Family Medicine 05/09/24 Jo-Ann Gee MD [address] [facility] [place] [address] PCP - [employer] 09/10/24 [employer] Solution Architect Relationship Specialty Start Date End Date Jo-Ann Gee MD [address] [facility] [place], [place] [phone] PCP - General Family Medicine 05/09/24 Jo-Ann Gee MD [address] [place], [place] [id number] PCP - [employer] 09/10/24 Dorcas Peralta NP [address] [facility] [place], [place] [phone] Nurse Practitioner Family Medicine 02/06/25 FOR RECORDS PERTAINING TO PATIENTS WHO ARE [...] BE BASED ON THE PRIMARY CLINICAL RECORDS. [facility] [employer] [facility]. provides no warranty or guarantee of the accuracy or completeness of information in this document.
--- NOTE | 2025-02-11 11:17 | PM.CN ---
Consult Note: HPI Data of Consult Patient: known to practice within the last 3 years Requesting Physician: Michelle Randhawa NP Primary Care Provider: CAITLYN SPARROW Consult Narrative Reason for consult: neck and low back pain Narrative: Marita Messina a pleasant 39 year old female presents for evaluation of chronic neck pain. Patient has tried and failed OTC medications, home based exercise program and cervical traction greater than 6 weeks. Pt recently underwent cervical MRI which is consistent for cervical spondylosis and DDD, previously found benefit to right and left C3-4 C5-6 facet RFAs. currently utilizing flexeril 10mg BID and gabapentin 600mg BID with benefit without side effects. NAHUN 20%. recently underwent right and left C3/4 C5/6 facet RFA with >80% improvement ongoing. neck pain 0/10 increasing to 1/10. low back and bilateral hip pain 4/10 increasing to 8/10 with standing, walking, lifting, twsiting, pushing, pulling. cc:: CC: Michelle Randhawa NP Review of Systems ROS Status of ROS 10 or more systems reviewed and unremarkable except as noted in history and below Musculoskeletal Reports: back pain and joint pain; Denies: neck pain PFSH PFSH Medical History Anxiety ?F41.9 - Anxiety disorder, unspecified (ICD-10) Hiatal hernia ?K44.9 - Diaphragmatic hernia without obstruction or gangrene (ICD-10) Acid reflux ?K21.9 - Gastro-esophageal reflux disease without esophagitis (ICD-10) Pulmonary embolism ?I26.99 - Other pulmonary embolism without acute cor pulmonale (ICD-10) Asthma ?J45.909 - Unspecified asthma, uncomplicated (ICD-10) Surgical History History of surgical removal of Bartholin’s gland cyst ?Z98.890 - Other specified postprocedural states (ICD-10) ?Z87.42 - Personal history of other diseases of the female genital tract (ICD-10) History of eye surgery ?Z98.890 - Other specified postprocedural states (ICD-10) [place] teeth extracted ?K08.409 - Partial loss of teeth, unspecified cause, unspecified class (ICD-10) History of hernia repair ?Z98.890 - Other specified postprocedural states (ICD-10) ?Z87.19 - Personal history of other diseases of the digestive system (ICD-10) History of hysterectomy ?Z90.710 - Acquired absence of both cervix and uterus (ICD-10) Meds Home Medications and Allergies Home Medications ?Medication ?Instructions ?Recorded ?Confirmed ?Type albuterol sulfate 90 mcg/actuation 2 puff inhalation Q6H PRN 06/22/23 12/22/24 History aerosol inhaler shortness of breath or wheezing buspirone 15 mg tablet 15 mg PO BID 06/22/23 12/22/24 History cariprazine 3 mg capsule (Vraylar) 6 mg PO DAILY 06/22/23 12/22/24 History erenumab-aooe 70 mg/mL 70 mg subcut .monthly 06/22/23 12/22/24 History subcutaneous auto-injector (Aimovig Autoinjector) fluoxetine 40 mg capsule (Prozac) 40 mg PO DAILY 06/22/23 12/22/24 History omeprazole 20 mg capsule,delayed 40 mg PO BID 06/22/23 12/22/24 History release propranolol 20 mg tablet 20 mg PO Q12H 06/22/23 12/22/24 History rizatriptan 5 mg tablet 5 mg PO Q2H PRN migraine headache 06/22/23 12/22/24 History cyclobenzaprine 10 mg tablet 10 mg PO BID 02/07/24 12/22/24 History gabapentin 300 mg capsule 600 mg PO BID 06/18/24 12/22/24 History evolocumab 140 mg/mL subcutaneous mg subcut 09/01/24 History syringe (Repatha Syringe) tirzepatide (weight loss) 2.5 2.5 mg subcut QWEEK 10/13/24 12/08/24 History mg/0.5 mL subcutaneous pen injector (Zepbound) diazepam 10 mg tablet (Valium) 10 mg PO .COMPLEX PRN anxiety 12/08/24 12/22/24 History Allergies Allergy/AdvReac Type Severity Reaction Status Date / Time hydrocodone (From Vicodin) Allergy Hives Verified 12/22/24 09:10 Exam Constitutional Documenting provider has reviewed patient's vital signs: yes Common normals: no apparent distress, oriented x3, healthy appearing, alert and well nourished General appearance: cooperative HENMT Common normals: normocephalic, hearing grossly normal bilaterally and moist oral mucous membranes Head and scalp: normocephalic Eye Common normals: PERRL Pupil: PERRL Neck & C-Spine Common normals: full ROM General: normal visual inspection Cervical spine: cervical ROM normal; no pain with cervical ROM, no cervical spine tenderness, no paracervical muscle tenderness and no trapezius muscle tenderness Other: no pain with flexion extension and rotation negative spurlings negative facet loading Chest Common normals: inspection of chest normal Respiratory Common normals: normal respiratory effort, no retractions and no use of accessory muscles Back & Pelvis Lumbar spine/lower back: ROM limited, pain with ROM and lumbar spinal tenderness Sacroiliac joints: SI joint(s) abnormal Other: positive facet loading sensation intact BLE strength 5/5 in BLE bilateral sij positive boyd(patricks), gaenslens, thigh thrust, compression test Extremity Common normals: normal to inspection and full ROM Neuro Common normals: oriented x3, CN's II-XII intact bilaterally, moves all extremities, no focal motor deficits, no sensory deficits noted and deep tendon reflexes 2+ bilaterally Sensorium/orientation: alert Motor exam: strength 5/5 throughout and no movement abnormalities noted Psych Common normals: mental status grossly normal, thought process normal, cooperative, affect normal, speech normal and activity/motor behavior normal Speech: normal speech Thought process: normal thought process Results Additional Findings Additional findings: If on a controlled substance or opioids, I have checked an [place] report on this patient and there are no aberrancies noted in the prescribing history.??If on a controlled substance or opioid a drug screen was completed and reviewed within the last year, and if there has not been a drug screen completed we ordered one today to monitor higher risk, state monitored pain medication use. As part of providing excellent, safe, comprehensive care, the following was completed at our patient's visit: 1. A medication reconciliation and review to ensure accurate knowledge of current/active medications, including asking our patients to inform us about any [id number] medications or herbal remedies/nutritional supplements/alternative remedies. 2. A review to specifically ensure our patients have had annual screening for screening for depression, screening for tobacco use, and screening for unhealthy alcohol use. For concerning screenings had a discussion with the patient, provided patient education, and recommended follow-up with primary care provider when appropriate. If patient noted with a risk of falling, they received education on strength, gait, and balance training to prevent future risk of falling. Portions of this note may have been carried over from the previous visit and updated as appropriate. Please note this office utilizes paper charting in addition to the electronic medical record. A list of current medications, vitals, and PMH is available there as the clinical staff outside of myself do not have access to [facility] charting during the clinic day operations. As part of providing quality comprehensive care the current medications, vitals, and PMH were reviewed in the paper chart. Assessment and Plan Assessment and Plan (1) Sacroiliitis: Assessment and Plan: The patient has had over 3 months of moderate to severe low back and bilateral SIJ pain with functional impairment and inadequate response to conservative care including NSAIDS (unless there are contraindication such as concurrent blood thinners), multiple oral or topical pain medications, and home exercise program/physical therapy.? Patient has completed >6 weeks of guided home exercise program and/or formal physical therapy program without relief of their symptoms.? I have reviewed the imaging of the lumbar spine and no red flags were identified.? The imaging reveals radiographic findings consistent with lumbar spondylosis The Oswestry Disability Index was completed, and the patient scored a 20%.? The patient noted the following:?? moderate to severe pain with ADLs, sitting, standing We discussed the risks and benefits of the procedure with the patient, and we are NOT planning on using sedation as outlined in the guidelines from Medicare unless there is a documented reason that sedation would be strongly recommended.?? ?The procedure will be completed with fluoroscopic guidance.? (2) Cervical spondylosis: Assessment and Plan: 12/08/24 right C3/4 C5/6 facet RFA >80% improvement ongoing 12/22/24 left C3/4 C5/6 facet RFA >80% improvement ongoing (3) Degenerative disc disease, cervical: (4) Chronic pain syndrome: (5) Myofascial pain syndrome: (6) Lumbar spondylosis: Plan bilateral SIJ injection under fluoroscopy continue current medications continue HEP as tolerated f/u 2 weeks after injection
== END 2025-02-11 10:43 | disposition home or self-care (01) ==
PROVIDERS: PCP Internal Medicine; Visit Provider Nurse Practitioner
DX: M46.1 Sacroiliitis, not elsewhere classified (principal); M47.812 Spondylosis without myelopathy or radiculopathy, cervical region; M50.30 Other cervical disc degeneration, unspecified cervical region; G89.4 Chronic pain syndrome; M79.18 Myalgia, other site; M47.816 Spondylosis without myelopathy or radiculopathy, lumbar region
CPT/HCPCS: G0463

== ENCOUNTER 2025-03-02 09:26 | Day surgery (SDC) | payer MEDICARE, MEDICAID, SELFPAY ==
--- OUTSIDE RECORDS SUMMARY | 2025-03-02 09:44 | XMS_ITS | CCD ---
Author Organization [facility] Care Team Providers Care Slitter Helper Name Role Phone SIMMONS BRADLEY D Referring [...] Primary Care Provider Gerard CLEMONS, Jo-Ann Unavailable [phone] Kyara CLEMONS, Caitlyn Griffiths Primary Care Provider [...] KYARA, CAITLYN Griffiths Primary Care Unavailabl e KYRAA, CAITLYN Griffiths Primary Care Unavailabl e BIANCADAVEY [...] CLEMONS, Jo-Ann Yadav Primary Care Provider Kathryn CASUALTY INSURANCE CLAIM ADJUSTER, Dorcas Unavailable Martha RUSSO, Dorcas Stewart Attending Christian Sparrow MD, [facility] janice Sparrow MD, [facility] vailable Martha RUSSO, Dorcas Stewart Attending Christian Radford MD, Sana Doyle Attending Unavailable Kyara CLEMONS, [facility] vailable Malina CLEMONS, Sana Doyle Attending Unavailable Kyara CLEMONS, [facility] vailable Malina CLEMONS, Sana Doyle Attending Unavailable Kyara CLEMONS, [facility] vailable Malina CLEMONS, Sana Doyle Attending Unavailable Kyara CLEMONS, [facility] vailable Malina CLEMONS, Sana Doyle Attending Unavailable Kyara CLEMONS, [facility] vailamei Sparrow MD, [facility] vailable Malina CLEMONS, Sana Doyle Attending Unavailable Martha RUSSO, Dorcas Stewart Attending Christian Sparrow MD, [facility] vailaSHERIE Clements Attending Unavailable SHERIE MARIA Attending Unavailable KATHRYN, DORCAS Attending Unavailable KAMPTIBURCIO, DORCAS Attending Unavailable KAMPTIBURCIO, DORCAS Attending Unavailable KAMPFER, DORCAS Attending Unavailable SHERIE MARIA Attending Unavailable DORCAS PERALTA Attending Unavailable Allergies Allergy Classification Reported Allergen(s) Allergy Type Date of Onset Reaction(s) Facility (20 sources) Acetaminophen / HYDROcodone; Translations: [HYDROCODONE-ACETA MINOPHEN] Drug Allergy 10-09-2019 [place], [place] (9 sources) Acetaminophen / HYDROcodone; Translations: [Vicodin] Drug Allergy 09-10-2014 [facility] Repository Medications Current Medications Medication [...] 140 MG/ML as directed Subcutaneous monthly Active [id number] 200 actuat albuterol 0.09 mg/actuat metered dose [...] 05/23/2024 06/02/2024 Active take 1 capsule by [facility] every twenty-four hours Doxycycline Hyclate 100 MG [...] a day for 30 days Active omega 1-qnh-cnp-fish oil (Fish OiL) 300-1,000 mg capsule (2 sources) Start: 06-10-2024 take 1 capsule by mouth in the morning omega 8-hnv-ffl-fish oil (Fish OiL) 300-1,000 mg capsule Take 2 g by mouth in the morning and 2 g before bedtime. 06/10/2024 Active Hermosa-3 Fatty Acids (FISH OIL OMEGA-3 PO) (18 sources) take 2 tablets by mouth twice daily in the morning Hermosa-3 Fatty Acids (FISH OIL OMEGA-3 PO) Take [...] ALT [Catalytic activity/Vol] 51 U/L High 0-31 [facility] Comment on above: Performed By: #### 2 4331-1, THYR, CBCA, CMP, 26890-4 #### [facility] ([id number]) [address], [address] [place] [address] Silas 11-03-2024 AST [Catalytic activity/Vol] 38 U/L Normal 0-41 [facility] Comment on above: Performed By: #### 2 4331-1, THYR, CBCA, CMP, 25439-4 #### [facility] ([id number]) [address], [address] [place] [address] DIRECT LDLon 11-03-2024 Cholesterol in LDL [Mass/Vol] 65 mg/dL Normal <130 [facility] Comment on above: Result Comment: LDL <100 mg/dL - Desirable LDL 130-159 mg/dL - Borderline High Risk LDL >160 mg/dL - High Risk Performed By: #### 2 4331-1, THYR, CBCA, CMP, 69090-6 #### [facility] ([id number]) [address], [address] [place] [address] TRIGLYCERIDEon 11-03-2024 Triglyceride [Mass/Vol] 234 mg/dL High 27-150 [facility] Comment on above: Performed By: #### 2 4331-1, THYR, CBCA, CMP, 87250-2 #### [facility] ([id number]) [address], [address] [place] [address] MR CERVICAL SPINE WO CONTon 09-16-2024 MR [...] A Myles on 09/16/2024 2:09 PM Normal [facility] Gynecology Office/Clinic Not freddie 08-13-2024 Gynecology Office/Clinic [...] cover after 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 Normal [facility] COMPREHENSIVE METABOLIC PANE Mika 05-19-2024 Albumin [Mass/Vol] 4.6 g/dL Normal 3.2-5.3 [facility] Comment on above: Performed By: #### 2 4331-1, THYR, CBCA, CMP, 06235-1 #### [facility] ([id number]) [address], [address] [place] [address] ALP [Catalytic activity/Vol] 78 U/L Normal 39-130 [facility] Comment on above: Performed By: #### 2 4331-1, THYR, CBCA, CMP, 74314-0 #### [facility] ([id number]) [address], [address] [place] [address] ALT [Catalytic activity/Vol] 85 U/L High 0-31 [facility] Comment on above: Performed By: #### 2 4331-1, THYR, CBCA, CMP, 05783-1 #### [facility] ([id number]) [address], [address] [place] [address] Anion gap [Moles/Vol] 15 mmol/L Normal 5-15 [facility] Comment on above: Performed By: #### 2 4331-1, THYR, CBCA, CMP, 75384-1 #### [facility] ([id number]) [address], [address] [place] [address] AST [Catalytic activity/Vol] 54 U/L High 0-41 [facility] Comment on above: Performed By: #### 2 4331-1, THYR, CBCA, CMP, 59132-3 #### [facility] ([id number]) [address], [address] [place] [address] Bilirubin [Mass/Vol] 0.6 mg/dL Normal 0.3-1.2 [facility] Comment on above: Performed By: #### 2 4331-1, THYR, CBCA, CMP, 30172-1 #### [facility] ([id number]) [address], [address] [place] [address] Calcium [Mass/Vol] 9.6 mg/dL Normal 8.5-10.5 [facility] Comment on above: Performed By: #### 2 4331-1, THYR, CBCA, CMP, 02853-9 #### [facility] ([id number]) [address] [address] [place] [address] Chloride [Moles/Vol] 102 mmol/L Normal 98-109 [facility] Comment on above: Performed By: #### 2 4331-1, THYR, CBCA, CMP, 92621-0 #### [facility] ([id number]) [address] [address] [place] [address] CO2 [Moles/Vol] 19 mmol/L Low 22-32 [facility] Comment on above: Performed By: #### 2 4331-1, THYR, CBCA, CMP, 14600-1 #### [facility] ([id number]) [address] [address] [place] [address] Creatinine [Mass/Vol] 0.89 mg/dL Normal 0.40-1.00 [facility] Comment on above: Result Comment: METH OD TRACEABLE TO IDMS STANDARD Performed By: #### 2 4331-1, THYR, CBCA, CMP, 77066-9 #### [facility] ([id number]) [address], [address] [place] [address] GFR/1.73 sq M.predicted among non-blacks MDRD (S/P/Bld) [Vol rate/Area] 86 mL/min/{1.73_m2} Normal >59 [facility] Comment on above: Result Comment: Reported eGFR is based on the CKD-EPI 2020 equation that does not use a race coefficient. Performed By: #### 2 4331-1, THYR, CBCA, CMP, 84093-7 #### [facility] ([id number]) [address], [address] [place] [address] Glucose [Mass/Vol] 95 mg/dL Normal 65-99 [facility] Comment on above: Performed By: #### 2 4331-1, THYR, CBCA, CMP, 81360-8 #### [facility] ([id number]) [address], [address] [place] [address] Potassium [Moles/Vol] 4.0 mmol/L Normal 3.5-5.0 [facility] Comment on above: Performed By: #### 2 4331-1, THYR, CBCA, CMP, 96077-1 #### [facility] ([id number]) [address] [address] [place] [address] Protein [Mass/Vol] 7.0 g/dL Normal 6.0-8.0 [facility] Comment on above: Performed By: #### 2 4331-1, THYR, CBCA, CMP, 69614-3 #### [facility] ([id number]) [address] [address] [place] [address] Sodium [Moles/Vol] 136 mmol/L Normal 134-146 [facility] Comment on above: Performed By: #### 2 4331-1, THYR, CBCA, CMP, 43946-0 #### [facility] ([id number]) [address] [address] [place] [address] Urea nitrogen [Mass/Vol] 10 mg/dL Normal 5-23 [facility] Comment on above: Performed By: #### 2 4331-1, THYR, CBCA, CMP, 10552-4 #### [facility] ([id number]) [address], [address] [place] [address] DIRECT LDLon 05-19-2024 Cholesterol in LDL [Mass/Vol] 181 mg/dL High <130 [facility] Comment on above: Result Comment: LDL <100 mg/dL - Desirable LDL 130-159 mg/dL - Borderline High Risk LDL >160 mg/dL - High Risk Performed By: #### 2 4331-1, THYR, CBCA, CMP, 36474-5 #### [facility] ([id number]) [address], [address] [place] [address] LIVER PANELon 05-19-2024 Bilirubin.direct [Mass/Vol] 0.1 mg/dL Normal 0.0-0.4 [facility] Comment on above: Performed By: #### 2 4331-1, THYR, CBCA, CMP, 36307-3 #### [facility] ([id number]) [address] [facility], [address] [place] [address] Lipid 1996 panelon Cholesterol [Mass/Vol] 276 mg/dL High 150-200 [facility] Comment on above: Performed By: #### 2 4331-1, THYR, CBCA, CMP, 02363-9 #### [facility] ([id number]) [address], [address] [place] [address] Cholesterol in HDL [Mass/Vol] 42 mg/dL Normal >39 [facility] Comment on above: Result Comment: HDL <40 mg/dL - High Risk HDL > or = 40mg/dL- Desirable HDL >60 mg/dL - Negative Risk Performed By: #### 2 4331-1, THYR, CBCA, CMP, 44225-5 #### [facility] ([id number]) [address], [address] [place] [address] Cholesterol in VLDL [Mass/Vol] 98 mg/dL High 0-30 [facility] Comment on above: Performed By: #### 2 4331-1, THYR, CBCA, CMP, 62984-5 #### [facility] ([id number]) [address], [facility] [address] [place] [address] CHOLESTEROL:HDL 6.6 High 1.0-5.0 [facility] Comment on above: Performed By: #### 2 4331-1, THYR, CBCA, CMP, 25509-9 #### [facility] ([id number]) [address], [facility] [address] [place] [address] LDL (CALC) RESULT NOT REPORTED DUE TO HIGH TRIGLYCERIDE Normal <130 [facility] Comment on above: Performed By: #### 2 4331-1, THYR, CBCA, CMP, 57875-1 #### [facility] ([id number]) [address], [address] [place] [address] Triglyceride [Mass/Vol] 488 mg/dL High 27-150 [facility] Comment on above: Performed By: #### 2 4331-1, THYR, CBCA, CMP, 32590-1 #### [facility] ([id number]) [address], [address] [place] [address] MR LUMBAR SPINE WO CONTon MR LUMBAR [...] Bruce DO on 03/26/2024 1:45 PM Normal [facility] CBC AND AUTO DIFFon 03-23-20 24 ABSOLUTE BASOPHIL 0.0 X10E9/L Normal 0.0-0.2 [facility] Comment on above: Performed By: #### 2 4331-1, THYR, CBCA, CMP, 46685-6 #### [facility] ([id number]) [address], [address] [place] [address] ABSOLUTE NEUTROPHIL 4.7 X10E9/L Normal 1.5-6.6 [facility] Comment on above: Performed By: #### 2 4331-1, THYR, CBCA, CMP, 17506-3 #### [facility] ([id number]) [address], [address] [place] [address] Basophils/100 WBC (Bld) 0.3 % Normal [facility] Comment on above: Performed By: #### 2 4331-1, THYR, CBCA, CMP, 81066-0 #### [facility] ([id number]) [address] [place] [address] Eosinophils (Bld) [#/Vol] 0.0 10*3/uL Normal 0.0-0.4 [facility] Comment on above: Performed By: #### 2 4331-1, THYR, CBCA, CMP, 64238-5 #### [facility] ([id number]) [address] [place] [address] Eosinophils/100 WBC (Bld) 0.4 % Normal [facility] Comment on above: Performed By: #### 2 4331-1, THYR, CBCA, CMP, 51056-8 #### [facility] ([id number]) [address] [place] [address] Erythrocyte distribution width (RBC) [Ratio] 13.5 % Normal 11.5-15.0 [facility] Comment on above: Performed By: #### 2 4331-1, THYR, CBCA, CMP, 07333-1 #### [facility] ([id number]) [address] [place] [address] Hematocrit (Bld) [Volume fraction] 44.6 % Normal 35-47 [facility] Comment on above: Performed By: #### 2 4331-1, THYR, CBCA, CMP, 60258-7 #### [facility] ([id number]) [address] [place] [address] Hemoglobin (Bld) [Mass/Vol] 15.6 g/dL High 11.7-15.5 [facility] Comment on above: Performed By: #### 2 4331-1, THYR, CBCA, CMP, 84621-7 #### [facility] ([id number]) [address] [place] [address] Lymphocytes (Bld) [#/Vol] 0.5 10*3/uL Low 1.0-3.5 [facility] Comment on above: Performed By: #### 2 4331-1, THYR, CBCA, CMP, 44254-9 #### [facility] ([id number]) [address] [address] Lymphocytes/100 WBC (Bld) 8.7 % Normal [facility] Comment on above: Performed By: #### 2 4331-1, THYR, CBCA, CMP, 31838-8 #### [facility] ([id number]) [address] [address] MCH (RBC) [Entitic mass] 32.5 pg Normal 27-34 [facility] Comment on above: Performed By: #### 2 4331-1, THYR, CBCA, CMP, 39694-1 #### [facility] ([id number]) [address] [address] MCHC (RBC) [Mass/Vol] 34.9 g/dL Normal 32-36 [facility] Comment on above: Performed By: #### 2 4331-1, THYR, CBCA, CMP, 19384-2 #### [facility] ([id number]) [address] [address] MCV (RBC) [Entitic vol] 93 fL Normal 80-100 [facility] Comment on above: Performed By: #### 2 4331-1, THYR, CBCA, CMP, 34124-6 #### [facility] ([id number]) [address] [address] Monocytes (Bld) [#/Vol] 0.0 10*3/uL Normal 0-0.9 [facility] Comment on above: Performed By: #### 2 4331-1, THYR, CBCA, CMP, 15377-2 #### [facility] ([id number]) [address] [place] [address] Monocytes/100 WBC (Bld) 0.6 % Normal [facility] Comment on above: Performed By: #### 2 4331-1, THYR, CBCA, CMP, 73967-7 #### [facility] ([id number]) [address] [place] [address] Neutrophils/100 WBC (Bld) 90.0 % Normal [facility] Comment on above: Performed By: #### 2 4331-1, THYR, CBCA, CMP, 85411-8 #### [facility] ([id number]) [address] [place] [address] Platelet mean volume (Bld) [Entitic vol] 7.2 fL Normal 7-12 [facility] Comment on above: Performed By: #### 2 4331-1, THYR, CBCA, CMP, 68743-7 #### [facility] ([id number]) [address] [place] [address] Platelets (Bld) [#/Vol] 286 10*3/uL Normal 150-450 [facility] Comment on above: Performed By: #### 2 4331-1, THYR, CBCA, CMP, 94108-2 #### [facility] ([id number]) [address] [place] [address] RBC COUNT 4.80 X10E12/L Normal 3.80-5.20 [facility] Comment on above: Performed By: #### 2 4331-1, THYR, CBCA, CMP, 09933-5 #### [facility] ([id number]) [address] [place] [address] WBC (Bld) [#/Vol] 5.3 10*3/uL Normal 4.0-11.0 [facility] Comment on above: Performed By: #### 2 4331-1, THYR, CBCA, CMP, 63397-3 #### [facility] ([id number]) [address], [address] [place] [address] COMPREHENSIVE METABOLIC PANE Mika 03-23-2024 Albumin [Mass/Vol] 4.2 g/dL Normal 3.2-5.3 [facility] Comment on above: Performed By: #### 2 4331-1, THYR, CBCA, CMP, 94806-0 #### [facility] ([id number]) [address], [address] [place] [address] ALP [Catalytic activity/Vol] 115 U/L Normal 39-130 [facility] Comment on above: Performed By: #### 2 4331-1, THYR, CBCA, CMP, 12245-4 #### [facility] ([id number]) [address], [address] [place] [address] ALT [Catalytic activity/Vol] 81 U/L High 0-31 [facility] Comment on above: Performed By: #### 2 4331-1, THYR, CBCA, CMP, 34204-2 #### [facility] ([id number]) [address], [address] [place] [address] Anion gap [Moles/Vol] 14 mmol/L Normal 5-15 [facility] Comment on above: Performed By: #### 2 4331-1, THYR, CBCA, CMP, 11927-3 #### [facility] ([id number]) [address], [address] [place] [address] AST [Catalytic activity/Vol] 48 U/L High 0-41 [facility] Comment on above: Performed By: #### 2 4331-1, THYR, CBCA, CMP, 85906-7 #### [facility] ([id number]) [address], [address] [place] [address] Bilirubin [Mass/Vol] 1.3 mg/dL High 0.3-1.2 [facility] Comment on above: Performed By: #### 2 4331-1, THYR, CBCA, CMP, 54692-3 #### [facility] ([id number]) [address], [address] [place] [address] Calcium [Mass/Vol] 9.3 mg/dL Normal 8.5-10.5 [facility] Comment on above: Performed By: #### 2 4331-1, THYR, CBCA, CMP, 38133-8 #### [facility] ([id number]) [address] [place] [address] Chloride [Moles/Vol] 97 mmol/L Low 98-109 [facility] Comment on above: Performed By: #### 2 4331-1, THYR, CBCA, CMP, 64104-4 #### [facility] ([id number]) [address] [address] [place] [address] CO2 [Moles/Vol] 22 mmol/L Normal 22-32 [facility] Comment on above: Performed By: #### 2 4331-1, THYR, CBCA, CMP, 25931-8 #### [facility] ([id number]) [address] [address] [place] [address] Creatinine [Mass/Vol] 0.91 mg/dL Normal 0.40-1.00 [facility] Comment on above: Result Comment: METH OD TRACEABLE TO IDMS STANDARD Performed By: #### 2 4331-1, THYR, CBCA, CMP, 19618-6 #### [facility] ([id number]) [address], [address] [place] [address] GFR/1.73 sq M.predicted among non-blacks MDRD (S/P/Bld) [Vol rate/Area] 83 mL/min/{1.73_m2} Normal >59 [facility] Comment on above: Result Comment: Reported eGFR is based on the CKD-EPI 2020 equation that does not use a race coefficient. Performed By: #### 2 4331-1, THYR, CBCA, CMP, 99819-7 #### [facility] ([id number]) [address], [address] [place] [address] Glucose [Mass/Vol] 110 mg/dL High 65-99 [facility] Comment on above: Performed By: #### 2 4331-1, THYR, CBCA, CMP, 69096-9 #### [facility] ([id number]) [address], [address] [place] [address] Potassium [Moles/Vol] 3.8 mmol/L Normal 3.5-5.0 [facility] Comment on above: Performed By: #### 2 4331-1, THYR, CBCA, CMP, 71758-5 #### [facility] ([id number]) [address], [address] [place] [address] Protein [Mass/Vol] 8.0 g/dL Normal 6.0-8.0 [facility] Comment on above: Performed By: #### 2 4331-1, THYR, CBCA, CMP, 42712-1 #### [facility] ([id number]) [address], [address] [place] [address] Sodium [Moles/Vol] 133 mmol/L Low 134-146 [facility] Comment on above: Performed By: #### 2 4331-1, THYR, CBCA, CMP, 07921-8 #### [facility] ([id number]) [address], [address] [place] [address] Urea nitrogen [Mass/Vol] 13 mg/dL Normal 5-23 [facility] Comment on above: Performed By: #### 2 4331-1, THYR, CBCA, CMP, 36323-1 #### [facility] ([id number]) [address], [address] [place] [address] CT CTA CHESTon 03-23-2024 CT CTA CHEST [...] Chaparro MD on 03/23/2024 10:52 PM Normal [facility] Fibrin D-dimer DDU (PPP) [Ma ss/Vol]on 03-23-2024 D DIMER 336 ng/mL DDU High <255 [facility] Comment on above: Result Comment: Results >=255ng/mL [...] By: #### 2 4331-1, THYR, CBCA, CMP, 96338-0 #### [facility] ([id number]) [address], [address] [place] [address] HCG ( test) Ql (U)o n 03-23-2024 Beta HCG ( test) Ql (U) Negative Normal NEG [facility] Comment on above: Performed By: #### 2 4331-1, THYR, CBCA, CMP, 93561-5 #### [facility] ([id number]) [address], [address] [place] [address] LIPASEon 03-23-2024 Lipase [Catalytic activity/Vol] 30 U/L Normal 17-40 [facility] Comment on above: Performed By: #### 2 4331-1, THYR, CBCA, CMP, 77198-1 #### [facility] ([id number]) [address], [facility] [address] [place] [address] THYROID PROFILEon 03-23-2024 Free T4 [Mass/Vol] 0.74 ng/dL Normal 0.61-1.60 [facility] Comment on above: Performed By: #### 2 4331-1, THYR, CBCA, CMP, 73620-7 #### [facility] ([id number]) [address] [address] [place] [address] TSH 1.64 uIU/mL Normal 0.49-4.67 [facility] Comment on above: Performed By: #### 2 4331-1, THYR, CBCA, CMP, 76128-2 #### [facility] ([id number]) [address], [address] [place] [address] Troponin I.cardiac High sens itivity method [Mass/Vol]on 03-23-2024 1 HOUR TROP I, HIGH SENSITIVITY 3 ng/L Normal <16 [facility] Comment on above: Performed By: #### 2 4331-1, THYR, CBCA, CMP, 16603-8 #### [facility] ([id number]) [address], [address] [place] [address] TROPONIN I, HIGH SENSITIVITY 2 ng/L Normal <16 [facility] Comment on above: Performed By: #### 2 4331-1, THYR, CBCA, CMP, 11081-8 #### [facility] ([id number]) [address], [address] [place] [address] URINE CULTUREon 03-23-2024 Bacteria identified Cx Nom [...] F TRIMETH/SULFAMETHOXAZO LE S <=1/19 F Susceptible [facility] Comment on above: Performed By: #### 2 4331-1, THYR, CBCA, CMP, 42138-6 #### [facility] ([id number]) [address], [address] [place] [address] URN MACROSCOPIC NURon 2023 BILIRUBIN LUL Negative Normal NEG [facility] Comment on above: Performed By: #### 2 4331-1, THYR, CBCA, CMP, 18869-9 #### [facility] ([id number]) [address], [address] [place] [address] BLOOD/HGB LUL Small Abnormal NEG [facility] Comment on above: Performed By: #### 2 4331-1, THYR, CBCA, CMP, 41420-7 #### [facility] ([id number]) [address], [address] [place] [address] GLUCOSE LUL Negative Normal NEG [facility] Comment on above: Performed By: #### 2 4331-1, THYR, CBCA, CMP, 60971-1 #### [facility] ([id number]) [address], [address] [place] [address] KETONES LUL Negative Normal NEG [facility] Comment on above: Performed By: #### 2 4331-1, THYR, CBCA, CMP, 69547-1 #### [facility] ([id number]) [address], [address] [place] [address] LEUKOCYTE ESTERASE LUL Small Abnormal NEG [facility] Comment on above: Performed By: #### 2 4331-1, THYR, CBCA, CMP, 49162-0 #### [facility] ([id number]) [address], [address] [place] [address] NITRITE LUL Negative Normal NEG [facility] Comment on above: Performed By: #### 2 4331-1, THYR, CBCA, CMP, 93782-0 #### [facility] ([id number]) [address], [address] [place] [address] PH LUL 5.5 Normal 5.0-8.5 [facility] Comment on above: Performed By: #### 2 4331-1, THYR, CBCA, CMP, 04146-1 #### [facility] ([id number]) [address], [address] [place] [address] PROTEIN LUL Negative Normal NEG [facility] Comment on above: Performed By: #### 2 4331-1, THYR, CBCA, CMP, 76012-4 #### [facility] ([id number]) [address], [address] [place] [address] SPECIFIC GRAVITY LUL 1.010 Normal 1.003-1.035 [facility] Comment on above: Performed By: #### 2 4331-1, THYR, CBCA, CMP, 95151-9 #### [facility] ([id number]) [address], [address] [place] [address] UROBILINOGEN LUL 0.2 eu/dL Normal <1.1 [facility] Comment on above: Performed By: #### 2 4331-1, THYR, CBCA, CMP, 47206-3 #### [facility] ([id number]) [address], [address] [place] [address] CBC AND AUTO DIFFon 02-29-20 24 ABSOLUTE BASOPHIL 0.0 X10E9/L Normal 0.0-0.2 [facility] Comment on above: Performed By: #### T HYR, HA1C, CBCA, 92932-8 #### [facility] ([id number]) [address] [address] [place] [address] ABSOLUTE NEUTROPHIL 2.8 X10E9/L Normal 1.5-6.6 [facility] Comment on above: Performed By: #### T HYR, HA1C, CBCA, 33208-1 #### [facility] ([id number]) [address] [place] [address] Basophils/100 WBC (Bld) 0.7 % Normal [facility] Comment on above: Performed By: #### T HYR, HA1C, CBCA, 21957-7 #### [facility] ([id number]) [address] [address] [place] [address] Eosinophils (Bld) [#/Vol] 0.1 10*3/uL Normal 0.0-0.4 [facility] Comment on above: Performed By: #### T HYR, HA1C, CBCA, 94641-8 #### [facility] ([id number]) [address], [address] [place] [address] Eosinophils/100 WBC (Bld) 2.1 % Normal [facility] Comment on above: Performed By: #### T HYR, HA1C, CBCA, 95978-8 #### [facility] ([id number]) [address], [address] [place] [address] Erythrocyte distribution width (RBC) [Ratio] 13.7 % Normal 11.5-15.0 [facility] Comment on above: Performed By: #### T HYR, HA1C, CBCA, 96703-3 #### [facility] ([id number]) [address], [address] [place] [address] Hematocrit (Bld) [Volume fraction] 45.0 % Normal 35-47 [facility] Comment on above: Performed By: #### T HYR, HA1C, CBCA, 58058-7 #### [facility] ([id number]) [address], [address] [place] [address] Hemoglobin (Bld) [Mass/Vol] 15.5 g/dL Normal 11.7-15.5 [facility] Comment on above: Performed By: #### T HYR, HA1C, CBCA, 09218-5 #### [facility] ([id number]) [address], [address] [place] [address] Lymphocytes (Bld) [#/Vol] 1.4 10*3/uL Normal 1.0-3.5 [facility] Comment on above: Performed By: #### T HYR, HA1C, CBCA, 64430-1 #### [facility] ([id number]) [address], [address] [place] [address] Lymphocytes/100 WBC (Bld) 28.9 % Normal [facility] Comment on above: Performed By: #### T HYR, HA1C, CBCA, 32924-7 #### [facility] ([id number]) [address], [address] [place] [address] MCH (RBC) [Entitic mass] 32.0 pg Normal 27-34 [facility] Comment on above: Performed By: #### T HYR, HA1C, CBCA, 47934-8 #### [facility] ([id number]) [address], [address] [place] [address] MCHC (RBC) [Mass/Vol] 34.3 g/dL Normal 32-36 [facility] Comment on above: Performed By: #### T HYBhavna, HA1C, CBCA, 66821-1 #### [facility] ([id number]) [address], [address] [place] [address] MCV (RBC) [Entitic vol] 93 fL Normal 80-100 [facility] Comment on above: Performed By: #### T HYR, HA1C, CBCA, 14906-1 #### [facility] ([id number]) [address], [address] [place] [address] Monocytes (Bld) [#/Vol] 0.4 10*3/uL Normal 0-0.9 [facility] Comment on above: Performed By: #### T HYR, HA1C, CBCA, 77040-6 #### [facility] ([id number]) [address], [address] [place] [address] Monocytes/100 WBC (Bld) 8.4 % Normal [facility] Comment on above: Performed By: #### T HYR, HA1C, CBCA, 39632-6 #### [facility] ([id number]) [address], [address] [place] [address] Neutrophils/100 WBC (Bld) 59.9 % Normal [facility] Comment on above: Performed By: #### T HYR, HA1C, CBCA, 38781-7 #### [facility] ([id number]) [address] [address] [place] [address] Platelet mean volume (Bld) [Entitic vol] 8.5 fL Normal 7-12 [facility] Comment on above: Performed By: #### T HYR, HA1C, CBCA, 92004-1 #### [facility] ([id number]) [address], [address] [place] [address] Platelets (Bld) [#/Vol] 272 10*3/uL Normal 150-450 [facility] Comment on above: Performed By: #### T HYR, HA1C, CBCA, 08601-5 #### [facility] ([id number]) [address] [place] [address] RBC COUNT 4.83 X10E12/L Normal 3.80-5.20 [facility] Comment on above: Performed By: #### T HYR, HA1C, CBCA, 66412-0 #### [facility] ([id number]) [address] [address] [place] [address] WBC (Bld) [#/Vol] 4.7 10*3/uL Normal 4.0-11.0 [facility] Comment on above: Performed By: #### T HYR, HA1C, CBCA, 76642-9 #### [facility] ([id number]) [address] [address] [place] [address] HGB A1C (GLYCO-HGB)on 2023 Glucose [Mass/Vol] 97 mg/dL Normal [facility] Comment on above: Performed By: #### T HYR, HA1C, CBCA, 90152-0 #### [facility] ([id number]) [address] [address] [place] [address] HbA1c (Bld) [Mass fraction] 5.0 % Normal 4.4-5.6 [facility] Comment on above: Result Comment: NOTE ADA Guidelines Result HgbA1c Normal : less than 5.7 % Prediabetes : 5.7 % to 6.4 % Diabetes : > 6.4 % Use with caution in patients with abnormal hemoglobin variants as the half-life of red blood cells and in vivo glycation rates are affected. Performed By: #### T HYR, HA1C, CBCA, 51730-0 #### [facility] ([id number]) [address], [address] [place] [address] THYROID PROFILEon 02-29-2024 Free T4 [Mass/Vol] 0.67 ng/dL Normal 0.61-1.60 [facility] Comment on above: Performed By: #### T HYR, HA1C, CBCA, 77411-0 #### [facility] ([id number]) [address], [address] [place] [address] TSH 1.84 uIU/mL Normal 0.49-4.67 [facility] Comment on above: Performed By: #### T HYR, HA1C, CBCA, 64545-6 #### [facility] ([id number]) [address], [address] [place] [address] Vitamin D+Metabolites [Mass/ Vol]on 02-29-2024 VITAMIN D 25 HYD TOT 32.3 ng/mL Normal 30-100 [facility] Comment on above: Result Comment: Vitamin D status 25 [place] Vitamin D Deficiency <20 ng/mL Insufficiency 20-29 ng/mL Sufficiency 30-100 ng/mL Toxicity >100 ng/mL NOTE: A pediatric reference range has not been established by the risk management intern of this kit. The [place] [employer] recommends a Vitamin D level of = or >20ng/mL in infants and children. Performed By: #### 2 4331-1, THYR, CBCA, CMP, 49497-2 #### [facility] ([id number]) [address] [facility] [place] [address] XR LUMBAR SPINE AP, LATERAL, FLEXION AND [...] Chun MD on 12/03/2023 10:04 AM Normal [facility] XR SPINE CERVICAL 3 VWS OR L [...] Jay MD on 12/02/2023 7:06 AM Normal [facility] CBC AND AUTO DIFFon 11-30-19 ABSOLUTE BASOPHIL 0.0 X10E9/L Normal 0.0-0.2 [facility] Comment on above: Performed By: #### 2 4331-1, THYR, CBCA, CMP, 73223-0 #### [facility] ([id number]) [address] [address] [place] [address] ABSOLUTE NEUTROPHIL 2.5 X10E9/L Normal 1.5-6.6 [facility] Comment on above: Performed By: #### 2 4331-1, THYR, CBCA, CMP, 62446-3 #### [facility] ([id number]) [address], [address] [place] [address] Basophils/100 WBC (Bld) 0.5 % Normal [facility] Comment on above: Performed By: #### 2 4331-1, THYR, CBCA, CMP, 15295-1 #### [facility] ([id number]) [address] [place] [address] Eosinophils (Bld) [#/Vol] 0.0 10*3/uL Normal 0.0-0.4 [facility] Comment on above: Performed By: #### 2 4331-1, THYR, CBCA, CMP, 04081-7 #### [facility] ([id number]) [address] [address] [place] [address] Eosinophils/100 WBC (Bld) 1.2 % Normal [facility] Comment on above: Performed By: #### 2 4331-1, THYR, CBCA, CMP, 02325-4 #### [facility] ([id number]) [address] [address] [place] [address] Erythrocyte distribution width (RBC) [Ratio] 13.7 % Normal 11.5-15.0 [facility] Comment on above: Performed By: #### 2 4331-1, THYR, CBCA, CMP, 70462-3 #### [facility] ([id number]) [address] [address] [place] [address] Hematocrit (Bld) [Volume fraction] 43.0 % Normal 35-47 [facility] Comment on above: Performed By: #### 2 4331-1, THYR, CBCA, CMP, 04678-2 #### [facility] ([id number]) [address], [address] [place] [address] Hemoglobin (Bld) [Mass/Vol] 15.0 g/dL Normal 11.7-15.5 [facility] Comment on above: Performed By: #### 2 4331-1, THYR, CBCA, CMP, 66126-1 #### [facility] ([id number]) [address], [facility] [address] [place] [address] Lymphocytes (Bld) [#/Vol] 0.9 10*3/uL Low 1.0-3.5 [facility] Comment on above: Performed By: #### 2 4331-1, THYR, CBCA, CMP, 06957-4 #### [facility] ([id number]) [address], [address] [place] [address] Lymphocytes/100 WBC (Bld) 23.6 % Normal [facility] Comment on above: Performed By: #### 2 4331-1, THYR, CBCA, CMP, 37015-9 #### [facility] ([id number]) [address], [address] [place] [address] MCH (RBC) [Entitic mass] 32.2 pg Normal 27-34 [facility] Comment on above: Performed By: #### 2 4331-1, THYR, CBCA, CMP, 64123-8 #### [facility] ([id number]) [address] [address] [place] [address] MCHC (RBC) [Mass/Vol] 35.0 g/dL Normal 32-36 [facility] Comment on above: Performed By: #### 2 4331-1, THYR, CBCA, CMP, 84081-0 #### [facility] ([id number]) [address], [address] [place] [address] MCV (RBC) [Entitic vol] 92 fL Normal 80-100 [facility] Comment on above: Performed By: #### 2 4331-1, THYR, CBCA, CMP, 79329-6 #### [facility] ([id number]) [address], [address] [place] [address] Monocytes (Bld) [#/Vol] 0.3 10*3/uL Normal 0-0.9 [facility] Comment on above: Performed By: #### 2 4331-1, THYR, CBCA, CMP, 05743-1 #### [facility] ([id number]) [address] [place] [address] Monocytes/100 WBC (Bld) 7.0 % Normal [facility] Comment on above: Performed By: #### 2 4331-1, THYR, CBCA, CMP, 58103-7 #### [facility] ([id number]) [address], [address] [place] [address] Neutrophils/100 WBC (Bld) 67.7 % Normal [facility] Comment on above: Performed By: #### 2 4331-1, THYR, CBCA, CMP, 72129-2 #### [facility] ([id number]) [address], [address] [place] [address] Platelet mean volume (Bld) [Entitic vol] 8.7 fL Normal 7-12 [facility] Comment on above: Performed By: #### 2 4331-1, THYR, CBCA, CMP, 68775-4 #### [facility] ([id number]) [address], [address] [place] [address] Platelets (Bld) [#/Vol] 186 10*3/uL Normal 150-450 [facility] Comment on above: Performed By: #### 2 4331-1, THYR, CBCA, CMP, 76563-2 #### [facility] ([id number]) [address], [address] [place] [address] RBC COUNT 4.67 X10E12/L Normal 3.80-5.20 [facility] Comment on above: Performed By: #### 2 4331-1, THYR, CBCA, CMP, 68539-0 #### [facility] ([id number]) [address] [place] [address] WBC (Bld) [#/Vol] 3.7 10*3/uL Low 4.0-11.0 [facility] Comment on above: Performed By: #### 2 4331-1, THYR, CBCA, CMP, 83512-9 #### [facility] ([id number]) [address] [place] [address] COMPREHENSIVE METABOLIC PANE Mika 11-30-2023 Albumin [Mass/Vol] 4.4 g/dL Normal 3.2-5.3 [facility] Comment on above: Performed By: #### 2 4331-1, THYR, CBCA, CMP, 24230-5 #### [facility] ([id number]) [address] [address] [place] [address] ALP [Catalytic activity/Vol] 65 U/L Normal 39-130 [facility] Comment on above: Performed By: #### 2 4331-1, THYR, CBCA, CMP, 04711-5 #### [facility] ([id number]) [address], [address] [place] [address] ALT [Catalytic activity/Vol] 59 U/L High 0-31 [facility] Comment on above: Performed By: #### 2 4331-1, THYR, CBCA, CMP, 70781-4 #### [facility] ([id number]) [address], [address] [place] [address] Anion gap [Moles/Vol] 6 mmol/L Normal 5-15 [facility] Comment on above: Performed By: #### 2 4331-1, THYR, CBCA, CMP, 82482-8 #### [facility] ([id number]) [address], [address] [place] [address] AST [Catalytic activity/Vol] 31 U/L Normal 0-41 [facility] Comment on above: Performed By: #### 2 4331-1, THYR, CBCA, CMP, 77751-7 #### [facility] ([id number]) [address], [address] [place] [address] Bilirubin [Mass/Vol] 0.8 mg/dL Normal 0.3-1.2 [facility] Comment on above: Performed By: #### 2 4331-1, THYR, CBCA, CMP, 61554-3 #### [facility] ([id number]) [address], [address] [place] [address] Calcium [Mass/Vol] 9.1 mg/dL Normal 8.5-10.5 [facility] Comment on above: Performed By: #### 2 4331-1, THYR, CBCA, CMP, 68234-8 #### [facility] ([id number]) [address], [address] [place] [address] Chloride [Moles/Vol] 103 mmol/L Normal 98-109 [facility] Comment on above: Performed By: #### 2 4331-1, THYR, CBCA, CMP, 42603-2 #### [facility] ([id number]) [address], [address] [place] [address] CO2 [Moles/Vol] 28 mmol/L Normal 22-32 [facility] Comment on above: Performed By: #### 2 4331-1, THYR, CBCA, CMP, 94356-0 #### [facility] ([id number]) [address], [address] [place] [address] Creatinine [Mass/Vol] 0.86 mg/dL Normal 0.40-1.00 [facility] Comment on above: Result Comment: METH OD TRACEABLE TO IDMS STANDARD Performed By: #### 2 4331-1, THYR, CBCA, CMP, 04872-8 #### [facility] ([id number]) [address], [address] [place] [address] GFR/1.73 sq M.predicted among non-blacks MDRD (S/P/Bld) [Vol rate/Area] 89 mL/min/{1.73_m2} Normal >59 [facility] Comment on above: Result Comment: Reported eGFR is based on the CKD-EPI 2020 equation that does not use a race coefficient. Performed By: #### 2 4331-1, THYR, CBCA, CMP, 78307-9 #### [facility] ([id number]) [address], [address] [place] [address] Glucose [Mass/Vol] 97 mg/dL Normal 65-99 [facility] Comment on above: Performed By: #### 2 4331-1, THYR, CBCA, CMP, 20860-9 #### [facility] ([id number]) [address] [address] [place] [address] Potassium [Moles/Vol] 3.8 mmol/L Normal 3.5-5.0 [facility] Comment on above: Performed By: #### 2 4331-1, THYR, CBCA, CMP, 53458-1 #### [facility] ([id number]) [address], [address] [place] [address] Protein [Mass/Vol] 6.6 g/dL Normal 6.0-8.0 [facility] Comment on above: Performed By: #### 2 4331-1, THYR, CBCA, CMP, 23608-6 #### [facility] ([id number]) [address], [address] [place] [address] Sodium [Moles/Vol] 137 mmol/L Normal 134-146 [facility] Comment on above: Performed By: #### 2 4331-1, THYR, CBCA, CMP, 12830-7 #### [facility] ([id number]) [address], [address] [place] [address] Urea nitrogen [Mass/Vol] 9 mg/dL Normal 5-23 [facility] Comment on above: Performed By: #### 2 4331-1, THYR, CBCA, CMP, 56175-2 #### [facility] ([id number]) [address], [address] [place] [address] Lipid 1996 panelon 4 Cholesterol [Mass/Vol] 236 mg/dL High 150-200 [facility] Comment on above: Performed By: #### 2 4331-1, THYR, CBCA, CMP, 57620-2 #### [facility] ([id number]) [address], [address] [place] [address] Cholesterol in HDL [Mass/Vol] 48 mg/dL Normal >39 [facility] Comment on above: Result Comment: HDL <40 mg/dL - High Risk HDL > or = 40mg/dL- Desirable HDL >60 mg/dL - Negative Risk Performed By: #### 2 4331-1, THYR, CBCA, CMP, 28475-8 #### [facility] ([id number]) [address], [address] [place] [address] Cholesterol in LDL [Mass/Vol] 124 mg/dL Normal <130 [facility] Comment on above: Result Comment: LDL <100 mg/dL - Desirable LDL >160 mg/dL - High Risk Performed By: #### 2 4331-1, THYR, CBCA, CMP, 08183-3 #### [facility] ([id number]) [address], [address] [place] [address] Cholesterol in VLDL [Mass/Vol] 64 mg/dL High 0-30 [facility] Comment on above: Performed By: #### 2 4331-1, THYR, CBCA, CMP, 90986-3 #### [facility] ([id number]) [address], [facility] [address] [place] [address] CHOLESTEROL:HDL 4.9 Normal 1.0-5.0 [facility] Comment on above: Performed By: #### 2 4331-1, THYR, CBCA, CMP, 34632-3 #### [facility] ([id number]) [address] [place] [address] Triglyceride [Mass/Vol] 318 mg/dL High 27-150 [facility] Comment on above: Performed By: #### 2 4331-1, THYR, CBCA, CMP, 75734-8 #### [facility] ([id number]) [address] [place] [address] THYROID PROFILEon 11-30-2023 Free T4 [Mass/Vol] 0.62 ng/dL Normal 0.61-1.60 [facility] Comment on above: Performed By: #### 2 4331-1, THYR, CBCA, CMP, 08427-7 #### [facility] ([id number]) [address] [place] [address] TSH 0.97 uIU/mL Normal 0.49-4.67 [facility] Comment on above: Performed By: #### 2 4331-1, THYR, CBCA, CMP, 72696-5 #### [facility] ([id number]) [address] [facility] [place] [address] Vitamin D+Metabolites [Mass/ Vol]on 11-30-2023 VITAMIN D 25 HYD TOT 25.5 ng/mL Low 30-100 [facility] Comment on above: Result Comment: Vitamin D status 25 [place] Vitamin D Deficiency <20 ng/mL Insufficiency 20-29 ng/mL Sufficiency 30-100 ng/mL Toxicity >100 ng/mL NOTE: A pediatric reference range has not been established by the risk management intern of this kit. The [place] [employer] recommends a Vitamin D level of = or >20ng/mL in infants and children. Performed By: #### 2 4331-1, THYR, CBCA, CMP, 30410-5 #### [facility] ([id number]) [address] [facility] [place] [address] Covid-19 PCR ([facility]VD[facility])on 09-11 SARS-CoV-2 (COVID-19) RNA MEGAN+probe Ql (Unsp spec) Not detected Normal NOT DETECTED [facility] Comment on above: Result Comment: This test is not yet approved or cleared by the [place] FDA. When there are no FDA-approved or cleared tests available, and other criteria are met, FDA can make tests available under an emergency access mechanism called an Emergency Use Authorization (EUA). The EUA for this test is supported by the [employer] Aide of Health and Human Service's (HHS's) declaration [...] SARS-CoV-2. Performed By: #### C VDTB #### [facility] [address] [place] [address] Adis Warren Covid-19 PCR ([facility])on 09-11 SARS-CoV-2 (COVID-19) RNA MEGAN+probe Ql (Unsp spec) Not detected Normal NOT DETECTED [facility] Comment on above: Result Comment: This test is not yet approved or cleared by the [place] FDA. When there are no FDA-approved or cleared tests available, and other criteria are met, FDA can make tests available under an emergency access mechanism called an Emergency Use Authorization (EUA). The EUA for this test is supported by the Restorative Aide of Health and Human Service's (HHS's) declaration [...] SARS-CoV-2. Performed By: #### C VDTB #### [facility] [address] [place] [id number] Adis Warren OBSOLETEon 07-04-2021 OBSOLETE Refill (COURTNEY) MARITA MESSINA ([id number]) 1985 F Date Time Provider Department 07/04/21 [...] Encounter Status:Closed by RAYMOND MEDINA on 07/05/21 [facility] OBSOLETEon 05-27-2021 OBSOLETE Refill ([facility]) MARITA MESSINA ([id number]) 1985 F Date Time Provider Department 05/27/21 RAYMOND MEDINA [facility] During your visit today, we [...] Encounter Status:Closed by RAYMOND MEDINA on 05/30/21 [facility] OBSOLETEon 04-26-2021 OBSOLETE Refill ([facility]) MARITA MESSINA ([id number]) 1985 F Date Time Provider Department 04/26/21 [...] Encounter Status:Closed by RAYMOND MEDINA on 04/27/21 [facility] Coding Summary.on 05-31-2019 Coding Summary. CODING DATE: 05/31/2019 [facility] STATUS: Home ([facility]) PAYOR: Medicaid EA DESCRIPTION 0390 LEVEL I PATHOLOGY ADMIT DX: REASON FOR VISIT DX: R87.610 Atypical squamous cells of undetermined significance on cytologic smear of cervix (ASC-US) FINAL DX: PRINCIPAL: N87.9 Dysplasia of cervix uteri, unspecified SECONDARY: R87.810 Cervical high risk human papillomavirus (HPV) DNA [facility] DES[facility] DOCTOR NAME DATE NOTE: The code number assigned matches the documented diagnosis and / or procedure in the patient's chart. However, the narrative phrase printed from the coding software may appear abbreviated, or result in slightly different terminology. Coded By: Prachi Andres Date Saved: 05/31/2019 06:25 am [facility] Gynecology Office/Clinic Not freddie 05-20-2019 Gynecology [...] and next steps Ordered: Colposcopy with biopsy [id number] Pathology Tissue Exam Pathology Tissue Exam Follow-up With When Contact Information She BINGHAM CNP In 1 year [email or web address] Additional Instructions: She BINGHAM CNP Only if needed [email or web address] Additional Instructions: Problem List/Past Medical History Ongoing [...] 05-06-2019 Coding Summary. CODING DATE: 05/06/2019 FINAL [facility] STATUS: Home (Routine DC) PAYOR: [...] risk human papillomavirus (HPV) DNA test [facility] DES[facility] DOCTOR NAME DATE NOTE: The code number assigned matches the documented diagnosis and / or procedure in the patient's chart. However, the narrative phrase printed from the coding software may appear abbreviated, or result in slightly different terminology. Coded By: Tish Dean CphT Date Saved: 05/06/2019 09:14 am Normal [facility] PAP 05-05-2019 Cytology report Cyto stain [...] (endocervical component) are present. 01 Maricarmen Stovall, Harness Repairer (ASCP) 01 Jennifer Lopes MD, Pathologist 01 [...] <-Panic Low,>-Panic High,A-Abnormal,AA-Critical Abnormal Performed at: [address] [address] Soraya Cabrera MD, Performed By: #### 1 [id number] #### [facility] [address] [place] [address] HPV 16+18+31+33+35+39+45 +51+52+56+58+59+68 DNA Probe+sig amp Ql (Cvx) Positive Abnormal Negative [facility] Comment on above: Result Comment: This high-risk HPV test detects thirteen high-risk types (16/18/31/33/35/39/45/51/52/56/58/59/68) without differentiation. Performed at: [address] [id number] MD Rick Lira Performed at: =G [address] [id number] MD Rick Lira Performed By: #### 1 [id number] #### [facility] [address] [place] [address] Physician Read Leyda 019 Pathologist review Noe (Unsp spec) [Interp] Note [facility] Comment on above: Result Comment: TEST S RESULT FLAG UNITS REF RANGE LAB Physician Read Pap Note 01 Performed FLAG LEGEND: L-Low Normal,H-High Normal,LL-Alert Low,HH-Alert High <-Panic Low,>-Panic High,A-Abnormal,AA-Critical Abnormal Performed at: 01 [facility] [address] [place] [address] Soraya Cabrera MD, Performed at: [facility] [address] [id number] MD Rick Lira Performed By: #### 1 [id number] #### [facility] [address] [place] [address] Gynecology Office/Clinic Not freddie 04-29-2019 Gynecology Office/Clinic [...] results Ordered: Office Visit Level 3 Est 67208 PAP [id number] w/HPV HR US Pelvis Non-OB Complete 2. 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: Encounter for gynecological examination (general) [...] Preventive Med 18 to 39 years Est 11651 Follow-up No qualifying data available Problem List/Past [...] and Time Signed: 04/29/19 11:36 EDT PAP [id number] 04-29-2019 Gynecological Body Site [facility]ERVIX [facility] Comment on above: Performed By: #### 1 [id number], [id number] #### [facility] [address] [place] [address] Other Patient Information IUD Normal [facility] Comment on above: Performed By: #### 1 [id number], [id number] #### [facility] [address] [place] [address] Vital Signs Date Time Vital Sign Value Performing Clinician Facility 02-06-2025 11:13-0400 Body height 157.5 cm Dorcas Peralta CASUALTY INSURANCE CLAIM ADJUSTER Work Phone: [facility] 02-06-2025 11:13-0400 Body mass index (BMI) [Ratio] 37.09 kg/m2 Dorcas Peralta CASUALTY INSURANCE CLAIM ADJUSTER Work Phone: [facility] 02-06-2025 11:13040 Body weight 91.99 kg Dorcas Peralta CASUALTY INSURANCE CLAIM ADJUSTER Work Phone: [facility] 02-06-2025 11:13-0400 Diastolic blood pressure 70 mm[Hg] Dorcas Peralta CASUALTY INSURANCE CLAIM ADJUSTER Work Phone: [facility] 02-06-2025 11:13-0400 Heart rate 83 /min Dorcas Peralta CASUALTY INSURANCE CLAIM ADJUSTER Work Phone: [facility] 02-06-2025 11:13-0400 SaO2% (BldA) [Mass fraction] 97 % Dorcas Peralta CASUALTY INSURANCE CLAIM ADJUSTER Work Phone: [facility] 02-06-2025 11:13-0400 Systolic blood pressure 122 mm[Hg] Dorcas Peralta CASUALTY INSURANCE CLAIM ADJUSTER Work Phone: [facility] 10-27-2024 16:10-0500 Body height 157.5 cm Sherie Maria DPM Work Phone: [facility] 10-27-2024 16:10-0500 Body mass index (BMI) [Ratio] 40.42 kg/m2 Sherie Maria DPM Work Phone: [facility] 10-27-2024 16:10-0500 Body weight 100.25 kg Sherie Maria DPM Work Phone: [facility] 09-15-2024 11:03-0500 Body height 157.5 cm Dorcas Peralta CASUALTY INSURANCE CLAIM ADJUSTER Work Phone: [facility] 09-15-2024 11:03-0500 Body mass index (BMI) [Ratio] 40.57 kg/m2 Dorcas Peralta CASUALTY INSURANCE CLAIM ADJUSTER Work Phone: [facility] 09-15-2024 11:03-0500 Body weight 100.61 kg Dorcas Peralta CASUALTY INSURANCE CLAIM ADJUSTER Work Phone: [facility] 09-15-2024 11:03-0500 Diastolic blood pressure 80 mm[Hg] Dorcas Peralta CASUALTY INSURANCE CLAIM ADJUSTER Work Phone: [facility] 09-15-2024 11:03-0500 Heart rate 104 /min Dorcas Peralta CASUALTY INSURANCE CLAIM ADJUSTER Work Phone: [facility] 09-15-2024 11:03-0500 SaO2% (BldA) [Mass fraction] 97 % Dorcas Peralta CASUALTY INSURANCE CLAIM ADJUSTER Work Phone: [facility] 09-15-2024 11:03-0500 Systolic blood pressure 116 mm[Hg] Dorcas Peralta CASUALTY INSURANCE CLAIM ADJUSTER Work Phone: [facility] 08-04-2024 15:35-0500 Body height 157.5 cm Sherie Maria DPM Work Phone: [facility] 08-04-2024 15:35-0500 Body mass index (BMI) [Ratio] 40.6 kg/m2 Sherie Maria DPM Work Phone: [facility] 08-04-2024 15:35-0500 Body weight 100.7 kg Sherie Maria DPM Work Phone: [facility] 06-16-2024 10:54-0400 Body height 157.5 cm Dorcas Peralta CASUALTY INSURANCE CLAIM ADJUSTER Work Phone: [facility] 06-16-2024 10:54-0400 Body mass index (BMI) [Ratio] 39.36 kg/m2 Dorcas Peralta CASUALTY INSURANCE CLAIM ADJUSTER Work Phone: [facility] 06-16-2024 10:54-0400 Body weight 97.61 kg Dorcas Peralta CASUALTY INSURANCE CLAIM ADJUSTER Work Phone: [facility] 06-16-2024 10:54-0400 Diastolic blood pressure 76 mm[Hg] Dorcas Peralta CASUALTY INSURANCE CLAIM ADJUSTER Work Phone: [facility] 06-16-2024 10:54-0400 Heart rate 98 /min Dorcas Peralta CASUALTY INSURANCE CLAIM ADJUSTER Work Phone: [facility] 06-16-2024 10:54-0400 SaO2% (BldA) [Mass fraction] 97 % Dorcas Peralta CASUALTY INSURANCE CLAIM ADJUSTER Work Phone: [facility] 06-16-2024 10:54-0400 Systolic blood pressure 120 mm[Hg] Dorcas Peralta CASUALTY INSURANCE CLAIM ADJUSTER Work Phone: [facility] 05-23-2024 10:24-0400 Body mass index (BMI) [Ratio] 38.99 kg/m2 Dorcas Peralta CASUALTY INSURANCE CLAIM ADJUSTER Work Phone: [facility] 05-23-2024 10:24-0400 Body weight 96.71 kg Dorcas Peralta CASUALTY INSURANCE CLAIM ADJUSTER Work Phone: [facility] 05-23-2024 10:24-0400 Diastolic blood pressure 72 mm[Hg] Dorcas Peralta CASUALTY INSURANCE CLAIM ADJUSTER Work Phone: [facility] 05-23-2024 10:24-0400 Heart rate 93 /min Dorcas Peralta CASUALTY INSURANCE CLAIM ADJUSTER Work Phone: [facility] 05-23-2024 10:24-0400 SaO2% (BldA) [Mass fraction] 99 % Dorcas Peralta CASUALTY INSURANCE CLAIM ADJUSTER Work Phone: [facility] 05-23-2024 10:24-0400 Systolic blood pressure 122 mm[Hg] Dorcas Peralta CASUALTY INSURANCE CLAIM ADJUSTER Work Phone: [facility] 05-14-2024 11:30-0400 Body height 157.5 cm Dorcas Peralta CASUALTY INSURANCE CLAIM ADJUSTER Work Phone: [facility] 05-14-2024 11:30-0400 Body mass index (BMI) [Ratio] 39.03 kg/m2 Dorcas Peralta CASUALTY INSURANCE CLAIM ADJUSTER Work Phone: [facility] 05-14-2024 11:30-0400 Body weight 96.8 kg Dorcas Peralta CASUALTY INSURANCE CLAIM ADJUSTER Work Phone: [facility] 05-14-2024 11:30-0400 Diastolic blood pressure 68 mm[Hg] Dorcas Peralta CASUALTY INSURANCE CLAIM ADJUSTER Work Phone: [facility] 05-14-2024 11:30-0400 Heart rate 109 /min Dorcas Peralta CASUALTY INSURANCE CLAIM ADJUSTER Work Phone: [facility] 05-14-2024 11:30-0400 SaO2% (BldA) [Mass fraction] 98 % Dorcas Peralta CASUALTY INSURANCE CLAIM ADJUSTER Work Phone: [facility] 05-14-2024 11:30-0400 Systolic blood pressure 110 mm[Hg] Dorcas Peralta CASUALTY INSURANCE CLAIM ADJUSTER Work Phone: [facility] 05-05-2024 10:18-0400 Body height 157.5 cm Jurgen English MD Work Phone: [facility] 05-05-2024 10:18-0400 Body mass index (BMI) [Ratio] 38.67 kg/m2 Jurgen English MD Work Phone: [facility] 05-05-2024 10:18-0400 Body weight 95.89 kg Jurgen English MD Work Phone: [facility] 05-05-2024 10:18-0400 Diastolic blood pressure 78 mm[Hg] Jurgen English MD Work Phone: [facility] 05-05-2024 10:18-0400 Heart rate 99 /min Jurgen English MD Work Phone: [facility] 05-05-2024 10:18-0400 SaO2% (BldA) [Mass fraction] 99 % Jurgen English MD Work Phone: [facility] 05-05-2024 10:18-0400 Systolic blood pressure 118 mm[Hg] Jurgen English MD Work Phone: [facility] 11-10-2019 14:27-0500 BMI (Body Mass Index) 35.43 kg/m2 Bradley Simmons [facility] [place] 11-10-2019 14:27-0500 Body Temperature 97.59 [degF] [facility] [place] 11-10-2019 14:270500 Body weight 90.72 kg Bradley Simmons [facility] [place] 11-10-2019 14:27-0500 BP Diastolic 65 mm[Hg] Bradley Simmons [facility] [place] 11-10-2019 14:27-0500 BP Systolic 102 mm[Hg] Bradley Simmons [facility] [place] 11-10-2019 14:0500 Height 160 cm Bradley Simmons [facility] [place] 11-10-2019 14:0500 Pulse Oximetry 99 % Bradley Simmons [facility] [place] Encounters Encounter Date Encounter Type Care Provider Facility Start: 08-19-2025 ambulatory Dorcas quintana PA-C Facility:[facility] Start: 02-06-2025 End: 02-06-2025 Bamboo flowsheet Dorcas Peralta CASUALTY INSURANCE CLAIM ADJUSTER Work Phone: [facility] Start: 02-06-2025 End: 02-06-2025 Bamboo flowsheet Dorcas Peralta CASUALTY INSURANCE CLAIM ADJUSTER Work Phone: [facility] Start: 02-06-2025 End: 02-06-2025 ambulatory DORCAS PERALTA Not Available Start: 02-06-2025 End: 02-06-2025 Office outpatient visit 25 minutes Dorcas Peralta CASUALTY INSURANCE CLAIM ADJUSTER Work Phone: [facility] Comment on above: Obstructive sleep ap deann syndrome (Primary Dx); Obesity, Class II, BMI 35-39.9; Chronic bilateral low back pain without sciatica Start: 02-03-2025 ambulatory Caitlyn Sparrow MD Facility:[facility] Start: 01-26-2025 End: 01-26-2025 ambulatory SHERIE MARIA Not Available Start: 01-26-2025 End: 01-26-2025 Bamboo flowsheet Sherie Maria DPM Work Phone: [facility] Start: 01-26-2025 End: 01-26-2025 Bamboo flowsheet Sherie Maria DPM Work Phone: [facility] Start: 12-22-2024 End: 12-22-2024 ambulatory Caitlyn Sparrow MD Facility:[facility] Start: 12-08-2024 End: 12-08-2024 ambulatory Sana Radford MD Facility:[facility] Start: 11-24-2024 End: 11-24-2024 Orders Only Celeste Dhaliwal USER EXPERIENCE DESIGNER-ADVANCED PRACTICE RN Work Phone: [facility] Start: 11-03-2024 End: 11-03-2024 Refill Nehal Alvarado WEAVER [employer]BBY [employer] Work Phone: [facility] Comment on above: Obstructive sleep ap deann syndrome Start: 10-27-2024 End: 10-27-2024 Office outpatient visit 15 minutes Sherie Maria DPM Work Phone: [facility] Comment on above: Dermatophytosis of n ail (Primary Dx); Dystrophic nail; Pain around toenail, right foot; Pain around toenail, left foot Start: 10-27-2024 End: 10-27-2024 ambulatory SHERIE MARIA Not Available Start: 10-27-2024 End: 10-27-2024 Bamboo flowsheet Sherie Maria DPM Work Phone: [facility] Start: 10-27-2024 End: 10-27-2024 Bamboo flowsheet Sherie Maria DPM Work Phone: [facility] Start: 10-13-2024 End: 10-13-2024 ambulatory Sana Radford MD Facility:[facility] Start: 09-22-2024 End: 09-22-2024 Orders Only Dorcas Peralta CASUALTY INSURANCE CLAIM ADJUSTER Work Phone: [facility] Comment on above: Obstructive sleep ap deann syndrome Start: 09-20-2024 End: 09-22-2024 Refill Jo-Ann Gee MD Work Phone: [facility] Comment on above: Tremor (Primary Dx) Start: 09-15-2024 End: 09-15-2024 Bamboo flowsheet Dorcas Peralta CASUALTY INSURANCE CLAIM ADJUSTER Work Phone: [facility] Start: 09-15-2024 End: 09-15-2024 Bamboo flowsheet Dorcas Kathryn CASUALTY INSURANCE CLAIM ADJUSTER Work Phone: [facility] Start: 09-15-2024 End: 09-15-2024 ambulatory CAITLYN Griffiths KYARA [facility] Start: 09-15-2024 End: 09-15-2024 Office outpatient visit 25 minutes Dorcas Peralta NP Work Phone: [facility] Comment on above: Morbid (severe) obes ity due to excess calories (CMS/HCC) (Primary Dx); BOGDAN (obstructive sleep apnea); Hepatic steatosis; Mixed hyperlipidemia (CMS/HCC); Elevated liver enzymes Start: 09-01-2024 End: 09-01-2024 ambulatory Sana Radford MD Facility: [place] Start: 08-13-2024 End: 08-13-2024 ambulatory Dorcas Thomas PA-C Facility:[facility] Start: 08-04-2024 End: 08-04-2024 Office outpatient new 30 minutes Sherie Maria DPM Work Phone: [facility] Comment on above: Tinea pedis of both feet (Primary Dx); Chronic dermatitis of feet; Dermatophytosis of nail; Pain around toenail, right foot; Pain around toenail, left foot Start: 08-04-2024 End: 08-04-2024 ambulatory SHERIE MARIA Not Available Start: 08-04-2024 End: 08-04-2024 Bamboo flowsheet Sherie Maria DPM Work Phone: [facility] Start: 08-04-2024 End: 08-04-2024 Bamboo flowsheet Sherie Maria DPM Work Phone: [facility] Start: 07-04-2024 End: 07-04-2024 ambulatory [facility] Start: 06-16-2024 End: 06-16-2024 Bamboo flowsheet Dorcas Peralta CASUALTY INSURANCE CLAIM ADJUSTER Work Phone: [facility] Start: 06-16-2024 End: 06-16-2024 Bamboo flowsheet Dorcas Peralta CASUALTY INSURANCE CLAIM ADJUSTER Work Phone: [facility] Start: 06-16-2024 End: 06-16-2024 Office outpatient visit 25 minutes Dorcas Peralta NP Work Phone: [facility] Comment on above: Morbid (severe) obes ity due to excess calories (CMS/HCC) (Primary Dx); Bipolar disorder in full remission, most recent episode unspecified type (CMS/HCC); Mixed dyslipidemia (CMS/HCC) Start: 06-16-2024 End: 06-16-2024 ambulatory DORCAS KATHRYN Not Available Start: 06-09-2024 End: 06-10-2024 Telephone encounter Marita Richardson RN [facility] Comment on above: Cholesterol labs Start: 05-26-2024 End: 05-29-2024 Refill Nehal Alvarado [employer] Work Phone: [facility] Comment on above: Gastroesophageal ref lux disease without esophagitis Rash (Primary Dx); Obesity, Class II, BMI 35-39.9 Start: 05-23-2024 End: 05-23-2024 Office outpatient visit 25 minutes Dorcas Peralta NP Work Phone: [facility] Comment on above: Folliculitis (Primar y Dx); Obesity, Class II, BMI 35-39.9; Morbid (severe) obesity due to excess calories (CMS/HCC); Gastro-esophageal reflux disease without esophagitis; Body mass index (BMI) 39.0-39.9, adult; Bipolar disorder, unspecified (CMS/HCC) Start: 05-23-2024 End: 05-23-2024 ambulatory DORCAS PERALTA Not Available Start: 05-22-2024 End: 05-22-2024 Orders Only Dorcas Peralta CASUALTY INSURANCE CLAIM ADJUSTER Work Phone: [facility] Comment on above: Dermatitis (Primary Dx) Start: 05-19-2024 End: 05-19-2024 [facility] Start: 05-19-2024 End: 05-19-2024 ambulatory [facility] Start: 05-14-2024 End: 05-14-2024 Bamboo flowsheet Dorcas Peralta CASUALTY INSURANCE CLAIM ADJUSTER Work Phone: [facility] Start: 05-14-2024 End: 05-14-2024 Bamboo flowsheet Dorcas Peralta CASUALTY INSURANCE CLAIM ADJUSTER Work Phone: [facility] Start: 05-14-2024 End: 05-14-2024 Office outpatient new 45 minutes Dorcas Peralta CASUALTY INSURANCE CLAIM ADJUSTER Work Phone: [facility] Comment on above: Obesity, Class II, B [place] 35-39.9 (Primary Dx); Encounter to establish care Start: 05-14-2024 End: 05-14-2024 ambulatory DORCAS PERALTA Not Available Start: 05-05-2024 End: 05-05-2024 Office outpatient new 45 minutes Luiza Webb DO Work Phone: [facility] Comment on above: Hypertriglyceridemia (Primary Dx); Sinus tachycardia; Chest pain, unspecified type; Palpitation; Vapes nicotine containing substance Start: 05-05-2024 End: 05-05-2024 ambulatory [facility] Start: 05-02-2024 End: 05-02-2024 Chart abstracting Scanning Provider External [facility] Start: 03-24-2024 End: 03-24-2024 [facility] Start: 03-23-2024 End: 03-24-2024 Emergency department patient visit LUIZA WEBB [facility] Start: 03-23-2024 End: 03-23-2024 Emergency department patient visit CAITLYN Griffiths [facility] Start: 03-10-2024 End: 04-10-2024 ambulatory [facility] Start: 03-08-2024 End: 03-08-2024 Emergency department patient visit CAITLYN Griffiths [facility] Start: 03-03-2024 End: 03-03-2024 ambulatory Sana Radford MD Facility:[facility] Start: 02-29-2024 End: 02-29-2024 ambulatory CAITLYN Griffiths [facility] Start: 02-18-2024 End: 02-18-2024 ambulatory Sana Radford MD Facility:[facility] Start: 02-11-2024 End: 03-10-2024 ambulatory [facility] Start: 01-23-2024 End: 02-09-2024 ambulatory [facility] Start: 11-30-2023 End: 11-30-2023 ambulatory [facility] Start: 11-30-2023 Encounter for genera l adult medical examination without abnormal findings [facility][1] Start: 08-09-2023 Refill Raymond Pierre ph, MD [...] 02-23-2022 End: 02-23-2022 ambulatory Karel Elaine Other [facility] Other Start: 02-23-2022 Telephone encounter Karel Elaine [facility] Start: 01-09-2022 Refill Raymond Pierre ph, MD Work Phone: Neurology Comment on above: Refill Request Start: 01-04-2022 End: 01-04-2022 ambulatory Karel Elaine Other [facility] Other Start: 01-04-2022 Telephone encounter Karel Elaine [facility] Start: 12-12-2021 End: 12-12-2021 ambulatory Karel Elaine Other [facility] Other Start: 12-12-2021 Telephone encounter Karel Elaine [facility] Start: 11-30-2021 End: 12-01-[address] MUNIRA DEAL Facility:[facility] Start: 11-16-2021 End: 11-16-2021 ambulatory Karel Elaine Other [facility] Other Start: 11-16-2021 Telephone encounter Karel Elaine [facility] Start: 10-11-2021 Encounter for prepro cedural laboratory examination DR MUNIRA DELA [facility] Start: 10-11-2021 End: 10-11-2021 ambulatory [...] 08-03-2021 End: 08-03-2021 ambulatory Karel Elaine Other [facility] Other Start: 08-03-2021 Telephone encounter Karel Elaine [facility] Start: 07-28-2021 End: 07-28-2021 ambulatory Karel Elaine Other [facility] Other Start: 07-28-2021 Telephone encounter Karel Elaine [facility] Start: 11-10-2019 End: 11-11-2019 Patient encounter procedure BRADLEY SIMMONS [facility] Start: 11-10-2019 End: 11-10-2019 Subsequent hospital visit by physician Bradley Simmons Work Phone: [facility] Comment on above: Arrived Procedures Date Procedure Procedure Detail Performing Clinician Start: 10-03-2021 Adult depression screening assessment Raymond Medina MD Work Phone: Plan of Treatment Date Care Activity Detail Author Start: 2036 Shingles Vaccine (1 of 2) Shingles Vaccine (1 of 2) [place], [place] Start: 06-10-2025 Influenza vaccination [facility] Comment on above: Postponed from 05/11/2024 (Patient Refus ed) Postponed from 05/11 (Patient Refused) Start: 05-19-2025 Adult BMI Screening Adult BMI Screening [facility] Start: 05-19-2025 Tobacco Screening Tobacco Screening [facility] Start: 05-08-2025 End: 05-08-2025 Patient encounter procedure 05/08/2025 11:00 AM EDT Office Visit [facility] [address] [place] [address] Dorcas Peralta NP [address] [place] [address] [facility] Start: 05-05-2025 Adult BMI Screening Adult BMI Screening [facility] Start: 05-05-2025 Tobacco Screening Tobacco Screening [facility] Start: 04-28-2025 End: 04-28-2025 Patient encounter procedure 04/28/2025 4:00 PM EDT Office Visit [facility] [address] [place] [phone] Sherie Maria DPM [address] [place] [address] [facility] Start: 03-23-2025 Adult BMI Screening Adult BMI Screening [facility] Start: 03-23-2025 Tobacco Screening Tobacco Screening [facility] Start: 01-26-2025 End: 01-26-2025 Patient encounter procedure [facility] Comment on above: Arrived Start: 12-15-2024 End: 12-15-2024 Patient encounter procedure 12/15/2024 11:00 AM EDT Office Visit [facility] [address] [place] [phone] Dorcas Peralta NP [address] [place] [address] [facility] Start: 11-08-2024 Medicare Annual Wellness (AWV) Medicare Annual Wellness (V) [facility] Start: 10-27-2024 End: 10-27-2024 Patient encounter procedure [facility] Comment on above: Arrived Start: 09-15-2024 End: 09-15-2024 Patient encounter procedure 09/15/2024 11:00 AM EST Office Visit [facility] [address] [place] [phone] Dorcas Peralta NP [address] [place] [address] [facility] Start: 09-08-2024 End: 06-09-2025 Alanine aminotransferase [Enzymatic activity/volume] in Serum or Plasma ALT Lab Routine Medication monitoring encounter Other hyperlipidemia Elevated triglycerides with high cholesterol Elevated LDL cholesterol level Severe obesity (BMI 35.0-39.9) with comorbidity (CMS-HCC) Other fatigue Expected: 09/08/2024 (Approximate), Expires: 06/09/2025 [email or web address] Comment on above: Expected: 09/08/2024 (Approximate), Expi res: 06/09/2025 Start: 09-08-2024 End: 06-09-2025 Aspartate aminotransferase [Enzymatic activity/volume] in Serum or Plasma AST Lab Routine Medication monitoring encounter Other hyperlipidemia Elevated triglycerides with high cholesterol Elevated LDL cholesterol level Severe obesity (BMI 35.0-39.9) with comorbidity (CMS-HCC) Other fatigue Expected: 09/08/2024 (Approximate), Expires: 06/09/2025 [email or web address] Comment on above: Expected: 09/08/2024 (Approximate), Expi res: 06/09/2025 Start: 09-08-2024 End: 06-09-2025 Cholesterol in LDL [Mass/volume] in Serum or Plasma LDL cholesterol, direct Lab Routine Medication monitoring encounter Other hyperlipidemia Elevated triglycerides with high cholesterol Elevated LDL cholesterol level Severe obesity (BMI 35.0-39.9) with comorbidity (CMS-HCC) Other fatigue Expected: 09/08/2024 (Approximate), Expires: 06/09/2025 [employer] Work Phone: Comment on above: Expected: 09/08/2024 (Approximate), Expi res: 06/09/2025 Start: 09-08-2024 End: 06-09-2025 Triglyceride [Mass/volume] in Serum or Plasma Triglycerides Lab Routine Medication monitoring encounter Other hyperlipidemia Elevated triglycerides with high cholesterol Elevated LDL cholesterol level Severe obesity (BMI 35.0-39.9) with comorbidity (CMS-HCC) Other fatigue Expected: 09/08/2024 (Approximate), Expires: 06/09/2025 [email or web address] Comment on above: Expected: 09/08/2024 (Approximate), Expi res: 06/09/2025 Start: 08-04-2024 End: 08-04-2024 Patient encounter procedure 08/04/2024 3:30 PM EST Office Visit [facility] [address] [place] [address] Sherie Maria DPM [address] [place] [address] Arrived [facility] Comment on above: Arrived Start: 06-16-2024 End: 06-16-2024 Patient encounter procedure [facility] Comment on above: Arrived Start: 05-14-2024 End: 05-14-2024 Patient encounter procedure 05/14/2024 11:30 AM EDT Office Visit [facility] [address] [place] [id number] Dorcas Peralta NP [address] [place] [address] Arrived [facility] Comment on above: Arrived Start: 05-11-2024 COVID-19 Vaccine ( season) COVID-19 Vaccine ( season) [facility] Start: 05-11-2024 COVID-19 Vaccine ( season) COVID-19 Vaccine () [facility] Start: 05-11-2024 Influenza vaccination [facility] Start: 05-05-2024 End: 05-05-2025 Echo complete W/O contrast Echo complete W/O contrast Echocardiography Routine Chest pain, unspecified type Expected: 05/05/2024, Expires: 05/05/2025 [facility] Comment on above: Expected: 05/05/2024, Expires: Start: 05-05-2024 End: 05-05-2025 Exercise stress test study Stress test (exercise only) Cardiac Services Routine Chest pain, unspecified type Expected: 05/05/2024, Expires: 05/05/2025 [facility] Comment on above: Expected: 05/05/2024, Expires: Start: 05-05-2024 End: 05-05-2024 Patient encounter procedure 05/05/2024 10:30 AM EDT [facility] [address] [place] [id number] Luiza Webb, [address] [place] [address] Jurgen English MD [address] [place], [place] [id number] [facility] Start: 05-11-2023 COVID-19 Vaccine ( season) COVID-19 Vaccine () [facility] Start: 05-11-2023 Influenza vaccination [facility] Start: 10-03-2022 Adult depression screening assessment DEPRESSION SCREENING [facility] Start: 09-10-2022 DEPRESSION ASSESSMENT DEPRESSION ASSESSMENT [facility] Start: 05-11-2022 Influenza vaccination [facility] Start: 03-29-2020 End: 03-29-2020 Appointment 03/29/2020 Appointment General Surgery Bradley Simmons MD [address], [place] [id number] [facility] Start: 05-11-2019 Influenza vaccination Flu vaccine (#1) [place], [place] Start: 2016 HPV TESTING HPV TESTING [facility] Start: 2016 Screening for malignant neoplasm of cervix [facility] Start: 2007 Cervical cancer screen Cervical cancer screen [place], [place] Start: 2007 PAP TESTING PAP TESTING [facility] Start: 2007 Screening for malignant neoplasm of cervix [facility] Start: 2005 Urine microalbumin profile DTAP,TDAP,TD (1 - Tdap) [facility] Start: 2004 Adult BMI Follow Up Plan Adult BMI Follow Up Plan [facility] Start: 2004 HEPATITIS C SCREENING HEPATITIS C SCREENING [facility] Start: 2004 Hepatitis C screening Hepatitis C Screening [facility] Start: 2004 HIV SCREENING HIV SCREENING [facility] Start: 2004 HIV screening HIV Screening [facility] Start: 2001 HIV screen HIV screen [place], [place] Start: 1998 Depression Screening Depression Screening [facility] Start: 12-25-1997 DTaP,Tdap and Td Vaccines (6 - Tdap) DTaP,Tdap and Td Vaccines (6 - Tdap) [facility] Start: 12-25-1997 Urine microalbumin profile DTaP,Tdap,Td Vaccine (6 - Tdap) [facility] Start: 1997 DTaP/Tdap/Td vaccine (1 - Tdap) DTaP/Tdap/Td vaccine (1 - Tdap) [place] Start: 1991 COVID-19 VACCINE (1) COVID-19 VACCINE (1) [facility] Start: 1987 Varicella vaccine (1 of 2 - 2-dose childhood series) Varicella vaccine (1 of 2 - 2-dose childhood series) [place], [place] Start: 01-14-1987 COVID-19 VACCINE (#1) COVID-19 VACCINE (#1) [facility] Start: 1986 HEPATITIS B (1 of 3 - 3-dose series) HEPATITIS B (1 of 3 - 3-dose series) [facility] Start: 1986 Medicare Annual Wellness (AWV) Medicare Annual Wellness (AWV) [facility] Start: 1986 Tobacco Counseling Tobacco Counseling [facility] End: 05-05-2025 Hepatic function 2000 panel - Serum or Plasma Hepatic function panel Lab Routine Hypertriglyceridemia 1 Occurrences starting 05/05/2024 until 05/05/2025 [facility] Comment on above: 1 Occurrences starting 05/05/2024 until 05/05/2025 End: 05-05-2025 Lipid 1996 panel - Serum or Plasma Lipid profile Lab Routine Hypertriglyceridemia 1 Occurrences starting 05/05/2024 until 05/05/2025 [facility] Work Phone: Comment on above: 1 Occurrences starting 05/05/2024 until 05/05/2025 Immunizations Immunization Date Immunization Notes Care Provider [facility] 05-15-2023 Influenza, injectabl e, Madin Renetta Canine Kidney, quadrivalent with preservative Dorcas Peralta NP Work Phone: [facility] 05-15-2023 influenza virus vaccine, unspecified formulation Jurgen English MD Work Phone: [facility] 07-13-2022 Influenza, injectabl e, Madin Denison Canine Kidney, preservative free, quadrivalent Dorcasdwight Cummingspfer [employer]UALTY INSURANCE CLAIM ADJUSTER Work Phone: [facility] 09-13-2021 influenza, injectabl e, quadrivalent, preservative free Dorcasdwight Cummingspfer [employer]UALTY INSURANCE CLAIM ADJUSTER Work Phone: [facility] 08-22-2019 influenza, injectabl e, quadrivalent, contains preservative Dorcasdwigth Cummingspfer CASUALTY INSURANCE CLAIM ADJUSTER Work Phone: [facility] 08-22-2019 influenza virus vaccine, unspecified formulation Raymond Medina MD Work Phone: [facility] 05-25-1998 hepatitis B vaccine, pediatric or pediatric/adolescent dosage Dorcasdwight Cummingspfer CASUALTY INSURANCE CLAIM ADJUSTER Work Phone: [facility] 12-24-1997 hepatitis B vaccine, pediatric or pediatric/adolescent dosage Dorcasdwight Cummingspfer CASUALTY INSURANCE CLAIM ADJUSTER Work Phone: [facility] 12-24-1997 TD(adult) unspecifie d formulation Dorcasdwight Cummingspfer CASUALTY INSURANCE CLAIM ADJUSTER Work Phone: [facility] 11-19-1997 hepatitis B vaccine, pediatric or pediatric/adolescent dosage Dorcasdwight Cummingspfer CASUALTY INSURANCE CLAIM ADJUSTER Work Phone: [facility] 11-19-1997 measles, mumps and rubella virus vaccine Dorcas Kampfer CASUALTY INSURANCE CLAIM ADJUSTER Work Phone: [facility] 10-26-1987 diphtheria, tetanus toxoids and pertussis vaccine Dorcasdwight Cummingspfer [employer]UALTY INSURANCE CLAIM ADJUSTER Work Phone: [facility] 10-26-1987 measles, mumps and rubella virus vaccine Dorcas Kampfer CASUALTY INSURANCE CLAIM ADJUSTER Work Phone: [facility] 10-26-1987 trivalent poliovirus vaccine, live, oral Dorcas Emilianopfer [employer] INSURANCE CLAIM ADJUSTER Work Phone: [facility] 02-17-1987 diphtheria, tetanus toxoids and pertussis vaccine Dorcas Emilianopfer [employer]UALTY INSURANCE CLAIM ADJUSTER Work Phone: [facility] 02-17-1987 trivalent poliovirus vaccine, live, oral Dorcas Peralta CASUALTY INSURANCE CLAIM ADJUSTER Work Phone: [facility] 1986 diphtheria, tetanus toxoids and pertussis vaccine Dorcas Cummingskiatiburcio CASUALTY INSURANCE CLAIM ADJUSTER Work Phone: [facility] 1986 trivalent poliovirus vaccine, live, oral Dorcas Peralta CASUALTY INSURANCE CLAIM ADJUSTER Work Phone: [facility] 1986 diphtheria, tetanus toxoids and pertussis vaccine Dorcas Peralta CASUALTY INSURANCE CLAIM ADJUSTER Work Phone: [facility] 1986 trivalent poliovirus vaccine, live, oral Dorcas Cummingskiatiburcio CASUALTY INSURANCE CLAIM ADJUSTER Work Phone: [facility] Healthcare Payers Date Payer Category Payer Medicare HMO [employer] MEDICARE [id number] 2024 Medicare [id number] 2024 Private Health Insurance 2019 Medicaid MEDICAID [facility] MEDICAID [id number] 2019-Present [phone] [address] [place] [address] Medicaid [id number] 2019 Medicaid [id number] 2019 Medicare MEDICARE MEDICAR E A AND B [id number] 2019-Present [phone] [address] [address] [place] [address] Medicare [id number] 2019 Medicare [id number] [id number] 2014 Medicaid MEDICAID [facility] DEPT OF JOB xxxxxxxxxxxx 2014-Present [phone] [address] [place] [address] xxxxxxxxxxxx [id number] 2014 Medicare MEDICARE MEDICAR E PART A AND B xxxxxxxxxxx 2014-Present [phone] [address] [address] [place] [address] xxxxxxxxxxx [id number] .[id number] 1986 Unknown [id number] 2.16.840.1.605403.3.579.2 .177 1986 Unknown [id number] 2.16.840.1.939569.3.579.2 .593 1986 Unknown [id number] 2.16.840.1.895702.3.579.2 .593 1986 Unknown [id number] 2.16.840.1.535235.3.579.2 .593 1986 Unknown [id number] 2.16.840.1.556617.3.579.2 .593 1986 Unknown [id number] 2.16.840.1.193683.3.579.2 .593 1986 Unknown [id number] 2.16.840.1.022578.3.579.2 .593 1986 Unknown [id number] 2.16.840.1.320352.3.579.2 .593 1986 Unknown [id number] 2.16.840.1.476644.3.579.2 .593 1986 Unknown [id number] 2.16.840.1.646113.3.579.2 .593 1986 Unknown [id number] 2.16.840.1.978839.3.579.2 .1285 1986 Unknown [id number] 2.16.840.1.125744.3.579.2 .1285 1986 Unknown [id number] 2.16.840.1.988168.3.579.2 .1285 1986 Unknown [id number] 2.16.840.1.530304.3.579.2 .1285 1986 Unknown [id number] 2.16.840.1.421857.3.579.2 .1285 1986 Unknown [id number] 2.16.840.1.121100.3.579.2 .1285 1986 Unknown [id number] 2.16840.1.557567.3.579.2 .1285 1986 Unknown [id number] 2.16840.1.050181.3.579.2 .1285 1986 Unknown [id number] 2.16840.1.310688.3.579.2 .1285 1986 Unknown [id number] 2.16.840.1.232398.3.579.2 .1285 1986 Unknown [id number] 2.16840.1.938863.3.579.2 .1285 1986 Unknown [id number] 2.16.840.1.670271.3.579.2 .1285 1986 Unknown [id number] 2.16.840.1.900122.3.579.2 .1285 1986 Unknown [id number] 2.16840.1.061934.3.579.2 .1285 1986 Unknown [id number] 2.16840.1.513650.3.579.2 .1285 1986 Unknown [id number] 2.16.840.1.597956.3.579.2 .1286 1986 Unknown [id number] 2.16.840.1.770770.3.579.2 .1286 1986 Unknown [id number] 2.16.840.1.670499.3.579.2 .1286 1986 Unknown [id number] 2.16.840.1.961442.3.579.2 .1286 1986 Unknown [id number] 2.16.840.1.217815.3.579.2 .1286 1986 Unknown [id number] 2.16.840.1.714471.3.579.2 .196 1986 Unknown [id number] 2.16.840.1.167142.3.579.2 .196 1986 Unknown [id number] 2.16.840.1.280193.3.579.2 .196 1986 Unknown [id number] 2.16.840.1.709511.3.579.2 .196 1986 Unknown [id number] 2.16.840.1.012738.3.579.2 .196 1986 Unknown [id number] 2.16.840.1.177193.3.579.2 .196 1986 Unknown [id number] 2.16.840.1.186640.3.579.2 .196 1986 Unknown [id number] 2.16.840.1.841671.3.579.2 .196 1986 Unknown [id number] 2.16.840.1.516205.3.579.2 .196 1986 Unknown [id number] 2.16.840.1.141210.3.579.2 .1259 1986 Unknown [id number] 2.16.840.1.234354.3.579.2 .1259 1986 Unknown [id number] 2.16.840.1.576118.3.579.2 .1259 1986 Unknown [id number] 2.16.840.1.041044.3.579.2 .1259 1986 Unknown [id number] 2.16.840.1.530312.3.579.2 .1259 1986 Unknown [id number] 2.16.840.1.358634.3.579.2 .1259 1986 Unknown [id number] 2.16.840.1.164444.3.579.2 .1259 1986 Unknown [id number] 2.16.840.1.879082.3.579.2 .1259 1959 Medicaid [id number] 1959 Medicare [id number] Social History Date Type Detail Facility Start: 11-25-2018 End: 11-10-2019 Tobacco smoking status TXIS Never smoker [facility] Start: 11-10-2019 End: 02-06-2025 Alcohol intake Current drinker of alcohol (finding) [place], [place] Start: 11-10-2019 Alcohol Comment [place], [place] Start: 1986 Sex Assigned At Not on file [place] Start: 11-25-2018 End: 05-14-2024 Tobacco use and exposure Smokeless tobacco non-user [facility] Start: 11-25-2018 History SDOH Alcohol Comment [facility] Start: 04-21-2019 End: 09-14-2024 Sex Assigned At [facility] Start: 04-21-2019 End: 09-14-2024 History of Social function [facility] Adult Depression Screening Assessment 4 [facility] Start: 05-05-2024 End: 05-14-2024 Tobacco smoking status TXIS Smokes tobacco daily [facility] Start: 05-14-2024 Tobacco Comment Vapes daily [facility] Start: 05-14-2024 Alcohol Comment caffeine intake: 12 oz coffee daily [facility] Tobacco smoking stat [facility] Tobacco smoking consumption unknown [facility] [...] Tobacco: Every Day Vaping/E-cigarettes Smok[facility] Start: 01-20-2022 Alcohol Comment socially [facility] Start: 04-15-2015 Sex Female (finding) [facility] Medical Equipment Procedure Code Equipment Code Equipment Origin al Text Equipment Identifier Dates Mesh Pco Vntrl P tch 8.6cm [facility] [id number] - Sn/A - [id number] Start: 04-01-2019 Clinical Notes 09-15-2021 to 02-06-2025 Dorcas Peralta NP - 02/06/2025 11:00 AM Maite Maria DPM - 10/27/2024 4:15 PM ESTPatient InstructionsDorcas Peralta NP - 09/15/2024 11:00 AM eMlodie Maria DPM - 08/04/2024 3:30 PM EST [...] tablet 1 tablet, Every 6 hours PRN Hermosa-3 Fatty Acids (FISH OIL OMEGA-3 PO) 2 [...] management as scheduled documented in this encounter [facility] 10-27-2024 History of Present illness Narrative Images [...] (six) hours if needed, Disp: , Rfl: Hermosa-3 Fatty Acids (FISH OIL OMEGA-3 PO), Take [...] Sherie Maria DPM documented in this encounter [facility] 10-27-2024 Instructions Sherie Maria DPM - 10/27/2024 4:15 PM EST Topical care measures as noted documented in this encounter [facility] 09-15-2024 History of Present illness Narrative Images [...] have her cholesterol levels checked tomorrow. Her radiology physician has expressed concern over her fluctuating liver enzyme levels and has ordered a retest. She has not undergone any extensive workup for her liver, only lab tests. Her liver enzyme levels have shown variability in the past. She is uncertain if she has fatty liver disease. She has been prescribed a sao tomean for a toenail fungus, which has proven [...] tablet 1 tablet, Every 6 hours PRN Hermosa-3 Fatty Acids (FISH OIL OMEGA-3 PO) 2 [...] Morbid (severe) obesity due to excess calories (CMS/[facility]) - Tirzepatide (Mounjaro) 2.5 MG/0.5ML solution auto-injector; [...] agreeable to this. documented in this encounter [facility] 08-11-2024 Note Patient Education Ma terials Name: Mayuri Marita Adriana Current Date: 08/11/2024 16:18:15 [facility] : 1985 The following sheet(s) [...] breast self-exam (BSE). These experts include the [place] [employer] and the [place] [employer]nec[employer]. Some experts [...] means they are not cancer. ? [employer]. All rights reserved. This information is not [...] prevent urine, gas, or stool leakage. ? 0210-8375 [employer]. All rights reserved. This information is not intended as a substitute fo (more content not included)... [facility] 08-04-2024 History of Present illness Narrative Subjective Patient ID: Marita Messina is a 39 y.o. female who presents for Fungus (Pt is here today for fungal nails, first noticed about 1 yr ago. Also athlete's foot BL. She has tried OTC topical fungal sao tomean, no change noted. /SS:8 ). HPI Initial [...] and not practical. Patient typically has toenail sao tomean on a constant basis. Also complains of [...] (six) hours if needed, Disp: , Rfl: Hermosa-3 Fatty Acids (FISH OIL OMEGA-3 PO), Take [...] most recent hepatic enzymes elevated (May 2024). Boulevard agreement to proceed with topical care measures: [...] Sherie Maria DPM documented in this encounter [facility] 08-04-2024 Instructions Sherie Maria DPM - 08/04/2024 3:30 PM EST As noted documented in this encounter [facility] 06-16-2024 History of Present illness [...] 1 tablet, Oral, Every 6 hours PRN Hermosa-3 Fatty Acids (FISH OIL OMEGA-3 PO) 2 [...] PCAB accredited and rated highly by the [employer]. Prescription sent to pharmacy Bipolar disorder in full remission, most recent episode unspecified type (CMS/HCC) -Followed by psych Mixed dyslipidemia (CMS/HCC) -Followed by cardiology documented in this encounter [facility] 06-09-2024 Miscellaneous Notes Images from the original note were not included. Pt called back as she stated that received a msg from [facility]: her recent cholesterol labs. Reviewed recent cholesterol labs and result notes/orders from [place] as charted below: Jennifer Zamora PharmD 06/09/2024 [...] that script for Repatha be sent to [facility] in [place] and stated that she will get the Fish Oil OTC. Above orders routed to the [place] to sign and send.-SRS documented in this encounter [email or web address] 06-09-2024 Telephone encounter Note Images from the [...] that script for Repatha be sent to [facility] in [place] and stated that she will get the Fish Oil OTC. Above orders routed to the [place] to sign and send.-SRS [facility] 05-23-2024 History of Present illness Narrative [...] Morbid (severe) obesity due to excess calories ([facility]) Gastro-esophageal reflux disease without esophagitis Body mass index (BMI) 39.0-39.9, adult Bipolar disorder, unspecified ([facility]) documented in this encounter [facility] 05-22-2024 History of Present illness Narrative kade documented in this encounter [facility] 05-14-2024 History of Present illness [...] to be refilled. 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 [facility], SINUS TACHY, NO PREVIOUS CARDIO, [...] Obstructive sleep apnea hypopnea, mild Pulmonary embolism ([facility]) history of , approx 2013 Sleep apnea Visual impairment contacts, glasses No data recorded No data recorded No data recorded Past Surgical History: Procedure Laterality Date DENTAL SURGERY wisdom teeth HERNIA REPAIR HYSTERECTOMY PARTIAL LASER ABLATION CONDYLOMA CERVICAL / VULVAR REPAIR HERNIA INCISIONAL VENTRAL MESH N/A 04/01/2019 Performed by Luis A Gr DO at [facility] Family History Problem Relation [...] Sinus tachycardia - [facility] [place], [place] 2. Chest pain, unspecified type - [facility] [place], [place] - Stress test (exercise only); Future - Echo complete W/O contrast; Future 3. Palpitation - [facility] [place], [place] 4. Hypertriglyceridemia - Lipid profile; Future [...] SPARROW MD Referring Physician: Caitlyn Sparrow MD [address] [place] [address] documented in this encounter [email or web address] 08-09-2023 Miscellaneous Notes Please see pended medication. Pharmacy linked. Last ordered 03/09/2023. Ashtyn Perez MA documented in this encounter [facility] 03-09-2023 Miscellaneous Notes Please see pended medication. Pharmacy linked. Last ordered 10/25/2022. Ashtyn Perez MA documented in this encounter [facility] 07-11-2022 Note CONSULTATION PROCEDURE DATE: 07/11/2022 PREOPERATIVE [...] be followed up in the office. [facility] 07-11-2022 Note CONSULTATION CONSULTATION DATE: 07/11/2022 CHIEF COMPLAINT: Trapezius and upper back pain. HISTORY OF PRESENT ILLNESS: This is a 36-year-old female who is known to the [facility]. The patient, in October of this year, had a rhizotomy radiofrequency ablation along her cervical spine. This has afforded the patient significant improvement. 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 CC: Caitlyn Sparrow M.D. [facility] 05-23-2022 Miscellaneous Notes Please see pended medication. Pharmacy linked. Last ordered 10/20/2021. Ashtyn Perez Ma documented in this encounter [facility] 03-08-2022 Note CONSULTATION CONSULTATION DATE: 03/08/2022 HISTORY [...] Patient does agree with plan of care. [facility] Signed and Approved by: LUDA RODRIGUEZ . 03/09/2022 13:38:00 [facility] 01-09-2022 Miscellaneous Notes Please see pended medication. Pharmacy linked. Last ordered 07/05/2021. Ashtyn Perez Ma documented in this encounter [facility] 11-30-2021 Note CONSULTATION PAIN MANAGEMENT CONSULTATION HISTORY [...] time, and patient agrees to this plan. [facility] Signed and Approved by: LUDA RODRIGUEZ . 12/01/2021 12:26:00 [facility] 09-15-2021 Note The [place], [place] NAME: MARITA MESSINA Deysi DATE OF : MEDICAL REC#: [id number] AIRCRAFT NAVIGATOR: [id number] ADMIT DATE: 09/15/2021 12:21:00 MOLD ENGRAVER DATE: 09/16/2021 11:00 DICTATING PHYSICIAN: LUDA RODRIGUEZ [...] Luda Rodriguez CNP on 09/25/2021 11:23 PM [facility] Signed and Approved by: LUDA RODRIGUEZ . 09/25/2021 23:23:00 [facility] Evaluation note Diagnosis Excessive physiologic tremor Essential and other specified forms of tremor documented in this [facility] [employer] Other Evaluation note* Diagnosis Daytime sleepiness Narcolepsy without cataplexy documented [facility] this encounter [facility] Diagnosis Daytime sleepiness Narcolepsy without cataplexy documented in this encounter [facility] [facility]* Diagnosis Daytime sleepiness Narcolepsy without cataplexy documented in this encounter [facility]* Diagnosis Morbid (severe) obesity due to excess calories (CMS/HCC)- Primary Bipolar disorder in full remission, most recent episode unspecified type (CMS/HCC) Mixed dyslipidemia (CMS/HCC) documented in this encounter [facility] HealthcareEvaluation note* Diagnosis Tinea pedis of both feet- Primary Chronic dermatitis of feet Contact dermatitis and other eczema, due to unspecified cause Dermatophytosis of nail Pain around toenail, right foot Pain around toenail, left foot documented in this encounter [facility] HealthcareEvaluation note* Diagnosis Dermatitis- Primary Contact dermatitis and other eczema, due to unspecified cause documented in this encounter [facility] HealthcareEvaluation note* Diagnosis Folliculitis- Primary Other specified disease of hair and hair follicles Obesity, Class II, BMI 35-39.9 Morbid (severe) obesity due to excess calories (CMS/HCC) Gastro-esophageal reflux disease without esophagitis Body mass index (BMI) 39.0-39.9, adult Bipolar disorder, unspecified (CMS/HCC) Bipolar disorder, unspecified documented in this encounter [facility] HealthcareEvaluation note* Diagnosis Gastroesophageal reflux disease without esophagitis Esophageal reflux documented in this encounter [facility] HealthcareEvaluation note* Diagnosis Obesity, Class II, BMI 35-39.9- Primary Encounter to establish care documented in this encounter [facility] HealthcareEvaluation note* Diagnosis Rash- Primary Rash and other nonspecific skin eruption Obesity, Class II, BMI 35-39.9 documented in this encounter [facility] HealthcareEvaluation note* Diagnosis Morbid (severe) obesity due to excess calories (CMS/HCC)- Primary BOGDAN (obstructive sleep apnea) Obstructive sleep apnea (adult) (pediatric) Hepatic steatosis Other chronic nonalcoholic liver disease Mixed hyperlipidemia (CMS/HCC) Mixed hyperlipidemia Elevated liver enzymes Other nonspecific abnormal serum enzyme levels documented in this encounter [facility] HealthcareEvaluation note* Diagnosis Obstructive sleep apnea syndrome Obstructive sleep apnea (adult) (pediatric) documented in this encounter [facility] HealthcareEvaluation note* Diagnosis Tremor- Primary Abnormal involuntary movements documented in this encounter [facility] HealthcareEvaluation note* Diagnosis Hypertriglyceridemia- Primary Pure hyperglyceridemia Sinus tachycardia Other specified cardiac dysrhythmias Chest pain, unspecified type Palpitation Palpitations Vapes nicotine containing substance documented in this encounter [facility]* Diagnosis Medication monitoring encounter- Primary Encounter for therapeutic drug monitoring Other hyperlipidemia Elevated triglycerides with high cholesterol Mixed hyperlipidemia Elevated LDL cholesterol level Severe obesity (BMI 35.0-39.9) with comorbidity (CMS-HCC) Other fatigue documented in this encounter [facility]* Diagnosis Dermatophytosis of nail- Primary Dystrophic nail Other specified disease of nail Pain around toenail, right foot Pain around toenail, left foot documented in this encounter [facility] HealthcareEvaluation note* Diagnosis Obstructive sleep apnea syndrome Obstructive sleep apnea (adult) (pediatric) documented in this encounter [facility] HealthcareEvaluation note* Diagnosis Obstructive sleep apnea syndrome- Primary Obstructive sleep apnea (adult) (pediatric) Obesity, Class II, BMI 35-39.9 Chronic bilateral low back pain without sciatica documented in this encounter [facility] HealthcareInstructionsNot on filedocumented in this encounterProDec[facility] SystemInstructionsNot on filedocumented in this encounterProDecatur [facility] SystemInstructionsNot on filedocumented in this encounterProDec[facility] InstructionsNot on filedocumented in this encounterPro[facility] Summary Purpose Family History No Family History Records FoundNo Family History Records FoundNo Family History Records FoundNo Family History Records FoundNo Family History Records FoundNo Family History Records FoundNo Family History Records Found Advance Directives No Advanced Directives Records FoundDocuments on File Type Date Recorded 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 Advance Directives and Living Will Power of [employer] History of Present Illness * Bradley Simmons MD - 11/10/2019 2:00 PM EST [facility] PATIENT NAME: Marita Messina MRN NUMBER: [id number] DATE OF : 1985 PHONE NUMBER: [phone] PRIMARY CARE PHYSICIAN: No primary care provider [...] year had repair above belly button at [facility] HERNIA REPAIR umbilical and above belly buton also at [facility] about 2 years ago HYSTERECTOMY TUMOR REMOVAL Left 2012 left thumb at [facility] Family History: Family History Problem Relation [...] CT scan reports and images from the [facility] from May 2019 and March [...] Jurgen English MD [address] [place] [address] Referral ID Status Reason Start Date Expiration Date V isits Requested Visits Authorized [id number] Pending Review 05/05/2024 05/05/2025 1 1 Specialty Diagnoses / Procedures Referred By Contac t Referred To Contact Diagnoses Chest pain, unspecified type Procedures Stress test (exercise only) Jurgen English MD [address] [place] [address] Referral ID Status Reason Start Date Expiration Date V isits Requested Visits Authorized [id number] Pending Review 05/05/2024 05/05/2025 5 5 Additional Source Comments INFORMATION SOURCE (unrecogn ized section and content) DATE CREATED AUTHOR 05/31/2019 [facility] DATE CREATED AUTHOR AUTHOR'S ORGANIZ ATION 11/11/2019 [facility] DATE CREATED AUTHOR AUTHOR'S ORGANIZ ATION 12/01/2021 [facility] DATE CREATED AUTHOR AUTHOR'S ORGANIZ ATION 09/02/2022 [facility] DATE CREATED AUTHOR AUTHOR'S ORGANIZ ATION 11/05/2024 [facility] DATE CREATED AUTHOR AUTHOR'S ORGANIZ ATION 02/06/2025 [facility] DATE CREATED AUTHOR AUTHOR'S ORGANIZ ATION 02/08/2025 [facility] EPIC Source Comments (unrecognize d section and content) In the event this informatio n is protected by the Federal Confidentiality of Alcohol and Drug Abuse Patient Records regulations: The Federal rules restrict any use of the information to criminally investigate or prosecute any alcohol or drug abuse patient.[facility] [place]woodIn the event this information is protected by the Federal Confidentiality of Alcohol and Drug Abuse Patient Records regulations: The Federal rules restrict any use of the information to criminally investigate or prosecute any alcohol or drug abuse patient.[facility] [place]woodIn the event this information is protected by the Federal Confidentiality of Alcohol and Drug Abuse Patient Records regulations: The Federal rules restrict any use of the information to criminally investigate or prosecute any alcohol or drug abuse patient.[facility] [place]woodIn the event this information is protected by the Federal Confidentiality of Alcohol and Drug Abuse Patient Records regulations: The Federal rules restrict any use of the information to criminally investigate or prosecute any alcohol or drug abuse patient.[facility] [place] Reason for Visit (unrecogniz ed section and content) Reason Onset Date Comments Refill Request 01/09/2022 Reason Onset Date Comments Refill Request 03/09/2023 Reason Onset Date Comments Refill Request 08/09/2023 Reason Comments Follow-up Reason Comments Fungus Pt is here today for fungal nails, first noticed about 1 yr ago. Also athlete's foot BL. She has tried OTC topical fungal sao tomean, no change noted. 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 [facility], SINUS TAC HY, NO PREVIOUS CARDIO, SCHED W/PT Specialty Diagnoses / Procedures Referred By Vickie ahumada Referred To Contact Cardiology Diagnoses Sinus tachycardia Chest pain, unspecified type Palpitation Luiza Webb, DO [address] [place] [address] [facility] [address] [id number] Referral ID Status Reason Start Date Expiration Date Visits Requested Visits Authorized [id number] Pending Review Specialty Services Required 03/23/2024 03/23/2025 [...] Care Teams (unrecognized sec tion and content) Slitter Helper Relationship Specialty Start Date End Date Caitlyn Sparrow [address] [place], [place] [id number] PCP - General Internal Medicine 11/25/18 Slitter Helper Relationship Specialty Start Date End Date Caitlyn Sparrow [address] [place], [place] [id number] PCP - General Internal Medicine 11/25/18 Slitter Helper Relationship Specialty Start Date End Date Caitlyn Sparrow [address] [place], [place] [id number] PCP - General Internal Medicine 11/25/18 Slitter Helper Relationship Specialty Start Date End Date Caitlyn Sparrow [address] [address] PCP - General Internal Medicine 11/25/18 Slitter Helper Relationship Specialty Start Date End Date Jo-Ann Gee MD [address] [place] [address] PCP - General Family Medicine 05/09/24 Slitter Helper Relationship Specialty Start Date End Date Jo-Ann Gee MD [address] [place] [address] PCP - General Family Medicine 05/09/24 Slitter Helper Relationship Specialty Start Date End Date Jo-Ann Gee MD [address] [place] [address] PCP - General Family Medicine 05/09/24 Slitter Helper Relationship Specialty Start Date End Date Jo-Ann Gee MD [address] [place] [address] PCP - General Family Medicine 05/09/24 Slitter Helper Relationship Specialty Start Date End Date Jo-Ann Gee MD [address] [place] [address] PCP - General Family Medicine 05/09/24 Slitter Helper Relationship Specialty Start Date End Date Jo-Ann Gee MD [address] [place] [address] PCP - General Family Medicine 05/09/24 Slitter Helper Relationship Specialty Start Date End Date Jo-Ann Gee MD [address] [place] [address] PCP - General Family Medicine 05/09/24 Slitter Helper Relationship Specialty Start Date End Date Jo-Ann Gee MD [address] [place] [address] PCP - General Family Medicine 05/09/24 Slitter Helper Relationship Specialty Start Date End Date Jo-Ann Gee MD [address] [place] [address] PCP - General Family Medicine 05/09/24 Slitter Helper Relationship Specialty Start Date End Date Jo-Ann Gee MD [address] [place] [address] PCP - General Family Medicine 05/09/24 Jo-Ann Gee MD [address] [place] [address] PCP - [employer] 09/10/24 Slitter Helper Relationship Specialty Start Date End Date Jo-Ann Gee MD [address] [place] [address] PCP - General Family Medicine 05/09/24 Jo-Ann Gee MD [address] [place] [address] PCP - [employer] 09/10/24 Slitter Helper Relationship Specialty Start Date End Date Caitlyn Sparrow MD PCP - General Pediatrics 03/08/24 Slitter Helper Relationship Specialty Start Date End Date Caitlyn Sparrow MD PCP - General Pediatrics 03/08/24 Slitter Helper Relationship Specialty Start Date End Date Caitlyn Sparrow MD PCP - General Pediatrics 03/08/24 Slitter Helper Relationship Specialty Start Date End Date Jo-Ann Gee MD [address] [facility] [place] [address] PCP - General Family Medicine 05/09/24 Jo-Ann Gee MD [address] [facility] [place] [address] PCP - [employer] 09/10/24 Slitter Helper Relationship Specialty Start Date End Date Jo-Ann Gee MD [address] [facility] [place] [address] PCP - General Family Medicine 05/09/24 Jo-Ann Gee MD [address] [facility] [place] [address] PCP - [employer] 09/10/24 Slitter Helper Relationship Specialty Start Date End Date Jo-Ann Gee MD [address] [facility] [place] [address] PCP - General Family Medicine 08/20/24 Slitter Helper Relationship Specialty Start Date End Date Jo-Ann Gee MD [address] [facility] [place] [address] PCP - General Family Medicine 05/09/24 Jo-Ann Gee MD [address] [facility] [place] [address] PCP - [employer] 09/10/24 Slitter Helper Relationship Specialty Start Date End Date Jo-Ann Gee MD [address] [facility] [place], [place] [id number] PCP - General Family Medicine 05/09/24 Jo-Ann Gee MD [address] [place], [place] [id number] PCP - [employer] 09/10/24 Dorcas Peralta NP [address] [facility] [place], [place] [id number] Nurse Practitioner Family Medicine 02/06/25 FOR RECORDS [...] BE BASED ON THE PRIMARY CLINICAL RECORDS. [facility] [employer] [facility]. provides no warranty or guarantee of the accuracy or completeness of information in this document.
[2025-03-02 10:05] VITALS: BP 116/80; PULSE 95; TEMP 36.6; O2SAT 98
[2025-03-02 10:39] VITALS: BP 121/76; PULSE 91; O2SAT 98
[2025-03-02 10:40] VITALS: BP 119/72; PULSE 76; O2SAT 98
[2025-03-02] MEDS: BUPIVACAINE HCL 0.25% PF 25 MG/10 ML VIAL 4 ML INJ (10:42)
[2025-03-02] MEDS: LIDOCAINE HCL 2% 400 MG/20 ML MDV INJ (10:43)
[2025-03-02] MEDS: IOHEXOL 240 MG/ML - 10 ML VIAL INJ (10:43)
[2025-03-02] MEDS: METHYLPREDNISOLONE ACETATE 40 MG/ML VIAL 80 MG INJ (10:43)
--- NOTE | 2025-03-02 10:44 | W.PM.PROCNOT ---
Date of procedure: 03/02/25 Pre-op diagnosis: Pain due to bilateral sacroiliitis Post-op diagnosis: same as pre-op Procedure: Procedure: Bilateral sacroiliac joint injection Medications: Bupivacaine 0.25% 3cc, depomedrol 40mg x2 After informed consent was obtained, the patient was brought to the medical procedure unit and placed in the prone position, when a timeout was completed verifying correct patient, procedure, site, positioning, implant, and/or special equipment.? The skin overlying the area was prepped and draped in standard sterile fashion using alcohol.? A 25-gauge needle was inserted towards the left sacroiliac joint under direct fluoroscopic imaging.? Needle tip was advanced until the joint was encountered.? We instilled a total of 2 mL of solution.? The same procedure was then completed on the right side.? Postoperatively needles were removed.? The patient tolerated the procedure well without complication.? The patient reported reduction in pain symptoms postoperatively. Anesthesia: Local Surgeon: Sana Radford Pathology: none sent Condition: stable Disposition: no change
== END 2025-03-02 10:48 | disposition home or self-care (01) ==
LOC: SURGOUT 09:26
PROVIDERS: PCP Internal Medicine; Visit Provider Anesthesiology
DX: M46.1 Sacroiliitis, not elsewhere classified (principal); M53.3 Sacrococcygeal disorders, not elsewhere classified
CPT/HCPCS: 27096; J0665; J1010; Q9966

== ENCOUNTER 2025-03-12 09:50 | Outpatient (OUT) | payer MEDICARE, MEDICAID, SELFPAY ==
--- OUTSIDE RECORDS SUMMARY | 2025-03-12 10:03 | XMS_ITS | CCD ---
Author Organization [facility] Care Team Providers Care Shirring Tender Name Role Phone SIMMONSBRADLEY Referring Unavailable Unavailable [...] Avalos Admitting Unavailable RONNIE, EVETTE Consulting Unavailable LDUA RODRIGUEZ Consulting Unavailable TOYIN, DR MUNIRA Avalos [...] Primary Care Provider Gerard CLEMONS, Jo-Ann Unavailable [phone] Kyara CLEMONS, Caitlyn Griffiths Primary Care Provider [...] CLEMONS, Jo-Ann Yadav Primary Care Provider Kathryn STRAPPER, Dorcas Unavailable Martha RUSSO, Dorcas Stewart Attending Christian Sparrow MD, [facility] Ness janice Sparrow MD, [facility] vailable Martha RUSSO, Dorcas Stewart Attending Christian Radford MD, Sana Doyle Attending Unavailable Kyara CLEMONS, [facility] Ness vailable Malina CLEMONS, Sana Doyle Attending Unavailable Kyara CLEMONS, [facility] N[facility] vailable Malina CLEMONS, Sana Doyle Attending Unavailable Kyara CLEMONS, [facility] N[facility] vailable Malina CLEMONS, Sana Doyle Attending Unavailable Kyara CLEMONS, [facility] N[facility] vailable Malina CLEMONS, Sana Doyle Attending Unavailable Kyara CLEMONS, [facility] Ness vailamei Sparrow MD, [facility] vailable Malina CLEMONS, Sana Doyle Attending Unavailable Martha RUSSO, Dorcas Stewart Attending Christian Sparrow MD, [facility] Ness vailaSHERIE Clements Attending Unavailable SHERIE MARIA Attending Unavailable KATHRYN, DORCAS Attending Unavailable KAMPTIBURCIO, DORCAS Attending Unavailable KAMPTIBURCIO, DORCAS Attending Unavailable KAMPFER, DORCAS Attending Unavailable SHERIE MARIA Attending Unavailable DORCAS PERALTA Attending Unavailable Allergies Allergy Classification Reported Allergen(s) Allergy Type Date of Onset Reaction(s) Facility (20 sources) Acetaminophen / HYDROcodone; Translations: [HYDROCODONE-ACETA MINOPHEN] Drug Allergy 10-09-2019 [place], [place] (9 sources) Acetaminophen / HYDROcodone; Translations: [Vicodin] Drug Allergy 09-10-2014 [facility] Repository Medications Current Medications Medication Drug [...] 140 MG/ML as directed Subcutaneous monthly Active [id number] 200 actuat albuterol 0.09 mg/actuat metered dose [...] mg/ml / clotrimazole 10 mg/ml topical cream (16 sources) Azole Antifungal, Corticosteroid Start: 08-04-2024 clotrimazole-betamethasone [...] 05/23/2024 06/02/2024 Active take 1 capsule by [facility] every twenty-four hours Doxycycline Hyclate 100 [...] clinician) hydrOXYzine pamoate 50 mg oral capsule (17 sources) Antihistamine Start: 08-04-2024 hydrOXYzine pa moate [...] a day for 30 days Active omega 3-xye-evk-fish oil (Fish OiL) 300-1,000 mg capsule (2 sources) Start: 06-10-2024 take 1 capsule by mouth in the morning omega 2-bek-iye-fish oil (Fish OiL) 300-1,000 mg capsule Take 2 g by mouth in the morning and 2 g before bedtime. 06/10/2024 Active Paoli-3 Fatty Acids (FISH OIL OMEGA-3 PO) (19 sources) take 2 tablets by mouth twice daily in the morning Paoli-3 Fatty Acids (FISH OIL OMEGA-3 PO) Take 2 g by mouth in the morning and 2 g before bedtime. 2 g 2 tab bid. . Active omeprazole 20 mg delayed release oral capsule (20 sources) Proton Pump Inhibitor Start: 03-10-2025 take 1 capsule by mouth once daily omeprazole (PriLOSEC) [address] capsule Indications: Gastroesophageal reflux disease without esophagitis TAKE 1 CAPSULE(20 MG) BY MOUTH 1 TIME EACH DAY AT THE SAME TIME 90 capsule 03/10/2025 Active Start: 05-26-2024 End: 03-10-2025 take 1 capsule by mouth once daily omeprazole (PriLOSEC) [address] capsule Indications: Gastroesophageal reflux disease without esophagitis TAKE 1 CAPSULE(20 MG) BY MOUTH 1 TIME EACH DAY AT THE SAME TIME 90 capsule 12/18/2024 03/10/2025 Discontinued Start: 11-07-2018 omeprazole (Pr iLOSEC) 40 mg [...] 05/21/2019 Active take 1 tablet by anu three times daily propranolol (INDERAL) 10 mg [...] Tirzepatide-Weight Management (Zepbound) 10 MG/0.5ML solution auto-injector (3 sources) Start: 02-06-2025 inject 10 mg by [...] Active traZODone hydrochloride 50 mg oral tablet (14 sources) Serotonin Reuptake Inhibitor take 1 tablet [...] mg oral tablet (5 sources) Phenothiazine Start: 019 take 1 tablet by mouth twice daily [...] 65-1 mg tablet (2 sources) Start: End: 024 take 1 tablet by mouth in the [...] nigricans] Onset: 02-29-2024 Episodic Residual codes; unclassified (14 sources) Nicotine-filled electronic cigarette user; Translations: [Tobacco [...] ALT [Catalytic activity/Vol] 51 U/L High 0-31 [facility] Comment on above: Performed By: #### 2 4331-1, THYR, CBCA, CMP, 93534-9 #### [facility] ([id number]) [address], [address] [place] [address] Silas 11-03-2024 AST [Catalytic activity/Vol] 38 U/L Normal 0-41 [facility] Comment on above: Performed By: #### 2 4331-1, THYR, CBCA, CMP, 48566-8 #### [facility] ([id number]) [address], [address] [place] [address] DIRECT LDLon 11-03-2024 Cholesterol in LDL [Mass/Vol] 65 mg/dL Normal <130 [facility] Comment on above: Result Comment: LDL <100 mg/dL - Desirable LDL 130-159 mg/dL - Borderline High Risk LDL >160 mg/dL - High Risk Performed By: #### 2 4331-1, THYR, CBCA, CMP, 46158-2 #### [facility] ([id number]) [address] [place] [address] TRIGLYCERIDEon 11-03-2024 Triglyceride [Mass/Vol] 234 mg/dL High 27-150 [facility] Comment on above: Performed By: #### 2 4331-1, THYR, CBCA, CMP, 14792-8 #### [facility] ([id number]) [address], [address] [place] [address] MR CERVICAL SPINE WO CONTon 09-16-2024 MR [...] on 09/16/2024 2:09 PM Normal [facility] Gynecology Office/Clinic Not freddie 08-13-2024 Gynecology [...] cover after 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 MAC ARTIST Additional Details Contraception Contraception TypeIntrauterine device, Vasectomy [...] (more content not included)... Normal [facility] COMPREHENSIVE METABOLIC PANE Mika 05-19-2024 Albumin [Mass/Vol] 4.6 g/dL Normal 3.2-5.3 [facility] Comment on above: Performed By: #### 2 4331-1, THYR, CBCA, CMP, 53580-6 #### [facility] ([id number]) [address], [address] [place] [address] ALP [Catalytic activity/Vol] 78 U/L Normal 39-130 [facility] Comment on above: Performed By: #### 2 4331-1, THYR, CBCA, CMP, 07592-8 #### [facility] ([id number]) [address], [address] [place] [address] ALT [Catalytic activity/Vol] 85 U/L High 0-31 [facility] Comment on above: Performed By: #### 2 4331-1, THYR, CBCA, CMP, 12855-2 #### [facility] ([id number]) [address], [address] [place] [address] Anion gap [Moles/Vol] 15 mmol/L Normal 5-15 [facility] Comment on above: Performed By: #### 2 4331-1, THYR, CBCA, CMP, 11207-1 #### [facility] ([id number]) [address], [address] [place] [address] AST [Catalytic activity/Vol] 54 U/L High 0-41 [facility] Comment on above: Performed By: #### 2 4331-1, THYR, CBCA, CMP, 85659-7 #### [facility] ([id number]) [address], [facility] [address] [place] [address] Bilirubin [Mass/Vol] 0.6 mg/dL Normal 0.3-1.2 [facility] Comment on above: Performed By: #### 2 4331-1, THYR, CBCA, CMP, 63159-6 #### [facility] ([id number]) [address], [facility] [address] [place] [address] Calcium [Mass/Vol] 9.6 mg/dL Normal 8.5-10.5 [facility] Comment on above: Performed By: #### 2 4331-1, THYR, CBCA, CMP, 84769-3 #### [facility] ([id number]) [address], [address] [place] [address] Chloride [Moles/Vol] 102 mmol/L Normal 98-109 [facility] Comment on above: Performed By: #### 2 4331-1, THYR, CBCA, CMP, 70263-3 #### [facility] ([id number]) [address], [address] [place] [address] CO2 [Moles/Vol] 19 mmol/L Low 22-32 [facility] Comment on above: Performed By: #### 2 4331-1, THYR, CBCA, CMP, 21504-3 #### [facility] ([id number]) [address], [address] [place] [address] Creatinine [Mass/Vol] 0.89 mg/dL Normal 0.40-1.00 [facility] Comment on above: Result Comment: METH OD TRACEABLE TO IDMS STANDARD Performed By: #### 2 4331-1, THYR, CBCA, CMP, 41514-8 #### [facility] ([id number]) [address] [address] [place] [address] GFR/1.73 sq M.predicted among non-blacks MDRD (S/P/Bld) [Vol rate/Area] 86 mL/min/{1.73_m2} Normal >59 [facility] Comment on above: Result Comment: Reported eGFR is based on the CKD-EPI 2020 equation that does not use a race coefficient. Performed By: #### 2 4331-1, THYR, CBCA, CMP, 68980-8 #### [facility] ([id number]) [address], [facility] [address] [place] [address] Glucose [Mass/Vol] 95 mg/dL Normal 65-99 [facility] Comment on above: Performed By: #### 2 4331-1, THYR, CBCA, CMP, 33765-1 #### [facility] ([id number]) [address], [address] [place] [address] Potassium [Moles/Vol] 4.0 mmol/L Normal 3.5-5.0 [facility] Comment on above: Performed By: #### 2 4331-1, THYR, CBCA, CMP, 09589-8 #### [facility] ([id number]) [address], [address] [place] [address] Protein [Mass/Vol] 7.0 g/dL Normal 6.0-8.0 [facility] Comment on above: Performed By: #### 2 4331-1, THYR, CBCA, CMP, 26453-2 #### [facility] ([id number]) [address] [address] [place] [address] Sodium [Moles/Vol] 136 mmol/L Normal 134-146 [facility] Comment on above: Performed By: #### 2 4331-1, THYR, CBCA, CMP, 26790-9 #### [facility] ([id number]) [address], [address] [place] [address] Urea nitrogen [Mass/Vol] 10 mg/dL Normal 5-23 [facility] Comment on above: Performed By: #### 2 4331-1, THYR, CBCA, CMP, 92607-6 #### [facility] ([id number]) [address], [address] [place] [address] DIRECT LDLon 05-19-2024 Cholesterol in LDL [Mass/Vol] 181 mg/dL High <130 [facility] Comment on above: Result Comment: LDL <100 mg/dL - Desirable LDL 130-159 mg/dL - Borderline High Risk LDL >160 mg/dL - High Risk Performed By: #### 2 4331-1, THYR, CBCA, CMP, 88050-1 #### [facility] ([id number]) [address], [address] [place] [address] LIVER PANELon 05-19-2024 Bilirubin.direct [Mass/Vol] 0.1 mg/dL Normal 0.0-0.4 [facility] Comment on above: Performed By: #### 2 4331-1, THYR, CBCA, CMP, 86247-3 #### [facility] ([id number]) [address], [address] [place] [address] Lipid 1996 panelon Cholesterol [Mass/Vol] 276 mg/dL High 150-200 [facility] Comment on above: Performed By: #### 2 4331-1, THYR, CBCA, CMP, 39384-2 #### [facility] ([id number]) [address], [address] [place] [address] Cholesterol in HDL [Mass/Vol] 42 mg/dL Normal >39 [facility] Comment on above: Result Comment: HDL <40 mg/dL - High Risk HDL > or = 40mg/dL- Desirable HDL >60 mg/dL - Negative Risk Performed By: #### 2 4331-1, THYR, CBCA, CMP, 44624-8 #### [facility] ([id number]) [address], [address] [place] [address] Cholesterol in VLDL [Mass/Vol] 98 mg/dL High 0-30 [facility] Comment on above: Performed By: #### 2 4331-1, THYR, CBCA, CMP, 41488-1 #### [facility] ([id number]) [address], [address] [place] [address] CHOLESTEROL:HDL 6.6 High 1.0-5.0 [facility] Comment on above: Performed By: #### 2 4331-1, THYR, CBCA, CMP, 85650-5 #### [facility] ([id number]) [address], [address] [place] [address] LDL (CALC) RESULT NOT REPORTED DUE TO HIGH TRIGLYCERIDE Normal <130 [facility] Comment on above: Performed By: #### 2 4331-1, THYR, CBCA, CMP, 06470-8 #### [facility] ([id number]) [address], [address] [place] [address] Triglyceride [Mass/Vol] 488 mg/dL High 27-150 [facility] Comment on above: Performed By: #### 2 4331-1, THYR, CBCA, CMP, 62537-7 #### [facility] ([id number]) [address], [address] [place] [address] MR LUMBAR SPINE WO CONTon MR LUMBAR [...] on 03/26/2024 1:45 PM Normal [facility] CBC AND AUTO DIFFon 03-23-20 24 ABSOLUTE BASOPHIL 0.0 X10E9/L Normal 0.0-0.2 [facility] Comment on above: Performed By: #### 2 4331-1, THYR, CBCA, CMP, 06367-3 #### [facility] ([id number]) [address], [address] [place] [address] ABSOLUTE NEUTROPHIL 4.7 X10E9/L Normal 1.5-6.6 [facility] Comment on above: Performed By: #### 2 4331-1, THYR, CBCA, CMP, 10673-3 #### [facility] ([id number]) [address] [address] [place] [address] Basophils/100 WBC (Bld) 0.3 % Normal [facility] Comment on above: Performed By: #### 2 4331-1, THYR, CBCA, CMP, 69082-3 #### [facility] ([id number]) [address], [facility] [address] [place] [address] Eosinophils (Bld) [#/Vol] 0.0 10*3/uL Normal 0.0-0.4 [facility] Comment on above: Performed By: #### 2 4331-1, THYR, CBCA, CMP, 16141-1 #### [facility] ([id number]) [address] [address] [place] [address] Eosinophils/100 WBC (Bld) 0.4 % Normal [facility] Comment on above: Performed By: #### 2 4331-1, THYR, CBCA, CMP, 19511-4 #### [facility] ([id number]) [address] [address] [place] [address] Erythrocyte distribution width (RBC) [Ratio] 13.5 % Normal 11.5-15.0 [facility] Comment on above: Performed By: #### 2 4331-1, THYR, CBCA, CMP, 21382-2 #### [facility] ([id number]) [address] [address] [place] [address] Hematocrit (Bld) [Volume fraction] 44.6 % Normal 35-47 [facility] Comment on above: Performed By: #### 2 4331-1, THYR, CBCA, CMP, 38290-9 #### [facility] ([id number]) [address] [address] [place] [address] Hemoglobin (Bld) [Mass/Vol] 15.6 g/dL High 11.7-15.5 [facility] Comment on above: Performed By: #### 2 4331-1, THYR, CBCA, CMP, 20606-1 #### [facility] ([id number]) [address] [address] [place] [address] Lymphocytes (Bld) [#/Vol] 0.5 10*3/uL Low 1.0-3.5 [facility] Comment on above: Performed By: #### 2 4331-1, THYR, CBCA, CMP, 20775-4 #### [facility] ([id number]) [address] [address] [place] [address] Lymphocytes/100 WBC (Bld) 8.7 % Normal [facility] Comment on above: Performed By: #### 2 4331-1, THYR, CBCA, CMP, 59865-4 #### [facility] ([id number]) [address] [address] [place] [address] MCH (RBC) [Entitic mass] 32.5 pg Normal 27-34 [facility] Comment on above: Performed By: #### 2 4331-1, THYR, CBCA, CMP, 22947-3 #### [facility] ([id number]) [address] [address] [place] [address] MCHC (RBC) [Mass/Vol] 34.9 g/dL Normal 32-36 [facility] Comment on above: Performed By: #### 2 4331-1, THYR, CBCA, CMP, 76829-3 #### [facility] ([id number]) [address] [address] [place] [address] MCV (RBC) [Entitic vol] 93 fL Normal 80-100 [facility] Comment on above: Performed By: #### 2 4331-1, THYR, CBCA, CMP, 55574-5 #### [facility] ([id number]) [address] [place] [address] Monocytes (Bld) [#/Vol] 0.0 10*3/uL Normal 0-0.9 [facility] Comment on above: Performed By: #### 2 4331-1, THYR, CBCA, CMP, 04655-1 #### [facility] ([id number]) [address], [facility] [address] [place] [address] Monocytes/100 WBC (Bld) 0.6 % Normal [facility] Comment on above: Performed By: #### 2 4331-1, THYR, CBCA, CMP, 22659-6 #### [facility] ([id number]) [address], [facility] [address] [place] [address] Neutrophils/100 WBC (Bld) 90.0 % Normal [facility] Comment on above: Performed By: #### 2 4331-1, THYR, CBCA, CMP, 12738-8 #### [facility] ([id number]) [address] [address] [place] [address] Platelet mean volume (Bld) [Entitic vol] 7.2 fL Normal 7-12 [facility] Comment on above: Performed By: #### 2 4331-1, THYR, CBCA, CMP, 60921-9 #### [facility] ([id number]) [address] [address] [place] [address] Platelets (Bld) [#/Vol] 286 10*3/uL Normal 150-450 [facility] Comment on above: Performed By: #### 2 4331-1, THYR, CBCA, CMP, 45286-4 #### [facility] ([id number]) [address] [address] [place] [address] RBC COUNT 4.80 X10E12/L Normal 3.80-5.20 [facility] Comment on above: Performed By: #### 2 4331-1, THYR, CBCA, CMP, 72798-0 #### [facility] ([id number]) [address] [place] [address] WBC (Bld) [#/Vol] 5.3 10*3/uL Normal 4.0-11.0 [facility] Comment on above: Performed By: #### 2 4331-1, THYR, CBCA, CMP, 69634-9 #### [facility] ([id number]) [address], [address] [place] [address] COMPREHENSIVE METABOLIC PANE Mika 03-23-2024 Albumin [Mass/Vol] 4.2 g/dL Normal 3.2-5.3 [facility] Comment on above: Performed By: #### 2 4331-1, THYR, CBCA, CMP, 11819-2 #### [facility] ([id number]) [address], [address] [place] [address] ALP [Catalytic activity/Vol] 115 U/L Normal 39-130 [facility] Comment on above: Performed By: #### 2 4331-1, THYR, CBCA, CMP, 60329-2 #### [facility] ([id number]) [address] [address] [place] [address] ALT [Catalytic activity/Vol] 81 U/L High 0-31 [facility] Comment on above: Performed By: #### 2 4331-1, THYR, CBCA, CMP, 98754-0 #### [facility] ([id number]) [address] [place] [address] Anion gap [Moles/Vol] 14 mmol/L Normal 5-15 [facility] Comment on above: Performed By: #### 2 4331-1, THYR, CBCA, CMP, 26526-2 #### [facility] ([id number]) [address] [place] [address] AST [Catalytic activity/Vol] 48 U/L High 0-41 [facility] Comment on above: Performed By: #### 2 4331-1, THYR, CBCA, CMP, 76011-9 #### [facility] ([id number]) [address] [place] [address] Bilirubin [Mass/Vol] 1.3 mg/dL High 0.3-1.2 [facility] Comment on above: Performed By: #### 2 4331-1, THYR, CBCA, CMP, 53825-4 #### [facility] ([id number]) [address] [place] [address] Calcium [Mass/Vol] 9.3 mg/dL Normal 8.5-10.5 [facility] Comment on above: Performed By: #### 2 4331-1, THYR, CBCA, CMP, 76240-3 #### [facility] ([id number]) [address] [place] [address] Chloride [Moles/Vol] 97 mmol/L Low 98-109 [facility] Comment on above: Performed By: #### 2 4331-1, THYR, CBCA, CMP, 33079-0 #### [facility] ([id number]) [address] [place] [address] CO2 [Moles/Vol] 22 mmol/L Normal 22-32 [facility] Comment on above: Performed By: #### 2 4331-1, THYR, CBCA, CMP, 97243-6 #### [facility] ([id number]) [address] [place] [address] Creatinine [Mass/Vol] 0.91 mg/dL Normal 0.40-1.00 [facility] Comment on above: Result Comment: METH OD TRACEABLE TO IDMS STANDARD Performed By: #### 2 4331-1, THYR, CBCA, CMP, 46299-1 #### [facility] ([id number]) [address] [address] [place] [address] GFR/1.73 sq M.predicted among non-blacks MDRD (S/P/Bld) [Vol rate/Area] 83 mL/min/{1.73_m2} Normal >59 [facility] Comment on above: Result Comment: Reported eGFR is based on the CKD-EPI 2020 equation that does not use a race coefficient. Performed By: #### 2 4331-1, THYR, CBCA, CMP, 68638-1 #### [facility] ([id number]) [address], [facility] [address] [place] [address] Glucose [Mass/Vol] 110 mg/dL High 65-99 [facility] Comment on above: Performed By: #### 2 4331-1, THYR, CBCA, CMP, 59767-8 #### [facility] ([id number]) [address] [address] [place] [address] Potassium [Moles/Vol] 3.8 mmol/L Normal 3.5-5.0 [facility] Comment on above: Performed By: #### 2 4331-1, THYR, CBCA, CMP, 76265-7 #### [facility] ([id number]) [address] [address] [place] [address] Protein [Mass/Vol] 8.0 g/dL Normal 6.0-8.0 [facility] Comment on above: Performed By: #### 2 4331-1, THYR, CBCA, CMP, 55177-3 #### [facility] ([id number]) [address] [address] [place] [address] Sodium [Moles/Vol] 133 mmol/L Low 134-146 [facility] Comment on above: Performed By: #### 2 4331-1, THYR, CBCA, CMP, 17272-6 #### [facility] ([id number]) [address] [place] [address] Urea nitrogen [Mass/Vol] 13 mg/dL Normal 5-23 [facility] Comment on above: Performed By: #### 2 4331-1, THYR, CBCA, CMP, 07094-6 #### [facility] ([id number]) [address] [place] [address] CT CTA CHESTon 03-23-2024 CT CTA CHEST [...] and/or edited the report Finalized by Joe Chaaprro MD on 03/23/2024 10:52 PM Normal [facility] Fibrin D-dimer DDU (PPP) [Ma ss/Vol]on 03-23-2024 D DIMER 336 ng/mL DDU High <255 [facility] Comment on above: Result Comment: Results [...] By: #### 2 4331-1, THYR, CBCA, CMP, 49607-9 #### [facility] ([id number]) [address], [address] [place] [address] HCG ( test) Ql (U)o n 03-23-2024 Beta HCG ( test) Ql (U) Negative Normal NEG [facility] Comment on above: Performed By: #### 2 4331-1, THYR, CBCA, CMP, 96128-1 #### [facility] ([id number]) [address], [address] [place] [address] LIPASEon 03-23-2024 Lipase [Catalytic activity/Vol] 30 U/L Normal 17-40 [facility] Comment on above: Performed By: #### 2 4331-1, THYR, CBCA, CMP, 00561-0 #### [facility] ([id number]) [address], [address] [place] [address] THYROID PROFILEon 03-23-2024 Free T4 [Mass/Vol] 0.74 ng/dL Normal 0.61-1.60 [facility] Comment on above: Performed By: #### 2 4331-1, THYR, CBCA, CMP, 24615-3 #### [facility] ([id number]) [address], [address] [place] [address] TSH 1.64 uIU/mL Normal 0.49-4.67 [facility] Comment on above: Performed By: #### 2 4331-1, THYR, CBCA, CMP, 77061-5 #### [facility] ([id number]) [address], [address] [place] [address] Troponin I.cardiac High sens itivity method [Mass/Vol]on 03-23-2024 1 HOUR TROP I, HIGH SENSITIVITY 3 ng/L Normal <16 [facility] Comment on above: Performed By: #### 2 4331-1, THYR, CBCA, CMP, 31217-9 #### [facility] ([id number]) [address], [address] [place] [address] TROPONIN I, HIGH SENSITIVITY 2 ng/L Normal <16 [facility] Comment on above: Performed By: #### 2 4331-1, THYR, CBCA, CMP, 30611-9 #### [facility] ([id number]) [address], [address] [place] [address] URINE CULTUREon 03-23-2024 Bacteria identified Cx Nom [...] LE S <=1/19 F Susceptible [facility] Comment on above: Performed By: #### 2 4331-1, THYR, CBCA, CMP, 49597-7 #### [facility] ([id number]) [address], [address] [place] [address] URN MACROSCOPIC NURon 2023 BILIRUBIN LUL Negative Normal NEG [facility] Comment on above: Performed By: #### 2 4331-1, THYR, CBCA, CMP, 82577-1 #### [facility] ([id number]) [address], [address] [place] [address] BLOOD/HGB LUL Small Abnormal NEG [facility] Comment on above: Performed By: #### 2 4331-1, THYR, CBCA, CMP, 96912-7 #### [facility] ([id number]) [address], [address] [place] [address] GLUCOSE LUL Negative Normal NEG [facility] Comment on above: Performed By: #### 2 4331-1, THYR, CBCA, CMP, 96301-4 #### [facility] ([id number]) [address], [address] [place] [address] KETONES LUL Negative Normal NEG [facility] Comment on above: Performed By: #### 2 4331-1, THYR, CBCA, CMP, 61220-6 #### [facility] ([id number]) [address], [address] [place] [address] LEUKOCYTE ESTERASE LUL Small Abnormal NEG [facility] Comment on above: Performed By: #### 2 4331-1, THYR, CBCA, CMP, 74557-1 #### [facility] ([id number]) [address], [address] [place] [address] NITRITE LUL Negative Normal NEG [facility] Comment on above: Performed By: #### 2 4331-1, THYR, CBCA, CMP, 07905-2 #### [facility] ([id number]) [address], [address] [place] [address] PH LUL 5.5 Normal 5.0-8.5 [facility] Comment on above: Performed By: #### 2 4331-1, THYR, CBCA, CMP, 76859-1 #### [facility] ([id number]) [address], [address] [place] [address] PROTEIN LUL Negative Normal NEG [facility] Comment on above: Performed By: #### 2 4331-1, THYR, CBCA, CMP, 57729-7 #### [facility] ([id number]) [address], [facility] [address] [place] [address] SPECIFIC GRAVITY LUL 1.010 Normal 1.003-1.035 [facility] Comment on above: Performed By: #### 2 4331-1, THYR, CBCA, CMP, 73224-3 #### [facility] ([id number]) [address], [facility] [address] [place] [address] UROBILINOGEN LUL 0.2 eu/dL Normal <1.1 [facility] Comment on above: Performed By: #### 2 4331-1, THYR, CBCA, CMP, 60302-9 #### [facility] ([id number]) [address], [facility] [address] [place] [address] CBC AND AUTO DIFFon 02-28- 24 ABSOLUTE BASOPHIL 0.0 X10E9/L Normal 0.0-0.2 [facility] Comment on above: Performed By: #### T HYR, HA1C, CBCA, 54959-0 #### [facility] ([id number]) [address] [address] [place] [address] ABSOLUTE NEUTROPHIL 2.8 X10E9/L Normal 1.5-6.6 [facility] Comment on above: Performed By: #### T HYR, HA1C, CBCA, 55958-3 #### [facility] ([id number]) [address] [address] [place] [address] Basophils/100 WBC (Bld) 0.7 % Normal [facility] Comment on above: Performed By: #### T HYR, HA1C, CBCA, 32836-2 #### [facility] ([id number]) [address], [address] [place] [address] Eosinophils (Bld) [#/Vol] 0.1 10*3/uL Normal 0.0-0.4 [facility] Comment on above: Performed By: #### T HYR, HA1C, CBCA, 02950-8 #### [facility] ([id number]) [address], [facility] [address] [place] [address] Eosinophils/100 WBC (Bld) 2.1 % Normal [facility] Comment on above: Performed By: #### T HYR, HA1C, CBCA, 73014-9 #### [facility] ([id number]) [address], [facility] [address] [place] [address] Erythrocyte distribution width (RBC) [Ratio] 13.7 % Normal 11.5-15.0 [facility] Comment on above: Performed By: #### T HYR, HA1C, CBCA, 38378-9 #### [facility] ([id number]) [address], [address] [place] [address] Hematocrit (Bld) [Volume fraction] 45.0 % Normal 35-47 [facility] Comment on above: Performed By: #### T HYR, HA1C, CBCA, 54903-4 #### [facility] ([id number]) [address], [address] [place] [address] Hemoglobin (Bld) [Mass/Vol] 15.5 g/dL Normal 11.7-15.5 [facility] Comment on above: Performed By: #### T HYR, HA1C, CBCA, 89680-7 #### [facility] ([id number]) [address], [address] [place] [address] Lymphocytes (Bld) [#/Vol] 1.4 10*3/uL Normal 1.0-3.5 [facility] Comment on above: Performed By: #### T HYR, HA1C, CBCA, 87647-4 #### [facility] ([id number]) [address] [address] [place] [address] Lymphocytes/100 WBC (Bld) 28.9 % Normal [facility] Comment on above: Performed By: #### T HYR, HA1C, CBCA, 71238-1 #### [facility] ([id number]) [address], [facility] [address] [place] [address] MCH (RBC) [Entitic mass] 32.0 pg Normal 27-34 [facility] Comment on above: Performed By: #### T HYR, HA1C, CBCA, 48501-2 #### [facility] ([id number]) [address] [place] [address] MCHC (RBC) [Mass/Vol] 34.3 g/dL Normal 32-36 [facility] Comment on above: Performed By: #### T HYR, HA1C, CBCA, 07704-0 #### [facility] ([id number]) [address], [facility] [address] [place] [address] MCV (RBC) [Entitic vol] 93 fL Normal 80-100 [facility] Comment on above: Performed By: #### T HYR, HA1C, CBCA, 05246-1 #### [facility] ([id number]) [address], [facility] [address] [place] [address] Monocytes (Bld) [#/Vol] 0.4 10*3/uL Normal 0-0.9 [facility] Comment on above: Performed By: #### T HYR, HA1C, CBCA, 36895-3 #### [facility] ([id number]) [address], [address] [place] [address] Monocytes/100 WBC (Bld) 8.4 % Normal [facility] Comment on above: Performed By: #### T HYR, HA1C, CBCA, 40451-3 #### [facility] ([id number]) [address], [address] [place] [address] Neutrophils/100 WBC (Bld) 59.9 % Normal [facility] Comment on above: Performed By: #### T HYR, HA1C, CBCA, 99448-4 #### [facility] ([id number]) [address], [address] [place] [address] Platelet mean volume (Bld) [Entitic vol] 8.5 fL Normal 7-12 [facility] Comment on above: Performed By: #### T HYR, HA1C, CBCA, 21740-2 #### [facility] ([id number]) [address], [address] [place] [address] Platelets (Bld) [#/Vol] 272 10*3/uL Normal 150-450 [facility] Comment on above: Performed By: #### T HYR, HA1C, CBCA, 54407-0 #### [facility] ([id number]) [address], [address] [place] [address] RBC COUNT 4.83 X10E12/L Normal 3.80-5.20 [facility] Comment on above: Performed By: #### T HYR, HA1C, CBCA, 01523-3 #### [facility] ([id number]) [address], [address] [place] [address] WBC (Bld) [#/Vol] 4.7 10*3/uL Normal 4.0-11.0 [facility] Comment on above: Performed By: #### T HYR, HA1C, CBCA, 85267-2 #### [facility] ([id number]) [address], [address] [place] [address] HGB A1C (GLYCO-HGB)on 2023 Glucose [Mass/Vol] 97 mg/dL Normal [facility] Comment on above: Performed By: #### T HYR, HA1C, CBCA, 77021-3 #### [facility] ([id number]) [address], [address] [place] [address] HbA1c (Bld) [Mass fraction] 5.0 % Normal 4.4-5.6 [facility] Comment on above: Result Comment: NOTE ADA Guidelines Result HgbA1c Normal : less than 5.7 % Prediabetes : 5.7 % to 6.4 % Diabetes : > 6.4 % Use with caution in patients with abnormal hemoglobin variants as the half-life of red blood cells and in vivo glycation rates are affected. Performed By: #### T HYR, HA1C, CBCA, 33264-6 #### [facility] ([id number]) [address], [address] [place] [address] THYROID PROFILEon 02-29-2024 Free T4 [Mass/Vol] 0.67 ng/dL Normal 0.61-1.60 [facility] Comment on above: Performed By: #### T CHANELLE, HA1C, CBCA, 30715-8 #### [facility] ([id number]) [address] [place] [address] TSH 1.84 uIU/mL Normal 0.49-4.67 [facility] Comment on above: Performed By: #### T HYR, HA1C, CBCA, 72310-6 #### [facility] ([id number]) [address], [address] [place] [address] Vitamin D+Metabolites [Mass/ Vol]on 02-29-2024 VITAMIN D 25 HYD TOT 32.3 ng/mL Normal 30-100 [facility] Comment on above: Result Comment: Vitamin D status 25 [place] Vitamin D Deficiency <20 ng/mL Insufficiency 20-29 ng/mL Sufficiency 30-100 ng/mL Toxicity >100 ng/mL NOTE: A pediatric reference range has not been established by the bilingual customer service of this kit. The [place] [employer] recommends a Vitamin D level of = or >20ng/mL in infants and children. Performed By: #### 2 4331-1, THYR, CBCA, CMP, 22811-2 #### [facility] ([id number]) [address] [facility] [place] [address] XR LUMBAR SPINE AP, LATERAL, FLEXION AND [...] on 12/03/2023 10:04 AM Normal [facility] XR SPINE CERVICAL 3 VWS OR [...] on 12/02/2023 7:06 AM Normal [facility] CBC AND AUTO DIFFon 11-30-19 ABSOLUTE BASOPHIL 0.0 X10E9/L Normal 0.0-0.2 [facility] Comment on above: Performed By: #### 2 4331-1, THYR, CBCA, CMP, 89761-0 #### [facility] ([id number]) [address], [address] [place] [address] ABSOLUTE NEUTROPHIL 2.5 X10E9/L Normal 1.5-6.6 [facility] Comment on above: Performed By: #### 2 4331-1, THYR, CBCA, CMP, 07931-6 #### [facility] ([id number]) [address], [address] [place] [address] Basophils/100 WBC (Bld) 0.5 % Normal [facility] Comment on above: Performed By: #### 2 4331-1, THYR, CBCA, CMP, 62731-0 #### [facility] ([id number]) [address], [address] [place] [address] Eosinophils (Bld) [#/Vol] 0.0 10*3/uL Normal 0.0-0.4 [facility] Comment on above: Performed By: #### 2 4331-1, THYR, CBCA, CMP, 94849-4 #### [facility] ([id number]) [address] [place] [address] Eosinophils/100 WBC (Bld) 1.2 % Normal [facility] Comment on above: Performed By: #### 2 4331-1, THYR, CBCA, CMP, 93346-7 #### [facility] ([id number]) [address] [place] [address] Erythrocyte distribution width (RBC) [Ratio] 13.7 % Normal 11.5-15.0 [facility] Comment on above: Performed By: #### 2 4331-1, THYR, CBCA, CMP, 36217-3 #### [facility] ([id number]) [address] [address] [place] [address] Hematocrit (Bld) [Volume fraction] 43.0 % Normal 35-47 [facility] Comment on above: Performed By: #### 2 4331-1, THYR, CBCA, CMP, 70188-9 #### [facility] ([id number]) [address] [address] [place] [address] Hemoglobin (Bld) [Mass/Vol] 15.0 g/dL Normal 11.7-15.5 [facility] Comment on above: Performed By: #### 2 4331-1, THYR, CBCA, CMP, 05906-7 #### [facility] ([id number]) [address] [address] Lymphocytes (Bld) [#/Vol] 0.9 10*3/uL Low 1.0-3.5 [facility] Comment on above: Performed By: #### 2 4331-1, THYR, CBCA, CMP, 98344-8 #### [facility] ([id number]) [address] [address] [place] [address] Lymphocytes/100 WBC (Bld) 23.6 % Normal [facility] Comment on above: Performed By: #### 2 4331-1, THYR, CBCA, CMP, 04532-8 #### [facility] ([id number]) [address] [address] [place] [address] MCH (RBC) [Entitic mass] 32.2 pg Normal 27-34 [facility] Comment on above: Performed By: #### 2 4331-1, THYR, CBCA, CMP, 29826-5 #### [facility] ([id number]) [address] [address] [place] [address] MCHC (RBC) [Mass/Vol] 35.0 g/dL Normal 32-36 [facility] Comment on above: Performed By: #### 2 4331-1, THYR, CBCA, CMP, 93497-9 #### [facility] ([id number]) [address] [place] [address] MCV (RBC) [Entitic vol] 92 fL Normal 80-100 [facility] Comment on above: Performed By: #### 2 4331-1, THYR, CBCA, CMP, 02356-5 #### [facility] ([id number]) [address] [place] [address] Monocytes (Bld) [#/Vol] 0.3 10*3/uL Normal 0-0.9 [facility] Comment on above: Performed By: #### 2 4331-1, THYR, CBCA, CMP, 91925-8 #### [facility] ([id number]) [address] [place] [address] Monocytes/100 WBC (Bld) 7.0 % Normal [facility] Comment on above: Performed By: #### 2 4331-1, THYR, CBCA, CMP, 01165-4 #### [facility] ([id number]) [address], [address] [place] [address] Neutrophils/100 WBC (Bld) 67.7 % Normal [facility] Comment on above: Performed By: #### 2 4331-1, THYR, CBCA, CMP, 72821-1 #### [facility] ([id number]) [address], [address] [place] [address] Platelet mean volume (Bld) [Entitic vol] 8.7 fL Normal 7-12 [facility] Comment on above: Performed By: #### 2 4331-1, THYR, CBCA, CMP, 78262-7 #### [facility] ([id number]) [address] [place] [address] Platelets (Bld) [#/Vol] 186 10*3/uL Normal 150-450 [facility] Comment on above: Performed By: #### 2 4331-1, THYR, CBCA, CMP, 48778-9 #### [facility] ([id number]) [address] [place] [address] RBC COUNT 4.67 X10E12/L Normal 3.80-5.20 [facility] Comment on above: Performed By: #### 2 4331-1, THYR, CBCA, CMP, 50589-5 #### [facility] ([id number]) [address] [place] [address] WBC (Bld) [#/Vol] 3.7 10*3/uL Low 4.0-11.0 [facility] Comment on above: Performed By: #### 2 4331-1, THYR, CBCA, CMP, 26409-2 #### [facility] ([id number]) [address] [place] [address] COMPREHENSIVE METABOLIC PANE Mika 11-30-2023 Albumin [Mass/Vol] 4.4 g/dL Normal 3.2-5.3 [facility] Comment on above: Performed By: #### 2 4331-1, THYR, CBCA, CMP, 81319-9 #### [facility] ([id number]) [address] [place] [address] ALP [Catalytic activity/Vol] 65 U/L Normal 39-130 [facility] Comment on above: Performed By: #### 2 4331-1, THYR, CBCA, CMP, 91256-0 #### [facility] ([id number]) [address] [place] [address] ALT [Catalytic activity/Vol] 59 U/L High 0-31 [facility] Comment on above: Performed By: #### 2 4331-1, THYR, CBCA, CMP, 50158-0 #### [facility] ([id number]) [address], [address] [place] [address] Anion gap [Moles/Vol] 6 mmol/L Normal 5-15 [facility] Comment on above: Performed By: #### 2 4331-1, THYR, CBCA, CMP, 30800-9 #### [facility] ([id number]) [address] [place] [address] AST [Catalytic activity/Vol] 31 U/L Normal 0-41 [facility] Comment on above: Performed By: #### 2 4331-1, THYR, CBCA, CMP, 20652-2 #### [facility] ([id number]) [address] [place] [address] Bilirubin [Mass/Vol] 0.8 mg/dL Normal 0.3-1.2 [facility] Comment on above: Performed By: #### 2 4331-1, THYR, CBCA, CMP, 52361-4 #### [facility] ([id number]) [address] [place] [address] Calcium [Mass/Vol] 9.1 mg/dL Normal 8.5-10.5 [facility] Comment on above: Performed By: #### 2 4331-1, THYR, CBCA, CMP, 97999-0 #### [facility] ([id number]) [address] [place] [address] Chloride [Moles/Vol] 103 mmol/L Normal 98-109 [facility] Comment on above: Performed By: #### 2 4331-1, THYR, CBCA, CMP, 25262-2 #### [facility] ([id number]) [address] [place] [address] CO2 [Moles/Vol] 28 mmol/L Normal 22-32 [facility] Comment on above: Performed By: #### 2 4331-1, THYR, CBCA, CMP, 05325-9 #### [facility] ([id number]) [address] [address] [place] [address] Creatinine [Mass/Vol] 0.86 mg/dL Normal 0.40-1.00 [facility] Comment on above: Result Comment: METH OD TRACEABLE TO IDMS STANDARD Performed By: #### 2 4331-1, THYR, CBCA, CMP, 04485-4 #### [facility] ([id number]) [address] [address] [place] [address] GFR/1.73 sq M.predicted among non-blacks MDRD (S/P/Bld) [Vol rate/Area] 89 mL/min/{1.73_m2} Normal >59 [facility] Comment on above: Result Comment: Reported eGFR is based on the CKD-EPI 2020 equation that does not use a race coefficient. Performed By: #### 2 4331-1, THYR, CBCA, CMP, 31805-4 #### [facility] ([id number]) [address] [address] [place] [address] Glucose [Mass/Vol] 97 mg/dL Normal 65-99 [facility] Comment on above: Performed By: #### 2 4331-1, THYR, CBCA, CMP, 68890-2 #### [facility] ([id number]) [address] [address] [place] [address] Potassium [Moles/Vol] 3.8 mmol/L Normal 3.5-5.0 [facility] Comment on above: Performed By: #### 2 4331-1, THYR, CBCA, CMP, 72848-3 #### [facility] ([id number]) [address] [address] [place] [address] Protein [Mass/Vol] 6.6 g/dL Normal 6.0-8.0 [facility] Comment on above: Performed By: #### 2 4331-1, THYR, CBCA, CMP, 22528-0 #### [facility] ([id number]) [address] [address] [place] [address] Sodium [Moles/Vol] 137 mmol/L Normal 134-146 [facility] Comment on above: Performed By: #### 2 4331-1, THYR, CBCA, CMP, 53499-4 #### [facility] ([id number]) [address] [address] Urea nitrogen [Mass/Vol] 9 mg/dL Normal 5-23 [facility] Comment on above: Performed By: #### 2 4331-1, THYR, CBCA, CMP, 95656-5 #### [facility] ([id number]) [address] [address] Lipid 1996 panelon 4 Cholesterol [Mass/Vol] 236 mg/dL High 150-200 [facility] Comment on above: Performed By: #### 2 4331-1, THYR, CBCA, CMP, 73044-4 #### [facility] ([id number]) [address] [address] Cholesterol in HDL [Mass/Vol] 48 mg/dL Normal >39 [facility] Comment on above: Result Comment: HDL <40 mg/dL - High Risk HDL > or = 40mg/dL- Desirable HDL >60 mg/dL - Negative Risk Performed By: #### 2 4331-1, THYR, CBCA, CMP, 32544-9 #### [facility] ([id number]) [address] [place] [address] Cholesterol in LDL [Mass/Vol] 124 mg/dL Normal <130 [facility] Comment on above: Result Comment: LDL <100 mg/dL - Desirable LDL >160 mg/dL - High Risk Performed By: #### 2 4331-1, THYR, CBCA, CMP, 08890-6 #### [facility] ([id number]) [address] [place] [address] Cholesterol in VLDL [Mass/Vol] 64 mg/dL High 0-30 [facility] Comment on above: Performed By: #### 2 4331-1, THYR, CBCA, CMP, 20145-2 #### [facility] ([id number]) [address] [address] [place] [address] CHOLESTEROL:HDL 4.9 Normal 1.0-5.0 [facility] Comment on above: Performed By: #### 2 4331-1, THYR, CBCA, CMP, 51949-5 #### [facility] ([id number]) [address] [place] [address] Triglyceride [Mass/Vol] 318 mg/dL High 27-150 [facility] Comment on above: Performed By: #### 2 4331-1, THYR, CBCA, CMP, 68063-2 #### [facility] ([id number]) [address] [place] [address] THYROID PROFILEon 11-30-2023 Free T4 [Mass/Vol] 0.62 ng/dL Normal 0.61-1.60 [facility] Comment on above: Performed By: #### 2 4331-1, THYR, CBCA, CMP, 35076-5 #### [facility] ([id number]) [address] [place] [address] TSH 0.97 uIU/mL Normal 0.49-4.67 [facility] Comment on above: Performed By: #### 2 4331-1, THYR, CBCA, CMP, 35282-4 #### [facility] ([id number]) [address] [place] [address] Vitamin D+Metabolites [Mass/ Vol]on 11-30-2023 VITAMIN D 25 HYD TOT 25.5 ng/mL Low 30-100 [facility] Comment on above: Result Comment: Vitamin D status 25 [place] Vitamin D Deficiency <20 ng/mL Insufficiency 20-29 ng/mL Sufficiency 30-100 ng/mL Toxicity >100 ng/mL NOTE: A pediatric reference range has not been established by the bilingual customer service of this kit. The [place] [employer] recommends a Vitamin D level of = or >20ng/mL in infants and children. Performed By: #### 2 4331-1, THYR, CBCA, CMP, 23717-5 #### [facility] ([id number]) [address] [place] [address] Covid-19 PCR (CVDTB)on 09-11 SARS-CoV-2 (COVID-19) RNA MEGAN+probe Ql (Unsp spec) Not detected Normal NOT DETECTED [facility] Comment on above: Result Comment: This test is not yet approved or cleared by the [place] FDA. When there are no FDA-approved or cleared tests available, and other criteria are met, FDA can make tests available under an emergency access mechanism called an Emergency Use Authorization (EUA). The EUA for this test is supported by the [place] of Health and Human Service's (HHS's) declaration [...] SARS-CoV-2. Performed By: #### C VDTB #### [facility] [address] [place], [place] [id number] Dr. Adis Warren Covid-19 PCR ([facility])on 09-11 SARS-CoV-2 (COVID-19) RNA MEGAN+probe Ql (Unsp spec) Not detected Normal NOT DETECTED [facility] Comment on above: Result Comment: This test is not yet approved or cleared by the [place] FDA. When there are no FDA-approved or cleared tests available, and other criteria are met, FDA can make tests available under an emergency access mechanism called an Emergency Use Authorization (EUA). The EUA for this test is supported by the [place] of Health and Human Service's (HHS's) declaration [...] SARS-CoV-2. Performed By: #### C VDTB #### [facility] [address] [place] [address] Adis Warren OBSOLETEon 07-04-2021 OBSOLETE Refill (NEUWIL) NERYMARITA B ([id number]) 1985 F Date Time Provider Department 07/04/21 [...] Encounter Status:Closed by RAYMOND MEDINA on 07/05/21 [facility] OBSOLETEon 05-27-2021 OBSOLETE Refill (NFWH) MARITA MESSINA ([id number]) 1985 F Date Time Provider Department 05/27/21 [...] Encounter Status:Closed by RAYMOND MEDINA on 05/30/21 [facility] OBSOLETEon 04-26-2021 OBSOLETE Refill (NFWH) MARITA MESSINA ([id number]) 1985 F Date Time Provider Department 04/26/21 [...] Status:Closed by RAYMOND MEDINA on 04/27/21 Normal [facility] Coding Summary.on 05-31-2019 Coding Summary. CODING DATE: 05/31/2019 FINAL [facility] STATUS: Home (Routine DC) PAYOR: Medicaid EA DESCRIPTION 0390 LEVEL I PATHOLOGY ADMIT DX: REASON FOR VISIT DX: R87.610 Atypical squamous cells of undetermined significance on cytologic smear of cervix (ASC-US) FINAL DX: PRINCIPAL: N87.9 Dysplasia of cervix uteri, unspecified SECONDARY: R87.810 Cervical high risk human papillomavirus (HPV) DNA test positive [facility] PROC EA STAT DESCRIPTION DOCTOR NAME DATE NOTE: The code number assigned matches the documented diagnosis and / or procedure in the patient's chart. However, the narrative phrase printed from the coding software may appear abbreviated, or result in slightly different terminology. Coded By: Prachi Andres Date Saved: 05/31/2019 06:25 am Normal [facility] Gynecology Office/Clinic Not freddie 05-20-2019 Gynecology [...] and next steps Ordered: Colposcopy with biopsy 42502 Pathology Tissue Exam Pathology Tissue Exam Follow-up With When Contact Information She BINGHAM CNP In 1 year [email or web address] Additional Instructions: She BINGHAM CNP Only if needed [email or web address] Additional Instructions: Problem List/Past Medical History Ongoing [...] 2: Father and Grandparent. Hyperlipidemia: Father. Normal [facility] Comment on above: Result Comment: Elec tronically Signed By: She BINGHAM CNP\Date and Time Signed: 05/20/19 14:48 EDT Coding Summary.on 05-06-2019 Coding Summary. CODING DATE: 05/06/2019 FINAL [facility] STATUS: Home (Routine DC) PAYOR: Medicaid [...] CphT Date Saved: 05/06/2019 09:14 am Normal [facility] PAP 05-05-2019 Cytology report Cyto stain Doc (Cvx/Vag) Note Abnormal [facility] Comment on above: Result Comment: TEST S RESULT FLAG UNITS REF RANGE LAB Clinician Provided Cytology Information Source.............Cervix Other..............IUD No. of containers..01 ThinPrep Vial DIAGNOSIS: [A] 01 EPITHELIAL CELL ABNORMALITY. ATYPICAL SQUAMOUS CELLS OF UNDETERMINED SIGNIFICANCE (ASC-US). 01 Satisfactory for evaluation. Endocervical and/or squamous metaplastic cells (endocervical component) are present. 01 Maricarmen Stovall, Regional Flatbed Truck Driver (ASCP) 01 Jennifer Lopes MD, Pathologist 01 [...] Low,>-Panic High,A-Abnormal,AA-Critical Abnormal Performed at: [address] [facility] [address] Soraya Cabrera MD, Performed By: #### 1 [id number] #### [facility] [address] [place] [address] HPV 16+18+31+33+35+39+45 +51+52+56+58+59+68 DNA Probe+sig amp Ql (Cvx) Positive Abnormal Negative [facility] Comment on above: Result Comment: This high-risk HPV test detects thirteen high-risk types (16/18/31/33/35/39/45/51/52/56/58/59/68) without differentiation. Performed at: [facility] [id number] MD Rick Lira Performed at: =[facility] [id number] MD Rick Lira Performed By: #### 1 [id number], [id number] #### [facility] [address] [place] [address] Physician Jennifer Crabtree 019 Pathologist review Noe (Unsp spec) [Interp] Note [facility] Comment on above: Result Comment: TEST S RESULT FLAG UNITS REF RANGE LAB Physician Read Pap Note 01 Performed FLAG LEGEND: L-Low Normal,H-High Normal,LL-Alert Low,HH-Alert High <-Panic Low,>-Panic High,A-Abnormal,AA-Critical Abnormal Performed at: 01 [facility] [address] [address] Soraya Cabrera MD, Performed at: [facility] [address] [id number] MD Rick Lira Performed By: #### 1 [id number], [id number] #### [facility] [address] [place] [address] Gynecology Office/Clinic Not freddie 04-29-2019 Gynecology Office/Clinic [...] results Ordered: Office Visit Level 3 Est 15969 PAP [id number] w/HPV HR US Pelvis Non-OB Complete 2. 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 Hyperlipidemia: Father. Normal [facility] Comment on above: Result Comment: Elec tronically Signed By: She BINGHAM CNP\Date and Time Signed: 04/29/19 11:36 EDT PAP [id number] 04-29-2019 Gynecological Body Site CERVIX Normal [facility] Comment on above: Performed By: #### 1 [id number] #### [facility] [address] [place] [address] Other Patient Information IUD Normal [facility] Comment on above: Performed By: #### 1 [id number], [id number] #### [facility] [address] [place] [address] Vital Signs Date Time Vital Sign Value Performing Clinician Facility 02-06-2025 11:13-0400 Body height 157.5 cm Dorcas Peralta STRAPPER Work Phone: [facility] 02-06-2025 11:13-0400 Body mass index (BMI) [Ratio] 37.09 kg/m2 Dorcas Peralta STRAPPER Work Phone: [facility] 02-06-2025 11:13-0400 Body weight 91.99 kg Dorcas Peralta STRAPPER Work Phone: [facility] 02-06-2025 11:13-0400 Diastolic blood pressure 70 mm[Hg] Dorcas Peralta STRAPPER Work Phone: [facility] 02-06-2025 11:13-0400 Heart rate 83 /min Dorcas Peralta STRAPPER Work Phone: [facility] 02-06-2025 11:13-0400 SaO2% (BldA) [Mass fraction] 97 % Dorcas Peralta STRAPPER Work Phone: [facility] 02-06-2025 11:13-0400 Systolic blood pressure 122 mm[Hg] Dorcas Peralta STRAPPER Work Phone: [facility] 10-27-2024 16:10-0500 Body height 157.5 cm Sherie Maria DPM Work Phone: [facility] 10-27-2024 16:10-0500 Body mass index (BMI) [Ratio] 40.42 kg/m2 Sherie Maria DPM Work Phone: [facility] 10-27-2024 16:10-0500 Body weight 100.25 kg Sherie Levine DPM Work Phone: [facility] 09-15-2024 11:03-0500 Body height 157.5 cm Dorcas Peralta STRAPPER Work Phone: [facility] 09-15-2024 11:03-0500 Body mass index (BMI) [Ratio] 40.57 kg/m2 Dorcas Peralta STRAPPER Work Phone: [facility] 09-15-2024 11:03-0500 Body weight 100.61 kg Dorcas Peralta STRAPPER Work Phone: [facility] 09-15-2024 11:03-0500 Diastolic blood pressure 80 mm[Hg] Dorcas Peralta STRAPPER Work Phone: [facility] 09-15-2024 11:03-0500 Heart rate 104 /min Dorcas Peralta STRAPPER Work Phone: [facility] 09-15-2024 11:03-0500 SaO2% (BldA) [Mass fraction] 97 % Dorcas Peralta STRAPPER Work Phone: [facility] 09-15-2024 11:03-0500 Systolic blood pressure 116 mm[Hg] Dorcas Peralta STRAPPER Work Phone: [facility] 08-04-2024 15:35-0500 Body height 157.5 cm Sherie Crow DPM Work Phone: [facility] 08-04-2024 15:35-0500 Body mass index (BMI) [Ratio] 40.6 kg/m2 Sherie Crow DPM Work Phone: [facility] 08-04-2024 15:35-0500 Body weight 100.7 kg Sherie Levine DPM Work Phone: [facility] 06-16-2024 10:54-0400 Body height 157.5 cm Dorcas Peralta STRAPPER Work Phone: [facility] 06-16-2024 10:54-0400 Body mass index (BMI) [Ratio] 39.36 kg/m2 Dorcas Peralta STRAPPER Work Phone: [facility] 06-16-2024 10:54-0400 Body weight 97.61 kg Dorcas Peralta STRAPPER Work Phone: [facility] 06-16-2024 10:54-0400 Diastolic blood pressure 76 mm[Hg] Dorcas Peralta STRAPPER Work Phone: [facility] 06-16-2024 10:54-0400 Heart rate 98 /min Dorcas Peralta STRAPPER Work Phone: [facility] 06-16-2024 10:54-0400 SaO2% (BldA) [Mass fraction] 97 % Dorcas Peralta STRAPPER Work Phone: [facility] 06-16-2024 10:54-0400 Systolic blood pressure 120 mm[Hg] Dorcas Peralta STRAPPER Work Phone: [facility] 05-23-2024 10:24-0400 Body mass index (BMI) [Ratio] 38.99 kg/m2 Dorcas Peralta STRAPPER Work Phone: [facility] 05-23-2024 10:24-0400 Body weight 96.71 kg Dorcas Peralta STRAPPER Work Phone: [facility] 05-23-2024 10:24-0400 Diastolic blood pressure 72 mm[Hg] Dorcas Peralta STRAPPER Work Phone: [facility] 05-23-2024 10:24-0400 Heart rate 93 /min Dorcas Peralta STRAPPER Work Phone: [facility] 05-23-2024 10:24-0400 SaO2% (BldA) [Mass fraction] 99 % Dorcas Peralta STRAPPER Work Phone: [facility] 05-23-2024 10:24-0400 Systolic blood pressure 122 mm[Hg] Dorcas Peralta STRAPPER Work Phone: [facility] 05-14-2024 11:30-0400 Body height 157.5 cm Dorcas Peralta STRAPPER Work Phone: [facility] 05-14-2024 11:30-0400 Body mass index (BMI) [Ratio] 39.03 kg/m2 Dorcas Peralta STRAPPER Work Phone: [facility] 05-14-2024 11:30-0400 Body weight 96.8 kg Dorcas Peralta STRAPPER Work Phone: [facility] 05-14-2024 11:30-0400 Diastolic blood pressure 68 mm[Hg] Dorcas Peralta STRAPPER Work Phone: [facility] 05-14-2024 11:30-0400 Heart rate 109 /min Dorcas Peralta STRAPPER Work Phone: [facility] 05-14-2024 11:30-0400 SaO2% (BldA) [Mass fraction] 98 % Dorcas Peralta STRAPPER Work Phone: [facility] 05-14-2024 11:30-0400 Systolic blood pressure 110 mm[Hg] Dorcas Peralta STRAPPER Work Phone: [facility] 05-05-2024 10:18-0400 Body height 157.5 cm Jurgen English MD Work Phone: [facility] 05-05-2024 10:18-0400 Body mass index (BMI) [Ratio] 38.67 kg/m2 Jurgen English MD Work Phone: [facility] 05-05-2024 10:18-0400 Body weight 95.89 kg Jurgen English MD Work Phone: [facility] 05-05-2024 10:18-0400 Diastolic blood pressure 78 mm[Hg] Jurgen English MD Work Phone: [facility] 05-05-2024 10:18-0400 Heart rate 99 /min Jurgen English MD Work Phone: [facility] 05-05-2024 10:18-0400 SaO2% (BldA) [Mass fraction] 99 % Jurgen English MD Work Phone: [facility] 05-05-2024 10:18-0400 Systolic blood pressure 118 mm[Hg] Jurgen English MD Work Phone: [facility] 11-10-2019 14:27-0500 BMI (Body Mass Index) 35.43 kg/m2 [employer] [facility], [facility] 11-10-2019 14:27-0500 Body Temperature 97.59 [degF] Bradley Simmons [facility] H, MD 11-10-2019 14:27-0500 Body weight 90.72 kg Bradley Simmons [facility] , [place] 11-10-2019 14:27-0500 BP Diastolic 65 mm[Hg] Bradley Simmons [facility] , [place] 11-10-2019 14:27-0500 BP Systolic 102 mm[Hg] Bradley Simmons [facility] , [place] 11-10-2019 14:27-0500 Height 160 cm Bradley Simmons [facility] , [place] 11-10-2019 14:27-0500 Pulse Oximetry 99 % Bradley Simmons [facility] , [place] Encounters Encounter Date Encounter Type Care Provider Facility Start: 08-19-2025 ambulatory Dorcas quintana PA-C Facility:[facility] Start: 03-10-2025 End: 03-10-2025 Refill Dorcas Peralta STRAPPER Work Phone: [facility] Comment on above: Gastroesophageal ref lux disease without esophagitis Start: 02-06-2025 End: 02-06-2025 Bamboo flowsheet Dorcas Peralta STRAPPER Work Phone: [facility] Start: 02-06-2025 End: 02-06-2025 Bamboo flowsheet Dorcas Peralta STRAPPER Work Phone: [facility] Start: 02-06-2025 End: 02-06-2025 ambulatory DORCAS PERALTA Not Available Start: 02-06-2025 End: 02-06-2025 Office outpatient visit 25 minutes Dorcas Peralta STRAPPER Work Phone: [facility] Comment on above: Obstructive sleep ap deann syndrome (Primary Dx); Obesity, Class II, BMI 35-39.9; Chronic bilateral low back pain without sciatica Start: 02-03-2025 ambulatory Caitlyn Sparrow MD Facility:[facility] Start: 01-26-2025 End: 01-26-2025 ambulatory SHERIE MARIA Not Available Start: 01-26-2025 End: 01-26-2025 Bamboo flowsheet Sherie Maria DPM Work Phone: [facility] Start: 01-26-2025 End: 01-26-2025 Bamboo flowsheet Sherie Maria DPM Work Phone: [facility] Start: 12-22-2024 End: 12-22-2024 ambulatory Caitlyn Sparrow MD Facility:[facility] Start: 12-08-2024 End: 12-08-2024 ambulatory Sana Radford MD Facility:[facility] Start: 11-24-2024 End: 11-24-2024 Orders Only Celeste Dhaliwal CARPENTER MINE-CONTRACT CLERK Work Phone: [facility] Start: 11-03-2024 End: 11-03-2024 Refill Nehal Alvarado PRINTER MAINTAINER Work Phone: [facility] Comment on above: Obstructive [...] 10-13-2024 End: 10-13-2024 ambulatory Sana Radford MD Facility:[facility] Start: 09-22-2024 End: 09-22-2024 Orders Only Dorcas Peralta STRAPPER Work Phone: [facility] Comment on above: Obstructive sleep ap deann syndrome Start: 09-20-2024 End: 09-22-2024 Refill Jo-Ann Gee MD Work Phone: [facility] Comment on above: Tremor (Primary Dx) Start: 09-15-2024 End: 09-15-2024 Bamboo flowsheet Dorcas Peralta STRAPPER Work Phone: [facility] Start: 09-15-2024 End: 09-15-2024 Bamboo flowsheet Dorcas Peralta STRAPPER Work Phone: [facility] Start: 09-15-2024 End: 09-15-2024 ambulatory [facility] Start: 09-15-2024 End: 09-15-2024 Office outpatient visit 25 minutes Dorcas Peralta STRAPPER Work Phone: [facility] Comment on above: Morbid (severe) obes ity due to excess calories (CMS/HCC) (Primary Dx); BOGDAN (obstructive sleep apnea); Hepatic steatosis; Mixed hyperlipidemia (CMS/HCC); Elevated liver enzymes Start: 09-01-2024 End: 09-01-2024 ambulatory Sana Radford MD Facility: [facility] Start: 08-13-2024 End: 08-13-2024 ambulatory Dorcas Thomas PA-C Facility:[facility] Start: 08-04-2024 End: 08-04-2024 Office [...] [facility] Start: 07-04-2024 End: 07-04-2024 ambulatory [facility] Start: 06-16-2024 End: 06-16-2024 Bamboo flowsheet Dorcas Peralta STRAPPER Work Phone: [facility] Start: 06-16-2024 End: 06-16-2024 Bamboo flowsheet Dorcas Peralta STRAPPER Work Phone: [facility] Start: 06-16-2024 End: 06-16-2024 Office outpatient visit 25 minutes Dorcas Peralta NP Work Phone: [facility] Comment on above: Morbid (severe) obes ity due to excess calories (CMS/HCC) (Primary Dx); Bipolar disorder in full remission, most recent episode unspecified type (CMS/HCC); Mixed dyslipidemia (CMS/HCC) Start: 06-16-2024 End: 06-16-2024 ambulatory DORCAS PERALTA Not Available Start: 06-09-2024 End: 06-10-2024 Telephone encounter Marita Richardson RN [facility] Comment on above: Cholesterol labs Start: 05-26-2024 End: 05-29-2024 Refill Nehal Alvarado LPN Work Phone: [facility] Comment on above: Gastroesophageal ref lux disease without esophagitis Rash (Primary Dx); Obesity, Class II, BMI 35-39.9 Start: 05-23-2024 End: 05-23-2024 Office outpatient visit 25 minutes Dorcas Cummingsgwen STRAPPER Work Phone: [facility] Comment on above: Folliculitis (Primar y Dx); Obesity, Class II, BMI 35-39.9; Morbid (severe) obesity due to excess calories ([facility]); Gastro-esophageal reflux disease without esophagitis; Body mass index (BMI) 39.0-39.9, adult; Bipolar disorder, unspecified ([facility]) Start: 05-23-2024 End: 05-23-2024 ambulatory DORCAS KATHRYN Not Available Start: 05-22-2024 End: 05-22-2024 Orders Only Dorcas Kathryn STRAPPER Work Phone: [facility] Comment on above: Dermatitis (Primary Dx) Start: 05-19-2024 End: 05-19-2024 [facility] Start: 05-19-2024 End: 05-19-2024 [facility] Start: 05-14-2024 End: 05-14-2024 Bamboo flowsheet Dorcas Cummingsgwen STRAPPER Work Phone: [facility] Start: 05-14-2024 End: 05-14-2024 Bamboo flowsheet Dorcas Peralta STRAPPER Work Phone: [facility] Start: 05-14-2024 End: 05-14-2024 Office outpatient new 45 minutes Dorcas Peralta STRAPPER Work Phone: [facility] Comment on above: Obesity, Class II, B TX 35-39.9 (Primary Dx); Encounter to establish care Start: 05-14-2024 End: 05-14-2024 ambulatory DORCAS KATHRYN Not Available Start: 05-05-2024 End: 05-05-2024 Office outpatient new 45 minutes Luiza Webb DO [facility] Comment on above: Hypertriglyceridemia (Primary Dx); Sinus tachycardia; Chest pain, unspecified type; Palpitation; Vapes nicotine containing substance Start: 05-05-2024 End: 05-05-2024 ambulatory JURGEN ENGLISH [facility] Start: 05-02-2024 End: 05-02-2024 Chart abstracting Scanning Provider External [facility] Start: 03-24-2024 End: 03-24-2024 ambulatory CAITLYN Griffiths [facility] Start: 03-23-2024 End: 03-24-2024 Emergency department patient visit LUIZA WEBB [facility] Start: 03-23-2024 End: 03-23-2024 Emergency department patient visit CAITLYN Griffiths [facility] Start: 03-10-2024 End: 04-10-2024 ambulatory [facility] Start: 03-08-2024 End: 03-08-2024 Emergency department patient visit CAITLYN Griffiths [facility] Start: 03-03-2024 End: 03-03-2024 ambulatory Sana Radford MD Facility:[facility] Start: 02-29-2024 End: 02-29-2024 ambulatory CAITLYN Griffiths [facility] Start: 02-18-2024 End: 02-18-2024 ambulatory Sana Radford MD Facility:[facility] Start: 02-11-2024 End: 03-10-2024 ambulatory [facility] Start: 01-23-2024 End: 02-09-2024 ambulatory [facility] Start: 11-30-2023 End: 11-30-2023 ambulatory [facility] Start: 11-30-2023 Encounter for genera l adult medical examination without abnormal findings [facility] Start: 08-09-2023 Refill Raymond Pierre ph, [...] 02-23-2022 End: 02-23-2022 ambulatory Karel Elaine Other [email or web address] Other Start: 02-23-2022 Telephone encounter Karel Elaine [facility] Start: 01-09-2022 Refill Raymond Pierre ph, MD Work Phone: Neurology Comment on above: Refill Request Start: 01-04-2022 End: 01-04-2022 ambulatory Karel Elaine Other [email or web address] Other Start: 01-04-2022 Telephone encounter Karel Elaine [facility] Start: 12-12-2021 End: 12-12-2021 ambulatory Karel Elaine Other [email or web address] Other Start: 12-12-2021 Telephone encounter Karel Elaine [facility] Start: 11-30-2021 End: 12-01-[address] MUNIRA DEAL Facility:[facility] Start: 11-16-2021 End: 11-16-2021 ambulatory Karel Elaine Other [email or web address] Other Start: 11-16-2021 Telephone encounter Karel Elaine [facility] Start: 10-11-2021 Encounter for prepro cedural laboratory examination DR MUNIRA DEAL [facility] Start: 10-11-2021 End: 10-11-2021 ambulatory [...] 08-03-2021 End: 08-03-2021 ambulatory Karel Elaine Other [email or web address] Other Start: 08-03-2021 Telephone encounter Karel Elaine [facility] Start: 07-28-2021 End: 07-28-2021 ambulatory Karel Elaine Other [email or web address] Other Start: 07-28-2021 Telephone encounter Karel Elaine [facility] Start: 11-10-2019 End: 11-11-2019 Patient encounter procedure BRADLYE SIMMONS [facility] Start: 11-10-2019 End: 11-10-2019 Subsequent hospital visit by physician Bradley Simmons Work Phone: [facility] Comment on above: Arrived Procedures Date Procedure Procedure Detail Performing Clinician Start: 10-03-2021 Adult depression screening assessment Raymond Medina MD Work Phone: Plan of Treatment Date Care Activity Detail Author Start: 2036 Shingles Vaccine (1 of 2) Shingles Vaccine (1 of 2) [place], [place] Start: 06-10-2025 Influenza vaccination [facility] Comment on above: Postponed from 05/11/2024 (Patient Refus ed) Postponed from 05/11 (Patient Refused) Start: 05-19-2025 Adult BMI Screening Adult BMI Screening [facility] Start: 05-19-2025 Tobacco Screening Tobacco Screening [facility] Start: 05-11-2025 Influenza vaccination Influenza Vaccine (#1) [facility] Start: 05-08-2025 End: 05-08-2025 Patient encounter procedure 05/08/2025 11:00 AM EDT Office Visit [facility] [address] [place] [phone] Dorcas Peralta NP [address] [place] [address] [facility] Start: 05-05-2025 Adult BMI Screening Adult BMI Screening [facility] Start: 05-05-2025 Tobacco Screening Tobacco Screening [facility] Start: 04-28-2025 End: 04-28-2025 Patient encounter procedure 04/28/2025 4:00 PM EDT Office Visit [facility] [address] [place] [phone] Sherie Maria DPM [address] [place] [address] [facility] Start: 03-23-2025 Adult BMI Screening Adult BMI Screening [facility] Start: 03-23-2025 Tobacco Screening Tobacco Screening [facility] Start: 01-26-2025 End: 01-26-2025 Patient encounter procedure [facility] Comment on above: Arrived Start: 12-15-2024 End: 12-15-2024 Patient encounter procedure 12/15/2024 11:00 AM EDT Office Visit [facility] [address] [place] [phone] Dorcas Peralta NP [address] [place] [address] [facility] Start: 11-08-2024 Medicare Annual Wellness (AWV) Medicare Annual Wellness (AWV) [facility] Start: 10-27-2024 End: 10-27-2024 [facility] Comment on above: Arrived Start: 09-15-2024 End: 09-15-2024 Patient encounter procedure 09/15/2024 11:00 AM EST Office Visit [facility] [address] [place] [id number] Dorcas Peralta NP [address] [place] [address] [facility] Start: 09-08-2024 End: 06-09-2025 Alanine aminotransferase [Enzymatic activity/volume] in Serum or Plasma ALT Lab Routine Medication monitoring encounter Other hyperlipidemia Elevated triglycerides with high cholesterol Elevated LDL cholesterol level Severe obesity (BMI 35.0-39.9) with comorbidity (CMS-HCC) Other fatigue Expected: 09/08/2024 (Approximate), Expires: 06/09/2025 [employer] Comment on above: Expected: 09/08/2024 (Approximate), Expi res: 06/09/2025 Start: 09-08-2024 End: 06-09-2025 Aspartate aminotransferase [Enzymatic activity/volume] in Serum or Plasma AST Lab Routine Medication monitoring encounter Other hyperlipidemia Elevated triglycerides with high cholesterol Elevated LDL cholesterol level Severe obesity (BMI 35.0-39.9) with comorbidity (CMS-HCC) Other fatigue Expected: 09/08/2024 (Approximate), Expires: 06/09/2025 [employer] Comment on above: Expected: 09/08/2024 (Approximate), Expi res: 06/09/2025 Start: 09-08-2024 End: 06-09-2025 Cholesterol in LDL [Mass/volume] in Serum or Plasma LDL cholesterol, direct Lab Routine Medication monitoring encounter Other hyperlipidemia Elevated triglycerides with high cholesterol Elevated LDL cholesterol level Severe obesity (BMI 35.0-39.9) with comorbidity (CMS-HCC) Other fatigue Expected: 09/08/2024 (Approximate), Expires: 06/09/2025 [employer] Work Phone: Comment on above: Expected: 09/08/2024 (Approximate), Expi res: 06/09/2025 Start: 09-08-2024 End: 06-09-2025 Triglyceride [Mass/volume] in Serum or Plasma Triglycerides Lab Routine Medication monitoring encounter Other hyperlipidemia Elevated triglycerides with high cholesterol Elevated LDL cholesterol level Severe obesity (BMI 35.0-39.9) with comorbidity (CMS-HCC) Other fatigue Expected: 09/08/2024 (Approximate), Expires: 06/09/2025 [facility] Comment on above: Expected: 09/08/2024 (Approximate), Expi res: 06/09/2025 Start: 08-04-2024 End: 08-04-2024 Patient encounter procedure 08/04/2024 3:30 PM EST Office Visit [facility] [address] [place] [id number] Sherie Maria, DPM [address] [place] [address] Arrived [facility] Comment on above: Arrived Start: 06-16-2024 End: 06-16-2024 Patient encounter procedure [facility] Comment on above: Arrived Start: 05-14-2024 End: 05-14-2024 Patient encounter procedure 05/14/2024 11:30 AM EDT Office Visit [facility] [address] [place] [phone] Dorcas Peralta NP [address] [place] [address] Arrived [facility] Comment on above: Arrived Start: 05-11-2024 COVID-19 Vaccine ( season) COVID-19 Vaccine ( season) [facility] Start: 05-11-2024 COVID-19 Vaccine ( season) COVID-19 Vaccine ( season) [facility] Start: 05-11-2024 Influenza vaccination [facility] Start: 05-05-2024 End: 05-05-2025 Echo complete W/O contrast Echo complete W/O contrast Echocardiography Routine Chest pain, unspecified type Expected: 05/05/2024, Expires: 05/05/2025 [facility] Comment on above: Expected: 05/05/2024, Expires: Start: 05-05-2024 End: 05-05-2025 Exercise stress test study Stress test (exercise only) [facility] Routine Chest pain, unspecified type Expected: 05/05/2024, Expires: 05/05/2025 [facility] Comment on above: Expected: 05/05/2024, Expires: Start: 05-05-2024 End: 05-05-2024 Patient encounter procedure 05/05/2024 10:30 AM EDT Office [facility] [address] [place] [phone] Luiza Webb, [address] [place] [address] Jurgen English MD [address] [place], [place] [id number] [facility] Start: 05-11-2023 COVID-19 Vaccine ( season) COVID-19 Vaccine ( season) [facility] Start: 05-11-2023 Influenza vaccination [facility] Start: 10-03-2022 Adult depression screening assessment DEPRESSION SCREENING [facility] Start: 09-10-2022 DEPRESSION ASSESSMENT DEPRESSION ASSESSMENT [facility] Start: 05-11-2022 Influenza vaccination [facility] Start: 03-29-2020 End: 03-29-2020 Appointment 03/29/2020 Appointment General Surgery Bradley Simmons MD [address] [place] [address] [facility] Start: 05-11-2019 Influenza vaccination Flu vaccine (#1) [place], [place] Start: 2016 HPV TESTING HPV TESTING [facility] Start: 2016 Screening for malignant neoplasm of cervix [facility] Start: 2007 Cervical cancer screen Cervical cancer screen [place], [place] Start: 2007 PAP TESTING PAP TESTING [facility] Start: 2007 Screening for malignant neoplasm of cervix [facility] Start: 2005 Urine microalbumin profile DTAP,TDAP,TD (1 - Tdap) [facility] Start: 2004 Adult BMI Follow Up Plan Adult BMI Follow Up Plan [facility] Start: 2004 HEPATITIS C SCREENING HEPATITIS C SCREENING [facility] Start: 2004 Hepatitis C screening Hepatitis C Screening [facility] Start: 2004 HIV SCREENING HIV SCREENING [facility] Start: 2004 HIV screening HIV Screening [facility] Start: 2001 HIV screen HIV screen [place], [place] Start: 1998 Depression Screening Depression Screening [facility] Start: 12-25-1997 DTaP,Tdap and Td Vaccines (6 - Tdap) DTaP,Tdap and Td Vaccines (6 - Tdap) [facility] Start: 12-25-1997 Urine microalbumin profile DTaP,Tdap,Td Vaccine (6 - Tdap) [facility] Start: 1997 DTaP/Tdap/Td vaccine (1 - Tdap) DTaP/Tdap/Td vaccine (1 - Tdap) [place] Start: 1991 COVID-19 VACCINE (1) COVID-19 VACCINE (1) [facility] Start: 1987 Varicella vaccine (1 of 2 - 2-dose childhood series) Varicella vaccine (1 of 2 - 2-dose childhood series) [place] Start: 01-14-1987 COVID-19 VACCINE (#1) COVID-19 VACCINE (#1) [facility] Start: 1986 HEPATITIS B (1 of 3 - 3-dose series) HEPATITIS B (1 of 3 - 3-dose series) [facility] Start: 1986 Medicare Annual Wellness (AWV) Medicare Annual Wellness (AWV) [facility] Start: 1986 Tobacco Counseling [facility] End: 05-05-2025 Hepatic function 2000 panel - Serum or Plasma Hepatic function panel Lab Routine Hypertriglyceridemia 1 Occurrences starting 05/05/2024 until 05/05/2025 [employer] Comment on above: 1 Occurrences starting 05/05/2024 until 05/05/2025 End: 05-05-2025 Lipid 1996 panel - Serum or Plasma Lipid profile Lab Routine Hypertriglyceridemia 1 Occurrences starting 05/05/2024 until 05/05/2025 [employer]: Comment on above: 1 Occurrences starting 05/05/2024 until 05/05/2025 Immunizations Immunization Date Immunization Notes Care Provider Hansel orellana 05-15-2023 Influenza, injectabl e, Madin Renetta Canine Kidney, quadrivalent with preservative Dorcas Kampfer [employer] Work Phone: [facility] 05-15-2023 influenza virus vaccine, unspecified formulation Jurgen English MD Work Phone: [facility] 07-13-2022 Influenza, injectabl e, Madin Renetta Canine Kidney, preservative free, quadrivalent Dorcas Kampfer [employer] Work Phone: [facility] 09-13-2021 influenza, injectabl e, quadrivalent, preservative free Dorcas Kampfer STR[employer]PER Work Phone: [facility] 08-22-2019 influenza, injectabl e, quadrivalent, contains preservative Dorcas Kampfer STRAPPER Work Phone: [facility] 08-22-2019 influenza virus vaccine, unspecified formulation Raymond Medina MD Work Phone: [facility] 05-25-1998 hepatitis B vaccine, pediatric or pediatric/adolescent dosage Dorcas Kampfer [employer] Work Phone: [facility] 12-24-1997 hepatitis B vaccine, pediatric or pediatric/adolescent dosage Dorcas Kampfer STRAPPER Work Phone: [facility] 12-24-1997 TD(adult) unspecifie d formulation Dorcas Kampfer STRAPPER Work Phone: [facility] 11-19-1997 hepatitis B vaccine, pediatric or pediatric/adolescent dosage Dorcas Kampfer STR[employer]PER Work Phone: [facility] 11-19-1997 measles, mumps and rubella virus vaccine Dorcas Kampfer STRAPPER Work Phone: [facility] 10-26-1987 diphtheria, tetanus toxoids and pertussis vaccine Dorcas Kampfer STRAPPER Work Phone: [facility] 10-26-1987 measles, mumps and rubella virus vaccine Dorcas Kampfer STRAPPER Work Phone: [facility] 10-26-1987 trivalent poliovirus vaccine, live, oral Dorcas Kampfer STRAPPER Work Phone: [facility] 02-17-1987 diphtheria, tetanus toxoids and pertussis vaccine Dorcas Kampfer STRAPPER Work Phone: [facility] 02-17-1987 trivalent poliovirus vaccine, live, oral Dorcas Kampfer STRAPPER Work Phone: [facility] 1986 diphtheria, tetanus toxoids and pertussis vaccine Dorcas Kampfer STRAPPER Work Phone: [facility] 1986 trivalent poliovirus vaccine, live, oral Dorcas Kampfer STR[employer]PER Work Phone: [facility] 1986 diphtheria, tetanus toxoids and pertussis vaccine Dorcas Kampfer STR[employer]PER Work Phone: [facility] 1986 trivalent poliovirus vaccine, live, oral Dorcas Kampfer STR[employer]PER Work Phone: [facility] Payers Date Payer Category Payer Medicare HMO [employer] MEDICARE [id number] 2024 Medicare [id number] 2024 Private Health Insurance 2019 Medicaid MEDICAID [facility] MEDICAID [id number] 2019-Present [phone] [address] [place] [address] Medicaid [id number] 2019 Medicaid [id number] 2019 Medicare MEDICARE MEDICAR E A AND B [id number] 2019-Present [phone] [place] [address] Medicare [id number] 2019 Medicare [id number] 2014 Medicaid MEDICAID [facility] DEPT OF JOB xxxxxxxxxxxx 2014-Present [phone] [address] [place] [address] xxxxxxxxxxxx [id number] 2014 Medicare MEDICARE MEDICAR E PART A AND B xxxxxxxxxxx 2014-Present [phone] [place] [address] xxxxxxxxxxx [id number] .[id number] 1986 Unknown [id number] 2.16.840.1.016098.3.579.2 .177 1986 Unknown [id number] 2.16.840.1.437835.3.579.2 .593 1986 Unknown [id number] 2.16.840.1.633205.3.579.2 .593 1986 Unknown [id number] 2.16.840.1.428861.3.579.2 .593 1986 Unknown [id number] 2.16.840.1.238322.3.579.2 .593 1986 Unknown [id number] 2.16.840.1.193790.3.579.2 .593 1986 Unknown [id number] 2.16.840.1.368976.3.579.2 .593 1986 Unknown [id number] 2.16.840.1.588713.3.579.2 .593 1986 Unknown [id number] 2.16.840.1.636402.3.579.2 .593 1986 Unknown [id number] 2.16.840.1.579976.3.579.2 .593 1986 Unknown [id number] 2.16.840.1.475085.3.579.2 .1286 1986 Unknown [id number] 2.16.840.1.910860.3.579.2 .1286 1986 Unknown [id number] 2.16.840.1.176881.3.579.2 .128 1986 Unknown [id number] 2.16.840.1.174076.3.579.2 .128 1986 Unknown [id number] 2.16.840.1.661353.3.579.2 .1285 1986 Unknown [id number] 2.16.840.1.883169.3.579.2 .128 1986 Unknown [id number] 2.16.840.1.340392.3.579.2 .1285 1986 Unknown [id number] 2.16.840.1.310330.3.579.2 .128 1986 Unknown [id number] 2.16.840.1.988067.3.579.2 .1285 1986 Unknown [id number] 2.16.840.1.429125.3.579.2 .1285 1986 Unknown [id number] 2.16.840.1.449297.3.579.2 .1286 1986 Unknown [id number] 2.16.840.1.169700.3.579.2 .1285 1986 Unknown [id number] 2.16.840.1.203206.3.579.2 .1285 1986 Unknown [id number] 2.16.840.1.791385.3.579.2 .1285 1986 Unknown [id number] 2.16.840.1.215762.3.579.2 .1285 1986 Unknown [id number] 2.16.840.1.913947.3.579.2 .1285 1986 Unknown [id number] 2.16.840.1.110030.3.579.2 .1285 1986 Unknown [id number] 2.16.840.1.797759.3.579.2 .1285 1986 Unknown [id number] 2.16.840.1.484130.3.579.2 .1285 1986 Unknown [id number] 2.16.840.1.868462.3.579.2 .1285 1986 Unknown [id number] 2.16.840.1.152091.3.579.2 .196 1986 Unknown [id number] 2.16.840.1.012692.3.579.2 .1986 Unknown [id number] 2.16.840.1.088001.3.579.2 .196 1986 Unknown [id number] 2.16.840.1.757078.3.579.2 .196 1986 Unknown [id number] 2.16.840.1.472440.3.579.2 .196 1986 Unknown [id number] 2.16.840.1.317670.3.579.2 .196 1986 Unknown [id number] 2.16.840.1.963872.3.579.2 .196 1986 Unknown [id number] 2.16.840.1.522204.3.579.2 .196 1986 Unknown [id number] 2.16.840.1.519916.3.579.2 .196 1986 Unknown [id number] 2.16.840.1.857069.3.579.2 .1259 1986 Unknown [id number] 2.16.840.1.749609.3.579.2 .1259 1986 Unknown [id number] 2.16.840.1.701420.3.579.2 .1259 1986 Unknown [id number] 2.16.840.1.417620.3.579.2 .1259 1986 Unknown [id number] 2.16.840.1.966845.3.579.2 .9 1986 Unknown [id number] 2.16.840.1.742361.3.579.2 .1259 1986 Unknown [id number] 2.16.840.1.826846.3.579.2 .1259 1986 Unknown [id number] 2.16.840.1.624418.3.579.2 .1259 1958 Medicaid [id number] 1958 Medicare [id number] Social History Date Type Detail Facility Start: 11-25-2018 End: 11-10-2019 Tobacco smoking status NHIS Never smoker [facility] Start: 11-10-2019 End: 02-06-2025 Alcohol intake Current drinker of alcohol (finding) [place], [place] Start: 11-10-2019 Alcohol Comment social [place] Start: 1985 Sex Assigned At Not on file [place] Start: 11-25-2018 End: 05-14-2024 Tobacco use and exposure Smokeless tobacco non-user [facility] Start: 11-25-2018 History SDOH Alcohol Comment [facility] Start: 04-21-2019 End: 09-14-2024 Sex Assigned At [facility] Start: 04-21-2019 End: 09-14-2024 History of Social function [facility] Adult Depression Screening Assessment 4 [facility] Start: 05-05-2024 End: 05-14-2024 Tobacco smoking status NHIS Smokes tobacco daily [facility] Start: 05-14-2024 Tobacco Comment Vapes daily [facility] Start: 05-14-2024 Alcohol Comment caffeine intake: 12 oz coffee daily [facility] Tobacco smoking stat us NHIS Tobacco smoking consumption unknown [facility] Do you belong to any clubs or organizations such as latter-day groups, unions, fraternal or athletic groups, or [...] Tobacco: Every Day Vaping/E-cigarettes Smokeless Tobacco: Never [facility] Start: 01-20-2022 Alcohol Comment socially [facility] Start: 04-15-2015 Sex Female (finding) [facility] Medical Equipment Procedure Code Equipment Code Equipment Origin al Text Equipment Identifier Dates Mesh Pco Vntrl P tch 8.6cm Rpl [id number] - Sn/A - [id number] Start: 04-01-2019 Clinical Notes 09-15-2021 to 02-06-2025 Dorcas Peralta NP - 02/06/2025 11:00 AM Maite Maria DPM - 10/27/2024 4:15 PM ESTPatient InstructionsDorcas Cummingskiatiburcio, KOBE - 09/15/2024 11:00 AM Melodie Maria DPM [...] tablet 1 tablet, Every 6 hours PRN Paoli-3 Fatty Acids (FISH OIL OMEGA-3 PO) 2 [...] management as scheduled documented in this encounter [facility] 10-27-2024 History of Present illness Narrative Images [...] (six) hours if needed, Disp: , Rfl: Paoli-3 Fatty Acids (FISH OIL OMEGA-3 PO), Take [...] Maria DPM documented in this encounter [facility] 10-27-2024 Instructions Sherie Maria DPM - 10/27/2024 4:15 PM EST Topical care measures as noted documented in this encounter [facility] 09-15-2024 History of Present illness Narrative Images [...] have her cholesterol levels checked tomorrow. Her stationary engineer has expressed concern over her fluctuating liver enzyme levels and has ordered a retest. She has not undergone any extensive workup for her liver, only lab tests. Her liver enzyme levels have shown variability in the past. She is uncertain if she has fatty liver disease. She has been prescribed a luxembourger for a toenail fungus, which has proven [...] tablet 1 tablet, Every 6 hours PRN Paoli-3 Fatty Acids (FISH OIL OMEGA-3 PO) 2 [...] to this. documented in this encounter [facility] 08-11-2024 Note Patient Education Ma terials Name: Marita Messina Current Date: 08/11/2024 16:18:15 [place] : 1985 The following sheet(s) are the [...] breast self-exam (BSE). These experts include the [place] [employer] and the [place] [employer] Obstetricians and Gynecologists. Some experts [...] This means they are not cancer. ? [id number] [employer]. All rights reserved. This information is not [...] prevent urine, gas, or stool leakage. ? [id number] [employer]. All rights reserved. This information is not intended as a substitute fo (more content not included)... [facility] 08-04-2024 History of Present illness Narrative Subjective Patient ID: Marita Messina is a 39 y.o. female who presents for Fungus (Pt is here today for fungal nails, first noticed about 1 yr ago. Also athlete's foot BL. She has tried OTC topical fungal luxembourger, no change noted. /SS:8 ). HPI Initial [...] and not practical. Patient typically has toenail luxembourger on a constant basis. Also complains of [...] (six) hours if needed, Disp: , Rfl: Paoli-3 Fatty Acids (FISH OIL OMEGA-3 PO), Take [...] most recent hepatic enzymes elevated (May 2024). [place] agreement to proceed with topical care measures: [...] Maria DPM documented in this encounter [facility] 08-04-2024 Instructions Sherie Maria DPM - 08/04/2024 3:30 PM EST As noted documented in this encounter [facility] 06-16-2024 History of Present illness Narrative Images [...] 1 tablet, Oral, Every 6 hours PRN Paoli-3 Fatty Acids (FISH OIL OMEGA-3 PO) 2 [...] PCAB accredited and rated highly by the [employer]. Prescription sent to pharmacy Bipolar disorder in full remission, most recent episode unspecified type (CMS/HCC) -Followed by psych Mixed dyslipidemia (CMS/HCC) -Followed by cardiology documented in this encounter [facility] 06-09-2024 Miscellaneous Notes Images from the original [...] RN 05/20/2024 8:20 AM EDT MD Adam Cruz, RN Gamal Medina, can you please refer patient to lipid clinic for education and assistance managing hyperlipidemia. Thanks! Pt verbalized understanding and was agreeable to GA's orders/'s recommendations. Pt requested that script for Repatha be sent to [facility] in [place] and stated that she will get the Fish Oil OTC. Above orders routed to the CHELO to sign and send.-SRS documented [facility] 06-09[facility]2024 Telephone encounter Note Images from the original note were not included. Pt called back as she stated that received a msg from re: her recent cholesterol labs. Reviewed recent cholesterol labs and result notes/orders from GA as charted below: Jennifer Zamora PharmD 06/09/2024 2:05 PM EDT Back to [facility] [place] per MS for pt to [...] that script for Repatha be sent to [facility] in [place] and stated that she will get the Fish Oil OTC. Above orders routed to the [facility]LO to sign and send.-SRS [facility] [employer] 05-23-2024 History of Present illness Narrative Images [...] disorder, unspecified (CMS/HCC) documented in this encounter [facility] 05-22-2024 History of Present illness Narrative eduardo documented in this encounter [facility] 05-14-2024 History of Present illness Narrative Marita [...] be refilled. documented in this encounter [facility] 05-05-2024 History of Present illness Narrative Marita Messina Date of visit: 05/05/2024 Date of : 1985 Age: 38 y.o. Patient Active Problem List Diagnosis Gastroesophageal reflux disease without esophagitis Obstructive sleep apnea syndrome Obesity, Class II, BMI 35-39.9 Other fatigue Severe obesity (BMI 35.0-39.9) with comorbidity ([facility]) Allergies Allergen Reactions Vicodin [Hydrocodone-Acetaminophen] Hives Current [...] Chief Complaint Patient presents with New Patient [facility], SINUS TACHY, NO PREVIOUS CARDIO, [...] Obstructive sleep apnea hypopnea, mild Pulmonary embolism ([facility]) history of , approx 2013 Sleep apnea Visual impairment contacts, glasses No data recorded No data recorded No data recorded Past Surgical History: Procedure Laterality Date DENTAL SURGERY wisdom teeth HERNIA REPAIR HYSTERECTOMY PARTIAL LASER ABLATION CONDYLOMA CERVICAL / VULVAR REPAIR HERNIA INCISIONAL VENTRAL MESH N/A 04/01/2019 Performed by Luis A Gr DO at [facility] Family History Problem Relation [...] 1. Sinus tachycardia - [facility] [place], [place] 2. [facility], [facility] [place] [place] - Stress test (exercise only); Future - Echo complete W/O contrast; Future 3. Palpitation - [facility] [place], [place] 4. Hypertriglyceridemia - Lipid profile; Future [...] SPARROW MD Referring Physician: Caitlyn Sparrow MD [address] [place] [address] documented in this encounter [facility] [employer] [facility] 08-09-2023 Miscellaneous Notes Please see pended medication. Pharmacy linked. Last ordered 03/09/2023. Ashtyn Perez MA documented in this encounter [facility] 03-09-2023 Miscellaneous Notes Please see pended medication. Pharmacy linked. Last ordered 10/25/2022. Ashtyn Perez MA documented in this encounter [facility] 07-11-2022 Note CONSULTATION PROCEDURE DATE: 07/11/2022 [...] be followed up in the office. [facility] 07-11-2022 Note CONSULTATION CONSULTATION DATE: 07/11/2022 CHIEF COMPLAINT: Trapezius and upper back pain. HISTORY OF PRESENT ILLNESS: This is a 36-year-old female who is known to the Pain Clinic. The patient, in October of this year, had a rhizotomy radiofrequency ablation along her cervical spine. This has afforded the patient significant improvement. 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 CC: Caitlyn Sparrow M.D. [facility] 05-23-2022 Miscellaneous Notes Please see pended medication. Pharmacy linked. Last ordered 10/20/2021. Ashtyn Perez Ma documented in this encounter [facility] 03-08-2022 Note CONSULTATION CONSULTATION DATE: 03/08/2022 [...] Patient does agree with plan of care. [facility] Signed and Approved by: LUDA RODRIGUEZ . 03/09/2022 13:38:00 [facility] 01-09-2022 Miscellaneous Notes Please see pended medication. Pharmacy linked. Last ordered 07/05/2021. Ashtyn Perez Ma documented in this encounter [facility] 11-30-2021 Note CONSULTATION PAIN MANAGEMENT CONSULTATION [...] time, and patient agrees to this plan. [facility] Signed and Approved by: LUDA RODRIGUEZ . 12/01/2021 12:26:00 [facility] 09-15-2021 Note The [place], [place] NAME: MARITA MESSINA DATE OF : MEDICAL REC#: [id number] FILM TECHNICIAN: [id number] ADMIT DATE: 09/15/2021 12:21:00 NEWSPAPER DELIVERER DATE: 09/16/2021 11:00 DICTATING PHYSICIAN: LUDA RODRIGUEZ [...] Luda Rodriguez CNP on 09/25/2021 11:23 PM [facility] Signed and Approved by: LUDA RODRIGUEZ . 09/25/2021 23:23:00 [facility] Evaluation note Diagnosis Excessive physiologic tremor Essential and other specified forms of tremor [facility] [employer] Other Evaluation note* Diagnosis Daytime sleepiness Narcolepsy without cataplexy [facility] Diagnosis Daytime sleepiness Narcolepsy without cataplexy [facility] Diagnosis Daytime sleepiness Narcolepsy without cataplexy [facility] Diagnosis Morbid (severe) obesity due to excess calories (CMS/HCC)- Primary Bipolar disorder in full remission, most recent episode unspecified type (CMS/HCC) Mixed dyslipidemia (CMS/HCC) documented in this encounter [facility]* Diagnosis Tinea pedis of both feet- Primary Chronic dermatitis of feet Contact dermatitis and other eczema, due to unspecified cause Dermatophytosis of nail Pain around toenail, right foot Pain around toenail, left foot documented in this encounter [facility]* Diagnosis Dermatitis- Primary Contact dermatitis and other eczema, due to unspecified cause documented in this encounter [facility]* Diagnosis Folliculitis- Primary Other specified disease of hair and hair follicles Obesity, Class II, BMI 35-39.9 Morbid (severe) obesity due to excess calories (CMS/HCC) Gastro-esophageal reflux disease without esophagitis Body mass index (BMI) 39.0-39.9, adult Bipolar disorder, unspecified (CMS/HCC) Bipolar disorder, unspecified documented in this encounter [facility]* Diagnosis Gastroesophageal reflux disease without esophagitis Esophageal reflux documented in this encounter [facility]* Diagnosis Obesity, Class II, [...] enzyme levels documented in this encounter [facility]* Diagnosis Obstructive sleep apnea syndrome Obstructive sleep apnea (adult) (pediatric) documented in this encounter [facility]* Diagnosis Tremor- Primary Abnormal involuntary movements documented in this encounter [facility]* Diagnosis Hypertriglyceridemia- Primary Pure hyperglyceridemia Sinus tachycardia Other specified cardiac dysrhythmias Chest pain, unspecified type Palpitation Palpitations Vapes nicotine containing substance [facility] Diagnosis Medication monitoring encounter- Primary Encounter for therapeutic drug monitoring Other hyperlipidemia Elevated triglycerides with high cholesterol Mixed hyperlipidemia Elevated LDL cholesterol level Severe obesity (BMI 35.0-39.9) with comorbidity (CMS-HCC) Other fatigue [facility] Diagnosis Dermatophytosis of nail- Primary Dystrophic nail Other specified disease of nail Pain around toenail, right foot Pain around toenail, left foot documented in this encounter [facility]* Diagnosis Obstructive sleep apnea syndrome Obstructive sleep apnea (adult) (pediatric) documented in this encounter [facility]* Diagnosis Obstructive sleep apnea syndrome- Primary Obstructive sleep apnea (adult) (pediatric) Obesity, Class II, BMI 35-39.9 Chronic bilateral low back pain without sciatica documented in this encounter [facility]* Diagnosis Gastroesophageal reflux disease without esophagitis Esophageal reflux documented in this encounter [facility] HealthcareInstructionsNot on filedocumented in [facility]ructionsNot on filedocumented in this encounterPro[facility] SystemInstructionsNot on filedocumented in this [facility] InstructionsNot on filedocumented in this [facility] Summary Purpose Family History No Family History Records FoundNo Family History Records FoundNo Family History Records FoundNo Family History Records FoundNo Family History Records FoundNo Family History Records FoundNo Family History Records Found Advance Directives Documents on File Type Date Recorded 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 Advance Directives and Living Will Power of Line Camera Operator History of Present Illness * Bradley Simmons MD - 11/10/2019 2:00 PM EST [facility] PATIENT NAME: Marita Messina MRN NUMBER: [id number] DATE OF : 1985 PHONE NUMBER: [phone] PRIMARY CARE PHYSICIAN: No primary care provider [...] other week Pulmonary embolism (HCC) 2014 [facility] Past Surgical History: Past Surgical History: Procedure Laterality Date HERNIA REPAIR a year had repair above belly button at [facility] HERNIA REPAIR umbilical and above belly buton also at [facility] about 2 years ago HYSTERECTOMY TUMOR REMOVAL Left 2012 left thumb at [facility] Family History: Family History Problem Relation [...] CT scan reports and images from the [facility] system E from May 2019 and [...] Echo complete W/O contrast Jurgen English MD [address] [place] [address] Referral ID Status Reason Start Date Expiration Date V isits Requested Visits Authorized [id number] Pending Review 05/05/2024 05/05/2025 1 1 Specialty Diagnoses / Procedures Referred By Contac t Referred To Contact Diagnoses Chest pain, unspecified type Procedures Stress test (exercise only) Jurgen English MD [address] [place] [address] Referral ID Status Reason Start Date Expiration Date V isits Requested Visits Authorized [id number] Pending Review 05/05/2024 05/05/2025 5 5 Additional Source Comments INFORMATION SOURCE (unrecogn ized section and content) DATE CREATED AUTHOR 05/31/2019 Carlos Baxter [facility] DATE CREATED AUTHOR AUTHOR'S ORGANIZ ATION 11/11/2019 [facility] DATE CREATED AUTHOR AUTHOR'S ORGANIZ ATION 12/01/2021 [facility] DATE CREATED AUTHOR AUTHOR'S ORGANIZ ATION 09/02/2022 [facility] DATE CREATED AUTHOR AUTHOR'S ORGANIZ ATION 11/05/2024 [facility] DATE CREATED AUTHOR AUTHOR'S ORGANIZ ATION 02/06/2025 [facility] DATE CREATED AUTHOR AUTHOR'S ORGANIZ ATION 02/08/2025 [facility] EPIC Source Comments (unrecognize d section and content) In the event this informatio n is protected by the Federal Confidentiality of Alcohol and Drug Abuse Patient Records regulations: The Federal rules restrict any use of the information to criminally investigate or prosecute any alcohol or drug abuse patient.[facility] the event this information is protected by the Federal Confidentiality of Alcohol and Drug Abuse Patient Records regulations: The Federal rules restrict any use of the information to criminally investigate or prosecute any alcohol or drug abuse patient.[facility] Hospital[facility] the event this information is protected by the Federal Confidentiality of Alcohol and Drug Abuse Patient Records regulations: The Federal rules restrict any use of the information to criminally investigate or prosecute any alcohol or drug abuse patient.[facility] Hospital[facility] the event this information is protected by the Federal Confidentiality of Alcohol and Drug Abuse Patient Records regulations: The Federal rules restrict any use of the information to criminally investigate or prosecute any alcohol or drug abuse patient.[facility] Reason for Visit (unrecogniz ed section and content) Reason Onset Date Comments Refill Request 01/09/2022 Reason Onset Date Comments Refill Request 03/09/2023 Reason Onset Date Comments Refill Request 08/09/2023 Reason Comments Follow-up Reason Comments Fungus Pt is here today for fungal nails, first noticed about 1 yr ago. Also athlete's foot BL. She has tried OTC topical fungal luxembourger, no change noted. SS:8 Reason Comments Rash Reason Onset Date Comments Med Refill 05/26/2024 Reason Comments Establish Care Weight Loss Reason Comments Weight Check Reason Onset Date Comments Med Refill 09/20/2024 Reason Comments New Patient [facility], SINUS TAC HY, NO PREVIOUS CARDIO, SCHED W/PT Specialty Diagnoses / Procedures Referred By Vickie ahumada Referred To Contact Cardiology Diagnoses Sinus tachycardia Chest pain, unspecified type Palpitation Luiza Webb, DO [address] [place] [address] [facility] [address] [id number] Referral ID Status Reason Start Date Expiration Date Visits Requested Visits Authorized [id number] Pending Review Specialty Services Required 03/23/2024 03/23/2025 [...] Reason Onset Date Comments Med Refill 11/03/2024 Reason Comments Med Refill Care Teams (unrecognized sec tion and content) Shirring Tender Relationship Specialty Start Date End Date Caitlyn Sparrow [address] [place] [address] PCP - General Internal Medicine 11/25/18 Shirring Tender Relationship Specialty Start Date End Date Caityln Sparrow [address] [place] [address] PCP - General Internal Medicine 11/25/18 Shirring Tender Relationship Specialty Start Date End Date Caitlyn Sparrow [address] [place] [address] PCP - General Internal Medicine 11/25/18 Shirring Tender Relationship Specialty Start Date End Date Caitlyn Sparrow [address] [place] [address] PCP - General Internal Medicine 11/25/18 Shirring Tender Relationship Specialty Start Date End Date Jo-Ann Gee MD [address] [place] [address] PCP - General Family Medicine 05/09/24 Shirring Tender Relationship Specialty Start Date End Date Jo-Ann Gee MD [address] [place] [address] PCP - General Family Medicine 05/09/24 Shirring Tender Relationship Specialty Start Date End Date Jo-Ann Gee MD [address] [place] [address] PCP - General Family Medicine 05/09/24 Shirring Tender Relationship Specialty Start Date End Date Jo-Ann Gee MD [address] [place] [address] PCP - General Family Medicine 05/09/24 Shirring Tender Relationship Specialty Start Date End Date Jo-Ann Gee MD [address] [place] [address] PCP - General Family Medicine 05/09/24 Shirring Tender Relationship Specialty Start Date End Date Jo-Ann Gee MD [address] [place] [address] PCP - General Family Medicine 05/09/24 Shirring Tender Relationship Specialty Start Date End Date Jo-Ann Gee MD [address] [place] [address] PCP - General Family Medicine 05/09/24 Shirring Tender Relationship Specialty Start Date End Date Jo-Ann Gee MD [address] [place] [address] PCP - General Family Medicine 05/09/24 Shirring Tender Relationship Specialty Start Date End Date Jo-Ann Gee MD [address] [place] [address] PCP - General Family Medicine 05/09/24 Shirring Tender Relationship Specialty Start Date End Date Jo-Ann Gee MD [address] [place] [address] PCP - General Family Medicine 05/09/24 Jo-Ann Gee MD [address] [place] [address] PCP - [employer] 09/10/24 Shirring Tender Relationship Specialty Start Date End Date Jo-Ann Gee MD [address] [place] [address] PCP - General Family Medicine 05/09/24 Jo-Ann Gee MD [address] [place] [address] PCP - [employer] 09/10/24 Shirring Tender Relationship Specialty Start Date End Date Caitlyn Sparrow MD PCP - General Pediatrics 03/08/24 Shirring Tender Relationship Specialty Start Date End Date Caitlyn Sparrow MD PCP - General Pediatrics 03/08/24 Shirring Tender Relationship Specialty Start Date End Date Caitlyn Sparrow MD PCP - General Pediatrics 03/08/24 Shirring Tender Relationship Specialty Start Date End Date Jo-Ann Gee MD [address] [place] [address] PCP - General Family Medicine 05/09/24 Jo-Ann Gee MD [address] [place] [address] PCP - [employer] 09/10/24 Shirring Tender Relationship Specialty Start Date End Date Jo-Ann Gee MD [address] [place] [address] PCP - General Family Medicine 05/09/24 Jo-Ann Gee MD [address] [place] [address] PCP - [employer] 09/10/24 Shirring Tender Relationship Specialty Start Date End Date Jo-Ann Gee MD [address] [place] [address] PCP - General Family Medicine 08/20/24 Shirring Tender Relationship Specialty Start Date End Date Jo-Ann Gee MD [address] [place] [address] PCP - General Family Medicine 05/09/24 Jo-Ann Gee MD [address] [place] [address] PCP - [employer] 09/10/24 Shirring Tender Relationship Specialty Start Date End Date Jo-Ann Gee MD [address] [place] [address] PCP - General Family Medicine 05/09/24 Jo-Ann Gee MD [address] [place] [address] PCP - [employer] 09/10/24 Dorcas Peralta NP [address] [place] [address] Nurse Practitioner Family Medicine 02/06/25 Shirring Tender Relationship Specialty Start Date End Date Jo-Ann Gee MD [address] [place] [address] PCP - General Family Medicine 05/09/24 Jo-Ann Gee MD [address] [place] [address] PCP - [employer] 09/10/24 Dorcas Peralta NP [address] [place] [address] Nurse Practitioner Family Medicine 02/06/25 FOR RECORDS [...] BE BASED ON THE PRIMARY CLINICAL RECORDS. [facility] [employer] [facility]. provides no warranty or guarantee of the accuracy or completeness of information in this document.
--- NOTE | 2025-03-12 10:07 | PM.CN ---
Consult Note: HPI Data of Consult Patient: known to practice within the last 3 years Requesting Physician: Michelle Randhawa NP Primary Care Provider: CAITLYN SPARROW Consult Narrative Reason for consult: neck and low back pain Narrative: Marita Messina a pleasant 39 year old female presents for evaluation of chronic neck pain and low back pain. Patient has tried and failed OTC medications, home based exercise program and cervical traction greater than 6 weeks. currently utilizing flexeril 10mg BID and gabapentin 600mg BID with benefit without side effects. NAHUN 22%. noting increased neck/trapezius pain and tightness. low back pain 2/10 today, reports 90% improvement from recent bilateral SIJ injection. has not been utilizing TENS recently. cc:: CC: Michelle Randhawa NP [facility] Medical History Anxiety �F41.9 - Anxiety disorder, unspecified (ICD-10) Hiatal hernia �K44.9 - Diaphragmatic hernia without obstruction or gangrene (ICD-10) Acid reflux �K21.9 - Gastro-esophageal reflux disease without esophagitis (ICD-10) Pulmonary embolism �I26.99 - Other pulmonary embolism without acute cor pulmonale (ICD-10) Asthma �J45.909 - Unspecified asthma, uncomplicated (ICD-10) Surgical History History of surgical removal of Bartholin’s gland cyst �Z98.890 - Other specified postprocedural states (ICD-10) �Z87.42 - Personal history of other diseases of the female genital tract (ICD-10) History of eye surgery �Z98.890 - Other specified postprocedural states (ICD-10) [place] teeth extracted �K08.409 - Partial loss of teeth, unspecified cause, unspecified class (ICD-10) History of hernia repair �Z98.890 - Other specified postprocedural states (ICD-10) �Z87.19 - Personal history of other diseases of the digestive system (ICD-10) History of hysterectomy �Z90.710 - Acquired absence of both cervix and uterus (ICD-10) Meds Home Medications and Allergies Home Medications �Medication �Instructions �Recorded �Confirmed �Type albuterol sulfate 90 mcg/actuation 2 puff inhalation Q6H PRN 06/22/23 03/02/25 History aerosol inhaler shortness of breath or wheezing buspirone 15 mg tablet 15 mg PO BID 06/22/23 03/02/25 History cariprazine 3 mg capsule (Vraylar) 6 mg PO DAILY 06/22/23 03/02/25 History fluoxetine 40 mg capsule (Prozac) 40 mg PO DAILY 06/22/23 03/02/25 History omeprazole 20 mg capsule,delayed 40 mg PO BID 06/22/23 03/02/25 History release propranolol 20 mg tablet 20 mg PO Q12H 06/22/23 03/02/25 History rizatriptan 5 mg tablet 5 mg PO Q2H PRN migraine headache 06/22/23 03/02/25 History evolocumab 140 mg/mL subcutaneous 140 mg subcut 09/01/24 History syringe (Repatha Syringe) tirzepatide (weight loss) 2.5 2.5 mg subcut QWEEK 10/13/24 03/02/25 History mg/0.5 mL subcutaneous pen injector (Telecardiapbound) cyclobenzaprine 10 mg tablet 10 mg PO TID PRN muscle spasm #90 02/11/25 03/02/25 Rx tabs gabapentin 600 mg tablet 600 mg PO BID #60 tabs 02/11/25 03/02/25 Rx Allergies Allergy/AdvReac Type Severity Reaction Status Date / Time hydrocodone (From Vicodin) Allergy Hives Verified 03/02/25 10:08 Exam Constitutional Documenting provider has reviewed patient's vital signs: yes Common normals: no apparent distress, oriented x3, healthy appearing, alert and well nourished General appearance: cooperative HENMT Common normals: normocephalic, hearing grossly normal bilaterally and moist oral mucous membranes Head and scalp: normocephalic Eye Common normals: PERRL Pupil: PERRL Neck & C-Spine Common normals: full ROM General: normal visual inspection Cervical spine: pain with cervical ROM and trapezius muscle tenderness Chest Common normals: inspection of chest normal Respiratory Common normals: normal respiratory effort, no retractions and no use of accessory muscles Back & Pelvis Lumbar spine/lower back: straight leg raise negative bilaterally; ROM not limited and no pain with ROM Sacroiliac joints: SI joints normal Other: negative bilateral boyd(patricks), gaenslens, thigh thrust, compression test strength 5/5 in BLE sensation intact BLE Extremity Common normals: normal to inspection and full ROM Neuro Common normals: oriented x3 Sensorium/orientation: alert Psych Common normals: mental status grossly normal, thought process normal, cooperative, affect normal, speech normal and activity/motor behavior normal Speech: normal speech Thought process: normal thought process Results Additional Findings Additional findings: If on a controlled substance or opioids, I have checked an [place] report on this patient and there are no aberrancies noted in the prescribing history.��If on a controlled substance or opioid a drug screen was completed and reviewed within the last year, and if there has not been a drug screen completed we ordered one today to monitor higher risk, state monitored pain medication use. As part of providing excellent, safe, comprehensive care, the following was completed at our patient's visit: 1. A medication reconciliation and review to ensure accurate knowledge of current/active medications, including asking our patients to inform us about any [id number] medications or herbal remedies/nutritional supplements/alternative remedies. 2. A review to specifically ensure our patients have had annual screening for screening for depression, screening for tobacco use, and screening for unhealthy alcohol use. For concerning screenings had a discussion with the patient, provided patient education, and recommended follow-up with primary care provider when appropriate. If patient noted with a risk of falling, they received education on strength, gait, and balance training to prevent future risk of falling. Portions of this note may have been carried over from the previous visit and updated as appropriate. Please note this office utilizes paper charting in addition to the electronic medical record. A list of current medications, vitals, and PMH is available there as the clinical staff outside of myself do not have access to [employer] charting during the clinic day operations. As part of providing quality comprehensive care the current medications, vitals, and PMH were reviewed in the paper chart. Assessment and Plan Assessment and Plan (1) Sacroiliitis: Assessment and Plan: 03/02/25 bilateral SIJ injection >50% improvement ongoing (2) Myofascial pain syndrome: Plan encouraged TENS and increase flexeril 5-10mg TID PRN pain/spasms continue HEP and stretching as tolerated continue gabapentin 600mg BID, may consider pregabalin in the future. with hyperalgesia and diffuse pain may have FM f/u 3 months, sooner if needed
== END 2025-03-12 09:51 | disposition home or self-care (01) ==
LOC: PM 09:50
PROVIDERS: PCP Internal Medicine; Visit Provider Nurse Practitioner
DX: M46.1 Sacroiliitis, not elsewhere classified (principal); M79.18 Myalgia, other site
CPT/HCPCS: G0463

== ENCOUNTER 2025-06-11 10:55 | Outpatient (OUT) | payer MEDICARE, MEDICAID, SELFPAY ==
--- OUTSIDE RECORDS SUMMARY | 2025-06-10 11:03 | XMS_ITS ---
Author Organization [facility] Support Name Relationship Address Phone BERNICE MESSINA Mother Unknown [phone] [place] [address] + DEMAR MESSINAET Mother Unknown [phone] MAYURI, BERNICE Mother Unknown [phone] MAYURI, BERNICE Mother Unknown [phone] MayuriDemaret Unknown Unknown [phone] [place], H[place] Unknown Unknown [phone] MAYURIDEMAR TERRYET Mother Unknown [phone] Mayuri, Bernice Unknown Unknown +[phone] [place], [place] Unknown Unknown [phone] MAYURI, BERNICE Mother Unknown +[phone] Mayuri Bernice Unknown Unknown +[phone] [place], [place] Unknown Unknown [phone] Mayuri Bernice Unknown Unknown +[phone] [place], [place] Unknown Unknown [phone] MAYURIDEMARET Mother Unknown +[phone] MAYURIDEMARET Mother Unknown +[phone] Mayuri, Bernice Unknown Unknown +[phone] [place], [place] Unknown Unknown +[phone] MAYURI, BERNICE Mother Unknown +[phone] MAYURI BERNICE Mother Unknown +[phone] MAYURI, BERNICE Mother Unknown +[phone] Mayuri, Bernice Unknown Unknown +[phone] [place], [place] Unknown Unknown [phone] MayuriBernice terry Unknown Unknown +[phone] [place] Stacy Unknown Unknown [phone] BERNICE MESSINA Mother Unknown +[phone] BERNICE MESSINA Mother Unknown +[phone] MAYURIBERNICE TERRY Mother Unknown +[phone] BERNICE MESSINA Mother Unknown [phone] Care Team Providers Care Online Communications Specialist Name Role Phone SHERIE CEDEÑO Attending Unavailable RUSHER, SHERIE Freitas Attending Unavailable KAMPFER, BRADEN Attending Unavailable RUS, SHERIE Freitas Attending Unavailable KAMPFER, BRADEN Attending Unavailable KAMPFER, BRADEN Referring Unavailable KAMPFER, BRADEN Attending Unavailable RUS, SHERIE Freitas Attending Unavailable KAMPTIBURCIO, BRADEN Attending Unavailable Justin CLEMONS, [facility] Ness vailable Gigina CLEMONS, Sana Doyle Attending Unavailable Malina CLEMONS, Sana Doyle Attending Unavailable Justin CLEMONS, [facility] Ness vailable Gigina CLEMONS, Sana Doyle Attending Unavailable Justin CLEMONS, [facility] Ness vailable Justin CLEMONS, [facility] Ness vailable Malina CLEMONS, Sana Doyle Attending Unavailable Justin CLEMONS, [facility] Ness vailable Martha RUSSO, Braden Stewart Attending Christian Thomas PA-C, Braden Stewart Attending Christian Sparrow MD, [facility] Ness vailable Giedbriana CLEMONS, Sana Doyle Attending Unavailable Justin CLEMONS, [facility] Ness vailable Fibroscan, Temporary Attending Unavailable Jo-Ann Cuevas Primary Care Un available Woodrow Valentino Referring Unavailable Fibroscan, Temporary Admitting Unavailable LAQUITA SHARIF Attending Unavailable LAQUITA SHARIF Referring Unavailable CAITLYN SPARROW Primary Care UnavailCAITLYN Briones Referring UnavailJO-ANN Hinojosa Primary Care Unavailable DHALIWALCELESTE CONLEY Referring Unavailable JO-ANN GEE Primary Care Unavailable JO-ANN GEE Referring Unavailable JO-ANN GEE Primary Care Unavailable Purpose PROBLEMS DATE TYPE CONDITION / CODE ATTENDING STATUS [facility] 06/11/2024 Unknown Hyperlipidemia, unspecified / E78.5(ICD-10) [facility] 06/10/2025 Unknown MTM Initial Visi t / FREETEXT(AOF) [facility] 06/10/2025 Unknown Other specified abnormal findings of blood chemistry / R79.89(ICD-10) [facility], [facility] 06/10/2025 Unknown Fatty (change of ) liver, not elsewhere classified / K76.0(ICD-10) [facility], [facility] 06/11/2024 Unknown Other hyperlipid emia / E78.49(ICD-10) [facility] 03/06/2022 Unknown Morbid (severe) obesity due to excess calories / E66.01(ICD-10) [facility] 02/23/2022 Unknown Other fatigue / R53.83(ICD-10) [facility] 11/03/2024 Unknown Encounter for therapeutic drug level monitoring / Z51.81(ICD-10) [facility] 11/03/2024 Unknown Mixed hyperlipid emia / E78.2(ICD-10) [facility] 11/03/2024 Unknown Pure hypercholesterolemia, unspecified / E78.00(ICD-10) [facility] 09/15/2024 Unknown Spondylosis with out myelopathy or radiculopathy, cervical region / M47.812(ICD-10) [facility] 09/15/2024 Unknown Other cervical d isc displacement, unspecified cervical region / M50.20(ICD-10) [facility] 07/04/2024 Unknown Tachycardia, unspecified / R00.0(ICD-10) CHANTEJOAQUINLL Active [facility] 07/04/2024 Unknown Palpitations / R00.2(ICD-10) [facility] PROCEDURES No Procedure Records Found VITAL SIGNS No Vital Signs Records Found RESULTS FERRITIN Collected: 9:37 AM Status: F Source: [facility] TYPE CODE TESTS RESULT OUT OF RANGE REFERENCE UNITS LAB TIBURCIO Ferritin 91.1 Normal 11.0-306.8 ng/mL Performed By: #### LIPID, FE R #### [facility] [address] [place] [address] #### HBCAB, HBSAG, HAAB, HCV RX PCR, HAABT, CERULOP, HBSAB, HCBIGM #### [facility] , LIPID PANEL Collected: 06/10/2025 9:37 AM Status: F Source: [facility] TYPE CODE TESTS RESULT OUT OF RANGE REFERENCE UNITS LAB CHOL Cholesterol 121 Low 140-200 mg/dL Result Comment: Chol less th an 200 mg/dl low risk Chol 201-239 mg/dl borderline risk Chol 240 mg/dl and greater high risk LAB HDL HDL Cholesterol 51 Normal 23-92 mg/dL Result Comment: HDL CHOL ATP -III CLASSIFICATION Cardiovascular Risk HDL > or equal to 60 mg/dL LOW HDL < 40 mg/dL HIGH LAB TRIG W REF Triglyceride w/Reflex 169 High 0-149 mg/dL Result Comment: TRIG ATP III CLASSIFICATION TRIG less than 150 mg/dL Normal TRIG 150-199 mg/dL Borderline high TRIG 200-500 mg/dL High TRIG greater than 500 mg/dL Very high Standard traceable to the Center for Disease Conrtrol and Prevention (CDC) test method. LAB LDLC LDL Cholesterol,Calc ulated 36 Normal 0-100 mg/dL Result Comment: LDL ATP III CLASSIFICATION LDL less than 100 mg/dL Optimal LDL 100-129 mg/dL Near or above optimal LDL 130-159 mg/dL Borderline high LDL 160-189 mg/dL High LDL greater than 189 mg/dL Very high LAB VLDL VLDL CHOLESTEROL 33 mg/dL LAB CHLHDL Chol/HDL Ratio 2.4 <5.0 Result Comment: PERFORMED BY : [place] [id number] PATHOLOGIST WRAP TURNER BENJY PEDRO M.D. Performed By: #### LIPID, FE R #### [address] #### HBCAB, HBSAG, HAAB, HCV RX PCR, HAABT, CERULOP, HBSAB, HCBIGM #### [facility] , CERULOPLASMIN Collected: 06/10/2025 9:37 AM Status: F Source: [facility] TYPE CODE TESTS RESULT OUT OF RANGE REFERENCE UNITS LAB CERULOP Ceruloplasmin 23.5 19.0-39.0 mg/dL Result Comment: Performed at : [place] [id number] Finance Executive: Fish Sharma PhD, Phone: [phone] PERFORMED BY: [place] [address] PATHOLOGIST WRAP TURNER BENJY PEDRO M.D. Performed By: #### LIPID, FE R #### [address] #### HBCAB, HBSAG, HAAB, HCV RX PCR, HAABT, CERULOP, HBSAB, HCBIGM #### [facility] , HEPATITIS A ANTIBODY IGM Collected: 06/10/2025 9:37 A M Status: F Source: [facility] TYPE CODE TESTS RESULT OUT OF RANGE REFERENCE UNITS LAB HAAB Hepatitis A Antibody IgM Negative Negative Result Comment: A negative a nti-HAV IgM result suggests no recent or current HAV infection. Performed By: #### LIPID, FE R #### [place] [address] [place] #### HBCAB, HBSAG, HAAB, HCV RX PCR, HAABT, CERULOP, HBSAB, HCBIGM #### [facility] , HEPATITIS B CORE ANTIBODY IGM Collected: 06/10/2025 9 :37 AM Status: F Source: [facility] TYPE CODE TESTS RESULT OUT OF RANGE REFERENCE UNITS LAB HCBIGM Hepatitis B Core Antibody IgM Negative Negative Result Comment: Performed at : [facility] [id number] Finance Executive: Fish Sharma PhD, Phone: [phone] Performed By: #### LIPID, FE R #### [address] #### HBCAB, HBSAG, HAAB, HCV RX PCR, HAABT, CERULOP, HBSAB, HCBIGM #### [facility] , HEP C AB WRFX TO QNT PCR Collected: 06/10/2025 9:37 A M Status: F Source: [facility] TYPE CODE TESTS RESULT OUT OF RANGE REFERENCE UNITS LAB HCV AB. Hepatitis C Virus Antibody Non Reactive Non Reactive LAB RFXHEPCINTERP Interpretation Hepatitis C Comment . Result Comment: Not infected with HCV unless early or acute infection is suspected (which may be delayed in an immunocompromised individual), or other evidence exists to indicate HCV infection. Performed By: #### LIPID, FE R #### [place] [address] [place] #### HBCAB, HBSAG, HAAB, HCV RX PCR, HAABT, CERULOP, HBSAB, HCBIGM #### [facility] , HEPATITIS A ANTIBODY TOTAL Collected: 1 9:37 AM Status: F Source: [facility] TYPE CODE TESTS RESULT OUT OF RANGE REFERENCE UNITS LAB HAABT Hepatitis A Antibody Total Negative Negative Result Comment: Comment: The HAV total antibody assay detects both IgG and IgM but does not differentiate between them. A negative result suggests susceptibility to infection. A positive result could be due to vaccination, previously resolved infection or active infection. Testing for HAV IgM should be performed if active HAV infection is suspected. [facility] offers profiles that will automatically reflex positive HAV total antibody results to IgM (e.g., panel #[id number] HAV Antibody w/ Rfx). Performed By: #### LIPID, FE R #### [place] [address] [place] #### HBCAB, HBSAG, HAAB, HCV RX PCR, HAABT, CERULOP, HBSAB, HCBIGM #### [facility] , HEPATITIS B SURFACE ANTIBODY Collected: 06/10/2025 9: 37 AM Status: F Source: [facility] TYPE CODE TESTS RESULT OUT OF RANGE REFERENCE UNITS LAB HBSAB Hepatitis B Surface Antibody Reactive . Result Comment: Non Reactive : Not immune to HBV infection. Anti-HBs undetectable or less than 10 mIU/mL. Reactive: Evidence of HBV immunity. Anti-HBs levels greater than 10 mIU/mL. Performed By: #### LIPID, FE R #### [address] #### HBCAB, HBSAG, HAAB, HCV RX PCR, HAABT, CERULOP, HBSAB, HCBIGM #### [facility] , HEPATITIS B CORE ANTIBODY Collected: 06/10/2025 9:37 AM Status: F Source: [facility] TYPE CODE TESTS RESULT OUT OF RANGE REFERENCE UNITS LAB HBCAB Hepatitis B Core Antibody Negative Negative Performed By: #### LIPID, FE R #### [address] #### HBCAB, HBSAG, HAAB, HCV RX PCR, HAABT, CERULOP, HBSAB, HCBIGM #### [facility] , HEPATITIS B SURFACE ANTIGEN Collected: 06/10/2025 9:3 7 AM Status: F Source: [facility] TYPE CODE TESTS RESULT OUT OF RANGE REFERENCE UNITS LAB HBSAG SCR HBsAg Screen Negative Negative Result Comment: PERFORMED BY : [place] [address] PATHOLOGIST WRAP TURNER BENJY PEDRO M.D. Performed By: #### LIPID, FE R #### [address] #### HBCAB, HBSAG, HAAB, HCV RX PCR, HAABT, CERULOP, HBSAB, HCBIGM #### [facility] , [place] LIVER Observed: 05/21/2025 8:25 AM Status: F Source: [facility] LIVER History: Elevated liver enzymes. Technique: Sonography of the right upper quadrant was performed. Comparison: None RESULT: Pancreas: Normal sonographic appearance of the visualized portions. Liver: Increased echogenicity with decreased through-transmission, suggestive of steatosis. Area of focal fatty sparing near the gallbladder. No suspicious liver lesions. Gallbladder: Normal caliber without cholelithiasis, sludge, wall thickening, or pericholecystic fluid. Biliary Ducts: No intrahepatic or extrahepatic bile duct dilation. CBD measures 0.5 cm. Right Kidney: Imaged portions unremarkable. Ascites: None. IMPRESSION: Impression: Diffuse hepatic steatosis with focal fatty sparing near the gallbladder. ELECTRONICALLY SIGNED BY: Major Gutierrez MD ALT Collected: 11/03/2024 7:11 AM S tatus: COMPLETED Source: [facility] TYPE CODE TESTS RESULT OUT OF RANGE REFERENCE UNITS LAB ALT(LOINC) ALT 51 High 0-31 U/L Performed By: #### 1744-2, 1 920-8, 2088-09, 2571-04 #### [facility] ([id number]) [address], [address] [place] [address] AST Collected: 11/03/2024 7:11 AM S tatus: COMPLETED Source: [facility] TYPE CODE TESTS RESULT OUT OF RANGE REFERENCE UNITS LAB AST(LOINC) AST 38 0-41 U/L Performed By: #### 1744-2, 1 920-8, 2088-09, 8 #### [facility] ([id number]) [address] [facility] [address] [place] [address] DIRECT LDL Collected: 11/03/2024 7:11 AM S tatus: COMPLETED Source: [facility] TYPE CODE TESTS RESULT OUT OF RANGE REFERENCE UNITS LAB DLDL(LOINC) DIRECT LDL 65 <130 mg/dL Result Comment: LDL <100 mg/dL - Desirable LDL 130-159 mg/dL - Borderline High Risk LDL >160 mg/dL - High Risk Performed By: #### 1744-2, 1 920-8, 2088-09, 8 #### [facility] ([id number]) [address] [facility], [address] [place] [address] TRIGLYCERIDE Collected: 11/03/2024 7:11 AM S tatus: COMPLETED Source: [facility] TYPE CODE TESTS RESULT OUT OF RANGE REFERENCE UNITS LAB TRIG(LOINC) TRIGLYCERIDE 234 High 27-150 mg/dL Performed By: #### 1744-2, 1 920-8, 2089-1, 2571-8 #### [facility] ([id number]) [address] [facility], [address] [place] [address] MR CERVICAL SPINE WO CONT Observed: 02/2025 1:36 PM Status: COMPLETED Source: [facility] MR CERVICAL SPINE WO CONT EXAM: MR [...] Luis A Myles on 09/16/2024 2:09 PM GYNECOLOGY OFFICE/CLINIC NOTE Observed: 08/13/2024 3:30 PM Status: F Source: [facility] Chief Complaint Annual. 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 Hypothyroid Insomnia Labial hypertrophy Labium boil Migraine Narcolepsy Neck pain PE - Pulmonary embolism Seasonal allergies Smoker Spinal stenosis of cervical region Tremors of nervous system Historical No qualifying data Procedure/Surgical History Surgery Barclan Gland/Cyst 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 Procedure Hernia Repair Left Thumb Tumor Removed Extraction of wisdom tooth (2002) colonoscopy/EGD (2015) Repair of diaphragmatic hiatal hernia (2018) Total Hysterectomy Robotic X/Xi (10/07/2019) Repair Labia (11/30/2020) Neck Ablation (10/04/2021) Right Neck Ablation (10/11/2021) Medications Aimovig SureClick Autoinjector 140 mg/mL subcutaneous solution, 140 mg, Subcutaneous, qMonth albuterol 90 mcg/inh inhalation aerosol, 2 puffs, Inhale, q4hr, PRN BUDESONIDE-FORMOTEROL 160-4.5, 2 puffs, Inhale, BID busPIRone 30 mg oral tablet, 30 mg= 1 tabs, Oral, BID clotrimazole-betamethasone dipropionate 1%-0.05% topical cream, 1 nabeel, Topical, BID cyclobenzaprine 10 mg oral tablet, 1 tabs- 1.5 tabs, Oral, TID Fish Oil oral capsule, 4 caps, Oral, Daily gabapentin 300 mg oral capsule, 600 mg= 2 caps, Oral, BID hydrOXYzine pamoate 50 mg oral capsule, 50 mg= 1 caps, Oral, BID, PRN Maxalt 5 mg oral tablet, 5 mg= 1 tabs, Oral, Daily, PRN, may repeat dose every 2 hours up to a maximum of 3 doses in 24 hours omeprazole 20 mg oral delayed release capsule, 20 mg= 1 caps, Oral, Daily, before a meal ondansetron 4 mg oral tablet, disintegrating, 30 EA, dissolve 1 tablet ON TONGUE once daily if needed for nausea OR vomiting propranolol 20 mg oral tablet, 180 EA, take 1 tablet by mouth twice a day PROzac 40 mg oral capsule, 40 mg= 1 caps, Oral, qAM Repatha 140 mg/mL subcutaneous solution, 140 mg, Subcutaneous, q14day, rotate injection sites traZODone 50 mg oral tablet, 50 mg= 1 tabs, Oral, HS (at bedtime) Vraylar 6 mg oral capsule, 6 mg= 1 caps, Oral, Daily Allergies Vicodin (Hives) Social History Alcohol Current, Beer, 1-2 times per week Employment/School ON DISABILITY Exercise Home/Environment Lives with Children, Significant other. Living situation: Home/Independent. SIGNIFICANT OTHER, 2 DOGS, 2 CATS Nutrition/Health Regular, Caffeine intake amount: 1 cup of coffee and 1 sweat tea. Sexual Sexually active: Yes. Substance Abuse Denies All Tobacco 4 or less cigarettes(less than 1/4 pack)/day in last 30 days Use:. E-Cigarettes, Second-Hand Exposure, Ready to change: No. Family History COPD: Grandmother (M). Cardiovascular disease: Grandfather (P). Diabetes mellitus: Father and Grandfather (P). Heart disease: Grandfather (P). Hyperlipidemia: Father and Grandfather (P). Skin cancer: Mother. Electronically signed by Braden Thomas PA-C 08/13/24 16:49 EST Electronically signed by Sunday Robertson 08/11/2024 16:18 EST AMBULATORY PATIENT EDUCATION Observed: 08/11/2024 4:18 PM Status: CANCELED Source: [facility] Patient Education Materials Name: Marita Messina Current Date: 08/11/2024 16:18:15 [place] : 1985 [facility]: [id number] The following sheet(s) are the Patient Education [...] breast self-exam (BSE). These experts include the [employer] and the [employer]st[employer] Gynecologists. Some experts [...] This means they are not cancer. ? 6258-8206 The [employer]. All rights reserved. This information is not intended as a substitute for professional medical care. Always follow your healthcare professional's instructions.Urology Pelvic Floor Muscle Exercises Pelvic floor muscle [...] prevent urine, gas, or stool leakage. ? 2136-7926 The [employer]. All rights reserved. This information is not intended as a substitute for professional medical care. Always follow your healthcare professional's instructions. ALLERGIES DATE TYPE / CODE NAME / CODE REACTION SEVERITY SOURCE 05/27/2025 Drug Allergy/782507 002(SNOMED CT) hydrocodone/F006 919540(RXNORM) Hives Unknown [facility] 05/27/2025 Drug Allergy/845109 002(SNOMED CT) acetaminophen/F0 21722560(RXNORM) Hives Unknown [facility] 10/09/2019 DRUG~NON-CBORD /772697483(SNO MED CT) HYDROCODONE-ACET AMINOPHEN Hives [facility] DRUG/598496930 (SNOMED CT) Vicodin hives Mild (Qualifier Value) [facility] ENCOUNTERS ADMIT/DISCHARGE ACCOUNT NUMBER ADMITTING ENCOUNTER CLASS LOCATION SOURCE 06/10/2025/06/10/20 [id number] Ambulatory Building:M _JDIABETS [facility] 06/10/2025/06/10/20 [id number] Fibroscan, Temporary [facility] 05/21/2025/05/21/20 [id number] Ambulatory Building:[facility] 05/08/2025/05/08/20 [id number] Ambulatory Building:[facility] 04/28/2025/04/28/20 [id number] Ambulatory Building:[facility] 03/02/2025/03/02/20 [id number] Ambulatory PM [place]:PM Chris [facility] 02/06/2025/02/07/20 [id number] Ambulatory Building:[facility] 02/03/2025 [id number] [facility] 01/26/2025/01/27/20 [id number] Ambulatory Building:[facility] 12/22/2024/12/23/19 [id number] Ambulatory PM [place]:PM [facility] 12/08/2024/12/09/19 25 [id number] [facility] [facility]/03/[facility]24/11/03/19 [id number] Ambulatory Building:PF _LAB [facility] 10/27/2024/10/27/19 [id number] Ambulatory Building:[facility] 10/13/2024/10/13/19 [id number] Ambulatory PM [place]:PM [facility] 09/15/2024/09/15/19 25 [id number] Ambulatory Building:[facility] _MRI [facility] 09/15/2024/09/15/19 25 [id number] Ambulatory Building:[facility] 09/01/2024/09/01/20 24 [id number] Ambulatory PM [place]:PM [facility] 08/13/2024/08/13/20 24 [id number] [facility] 08/04/2024/08/04/20 24 [id number] Ambulatory Building:[facility] 07/04/2024/07/04/20 24 [id number] [facility] 06/16/2024/06/16/20 24 [id number] Ambulatory Building:[place] FUNCTIONAL STATUS No Functional Status Records Found EQUIPMENT No Equipment Records Found PAYERS ENCOUNTER GUARANTOR PAYER SUBSCRIBER SOURCE 06/10/2025 MARITA LUNATDOB: [id number] [place], [place] [address]Byc: (HP) Primary Insurance:AET[employer] MEDICARE PLAN (HMO)Policy Number: [id number] Date:2024-09-10 MARITA WAYNEARDTDOB: [id number] [place] [address] [facility] 06/10/2025 Secondary Insura nce:[place] MEDICAIDPolicy Number: [id number] Date:2019-08-25 MARITA ALARCON ROSANAARDTDOB: [id number] [place] [address] [facility] 06/10/2025 Marita Jo [address] [place] [address], [place] [address]Bga: (HP) Primary Insurance:[employer]etna [facility] PFFSPolicy Number: [id number] Date:[id number] [facility] [address]JJ: Marita Jo MagitDOB: [id number] [place] [address]Pff: (HP) [facility] 06/10/2025 Secondary Insurance:MedicaidPoli cy Number: [id number] Date:2025-05-27 Marita Jo MayuriDOB: [id number] [place] [address]Sco: (HP) [facility] 06/10/2025 Tertiary Insurance:Self PayPolicy Number: Effective Date:2025-05-27 [facility]25 MARITA MAYURIDOB: [place], [place] [address]Wqh: (HP) Primary Insurance:[place] Number: [id number] Date:2022-03-10 MARITA LUNATDOB: [id number] [place] [address] [facility] EPIC 05/21/2025 Secondary Insurance:AETNA MEDICARE ADVANTAGEPolicy Number: [id number] Date:2024-09-10 MARITA LUNATDOB: [id number] [place] [address] [facility] EPIC 05/08/2025 MARITA LUNATDOB: [place], [place] [address]Cqi: (HP) Primary Insurance:[place]ID [place] Number: [id number] Date:2022-03-10 MARITA LUNATDOB: [id number] [place] [address] [facility] EP[facility] 05/08/2025 Secondary Insurance:AETNA MEDICARE ADVANTAGEPolicy Number: [id number] Date:2024-09-10 MARITA LUNATDOB: [id number] [place] [address] [facility] EPIC 04/28/2025 MARITA LUNATDOB: [place], [place] [address]Biv: (HP) Primary Insurance:[place]ID [place] Number: [id number] Date:2022-03-10 MARITA LUNATDOB: [id number] [place] [address] [facility] EPIC 04/28/2025 Secondary Insurance:AETNA MEDICARE ADVANTAGEPolicy Number: [id number] Date:2024-09-10 MARITA LUNATDOB: [id number] [place] [address] [facility] EPIC 03/02/2025 Marita Alarcon RosanaardtDOB: [place] [address]Piw: (HP) Primary Insurance:AetnaPolicy Number: Effective Date:3387-57-07Hzzn Name:MEDP [address]WgNADEEM Magdaleno [address]TE: Marita Alarcon RosanaardtDOB: [id number] [place] [address]~[email or web address] [facility] 03/02/2025 Secondary Insurance:MedicaidPoli cy Number: Effective Date:8257-72-33Gjxi Name:MEDCP [address], [place] [address]RF: Marita Alarcon MayuriDOB: [id number] [place] [address]~[email or web address]: (WP) [facility] 02/06/2025 MARITA MAYURIDOB: [place], [place] [address]App: (HP) Primary Insurance:MED[place]ID [place]Policy Number: [id number] Date:2022-03-10 MARITA MAYURIDOB: [id number] [place] [address] [facility] 02/06/2025 Secondary Insurance:AETNA MEDICARE ADVANTAGEPolicy Number: [id number] Date:2024-09-10 MARITA MAYURIDOB: [id number] [place] [address] [facility] 02/03/2025 Marita Alarcon MagitD[place]: [place] [address]Wan: (HP) Primary Insurance:AetnaPolicy Number: Effective Date:6359-88-03Iqme Name:MEDP [address]Ox[place] Magdal[place] [address]OA: Marita WayneardtDOB: [id number] [place] [address]~[email or web address] [email or web address] 02/03/2025 Secondary Insurance:MedicaidPoli cy Number: Effective Date:8927-92-27Swyy Name:MED [address], [place] [address]TR: Marita WaynerantDOB: [id number] [place] [address]~[email or web address]: (WP) [facility] 01/26/2025 MARITA LUNATDOB: [place], [place] [address]Dwo: (HP) [place] Insurance:[place] Number: [id number] Date:2022-03-10 MARITA LUNATDOB: [id number] [place] [address] [facility] 01/26/2025 Secondary Insurance:AETNA MEDICARE ADVANTAGEPolicy Number: [id number] Date:2024-09-10 MARITA LUNATDOB: [id number] [place] [address] [facility] 12/22/2024 Marita WayneardtDOB: [place] [address]Mxt: (HP) Primary Insurance:AetnaPolicy Number: Effective Date:9453-83-36Mbpe Name:MEDP [address] [place] [address]HH: Marita WayneardtDOB: [id number] [place] [address]~[email or web address] [email or web address] 12/22/2024 Secondary Insurance:MedicaidPoli cy Number: Effective Date:3660-12-86Ztix Name:[facility] [address] [address]QA: Marita WaynerantDOB: [id number] [place] [address]~[email or web address]: (WP) [facility] 12/08/2024 Martia WaynerantDOB: [place] [address]Rio: (HP) Primary Insurance:AetnaPolicy Number: Effective Date:9116-35-76Ehtl Name:[facility] [address], [place] [address]KO: Marita Alarcon MagitDOB: [id number] [place] [address]~[email or web address] [email or web address] 12/08/2024 Secondary Insurance:MedicaidPoli cy Number: Effective Date:7521-20-63Qldo Name:[facility] [address], [place] [address]YF: Marita BusbymaritDOB: [id number] [place]IM[address] [facility]DFREMM[facility] [place] [address]~[email or web address]: (WP) [facility] 11/03/2024 MARITA WAYNERANTDOB: [place], [place] [address]Srq: (HP) Primary Insurance:AETNA MEDICARE PLAN (HMO)Policy Number: [id number] Date:2024-09-10 MARITA BUSBYSHREEDOB: [id number] JIMMY [facility]ER[facility] [address] [place] [address] 11/03/2024 [place] Insura nce:[place] MEDICAIDPolicy Number: [id number] Date:2019-08-25 MARITA LUNATDOB: [id number] [place] [address] [facility] 10/27/2024 MARITA LUNATDOB: [place], [place] [address]Exn: (HP) Primary Insurance:MEDICAID [place]Policy Number: [id number] Date:2022-03-10 MARITA LUNATDOB: [id number] [place] [address] [facility] 10/27/2024 Secondary Insurance:AETNA MEDICARE ADVANTAGEPolicy Number: [id number] Date:2024-09-10 MARITA MESSINADOB: [id number] [place] [address] [facility] 10/13/2024 Marita WayneardtDOB: [place] [address]Rlj: (HP) Primary Insurance:AetnaPolicy Number: Effective Date:1068-96-15Sdcw Name:COMP [address] [place] [address]GE: Marita WayneardtDOB: 6958-89-99QCK960 [place] [address]~[email or web address] [email or web address] 10/13/2024 Secondary Insurance:MedicaidPoli cy Number: Effective Date:6324-44-84Pdac Name:MEDCP [address], [place] [address]BX: Marita LunatDOB: 1545-58-06QZC111 [place] [address]~[email or web address]: (WP) [facility] 09/15/2024 MARITA LUNATDOB: [place], [place] [address]Bfq: (HP) [place] Insurance:[place] MEDICAIDPolicy Number: [id number] Date:2019-08-25 MARITA WAYNEARDTDOB: [id number] [place] [address] [facility] 09/15/2024 Secondary Insurance:[facility] MEDICARE PLAN (HMO)Policy Number: [id number] Date:2024-09-10 MARITA LUNATDOB: [id number] [place] [address] [facility] 09/15/2024 MARITA LUNATDOB: [place], [place] [address]Zvc: (HP) Primary Insurance:MED[place]ID [place]Policy Number: [id number] Date:2022-03-10 MARITA LUNAAmyDOB: [id number] [place] [address] [facility] 09/15/2024 Secondary Insurance:AETNA MEDICARE ADVANTAGEPolicy Number: [id number] Date:2024-09-10 MARITA LUNAAmyDOB: [id number] [place] [address] [facility] 09/01/2024 Marita Alarcon KehindekevinardtDOB: RobbieRashaun TAMEZ [facility] [place], [place] [address]Dxt: (HP) Primary Insurance:MedicarePoli cy Number: Effective Date:6522-93-32Ksnv Name:SARITALEXII [address], [place] [address]QC: Marita Adriana MessinaDOB: 5626-93-91FCO892 [place] [email or web address]: (WP) [facility] 09/01/2024 Secondary Insurance:MedicaidPoli cy Number: Effective Date:8124-54-73Bhew Name:[facility] [address], [place] [address]SJ: Marita Alarcon RosanaardtDOB: 6754-61-78MXB570 [place] [address]~[email or web address]: (WP) [facility] 08/13/2024 Marita Alarcon MagitDOB: [place], [place] [address]Vnf: (HP) Primary Insurance:MedicarePoli cy Number: Effective Date:2215-02-44Bwvn Name:[facility] [address], [place] [address]XK: Marita Alarcon MagitDOB: 8449-18-15RPG665 [place] [email or web address]: (WP) [facility] 08/13/2024 Secondary Insurance:MedicaidPoli cy Number: Effective Date:0440-40-91Mvct Name:[facility] [address] [place] [address]MH: Marita BusbymaritDOB: 7999-38-24VKC644 [place] [address]~[email or web address]: (WP) [facility] 08/04/2024 MARITA WAYNERANTDOB: [place], [place] [address]Ixp: (HP) Primary Insurance:MEDICAREPoli cy Number: [id number] Date:8341-08-31Ruda Name:Medicare MARITA BUSBYFLORINAB: [id number] [place] [address] [facility] 08/04/2024 Secondary Insurance:MEDICAID [place]Policy Number: [id number] Date:2022-03-10 MARITA LUNATDOB: [id number] [place] [address] [facility] 07/04/2024 MARITA WAYNEARDTDOB: [place], [place] [address]Yca: (HP) Primary Insurance:MEDICARE PART A & BPolicy Number: [id number] Date:2019-08-10 MARITA LUNATDOB: [id number] [place] [address] [facility] 07/04/2024 [place] Insura nce:[place] MEDICAIDPolicy Number: [id number] Date:2019-08-25 MARITA LUNATDOB: [id number] [place] [address] [facility] 06/16/2024 MARITA WAYNEARDTDOB: [place], [place] [address]Ubu: (HP) Primary Insurance:MEDICAREPoli cy Number: [id number] Date:2922-86-50Mlii Name:Medicare STEPHANIE ECKHARDTDOB: [id number] [place] [address] [facility] 06/16/2024 Secondary Insurance:MED[place]ID [place] Number: [id number] Date:2024-03-03 MARITA LUNATDOB: [id number] [place] [address] [facility] EPIC SOCIAL HISTORY No Social History Records Found FAMILY HISTORY No Family History Records Found ADVANCE DIRECTIVES No Advanced Directives Records Found INFORMATION SOURCE DATE CREATED AUTHOR AUTHOR'S JOSE HERRERA 06/11/2025 OHIP
--- NOTE | 2025-06-11 11:15 | PM.CN ---
Consult Note: HPI Data of Consult Patient: known to practice within the last 3 years Consult date: 06/11/25 Requesting Physician: Michelle Randhawa NP Primary Care Provider: CAITLYN SPARROW Consult Narrative Reason for consult: neck, bilateral shoulder pain Narrative: Marita Messina a pleasant 39 year old female presents for evaluation of chronic neck pain secondary to DDD, disc bulge, cervical facet arthropathy persistent >12 months unresponsive to heat, ice, tylenol, NSAIDs, >6 weeks of PT/HEP. utilizing tens 3x/week with mild relief, gabapentin, motrin, flexeril. denies side effects. Pain today 6/10 increasing to 10/10 with twisting, bending neck, lifting, activity. Has noted headaches worsening for the last 3 weeks. cc:: CC: Michelle Randhawa NP Review of Systems ROS Musculoskeletal Reports: neck pain PFSH PFSH Medical History Anxiety ?F41.9 - Anxiety disorder, unspecified (ICD-10) Hiatal hernia ?K44.9 - Diaphragmatic hernia without obstruction or gangrene (ICD-10) Acid reflux ?K21.9 - Gastro-esophageal reflux disease without esophagitis (ICD-10) Pulmonary embolism ?I26.99 - Other pulmonary embolism without acute cor pulmonale (ICD-10) Asthma ?J45.909 - Unspecified asthma, uncomplicated (ICD-10) Surgical History History of surgical removal of Bartholin’s gland cyst ?Z98.890 - Other specified postprocedural states (ICD-10) ?Z87.42 - Personal history of other diseases of the female genital tract (ICD-10) History of eye surgery ?Z98.890 - Other specified postprocedural states (ICD-10) [place] teeth extracted ?K08.409 - Partial loss of teeth, unspecified cause, unspecified class (ICD-10) History of hernia repair ?Z98.890 - Other specified postprocedural states (ICD-10) ?Z87.19 - Personal history of other diseases of the digestive system (ICD-10) History of hysterectomy ?Z90.710 - Acquired absence of both cervix and uterus (ICD-10) Meds Home Medications and Allergies Home Medications ?Medication ?Instructions ?Recorded ?Confirmed ?Type albuterol sulfate 90 mcg/actuation 2 puff inhalation Q6H PRN 06/22/23 03/02/25 History aerosol inhaler shortness of breath or wheezing buspirone 15 mg tablet 15 mg PO BID 06/22/23 03/02/25 History cariprazine 3 mg capsule (Vraylar) 6 mg PO DAILY 06/22/23 03/02/25 History fluoxetine 40 mg capsule (Prozac) 40 mg PO DAILY 06/22/23 03/02/25 History omeprazole 20 mg capsule,delayed 40 mg PO BID 06/22/23 03/02/25 History release propranolol 20 mg tablet 20 mg PO Q12H 06/22/23 03/02/25 History rizatriptan 5 mg tablet 5 mg PO Q2H PRN migraine headache 06/22/23 03/02/25 History evolocumab 140 mg/mL subcutaneous 140 mg subcut 09/01/24 History syringe (Repatha Syringe) tirzepatide (weight loss) 2.5 2.5 mg subcut QWEEK 10/13/24 03/02/25 History mg/0.5 mL subcutaneous pen injector (MetaModixpbound) cyclobenzaprine 10 mg tablet 10 mg PO TID PRN muscle spasm #90 02/11/25 03/02/25 Rx tabs gabapentin 600 mg tablet 600 mg PO BID #60 tabs 02/11/25 03/02/25 Rx Allergies Allergy/AdvReac Type Severity Reaction Status Date / Time hydrocodone (From Vicodin) Allergy Hives Verified 03/02/25 10:08 Exam Constitutional Documenting provider has reviewed patient's vital signs: yes Common normals: no apparent distress, oriented x3, healthy appearing, alert and well nourished General appearance: cooperative HENMT Common normals: normocephalic, hearing grossly normal bilaterally and moist oral mucous membranes Head and scalp: normocephalic Eye Common normals: PERRL Pupil: PERRL Neck & C-Spine Common normals: full ROM General: normal visual inspection Cervical spine: cervical ROM abnormal, pain with cervical ROM and trapezius muscle tenderness; no cervical spine tenderness Other: decreased sensation bilateral C5,6 strength 4/5 in BUE negative facet loading diffuse myofascial pain Chest Common normals: inspection of chest normal Respiratory Common normals: normal respiratory effort, no retractions and no use of accessory muscles Neuro Common normals: oriented x3 Sensorium/orientation: alert Psych Common normals: mental status grossly normal, thought process normal, cooperative, affect normal, speech normal and activity/motor behavior normal Speech: normal speech Thought process: normal thought process Results Additional Findings Additional findings: If on a controlled substance or opioids, I have checked an [place] report on this patient and there are no aberrancies noted in the prescribing history.??If on a controlled substance or opioid a drug screen was completed and reviewed within the last year, and if there has not been a drug screen completed we ordered one today to monitor higher risk, state monitored pain medication use. As part of providing excellent, safe, comprehensive care, the following was completed at our patient's visit: 1. A medication reconciliation and review to ensure accurate knowledge of current/active medications, including asking our patients to inform us about any utiz-tvf-ygruolj medications or herbal remedies/nutritional supplements/alternative remedies. 2. A review to specifically ensure our patients have had annual screening for screening for depression, screening for tobacco use, and screening for unhealthy alcohol use. For concerning screenings had a discussion with the patient, provided patient education, and recommended follow-up with primary care provider when appropriate. If patient noted with a risk of falling, they received education on strength, gait, and balance training to prevent future risk of falling. Portions of this note may have been carried over from the previous visit and updated as appropriate. Please note this office utilizes paper charting in addition to the electronic medical record. A list of current medications, vitals, and PMH is available there as the clinical staff outside of myself do not have access to [employer] charting during the clinic day operations. As part of providing quality comprehensive care the current medications, vitals, and PMH were reviewed in the paper chart. Assessment and Plan Assessment and Plan (1) Degenerative disc disease, cervical: (2) Cervical radiculopathy: (3) Bulging of cervical intervertebral disc: (4) Myofascial pain syndrome: Plan The patient has had over 3 months of moderate to severe neck and bilateral shoulder pain with functional impairment and inadequate response to conservative care including NSAIDS (unless there are contraindication such as concurrent blood thinners), multiple oral or topical pain medications, and home exercise program/physical therapy.? Patient has completed >6 weeks of guided home exercise program and/or formal physical therapy program without relief of their symptoms.? I have reviewed the imaging of the cervical spine and no red flags were identified.? The imaging reveals radiographic findings consistent with cervical DDD, bulging disc, cervical radiculopathy The Oswestry Disability Index was completed, and the patient scored a 16%.? bilateral C5-6 TFESI under fluoroscopy for cervical ddd, cervical disc bulge, cervical radiculopathy dc flexeril start tizanidine 4-8mg TID PRN pain/spasms/headaches continue gabapentin 600mg BID continue TENS prn continue otc ibuprofen prn continue HEP as tolerated f/u 2 weeks after TFESI
== END 2025-06-11 10:56 | disposition home or self-care (01) ==
LOC: PM 10:56
PROVIDERS: PCP Internal Medicine; Visit Provider Nurse Practitioner
DX: M50.30 Other cervical disc degeneration, unspecified cervical region (principal); M54.12 Radiculopathy, cervical region; M79.18 Myalgia, other site
CPT/HCPCS: G0463

== ENCOUNTER 2025-08-03 10:04 | Day surgery (SDC) | payer MEDICARE, MEDICAID, SELFPAY ==
--- OUTSIDE RECORDS SUMMARY | 2025-07-22 05:58 | XMS_ITS | Continuity of Care Document ---
Author Organization [facility] Address [address] [place] [address] Phone Care Team Providers Care Pot Fluxer Name Role Phone Jo-Ann Cuevas MD Primary Care Pr ovider Woodrow Valentino APRN Attending Provider Fibroscan, Temporary Other Provider Unavailable Woodrow Valentino APRN Referring Provider Tico Amador MD Attending Provider [phone] Care Teams Patient Care Team Team Status: Active Member Role/Relationship Status Dates Jo-Ann Carlson MD Primary Care Provide r Active Visit Care Team Team Status: Inactive Member Role/Relationship Status Dates Jo-Ann Carlson MD Primary Care Provider Active Start: May 112024 End: May 27, 2025Woodrow Valentino APRNAttending ProviderActiveStart: May 27, 2025 End: May 27, 2025 Visit Care Team Team Status: Active Member Role/Relationship Status Dates Jo-Ann Carlson MD Primary Care Provider Active Start: June Temporary FibroscanOther ProviderActiveStart: June 10, 2025 Woodrow Valentino APRNReferring ProviderActiveStart: June 10, 2025 Tico Amador MDAttending ProviderActiveStart: June 10, 2025 Patient Care Team Team Status: Inactive Member Role/Relationship Status Dates Jo-Ann Carlson MD Primary Care Provider Active Start: July 222024 End: July 22, 2025Nathaniel Webster ProviderActiveStart: July 22, 2025 End: July 22, 2025 Chief Complaint and Reason for Visit Chief Complaint Admit Date Referred by Jo-Ann Carlson: fatty liver May 27, 2025 8:35am fatty liver June 10, 2025 8: 49am K76.0 July 22, 2025 8:02am Reason for Visit Admit Date Elevated LFTs May 27, 2025 8:35am Fatty liver May 27, 2025 8:35am Hyperlipidemia May 27, 2025 8:35am Obesity (BMI 30-39.9) May 27 8:35am Allergies, Adverse Reactions, Alerts Allergen Type Severity Reaction Last Updated Verified Status hydrocodone Allergy Unknown hives July 22, 2025 8:25am Y es Active Social History Smoking Status Status Start Date End Date Date of Observa tion Smokes tobacco daily (finding) May 27, 2025 8:53am Observation Status Observation Response Date of Response Legal Sex Female (finding) [facility] Family History Relationship Condition Age at Onset Recorded Date/T kwadwo father Diabetes mellitus Unknown HypertensionUnknownDepressionUnknownFamily history of mental disorderUnknown Problems Active Problems Problem Diagnosis/Recorded Date Onset Date Stat Bipolar 1 disorder, depressed May 27, 2025 7:5 3am Unknown Active Fatty liver May 27, 2025 7:40am Unknown Active Elevated LFTs May 27, 2025 8:15am Unknown Active Hyperlipidemia May 27, 2025 8:15am Unknown Active Obesity (BMI 30-39.9) May 27, 2025 9:43am Unkn own Active Medications Medication Status Dose Units Route Directions Qty Days Refills S tart Date Stop Date End Date Reason(s) Instructions Adherence Tirzepatide (Weight Loss) (Z epbound) 10 mg/0.5 mL pen injector Active 10 MG SUBCUT every week July 22, 2025 12:00amComplies with drug therapyFluoxetine 40 mg capsule Elofdn46DJCKQszsyZlquqklaw 16th, 2025 11:00pmComplies with drug therapy Cyclobenzaprine 10 mg nabdukCdjhhu69JCMGNqjun times dailySept2024 11:00pmComplies with drug therapyGabapentin 600 mg fcguhuWibidh882CQKBScmsb dailySept2024 11:00pmComplies with drug therapyBuspirone 30 mg sqsegxYlcvzg65GYEZRvupj dailySept2024 11:00pmComplies with drug therapyOmeprazole 20 mg capsule,delayed release(DR/EC)Tajocl28RVJRYveloIwhkuinwv 16th, 2025 11:00pmComplies with drug therapyPropranolol 20 mg ssxwtfObwlfa37OYNX OnceSept2024 11:00pmComplies with drug therapyFluticasone Propionate 50 mcg/actuation spray,suspensionActiveINTRANASALSept2024 11:00pm UnknownBudesonide-Formoterol (Symbicort) 160-4.5 mcg/actuation HFA aerosol lshvgwtKjojqahxvnzi1AUPQLCMFXLOTLGabas dailySept2024 11:00pm May 27, 2025 7:52amBudesonide-Formoterol 160-4.5 mcg/actuation HFA aerosol inhalerActiveINHALATIONSept2024 11:00pmUnknownEvolocumab (Repatha Sureclick) 140 mg/mL pen injectorActiveMGSUBCUTSeptember 2024 11:00pmUnknownCariprazine (Vraylar) 6 mg tbogzsqAatfkh0OLRZDewarIefpbiayf 16th, 2025 11:00pmComplies with drug therapyTirzepatide (Weight Loss) (Zepbound) 12.5 mg/0.5 mL pen injectorDiscontinuedMGSUBCUTSeptember 2024 11:00pmNov2024 8:26am Procedures Procedure Date Performed Status US needle biopsy July 22, 2025 8:09am acti ve Relevant Diagnostic Tests and/or Laboratory Data Laboratory Results Test Collection Date/Time Result Date/Time Result Interpretation Reference Range Result Comment Performing Site Platelet Count July 22, 2025 8:20am July 8:36am 276 10*3/uL 150-450[facility] [id number] [address] [facility] [address]Mycyqjxrdjf TimeJuly 22, 2025 8:20amNove2024 8:40am10.9 s9.0-12.9A hematocrit value greater than 55% may lead to inaccurate results in coagulation testing. Patientshaving hematocrit values >55% require a special collection tube for coagulation studies. Please contact the laboratory at [phone] for redraw instructions.[facility] [id number] [address] [facility] [address]Vixzoqtak Time International RatioN2024 8:20am July 22, 2025 8:40am1.0INR Therapeutic Range A) Pre- and Peroperative OAT started two weeks before surgery. NOT HIP SURGERY: 1.5 - 2.5 HIP SURGERY: 2 - 3B) Primary and secondary prevention of venous THROMBOSIS: 2 - 3C) Active venous thrombosis, pulmonary embolismand prevention of recurrent venous thrombosis: 2 - 3D) Prevention of arterial thromboembolismincluding patients with mechanical heart valves: 3 - 4.5[facility] [id number] [address] [facility] [facility] [address] Vital Signs Vital Reading Result Reference Range Collection Date/Time Height 62 [in_i] May 27, 2025 7:33saEnbcnz37.99 kgSept2024 7:45amHeart Rate90 /oip92-870Vnblyaumz 17th, 2025 7:45amBP Jmaynwrl526 mm[Hg]100-140Se2024 7:45amBP Aamlnuxti12 mm[Hg]60-100Sept2024 7:45amBMI (Body Mass Index)35.4 kg/l6Dkrsqjkvk2024 7:45zoXqrzdq18 [in_i]July 22, 2025 8:19zkKbhfkf84.18 kgJuly 22, 2025 8:24amHeart Rate76 /aeg27-192 July 22, 2025 10:40amRespiratory rate18 /opn37-95Qplljmlv2024 10:40amOxygen saturation by Pulse fzyniyxr959 %95-100July 22, 2025 10:40am BP Lyryedqs455 mm[Hg]100-140July 225 10:40amBP Ithtozvhf59 mm[Hg] 60-100[facility] 2024 10:40am Advance Directives Advance Directive Response Recorded Date/ Time Advance Directives No May 10:27am Insurance Providers Guarantor Marita Messina Address [address] [address]Nwkmpna Info.Home Phone: Coverage Status Update:2025 Payer Group Member ID Coverage Type Subscriber Relationship to Subscriber Effective Date Expiration Date Medicaid [id number] B Eckhardt Id: [id number] [address] [address] Home Phone: Email: [email or web address] Id: [id number] B Eckhardt Id: [id number] [address] [address] Home Phone: Email: [email or web address] Encounters Encounter Location(s) Arrival/Admit Date Discharge/Departure Date Discharge/Departure Disposition Provider(s) Departed Physician/ Provider Office Visit -[facility] May 27, 2025 8:35am May 27, 2025 9:16am Discharged to home care or self care (routine discharge) Woodrow Valentino APRN Non-patient / Non-visit -[facility] Octob er 2024 8:49am Tico Amador , MDDeparted Surgical [facility] 2024 8:02amNovember 2024 10:57amDischarged to home care or self care (routine discharge)Woodrow Valentino APRN Recent Diagnosis Onset Date Admit Date Elevated LFTs Unknown May 27, 2025 8:35am Fatty liver Unknown May 27, 2025 8:35am Hyperlipidemia Unknown May 27, 2025 8:35am Obesity (BMI 30-39.9) Unknown May 27, 2025 8:35am Assessments Diagnosis Onset Date Resolution Status Admit Date Elevated LFTs acuteSept2024 8:35amFatty liveracuteSept2024 8:35am HyperlipidemiaacuteSept2024 8:35amObesity (BMI 30-39.9)acute May 27, 2025 8:35am Plan of Treatment Author Woodrow Valentino [facility] Center[facility] 9:52am- Order labs to further workup potential underlying infectious, autoimmune, metabolic etiologies of liver disease. - Order FibroScan to better quantify degree of hepatic steatosis and hepatic fibrosis. - Patient currently on GLP-1 for weight loss that is being managed by PCP. ??? Patient educated on the importance of ETOH abstinence. ??? Incorporation of Mediterranean diet. ??? Adults need at least 150 minutes of moderate-intensity physical activity a week, such as 30 minutes a day, 5 days a week. 5-10% weight loss if BMI>25. -Follow-up in office post FibroScan to discuss laboratory and imaging findings. Will move forward with Reapryldiffra treatment if patient meets inclusion criteria. Future Tests Future scheduled test information is unavailable Pending Tests Pending diagnostic test information is unavailable Future Visits Future appointment information is unavailable Future Procedures Procedure Name Ordered Date Scheduled Date Discharge Order July 22, 2025 10:04am Maame will 2024 10:04am Future Medications Future medication information is unavailable Patient Instructions Instruction Admit Date [facility] Liver Biopsy Disch arge Instructions [facility] 8:02am
--- OUTSIDE RECORDS SUMMARY | 2025-07-29 13:15 | XMS_ITS | Encounter Summary ---
Author Organization [facility] Address [address] [place] [address] Care Team Providers Care Supervisor Cytology Name Role Phone Jo-Ann Carlson MD Primary Care Provider [phone] Jo-Ann Carlson MD Unavailable [phone] Dorcas Peralta NP Unavailable [phone] Reason for Visit * ReasonCommentsFungal nail FUVSpawel Messina is a 39 y.o. female. Established patient presents today for 3 month fungal nail fuv. Patient relates no change, she has stopped Formula 7, 2 weeks ago when she ran out. Patient continues to use listerine daily. Encounter Details DateTypeDepartmentCare Team (Latest Contact Info)Pclljipragc14/19/2025 1:15 PM ESTOffice Visit [facility] [address] [place] [phone] Aiden Maria, DPTunde [address] [place], [place] [phone] Dermatophytosis of nail (Primary Dx); Dystrophic nail; Pain around toenail, right foot; Pain around toenail, left foot Social History Tobacco UseTypesPacks/DayYears UsedDateSmoking Tobacco: Every DaySmokeless Tobacco: Never Comments:Vapes daily Alcohol UseStandard Drinks/WeekCommentsYes3 (1 standard drink = 0.6 oz pure alcohol)caffeine intake: 12 oz coffee [id number] Health LiteracyAnswerDate RecordedHow often do you need [...] relatives?Once a week09/14/2024How often do you attend congregation or adventist services?Never09/14/2024Do you belong to any clubs or organizations such as congregation groups, unions, fraOswego Mega Center or athletic groups, or school groups?No 09/14/2024How often do you attend meetings of the clubs or organizations you belong to?Never09/14/2024re you , , , , never , or living with a partner?Eecekocq83/05/2025UDIT-CAnswerDate Recorded Q1: How often do you have [...] care, and heating?Somewhat hard09/14/2024PHQ-2AnswerDate RecordedPatient Health Questionnaire-2 Ppcbt093Finamerican [facility] hospital [place] of Occupational Health - Occupational Stress QuestionnaireAnswerDate [...] were you homeless or living in a prison (including now)?No09/14/2024CommentsUnknownSex and Gender InformationValueDate RecordedSex Assigned at BirthNot on fileLegal Sex Dxjnqa5711/22/2022 7:35 PM EDTGender IdentityNot on fileSexual OrientationNot on filedocumented as of this encounter Last Filed Vital Signs Vital SignReadingTime TakenCommentsBlood Pressure--Pulse--Temperature-- Respiratory Rate--Oxygen Saturation--Inhaled Oxygen Concentration--Qkcyzs36.2 kg (190 lb)07/29/2025 1:07 PM WFPXagurd704.5 cm (5' 2 )07/29/2025 1:07 PM ESTBody [...] nottaking: Reported on 06/26/2025), Disp: , Rfl: [place]-3 Fatty Acids (FISH OIL OMEGA-3 PO), Take [...] Plan of Treatment DateTypeDepartmentCare Team (Latest Contact Info)Senzqtalpqb72/19/2026 1:15 PM ESTOffice Visit [facility] [address] [place] [phone] Aiden Maria DPM [address] [place], [place] [address] documented as of this encounter Visit Diagnoses Diagnosis Dermatophytosis of nail- Primary Dystrophic nail Other specified disease of nail Pain around toenail, right foot Pain around toenail, left foot documented in this encounter Additional Health Concerns AssessmentNoted TimePQ-9 Depression Total Score: 101 1:35 PM EDT documented as of this encounter Care Teams Team MemberRelationshipSpecialtyStart DateEnd Date Jo-Ann Carlson MD [address] [facility] [place] [address] PCP - GeneralFamily Medicine05/09/24 Jo-Ann Carlson MD [address] [facility] [place] [address] PCP - Aet[employer]09/10/24 Dorcas Peralta NP [address] [facility] [place] [address] Nurse PractitionerFamily Medicine02/06/25documented as of this encounter
--- OUTSIDE RECORDS SUMMARY | 2025-08-03 10:12 | XMS_ITS | Encounter Summary ---
Author Organization [facility] Healthcare Address [address] [place] [address] Care Team Providers Care Ornamental Iron Worker Apprentice Name Role Phone Jo-Ann Carlson MD Primary Care Provider [phone] Jo-Ann Carlson MD Unavailable [phone] Dorcas Peralta NP Unavailable [phone] Encounter Details DateTypeDepartmentCare Team (Latest Contact Info)Heyfciivlbg40/12/2025bstract [facility] Family Medicine [address] [place] [phone] Jo-Ann Carlson MD [address] [place] [address] Social History Tobacco UseTypesPacks/DayYears UsedDateSmoking Tobacco: Every DaySmokeless Tobacco: Never Comments:Vapes daily Alcohol UseStandard Drinks/WeekCommentsYes3 (1 standard drink = 0.6 oz pure alcohol)caffeine intake: 12 oz coffee [id number] Health LiteracyAnswerDate RecordedHow often do you need [...] relatives?Once a week09/14/2024How often do you attend presybeterian or mormon services?Never09/14/2024Do you belong to any clubs or organizations such as presybeterian groups, unions, fraternal or athletic groups, or school groups?No 09/14/2024How often do you attend meetings of the clubs or organizations you belong to?Never09/14/2024re you , , , , never , or living with a partner?Swwbygxb91/05/2025UDIT-CAnswerDate Recorded Q1: How often do you have [...] care, and heating?Somewhat hard09/14/2024PHQ-2AnswerDate RecordedPatient Health Questionnaire-2 Upbsw150Finogden regional medical center [place] of Occupational Health - Occupational Stress QuestionnaireAnswerDate [...] were you homeless or living in a group home (including now)?No09/14/2024CommentsUnknownSex and Gender InformationValueDate RecordedSex Assigned at BirthNot on fileLegal Sex Hluzvs2111/22/2022 7:35 PM EDTGender IdentityNot on fileSexual OrientationNot on filedocumented as of this encounter Plan of Treatment DateTypeDepartmentCare Team (Latest Contact Info)Aqpchuqtvsv06/19/2026 1:15 PM ESTOffice Visit [facility] [address] [place] [address] Aiden Maria DPM [address] [place] [address] documented as of this encounter Visit Diagnoses Not on filedocumented in this encounter Additional Health Concerns AssessmentNoted TimePHQ-9 Depression Total Score: 101 1:35 PM EDT documented as of this encounter Care Teams Team MemberRelationshipSpecialtyStart DateEnd Date Jo-Ann Carlson MD [address] [place] [address] PCP - GeneralFamily Medicine05/09/24 Jo-Ann Carlson MD [address] [place] [address] PCP - Aetna09/10/24 Dorcas Peralta NP [address] [place] [address] Nurse PractitionerFamily Medicine02/06/25documented as of this encounter
--- OUTSIDE RECORDS SUMMARY | 2025-08-03 10:12 | XMS_ITS | Encounter Summary ---
Author Organization [facility] Address [address] [place] [address] Care Team Providers Care Family Helper Name Role Phone Jo-Ann Carlson MD Primary Care Provider [phone] Jo-Ann Carlson MD Unavailable [phone] Dorcas Peralta NP Unavailable [phone] Encounter Details DateTypeDepartmentCare Team (Latest Contact Info)Yikjsjhckpp86/19/2025Travel Social History Tobacco UseTypesPacks/DayYears UsedDateSmoking Tobacco: Every DaySmokeless Tobacco: Never Comments:Vapes daily Alcohol UseStandard Drinks/WeekCommentsYes3 (1 standard drink = 0.6 oz pure alcohol)caffeine intake: 12 oz coffee [id number] Health LiteracyAnswerDate RecordedHow often do you need [...] relatives?Once a week09/14/2024How often do you attend confucianist or sikh services?Never09/14/2024Do you belong to any clubs or organizations such as confucianist groups, unions, fraternal or athletic groups, or school groups?No 09/14/2024How often do you attend meetings of the clubs or organizations you belong to?Never09/14/2024re you , , , , never , or living with a partner?Bnfkkyiz86/05/2025UDIT-CAnswerDate Recorded Q1: How often do you have [...] care, and heating?Somewhat hard09/14/2024PHQ-2AnswerDate RecordedPatient Health Questionnaire-2 Kxhrw941Fingarfield memorial hospital [place] of Occupational Health - Occupational Stress QuestionnaireAnswerDate [...] were you homeless or living in a fpc (including now)?No09/14/2024CommentsUnknownSex and Gender InformationValueDate RecordedSex Assigned at BirthNot on fileLegal Sex Ceyyhn9711/22/2022 7:35 PM EDTGender IdentityNot on fileSexual OrientationNot on filedocumented as of this encounter Plan of Treatment DateTypeDepartmentCare Team (Latest Contact Info)Swccrbcygyi61/19/2026 1:15 PM ESTOffice Visit [facility] [address] [place] [phone] Aiden Maria DPM [address] [place] [address] documented as of this encounter Visit Diagnoses Not on filedocumented in this encounter Additional Health Concerns AssessmentNoted TimePHQ-9 Depression Total Score: 101 1:35 PM EDT documented as of this encounter Care Teams Team MemberRelationshipSpecialtyStart DateEnd Date Jo-Ann Carlson MD [address] [place] [address] PCP - GeneralFamily Medicine05/09/24 Jo-Ann Carlson MD [address] [place] [address] PCP - Aetna09/10/24 Dorcas Peralta NP [address] [place] [address] Nurse PractitionerFamily Medicine02/06/25documented as of this encounter
--- OUTSIDE RECORDS SUMMARY | 2025-08-03 10:12 | XMS_ITS | Encounter Summary ---
Author Organization [facility] Healthcare Address [address] [place] [address] Care Team Providers Care Train Conductor Name Role Phone Jo-Ann Carlson MD Primary Care Provider [phone] Jo-Ann Carlson MD Unavailable [phone] Dorcas Peralta NP Unavailable [phone] Encounter Details DateTypeDepartmentCare Team (Latest Contact Info)Eirhfqhwbmr27/20/2025bstract [facility] Family Medicine [address] [place] [phone] Jo-Ann Carlson MD [address] [place] [address] Social History Tobacco UseTypesPacks/DayYears UsedDateSmoking Tobacco: Every DaySmokeless Tobacco: Never Comments:Vapes daily Alcohol UseStandard Drinks/WeekCommentsYes3 (1 standard drink = 0.6 oz pure alcohol)caffeine intake: 12 oz coffee [id number] Health LiteracyAnswerDate RecordedHow often do you need [...] relatives?Once a week09/14/2024How often do you attend sabianist or pentecostal services?Never09/14/2024Do you belong to any clubs or organizations such as sabianist groups, unions, fraternal or athletic groups, or school groups?No 09/14/2024How often do you attend meetings of the clubs or organizations you belong to?Never09/14/2024re you , , , , never , or living with a partner?Imisniuj47/05/2025UDIT-CAnswerDate Recorded Q1: How often do you have [...] care, and heating?Somewhat hard09/14/2024PHQ-2AnswerDate RecordedPatient Health Questionnaire-2 Snodg229Finsanpete valley hospital [place] of Occupational Health - Occupational Stress QuestionnaireAnswerDate [...] were you homeless or living in a longterm (including now)?No09/14/2024CommentsUnknownSex and Gender InformationValueDate RecordedSex Assigned at BirthNot on fileLegal Sex Jpkxwk7811/22/2022 7:35 PM EDTGender IdentityNot on fileSexual OrientationNot on filedocumented as of this encounter Plan of Treatment DateTypeDepartmentCare Team (Latest Contact Info)Kdtxtbtqjik61/19/2026 1:15 PM ESTOffice Visit [facility] [address] [place] [address] Aiden Maria DPM [address] [place] [address] documented as of this encounter Visit Diagnoses Not on filedocumented in this encounter Additional Health Concerns AssessmentNoted TimePHQ-9 Depression Total Score: 101 1:35 PM EDT documented as of this encounter Care Teams Team MemberRelationshipSpecialtyStart DateEnd Date Jo-Ann Carlson MD [address] [place] [address] PCP - GeneralFamily Medicine05/09/24 Jo-Ann Carlson MD [address] [place] [address] PCP - Aetna09/10/24 Dorcas Peralta NP [address] [place] [address] Nurse PractitionerFamily Medicine02/06/25documented as of this encounter
--- OUTSIDE RECORDS SUMMARY | 2025-08-03 10:12 | XMS_ITS | Encounter Summary ---
Author Organization [facility] Address [address] [place] [address] Care Team Providers Care Rail Project Engineer Name Role Phone Jo-Ann Carlson MD Primary Care Provider [phone] Jo-Ann Carlson MD Unavailable [phone] Dorcas Peralta NP Unavailable [phone] Encounter Details DateTypeDepartmentCare Team (Latest Contact Info)Eqvhajgkcsa79/19/2025Bamboo flowsheet [facility] [address] [place] [phone] Aiden Maria DPM [address] [place], [place] [phone] Social History Tobacco UseTypesPacks/DayYears UsedDateSmoking Tobacco: Every DaySmokeless Tobacco: Never Comments:Vapes daily Alcohol UseStandard Drinks/WeekCommentsYes3 (1 standard drink = 0.6 oz pure alcohol)caffeine intake: 12 oz coffee [id number] Health LiteracyAnswerDate RecordedHow often do you need [...] relatives?Once a week09/14/2024How often do you attend restorationism or confucianist services?Never09/14/2024Do you belong to any clubs or organizations such as restorationism groups, unions, fraternal or athletic groups, or school groups?No 09/14/2024How often do you attend meetings of the clubs or organizations you belong to?Never09/14/2024re you , , , , never , or living with a partner?Mslgpttc80/05/2025UDIT-CAnswerDate Recorded Q1: How often do you have [...] care, and heating?Somewhat hard09/14/2024PHQ-2AnswerDate RecordedPatient Health Questionnaire-2 Ygwnn958Fintimpanogos [facility] [place] of Occupational Health - Occupational Stress QuestionnaireAnswerDate [...] were you homeless or living in a senior living (including now)?No09/14/2024CommentsUnknownSex and Gender InformationValueDate RecordedSex Assigned at BirthNot on fileLegal Sex Tobtll6411/22/2022 7:35 PM EDTGender IdentityNot on fileSexual OrientationNot on filedocumented as of this encounter Plan of Treatment DateTypeDepartmentCare Team (Latest Contact Info)Zsarbymhhfz70/19/2026 1:15 PM ESTOffice Visit [facility] [address] [place] [phone] Aiden Maria DPM [address] [place] [address] documented as of this encounter Visit Diagnoses Not on filedocumented in this encounter Additional Health Concerns AssessmentNoted TimePHQ-9 Depression Total Score: 101 1:35 PM EDT documented as of this encounter Care Teams Team MemberRelationshipSpecialtyStart DateEnd Jo-Ann Carlson MD [address] [facility] [place] [address] PCP - GeneralFamily Medicine05/09/24 Jo-Ann Carlson MD [address] [facility] [place] [address] PCP - Aetna09/10/24 Dorcas Peralta NP [address] [facility] [place] [address] Nurse PractitionerFamily Medicine02/06/25documented as of this encounter
--- OUTSIDE RECORDS SUMMARY | 2025-08-03 10:12 | XMS_ITS | Encounter Summary ---
Author Organization [facility] Healthcare Address [address] [place] [address] Care Team Providers Care Wafer Fabricator Name Role Phone Jo-Ann Carlson MD Primary Care Provider [phone] Jo-Ann Carlson MD Unavailable [phone] Dorcas Peralta NP Unavailable [phone] Reason for Visit * ReasonOnset DateCommentsneurology yfrnwruq65/10/2025 Encounter Details DateTypeDepartmentCare Team (Latest Contact Info)Aezvphzhrfn63/10/2025Telephone [facility] Family Medicine [address] [place] [address] Jo-Ann Carlson MD [address] [place] [address] neurology referral Social History Tobacco UseTypesPacks/DayYears UsedDateSmoking Tobacco: Every DaySmokeless Tobacco: Never Comments:Vapes daily Alcohol UseStandard Drinks/WeekCommentsYes3 (1 standard drink = 0.6 oz pure alcohol)caffeine intake: 12 oz coffee segyjO3425 Health LiteracyAnswerDate RecordedHow often do you need [...] relatives?Once a week09/14/2024How often do you attend yarsani or mandaeism services?Never09/14/2024Do you belong to any clubs or organizations such as yarsani groups, unions, fraternal or athletic groups, or school groups?No 09/14/2024How often do you attend meetings of the clubs or organizations you belong to?Never09/14/2024re you , , , , never , or living with a partner?Rklomxxs56/05/2025UDIT-CAnswerDate Recorded Q1: How often do you have [...] care, and heating?Somewhat hard09/14/2024PHQ-2AnswerDate RecordedPatient Health Questionnaire-2 Xkxgw170Fin[facility] hospital [place] of Occupational Health - Occupational Stress QuestionnaireAnswerDate [...] you from medical appointments or from getting medications?No01/05/2025In the past 12 months, has lack of [...] RecordedSex Assigned at BirthNot on fileLegal Sex Ewgdjn2211/22/2022 7:35 PM EDTGender IdentityNot on fileSexual OrientationNot on filedocumented as of this encounter Miscellaneous Notes * Telephone Encounter - Roslyn Goins MA - 07/20/2025 3:55 PM EST Can you update referral please. * Telephone Encounter - ORIANA TALBERT - 07/20/2025 2:06 PM EST Quintin calling from Dr. Caraballo's office, they received referral from Dorcas Peralta. Per Quintin, they cannot accept this referral due to being out of network with her insurance. Referral will need sent to different neurologist. I questioned this since we are both with [facility] and we take patients insurance. Per Quintin it is the patient's particular [employer] Medicare Plan -[employer]na Medicare Assure - that they are out of network with. documented in this encounter Plan of Treatment DateTypeDepartmentCare Team (Latest Contact Info)Qngnpfqzupf93/19/2026 1:15 PM ESTOffice Visit [facility] [address] [place] [address] Aiden Maria, JOSE [address] [place] [address] documented as of this encounter Visit Diagnoses Not on filedocumented in this encounter Additional Health Concerns AssessmentNoted TimePHQ-9 Depression Total Score: 101 1:35 PM EDT documented as of this encounter Care Teams Team MemberRelationshipSpecialtyStart DateEnd Date Jo-Ann Carlson MD [address] [place], [place] [phone] PCP - GeneralFamily Medicine05/09/24 Jo-Ann Carlson MD [address] [place], [place] [address] PCP - Aetna09/10/24 Dorcas Peratla NP [address] [place], [place] [address] Nurse PractitionerFamily Medicine02/06/25documented as of this encounter
--- OUTSIDE RECORDS SUMMARY | 2025-08-03 10:13 | XMS_ITS | Clinical Summary ---
Author Organization [facility] Address [address], [address] [place] [address] Care Team Providers Care Binding Bench Worker Name Role Phone Unavailable Primary Care Provider Unavailabl e Allergies Active AllergyReactionsCriticalityNoted DateCommentsHydrocodone-Acetaminophen 11/10/2019 Medications MedicationSigDispense QuantityRefillsLast FilledStart DateEnd DateStatus FLUoxetine (PROZAC) 40 MG capsule Take 40 mg by mouth dailyActive omeprazole (PRILOSEC) 20 MG delayed release capsule Take 40 mg by mouth dailyActive propranolol (INDERAL) 10 MG tablet Take 10 mg by mouth 2 times dailyActive perphenazine 2 MG tablet Take 2 mg by mouth 2 times dailyActive primidone (MYSOLINE) 250 MG tablet Take 250 mg by mouth 2 times daily Morning and at nightActive cyclobenzaprine (FLEXERIL) 5 MG tablet Take 5 mg by mouth 2 times daily as needed for Muscle spasmsActive rizatriptan (MAXALT) 5 MG tablet Take 5 mg by mouth once as needed for Migraine May repeat in 2 hours if needed Active melatonin 3 MG TABS tablet Take 10 mg by mouth daily Take 10 mg at bedtimeActive traZODone (DESYREL) 50 MG tablet Take 50 mg by mouth nightly As needed at bedtimeActive levothyroxine (SYNTHROID) 75 MCG tablet Take 75 mcg by mouth DailyActive Erenumab-aooe (AIMOVIG SC) Indications:injection unknown does streghthInject into the skin Indications: injection unknown does streghthActive enoxaparin (LOVENOX) 30 MG/0.3ML injection Inject 30 mg into the skin dailyActive Family History Medical HistoryRelationNameCommentsDiabetesFatherObesityFatherCancerMother RelationNameStatusCommentsFatherMother Social History Tobacco UseTypesPacks/DayYears UsedDateSmoking Tobacco: NeverSmokeless Tobacco: NeverAlcohol UseStandard Drinks/WeekCommentsYes0 (1 standard drink = 0.6 oz pure alcohol)socialCommentsUnknownSex and Gender InformationValueDate RecordedSex Assigned at BirthNot on fileLegal EytDksbia36/19/2020 8:37 AM EST Gender IdentityNot on fileSexual OrientationNot on file Last Filed Vital Signs Vital SignReadingTime TakenCommentsBlood Kfgqemzn515/65011/10/2019 2:27 PM EST Pulse--Vulttcjuljs22.4 ??C (97.6 ??F)11/10/2019 2:27 PM ESTRespiratory Rate-- Oxygen Muymuwoatj17%11/10/2019 2:27 PM ESTInhaled Oxygen Concentration--Weight 90.7 kg (200 lb)11/10/2019 2:27 PM DXJLrgtgp875 cm (5' 3 )11/10/2019 2:27 PM EST Body Mass Index35.43011/10/2019 2:27 PM EST Plan of Treatment Not on file Insurance
--- OUTSIDE RECORDS SUMMARY | 2025-08-03 10:13 | XMS_ITS | Clinical Summary ---
Author Organization [employer] tem Address [id number] [address] [place] [address] Care Team Providers Care Electrophysiology Technologist Name Role Phone Jo-Ann Carlson MD Primary Care Provider [phone] Allergies Active AllergyReactionsCriticalityNoted DateCommentsHydrocodone-Acetaminophen Hives10/09/2019 Medications MedicationSigDispense QuantityRefillsLast FilledStart DateEnd DateStatus FLUoxetine (PROzac) 40 MG capsule Take 1 capsule (40 mg total) by mouth in the morning.Active rizatriptan (MAXALT) 5 mg tablet rizatriptan 5 mg jtubnl1711/25/2018Active propranoloL (INDERAL) 20 mg tablet Take 1 tablet (20 mg total) by mouth in the morning and 1 tablet (20 mg total) before bedtime.Active AIMOVIG AUTOINJECTOR 140 mg/mL auto-injector every 30 (thirty) days.02/05/2020Active cariprazine (VRAYLAR) 4.5 mg capsule Take 1 capsule (4.5 mg total) by mouth in the morning.Active albuterol (PROVENTIL HFA;VENTOLIN HFA) 90 mcg/actuation inhaler Inhale 2 puffs every 6 (six) hours as needed for wheezing.Active budesonide-formoteroL (SYMBICORT) 160-4.5 mcg/actuation inhaler Inhale 2 puffs in the morning and 2 puffs before bedtime.Active omeprazole (PriLOSEC) 40 mg capsule 1 capsule (40 mg total) in the morning and at bedtime. 60 capsule 2Active Additional Information Patient taking differently: 20 mg Daily, Reported on 05/05/2024 ondansetron ODT (ZOFRAN ODT) 4 mg disintegrating tablet Dissolve 1 tablet (4 mg total) on tongue every 8 (eight) hours as needed for nausea for up to 10 doses. 10 tablet 3Active cyclobenzaprine (FLEXERIL) 10 mg tablet Take 1 tablet (10 mg total) by mouth 2 (two) times a day as needed for muscle spasms.Active evolocumab (REPATHA SURECLICK) 140 mg/mL pen injector Inject 140 mg under the skin every 14 (fourteen) days. 6 mL 5Active tirzepatide, weight loss, (ZEPBOUND) 12.5 mg/0.5 mL pen injector Inject 12.5 mg under the skin every 7 days.Active omega 1-byl-bnu-fish oil (Fish OiL) 60-90-500 mg capsule Take 2 capsules by mouth in the morning.Active Active Problems ProblemNoted DateDiagnosed PzawUrdosqjmokebmr78/02/2024Severe obesity (BMI 35.0- 39.9) with chiethnrfve01/27/2022Gastroesophageal reflux disease without kikypfyknzq16/16/2022bstructive sleep apnea awibhmdl39/16/2022besity, Class II, BMI 35-39.902Other ohdqinf2902/23/2022 Encounters DateTypeDepartmentCare SviiAhxanlxdkxr27/01/2025 11:00 AM EDTClinical Support [facility] - [facility] Medication Management [address] [place] [address] Hyperlipidemia, unspecified hyperlipidemia type (Primary Dx)06/10/2025Travel 05/13/2025Telephone [facility] - Pharmacy Medication Management [address] [place] [address] Dee Webb MA 05/05/2025Refill [facility] [address] [place] [address] Yvonne Canela LPN Med Refillfrom Last 3 Months Family History Medical HistoryRelationNameCommentsDiabetesFatherHypertensionFatherAtrial fibrillationMaternal GrandmotherCOPDMaternal GrandmotherMelanomaMotherDiabetes Paternal GrandfatherHypertensionPaternal GrandfatherRelationNameStatusComments FatherAliveMaternal GrandfatherDeceasedMaternal GrandmotherAliveMotherAlive Paternal GrandfatherDeceased Social History Tobacco UseTypesPacks/DayYears UsedDateSmoking Tobacco: Every Day Vaping/E-cigarettesSmokeless Tobacco: Never Tobacco Cessation:Ready to Q uit: Not Asked; Counseling Given: Not Answered Alcohol UseStandard Drinks/WeekCommentsYes0 (1 standard drink = 0.6 oz pure alcohol)sociallyChildcareAnswerDate EancjujcAseshhofoWoqksjo08/12/2019Employment AnswerDate WqrskvuvDolafpneypBcjvcxk41/12/2019Hunger ScreeningAnswerDate RecordedWithin the past 12 months we worried whether our food would run out before we got money to buy more.Never True05/05/2024Within the past 12 months the food we bought just didn't last and we didn't have money to get more.Never True4Purpose - LifeAnswerDate RecordedPurpose and direction in life Sclmwti51/11/2021CommentsNoSex and Gender InformationValueDate Recorded Sex Assigned at BirthNot on fileLegal JtdBnedlt50/06/2015 11:32 AM EDTGender IdentityNot on fileSexual OrientationNot on file Last Filed Vital Signs Vital SignReadingTime TakenCommentsBlood Tsokzyoe221/7808 10:18 AM EDT Bdhgd542905/05/2024 10:18 AM NNUCxqkrsoqnou44 ??C (98.6 ??F)03/23/2024 11:25 PM EDTRespiratory Rqle277003/23/2024 11:25 PM EDTOxygen Khuywybbrw87%05/05/2024 10:18 AM EDTInhaled Oxygen Concentration--Bxzklr69.1 kg (192 lb)06/10/2025 11:21 AM UZPWyldrc469.5 cm (5' 2 )06/10/2025 11:21 AM EDTBody Mass Index35.121 11:21 AM EDT Plan of Treatment DateTypeDepartmentCare Team (Latest Contact Info)Jjpceetnofo71/08/2026 11:30 AM EDTClinical Support [facility] - [facility] Medication Management [address] [place] [address] Health MaintenanceDue DateLast DoneCommentsDTaP,Tdap and Td Vaccines (6 - Tdap) , 10/26/1987, 02/17/1987, Additional history exists Depression Mgxijruib81/07/1998Adult BMI Follow Up Plan2004COVID-19 Vaccine ( season)/Influenza Blfpjit53/01/2023, 05/15/2023, 07/13/2022, Additional history existsTobacco Mrkmtftrw92/09/2025 05/19/2024dult BMI Hhjrryved36 Medical Devices ImplantedTypeAreaManufacturerDevice IdentifierShelf Expiration DateModel / Serial / LotMesh Pco Vntrl Ptch 8.6cm Rpl [id number] - Sn/A - [id number] Implanted:Qty: 1 on 04/01/2019 by Luis A Gr [facility]: AbdomenMEDTRONIC [id number] / N/A / [id number] [place] [address] Care Teams Team MemberRelationshipSpecialtyStart DateEnd Date Jo-Ann Carlson MD [address] [place] [address] PCP - GeneralFamily Gsykyvbh07/11/24
--- OUTSIDE RECORDS SUMMARY | 2025-08-03 10:13 | XMS_ITS | Clinical Summary ---
Author Organization [facility] Address [address] [place] [address] Care Team Providers Care Gas Leak Inspector Name Role Phone Jo-Ann Carlson MD Primary Care Provider [phone] Jo-Ann Carlson MD Unavailable [phone] Dorcas Peralta NP Unavailable [phone] Allergies Active AllergyReactionsCriticalityNoted DateCommentsHydrocodone-Acetaminophen Hives10/09/2019 Vicodin Medications MedicationSigDispense QuantityRefillsLast FilledStart DateEnd DateStatus LORazepam (Ativan) 0.5 MG tablet Take 1 tablet by mouth every 6 (six) hours if neededActive FLUoxetine (PROzac) 40 MG capsule Take 1 capsule by mouth in the morning.Active busPIRone (Buspar) 30 MG tablet Take 1 tablet by mouth in the morning and 1 tablet before bedtime.Active gabapentin (Neurontin) 300 MG capsule Take 300 mg by mouth in the morning and 300 mg before bedtime.05/09/2024ctive cyclobenzaprine (Flexeril) 10 MG tablet Take 1 tablet by mouth as needed in the morning and 1 tablet as needed in the evening.Active Vraylar 6 MG capsule Take 1 capsule by mouth in the morning.Active ondansetron ODT (Zofran-ODT) 4 MG disintegrating tablet 4 mg every 8 (eight) hours if neededActive Repatha SureClick 140 MG/ML injection Inject 140 mg under the skin every 14 (fourteen) days06/10/2024ctive Durant-3 Fatty Acids (FISH OIL OMEGA-3 PO) Take 2 g by mouth in the morning and 2 g before bedtime. 2 g 2 tab bid. .Active hydrOXYzine pamoate (Vistaril) 50 MG capsule 50 mg as needed in the morning and 50 mg as needed in the evening.08/04/2024 Active rizatriptan (Maxalt) 5 MG tablet 5 mg 1 (one) time if neededActive traZODone (Desyrel) 50 MG tablet Take 50 mg by mouth at bedtimeActive propranolol (Inderal) 20 MG tablet Indications:TremorTAKE 1 TABLET BY MOUTH IN THE MORNING AND 1 TABLET BEFORE BEDTIME 180 tablet 5Active fluticasone (Flonase) 50 MCG/ACT nasal spray Indications:Nasal congestionAdminister 1 spray into each nostril Daily Shake gently. Before first use, prime pump. After use, clean tip and replace cap. 48 g 515Active budesonide-formoterol (Symbicort) 160-4.5 MCG/ACT inhaler Indications:Moderate persistent asthma without complication (HCC)Inhale 2 puffs in the morning and 2 puffs before bedtime. 32.4 g 5Active albuterol HFA 90 mcg/act inhaler Indications:Moderate persistent asthma without complication (HCC)Inhale 2 puffs every 6 (six) hours if needed for wheezing 18 g 5Active Tirzepatide-Weight Management (Zepbound) 10 MG/0.5ML solution Indications:Obstructive sleep apnea syndrome,Obesity, Class II, BMI 35-39.9 Inject 10 mg under the skin 1 (one) time per week 2 mL 5Active omeprazole (PriLOSEC) [address] capsule Indications:Gastroesophageal reflux disease without esophagitisTake 1 capsule (20 mg) by mouth in the morning. Take before meals. Do not crush or chew. 90 capsule 5Active omeprazole (PriLOSEC) [address] capsule Indications:Gastroesophageal reflux disease without esophagitisTAKE 1 CAPSULE(20 MG) BY MOUTH DAILY AT THE SAME TIME 90 capsule 5109/23/2024Discontinued(Reorder) Tirzepatide-Weight Management (Zepbound) 12.5 MG/0.5ML solution auto-injector Indications:Obstructive sleep apnea syndrome,Obesity, Class II, BMI 35-39.9 Inject 12.5 mg under the skin 1 (one) time per week 6 mL 108/51Discontinued(Dose adjustment) Active Problems ProblemNoted DateDiagnosed DateFatty liver06/26/2025Elevated LFTs06/26/2025 Bipolar 1 disorder, bknlrdedq11/17/2025Vapes nicotine containing substance 09/15/20241992Rcexvcylvyzpep85/02/2024 Assessment & Plan (05/08/2025 12:07 PM EDT): Orders: Lipid panel; Future Uwylciv1505/14/2024ipolar upysdlwv01/04/2024 Assessment & Plan (05/08/2025 12:07 PM EDT): -stable managed by psych Mtympgsvfz04/04/2048Bzbnyxhv97/04/2024 Assessment & Plan (05/08/2025 12:07 PM EDT): -stable with current regimen. Talebt5205/14/2024Other zliknai4902/23/2022besity, Class II, BMI 35-39.9002/23/2022 Assessment & Plan (05/08/2025 12:07 PM EDT): Orders: Comprehensive metabolic panel; Future Lipid panel; Future TSH W/REFLEX TO FT4; Future Tirzepatide-Weight Management (Zepbound) 12.5 MG/0.5ML solution auto-injector; Inject 12.5 mg underthe skin 1 (one) time per week -Down another 8 lbs since last visit, 27 lbs total. Increase zepbound. Encouraged healthy eating habits, increase physical exercise. Obstructive sleep apnea dnxcaadl91/16/2022 Assessment & Plan (05/08/2025 12:07 PM EDT): Orders: Tirzepatide-Weight Management (Zepbound) 12.5 MG/0.5ML solution auto-injector; Inject 12.5 mg underthe skin 1 (one) time per week - increase zepbound as she is tolerating it well. Mvvijg5812/08/2020 Assessment & Plan (05/08/2025 12:07 PM EDT): Orders: budesonide-formoterol (Symbicort) 160-4.5 MCG/ACT inhaler; Inhale 2 puffs in the morning and 2 puffs before bedtime. albuterol HFA 90 mcg/act inhaler; Inhale 2 puffs every 6 (six) hours if needed for wheezing Gastroesophageal reflux disease without tramrvtwzow17/31/2021 Encounters DateTypeDepartmentCare BucdSftkutsgqhu91/20/2025bstract [facility] [address] [place] [phone] Jo-Ann Carlson MD 07/29/2025 1:15 PM ESTOffice Visit General acute hospital Podiatry [address] [place] [address] Aiden Maria DPM Dermatophytosis of nail (Primary Dx); Dystrophic nail; Pain around toenail, right foot; Pain around toenail, left foot07/29/2025amboo flowsheet General acute hospital Podiatry [address] [place] [phone] Aiden Maria DPM 07/29/20253652Qxeovc29/14/2025Refill [facility] [address] [place] [phone] Jo-Ann Carlson MD Gastroesophageal reflux disease without mmvbvsinrnd36/12/2025Abstract [facility] [address] [place] [phone] Jo-Ann Carlson MD 07/20/2025Telephone [place] [address] [place] [phone] Jo-Ann Carlson MD neurology yhjhlekv72/05/2025Orders Only [place] [address] [place] [phone] Dorcas Peralta NP Transient neurological symptoms (Primary Dx); Dysarthria; BOGDAN (obstructive sleep apnea); Rkchvyitpas86/28/2025 9:00 AM EDTAncillary Procedure General acute hospital Imaging [address] [facility] [address] [place] [address] Dysarthria; Transient neurological kyymyzey89/28/9152Sarsxa12/20/2025Results Follow-Up [facility] [address] [facility] [place] [address] Dorcas Peralta NP Comprehensive metabolic panel, CBC and differential, Ferritin, Additional followed-up results: 1:30 PM EDTOffice Visit [facility] [address] [place] [address] Dorcas Peralta NP Restless leg syndrome (Primary Dx); Dysarthria; Transient neurological arbqsaxc22/17/2025amboo flowsheet [facility] [address] [place] [address] Dorcas Peralta NP 06/26/20257758Xlxwfm49/12/2025Orders Only [facility] [address] [place] [address] Jo-Ann Carlson MD Hepatic steatosis (Primary Dx)05/21/2025 8:30 AM EDTAncillary Procedure General acute hospital Imaging [address] [facility] [address] [place] [address] Elevated liver enzymes; Hepatic thjuhwice55/11/2025Results Follow-Up [facility] [address] [place] [address] Jo-Ann Carlson MD US LIVER05/21/2025Orders Only [facility] [address] [place] [address] Mary Lou Mchugh NP Hepatic steatosis (Primary Dx)05/21/20255241Xbsuta85/02/2025Orders Only [facility] [address] [place] [phone] Dorcas Peralta NP Bipolar affective disorder, remission status unspecified (HCC) (Primary Dx) 05/12/2025Orders Only [facility] [address] [facility] [place] [phone] Dorcas Peralta NP Elevated liver enzymes (Primary Dx); Hepatic nofbpmyce36/02/2025Results Follow-Up [place] [address] [facility] [place] [address] Mary Lou Mchugh NP Comprehensive metabolic panel, Lipid panel, TSH W/REFLEX TO FT4, Vitamin D 25 dweifig6005/08/2025 11:00 AM EDTOffice Visit [place] [address] [facility] [address] Dorcas Peralta NP Encounter for wellness examination (Primary Dx); Obstructive sleep apnea syndrome; Mixed hyperlipidemia ; Bipolar affective disorder, remission status unspecified (HCC); Obesity, Class II, BMI 35-39.9; Vitamin D deficiency; Nasal congestion; Moderate persistent asthma without complication (HCC); Intractable migraine without aura and without status migrainosus ; Gastroesophageal reflux disease without esophagitis; Hepatic steatosis; Spondylosis of cervical spine05/08/2025Refill [facility] [address] [place] [address] Nehal Alvarado LPN 05/08/2025Refill [place] [address] [facility] [phone] Jo-Ann Carlson MD 05/08/2025amboo flowsheet [place] [address] [facility] [address] Dorcas Peralta NP 05/08/20252689Pmxlye44/24/2025Refill [place] [address] [place] [phone] Dorcas Peralta NP Obstructive sleep apnea syndrome; Obesity, Class II, BMI 35-39.9from Last 3 Months Immunizations ImmunizationAdministration DatesNext UnqVDH0310/26/1987,02/17/1987,1986, 1986Hep B, Adolescent or Mnfbpayoa61/15/1998,12/24/1997,11/19/1997 Influenza, injectable, MDCK, preservative free, fjmhfaitharl72/03/2022Influenza, injectable, MDCK, vlsoxqhrrljj14/05/2023Influenza, injectable, quadrivalent 08/22/2019Influenza, injectable, quadrivalent, preservative free09/13/2021MMR 11/19/1997,10/26/1987OPV10/26/1987,02/17/1987,1986,1986Td (adult), wxrknbbqlca38/16/1998 Family History Medical HistoryRelationNameCommentsDiabetesFatherdavid EckhardtHyperlipidemia Fatherdavid EckhardtRelationNameStatusCommentsFatherdavid EckhardtAliveMother Alive Social History Tobacco UseTypesPacks/DayYears UsedDateSmoking Tobacco: Every DaySmokeless Tobacco: Never Tobacco Cessation:Ready to Q uit: Not Asked; Counseling Given: Not Answered Comments:Vapes daily Alcohol UseStandard Drinks/WeekCommentsYes3 (1 standard drink = 0.6 oz pure alcohol)caffeine intake: 12 oz coffee [id number] Health LiteracyAnswerDate RecordedHow often do you need [...] relatives?Once a week09/14/2024How often do you attend amish or buddhist services?Never09/14/2024Do you belong to any clubs or organizations such as amish groups, unions, fraternal or athletic groups, or school groups?No 09/14/2024How often do you attend meetings of the clubs or organizations you belong to?Never01/05/2025Are you , , , , never , or living with a partner?Usdrdiia16/05/2025UDIT-CAnswerDate Recorded Q1: How often do you have [...] care, and heating?Somewhat hard09/14/2024PHQ-2AnswerDate RecordedPatient Health Questionnaire-2 Rbkac492[facility] [place] of Occupational Health - Occupational Stress QuestionnaireAnswerDate [...] were you homeless or living in a usp (including now)?No09/14/2024CommentsUnknownSex and Gender InformationValueDate RecordedSex Assigned at BirthNot on fileLegal Sex Gmrbqg7711/22/2022 7:35 PM EDTGender IdentityNot on fileSexual OrientationNot on file Last Filed Vital Signs Vital SignReadingTime TakenCommentsBlood Lwfgxxvw376/7206/26/2025 1:36 PM EDT Dewzk207306/26/2025 1:36 PM EDTTemperature--Respiratory Rate--Oxygen Aqjqphvehf96% 06/26/2025 1:36 PM EDTInhaled Oxygen Concentration--Mxmgzg35.2 kg (190 lb) 07/29/2025 1:07 PM JIWAxvhsq781.5 cm (5' 2 )07/29/2025 1:07 PM ESTBody Mass Index34.7507/29/2025 1:07 PM EST Plan of Treatment DateTypeDepartmentCare Team (Latest Contact Info)Fkzyrfyezgh59/19/2026 1:15 PM ESTOffice Visit [facility] [place] [facility] [address] [place] [address] Aiden Maria, DPTunde [address] [place] [address] Health MaintenanceDue DateLast DoneCommentsPneumococcal Vaccine: Pediatrics (0 to 5 Years) and At-Risk Patients (6 to 64 Years) (1 of 2 - PCV)2005Pap Smear2007Cervical Cancer Onidegcgi20/07/2016HPV/Yqaeer7007/17/2016COVID-19 Vaccine (2 - 2024- season)Influenza Vaccine (#1)2026 05/15/2023, 07/13/2022, 09/13/2021, Additional history existsPostponed from 05/11/2025 (Patient Refused)Medicare Annual Wellness (AWV)6005/08/2025, 05/08/2025, 11/09/2023, Additional history exists Procedures Procedure NamePriorityDate/TimeAssociated DiagnosisCommentsMR BRAIN WO CONTRAST Etupghl0507/07/2025 9:41 AM EDT Dysarthria Transient neurological symptoms VITAMIN U42Odfhgsj10/17/2025 1:56 PM EDT Restless leg syndrome Dysarthria Transient neurological symptoms PVPCXILTGKqtprfz24/17/2025 1:56 PM EDT Restless leg syndrome Dysarthria Transient neurological symptoms TSH W/REFLEX TO RT3Wshuiew54/17/2025 1:56 PM EDT Restless leg syndrome Dysarthria Transient neurological symptoms FTWCGOKQUzddcag48/17/2025 1:56 PM EDT Restless leg syndrome Dysarthria Transient neurological symptoms CBC (INCLUDES DIFF/PLT)Tkrxqlx7606/26/2025 1:56 PM EDT Restless leg syndrome Dysarthria Transient neurological symptoms COMPREHENSIVE METABOLIC VBHITVwdqieg93/17/2025 1:56 PM EDT Restless leg syndrome Dysarthria Transient neurological symptoms US RHPFPGhlnkaa76/11/2025 9:01 AM EDT Elevated liver enzymes Hepatic steatosis STATUS COVID-19/RILPtwsimf48/29/2025 11:58 AM EDT Nasal congestion VITAMIN D 25 HYDROXY VYUIFVqbjerw79/29/2025 11:25 AM EDT Encounter for wellness examination Vitamin D deficiency TSH W/REFLEX TO XA4Lskfdiq45/29/2025 11:25 AM EDT Encounter for wellness examination Obesity, Class II, BMI 35-39.9 LIPID LOKGIImgltmg15/29/2025 11:25 AM EDT Encounter for wellness examination Mixed hyperlipidemia Obesity, Class II, BMI 35-39.9 COMPREHENSIVE METABOLIC DXSNOFuwzvtn94/29/2025 11:25 AM EDT Encounter for wellness examination Obesity, Class II, BMI 35-39.9 from Last 3 Months Results * MR brain wo contrast (07/07/2025 9:41 AM EDT)Anatomical RegionLaterality ModalityBrainMagnetic ResonanceSpecimen (Source)Anatomical Location / LateralityCollection Method / VolumeCollection TimeReceived Time07/07/2025 10:42 AM EDT Impressions 07/07/2025 10:44 AM EDT No acute intracranial process. ELECTRONICALLY SIGNED BY: Stanley Morrow DO Narrative 07/07/2025 10:44 AM EDT EXAM: MR BRAIN WO CONTRAST History: transient neurological symptoms Technique: Multiplanar multisequence MRI of the brain was performed without contrast. Comparison: None available Findings: Brain volume is age-appropriate. Ventricular morphology is within normal limits. No edema, hemorrhage, mass, mass effect, midline shift, or abnormal extra-axial fluid collection. ??Midline structuresare within normal limits. The posterior fossa is within normal limits. There is no diffusion restriction. No susceptibility artifact is identified on the gradient echo sequence. ?? The major intracranial vascular flow voids are maintained. Cranial nerve 7/8 complexes appear grossly unremarkable. ??The visualized paranasal sinuses and bilateral mastoid air cells are clear. Procedure Note Stanley Morrow DO - 07/07/2025 EXAM: MR BRAIN WO CONTRAST History: transient neurological symptoms Technique: Multiplanar multisequence MRI of the brain was performedwithout contrast. Comparison: None available Findings: Brain volume is age-appropriate. Ventricular morphology is within normallimits. No edema, hemorrhage, mass, mass effect, midline shift, orabnormal extra-axial fluid collection. Midline structures are withinnormal limits. The posterior fossa is within normal limits. There is no diffusion restriction. No susceptibility artifact isidentified on the gradient echo sequence. The major intracranial vascular flow voids are maintained. Cranial nerve7/8 complexes appear grossly unremarkable. The visualized paranasalsinuses and bilateral mastoid air cells are clear. IMPRESSION: No acute intracranial process. ELECTRONICALLY SIGNED BY: Stanley Morrow DO Authorizing ProviderResult TypeResult StatusDorcas Peralta NPIMG MRI PROCEDURES Final Result * TSH W/REFLEX TO FT4 (06/26/2025 1:56 PM EDT) Only the most recent of2 resultswithin the time period is included. ComponentValueRef RangeTest MethodAnalysis TimePerformed AtPathologist Signature TSH W/REFLEX TO FT41.07mIU/LQUESTComment: ?Reference Range ? > or = 20 Years 0.40-4.50 ? Ranges ?First trimester ?0.26-2.66 ?Second trimester ?? 0.55-2.73 ?Third trimester ?0.43-2.91 Specimen (Source)Anatomical Location / LateralityCollection Method / Volume Collection TimeReceived Time06/26/2025 1:56 PM EDT1 1:56 PM EDT Narrative Resulting Agency Comment Performing Organization Information ?Site ID: QPT ?Name: [facility] ?Address: [address] [place] [address], [address] [place] [phone] ?Director: Michael Dennis MD Authorizing ProviderResult TypeResult Claudia Peralta NPLAB BLOOD ORDERABLES Final ResultPerforming OrganizationAddressCity/State/ZIP CodePhone Number [facility] * (ABNORMAL) CBC and differential (06/26/2025 1:56 PM EDT)ComponentValueRef RangeTest MethodAnalysis TimePerformed AtPathologist SignatureWHITE BLOOD CELL COUNT3.83.8 - 10.8 Thousand/uLQUESTRED BLOOD CELL COUNT5.063.80 - 5.10 Million/sHSPDVOXGCGIDCWDZ36.3(H)11.7 - 15.5 g/sIIYAVLDSSQBOARSS39.3(H)35.0 - 45.0 %UDNTCPXQ70.580.0 - 100.0 gBZMTAHECD03.227.0 - 33.0 wdVCOQWUAPU80.732.0 - 36.0 g/dLQUESTComment: For adults, a slight decrease in the calculated MCHC value (in the range of 30 to 32 g/dL) is most likely not clinically significant; however, it should be interpreted with caution in correlation with other red cell parameters and the patient's clinical condition. RDW12.711.0 - 15.0 %QUESTPLATELET KUTIM445240 - 400 Thousand/gQLSPFTXFP04.57.5 - 12.5 fLQUESTABSOLUTE NEUTROPHILS2,3371,500 - 7,800 cells/uLQUESTABSOLUTE LYMPHOCYTES1,438461 - 3,900 cells/uLQUESTABSOLUTE OYEATJHOF430520 - 950 cells/uL QUESTABSOLUTE HCCTAKTAQTG3727 - 500 cells/uLQUESTABSOLUTE ZNFJRJUAK230 - 200 cells/iRCJRMJMVCHUBOTQSH74.5%KKZMYDVTUZGALWEF75.4%QUESTMONOCYTES7.4%QUEST EOSINOPHILS1.9%QUESTBASOPHILS0.8%QUESTSpecimen (Source)Anatomical Location / LateralityCollection Method / VolumeCollection TimeReceived TimeBloodVenous blood specimen / Puyvvjq9106/26/2025 1:56 PM EDT1 1:56 PM EDT Narrative Resulting Agency Comment Performing Organization Information ?Site ID: QPT ?Name: [facility] ?Address: [address] [place] [phone] ?Director: Michael Dennis MD Authorizing ProviderResult TypeResult StatusSalety Peralta [facility] BLOOD ORDERABLES Final ResultPerforming OrganizationAddressCity/State/ZIP CodePhone Number [facility] * Magnesium (06/26/2025 1:56 PM EDT)ComponentValueRef RangeTest MethodAnalysis TimePerformed AtPathologist SignatureMAGNESIUM2.01.5 - 2.5 mg/dLQUESTSpecimen (Source)Anatomical Location / LateralityCollection Method / VolumeCollection TimeReceived TimeBloodVenous blood specimen / Gulhfev4306/26/2025 1:56 PM EDT 06/26/2025 1:56 PM EDT Narrative Resulting Agency Comment Performing Organization Information ?Site ID: QPT ?Name: [facility] ?Address: [address], [address] [place] [phone] ?Director: Michael Dennis MD Authorizing ProviderResult TypeResult StatusSarah Kampfer NPLAB BLOOD ORDERABLES Final ResultPerforming OrganizationAddressty/State/ZIP CodePhone Number [facility] * Ferritin (06/26/2025 1:56 PM EDT)ComponentValueRef RangeTest MethodAnalysis TimePerformed AtPathologist TlmmjuoyeNQLQXTGP2173 - 154 ng/mLQUESTSpecimen (Source)Anatomical Location / LateralityCollection Method / VolumeCollection TimeReceived TimeBloodVenous blood specimen / Zaifmub6006/26/2025 1:56 PM EDT 06/26/2025 1:56 PM EDT Narrative Resulting Agency Comment Performing Organization Information ?Site ID: QPT ?Name: [facility] ?Address: [address], [address] [place] [phone] ?Director: Michael Dennis MD Authorizing ProviderResult TypeResult StatusSarah Kampfer NPLAB BLOOD ORDERABLES Final ResultPerforming [facility] CenterAddLe[facility] Hospital [facility] East Norwegian Streetty/[facility] CodePhone Number [facility] * Vitamin B12 (06/26/2025 1:56 PM EDT)ComponentValueRef RangeTest MethodAnalysis TimePerformed AtPathologist SignatureVITAMIN [id number] - 1,100 pg/mLQUEST Comment: Please Note: Although the reference range for vitamin B12 is 200-1100 pg/mL, it has been reported that between 5 and 10% of patients with values between 200 and 400 pg/mL may experience neuropsychiatric and hematologic abnormalities due to occult B12 deficiency; less than 1% of patients with values above 400 pg/mL will have symptoms. Specimen (Source)Anatomical Location / LateralityCollection Method / Volume Collection TimeReceived TimeBloodVenous blood specimen / Qvekpso4806/26/2025 1:56 PM EDT1 1:56 PM EDT Narrative Resulting Agency Comment Performing Organization Information ?Site ID: QPT ?Name: [facility] ?Address: [address], [address] [place] [phone] ?Director: Michael Dennis MD Authorizing ProviderResult TypeResult StatusSalety Emilianokiadanyell NPLAB BLOOD ORDERABLES Final ResultPerforming OrganizationAddressCity/State/ZIP CodePhone Number [facility] * (ABNORMAL) Comprehensive metabolic panel (06/26/2025 1:56 PM EDT) Only the most recent of2 resultswithin the time period is included. ComponentValueRef RangeTest MethodAnalysis TimePerformed AtPathologist Signature Zyefkwq5282 - 99 mg/dLQUESTComment: ? Fasting reference interval BUN87 - 25 mg/dLQUESTCreatinine0.860.50 - 0.97 mg/uXFHDGTIIZM00> OR = 60 mL/min/1.74o3PPNMJKNR/CREATININE RATIOSEE NOTE: (calc)QUESTComment: ?? Not Reported: BUN and Creatinine are within ?? reference range. ? Bgnfum641493 - 146 mmol/LQUESTPotassium, Bld4.13.5 - 5.3 mmol/QRINMMAftmmkte728 98 - 110 mmol/LQUESTCarbon Aebtlxl7438 - 32 mmol/LQUESTCalcium9.78.6 - 10.2 mg/dLQUESTPROTEIN, TOTAL6.86.1 - 8.1 g/dLQUESTALBUMIN4.93.6 - 5.1 g/dLQUEST GLOBULIN1.91.9 - 3.7 g/dL (calc)QUESTALBUMIN/GLOBULIN RATIO2.6(H)1.0 - 2.5 (calc)QUESTBILIRUBIN, TOTAL1.00.2 - 1.2 mg/dLQUESTALKALINE ANJGDOVHTJM0760 - 125 U/RJYEBKRCG19(H)10 - 30 U/NJJKOOGKZ47(H)6 - 29 U/LQUESTSpecimen (Source) Anatomical Location / LateralityCollection Method / VolumeCollection Time Received TimeBloodVenous blood specimen / Ehkdcgl2806/26/2025 1:56 PM EDT 06/26/2025 1:56 PM EDT Narrative Resulting Agency Comment Performing Organization Information ?Site ID: QPT ?Name: [facility] ?Address: [address] [place] [address], [address] [place] [address] ?Director: Michael Dennis MD Authorizing ProviderResult TypeResult StatusSalety Peralta [facility] BLOOD ORDERABLES Final ResultPerforming OrganizationAddressCity/State/ZIP CodePhone Number [facility] * US LIVER (05/21/2025 9:01 AM EDT)Anatomical RegionLateralityModalityAbdomen UltrasoundSpecimen (Source)Anatomical Location / LateralityCollection Method / VolumeCollection TimeReceived Time05/21/2025 3:11 PM EDT Impressions 05/21/2025 3:13 PM EDT Impression: Diffuse hepatic steatosis with focal fatty sparing near the gallbladder. ELECTRONICALLY SIGNED BY: Major Gutierrez MD Narrative 05/21/2025 3:13 PM EDT US LIVER History: Elevated liver enzymes. Technique: Sonography of the right upper quadrant was performed. Comparison: None RESULT: Pancreas: Normal sonographic appearance of the visualized portions. Liver: Increased echogenicity with decreased through-transmission, suggestive of steatosis. Area offocal fatty sparing near the gallbladder. No suspicious liver lesions. Gallbladder: Normal caliber without cholelithiasis, sludge, wall thickening, or pericholecystic fluid. Biliary Ducts: No intrahepatic or extrahepatic bile duct dilation. CBD measures 0.5 cm. Right Kidney: Imaged portions unremarkable. Ascites: None. Procedure Note Major Gutierrez MD - 05/21/2025 US LIVER History: Elevated liver enzymes. Technique: Sonography of the right upper quadrant was performed. Comparison: None RESULT: Pancreas: Normal sonographic appearance of the visualized portions. Liver: Increased echogenicity with decreased through-transmission,suggestive of steatosis. Area of focal fatty sparing near the gallbladder.No suspicious liver lesions. Gallbladder: Normal caliber without cholelithiasis, sludge, wallthickening, or pericholecystic fluid. Biliary Ducts: No intrahepatic or extrahepatic bile duct dilation. CBDmeasures 0.5 cm. Right Kidney: Imaged portions unremarkable. Ascites: None. IMPRESSION: Impression: Diffuse hepatic steatosis with focal fatty sparing near the gallbladder. ELECTRONICALLY SIGNED BY: Major Gutierrez MD Authorizing ProviderResult TypeResult StatusDorcas Peralta NPG US PROCEDURES Final Result * STATUS COVID-19/FLU (05/08/2025 11:58 AM EDT)ComponentValueRef RangeTest MethodAnalysis TimePerformed AtPathologist SignatureFLU A-FLU B-SARS COV 2 RNA -Specimen (Source)Anatomical Location / LateralityCollection Method / Volume Collection TimeReceived LvfjJwscqovmwggldo58/29/2025 11:58 AM EDT Narrative Authorizing ProviderResult TypeResult StatusSalety Peralta NPPOINT OF CARE TEST ENTER/EDIT ORDERABLESFinal Result * Vitamin D 25 hydroxy (05/08/2025 11:25 AM EDT)ComponentValueRef RangeTest MethodAnalysis TimePerformed AtPathologist SignatureVITAMIN D,25-OH,TOTAL,IA41 30 - 100 ng/mLQUESTComment: Vitamin D Status ? 25-OH Vitamin D: Deficiency: <20 ng/mL Insufficiency: ? 20 - 29 ng/mL Optimal: > or = 30 ng/mL For 25-OH Vitamin D testing on patients on D2-supplementation and patients for whom quantitation of D2 and D3 fractions is required, the QuestAssureD(TM) 25-OH VIT D, (D2,D3), LC/MS/MS is recommended: order code 01226 (patients >2yrs). See Note 1 Note 1 For additional information, please refer to http://education.Birthday Gorilla.[employer]/faq/HAA090 (This link is being provided for informational/ educational purposes only.) Specimen (Source)Anatomical Location / LateralityCollection Method / Volume Collection TimeReceived TimeBloodVenous blood specimen / Vparabo0505/08/2025 11:25 AM EDT05/08/2025 11:26 AM EDT Narrative Resulting Agency Comment Performing Organization Information ?Site ID: QPT ?Name: [facility] ?Address: [address] [place] [address], [address] [place] [id number] ?Director: Michael Dennis MD Authorizing ProviderResult TypeResult StatusDorcas Peralta NPLAB BLOOD ORDERABLES Final ResultPerforming OrganizationAddressCity/State/ZIP CodePhone Number [facility] * (ABNORMAL) Lipid panel (05/08/2025 11:25 AM EDT)ComponentValueRef RangeTest MethodAnalysis TimePerformed AtPathologist SignatureCHOLESTEROL, TYKLX189<200 mg/dLQUESTHDL TAGMUNZILWT67(L)> OR = 50 mg/vEEQHVDKUECPLMUECUYU535(H)<150 mg/dLQUESTLDL ZCLJTNANDRC19vn/dL (calc)QUESTComment: Reference range: <100 Desirable range <100 mg/dL for primary prevention; <70 mg/dL for patients with CHD or diabetic patients with > or = 2 CHD risk factors. LDL-C is now calculated using the Elver-Sarah calculation, which is a validated novel method providing better accuracy than the Friedewald equation in the estimation of LDL-C. Elver SS et al. ROBERT. 2013;310(19): 0564-5122 (http://education.Birthday Gorilla.[employer]/faq/LWN562) CHOL/HDLC RATIO2.4<5.0 (calc)QUESTNON HDL OFPKLKNAGSH99<130 mg/dL (calc)QUEST Comment: For patients with diabetes plus 1 major ASCVD risk factor, treating to a non-HDL-C goal of <100 mg/dL (LDL-C of <70 mg/dL) is considered a therapeutic option. Specimen (Source)Anatomical Location / LateralityCollection Method / Volume Collection TimeReceived TimeBloodVenous blood specimen / Lcbghug6305/08/2025 11:25 AM EDT05/08/2025 11:26 AM EDT Narrative Resulting Agency Comment Performing Organization Information ?Site ID: QPT ?Name: [facility] ?Address: [address] [place] [phone] ?Director: Michael Dennis MD Authorizing ProviderResult TypeResult StatusSalety Peralta TIARA BLOOD ORDERABLES Final ResultPerforming OrganizationAddressCity/State/ZIP CodePhone Number [facility] from Last 3 Months Insurance Care Teams Team MemberRelationshipSpecialtyStart Date Jo-Ann Carlson MD [address] [facility] [place] [address] PCP - GeneralFamily Medicine05/09/24 Jo-Ann Carlson MD [address] [place] [id number] PCP - [employer]09/10/24 Dorcas Peralta NP [address] [place] [address] Nurse PractitionerFamily Medicine02/06/25
--- OUTSIDE RECORDS SUMMARY | 2025-08-03 10:13 | XMS_ITS | Clinical Summary ---
Author Organization [facility] Address [address] [place] [address] Care Team Providers Care Polysom Tech Name Role Phone Linda Anderson Primary Care Provider Allergies No known active allergies Medications MedicationSigDispense QuantityRefillsLast FilledStart DateEnd DateStatus buPROPion SR (ZYBAN SR; WELLBUTRIN SR) 150 mg 12 hr tablet Active lithium carbonate ER 450 mg CR tablet Take 450 mg by mouth twice daily.Active Biotin 10,000 mcg cap Active Omeprazole 40 mg capsule take 1 capsule by mouth once daily as mgdecqig264/28/2019Active perphenazine 2 mg tablet Take 2 mg by mouth twice daily.Active FLUoxetine HCl (PROZAC) 40 mg capsule Take 40 mg by mouth once daily.Active baclofen (LIORESAL) 10 mg tablet Indications:Spasm of muscle,Neck muscle spasm,Excessive physiologic tremor, Hypertonia,Intractable migraine without aura and without status migrainosusTake 1 tablet by mouth three times daily. 90 tablet Active propranolol (INDERAL) 10 mg tablet Take 10 mg by mouth three times daily.Active primidone (MYSOLINE) 250 mg tablet Indications:Excessive physiologic tremortake 0.5 tablet every morning and 1 tablet every evening 45 tablet ctive rizatriptan (MAXALT) 5 mg tablet Indications:Intractable migraine without aura and without status migrainosusTake 1 tablet (5 mg) by mouth as needed. 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 30 tablet 4Active Encounters DateTypeDepartmentCare AcufLpralvagpys35/12/2025Lab Requisition [facility] [address] [place] [address] Woodrow Valentino NP Person encountering health services to consult on behalf of another personfrom Last 3 Months Family History Medical HistoryRelationCommentsDiabetesFatherborderlineHypertensionFather HeadachePaternal AuntDiabetesPaternal GrandfatherHeartPaternal Grandfather RelationStatusCommentsFatherPaternal AuntPaternal Grandfather Social History Tobacco UseTypesPacks/DayYears UsedDateSmoking Tobacco: NeverSmokeless Tobacco: NeverAlcohol UseStandard Drinks/WeekCommentsYes0 (1 standard drink = 0.6 oz pure alcohol)socialPHQ-2AnswerDate RecordedPHQ-2 elapn037/24/2022Area Deprivation IndexAnswerDate RecordedNational Score (1-100), lower number is lower riskNot on file08/19/2020State Score (1-10), lower number is lower riskNot on file 08/19/2020Data from: https://www.neighborhoodatlas.medicine.[facility].edu/. Last address used for calculationNot on file08/19/2020CommentsUnknownSex and Gender InformationValueDate RecordedSex Assigned at BirthNot on fileLegal Sex Zhikdg3810/17/2018 2:36 PM ESTGender IdentityNot on fileSexual OrientationNot on file Last Filed Vital Signs Vital SignReadingTime TakenCommentsBlood Vncjdxrv126/7708 3:25 PM EDT Adblh942504/21/2019 3:25 PM EDTTemperature--Respiratory Opln585904/21/2019 3:25 PM EDTOxygen Udmuwsaexr78%04/21/2019 3:25 PM EDTInhaled Oxygen Concentration-- Bttfsa78.3 kg (174 lb 14.4 oz)04/21/2019 3:25 PM MFUOccbtg595.5 cm (5' 2 ) 04/21/2019 3:25 PM EDTBody Mass Index31.9908 3:25 PM EDT Plan of Treatment Health MaintenanceDue DateLast DoneCommentsDTaP,Tdap,Td Vaccine (6 - Tdap) , 10/26/1987, 02/17/1987, Additional history existsAnxiety Hralvrkzh02/07/2004Depression Fetemmndf47/07/2004HIV Wrmtvugew63/07/2004 Hepatitis C Okqmezips71/07/2004Cervical Cancer Omyppcewn88/07/2007HPV Vaccine (1 - 3-dose SCDM series)2013Covid-19 Vaccine ( season)2025 Influenza Vaccine (#1)Hepatitis B VaccineCompleted 05/25/1998, 12/24/1997, 11/19/1997 Procedures Procedure NamePriorityDate/TimeAssociated DiagnosisCommentsSURGICAL PATHOLOGY Ufkcbkj4907/22/2025 9:30 AM EST Person encountering health services to consult on behalf of another person from Last 3 Months Results * SURGICAL PATHOLOGY (07/22/2025 9:30 AM EST)ComponentValueRef RangeTest Method Analysis TimePerformed AtPathologist SignatureCase ReportSurgical Pathology Report ? Case: [id number] ? Authorizing Provider: ??Woodrow Valentino NP ??Collected: ? 07/22/2025 09:30 AM ? Ordering Location: ? [facility] ?Received: ?07/22/2025 11:12 PM ? [facility] ? Pathologist: ? Lauren Bertrand MD ? Specimen: ?Liver, Biopsy, random liver biopsy ([id number]) ? 07/23/2025 1:11 PM [facility] LABFINAL DIAGNOSISA. Liver, biopsy -Mild macrovesicular steatosis (30%) with scattered balloon cells - Early delegate bridging fibrosis on trichrome stain - See qfhjbvj8507/23/2025 1:11 PM [facility] at 1311 ESTDiagnosis CommentThe biopsy is comprised of 4 cores of hepatic parenchyma. There is mild macrovesicular steatosis (30%) with scattered balloon cells and rare Shonda hyalin identified. A trichrome stain highlights portal and periportal fibrosis with early delicate bridging noted across the sample. There is mild patchy lobular inflammation and mild portal inflammation noted. The iron stain is negative for hepatocyte iron accumulation. The PAS/diastase is negative for diagnostic inclusions. NAFLD Activity Score (VALENTINE): Steatosis: 1 (5-33%) Lobular inflammation (foci per 20x field): 1(<2) Hepatocyte Balloonin (Few) Total Score: 3/8 Stage: 3 (bridging) Other features: Shonda Hyaline positive Other forms of chronic liver disease: None Reference: Serina DE, Sarithat EM, et al. Hepatology 41(6):1313-21, 2005. 07/23/2025 1:11 PM [facility] LABGross DescriptionA. Liver, Biopsy Received in formalin on Telfa gauze are multiple segments of cylindrical tissue aggregating to 1.9 x 0.4 x 0.1 cm, izquierdo and of a soft and friable consistency. Totally submitted in one cassette. DB July 23, 2025 3:45 AM Gross examination performed at [facility], [address] [place] [address], [place], [place] [address]/23/2025 1:11 PM [facility] LABClinical HistoryFatty liver, hyperlipidemia, elevated liver enzymes.07/23/2025 1:11 PM [facility] LABPerforming LabDiagnostic interpretation performed at: [facility], [address] [place] [address] [id number] CLIA# [id number] Cardiovascular Or Nurse: Bliar Aldridge MD 07/23/2025 1:11 PM [facility] LABDisclaimerLaboratory Developed Test (LDT) Disclaimer: Performance characteristics of immunohistochemical, immunofluorescent, and chromogenic in-situ hybridization tests have been determined by the performing laboratory within the [facility] Department of Pathology and Laboratory Medicine ([facility], [facility], [facility], [facility], [facility], [facility], or [facility]) in a manner consistent with CLIA requirements. One or more of these tests may not have been cleared or approved by the FDA. The [facility] Department of Pathology and Laboratory Medicineis regulated under CLIA as qualified to perform high-complexity testing. These tests are used for clinical purposes. These should not be regarded as investigational or for research. Positive and negative controls stain appropriately.07/23/2025 1:11 PM EST [facility] LABSpecimen (Source)Anatomical Location / Laterality Collection Method / VolumeCollection TimeReceived TimeTissueLIVER BIOPSY SPECIMEN / Ajpurgb7807/22/2025 9:30 AM EST07/22/2025 11:12 PM EST Narrative Authorizing ProviderResult TypeResult StatusDernils Valentino NPSURGICAL PATHOLOGYFinal ResultPerforming OrganizationAddressCity/State/ZIP CodePhone Number [address] [address], from Last 3 Months Insurance Care Teams Team MemberRelationshipSpecialtyStart DateEnd Linda Mina NPNarciso: [phone] [address] [place] [address] PCP - GeneralInternal Medicine11/25/18
--- OUTSIDE RECORDS SUMMARY | 2025-08-03 10:13 | XMS_ITS | Encounter Summary ---
Author Organization [facility] Address [address] [place] [address] Care Team Providers Care Environmental Emergencies Assistant Name Role Phone Linda Anderson Primary Care Provider Source Comments In the event this information is protected by the Federal Confidentiality of Alcohol and Drug AbusePatient Records regulations: The Federal rules restrict any use of the information to criminally investigate or prosecute any alcohol or drug abuse patient.[facility] Encounter Details DateTypeDepartmentCare Team (Latest Contact Info)Eenxwlplqwa65/12/2025Lab Requisition [facility] [address] [place] [address] Woodrow Valentino, [place] [address] [facility] [address] [phone] Person encountering health services to consult on behalf of another person Social History Tobacco UseTypesPacks/DayYears UsedDateSmoking Tobacco: NeverSmokeless Tobacco: NeverAlcohol UseStandard Drinks/WeekCommentsYes0 (1 standard drink = 0.6 oz pure alcohol)socialPHQ-2AnswerDate RecordedPHQ-2 /2Area Deprivation IndexAnswerDate RecordedNational Score (1-100), lower number is lower riskNot on file08/19/2020State Score (1-10), lower number is lower riskNot on file 08/19/2020Data from: https://www.neighborhoodatlas.medicine.[facility], [place].[facility]/. Last address used for calculationNot on file08/19/2020CommentsUnknownSex and Gender InformationValueDate RecordedSex Assigned at BirthNot on fileLegal Sex Fsvmac8210/17/2018 2:36 PM ESTGender IdentityNot on fileSexual OrientationNot on filedocumented as of this encounter Plan of Treatment Not on file documented as of this encounter Procedures Procedure NamePriorityDate/TimeAssociated DiagnosisCommentsSURGICAL PATHOLOGY Ujsxnqg1307/22/2025 9:30 AM EST Person encountering health services to consult on behalf of another person documented in this encounter Results * SURGICAL PATHOLOGY (07/22/2025 9:30 AM EST)ComponentValueRef RangeTest Method Analysis TimePerformed AtPathologist SignatureCase ReportSurgical Pathology Report ? Case: [id number] ? Authorizing Provider: ??Woodrow Valentino NP ??Collected: ? 07/22/2025 09:30 AM ? Ordering Location: ? [facility] ?Received: ?07/22/2025 11:12 PM ? [facility] ? Pathologist: ? Lauren Bertrand MD ? Specimen: ?Liver, Biopsy, random liver biopsy ([id number]) ? 07/23/2025 1:11 PM [facility] LABFINAL DIAGNOSISA. Liver, biopsy -Mild macrovesicular steatosis (30%) with scattered balloon cells - Early delegate bridging fibrosis on trichrome stain - See quenssz5407/23/2025 1:11 PM [facility] at 1311 ESTDiagnosis CommentThe biopsy is [...] forms of chronic liver disease: None Reference: Dionne Alexandra EM, et al. Hepatology 41(6):1313-21, 2005. 07/23/2025 1:11 PM [facility] LABGross DescriptionA. Liver, Biopsy Received in formalin on Telfa gauze are multiple segments of cylindrical tissue aggregating to 1.9 x 0.4 x 0.1 cm, izquierdo and of a soft and friable consistency. Totally submitted in one cassette. DB July 23, 2025 3:45 AM Gross examination performed at [facility], [address], [place], [place] [address]/ 1:11 PM [facility] LABClinical HistoryFatty liver, hyperlipidemia, elevated liver enzymes.07/23/2025 1:11 PM [facility] LABPerforming LabDiagnostic interpretation performed at: [facility], [address] [place] [address] [id number] CLIA# [id number] Loan Review Manager: Blair Aldridge MD 07/23/2025 1:11 PM [facility] LABDisclaimerLaboratory Developed Test (LDT) Disclaimer: Performance characteristics of immunohistochemical, immunofluorescent, and chromogenic in-situ hybridization tests have been determined by the performing laboratory within the [facility] Department of Pathology and Laboratory Medicine ([facility], [facility], [facility], [facility], [facility], [facility], or [facility]) in a manner consistent with CLIA requirements. One or more of these tests may not have been cleared or approved by the FDA. The [facility] Department of Pathology and Laboratory Medicineis regulated under CLIA as qualified to perform high-complexity testing. These tests are used for clinical purposes. These should not be regarded as investigational or for research. Positive and negative controls stain appropriately.07/23/2025 1:11 PM EST [facility] LABSpecimen (Source)Anatomical Location / Laterality Collection Method / VolumeCollection TimeReceived TimeTissueLIVER BIOPSY SPECIMEN / Hckhcwk4307/22/2025 9:30 AM EST07/22/2025 11:12 PM EST Narrative Authorizing ProviderResult TypeResult StatusWoodrow Valentino NPSURGICAL PATHOLOGYFinal ResultPerforming OrganizationAddressCity/State/ZIP CodePhone Number [address] [address], documented in this encounter Visit Diagnoses Diagnosis Person encountering health services to consult on behalf of another person Other person consulting on behalf of another person documented in this encounter Care Teams Team MemberRelationshipSpecialtyStart DateEnd Date Linda Anderson [address] [place] [address] PCP - GeneralInternal Medicine11/25/18documented as of this encounter
--- OUTSIDE RECORDS SUMMARY | 2025-08-03 10:13 | XMS_ITS | Patient Health Record ---
Author Organization [facility] Address [address] [place] [address] Care Team Providers Care Rfid Systems Engineer Name Role Phone Doe Monk OD Primary Care Provider Christian carolina Reason For Referral No Information Plan Of Treatment Pending Test Test Name Order Date LIVER PANEL 05/19/2024 DIRECT LDL 05/19/2024 Insurance Providers Payer Name Payer Address Payer Phone Subscriber Number Group Number Insured Name Patient Relationship to Insured Coverage Start Date Coverage End Date [employer] [address] [place] [phone] [id number] Marita Messina Self - patient is the insured 8
--- OUTSIDE RECORDS SUMMARY | 2025-08-03 10:13 | XMS_ITS | Encounter Summary ---
Author Organization [facility] Address [address] [place] [address] Care Team Providers Care Provider Relations Manager Name Role Phone Jo-Ann Carlson MD Primary Care Provider Jo-Ann Carlson MD Unavailable [phone] Dorcas Peralta NP Unavailable [phone] Reason for Visit * ReasonOnset DateCommentsMed Axuxlu7407/25/2025 Encounter Details DateTypeDepartmentCare Team (Latest Contact Info)Whkkfwhqgtu64/14/2025Refill [facility] [address] [place] [address] Jo-Ann Carlson MD [address] [place] [address] Gastroesophageal reflux disease without esophagitis Social History Tobacco UseTypesPacks/DayYears UsedDateSmoking Tobacco: Every DaySmokeless Tobacco: Never Comments:Vapes daily Alcohol UseStandard Drinks/WeekCommentsYes3 (1 standard drink = 0.6 oz pure alcohol)caffeine intake: 12 oz coffee utktpP4647 Health LiteracyAnswerDate RecordedHow often do you need [...] relatives?Once a week09/14/2024How often do you attend temple or adventism services?Never09/14/2024Do you belong to any clubs or organizations such as temple groups, unions, fraternal or athletic groups, or school groups?No 09/14/2024How often do you attend meetings of the clubs or organizations you belong to?Never09/14/2024re you , , , , never , or living with a partner?Ydggwmya67/05/2025UDIT-CAnswerDate Recorded Q1: How often do you have [...] care, and heating?Somewhat hard09/14/2024PHQ-2AnswerDate RecordedPatient Health Questionnaire-2 Dzxjl561Finmoab regional hospital [place] of Occupational Health - Occupational Stress QuestionnaireAnswerDate [...] were you homeless or living in a alf (including now)?No09/14/2024CommentsUnknownSex and Gender InformationValueDate RecordedSex Assigned at BirthNot on fileLegal Sex Rkwsoc3111/22/2022 7:35 PM EDTGender IdentityNot on fileSexual OrientationNot on filedocumented as of this encounter Plan of Treatment DateTypeDepartmentCare Team (Latest Contact Info)Owabssmqcez69/19/2026 1:15 PM ESTOffice Visit [facility] [address] [place] [phone] Aiden Maria DPM [address] [place] [address] documented as of this encounter Visit Diagnoses Diagnosis Gastroesophageal reflux disease without esophagitis Esophageal reflux documented in this encounter Additional Health Concerns AssessmentNoted TimePQ-9 Depression Total Score: 101 1:35 PM EDT documented as of this encounter Care Teams Team MemberRelationshipSpecialtyStart DateEnd Date Jo-Ann Carlson MD [address] [facility] [place] [address] PCP - GeneralFamily Medicine05/09/24 Jo-Ann Carlson MD [address] [facility] [place] [address] PCP - [employer]09/10/24 Dorcas Peralta NP [address] [facility] [place] [address] Nurse PractitionerFamily Medicine02/06/25documented as of this encounter
--- OUTSIDE RECORDS SUMMARY | 2025-08-03 10:29 | XMS_ITS | CCD ---
Author Organization [facility] Care Team Providers Care Terry Cloth Cutter Hand Name Role Phone BRADLEY SIMMONS Referring Unavailable [...] Kyara CLEMONS, Caitlyn Griffiths Primary Care Provider Gerard CLEMONS, Jo-Ann Yadav Primary Care Provider [phone] Kathryn BULLOCK, Dorcas Unavailable Malina CLEMONS, Sana Doyle Attending Unavailable Kyara CLEMONS, [facility] Ness vailable Weihrauch PA-C, Dorcas Stewart Attending Christian Sparrow MD, [facility] Ness vailable Weihrauch PA-C, Dorcas Stewart Attending Christian Sparrow MD, [facility] Ness vailable Weihrauch PA-C, Dorcas Stewart Attending Christian Sparrow MD, [facility] Ness vailable Malina CLEMONS, Sana Doyle Attending Unavailable Kyara CLEMONS, [facility] Ness vailable Malina CLEMONS, Sana Doyle Attending Unavailable Kyara CLEMONS, [facility] Ness vailable Kyara CLEMONS, [facility] Ness vailable Malina CLEMONS, Sana Doyle Attending Unavailable Malina CLEMONS, Sana Doyle Attending Unavailable Kyara CLEMONS, [facility] Ness vailable Ty Gee MD, Jo-Ann Mazariegos Primary Care Pr ovider Woodrow Valentino APRN Attending Provider Fibroscan, Temporary Attending Provider Unavaila ble [facility] [employer] WELLNESS MANAGER, Woodrow A Referring Provider [phone] LAQUITA SHARIF Attending Unavailable LAQUITA SHARIF Referring Unavailable CAITLYN SPARROW Primary Care Unavailabl e KYARA, CAITLYN Griffiths Referring Unavailabl e GERARD, JO-ANN Yadav Primary Care Unavailable CELESTE DHALIWAL Referring Unavailable GERARD, JO-ANN G Primary Care Unavailable GERARD, JO-ANN G Referring Unavailable GERARD, JO-ANN G Primary Care Unavailable RUSHER, SHERIE Freitas Attending Unavailable RUSHER, SHERIE Freitas Attending Unavailable KAMPFER, DORCAS Attending Unavailable RUSHER, SHERIE Freitas Attending Unavailable KAMPFER, DORCAS Attending Unavailable KAMPFER, DORCAS Referring Unavailable RUSHER, SHERIE Freitas Attending Unavailable KAMPFER, DORCAS Attending Unavailable KAMPFER, DORCAS Attending Unavailable KAMPFER, DORCAS Referring Unavailable Tico Amador Attending Unavailable Jo-Ann Cuevas Primary Care Un available Chicho, Woodrow Freitas Referring Unavailable Tico Amador Admitting Unavailable Jo-Ann Cuevas Primary Care Un available Groradha, Woodrow A Admitting Unavailable Woodrow Valentino Attending Unavailable Jo-Ann Cuevas MD Primary Care Pr ovider Groradha LORENZO, Woodrow Freitas Attending Provider [phone] Fibroscan, Temporary Other Provider Unavailable Chicho LORENZO, Woodrow A Referring Provider [phone] Tico Amador MD Attending Provider Allergies Allergy ClassificationReported Allergen(s)Allergy TypeDate of OnsetReaction(s) Facility (20 sources)Acetaminophen / HYDROcodone; Translations: [HYDROCODONE-ACETAMINOPHEN]Drug [id number]- [place], [place] (9 sources)Acetaminophen / HYDROcodone; Translations: [Vicodin]Drug Allergy [facility] ([facility])Acetaminophen; Translations: [acetaminophen]Drug [id number] [facility] (3 sources)HYDROcodone; Translations: [hydrocodone]Drug Wjrungy91-11-6772ifygw [facility] Medications Current Medications MedicationDrug Class(es)DatesSig (Normalized)Sig (Original)Aimovig 140 MG/ML (6 sources)inject 140 mg by subcutaneous injection every monthAimovig 140 MG/ML as directed Subcutaneous monthly [id number] 200 actuat albuterol 0.09 mg/actuat metered dose inhaler (20 sources)beta2-Adrenergic AgonistStart: 73-56-7602disb 2 puff(s) by inhalation every six hours for wheezingalbuterol HFA 90 mcg/act inhaler Indications: Moderate persistent asthma without complication (HCC)Inhale 2 puffs every 6 (six) hours if needed for wheezing 18 g 05/08/2025 Activetake 2 puff(s) by inhalation every six hours as needed for wheezingalbuterol (PROVENTIL HFA;VENTOLIN HFA) 90 mcg/actuation inhaler Inhale 2 puffs every 6 (six) hours as needed for wheezing. Active End: 94-05-1332rsxphbmrx HFA 90 mcg/act inhaler 05/08/2025 Discontinued (Reorder)take 2 puff(s) by mouth every four to six hoursalbuterol HFA 90 mcg/act inhaler inhale 2 puffs by mouth and INTO THE LUNGS every 4 to 6 hours if needed ActiveAlbuterol prn Activeamitriptyline hydrochloride 100 mg oral tablet (9 sources)Tricyclic Antidepressanttake 1 tablet by mouth at bedtime Amitriptyline HCl 100 MG take 1 tablet by mouth at bedtime for 30 Activetake 1 tablet by mouth at bedtimeAmitriptyline HCl 50 MG take 1 tablet by mouth at bedtime for 30 Khqlhr252 actuat budesonide 0.16 mg/actuat / formoterol fumarate 0.0045 mg/actuat metered dose inhaler (20 sources)Corticosteroid, beta2-Adrenergic AgonistStart: 97-98-6904Nwvbp: 05-27-2025 End: 56-66-6471Dmlgzterio-Formoterol (Symbicort) 160-4.5 mcg/actuation HFA aerosol inhaler Discontinued 1 INH INHALATION Twice daily May 26, 2025 11:00pm May 27, 2025 7:52amStart: 86-16-8570ytoa 2 puff(s) by inhalation in the morningbudesonide-formoterol (Symbicort) 160-4.5 MCG/ACT inhaler Indications: Moderate persistent asthma without complication (HCC) Inhale 2 puffs in the morning and 2 puffs before bedtime. 32.4 g 1 05/08/2025 Active End: 89-41-3682rryw 2 puff(s) by inhalation in the morningbudesonide-formoterol (Symbicort) 160-4.5 MCG/ACT inhaler Inhale 2 puffs in the morning and 2 puffsin the evening. 05/08/2025 Discontinued (Reorder)take 2 puff(s) by inhalation in the morningbudesonide-formoteroL (SYMBICORT) 160-4.5 mcg/actuation inhaler Inhale 2 puffs in the morning and 2puffs before bedtime. Activetake 2 puff(s) by inhalation twice dailybudesonide-formoteroL (SYMBICORT) 160-4.5 mcg/actuation inhaler Inhale 2 puffs 2 (two) times a day.Activetake 2 puff(s) by inhalation twice dailySymbicort 160-4.5 MCG/ACT 2 puffs Inhalation Twice a day Active busPIRone hydrochloride 30 mg oral tablet (20 sources)Start: 75-79-6286dncf 1 tablet by mouth twice dailyBuspirone 30 mg tablet Active 30 MG PO Twice daily May 26, 2025 11:00pm Complies with drug therapycariprazine 6 mg oral capsule (20 sources)Atypical AntipsychoticStart: 29-98-4121fyyy 1 capsule by mouth once dailyCariprazine (Vraylar) 6 mg capsule Active 6 MG PO Daily May 26, 2025 11:00pm Complies with drug therapytake 1 capsule by mouth in the morning cariprazine (VRAYLAR) 4.5 mg capsule Take 1 capsule (4.5 mg total) by mouth in the morning. Activecyclobenzaprine hydrochloride 10 mg oral tablet (20 sources)Muscle RelaxantStart: 28-24-1286opda 1 tablet by mouth three times dailyCyclobenzaprine 10 mg tablet Active 10 MG PO Three times daily May 26, 2025 11:00pm Complies with drug therapytake 1 tablet by mouth twice daily as needed for muscle spasmscyclobenzaprine (FLEXERIL) 10 mg tablet Take 1 tablet (10 mg total) by mouth 2 (two) times a day asneeded for muscle spasms. Active take 1 tablet by mouth twice daily as needed for muscle spasmscyclobenzaprine (FLEXERIL) 5 MG tablet Take 5 mg by mouth 2 times daily as needed for Muscle spasms0 Activedoxycycline hyclate 100 mg oral tablet (10 sources)Tetracycline-class DrugStart: 05-23-2024 End: 65-11-1014uoehcdtsgxc (Vibra-Tabs) 100 MG tablet Indications: Folliculitis Take 1 tablet (100 mg) by mouth inthe morning and 1 tablet (100 mg) before bedtime. Do all this for 10 days. Take with a full glass of water and do not lie down for at least 30 minutes after.. 20 tablet 05/23/2024 06/02/2024 Activetake 1 capsule by mouth every twenty-four hoursDoxycycline Hyclate 100 MG 1 capsule Orally Once a day Not-Taking0.3 ml enoxaparin sodium 100 mg/ml prefilled syringe (1 source)Low Molecular Weight Heparinenoxaparin (LOVENOX) 30 MG/0.3ML injection Inject 30 mg into the skin daily 0 Active1 ml erenumab-aooe 140 mg/ml auto-injector (20 sources)Start: 10-25-2022 End: 63-11-3219yzsuiz 140 mg by subcutaneous injection every montherenumab-aooe (AIMOVIG AUTOINJECTOR) 140 mg/mL auto-injector Indications: Intractable migraine without aura and without status migrainosus INJECT 140 MG SUBCUTANEOUSLY ONCE EVERY MONTH. 3 mL 3 10/25/2022 10/25/2023 ActiveStart: 05-30-2021 End: 73-29-5233bswpzv 140 mg by subcutaneous injection every montherenumab-aooe (AIMOVIG AUTOINJECTOR) 140 mg/mL auto-injector Indications: Intractable migraine without aura and without status migrainosus INJECT 140 MG SUBCUTANEOUSLY ONCE EVERY MONTH. 3 mL 3 05/30/2021 05/30/2022 ActiveStart: 37-17-2614DKXDATM AUTOINJECTOR 140 mg/mL auto-injector every 30 (thirty) days. 02/05/2020 Active End: 42-68-4763garsengf (Aimovig) 140 MG/ML injection Inject 140 mg under the skin every 28 (twenty-eight) days 06/26/2025 Discontinued (Therapy completed) Comment on above:INJECT 140 MG SUBCUTANEOUSLY ONCE EVERY MONTH.Erenumab-aooe (AIMOVIG SC) (1 source)1 ml evolocumab 140 mg/ml auto-injector (20 sources)PCSK9 InhibitorStart: 05-99-7939Uusax: 06-10-2024 End: 78-57-9164Auwfkfb SureClick 140 MG/ML injection Inject 140 mg under the skin every 14 (fourteen) days 06/10/2024 ActiveFLUoxetine 40 mg oral capsule (20 sources)Serotonin Reuptake InhibitorStart: 72-47-1527rwpn 1 capsule by mouth every twenty-four hoursFLUoxetine HCl 10 MG 1 capsule Orally Once a day for 30 day(s) 40 mg in am and 10 mg at noon Dec, ActiveStart: 18-18-5242lddv 1 capsule by mouth once dailyFluoxetine 40 mg capsule Active 40 MG PO Daily May 26, 2025 11:00pm Complies with drug therapyComment on above:Take 40 mg by mouth once daily.fluticasone propionate 0.05 mg/actuat metered dose nasal spray (15 sources)CorticosteroidStart: 05-08-2025 End: 06-09-0878zdtqubkaxv 600 mg oral tablet (20 sources)Anti-epileptic AgentStart: 59-09-4392tksn 1 tablet by mouth twice dailyGabapentin 600 mg tablet Active 600 MG PO Twice daily May 26, 2025 11:00pm Complies with drug therapyStart: 11-88-7324wldo 1 capsule by mouth in the morninggabapentin (Neurontin) 300 MG capsule Take 300 mg by mouth in the morning and 300 mg before bedtime. 05/09/2024 Active End: 69-54-9056glxx 1 capsule by mouth three times dailygabapentin (NEURONTIN) 300 mg capsule Take 1 capsule (300 mg total) by mouth 3 (three) times a day. 05/05/2024 Discontinued (Discontinued by another clinician)hydrOXYzine pamoate 50 mg oral capsule (20 sources)AntihistamineStart: 44-79-9164khtbFLAythw pamoate (Vistaril) 50 MG capsule 50 mg as needed in the morning and 50 mg as needed in the evening. 08/04/2024 ActivehydrOXYzine HCl 10 MG as directed Orally every 8 hrs for 30 days Activeketoconazole 20 mg/ml medicated shampoo (20 sources)Azole AntifungalStart: 05-26-2024 End: 76-82-3888ukuwwxdlxtwl (NIZOral) 2 % shampoo Indications: Folliculitis Apply topically 2 (two) times a week 120 mL 05/26/2024 05/08/2025 Discontinued (Therapy completed)Start: 22-51-8146khqdefgajibx (NIZOral) 2 % shampoo Indications: Folliculitis Apply topically 2 (two) times a week 120 mL 05/26/2024 ActiveStart: 05-71-6746vvjprahunlwz (NIZOral) 2 % shampoo Indications: Folliculitis Apply topically 2 (two) times a week 120 mL 05/26/2024 ActiveStart: 05-22-2024 End: 23-29-1262Knjnaqprqhhc 1 % shampoo Indications: Dermatitis Apply 1 Application topically 2 (two) times a trve933 mL 1 05/22/2024 05/23/2024 DiscontinuedlamoTRIgine 100 mg oral tablet (10 sources)Mood Stabilizer, Anti-epileptic Agent End: 46-65-0676mcxg 1 tablet by mouth in the morninglamoTRIgine (LaMICtal) 100 MG tablet Take 1 tablet by mouth in the morning. 06/16/2024 Discontinued levothyroxine sodium 0.075 mg oral tablet (1 source)l-Thyroxinetake 1 tablet by mouth once dailylevothyroxine (SYNTHROID) 75 MCG tablet Take 75 mcg by mouth Daily 0 ActiveLORazepam 0.5 mg oral tablet (20 sources)BenzodiazepineStart: 69-91-6213tgpn 1 tablet by mouth every twenty- four hoursAtivan 0.5 MG 1 tablet at bedtime as needed Orally Once a day for 10 days f41.1 Oct, Active End: 90-62-6748mcon 1 tablet by mouth every six hours as neededLORazepam (Ativan) 0.5 MG tablet Take 1 tablet by mouth every 6 (six) hours if needed Activetake 1 tablet by mouth every twenty-four hoursAtivan 0.5 MG 1 tablet at bedtime as needed Orally Once a day for 30 days f41.1 Activemelatonin 3 mg oral tablet (1 source)take 10 mg by mouth once daily at bedtimemelatonin 3 MG TABS tablet Take 10 mg by mouth daily Take 10 mg at bedtime 0 Activenicotine 2 mg chewing gum (6 sources)Cholinergic Nicotinic AgonistNicotine Polacrilex 2 MG 1 piece for 30 minute as needed Mouth/Throat 24 time(s) a day for 30 days ActiveNicotine Polacrilex 2 MG 1 piece for 30 minute as needed Mouth/Throat 24 time(s) a day for 30 days Activeomega 6-tbg-cvb-fish oil (Fish OiL) 60-90-500 mg capsule (1 source)take 2 capsules by mouth in the morningomega 9-grf-exn-fish oil (Fish OiL) 60-90-500 mg capsule Take 2 capsules by mouth in the morning. ActiveOmega-3 Fatty Acids (FISH OIL OMEGA-3 PO) (20 sources)take 2 tablets by mouth twice daily in the morningOmega-3 Fatty Acids (FISH OIL OMEGA-3 PO) Take 2 g by mouth in the morning and 2 g before bedtime. 2 g 2 tab bid. . Activeomeprazole 20 mg delayed release oral capsule (20 sources)Proton Pump InhibitorStart: 20-48-6583yidg 1 capsule by mouth once dailyOmeprazole 20 mg capsule,delayed release(DR/EC) Active 20 MG PO Daily May 26, 2025 11:00pm Complies with drug therapyStart: 31-89-9988utnb 1 capsule by mouth once dailyomeprazole (PriLOSEC) [address] capsule Indications: Gastroesophageal reflux disease without esophagitis TAKE 1 CAPSULE(20 MG) BY MOUTH 1 TIME EACH DAY AT THE SAME TIME 90 capsule 03/10/2025 ActiveStart: 05-26-2024 End: 00-12-4454gifd 1 capsule by mouth once dailyomeprazole (PriLOSEC) [address] capsule Indications: Gastroesophageal reflux disease without esophagitis TAKE 1 CAPSULE(20 MG) BY MOUTH 1 TIME EACH DAY AT THE SAME TIME 90 capsule 12/18/2024 03/10/2025 DiscontinuedStart: 46-62-6681pnrogzymnm (PriLOSEC) 40 mg capsule 1 capsule (40 mg total) in the morning and at bedtime. 60 capsule 1 01/24/2022 Activetake 1 capsule by mouth twice dailyOmeprazole 40 MG 1 capsule 30 minutes before morning meal Orally twice a day Not-Takingtake 2 capsules by mouth once dailyomeprazole (PRILOSEC) 20 MG delayed release capsule Take 40 mg by mouth daily 0 ActiveComment on above:take 1 capsule by mouth once daily as directed ondansetron 4 mg disintegrating oral tablet (20 sources)Serotonin-3 Receptor AntagonistStart: 59-47-5414mscd 1 tablet by mouth every eight hours as needed for nauseaondansetron ODT (ZOFRAN ODT) 4 mg disintegrating tablet Dissolve 1 tablet (4 mg total) on tongue every 8 (eight) hours as needed for nausea for up to 10 doses. 10 tablet 01/31/2023 ActiveStart: 79-88-3768qeeq 1 tablet by mouth once dailyZofran ODT 4 MG 1 tablet on the tongue and allow to dissolve Orally Once a day for 30 day(s) May, Active predniSONE 20 mg oral tablet (2 sources)Start: 05-26-2024 End: 25-03-8430svbx 1 tablet by mouth in the morningpredniSONE (Deltasone) 20 MG tablet Indications: Rash Take 1 tablet (20 mg) by mouth in the morningand 1 tablet (20 mg) before bedtime. Do all this for 5 days. 10 tablet 05/26/2024 05/31/2024 Activepropranolol hydrochloride 20 mg oral tablet (20 sources)beta-Adrenergic BlockerStart: 46-05-5869lelr 1 tablet by mouth once Propranolol 20 mg tablet Active 20 MG PO Once May 26, 2025 11:00pm Complies with drug therapyStart: 05-21-2019 End: 09-83-9219tnzh 1 tablet by mouth in the morningpropranolol (Inderal) 20 MG tablet Indications: Tremor TAKE 1 TABLET BY MOUTH IN THE MORNING AND 1 TABLET BEFORE BEDTIME 180 tablet 1 03/28/2025 ActiveStart: 34-56-2777lbpe 0.5 tablet by mouth in the morning, then take 0.5 tablet by mouth at bedtimepropranoloL (INDERAL) 20 mg tablet Take 0.5 tablets (10 mg total) by mouth in the morning and 0.5 tablets (10 mg total) before bedtime. 0 05/21/2019 Activetake 1 tablet by mouth three times dailypropranolol (INDERAL) 10 mg tablet Take 10 mg by mouth three times daily. 0 Activetake 1 tablet by mouth twice dailypropranolol (INDERAL) 10 MG tablet Take 10 mg by mouth 2 times daily 0 ActiveComment on above:Take 10 mg by mouth three times daily.rizatriptan 5 mg oral tablet (20 sources)Serotonin-1b and Serotonin-1d Receptor AgonistStart: 11-25-2018 rizatriptan (MAXALT) 5 mg tablet rizatriptan 5 mg tablet 11/25/2018 Active rizatriptan (Maxalt) 5 MG tablet 5 mg 1 (one) time if needed Activetake 1 tablet by mouth every twenty-four hoursMaxalt 10 MG 1 tablet Orally Once a day 5 mg PRN ActiveComment on above:Take 1 tablet by mouth as needed. May repeat in 2 hours if neededSemaglutide-Weight Management (Wegovy) 0.5 MG/0.5ML solution auto-injector (11 sources)Start: 05-29-2024 End: 20-64-2684nqkzpr 0.5 mg by subcutaneous injection every weekSemaglutide- Weight Management (Wegovy) 0.5 MG/0.5ML solution auto-injector Indications: Obesity, Class II, BMI 35-39.9 Inject 0.5 mg under the skin 1 (one) time per week 6 mL 05/29/2024 06/16/2024 DiscontinuedStart: 47-27-9316cjcjhx 0.5 mg by subcutaneous injection every weekSemaglutide-Weight Management (Wegovy) 0.5 MG/0.5ML solution auto-injector Indications: Obesity, Class II, BMI 35-39.9 Inject 0.5 mg under the skin 1 (one) time per week 6 mL 05/29/2024 ActiveStart: 05-14-2024 End: 18-51-7071yehsfi 0.5 mg by subcutaneous injection every weekSemaglutide- Weight Management (Wegovy) 0.5 MG/0.5ML solution auto-injector Indications: Obesity, Class II, BMI 35-39.9 Inject 0.5 mg under the skin 1 (one) time per week 6 mL 05/14/2024 05/29/2024 Discontinued (Reorder)Start: 94-39-4753tdxpxh 0.5 mg by subcutaneous injection every weekSemaglutide-Weight Management (Wegovy) 0.5 MG/0.5ML solution auto-injector Indications: Obesity, Class II, BMI 35-39.9 Inject 0.5 mg under the skin 1 (one) time per week 6 mL 05/14/2024 ActiveTirzepatide (Mounjaro) 2.5 MG/0.5ML solution auto-injector (2 sources)Start: 54-14-2887arkkup 2.5 mg by subcutaneous injection every week Tirzepatide (Mounjaro) 2.5 MG/0.5ML solution auto-injector Indications: Morbid (severe) obesity dueto excess calories (CMS/HCC) , BOGDAN (obstructive sleep apnea) Inject 2.5 mg under the skin 1 (one) time per week 2 mL 1 09/15/2024 Active Tirzepatide (Weight Loss) (1 source)Start: 51-49-3448Loxvhbrzsoh (Weight Loss) (Zepbound) 10 mg/0.5 mL pen injector Active 10 MG SUBCUT every week July 22, 2025 12:00am Complies with drug therapyTirzepatide 2.5 MG/0.5ML solution auto-injector (6 sources)Start: 09-16-2024 End: 17-65-8401wkvrqq 2.5 mg by subcutaneous injection every weekTirzepatide 2.5 MG/0.5ML solution auto-injector Indications: Obstructive sleep apnea syndrome Inject 2.5 mg under the skin 1 (one) time per week 2 mL 1 09/16/2024 11/03/2024 Discontinued (Dose adjustment)Start: 56-72-1126wpdrqg 2.5 mg by subcutaneous injection every weekTirzepatide 2.5 MG/0.5ML solution auto-injector Indications: Obstructive sleep apnea syndrome Inject 2.5 mg under the skin 1 (one) time per week 2 mL 1 09/16/2024 Activetirzepatide, weight loss, (ZEPBOUND) 12.5 mg/0.5 mL pen injector (1 source)tirzepatide, weight loss, (ZEPBOUND) 12.5 mg/0.5 mL pen injector Inject 12.5 mg under the skin every 7 days. ActiveTirzepatide-Weight Management (Zepbound) 10 MG/0.5ML solution (2 sources)Start: 03-47-2677foywbc 10 mg by subcutaneous injection every week Tirzepatide-Weight Management (Zepbound) 10 MG/0.5ML solution Indications: Obstructive sleep apnea syndrome , Obesity, Class II, BMI 35-39.9 Inject 10 mg under the skin 1 (one) time per week 2 mL 1 07/08/2025 ActiveTirzepatide-Weight Management (Zepbound) 10 MG/0.5ML solution auto-injector (7 sources)Start: 07-45-8124xlvnnm 10 mg by subcutaneous injection every week Tirzepatide-Weight Management (Zepbound) 10 MG/0.5ML solution auto-injector Indications: Obstructive sleep apnea syndrome , Obesity, Class II, BMI 35-39.9 Inject 10 mg under the skin 1 (one) time perweek 6 mL 02/06/2025 Active Tirzepatide-Weight Management (Zepbound) 12.5 MG/0.5ML solution auto-injector (11 sources)Start: 05-08-2025 End: 58-48-9143vxwspd 12.5 mg by subcutaneous injection every weekTirzepatide- Weight Management (Zepbound) 12.5 MG/0.5ML solution auto-injector Indications: Obstructive sleep apnea syndrome , Obesity, Class II, BMI 35-39.9 Inject 12.5 mg under the skin 1 (one) timeper week 6 mL 1 05/08/2025 07/08/2025 Discontinued (Dose adjustment)Start: 92-22-7092sxcnah 12.5 mg by subcutaneous injection every weekTirzepatide-Weight Management (Zepbound) 12.5 MG/0.5ML solution auto- injector Indications: Obstructive sleep apnea syndrome , Obesity, Class II, BMI 35-39.9 Inject 12.5 mg under the skin 1 (one) timeper week 6 mL 1 05/08/2025 ActiveTirzepatide-Weight Management (Zepbound) 2.5 MG/0.5ML solution auto-injector (5 sources)Start: 09-22-2024 End: 16-11-9577swdvjg 2.5 mg by subcutaneous injection every weekTirzepatide- Weight Management (Zepbound) 2.5 MG/0.5ML solution auto-injector Indications: Obstructive sleep apnea syndrome Inject 2.5 mg under the skin 1 (one) time per week 2 mL 1 09/22/2024 11/03/2024 Discontinued (Therapy completed)Start: 27-79-5188aemhjk 2.5 mg by subcutaneous injection every weekTirzepatide-Weight Management (Zepbound) 2.5 MG/0.5ML solution auto-injector Indications: Obstructive sleep apnea syndrome Inject 2.5 mg under the skin 1 (one) time per week 2 mL 1 09/22/2024 ActiveTirzepatide-Weight Management (Zepbound) 7.5 MG/0.5ML solution auto-injector (3 sources)Start: 01-30-2025 End: 37-83-2444tfaqlg 7.5 mg by subcutaneous injection every weekTirzepatide- Weight Management (Zepbound) 7.5 MG/0.5ML solution auto-injector Indications: Obstructive sleep apnea syndrome , Obesity, Class II, BMI 35-39.9 Inject 7.5 mg under the skin 1 (one) time per week 2 mL 01/30/2025 02/06/2025 Discontinued (Dose adjustment)Start: 61-30-0571pimyik 7.5 mg by subcutaneous injection every weekTirzepatide-Weight Management (Zepbound) 7.5 MG/0.5ML solution auto-injector Indications: Obstructive sleep apnea syndrome , Obesity, Class II, BMI 35-39.9 Inject 7.5 mg under the skin 1 (one) time per week 2 mL 01/30/2025 Active Tirzepatide-Weight Management 5 MG/0.5ML solution (1 source)Start: 16-28-8914yfarkb 5 mg by subcutaneous injection every week Tirzepatide-Weight Management 5 MG/0.5ML solution Indications: Obstructive sleep apnea syndrome Inject 5 mg under the skin 1 (one) time per week 2 mL 1 11/03/2024 ActiveTirzepatide-Weight Management 7.5 MG/0.5ML solution (1 source)Start: 89-29-5905qenezz 7.5 mg by subcutaneous injection every week Tirzepatide-Weight Management 7.5 MG/0.5ML solution Indications: Obesity, Class II, BMI 35-39.9 , Obstructive sleep apnea syndrome Inject 7.5 mg under the skin 1 (one) time per week 2 mL 1 5ActivetraZODone hydrochloride 50 mg oral tablet (20 sources)Serotonin Reuptake Inhibitortake 1 tablet by mouth at bedtime traZODone (Desyrel) 50 MG tablet Take 50 mg by mouth at bedtime ActiveZepbound 10 MG/0.5ML solution auto-injector (3 sources)Start: 05-04-2025 End: 00-90-1323mnjvpe 10 mg by subcutaneous injection every weekZepbound 10 MG/0.5ML solution auto-injector Indications: Obstructive sleep apnea syndrome , Obesity, Class II, BMI 35-39.9 ADMINISTER 10 MG UNDER THE SKIN 1 TIME EVERY WEEK 6 mL 05/04/2025 05/08/2025Discontinued (Dose adjustment)Start: 82-59-8829kzsejm 10 mg by subcutaneous injection every weekZepbound 10 MG/0.5ML solution auto- injector Indications: Obstructive sleep apnea syndrome , Obesity, Class II, BMI 35-39.9 ADMINISTER 10 MG UNDER THE SKIN 1 TIME EVERY WEEK 6 mL 05/04/2025 Active Completed/Discontinued Medications MedicationDrug Class(es)DatesSig (Normalized)Sig (Original)acetaminophen 325 mg / oxyCODONE hydrochloride 5 mg oral tablet (7 sources)Opioid Agonist End: 09-03-0021wohs 1 tablet by mouth every twelve hours as needed for pain oxyCODONE-acetaminophen (PERCOCET) 5-325 mg per tablet Take 1 tablet by mouth every 12 (twelve) hours as needed for pain. 06/10/2025 Discontinued (Therapy completed)armodafinil 200 mg oral tablet (11 sources)Start: 10-25-2022 End: 06-38-4809hfwx 1 tablet by mouth once dailyarmodafinil (NUVIGIL) 200 mg tab Indications: Daytime sleepiness , Narcolepsy without cataplexy Take 1 tablet by mouth once daily for 90 days. 30 tablet 2 03/09/2023 ActiveStart: 05-25-2022 End: 16-89-9833cjir 1 tablet by mouth once dailyarmodafinil (NUVIGIL) 200 mg tab Indications: Daytime sleepiness , Narcolepsy without cataplexy Take 1 tablet by mouth once daily for 90 days. 30 tablet 2 05/25/2022 08/23/2022 ActiveStart: 10-20-2021 End: 94-32-3456tjzz 1 tablet by mouth once dailyarmodafinil (NUVIGIL) 200 mg tab Indications: Daytime sleepiness , Narcolepsy without cataplexy Take 1 tablet by mouth once daily for 90 days. 30 tablet 2 10/20/2021 01/18/2022 ActiveComment on above:Take 1 tablet by mouth once daily for 90 days.baclofen 10 mg oral tablet (10 sources)gamma-Aminobutyric Acid-ergic AgonistStart: 23-91-4235wtkk 1 tablet by mouth three times dailybaclofen (LIORESAL) 10 mg tablet Indications: Spasm of muscle , Neck muscle spasm , Excessive physiologic tremor , Hypertonia , Intractable migraine without aura and without status migrainosus Take 1tablet by mouth three times daily. 90 tablet 5 11/25/2018 Activetake 1 tablet by mouth every twenty-four hoursBaclofen 10 MG 1 tablet Orally Once a day Activetake 1 tablet by mouth every twenty-four hoursBaclofen 5 MG 1 tablet Orally Once a day ActiveComment on above:Take 1 tablet by mouth three times daily.betamethasone 0.5 mg/ml / clotrimazole 10 mg/ml topical cream (20 sources)Azole Antifungal, CorticosteroidStart: 08-04-2024 End: 46-57-7837ljvekzumxdzn-betamethasone (Lotrisone) cream Indications: Tinea pedis of both feet , Chronic dermatitis of feet Apply twice daily as directed 45 g 1 08/04/2024 06/26/2025 Discontinued (Therapy completed)biotin 10 mg oral capsule (4 sources)Start: 29-87-3124Pvuwfh 10,000 mcg cap12 hr buPROPion hydrochloride 150 mg extended release oral tablet (4 sources)AminoketoneStart: 86-11-6945bcSNKDsid SR (ZYBAN SR; WELLBUTRIN SR) 150 mg 12 hr tabletlithium carbonate 450 mg extended release oral tablet (4 sources)Start: 83-78-9284idsu 1 tablet by mouth twice dailylithium carbonate ER 450 mg CR tablet Take 450 mg by mouth twice daily. 0 11/20/2018 ActiveComment on above:Take 450 mg by mouth twice daily.methocarbamol 500 mg oral tablet (2 sources)Muscle Relaxant End: 25-12-2512yqenrqsdcdtdF (ROBAXIN) 500 mg tablet Take 1 tablet (500 mg total) by mouth in the morning and 1 tablet (500 mg total) at noon and 1 tablet (500 mg total) in the evening. 05/05/2024 Discontinued (Discontinued by another clinician)omega 8-yks-jnu-fish oil (Fish OiL) 300-1,000 mg capsule (5 sources)Start: 06-10-2024 End: 86-07-7443iusi 1 capsule by mouth in the morningomega 0-lgn-sxc-fish oil (Fish OiL) 300-1,000 mg capsule Take 2 g by mouth in the morning and 2 g before bedtime. 06/10/2024 06/10/2025 Discontinued (Patient Stopped On Own)Start: 33-95-7089gbbr 1 capsule by mouth in the morningomega 9-dbk-cpm-fish oil (Fish OiL) 300-1,000 mg capsule Take 2 g by mouth in the morning and 2 g before bedtime. 06/10/2024 Activeperphenazine 2 mg oral tablet (5 sources)PhenothiazineStart: 24-37-9084hzry 1 tablet by mouth twice daily perphenazine 2 mg tablet Take 2 mg by mouth twice daily. 0 11/20/2018 Active Comment on above:Take 2 mg by mouth twice daily.phentermine hydrochloride 37.5 mg oral tablet (4 sources)Sympathomimetic Amine Anorectictake 1 tablet by mouth every twenty- four hoursAdipex-P 37.5 MG 1 tablet Orally Once a day Not-Takingprenatal vit 10- iron fum-folic 65-1 mg tablet (2 sources)Start: 02-23-2022 End: 45-87-2002grnv 1 tablet by mouth in the morningprenatal vit 10-iron fum- folic 65-1 mg tablet Indications: Other fatigue , Obesity, Class II, BMI 35-39.9 Take 1 tablet by mouth in the morning. 90 tablet 3 02/23/2022 05/05/2024 Discontinued (Discontinued by another clinician)Start: 51-02-4767xeso 1 tablet by mouth in the morningprenatal vit 10-iron fum-folic 65-1 mg tablet Indications: Other fatigue , Obesity, Class II, BMI 35-39.9 Take 1 tablet by mouth in the morning. 90 tablet 3 02/23/2022 Activeprimidone 250 mg oral tablet (12 sources)Anti-epileptic AgentStart: 06-11-4750qmzpxlmew (MYSOLINE) 250 mg tablet Indications: Excessive physiologic tremor take 0.5 tablet every morning and 1 tablet every evening 45 tablet 5 10/25/2022 ActiveStart: 07-05-2021 End: 16-14-3273eypwiatah (MYSOLINE) 250 mg tablet Indications: Excessive physiologic tremor take 0.5 tablet every morning and 1 tablet every evening 45 tablet 5 01/10/2022 Activetake 1 tablet by mouth every twelve hoursPrimidone 250 MG 1 tablet Orally Twice a day 1/2 am 1 tab qhs Activetake 1 tablet by mouth twice dailyprimidone (MYSOLINE) 250 MG tablet Take 250 mg by mouth 2 times daily Morning and at night 0 ActiveComment on above:take 0.5 tablet every morning and 1 tablet every eveningTirzepatide (Weight Loss) (3 sources)Start: 05-27-2025 End: 58-16-1825Vijzznqnrwl (Weight Loss) (Zepbound) 12.5 mg/0.5 mL pen injector Discontinued MG SUBCUT May 26, 2025 11:00pm July 22, 2025 8:26am Start: 53-16-9776Ufbke: 72-76-9653Bwylrwggyvi (Weight Loss) (Zepbound) 12.5 mg/0.5 mL pen injector Active MG SUBCUT May 27, 2025 12:00am Complies with drug therapy Problems Active Problems Problem ClassificationProblemDateDocumented DateEpisodic/ChronicAllergic reactions (3 sources)Chronic dermatitis; Translations: [Dermatitis, unspecified]08-04-2024 EpisodicAnxiety disorders (20 sources)Anxiety; Translations: [Anxiety disorder, unspecified]Onset: 674305-85-2496XwgmbmrLvkmvq (20 sources)Asthma; Translations: [Unspecified asthma, uncomplicated]Onset: 891751-48-3921PfdmnlyMwou; stupor; and brain damage (3 sources)Daytime somnolence; Translations: [Somnolence]EpisodicDisorders of lipid metabolism (20 sources)Dyslipidemia; Translations: [Mixed hyperlipidemia]Onset: 06-11-2024 62-38-5996NapjhwnElrmolfufd disorders (20 sources)Gastroesophageal reflux disease without esophagitis; Translations: [Gastro-esophageal reflux disease without esophagitis]Onset: 12-08-2020 84-37-5527UymakacYahfrmgp; including migraine (20 sources)Migraine; Translations: [Migraine, unspecified, not intractable, without status migrainosus]Onset: 914141-27-2800SjqfctpCejv disorders (20 sources)Bipolar disorder; Translations: [Bipolar disorder, unspecified] Onset: 211699-20-9878IzgtwxvLizrrbl (8 sources)Tinea pedis; Translations: [Tinea pedis]22-37-5147BruvrdflFrnfihoweyo deficiencies (2 sources)Vitamin D deficiency; Translations: [Vitamin D deficiency, unspecified]67-74-7114IgoqejqFkvkz connective tissue disease (5 sources)Other muscle spasm; Translations: [OTHER MUSCLE SPASM]Onset: 13-62-7055NctrirqtXrsin connective tissue disease (12 sources)Pain in toe; Translations: [Pain in right toe(s)]71-94-1828Gpmwqhrb Other connective tissue disease (6 sources)Transient neurological symptoms; Translations: [Other symptoms and signs involving the nervous system]38-53-5430KpbvrjdnCrzpv hereditary and degenerative nervous system conditions (2 sources)Restless legs; Translations: [Restless legs syndrome]06-26-2025 ChronicOther liver diseases (17 sources)Steatosis of liver; Translations: [Fatty (change of) liver, not elsewhere classified]Onset: 074057-50-9823OucpmzrCxweq liver diseases (1 source)Fatty (change of) liver, not elsewhere classified; Translations: [Fatty (change of) liver, not elsewhere classified]Onset: 09-79-0884XyntxcqJhiwx liver diseases (3 sources)Elevated liver enzymes level; Translations: [Abnormal levels of other serum enzymes]61-60-0509NcltaaysXbwns nervous system disorders (3 sources)Narcolepsy without cataplexy ; 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]ChronicOther nervous system disorders (20 sources)Narcolepsy; 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]Onset: 218700-93-8801ZnmvjkfYoxhi nervous system disorders (1 source)Enhanced physiological tremor; Translations: [Tremor, unspecified] EpisodicOther nervous system disorders (6 sources)Dysarthria; Translations: [Dysarthria and anarthria]06-26-2025 EpisodicOther nutritional; endocrine; and metabolic disorders (20 sources)Obese class II; Translations: [Obesity, Class II, BMI 35-39.9]Onset: 334195-41-6177XpwsmzpRsdhm nutritional; endocrine; and metabolic disorders (6 sources)Obesity caused by energy imbalance; Translations: [Morbid (severe) obesity due to excess calories]70-02-9183EbjkszrInfgu nutritional; endocrine; and metabolic disorders (6 sources)Body mass index 30+ - obesity; Translations: [Body mass index (BMI) 39.0-39.9, adult]58-36-5126ZtwvitwCmbnu nutritional; endocrine; and metabolic disorders (8 sources)Severe obesity; Translations: [Morbid (severe) obesity due to excess calories]Onset: 062803-54-8417QsqoanjFfnel nutritional; endocrine; and metabolic disorders (1 source)Morbid (severe) obesity due to excess calories; Translations: [Morbid (severe) obesity due to excess calories]Onset: 19-32-9146QhvedvrFfppg screening for suspected conditions (not mental disorders or infectious disease) (10 sources)Other specified abnormal findings of blood chemistry; Translations: [Elevated liver function tests]Onset: 973266-18-2678AqhoeeyuIgspn skin disorders (2 sources)Folliculitis; Translations: [Follicular disorder, unspecified] 99-71-0200PhlnbwnoHpuwy skin disorders (4 sources)Dystrophia unguium; Translations: [Nail dystrophy]82-84-4539Bjolsjnz Other upper respiratory disease (2 sources)Nasal congestion; Translations: [Nasal congestion]24-21-4938Fprimwdl Residual codes; unclassified (20 sources)Obstructive sleep apnea syndrome; Translations: [Obstructive sleep apnea (adult) (pediatric)]Onset: 043552-36-1183MaelljuDrtjhbkj codes; unclassified (2 sources)Hypersomnia; Translations: [Hypersomnia, unspecified]07-15-2025 ChronicSpondylosis; intervertebral disc disorders; other back problems (10 sources)Other spondylosis with radiculopathy, cervical region; Translations: [Spondylosis without myelopathy or radiculopathy, cervical region]Onset: 97-25-4243TkqrvcwMytmntaonpk; intervertebral disc disorders; other back problems (11 sources)Cervical disc disorder with radiculopathy, unspecified cervical region; Translations: [Cervicalgia]Onset: 32-98-7199HeemwqveFjbsigwgymux (1 source)CONTACT W/AND (SUSP) EXPOS COVID-19; Translations: [CONTACT W/AND (SUSP) EXPOS COVID-19]Onset: 78-77-0764Sqhzbmpqlvln (1 source)MTM Initial VisitOnset: 06-10-2025 Past or Other Problems Problem ClassificationProblemDateDocumented DateEpisodic/Chronic Administrative/social admission (3 sources)Patient encounter status; Translations: [Persons encountering health services in other specified circumstances]41-74-7979UezudookWjfvllm dysrhythmias (4 sources)Sinus tachycardia; Translations: [Tachycardia, unspecified]Onset: 729995-44-6893WoxalbtwKwbfzyu and fatigue (20 sources)Fatigue; Translations: [Other fatigue]Onset: EpisodicMood disorders (12 sources)Mood disordersOnset: 05-08-2025 Resolved: 068315-64-5411Yslnyibyrir chest pain (1 source)Chest pain; Translations: [Chest pain, unspecified]97-10-5619Ggblsnmv Other aftercare (1 source)Encounter for therapeutic drug level monitoring; Translations: [Encounter for therapeutic drug level monitoring]Onset: 55-06-9066PiwqpyewOuvjq nervous system disorders (20 sources)Tremor; Translations: [Tremor, unspecified]Onset: 05-14-2024 40-90-1626WpxmendgYrrov skin disorders (1 source)Eruption; Translations: [Rash and other nonspecific skin eruption] 02-67-8455OiqylanmXbgrfpkb codes; unclassified (20 sources)Nicotine-filled electronic cigarette user; Translations: [Tobacco use]Onset: 964678-23-0374Hfmrhhmk Results Test NameValueInterpretationReference RangeFacilityPlatelet CountOrdered By: Anuj Kenny on 44-75-1318Sngokmtss (Bld) [#/Vol]276 10*3/jRMvynhq254-854 [facility] HospitalComment on above:Result Comment: PERFORMED BY: [place] [id number] PATHOLOGIST DRILLING ENGINEERING MANAGER BENJY PEDRO M.D.Performed By: #### PT, PLT #### [facility] [address] [place] [address] USAProthrombin Time INROrdered By: Anuj Kenny on 07-22-2025 INR Coag (PPP) [Relative time]1.0 {INR}[facility] Comment on above:Result Comment: INR Therapeutic Range A) Pre- and Peroperative OAT started two weeks before surgery. NOT HIP SURGERY: 1.5 - 2.5 HIP SURGERY: 2 - 3 B) Primary and secondary prevention of venous THROMBOSIS: 2 - 3 C) Active venous thrombosis, pulmonary embolism and prevention of recurrent venous thrombosis: 2 - 3 D) Prevention of arterial thromboembolism including patients with mechanical heart valves: 3 - 4.5 PERFORMED BY: [place] [id number] PATHOLOGIST DRILLING ENGINEERING MANAGER BENJY PEDRO M.D.Performed By: #### PT, PLT #### [facility] [address] [place] [address] USAINR Therapeutic Range A) Pre- and Peroperative OAT started two weeks before surgery. NOT HIP SURGERY: 1.5 - 2.5 HIP SURGERY: 2 - 3B) Primary and secondary prevention of venous THROMBOSIS: 2 - 3C) Active venous thrombosis, pulmonary embolismand prevention of recurrent venous thrombosis: 2 - 3D) Prevention of arterial thromboembolismincluding patients with mechanical heart valves: 3 - 4.5PT Coag (PPP) [Time]10.9 sNormal9.0-12.9Magruder HospitalComment on above:Result Comment: A hematocrit value greater than 55% may lead to inaccurate results in coagulation testing. Patients having hematocrit values >55% require a special collection tube for coagulation studies. Please contact the laboratory at [phone] for redraw instructions.Performed By: #### PT, PLT #### [address] [address] hematocrit value greater than 55% may lead to inaccurate results in coagulation testing. Patientshaving hematocrit values >55% require a special collection tube for coagulation studies. Please contact the laboratory at [phone] for redraw instructions.US needle biopsyon 98-27-3141DM needle biopsySHELTERING [facility] [place] [address] [place] [address] Ultrasound Report Signed Patient: Marita Messina MR#: [id number] : 1985 Acct:[id number] Age/Sex: 40 / F ADM Date: 07/22/25 Loc: Room: Type: [facility] Attending Dr: Woodrow Valentino APRN Ordering Provider: Woodrow Valentino APRN Date of Service: 07/22/25 US/US needle biopsy: K76.0 - Fatty (change of) liver, not elsewhere classified Copies to: Woodrow Valentino APRN Ultrasound-guided Random Liver Biopsy HISTORY: Concern for hepatic fibrosis/cirrhosis. Fatty liver The biopsy device: 18-gauge by 10 cm Bard biopsy gun utilized. Core samples: 3 core samples were obtained. Informed consent was obtained discussing the procedure and risks. Patient agreed. The skin entry site was localized with ultrasound. Skin entry prepped and draped in sterile fashion with local lidocaine administered. The biopsy device was administered into the liver with ultrasound guidance. Adequate core biopsy samples obtained. Samples sent to pathology for further assessment. Patient states no immediate complications. No active bleeding identified with ultrasound. US/US needle biopsy IMPRESSION: Successful ultrasound-guided random liver biopsy. Impression dictated by: Anuj Kenny M.D. 07/22/2025 2:13 PM Dictation Location: [place] [address] Tech: Lucia Echeverria By: DAY 07/22/25 1413 Dictated By: Anuj Kenny DO 07/22/25 1408 Signed By: 07/22/25 1413[facility] Physician [facility] CenterMR BRAIN WO CONTRASTon [id number] BRAIN WO CONTRASTEXAM: MR BRAIN WO CONTRAST History: transient neurological symptoms Technique: Multiplanar multisequence MRI of the brain was performed without contrast. Comparison: None available Findings: Brain volume is age-appropriate. Ventricular morphology is within normal limits. No edema, hemorrhage, mass, mass effect, midline shift, or abnormal extra-axial fluid collection. Midline structures are within normal limits. The posterior fossa is within normal limits. There is no diffusion restriction. No susceptibility artifact is identified on the gradient echo sequence. The major intracranial vascular flow voids are maintained. Cranial nerve 7/8 complexes appear grossly unremarkable. The visualized paranasal sinuses and bilateral mastoid air cells are clear. IMPRESSION: No acute intracranial process. ELECTRONICALLY SIGNED BY: Stanley Morrow, LoramalNot AvailableANA Antinuclear Antibodieson 43-83-2138Unilmcwepow Abs, IFANegativeNormal.The Community Health Physician [facility] Medical CenterComment on above:Result Comment: Negative <1:80 Borderline 1:80 Positive >1:80 ICAP nomenclature: AC-0 For more information about Hep-2 cell patterns use ANApatterns.org, the official website for the International Consensus on Antinuclear Antibody (ED) Patterns (ICAP). Performed at: - [facility] [place] [id number] Senior Officer: Fish Sharma PhD, Phone: [phone] By: #### PT, PLT #### [place] [id number] PTMPjspj-2-Djzfwhzcuhx Phenotypeon 97-95-5392Duhly 1 Anti-Bzhmzmz741 mg/fKIfspjc480-260Laa Community Health Physician [facility] CenterComment on above: Performed By: #### PT, PLT #### [place] [address] USAPhenotype (P1)MMNormal.The [facility] Physician [facility] Comment on above:Result Comment: MM Phenotype is considered to be normal , producing normal serum levels of liniu-4-gjcyqxln inhibitor and not associated with clinical disease. Associated A1A total serum levels in other phenotypes and their incidence in the general population are shown in the table below. Phenotype Population % function A-1-AT Conc.* Incidence % compared to MM (Typical Range) MM 86.5% 100% (96 - 189) MS 8.0% 86% (83 - 161) MZ 3.9% 61% (60 - 111) FM 0.4% 100% (93 - 191) SZ 0.3% 41% (42 - 75) SS 0.1% 64% (62 - 119) ZZ 0.05% 19% (16 - 38) FS 0.05% 70% (70 - 128) FZ Unknown 46% (44 - 88) FF Unknown Unknown *A-1-AT concentration in the homozygous MM phenotype is taken as the reference normal. Percent deficiency in each phenotype is reported relative to this reference. Ranges used to confirm phenotype. Performed at: [address] [id number] Senior Officer: Fish Sharma PhD, Phone: [phone] Performed at: [address] [id number] Senior Officer: Nemesio Herring MD, Phone: [phone] By: #### PT, PLT #### [place] [address] USACeruloplasminon 60-55-3432Elrjhsyfocvxq10.5 mg/dLNormal 19.0-39.0The Community Health Physician GroupComment on above:Result Comment: Performed at: [address] [id number] Senior Officer: Fish Sahrma PhD, Phone: [phone] PERFORMED BY: [place] [address] PATHOLOGIST DRILLING ENGINEERING MANAGER BENJY PEDRO M.D.Performed By: #### HCV RX PCR, HAABT, CERULOP, HEMOCHROM, HBSAB, HCBIGM, HBCAB, SMAB, TTG, HBSAG, L-K MICRO, ALPHA PHEN, HAAB, MITOM2, IGG, PETH PROFILE, ED #### [facility] , #### LIPID, TIBURCIO #### [place] [address] USAFerritinon 72-90-2860Muermaww [Mass/Vol]91.1 ng/mLNormal 11.0-306.8The Community Health Physician GroupComment on above:Performed By: #### HCV RX PCR, HAABT, CERULOP, HEMOCHROM, HBSAB, HCBIGM, HBCAB, SMAB, TTG, HBSAG, L-K MICRO, ALPHA PHEN, HAAB, MITOM2, IGG, PETH PROFILE, ED #### [facility] , #### LIPID, TIBURCIO #### [place] [address] USAHep C Ab wRfx to Qnt PCRon 04-92-3759Lcmeoigyd C Virus AntibodyNon-ReactiveNormalNon ReactiveThe Community Health Physician GroupComment on above:Performed By: #### HCV RX PCR, HAABT, CERULOP, HEMOCHROM, HBSAB, HCBIGM, HBCAB, SMAB, TTG, HBSAG, L-K MICRO, ALPHA PHEN, HAAB, MITOM2, IGG, PETH PROFILE, ED #### [facility] , #### LIPID, TIBURCIO #### [facility] [address] [place] [address] USAInterpretation Hepatitis CCommentNormal.The Community Health Physician GroupComment on above:Result Comment: Not infected with HCV unless early or acute infection is suspected (which may be delayed in an immunocompromised individual), or other evidence exists to indicate HCV infection.Performed By: #### HCV RX PCR, HAABT, CERULOP, HEMOCHROM, HBSAB, HCBIGM, HBCAB, SMAB, TTG, HBSAG, L-K MICRO, ALPHA PHEN, HAAB, MITOM2, IGG, PETH PROFILE, ED #### [facility] , #### LIPID, TIBURCIO #### [place] [address] USAHepatitis A Antibody IgMon 97-46-1957Xwynolzmb A Antibody IgMNegativeNormalNegativeSt. Vincent[facility] Southside Physician GroupComment on above:Result Comment: A negative anti-HAV IgM result suggests no recent or current HAV infection.Performed By: #### HCV RX PCR, HAABT, CERULOP, HEMOCHROM, HBSAB, HCBIGM, HBCAB, SMAB, TTG, HBSAG, L-K MICRO, ALPHA PHEN, HAAB, MITOM2, IGG, PETH PROFILE, ED #### [facility] , #### LIPID, TIBURCIO #### [place] [address] USAHepatitis A Antibody Totalon 96-95-4580Ywlanjfbe A Antibody TotalNegativeNormalNegativeSt. [facility]side Physician GroupComment on above:Result Comment: Comment: The HAV total antibody assay [...] total antibody results to IgM (e.g., panel #[id number] HAV Antibody w/ Rfx).Performed By: #### HCV RX PCR, HAABT, CERULOP, HEMOCHROM, HBSAB, HCBIGM, HBCAB, SMAB, TTG, HBSAG, L-K MICRO, ALPHA PHEN, HAAB, MITOM2, IGG, PETH PROFILE, ED #### [facility] , #### LIPID, TIBURCIO #### [place] [address] USAHepatitis B Core Antibodyon 29-60-4133Ifvnofifu B Core AntibodyNegativeNormalNegativeSt. [facility] Physician GroupComment on above: Performed By: #### PT, PLT #### [place] [address] USAHepatitis B Core Antibody IgMon 68-27-9208Aolnewnlz B Core Antibody IgMNegativeNormalNegativeSt. [facility]side Physician GroupComment on above:Result Comment: Performed at: [address] [id number] Senior Officer: Fish Sharma PhD, Phone: [phone] By: #### HCV RX PCR, HAABT, CERULOP, HEMOCHROM, HBSAB, HCBIGM, HBCAB, SMAB, TTG, HBSAG, L-K MICRO, ALPHA PHEN, HAAB, MITOM2, IGG, PETH PROFILE, ED #### [facility] , #### LIPID, TIBURCIO #### [place] [id number] USAHepatitis B Surface Antibodyon 22-26-6701Lxisrmnwy B Surface AntibodyReactiveNormal.The Community Health Physician GroupComment on above: Result Comment: Non Reactive: Not immune to HBV infection. Anti-HBs undetectable or less than 10 mIU/mL. Reactive: Evidence of HBV immunity. Anti-HBs levels greater than 10 mIU/mL.Performed By: #### HCV RX PCR, HAABT, CERULOP, HEMOCHROM, HBSAB, HCBIGM, HBCAB, SMAB, TTG, HBSAG, L-K MICRO, ALPHA PHEN, HAAB, MITOM2, IGG, PETH PROFILE, ED #### [facility] , #### LIPID, TIBURCIO #### [place] [address] USAHepatitis B Surface Antigenon 82-53-9451FArFs Screen NegativeNormalNegativeThe [facility] Hospital - HazeltonComment on above:Result Comment: PERFORMED BY: [place] [id number] PATHOLOGIST DRILLING ENGINEERING MANAGER BENJY PEDRO M.D.Performed By: #### PT, PLT #### [place] [address] USAHereditary Hemochromatosis,DNAon 85-81-9174Joymsnzbrk HemochromatosisCommentNormal.The Community Health Physician GroupComment on above: Result Comment: Result: c.845G>A (p.Suh707Jxi) - Not Detected c.187C>G (p.Afu42Jnv) - Not Detected c.193A>T (p.Vwt20Aca) - Not Detected Not associated with increased risk to develop clinical symptoms of Hereditary Hemochromatosis. In symptomatic individuals, other causes of iron overload should be evaluated. See Additional Information and Comments. Additional Clinical Information: Hereditary hemochromatosis (HFE related) is an autosomal recessive iron storage disorder. Patients may have a genetic diagnosis of hereditary hemochromatosis and never show clinical symptoms. Clinical symptoms typically appear between 40 to 60 years in males and after menopause in females. Signs and symptoms may include organ damage, primarily in the liver, risk for hepatocellular carcinoma, diabetes, and heart disease due to iron accumulation. Life expectancy may be decreased in individuals who develop cirrhosis. Treatment for clinically symptomatic individuals may include therapeutic phlebotomy. Liver transplant may be used to treat end stage liver failure. For preventive care, monitoring for iron overload is recommended for patients who are homozygous for c.845G>A (p.Myh437Ymd) and have yet to experience clinical symptoms. Comments: The most common HFE variants associated with hereditary hemochromatosis are c.845G>A (p.Yhu764Fhb), c.187C>G (p.Dnk15Ftj), c.193A>T (p.Qxf01Oow). While patients homozygous for c.845G>A (p.Hsp754Tuv) are the most likely to present clinical symptoms, less than 10% develop clinically significant iron overload with tissue and organ damage. Genetic counseling is recommended to discuss the potential clinical implications of positive results, as well as recommendations for testing family members. Genetic Coordinators are available for health care providers to discuss results at [phone] Test Details: Three variants analyzed: c.845G>A (p.Zwx736Cax), commonly referred to as C282Y c.187C>G (p.Luk52Kev), commonly referred to as H63D c.193A>T (p.Pit32Bwx), commonly referred to as S65C Methods/Limitations: DNA Analysis of the HFE gene (NM_000410.4) was performed by PCR amplification followed by restriction enzyme digestion analyses. Results must be combined with clinical information for the most accurate interpretation. Molecular- based testing is highly accurate, but as in any laboratory test, diagnostic errors may occur. False positive or false negative results may occur for reasons that include genetic variants, blood transfusions, bone marrow transplantation, somatic or tissue-specific mosaicism, mislabeled samples, or erroneous representation of family relationships. This test was developed and its performance characteristics determined by [facility]. It has not been cleared or approved by the Food and Drug Administration. References: Laurent BR, Edwin PC, Lawrence KV, Navin LW, Delmy ; [place] [employer] Liver Diseases. Diagnosis and management of hemochromatosis: 2011 practice guideline by the [place] [employer] Liver Diseases. Hepatology. 2011 Mar;54(1):328-43. doi: 10.1002/hep.99655. PMID: 50182388; PMCID: MFV9007860. Harman G, Josh P, Geetha DW, Marline H, Alex O, Dylon S, Ramiro I, Jude M, Jose S. [facility] best practice guidelines for the molecular genetic diagnosis of hereditary hemochromatosis (HH). Eur J Hum Jessa. 2016 Dec;24(4):479-95. doi: 10.1038/ejhg.2015.128. Epub 2014Mar 17. PMID: 77068124; PMCID: GMQ4210611.Performed By: #### HCV RX PCR, HAABT, CERULOP, HEMOCHROM, HBSAB, HCBIGM, HBCAB, SMAB, TTG, HBSAG, L-K MICRO, ALPHA PHEN, HAAB, MITOM2, IGG, PETH PROFILE, ED #### [facility] , #### LIPID, TIBURCIO #### [place] [address] USAReviewed by:CommentNormal.[facility] Comment on above:Result Comment: Technical Component performed at [facility] [place] Professional Component performed by: Kurtis Mccall, PhD, [facility] [id number], [facility], [address] [facility] [place] [address] Performed at: - [facility] [place] [address] [facility], [place], [place] [id number] Senior Officer: Татьяна Blanco [facility], Phone: [phone] PERFORMED BY: [place] [id number] PATHOLOGIST DRILLING ENGINEERING MANAGER BENJY PEDRO M.D.Performed By: #### HCV RX PCR, HAABT, CERULOP, HEMOCHROM, HBSAB, HCBIGM, HBCAB, SMAB, TTG, HBSAG, L-K MICRO, ALPHA PHEN, HAAB, MITOM2, IGG, PETH PROFILE, ED #### [facility] , #### LIPID, TIBURCIO #### [facility] [address] [place] [id number] USAImmunoglobulin Vickey 23-00-8751Dpfuzzpdlkaykh G644 mg/dL Ficjiq025-3851Sru Community Health Physician GroupComment on above:Result Comment: Performed at: - [facility] [address] [id number] Senior Officer: Fish Sharma PhD, Phone: [phone] By: #### PT, PLT #### [address] [address] USALipid Panelon 87-85-6842Dartrfafwsl [Mass/Vol]121 mg/dLLow 140-200The Community Health Physician GroupComment on above:Result Comment: Chol less than 200 mg/dl low risk Chol 201-239 mg/dl borderline risk Chol 240 mg/dl and greater high riskPerformed By: #### HCV RX PCR, HAABT, CERULOP, HEMOCHROM, HBSAB, HCBIGM, HBCAB, SMAB, TTG, HBSAG, L-K MICRO, ALPHA PHEN, HAAB, MITOM2, IGG, PETH PROFILE, ED #### [facility] , #### LIPID, TIBURCIO #### [place] [id number] USACholesterol in HDL [Mass/Vol]51 mg/mUDaocjy80-59Xsm [facility] CenterComment on above:Result Comment: HDL CHOL ATP-III CLASSIFICATION Cardiovascular Risk HDL > or equal to 60 mg/dL LOW HDL < 40 mg/dL HIGHPerformed By: #### HCV RX PCR, HAABT, CERULOP, HEMOCHROM, HBSAB, HCBIGM, HBCAB, SMAB, TTG, HBSAG, L-K MICRO, ALPHA PHEN, HAAB, MITOM2, IGG, PETH PROFILE, ED #### [facility] , #### LIPID, TIBURCIO #### [place] [address] USACholesterol.total/Cholesterol in HDL [Mass ratio]2.4 {ratio}Normal<5.0The [facility] Hospital GroupComment on above:Result Comment: PERFORMED BY: [place] [address] PATHOLOGIST DRILLING ENGINEERING MANAGER BENJY PEDRO M.D.Performed By: #### HCV RX PCR, HAABT, CERULOP, HEMOCHROM, HBSAB, HCBIGM, HBCAB, SMAB, TTG, HBSAG, L-K MICRO, ALPHA PHEN, HAAB, MITOM2, IGG, PETH PROFILE, ED #### [facility] , #### LIPID, TIBURCIO #### [place] [id number] USALDL Cholesterol,Kzzblzzvtp33 mg/dLNormal0-100The Community Health Physician GroupComment on above:Result Comment: LDL ATP III CLASSIFICATION LDL less than 100 mg/dL Optimal LDL 100-129 mg/dL Near or above optimal LDL 130-159 mg/dL Borderline high LDL 160-189 mg/dL High LDL greater than 189 mg/dL Very highPerformed By: #### HCV RX PCR, HAABT, CERULOP, HEMOCHROM, HBSAB, HCBIGM, HBCAB, SMAB, TTG, HBSAG, L-K MICRO, ALPHA PHEN, HAAB, MITOM2, IGG, PETH PROFILE, ED #### [facility] , #### LIPID, TIBURCIO #### [place] [id number] USATriglyceride w/Pvoxnf938 mg/dLHigh0-149The Community Health Physician GroupComment on above:Result Comment: TRIG ATP III CLASSIFICATION TRIG less than 150 mg/dL Normal TRIG 150-199 mg/dL Borderline high TRIG 200-500 mg/dL High TRIG greater than 500 mg/dL Very high Standard traceable to the Center for Disease Conrtrol and Prevention (CDC) test method.Performed By: #### HCV RX PCR, HAABT, CERULOP, HEMOCHROM, HBSAB, HCBIGM, HBCAB, SMAB, TTG, HBSAG, L-K MICRO, ALPHA PHEN, HAAB, MITOM2, IGG, PETH PROFILE, ED #### [facility] , #### LIPID, TIBURCIO #### [place] [address] USAVLDL PBAINAITZTZ62 mg/dLNormalThe [facility] HazeltonComment on above:Performed By: #### HCV RX PCR, HAABT, CERULOP, HEMOCHROM, HBSAB, HCBIGM, HBCAB, SMAB, TTG, HBSAG, L-K MICRO, ALPHA PHEN, HAAB, MITOM2, IGG, PETH PROFILE, ED #### [facility] , #### LIPID, TIBURCIO #### [place] [address] USALiver-Kidney Microsomal Abon 90-95-9416Atzdl-Kidney Microsomal Ab<1.4Owxkck4.0-20.0The [facility] - HazeltonComment on above: Result Comment: Negative 0.0 - 20.0 Equivocal 20.1 - 24.9 Positive >24.9 LKM type 1 antibodies are detected in patients with autoimmune hepatitis type 2 and in up to 8% of patients with chronic HCV infection. Performed at: [place] [id number] Senior Officer: Fish Sharma PhD, Phone: [phone] By: #### PT, PLT #### [place] [id number] USAMitochondrial (M2) Antibodyon 86-36-1600Gmsvqxmbxxicm (M2) Antibody<20.7Lxpcgf6.0-20.0The [facility] HazeltonComment on above:Result Comment: Negative 0.0 - 20.0 Equivocal 20.1 - 24.9 Positive >24.9 Mitochondrial (M2) Antibodies are found in 90-96% of patients with primary biliary cirrhosis. Performed at: [address] [id number] Senior Officer: Fish Sharma PhD, Phone: [phone] By: #### PT, PLT #### [place] [address] USAPhosphatidylethanol Profileon 06-10-2025 Phosphatidylethanol (PEth) Qnt50 ng/mLNormal.[facility] Comment on above:Result Comment: Analyzed compound: PEth 16:0/18:1. 9-ifodhsfdw-0-jiteot-fm-puyjtoe-3-phosphoethanol. Analysis performed by Liquid Chromatography with Tandem Mass Spectrometry (LC/MS/MS). Detection limit: 20 ng/mL PEth levels in excess of 20 ng/mL are considered evidence of moderate to heavy ethanol consumption. However, the Center for Substance Abuse Treatment (CSAT) advises caution in interpretation and use of biomarkers alone to assess alcohol use. Results should be interpreted in the context of all available clinical and behavioral information. Reference: Substance Abuse and Mental Health Services Administration (2012). The Role of Biomarkers in the Treatment of Alcohol Use Disorders , 2012 Revision. Advisory, Volume 11, Issue 2. This test was developed and its performance characteristics determined by [facility]. It has not been cleared or approved by the Food and Drug Administration. Performed at: [email or web address] [address] [id number] Senior Officer: Glory Chavez [facility], Phone: [phone] PERFORMED BY: [place] [address] PATHOLOGIST DRILLING ENGINEERING MANAGER BENJY PEDRO M.D.Performed By: #### PT, PLT #### [place] [address] USAPhosphatidylethanol (PEth) ScnPositiveCritically abnormal. The Community Health Physician GroupComment on above:Performed By: #### PT, PLT #### [place] [address] USASmooth Muscle Antibodyon 84-25-7944Cnvesg Muscle Antibody4 Normal0-19The Community Health Physician GroupComment on above:Result Comment: Negative 0 - 19 Weak positive 20 - 30 Moderate to strong positive >30 Actin Antibodies are found in 52-85% of patients with autoimmune hepatitis or chronic active hepatitis and in 22% of patients with primary biliary cirrhosis.Performed By: #### PT, PLT #### [facility] [address] [place] [address] USAtTG IgA/IgG Transglutaminaseon 34-18-3185R- Transglutaminase (tTG) IgA<2Bgplwz8-4Ane Community Health Physician GroupComment on above:Result Comment: Negative 0 - 3 Weak Positive 4 - 10 Positive >10 Tissue Transglutaminase (tTG) has been identified as the endomysial antigen. Studies have demonstr- ated that endomysial IgA antibodies have over 99% specificity for gluten sensitive enteropathy.Performed By: #### PT, PLT #### [facility] [address] [place] [address] USAT-Transglutaminase (tTG) IgG<1Ddhitu7-0Hfz Community Health Physician GroupComment on above:Result Comment: Negative 0 - 5 Weak Positive 6 - 9 Positive >9Performed By: #### PT, PLT #### [facility] [address] [place] [address] USAUS LIVERon 84-80-8928WP LIVERUS LIVER History: Elevated liver enzymes. Technique: Sonography [...] the gallbladder. ELECTRONICALLY SIGNED BY: Major Gutierrez MDNormalNot AvailableLaboratory - Microbiology and Antimicrobial susceptibilityon 66-26-6119ABSV-CoV-2 (COVID-19) RNA MEGAN+probe Ql (Unsp spec)-NOMS HealthcareNo Panel Informationon 01-10-7114MPC A-NOMS HealthcareFLU B-NOMS HealthcareInterpretation and review of laboratory resultsNormalNOMercy Hospital Joplin HealthcareALT No additional P-5'-P [Catalytic activity/Vol]on 18-39-2600UDK [Catalytic activity/Vol]51 U/LHigh0-31[facility] Medical CenterComment on above:Performed By: #### 1744-2, 1920-04, 2571-04, 2088-09 #### [facility] ([id number]) [address], [address] [place], [place] [address]XWUzs 76-94-5540SRZ [Catalytic activity/Vol]38 U/LNormal0-41 [facility] Medical CenterComment on above:Performed By: #### 1744-2, 1920-04, 2571-04, 2088-09 #### [facility] ([id number]) [address], [address] [place], [place] [address]ZRRGBN LDLon 37-06-1891Hasvuvsjmih in LDL [Mass/Vol]65 mg/dL Normal<130Henry County HospitalComment on above:Result Comment: LDL <100 mg/dL - Desirable LDL 130-159 mg/dL - Borderline High Risk LDL >160 mg/dL - High Risk Performed By: #### 1744-2, 1920-04, 2571-04, 2088-09 #### [facility] ([id number]) [address], [address] [place], [place] [address]JEPNVVVZGTNHbx 78-00-7323Stasqcmdeqev [Mass/Vol]234 mg/dLHigh 27-150ProTexas Health FriscoComment on above:Performed By: #### 1744-2, 1920-04, 2571-04, 2088-09 #### [facility] ([id number]) [address], [address] [place], [place] [address]SA CERVICAL SPINE WO CONTon 73-94-3395GI CERVICAL SPINE WO CONT MR CERVICAL SPINE [...] by Luis A Myles on 09/16/2024 2:09 [facility] Gynecology Office/Clinic Noteon 63-62-9504Ektjlfvwdg Office/Clinic NoteChief Complaint Annual. History of Present Illness Pelvic [...] and now is 89#. denies dietary changes. Interestedin Weight loss meds. Thinks her insurance will cover after 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 SAND CASTER Additional Details Contraception Contraception TypeIntrauterine device, Vasectomy [...] reflux Anxiety Asthma D (more content not included)...[facility] HospitalCovid-[facility] PCR (CVDTBH)on 60-39-4484MTYG-CoV-2 (COVID-19) RNA MEGAN+probe Ql (Unsp spec)Not detectedNormalNOT DETECTEDThe [facility] HospitalComment on above:Result Comment: This test is not yet approved or cleared by the [place] FDA. When there are no FDA-approved or cleared tests available, and other criteria are met, FDA can make tests available under an emergency access mechanism called an Emergency Use Authorization (EUA). The EUA for this test is supported by the [employer]neyman Plumber of Health and Human Service's (HHS's) declaration [...] of clinical signs and symptoms consistent with SARS-CoV-2.Performed By: #### CVDTB #### [facility] [address] [place] [address] Dr. Adis Gregory-19 PCR ([facility])on 75-61-5644LOYN-CoV-2 (COVID-19) RNA MEGAN+probe Ql (Unsp spec)Not detectedNormalNOT DETECTEDThe [facility] Comment on above:Result Comment: This test is not yet approved or cleared by the [place] FDA. When there are no FDA-approved or cleared tests available, and other criteria are met, FDA can make tests available under an emergency access mechanism called an Emergency Use Authorization (EUA). The EUA for this test is supported by the [place] of Health and Human Service's (HHS's) declaration that circumstances exist to justify the emergency use of in vitro diagnostics for the detection and/or diagnosis of the virus that causes COVID- 19. This EUA will remain in effect (meaning [...] of clinical signs and symptoms consistent with SARS-CoV-2.Performed By: #### CVDTBH #### [facility] [address] [place] [address] Dr. Adis Park [id number] (NEUWIL) MARITA MESSINA ([id number]) 1985 F Date Time Provider Department 07/04/21 [...] evening Encounter Status:Closed by RAYMOND MEDINA on 07/05/21[facility]SHARONludmila [id number] (NFWH) MARITA MESSINA ([id number]) 1985 F Date Time Provider Department 05/27/21 [...] MONTH. Encounter Status:Closed by RAYMOND MEDINA on 05/30/21NoTriHealth Bethesda North HospitalOBSOLETEludmila 83-87-6589OSRKDHHTRgmenn (NFWH) MARITA MESSINA ([id number]) 1985 F Date Time Provider Department 04/26/21 RAYMOND MEDINAWH During your visit today, we recorded the [...] days. Encounter Status:Closed by RAYMOND MEDINA on 04/27/21NoTriHealth Bethesda North HospitalCoding Summary.on 52-36-1616Guqwxd Summary.CODING DATE: 05/31/2019 FINAL [facility] STATUS: Home (Routine DC) PAYOR: Medicaid EAPG [...] By: Prachi Andres Date Saved: 05/31/2019 06:25 [facility] CenterGy[facility] Office/Clinic Noteon 80-56-6604Uehkvooalj Office/Clinic NoteChief Complaint Colposcopy Lat Pap 05-05-2019 ASCUS HPV [...] and next steps Ordered: Colposcopy with biopsy 63139 Pathology Tissue Exam Pathology Tissue Exam Follow-up With When Contact Information She BINGHAM CNP In 1 year [email or web address] Additional Instructions: She BINGHAM CNP Only if needed [email or web address] Additional Instructions: Problem List/Past Medical History Ongoing [...] mellitus type 2: Father and Grandparent. Hyperlipidemia: Father.[facility] HospitalComment on above:Result Comment: Electronically Signed By: She BINGHAM CNP\Date and Time Signed: 05/20/19 14:48 EDTCoding Summary.on 16-20-9498Lxtzdy Summary.CODING DATE: 05/06/2019 FINAL [facility] STATUS: Home (Routine DC) PAYOR: Medicaid EAPG [...] Tish Dean CphT Date Saved: 05/06/2019 09:14 amNSt. Anthony's HospitalPAP [id number] 85-92-5691Qgjhhotb report Cyto stain Doc (Cvx/Vag)NoteAbnormMercy Health Tiffin HospitalComment on above:Result Comment: TESTS RESULT FLAG UNITS REF RANGE LAB Clinician Provided Cytology Information Source.............Cervix Other..............IUD No. of containers..01 ThinPrep Vial DIAGNOSIS: [A] 01 EPITHELIAL CELL ABNORMALITY. ATYPICAL SQUAMOUS CELLS OF UNDETERMINED SIGNIFICANCE (ASC-US). 01 Satisfactory for evaluation. Endocervical and/or squamous metaplastic cells (endocervical component) are present. 01 Maricarmen Stovall, Foxer (ASCP) 01 Jennifer Lopes MD, Pathologist 01 [...] Low,>-Panic High,A-Abnormal,AA-Critical Abnormal Performed at: 01 [facility] [place] [address] Soraya Cabrera MD, Hadezpqjj By: #### [id number], [id number] #### [facility] [address] [place] [address]MMQ 16+18+31+33+35+39+45+51+52+56+58+59+68 DNA Probe+sig amp Ql (Cvx)PositiveAbnormalNegativeFisher Johns Hopkins HospitalComment on above:Result Comment: This high-risk HPV test detects thirteen high-risk types (16/18/31/33/35/39/45/51/52/56/58/59/68) without differentiation. Performed at: [facility] [place] [id number] MD Rick Lira Performed at: =G [facility] [place] [id number] MD Rick PereyraaliPerformed By: #### [id number], [id number] #### [facility] [address] [place], [place] [address]Kygamkldq Read PAPon 85-96-7518Jbdbypfvuap review Noe (Unsp spec) [Interp]NoteFishGrace Medical CenterComment on above:Result Comment: TESTS RESULT FLAG UNITS REF RANGE LAB Physician Read Pap Note 01 Performed FLAG LEGEND: L-Low Normal,H-High Normal,LL-Alert Low,HH-Alert High <-Panic Low,>-Panic High,A-Abnormal,AA-Critical Abnormal Performed at: 01 [facility] [place] [address] [place] [address] Soraya Cabrera MD, Performed at: [facility] [address] [place], [place] [id number] MD Rick PereyraaliPerformed By: #### [id number], [id number] #### [facility] [address] [place], [place] [address]Ovxvhrupbw Office/Clinic Noteon 41-06-3637Hrgxjwbxco Office/Clinic NoteChief Complaint Annual LPS 03/25/2018 ASCUS +HPV Obstetric [...] with heavy/moderate flow, then light spotting, has severecramping and pelvic pain during menses Last colonoscopy: [...] pain, No painful intercourse, No hair loss/growth, Nohot flashes, has Paragard IUD Breast: No breast [...] normal, no masses, no nipple discharge, no erythema/warmth/tenderness, axillae normal. Cardiovascular: RRR, no murmurs, no [...] results Ordered: Office Visit Level 3 Est 11110 PAP [id number] w/HPV HR US Pelvis Non-OB Complete 2. Pelvic pain (R10.2: Pelvic and perineal pain) US ordered, will fax to [facility] Ordered: Office Visit Level 3 Est 91214 US Pelvis Non-OB Complete Visit for routine ob/gyn physician exam (Z01.419: Encounter for gynecological examination [...] Preventive Med 18 to 39 years Est 72[address] Follow-up No qualifying data available Problem List/Past [...] mellitus type 2: Father and Grandparent. Hyperlipidemia: Father.[facility] HospitalComment on above:Result Comment: Electronically Signed By: She BINGHAM CNP\Date and Time Signed: 04/29/19 11:36 EDTPAP [id number] 59-64-8446Jidjtgmjrfzpy Body SiteCERVIX [facility] HospitalComment on above:Performed By: #### [id number], [id number] #### [facility] [address] [place], [place] [address]Feftc Patient InformationIUDNoProMedica Fost[facility] Comment on above:Performed By: #### [id number], [id number] #### [facility] [address] [place] [address] Vital Signs Date TimeVital SignValuePerforming TnbtyymsdFavgylbb90-55-6679 10:40-0500 Diastolic blood wfaewhln43 mm[Hg]Jo-Ann Gee MD Work Phone: [phone]11-12-2025 10:40-0500 Heart rate76 /Sina Gee MD Work Phone: [phone]11-12-2025 10:40-0500 Respiratory rate18 /Sina Gee MD Work Phone: [phone]11-12-2025 10:40-0500 SaO2% (BldA) [Mass fraction]100 %Jo-Ann Gee MD Work Phone: [phone]11-12-2025 10:40-0500 Systolic blood otpxbmcj733 mm[Hg]Jo-Ann Gee MD Work Phone: [phone] [place], [place] [address]11-12-2025 08:24-0500 Body ppykxb185.48 Lilibeth Gee MD Work Phone: [phone] [place], [place] [address]11-12-2025 08:24-0500 Body uvahym98.18 kgJo-Ann Gee MD Work Phone: [phone] [place], [place] [address]10-17-2025 13:36-0400 Body mass index (BMI) [Ratio]34.86 kg/x7XlxaxDorcas Peralta FIRE CONTROL OFFICER Work Phone: [phone] [place], [place] [address]0-17-2025 13:36-0400Body copnvg77.46 kgDorcas Peralta FIRE CONTROL OFFICER Work Phone: [phone] [place], [place] [address]0-17-2025 13:36-0400Diastolic blood lwfvimii06 mm[Hg]Dorcas Peralta FIRE CONTROL OFFICER Work Phone: [phone] [place], [place] [address]0-17-2025 13:36-0400Heart rate92 /min Dorcas Peralta FIRE CONTROL OFFICER Work Phone: [phone] [place], [place] [address]0-17-2025 13:36-9330OpN8% (BldA) [Mass fraction]98 %Dorcas Peralta FIRE CONTROL OFFICER Work Phone: [phone] [place], [place] [address]0-17-2025 13:36-0400Systolic blood yhafwhpz822 mm[Hg]Dorcas Peralta FIRE CONTROL OFFICER Work Phone: [phone] [place], [place] [address]0-01-2025 11:21-0400Body ffzzne972.[address]10-01-2025 11:21-0400Body mass index (BMI) [Ratio] 35.12 kg/m[address]10-01-2025 11:21-0400Body jnsory28.09 kg Pmh [address] [place], [place] [address]9-17-2025 08:45-0400Body umhshd479.48 Lilibeth Gee MD Work Phone: [phone] [place], [place] [address]309-17-2025 08:45-0400 Body mass index (BMI) [Ratio]35.4 kg/z9KkdetcpiJo-Ann Gee MD Work Phone: [phone]09-17-2025 08:45-0400 Body yceddf84.99 kgJo-Ann Gee MD Work Phone: [phone]09-17-2025 08:45-0400 Diastolic blood zgripcmg95 mm[Hg]Jo-Ann Gee MD Work Phone: [phone]09-17-2025 08:45-0400 Heart rate90 /minJo-Ann Gee MD Work Phone: [phone]09-17-2025 08:45-0400 Systolic blood hcsyrtjv367 mm[Hg]Jo-Ann Gee MD Work Phone: [phone]08-29-2025 10:57-0400 Body mass index (BMI) [Ratio]35.48 kg/y5Algfo Kathryn FIRE CONTROL OFFICER Work Phone: [phone] CenterMlmliolgmk67-35-2174 10:57-0400Body ljehzz63 kg Dorcas Kathryn FIRE CONTROL OFFICER Work Phone: [phone] [place], [place] [address]Sobghotftc64-67-8699 10:57-0400Diastolic blood wzwzobpr55 mm[Hg]Dorcas Kathryn FIRE CONTROL OFFICER Work Phone: [phone] CenterBdlqbmerxk91-48-3893 10:57-0400Heart pqjc387 /min Dorcas Kathryn FIRE CONTROL OFFICER Work Phone: [phone] [address]Ojcnkdklay30-92-7589 10:57-7974SrL4% (BldA) [Mass fraction]98 %Dorcas Kathryn FIRE CONTROL OFFICER Work Phone: [phone] [address]Evnffmejwe39-52-1597 10:57-0400Systolic blood mspkigvi610 mm[Hg]Dorcas Kathryn FIRE CONTROL OFFICER Work Phone: [phone]08[place] [address]Xnnzpjasov34-93-2103 16:15-0400Body acblsq240.5 cmSteven Rusher DPM Work Phone: [phone] [place], [place] [address]Obsfshglse98-39-3120 16:15-0400Body mass index (BMI) [Ratio]37.09 kg/n6Xlubaq Rusher DPM Work Phone: [phone] [place] [address]-19-2025 16:15-0400Body peiwqg43.99 kgSteven Rusher DPM Work Phone: [phone] [place], [place] [address]Cycpkrjasm44-19-2100 11:13-0400Body ownlsh134.5 Alma Peralta FIRE CONTROL OFFICER Work Phone: [phone] [place], [place] [address]Jdzpwsbdsy82-89-6917 11:13-0400Body mass index (BMI) [Ratio]37.09 kg/h9IxcdgDorcas Peralta FIRE CONTROL OFFICER Work Phone: [phone] [place], [place] [address]Njuomiihki05-61-8077 11:13-0400Body .99 kgDorcas Peralta FIRE CONTROL OFFICER Work Phone: [phone] [place], [place] [address]Etgpiuvxpk32-43-2553 11:13-0400Diastolic blood mm[Hg]Dorcas Peralta FIRE CONTROL OFFICER Work Phone: [phone] [place], [place] [address]Kzfvisanqo63-31-6112 11:13-0400Heart rate83 /min Dorcas Peralta FIRE CONTROL OFFICER Work Phone: [phone] [place], [place] [address]Xvfbcgduml85-38-3705 11:13-2520ZfI6% (BldA) [Mass fraction]97 %Dorcas Peralta FIRE CONTROL OFFICER Work Phone: [phone] [place], [place] [address]Dvphjjwjan97-31-0368 11:13-0400Systolic blood alpxwbvc120 mm[Hg]Dorcas Peralta FIRE CONTROL OFFICER Work Phone: [phone] [place], [place] [address]Vhdkwqkbja82-63-5932 16:10-0500Body iwvqii762.5 cmSteven Rusher DPM Work Phone: [phone] [place], [place] [address]Huixmfvhjq02-37-3440 16:10-0500Body mass index (BMI) [Ratio]40.42 kg/q4Wvjhso Rusher DPM Work Phone: [phone] [place], [place] [address]Xdchcazttd15-13-2067 16:10-0500Body .25 kgSteven Rusher DPM Work Phone: [phone] [place], [place] [address]Wdndjezepp52-03-2155 11:03-0500Body rinlof517.5 Alma Peralta FIRE CONTROL OFFICER Work Phone: [phone] [place], [place] [address]Rperpqknga92-18-1413 11:03-0500Body mass index (BMI) [Ratio]40.57 kg/f2RwvyoDorcas Peralta FIRE CONTROL OFFICER Work Phone: [phone] [place], [place] [address]Ajzkxcqoju17-22-1025 11:03-0500Body qybjjw301.61 kgDorcas Peralta FIRE CONTROL OFFICER Work Phone: [phone] [place], [place] [address]Opnhpukdlr49-64-8070 11:03-0500Diastolic blood mm[Hg]Dorcas Peralta FIRE CONTROL OFFICER Work Phone: [phone] [place], [place] [address]Gxmwpdijwz22-98-1673 11:03-0500Heart kmop310 /min Dorcas Peralta [employer]RE CONTROL OFFICER Work Phone: [phone] [place], [place] [address]Wnoxcneerr81-59-5087 11:03-2294KcK5% (BldA) [Mass fraction]97 %Dorcas Peralta [employer] CONTROL OFFICER Work Phone: [phone] [place], [place] [address]Nvbuisgltt00-83-2122 11:03-0500Systolic blood xxaqkkuu685 mm[Hg]Dorcas Peralta FIRE CONTROL OFFICER Work Phone: [phone] [place], [place] [address]Vxdpjuijbj12-84-1193 15:35-0500Body inllea894.5 Tanikatelam Levineher DPM Work Phone: [phone] [place], [place] [address]Tkrpvgtzly89-38-2813 15:35-0500Body mass index (BMI) [Ratio]40.6 kg/p6Inbybx Rusher DPM Work Phone: [phone] [place] [address]-25-2024 15:35-0500Body nuekck919.7 kgSteven Rusher DPM Work Phone: [phone] [place], [place] [address]Pbqiivjaoe90-56-3658 10:54-0400Body goytjz163.5 Alma Peralta FIRE CONTROL OFFICER Work Phone: [phone] CenterSqteaiiixv43-66-9067 10:54-0400Body mass index (BMI) [Ratio]39.36 kg/d1BmwuzDorcas Peralta FIRE CONTROL OFFICER Work Phone: [place] [address]Exsjgedhwd76-52-3036 10:54-0400Body ghqoap99.61 kgDorcas Peralta FIRE CONTROL OFFICER Work Phone: [place] [address]Jcnsgjbrlx18-61-8847 10:54-0400Diastolic blood caorktmg86 mm[Hg]Dorcas Peralta FI[employer] CONTROL OFFICER Work Phone: [place] [address]Cevpuontqk09-56-5000 10:54-0400Heart rate98 /min Dorcas Peralta [employer]OL OFFICER Work Phone: [place] [address]Whnzklxkuy15-97-9954 10:54-5603CpU4% (BldA) [Mass fraction]97 %Dorcas Peralta FIRE CONTROL OFFICER Work Phone: [place] [address]Byavyvtlwk59-43-5939 10:54-0400Systolic blood annkudfc075 mm[Hg]Dorcas Peralta FIRE CONTROL OFFICER Work Phone: [phone] [address]Glbbpbvilc33-47-7852 10:24-0400Body mass index (BMI) [Ratio]38.99 kg/z9GawccDorcas Peralta FIRE CONTROL OFFICER Work Phone: [place] [address]Lzhwborthn41-96-9353 10:24-0400Body mbejnb12.71 kgDorcas Peralta FIRE CONTROL OFFICER Work Phone: [place] [address]Xfgqyzuafg56-05-7709 10:24-0400Diastolic blood dugmulrw90 mm[Hg]Dorcas Peralta [employer] CONTROL OFFICER Work Phone: [place] [address]Gpyqlhostz30-70-6342 10:24-0400Heart rate93 /min Dorcas Peralta [employer]OL OFFICER Work Phone: [place] [address]Wdomfmodjc86-84-3991 10:24-9381GeZ0% (BldA) [Mass fraction]99 %Dorcas Peralta FIRE CONTROL OFFICER Work Phone: [place] [address]Ijecxbdgtg90-02-7040 10:24-0400Systolic blood mm[Hg]Dorcas Peralta FIRE CONTROL OFFICER Work Phone: [facility] CenterZnbrcauhrn76-72-4816 11:30-0400Body dopxnk023.5 cmSkenton Peralta FIRE CONTROL OFFICER Work Phone: [facility] CenterPavyaabdgb02-13-1135 11:30-0400Body mass index (BMI) [Ratio]39.03 kg/t5TvddfDorcas Peralta FIRE CONTROL OFFICER Work Phone: [facility] CenterQdtochxaba88-57-9356 11:30-0400Body jcwhee25.8 kg Dorcas Peralta FI[employer] CONTROL OFFICER Work Phone: [facility] CenterUmqvoigrun55-28-4204 11:30-0400Diastolic blood jluifozs67 mm[Hg]Dorcas Peralta [employer]OL OFFICER Work Phone: [facility] CenterWqeoadqaxu21-81-0471 11:30-0400Heart egki274 /min Dorcas Peralta [employer]OL OFFICER Work Phone: [facility] CenterXrxjuvufey72-50-9175 11:30-4362QsP7% (BldA) [Mass fraction]98 %Dorcas Peralta FIRE CONTROL OFFICER Work Phone: [facility] CenterHkinljyiuf89-89-4554 11:30-0400Systolic blood fbywfafu882 mm[Hg]Dorcas Peralta FI[employer] CONTROL OFFICER Work Phone: [facility] CenterPrwoxwdcky11-79-4848 10:18-0400Body .5 cmJurgen English MD Work Phone: [phone] [place], [place] [address]308-26-2024 10:18-0400Body mass index (BMI) [Ratio]38.67 kg/l4NdlmweppJurgen English MD Work Phone: [phone]08-26-2024 10:18-0400Body tzagvt12.89 kgJurgen English MD Work Phone: [phone]08-26-2024 10:18-0400Diastolic blood yplzppgz32 mm[Hg]Jurgen English MD Work Phone: [phone])183-[address] [place], [place] [address]308-26-2024 10:18-0400Heart rate 99 /minJurgen English MD Work Phone: [phone] [place], [place] [address]308-26-2024 10:18-7224WcG8% (BldA) [Mass fraction]99 %Jurgen English MD Work Phone: [facility]08-26-2024 10:18-0400Systolic blood wykdgvmp011 mm[Hg]Jurgen English MD Work Phone: [facility]03-02-2020 14:27-0500BMI (Body Mass Index)35.43 kg/n9FnswmhegLincolnHealth, PY74-97-9544 14:27-0500 Body Sqecsqvescf87.59 [degF][facility], GK70-53-8778 14:27-0500Body raccim55.72 kgLincolnHealth, ES90-25-0102 14:27-0500BP Jpbpeickd36 mm[Hg][facility], TR51-51-4221 14:27-0500BP Dbnfebgu344 mm[Hg][facility], ML65-96-4973 14:27-8168Mgunaz260 cmLincolnHealth, YD28-97-1384 14:27-0500 Pulse Qfhxhmtd22 %[facility], [place] Encounters Encounter DateEncounter TypeCare ProviderFacilityStart: 07-22-2025 End: 84-18-6741Okjbejbyj to same day surgery [facility] Work Phone: Start: 07-22-2025 End: 74-62-1822bnamwivulfYjbjnbqtAnurag GeeFacility:[facility]ightart: 07-15-2025 End: 10-52-3483TwnedpDarryl Peralta NP Work Phone: [facility] BeachesComment on above:Transient neurological symptoms (Primary Dx); Dysarthria; BOGDAN (obstructive sleep apnea); HypersomniaStart: 07-07-2025 End: 12-15-8661tocogllgefMMUCJ KAMPFERNot AvailableStart: 06-29-2025 End: 25-67-2389Zgfaaa-up encounterSkenton Peralta FIRE CONTROL OFFICER Work Phone: [facility] HospitalComment on above: Comprehensive metabolic panel, CBC and differential, Ferritin, Additional followed-up results: 4Start: 06-26-2025 End: 56-41-6084Raxnoo flowsChad Peralta FIRE CONTROL OFFICER Work Phone: [facility] MedicineStart: 06-26-2025 End: 76-99-8611Ryfrjd flowsheetSkenton Peralta FIRE CONTROL OFFICER Work Phone: [facility] MedicineStart: 06-26-2025 End: 12-05-0473Cetuww outpatient visit 25 minutesSalety Peralta FIRE CONTROL OFFICER Work Phone: NO[facility] HospitalComment on above:Restless leg syndrome (Primary Dx); Dysarthria; Transient neurological symptomsStart: 06-26-2025 End: 46-03-0613dijsmuzfesTHETW EMILIANOUZIELNot AvailableStart: 06-10-2025 End: 04-11-6884dfaksbpxsvNAZJYXCS G HOHMANProMedica Sutter Davis Hospitaltart: 06-10-2025 End: 16-92-3743Djncryp encounter procedureTemporary Fibroscan-[facility] Work Phone: Start: 06-10-2025 End: 97-67-1922mhssrxpjnrGkyzoctbAnurag Gee MD Work Phone: [facility] Work Phone: Comment on above:Hyperlipidemia, unspecified hyperlipidemia type (Primary Dx)Start: 86-00-8130Enh-patient / Non-visitTico Amador MD-[facility] Work Phone: Start: 05-27-2025 End: 54-10-8017kjeqyonhbpRwrlwkfyAnurag Gee MD Work Phone: [facility] Work Phone: Start: 05-27-2025 End: 95-35-7236Pinqjnj encounter Avtar Valentino APRSsm Health Care Work Phone: Start: 05-22-2025 End: 70-13-9477Htfvdm Natali Gee MD Work Phone: [facility] HospitalComment on above:Hepatic steatosis (Primary Dx)Start: 05-21-2025 End: 84-88-7373Esskyp-up encounterJo-Ann Gee MD Work Phone: [facility] HospitalComment on above:US LIVER Start: 05-21-2025 End: 62-39-7766zwaeerloddGCRSS KAMPFERNot AvailableStart: 05-13-2025 End: 17-29-8966Giqsfxvjl encounterCathy [facility] Medication ManagementStart: 05-12-2025 End: 06-61-8747Ubgbwn Jewell Peralta FIRE CONTROL OFFICER Work Phone: [facility] HospitalComment on above:Elevated liver enzymes (Primary Dx); Hepatic steatosisBipolar affective disorder, remission status unspecified (HCC) (Primary Dx)Start: 05-08-2025 End: 63-86-1073Imetzj flowsChad Peralta FIRE CONTROL OFFICER Work Phone: [facility] MedicineStart: 05-08-2025 End: 67-64-2364Iaiuch Keli Peralta FIRE CONTROL OFFICER Work Phone: n[facility] MedicineStart: 05-08-2025 End: 08-94-6107Wppmilk encounter Jorge Luis Peralta FIRE CONTROL OFFICER Work Phone: [facility] HospitalComment on above:Encounter for wellness examination (Primary Dx); Obstructive sleep apnea syndrome; Mixed hyperlipidemia ; Bipolar affective disorder, remission status unspecified (HCC); Obesity, Class II, BMI 35-39.9; Vitamin D deficiency; Nasal congestion; Moderate persistent asthma without complication (HCC); Intractable migraine without aura and without status migrainosus ; Gastroesophageal reflux disease without esophagitis; Hepatic steatosis; Spondylosis of cervical spineStart: 05-08-2025 End: 61-13-3569Frnlprt encounter statusDorcas Peralta FIRE CONTROL OFFICER Work Phone: [facility] Work Phone: Start: 05-08-2025 End: 90-80-2774lpeoeojwbvQHVAI KAMPFERNot AvailableStart: 05-05-2025 End: 78-25-6680UxvziyKtpedskPaloma Richards Physicians CardiologyComment on above:Med RefillStart: 04-28-2025 End: 04-98-9362Mvowht outpatient visit 15 minutesSteven A Rusher DPM Work Phone: n[facility] [place] PodiatryComment on above:Dermatophytosis of nail (Primary Dx); Dystrophic nail; Pain around toenail, right foot; Pain around toenail, left footStart: 04-28-2025 End: 15-87-7889mhawushqfaHLNUZR A RUSHERNot AvailableStart: 04-28-2025 End: 81-42-3038Pzhxws flowsheetSteven A Rusher DPM Work Phone: n[facility] [place] PodiatryStart: 04-28-2025 End: 85-23-4967Lpvepn flowsheetSteven A Rusher DPM Work Phone: n[facility] [place] PodiatryStart: 03-28-2025 End: 88-24-5866VwyyahMtmoj Kampfer FIRE CONTROL OFFICER Work Phone: noms FNR FMComment on above:TremorStart: 03-10-2025 End: 55-39-5284VguyloEpvsi Kampfer FIRE CONTROL OFFICER Work Phone: noms POPULATION HEALTHComment on above: Gastroesophageal reflux disease without esophagitisStart: 03-02-2025 End: 83-15-1395jcvtlvkznzDgduyuq Vytautas Giedraitis MDFacility:PM [place] Start: 02-06-2025 End: 20-93-9848Gurglwroya Peralta FIRE CONTROL OFFICER Work Phone: [facility] FNR FMStart: 02-06-2025 End: 91-09-4103Hupxlj flowsChad Peralta FIRE CONTROL OFFICER Work Phone: [facility] FNR FMStart: 02-06-2025 End: 09-11-1099oskahjdmemJSUVV KAMPFERNot AvailableStart: 02-06-2025 End: 78-55-3919Xlinpr outpatient visit 25 minutesDorcas Peralta FIRE CONTROL OFFICER Work Phone: [facility] FNR FMComment on above:Obstructive sleep apnea syndrome (Primary Dx); Obesity, Class II, BMI 35-39.9; Chronic bilateral low back pain without sciaticaStart: 59-29-3878uianxcmbqvTbntq Sue Weihrauch PA-CFacility:[facility] MainStart: 01-26-2025 End: 05-69-4146loxhwqrpseVMWYEE A RUSHERNot AvailableStart: 01-26-2025 End: 33-14-4799Moytcf flowsheetSteven A Rusher DPM Work Phone: [facility] PODIATRYStart: 01-26-2025 End: 95-25-2993Umdkho flowsheetSteven A Rusher DPM Work Phone: noMS PODIATRYStart: 12-22-2024 End: 58-89-2374grstvihhdaCrlgbCaitlyn Sparrow MDFacility:PM BellevueStart: 12-08-2024 End: 31-19-3985hcfufknpkyAbugxaz Vivek Radford MDFacility:PM Chris Start: 11-24-2024 End: 86-31-4034Bzfbvw OnlyCeleste Dhaliwal APRN-AYUSH Work Phone: [facility] CardiologyStart: 11-03-2024 End: 53-85-3792SdryiyDpueoa Burel CAREER MANAGER Work Phone: [facility] POPULATION HEALTHComment on above:Obstructive sleep apnea syndromeStart: 10-27-2024 End: 90-97-0886Eztdvf outpatient visit 15 minutesSteven A Rusher DPM Work Phone: noms PODIATRYComment on above:Dermatophytosis of nail (Primary Dx); Dystrophic nail; Pain around toenail, right foot; Pain around toenail, left footStart: 10-27-2024 End: 11-39-0791lyteulaqjpQQUWAW A RUSHERNot AvailableStart: 10-27-2024 End: 68-76-8349Jjpnfq flowsheetSteven A Rusher DPM Work Phone: NOM[facility] PODIATRYStart: 10-27-2024 End: 70-60-3462Uaolec flowsheetSteven A Rusher DPM Work Phone: noms PODIATRYStart: 10-13-2024 End: 50-20-2716uailujffyhAymacgvSana Radford MDFacility:PM Chris Start: 09-22-2024 End: 56-69-9547Smkfpd OnlyDorcas Peralta NP Work Phone: [facility] FNR FMComment on above:Obstructive sleep apnea syndromeStart: 09-20-2024 End: 25-71-7398WlrjdfZlirwuoy Hohman MD Work Phone: [facility] FNR FMComment on above:Tremor (Primary Dx)Start: 09-15-2024 End: 88-54-8139Dwkrfn Keli Peralta NP Work Phone: [facility] FNR FMStart: 09-15-2024 End: 75-07-1870Uhyprf Keli Peralta FIRE CONTROL OFFICER Work Phone: [facility] FNR FMStart: 09-15-2024 End: 98-28-9614rgxlmepgjoCQOLL M SCHERMERHORGerman Hospitaltart: 09-15-2024 End: 85-43-1125Yknijl outpatient visit 25 Talha Peralta NP Work Phone: [facility] FNR FMComment on above:Morbid (severe) obesity due to excess calories (CMS/HCC) (Primary Dx); BOGDAN (obstructive sleep apnea); Hepatic steatosis; Mixed hyperlipidemia (CMS/HCC); Elevated liver enzymesStart: 09-01-2024 End: 63-76-3147uhrlccopklJogtegmAshlee Radford MDFacility:PM Chris Start: 08-13-2024 End: 90-31-8924ebfczppvnbBefmmMark ROOTCFacility:BV [facility]BN EastStart: 08-04-2024 End: 52-58-7183Akqgpn outpatient new 30 minutesSteven A Rusher DPM Work Phone: noms PODIATRYComment on above:Tinea pedis of both feet (Primary Dx); Chronic dermatitis of feet; Dermatophytosis of nail; Pain around toenail, right foot; Pain around toenail, left footStart: 08-04-2024 End: 97-07-1862wwfrdehhvaUSYJSW A RUSHERNot AvailableStart: 08-04-2024 End: 23-10-2084Zandfd flowsheetSteven A Rusher DPM Work Phone: noms PODIATRYStart: 08-04-2024 End: 54-87-6397Slubeh flowsheetSteven A Rusher DPM Work Phone: noms PODIATRYStart: 07-04-2024 End: 05-09-6993xgtmxlrotfDKDXYMWVFoundation Surgical Hospital of El Pasotart: 06-16-2024 End: 61-10-3838Ctzfbz Keli Peralta FIRE CONTROL OFFICER Work Phone: noms FNR FMStart: 06-16-2024 End: 63-46-2011Yxoijgroya Peralta FIRE CONTROL OFFICER Work Phone: noms FNR FMStart: 06-16-2024 End: 99-24-5640Kzndus outpatient visit 25 minutesSalety Peralta FIRE CONTROL OFFICER Work Phone: noms FNR FMComment on above:Morbid (severe) obesity due to excess calories (CMS/HCC) (Primary Dx); Bipolar disorder in full remission, most recent episode unspecified type ([facility]); Mixed dyslipidemia ([facility])Start: 06-09-2024 End: 00-13-7696Mbrpdnjgp encounterSpawel Black Physicians CardiologyComment on above:Cholesterol labsStart: 05-26-2024 End: 27-23-5231NkatruLhevre Burel CAREER MANAGER Work Phone: noms POPULATION HEALTHComment on above: Gastroesophageal reflux disease without esophagitisRash (Primary Dx); Obesity, Class II, BMI 35-39.9Start: 05-23-2024 End: 88-80-4107Gevimn outpatient visit 25 minutesSalety Peralta FIRE CONTROL OFFICER Work Phone: [facility] FNR FMComment on above:Folliculitis (Primary Dx); Obesity, Class II, BMI 35-39.9; Morbid (severe) obesity due to excess calories ([facility]); Gastro-esophageal reflux disease without esophagitis; Body mass index (BMI) 39.0-39.9, adult; Bipolar disorder, unspecified ([facility])Start: 05-22-2024 End: 60-92-7479Marsgx Jewell Peralta FIRE CONTROL OFFICER Work Phone: [facility] FNR FMComment on above:Dermatitis (Primary Dx) Start: 05-14-2024 End: 13-68-7129Zramvp flowsChad Peralta FIRE CONTROL OFFICER Work Phone: [facility] FNR FMStart: 05-14-2024 End: 81-32-9220Qpqgpq Keli Peralta FIRE CONTROL OFFICER Work Phone: [facility] FNR FMStart: 05-14-2024 End: 73-26-0110Jkztcx outpatient new 45 minutesSalety Peralta NP Work Phone: [facility] FNR FMComment on above:Obesity, Class II, BMI 35- 39.9 (Primary Dx); Encounter to establish careStart: 05-05-2024 End: 59-35-4467Ygpfku outpatient new 45 minutesGage Webb DO Work Phone: [facility] CardiologyComment on above: Hypertriglyceridemia (Primary Dx); Sinus tachycardia; Chest pain, unspecified type; Palpitation; Vapes nicotine containing substanceStart: 05-02-2024 End: 04-22-6589Eetyj abstractingScanning Provider ExternalProMedica Physicians CardiologyStart: 37-55-5825EelmbpJanvis N Rudolph MD Work Phone: NeurologyComment on above:Refill RequestStart: 89-60-8296GinrtyYsnllx N Rudolph MD Work Phone: NeurologyComment on above:Refill RequestStart: 76-25-8190cxctgbeqpeFA MUNIRA S KUMARFacility:C0Uqgqg: 07-11-2022 End: 60-11-8778vjhnaklqjtFK MUNIRA S KUMARFacility:U6Vbjwv: 19-37-0800DN Get Medical AdviceRaymond Medina MD Work Phone: NeurologyComment on above:Med refillStart: 03-08-2022 End: 55-49-5922szjsbwtmmhFZ CAITLYN Tunde SCHERMERHORNFacility:W9Ppklk: 02-23-2022 End: 87-36-8177morkeovmplPwkvqa [facility] Other [employer] Other Start: 89-58-0635Kuwfgpkha encounterAnupam [facility] PsychiatryStart: 51-74-7864IyzgrySejvvq N Rudolph MD Work Phone: NeurologyComment on above:Refill RequestStart: 01-04-2022 End: 86-35-7364cqydxduzinQxwqrj [facility] Other [employer] Other Start: 66-85-8692Haypfobfb encounterAnupam [facility] PsychiatryStart: 12-12-2021 End: 62-58-2157npbycnsaljXcunvb [facility] Other [employer] Other start: 09-09-3456Vuqvglqut encounterAnupam [facility] PsychiatryStart: 11-30-2021 End: 73-65-7638exemwzvsdtWL MUNIRA S KUMARFacility:U0Kuezb: 11-16-2021 End: 65-75-1546bwvyjbycgfAtvtwg [facility] Other [facility] [employer] Other Start: 60-42-2312Nxmagollt encounterAnupam [facility] PsychiatryStart: 92-43-4015Kctiskbyh for preprocedural laboratory examinationDR MUNIRA S KUMARThe Floweree HospitalStart: 10-11-2021 End: 64-41-6929qmumpkmmuuTX MUNIAR S KUMARFacility:S7Rogye: 10-07-2021 End: 71-30-5310fvptcawvigFZ CAITLYN Griffiths SCHERMERHORNFacility:U3Whulq: 10-07-2021 End: 36-79-0640Jmbjqajnm for preprocedural laboratory examinationDR CAITLYN Griffiths SCHERMERHORNFacility:M9Rlwns: 10-04-2021 End: 73-42-5623unzvoxazkgVP MUNIRA S KUMARFacility:K8Eyqbb: 10-03-2021 End: 18-29-8267vhdmeihxnbLQ CAITLYN Griffiths SCHERMERHORNFacility:N3Kzxhg: 09-15-2021 End: 78-64-2011iqoueuaeijOKZL SOLISFacility:J3Rrart: 08-03-2021 End: 31-32-6766wtzdgxvxxcMkpivo [facility] Other [employer] Other Start: 23-10-5087Tazlabkfd encounterAnupam [facility] PsychiatryStart: 07-28-2021 End: 06-54-8599whftmumajjGjmguu [facility] Other [employer] Other Start: 97-52-6059Hqosobojm encounterAnupam [facility] PsychiatryStart: 11-10-2019 End: 86-31-0947Kqitobg encounter procedureBRADLEY ValdezKindred Hospital Seattle - North Gatetart: 11-10-2019 End: 39-42-7831Vvwcraqxgx hospital visit by physicianBradley Simmons Work Phone: [facility] ClinicComment on above:Arrived Procedures DateProcedureProcedure DetailPerforming ClinicianStart: 08-21-2773Vjmvsmagio elastography of liverJennifer Ty Gee MD Work Phone: Start: 73-62-9084DRHTWW COVID-19/FLUDorcas Peralta NP Work Phone: Start: 10-22-4239Dmpyy depression screening assessment Raymond Medina MD Work Phone: Plan of Treatment DateCare ActivityDetailAuthorStart: 41-18-5367Acgasmfi Vaccine (1 of 2)Shingles Vaccine (1 of 2)[place], [place]Start: 08-29-2026Medicare Annual Wellness (AWV)Medicare Annual Wellness (AWV)[facility] HealthcareStart: 74-66-1465Flggqsdmu vaccinationInfluenza Vaccine (#1)[facility] HealthcareComment on above:Postponed from 05/11/2025 (Patient Refused)Start: 12-16-2025 End: 17-19-4814Ekkhnqol Jtktskn0012/16/2025 11:30 AM EDT Clinical Support [facility] - Pharmacy Medication Management [address] [place] [address] KnxUoyziaMercy Health – The Jewish [facility] - Pharmacy Medication ManagementStart: 12-09-2025 End: 25-20-6364Eyayg 1996 panel - Serum or PlasmaLipid profile Lab Routine Hyperlipidemia, unspecified hyperlipidemia type Expected: 12/09/2025 (Appr oximate), Expires: 06/10/2026[facility] Work Phone: Comment on above:Expected: 12/09/2025 (Approximate), Expires: 06/10/2026Start: 12-09-2025 End: 09-98-8912Bmgbe panelLiver panel Lab Routine Hyperlipidemia, unspecified hyperlipidemia type Expected: 12/09/2025 (Approximate), Expires: 06/10/2026 [facility] SystemComment on above:Expected: 12/09/2025 (Approximate), Expires: 06/10/2026Start: 32-33-3461autwjpgatgSbdvtvshnqHmsjdtxi:[facility] Start: 07-29-2025 End: 37-29-5892Nfqusdx encounter rgyldsuzl77/19/2025 1:15 PM EST Office Visit [facility] [address] [place] [phone] Sherie Maria DPM [address] [place] [address] [facility] PodiatryStart: 15-27-3174ScagzlvyjMagruder Hospital Start: 54-38-3107Xdmrxfaptg guidance for needle biopsyUS needle biopsyACMC Healthcare System Glenbeightart: 07-15-2025 End: 70-31-3981QadagowytbgsxyfWcrjtimlsbalyds Sleep Center Routine BOGDAN (obstructive sleep apnea) Hypersomnia Expected: 07/15/2025(Approximate), Expires: 07/15/2026[facility] Work Phone: Comment on above:Expected: 07/15/2025 (Approximate), Expires: 07/15/2026Start: 06-26-2025 End: 24-36-9532VCR W Auto Differential panel - BloodCBC and differential Lab Routine Restless leg syndrome Dysarthria Transient neurological symptoms Ex pected: 06/26/2025 (Approximate), Expires: 06/26/2026[facility] HealthcareComment on above:Expected: 06/26/2025 (Approximate), Expires: 06/26/2026Start: 06-26-2025 End: 66-41-4462Bjggavliz (Vitamin B12) [Mass/volume] in Serum or PlasmaVitamin B12 Lab Routine Restless leg syndrome Dysarthria Transient neurological symptoms Expected: 06/26/2025 (Approximate), Expires: 06/26/2026[facility] HealthcareComment on above:Expected: 06/26/2025 (Approximate), Expires: 06/26/2026Start: 06-26-2025 End: 64-26-7426Eyrjwxsnvprwn metabolic 2000 panel - Serum or PlasmaComprehensive metabolic panel Lab Routine Restless leg syndrome Dysarthria Transient neurological symptoms Expected: 06/26/2025 (Approximate), Expires: 06/26/2026 [facility] Work Phone: Comment on above:Expected: 06/26/2025 (Approximate), Expires: 06/26/2026Start: 06-26-2025 End: 42-86-5426Ylbyvotb [Mass/volume] in Serum or PlasmaFerritin Lab Routine Restless leg syndrome Dysarthria Transient neurological symptoms Expected: 06/10 (Approximate), Expires: 06/26/2026NO HealthcareComment on above: Expected: 06/26/2025 (Approximate), Expires: 06/26/2026Start: 06-26-2025 End: 65-20-1781Dkoswqiuy [Mass/volume] in Serum or PlasmaMagnesium Lab Routine Restless leg syndrome Dysarthria Transient neurological symptoms Expected: (Approximate), Expires: 06/26/2026 HealthcareComment on above: Expected: 06/26/2025 (Approximate), Expires: 06/26/2026Start: 06-26-2025 End: 85-18-4227ZJ Brain WO contrastMR brain wo contrast Imaging Routine Dysarthria Transient neurological symptoms Expected: 06/26/2025, Expires: 06/26/2026NO HealthcareComment on above:Expected: 06/26/2025, Expires: 06/26/2026Start: 06-26-2025 End: 48-07-9982PEN W/REFLEX TO FT4TSH W/REFLEX TO FT4 Lab Routine Restless leg syndrome Dysarthria Transient neurological symptoms Expected: 06/26/2025 (Approximate), Expires: 06/26/2026NO HealthcareComment on above:Expected: 06/26/2025 (Approximate), Expires: 06/26/2026Start: 06-26-2025 End: 71-53-2731Xnhjjtc encounter sbrkehbuh86/17/2025 1:30 PM EDT Office Visit [facility] [address] [place] [address] Kathryn DorcasKOBE quintanilla [address] [place] [id number] [facility]Comment on above:Arrived Start: 72-61-8549Nuganmhun vaccinationLafayette Regional Health CenterComment on above:Postponed from 05/11/2024 (Patient Refused)Postponed from 05/11/2025 (Patient Refused) Start: 75-67-0204Wjcqg smooth muscle IgG Ab [Units/volume] in SerumACMC Healthcare System Glenbeightart: 26-82-5469Zlvhwwslqbkqx [Mass/volume] in Serum or PlasmaACMC Healthcare System Glenbeightart: 73-08-5199Gcntujogu A virus Ab [Presence] in Serum by ImmunoassayACMC Healthcare System Glenbeightart: 74-35-4384Nutnkniio A virus antibody, IgM typeMagruder Hospital Start: 16-03-5538Zmiuvjuqi B core antibody measurementACMC Healthcare System Glenbeightart: 43-74-0279Ehhxlmuwb B core antibody measurement, IgM typeACMC Healthcare System Glenbeightart: 05-19-8891Ejanszvyx B virus surface Ab [Presence] in SerumACMC Healthcare System Glenbeightart: 96-20-9173OlF [Mass/volume] in Serum or PlasmaACMC Healthcare System Glenbeightart: 57-98-9510Oxzvkitbmqh a [Moles/volume] in Serum or PlasmaACMC Healthcare System Glenbeightart: 88-43-6918Pzdmpgwkhdvm M2 IgG Ab [Units/volume] in SerumACMC Healthcare System Glenbeightart: 35-43-5406MnqyssdxuACMC Healthcare System Glenbeightart: 1986Xptar BMI ScreeningAdult BMI ScreeningProLima City Hospital SystemStart: 30-69-6545Zqkcdsl ScreeningTobacco ScreeningProLima City Hospital SystemStart: 05-12-2025 End: 89-12-8416EI Abdomen limitedUS abdomen limited Imaging Routine Elevated liver enzymes Hepatic steatosis Expected: 05/12/2025, Expires: 05/12/2026[facility] Work Phone: Comment on above:Expected: 05/12/2025, Expires: 05/12/2026Start: 58-82-1773XEMQD-19 Vaccine ( season)COVID-19 Vaccine ()[facility]Ac[facility] Bright [facility] SystemStart: 77-81-0689Jtlaniibm vaccinationLafayette Regional Health CenterStart: 05-08-2025 End: 949869-ydqmwutrtiaflf D3 [Mass/volume] in Serum or PlasmaVitamin D 25 hydroxy Lab Routine Encounter for wellness examination Vitamin D deficiency Expected: 05/08/2025 (Approximate), Expires: 05/08/2026[facility] HealthcareComment on above:Expected: 05/08/2025 (Approximate), Expires: 05/08/2026Start: 05-08-2025 End: 61-93-4853Riazjyjrxjepj metabolic 2000 panel - Serum or PlasmaComprehensive metabolic panel Lab Routine Encounter for wellness examination Obesity, Class II, RKD92-14.9 Expected: 05/08/2025 (Approximate), Expires: 05/08/2026[facility] Work Phone: Comment on above:Expected: 05/08/2025 (Approximate), Expires: 05/08/2026Start: 05-08-2025 End: 96-00-1902Yruvp 1996 panel - Serum or PlasmaLipid panel Lab Routine Encounter for wellness examination Mixed hyperlipidemia Obesity, Class II, BMI 35-39.9 Expected: 05/08/2025 (Approximate), Expires: 05/08/2026[facility] Comment on above:Expected: 05/08/2025 (Approximate), Expires: 05/08/2026Start: 05-08-2025 End: 51-65-5555VFJ W/REFLEX TO FT4TSH W/REFLEX TO FT4 Lab Routine Encounter for wellness examination Obesity, Class II, BMI 35-39.9 Expected: 05/08/2025 (Approximate), Expires: 08/29/2026[facility] HealthcareComment on above:Expected: 05/08/2025 (Approximate), Expires: 05/08/2026Start: 05-08-2025 End: 04-21-9200Fqbmswr encounter procedureNOMS FNR FMComment on above:Arrived Start: 63-11-4657Rnmsm BMI ScreeningAdult BMI ScreeningMagruder Memorial Hospital Start: 32-53-1354Ktxxadx ScreeningTobacco ScreeningBerger Hospital SystemStart: 04-28-2025 End: 64-47-2800Rapuebz encounter procedureNOMS FH PODIATRYComment on above: ArrivedStart: 41-05-5884Vxbno BMI ScreeningAdult BMI ScreeningMartin General Hospitaltart: 70-17-2462Rqdlkes ScreeningTobacco ScreeningMagruder Memorial Hospital Start: 01-26-2025 End: 08-58-6525Qzsgbhx encounter procedureNOMS FH PODIATRYComment on above: ArrivedStart: 12-15-2024 End: 42-85-5940Jjvvzcg encounter zyihlumwo45/07/2025 11:00 AM EDT Office Visit [facility] [address] [place] [phone] Dorcas Peralta NP [address] [place] [address] [facility] FNR FMStart: 03-01-2025Medicare Annual Wellness (AWV)Medicare Annual Wellness (AWV)[facility] HealthcareStart: 10-27-2024 End: 50-61-3844Dvqttwj encounter procedureNOMS FH PODIATRYComment on above: ArrivedStart: 09-15-2024 End: 00-64-8482Jtwupao encounter itjjpmjyj97/06/2025 11:00 AM EST Office Visit [facility] [address] [place] [address] Dorcas Peralta NP [address] [place] [address] [facility] FNR FMStart: 09-08-2024 End: 55-30-5806Ryybbqk aminotransferase [Enzymatic activity/volume] in Serum or PlasmaALT Lab Routine Medication monitoring encounter Other hyperlipidemia Elevated triglycerides with high cholesterol Elevated LDL cholesterol level Severe obesity (BMI 35.0-39.9) with comorbidity (CMS-HCC) Other fatigue Expected: 09/08/2024 (Approximate), Expires: 06/09/2025[facility] Comment on above:Expected: 09/08/2024 (Approximate), Expires: 06/09/2025Start: 09-08-2024 End: 93-41-3640Qeodrztux aminotransferase [Enzymatic activity/volume] in Serum or PlasmaAST Lab Routine Medication monitoring encounter Other hyperlipidemia Elevated triglycerides with high cholesterol Elevated LDL cholesterol level Severe obesity (BMI 35.0-39.9) with comorbidity (CMS-HCC) Other fatigue Expected: 09/08/2024 (Approximate), Expires: 06/09/2025[facility] Comment on above:Expected: 09/08/2024 (Approximate), Expires: 06/09/2025Start: 09-08-2024 End: 53-78-9073Xlaqvpspnbm in LDL [Mass/volume] in Serum or PlasmaLDL cholesterol, direct Lab Routine Medication monitoring encounter Other hyperlipidemia Elevated triglycerides with high cholesterol Elevated LDL cholesterol level Severe obesity (BMI 35.0-39.9) with comorbidity (CMS-HCC) Other fatigue Expected: 09/08/2024 (Approximate), Expires: 06/09/2025[facility] Work Phone: Comment on above:Expected: 09/08/2024 (Approximate), Expires: 06/09/2025Start: 09-08-2024 End: 22-30-1641Iybuwptfxerg [Mass/volume] in Serum or PlasmaTriglycerides Lab Routine Medication monitoring encounter Other hyperlipidemia Elevated triglycerides with high cholesterol Elevated LDL cholesterol level Severe obesity (BMI 35.0-39.9) with comorbidity (CMS-HCC) Other fatigue Expected: 09/08/2024 (Approximate), Expires: 06/09/2025[facility] DaytonLivongo Health SystemComment on above:Expected: 09/08/2024 (Approximate), Expires: 06/09/2025Start: 08-04-2024 End: 18-02-9642Mjqocnx encounter pybkstgfg93/25/2024 3:30 PM EST Office Visit [facility] [address] [place] [address] Sherie Maria, DPM [address] [place] [address] ArrivedNOMS PODIATRYComment on above:ArrivedStart: 06-16-2024 End: 59-74-0897Fbrbbmu encounter procedureNOMS FNR FMComment on above:Arrived Start: 05-14-2024 End: 97-29-4769Parbrno encounter tmrslgthu77/04/2024 11:30 AM EDT Office Visit [facility] [address] [place] [facility] [place] [phone] Dorcas Peralta NP [address] [place] [facility] [place] [address] ArrivedNOWV FNR FMComment on above:ArrivedStart: 53-63-0331BVHBL-19 Vaccine ( season)COVID-19 Vaccine ( season)[facility] Start: 86-88-6521PFJBN-19 Vaccine ( season)COVID-19 Vaccine ()[facility] SystemStart: 17-39-3229Zrxswlygi vaccinationNOWV HealthcareStart: 05-05-2024 End: 48-29-2732Jyrb complete W/O contrastEcho complete W/O contrast Echocardiography Routine Chest pain, unspecified type Expected: 05/05/2024, Expires: 05/05/2025[facility] SystemComment on above:Expected: 05/05/2024, Expires: 05/05/2025Start: 05-05-2024 End: 14-12-6591Snivykdx stress test studyStress test (exercise only) Cardiac Services Routine Chest pain, unspecified type Expected: 05/05/2024, Expires: 05/05/2025ProLima City Hospital SystemComment on above:Expected: 05/05/2024, Expires: 05/05/2025Start: 05-05-2024 End: 55-21-7821Qtubfbq encounter peutbxoyc66/26/2024 10:30 AM EDT Office Visit [facility] [address] [place] [address] Gage Webb, [address] [place] [address] Jurgen English MD [address] [place] [address] [facility] CardiologyStart: 76-58-7789JHQZG-19 Vaccine ()COVID-19 Vaccine ()[facility] SystemStart: 08-28-1882Ebemhndig vaccinationLake County Memorial Hospital - Westtart: 88-53-7911Dbxwt depression screening assessmentDEPRESSION SCREENING [facility]: 08-00-9610KYVUSUUUNB ASSESSMENTDEPRESSION ASSESSMENT [facility]: 94-10-3998Pnxvavpjg vaccinationLake County Memorial Hospital - Westtart: 03-29-2020 End: 64-48-5736Vwyqdagcphb56/20/2020 Appointment General Surgery Bradley Simmons MD [address] [place], [place] [id number] [facility]Start: 43-33-7496Audczsrmr vaccinationFlu vaccine (#1)[facility]: 63-19-4130AGA TESTINGHPV TESTINGLake County Memorial Hospital - Westtart: 99-41-3426Ivnrocpwk for malignant neoplasm of cervixLake County Memorial Hospital - Westtart: 97-63-5535QOO Vaccines (1 - 3-dose SCDM series)HPV Vaccines (1 - 3-dose SCDM series)[facility] CenterStart: 65-39-9314Uldodujf cancer screenCervical cancer screenFairfield Medical Center: 97-29-0679YHU TESTINGPAP TESTINGLake County Memorial Hospital - Westtart: 88-02-1258Gfqtconjg for malignant neoplasm of cervixLake County Memorial Hospital - Westtart: 34-44-2481Lxmaezkmk A Vaccines (1 of 2 - Risk 2-dose series) Hepatitis A Vaccines (1 of 2 - Risk 2-dose series)[facility] CenterStart: 66-52-8428Wopugglenxol Vaccine: Pediatrics (0 to 5 Years) and At-Risk Patients (6 to 64 Years) (1 of 2 - PCV)Pneumococcal Vaccine: Pediatrics (0 to 5 Years) and At-Risk Patients (6 to 64 Years) (1 of 2 - PCV)[facility] CenterStart: 77-25-8888Psuue microalbumin profileDTAP,TDAP,TD (1 - Tdap)[facility] Start: 12-11-2029Kmguw BMI Follow Up PlanAdult BMI Follow Up PlanMartin General Hospitaltart: 47-25-8450JYBJZQAVG C SCREENINGHEPATITIS C SCREENING [facility]: 73-36-7851Yrusjdbhb C screeningHepatitis C Screening [facility]: 59-65-8416UHJ SCREENINGHIV SCREENINGFirelands [facility] Start: 22-37-6392NXS screeningHIV ScreeningLake County Memorial Hospital - Westtart: 64-20-7840TFL screenHIV screenFairfield Medical Center: 69-26-3203Nihasmw of varicella vaccinationVaricella Vaccines (1 of 2 - 13+ 2-dose series)[facility] CenterStart: 48-31-6689Ddvstjgxku ScreeningDepression ScreeningMartin General Hospitaltart: 40-77-8465ZNeO,Tdap and Td Vaccines (6 - Tdap)DTaP,Tdap and Td Vaccines (6 - Tdap)[facility]Start: 14-95-5481MJiM/Tdap/Td Vaccines (6 - Tdap) DTaP/Tdap/Td Vaccines (6 - Tdap)[facility] CenterStart: 66-25-4788Nmgdi microalbumin profileDTaP,Tdap,Td Vaccine (6 - Tdap)[facility]: 29-46-2579CVfH/Tdap/Td vaccine (1 - Tdap)DTaP/Tdap/Td vaccine (1 - Tdap)[facility]: 08-03-8029NOFQX-19 VACCINE (1)COVID-19 VACCINE (1)[facility]: 91-62-5984Jpezddmms vaccine (1 of 2 - 2-dose childhood series) Varicella vaccine (1 of 2 - 2-dose childhood series)[facility]: 27-64-8529EUPBI-19 VACCINE (#1)COVID-19 VACCINE (#1)[facility]: 61-61-3912GQTVASBHK B (1 of 3 - 3-dose series)HEPATITIS B (1 of 3 - 3-dose series)[facility]: 1986Medicare Annual Wellness (AWV)Medicare Annual Wellness (AWV)[facility] HealthcareStart: 37-85-8016Pkwbncl CounselingTobacco CounselingMagruder Memorial HospitalAlanine aminotransferase [Enzymatic activity/volume] in Serum or PlasmaALT Lab Routine Dermatophytosis of nail Ordered: 04/28/2025[facility] Work Phone: Comment on above:Ordered: 04/28/2025lpha 1 antitrypsin [Mass/volume] in Serum or PlasmaMagruder Hospital Alpha 1 antitrypsin phenotyping [Identifier] in Serum or Plasma by ImmunofixationMagruder HospitalAspartate aminotransferase [Enzymatic activity/volume] in Serum or PlasmaAST Lab Routine Dermatophytosis of nail Ordered: 04/28/2025[facility] CenterComment on above:Ordered: 04/28/2025 Calculated LDL cholesterol levelMagruder Hospital Cholesterol.total/Cholesterol in HDL [Mass Ratio] in Serum or PlasmaMagruder Hospital End: 43-71-0673Nsdoedv function 1999 panel - Serum or PlasmaHepatic function panel Lab Routine Hypertriglyceridemia 1 Occurrences starting 05/05/2024 until 05/05/2025Mag[facility]uder Memorial HospitalComment on above:1 Occurrences starting 05/05/2024 until 05/05/2025Hepatitis B virus surface Ag [Presence] in Serum or Plasma by ImmunoassayMagruder HospitalHepatitis C virus IgG Ab [Presence] in Serum or Plasma by ImmunoassayMagruder HospitalHFE gene mutations found [Identifier] in Blood or Tissue by Molecular genetics method NominalMagruder HospitalHomogenous nuclear Ab pattern [Titer] in SerumMagruder Hospital End: 96-52-4918Hzazb 1995 panel - Serum or PlasmaLipid profile Lab Routine Hypertriglyceridemia 1 Occurrences starting 05/05/2024 until 05/05/2025[facility] Work Phone: Comment on above:1 Occurrences starting 05/05/2024 until 05/05/2025Nuclear Ab [Titer] in [facility] Patient EducationCommunity Health Liver Biopsy Discharge Instructions Know your Meds [facility] Work Phone: Tissue transglutaminase IgA Ab [Units/volume] in [facility] HospitalTissue transglutaminase IgG Ab [Units/volume] in [facility] HospitalVLDL cholesterol measurementMagruder Hospital Immunizations Immunization DateImmunizationNotesCare FejlxhuvSdazzisi40-65-6521Rozqvmffc, injectable, [place] Canine Kidney, quadrivalent with preservativeSarah Kampfer FIRE CONTROL OFFICER Work Phone: [facility] CenterVvdueeaopv40-48-0396ujlkgdkqk virus vaccine, unspecified formulationJurgen English MD Work Phone: [facility] Memorial HospitalUyruce61-74-1115Jvujchvus, injectable, [place]in [place] Canine Kidney, preservative free, quadrivalentSarah Kampfer FIRE CONTROL OFFICER Work Phone: [facility] CenterGbjevdvxkn18-99-6438zffsjsygj, injectable, quadrivalent, preservative freeSarah Kampfer FIRE CONTROL OFFICER Work Phone: [facility] CenterPwusuvslfv66-06-1448zqizakxoi, injectable, quadrivalent, contains preservativeSarah Kampfer FIRE CONTROL OFFICER Work Phone: [facility] CenterOvoflxpogg24-47-2229gbwmjrrhx virus vaccine, unspecified formulationRaymond Medina MD Work Phone: [facility] CampusCwpbpt32-44-8924lcvryrvbe B vaccine, pediatric or pediatric/adolescent dosageSarah Kampfer FIRE CONTROL OFFICER Work Phone: [facility] CenterVwfffgqctj56-53-3329dgumfvrdv B vaccine, pediatric or pediatric/adolescent dosageSarah Kampfer FIRE CONTROL OFFICER Work Phone: [facility] CenterCwmufkhabm58-22-2601CQ(adult) unspecified formulationSarah Kampfer FIRE CONTROL OFFICER Work Phone: [phone] CenterCffpgtfqwu82-06-7751zeybcoknu B vaccine, pediatric or pediatric/adolescent dosageSara Emilianopfer FIRE CONTROL OFFICER Work Phone: [phone] [place], [place] [address]Hwxnrqvroe73-66-5904wwikuah, mumps and rubella virus vaccineSarah Kampfer FIRE CONTROL OFFICER Work Phone: [phone] [address] StreetDswgqyonde17-58-2584qihunrtogg, tetanus toxoids and pertussis vaccineSarah Kampfer FIRE CONTROL OFFICER Work Phone: [phone] [address] StreetTsubporqxp84-95-4356ckyktai, mumps and rubella virus vaccineSarah Kampfer FIRE CONTROL OFFICER Work Phone: [phone] [address] StreetMgtqwwashh16-85-0141tytkykrar poliovirus vaccine, live, oralSarah Kampfer FIRE CONTROL OFFICER Work Phone: [phone] [address] StreetThjraspgni49-64-0223ucroxuydfr, tetanus toxoids and pertussis vaccineSarah Kampfer FIRE CONTROL OFFICER Work Phone: [phone] [place], [place] [address]Gegvwldpzl36-08-3772hfyboitns poliovirus vaccine, live, oralSarah Kampfer FIRE CONTROL OFFICER Work Phone: [phone] [place], [place] [address]Txrrksmopo66-58-7067lacpuxqckd, tetanus toxoids and pertussis vaccineSarah Kampfer FIRE CONTROL OFFICER Work Phone: [phone] [place], [place] [address]Zeldsesprh10-05-8966cldfeheoq poliovirus vaccine, live, oralSarah Kampfer FIRE CONTROL OFFICER Work Phone: [phone] [address] StreetApdcqqgsjn79-02-7920injfrzhyus, tetanus toxoids and pertussis vaccineSarah Kampfer FIRE CONTROL OFFICER Work Phone: [phone] [address] StreetBqolgxfkas01-95-1121urmmhbzlh poliovirus vaccine, live, oralSarah Kampfer FIRE CONTROL OFFICER Work Phone: [phone] [place] [address] Payers DatePayer CategoryPayerPolicy [id number]-pay2025Medicare HMOAETNA MEDICARE Member Subscriber Plan / Payer (Effective 2024-Present) Name: Marita Messina Relation to Subscriber: Self Name: Marita Messina Payer ID: [id number] (NAIC) Type: Not on file Address: [address] [place] [id number] Private Health Oovfdxmun30-66-5997Vtpkhjh Health [id number] 2019MedicaidMEDICAID [facility] MEDICAID [id number] 2019-Present [phone] [address] [place] [address] [id number] 2019Medicaid [id number] 2019MedicareMEDICARE MEDICARE A AND B [id number] 2019-Present [phone] [address] [place], [place] [address] [id number]. [id number] 2015MedicaidMEDICAID [place] J[place] xxxxxxxxxxxx 2014-Present [phone] [address] [place], [place] [address]kujvekkegifb [id number] 2015MedicareMEDICARE MEDICARE PART A AND B xxxxxxxxxxx 2014-Present [phone] [place], [id number] [id number] 2.16.840.1.470008.3.57[id number] 2.16.840.1.113380.3.57[id number] 2.16840.1.196275.3.579.2.58011-14-2553Yomdppq1102468 2.16840.1.975452.3.57[id number] 2.840.1.397798.3.57[id number] 2.840.1.952312.3.579.[id number] 2.840.1.928550.3.579.[id number] 2.840.1.349562.3.579.2.03971-28-3485Ydcfudp0588109 2.840.1.122645.3.579.2.14182-09-1408Wsdobzv3950037 2.840.1.042309.3.57[id number] 2.16840.1.000683.3.579.2.9[id number] 2.840.1.968206.3.579.2.93224-14-2106Etesfsz817979534 2.16840.1.612841.3.579.2.964[id number] 2.16840.1.173249.3.579.2.97707-36-1088Puzsczl899465158 2.16.840.1.009490.3.579.2.57905-74-1423Oryhkwk093674909 2.16840.1.494965.3.579.2.28157-34-9351Ospiyee346089253 2.16840.1.047497.3.579.2.62409-12-8545Pfesotm533472549 2.840.1.964491.3.579.2.77256-55-9617Wptvccc955840673 2..1.254360.3.579.2.232747-20-5179Urwmxyk711075169 2..1.456834.3.57[id number] 2..1.226567.3.579.2.351898-52-1949Nfnyhvc96149876 2.840.1.302322.3.579.2.889505-74-7540Aqokeji26661489 2.0.1.518051.3.579.2.349788-08-8251Ttxibqm00473859 2.840.1.814375.3.579.2.878197-31-6983Gsjufmu16729975 2.840.1.953608.3.579.2.403902-75-9427Mofndmr85630547 2.840.1.247926.3.579.2.949704-01-1200Sqiyttw83472874 2.840.1.601374.3.579.2.685349-10-0576Ujcuizt9014082 2.840.1.962414.3.579.2.211691-52-4736Vdkqcii7308008 2.16.840.1.854516.3.579.2.869488-99-5222Ufsdtln1023066 2..0.1.445739.3.579.2.516000-98-7444Peampvu0924209 2.16.840.1.870797.3.579.2.348497-51-0001Cqmrdbc1161928 2.0.1.911543.3.579.2.1259 [id number] 1960Medicare [id number] 2.16840.1.9[id number] 2.840.1.201206.3.579.2.531 Social History DateTypeDetailFacilityStart: 11-25-2018 End: 18-30-4693Nmjqmbx smoking status NHISNever smokerLake County Memorial Hospital - [facility]: 11-10-2019 End: 20-82-9426Hoooilk intakeCurrent drinker of alcohol (finding)[facility]: 07-55-3183Dhgvwpp CommentsLakewood Health System [facility]: 32-06-1170Wcv Assigned At BirthNot on [facility]: 11-25-2018 End: 66-50-7593Krrhgrv use and exposureSmokeless tobacco non-userTyrone ClinicStart: 65-95-9041Bvuhjkz SDOH Alcohol CommentsocialTyrone ClinicStart: 04-21-2019 End: 09-84-1171Ukd Assigned At BirthTyrone ClinicStart: 04-21-2019 End: 26-64-8248Opvsguq of Social functionLake County Memorial Hospital - Westtart: 70-08-6095Ghbwg Depression Screening Sltzkwsspn6Dvfwomkjz ClinicStart: 05-14-2024 End: 71-24-6647Ioqlgcg smoking status NHISSmokes tobacco dailyNOMS Healthcare Start: 17-59-6377Vemiqet CommentVapes dailyNOMS HealthcareStart: 09-04-2024 Alcohol Commentcaffeine intake: 12 oz coffee dailyNOMS HealthcareTobacco smoking status NHISTobacco smoking consumption unknownNOMS HealthcareDo you belong to any clubs or organizations such as judaism groups, unions, fraternal or athletic groups, or school groups?NoNOMS HealthcareAre you now , , , , never or living with a partner?DivorcedNOMS HealthcareHow often to you have a drink containing alcohol?Monthly or lessNOMS HealthcareHow many standard drinks containing alcohol do you have on a typical day?1 or 2NOMS HealthcareHow often do you have 6 or more drinks on 1 occasion? NeverNOMS HealthcareHow hard is it for you to pay for the very basics like food, housing, medical care, and heatingSomewhat hardNOMS HealthcareDo you feel stress - tense, restless, nervous, or anxious, or unable to sleep at night because yourmind is troubled all the time - these days [OSQ]Very muchNOMS Healthcare(I/We) worried whether (my/our) food would run out before (I/we) got money to buy more.Never trueNOMS HealthcareHistory of tobacco useTobacco Use Types Packs/Day Years Used Date Smoking Tobacco: Every Day Vaping/E-cigarettes Smokeless Tobacco: NeverBerger Hospital SystemStart: 23-73-9842Keguhke Comment sociallyProLima City Hospital SystemStart: 87-96-8305OspQafanu (finding)[facility] SystemStart: 40-09-9227Htk Assigned At [facility] Medical Equipment Procedure CodeEquipment CodeEquipment Original TextEquipment IdentifierDatesMesh o Vntrl [facility] [address] [facility] [id number] - Sn/A - [id number] Start: 04-01-2019 Goals DatePatient GoalDesired Activity/State Functional Status LmpdTalcnehkxpDajplxTplnrweq66-03-1645Lholhjx Health Questionnaire 2 item (PHQ- 2) [Reported][facility] CenterElfyjnfhhj13-96-6467Igubnzl Health Questionnaire 2 item (PHQ- 2) [Reported][facility] CenterZqilzblgwm10-23-8861PDM-5 quick depression assessment panel [Reported.PHQ][facility] CenterCzuzwcgqkd23-77-1853Dxwutzuvpjd anxiety disorder 7 item (TIMOTHY-7)[facility] Clinical Notes 09-15-2021 to 06-26-2025 Note Date & KjhaQggmRtcigplh42-15-1807 History of Present illness Narrative* Dorcas Peralta, FIRE CONTROL OFFICER - 06/26/2025 1:30 PM EDT Images from the original note were not included. Subjective ?Quick Links Last Note in Specialty Snapshot Edit RFV/CC Edit Screenings Current Meds Patient ID: Marita Messina is a 39 y.o. female who presents for Restless Legs. HPI History of Present Illness The patient presents for evaluation of restless legs, arm numbness, and double vision. She reports experiencing twitching in her legs during sleep, which is persistent. Additionally, sheexperiences episodes of arm numbness that disrupt her sleep or occur while she is at rest, such as watching television. These episodes are not specific to one arm and seem to occur randomly. She has been taking gabapentin 600 mg twice daily through pain management but continues to experience restless leg symptoms. She also mentions an incident where she perceived her surroundings as moving slowly while driving at a speed of 65 miles per hour, leading to a decrease in her driving frequency. Her children, who both have their licenses, have been assisting her with errands and other tasks. She has noticed an increase in hand tremors, although there have been no changes in her medication regimen. She recalls a recent event where she struggled to remember her activities from earlier in the day. She has not hadan MRI of her brain recently, as she used to see a neurologist for migraines but stopped going because neck injections have been helping her headaches. She has not been experiencing headaches or migra kiana. She reports no slurred speech but mentions occasional difficulty in articulating her thoughts. She has fallen three times while ascending stairs over the past month. She recently visited an eye doctor and reported experiencing double vision, particularly when usingher phone with contact lenses. This issue is not constant and seems to occur when she is focusing or concentrating. Her vision exam was normal. ?Quick Review Review Full History Edit History Meds - Current Medications[1] --- PMH - Anxiety Asthma (HCC) Chronic back pain Chronic neck pain Depression Fatty liver GERD (gastroesophageal reflux disease) Hyperlipemia Migraine Narcolepsy (HCC) Tremor Objective ?Quick Links Add Vitals Timeline (Adult) Labs Imaging Results Review Trend Vitals ?? Avoid pulling in long tables of results. Comment on relevant results to support your medical decision making. BP 124/72 (BP Location: Left arm, Patient Position: Sitting, BP Cuff Size: Large adult) Pulse 92 Wt 190 lb 9.6 oz SpO2 98% BMI 34.86 kg/m Physical Exam Vitals reviewed. Constitutional: Appearance: She is obese. HENT: Head: Normocephalic and atraumatic. Nose: Nose [...] and oriented to person, place, and time. Cranial Nerves: Cranial nerves 2-12 are intact. Motor: Tremor present. Physical Exam ?Quick Links Full Problem List Allergy Asthma GI Headache Assessment & Plan Restless leg syndrome Orders: Comprehensive metabolic panel; Future CBC and differential; Future Ferritin; Future TSH W/REFLEX TO FT4; Future Magnesium; Future Vitamin B12; Future -check labs Dysarthria Orders: Comprehensive metabolic panel; Future CBC and differential; Future Ferritin; Future TSH W/REFLEX TO FT4; Future Magnesium; Future Vitamin B12; Future MR brain wo contrast; Future -check labs and obtain imaging for further evaluation. Transient neurological symptoms Orders: Comprehensive metabolic panel; Future CBC and differential; Future Ferritin; Future TSH W/REFLEX TO FT4; Future Magnesium; Future Vitamin B12; Future MR brain wo contrast; Future Assessment & Plan 1. Restless leg syndrome: - Twitching in the legs at night and numbness in the arms, which wakes her up and occurs randomly during the day. - Gabapentin 600 mg twice a day through pain management but still experiences symptoms. - Blood work will be conducted today to check for anemia, electrolyte imbalance, iron levels, magnesium levels, and B12 levels. - An MRI of the brain will be ordered to rule out other potential causes. 2. Double vision: - Experiencing double vision, especially when focusing or concentrating, such as when using her phone. - Recent eye exam was normal. - An MRI of the brain will be ordered to investigate further. 3. Memory issues: - Difficulty recalling recent activities and articulating thoughts. - An MRI of the brain will be ordered to investigate these symptoms further. [1] albuterol HFA 90 mcg/act inhaler budesonide-formoterol (Symbicort) 160-4.5 MCG/ACT inhaler busPIRone (Buspar) 30 MG tablet cyclobenzaprine (Flexeril) 10 MG tablet FLUoxetine (PROzac) 40 MG capsule fluticasone (Flonase) 50 MCG/ACT nasal spray gabapentin (Neurontin) 300 MG capsule omeprazole (PriLOSEC) [address] capsule ondansetron ODT (Zofran-ODT) 4 MG disintegrating tablet propranolol (Inderal) 20 MG tablet Repatha SureClick 140 MG/ML injection rizatriptan (Maxalt) 5 MG tablet Tirzepatide-Weight Management (Zepbound) 12.5 MG/0.5ML solution auto-injector Vraylar 6 MG capsule clotrimazole-betamethasone (Lotrisone) cream erenumab (Aimovig) 140 MG/ML injection hydrOXYzine pamoate (Vistaril) 50 MG capsule LORazepam (Ativan) 0.5 MG tablet Seale-3 Fatty Acids (FISH OIL OMEGA-3 PO) traZODone (Desyrel) 50 MG tablet documented in this encounterLafayette Regional Health [id number] History of Present illness Narrative* Felix Hurt [facility] - 06/10/2025 11:00 AM EDT Images from the original note were not included. [facility] - PHARMACY MEDICATION MANAGEMENT [address] [id number] Subjective SUBJECTIVE: Referring Provider: Dr Long Smith [facility] Referring Provider: Yes Consult Agreement: Yes PCP: Jo-Ann Gee MD Marita Messina is a 39 y.o. (White or [1]) female who presents for an initial MTM visit of HYPERLIPIDEMIA, Other hyperlipidemia (E78.49) Elevated LDL cholesterol level (E78.00) Elevated triglycerides with high cholesterol (E78.2) Marita Messina is accompanied by her self. HPI/INTERIM HISTORY: RECENT/PAST HX: Pt has a h/o LFTs, so statins have been avoided Repatha was added 06.10.24 in response to LDL of 181 on 05.19.24, and pt started Fish Oil 2g BID as well. LDL then decreased to 65 and TGs to 234 on 11.03.25 On 11.24.24 it was noted: LDL is now at goal. Tgs are much improved. AST is in normal range and ALT has declined since May 2024. Recommend continuing repatha and fish oil. Wt loss would definitely help with lowering the Tgs, along with following a Mediterranean diet and exercise 20min daily. Pt got lipids done on 05.08.25, LDL decreased further to 44 and TGs to 198 On 05.12.25 it was noted: Reviewed. Numbers improved a lot. Would continue with current regimen, and follow up with [facility] clinic for lipid management for further management. TODAY 06.10.25: Today we find out pt stopped taking Fish Oil about 6 months d/t capsules were too hard to swallow Today we also find out pt was started on Zepbound 5-6 months ago by PCP, is now up to 12.5mg dose. Pt reports Zepbound has been tolerated without GI s/e and effective at decreasing appetite and weight In addition to less and healthier eating over the last 6 months, [place], and has plans to continue walking via treadmill when it gets too cold to walk outside So pt's LDL decreased from 65 to 44 and TGs from 234 to 198 with pt on Repatha only during that time, no Fish Oil. So TGs improved via pt's improved eating habits, increased exercise, and weight losswith Zepbound LDL is well within goal at 44, so Repatha fully effective and sufficient. While TGs are much betterthan previously, the are still above goal, >150, so advised pt to buy Fish Oil 500mg, smaller capsules, and take 2 caps (1g) QD, then will assess TGs again in 6 months Pt reports she had an US of her Liver, MASH/FLD was dx'd, and just today her GI provider at [facility] had her do Lipid Panel and LFTs again today - results not in CareEverywhere yet Pertinent current HYPERLIPIDEMIA medications include: Repatha 140mg [id number] *Zepbound 12.5mg Qweek Pertinent previous HYPERLIPIDEMIA medications include (*With Date & Reason why stopped): Fish Oil 1000mg, 2 caps BID - pt stopped November 2024 d/t 1000mg capsules too big to swallow DIET Since starting Zepbound about 5-6 months ago, pt has been eating less, eating healthier, and decreasing weight EXERCISE: Pt has been walking at the [employer] 3-4x/week, and has plans to continue walking via treadmill when it gets too cold to walk outside SMOKING STATUS: smoker vape Tobacco Cessation Interest if Current Smoker: No @OBECTIVEBEGIN@ OBJECTIVE: LABS: Lab Results Component Value Date CHOL 276 (H) 05/19/2024 CHOL 236 (H) 11/30/2023 CHOL 278 (H) 12/08/2021 Lab Results Component Value Date HDL 42 05/19/2024 HDL 48 11/30/2023 HDL 45 12/08/2021 Lab Results Component Value Date LDLCALC RESULT NOT REPORTED DUE TO HIGH TRIGLYCERIDE 05/19/2024 LDLCALC 124 11/30/2023 LDLCALC 198 (H) 12/08/2021 Lab Results Component Value Date TRIG 234 (H) 11/03/2024 TRIG 488 (H) 05/19/2024 TRIG 318 (H) 11/30/2023 No results found for: CKTOTAL Lab Results Component Value Date ALT 51 (H) 11/03/2024 AST 38 11/03/2024 ALKPHOS 78 05/19/2024 The ASCVD Risk score (Samra DK, et al., 2019) failed to calculate for the following reasons: The 2019 ASCVD risk score is only valid for ages 40 to 79 ASSESSMENT/PLAN: Hyperlipidemia: ASSESSMENT: Patient is not currently on a statin at guideline recommended dose If not, why not: LFTs too high Patient is not currently on ezetimibe at this time. If not, why not: Not sufficient in getting an LDL of 181 to goal Patient is currently on a PCSK9 inhibitor at this time. If not, why not: n/a Patient is not a candidate for Inclisiran therapy at this time. If not, why not: On Repatha and it's effective PLAN: Continue Repatha 140mg [id number] Buy Fish Oil 500mg, smaller capsules, and take 2 caps (1g) QD, then will assess TGs again in 6 months FOLLOW UP: Labs due in 6 months [id number] visit: 4.8.26 - Felix Hurt [facility] 06/10/25 10:01 AM 30 minute [id number] initial Felix Hurt [facility] 06/10/25 1142 documented in this encounterMag[facility]uder [facility]09-17-[facility] Evaluation note* Diagnosis Onset Date Resolution Status Admit Date Elevated LFTs acuteSept2024 8:35amFatty liveracuteSept2024 8:35am HyperlipidemiaacuteSept2024 8:35amObesity (BMI 30-39.9)acute May 27, 2025 8:35am [facility] Work Phone: [phone]) 547-445909-03-2025 Miscellaneous Notes* Telephone Encounter - Dee Webb MA - 05/13/2025 8:53 AM EDT [facility] - PHARMACY MEDICATION MANAGEMENT [address] [place] [address] New referral received by [facility] Medication Management for hyperlipidemia. Patient was contacted to schedule appointment at [facility] Medication Management [place] ([facility]). This wasmy first attempt to reach the patient and a message was left on their voicemail requesting a call back. Patient will be asked to bring [facility] Additional Info: Medication List. Referral was added to spreadsheet. Referring provider: Jurgen English MD documented in this encounterMagruder [facility]09-03-2025 Telephone encounter Note* Telephone Encounter - Dee Webb MA - 05/13/2025 8:53 AM EDT [facility] - PHARMACY MEDICATION MANAGEMENT [address] [facility] [id number] New referral received by [facility] Medication Management for hyperlipidemia. Patient was contacted to schedule appointment at [facility] Medication Management [place] ([facility]). This wasmy first attempt to reach the patient and a message was left on their voicemail requesting a call back. Patient will be asked to bring [facility] Additional Info: Medication List. Referral was added to spreadsheet. Referring provider: Jurgen English MD [facility]08-29-[facility] History of Present illness Narrative* Dorcas Peralta NP - 05/08/2025 11:00 AM EDTAssociated Problem(s): Obstructive sleep apnea syndrome Orders: Tirzepatide-Weight Management (Zepbound) 12.5 MG/0.5ML solution auto-injector; Inject 12.5 mg underthe skin 1 (one) time per week - increase zepbound as she is tolerating it well. * Dorcas Peralta NP - 05/08/2025 11:00 AM EDTAssociated Problem(s): Hyperlipidemia Orders: Lipid panel; Future * Dorcas Peralta NP - 05/08/2025 11:00 AM EDTAssociated Problem(s): Bipolar disorder (HCC) -stable managed by psych * Dorcas Peralta NP - 05/08/2025 11:00 AM EDTAssociated Problem(s): Obesity, Class II, BMI 35-39.9 Orders: Comprehensive metabolic panel; Future Lipid panel; Future TSH W/REFLEX TO FT4; Future Tirzepatide-Weight Management (Zepbound) 12.5 MG/0.5ML solution auto-injector; Inject 12.5 mg underthe skin 1 (one) time per week -Down another 8 lbs since last visit, 27 lbs total. Increase zepbound. Encouraged healthy eating habits, increase physical exercise. * Dorcas Peralta NP - 05/08/2025 11:00 AM EDTAssociated Problem(s): Asthma (HCC) Orders: budesonide-formoterol (Symbicort) 160-4.5 MCG/ACT inhaler; Inhale 2 puffs in the morning and 2 puffs before bedtime. albuterol HFA 90 mcg/act inhaler; Inhale 2 puffs every 6 (six) hours if needed for wheezing * Dorcas Peralta NP - 05/08/2025 11:00 AM EDTAssociated Problem(s): Migraine -stable with current regimen. * Dorcas Peralta NP - 05/08/2025 11:00 AM EDT Images from the original note were not included. Subjective ?Quick Links Last Note in Specialty Snapshot Edit RFV/CC Edit Screenings Current Meds Patient ID: Marita Messina is a 39 y.o. female who presents for Follow-up and Medicare Annual Wellness Visit Initial. HPI History of Present Illness The patient presents for evaluation of a head cold, asthma, and GERD. She has been experiencing symptoms of a head cold for the past 3 days, which she suspects may be related to her daughter's recent upper respiratory infection. She reports no fever but mentions a sensation of fullness in her ears, chest congestion, and nasal congestion. She has not been using Flonase. She experiences chest pain when coughing and has coughing fits, particularly at night or early inthe morning. Her bowel and bladder functions are normal. She maintains an active lifestyle, including walking at work. She does not use CPAP. She continues to see her psychiatrist. She has not had a recent consultation with her neurologist, Dr. Andrade, at the [facility]. She is currently on Zepbound. She continues to use her inhalers and experiences asthma flare-ups approximately every 6 weeks, each lasting about 3 days. She is not currently under the care of a fuse cutter. She is currently on Repatha and has had her labs drawn once since starting this medication. She hasannual check-ups with her eye doctor and had a dental visit 2 months ago. Her reflux symptoms are well-managed with daily omeprazole. She continues to see her ski edge painter. She has an upcoming appointment with her drop wire operator who has requested a liver enzyme test before considering the initiation of terbinafine. Medicare Wellness Morse Fall Risk History of Falling, Immediate or Within 3 Months: No Health Risk Assessment Form Do you need help eating, bathing, using the toilet, dressing, or getting around your home?: No Can you prepare your own meals?: Yes Can you do your own housework without help?: Yes Can you shop for groceries or clothes without help?: Yes Do you exercise for about 20 minutes 3 or more days a week?: Yes How confident are you that you can control and manage most of your health problems?: Very confident Can you mange your money, credit cards and accounts, pay bills and taxes?: Yes Vision Screening: Yes, no gross abnormalities Hearing Screening: Yes, no gross abnormalities Cognitive Screening Self Assessment: No overt cognitive deficiency is apparent by direct observation Three Word Registration: Apple, Watch, Bonnie Clock Drawing: Normal Clock - 2 Three Word Recall: All 3 words correct - 3 Total Score (0-5 Points): 5 Pain Assessment Pain Score: 5 - Moderate pain Advance Care Planning Do you have a living will?: No Do you have a medical power of environmental attorney?: No Over the past 2 weeks, how often have you been bothered by any of the following problems? Little interest or pleasure in doing things: More than half the days Feeling down, depressed, or hopeless: Not at all Trouble falling or staying asleep, or sleeping too much: More than half the days Feeling tired or having little energy: More than half the days Poor appetite or overeating: Not at all Feeling bad about yourself - or that you are a failure or have let yourself or your family down: Not at all Trouble concentrating on things, such as reading the newspaper or watching television: Several days Moving or speaking so slowly that other people could have noticed? Or the opposite - being so fidgety or restless that you have been moving around a lot more than usual.: Not at all Thoughts that you would be better off or hurting yourself in some way: Not at all Patient Health Questionnaire-9 Score: 7 Over the last 2 weeks, how often have you been bothered by any of the following problems? Feeling nervous, anxious, or on edge: More than half the days Not being able to stop or control worrying: Several days Worrying too much about different things: Several days Trouble relaxing: More than half the days Being so restless that it is hard to sit still: Several days Becoming easily annoyed or irritable: Not at all Feeling afraid as if something awful might happen: Not at all TIMOTHY-7 Total Score: 7 ?Quick Review Review Full History Edit History Meds - albuterol HFA 90 mcg/act inhaler budesonide-formoterol (Symbicort) 160-4.5 MCG/ACT inhaler busPIRone (Buspar) 30 MG tablet clotrimazole-betamethasone (Lotrisone) cream cyclobenzaprine (Flexeril) 10 MG tablet erenumab (Aimovig) 140 MG/ML injection FLUoxetine (PROzac) 40 MG capsule gabapentin (Neurontin) 300 MG capsule hydrOXYzine pamoate (Vistaril) 50 MG capsule LORazepam (Ativan) 0.5 MG tablet omeprazole (PriLOSEC) [address] capsule ondansetron ODT (Zofran-ODT) 4 MG disintegrating tablet propranolol (Inderal) 20 MG tablet Repatha SureClick 140 MG/ML injection rizatriptan (Maxalt) 5 MG tablet traZODone (Desyrel) 50 MG tablet Vraylar 6 MG capsule Zepbound 10 MG/0.5ML solution auto-injector ketoconazole (NIZOral) 2 % shampoo Seale-3 Fatty Acids (FISH OIL OMEGA-3 PO) --- PMH - Anxiety Asthma (HCC) Chronic back pain Chronic neck pain Depression GERD (gastroesophageal reflux disease) Hyperlipemia Migraine Narcolepsy (HCC) Tremor Objective ?Quick Links Add Vitals Timeline (Adult) Labs Imaging Results Review Trend Vitals ?? Avoid pulling in long tables of results. Comment on relevant results to support your medical decision making. BP 118/78 (BP Location: Right arm, Patient Position: Sitting, BP Cuff Size: Large adult) Pulse 106 Wt 194 lb SpO2 98% BMI 35.48 kg/m Physical Exam Vitals reviewed. Constitutional: Appearance: She is obese. HENT: Head: Normocephalic and atraumatic. Right Ear: A middle ear effusion is present. Tympanic membrane is not erythematous. Left Ear: A middle ear effusion is present. Tympanic membrane is not erythematous. Nose: Congestion present. Right Turbinates: Swollen. Left Turbinates: Swollen. Right Sinus: No maxillary sinus tenderness or frontal sinus tenderness. Left Sinus: No maxillary sinus tenderness or frontal sinus tenderness. Mouth/Throat: Mouth: Mucous membranes are moist. Pharynx: Postnasal drip present. Eyes: Extraocular Movements: Extraocular movements intact. Pupils: Pupils are equal, round, and reactive to light. Cardiovascular: Rate and Rhythm: Normal rate and regular rhythm. Pulses: Normal pulses. Heart sounds: Normal heart sounds. Pulmonary: Effort: Pulmonary effort is normal. Breath sounds: Normal breath sounds. Abdominal: General: Bowel sounds are normal. Palpations: Abdomen is soft. Tenderness: There is no abdominal tenderness. Musculoskeletal: General: Normal range of motion. Cervical back: Normal range of motion and neck supple. Right lower leg: No edema. Left lower leg: No edema. Skin: General: Skin is warm and dry. Capillary Refill: Capillary refill takes less than 2 seconds. Findings: No rash. Neurological: General: No focal deficit present. Mental Status: She is alert and oriented to person, place, and time. Physical Exam Nose: Nasal congestion noted. ?Quick Links Full Problem List Allergy Asthma GI Headache Hypertension Assessment & Plan Encounter for wellness examination Orders: Comprehensive metabolic panel; Future Lipid panel; Future TSH W/REFLEX TO FT4; Future Vitamin D 25 hydroxy; Future -Discussed height, weight and BMI. Encouraged healthy diet and regular exercise. Discussed vaccinesand encouraged yearly flu shot. Annual eye and dental exam. Vaccines and cancer screens reviewed for completeness. Screen labs as needed. Assessed needs for tools in the home for independence. Livingwill and durable power of environmental attorney reviewed. Updated patient problem list and reviewed all current medications with patient. Given time to ask questions. Obstructive sleep apnea syndrome Orders: Tirzepatide-Weight Management (Zepbound) 12.5 MG/0.5ML solution auto-injector; Inject 12.5 mg underthe skin 1 (one) time per week - increase zepbound as she is tolerating it well. Mixed hyperlipidemia Orders: Lipid panel; Future Bipolar affective disorder, remission status unspecified (HCC) -stable managed by psych Obesity, Class II, BMI 35-39.9 Orders: Comprehensive metabolic panel; Future Lipid panel; Future TSH W/REFLEX TO FT4; Future Tirzepatide-Weight Management (Zepbound) 12.5 MG/0.5ML solution auto-injector; Inject 12.5 mg underthe skin 1 (one) time per week -Down another 8 lbs since last visit, 27 lbs total. Increase zepbound. Encouraged healthy eating habits, increase physical exercise. Vitamin D deficiency Orders: Vitamin D 25 hydroxy; Future -check vitamin d level Nasal congestion Orders: STATUS COVID-19/FLU fluticasone (Flonase) 50 MCG/ACT nasal spray; Administer 1 spray into each nostril Daily Shake gently. Before first use, prime pump. After use, clean tip and replace cap. Moderate persistent asthma without complication (HCC) Orders: budesonide-formoterol (Symbicort) 160-4.5 MCG/ACT inhaler; Inhale 2 puffs in the morning and 2 puffs before bedtime. albuterol HFA 90 mcg/act inhaler; Inhale 2 puffs every 6 (six) hours if needed for wheezing Intractable migraine without aura and without status migrainosus -stable with current regimen. Gastroesophageal reflux disease without esophagitis Hepatic steatosis -low cholesterol/fat diet, keep active Spondylosis of cervical spine -followed by pain management Assessment & Plan 1. Head cold: - Symptoms include nasal congestion, chest congestion, and coughing fits, especially at night and in the morning. - A swab for COVID-19 will be taken today to rule out infection. -Most likely viral in nature, will need to run its course. Educated patient viral infections such as colds/flus do not respond to abx and typically do not begin to improve until 7-10 days into the illness. Discussed symptomatic treatment with patient. Humidifier at bedside to moisten area. Push fluids. Rest. Good handwashing. Follow up if symptoms do not improve. To ER for markedly worsening symptoms. - Flonase sent to pharmacy to help with nasal congestion, educated on proper administration of medication. 2. Asthma: - Asthma is flaring up due to the head cold. - Refills for inhalers will be sent to the pharmacy. 3. Hyperlipidemia: - Labs will be drawn today to monitor her lipid levels, as they have not been rechecked since starting Repatha. - She is currently on Repatha. 4. Gastroesophageal reflux disease (GERD): - Her reflux is well-controlled with daily omeprazole. 5. Pain management: - She continues to see pain management. documented in this encounterLafayette Regional Health [id number] History of Present illness Narrative* Sherie Maria, JOSE - 04/28/2025 4:00 PM EDT Images from the original note were not included. Subjective Patient ID: Marita Messina is a 39 y.o. female who presents for Fungus (Established patient presents today for 3 month fungal nail fuv. Patient continues to use formula 7 and listerine. Patient reports improvement in the appearance in her nails, states RGT is worst. ). HPI Follow-up assessment: Onychodystrophy/mycosis multiple digits. Patient reports some degree of interval improvement from last visit with topical care measures; with the exception of the right great toenail. Patient did not pursue hepatic enzymes following last visit. Patient maintains favorable resolution of the skin condition. Reports good compliance with topical care measures. Medications Current Outpatient Medications: albuterol HFA 90 mcg/act inhaler, , Disp: , Rfl: budesonide-formoterol (Symbicort) 160-4.5 MCG/ACT [...] needed in the evening., Disp: , Rfl: erenumab (Aimovig) 140 MG/ML [...] morning and 50 mg as needed inthe evening., Disp: , Rfl: ketoconazole (NIZOral) 2 % shampoo, Apply topically 2 (two) times a week, Disp: 120 mL, Rfl: 0 LORazepam (Ativan) 0.5 MG tablet, Take 1 tablet by mouth every 6 (six) hours if needed, Disp: , Rfl: Seale-3 Fatty Acids (FISH OIL OMEGA-3 PO), Take 2 g by mouth in the morning and 2 g before bedtime.2 g 2 tab bid. ., Disp: , Rfl: omeprazole (PriLOSEC) [address] capsule, TAKE 1 CAPSULE(20 MG) BY MOUTH DAILY AT THE SAME TIME, Disp: 90 capsule, Rfl: 0 ondansetron ODT [...] , Rfl: Tirzepatide-Weight Management (Zepbound) 10 MG/0.5ML solution auto-injector, Inject 10 mg under theskin 1 (one) time per week, Disp: 6 mL, Rfl: 0 traZODone (Desyrel) 50 MG tablet, Take 50 [...] response to date,treatment strategy, rationale and objectives. Continue topical care measures: Formula 7; preceded by use of vinegar and/or Listerine as directed. Continue Lotrisone once daily as needed. Labs: Hepatic function panel. If enzymes are close or well within the normal range value; mutual agreement again to proceed with oral terbinafine therapy; which she states that she was on some years previous; completed a 90 day course without adverse effects; noting favorable transient improvement. Procedure: Toenail debridement: Aseptic technique: Hand and [...] understanding. Sherie Maria DPM documented in this [facility]08-19-2025 Instructions* Patient Instructions* Sherie Maria DPM - 04/28/2025 4:00 PM EDT As noted documented in this [facility]05-30-2025 History of Present illness Narrative* Dorcas Peralta NP - 02/06/2025 11:00 AM EDT Images from the original note were not included. Mairta Messina is a 39 y.o. female presents [...] tablet 1 tablet, Every 6 hours PRN Seale-3 Fatty Acids (FISH OIL OMEGA-3 PO) 2 [...] pain management as scheduled documented in this encounterLafayette Regional Health [id number] History of Present illness Narrative* Sherie Maria DPM - 10/27/2024 4:15 PM EST Images from the original note were not included. Subjective Patient ID: Marita Messina is a 39 y.o. female who presents for Fungus (Established pt presentstoday for fuv of fungal nails. Pt states [...] toenail condition. Reports good compliance with topical caremeasures. Medications Current Outpatient Medications: albuterol HFA 90 [...] (six) hours if needed, Disp: , Rfl: Seale-3 Fatty Acids (FISH OIL OMEGA-3 PO), Take 2 g by mouth in the morning and 2 g before bedtime.2 g 2 tab bid. ., Disp: , [...] response to date,treatment strategy, rationale and objectives. Continue topical care [...] understanding. Sherie Maria DPM documented in this encounterNOMS [id number] Instructions* Patient Instructions* Sherie Maria DPM - 10/27/2024 4:15 PM EST Topical care measures as noted documented in this [facility]01-06-2025 History of Present illness Narrative* Dorcas Peralta NP - 09/15/2024 11:00 AM EST Images from the original note were not included. Marita Messina is a 39 y.o. female presents with chief complaint of Weight Check HPI: HPI History of Present Illness The patient presents for evaluation of weight management, sleep apnea, elevated cholesterol levels,and elevated liver enzymes. She has not yet initiated the use of compounded medication due to a pending insurance change at thestart of the year. She is considering utilizing a $ 200 supplemental card for this purpose. She has been diagnosed with sleep apnea. She is scheduled for a cholesterol recheck. However, she consumed coffee with creamer this morning,which may affect the results. She plans to have her cholesterol levels checked tomorrow. Her wound care nurse has expressed concern over her fluctuating liver enzyme levels and has ordered a retest. She has not undergone any extensive workup for her liver, only lab tests. Her liver enzyme levels have shown variability in the past. She is uncertain if she has fatty liver disease. She has been prescribed a tuvaluan for a toenail fungus, which has proven [...] tablet 1 tablet, Every 6 hours PRN Seale-3 Fatty Acids (FISH OIL OMEGA-3 PO) 2 [...] is agreeable to this. documented in this encounterLafayette Regional Health [id number] NotePatient Education Materials Name: MayuriMarita mariscal Current Date: 08/11/2024 16:18:15 [facility] : 1985 The following sheet(s) are the Patient Education Leaflets for Mayuri Marita Adriana Oncology Breast Health: Breast Self-Awareness What [...] breast self-exam (BSE). These experts include the [place] [employer] and the [place] [employer]nec[employer]. Some experts [...] in your breasts that worry you. These changesmay be: ?A lump ?Nipple discharge other than [...] This means they are not cancer. ? [id number] [employer]. All rights reserved. This information is not [...] organs may sag out of place. The urethramay open too easily. This can allow urine [...] more you do them, the faster you?ll feelthe results. ?Pick an activity you do often as a reminder. For instance, do your these exercises every time you sit down. ?Tighten your pelvic floor before you sneeze, get up from a chair, cough, laugh, or lift. This can help prevent urine, gas, or stool leakage. ? [id number] [employer]. All rights reserved. This information is not intended as a substitute fo (more content not included)...[facility]11-25-2024 History of Present illness Narrative* Sherie Maria, JOSE - 08/04/2024 3:30 PM EST Subjective Patient ID: Marita Messina is a 39 y.o. female who presents for Fungus (Pt is here today for fungal nails, first noticed about 1 yr ago. Also athlete's foot BL. She has tried OTC topical fungal tuvaluan, no change noted. /SS:8 ). HPI Initial [...] and not practical. Patient typically has toenail tuvaluan on a constant basis. Also complains of [...] (six) hours if needed, Disp: , Rfl: Seale-3 Fatty Acids (FISH OIL OMEGA-3 PO), Take 2 g by mouth in the morning and 2 g before bedtime.2 g 2 tab bid. ., Disp: , [...] skin every 14 (fourteen) days, Disp:, Rfl: Vraylar 6 MG capsule, Take 1 [...] most recent hepatic enzymes elevated (May 2024). [place] agreement to proceed with topical care measures: [...] understanding. Sherie Maria DPM documented in this [facility]11-25-2024 Instructions* Patient Instructions* Sherie Maria DPM - 08/04/2024 3:30 PM EST As noted documented in this [facility]10-07-2024 History of Present illness Narrative* Dorcas Peralta NP - 06/16/2024 11:00 AM EDT Images from the original note were not [...] 1 tablet, Oral, Every 6 hours PRN Seale-3 Fatty Acids (FISH OIL OMEGA-3 PO) 2 [...] cover weight loss medication. Risk and benefits ofcompounded semaglutide treatment were discussed. Patient understands that this is not an exact formulation or dosage approved by the FDA for weight loss. We feel that we have thoroughly investigated with due diligence and using a well established local sterile compounding pharmacy and are conformable with their values and practices They are also a [employer]AB accredited and rated highly by the [employer]. Prescription sent to pharmacy Bipolar disorder in full remission, most recent episode unspecified type (CMS/HCC) -Followed by psych Mixed dyslipidemia (CMS/HCC) -Followed by cardiology documented in this encounterLafayette Regional Health [id number] Miscellaneous Notes* Telephone Encounter - Marita Richardson RN - 06/09/2024 3:12 PM EDT Images from the original note were not included. Pt called back as she stated that received a msg from re: her recent cholesterol labs. Reviewed recent cholesterol labs and result notes/orders from [place] as charted below: Jennifer Zamora, Cheryl 06/09/2024 [...] or sugary beverages, along with wt loss. Ptwas just prescribed wegovy which should help with wt loss and therefore help lower the tgs. Would al so recommend fish oil 4 gm daily to [...] the cause of her elevated LFTs. For nowwould recommend repatha to lower the LDL. Adam Kumari RN 05/20/2024 8:22 AM EDT Pt is aware of abnormal lab results and v/u we will call with further recommendations. Adam Kumari RN 05/20/2024 8:20 AM EDT MD Adam Cruz, NELLI Medina, can you please refer patient to lipid clinic for education and assistance managing hyperlipidemia. Thanks! Pt verbalized understanding and was agreeable to [place]'s orders/'s recommendations. Pt requested that script for Repatha be sent to [facility] in [place] and stated that she will get the Fish Oil OTC. Above orders routed to the [place] to sign and send.-SRS documented in this encounterMagruder [facility] Hospital09-30-2024 Telephone encounter Note* Telephone Encounter - Marita Richardson RN - 06/09/2024 3:12 PM EDT Images from the original note were not included. Pt called back as she stated that received a msg from re: her recent cholesterol labs. Reviewed recent cholesterol labs and result notes/orders from [place] as charted below: Jennifer Zamora PharmD 06/09/2024 2:05 PM EDT Back to [facility] [place] per [place] for pt to start repatha 140mg sc [...] or sugary beverages, along with wt loss. Ptwas just prescribed wegovy which should help with wt loss and therefore help lower the tgs. Would al so recommend fish oil 4 gm daily to [...] the cause of her elevated LFTs. For nowwould recommend repatha to lower the LDL. Adam Kumari RN 05/20/2024 8:22 AM EDT Pt is aware of abnormal lab results and v/u we will call with further recommendations. Adam Kumari RN 05/20/2024 8:20 AM EDT MD Adam Cruz RN In [place], can you please refer patient to lipid clinic for education and assistance managing hyperlipidemia. Thanks! Pt verbalized understanding and was agreeable to [facility]'s orders/'s recommendations. Pt requested that script for Repatha be sent to [facility] in [place] and stated that she will get the Fish Oil OTC. Above orders routed to the [facility] to sign and send.-SRS [facility] [employer] [id number] History of Present illness Narrative* Dorcas Peralta NP - 05/23/2024 10:30 AM EDT Images from the original note were not [...] Bipolar disorder, unspecified (CMS/HCC) documented in this [facility]09-12-2024 History of Present illness Narrative* Dorcas Peralta NP - 05/22/2024 9:40 AM EDT klo documented in this [facility]09-04-2024 History of Present illness Narrative* Dorcas Peralta NP - 05/14/2024 11:30 AM EDT Marita Messina is a 38 y.o. female presents with chief complaint of Establish Care and Weight Loss HPI: HPI Presents to the office to [facility]. She has gained a lot of [...] General health maintenance reviewed visit. Oriented to thepractice. Pt made aware of practice hours and [...] prescription to be refilled. documented in this encounterLafayette Regional Health [id number] History of Present illness Narrative* Jurgen English MD - 05/05/2024 10:30 AM EDT Marita Deysi Messina Date of visit: 05/05/2024 [...] Inhale 2 puffs in the morning and 2puffs before bedtime. cariprazine (VRAYLAR) 4.5 mg capsule Take 1 capsule (4.5 mg total) by mouth in the morning. cyclobenzaprine (FLEXERIL) 10 mg tablet Take 1 tablet (10 mg total) by mouth 2 (two) times a day asneeded for muscle spasms. FLUoxetine (PROzac) 40 MG capsule Take 1 capsule (40 mg total) by mouth in the morning. LORazepam (ATIVAN) 0.5 mg tablet Take 1 tablet (0.5 mg total) by mouth every 6 (six) hours as needed for anxiety. omeprazole (PriLOSEC) 40 mg capsule 1 capsule (40 mg total) in the morning and at bedtime. (Patienttaking differently: 20 mg in the morning.) 60 [...] by mouth in the morning and 1 tablet(20 mg total) before bedtime. 0 rizatriptan (MAXALT) 5 mg tablet rizatriptan 5 mg tablet No current facility-administered medications for this visit. Chief Complaint Patient presents with New Patient [employer] [facility], SINUS TACHY, NO PREVIOUS CARDIO, [...] Obstructive sleep apnea hypopnea, mild Pulmonary embolism ([facility]-HCC) history of , approx 2013 Sleep apnea Visual impairment contacts, glasses No data recorded No data recorded No data recorded Past Surgical History: Procedure Laterality Date DENTAL SURGERY wisdom teeth HERNIA REPAIR HYSTERECTOMY PARTIAL LASER ABLATION CONDYLOMA CERVICAL / VULVAR REPAIR HERNIA INCISIONAL VENTRAL MESH N/A 04/01/2019 Performed by Luis A Gr DO at [facility] Family History Problem Relation [...] Sinus tachycardia - [facility] [place], [place] 2. Chest pain, unspecified type - [facility] [place], [place] - Stress test (exercise only); Future - Echo complete W/O contrast; Future 3. Palpitation - [facility] [place], [place] 4. Hypertriglyceridemia - Lipid profile; Future [...] PE done last month. I ordered echocardiogram Greco assess baseline cardiac function. Exercise treadmill stress test torule out ischemia. Recommended seeing ENT for suspected [...] SPARROW MD Referring Physician: Caitlyn Sparrow MD [id number] [place] [address] documented in this encounterMagruder Memorial Hospital11-30-2023 Miscellaneous Notes* Telephone Encounter - Ashtyn Perez MA - 08/09/2023 7:55 AM EST Please see pended medication. Pharmacy linked. Last ordered 03/09/2023. Ashtyn Perez MA documented in this encounterFirelands [facility]06-30-2023 Miscellaneous Notes* Telephone Encounter - Ashtyn Perez MA - 03/09/2023 1:58 PM EDT Please see pended medication. Pharmacy linked. Last ordered 10/25/2022. Ashtyn Perez MA documented in this encounterFirelands Regional Medical [facility] South Campus11-01-2022 NoteCONSULTATION PROCEDURE DATE: 07/11/2022 PREOPERATIVE DIAGNOSIS: Spasming of [...] complication, will be followed up in the office.[facility] [id number] NoteCONSULTATION CONSULTATION DATE: 07/11/2022 CHIEF COMPLAINT: Trapezius and upper back pain. HISTORY OF PRESENT ILLNESS: This is a 36-year-old female who is known to the Pain Clinic. The patient, in October of this year, had a rhizotomy radiofrequency ablation along her cervical spine. This has afforded the patient significant improvement. 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 CC: Caitlyn Sparrow M.D.[facility] [id number] Miscellaneous Notes * Telephone Encounter - Ashtyn Ana Bazzi - 05/23/2022 7:35 AM EDT Please see pended medication. Pharmacy linked. Last ordered 10/20/2021. Ashtyn Perez Ma documented in this encounterFirelands [facility] Medical [facility]06-29-2022 NoteCONSULTATION CONSULTATION DATE: 03/08/2022 HISTORY OF PRESENT ILLNESS: [...] Patient does agree with plan of care. [facility] Signed and Approved by: LUDA RODRIGUEZ . 03/09/2022 13:38:00[facility]05-02-2022 Miscellaneous Notes* Telephone Encounter - Ashtyn Perez Ma - 01/09/2022 9:24 AM EDT Please see pended medication. Pharmacy linked. Last ordered 07/05/2021. Ashtyn Perez Ma documented in this encounterFirelands [facility] Medical Center South [facility]03-23-2022 NoteCONSULTATION PAIN MANAGEMENT CONSULTATION HISTORY OF PRESENT ILLNESS: [...] time, and patient agrees to this plan. [facility] Signed and Approved by: LUDA RODRIGUEZ . 12/01/2021 12:26:00[facility] [id number] NoteThe [place], [place] NAME: MARITA MESSINA DATE OF : MEDICAL REC#: [id number] CONTINUOUS IMPROVEMENT ENGINEER: 1421 LILIANA DAWKINS ADMIT DATE: 09/15/2021 12:21:00 HOSPITAL ACCOUNT MANAGER DATE: 09/16/2021 11:00 DICTATING PHYSICIAN: LUDA [...] Electronically Authenticated and Edited by: Luda Rodriguez [facility] on 09/25/2021 11:23 PM [facility] Signed and Approved by: LUDA RODRIGUEZ . 09/25/2021 23:23:00[facility]* Diagnosis Excessive physiologic tremor Essential and other specified forms of tremor documented in this encounter [facility] noteNo [employer] Other Evaluation note* Diagnosis Daytime sleepiness Narcolepsy without cataplexy documented [facility] this [facility]* Diagnosis Daytime sleepiness Narcolepsy without cataplexy documented in this [facility]* Diagnosis Daytime sleepiness Narcolepsy without cataplexy documented in this [facility]* Diagnosis Morbid (severe) obesity due to [...] index (BMI) 39.0-39.9, adult Bipolar disorder, unspecified ([facility]) Bipolar disorder, unspecified documented [facility]* Diagnosis Gastroesophageal reflux disease without esophagitis Esophageal reflux documented in this encounter [facility]* Diagnosis Obesity, Class II, BMI 35-39.9- Primary Encounter to establish care documented in this encounter [facility]* Diagnosis Rash- Primary Rash and other nonspecific skin eruption Obesity, Class II, BMI 35-39.9 documented in this encounter [facility]* Diagnosis Morbid (severe) obesity due to excess calories (CMS/HCC)- Primary BOGDAN (obstructive sleep apnea) Obstructive sleep apnea (adult) (pediatric) Hepatic steatosis Other chronic nonalcoholic liver disease Mixed hyperlipidemia (CMS/HCC) Mixed hyperlipidemia Elevated liver enzymes Other nonspecific abnormal serum enzyme levels documented in this encounter [facility]* Diagnosis Obstructive sleep apnea syndrome Obstructive sleep apnea (adult) (pediatric) documented in this encounter [facility]* Diagnosis Tremor- Primary Abnormal involuntary [...] level Severe obesity (BMI 35.0-39.9) with comorbidity ([facility]) Other fatigue [facility] Diagnosis Dermatophytosis of nail- Primary Dystrophic nail Other specified disease of nail Pain around toenail, right foot Pain around toenail, left foot documented in this encounter [facility]* Diagnosis Obstructive sleep apnea syndrome Obstructive sleep apnea (adult) (pediatric) documented in this encounter [facility]* Diagnosis Obstructive sleep apnea syndrome- Primary Obstructive sleep apnea (adult) (pediatric) Obesity, Class II, BMI 35-39.9 Chronic bilateral low back pain without sciatica documented in this encounter [facility]* Diagnosis Gastroesophageal reflux disease without esophagitis Esophageal reflux documented in this encounter [facility]* Diagnosis Tremor Abnormal involuntary movements documented in this encounter [facility]* Diagnosis Dermatophytosis of nail- Primary Dystrophic nail Other specified disease of nail Pain around toenail, right foot Pain around toenail, left foot documented in this encounter [facility]* Diagnosis Encounter for wellness examination- Primary Obstructive sleep apnea syndrome Obstructive sleep apnea (adult) (pediatric) Mixed hyperlipidemia Mixed hyperlipidemia Bipolar affective disorder, remission status unspecified (HCC) Obesity, Class II, BMI 35-39.9 Vitamin D deficiency Nasal congestion Other diseases of nasal cavity and sinuses Moderate persistent asthma without complication (HCC) Intractable migraine without aura and without status migrainosus Gastroesophageal reflux disease without esophagitis Esophageal reflux Hepatic steatosis Other chronic nonalcoholic liver disease Spondylosis of cervical spine documented in this encounter [facility]* Diagnosis Encounter for wellness examination- Primary Obstructive sleep apnea syndrome Obstructive sleep apnea (adult) (pediatric) Mixed hyperlipidemia Mixed hyperlipidemia Bipolar affective disorder, remission status unspecified (HCC) Obesity, Class II, BMI 35-39.9 Vitamin D deficiency Nasal congestion Other diseases of nasal cavity and sinuses Moderate persistent asthma without complication (HCC) Intractable migraine without aura and without status migrainosus Gastroesophageal reflux disease without esophagitis Esophageal reflux Hepatic steatosis Other chronic nonalcoholic liver disease Spondylosis of cervical spine Elevated liver enzymes- Primary Other nonspecific abnormal serum enzyme levels Hepatic steatosis Other chronic nonalcoholic liver disease documented in this encounter [facility]* Diagnosis Encounter for wellness examination- Primary Obstructive sleep apnea syndrome Obstructive sleep apnea (adult) (pediatric) Mixed hyperlipidemia Mixed hyperlipidemia Bipolar affective disorder, remission status unspecified (HCC) Obesity, Class II, BMI 35-39.9 Vitamin D deficiency Nasal congestion Other diseases of nasal cavity and sinuses Moderate persistent asthma without complication (HCC) Intractable migraine without aura and without status migrainosus Gastroesophageal reflux disease without esophagitis Esophageal reflux Hepatic steatosis Other chronic nonalcoholic liver disease Spondylosis of cervical spine Bipolar affective disorder, remission status unspecified (HCC)- Primary documented in this encounter [facility]* Diagnosis Encounter for wellness examination- Primary Obstructive sleep apnea syndrome Obstructive sleep apnea (adult) (pediatric) Mixed hyperlipidemia Mixed hyperlipidemia Bipolar affective disorder, remission status unspecified (HCC) Obesity, Class II, BMI 35-39.9 Vitamin D deficiency Nasal congestion Other diseases of nasal cavity and sinuses Moderate persistent asthma without complication (HCC) Intractable migraine without aura and without status migrainosus Gastroesophageal reflux disease without esophagitis Esophageal reflux Hepatic steatosis Other chronic nonalcoholic liver disease Spondylosis of cervical spine Hepatic steatosis- Primary Other chronic nonalcoholic liver disease documented in this encounter [facility]Evaluation note* Diagnosis Onset Date Resolution Status Admit Date Fatty liver acuteSeptember 2024 8:35am [facility] Work Phone: Evaluation note* Diagnosis Hyperlipidemia, unspecified hyperlipidemia type- Primary [facility]* Diagnosis Encounter for wellness examination- Primary Obstructive sleep apnea syndrome Obstructive sleep apnea (adult) (pediatric) Mixed hyperlipidemia Bipolar affective disorder, remission status unspecified (HCC) Obesity, Class II, BMI 35-39.9 Vitamin D deficiency Nasal congestion Other diseases of nasal cavity and sinuses Moderate persistent asthma without complication (HCC) Intractable migraine without aura and without status migrainosus Gastroesophageal reflux disease without esophagitis Esophageal reflux Hepatic steatosis Other chronic nonalcoholic liver disease Spondylosis of cervical spine Restless leg syndrome- Primary Restless legs syndrome (RLS) Dysarthria Transient neurological symptoms documented in this encounter [facility]Evaluation note* Diagnosis Encounter for wellness examination- Primary Obstructive sleep apnea syndrome Obstructive sleep apnea (adult) (pediatric) Mixed hyperlipidemia Bipolar affective disorder, remission status unspecified (HCC) Obesity, Class II, BMI 35-39.9 Vitamin D deficiency Nasal congestion Other diseases of nasal cavity and sinuses Moderate persistent asthma without complication (HCC) Intractable migraine without aura and without status migrainosus Gastroesophageal reflux disease without esophagitis Esophageal reflux Hepatic steatosis Other chronic nonalcoholic liver disease Spondylosis of cervical spine Obstructive sleep apnea syndrome- Primary Obstructive sleep apnea (adult) (pediatric) Obesity, Class II, BMI 35-39.9 documented in this encounter [facility]Evaluation note* Diagnosis Encounter for wellness examination- Primary Obstructive sleep apnea syndrome Obstructive sleep apnea (adult) (pediatric) Mixed hyperlipidemia Bipolar affective disorder, remission status unspecified (HCC) Obesity, Class II, BMI 35-39.9 Vitamin D deficiency Nasal congestion Other diseases of nasal cavity and sinuses Moderate persistent asthma without complication (HCC) Intractable migraine without aura and without status migrainosus Gastroesophageal reflux disease without esophagitis Esophageal reflux Hepatic steatosis Other chronic nonalcoholic liver disease Spondylosis of cervical spine Transient neurological symptoms- Primary Dysarthria BOGDAN (obstructive sleep apnea) Obstructive sleep apnea (adult) (pediatric) Hypersomnia Hypersomnia, unspecified documented in this encounter [facility] HealthcareInstructionsNot on filedocumented in this encounterProMedica Health SystemInstructionsNot on filedocumented in this encounterProMedila Bright Industry SystemInstructionsNot on filedocumented in this encounterProLima City Hospital System InstructionsNot on filedocumented in this encounterProLima City Hospital System InstructionsNot on filedocumented in this encounterProMercy Health St. Vincent Medical CenterLivongo Health System InstructionsNot on filedocumented in this encounterBerger Hospital SystemReason for referral (narrative)No reason for referral information availableAdena Health System Work Phone: Summary Purpose Family History Relationship Condition Age at Onset Recorded Date/T kwadwo father Diabetes mellitus Unknown HypertensionUnknownDepressionUnknownFamily history of mental disorderUnknown Advance Directives TypeDate RecordedPatient RepresentativeExplanationAdvance Directives and Living WillPower of Maintenance Craftsman Advance Directive Response Recorded Date/ Time Advance Directives No May 11:27am Advance Directive Response Recorded Date/ Time Advance Directives No May 10:27am History of Present Illness * Bradley Simmons MD - 11/10/2019 2:00 PM EST [facility] PATIENT NAME: Marita Messina MRN NUMBER: [id number] DATE OF : 1985 PHONE NUMBER: [phone] PRIMARY CARE PHYSICIAN: No primary care provider [...] other week [facility] Past Surgical History: Past Surgical History: Procedure Laterality Date HERNIA REPAIR a year had repair above belly button at [facility] HERNIA REPAIR umbilical and above belly buton also at [facility] about 2 years ago HYSTERECTOMY TUMOR REMOVAL Left [address] [facility] Family History: Family History Problem Relation Age [...] into the skin Indications: injection unknown does streallen, Disp: , Rfl: enoxaparin (LOVENOX) 30 MG/0.3ML [...] reports and images from the [facility] system E HR from May 2019 and [...] documented in this encounter Reason for Referral SpecialtyDiagnoses / ProceduresReferred By ContactReferred To Contact Diagnoses Chest pain, unspecified type Procedures Echo complete W/O contrast Amador, Jurgen, MD [address] [place] [address] Referral IDStatusReasonStblue springs DateExpiration DateVisits RequestedVisits [id number] Review/[id number] / ProceduresReferred By ContactReferred To Contact Diagnoses Chest pain, unspecified type Procedures Stress test (exercise only) Jurgen English MD [address] [place] [address] Referral IDStatusReasonPlymouth DateExpiration DateVisits RequestedVisits [id number] Review/ Chief Complaint and Reason for Visit Chief Complaint Admit Date Referred by Jo-Ann Gee: fatty liver May 27, 2025 8:35am Reason for Visit Admit Date Fatty liver May 27, 2025 8:35am Chief Complaint Admit Date Referred by Jo-Ann Gee: fatty liver May 27, 2025 8:35am fatty liver June 10, 2025 8: 49am Reason for Visit Admit Date Elevated LFTs May 27, 2025 8:35am Fatty liver May 27, 2025 8:35am Hyperlipidemia May 27, 2025 8:35am Obesity (BMI 30-39.9) May 27 8:35am Chief Complaint Admit Date Referred by Jo-Ann Gee: fatty liver May 27, 2025 8:35am fatty liver June 10, 2025 8: 49am K76.0 July 22, 2025 8:02am Additional Source Comments INFORMATION SOURCE (unrecogn ized section and content) DATE CREATED AUTHOR 05/31/2019 [facility] DATE CREATED AUTHOR AUTHOR'S ORGANIZ ATION 11/11/2019 [facility] DATE CREATED AUTHOR AUTHOR'S ORGANIZ ATION 12/01/2021 [facility] DATE CREATED AUTHOR AUTHOR'S ORGANIZ ATION 09/02/2022 [facility] DATE CREATED AUTHOR AUTHOR'S ORGANIZ ATION 04/11/2025 [facility] DATE CREATED AUTHOR AUTHOR'S ORGANIZ ATION 06/15/2025 [facility] DATE CREATED AUTHOR AUTHOR'S ORGANIZ ATION 07/12/2025 [facility] DATE CREATED AUTHOR AUTHOR'S ORGANIZ ATION 07/23/2025 [facility] Source Comments (unrecognize d section and content) In the event this informatio n is protected by the Federal Confidentiality of Alcohol and Drug Abuse Patient Records regulations: The Federal rules restrict any use of the information to criminally investigate or prosecute any alcohol or drug abuse patient.[facility] CampusIn the event this information is protected by the Federal Confidentiality of Alcohol and Drug Abuse Patient Records regulations: The Federal rules restrict any use of the information to criminally investigate or prosecute any alcohol or drug abuse patient.[facility] CampusIn the event this information is protected by the Federal Confidentiality of Alcohol and Drug Abuse Patient Records regulations: The Federal rules restrict any use of the information to criminally investigate or prosecute any alcohol or drug abuse patient.[facility] CampusIn the event this information is protected by the Federal Confidentiality of Alcohol and Drug Abuse Patient Records regulations: The Federal rules restrict any use of the information to criminally investigate or prosecute any alcohol or drug abuse patient.[facility] Reason for Visit (unrecogniz ed section and content) ReasonOnset DateCommentsRefill Fgnxqtq64/02/2022ReasonOnset DateCommentsRefill Grzevvr2603/09/2023ReasonOnset DateCommentsRefill Hdzwcpy3708/09/2023ReasonComments Follow-upReasonCommentsFungusPt is here today for fungal nails, first noticed about 1 yr ago. Also athlete's foot BL. She has tried OTC topical fungal tuvaluan, no change noted. SS:8ReasonCommentsRashReasonOnset DateCommentsMed Refill 4ReasonCommentsEstablish CareWeight LossReasonCommentsWeight Check ReasonOnset DateCommentsMed Zivhul0609/20/2024ReasonCommentsNew PatientNP ER [facility], SINUS TACHY, NO PREVIOUS CARDIO, SCHED W/PTSpecialtyDiagnoses / Procedures Referred By ContactReferred To ContactCardiology Diagnoses Sinus tachycardia Chest pain, unspecified type Palpitation Gage Webb, DO [address] [place] [address] [facility] [address] [id number] Referral IDStatusReasonStart DateExpiration DateVisits RequestedVisits [id number] Review Specialty Services Required 1ReasonOnset DateCommentsCholesterol labs4Reason CommentsFungusEstablished pt presents today for fuv of fungal nails. Pt states she does not think the formula 7 is working very well, especially with the RGT. Pt states she is getting blood work done tomorrow for the possibility of getting terbinafine medication.ReasonOnset DateCommentsMed Qlqqxz6911/03/2024Reason CommentsMed RefillReasonCommentsFungusEstablished patient presents today for 3 month fungal nail fuv. Patient continues to use formula 7 and listerine. Patient reports improvement in the appearance in her nails, states RGT is worst.Reason Onset DateCommentsMed Tjkznk9605/05/2025ReasonCommentsFollow-upMedicare Annual Wellness Visit InitialReasonOnset DateCommentsMed Xcifog8205/08/2025ReasonComments MTM Initial VisitReasonCommentsRestless Legs Care Teams (unrecognized sec tion and content) Team MemberRelationshipSpecialtyStart DateEnd Date Caitlyn Sparrow Amber [address] [place] [address] PCP - GeneralInternal Medicine11/25/18Team MemberRelationshipSpecialtyStart Date End Date Caitlyn Sparrow Amber [address] [place] [place] [address] PCP - GeneralInternal Medicine11/25/18Team MemberRelationshipSpecialtyStart Date End Date Caitlyn Sparrow Amber [address] [place] [address] PCP - GeneralInternal Medicine11/25/18Team MemberRelationshipSpecialtyStart Date End Date Caitlyn Sparrow [address] [place] [address] PCP - GeneralInternal Medicine11/25/18Team MemberRelationshipSpecialtyStart Date End Date Jo-Ann Gee MD [address] [place] [address] PCP - GeneralFamily Medicine05/09/24Team MemberRelationshipSpecialtyStart DateEnd Date Jo-Ann Gee MD [address] [place] [address] PCP - GeneralFamily Medicine05/09/24Team MemberRelationshipSpecialtyStart DateEnd Date Jo-Ann Gee MD [address] [place] [address] PCP - GeneralFamily Medicine05/09/24Team MemberRelationshipSpecialtyStart DateEnd Date Jo-Ann Gee MD [address] [place] [address] PCP - GeneralFamily Medicine05/09/24Team MemberRelationshipSpecialtyStart DateEnd Date Jo-Ann Gee MD [address] [place] [address] PCP - GeneralFamily Medicine05/09/24Team MemberRelationshipSpecialtyStart DateEnd Date Jo-Ann Gee MD [address] [place] [address] PCP - GeneralFamily Medicine05/09/24Team MemberRelationshipSpecialtyStart DateEnd Date Jo-Ann Gee MD [address] [place] [address] PCP - GeneralFamily Medicine05/09/24Team MemberRelationshipSpecialtyStart DateEnd Date Jo-Ann Gee MD [address] [place] [address] PCP - GeneralFamily Medicine05/09/24Team MemberRelationshipSpecialtyStart DateEnd Date Jo-Ann Gee MD [address] [place] [address] PCP - GeneralFamily Medicine05/09/24Team MemberRelationshipSpecialtyStart DateEnd Date Jo-Ann Gee MD [address] [place] [address] PCP - GeneralFamily Medicine05/09/24 Jo-Ann Gee MD [address] [place] [address] PCP - [employer]09/10/24Team MemberRelationshipSpecialtyStart DateEnd Date Jo-Ann Gee MD [address] [facility] [place] [address] PCP - GeneralFamily Medicine05/09/24 Jo-Ann Gee MD [address] [facility] [place] [address] PCP - [employer]09/10/24Team MemberRelationshipSpecialtyStart DateEnd Date Caitlyn Sparrow MD PCP - GeneralPediatric03/08/24Team MemberRelationshipSpecialtyStart DateEnd Date Caitlyn Sparrow MD PCP - GeneralPediatric03/08/24Team MemberRelationshipSpecialtyStart DateEnd Date Caitlyn Sparrow MD PCP - GeneralPediatric03/08/24Team MemberRelationshipSpecialtyStart DateEnd Date Jo-Ann Gee MD [address] [place] [address] PCP - GeneralFamily Medicine05/09/24 Jo-Ann Gee MD [address] [place] [address] PCP - [employer]09/10/24Team MemberRelationshipSpecialtyStart DateEnd Date Jo-Ann Gee MD [address] [place] [address] PCP - GeneralFamily Medicine05/09/24 Jo-Ann Gee MD [address] [place] [address] PCP - [employer]09/10/24Team MemberRelationshipSpecialtyStart DateEnd Date Jo-Ann Gee MD [address] [place] [address] PCP - GeneralFamily Jdfmdqlt62/11/24Team MemberRelationshipSpecialtyStart Date End Date Jo-Ann Gee MD [address] [place] [address] PCP - GeneralFamily Medicine05/09/24 Jo-Ann Gee MD [address] [place] [address] PCP - [employer]/10/04Team MemberRelationshipSpecialtyStart DateEnd Date Jo-Ann Gee MD [address] [place] [address] PCP - GeneralFamily Medicine05/09/24 Jo-Ann Gee MD [address] [place] [address] PCP - [employer]09/10/24 Dorcas Peralta NP [address] [place] [address] Nurse Practitionermily Medicine02/06/25Team MemberRelationshipSpecialtyStart DateEnd Jo-Ann Gee MD [address] [place] [address] PCP - GeneralFamily Medicine05/09/24 Jo-Ann Gee MD [address] [place] [address] PCP - [employer]09/10/24 Dorcas Peralta NP [address] [place] [address] Nurse Practitionermily Medicine02/06/25Team MemberRelationshipSpecialtyStart DateEnd Jo-Ann Gee MD [address] [place] [address] PCP - GeneralFamily Medicine05/09/24 Jo-Ann Gee MD [address] [place] [address] PCP - Aettraci09/10/24 Dorcas Peralta NP [address] [place] [address] Nurse PractitionerFamily Medicine02/06/25Team MemberRelationshipSpecialtyStart DateEnd Date Jo-Ann Gee MD [address] [place] [address] PCP - GeneralFamily Medicine05/09/24 Jo-Ann Gee MD [address] [place] [address] PCP - Aet09/10/24 Dorcas Peralta NP [address] [place] [address] Nurse PractitionerDavis County Hospital And Clinicsly Medicine02/06/25Team MemberRelationshipSpecialtyStart DateEnd Date Jo-Ann Gee MD [address] [place] [address] PCP - GeneralFamily Wrkiimrd26/11/24Team MemberRelationshipSpecialtyStart Date End Jo-Ann Gee MD [address] [place] [address] PCP - GeneralFamily Medicine05/09/24 Jo-Ann Gee MD [address] [place] [address] PCP - Aet09/10/24 Dorcas Peralta NP [address] [place] [address] Nurse Practitionermily Medicine02/06/25Team MemberRelationshipSpecialtyStart DateEnd Jo-Ann Gee MD [address] [place] [address] [facility]CP - [facility] Medicine05/09/24 Jo-Ann Gee MD [address] [place] [address] PCP - [employer]et[employer]09/10/24 Dorcas Peralta, FIRE [employer]OL OFFICER [address] [place] [address] Nurse PractitionerTaravista Behavioral Health Center Medicine02/06/25Team MemberRelationshipSpecialtyStart DateEnd Jo-Ann Gee MD [address] [place] [address] PCP - GeneralDavis County Hospital And Clinicsly Medicine05/09/24 Jo-Ann Gee MD [address] [place] [address] PCP - [employer]09/10/24 Dorcas Peralta, KOBE [address] [place] [address] Nurse PractitionerTaravista Behavior[facility] Medicine02/06/25Team MemberRelationshipSpecialtyStart DateEnd Jo-Ann Gee MD [address] [place] [address] PCP - GeneralT[facility] Medicine05/09/24 Jo-Ann Gee MD [address] [place] [address] PCP - [employer]09/10/24 Dorcas Peralta NP [address] [facility] [place] [address] Nurse PractitionerTaravista Behavioral [facility] Medicine02/06/25Team MemberRelationshipSpecialtyStart DateEnd Date Jo-Ann Gee MD [address] [place] [facility] [place] [address] PCP - GeneralT[facility] Hwdhxyoz96/11/24Team MemberRelationshipSpecialtyStart Date End Date Jo-Ann Gee MD [address] [place] [facility] [place] [address] PCP - GeneralT[facility] Medicine05/09/24 Jo-Ann Gee MD [address] [place] [facility] [place] [address] PCP - [employer]et[employer]09/10/24 Dorcas Peralta NP [address] [place] [facility] [place] [address] Nurse PractitionerJefferson Hospital02/06/25 Team Status: Active Member Role Status Dates Jo-Ann Gee MD Primary Care Provide r Active Team Status: Inactive Member Role Status Dates Jo-Ann Gee MD Primary Care Provider Active Start: May 112024 End: May 27, 2025Woodrow Valentino APRNAttenjermaine ProviderActiveStart: May 27, 2025 End: May 27, 2025 Team Status: Inactive Member Role Status Dates Jo-Ann Gee MD Primary Care Provider Active Start: June End: June 10, 2025Temporary FibroscanAttending ProviderActiveStart: June 10, 2025 End: June 10, 2025Derrick A Grohe , APRNReferring ProviderActiveStart: June 10, 2025 End: June 10, 2025Team MemberRelationshipSpecialtyStart DateEnd Date Jo-Ann Gee MD [address] [place] [address] PCP - GeneralFamily Hoffwodv25/11/24Team MemberRelationshipSpecialtyStart Date End Date Jo-Ann Gee MD [address] [place] [address] PCP - GeneralFamily Medicine05/09/24 Jo-Ann Gee MD [address] [place] [address] PCP - [employer]09/10/24 Dorcas Peralta NP [address] [place] [address] Nurse PractitionerFamily Medicine02/06/25Team MemberRelationshipSpecialtyStart DateEnd Date Jo-Ann Gee MD [address] [place] [address] PCP - GeneralFamily Medicine05/09/24 Jo-Ann Gee MD [address] [place] [address] PCP - [employer]09/10/24 Dorcas Peralta NP [address] [place] [address] Nurse PractitionerFamily Medicine02/06/25Team MemberRelationshipSpecialtyStart DateEnd Date Jo-Ann Gee MD [address] [place] [address] PCP - GeneralT[facility] Medicine05/09/24 Jo-Ann Gee MD [address] [facility] [place] [address] PCP - [employer]09/10/24 Dorcas Peralta NP [address] [facility] [place] [address] Nurse PractitionerTaravista Behavior[facility] Medicine02/06/25Team MemberRelationshipSpecialtyStart DateEnd Jo-Ann Gee MD [address] [facility] [place] [address] PCP - GeneralTaravista [facility] Medicine05/09/24 Jo-Ann Gee MD [address] [facility] [place] [address] PCP - Aet09/10/24 Dorcas Peralta NP [address] [facility] [place] [address] Nurse PractitionerJefferson Hospital02/06/25 Team Status: Active Member Role/Relationship Status Dates Jo-Ann Gee MD Primary Care Provide r Active Team Status: Inactive Member Role/Relationship Status Dates Jo-Ann Gee MD Primary Care Provider Active Start: May 112024 End: May 27, 2025Woodrow Valentino APRNAttenjermaine ProviderActiveStart: May 27, 2025 End: May 27, 2025 Team Status: Active Member Role/Relationship Status Dates Jo-Ann Gee MD Primary Care Provider Active Start: June Temporary FibroscanOther ProviderActiveStart: June 10, 2025 Woodrow A Grohe , APRNReferring ProviderActiveStart: June 10, 2025 Tico Amador , MDAttending ProviderActiveStart: June 10, 2025 Team Status: Inactive Member Role/Relationship Status Dates Jo-Ann Gee MD Primary Care Provider Active Start: July 222024 End: July 22, 2025Silasnils Freitas Chicho , APRNAttending ProviderActiveStart: July 22, 2025 End: July 22, 2025 Goals (unrecognized section and content) Goals may be documented in a n alternate section FOR RECORDS PERTAINING TO PATIENTS WHO ARE [...] BE BASED ON THE PRIMARY CLINICAL RECORDS. [employer] provides no warranty or guarantee of the accuracy or completeness of information in this document.
[2025-08-03 10:31] VITALS: BP 111/78; PULSE 89; TEMP 36.7; O2SAT 98
[2025-08-03] MEDS: DEXAMETHASONE SOD PHOS 10 MG/ML VIAL INJ (11:28)
[2025-08-03] MEDS: IOHEXOL 240 MG/ML - 10 ML VIAL INJ (11:28)
[2025-08-03] MEDS: LIDOCAINE HCL 2% 400 MG/20 ML MDV 5 ML INJ (11:28)
[2025-08-03] MEDS: BUPIVACAINE HCL 0.25% PF 25 MG/10 ML VIAL INJ (11:28)
--- NOTE | 2025-08-03 11:28 | W.PM.PROCNOT ---
Date of procedure: 08/03/25 Pre-op diagnosis: Pain due to cervical radiculopathy Post-op diagnosis: same as pre-op Procedure: Procedure: Bilateral C5-6 transforaminal epidural steroid injection Medications: Bupivacaine 0.25% 1cc, lidocaine 2% 1cc, dexamethasone 10mg The patient was seen and examined in the preoperative holding area.? Informed consent was obtained and placed on the chart.? Patient was brought to the medical procedure unit and placed in the prone position where a timeout was completed verifying the correct patient, procedure site, position, and planned special equipment using sterile aseptic technique.? Under direct fluoroscopic visualization a 25-gauge Quincke tipped spinal needle was advanced at level left C5-6 to the designated neural foramen where contrast dye was injected to show adequate spread.? There was no evidence of vascular or adverse uptake.? Epidural spread was appreciated.? The above-mentioned injectate was then placed in a 1.5 mL aliquot preceded by negative aspiration.? The needle was removed. The same procedure, at the same level, was completed on the opposite side. ? Patient was taken to the postprocedural recovery area and monitored for an appropriate length of time before found suitable for discharge in the accompaniment of a responsible adult. Anesthesia: Local Surgeon: Sana Radford Pathology: none sent Condition: stable Disposition: no change
[2025-08-03 11:30] VITALS: BP 111/73; BP 115/56; PULSE 84; PULSE 88; O2SAT 98
== END 2025-08-03 11:30 | disposition home or self-care (01) ==
PROVIDERS: PCP Internal Medicine; Visit Provider Anesthesiology
DX: M54.12 Radiculopathy, cervical region (principal); G89.29 Other chronic pain
CPT/HCPCS: 64479; J0665; J1100; Q9966

== ENCOUNTER 2025-08-12 11:03 | Outpatient (OUT) | payer MEDICARE, MEDICAID, SELFPAY ==
--- OUTSIDE RECORDS SUMMARY | 2025-07-29 13:15 | XMS_ITS | Encounter Summary ---
Author Organization [facility] Address [address] [place] [address] Care Team Providers Care Hose Builder Name Role Phone Jo-Ann Carlson MD Primary Care Provider [phone] Jo-Ann Carlson MD Unavailable [phone] Dorcas Peralta NP Unavailable [phone] Reason for Visit * ReasonCommentsFungal nail FUVSpawel Messina is a 39 y.o. female. Established patient presents today for 3 month fungal nail fuv. Patient relates no change, she has stopped Formula 7, 2 weeks ago when she ran out. Patient continues to use listerine daily. Encounter Details DateTypeDepartmentCare Team (Latest Contact Info)Ztxauivtfel47/19/2025 1:15 PM ESTOffice Visit [facility] [address] [place] [id number] Aiden Maria, DPTunde [address] [place], [place] [id number] Dermatophytosis of nail (Primary Dx); Dystrophic nail; Pain around toenail, right foot; Pain around toenail, left foot Social History Tobacco UseTypesPacks/DayYears UsedDateSmoking Tobacco: Every DaySmokeless Tobacco: Never Comments:Vapes daily Alcohol UseStandard Drinks/WeekCommentsYes3 (1 standard drink = 0.6 oz pure alcohol)caffeine intake: 12 oz coffee oqchuO1763 Health LiteracyAnswerDate RecordedHow often do you need to have someone help you when you read instructions, pamphlets, or other written material from your doctor or pharmacy? Never09/14/2024Social Connection and Isolation PanelAnswerDate RecordedIn a typical week, how many times do you talk on the phone with family, friends, or neighbors?More than three times a week09/14/2024How often do you get together with friends or relatives?Once a week09/14/2024How often do you attend evangelical or cheondoism services?Never09/14/2024Do you belong to any clubs or organizations such as evangelical groups, unions, [email or web address] or athletic groups, or school groups?No 09/14/2024How often do you attend meetings of the clubs or organizations you belong to?Never09/14/2024re you , , , , never , or living with a partner?Urtgjdem46/05/2025UDIT-CAnswerDate Recorded Q1: How often do you have a drink containing alcohol?Monthly or less09/14/2024 Q2: How many drinks containing alcohol do you have on a typical day when you are drinking?1 or Q3: How often do you have six or more drinks on one occasion?Never09/14/2024Overall Financial Resource Strain (CARDIA)AnswerDate RecordedHow hard is it for you to pay for the very basics like food, housing, medical care, and heating?Somewhat hard09/14/2024PHQ-2AnswerDate RecordedPatient Health Questionnaire-2 Yjtiv398Finuintah [facility] medical center [place] of Occupational Health - Occupational Stress QuestionnaireAnswerDate RecordedDo you feel stress - tense, restless, nervous, or anxious, or unable to sleep at night because your mind is troubled all the time - these days?Very much09/14/2024Exercise Vital SignAnswerDate RecordedOn average, how many days per week do you engage in moderate to strenuous exercise (like a brisk walk)?3 days09/14/2024On average, how many minutes do you engage in exercise at this level?30 min09/14/2024Hunger Vital SignAnswerDate RecordedWithin the past 12 months, you worried that your food would run out before you got the money to buymore.Never true09/14/2024 Within the past 12 months, the food you bought just didn't last and you didn't have money to get more.Never true09/14/2024PRAPARE - TransportationAnswerDate RecordedIn the past 12 months, has lack of transportation kept you from medical appointments or from getting medications?No09/14/2024In the past 12 months, has lack of transportation kept you from meetings, work, or from getting things needed for daily living?No09/14/2024Housing Stability Vital SignAnswerDate RecordedIn the last 12 months, was there a time when you were not able to pay the mortgage or rent on time?No09/14/2024Number of Times Moved in the Last Year Not on file09/14/2024t any time in the past 12 months, were you homeless or living in a care home (including now)?No09/14/2024CommentsUnknownSex and Gender InformationValueDate RecordedSex Assigned at BirthNot on fileLegal Sex Hprfgf6111/22/2022 7:35 PM EDTGender IdentityNot on fileSexual OrientationNot on filedocumented as of this encounter Last Filed Vital Signs Vital SignReadingTime TakenCommentsBlood Pressure--Pulse--Temperature-- Respiratory Rate--Oxygen Saturation--Inhaled Oxygen Concentration--Qtvlwx79.2 kg (190 lb)07/29/2025 1:07 PM SVSBecgex596.5 cm (5' 2 )07/29/2025 1:07 PM ESTBody Mass Index34.7507/29/2025 1:07 PM ESTdocumented in this encounter Patient Instructions * Patient Instructions* Aiden Maria DPM - 07/29/2025 1:15 PM EST Topical care measures as noted documented in this encounter Progress Notes * Aiden Maria DPM - 07/29/2025 1:15 PM EST Images from the original note were not included. Subjective Patient ID: Marita Messina is a 40 y.o. female who presents for Fungal nail FUV (Marita Messina is a 39 y.o. female. Established patient presents today for 3 month fungal nail fuv. Patient relates no change, she has stopped Formula 7, 2 weeks ago when she ran out. Patient continues to use listerine daily. ). HPI Follow-up assessment: Onychodystrophy/mycosis multiple digits. Patient reports perhaps slight improvement with topical care measures; with the exception of the right great toe. Reports good compliance with topical care measures. Recently underwent liver biopsy based on abnormal enzyme levels. Medications Current Outpatient Medications: albuterol HFA 90 mcg/act inhaler, Inhale 2 puffs every 6 (six) hours if needed for wheezing, Disp: 18 g, Rfl: 0 budesonide-formoterol (Symbicort) 160-4.5 MCG/ACT inhaler, Inhale 2 puffs in the morning and 2 puffs before bedtime., Disp: 32.4 g, Rfl: 1 busPIRone (Buspar) 30 MG tablet, Take 1 tablet by mouth in the morning and 1 tablet before bedtime.(Patient taking differently: Take 1 tablet by mouth in the morning and 1 tablet before bedtime. 15 mg twice a day.), Disp: , Rfl: cyclobenzaprine (Flexeril) 10 MG tablet, Take 1 tablet by mouth as needed in the morning and 1 tablet as needed in the evening., Disp: , Rfl: FLUoxetine (PROzac) 40 MG capsule, Take 1 capsule by mouth in the morning., Disp: , Rfl: fluticasone (Flonase) 50 MCG/ACT nasal spray, Administer 1 spray into each nostril Daily Shake gently. Before first use, prime pump. After use, clean tip and replace cap., Disp: 48 g, Rfl: 0 gabapentin (Neurontin) 300 MG capsule, Take 300 mg by mouth in the morning and 300 mg before bedtime. (Patient taking differently: Take 600 mg by mouth in the morning and 600 mg before bedtime.), Disp: , Rfl: hydrOXYzine pamoate (Vistaril) 50 MG capsule, 50 mg as needed in the morning and 50 mg as needed inthe evening. (Patient not taking: Reported on 06/26/2025), Disp: , Rfl: LORazepam (Ativan) 0.5 MG tablet, Take 1 tablet by mouth every 6 (six) hours if needed (Patient nottaking: Reported on 06/26/2025), Disp: , Rfl: [place]-3 Fatty Acids (FISH OIL OMEGA-3 PO), Take 2 g by mouth in the morning and 2 g before bedtime.2 g 2 tab bid. . (Patient not taking: Reported on 06/26/2025), Disp: , Rfl: omeprazole (PriLOSEC) [address] capsule, Take 1 capsule (20 mg) by mouth in the morning. Take beforemeals. Do not crush or chew., Disp: 90 capsule, Rfl: 0 ondansetron ODT (Zofran-ODT) 4 MG disintegrating tablet, 4 mg every 8 (eight) hours if needed, Disp: , Rfl: propranolol (Inderal) 20 MG tablet, TAKE 1 TABLET BY MOUTH IN THE MORNING AND 1 TABLET BEFORE BEDTIME, Disp: 180 tablet, Rfl: 1 Repatha SureClick 140 MG/ML injection, Inject 140 mg under the skin every 14 (fourteen) days, Disp:, Rfl: rizatriptan (Maxalt) 5 MG tablet, 5 mg 1 (one) time if needed, Disp: , Rfl: Tirzepatide-Weight Management (Zepbound) 10 MG/0.5ML solution, Inject 10 mg under the skin 1 (one) time per week, Disp: 2 mL, Rfl: 1 traZODone (Desyrel) 50 MG tablet, Take 50 mg by mouth at bedtime (Patient not taking: Reported on 06/26/2025), Disp: , Rfl: Vraylar 6 MG capsule, Take 1 capsule by mouth in the morning., Disp: , Rfl: Allergies Hydrocodone-acetaminophen Past Surgical History Past Surgical History: Procedure Laterality Date CT ANGIOGRAM HEART CORONARY 03/23/2024 CT ANGIOGRAM TAVR 03/23/2024 HYSTERECTOMY INGUINAL HERNIA REPAIR IR INJECTION cervical LASER ABLATION 12/22/2024 ablation to the neck PARTIAL HYSTERECTOMY TUMOR REMOVAL left thumb. UMBILICAL HERNIA REPAIR WISDOM TOOTH EXTRACTION Family History Family History Problem Relation Name Age of Onset Hyperlipidemia Father rikki Messina Diabetes Father rikki Messina Objective General assessment: Alert and oriented. Pleasant disposition. Vascular: DP 2/4 bilateral. PT 2/4 bilateral. [...] DSO deformity of the medial and lateral margins; with interval proximal nail plate clearing beyond the lunula areas. Distal subungual keratotic and mycotic debris. Multiple lesser digits: Toenail discoloration, mild dystrophy and clinical mycosis. Orthopedic: Range of motion: Passive ankle dorsiflexion is limited, consistent with mild gastrocnemius equinus.Otherwise maintains functional ankle, subtalar and 1st MTP joint range of motion. Lesion pattern: No forefoot or digital discrete keratotic lesions are noted. Radiology: Assessment/Plan 1. Symptomatic onychodystrophy/mycosis bilateral great toes. No distinct response or improvement with topical care measures to date. 2. Tinea dermatitis bilateral by history; effectively resolved with Lotrisone therapy. 3. Fatty liver by history. 4. Most recent hepatic enzymes elevated. 5. Recent liver biopsy demonstrates 30% vesicular steatosis. Plan: Review of clinical findings, etiology and contributing/aggravating factors, response to date,treatment strategy, rationale and objectives. Oral terbinafine therapy not recommended based on recent liver biopsy. Continue topical care measures: Formula 7; preceded by use of vinegar and/or Listerine as directed;advised as to limited efficacy. Continue Lotrisone once daily as needed. Follow up: 3-4 months recommended. Procedure: Toenail debridement: Aseptic technique: Hand and power instrumentation: Onychodebridement in length and thickness, with curettage of any cryptotic margins, all periungual debris; providingeffective symptom and pressure relief; reducing shoe and digital trauma; reducing fungal reservoir. This note was created with the assistance of a speech recognition program. While intending to generate a timely document that accurately reflects the content of the visit, no guarantee can be provided that every grammatical or spelling mistake has been or will be identified or corrected. Thank you for your understanding. Aiden Maria DPM documented in this encounter Plan of Treatment DateTypeDepartmentCare Team (Latest Contact Info)Ijzjmmwvroa29/19/2026 1:15 PM ESTOffice Visit [facility] [address] [place] [phone] Aiden Maria DPM [address] [place], [place] [id number] documented as of this encounter Visit Diagnoses Diagnosis Dermatophytosis of nail- Primary Dystrophic nail Other specified disease of nail Pain around toenail, right foot Pain around toenail, left foot documented in this encounter Additional Health Concerns AssessmentNoted TimePQ-9 Depression Total Score: 101 1:35 PM EDT documented as of this encounter Care Teams Team MemberRelationshipSpecialtyStart DateEnd Date Jo-Ann Carlson MD [address] [place] [address] PCP - GeneralFamily Medicine05/09/24 Jo-Ann Carlson MD [address] [place] [place] [address] PCP - [employer]09/10/24 Dorcas Peralta NP [address] [place] [place] [address] Nurse PractitionerFamily Medicine02/06/25documented as of this encounter
--- OUTSIDE RECORDS SUMMARY | 2025-08-05 06:04 | XMS_ITS | Continuity of Care Document ---
Author Organization [facility] Address [address] [place] [address] Phone Care Team Providers Care Hospital Laboratory Technician Name Role Phone Jo-Ann Cuevas MD Primary Care Pr ovider Woodrow Valentino APRN Attending Provider Fibroscan, Temporary Other Provider Unavailable Woodrow Valentino APRN Referring Provider Tico Amador MD Attending Provider Care Teams Patient Care Team Team Status: [...] Tico Amador MDAttending ProviderActiveStart: June 10, 2025 Visit Care Team Team Status: Inactive Member Role/Relationship Status Dates Jo-Ann Carlson MD Primary Care Provider Active Start: July 222024 End: July 22, 2025Nathaniel Webster ProviderActiveStart: July 22, 2025 End: July 22, 2025 Patient Care Team Team Status: Inactive Member Role/Relationship Status Dates Jo-Ann Carlson MD Primary Care Provider Active Start: August 052024 End: August 05, 2025Nathaniel Webster ProviderActiveStart: August 05, 2025 End: August 05, 2025 Chief Complaint and Reason for Visit Chief Complaint Admit Date Referred by Jo-Ann Carlson: fatty liver May 27, 2025 8:35am fatty liver June 10, 2025 8: 49am K76.0 July 22, 2025 8:02am F/U to liver biopsy August 05, 2025 10:22am Reason for Visit Admit Date Elevated LFTs May 27, 2025 8:35am Fatty liver May 27, 2025 8:35am Hyperlipidemia May 27, 2025 8:35am Obesity (BMI 30-39.9) May 27 8:35am Fatty liver July 22, 2025 8:02am Hyperlipidemia July 22, 2025 8:02am Allergies, Adverse Reactions, Alerts Allergen Type Severity Reaction Last Updated Verified Status hydrocodone Allergy Unknown hives August 05, 2025 10:49am Yes Active Social History Smoking Status Status Start Date End Date Date of Observa tion Smokes tobacco daily (finding) July 22, 2025 2:12pm Observation Status Observation Response Date of Response Legal Sex Female (finding) [facility] Family History Relationship Condition Age at Onset Recorded Date/T kwadwo father Diabetes mellitus Unknown HypertensionUnknownDepressionUnknownFamily history of mental disorderUnknown Problems Active Problems Problem Diagnosis/Recorded Date Onset Date Stat us Bipolar 1 disorder, depressed May 27, 2025 [...] 12:00amComplies with drug therapyFluoxetine 40 mg capsule Bmvaab74MXKGMnamcAdxvcekxm 16th, 2025 11:00pmComplies with drug therapy Cyclobenzaprine 10 mg jwwvrtRameze40NLAFWbstn times dailySe2024 11:00pmComplies with drug therapyGabapentin 600 mg qurwoyBbbrbo588IXTMGclpc dailySe2024 11:00pmComplies with drug therapyBuspirone 30 mg duqqsiSuypns53TPPNKvyrf dailySept2024 11:00pmComplies with drug therapyOmeprazole 20 mg capsule,delayed release(DR/EC)Mzubkg98PQWRIvejbAndeeaxmo 16th, 2025 11:00pmComplies with drug therapyPropranolol 20 mg fxvzihGxttnt97ELSL OnceSept2024 11:00pmComplies with drug therapyFluticasone Propionate 50 mcg/actuation spray,suspensionActiveINTRANASALMay 26, 2025 11:00pm Complies with drug therapyBudesonide-Formoterol (Symbicort) 160-4.5 mcg/actuation HFA aerosol avhymczMeujxyykolam5FFJMRPWBFFBRVJgfbr dailyMay 26, 2025 11:00pmSe2024 7:52amBudesonide-Formoterol 160-4.5 mcg/actuation HFA aerosol inhalerActiveINHALATIONSept2024 11:00pm Complies with drug therapyEvolocumab (Repatha Sureclick) 140 mg/mL pen injector ActiveMGSUBCUTSept2024 11:00pmComplies with drug therapyCariprazine (Vraylar) 6 mg kwkfmocKqgshu5QIMMJhhpjWpizqqmdf 16th, 2025 11:00pmComplies with drug therapyTirzepatide (Weight Loss) (Zepbound) 12.5 mg/0.5 mL pen injector DiscontinuedMGSUBCUTSept2024 11:00pmJuly 22, 2025 8:26am Procedures Procedure Date Performed Status US needle biopsy July 22, 2025 8:09am comp leted Relevant Diagnostic Tests and/or Laboratory Data Laboratory Results Test Collection Date/Time Result Date/Time Result Interpretation Reference Range Result Comment Performing Site Platelet Count July 22, 2025 8:20am July 8:36am 276 10*3/uL 150-450[facility] [id number] [address] [place] [address]Niocgzxgzfe TimeJuly 22, 2025 8:20amNoveer 2024 8:40am10.9 s9.0-12.9A hematocrit value greater than 55% may lead to inaccurate results in coagulation testing. Patientshaving hematocrit values >55% require a special collection tube for coagulation studies. Please contact the laboratory at [phone] for redraw instructions.[facility] [id number] [address] [place] [address]Iyounwsdv Time International RatioN2024 8:20am July 22, 2025 [...] patients with mechanical heart valves: 3 - 4.5FMercy [facility] [id number] [address] [place] [address] Diagnostic Imaging Reports Author Anuj Kenny [facility] HospitalAuthoredJuly 22, 2025 2:08pmReport Dictated Date/TimeDictated ByStatusRadiology ReportJuly 22, 2025 2:08pm Pedrito JoySUM[facility] Main [address] [address] Ultrasound Report Signed Patient: Marita Messina MR# : [id number] : 1985 Acct:[id number] Age/Sex: 40 / F ADM Date: 5 Loc: Room: Type: [facility] Attending Dr: Woodrow Valentino APRN Ordering Provider: Woodrow Valentino APRN Date of Service: 07/22/25 US/US needle biopsy: K76.0 - Fatty (change of) liver, not elsewhere classified Copies to: Woodrow Valentino APRN~ Ultrasound-guided Random Liver Biopsy HISTORY: Concern for [...] Kenny M.D. 07/22/2025 2:13 PM Dictation Location: [place] [address] Tech: Lucia Ricarda Transcribed By: DAY 07/22/25 1413 Dictated By: Anuj Kenny DO 07/22/25 1408 Signed By: <Electronically signed by Anuj Kenny DO in OV> 07/22/25 1413 Vital Signs Vital Reading Result Reference Range Collection Date/Time Height 62 [in_i] May 27, 2025 7:68yuMstmts41.99 kgSept2024 7:45amHeart Rate90 /uiy33-767Jkbglnspq 17th, 2025 7:45amBP Koogeifp681 mm[Hg]100-140Sept2024 7:45amBP Sdmbaumzl04 mm[Hg]60-100Sept2024 7:45amBMI (Body Mass Index)35.4 kg/p3Djvrsaktf2024 7:51xiXvtlyf30 [in_i]July 22, 2025 8:85osMgddmy68.18 kgNov2024 8:24amHeart Rate76 /bgs97-828 July 22, 2025 10:40amRespiratory rate18 /aje33-74KjvbcfxkJuly 22, 2025 10:40amOxygen saturation by Pulse vuipptrz152 %95-100July 22, 2025 10:40am BP Jwqofwht840 mm[Hg]100-140July 22, 2025 10:40amBP Yxobqxxde38 mm[Hg] 60-100July 22, 2025 10:40am Advance Directives Advance Directive Response Recorded Date/ Time Advance Directives No May 10:27am Insurance Providers Guarantor Marita Jo Mayuri Address [address] [facility] [id number] Info.Home Phone: Coverage Status Update:2025 Payer Group Member ID Coverage Type Subscriber Relationship to Subscriber Effective Date Expiration Date Medicaid [id number] B Mayuri Id: [id number] [address] [address] Home Phone: Email: [email or web address] Medical Centeredicare Id: [id number] B Eckhardt Id: [id number] [address] [facility] [address] Home Phone: Email: [email or web address] Encounters Encounter Location(s) Arrival/Admit Date Discharge/Departure Date Discharge/Departure Disposition Provider(s) Departed Physician/ Provider Office Visit -[facility] May 27, 2025 8:35am May 27, 2025 9:16am Discharged to home care or self care (routine discharge) Woodrow Valentino APRN Non-patient / Non-visit -[facility] Octob er 2024 8:49am [facility], 2025 8:02amNovember 2024 10:57amDischarged to home care or self care (routine discharge)REVA Webstereparted Physician/[facility] 10:22amNovember 2024 11:03amDischarged to home care or self care (routine discharge)Woodrow Valentino APRN Recent Diagnosis Onset Date Admit Date Elevated LFTs Unknown May 27, 2025 8:35am Fatty liver Unknown May 27, 2025 8:35am Hyperlipidemia Unknown May 27, 2025 8:35am Obesity (BMI 30-39.9) Unknown May 27, 2025 8:35am Fatty liver Unknown July 22 8:02am Hyperlipidemia Unknown July 22 8:02am Assessments Diagnosis Onset Date Resolution Status Admit Date Elevated LFTs acuteSept2024 8:35amFatty liveracuteSept2024 8:35am HyperlipidemiaacuteSept2024 8:35amObesity (BMI 30-39.9)acute May 27, 2025 8:35amFatty liveracuteNov2024 8:02am HyperlipidemiaacuteNov2024 8:02am Plan of Treatment Author Wood[facility]ino [facility] 9:52am- Order labs to further workup potential [...] and imaging findings. Will move forward with Rezdiffra treatment if patient meets inclusion criteria. Future Tests Future scheduled test information is unavailable Pending Tests Pending diagnostic test information is unavailable Future Visits Future appointment information is unavailable Future Procedures Procedure Name Ordered Date Scheduled Date Discharge Order July 22, 2025 10:04am Nove nicolette 2024 10:04am Future Medications Future medication information is unavailable Patient Instructions Instruction Admit Date [facility] Liver Biopsy Disch arge Instructions [facility] 20[facility] 8:02am
--- OUTSIDE RECORDS SUMMARY | 2025-08-12 11:06 | XMS_ITS | Encounter Summary ---
Author Organization [facility] Address [address] [place] [address] Care Team Providers Care Product Safety Tester Name Role Phone Jo-Ann Carlson MD Primary Care Provider [phone] Jo-Ann Carlson MD Unavailable [phone] Dorcas Peralta NP Unavailable [phone] Encounter Details DateTypeDepartmentCare Team (Latest Contact Info)Rbsybhjmsfx84/19/2025Travel Social History Tobacco UseTypesPacks/DayYears UsedDateSmoking Tobacco: Every DaySmokeless Tobacco: Never Comments:Vapes daily Alcohol UseStandard Drinks/WeekCommentsYes3 (1 standard drink = 0.6 oz pure alcohol)caffeine intake: 12 oz coffee [id number] Health LiteracyAnswerDate RecordedHow often do you need [...] relatives?Once a week09/14/2024How often do you attend anabaptism or faith services?Never09/14/2024Do you belong to any clubs or organizations such as anabaptism groups, unions, fraternal or athletic groups, or school groups?No 09/14/2024How often do you attend meetings of the clubs or organizations you belong to?Never09/14/2024re you , , , , never , or living with a partner?Kjelazrg19/05/2025UDIT-CAnswerDate Recorded Q1: How often do you have [...] care, and heating?Somewhat hard09/14/2024PHQ-2AnswerDate RecordedPatient Health Questionnaire-2 Aybfp572Fin[facility] hospital [place] of Occupational Health - Occupational Stress QuestionnaireAnswerDate [...] were you homeless or living in a penitentiary (including now)?No09/14/2024CommentsUnknownSex and Gender InformationValueDate RecordedSex Assigned at BirthNot on fileLegal Sex Wgfize2111/22/2022 7:35 PM EDTGender IdentityNot on fileSexual OrientationNot on filedocumented as of this encounter Plan of Treatment DateTypeDepartmentCare Team (Latest Contact Info)Ieiyvmdksyc41/19/2026 1:15 PM ESTOffice Visit [facility] [address] [place] [phone] Aiden Maria DPM [address] [place] [address] documented as of this encounter Visit Diagnoses Not on filedocumented in this encounter Additional Health Concerns AssessmentNoted TimePHQ-9 Depression Total Score: 101 1:35 PM EDT documented as of this encounter Care Teams Team MemberRelationshipSpecialtyStart DateEnd Date Jo-Ann Carlson MD [address] [facility] [place] [address] PCP - GeneralFamily Medicine05/09/24 Jo-Ann Carlson MD [address] [facility] [place] [address] PCP - [employer]09/10/24 Dorcas Peralta NP [address] [facility] [facility] [place] [address] Nurse PractitionerFamily Medicine02/06/25documented as of this encounter
--- OUTSIDE RECORDS SUMMARY | 2025-08-12 11:06 | XMS_ITS | Encounter Summary ---
Author Organization [facility] Address [address] [place] [address] Care Team Providers Care Life Coach Name Role Phone Jo-Ann Carlson MD Primary Care Provider [phone] Jo-Ann Carlson MD Unavailable [phone] Dorcas Peralta NP Unavailable [phone] Encounter Details DateTypeDepartmentCare Team (Latest Contact Info)Qbweecgordp95/20/2025[address]stract [facility] [address] [place] [phone] Jo-Ann Carlson MD [address] [place] [address] Social History Tobacco UseTypesPacks/DayYears UsedDateSmoking Tobacco: Every DaySmokeless Tobacco: Never Comments:Vapes daily Alcohol UseStandard Drinks/WeekCommentsYes3 (1 standard drink = 0.6 oz pure alcohol)caffeine intake: 12 oz coffee [id number] Health LiteracyAnswerDate RecordedHow often do you need [...] relatives?Once a week09/14/2024How often do you attend hindu or christianity services?Never09/14/2024Do you belong to any clubs or organizations such as hindu groups, unions, fraternal or athletic groups, or school groups?No 09/14/2024How often do you attend meetings of the clubs or organizations you belong to?Never09/14/2024re you , , , , never , or living with a partner?Zgciicfv91/05/2025UDIT-CAnswerDate Recorded Q1: How often do you have [...] care, and heating?Somewhat hard09/14/2024PHQ-2AnswerDate RecordedPatient Health Questionnaire-2 Lkenq125Finogden regional medical center [place] of Occupational Health - Occupational Stress QuestionnaireAnswerDate [...] RecordedSex Assigned at BirthNot on fileLegal Sex Dbmxkj1511/22/2022 7:35 PM EDTGender IdentityNot on fileSexual OrientationNot on filedocumented as of this encounter Plan of Treatment DateTypeDepartmentCare Team (Latest Contact Info)Nwgcizknejf51/19/2026 1:15 PM ESTOffice Visit [facility] [address] [place] [address] Aiden Maria DPM [address] [place] [address] documented as of this encounter Visit Diagnoses Not on filedocumented in this encounter Additional Health Concerns AssessmentNoted TimePHQ-9 Depression Total Score: 101 1:35 PM EDT documented as of this encounter Care Teams Team MemberRelationshipSpecialtyStart DateEnd Date Jo-Ann Carlson MD [address] [place] [address] PCP - GeneralFamily Medicine05/09/24 Jo-Ann Carlson MD [address] [place] [address] PCP - [employer]09/10/24 Dorcas Peralta NP [address] [place] [address] Nurse PractitionerFamily Medicine02/06/25documented as of this encounter
--- OUTSIDE RECORDS SUMMARY | 2025-08-12 11:06 | XMS_ITS | Encounter Summary ---
Author Organization [facility] Address [address] [place] [address] Care Team Providers Care Health Sciences Program Coordinator Name Role Phone Jo-Ann Carlson MD Primary Care Provider [phone] Jo-Ann Carlson MD Unavailable [phone] Dorcas Peralta NP Unavailable [phone] Encounter Details DateTypeDepartmentCare Team (Latest Contact Info)Mejbgsoyfnw81/19/2025Bamboo flowsheet [facility] [address] [place] [phone] Aiden Maria DPM [address] [place], [place] [address] Social History Tobacco UseTypesPacks/DayYears UsedDateSmoking Tobacco: Every DaySmokeless Tobacco: Never Comments:Vapes daily Alcohol UseStandard Drinks/WeekCommentsYes3 (1 standard drink = 0.6 oz pure alcohol)caffeine intake: 12 oz coffee [id number] Health LiteracyAnswerDate RecordedHow often do you need [...] relatives?Once a week09/14/2024How often do you attend baptism or mu-ism services?Never09/14/2024Do you belong to any clubs or organizations such as baptism groups, unions, fraternal or athletic groups, or school groups?No 09/14/2024How often do you attend meetings of the clubs or organizations you belong to?Never09/14/2024re you , , , , never , or living with a partner?Ayuivtcl57/05/2025UDIT-CAnswerDate Recorded Q1: How often do you have [...] care, and heating?Somewhat hard09/14/2024PHQ-2AnswerDate RecordedPatient Health Questionnaire-2 Qfitq977Finjordan valley [facility] [place] of Occupational Health - Occupational Stress QuestionnaireAnswerDate [...] were you homeless or living in a fci (including now)?No09/14/2024CommentsUnknownSex and Gender InformationValueDate RecordedSex Assigned at BirthNot on fileLegal Sex Savxvg9111/22/2022 7:35 PM EDTGender IdentityNot on fileSexual OrientationNot on filedocumented as of this encounter Plan of Treatment DateTypeDepartmentCare Team (Latest Contact Info)Njxutdyxmcd36/19/2026 1:15 PM ESTOffice Visit [facility] [address] [place] [phone] Aiden Maria DPM [address] [place] [address] documented as of this encounter Visit Diagnoses Not on filedocumented in this encounter Additional Health Concerns AssessmentNoted TimePHQ-9 Depression Total Score: 101 1:35 PM EDT documented as of this encounter Care Teams Team MemberRelationshipSpecialtyStart DateEnd Jo-Ann Carlson MD [address] [facility] [place] [address] PCP - GeneralFamily Medicine05/09/24 Jo-Ann Carlson MD [address] [facility] [place] [address] PCP - [employer]09/10/24 Dorcas Peralta NP [address] [facility] [place] [address] Nurse PractitionerFamily Medicine02/06/25documented as of this encounter
--- OUTSIDE RECORDS SUMMARY | 2025-08-12 11:07 | XMS_ITS | Clinical Summary ---
Author Organization [facility] Address [address] [place] [address] Care Team Providers Care Cashier And Salesperson Name Role Phone Jo-Ann Carlson MD Primary Care Provider [phone] Jo-Ann Carlson MD Unavailable [phone] Dorcas Peralta NP Unavailable [phone] Allergies Active AllergyReactionsCriticalityNoted DateCommentsHydrocodone-Acetaminophen Hives10/09/2019 Vicodin [...] under the skin every 14 (fourteen) days06/10/2024ctive Bolivar-3 Fatty Acids (FISH OIL OMEGA-3 PO) Take [...] clean tip and replace cap. 48 g 5Active budesonide-formoterol (Symbicort) 160-4.5 MCG/ACT inhaler Indications:Moderate persistent [...] DAILY AT THE SAME TIME 90 capsule Discontinued(Reorder) Active Problems ProblemNoted DateDiagnosed DateFatty liver06/26/2025Elevated LFTs06/26/2025 Bipolar 1 disorder, suopvatxs53/17/2025Vapes nicotine containing substance 09/15/20247544Nwfvywgmvybmku12/02/2024 Assessment & Plan (05/08/2025 12:07 PM EDT): Orders: Lipid panel; Future Rgzxkzv5905/14/2024ipolar modplcuy84/04/2024 Assessment & Plan (05/08/2025 12:07 PM EDT): -stable managed by psych Dvkgemgadt44/04/3584Pgryhkwo87/04/2024 Assessment & Plan (05/08/2025 12:07 PM EDT): -stable with current regimen. Dkxsen7105/14/2024Other lyeicyr2802/23/2022besity, Class II, BMI 35-39.9002/23/2022 Assessment & Plan (05/08/2025 12:07 PM EDT): Orders: Comprehensive metabolic panel; Future Lipid panel; Future TSH W/REFLEX TO FT4; Future Tirzepatide-Weight Management (Zepbound) 12.5 MG/0.5ML solution auto-injector; Inject 12.5 mg underthe skin 1 (one) time per week -Down another 8 lbs since last visit, 27 lbs total. Increase zepbound. Encouraged healthy eating habits, increase physical exercise. Obstructive sleep apnea /16/2022 Assessment & Plan (05/08/2025 12:07 PM EDT): Orders: Tirzepatide-Weight Management (Zepbound) 12.5 MG/0.5ML solution auto-injector; Inject 12.5 mg underthe skin 1 (one) time per week - increase zepbound as she is tolerating it well. Txuixo7812/08/2020 Assessment & Plan (05/08/2025 12:07 PM EDT): Orders: budesonide-formoterol (Symbicort) 160-4.5 MCG/ACT inhaler; Inhale 2 puffs in the morning and 2 puffs before bedtime. albuterol HFA 90 mcg/act inhaler; Inhale 2 puffs every 6 (six) hours if needed for wheezing Gastroesophageal reflux disease without fxlhlwnzhma58/31/2021 Encounters DateTypeDepartmentCare UldmGjyeeowvyvt76/20/2025bstract [facility] [address] [place] [phone] Jo-Ann Carlson MD 07/29/2025 1:15 PM ESTOffice Visit [facility] [address] [place] [phone] Aiden Maria, DPTunde Dermatophytosis of nail (Primary Dx); Dystrophic nail; Pain around toenail, right foot; Pain around toenail, left foot07/29/2025amboo flowsheet [facility] [address] [place] [phone] Aiden Maria DPM 07/29/20259914Yqjgpc27/14/2025Refill [facility] [address] [place] [phone] Jo-Ann Carlson MD Gastroesophageal reflux disease without dlziertgkuo90/12/2025bstract [place] [address] [place] [phone] Jo-Ann Carlson MD 07/20/2025Telephone [place] [address] [place] [phone] Jo-Ann Carlson MD neurology ynqiigwo38/05/2025Orders Only [facility] [address] [place] [phone] Dorcas Peralta NP Transient neurological symptoms (Primary Dx); Dysarthria; BOGDAN (obstructive sleep apnea); Dmbmojjojqy34/28/2025 9:00 AM EDTAncillary Procedure [facility] [address] [place] [address] Dysarthria; Transient neurological iobrqlrs20/28/9499Jfgzls81/20/2025Results Follow-Up [facility] [address] [facility] [place] [phone] Dorcas Peralta NP Comprehensive metabolic panel, CBC and differential, Ferritin, Additional followed-up results: 1:30 PM EDTOffice Visit [facility] [address] [facility] [place] [phone] Dorcas Peralta NP Restless leg syndrome (Primary Dx); Dysarthria; Transient neurological hxijuoah61/17/2025amboo flowsheet [facility] [address] [facility] [place] [phone] Dorcas Peralta NP 06/26/20251210Jpdqwe54/12/2025Orders Only [facility] [address] [facility] [place] [phone] Jo-Ann Carlson MD Hepatic steatosis (Primary Dx)05/21/2025 8:30 AM EDTAncillary Procedure [facility] [address] [facility] [address] [place] [phone] Elevated liver enzymes; Hepatic antdmycde68/11/2025Results Follow-Up [facility] [address] [facility] [place] [phone] Jo-Ann Carlson MD LIVER05/21/2025Orders Only [facility] [address] [place] [phone] Mary Lou Mchugh NP Hepatic steatosis (Primary Dx)05/21/2025Travelfrom Last 3 Months Immunizations ImmunizationAdministration DatesNext KdfHCN1210/26/1987,02/17/1987,1986, 1986Hep B, Adolescent or Rrsglltfg53/15/1998,12/24/1997,11/19/1997 Influenza, injectable, MDCK, preservative free, byynucotmpbl17/03/2022Influenza, injectable, MDCK, ibrxdqvmqsww24/05/2023Influenza, injectable, quadrivalent 08/22/2019Influenza, injectable, quadrivalent, preservative free09/13/2021MMR 11/19/1997,10/26/1987OPV10/26/1987,02/17/1987,1986,1986Td (adult), kkeaxlecmfs10/16/1998 Family History Medical HistoryRelationNameCommentsDiabetesFatherdavid EckhardtHyperlipidemia Fatherdavid EckhardtRelationNameStatusCommentsFatherdavid EckhardtAliveMother Alive Social History Tobacco UseTypesPacks/DayYears UsedDateSmoking Tobacco: Every DaySmokeless Tobacco: Never Tobacco Cessation:Ready to Q uit: Not Asked; Counseling Given: Not Answered Comments:Vapes daily Alcohol UseStandard Drinks/WeekCommentsYes3 (1 standard drink = 0.6 oz pure alcohol)caffeine intake: 12 oz coffee ureqmH6326 Health LiteracyAnswerDate RecordedHow often do you need [...] week09/14/2024How often do you attend restorationism or synagogue services?Never09/14/2024Do you belong to any clubs or organizations such as restorationism groups, unions, fraternal or athletic groups, or school groups?No 09/14/2024How often do you attend meetings of the clubs or organizations you belong to?Never09/14/2024re you , , , , never , or living with a partner?Xvtrqhgr37/05/2025UDIT-CAnswerDate Recorded Q1: How often do you have [...] care, and heating?Somewhat hard09/14/2024PHQ-2AnswerDate RecordedPatient Health Questionnaire-2 Uyiew270[facility] Occup[facility] - Occupational Stress QuestionnaireAnswerDate [...] RecordedSex Assigned at BirthNot on fileLegal Sex Zgazsw8511/22/2022 7:35 PM EDTGender IdentityNot on fileSexual OrientationNot on file Last Filed Vital Signs Vital SignReadingTime TakenCommentsBlood Wuarkgld429/7210/ 1:36 PM EDT Jlgzp527906/26/2025 1:36 PM EDTTemperature--Respiratory Rate--Oxygen Geshxrewfu94% 06/26/2025 1:36 PM EDTInhaled Oxygen Concentration--Jnmsrq01.2 kg (190 lb) 07/29/2025 1:07 PM XXOWpgjwg742.5 cm (5' 2 )07/29/2025 1:07 PM ESTBody Mass Index34.7507/29/2025 1:07 PM EST Plan of Treatment DateTypeDepartmentCare Team (Latest Contact Info)Elnfolyholr47/19/2026 1:15 PM ESTOffice Visit [facility] [address] [place] [place] [address] Aiden Maria, DPM [address] [place] [address] Health MaintenanceDue DateLast DoneCommentsPneumococcal Vaccine: Pediatrics (0 to 5 Years) and At-Risk Patients (6 to 64 Years) (1 of 2 - PCV)2005Pap Smear2007Cervical Cancer Cjhtoxwkr94/07/2016HPV/Mtlnpo0007/17/2016COVID-19 Vaccine (2 - 2024- season)/Influenza Vaccine (#1)2026 05/15/2023, 07/13/2022, 09/13/2021, Additional history existsPostponed from 05/11/2025 (Patient Refused)Medicare Annual Wellness (AWV)6005/08/2025, 05/08/2025, 11/09/2023, Additional history exists Procedures Procedure NamePriorityDate/TimeAssociated DiagnosisCommentsMR BRAIN WO CONTRAST Msewyxj6007/07/2025 9:41 AM EDT Dysarthria Transient neurological symptoms VITAMIN N41Qtlssia85/17/2025 1:56 PM EDT Restless leg syndrome Dysarthria Transient neurological symptoms LYOBIUJUWOtaztjz53/17/2025 1:56 PM EDT Restless leg syndrome Dysarthria Transient neurological symptoms TSH W/REFLEX TO HP2Rpjjzmb76/17/2025 1:56 PM EDT Restless leg syndrome Dysarthria Transient neurological symptoms DZDBBYBEFgfowxf96/17/2025 1:56 PM EDT Restless leg syndrome Dysarthria Transient neurological symptoms CBC (INCLUDES DIFF/PLT)Wiuhpfo0306/26/2025 1:56 PM EDT Restless leg syndrome Dysarthria Transient neurological symptoms COMPREHENSIVE METABOLIC TJXDXOaorqyc31/17/2025 1:56 PM EDT Restless leg syndrome Dysarthria Transient neurological symptoms US QPLFXRwbtzei84/11/2025 9:01 AM EDT Elevated liver enzymes Hepatic steatosis from Last 3 Months Results * MR [...] BY: Stanley Morrow DO Authorizing ProviderResult TypeResult StatusSaraWashington County Hospital and [facility]ics MRI PROCEDURES Final Result * TSH W/REFLEX TO FT4 (06/26/2025 1:56 PM EDT)ComponentValueRef RangeTest Method Analysis TimePerformed AtPathologist SignatureTSH W/REFLEX TO FT41.07mIU/L QUESTComment: ?Reference Range ? > or = 20 Years 0.40-4.50 ? Ranges ?First trimester ?0.26-2.66 ?Second trimester ?? 0.55-2.73 ?Third trimester ?0.43-2.91 Specimen (Source)Anatomical Location / LateralityCollection Method / Volume Collection TimeReceived Time06/26/2025 1:56 PM EDT1 1:56 PM EDT Narrative Resulting Agency Comment Performing Organization Information ?Site ID: QPT ?Name: [facility] ?Address: [address] [place] [address], [address] [place] [phone] ?Director: Michael Dennis MD Authorizing ProviderResult TypeResult StatusSajefe Peralta NPLAB BLOOD ORDERABLES Final ResultPerforming OrganizationAddressCity/State/ZIP CodePhone Number QUEST * (ABNORMAL) CBC and differential (06/26/2025 1:56 PM EDT)ComponentValueRef RangeTest MethodAnalysis TimePerformed AtPathologist SignatureWHITE BLOOD CELL COUNT3.83.8 - 10.8 Thousand/uLQUESTRED BLOOD CELL COUNT5.063.80 - 5.10 Million/iGGATSXHLXUTNTFDI20.3(H)11.7 - 15.5 g/sNNVNBZDJOLIFGISP03.3(H)35.0 - 45.0 %QVRKFDAK42.580.0 - 100.0 lOWWCMTFNF91.227.0 - 33.0 zzRINGMEOAI71.732.0 - 36.0 g/dLQUESTComment: For adults, a slight decrease in the calculated MCHC value (in the range of 30 to 32 g/dL) is most likely not clinically significant; however, it should be interpreted with caution in correlation with other red cell parameters and the patient's clinical condition. RDW12.711.0 - 15.0 %QUESTPLATELET LNWPK194322 - 400 Thousand/oQARKZLWYZ42.57.5 - 12.5 fLQUESTABSOLUTE NEUTROPHILS2,3371,500 - 7,800 cells/uLQUESTABSOLUTE LYMPHOCYTES1,766019 - 3,900 cells/uLQUESTABSOLUTE CVBKUFGXT756981 - 950 cells/uL QUESTABSOLUTE PVQQJWACFZB7003 - 500 cells/uLQUESTABSOLUTE ZTCVIIEKQ413 - 200 cells/hHSXKJLPSRDAHHZFPW39.5%DEBOCFQZPMCMJUDV38.4%QUESTMONOCYTES7.4%QUEST EOSINOPHILS1.9%QUESTBASOPHILS0.8%QUESTSpecimen (Source)Anatomical Location / LateralityCollection Method / VolumeCollection TimeReceived TimeBloodVenous blood specimen / Cntckfb2506/26/2025 1:56 PM EDT1 1:56 PM EDT Narrative Resulting Agency Comment Performing Organization Information ?Site ID: QPT ?Name: [facility] ?Address: [address] [place] [address], [address] [place], [place] [phone] ?Director: Michael Dennis MD Authorizing ProviderResult TypeResult StatusSabarney children's medical center Kathryn NPLAB BLOOD ORDERABLES Final ResultPerforming OrganizationAddressCity/State/ZIP CodePhone Number QUEST * Magnesium (06/26/2025 1:56 PM EDT)ComponentValueRef RangeTest MethodAnalysis TimePerformed AtPathologist SignatureMAGNESIUM2.01.5 - 2.5 mg/dLQUESTSpecimen (Source)Anatomical Location / LateralityCollection Method / VolumeCollection TimeReceived TimeBloodVenous blood specimen / Pczlymy7606/26/2025 1:56 PM EDT 06/26/2025 1:56 PM EDT Narrative Resulting Agency Comment Performing Organization Information ?Site ID: QPT ?Name: [facility] ?Address: [address] [place] [address], [address] [place] [address] ?Director: Michael Dennis MD Authorizing ProviderResult TypeResult StatusSabarney children's medical center Emilianowhite [facility] NPLAB BLOOD ORDERABLES Final ResultPerforming OrganizationAddressCity/[facility]/ZIP CodePhone Number QUEST * Ferritin (06/26/2025 1:56 PM EDT)ComponentValueRef RangeTest MethodAnalysis TimePerformed AtPathologist UyuxvtrcuSMBXGOTG2088 - 154 ng/mLQUESTSpecimen (Source)Anatomical Location / LateralityCollection Method / VolumeCollection TimeReceived TimeBloodVenous blood specimen / Gxmjahm3706/26/2025 1:56 PM EDT 06/26/2025 1:56 PM EDT Narrative Resulting Agency Comment Performing Organization Information ?Site ID: QPT ?Name: [facility] ?Address: [address] [place] [address], [address] [place] [address] ?Director: Michael Dennis MD Authorizing ProviderResult TypeResult StatusSara Emilianofer NPLAB BLOOD ORDERABLES Final ResultPerforming OrganizationAddressCity/State/ZIP CodePhone Number QUEST * Vitamin B12 (06/26/2025 1:56 PM EDT)ComponentValueRef RangeTest MethodAnalysis TimePerformed AtPathologist SignatureVITAMIN [id number] - 1,100 pg/mLQUEST Comment: Please Note: Although [...] Volume Collection TimeReceived TimeBloodVenous blood specimen / Jtxzdms1906/26/2025 1:56 PM EDT1 1:56 PM EDT Narrative Resulting Agency Comment Performing Organization Information ?Site ID: QPT ?Name: [facility] ?Address: [address] [place] [address], [address] [place] [phone] ?Director: Michael Dennis MD Authorizing ProviderResult TypeResult StatusSalety Peralta [facility] BLOOD ORDERABLES Final ResultPerforming OrganizationAddressCity/State/ZIP CodePhone Number QUEST * (ABNORMAL) Comprehensive metabolic panel (06/26/2025 1:56 PM EDT)Component ValueRef RangeTest MethodAnalysis TimePerformed AtPathologist SignatureGlucose 9065 - 99 mg/dLQUESTComment: ? Fasting reference interval BUN87 - 25 mg/dLQUESTCreatinine0.860.50 - 0.97 mg/zLXFUXYSLDS56> OR = 60 mL/min/1.64c6WUCMGEWH/CREATININE RATIOSEE NOTE: - (calc)QUESTComment: ?? Not Reported: BUN and Creatinine are within ?? reference range. ? Ifgqzv693188 - 146 mmol/LQUESTPotassium, Bld4.13.5 - 5.3 mmol/AEWJPBUiygtdhw899 98 - 110 mmol/LQUESTCarbon Qorsxhr9228 - 32 mmol/LQUESTCalcium9.78.6 - 10.2 mg/dLQUESTPROTEIN, TOTAL6.86.1 - 8.1 g/dLQUESTALBUMIN4.93.6 - 5.1 g/dLQUEST GLOBULIN1.91.9 - 3.7 g/dL (calc)QUESTALBUMIN/GLOBULIN RATIO2.6(H)1.0 - 2.5 (calc)QUESTBILIRUBIN, TOTAL1.00.2 - 1.2 mg/dLQUESTALKALINE JGXAEVGGPTE6813 - 125 U/JWOOZPFZR77(H)10 - 30 U/OZEIZZLNN66(H)6 - 29 U/LQUESTSpecimen (Source) Anatomical Location / LateralityCollection Method / VolumeCollection Time Received TimeBloodVenous blood specimen / Rkdmied0606/26/2025 1:56 PM EDT 06/26/2025 1:56 PM EDT Narrative Resulting Agency Comment Performing Organization Information ?Site ID: QPT ?Name: [facility] ?Address: [address] [place] [address], [address] [place] [phone] ?Director: Michael Dennis MD Authorizing ProviderResult TypeResult StatusSara Kathryn NPLAB BLOOD ORDERABLES Final ResultPerforming OrganizationAddressCity/State/ZIP CodePhone [...] BY: Major Gutierrez MD Authorizing ProviderResult TypeResult StatusSabarney children's medical center Kathryn NPIM US PROCEDURES Final Result from Last 3 Months Insurance Care Teams Team MemberRelationshipSpecialtyStart Date Jo-Ann Carlson MD [address] [facility] [place] [address] PCP - GeneralFamily Medicine05/09/24 Jo-Ann Carlson MD [address] [facility] [address] PCP - [employer]09/10/24 Dorcas Peralta NP [address] [facility] [place] [address] Nurse PractitionerNewton[facility]Wellesley [facility] Medicine02/06/25
--- OUTSIDE RECORDS SUMMARY | 2025-08-12 11:11 | XMS_ITS | CCD ---
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 Name Role Phone BRADLEY SIMMONS Referring Unavailable [...] Gerard CLEMONS, Jo-Ann Yadav Primary Care Provider [phone] Kathryn BULLOCK, Dorcas Unavailable Malina CLEMONS, Sana Doyle Attending Unavailable Kyara CLEMONS, [facility] Ness vailable Weihrauch PA-C, Dorcas Stewart Attending Christian Sparrow MD, [facility] Ness vailable Weihrauch PA-C, Dorcas Stewart Attending Christian Sparrow MD, [facility] Ness vailable Weihrauch PA-C, Dorcas Stewart Attending Christian Sparrow MD, [facility] Ness vailable Malina CLEMONS, Sana Doyle Attending Unavailable Kyara CLEMONS, [facility] Ness vailable Malina CLEMONS, Sana Doyle Attending Unavailable Kyara CLEMONS, [facility] Ness vailable Kyara CLEMONS, [facility] Ness vailable Malina CLEMONS, Sana Doyle Attending Unavailable Malina CLEMONS, Sana Doyle Attending Unavailable Kyara CLEMONS, [facility] Ness vailable Ty Gee MD, Jo-Ann Mazariegos Primary Care Pr ovider Woodrow Valentino APRN Attending Provider [phone] Fibroscan, Temporary Attending Provider Unavaila ble Grohe [employer] CAPTAIN, Woodrow A Referring Provider [phone] LAQUITA SHARIF Attending Unavailable LAQUITA SHARIF Referring [...] ovider Groradha LORENZO, Woodrow Freitas Attending Provider [phone] Fibroscan, Temporary Other Provider Unavailable Chicho LORENZO, Woodrow A Referring Provider [phone] Tico Amador MD Attending Provider Allergies Allergy ClassificationReported Allergen(s)Allergy TypeDate of OnsetReaction(s) Facility (20 sources)Acetaminophen / HYDROcodone; Translations: [HYDROCODONE-ACETAMINOPHEN]Drug [id number] [place] [place] (9 sources)Acetaminophen / HYDROcodone; Translations: [Vicodin]Drug Allergy 69[facility]15[facility]113[facility] ([facility])Acetaminophen; Translations: [acetaminophen]Drug Lqpidrc73-34-9686 [facility] (3 sources)HYDROcodone; Translations: [hydrocodone]Drug Ozljydj12-25-9466kfvom [facility] Medications Current Medications MedicationDrug Class(es)DatesSig (Normalized)Sig (Original)Aimovig 140 MG/ML (6 sources)inject 140 mg by subcutaneous injection every monthAimovig 140 MG/ML as directed Subcutaneous monthly [id number] 200 actuat albuterol 0.09 mg/actuat metered dose inhaler (20 sources)beta2-Adrenergic AgonistStart: 95-48-9909iyps 2 puff(s) by inhalation every six hours [...] hours as needed for wheezing. Active End: 92-79-7509hnxfzlxfo HFA 90 mcg/act inhaler 05/08/2025 Discontinued (Reorder)take [...] tablet by mouth at bedtime for 30 Oiftya592 actuat budesonide 0.16 mg/actuat / formoterol fumarate 0.0045 mg/actuat metered dose inhaler (20 sources)Corticosteroid, beta2-Adrenergic AgonistStart: 43-23-0450Ztqdx: 05-27-2025 End: 14-57-1595Toccqqpzby-Formoterol (Symbicort) 160-4.5 mcg/actuation HFA aerosol inhaler Discontinued 1 INH INHALATION Twice daily May 26, 2025 11:00pm May 27, 2025 7:52amStart: 63-18-1424xtww 2 puff(s) by inhalation in the morningbudesonide-formoterol (Symbicort) 160-4.5 MCG/ACT inhaler Indications: Moderate persistent asthma without complication (HCC) Inhale 2 puffs in the morning and 2 puffs before bedtime. 32.4 g 1 05/08/2025 Active End: 24-02-4386amny 2 puff(s) by inhalation in the morningbudesonide-formoterol [...] hydrochloride 30 mg oral tablet (20 sources)Start: 78-07-0321mjhi 1 tablet by mouth twice dailyBuspirone 30 mg tablet Active 30 MG PO Twice daily May 26, 2025 11:00pm Complies with drug therapycariprazine 6 mg oral capsule (20 sources)Atypical AntipsychoticStart: 37-25-9769velw 1 capsule by mouth once dailyCariprazine (Vraylar) 6 mg capsule Active 6 MG PO Daily May 26, 2025 11:00pm Complies with drug therapytake 1 capsule by mouth in the morning cariprazine (VRAYLAR) 4.5 mg capsule Take 1 capsule (4.5 mg total) by mouth in the morning. Activecyclobenzaprine hydrochloride 10 mg oral tablet (20 sources)Muscle RelaxantStart: 70-55-1187yusm 1 tablet by mouth three times dailyCyclobenzaprine [...] oral tablet (10 sources)Tetracycline-class DrugStart: 05-23-2024 End: 70-45-0303mdjxvbxmssm (Vibra-Tabs) 100 MG tablet Indications: Folliculitis Take [...] 140 mg/ml auto-injector (20 sources)Start: 10-25-2022 End: 54-04-8963zgyvzu 140 mg by subcutaneous injection every montherenumab-aooe (AIMOVIG AUTOINJECTOR) 140 mg/mL auto-injector Indications: Intractable migraine without aura and without status migrainosus INJECT 140 MG SUBCUTANEOUSLY ONCE EVERY MONTH. 3 mL 3 10/25/2022 10/25/2023 ActiveStart: 05-30-2021 End: 84-26-6597xxrvwx 140 mg by subcutaneous injection every montherenumab-aooe (AIMOVIG AUTOINJECTOR) 140 mg/mL auto-injector Indications: Intractable migraine without aura and without status migrainosus INJECT 140 MG SUBCUTANEOUSLY ONCE EVERY MONTH. 3 mL 3 05/30/2021 05/30/2022 ActiveStart: 41-93-6426STZHKUW AUTOINJECTOR 140 mg/mL auto-injector every 30 (thirty) days. 02/05/2020 Active End: 64-88-2402rbueizjl (Aimovig) 140 MG/ML injection Inject 140 mg under the skin every 28 (twenty-eight) days 06/26/2025 Discontinued (Therapy completed) Comment on above:INJECT 140 MG SUBCUTANEOUSLY ONCE EVERY MONTH.Erenumab-aooe (AIMOVIG SC) (1 source)1 ml evolocumab 140 mg/ml auto-injector (20 sources)PCSK9 InhibitorStart: 11-57-3902Vlzdg: 06-10-2024 End: 27-93-9179Ryaxvze SureClick 140 MG/ML injection Inject 140 mg under the skin every 14 (fourteen) days 06/10/2024 ActiveFLUoxetine 40 mg oral capsule (20 sources)Serotonin Reuptake InhibitorStart: 78-36-3166ntps 1 capsule by mouth every twenty-four hoursFLUoxetine HCl 10 MG 1 capsule Orally Once a day for 30 day(s) 40 mg in am and 10 mg at noon Dec, ActiveStart: 02-94-8785olvn 1 capsule by mouth once dailyFluoxetine 40 mg capsule Active 40 MG PO Daily May 26, 2025 11:00pm Complies with drug therapyComment on above:Take 40 mg by mouth once daily.fluticasone propionate 0.05 mg/actuat metered dose nasal spray (15 sources)CorticosteroidStart: 05-08-2025 End: 94-22-2091jakqcanfih 600 mg oral tablet (20 sources)Anti-epileptic AgentStart: 16-67-0001adim 1 tablet by mouth twice dailyGabapentin 600 mg tablet Active 600 MG PO Twice daily May 26, 2025 11:00pm Complies with drug therapyStart: 01-53-8421tfnu 1 capsule by mouth in the morninggabapentin (Neurontin) 300 MG capsule Take 300 mg by mouth in the morning and 300 mg before bedtime. 05/09/2024 Active End: 49-51-8824rivu 1 capsule by mouth three times dailygabapentin (NEURONTIN) 300 mg capsule Take 1 capsule (300 mg total) by mouth 3 (three) times a day. 05/05/2024 Discontinued (Discontinued by another clinician)hydrOXYzine pamoate 50 mg oral capsule (20 sources)AntihistamineStart: 37-01-8628hbmtPLYddhw pamoate (Vistaril) 50 MG capsule 50 mg as needed in the morning and 50 mg as needed in the evening. 08/04/2024 ActivehydrOXYzine HCl 10 MG as directed Orally every 8 hrs for 30 days Activeketoconazole 20 mg/ml medicated shampoo (20 sources)Azole AntifungalStart: 05-26-2024 End: 51-64-6470vuhedlnmbzvg (NIZOral) 2 % shampoo Indications: Folliculitis Apply topically 2 (two) times a week 120 mL 05/26/2024 05/08/2025 Discontinued (Therapy completed)Start: 45-37-7385azfyoprsfmcg (NIZOral) 2 % shampoo Indications: Folliculitis Apply topically 2 (two) times a week 120 mL 05/26/2024 ActiveStart: 03-17-9754jzzrvuwoogrj (NIZOral) 2 % shampoo Indications: Folliculitis Apply topically 2 (two) times a week 120 mL 05/26/2024 ActiveStart: 05-22-2024 End: 89-34-9059Debdiqitzczc 1 % shampoo Indications: Dermatitis Apply 1 Application topically 2 (two) times a cuvw096 mL 1 05/22/2024 05/23/2024 DiscontinuedlamoTRIgine 100 mg oral tablet (10 sources)Mood Stabilizer, Anti-epileptic Agent End: 19-28-5094nenn 1 tablet by mouth in the morninglamoTRIgine (LaMICtal) 100 MG tablet Take 1 tablet by mouth in the morning. 06/16/2024 Discontinued levothyroxine sodium 0.075 mg oral tablet (1 source)l-Thyroxinetake 1 tablet by mouth once dailylevothyroxine (SYNTHROID) 75 MCG tablet Take 75 mcg by mouth Daily 0 ActiveLORazepam 0.5 mg oral tablet (20 sources)BenzodiazepineStart: 89-08-9064ydao 1 tablet by mouth every twenty- four hoursAtivan 0.5 MG 1 tablet at bedtime as needed Orally Once a day for 10 days f41.1 Oct, Active End: 68-32-6197cvhe 1 tablet by mouth every six hours [...] time(s) a day for 30 days Activeomega 6-gxj-jwm-fish oil (Fish OiL) 60-90-500 mg capsule (1 source)take 2 capsules by mouth in the morningomega 9-jjr-cdq-fish oil (Fish OiL) 60-90-500 mg capsule Take [...] release oral capsule (20 sources)Proton Pump InhibitorStart: 56-56-9422svuj 1 capsule by mouth once dailyOmeprazole 20 mg capsule,delayed release(DR/EC) Active 20 MG PO Daily May 26, 2025 11:00pm Complies with drug therapyStart: 00-31-9460iejs 1 capsule by mouth once dailyomeprazole (PriLOSEC) [address] capsule Indications: Gastroesophageal reflux disease without esophagitis TAKE 1 CAPSULE(20 MG) BY MOUTH 1 TIME EACH DAY AT THE SAME TIME 90 capsule 03/10/2025 ActiveStart: 05-26-2024 End: 88-54-6133arha 1 capsule by mouth once dailyomeprazole (PriLOSEC) [address] capsule Indications: Gastroesophageal reflux disease without esophagitis TAKE 1 CAPSULE(20 MG) BY MOUTH 1 TIME EACH DAY AT THE SAME TIME 90 capsule 12/18/2024 03/10/2025 DiscontinuedStart: 62-38-6082mqsrltsulc (PriLOSEC) 40 mg capsule 1 capsule (40 [...] disintegrating oral tablet (20 sources)Serotonin-3 Receptor AntagonistStart: 78-32-7280ggne 1 tablet by mouth every eight hours as needed for nauseaondansetron ODT (ZOFRAN ODT) 4 mg disintegrating tablet Dissolve 1 tablet (4 mg total) on tongue every 8 (eight) hours as needed for nausea for up to 10 doses. 10 tablet 01/31/2023 ActiveStart: 23-79-0660umda 1 tablet by mouth once dailyZofran ODT 4 MG 1 tablet on the tongue and allow to dissolve Orally Once a day for 30 day(s) May, Active predniSONE 20 mg oral tablet (2 sources)Start: 05-26-2024 End: 48-56-0671dkbo 1 tablet by mouth in the morningpredniSONE (Deltasone) 20 MG tablet Indications: Rash Take 1 tablet (20 mg) by mouth in the morningand 1 tablet (20 mg) before bedtime. Do all this for 5 days. 10 tablet 05/26/2024 05/31/2024 Activepropranolol hydrochloride 20 mg oral tablet (20 sources)beta-Adrenergic BlockerStart: 19-20-6302rljb 1 tablet by mouth once Propranolol 20 mg tablet Active 20 MG PO Once May 26, 2025 11:00pm Complies with drug therapyStart: 05-21-2019 End: 20-06-3614fssi 1 tablet by mouth in the morningpropranolol (Inderal) 20 MG tablet Indications: Tremor TAKE 1 TABLET BY MOUTH IN THE MORNING AND 1 TABLET BEFORE BEDTIME 180 tablet 1 03/28/2025 ActiveStart: 79-67-3118cowg 0.5 tablet by mouth in the morning, [...] MG/0.5ML solution auto-injector (11 sources)Start: 05-29-2024 End: 02-06-7005ljslat 0.5 mg by subcutaneous injection every weekSemaglutide- Weight Management (Wegovy) 0.5 MG/0.5ML solution auto-injector Indications: Obesity, Class II, BMI 35-39.9 Inject 0.5 mg under the skin 1 (one) time per week 6 mL 05/29/2024 06/16/2024 DiscontinuedStart: 04-54-2317huqjlx 0.5 mg by subcutaneous injection every weekSemaglutide-Weight Management (Wegovy) 0.5 MG/0.5ML solution auto-injector Indications: Obesity, Class II, BMI 35-39.9 Inject 0.5 mg under the skin 1 (one) time per week 6 mL 05/29/2024 ActiveStart: 05-14-2024 End: 92-25-9537xzlkit 0.5 mg by subcutaneous injection every weekSemaglutide- Weight Management (Wegovy) 0.5 MG/0.5ML solution auto-injector Indications: Obesity, Class II, BMI 35-39.9 Inject 0.5 mg under the skin 1 (one) time per week 6 mL 05/14/2024 05/29/2024 Discontinued (Reorder)Start: 37-13-2133agjnmb 0.5 mg by subcutaneous injection every weekSemaglutide-Weight Management (Wegovy) 0.5 MG/0.5ML solution auto-injector Indications: Obesity, Class II, BMI 35-39.9 Inject 0.5 mg under the skin 1 (one) time per week 6 mL 05/14/2024 ActiveTirzepatide (Mounjaro) 2.5 MG/0.5ML solution auto-injector (2 sources)Start: 40-14-3411dnuqzy 2.5 mg by subcutaneous injection every week Tirzepatide (Mounjaro) 2.5 MG/0.5ML solution auto-injector Indications: Morbid (severe) obesity dueto excess calories (CMS/HCC) , BOGDAN (obstructive sleep apnea) Inject 2.5 mg under the skin 1 (one) time per week 2 mL 1 09/15/2024 Active Tirzepatide (Weight Loss) (1 source)Start: 67-90-9874Qiozuaefdix (Weight Loss) (Zepbound) 10 mg/0.5 mL pen injector Active 10 MG SUBCUT every week July 22, 2025 12:00am Complies with drug therapyTirzepatide 2.5 MG/0.5ML solution auto-injector (6 sources)Start: 09-16-2024 End: 99-79-9320bpstox 2.5 mg by subcutaneous injection every weekTirzepatide 2.5 MG/0.5ML solution auto-injector Indications: Obstructive sleep apnea syndrome Inject 2.5 mg under the skin 1 (one) time per week 2 mL 1 09/16/2024 11/03/2024 Discontinued (Dose adjustment)Start: 32-75-1710iwodwk 2.5 mg by subcutaneous injection every weekTirzepatide [...] Management (Zepbound) 10 MG/0.5ML solution (2 sources)Start: 22-46-8630ypztwn 10 mg by subcutaneous injection every week Tirzepatide-Weight Management (Zepbound) 10 MG/0.5ML solution Indications: Obstructive sleep apnea syndrome , Obesity, Class II, BMI 35-39.9 Inject 10 mg under the skin 1 (one) time per week 2 mL 1 07/08/2025 ActiveTirzepatide-Weight Management (Zepbound) 10 MG/0.5ML solution auto-injector (7 sources)Start: 22-13-7757svryrb 10 mg by subcutaneous injection every week Tirzepatide-Weight Management (Zepbound) 10 MG/0.5ML solution auto-injector Indications: Obstructive sleep apnea syndrome , Obesity, Class II, BMI 35-39.9 Inject 10 mg under the skin 1 (one) time perweek 6 mL 02/06/2025 Active Tirzepatide-Weight Management (Zepbound) 12.5 MG/0.5ML solution auto-injector (11 sources)Start: 05-08-2025 End: 84-29-2192oohhtk 12.5 mg by subcutaneous injection every weekTirzepatide- Weight Management (Zepbound) 12.5 MG/0.5ML solution auto-injector Indications: Obstructive sleep apnea syndrome , Obesity, Class II, BMI 35-39.9 Inject 12.5 mg under the skin 1 (one) timeper week 6 mL 1 05/08/2025 07/08/2025 Discontinued (Dose adjustment)Start: 29-80-0939wdhswu 12.5 mg by subcutaneous injection every weekTirzepatide-Weight Management (Zepbound) 12.5 MG/0.5ML solution auto- injector Indications: Obstructive sleep apnea syndrome , Obesity, Class II, BMI 35-39.9 Inject 12.5 mg under the skin 1 (one) timeper week 6 mL 1 05/08/2025 ActiveTirzepatide-Weight Management (Zepbound) 2.5 MG/0.5ML solution auto-injector (5 sources)Start: 09-22-2024 End: 00-12-5948pvrbzt 2.5 mg by subcutaneous injection every weekTirzepatide- Weight Management (Zepbound) 2.5 MG/0.5ML solution auto-injector Indications: Obstructive sleep apnea syndrome Inject 2.5 mg under the skin 1 (one) time per week 2 mL 1 09/22/2024 11/03/2024 Discontinued (Therapy completed)Start: 78-90-2744neehfv 2.5 mg by subcutaneous injection every weekTirzepatide-Weight Management (Zepbound) 2.5 MG/0.5ML solution auto-injector Indications: Obstructive sleep apnea syndrome Inject 2.5 mg under the skin 1 (one) time per week 2 mL 1 09/22/2024 ActiveTirzepatide-Weight Management (Zepbound) 7.5 MG/0.5ML solution auto-injector (3 sources)Start: 01-30-2025 End: 35-22-4084wdqrqz 7.5 mg by subcutaneous injection every weekTirzepatide- Weight Management (Zepbound) 7.5 MG/0.5ML solution auto-injector Indications: Obstructive sleep apnea syndrome , Obesity, Class II, BMI 35-39.9 Inject 7.5 mg under the skin 1 (one) time per week 2 mL 01/30/2025 02/06/2025 Discontinued (Dose adjustment)Start: 54-96-5175cdjrjy 7.5 mg by subcutaneous injection every weekTirzepatide-Weight Management (Zepbound) 7.5 MG/0.5ML solution auto-injector Indications: Obstructive sleep apnea syndrome , Obesity, Class II, BMI 35-39.9 Inject 7.5 mg under the skin 1 (one) time per week 2 mL 01/30/2025 Active Tirzepatide-Weight Management 5 MG/0.5ML solution (1 source)Start: 26-33-0028mcjsra 5 mg by subcutaneous injection every week Tirzepatide-Weight Management 5 MG/0.5ML solution Indications: Obstructive sleep apnea syndrome Inject 5 mg under the skin 1 (one) time per week 2 mL 1 11/03/2024 ActiveTirzepatide-Weight Management 7.5 MG/0.5ML solution (1 source)Start: 07-63-3367ehchcx 7.5 mg by subcutaneous injection every week [...] MG/0.5ML solution auto-injector (3 sources)Start: 05-04-2025 End: 54-83-6622yotqyq 10 mg by subcutaneous injection every weekZepbound 10 MG/0.5ML solution auto-injector Indications: Obstructive sleep apnea syndrome , Obesity, Class II, BMI 35-39.9 ADMINISTER 10 MG UNDER THE SKIN 1 TIME EVERY WEEK 6 mL 05/04/2025 05/08/2025Discontinued (Dose adjustment)Start: 13-07-1313qqxcsi 10 mg by subcutaneous injection every weekZepbound 10 MG/0.5ML solution auto- injector Indications: Obstructive sleep apnea syndrome , Obesity, Class II, BMI 35-39.9 ADMINISTER 10 MG UNDER THE SKIN 1 TIME EVERY WEEK 6 mL 05/04/2025 Active Completed/Discontinued Medications MedicationDrug Class(es)DatesSig (Normalized)Sig (Original)acetaminophen 325 mg / oxyCODONE hydrochloride 5 mg oral tablet (7 sources)Opioid Agonist End: 70-98-1965xjii 1 tablet by mouth every twelve hours as needed for pain oxyCODONE-acetaminophen (PERCOCET) 5-325 mg per tablet Take 1 tablet by mouth every 12 (twelve) hours as needed for pain. 06/10/2025 Discontinued (Therapy completed)armodafinil 200 mg oral tablet (11 sources)Start: 10-25-2022 End: 72-37-1399rpzt 1 tablet by mouth once dailyarmodafinil (NUVIGIL) 200 mg tab Indications: Daytime sleepiness , Narcolepsy without cataplexy Take 1 tablet by mouth once daily for 90 days. 30 tablet 2 03/09/2023 ActiveStart: 05-25-2022 End: 80-07-7053xhep 1 tablet by mouth once dailyarmodafinil (NUVIGIL) 200 mg tab Indications: Daytime sleepiness , Narcolepsy without cataplexy Take 1 tablet by mouth once daily for 90 days. 30 tablet 2 05/25/2022 08/23/2022 ActiveStart: 10-20-2021 End: 71-56-0456eepa 1 tablet by mouth once dailyarmodafinil (NUVIGIL) 200 mg tab Indications: Daytime sleepiness , Narcolepsy without cataplexy Take 1 tablet by mouth once daily for 90 days. 30 tablet 2 10/20/2021 01/18/2022 ActiveComment on above:Take 1 tablet by mouth once daily for 90 days.baclofen 10 mg oral tablet (10 sources)gamma-Aminobutyric Acid-ergic AgonistStart: 94-87-7394kjce 1 tablet by mouth three times dailybaclofen [...] cream (20 sources)Azole Antifungal, CorticosteroidStart: 08-04-2024 End: 59-13-5980hvomekkzsyfl-betamethasone (Lotrisone) cream Indications: Tinea pedis of both feet , Chronic dermatitis of feet Apply twice daily as directed 45 g 1 08/04/2024 06/26/2025 Discontinued (Therapy completed)biotin 10 mg oral capsule (4 sources)Start: 09-06-0688Zocmnz 10,000 mcg cap12 hr buPROPion hydrochloride 150 mg extended release oral tablet (4 sources)AminoketoneStart: 36-30-6558poCYSExbl SR (ZYBAN SR; WELLBUTRIN SR) 150 mg 12 hr tabletlithium carbonate 450 mg extended release oral tablet (4 sources)Start: 14-13-5063tmzp 1 tablet by mouth twice dailylithium carbonate ER 450 mg CR tablet Take 450 mg by mouth twice daily. 0 11/20/2018 ActiveComment on above:Take 450 mg by mouth twice daily.methocarbamol 500 mg oral tablet (2 sources)Muscle Relaxant End: 95-28-8303skhgntjpobifG (ROBAXIN) 500 mg tablet Take 1 tablet (500 mg total) by mouth in the morning and 1 tablet (500 mg total) at noon and 1 tablet (500 mg total) in the evening. 05/05/2024 Discontinued (Discontinued by another clinician)omega 8-omq-xmd-fish oil (Fish OiL) 300-1,000 mg capsule (5 sources)Start: 06-10-2024 End: 71-24-7998bkmb 1 capsule by mouth in the morningomega 9-mmd-bfl-fish oil (Fish OiL) 300-1,000 mg capsule Take 2 g by mouth in the morning and 2 g before bedtime. 06/10/2024 06/10/2025 Discontinued (Patient Stopped On Own)Start: 84-05-3275ptbs 1 capsule by mouth in the morningomega 6-icz-vpj-fish oil (Fish OiL) 300-1,000 mg capsule Take 2 g by mouth in the morning and 2 g before bedtime. 06/10/2024 Activeperphenazine 2 mg oral tablet (5 sources)PhenothiazineStart: 53-65-8129cqrg 1 tablet by mouth twice daily perphenazine [...] 65-1 mg tablet (2 sources)Start: 02-23-2022 End: 44-07-3377vzmz 1 tablet by mouth in the morningprenatal vit 10-iron fum- folic 65-1 mg tablet Indications: Other fatigue , Obesity, Class II, BMI 35-39.9 Take 1 tablet by mouth in the morning. 90 tablet 3 02/23/2022 05/05/2024 Discontinued (Discontinued by another clinician)Start: 78-50-2008tyae 1 tablet by mouth in the morningprenatal vit 10-iron fum-folic 65-1 mg tablet Indications: Other fatigue , Obesity, Class II, BMI 35-39.9 Take 1 tablet by mouth in the morning. 90 tablet 3 02/23/2022 Activeprimidone 250 mg oral tablet (12 sources)Anti-epileptic AgentStart: 73-88-1348hszfxwcdj (MYSOLINE) 250 mg tablet Indications: Excessive physiologic tremor take 0.5 tablet every morning and 1 tablet every evening 45 tablet 5 10/25/2022 ActiveStart: 07-05-2021 End: 13-19-9280ldvouobyk (MYSOLINE) 250 mg tablet Indications: Excessive physiologic [...] eveningTirzepatide (Weight Loss) (3 sources)Start: 05-27-2025 End: 63-69-7975Xbwpruoicmw (Weight Loss) (Zepbound) 12.5 mg/0.5 mL pen injector Discontinued MG SUBCUT May 26, 2025 11:00pm July 22, 2025 8:26am Start: 17-61-1906Lxtll: 26-75-3817Bwrjzyhbjby (Weight Loss) (Zepbound) 12.5 mg/0.5 mL pen injector Active MG SUBCUT May 27, 2025 12:00am Complies with drug therapy Problems Active Problems Problem ClassificationProblemDateDocumented DateEpisodic/ChronicAllergic reactions (3 sources)Chronic dermatitis; Translations: [Dermatitis, unspecified]08-04-2024 EpisodicAnxiety disorders (20 sources)Anxiety; Translations: [Anxiety disorder, unspecified]Onset: 418406-06-5411GxsrzunUykvek (20 sources)Asthma; Translations: [Unspecified asthma, uncomplicated]Onset: 601988-02-7871OzurbjzPntm; stupor; and brain damage (3 sources)Daytime somnolence; Translations: [Somnolence]EpisodicDisorders of lipid metabolism (20 sources)Dyslipidemia; Translations: [Mixed hyperlipidemia]Onset: 06-11-2024 46-40-7812UgscudsDbgxlunaog disorders (20 sources)Gastroesophageal reflux disease without esophagitis; Translations: [Gastro-esophageal reflux disease without esophagitis]Onset: 12-08-2020 08-69-9580YkgiifqIklwteyy; including migraine (20 sources)Migraine; Translations: [Migraine, unspecified, not intractable, without status migrainosus]Onset: 321606-31-8685IqcugnjYzev disorders (20 sources)Bipolar disorder; Translations: [Bipolar disorder, unspecified] Onset: 977828-33-2680UyrdommSygnblz (8 sources)Tinea pedis; Translations: [Tinea pedis]40-76-1571ClculhtlYwihkyzicxy deficiencies (2 sources)Vitamin D deficiency; Translations: [Vitamin D deficiency, unspecified]46-20-1089DadntnkJbclt connective tissue disease (5 sources)Other muscle spasm; Translations: [OTHER MUSCLE SPASM]Onset: 74-14-6658VkpzokdbHextu connective tissue disease (12 sources)Pain in toe; Translations: [Pain in right toe(s)]46-01-5991Lpqjanfl Other connective tissue disease (6 sources)Transient neurological symptoms; Translations: [Other symptoms and signs involving the nervous system]63-70-4314BjevtecmCepac hereditary and degenerative nervous system conditions (2 sources)Restless legs; Translations: [Restless legs syndrome]06-26-2025 ChronicOther liver diseases (17 sources)Steatosis of liver; Translations: [Fatty (change of) liver, not elsewhere classified]Onset: 489004-02-3640YksfazkRdrlb liver diseases (1 source)Fatty (change of) liver, not elsewhere classified; Translations: [Fatty (change of) liver, not elsewhere classified]Onset: 44-54-0299CcdmtgkBmpgm liver diseases (3 sources)Elevated liver enzymes level; Translations: [Abnormal levels of other serum enzymes]67-36-3383EouaxqhmKhllt nervous system disorders (3 sources)Narcolepsy without cataplexy ; 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]ChronicOther nervous system disorders (20 sources)Narcolepsy; 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]Onset: 561445-60-0013BdtaabqIddio nervous system disorders (1 source)Enhanced physiological tremor; Translations: [Tremor, unspecified] EpisodicOther nervous system disorders (6 sources)Dysarthria; Translations: [Dysarthria and anarthria]06-26-2025 EpisodicOther nutritional; endocrine; and metabolic disorders (20 sources)Obese class II; Translations: [Obesity, Class II, BMI 35-39.9]Onset: 527869-36-1136JmacvsmJikao nutritional; endocrine; and metabolic disorders (6 sources)Obesity caused by energy imbalance; Translations: [Morbid (severe) obesity due to excess calories]31-23-2507WbsndvpKwhrh nutritional; endocrine; and metabolic disorders (6 sources)Body mass index 30+ - obesity; Translations: [Body mass index (BMI) 39.0-39.9, adult]00-76-4574IoajhveZzqgl nutritional; endocrine; and metabolic disorders (8 sources)Severe obesity; Translations: [Morbid (severe) obesity due to excess calories]Onset: 752670-10-5382FfcqdofEfpca nutritional; endocrine; and metabolic disorders (1 source)Morbid (severe) obesity due to excess calories; Translations: [Morbid (severe) obesity due to excess calories]Onset: 41-24-5251DpdcimbXkaef screening for suspected conditions (not mental disorders or infectious disease) (10 sources)Other specified abnormal findings of blood chemistry; Translations: [Elevated liver function tests]Onset: 064770-70-1181WtgvkaaoLmayj skin disorders (2 sources)Folliculitis; Translations: [Follicular disorder, unspecified] 98-51-8772LsupvojkGxpgj skin disorders (4 sources)Dystrophia unguium; Translations: [Nail dystrophy]53-72-9598Chqhlwav Other upper respiratory disease (2 sources)Nasal congestion; Translations: [Nasal congestion]50-84-6521Dwfigdee Residual codes; unclassified (20 sources)Obstructive sleep apnea syndrome; Translations: [Obstructive sleep apnea (adult) (pediatric)]Onset: 943626-62-0030CapvxgqGewsoujy codes; unclassified (2 sources)Hypersomnia; Translations: [Hypersomnia, unspecified]07-15-2025 ChronicSpondylosis; intervertebral disc disorders; other back problems (10 sources)Other spondylosis with radiculopathy, cervical region; Translations: [Spondylosis without myelopathy or radiculopathy, cervical region]Onset: 47-10-3146ZmnuleoLwvfykvdxtp; intervertebral disc disorders; other back problems (11 sources)Cervical disc disorder with radiculopathy, unspecified cervical region; Translations: [Cervicalgia]Onset: 24-11-8034LejsisewOldakwfzofar (1 source)CONTACT W/AND (SUSP) EXPOS COVID-19; Translations: [CONTACT W/AND (SUSP) EXPOS COVID-19]Onset: 75-46-2743Lruppxnibkbd (1 source)MTM Initial VisitOnset: 06-10-2025 Past or Other Problems Problem ClassificationProblemDateDocumented DateEpisodic/Chronic Administrative/social admission (3 sources)Patient encounter status; Translations: [Persons encountering health services in other specified circumstances]84-89-3619SlfgkzjsLhykaxj dysrhythmias (4 sources)Sinus tachycardia; Translations: [Tachycardia, unspecified]Onset: 154187-44-3417EtpznuclHuzldhk and fatigue (20 sources)Fatigue; Translations: [Other fatigue]Onset: EpisodicMood disorders (12 sources)Mood disordersOnset: 05-08-2025 Resolved: 934748-89-5176Sljvnvblrtb chest pain (1 source)Chest pain; Translations: [Chest pain, unspecified]91-18-8146Zhoekjbu Other aftercare (1 source)Encounter for therapeutic drug level monitoring; Translations: [Encounter for therapeutic drug level monitoring]Onset: 64-61-3064KxxssqqqFrcug nervous system disorders (20 sources)Tremor; Translations: [Tremor, unspecified]Onset: 05-14-2024 96-00-5808IdmsvjqdRcoip skin disorders (1 source)Eruption; Translations: [Rash and other nonspecific skin eruption] 14-07-0558IrsbcygyWigsktgj codes; unclassified (20 sources)Nicotine-filled electronic cigarette user; Translations: [Tobacco use]Onset: 505399-29-0262Hqfhyfjf Results Test NameValueInterpretationReference RangeFacilityPlatelet CountOrdered By: Anuj Kenny on 98-03-9969Cqnxpotwm (Bld) [#/Vol]276 10*3/hBQakruu711-117 [facility] HospitalComment on above:Result Comment: PERFORMED BY: [place] [address] PATHOLOGIST CLAIM PROCESSOR BENJY PEDRO M.D.Performed By: #### PT, PLT #### [facility] [address] [place] [address] USAProthrombin Time INROrdered By: Anuj Kenny on 07-22-2025 INR Coag (PPP) [Relative time]1.0 {INR}[facility] Comment on above:Result Comment: INR Therapeutic Range [...] heart valves: 3 - 4.5 PERFORMED BY: [place] [id number] PATHOLOGIST CLAIM PROCESSOR BENJY PEDRO M.D.Performed By: #### PT, PLT #### [facility] [address] [place] [address] USAINR Therapeutic Range A) Pre- and Peroperative OAT started two weeks before surgery. NOT HIP SURGERY: 1.5 - 2.5 HIP SURGERY: 2 - 3B) Primary and secondary prevention of venous THROMBOSIS: 2 - 3C) Active venous thrombosis, pulmonary embolismand prevention of recurrent venous thrombosis: 2 - 3D) Prevention of arterial thromboembolismincluding patients with mechanical heart valves: 3 - 4.5PT Coag (PPP) [Time]10.9 sNormal9.0-12.9[facility]zer HospitalComment on above:Result Comment: A hematocrit value greater than 55% may lead to inaccurate results in coagulation testing. Patients having hematocrit values >55% require a special collection tube for coagulation studies. Please contact the laboratory at [phone] for redraw instructions.Performed By: #### PT, PLT #### [address] [address] hematocrit value greater than 55% may lead to inaccurate results in coagulation testing. Patientshaving hematocrit values >55% require a special collection tube for coagulation studies. Please contact the laboratory at [phone] for redraw instructions.US needle biopsyon 96-70-6037YH needle biopsyHOCK[facility] Main [place] [address] [place] [address] Ultrasound Report Signed Patient: Marita Messina MR#: [id number] : 1985 Acct:[id number] Age/Sex: 40 / F ADM Date: 07/22/25 Loc: Room: Type: [facility] Attending Dr: Woodrow Valentino APRN Ordering [...] Kenny M.D. 07/22/2025 2:13 PM Dictation Location: [place] [address] Tech: Lucia Echeverria By: DAY 07/22/25 1413 Dictated By: Anuj Kenny DO 07/22/25 1408 Signed By: 07/22/25 1413[facility] CenterMR BRAIN WO CONTRASTon 19-30-1128NZ BRAIN WO CONTRASTEXAM: MR BRAIN WO CONTRAST [...] BY: Stanley Morrow, LoramalNot AvailableANA Antinuclear Antibodieson 04-20-8346Slamdiwghts Abs, IFANegativeNormal.[facility] Physician [facility] CenterComment on above:Result Comment: Negative <1:80 Borderline 1:80 Positive >1:80 ICAP nomenclature: AC-0 For more information about Hep-2 cell patterns use ANApatterns.org, the official website for the International Consensus on Antinuclear Antibody (ED) Patterns (ICAP). Performed at: - [place] [id number] Chain Mender: Fish Sharma PhD, Phone: [phone] By: #### PT, PLT #### [place] [id number] LJXMtkdm-0-Zdadezzixmf Phenotypeon 67-37-1255Quvum 1 Anti-Byjrzen989 mg/aQAxgfyf962-025Ozm [facility] CenterComment on above: Performed By: #### PT, PLT #### [place] [address] USAPhenotype (P1)MMNormal.[facility] Phys[facility] Comment on above:Result Comment: MM Phenotype is considered to be normal , producing normal serum levels of gkqwg-5-gnegjrjq inhibitor and not associated with clinical disease. [...] Ranges used to confirm phenotype. Performed at: [address] [id number] Chain Mender: Fish Sharma PhD, Phone: [phone] Performed at: [address] [id number] Chain Mender: Nemesio Herring MD, Phone: [phone] By: #### PT, PLT #### [place] [address] USACeruloplasminon 97-26-7143Mfrqyxtoihcbs29.5 mg/dLNormal 19.0-39.0The [facility] Hospital Physician GroupComment on above:Result Comment: Performed at: [address] [id number] Chain Mender: Fish Sharma PhD, Phone: [phone] PERFORMED BY: [place] [address] PATHOLOGIST CLAIM PROCESSOR BENJY PEDRO M.D.Performed By: #### HCV RX PCR, HAABT, CERULOP, HEMOCHROM, HBSAB, HCBIGM, HBCAB, SMAB, TTG, HBSAG, L-K MICRO, ALPHA PHEN, HAAB, MITOM2, IGG, PETH PROFILE, ED #### [facility] , #### LIPID, TIBURCIO #### [place] [address] USAFerritinon 07-92-6928Ujyhqtyg [Mass/Vol]91.1 ng/mLNormal 11.0-306.8The [facility] Hospital Physician GroupComment on above:Performed By: #### HCV RX PCR, HAABT, CERULOP, HEMOCHROM, HBSAB, HCBIGM, HBCAB, SMAB, TTG, HBSAG, L-K MICRO, ALPHA PHEN, HAAB, MITOM2, IGG, PETH PROFILE, ED #### [facility] , #### LIPID, TIBURCIO #### [place] [address] USAHep C Ab wRfx to Qnt PCRon 36-56-7791Ccxegfbdv C Virus AntibodyNon-ReactiveNormalNon ReactiveThe Critical Access Hospital Physician GroupComment on above:Performed By: #### HCV RX PCR, HAABT, CERULOP, HEMOCHROM, HBSAB, HCBIGM, HBCAB, SMAB, TTG, HBSAG, L-K MICRO, ALPHA PHEN, HAAB, MITOM2, IGG, PETH PROFILE, ED #### [facility] , #### LIPID, TIBURCIO #### [facility] [address] [place] [address] USAInterpretation Hepatitis CCommentNormal.The [facility] Hospital Physician GroupComment on above:Result Comment: Not infected with HCV unless early or acute infection is suspected (which may be delayed in an immunocompromised individual), or other evidence exists to indicate HCV infection.Performed By: #### HCV RX PCR, HAABT, CERULOP, HEMOCHROM, HBSAB, HCBIGM, HBCAB, SMAB, TTG, HBSAG, L-K MICRO, ALPHA PHEN, HAAB, MITOM2, IGG, PETH PROFILE, ED #### [facility] , #### LIPID, TIBURCIO #### [place] [address] USAHepatitis A Antibody IgMon 87-26-2701Uvbvqlhby A Antibody IgMNegativeNormalNegativeMount S[facility] & [place] [facility] Physician GroupComment on above:Result Comment: A negative anti-HAV IgM result suggests no recent or current HAV infection.Performed By: #### HCV RX PCR, HAABT, CERULOP, HEMOCHROM, HBSAB, HCBIGM, HBCAB, SMAB, TTG, HBSAG, L-K MICRO, ALPHA PHEN, HAAB, MITOM2, IGG, PETH PROFILE, ED #### [facility] , #### LIPID, TIBURCIO #### [place] [address] USAHepatitis A Antibody Totalon 75-83-8632Dsfioxvaf A Antibody TotalNegativeNormalNegativeMount Sinai [facility] & [place] [facility] Physician GroupComment on above:Result Comment: Comment: The [...] total antibody results to IgM (e.g., panel #[id number] HAV Antibody w/ Rfx).Performed By: #### HCV RX PCR, HAABT, CERULOP, HEMOCHROM, HBSAB, HCBIGM, HBCAB, SMAB, TTG, HBSAG, L-K MICRO, ALPHA PHEN, HAAB, MITOM2, IGG, PETH PROFILE, ED #### [facility] , #### LIPID, TIBURCIO #### [place] [address] USAHepatitis B Core Antibodyon 42-19-8326Nzyjhrupr B Core AntibodyNegativeNormalNegativeMount Sinai [facility] & [place] [facility] Physician GroupComment on above: Performed By: #### PT, PLT #### [place] [address] USAHepatitis B Core Antibody IgMon 71-69-1648Tdenmrnoh B Core Antibody IgMNegativeNormalNegativeMount S[facility] & [place] [facility] Physician GroupComment on above:Result Comment: Performed at: [address] [id number] Chain Mender: Fish Sharma PhD, Phone: [phone] By: #### HCV RX PCR, HAABT, CERULOP, HEMOCHROM, HBSAB, HCBIGM, HBCAB, SMAB, TTG, HBSAG, L-K MICRO, ALPHA PHEN, HAAB, MITOM2, IGG, PETH PROFILE, ED #### [facility] , #### LIPID, TIBURCIO #### [place] [id number] USAHepatitis B Surface Antibodyon 68-87-2761Mchzylkaz B Surface AntibodyReactiveNormal.The [facility] Hospital Physician GroupComment on above: Result Comment: Non Reactive: Not immune to HBV infection. Anti-HBs undetectable or less than 10 mIU/mL. Reactive: Evidence of HBV immunity. Anti-HBs levels greater than 10 mIU/mL.Performed By: #### HCV RX PCR, HAABT, CERULOP, HEMOCHROM, HBSAB, HCBIGM, HBCAB, SMAB, TTG, HBSAG, L-K MICRO, ALPHA PHEN, HAAB, MITOM2, IGG, PETH PROFILE, ED #### [facility] , #### LIPID, TIBURCIO #### [place] [address] USAHepatitis B Surface Antigenon 29-90-0615EIiZk Screen NegativeNormalNegativeThe [facility]urban Community HospitalComment on above:Result Comment: PERFORMED BY: [place] [address] PATHOLOGIST CLAIM PROCESSOR BENJY PEDRO M.D.Performed By: #### PT, PLT #### [place] [address] USAHereditary Hemochromatosis,DNAon 16-53-3453Kqqeagjxgt HemochromatosisCommentNormal.The [facility] Hospital Physician GroupComment on above: Result Comment: Result: c.845G>A (p.Gnf342Nhl) - Not Detected c.187C>G (p.Kgp20Cdr) - Not Detected c.193A>T (p.Ffa36Rig) - Not Detected Not associated with increased [...] for patients who are homozygous for c.845G>A (p.Dzd217Wkr) and have yet to experience clinical symptoms. Comments: The most common HFE variants associated with hereditary hemochromatosis are c.845G>A (p.Jzj513Fgq), c.187C>G (p.Bic48Hor), c.193A>T (p.Uht13Jnn). While patients homozygous for c.845G>A (p.Rqd558Ldz) are the most likely to present clinical symptoms, less than 10% develop clinically significant iron overload with tissue and organ damage. Genetic counseling is recommended to discuss the potential clinical implications of positive results, as well as recommendations for testing family members. Genetic Coordinators are available for health care providers to discuss results at [phone] Test Details: Three variants analyzed: c.845G>A (p.Mtq351Reg), commonly referred to as C282Y c.187C>G (p.Sup87Ilf), commonly referred to as H63D c.193A>T (p.Mlk72Nnk), commonly referred to as S65C Methods/Limitations: DNA [...] developed and its performance characteristics determined by [facility]. It has not been cleared or approved by the Food and Drug Administration. References: Laurent BR, Edwin PC, Lawrence KV, Navin LW, Delmy ; [employer] Liver [employer]. Diagnosis and management of hemochromatosis: 2011 practice guideline by the [employer] Liver Diseases. Hepatology. 2011 Mar;54(1):328-43. doi: 10.1002/hep.74344. PMID: 96353835; PMCID: WNK9836819. Harman G, Josh P, Geetha DW, Marline H, Alex O, Dylon S, Ramiro I, Jude M, Jose S. [facility] best practice guidelines for the molecular genetic diagnosis of hereditary hemochromatosis (HH). Eur J Hum Jessa. 2016 Dec;24(4):479-95. doi: 10.1038/ejhg.2015.128. Epub 2014Mar 17. PMID: 37818242; PMCID: EPZ8683256.Performed By: #### HCV RX PCR, HAABT, CERULOP, HEMOCHROM, HBSAB, HCBIGM, HBCAB, SMAB, TTG, HBSAG, L-K MICRO, ALPHA PHEN, HAAB, MITOM2, IGG, PETH PROFILE, ED #### [facility] , #### LIPID, TIBURCIO #### [place] [address] USAReviewed by:CommentNormal.The [facility] Comment on above:Result Comment: Technical Component performed at [facility] [place] Professional Component performed by: Kurtis Mccall, PhD, [facility] [id number], [facility], [address] [facility] [place] [address] Performed at: - [facility] [place] [address] [facility], [place], [place] [address] Chain Mender: Татьяна Blanco [facility], Phone: [phone] PERFORMED BY: [place] [address] PATHOLOGIST CLAIM PROCESSOR BENJY PEDRO M.D.Performed By: #### HCV RX PCR, HAABT, CERULOP, HEMOCHROM, HBSAB, HCBIGM, HBCAB, SMAB, TTG, HBSAG, L-K MICRO, ALPHA PHEN, HAAB, MITOM2, IGG, PETH PROFILE, ED #### [facility] , #### LIPID, TIBURCIO #### [facility] [address] [place] [id number] USAImmunoglobulin Vickey 61-83-5735Hijnsihucnpars G644 mg/dL Qahcmo634-0262Jik [facility] Physician GroupComment on above:Result Comment: Performed at: - [facility] [address] [id number] Chain Mender: Fish Sharma PhD, Phone: [phone] By: #### PT, PLT #### [address] [address] USALipid Panelon 89-85-7113Koclorturab [Mass/Vol]121 mg/dLLow 140-200The [facility] Hospital Physician GroupComment on above:Result Comment: Chol less than 200 mg/dl low risk Chol 201-239 mg/dl borderline risk Chol 240 mg/dl and greater high riskPerformed By: #### HCV RX PCR, HAABT, CERULOP, HEMOCHROM, HBSAB, HCBIGM, HBCAB, SMAB, TTG, HBSAG, L-K MICRO, ALPHA PHEN, HAAB, MITOM2, IGG, PETH PROFILE, ED #### [facility] , #### LIPID, ITBURCIO #### [place] [address] USACholesterol in HDL [Mass/Vol]51 mg/rIOycmjb80-82Vei [facility] Physician [facility] CenterComment on above:Result Comment: HDL CHOL ATP-III CLASSIFICATION Cardiovascular Risk HDL > or equal to 60 mg/dL LOW HDL < 40 mg/dL HIGHPerformed By: #### HCV RX PCR, HAABT, CERULOP, HEMOCHROM, HBSAB, HCBIGM, HBCAB, SMAB, TTG, HBSAG, L-K MICRO, ALPHA PHEN, HAAB, MITOM2, IGG, PETH PROFILE, ED #### [facility] , #### LIPID, TIBURCIO #### [place] [address] USACholesterol.total/Cholesterol in HDL [Mass ratio]2.4 {ratio}Normal<5.0The [facility] GroupComment on above:Result Comment: PERFORMED BY: [place] [address] PATHOLOGIST CLAIM PROCESSOR BENJY PEDRO M.D.Performed By: #### HCV RX PCR, HAABT, CERULOP, HEMOCHROM, HBSAB, HCBIGM, HBCAB, SMAB, TTG, HBSAG, L-K MICRO, ALPHA PHEN, HAAB, MITOM2, IGG, PETH PROFILE, ED #### [facility] , #### LIPID, TIBURCIO #### [place] [address] USALDL Cholesterol,Mindvjcaip11 mg/dLNormal0-100The [facility] Hospital Physician GroupComment on above:Result Comment: LDL ATP [...] #### [facility] , #### LIPID, TIBURCIO #### [place] [address] USATriglyceride w/Xozssx273 mg/dLHigh0-149The [facility] Hospital Physician GroupComment on above:Result Comment: TRIG ATP [...] #### [facility] , #### LIPID, TIBURCIO #### [place] [address] USAVLDL BIFAVXMWHYA49 mg/dLNormalThe Suburban Community HospitalComment on above:Performed By: #### HCV RX PCR, HAABT, CERULOP, HEMOCHROM, HBSAB, HCBIGM, HBCAB, SMAB, TTG, HBSAG, L-K MICRO, ALPHA PHEN, HAAB, MITOM2, IGG, PETH PROFILE, ED #### [facility] , #### LIPID, TIBURCIO #### [place] [address] USALiver-Kidney Microsomal Abon 71-78-9288Vkppo-Kidney Microsomal Ab<1.0Aknyng1.0-20.0The [facility]urban Community HospitalComment on above: Result Comment: Negative 0.0 - 20.0 Equivocal 20.1 - 24.9 Positive >24.9 LKM type 1 antibodies are detected in patients with autoimmune hepatitis type 2 and in up to 8% of patients with chronic HCV infection. Performed at: [place] [id number] Chain Mender: Fish Sharma PhD, Phone: [phone] By: #### PT, PLT #### [place] [address] USAMitochondrial (M2) Antibodyon 66-68-9869Uvthufjtdfrrs (M2) Antibody<20.3Tfjtft1.0-20.0The [facility]urban Community HospitalComment on above:Result Comment: Negative 0.0 - 20.0 Equivocal 20.1 - 24.9 Positive >24.9 Mitochondrial (M2) Antibodies are found in 90-96% of patients with primary biliary cirrhosis. Performed at: [address] [id number] Chain Mender: Fish Sharma PhD, Phone: [phone] By: #### PT, PLT #### [place] [address] USAPhosphatidylethanol Profileon 06-10-2025 Phosphatidylethanol (PEth) Qnt50 ng/mLNormal.The [facility] Comment on above:Result Comment: Analyzed compound: PEth 16:0/18:1. 4-xitwnkrrp-2-fehjtv-xj-xikyloc-3-phosphoethanol. Analysis performed by Liquid Chromatography with Tandem [...] developed and its performance characteristics determined by [employer]. It has not been cleared or approved by the Food and Drug Administration. Performed at: [employer] [address] [id number] Chain Mender: Glory Chavez [facility], Phone: [phone] PERFORMED BY: [place] [address] PATHOLOGIST CLAIM PROCESSOR BENJY PEDRO M.D.Performed By: #### PT, PLT #### [place] [address] USAPhosphatidylethanol (PEth) ScnPositiveCritically abnormal. The [facility] Hospital Physician GroupComment on above:Performed By: #### PT, PLT #### [place] [address] USASmooth Muscle Antibodyon 75-42-4707Ginzje Muscle Antibody4 Normal0-19The [facility] Hospital Physician GroupComment on above:Result Comment: Negative 0 - 19 Weak positive 20 - 30 Moderate to strong positive >30 Actin Antibodies are found in 52-85% of patients with autoimmune hepatitis or chronic active hepatitis and in 22% of patients with primary biliary cirrhosis.Performed By: #### PT, PLT #### [facility] [address] [place] [address] USAtTG IgA/IgG Transglutaminaseon 60-68-1125B- Transglutaminase (tTG) IgA<0Sqtxjs3-9Tdl [facility] Hospital Physician GroupComment on above:Result Comment: Negative 0 - 3 Weak Positive 4 - 10 Positive >10 Tissue Transglutaminase (tTG) has been identified as the endomysial antigen. Studies have demonstr- ated that endomysial IgA antibodies have over 99% specificity for gluten sensitive enteropathy.Performed By: #### PT, PLT #### [facility] [address] [place] [address] USAT-Transglutaminase (tTG) IgG<8Zbdztb2-4Lox [facility] Hospital Physician GroupComment on above:Result Comment: Negative 0 - 5 Weak Positive 6 - 9 Positive >9Performed By: #### PT, PLT #### [facility] [address] [place] [address] USAUS LIVERon 05-71-1021CY LIVERUS LIVER History: Elevated liver enzymes. Technique: [...] MDNormalNot AvailableLaboratory - Microbiology and Antimicrobial susceptibilityon 12-55-3991SHUF-CoV-2 (COVID-19) RNA MEGAN+probe Ql (Unsp spec)-[facility]OMS HealthcareNo Panel Informationon 51-44-4873IPV A-N[facility] HealthcareFLU B-N[facility] HealthcareInterpretation and review of laboratory resultsNormalNONortheast Regional Medical Center HealthcareALT No additional P-5'-P [Catalytic activity/Vol]on 56-83-7138JZZ [Catalytic activity/Vol]51 U/LHigh0-31[facility] Of East Los AngelesComment on above:Performed By: #### 1744-2, 1920-04, 2571-04, 2088-09 #### [facility] ([id number]) [address], [address] [place], [place] [address]YHYnh 81-57-2885OSI [Catalytic activity/Vol]38 U/LNormal0-41 [facility] Of East Los AngelesComment on above:Performed By: #### 1744-2, 1920-04, 2571-04, 2088-09 #### [facility] ([id number]) [address], [address] [place], [place] [address]XPJRLR LDLon 52-18-2399Xyncmcaimsj in LDL [Mass/Vol]65 mg/dL Normal<130[facility] Clinic FoundationComment on above:Result Comment: LDL <100 mg/dL - Desirable LDL 130-159 mg/dL - Borderline High Risk LDL >160 mg/dL - High Risk Performed By: #### 1744-2, 1920-04, 2571-04, 2088-09 #### [facility] ([id number]) [address], [address] [place], [place] [address]DARXPBQUKEXOxv 79-87-0637Srfqcmfftoil [Mass/Vol]234 mg/dLHigh 27-150ProTexas Health FriscoComment on above:Performed By: #### 1744-2, 1920-04, 2571-04, 2088-09 #### [facility] ([id number]) [address], [address] [place], [place] [address]CV CERVICAL SPINE WO CONTon 47-62-0306DS CERVICAL SPINE WO CONT MR CERVICAL SPINE [...] by Luis A Myles on 09/16/2024 2:09 [facility] Office/Clinic Noteon 21-04-4272Ehebtqeyju Office/Clinic NoteChief Complaint Annual. History of Present [...] cover after 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 When there are no FDA-approved or cleared tests available, and other criteria are met, FDA can make tests available under an emergency access mechanism called an Emergency Use Authorization (EUA). The EUA for this test is supported by the [place] of Health and Human Service's (HHS's) declaration [...] consistent with SARS-CoV-2.Performed By: #### CVDTB #### [facility] [address] [place] [address] Dr. Adis Gregory-19 PCR ([facility])on 61-76-8203DAJC-CoV-2 (COVID-19) RNA MEGAN+probe Ql (Unsp spec)Not detectedNormalNOT DETECTEDThe [facility] Comment on above:Result Comment: This test is not yet approved or cleared by the [place] FDA. When there are no FDA-approved or cleared tests available, and other criteria are met, FDA can make tests available under an emergency access mechanism called an Emergency Use Authorization (EUA). The EUA for this test is supported by the [place] of Health and Human Service's (HHS's) declaration [...] consistent with SARS-CoV-2.Performed By: #### CVDTBH #### [facility] [address] [place] [address] Dr. Adis Park 94-80-3231PITQHGLNHaxzlk (NEUWIL) MARITA MESSINA ([id number]) 1985 F Date Time Provider Department 07/04/21 [...] evening Encounter Status:Closed by RAYMOND MEDINA on 07/05/21[facility] HospitalSHARONludmila [id number] (NFWH) MARITA MESSINA ([id number]) 1985 F Date Time Provider Department 05/27/21 [...] MONTH. Encounter Status:Closed by RAYMOND MEDINA on 05/30/21NoProMedica Fostoria Community HospitalOBSOLETEludmila [id number] (NFWH) MARITA MESSINA ([id number]) 1985 F Date Time Provider Department 04/26/21 [...] days. Encounter Status:Closed by RAYMOND MEDINA on 04/27/21NoProMedica Fostoria Community HospitalCoding Summary.on 63-37-8451Llkysa Summary.CODING DATE: 05/31/2019 FINAL [facility] STATUS: Home (Routine DC) PAYOR: Medicaid EAPG [...] By: Prachi Andres Date Saved: 05/31/2019 06:25 [facility]Gy[facility]/Clinic Noteon 02-29-6187Clqwipphyb Office/Clinic NoteChief Complaint Colposcopy Lat Pap 05-05-2019 [...] and next steps Ordered: Colposcopy with biopsy 36238 Pathology Tissue Exam Pathology Tissue Exam Follow-up With When Contact Information She BINGHAM CNP In 1 year [email or web address] Additional Instructions: She BINGHAM CNP Only if needed [email or web address] Additional Instructions: Problem List/Past Medical History Ongoing [...] mellitus type 2: Father and Grandparent. Hyperlipidemia: Father.Peoples HospitalComment on above:Result Comment: Electronically Signed By: She BINGHAM CNP\Date and Time Signed: 05/20/19 14:48 EDTCoding Summary.on 55-69-5946Arpzca Summary.CODING DATE: 05/06/2019 FINAL [facility] STATUS: Home (Routine DC) PAYOR: Medicaid EAPG [...] Tish Dean CphT Date Saved: 05/06/2019 09:14 amNSamaritan HospitalPAP 739207es 41-98-3325Qtrncehn report Cyto stain Doc (Cvx/Vag)NoteAbnormUpper Valley Medical CenterComment on above:Result Comment: TESTS RESULT FLAG UNITS REF RANGE LAB Clinician Provided Cytology Information Source.............Cervix Other..............IUD No. of containers..01 ThinPrep Vial DIAGNOSIS: [A] 01 EPITHELIAL CELL ABNORMALITY. ATYPICAL SQUAMOUS CELLS OF UNDETERMINED SIGNIFICANCE (ASC-US). 01 Satisfactory for evaluation. Endocervical and/or squamous metaplastic cells (endocervical component) are present. 01 Maricarmen Stovall, Surgical Elastic Knitter Hand Frame (ASCP) 01 Jennifer Lopes MD, Pathologist 01 [...] Low,>-Panic High,A-Abnormal,AA-Critical Abnormal Performed at: 01 [facility] [employer] [place] [address] Soraya Cabrera MD, Jyrjnemlk By: #### [id number], [id number] #### [facility] [address] [place] [id number] 16+18+31+33+35+39+45+51+52+56+58+59+68 DNA Probe+sig amp Ql (Cvx)PositiveAbnormalNegativeFisher Mercy Medical CenterComment on above:Result Comment: This high-risk HPV test detects thirteen high-risk types (16/18/31/33/35/39/45/51/52/56/58/59/68) without differentiation. Performed at: [facility] [place] [id number] MD Rick Lira Performed at: =G [facility] [address] [id number] MD Rick PereyraaliPerformed By: #### [id number], [id number] #### [facility] [address] [place], [place] [address]Grhlcphnf Read PAPon 45-23-8841Nxkddtbhjvp review Noe (Unsp spec) [Interp]NoteFishBrook Lane Psychiatric CenterComment on above:Result Comment: TESTS RESULT FLAG UNITS REF RANGE LAB Physician Read Pap Note 01 Performed FLAG LEGEND: L-Low Normal,H-High Normal,LL-Alert Low,HH-Alert High <-Panic Low,>-Panic High,A-Abnormal,AA-Critical Abnormal Performed at: 01 [facility] [employer] [place] [address] [place] [address] Soraya Cabrera MD, Performed at: [facility] [place] [address] [place], [place] [id number] MD Rick PereyraaliPerformed By: #### [id number], [id number] #### [facility] [address] [place], [place] [address]Nwbzxhzwcd Office/Clinic Noteon 17-95-7081Zxcridiyjn Office/Clinic NoteChief Complaint Annual LPS 03/25/2018 ASCUS [...] results Ordered: Office Visit Level 3 Est 93131 PAP [id number] w/HPV HR US Pelvis Non-OB Complete 2. Pelvic pain (R10.2: Pelvic and perineal pain) US ordered, will fax to [facility] Ordered: Office Visit Level 3 Est 75683 US Pelvis Non-OB Complete Visit for routine occupational health coordinator exam (Z01.419: Encounter for gynecological examination (general) [...] Preventive Med 18 to 39 years Est 05139 Follow-up No qualifying data available Problem List/Past [...] mellitus type 2: Father and Grandparent. Hyperlipidemia: Father.Peoples HospitalComment on above:Result Comment: Electronically Signed By: She BINGHAM CNP\Date and Time Signed: 04/29/19 11:36 EDTPAP [id number] 63-66-1574Qahcqrjxqvwyx Body SiteCERVIX Peoples HospitalComment on above:Performed By: #### [id number], [id number] #### [facility] [address] [place], [place] [address]Gjpcz Patient InformationIUDNoSelect Medical Specialty Hospital - [facility]on Comment on above:Performed By: #### [id number], [id number] #### [facility] [address] [place] [address] Vital Signs Date TimeVital SignValuePerforming NbpetqpieNqboipmr51-96-1756 10:40-0500 Diastolic blood mm[Hg]Jo-Ann Gee MD Work Phone: [phone]11-12-2025 10:40-0500 Heart rate76 /Sina Gee MD Work Phone: [phone]11-12-2025 10:40-0500 Respiratory rate18 /Sina Gee MD Work Phone: [phone]11-12-2025 10:40-0500 SaO2% (BldA) [Mass fraction]100 %Jo-Ann Gee MD Work Phone: [phone]11-12-2025 10:40-0500 Systolic blood yafrdgin099 mm[Hg]Jo-Ann Gee MD Work Phone: [phone] [place], [place] 8804011-12-2025 08:24-0500 Body knvkve483.48 Lilibeth Gee MD Work Phone: [phone] [place], [place] 8804011-12-2025 08:24-0500 Body oauwum36.18 kgJo-Ann Gee MD Work Phone: [phone] [place], [place] 8804010-17-2025 13:36-0400 Body mass index (BMI) [Ratio]34.86 kg/c2OcvnbDorcas Peralta QI SPECIALIST Work Phone: [phone] [place], [place] 2115510-17-2025 13:36-0400Body cmltux14.46 kgDorcas Peralta QI SPECIALIST Work Phone: [phone] [place], [place] 2115510-17-2025 13:36-0400Diastolic blood pyksytlj85 mm[Hg]Dorcas Peralta QI SPECIALIST Work Phone: [phone] [place], [place] 2115510-17-2025 13:36-0400Heart rate92 /min Dorcas Peralta QI SPECIALIST Work Phone: [phone] [place], [place] 2115510-17-2025 13:36-4481ZvS9% (BldA) [Mass fraction]98 %Dorcas Peralta QI SPECIALIST Work Phone: [phone])[address] [place], [place] 2115510-17-2025 13:36-0400Systolic blood wanvjnop938 mm[Hg]Dorcas Peralta QI SPECIALIST Work Phone: [phone] [place], [place] 2115510-01-2025 11:21-0400Body muhikj107.[address]10-01-2025 11:21-0400Body mass index (BMI) [Ratio] 35.12 kg/m[address]10-01-2025 11:21-0400Body kavxtz11.[address] [place], [place] 7393809-17-2025 08:45-0400Body bybcnl867.48 Lilibeth Gee MD Work Phone: [phone] [place], [place] 8804009-17-2025 08:45-0400 Body mass index (BMI) [Ratio]35.4 kg/p8ExtywpjjJo-Ann Gee MD Work Phone: [phone]09-17-2025 08:45-0400 Body oqqmjc95.99 kgJo-Ann Gee MD Work Phone: [phone]09-17-2025 08:45-0400 Diastolic blood syayrlix64 mm[Hg]Jo-Ann Gee MD Work Phone: [phone])[address]09-17-2025 08:45-0400 Heart rate90 /minJo-Ann Gee MD Work Phone: [phone]09-17-2025 08:45-0400 Systolic blood nicsamyu027 mm[Hg]Jo-Ann Gee MD Work Phone: [phone]08-29-2025 10:57-0400 Body mass index (BMI) [Ratio]35.48 kg/u4Wbmbz Kathryn QI SPECIALIST Work Phone: [phone] CenterTdakglgbqz23-59-8355 10:57-0400Body kg Dorcas Kathryn QI SPECIALIST Work Phone: [phone])[phone] [place], [place] [address]Uichshoasb59-42-5698 10:57-0400Diastolic blood pswnahst12 mm[Hg]Dorcas Kathryn QI SPECIALIST Work Phone: [phone] CenterUzpsdansxf89-71-3840 10:57-0400Heart iabl812 /min Dorcas Ktahryn QI SPECIALIST Work Phone: [phone] [address]Kkyldvkvsv35-63-1210 10:57-2391CzO9% (BldA) [Mass fraction]98 %Dorcas Kathryn QI SPECIALIST Work Phone: [phone] [address]Akmnrinqma24-36-7934 10:57-0400Systolic blood kzyztnff622 mm[Hg]Dorcas Kathryn QI SPECIALIST Work Phone: [phone]11[place] [address]Vxnvspukcq12-44-9995 16:15-0400Body qfwesc068.5 cmSteven Rusher DPM Work Phone: [phone] [place], [place] [address]Viuhbkfdac23-40-1268 16:15-0400Body mass index (BMI) [Ratio]37.09 kg/x1Lasjav Rusher DPM Work Phone: [phone])585-[address] [place] [address]-19-2025 16:15-0400Body tipjwi48.99 kgSteven Rusher DPM Work Phone: [phone] [place], [place] [address]Dmofkxvmxf41-98-5287 11:13-0400Body kimnun613.5 Alma Peralta QI SPECIALIST Work Phone: [phone])417-[address] [place], [place] [address]Pzgqckbvsq02-01-8369 11:13-0400Body mass index (BMI) [Ratio]37.09 kg/s6BguiwDorcas Peralta QI SPECIALIST Work Phone: 1([phone])040-[address] [place], [place] [address]Fqabmgopcv29-93-5636 11:13-0400Body qsnfne67.99 kgDorcas Peralta QI SPECIALIST Work Phone: [phone] [place], [place] [address]Tatpkxyvpp02-45-3326 11:13-0400Diastolic blood mm[Hg]Dorcas Peralta QI SPECIALIST Work Phone: [phone] [place], [place] [address]Nqdayjexig33-84-5070 11:13-0400Heart rate83 /min Dorcas Peralta QI SPECIALIST Work Phone: [phone] [place], [place] [address]Mgillwghwf45-49-2142 11:13-9205IkF9% (BldA) [Mass fraction]97 %Dorcas Peralta QI SPECIALIST Work Phone: [phone])631-[address] [place], [place] [address]Ytrcjvucvi55-84-1561 11:13-0400Systolic blood eldenvca437 mm[Hg]Dorcas Peralta QI SPECIALIST Work Phone: [phone] [place], [place] [address]Okglmhdetq07-01-2539 16:10-0500Body szbryh595.5 cmSteven Rusher DPM Work Phone: [phone] [place], [place] [address]Ztxktjfdra88-32-4043 16:10-0500Body mass index (BMI) [Ratio]40.42 kg/a4Rgwkbs Rusher DPM Work Phone: [phone])289-[address] [place], [place] [address]Gnrrtcfuuz03-63-4196 16:10-0500Body mugnns606.25 kgSteven Rusher DPM Work Phone: [phone])711-[address] [place], [place] [address]Bflvwlkevo22-49-5089 11:03-0500Body kzsemn423.5 Alma Peralta QI SPECIALIST Work Phone: [phone] [place], [place] [address]Eejzeiwkkk54-56-3816 11:03-0500Body mass index (BMI) [Ratio]40.57 kg/e4AzapsDorcas Peralta QI SPECIALIST Work Phone: [phone])306-[address] [place], [place] [address]Uyywbzkpia06-18-0959 11:03-0500Body .61 kgDorcas Peralta QI SPECIALIST Work Phone: [phone] [place], [place] [address]Jdhcwuwddp04-97-3387 11:03-0500Diastolic blood seewinzt13 mm[Hg]Dorcas Peralta QI SPECIALIST Work Phone: [phone] [place], [place] [address]Yjxsmshgam83-70-4392 11:03-0500Heart zcsn176 /min Dorcas Peralta QI SPECIALIST Work Phone: [phone] [place], [place] [address]Oegddlmrjd49-15-0713 11:03-0568VhN1% (BldA) [Mass fraction]97 %Dorcas Peralta QI SPECIALIST Work Phone: [phone])854-[address] [place], [place] [address]Lppqhhdyts92-44-0649 11:03-0500Systolic blood enkqawya932 mm[Hg]Dorcas Peralta QI SPECIALIST Work Phone: 1(390)051-[address] [place], [place] [address]Cqggbogijk41-53-3164 15:35-0500Body .5 Tanikatelam Levineher DPM Work Phone: 1([phone])706-[address] [place], [place] [address]Umqfnupxmj51-89-8318 15:35-0500Body mass index (BMI) [Ratio]40.6 kg/h5Ysmgmp Rusher DPM Work Phone: [phone])989-[address] [place] [address]-25-2024 15:35-0500Body enpzet564.7 kgSteven Rusher DPM Work Phone: [phone])670-[address] [place], [place] [address]Omabwzhagy02-31-7680 10:54-0400Body hjhsud014.5 Alma Peralta QI SPECIALIST Work Phone: [phone] CenterSodchqipbc31-74-1319 10:54-0400Body mass index (BMI) [Ratio]39.36 kg/x8DihqtDorcas Peralta QI SPECIALIST Work Phone: [place] [address]Fxwsgyfvqh09-86-9851 10:54-0400Body pbmrme62.61 kgDorcas Peralta QI SPECIALIST Work Phone: [place] [address]Gllupkyjvd54-75-2163 10:54-0400Diastolic blood ajdwyyce48 mm[Hg]Dorcas Peralta QI SPECIALIST Work Phone: [place] [address]Cqbmmfdqxe45-69-1528 10:54-0400Heart rate98 /min Dorcas Peralta QI SPECIALIST Work Phone: [place] [address]Idvejfygml11-65-0993 10:54-4191UvN2% (BldA) [Mass fraction]97 %Dorcas Peralta QI SPECIALIST Work Phone: [place] [address]Idlydqmuxk33-28-0269 10:54-0400Systolic blood wiouvanp954 mm[Hg]Dorcas Peralta QI SPECIALIST Work Phone: [phone] [address]Ghklrvyqfh87-38-8668 10:24-0400Body mass index (BMI) [Ratio]38.99 kg/h9CgzlwDorcas Peralta QI SPECIALIST Work Phone: [place] [address]Bzsbnmrofh37-72-8327 10:24-0400Body .71 kgDorcas Peralta QI SPECIALIST Work Phone: [place] [address]Ikptqkpyje19-52-3218 10:24-0400Diastolic blood kideuntq41 mm[Hg]Dorcas Peralta QI SPECIALIST Work Phone: [place] [address]Ibnovczcpj72-51-9800 10:24-0400Heart rate93 /min Dorcas Peralta QI SPECIALIST Work Phone: [place] [address]Zvrmgyvozj77-74-5699 10:24-2050NcN7% (BldA) [Mass fraction]99 %Dorcas Peralta QI SPECIALIST Work Phone: [place] [address]Bqkbapvnio64-64-4060 10:24-0400Systolic blood lryuekyy886 mm[Hg]Dorcas Peralta QI SPECIALIST Work Phone: [facility] CenterGfvgvkczdg92-17-4197 11:30-0400Body cuheec100.5 cmSkenton Peralta QI SPECIALIST Work Phone: [facility] CenterOlgkyjcegx67-08-4914 11:30-0400Body mass index (BMI) [Ratio]39.03 kg/n1LzpdeDorcas Peralta QI SPECIALIST Work Phone: [facility] CenterGtvuzgqopg83-59-0741 11:30-0400Body palmss62.8 kg Dorcas Peralta QI SPECIALIST Work Phone: [facility] CenterCyvjspybma36-67-9893 11:30-0400Diastolic blood hcualaxo70 mm[Hg]Dorcas Peralta QI SPECIALIST Work Phone: [facility] CenterEopdhmnwdn16-07-0098 11:30-0400Heart ybzh649 /min Dorcas Peralta QI SPECIALIST Work Phone: [facility] CenterFhbzbewjlp02-92-0018 11:30-9786GtZ2% (BldA) [Mass fraction]98 %Dorcas Peralta QI SPECIALIST Work Phone: [facility] CenterEglncptabw09-29-7068 11:30-0400Systolic blood asczbfen297 mm[Hg]Dorcas Peralta QI SPECIALIST Work Phone: [facility] CenterEuxxungfnj89-03-1409 10:18-0400Body mfkjzy540.5 cmJurgen English MD Work Phone: [phone] [place], [place] [address]2508-26-2024 10:18-0400Body mass index (BMI) [Ratio]38.67 kg/x5YnhvowzyJurgen English MD Work Phone: 1(838)[address]08-26-2024 10:18-0400Body kdudrm36.89 kgJuregn English MD Work Phone: [phone]08-26-2024 10:18-0400Diastolic blood qcpqvvna85 mm[Hg]Jurgen English MD Work Phone: [phone] [place], [place] 1362508-26-2024 10:18-0400Heart rate 99 /minJurgen English MD Work Phone: 1([phone])367-[address] [place], [place] 1362508-26-2024 10:18-7395LoA8% (BldA) [Mass fraction]99 %Jurgen English MD Work Phone: [facility]08-26-2024 10:18-0400Systolic blood haxkwmxd015 mm[Hg]Jurgen English MD Work Phone: [facility]03-02-2020 14:27-0500BMI (Body Mass Index)35.43 kg/n4MofyydfsDown East Community Hospital, PG52-64-1138 14:27-0500 Body Lhuzhehlerr44.59 [degF][facility], AM30-08-6315 14:27-0500Body boylba30.72 kgDown East Community Hospital, EW17-31-3639 14:27-0500BP Wozeeipae13 mm[Hg][facility], YI63-48-4179 14:27-0500BP Pnjlzkzf538 mm[Hg][facility], OP75-88-1818 14:27-5853Eozfhr580 cmDown East Community Hospital, RH35-26-6581 14:27-0500 Pulse Gftfduta89 %[facility], [place] Encounters Encounter DateEncounter TypeCare ProviderFacilityStart: 07-22-2025 End: 12-25-0987Jvyvwujls to same day surgery [facility] Work Phone: Start: 07-22-2025 End: 28-93-3417znqicfyzweHytippllAnurag GeeFacility:[facility] Hospitaltart: 07-15-2025 End: 07-31-8415ZwwhznDarryl Peralta NP Work Phone: [facility] HospitalComment on above:Transient neurological symptoms (Primary Dx); Dysarthria; BOGDAN (obstructive sleep apnea); HypersomniaStart: 07-07-2025 End: 62-58-8297oirpjoebdwNVPNC KAMPFERNot AvailableStart: 06-29-2025 End: 99-06-5419Dxjnvb-up encounterSkenton Peralta QI SPECIALIST Work Phone: NOMission Bay campusComment on above: Comprehensive metabolic panel, CBC and differential, Ferritin, Additional followed-up results: 4Start: 06-26-2025 End: 67-48-8888Gdmksq flowsChad Peralta QI SPECIALIST Work Phone: [facility] MedicineStart: 06-26-2025 End: 71-95-0267Omydrk flowsheetSkenton Peralta QI SPECIALIST Work Phone: [facility] MedicineStart: 06-26-2025 End: 23-42-8981Ixortp outpatient visit 25 minutesSalety Peralta QI SPECIALIST Work Phone: NOMission [facility] campusComment on above:Restless leg syndrome (Primary Dx); Dysarthria; Transient neurological symptomsStart: 06-26-2025 End: 65-19-0329jifkcyvalfAQOYL EMILIANOUZIELNot AvailableStart: 06-10-2025 End: 43-69-4249djhyetjgwdEETJSDJV G HOHMANProMedica Saint Elizabeth Community Hospitaltart: 06-10-2025 End: 92-59-2180Tsnzzho encounter procedureTemporary Fibroscan-[facility]ive [facility] Work Phone: Start: 06-10-2025 End: 45-56-7908ijyagddlarFmfigveiAnurag Gee MD Work Phone: [facility] Work Phone: Comment on above:Hyperlipidemia, unspecified hyperlipidemia type (Primary Dx)Start: 13-80-8406Jkt-patient / Non-visitTico Amador MD-[facility] Work Phone: Start: 05-27-2025 End: 18-15-9472myjlelnqkpCyjazgdsAnurag Gee MD Work Phone: [facility] Work Phone: Start: 05-27-2025 End: 51-85-3991Svmsnyx encounter Avtar Valentino APRTexas [facility] Hospital Work Phone: Start: 05-22-2025 End: 05-57-9269Dydfaz Natali Gee MD Work Phone: [facility] Innovation CenterComment on above:Hepatic steatosis (Primary Dx)Start: 05-21-2025 End: 34-48-1884Npvmth-up encounterJo-Ann Gee MD Work Phone: [facility] Innovation CenterComment on above:US LIVER Start: 05-21-2025 End: 90-52-9092tcnynxkfvvNCAHK KAMPFERNot AvailableStart: 05-13-2025 End: 94-05-2987Vgmhcnxfd encounterCathy [facility] Medication ManagementStart: 05-12-2025 End: 08-24-8472Eukecj Jewell Peralta QI SPECIALIST Work Phone: [facility] Innovation CenterComment on above:Elevated liver enzymes (Primary Dx); Hepatic steatosisBipolar affective disorder, remission status unspecified (HCC) (Primary Dx)Start: 05-08-2025 End: 11-09-6815Mbiauo flowsChad Peralta QI SPECIALIST Work Phone: [facility] MedicineStart: 05-08-2025 End: 62-10-4325Zhekmw Keli Peralta QI SPECIALIST Work Phone: [facility] MedicineStart: 05-08-2025 End: 19-44-4531Pkchoul encounter Jorge Luis Peralta QI SPECIALIST Work Phone: [facility] Innovation CenterComment on above:Encounter for wellness examination (Primary Dx); Obstructive sleep apnea syndrome; Mixed hyperlipidemia ; Bipolar affective disorder, remission status unspecified (HCC); Obesity, Class II, BMI 35-39.9; Vitamin D deficiency; Nasal congestion; Moderate persistent asthma without complication (HCC); Intractable migraine without aura and without status migrainosus ; Gastroesophageal reflux disease without esophagitis; Hepatic steatosis; Spondylosis of cervical spineStart: 05-08-2025 End: 17-60-9149Ebcejzk encounter statusDorcas Peralta QI SPECIALIST Work Phone: [facility] Work Phone: Start: 05-08-2025 End: 90-04-4310stdwzohprhJNXGN KAMPFERNot AvailableStart: 05-05-2025 End: 27-76-9157UbwvbaTwdepgdPaloma Richards Physicians CardiologyComment on above:Med RefillStart: 04-28-2025 End: 99-28-5643Xgbuyf outpatient visit 15 minutesSteven A Rusher DPM Work Phone: [facility] [place] PodiatryComment on above:Dermatophytosis of nail (Primary Dx); Dystrophic nail; Pain around toenail, right foot; Pain around toenail, left footStart: 04-28-2025 End: 96-53-0822vfvvwauaipAOLLHS A RUSHERNot AvailableStart: 04-28-2025 End: 71-97-2807Tuoezu flowsheetSteven A Rusher DPM Work Phone: n[facility] [place] PodiatryStart: 04-28-2025 End: 16-53-0232Oeaeny flowsheetSteven A Rusher DPM Work Phone: [facility] [place] PodiatryStart: 03-28-2025 End: 77-90-7307EnryeoInfzh Kampfer QI SPECIALIST Work Phone: noms FNR FMComment on above:TremorStart: 03-10-2025 End: 27-21-8012EbbbkqIoblu Kampfer QI SPECIALIST Work Phone: noms POPULATION HEALTHComment on above: Gastroesophageal reflux disease without esophagitisStart: 03-02-2025 End: 74-15-0025brqpqstttoTjrfycn Vytautas Giedraitis MDFacility:PM Chris Start: 02-06-2025 End: 70-29-3347Bqzkmjroya Peralta QI SPECIALIST Work Phone: NOMS FNR FMStart: 02-06-2025 End: 85-58-4399Wxfpvf flowsChad Peralta QI SPECIALIST Work Phone: NOM[facility] FNR FMStart: 02-06-2025 End: 08-08-8778gkjchoseedMVMAT KAMPFERNot AvailableStart: 02-06-2025 End: 51-38-1435Vndcbn outpatient visit 25 minutesDorcas Peralta QI SPECIALIST Work Phone: NOMS FNR FMComment on above:Obstructive sleep apnea syndrome (Primary Dx); Obesity, Class II, BMI 35-39.9; Chronic bilateral low back pain without sciaticaStart: 80-06-6318ajnrwohxfcLhtkr Sue Weihrauch PA-CFacility:[facility] MainStart: 01-26-2025 End: 17-38-6838kbztlufzelQQDORI A RUSHERNot AvailableStart: 01-26-2025 End: 76-12-1465Bqsbzg flowsheetSteven A Rusher DPM Work Phone: NOMS PODIATRYStart: 01-26-2025 End: 77-89-1083Ubppqh flowsheetSteven A Rusher DPM Work Phone: noMS PODIATRYStart: 12-22-2024 End: 79-13-0965hsdvurteykGdiasCaitlyn Sparrow MDFacility:PM BellevueStart: 12-08-2024 End: 69-46-6410mxbluoeekaUaosgpr Vivek Radford MDFacility:PM Chris Start: 11-24-2024 End: 37-72-8242Grwkhp OnlyCeleste Dhaliwal APRN-AYUSH Work Phone: [facility] CardiologyStart: 11-03-2024 End: 04-56-6575TpivafZtubfl Burel ECOLOGICAL RISK ASSESSOR Work Phone: NOMS POPULATION HEALTHComment on above:Obstructive sleep apnea syndromeStart: 10-27-2024 End: 52-48-0042Gscteu outpatient visit 15 minutesSteven A Rusher DPM Work Phone: noms PODIATRYComment on above:Dermatophytosis of nail (Primary Dx); Dystrophic nail; Pain around toenail, right foot; Pain around toenail, left footStart: 10-27-2024 End: 36-19-1223rgpipgsbbiIKIXOK A RUSHERNot AvailableStart: 10-27-2024 End: 01-58-4445Mldzlo flowsheetSteven A Rusher DPM Work Phone: NOOB PODIATRYStart: 10-27-2024 End: 47-47-1321Zkkpes flowsheetSteven A Rusher DPM Work Phone: noms PODIATRYStart: 10-13-2024 End: 87-01-8720vmovcghtajSseyyhiSana Radford MDFacility:[facility] [place] Start: 09-22-2024 End: 01-16-6626Obyjlr OnlyDorcas Peralta NP Work Phone: N[facility] FNR FMComment on above:Obstructive sleep apnea syndromeStart: 09-20-2024 End: 66-25-1432JglkquBlwxwxcv Hohman MD Work Phone: NOM[facility] FNR FMComment on above:Tremor (Primary Dx)Start: 09-15-2024 End: 32-12-6074Xegmvn Keli Peralta NP Work Phone: N[facility] FNR FMStart: 09-15-2024 End: 29-10-7200Rjlvpv Keli Peralta QI SPECIALIST Work Phone: NOMS FNR FMStart: 09-15-2024 End: 18-11-5398uixutzsynvJOQDT M SCHERMERHORSt. Rita's Hospitaltart: 09-15-2024 End: 22-48-7855Cscssc outpatient visit 25 Talha Peralta NP Work Phone: NOMS FNR FMComment on above:Morbid (severe) obesity due to excess calories (CMS/HCC) (Primary Dx); BOGDAN (obstructive sleep apnea); Hepatic steatosis; Mixed hyperlipidemia (CMS/HCC); Elevated liver enzymesStart: 09-01-2024 End: 61-24-7620kqimyitdlbAwapsqhAshlee Radford MDFacility:[facility] Start: 08-13-2024 End: 20-69-5272reylznxuejVrxunMark ROOTCFacility:[facility] EastStart: 08-04-2024 End: 39-58-1654Yqsglz outpatient new 30 minutesSteven A Rusher DPM Work Phone: [facility] PODIATRYComment on above:Tinea pedis of both feet (Primary Dx); Chronic dermatitis of feet; Dermatophytosis of nail; Pain around toenail, right foot; Pain around toenail, left footStart: 08-04-2024 End: 16-44-9938hslcstvsfgOCQOOH A RUSHERNot AvailableStart: 08-04-2024 End: 79-45-4898Cjtuib flowsheetSteven A Rusher DPM Work Phone: [facility] PODIATRYStart: 08-04-2024 End: 10-55-5268Waecla flowsheetSteven A Rusher DPM Work Phone: [facility] PODIATRYStart: 07-04-2024 End: 65-97-7429jojtbeqiuhZMLTGIWYMemorial Hermann–Texas Medical Centertart: 06-16-2024 End: 57-29-8648Bnqkzv Keli Peralta QI SPECIALIST Work Phone: [facility] FNR FMStart: 06-16-2024 End: 71-42-4059Tgfsmuroya Peralta QI SPECIALIST Work Phone: [facility] FNR FMStart: 06-16-2024 End: 17-00-7424Paookr outpatient visit 25 minutesSalety Peralta QI SPECIALIST Work Phone: noms FNR FMComment on above:Morbid (severe) obesity due to excess calories (CMS/HCC) (Primary Dx); Bipolar disorder in full remission, most recent episode unspecified type ([facility]); Mixed dyslipidemia ([facility])Start: 06-09-2024 End: 17-68-8806Drchdhyud encounterSpawel Black Physicians CardiologyComment on above:Cholesterol labsStart: 05-26-2024 End: 85-97-9767UfkjfmEiqpiy Burel ECOLOGICAL RISK ASSESSOR Work Phone: noms POPULATION HEALTHComment on above: Gastroesophageal reflux disease without esophagitisRash (Primary Dx); Obesity, Class II, BMI 35-39.9Start: 05-23-2024 End: 15-99-3315Zvhmio outpatient visit 25 minutesSalety Peralta QI SPECIALIST Work Phone: NOMS FNR FMComment on above:Folliculitis (Primary Dx); Obesity, Class II, BMI 35-39.9; Morbid (severe) obesity due to excess calories ([facility]); Gastro-esophageal reflux disease without esophagitis; Body mass index (BMI) 39.0-39.9, adult; Bipolar disorder, unspecified ([facility])Start: 05-22-2024 End: 38-36-5463Cpnwbq Jewell Peralta QI SPECIALIST Work Phone: NOMS FNR FMComment on above:Dermatitis (Primary Dx) Start: 05-14-2024 End: 05-11-8129Iecdiq flowsChad Peralta QI SPECIALIST Work Phone: [facility] FNR FMStart: 05-14-2024 End: 20-85-6046Urdjhe Keli Peralta QI SPECIALIST Work Phone: [facility]S FNR FMStart: 05-14-2024 End: 55-77-4743Rukqps outpatient new 45 minutesSalety Peralta NP Work Phone: NOMS FNR FMComment on above:Obesity, Class II, BMI 35- 39.9 (Primary Dx); Encounter to establish careStart: 05-05-2024 End: 26-37-3157Pjwgws outpatient new 45 minutesGage Webb DO Work Phone: [facility] Physicians CardiologyComment on above: Hypertriglyceridemia (Primary Dx); Sinus tachycardia; Chest pain, unspecified type; Palpitation; Vapes nicotine containing substanceStart: 05-02-2024 End: 84-94-9527Anpmd abstractingScanning Provider ExternalProMedica Physicians CardiologyStart: 41-57-8420HrdxxuKfoeif N Rudolph MD Work Phone: NeurologyComment on above:Refill RequestStart: 02-69-7108VerbmrJacipv N Rudolph MD Work Phone: NeurologyComment on above:Refill RequestStart: 75-79-4319htblfsgsapPP MUNIRA S KUMARFacility:I7Lzoxy: 07-11-2022 End: 75-25-8207iqnpniuespJN MUNIRA S KUMARFacility:B6Xnama: 22-96-0078GX Get Medical AdviceRaymond Medina MD Work Phone: NeurologyComment on above:Med refillStart: 03-08-2022 End: 87-30-4923trhzjbwfqrIB CAITLYN Tunde SCHERMERHORNFacility:H0Krmco: 02-23-2022 End: 22-12-6586cifrmkqufxBjjwsu [facility] Other [employer] Other Start: 80-74-0818Zkwuoizmc encounterAnupam [facility] PsychiatryStart: 25-81-3068WneecrEkfiez N Rudolph MD Work Phone: NeurologyComment on above:Refill RequestStart: 01-04-2022 End: 34-65-5752kkriqeeywrRjhuwr [facility] Other [employer] Other Start: 91-58-0179Iquxevygu encounterAnupam [facility] PsychiatryStart: 12-12-2021 End: 22-33-9527nazdylthlpFooqau [facility] Other [employer] Other start: 66-57-1202Yfaarfjjh encounterAnupam [facility] PsychiatryStart: 11-30-2021 End: 75-11-2944zlackzpmswUL MUNIRA S KUMARFacility:I2Cxtwv: 11-16-2021 End: 04-32-2234cgnaufgcxgXbwgjm [facility] Other [facility] [employer] Other Start: 29-70-0840Tqydhgtas encounterAnupam [facility] PsychiatryStart: 54-65-1149Jwghqoaki for preprocedural laboratory examinationDR MUNIRA S KUMARThe Campbell HospitalStart: 10-11-2021 End: 79-36-4016xcapxvdhhoWO MUNIRA S KUMARFacility:F3Ynrii: 10-07-2021 End: 12-24-3867xrwenrrmxjJJ CAITLYN Griffiths SCHERMERHORNFacility:A4Iclqd: 10-07-2021 End: 74-72-9173Xjonxliqr for preprocedural laboratory examinationDR CAITLYN Griffiths SCHERMERHORNFacility:N1Gqggn: 10-04-2021 End: 37-33-3216chozwwsoygYB MUNIRA S KUMARFacility:R2Ifluk: 10-03-2021 End: 79-01-5935hublkfsmlqTS CAITLYN Griffiths SCHERMERHORNFacility:J7Fuxit: 09-15-2021 End: 64-03-5634cfvqbhggbqPNJC SOLISFacility:Z6Jkedb: 08-03-2021 End: 59-27-7068prsbiimbqpHwudct [facility] Other [place] [employer] Other Start: 60-32-7504Belvssovu encounterAnupam [facility] PsychiatryStart: 07-28-2021 End: 18-11-7662iwvwtriydtNebjqr [facility] Other [place] [employer] Other Start: 90-86-1731Jkowsrrhl encounterAnupam [facility] PsychiatryStart: 11-10-2019 End: 43-64-9907Qjxzwdq encounter procedureBRADLEY ValdezGrays Harbor Community Hospitaltart: 11-10-2019 End: 42-33-4273Dnqlnmsciv hospital visit by physicianBradley Simmons Work Phone: [facility]ia ClinicComment on above:Arrived Procedures DateProcedureProcedure DetailPerforming ClinicianStart: 06-08-0382Gesmkxbwcz elastography of liverJennifer Ty Gee MD Work Phone: Start: 00-44-6447TQIVTI COVID-19/FLUDorcas Peralta NP Work Phone: Start: 01-97-3509Mwyva depression screening assessment Raymond Medina MD Work Phone: Plan of Treatment DateCare ActivityDetailAuthorStart: 21-13-4213Jbjfvcid Vaccine (1 of 2)Shingles Vaccine (1 of 2)[place]: 08-29-2026Medicare Annual Wellness (AWV)Medicare Annual Wellness (AWV)[facility] HealthcareStart: 68-06-9247Htsdujbhd vaccinationInfluenza Vaccine (#1)[facility] HealthcareComment on above:Postponed from 05/11/2025 (Patient Refused)Start: 12-16-2025 End: 08-62-6612Vwrreshq Mfraezl3012/16/2025 11:30 AM EDT Clinical Support [facility] Medication Management [address] [place] [address] YkxDeurrsCoshocton Regional Medical Center - Pharmacy Medication ManagementStart: 12-09-2025 End: 63-59-0797Kgvdd 1996 panel - Serum or PlasmaLipid profile Lab Routine Hyperlipidemia, unspecified hyperlipidemia type Expected: 12/09/2025 (Appr oximate), Expires: 06/10/2026[facility] Work Phone: Comment on above:Expected: 12/09/2025 (Approximate), Expires: 06/10/2026Start: 12-09-2025 End: 44-94-1569Ahigc panelLiver panel Lab Routine Hyperlipidemia, unspecified hyperlipidemia type Expected: 12/09/2025 (Approximate), Expires: 06/10/2026 [facility]ica Health SystemComment on above:Expected: 12/09/2025 (Approximate), Expires: 06/10/2026Start: 60-29-9401mvmqujrlxaBlonucdediObyngqtn:[facility] Start: 07-29-2025 End: 28-98-7345Hlvvwmb encounter fylviepuw84/19/2025 1:15 PM EST Office Visit [facility] [place] [facility] [address] [place] [address] Sherie Maria DPM [address] [place] [address] [facility] [place] PodiatryStart: 74-38-6865MwymgnuspHolzer Hospital Start: 79-47-6887Dbxbftanzq guidance for needle biopsyUS needle biopsyOhioHealth Hardin Memorial Hospitaltart: 07-15-2025 End: 72-96-6677GwxzujlzfffkqfzLlwmhiikdhcjyel Sleep [facility] Routine BOGDAN (obstructive sleep apnea) Hypersomnia Expected: 07/15/2025(Approximate), Expires: 07/15/2026[facility] Work Phone: Comment on above:Expected: 07/15/2025 (Approximate), Expires: 07/15/2026Start: 06-26-2025 End: 10-32-1564GCR W Auto Differential panel - BloodCBC and differential Lab Routine Restless leg syndrome Dysarthria Transient neurological symptoms Ex pected: 06/26/2025 (Approximate), Expires: 06/26/2026[facility] HealthcareComment on above:Expected: 06/26/2025 (Approximate), Expires: 06/26/2026Start: 06-26-2025 End: 62-72-1010Qetkxundf (Vitamin B12) [Mass/volume] in Serum or PlasmaVitamin B12 Lab Routine Restless leg syndrome Dysarthria Transient neurological symptoms Expected: 06/26/2025 (Approximate), Expires: 06/26/2026NOTN HealthcareComment on above:Expected: 06/26/2025 (Approximate), Expires: 06/26/2026Start: 06-26-2025 End: 81-73-1824Dyuakaziszdiv metabolic 2000 panel - Serum or PlasmaComprehensive metabolic panel Lab Routine Restless leg syndrome Dysarthria Transient neurological symptoms Expected: 06/26/2025 (Approximate), Expires: 06/26/2026 [facility] Work Phone: Comment on above:Expected: 06/26/2025 (Approximate), Expires: 06/26/2026Start: 06-26-2025 End: 56-77-3519Bbnedyxo [Mass/volume] in Serum or PlasmaFerritin Lab Routine Restless leg syndrome Dysarthria Transient neurological symptoms Expected: 06/10 (Approximate), Expires: 06/26/2026NO HealthcareComment on above: Expected: 06/26/2025 (Approximate), Expires: 06/26/2026Start: 06-26-2025 End: 40-14-1194Yllkmukdg [Mass/volume] in Serum or PlasmaMagnesium Lab Routine Restless leg syndrome Dysarthria Transient neurological symptoms Expected: (Approximate), Expires: 06/26/2026 HealthcareComment on above: Expected: 06/26/2025 (Approximate), Expires: 06/26/2026Start: 06-26-2025 End: 74-16-4158MJ Brain WO contrastMR brain wo contrast Imaging Routine Dysarthria Transient neurological symptoms Expected: 06/26/2025, Expires: 06/26/2026NO HealthcareComment on above:Expected: 06/26/2025, Expires: 06/26/2026Start: 06-26-2025 End: 29-02-5511EOV W/REFLEX TO FT4TSH W/REFLEX TO FT4 Lab Routine Restless leg syndrome Dysarthria Transient neurological symptoms Expected: 06/26/2025 (Approximate), Expires: 06/26/2026NO HealthcareComment on above:Expected: 06/26/2025 (Approximate), Expires: 06/26/2026Start: 06-26-2025 End: 68-21-0594Gxayism encounter vkuuynqgi45/17/2025 1:30 PM EDT Office Visit [facility] [address] [place] [address] Kathryn DorcasKOBE quintanilla [address] [place] [id number] ArrivedHCA Florida Capital HospitalComment on above:Arrived Start: 37-87-9022Zrtgilllq vaccinationMissouri Delta Medical CenterComment on above:Postponed from 05/11/2024 (Patient Refused)Postponed from 05/11/2025 (Patient Refused) Start: 99-84-0352Gaepw smooth muscle IgG Ab [Units/volume] in SerumOhioHealth Hardin Memorial Hospitaltart: 36-13-0615Oifzcvuwjmueb [Mass/volume] in Serum or PlasmaOhioHealth Hardin Memorial Hospitaltart: 83-38-0083Wabotdixx A virus Ab [Presence] in Serum by ImmunoassayOhioHealth Hardin Memorial Hospitaltart: 41-20-5134Alvzpqgrk A virus antibody, IgM typeHolzer Hospital Start: 83-65-5763Kpxjenntp B core antibody measurementOhioHealth Hardin Memorial Hospitaltart: 60-59-3687Gwispnnij B core antibody measurement, IgM typeOhioHealth Hardin Memorial Hospitaltart: 26-18-5463Ufhkpremn B virus surface Ab [Presence] in SerumOhioHealth Hardin Memorial Hospitaltart: 20-38-6026OeP [Mass/volume] in Serum or PlasmaOhioHealth Hardin Memorial Hospitaltart: 55-02-6900Firhmhioxlr a [Moles/volume] in Serum or PlasmaOhioHealth Hardin Memorial Hospitaltart: 14-85-4855Uynvksjmcrzt M2 IgG Ab [Units/volume] in SerumOhioHealth Hardin Memorial Hospitaltart: 10-80-1932LpnsslvujOhioHealth Hardin Memorial Hospitaltart: 43-19-7722Aidsh BMI ScreeningAdult BMI ScreeningProBerger Hospital SystemStart: 24-39-1470Pnrnhsp ScreeningTobacco ScreeningProBerger Hospital SystemStart: 05-12-2025 End: 81-23-6057EP Abdomen limitedUS abdomen limited Imaging Routine Elevated liver enzymes Hepatic steatosis Expected: 05/12/2025, Expires: 05/12/2026[facility] Work Phone: Comment on above:Expected: 05/12/2025, Expires: 05/12/2026Start: 31-76-2931VPMQE-19 Vaccine ( season)COVID-19 Vaccine ()[facility]herrington HospitalFlavourly ebridge SystemStart: 63-00-2072Mnavlychb vaccinationMissouri Delta Medical CenterStart: 05-08-2025 End: 969216-pspponmdwjdvyq D3 [Mass/volume] in Serum or PlasmaVitamin D 25 hydroxy Lab Routine Encounter for wellness examination Vitamin D deficiency Expected: 05/08/2025 (Approximate), Expires: 05/08/2026[facility] HealthcareComment on above:Expected: 05/08/2025 (Approximate), Expires: 05/08/2026Start: 05-08-2025 End: 62-78-4356Btffnnffnpkmh metabolic 2000 panel - Serum or PlasmaComprehensive metabolic panel Lab Routine Encounter for wellness examination Obesity, Class II, URK81-03.9 Expected: 05/08/2025 (Approximate), Expires: 05/08/2026[facility] Work Phone: Comment on above:Expected: 05/08/2025 (Approximate), Expires: 05/08/2026Start: 05-08-2025 End: 61-71-5503Bgraj 1996 panel - Serum or PlasmaLipid panel Lab Routine Encounter for wellness examination Mixed hyperlipidemia Obesity, Class II, BMI 35-39.9 Expected: 05/08/2025 (Approximate), Expires: 05/08/2026[facility] Comment on above:Expected: 05/08/2025 (Approximate), Expires: 05/08/2026Start: 05-08-2025 End: 87-42-2939XIC W/REFLEX TO FT4TSH W/REFLEX TO FT4 Lab Routine Encounter for wellness examination Obesity, Class II, BMI 35-39.9 Expected: 05/08/2025 (Approximate), Expires: 08/29/2026[facility] HealthcareComment on above:Expected: 05/08/2025 (Approximate), Expires: 05/08/2026Start: 05-08-2025 End: 77-86-7166Geusymu encounter procedureNOMS FNR FMComment on above:Arrived Start: 49-99-2644Fwnsl BMI ScreeningAdult BMI ScreeningMercy Health Lorain Hospital Start: 56-64-9667Lrnrdqb ScreeningTobacco ScreeningKettering Health Miamisburg SystemStart: 04-28-2025 End: 10-43-1545Xuexdqo encounter procedureNOMS FH PODIATRYComment on above: ArrivedStart: 77-51-7594Hpich BMI ScreeningAdult BMI ScreeningNovant Health Forsyth Medical Centertart: 18-81-9311Raazdvv ScreeningTobacco ScreeningMercy Health Lorain Hospital Start: 01-26-2025 End: 68-48-4950Wlasvym encounter procedureNOMS FH PODIATRYComment on above: ArrivedStart: 12-15-2024 End: 97-31-5935Quoalhm encounter swztdlbef45/07/2025 11:00 AM EDT Office Visit [facility] [address] [place] [phone] Dorcas Peralta NP [address] [place] [address] N[facility] FNR FMStart: 03-01-2025Medicare Annual Wellness (AWV)Medicare Annual Wellness (AWV)[facility] HealthcareStart: 10-27-2024 End: 73-84-9844Bpinvhm encounter procedureNOMS FH PODIATRYComment on above: ArrivedStart: 09-15-2024 End: 94-81-9440Amfbnjz encounter axcylbuvz69/06/2025 11:00 AM EST Office Visit [facility] [address] [place] [address] Dorcas Peralta NP [address] [place] [address] N[facility] FNR FMStart: 09-08-2024 End: 63-43-4267Gfsioby aminotransferase [Enzymatic activity/volume] in Serum or PlasmaALT Lab Routine Medication monitoring encounter Other hyperlipidemia Elevated triglycerides with high cholesterol Elevated LDL cholesterol level Severe obesity (BMI 35.0-39.9) with comorbidity (CMS-HCC) Other fatigue Expected: 09/08/2024 (Approximate), Expires: 06/09/2025[facility] Comment on above:Expected: 09/08/2024 (Approximate), Expires: 06/09/2025Start: 09-08-2024 End: 93-90-3677Kkehibrxb aminotransferase [Enzymatic activity/volume] in Serum or PlasmaAST Lab Routine Medication monitoring encounter Other hyperlipidemia Elevated triglycerides with high cholesterol Elevated LDL cholesterol level Severe obesity (BMI 35.0-39.9) with comorbidity (CMS-HCC) Other fatigue Expected: 09/08/2024 (Approximate), Expires: 06/09/2025[facility] Comment on above:Expected: 09/08/2024 (Approximate), Expires: 06/09/2025Start: 09-08-2024 End: 92-66-1397Cefkztlfvud in LDL [Mass/volume] in Serum or PlasmaLDL cholesterol, direct Lab Routine Medication monitoring encounter Other hyperlipidemia Elevated triglycerides with high cholesterol Elevated LDL cholesterol level Severe obesity (BMI 35.0-39.9) with comorbidity (CMS-HCC) Other fatigue Expected: 09/08/2024 (Approximate), Expires: 06/09/2025[facility] HospitalWummelkiste Work Phone: Comment on above:Expected: 09/08/2024 (Approximate), Expires: 06/09/2025Start: 09-08-2024 End: 43-32-2791Glqyqjckgrep [Mass/volume] in Serum or PlasmaTriglycerides Lab Routine Medication monitoring encounter Other hyperlipidemia Elevated triglycerides with high cholesterol Elevated LDL cholesterol level Severe obesity (BMI 35.0-39.9) with comorbidity (CMS-HCC) Other fatigue Expected: 09/08/2024 (Approximate), Expires: 06/09/2025[facility] CenterQR Pharma SystemComment on above:Expected: 09/08/2024 (Approximate), Expires: 06/09/2025Start: 08-04-2024 End: 61-96-3566Wyeyhso encounter amzoooazf26/25/2024 3:30 PM EST Office Visit [facility] [address] [place] [address] Sherie Maria, DPM [address] [place] [address] ArrivedNOMS PODIATRYComment on above:ArrivedStart: 06-16-2024 End: 43-42-9915Gzwgsnx encounter procedureNOMS FNR FMComment on above:Arrived Start: 05-14-2024 End: 32-63-5619Idubnxj encounter luqkbtxop31/04/2024 11:30 AM EDT Office Visit [facility] [address] [place] [address] Dorcas Peralta NP [address] [place] [address] ArrivedNOTN FNR FMComment on above:ArrivedStart: 95-65-1013URBQL-19 Vaccine ( season)COVID-19 Vaccine ( season)[facility] Start: 08-88-2466YONIL-19 Vaccine ( season)COVID-19 Vaccine ()[facility] SystemStart: 16-91-6122Kmrtfypns vaccinationNOTN HealthcareStart: 05-05-2024 End: 22-02-0638Juye complete W/O contrastEcho complete W/O contrast Echocardiography Routine Chest pain, unspecified type Expected: 05/05/2024, Expires: 05/05/2025[facility] SystemComment on above:Expected: 05/05/2024, Expires: 05/05/2025Start: 05-05-2024 End: 03-35-7217Ilanzpyu stress test studyStress test (exercise only) Cardiac Services Routine Chest pain, unspecified type Expected: 05/05/2024, Expires: 05/05/2025ProBer[facility] Hospital SystemComment on above:Expected: 05/05/2024, Expires: 05/05/2025Start: 05-05-2024 End: 24-34-2786Bktwwsj encounter eeggwygew37/26/2024 10:30 AM EDT Office Visit [facility] [address] [place] [address] Gage Webb, [address] [place] [address] Jurgen English MD [address] [place] [address] [facility] CardiologyStart: 82-25-3732WBNDG-19 Vaccine ()COVID-19 Vaccine ()[facility] SystemStart: 36-29-6018Ekjzjaxzq vaccinationPeoples Hospitaltart: 72-14-7182Jzhdo depression screening assessmentDEPRESSION SCREENING [facility] Hospitaltart: 19-99-7755ADKAXRNRKW ASSESSMENTDEPRESSION ASSESSMENT [facility] Hospitaltart: 53-55-4180Nqdoymvpa vaccinationPeoples Hospitaltart: 03-29-2020 End: 02-20-8755Pydwyvzyzul24/20/2020 Appointment General Surgery Bradley Simmons MD [address] [place], [place] [id number] [facility] ClinicStart: 29-06-2868Pvwpbbned vaccinationFlu vaccine (#1)[facility]: 85-35-3622EGL TESTINGHPV TESTINGPeoples Hospitaltart: 07-72-0854Joacihsde for malignant neoplasm of cervixPeoples Hospitaltart: 36-80-4160RZI Vaccines (1 - 3-dose SCDM series)HPV Vaccines (1 - 3-dose SCDM series)[facility] CenterStart: 33-97-8250Odlozcew cancer screenCervical cancer screenWhite Hospital: 11-30-7228MEY TESTINGPAP TESTINGPeoples Hospitaltart: 51-38-9199Ewksthbhl for malignant neoplasm of cervixPeoples Hospitaltart: 69-88-4596Wxsnwwadu A Vaccines (1 of 2 - Risk 2-dose series) Hepatitis A Vaccines (1 of 2 - Risk 2-dose series)[facility] CenterStart: 27-58-7808Noxbxygifzyu Vaccine: Pediatrics (0 to 5 Years) and At-Risk Patients (6 to 64 Years) (1 of 2 - PCV)Pneumococcal Vaccine: Pediatrics (0 to 5 Years) and At-Risk Patients (6 to 64 Years) (1 of 2 - PCV)[facility] CenterStart: 17-83-6353Fkrxl microalbumin profileDTAP,TDAP,TD (1 - Tdap)[facility] Start: 41-99-0572Odrfi BMI Follow Up PlanAdult BMI Follow Up PlanNovant Health Forsyth Medical Centertart: 53-04-0256DGXEDNZIP C SCREENINGHEPATITIS C SCREENING [facility]tart: 47-32-9738Fwveikiao C screeningHepatitis C Screening [facility]tart: 20-57-1524UVU SCREENINGHIV SCREENINGGlenbeigh Hospital Start: 41-30-1352XYH screeningHIV ScreeningPeoples Hospitaltart: 82-88-7356FJR screenHIV screenWhite Hospital: 79-44-6967Oobetuj of varicella vaccinationVaricella Vaccines (1 of 2 - 13+ 2-dose series)[facility] CenterStart: 11-68-7118Evwsaeubfj ScreeningDepression ScreeningNovant Health Forsyth Medical Centertart: 33-21-3918TMvL,Tdap and Td Vaccines (6 - Tdap)DTaP,Tdap and Td Vaccines (6 - Tdap)[facility] SystemStart: 44-18-0108GKeC/Tdap/Td Vaccines (6 - Tdap) DTaP/Tdap/Td Vaccines (6 - Tdap)[facility] CenterStart: 35-55-2185Axeqv microalbumin profileDTaP,Tdap,Td Vaccine (6 - Tdap)[facility]: 87-95-0565FFaC/Tdap/Td vaccine (1 - Tdap)DTaP/Tdap/Td vaccine (1 - Tdap)[facility]: 46-06-4633BSHIE-19 VACCINE (1)COVID-19 VACCINE (1)[facility] Hospitaltart: 02-09-4254Pspdgccle vaccine (1 of 2 - 2-dose childhood series) Varicella vaccine (1 of 2 - 2-dose childhood series)[facility]: 15-29-8355PLJSX-19 VACCINE (#1)COVID-19 VACCINE (#1)[facility]: 15-65-5739ETAZCOVTE B (1 of 3 - 3-dose series)HEPATITIS B (1 of 3 - 3-dose series)[facility] Hospitaltart: 1986Medicare Annual Wellness (AWV)Medicare Annual Wellness (AWV)[facility] HealthcareStart: 12-00-1306Xlutjjh CounselingTobacco CounselingMercy Health Lorain HospitalAlanine aminotransferase [Enzymatic activity/volume] in Serum or PlasmaALT Lab Routine Dermatophytosis of nail Ordered: 04/28/2025[facility] Work Phone: Comment on above:Ordered: 04/28/2025lpha 1 antitrypsin [Mass/volume] in Serum or PlasmaHolzer Hospital Alpha 1 antitrypsin phenotyping [Identifier] in Serum or Plasma by ImmunofixationHolzer HospitalAspartate aminotransferase [Enzymatic activity/volume] in Serum or PlasmaAST Lab Routine Dermatophytosis of nail Ordered: 04/28/2025[facility] CenterComment on above:Ordered: 04/28/2025 Calculated LDL cholesterol levelHolzer Hospital Cholesterol.total/Cholesterol in HDL [Mass Ratio] in Serum or PlasmaHolzer Hospital End: 23-49-2878Fbdinlm function 1999 panel - Serum or PlasmaHepatic function panel Lab Routine Hypertriglyceridemia 1 Occurrences starting 05/05/2024 until 05/05/2025[facility] HospitalComment on above:1 Occurrences starting 05/05/2024 until 05/05/2025Hepatitis B virus surface Ag [Presence] in Serum or Plasma by ImmunoassayHolzer HospitalHepatitis C virus IgG Ab [Presence] in Serum or Plasma by ImmunoassayHolzer HospitalHFE gene mutations found [Identifier] in Blood or Tissue by Molecular genetics method NominalHolzer HospitalHomogenous nuclear Ab pattern [Titer] in SerumHolzer Hospital End: 20-57-7058Blsvk 1995 panel - Serum or PlasmaLipid profile Lab Routine Hypertriglyceridemia 1 Occurrences starting 05/05/2024 until 05/05/2025[facility] Work Phone: Comment on above:1 Occurrences starting 05/05/2024 until 05/05/2025Nuclear Ab [Titer] in [facility] Patient EducationCritical Access Hospital Liver Biopsy Discharge Instructions Know your Meds [facility] Work Phone: Tissue transglutaminase IgA Ab [Units/volume] in Holzer HospitalTissue transglutaminase IgG Ab [Units/volume] in [facility] HospitalVLDL cholesterol measurementHolzer Hospital Immunizations Immunization DateImmunizationNotesCare GtnwusraNfovlugg32-38-8751Aagrwpcbz, injectable, [place] Canine Kidney, quadrivalent with preservativeSarah Kampfer QI SPECIALIST Work Phone: [facility] CenterEsbejxxnvd94-20-1417gumlpzgog virus vaccine, unspecified formulationJurgen English MD Work Phone: [facility] HospitalCjfbcw16-40-8754Qjqffinkx, injectable, [place] Canine Kidney, preservative free, quadrivalentSarah Kampfer QI SPECIALIST Work Phone: [facility] CenterFdzwioqyyr54-04-0135fbsozokgm, injectable, quadrivalent, preservative freeSarah Kampfer QI SPECIALIST Work Phone: [facility] CenterJpxvjpumda10-82-4779aksuridko, injectable, quadrivalent, contains preservativeSarah Kampfer QI SPECIALIST Work Phone: [facility] CenterHnqovfwatm94-15-5286pgabjvquo virus vaccine, unspecified formulationRaymond Medina MD Work Phone: [facility] HospitalStkpnb41-51-5493luhuxukyd B vaccine, pediatric or pediatric/adolescent dosageSarah Kampfer QI SPECIALIST Work Phone: [facility] CenterDgtsriaura72-08-8173bgvntwelx B vaccine, pediatric or pediatric/adolescent dosageSarah Kampfer QI SPECIALIST Work Phone: [facility] CenterExouvpnyrx95-55-1681MX(adult) unspecified formulationSarah Kampfer QI SPECIALIST Work Phone: [phone] CenterFjoxqbfjos50-45-4178gdvpbvfno B vaccine, pediatric or pediatric/adolescent dosageSara Emilianopfer QI SPECIALIST Work Phone: [phone] [place], [place] [address]Nmnfdfpptu99-92-3985qtspwui, mumps and rubella virus vaccineSarah Kampfer QI SPECIALIST Work Phone: [phone] [address] StreetJnuvhbfklh10-04-0004epwkwrnltv, tetanus toxoids and pertussis vaccineSarah Kampfer QI SPECIALIST Work Phone: [phone] [address] StreetMdiuctqifh94-05-1522ghmpcwd, mumps and rubella virus vaccineSarah Kampfer QI SPECIALIST Work Phone: [phone] Reese StreetHffoooeitq44-30-8478vilipzhia poliovirus vaccine, live, oralSarah Kampfer QI SPECIALIST Work Phone: [phone] [address] StreetBgfrtjurow81-39-2562dynhqnyjkt, tetanus toxoids and pertussis vaccineSarah Kampfer QI SPECIALIST Work Phone: [phone] [place], [place] [address]Fljbpqnutc63-98-9738humlcucbt poliovirus vaccine, live, oralSarah Kampfer QI SPECIALIST Work Phone: [phone] [place], [place] [address]Fhezfkurjy68-29-4067ewxcairjtm, tetanus toxoids and pertussis vaccineSarah Kampfer QI SPECIALIST Work Phone: [phone] [place], [place] [address]Hkgrawnuyz10-22-1864suqebhmyi poliovirus vaccine, live, oralSarah Kampfer QI SPECIALIST Work Phone: [phone] Reese StreetPazvtjuywy97-28-4004wvszubsdyr, tetanus toxoids and pertussis vaccineSarah Kampfer QI SPECIALIST Work Phone: [phone] Reese StreetZtrjsjpbau90-07-1233wetpdbidp poliovirus vaccine, live, oralSarah Kampfer QI SPECIALIST Work Phone: [phone] [place] [address] Payers DatePayer CategoryPayerPolicy [id number]-pay2025Medicare HMOAETNA MEDICARE Member Subscriber Plan / Payer (Effective 2024-Present) Name: Marita Messina Relation to Subscriber: Self Name: Marita Messina Payer ID: 1 (NAIC) Type: Not on file Address: [address] [place] [id number] Private Health Bazdsfhlb06-15-6286Yzbvgdo Health [id number] 2019MedicaidMEDICAID [facility] MEDICAID [id number] 2019-Present [phone] [address] [place] [address] [id number] 2019Medicaid [id number] 2019MedicareMEDICARE MEDICARE A AND B [id number] 2019-Present [phone] [address] [place], [place] [address] [id number] [id number]. Medicare1.2.840.227932.1.13.159.2.7.3.409119.315 2015MedicaidMEDICAID [place] J[place] xxxxxxxxxxxx 2014-Present [phone] [address] [place], [place] [id number] [id number] 2015MedicareMEDICARE MEDICARE PART A AND B xxxxxxxxxxx 2014-Present [phone] [address] [place], [place]vfgxaweakzd 1.2.840.225587.1.13.239.2.7.3.483[id number] 2.16.840.1.854831.3.579.2.27970-99-1541Dqpxerf2302832 2.16.840.1.565466.3.579.2.00977-52-5210Vverbob1244408 2.16840.1.239727.3.579.2.95183-95-2784Ygidftd3722702 2.16840.1.973907.3.579.2.85064-43-5322Rvpivca7951058 2.840.1.190610.3.579.2.28595-52-0492Znhuxqb2930396 2.840.1.336685.3.579.2.49013-50-8192Smhsqpw3742340 2.840.1.969080.3.579.2.6[id number] 2.840.1.815767.3.579.2.69519-09-2859Usemysi4259410 2.840.1.312021.3.579.2.64050-69-9434Vnbdlqo6734857 2.840.1.796825.3.57[id number] 2.16840.1.335256.3.579.[id number] 2.840.1.910002.3.579.2.58702-54-5105Mhsgjtt669562010 2.16840.1.490984.3.579.2.10894-07-5728Jnxamva925708347 2.16840.1.507956.3.579.2.8[id number] 2.16.840.1.879577.3.57[id number] 2.16840.1.460071.3.579.2.72987-74-4692Yzecsun688139326 2.16840.1.506815.3.57[id number] 2.840.1.812547.3.579.2.[id number] 2..1.669507.3.579.2.327527-37-3257Wsqjlut278708945 2..1.030021.3.579.2.095402-14-5259Esrqtvd750593176 2..1.150495.3.579.2.579730-28-6567Uchobyu00851926 2.840.1.070640.3.579.2.484292-03-0191Fsdofpj49128228 2.0.1.083070.3.579.2.527656-04-3258Gdnjxty63392696 2.840.1.019196.3.579.2.523313-78-4022Emhlmui60630477 2.840.1.802108.3.579.2.015222-62-2778Wkfwori67440801 2.840.1.151933.3.579.2.459543-01-1008Lyztdwa46966370 2.840.1.635208.3.579.2.437055-27-3478Hrtjwbw4945637 2.840.1.666023.3.579.2.255482-37-6010Ufyexcx9577157 2.16.840.1.480448.3.579.2.814542-47-0075Ddpwzuu0061330 2..0.1.545846.3.579.2.678897-87-6877Xldeiza5721089 2.16.840.1.686639.3.579.2.965039-76-9479Bpffnpq7247390 2.0.1.195651.3.579.2.1259 [id number] 1959Medicare [id number] 2.16840.1.2498[id number] 2.840.1.906024.3.579.2.531 Social History DateTypeDetailFacilityStart: 11-25-2018 End: 07-09-0791Qgbtngc smoking status NHISNever smokerPeoples Hospitaltart: 11-10-2019 End: 85-11-4679Kvhrwdt intakeCurrent drinker of alcohol (finding)[facility]: 06-28-0696Uudfhjn CommentsLake City Hospital [facility]: 12-52-0441Gsw Assigned At BirthNot on [facility]: 11-25-2018 End: 73-73-6522Lrtcztw use and exposureSmokeless tobacco non-userCincinnati ClinicStart: 43-67-2554Jnmoglh SDOH Alcohol CommentsocialCincinnati ClinicStart: 04-21-2019 End: 30-68-8614Ntf Assigned At BirthCincinnati ClinicStart: 04-21-2019 End: 36-10-0817Hnjkctd of Social functionPeoples Hospitaltart: 01-29-5947Zzimn Depression Screening Wijosizxpe5Fkiigqmsg ClinicStart: 05-14-2024 End: 57-47-9331Imffjji smoking status NHISSmokes tobacco dailyNOMS Healthcare Start: 73-71-8343Qlowymp CommentVapes dailyNOMS HealthcareStart: 09-04-2024 Alcohol Commentcaffeine intake: 12 oz coffee dailyNOMS HealthcareTobacco smoking status NHISTobacco smoking consumption unknownNOMS HealthcareDo you belong to any clubs or organizations such as worship groups, unions, fraternal or athletic groups, or [...] Smoking Tobacco: Every Day Vaping/E-cigarettes Smokeless Tobacco: NeverKettering Health Miamisburg SystemStart: 65-44-0089Xzwflnn Comment sociallyProBerger Hospital SystemStart: 68-04-6522YhqPrnrtz (finding)[facility] SystemStart: 57-35-5199Kid Assigned At [facility] Medical Equipment Procedure CodeEquipment CodeEquipment Original TextEquipment IdentifierDatesMesh o Vntrl [facility] 8.6cm [facility] [id number] - Sn/A - [id number] Start: 04-01-2019 Goals DatePatient GoalDesired Activity/State Functional Status CwwgZniugogefmPvangfPnsymwjb04-47-3610Eqojkzi Health Questionnaire 2 item (PHQ- 2) [Reported][facility] CenterQuxwhrctnn08-84-7344Cuoocdt Health Questionnaire 2 item (PHQ- 2) [Reported][facility] CenterAqgfvwqirv62-27-9846XMO-7 quick depression assessment panel [Reported.PHQ][facility] CenterBodlxcorxa15-48-5379Vzgfvsgplxt anxiety disorder 7 item (TIMOTHY-7)[facility] Clinical Notes 09-15-2021 to 06-26-2025 Note Date & DlddUeeuGinrhrtv09-95-6164 History of Present illness Narrative* Dorcas Peralta, QI SPECIALIST - 06/26/2025 1:30 PM EDT Images from [...] MG capsule LORazepam (Ativan) 0.5 MG tablet Tenaha-3 Fatty Acids (FISH OIL OMEGA-3 PO) traZODone (Desyrel) 50 MG tablet documented in this encounterMissouri Delta Medical CenterOohoqynzwm73-24-1107 History of Present illness Narrative* Felix Hurt [facility] - 06/10/2025 11:00 AM EDT Images from the original note were not included. [facility] - PHARMACY MEDICATION MANAGEMENT [address] [facility] [address] Subjective SUBJECTIVE: Referring Provider: Dr Long Smith [...] with current regimen, and follow up with [facility] clinic for lipid management for further [...] and just today [facility] GI provider [facility] had her do Lipid Panel and LFTs again today - results not in CareEverywhere yet Pertinent current HYPERLIPIDEMIA medications include: Repatha 140mg P5ajjcj *Zepbound 12.5mg Qweek Pertinent previous HYPERLIPIDEMIA medications include (*With Date & Reason why stopped): Fish Oil 1000mg, 2 caps BID - pt stopped November 2024 d/t 1000mg capsules too big to swallow DIET Since starting Zepbound about 5-6 months ago, pt has been eating less, eating healthier, and decreasing weight EXERCISE: Pt has been walking at the [facility] 3-4x/week, and has plans to continue walking [...] and it's effective PLAN: Continue Repatha 140mg Z1uuxrm Buy Fish Oil 500mg, smaller capsules, and take 2 caps (1g) QD, then will assess TGs again in 6 months FOLLOW UP: Labs due in 6 months Rhyd-ye-gjes visit: 4.8.26 - Felix Hurt [facility] 06/10/25 10:01 AM 30 minute sbnt-ij-ywcn initial Felix Hurt [facility] 06/10/25 1142 documented in this encounterMer[facility]09-17-2025 Evaluation note* Diagnosis Onset Date Resolution Status Admit Date Elevated LFTs acuteSept2024 8:35amFatty liveracuteSept2024 8:35am HyperlipidemiaacuteSept2024 8:35amObesity (BMI 30-39.9)acute May 27, 2025 8:35am [facility] Work Phone: 1(818) 840-589009-03-2025 Miscellaneous Notes* Telephone Encounter - Dee Webb MA - 05/13/2025 8:53 AM EDT [facility] - PHARMACY MEDICATION MANAGEMENT [address] [place] [address] New referral received by [facility] Medication Management for hyperlipidemia. Patient was contacted to schedule appointment at [facility] Medication Management [place] ([facility]). This wasmy first attempt to reach the patient and a message was left on their voicemail requesting a call back. Patient will be asked to bring [facility] Additional Info: Medication List. Referral was added to spreadsheet. Referring provider: Jurgen English MD documented in this encounterMercy Health Lor[facility]09-03-2025 Telephone encounter Note* Telephone Encounter - Dee Webb MA - 05/13/2025 8:53 AM EDT [facility] - PHARMACY MEDICATION MANAGEMENT [address] [facility] [address] New referral received by [facility] Medication Management for hyperlipidemia. Patient was contacted to schedule appointment at [facility] Medication Management [place] ([facility]). This wasmy first attempt to reach the patient and a message was left on their voicemail requesting a call back. Patient will be asked to bring [facility] Additional Info: Medication List. Referral was added to spreadsheet. Referring provider: Jurgen English MD [facility]08-29-2025 History of Present illness Narrative* Dorcas [...] with her neurologist, Dr. Andrade, at the [facility]. She is currently on Zepbound. She continues to use her inhalers and experiences asthma flare-ups approximately every 6 weeks, each lasting about 3 days. She is not currently under the care of a wrecking mechanic. She is currently on Repatha and has had her labs drawn once since starting this medication. She hasannual check-ups with her eye doctor and had a dental visit 2 months ago. Her reflux symptoms are well-managed with daily omeprazole. 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 She has an upcoming appointment with her dietetic aide who has requested a liver enzyme test [...] Do you have a medical power of stock dealer?: No Over the past 2 weeks, how [...] solution auto-injector ketoconazole (NIZOral) 2 % shampoo Tenaha-3 Fatty Acids (FISH OIL OMEGA-3 PO) --- [...] for independence. Livingwill and durable power of stock dealer reviewed. Updated patient problem list and reviewed [...] to see pain management. documented in this encounterMissouri Delta Medical CenterGwujeohbkr47-31-6336 History of Present illness Narrative* Sherie Maria, [...] (six) hours if needed, Disp: , Rfl: Tenaha-3 Fatty Acids (FISH OIL OMEGA-3 PO), Take [...] understanding. Sherie Maria DPM documented in this [facility]08-19-2025 Instructions* Patient Instructions* Sherie Maria DPM - 04/28/2025 4:00 PM EDT As noted documented in this [facility]05-30-2025 History of Present illness Narrative* Dorcas Peralta [...] tablet 1 tablet, Every 6 hours PRN Tenaha-3 Fatty Acids (FISH OIL OMEGA-3 PO) 2 [...] pain management as scheduled documented in this encounterMissouri Delta Medical CenterJjologqlkw74-58-0787 History of Present illness Narrative* Sherie Maria [...] (six) hours if needed, Disp: , Rfl: Tenaha-3 Fatty Acids (FISH OIL OMEGA-3 PO), Take [...] Sherie Maria DPM documented in this encounterNOMS Apthsaqfwo17-29-6142 Instructions* Patient Instructions* Sherie Maria DPM - 10/27/2024 4:15 PM EST Topical care measures as noted documented in this [facility]01-06-2025 History of Present illness Narrative* Dorcas Peralta [...] have her cholesterol levels checked tomorrow. Her case investigator has expressed concern over her fluctuating liver enzyme levels and has ordered a retest. She has not undergone any extensive workup for her liver, only lab tests. Her liver enzyme levels have shown variability in the past. She is uncertain if she has fatty liver disease. She has been prescribed a moldovan for a toenail fungus, which has proven [...] tablet 1 tablet, Every 6 hours PRN Tenaha-3 Fatty Acids (FISH OIL OMEGA-3 PO) 2 [...] is agreeable to this. documented in this encounterMissouri Delta Medical CenterFfoquqvskn71-71-9367 NotePatient Education Materials Name: MayuriMarita mariscal Current Date: 08/11/2024 16:18:15 [facility] : 1985 The following sheet(s) are the [...] breast self-exam (BSE). These experts include the [place] and the [place] [employer]nec[employer]. Some experts [...] This means they are not cancer. ? 4072-9911 The [employer]. All rights reserved. This information is not [...] prevent urine, gas, or stool leakage. ? 4649-3811 The CN[employer]. All rights reserved. This information is not intended as a substitute fo (more content not included)...[facility]11-25-2024 History of Present illness Narrative* Sherie Maria, JOSE - 08/04/2024 3:30 PM EST Subjective Patient ID: Marita Messina is a 39 y.o. female who presents for Fungus (Pt is here today for fungal nails, first noticed about 1 yr ago. Also athlete's foot BL. She has tried OTC topical fungal moldovan, no change noted. /SS:8 ). HPI Initial [...] and not practical. Patient typically has toenail moldovan on a constant basis. Also complains of [...] (six) hours if needed, Disp: , Rfl: Tenaha-3 Fatty Acids (FISH OIL OMEGA-3 PO), Take [...] most recent hepatic enzymes elevated (May 2024). Couch agreement to proceed with topical care measures: [...] understanding. Sherie Maria DPM documented in this [facility]11-25-2024 Instructions* Patient Instructions* Sherie Maria DPM - 08/04/2024 3:30 PM EST As noted documented in this [facility]10-07-2024 History of Present illness Narrative* Dorcas Peralta [...] 1 tablet, Oral, Every 6 hours PRN Tenaha-3 Fatty Acids (FISH OIL OMEGA-3 PO) 2 [...] PCAB accredited and rated highly by the [employer]. Prescription sent to pharmacy Bipolar disorder in full remission, most recent episode unspecified type (CMS/HCC) -Followed by psych Mixed dyslipidemia (CMS/HCC) -Followed by cardiology documented in this encounterMissouri Delta Medical CenterMjfyufletq42-27-1226 Miscellaneous Notes* Telephone Encounter - Marita Richardson RN - 06/09/2024 3:12 PM EDT Images from the original note were not included. Pt called back as she stated that received a msg from re: her recent cholesterol labs. Reviewed recent cholesterol labs and result notes/orders from [place] as charted below: Jennifer Zamora, Cheryl 06/09/2024 [...] Pt verbalized understanding and was agreeable to [place]'s orders/'s recommendations. Pt requested that script for Repatha be sent to [facility] in [place] and stated that she will get the Fish Oil OTC. Above orders routed to the [place] to sign and send.-SRS documented in this encounterMercy Health [facility]09-30-2024 Telephone encounter Note* Telephone Encounter - Marita Richardson RN - 06/09/2024 3:12 PM EDT Images from the original note were not included. Pt called back as she stated that received a msg from re: her recent cholesterol labs. Reviewed recent cholesterol labs and result notes/orders from [place] as charted below: Jennifer Zamora PharmD 06/09/2024 2:05 PM EDT Back to [facility] [place] per [place] for pt to start repatha 140mg sc [...] 8:20 AM EDT MD Adam Cruz RN Ri Adam, can you please refer patient to lipid clinic for education and assistance managing hyperlipidemia. Thanks! Pt verbalized understanding and was agreeable to [place]'s orders/'s recommendations. Pt requested that script for Repatha be sent to [facility] in [place] and stated that she will get the Fish Oil OTC. Above orders routed to the [place] to sign and send.-SRS [facility] Efxtrv50-21-6552 History of Present illness Narrative* Dorcas Peralta [...] Bipolar disorder, unspecified (CMS/HCC) documented in this [facility]09-12-2024 History of Present illness Narrative* Dorcas Peralta NP - 05/22/2024 9:40 AM EDT klo documented in this [facility]09-04-2024 History of Present illness Narrative* Dorcas Peralta NP - 05/14/2024 11:30 AM EDT Marita Messina is a 38 y.o. female presents with chief complaint of Establish Care and Weight Loss HPI: HPI Presents to the office to [facility] care. She has gained a lot of [...] prescription to be refilled. documented in this encounterMissouri Delta Medical CenterVdyirpbbrc52-45-1753 History of Present illness Narrative* Jurgen English [...] Chief Complaint Patient presents with New Patient QI SPECIALIST ER FMH, SINUS TACHY, NO PREVIOUS CARDIO, [...] Obstructive sleep apnea hypopnea, mild Pulmonary embolism ([facility]) history of , approx 2013 Sleep apnea Visual impairment contacts, glasses No data recorded No data recorded No data recorded Past Surgical History: Procedure Laterality Date DENTAL SURGERY wisdom teeth HERNIA REPAIR HYSTERECTOMY PARTIAL LASER ABLATION CONDYLOMA CERVICAL / VULVAR REPAIR HERNIA INCISIONAL VENTRAL MESH N/A 04/01/2019 Performed by Luis A Gr DO at [facility] Family History Problem Relation [...] Sinus tachycardia - [facility] [place], [place] 2. Chest pain, unspecified type - [facility] [place] [place] - Stress test (exercise only); Future - Echo complete W/O contrast; Future 3. Palpitation - [facility] [place], [place] 4. Hypertriglyceridemia - Lipid profile; Future [...] SPARROW MD Referring Physician: Caitlyn Sparrow MD [address] [place] [address] documented in this encounterMer[facility]11-30-2023 Miscellaneous Notes* Telephone Encounter - Ashtyn Perez MA - 08/09/2023 7:55 AM EST Please see pended medication. Pharmacy linked. Last ordered 03/09/2023. Ashtyn Perez MA documented in [facility]06-[facility]23 Miscellaneous Notes* Telephone Encounter - Ashtyn Perez MA - 03/09/2023 1:58 PM EDT Please see pended medication. Pharmacy linked. Last ordered 10/25/2022. Ashtyn Perez MA documented in this encounterG[facility]11-[facility]-2022 NoteCONSULTATION PROCEDURE DATE: 07/11/2022 PREOPERATIVE DIAGNOSIS: Spasming [...] will be followed up in the office.The Madison HealthMfgpvlpe96-42-2661 NoteCONSULTATION CONSULTATION DATE: 07/11/2022 CHIEF COMPLAINT: Trapezius and upper back pain. HISTORY OF PRESENT ILLNESS: This is a 36-year-old female who is known to the Pain Clinic. The patient, in October of this year, had a rhizotomy radiofrequency ablation along her cervical spine. This has afforded the patient significant improvement. 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 CC: Caitlyn Sparrow M.D.The [facility] HealthOvzoqwrk91-38-0987 Miscellaneous Notes * Telephone Encounter - Ashtyn Ana Bazzi - 05/23/2022 7:35 AM EDT Please see pended medication. Pharmacy linked. Last ordered 10/20/2021. Ashtyn Perez Ma documented in this encounterGlenbeigh Hospital06-29-2022 NoteCONSULTATION CONSULTATION DATE: 03/08/2022 HISTORY OF PRESENT [...] and Approved by: LUDA RODRIGUEZ . 03/09/2022 13:38:00[facility]05-02-2022 Miscellaneous Notes* Telephone Encounter - Ashtyn Perez Ma - 01/09/2022 9:24 AM EDT Please see pended medication. Pharmacy linked. Last ordered 07/05/2021. Ashtyn Perez Ma documented in this encounterGlenbeigh Hospital03-23-2022 NoteCONSULTATION PAIN MANAGEMENT CONSULTATION HISTORY OF PRESENT [...] Approved by: LUDA RODRIGUEZ . 12/01/2021 12:26:00The Madison HealthVegnrboi23-24-7738 NoteThe [place], [place] NAME: MARITA MESSINA DATE OF : MEDICAL REC#: [id number] SAND CUTTER: [address] ADMIT DATE: 09/15/2021 12:21:00 ENTERPRISE ARCHITECT MANAGER DATE: 09/16/2021 11:00 DICTATING PHYSICIAN: LUDA [...] Electronically Authenticated and Edited by: Luda Rodriguez [facility] on 09/25/2021 11:[address] [facility] Signed and Approved by: LUDA RODRIGUEZ . 09/25/2021 23:23:00[facility]* Diagnosis Excessive physiologic tremor Essential and other specified forms of tremor documented in this encounter [facility] noteNo [employer] Other Evaluation note* Diagnosis Daytime sleepiness Narcolepsy without cataplexy documented in this encounter [facility]* Diagnosis Daytime sleepiness Narcolepsy without cataplexy documented in this encounter [facility]* Diagnosis Daytime sleepiness Narcolepsy without cataplexy documented in this encounter [facility]* Diagnosis Morbid (severe) obesity due to [...] index (BMI) 39.0-39.9, adult Bipolar disorder, unspecified ([facility]) Bipolar disorder, unspecified documented in [...] level Severe obesity (BMI 35.0-39.9) with comorbidity ([facility]) Other fatigue documented in this encounter [facility] [...] unspecified (HCC)- Primary documented in this encounter [facility] HealthcareEvaluation note* Diagnosis Encounter for wellness examination- [...] nonalcoholic liver disease documented in this encounter [facility] HealthcareEvaluation note* Diagnosis Onset Date Resolution Status Admit Date Fatty liver acuteSeptember 2024 8:35am [facility] Work Phone: Evaluation note* Diagnosis Hyperlipidemia, unspecified hyperlipidemia type- Primary documented in this encounter [facility]Evaluation [facility]* Diagnosis Encounter for wellness examination- [...] Transient neurological symptoms documented in this encounter [facility] HealthcareEvaluation note* Diagnosis Encounter for wellness [...] encounter [facility] HealthcareEvaluation note* Diagnosis Encounter for wellness [...] Health SystemInstructionsNot on filedocumented in this encounterProMedila ebridge SystemInstructionsNot on filedocumented in this encounterProBerger Hospital System InstructionsNot on filedocumented in this encounterProBerger Hospital System InstructionsNot on filedocumented in this encounterProUniversity Hospitals Elyria Medical CenterQR Pharma System InstructionsNot on filedocumented in this encounterKettering Health Miamisburg SystemReason for referral (narrative)No reason for referral information availableMercy Health [facility] Work Phone: Summary Purpose Family History Relationship Condition Age at Onset Recorded Date/T kwadwo father Diabetes mellitus Unknown HypertensionUnknownDepressionUnknownFamily history of mental disorderUnknown Advance Directives TypeDate RecordedPatient RepresentativeExplanationAdvance Directives and Living WillPower of Pressing Machine Tender Advance Directive Response Recorded Date/ Time Advance Directives No May 11:27am Advance Directive Response Recorded Date/ Time Advance Directives No May 10:27am History of Present Illness * Bradley Simmons MD - 11/10/2019 2:00 PM EST [facility] PATIENT NAME: Marita Messina MRN NUMBER: [id number] DATE OF : 1985 PHONE NUMBER: [phone] PRIMARY CARE PHYSICIAN: No primary care provider [...] other week [facility] History: Past Surgical History: Procedure Laterality Date HERNIA REPAIR a year had repair above belly button at [facility] HERNIA REPAIR umbilical and above belly buton also at [facility] about 2 years ago HYSTERECTOMY TUMOR REMOVAL Left 2012 left thumb at [facility] Family History: Family History Problem [...] CT scan reports and images from the [facility] [employer] system E HR from May 2019 and [...] contrast Amador, Jurgen, MD [address] [place] [address] Referral IDStatusReasonStnew rochelle DateExpiration DateVisits RequestedVisits [id number] / ProceduresReferred By ContactReferred To Contact Diagnoses Chest pain, unspecified type Procedures Stress test (exercise only) Jurgen English MD [address] [place] [address] Referral IDStatusReasonBuckley DateExpiration DateVisits RequestedVisits [id number] Review/ Chief Complaint and Reason for Visit [...] section and content) DATE CREATED AUTHOR 05/31/2019 [facility] DATE CREATED AUTHOR AUTHOR'S ORGANIZ ATION 11/11/2019 [facility] DATE CREATED AUTHOR AUTHOR'S ORGANIZ ATION 12/01/2021 [facility] DATE CREATED AUTHOR AUTHOR'S ORGANIZ ATION 09/02/2022 [facility] DATE CREATED AUTHOR AUTHOR'S ORGANIZ ATION 04/11/2025 [facility] DATE CREATED AUTHOR AUTHOR'S ORGANIZ ATION 06/15/2025 [facility] DATE CREATED AUTHOR AUTHOR'S ORGANIZ ATION 07/12/2025 [facility] DATE CREATED AUTHOR AUTHOR'S ORGANIZ ATION 07/23/2025 [facility] Source Comments (unrecognize d section and content) In the event this informatio n is protected by the Federal Confidentiality of Alcohol and Drug Abuse Patient Records regulations: The Federal rules restrict any use of the information to criminally investigate or prosecute any alcohol or drug abuse patient.[facility] HospitalIn the event this information is protected by the Federal Confidentiality of Alcohol and Drug Abuse Patient Records regulations: The Federal rules restrict any use of the information to criminally investigate or prosecute any alcohol or drug abuse patient.[facility] HospitalIn the event this information is protected by the Federal Confidentiality of Alcohol and Drug Abuse Patient Records regulations: The Federal rules restrict any use of the information to criminally investigate or prosecute any alcohol or drug abuse patient.[facility] HospitalIn the event this information is protected by the Federal Confidentiality of Alcohol and Drug Abuse Patient Records regulations: The Federal rules restrict any use of the information to criminally investigate or prosecute any alcohol or drug abuse patient.[facility] Reason for Visit (unrecogniz ed section and content) ReasonOnset DateCommentsRefill Scldpcn77/02/2022ReasonOnset DateCommentsRefill Atjxzjx6303/09/2023ReasonOnset DateCommentsRefill Pibagyr3908/09/2023ReasonComments Follow-upReasonCommentsFungusPt is here today for fungal nails, first noticed about 1 yr ago. Also athlete's foot BL. She has tried OTC topical fungal moldovan, no change noted. SS:8ReasonCommentsRashReasonOnset DateCommentsMed Refill 4ReasonCommentsEstablish CareWeight LossReasonCommentsWeight Check ReasonOnset DateCommentsMed Moookk0309/20/2024ReasonCommentsNew PatientNP ER [facility], SINUS TACHY, NO PREVIOUS CARDIO, SCHED W/PTSpecialtyDiagnoses / Procedures Referred By ContactReferred To ContactCardiology Diagnoses Sinus tachycardia Chest pain, unspecified type Palpitation Gage Webb, DO [address] [place] [address] [facility] [address] [id number] Referral IDStatusReasonStart DateExpiration DateVisits RequestedVisits [id number] Review Specialty Services Required 1ReasonOnset DateCommentsCholesterol labs4Reason CommentsFungusEstablished pt presents today for fuv of fungal nails. Pt states she does not think the formula 7 is working very well, especially with the RGT. Pt states she is getting blood work done tomorrow for the possibility of getting terbinafine medication.ReasonOnset DateCommentsMed Zpcmpm9811/03/2024Reason CommentsMed RefillReasonCommentsFungusEstablished patient presents today for 3 month fungal nail fuv. Patient continues to use formula 7 and listerine. Patient reports improvement in the appearance in her nails, states RGT is worst.Reason Onset DateCommentsMed Dmmrby6705/05/2025ReasonCommentsFollow-upMedicare Annual Wellness Visit InitialReasonOnset DateCommentsMed Qhmuxe5205/08/2025ReasonComments MTM Initial VisitReasonCommentsRestless Legs Care Teams (unrecognized sec tion and content) Team MemberRelationshipSpecialtyStart DateEnd Date Caitlyn Sparrow Amber [address] [place] [address] PCP - GeneralInternal Medicine11/25/18Team MemberRelationshipSpecialtyStart Date End Date Caitlyn Sparrow Amber [address] [place] [place] [address] PCP - GeneralInternal Medicine11/25/18Team MemberRelationshipSpecialtyStart Date End Date Caitlyn Sparrow Amber [address] [place] [address] PCP - GeneralInternal Medicine11/25/18Team MemberRelationshipSpecialtyStart Date End Date Caitlyn Sparrow [address] [place] [address] PCP - GeneralInternal Medicine11/25/18Team MemberRelationshipSpecialtyStart Date End Date Jo-Ann Gee MD [address] [place] [address] PCP - GeneralFamily Medicine05/09/24Team MemberRelationshipSpecialtyStart DateEnd Date Jo-Ann Gee MD [address] [place] [address] PCP - GeneralFamily Medicine05/09/24Team MemberRelationshipSpecialtyStart DateEnd Date Jo-Ann Gee MD [address] [place] [address] PCP - GeneralFamily Medicine05/09/24Team MemberRelationshipSpecialtyStart DateEnd Date Jo-Ann Gee MD [address] [place] [address] PCP - GeneralFamily Medicine05/09/24Team MemberRelationshipSpecialtyStart DateEnd Date Jo-Ann Gee MD [address] [place] [address] PCP - GeneralFamily Medicine05/09/24Team MemberRelationshipSpecialtyStart DateEnd Date Jo-Ann Gee MD [address] [place] [address] PCP - GeneralFamily Medicine05/09/24Team MemberRelationshipSpecialtyStart DateEnd Date Jo-Ann Gee MD [address] [place] [address] PCP - GeneralFamily Medicine05/09/24Team MemberRelationshipSpecialtyStart DateEnd Date Jo-Ann Gee MD [address] [place] [address] PCP - GeneralFamily Medicine05/09/24Team MemberRelationshipSpecialtyStart DateEnd Date Jo-Ann Gee MD [address] [place] [address] PCP - GeneralFamily Medicine05/09/24Team MemberRelationshipSpecialtyStart DateEnd Date Jo-Ann Gee MD [address] [place] [address] PCP - GeneralFamily Medicine05/09/24 Jo-Ann Gee MD [address] [place] [address] PCP - [employer]09/10/24Team MemberRelationshipSpecialtyStart DateEnd Date Jo-Ann Gee MD [address] [facility] [place] [address] PCP - GeneralFamily Medicine05/09/24 Jo-Ann Gee MD [address] [facility] [place] [address] PCP - [employer]09/10/24Team MemberRelationshipSpecialtyStart DateEnd Date Caitlyn Sparrow MD PCP - GeneralPediatric03/08/24Team MemberRelationshipSpecialtyStart DateEnd Date Caitlyn Sparrow MD PCP - GeneralPediatric03/08/24Team MemberRelationshipSpecialtyStart DateEnd Date Caitlyn Sparrow MD PCP - GeneralPediatric03/08/24Team MemberRelationshipSpecialtyStart DateEnd Date Jo-Ann Gee MD [address] [place] [address] PCP - GeneralFamily Medicine05/09/24 Jo-Ann Gee MD [address] [place] [address] PCP - [employer]09/10/24Team MemberRelationshipSpecialtyStart DateEnd Date Jo-Ann Gee MD [address] [place] [address] PCP - GeneralFamily Medicine05/09/24 Jo-Ann Gee MD [address] [place] [address] PCP - [employer]09/10/24Team MemberRelationshipSpecialtyStart DateEnd Date Jo-Ann Gee MD [address] [place] [address] PCP - GeneralFamily Qwnipznt74/11/24Team MemberRelationshipSpecialtyStart Date End Date Jo-Ann Gee MD [address] [place] [address] PCP - GeneralFamily Medicine05/09/24 Jo-Ann Gee MD [address] [place] [address] PCP - [employer]/10/04Team MemberRelationshipSpecialtyStart DateEnd Date Jo-Ann Gee MD [address] [place] [address] PCP - GeneralFamily Medicine05/09/24 Jo-Ann Gee MD [address] [place] [address] PCP - [employer]09/10/24 Dorcas Peralta NP [address] [place] [address] Nurse Practitionermily Medicine02/06/25Team MemberRelationshipSpecialtyStart DateEnd Jo-Ann Gee MD [address] [place] [address] PCP - GeneralFamily Medicine05/09/24 Jo-Ann Gee MD [address] [place] [address] PCP - [employer]09/10/24 Dorcas Peralta NP [address] [place] [address] Nurse Practitionermily Medicine02/06/25Team MemberRelationshipSpecialtyStart DateEnd Jo-Ann Gee MD [address] [place] [address] PCP - GeneralFamily Medicine05/09/24 Jo-Ann Gee MD [address] [place] [address] PCP - Aettraci09/10/24 Dorcas Peralta NP [address] [place] [address] Nurse PractitionerFamily Medicine02/06/25Team MemberRelationshipSpecialtyStart DateEnd Date Jo-Ann Gee MD [address] [place] [address] PCP - GeneralFamily Medicine05/09/24 Jo-Ann Gee MD [address] [place] [address] PCP - Aet09/10/24 Dorcas Peralta NP [address] [place] [address] Nurse PractitionerMercyone [facility] Centerly Medicine02/06/25Team MemberRelationshipSpecialtyStart DateEnd Date Jo-Ann Gee MD [address] [place] [address] PCP - GeneralFamily Rwozqioi41/11/24Team MemberRelationshipSpecialtyStart Date End Jo-Ann Gee MD [address] [place] [address] PCP - GeneralFamily Medicine05/09/24 Jo-Ann Gee MD [address] [place] [address] PCP - Aet09/10/24 Dorcas Peralta NP [address] [place] [address] Nurse Practitionermily Medicine02/06/25Team MemberRelationshipSpecialtyStart DateEnd Jo-Ann Gee MD [address] [place] [address] PCP - [facility] Medicine05/09/24 Jo-Ann Gee MD [address] [place] [address] PCP - [employer]09/10/24 Dorcas Peralta, QI SPECIALIST [address] [place] [address] Nurse PractitionerPeter [facility] Medicine02/06/25Team MemberRelationshipSpecialtyStart DateEnd Jo-Ann Gee MD [address] [place] [address] PCP - GeneralMercyone [facility] Centerly Medicine05/09/24 Jo-Ann Gee MD [address] [place] [address] PCP - [employer]09/10/24 Dorcas Peralta, KOBE [address] [place] [address] Nurse PractitionerPeter [facility] Medicine02/06/25Team MemberRelationshipSpecialtyStart DateEnd Jo-Ann Gee MD [address] [place] [address] PCP - GeneralPeter [facility] Medicine05/09/24 Jo-Ann Gee MD [address] [place] [address] PCP - [employer]09/10/24 Dorcas Peralta NP [address] [place] [address] Nurse PractitionerPeter [facility] Medicine02/06/25Team MemberRelationshipSpecialtyStart DateEnd Date Jo-Ann Gee MD [address] [place] [address] PCP - GeneralPeter [facility] Ccysarmz00/11/24Team MemberRelationshipSpecialtyStart Date End Date Jo-Ann Gee MD [address] [place] [address] PCP - GeneralPeter [facility] Medicine05/09/24 Jo-Ann Gee MD [address] [place] [address] PCP - [employer]09/10/24 Dorcas Peralta NP [address] [place] [address] Nurse PractitionerU[facility]02/06/25 Team Status: Active Member Role Status Dates [...] Jo-Ann Gee MD [address] [place] [address] PCP - GeneralFamily Knozvmcr57/11/24Team MemberRelationshipSpecialtyStart Date End Date Jo-Ann Gee MD [address] [place] [address] PCP - GeneralFamily Medicine05/09/24 Jo-Ann Gee MD [address] [place] [address] PCP - [employer]09/10/24 Dorcas Peralta NP [address] [place] [address] Nurse PractitionerFamily Medicine02/06/25Team MemberRelationshipSpecialtyStart DateEnd Date Jo-Ann Gee MD [address] [place] [address] PCP - GeneralFamily Medicine05/09/24 Jo-Ann Gee MD [address] [place] [address] PCP - [employer]09/10/24 Dorcas Peralta NP [address] [place] [address] Nurse PractitionerFamily Medicine02/06/25Team MemberRelationshipSpecialtyStart DateEnd Date Jo-Ann Gee MD [address] [place] [address] PCP - GeneralPeter [facility] Medicine05/09/24 Jo-Ann Gee MD [address] [facility] [place] [address] PCP - [employer]09/10/24 Dorcas Peralta NP [address] [facility] [place] [address] Nurse PractitionerPeter [facility] Medicine02/06/25Team MemberRelationshipSpecialtyStart DateEnd Jo-Ann Gee MD [address] [facility] [place] [address] PCP - GeneralPeter [facility] Medicine05/09/24 Jo-Ann Gee MD [address] [facility] [place] [address] PCP - Aet09/10/24 Dorcas Peralta NP [address] [facility] [place] [address] Nurse PractitionerU[facility]02/06/25 Team Status: Active Member Role/Relationship Status Dates [...] Grohe , APRNReferring ProviderActiveStart: June 10, 2025 Tioc Amador , MDAttending ProviderActiveStart: June 10, 2025 [...] BE BASED ON THE PRIMARY CLINICAL RECORDS. [employer] provides no warranty or guarantee of the accuracy or completeness of information in this document.
--- NOTE | 2025-08-12 11:32 | PM.CN ---
Consult Note: HPI Data of Consult Patient: known to practice within the last 3 years Requesting Physician: Michelle Randhawa NP Primary Care Provider: CAITLYN SPARROW Consult Narrative Reason for consult: low back and bilateral SIJ pain Narrative: Marita Messina a pleasant 40 year old female with chronic low back and SIJ pain unresponsive to > 6 weeks of PT, heat, ice, tylenol, NSAIDs. pt has hx of lumbar stenosis, lumbar facet arthropathy on prior imaging. at this time not able to take tylenol due to elevated liver enzymes, following with GI doctor. pt noting increasing bilateral sij pain. not finding benefit to celebrex. utilizing gabapentin 600mg bid and flexeril 10mg tid prn pain and spasms with benefit. pain today 6/10 pressure increasing to 10/10 with activity, standing, walking. mild improvement with heat and sitting, significant relief with lying down. cc:: CC: Michelle Randhawa NP Review of Systems ROS Musculoskeletal Reports: back pain PFSH PFSH Medical History Anxiety ?F41.9 - Anxiety disorder, unspecified (ICD-10) Hiatal hernia ?K44.9 - Diaphragmatic hernia without obstruction or gangrene (ICD-10) Acid reflux ?K21.9 - Gastro-esophageal reflux disease without esophagitis (ICD-10) Pulmonary embolism ?I26.99 - Other pulmonary embolism without acute cor pulmonale (ICD-10) Asthma ?J45.909 - Unspecified asthma, uncomplicated (ICD-10) Surgical History History of surgical removal of Bartholin’s gland cyst ?Z98.890 - Other specified postprocedural states (ICD-10) ?Z87.42 - Personal history of other diseases of the female genital tract (ICD-10) History of eye surgery ?Z98.890 - Other specified postprocedural states (ICD-10) Sherman teeth extracted ?K08.409 - Partial loss of teeth, unspecified cause, unspecified class (ICD-10) History of hernia repair ?Z98.890 - Other specified postprocedural states (ICD-10) ?Z87.19 - Personal history of other diseases of the digestive system (ICD-10) History of hysterectomy ?Z90.710 - Acquired absence of both cervix and uterus (ICD-10) Meds Home Medications and Allergies Home Medications ?Medication ?Instructions ?Recorded ?Confirmed ?Type albuterol sulfate 90 mcg/actuation 2 puff inhalation Q6H PRN 06/22/23 08/03/25 History aerosol inhaler shortness of breath or wheezing buspirone 15 mg tablet 15 mg PO BID 06/22/23 08/03/25 History cariprazine 3 mg capsule (Vraylar) 6 mg PO DAILY 06/22/23 08/03/25 History fluoxetine 40 mg capsule (Prozac) 40 mg PO DAILY 06/22/23 08/03/25 History omeprazole 20 mg capsule,delayed 40 mg PO BID 06/22/23 08/03/25 History release propranolol 20 mg tablet 20 mg PO Q12H 06/22/23 08/03/25 History rizatriptan 5 mg tablet 5 mg PO Q2H PRN migraine headache 06/22/23 08/03/25 History evolocumab 140 mg/mL subcutaneous 140 mg subcut 09/01/24 History syringe (Repatha Syringe) tirzepatide (weight loss) 2.5 2.5 mg subcut QWEEK 10/13/24 08/03/25 History mg/0.5 mL subcutaneous pen injector (Zepbound) cyclobenzaprine 10 mg tablet 10 mg PO TID PRN muscle spasm #90 02/11/25 08/03/25 Rx tabs gabapentin 600 mg tablet 600 mg PO BID #60 tabs 02/11/25 08/03/25 Rx cyclobenzaprine 10 mg tablet 10 mg PO BID PRN muscle spasm #60 06/25/25 08/03/25 Rx tabs ibuprofen 800 mg tablet 800 mg PO TID PRN pain #90 tabs 06/25/25 08/03/25 Rx gabapentin 600 mg tablet 600 mg PO BID #60 tabs 07/16/25 08/03/25 Rx celecoxib 100 mg capsule (Celebrex) 100 mg PO BID #60 caps 08/05/25 Rx Allergies Allergy/AdvReac Type Severity Reaction Status Date / Time hydrocodone (From Vicodin) Allergy Hives Verified 08/03/25 10:29 Exam Constitutional Documenting provider has reviewed patient's vital signs: yes Common normals: no apparent distress, oriented x3 and alert General appearance: cooperative HENMT Common normals: normocephalic, hearing grossly normal bilaterally and moist oral mucous membranes Head and scalp: normocephalic Eye Common normals: PERRL Pupil: PERRL Neck & C-Spine Common normals: full ROM General: normal visual inspection Chest Common normals: inspection of chest normal Respiratory Common normals: normal respiratory effort, no retractions and no use of accessory muscles Back & Pelvis Lumbar spine/lower back: ROM limited and pain with ROM Sacroiliac joints: SI joint(s) abnormal Other: bilateral sij positive boyd(patricks), gaenslens, thigh thrust, compression test Neuro Common normals: oriented x3 Sensorium/orientation: alert Psych Common normals: mental status grossly normal, thought process normal, cooperative, affect normal, speech normal and activity/motor behavior normal Speech: normal speech Thought process: normal thought process Results Additional Findings Additional findings: If on a controlled substance or opioids, I have checked an [place] report on this patient and there are no aberrancies noted in the prescribing history.??If on a controlled substance or opioid a drug screen was completed and reviewed within the last year, and if there has not been a drug screen completed we ordered one today to monitor higher risk, state monitored pain medication use. As part of providing excellent, safe, comprehensive care, the following was completed at our patient's visit: 1. A medication reconciliation and review to ensure accurate knowledge of current/active medications, including asking our patients to inform us about any hsvx-xht-rbwjelj medications or herbal remedies/nutritional supplements/alternative remedies. 2. A review to specifically ensure our patients have had annual screening for screening for depression, screening for tobacco use, and screening for unhealthy alcohol use. For concerning screenings had a discussion with the patient, provided patient education, and recommended follow-up with primary care provider when appropriate. If patient noted with a risk of falling, they received education on strength, gait, and balance training to prevent future risk of falling. Portions of this note may have been carried over from the previous visit and updated as appropriate. Please note this office utilizes paper charting in addition to the electronic medical record. A list of current medications, vitals, and PMH is available there as the clinical staff outside of myself do not have access to [employer] charting during the clinic day operations. As part of providing quality comprehensive care the current medications, vitals, and PMH were reviewed in the paper chart. Assessment and Plan Assessment and Plan (1) Sacroiliitis: (2) Lumbar stenosis with neurogenic claudication: (3) Chronic pain syndrome: Plan The patient has had over 3 months of moderate to severe low back and SIJ pain with functional impairment and inadequate response to conservative care including NSAIDS (unless there are contraindication such as concurrent blood thinners), multiple oral or topical pain medications, and home exercise program/physical therapy.? Patient has completed >6 weeks of guided home exercise program and/or formal physical therapy program without relief of their symptoms.? The Oswestry Disability Index was completed, and the patient scored a 34%.? repeat bilateral SIJ injection under fluoroscopy, prior injection provided at least 50% improvement greater than 3 months but has since worn off recommend pt f/u with pcp for workup of potential autoimmune conditions with diffuse intermittent pain flare ups. may have fibromyalgia as well dc celebrex, restart ibuprofen 800mg qid prn pain. take with food increase flexeril 10mg qid prn pain/spasms continue gabapentin 600mg bid f/u after injection
== END 2025-08-12 11:04 | disposition home or self-care (01) ==
LOC: PM 11:04
PROVIDERS: PCP Internal Medicine; Visit Provider Nurse Practitioner
DX: M46.1 Sacroiliitis, not elsewhere classified (principal); M48.062 Spinal stenosis, lumbar region with neurogenic claudication; G89.4 Chronic pain syndrome
CPT/HCPCS: G0463